=== PATIENT | female | born 1970 | race Caucasian/White ===

== ENCOUNTER 2019-10-26 15:12 | Outpatient (CLI) | payer BC, SELFPAY ==
--- NOTE | ~2019-10-26 | XR_ITS ---
XR lumbar spine 2-3V DATE: 10/26/2019 16:06 INDICATION: Spondylosis TECHNIQUE: AP and lateral and coned lateral lumbosacral views COMPARISON: 06/11/2017 MRI lumbar spine FINDINGS: There are 6 functional lumbar vertebrae. No fracture or bone destruction or spondylolisthesis. The lumbar pedicles are intact. There is moderate degenerative disease at L1-2 and mild degenerative disc disease of the remaining in terspaces. The sacroiliac joints are normal. IMPRESSION: Mild degenerative change Reviewed, dictated and finalized at location A. IMPRESSION: Mild degenerative change
--- NOTE | ~2019-10-26 | MR_ITS ---
EXAMINATION: MR lumbar spine wo con EXAM DATE: 10/26/2019 15:51 INDICATION: Low back pain, bilateral leg pain, fell off for 7 years ago. TECHNIQUE: Multi-sequential, multiplanar MR images of the lumbar spine were obtained without contrast . Sagittal T1, T2, T2 fat saturation images. Axial T2 weighted images. Comparison is made to prior examination from 06/11/2017. FINDINGS: There is mild disc disease L5-S1. Vertebral body and disc heights are well-maintained. The vertebral bodies are aligned in the AP dimension. The conus medullaris terminates at the L1/2 level a nd has normal signal intensity and morphology. There are no suspicious marrow signal abnormalities. Paraspinal soft tissue is unremarkable. Level by level evaluation: T12-L1: Disc does not extend beyond the endplate margin. Facet arthropathy: None. Neural foraminal stenosis: No stenosis. Central canal stenosis: No stenosis. L1-L2: Disc does not extend beyond the endplate margin. Facet arthropathy: Minimal. Neural foraminal stenosis: No stenosis. Central canal stenosis: No stenosis. L2-L3: Disc does not extend beyond the endplate margin. Facet arthropathy: Mild. Neural foraminal stenosis: No stenosis. Central canal stenosis: No stenosis. L3-L4: Disc does not extend beyond the endplate margin. Facet arthropathy: Mild. Neural foraminal stenosis: No stenosis. Central canal stenosis: No stenosis. L4-L5: Disc does not extend beyond the endplate margin. Facet arthropathy: Mild. Neural foraminal stenosis: No stenosis. Central canal stenosis: No stenosis. L5-S1: There is a mild diffuse disc bulge. Facet arthropathy: Mild. Neural foraminal stenosis: No stenosis. Central canal stenosis: No stenosis. IMPRESSION: 1. Mild lumbar spondylosis without stenosis. Reviewed, dictated and finalized at location A.
== END 2019-10-26 15:13 ==
PROVIDERS: Visit Provider Nurse Practitioner Adult Health
DX: M47.816 Spondylosis without myelopathy or radiculopathy, lumbar region (principal)
CPT/HCPCS: 72100; 72148

== ENCOUNTER 2020-01-11 10:23 | Emergency (ER) | payer BC, SELFPAY ==
--- NOTE | ~2020-01-11 | XR_ITS ---
EXAMINATION: XR chest 1V portable DATE: 01/11/2020 11:12 INDICATION: Shortness of breath and cough and fever. TECHNIQUE: A single frontal view of the chest was obtained. COMPARISON: Chest single view 06/25/2018, CT abdomen and pelvis 06/25/2018 FINDINGS: The chest demonstrates clear lungs without pneumonia, pleural effusion, or pneumothorax. Th e heart size is normal. IMPRESSION: 1. No acute cardiopulmonary disease. Reviewed, dictated and finalized at location A. 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
[2020-01-11 10:28] VITALS: BP 178/90; PULSE 87; RESP 19; TEMP 37.4; O2SAT 100
[2020-01-11 10:39] VITALS: PULSE 86
--- NOTE | 2020-01-11 10:40 | ECG_ITS ---
Measurements Intervals [place] Rate: 87 P: 30 OR: 147 QRS: 42 QRSD: 76 T: 50 QT: 379 QTc: 456 Interpretive Statements SINUS RHYTHM BASELINE ARTIFACT- I, II, III, AVR, AVL, AVF, V1-V4 BORDERLINE ECG Electronically Signed On 01-11-2020 11:23:21 TEAM SUPERVISOR by Moisés Mckeon D.O.
[2020-01-11 10:52] LABS: Basophils Absolute Auto 0.1 K/mm3 (0.0-0.1); Basophils Percent Auto 0.6 % (0.2-1.2); Eosinophils Absolute Auto 0.1 K/mm3 (0-0.3); Eosinophils Percent Auto 0.3 % (0-4.4); Hematocrit 31.5 % (37.0-47.0); Immature Granulocyte Absolute 0.06 K/mm3 (0.00-0.031); Immature Granulocyte Percent A 0.4 % (0-0.5); Lymphocytes Absolute Auto 1.75 K/mm3 (0.9-3.2); Lymphocytes Percent Auto 11.5 % (18.3-44.2); Mean Corpuscular HGB Conc 25.4 g/dl (32-36); Mean Corpuscular Hemoglobin 16.9 pg (26-34); Mean Corpuscular Volume 66.7 fl (80-100); Monocytes Absolute Auto 0.7 K/mm3 (0.1-0.6); Monocytes Percent Auto 4.5 % (2.6-8.5); Neutrophils Absolute Auto 12.6 K/mm3 (1.3-6.7); Neutrophils Percent Auto 82.7 % (45.5-73.1); Nucleated Red Blood Cells Absolute Auto 0.1 K/mm3 (0.0-0.012); Nucleated Red Blood Cells Perc 0.5 % (0.0-0.2); Platelet Count Result 572 k/mm3 (150-375); Red Blood Count 4.72 M/mm3 (4.2-5.4); Red Cell Distribution Width 24.7 % (11.5-14.5); White Blood Count 15.2 K/mm3 (4.5-10.0)
[2020-01-11 11:01] LABS: Anion Gap 10 mmol/L (8-16); Blood Urea Nitrogen 12 mg/dL (7-17); Calcium 8.9 mg/dL (8.4-10.2); Carbon Dioxide 29 mmol/L (22-30); Chloride 103 mmol/L (98-107); Estimated CRCL calculation 111 ml/min; Estimated Glomerular Filt Rate > 60; Glucose 86 mg/dL (65-105); Potassium 3.2 mmol/L (3.4-5.0); Sodium 142 mmol/L (137-145)
[2020-01-11 11:02] LABS: Anisocytosis 2+ (NORMAL); Hypochromasia 2+ (NORMAL); Platelet Estimate Increased (Adequate)
[2020-01-11 11:11] LABS: Glucose Point of Care 73 (65-105)
--- NOTE | 2020-01-11 11:52 | ED.SOB ---
HPI - SOB/Dyspnea General Chief Complaint: Shortness of Breath/Dyspnea Stated Complaint: fever, ST, lungs wheezing Time Seen by Provider: 01/11/20 10:36 History of Present Illness HPI Narrative: Patient is a 49-year-old female who presents ER with wheezing. Reports she began wheezing about 5 days ago. She has been taking steroids prescribed by her PCP. She has been using her inhaler with regularity. Reports its worse when she is exerting herself. She has been having fevers. She has had some sweating. No chest pain or chest pressure. She endorses sinus congestion. No known Covid contacts. No loss of taste or smell. Related Data Home Medications Medication Instructions Recorded Confirmed escitalopram oxalate 20 mg PO 01/11/20 lovastatin 20 mg PO 01/11/20 pregabalin 150 mg PO 01/11/20 trazodone 50 mg PO 01/11/20 Allergies Allergy/AdvReac Type Severity Reaction Status Date / Time atenolol Allergy Unknown Chest Pain Verified 12/23/18 20:18 Review of Systems Review of Systems: All systems reviewed & are unremarkable except as noted in HPI and below Constitutional: Constitutional: Denies chills, Reports fever(s) and Denies weakness ENT: Reports nasal congestion and Denies sore throat Cardiovascular: Cardiovascular: Denies chest pain and Denies radiating jaw, neck or arm pain Respiratory: Respiratory: Denies chest congestion, Reports cough, Reports dyspnea and Reports wheezing Gastrointestinal: Gastrointestinal: Denies abdominal pain, Denies nausea and Denies vomiting PMFSH Past Medical History Medical History (Updated 01/11/20 @ 11:56 by Ezio Chicas MD) Anxiety and depression Asthma Diabetes Elective Gallbladder attack GERD (gastroesophageal reflux disease) Heavy periods Has needed blood transfusions due to them in the past High triglycerides HLD (hyperlipidemia) HTN (hypertension) Iron deficiency anemia Obesity Family History Family History Mother Hypertension Asthma Family history of cataracts Grandparent Family history of Alzheimer's disease Family history of cardiovascular disease Family history of coronary artery disease Social History Social History Smoking packs per day: 1 Smoking cigarettes per day: 20.0 Years smoked: 20 Smoking pack-years: 20.00 Smoking status: Former smoker Alcohol intake: never Substance use: never Gender identity (if verbalized by the patient): Female Spiritual care concerns: No Agree to blood products: Yes Exam Narrative: Exam Narrative: GENERAL: Well-appearing, well-nourished, and in no acute distress. HEAD: Normocephalic, atraumatic. CHEST: Clear to auscultation. No respiratory distress. HEART: Regular rate and rhythm. Normal peripheral pulses. EXTREMITIES: Normal range of motion. No edema. NEURO: Alert and oriented x3. PSYCH: Normal mood and affect. Course Course Emergency Course: Informed of results. Will swab for Covid. Patient aware she should self isolate. Vital Signs Vital signs: Vital Signs Temperature 99.3 F 01/11/20 10:28 Pulse Rate 87 01/11/20 10:28 Respiratory Rate 19 01/11/20 10:28 Blood Pressure 178/90 H 01/11/20 10:28 Pulse Oximetry 100 01/11/20 10:28 Temperature 99.3 F 01/11/20 10:28 Pulse Rate 86 01/11/20 10:39 Respiratory Rate 19 01/11/20 10:28 Blood Pressure 178/90 H 01/11/20 10:28 Pulse Oximetry 100 01/11/20 10:28 MDM - SOB/Dyspnea Lab Data Result diagrams: 01/11/20 10:42 01/11/20 10:42 Labs: Lab Results 01/11/20 01/11/20 01/11/20 Range/Units 10:42 10:42 11:08 WBC 15.2 H (4.5-10.0) K/mm3 RBC 4.72 (4.2-5.4) M/mm3 Hgb 8.0 L (12.0-15.0) g/dL Hct 31.5 L (37.0-47.0) % MCV 66.7 L (80-100) fl MCH 16.9 L (26-34) pg MCHC 25.4 L (32-36) g/dl RDW 24.7 H (11.5-14.5)
[2020-01-11 12:11] VITALS: BP 148/75; PULSE 84; RESP 16; O2SAT 99
[2020-01-11 21:15] LABS: SARS-CoV-2 RNA PCR Negative
== END 2020-01-11 12:22 | disposition home or self-care (01) ==
PROVIDERS: Emergency Provider Emergency Medicine; PCP Nurse Practitioner Family
DX: B34.9 Viral infection, unspecified (principal); Z20.828 Contact with and (suspected) exposure to other viral communicable diseases; F41.9 Anxiety disorder, unspecified; F32.9 Major depressive disorder, single episode, unspecified; J45.909 Unspecified asthma, uncomplicated; E11.9 Type 2 diabetes mellitus without complications; K21.9 Gastro-esophageal reflux disease without esophagitis; E78.5 Hyperlipidemia, unspecified; I10 Essential (primary) hypertension; D50.9 Iron deficiency anemia, unspecified; E66.9 Obesity, unspecified; Z68.36 Body mass index [BMI] 36.0-36.9, adult; Z87.891 Personal history of nicotine dependence
CPT/HCPCS: 36415; 71045; 80048; 85025; 87635; 93005; 99284; C9803; U0003

== ENCOUNTER 2020-05-10 12:34 | Outpatient (CLI) | payer BC, SELFPAY ==
--- NOTE | ~2020-05-10 | XR_ITS ---
EXAMINATION: XR chest 2V 05/10/2020 13:09 INDICATION: Asthma. Shortness of breath. Recent Covid infection. PROCEDURE: 2 view chest COMPARISON: Comparison to multiple prior studies sequentially, with oldest reviewed study dated 08/05. FINDINGS: The lungs are clear. The cardiomediastinal silhouette is within normal limits. There are no pleural effusions. There is no pneumothorax suspected. IMPRESSION: 1: NO ACUTE CARDIOPULMONARY DISEASE. Reviewed, dictated and finalized at location A.
--- NOTE | 2020-05-13 09:40 | WPDPFTINT ---
PFT Interpretation This PFT met all criteria for ATS standards and reproducibility FEV/FVC post bronchodilator 77% FEV1 75% FVC 79% TLC 95% RV 97% RV/TLC 36% DLCO 70% when adjusted for alveolar volume but not adjusted for hemoglobin Flow volume loops were normal Impression: no significant obstruction or restriction is present. There is a mildly decreased diffusion capacity. In the absence of anemia or pulmonary hypertension intrinsic lung disease may still be present. Clinical correlation is advised.
--- NOTE | 2020-05-13 09:49 | WPDSIXMINUTE ---
Six Minute Walk Six Minute Walk: The patients O2 sats started at 98% on RA and dropped as low as 94% but later recovered to 95% at 6 minutes. Total walk distance 335.28 m Lila dyspnea score was not recorded conclusion: this patient does not qualify for home oxygen therapy
== END 2020-05-10 12:35 | disposition home or self-care (01) ==
LOC: ANHPFT 12:36
PROVIDERS: PCP Nurse Practitioner Family; Visit Provider Nurse Practitioner
DX: J45.909 Unspecified asthma, uncomplicated (principal)
CPT/HCPCS: 36415; 71046; 82785; 86003; 94060; 94618; 94726; 94729

== ENCOUNTER 2020-09-28 12:30 | Outpatient (CLI) | payer BC, SELFPAY ==
--- NOTE | ~2020-09-28 | US_ITS ---
EXAMINATION: US pelvic complete w TV DATE: 09/28/2020 14:10 INDICATION: Continuous spotting TECHNIQUE: Multiple transabdominal and endovaginal sonographic images of the pelvis were obtained. COMPARISON: 10/10/2017; CT on 06/25/2018 FINDINGS: The uterus measures 13 x 8.3 x 5.6 cm. There is a 5.3 x 3.9 x 4.6 calcified heterogeneous m ass of the uterus which likely reflects a degenerative fibroid given prior appearance on CT. The endo metrial complex appears to measure approximately 2.1 cm. The left ovary is not visualized however no left adnexal abnormality is seen. The right ovary measures 3.2 x 3.9 x 3.2 cm. There is normal vascul ar flow in the right ovary. There is no free fluid in the pelvis. IMPRESSION: 1. Degenerative fibroid of the uterus. 2. Possible endometrial thickening up to 2.1 cm although measurement is difficult due to the fibroid. Reviewed, dictated and finalized at location B. IMPRESSION: 1. Degenerative fibroid of the uterus. 2. Possible endometrial thickening up to 2.1 cm although measurement is difficu lt due to the fibroid.
--- NOTE | ~2020-09-28 | MM_ITS ---
EXAMINATION: MM screening terri BI w robson HISTORY: Screening TECHNIQUE: Craniocaudal and mediolateral oblique 3-D tomosynthesis images were obtained and synthetic 2-D images were generated. CAD analysis was submitted and interpreted. COMPARISON: 09/27/2018 BREAST PARENCHYMAL COMPOSITION: There are scattered areas of fibroglandular density. FINDINGS: There is no evidence of suspicious mass, calcification, or architectural distortion to sugg est malignancy in either breast. There has been no suspicious interval change. IMPRESSION: 1. No mammographic evidence of malignancy. 2. Recommend routine screening mammography in one year. BI-RADS Category 1: Negative Reviewed, dictated and finalized at location A.
== END 2020-09-28 12:31 ==
PROVIDERS: Visit Provider Obstetrics & Gynecology
DX: Z12.31 Encounter for screening mammogram for malignant neoplasm of breast (principal); N93.8 Other specified abnormal uterine and vaginal bleeding; D25.9 Leiomyoma of uterus, unspecified
CPT/HCPCS: 76830; 76856; 77063; 77067

== ENCOUNTER 2020-12-10 01:05 | Day surgery (SDC) | payer BC, SELFPAY ==
[2020-12-05 08:41] VITALS: BMI 34.9
[2020-12-10 06:30] VITALS: BP 146/85; PULSE 86; RESP 16; TEMP 36.8; O2SAT 100
[2020-12-10] MEDS: LACTATED RINGERS 1,000 ML 30 ML IV CONT (07:17)
[2020-12-10] MEDS: ACETAMINOPHEN 500 MG TABLET 1000 MG PO (07:19)
--- NOTE | 2020-12-10 07:24 | WPDHPUPDATE1 ---
History and Physical Update Update Date/Time: 12/10/20 07:24 History and Physical has been reviewed, including an updated exam of the patient. There are NO changes in the patient's condition. Risks, benefits, and alternatives have been discussed and questions answered. Patient agrees to proceed with procedure.
--- NOTE | 2020-12-10 07:24 | PM.HPGS ---
History of Present Illness History of Present Illness Consent: Risks, benefits, and alternatives have been discussed and questions answered. Patient agrees to proceed with procedure. Chief complaint: Post Menopausal Bleeding Narrative: Regina Howell is a 50 year old female with 3 months of daily spotting. Pelvic u/s showed thickened lining at 2.1 cm and a fibroid obscuring view. Recommend D&C hysteroscopy with possible myosure. Risks of infection, bleeding, and perforation. Also, reviewed possible difficulty entering cavity with prior ablation. Possible pathology reviewed. Agrees to proceed. Review of Systems Review of Systems: not repeated day of surgery; patient states no changes in status [facility] Past Medical History Medical History (Updated 12/10/20 @ 07:30 by Ana M Colbert MD) Anxiety and depression Asthma Diabetes Elective Gallbladder attack GERD (gastroesophageal reflux disease) Heavy periods Has needed blood transfusions due to them in the past High triglycerides HLD (hyperlipidemia) HTN (hypertension) Iron deficiency anemia Obesity Status post hysteroscopy Surgical History Surgical History (Updated 12/10/20 @ 07:29 by Ana M Colbert MD) S/P endometrial ablation Family History Family History Mother Hypertension Asthma Family history of cataracts Grandparent Family history of Alzheimer's disease Family history of cardiovascular disease Family history of coronary artery disease Social History Social History Smoking packs per day: 1 Smoking cigarettes per day: 20.0 Years smoked: 20 Smoking pack-years: 20.00 Smoking status: Former smoker Smoking end date: 02/16/03 Alcohol intake: never Substance use: never Substance use type: does not use Living arrangements: alone Gender identity (if verbalized by the patient): Female Spiritual care concerns: No Agree to blood products: Yes Meds Home Medications and Allergies Home Medications Medication Instructions Recorded Confirmed Type escitalopram oxalate 20 mg PO DAILY 01/11/20 12/10/20 History pregabalin 150 mg PO TID 01/11/20 12/10/20 History amlodipine 10 mg PO HS 12/05/20 12/10/20 History aspirin 81 mg PO HS 12/05/20 12/10/20 History carisoprodol 350 mg PO TID 12/05/20 12/10/20 History clonidine HCl 0.1 mg PO TID 12/05/20 12/10/20 History dapagliflozin [Farxiga] 10 mg PO DAILY 12/05/20 12/10/20 History fenofibrate 120 mg PO DAILY 12/05/20 12/10/20 History folic acid 1 mg PO DAILY 12/05/20 12/10/20 History furosemide 20 mg PO PRN PRN 12/05/20 12/05/20 History glimepiride 4 mg PO BID 12/05/20 12/10/20 History hydrocodone-acetaminophen [Malone] 1 tablet PO TID PRN 12/05/20 12/10/20 History icosapent ethyl [Vascepa] 2 g PO BID 12/05/20 12/10/20 History insulin aspart U-100 40 unit SUBCUT TID 12/05/20 12/10/20 History liraglutide [Victoza 2-Doroteo] 1.2 mg SUBCUT DAILY 12/05/20 12/10/20 History metformin 500 mg PO BID 12/05/20 12/10/20 History methotrexate sodium [Methotrexate 10 mg PO WEEKLY 12/05/20 12/10/20 History (Anti-Rheumatic)] nadolol 80 mg PO TID 12/05/20 12/10/20 History pantoprazole 40 mg PO HS 12/05/20 12/10/20 History rosuvastatin 40 mg PO 2XW 12/05/20 12/10/20 History tramadol 50 mg PO TID PRN 12/05/20 12/10/20 History Allergies Allergy/AdvReac Type Severity Reaction Status Date / Time atenolol Allergy Intermediate Chest Pain Verified 12/10/20 07:09 Vital Signs Vital Signs - 24 hr 12/10/20 06:30 Temperature 98.3 F Pulse Rate 86 Respiratory Rate 16 Blood Pressure 146/85 H Pulse Oximetry 100 Exam Const: General: healthy appearing and alert Orientation/consciousness: patient oriented x3 Resp: Effort & Inspection: normal respiratory effort Auscultation: clear to auscultation bilaterally Cardio: Rate: regular rate Rhythm: regular rhythm GI: GI Palp: Yes S
[2020-12-10 07:25] LABS: Anion Gap 13 mmol/L (8-16); Blood Urea Nitrogen 17 mg/dL (7-17); Calcium 9.7 mg/dL (8.4-10.2); Carbon Dioxide 26 mmol/L (22-30); Chloride 101 mmol/L (98-107); Estimated CRCL calculation 73 ml/min; Estimated Glomerular Filt Rate > 60; Glucose 127 mg/dL (65-110); Potassium 3.6 mmol/L (3.4-5.0); Sodium 140 mmol/L (137-145)
--- NOTE | 2020-12-10 07:37 | WPDANESEPPF ---
Anes - Initial Pre Proc Eval Procedure: Operation Date: 12/10/20 08:15 Proposed Procedures p Hysteroscopy with Dilation and Curettage, Myosure - Ana M Colbert MD Date/Time: 12/10/20 07:37 Surgeon: Ana M Colbert MD Pre Op Diagnosis: Post Menopausal Bleeding Patient Data Age: 50 Gender: F Height: 1.65 m Weight: 93.7 kg Last Vital Signs Temp 36.8 C 12/10/20 06:30 Pulse 86 12/10/20 06:30 Resp 16 12/10/20 06:30 BP 146/85 H 12/10/20 06:30 Pulse Ox 100 12/10/20 06:30 Allergies Allergy/AdvReac Type Severity Reaction Status Date / Time atenolol Allergy Intermediate Chest Pain Verified 12/10/20 07:09 Home Medications Medication Instructions Recorded Confirmed Type escitalopram oxalate 20 mg PO DAILY 01/11/20 12/10/20 History pregabalin 150 mg PO TID 01/11/20 12/10/20 History amlodipine 10 mg PO HS 12/05/20 12/10/20 History aspirin 81 mg PO HS 12/05/20 12/10/20 History carisoprodol 350 mg PO TID 12/05/20 12/10/20 History clonidine HCl 0.1 mg PO TID 12/05/20 12/10/20 History dapagliflozin [Farxiga] 10 mg PO DAILY 12/05/20 12/10/20 History fenofibrate 120 mg PO DAILY 12/05/20 12/10/20 History folic acid 1 mg PO DAILY 12/05/20 12/10/20 History glimepiride 4 mg PO BID 12/05/20 12/10/20 History hydrocodone-acetaminophen [[place]] 1 tablet PO TID PRN 12/05/20 12/10/20 History icosapent ethyl [Vascepa] 2 g PO BID 12/05/20 12/10/20 History insulin aspart U-100 40 unit SUBCUT TID 12/05/20 12/10/20 History liraglutide [Victoza 2-Doroteo] 1.2 mg SUBCUT DAILY 12/05/20 12/10/20 History metformin 500 mg PO BID 12/05/20 12/10/20 History methotrexate sodium [Methotrexate 10 mg PO WEEKLY 12/05/20 12/10/20 History (Anti-Rheumatic)] nadolol 80 mg PO TID 12/05/20 12/10/20 History pantoprazole 40 mg PO HS 12/05/20 12/10/20 History rosuvastatin 40 mg PO 2XW 12/05/20 12/10/20 History tramadol 50 mg PO TID PRN 12/05/20 12/10/20 History Laboratory Tests 12/10/20 07:01 Sodium 140 mmol/L mmol/L (137-145) Potassium 3.6 mmol/L mmol/L (3.4-5.0) Chloride 101 mmol/L mmol/L (98-107) Carbon Dioxide 26 mmol/L mmol/L (22-30) Anion Gap 13 mmol/L mmol/L (8-16) BUN 17 mg/dL mg/dL (7-17) Creatinine 0.90 mg/dL mg/dL (0.7-1.0) Estim Creat Clear Calc 73 ml/min ml/min Estimated GFR > 60 (59 - ) Glucose 127 mg/dL H mg/dL (65-110) Calcium 9.7 mg/dL mg/dL (8.4-10.2) Patient hx anesthesia problems: none Family hx anesthesia problems: none Results Review: All pre-operative results and documents have been reviewed as part of the pre-operative evaluation. [facility] Past Medical History Medical History Anxiety and depression Asthma Diabetes Elective Gallbladder attack GERD (gastroesophageal reflux disease) Heavy periods Has needed blood transfusions due to them in the past High triglycerides HLD (hyperlipidemia) HTN (hypertension) Iron deficiency anemia Obesity Status post hysteroscopy Surgical History Surgical History S/P endometrial ablation Family History Family History Mother Hypertension Asthma Family history of cataracts Grandparent Family history of Alzheimer's disease Family history of cardiovascular disease Family history of coronary artery disease Social History Social History Smoking packs per day: 1 Smoking cigarettes per day: 20.0 Years smoked: 20 Smoking pack-years: 20.00 Smoking status: Former smoker Smoking end date: 02/16/03 Alcohol intake: never Substance use: never Substance use type: does not use Living arrangements: alone Gender identity (if verbalized by the patient): Female Spiritual care concerns: No Agree to blood products: Yes [place] [facility] [place] Final PreProcedure
[2020-12-10] MEDS: LIDOCAINE HCL 1% PF 30 ML VIAL INFILTRATE (08:23)
--- NOTE | 2020-12-10 08:37 | P.OP_ITS ---
Procedure Note - Detailed Date of Procedure 12/10/20 Pre-op Diagnosis Abnormal uterine bleeding Post-op Diagnosis same Procedure Performed D&C hysteroscopy with MyoSure resection of posterior mass Surgeon Ana M Colbert MD Anesthesia MAC and local Findings The internal os is stenotic. The uterus sounds to 8cm. There is a mass filling the posterior 3rd of the endometrial cavity. Visually it appeared to be a fibroid that was sessile however upon resection it appeared to be more like a polyp. Description of Procedure The patient was taken to the operating room and placed under anesthesia in the dorsal lithotomy position. She was prepped and draped in the usual sterile fashion. [place] speculum was placed in the vagina, cervix was grasped on the anterior lip with a tenaculum, and cervix is injected with 1% lidocaine in each quadrant. The uterus is attempted to be sounded and internal cervical os stenosis is noted. The small dilator was attempted and unable to enter. The os Finders were opened in placed and the cervical os was able to be passed. The cervix was then serially dilated with [place]. The diagnostic hysteroscope was placed with the stated findings. The MyoSure device is opened and placed and under direct visualization the mass was removed in its entirety. The remainder of endometrium appeared grossly normal. The MyoSure device was removed and the medium sharp curette is used to curette the endometrium until a good uterine cry was noted in all areas. Minimal materials obtained. All instruments are removed. Patient is awakened from anesthesia and taken to recovery in stable condition. Sponge, needle, and instrument counts are correct per the OR staff. Fluid in 1500cc fluid out 1200cc plus what spilled on the floor. Estimated Blood Loss 5 Drains No Packing No Pathology yes (Endometrial shavings and curettings) Complications No immediate complications Condition stable Disposition PACU
[2020-12-10 08:44] VITALS: BP 113/63; PULSE 80; RESP 14; O2SAT 95
[2020-12-10 08:54] LABS: Glucose Point of Care 115 mg/dl (65-105)
[2020-12-10 09:10] VITALS: BP 127/77; PULSE 76; RESP 14
[2020-12-10] MEDS: oxyCODONE HCL (*CRX) 5 MG TAB IR PO (09:10)
[2020-12-10 09:35] VITALS: BP 127/78; PULSE 79; RESP 16
== END 2020-12-10 09:41 | disposition home or self-care (01) ==
PROVIDERS: Anesthesiology; PCP Nurse Practitioner Family; Visit Provider Obstetrics & Gynecology Gynecology
PROC: 0U5B8ZZ Destruction of Endometrium, Via Natural or Artificial Opening Endoscopic (ICD-10-PCS; CPT 58563; principal; 2020-12-10 08:15)
DX: N93.9 Abnormal uterine and vaginal bleeding, unspecified (principal); D25.0 Submucous leiomyoma of uterus; N85.8 Other specified noninflammatory disorders of uterus; Z79.82 Long term (current) use of aspirin; Z79.4 Long term (current) use of insulin; F41.8 Other specified anxiety disorders; J45.909 Unspecified asthma, uncomplicated; E11.9 Type 2 diabetes mellitus without complications; K21.9 Gastro-esophageal reflux disease without esophagitis; E78.1 Pure hyperglyceridemia; E72.3 Disorders of lysine and hydroxylysine metabolism; I10 Essential (primary) hypertension; D50.0 Iron deficiency anemia secondary to blood loss (chronic); Z87.891 Personal history of nicotine dependence; E66.9 Obesity, unspecified; Z68.34 Body mass index [BMI] 34.0-34.9, adult
CPT/HCPCS: 58561; 36415; 80048; 82948; 88305; A9270; J2704; J3010; J7030; J7120

== ENCOUNTER 2022-09-11 17:24 | Observation (INO) | payer OTHER, SELFPAY ==
[2022-09-11] VITALS (35 sets, daily range): BP systolic 129–151; BP diastolic 73–88; PULSE 71–84; RESP 12–19; TEMP 36.6–37.1; O2SAT 93–99; BMI 36.6
--- NOTE | ~2022-09-11 | XR_ITS ---
EXAMINATION: XR chest 2V 09/11/2022 18:13 INDICATION: Dizziness PROCEDURE: 2 view chest COMPARISON: Comparison to multiple prior studies sequentially, with oldest reviewed study dated 09/2014. FINDINGS: The lungs are clear. The cardiomediastinal silhouette is within normal limits. There are no pleural effusions. There is no pneumothorax suspected. IMPRESSION: 1: NO ACUTE CARDIOPULMONARY DISEASE. Reviewed, dictated and finalized at location A.
--- NOTE | 2022-09-11 17:28 | ECG_ITS ---
Measurements Intervals [place] Rate: 76 P: 14 ND: 182 QRS: 4 QRSD: 90 T: 59 QT: 417 QTc: 470 Interpretive Statements SINUS RHYTHM CONSIDER INFERIOR INFARCT, AGE INDETERMINATE BORDERLINE ST-T WAVE ABNORMALITY- HIGH LATERAL LEADS BASELINE ARTIFACT- I, III, AVR, AVL, AVF ABNORMAL ECG COMPARED TO ECG 01/11/2020 10:36:06 NO SIGNIFICANT CHANGES Electronically Signed On 09-11-2022 20:31:45 CDT by Moisés Mckeon D.O.
--- NOTE | 2022-09-11 19:13 | PC.NURSE ---
Patient report given to MARCEL Hutchins> All questions answered and care of patient transferred.
--- NOTE | 2022-09-11 19:30 | ED.DIZZY ---
HPI - Dizziness General Chief Complaint: Dizziness Stated Complaint: low BP Time Seen by Provider: 09/11/22 18:18 History of Present Illness HPI Narrative: Patient is a 52-year-old female with a history of asthma, diabetes, rheumatoid arthritis presenting with low blood pressure. Patient states that she has been feeling intermittently lightheaded with tingling in her face. States that she checked her blood pressure several times at home and was concerned that her systolics were in the 70s. She called her daughter who advised she come in for evaluation. Patient states that she randomly feels like she is wheezing but she otherwise denies current complaints. No chest pain or palpitations. No abdominal pain, vomiting, diarrhea. Reports mild swelling around both of her ankles. Also reports mild dysuria. Related Data Home Medications Medication Instructions Recorded Confirmed escitalopram oxalate 20 mg tablet 20 mg PO DAILY 01/11/20 09/16/22 pregabalin 150 mg capsule 150 mg PO TID 01/11/20 09/16/22 amlodipine 10 mg tablet 10 mg PO HS 12/05/20 09/16/22 aspirin 81 mg capsule 81 mg PO HS 12/05/20 09/16/22 carisoprodol 350 mg tablet 350 mg PO HS 12/05/20 09/16/22 clonidine HCl 0.1 mg tablet 0.1 mg PO TID 12/05/20 09/16/22 folic acid 1 mg tablet 1 mg PO DAILY 12/05/20 09/16/22 glimepiride 2 mg tablet 4 mg PO BID 12/05/20 09/16/22 hydrocodone 5 mg-acetaminophen 325 10 - 325 tablet PO TID PRN Pain 12/05/20 09/16/22 mg tablet insulin aspart U-100 100 unit/mL 50 unit subcut TID 12/05/20 09/16/22 (3 mL) subcutaneous pen liraglutide 0.6 mg/0.1 mL (18 mg/3 1.2 mg subcut DAILY 12/05/20 09/16/22 mL) subcutaneous pen injector (Victoza 2-Doroteo) metformin 500 mg tablet,extended 1,000 mg PO BID 12/05/20 09/16/22 release 24hr nadolol 80 mg tablet 80 mg PO TID 12/05/20 09/16/22 pantoprazole 40 mg tablet,delayed 40 mg PO HS 12/05/20 09/16/22 release rosuvastatin 40 mg tablet 40 mg PO 2XW 12/05/20 09/16/22 albuterol sulfate 2.5 mg/3 mL 2.5 mg inhalation Q6H PRN 03/28/21 09/16/22 (0.083 %) solution for nebulization Shortness Of Breath Or Wheezing ergocalciferol (vitamin D2) 1,250 1,250 mcg PO WEEKLY 03/28/21 09/16/22 mcg (50,000 unit) capsule ferrous sulfate 325 mg (65 mg 325 mg PO DAILY 03/28/21 09/16/22 iron) tablet (FeroSul) furosemide 20 mg tablet 10 mg PO QAM 03/28/21 09/16/22 mometasone-formoterol HFA 100 2 puff inhalation Q12H 03/28/21 09/16/22 mcg-5 mcg/actuation aerosol inhaler (Dulera) trazodone 50 mg tablet 50 mg PO QHS PRN Insomnia 03/28/21 09/16/22 hydroxychloroquine 200 mg tablet 200 mg PO DAILY 09/12/22 09/16/22 potassium chloride 10 mEq 10 meq PO DAILY 09/12/22 09/16/22 tablet,extended release melatonin 5 mg tablet 5 mg PO HS PRN Insomnia 09/16/22 09/16/22 Allergies Allergy/AdvReac Type Severity Reaction Status Date / Time atenolol Allergy Intermediate Chest Pain Verified 09/16/22 12:25 Review of Systems Review of Systems: All systems reviewed & are unremarkable except as noted in HPI and below PMFSH Past Medical History Medical History Anxiety and depression Asthma Diabetes Elective Gallbladder attack GERD (gastroesophageal reflux disease) Heavy periods Has needed blood transfusions due to them in the past High triglycerides HLD (hyperlipidemia) HTN (hypertension) Iron deficiency anemia Obesity Status post hysteroscopy Surgical History Surgical History S/P endometrial ablation Family History Family History Mother Hypertension Asthma Family history of cataracts Grandparent Family history of Alzheimer's disease Family history of cardiovascular disease Family history of coronary artery disease Social History Social History Smoking packs per day: 1
[2022-09-11] MEDS: LACTATED RINGERS 1,000 ML 999 ML IV CONT ×3 (20:17→22:53)
[2022-09-11 20:18] LABS: Basophils Percent Auto 0.4 % (0.2-1.2); Eosinophils Percent Auto 0.4 % (0-4.4); Hematocrit 38.6 % (37.0-47.0); Hemoglobin 12.8 g/dL (12.0-15.0); Immature Granulocyte Absolute 0.01 K/mm3 (0.00-0.031); Immature Granulocyte Percent A 0.1 % (0-0.5); Lymphocytes Absolute Auto 2.33 K/mm3 (0.9-3.2); Lymphocytes Percent Auto 25.9 % (18.3-44.2); Mean Corpuscular HGB Conc 33.2 g/dl (32-36); Mean Corpuscular Hemoglobin 28.3 pg (26-34); Mean Corpuscular Volume 85.4 fl (80-100); Mean Platelet Volume 11.6 fl (7.4-10.4); Monocytes Absolute Auto 0.8 K/mm3 (0.1-0.6); Monocytes Percent Auto 8.7 % (2.6-8.5); Neutrophils Absolute Auto 5.8 K/mm3 (1.3-6.7); Neutrophils Percent Auto 64.5 % (45.5-73.1); Platelet Count Result 148 k/mm3 (150-375); Red Blood Count 4.52 M/mm3 (4.2-5.4); Red Cell Distribution Width 12.8 % (11.5-14.5)
--- NOTE | 2022-09-11 20:20 | PC.NURSE ---
pt sts that she already has had orthostats
[2022-09-11 20:27] LABS: Magnesium 1.3 mg/dL (1.6-2.3)
[2022-09-11 20:29] LABS: Prothrombin Time 13.8 Seconds (11.1-14.7)
[2022-09-11 20:31] LABS: Partial Thromboplastin Time 35.2 SECONDS (22.3-36.8)
[2022-09-11 20:35] LABS: Appearance Urine Clear (Clear); Bacteria Urine None Seen /hpf; Bilirubin Urine Negative (Negative); Blood Urine 2+ (Negative); Color Urine Yellow (Yellow); Glucose Urine UA Negative (Negative); Ketones Urine Negative (Negative); Leukocyte Esterase Ur Trace LEU/UL (Negative); Need Manual Microscopic Reviewed; Nitrate Urine Negative (Negative); Non Pathogenic Casts >20; Protein Urine Negative (Negative); RBC Urine 51-100 /hpf (0-2); Specific Grav Ur 1.015 (1.001-1.035); Squamous Epithelial Cell Urine Moderate /hpf (Few); WBC Urine 0-5 /hpf; pH Urine 5.5 (5.0-9.0)
[2022-09-11 20:36] LABS: Add Urine Microscopic? YES
[2022-09-11 20:41] LABS: Troponin I < 0.012 ng/mL (0.000-0.034)
--- NOTE | 2022-09-11 21:10 | PC.NURSE ---
pharm called for medication. mom is at bedside.
[2022-09-11] MEDS: MAGNESIUM OXIDE 400 MG TABLET PO (21:39)
[2022-09-11 21:52] LABS: Glucose Point of Care 173 mg/dl (65-105)
--- NOTE | 2022-09-11 22:02 | PC.NURSE ---
K is 2.7 notified
[2022-09-11 22:04] LABS: Alanine Aminotransferase 21 U/L (6-35); Albumin Level 4.5 g/dL (3.5-5.1); Alkaline Phosphatase 90 U/L (38-126); Anion Gap 12 mmol/L (8-16); Aspartate Amino Transferase 26 U/L (14-36); Bilirubin,Total 0.5 mg/dL (0.2-1.3); Blood Urea Nitrogen 28 mg/dL (7-17); Calcium 9.1 mg/dL (8.4-10.2); Carbon Dioxide 38 mmol/L (22-30); Chloride 88 mmol/L (98-107); Estimated CRCL calculation 53 ml/min; Estimated Glomerular Filt Rate 43; Glucose 207 mg/dL (65-110); Potassium 2.7 mmol/L (3.4-5.0); Sodium 138 mmol/L (137-145)
[2022-09-11] MEDS: POTASSIUM CHLORIDE INJ 40 MEQ in SODIUM CHLORIDE 0.9% IV 500 ML 130 MEQ IVPB (22:22)
--- NOTE | 2022-09-11 22:22 | PM.IMHP ---
H&P: HPI History of Present Illness Date/Time: 09/11/22 22:22 Chief Complaint: SYNCOPE Narrative: This is a 52-year-old female with past medical history significant for obesity, hypertension, type diabetes mellitus, rheumatoid arthritis, GERD, iron deficiency anemia. Patient takes Lasix at home for bilateral ankle swelling she presents to the emergency room after having a syncopal episode and subsequent readings of her systolic blood pressure was in the 70s. Patient denies vision changes, no melena, no bright red blood per rectum, no hematemesis no coffee-ground emesis, no shortness of breath, no chest pain, no nausea, no vomiting, no diarrhea no abdominal pain. Preliminary workup was significant for potassium 2.7 chloride 88 bicarb 38 creatinine 1.6. EXAMINATION: XR chest 2V 09/11/2022 18:13 INDICATION: Dizziness PROCEDURE:? 2 view chest COMPARISON: Comparison to multiple prior studies sequentially, with oldest reviewed study dated? 04/23/2014. FINDINGS: The lungs are clear.? The cardiomediastinal silhouette is within normal limits.? There are no pleural effusions.? There is no pneumothorax suspected.? IMPRESSION: 1:? NO ACUTE CARDIOPULMONARY DISEASE. Review of Systems Review of Systems: Syncope, low blood pressure. Constitutional: Constitutional: Denies chills, Denies fatigue, Denies fever(s), Denies headache(s), Denies malaise and Denies night sweats Eyes: Eyes: Denies change in vision ENT: Denies dysphagia and Denies odynophagia Cardiovascular: Cardiovascular: Denies chest pain at rest, Reports syncope, Reports pedal edema, Reports lightheadedness, Denies radiating jaw, neck or arm pain, Denies palpitations and Denies dyspnea on exertion Respiratory: Respiratory: Denies chest congestion, Denies cough, Denies excessive phlegm production and Denies dyspnea on exertion Gastrointestinal: Gastrointestinal: Denies abdominal pain, Denies dyspepsia, Denies heartburn, Denies diarrhea and Denies nausea Genitourinary: Genitourinary: Denies dysuria Musculoskeletal: Musculoskeletal: Denies myalgias and Denies arthralgias Integumentary/Breasts: Skin/Breast: Denies rash Neurologic: Reports vertigo, Reports dizziness, Reports syncope, Denies focal weakness and Denies Sensory deficit (Neuro) Psychiatric: Psychiatric: Reports no additional psychiatric complaints and Reports as per HPI Endocrine: Endocrine: Denies cold intolerance, Denies excessive sweating, Denies heat intolerance, Denies polyphagia, Denies polyuria and Denies palpitations Hematologic/Lymphatic: Hematologic/Lymphatic: Reports no additional hematologic/lymphatic complaints and Reports as per HPI Allergic/Immunologic: Allergic/Immunologic: Reports no additional allergic/immunologic complaints and Reports as per HPI [facility] Past Medical History Medical History Anxiety and depression Asthma Diabetes Elective Gallbladder attack GERD (gastroesophageal reflux disease) Heavy periods Has needed blood transfusions due to them in the past High triglycerides HLD (hyperlipidemia) HTN (hypertension) Iron deficiency anemia Obesity Status post hysteroscopy Surgical History Surgical History S/P endometrial ablation Family History Family History Mother Hypertension Asthma Family history of cataracts Grandparent Family history of Alzheimer's disease Family history of cardiovascular disease Family history of coronary artery disease Social History Social History Smoking packs per day: 1 Smoking cigarettes per day: 20.0 Years smoked: 20 Smoking pack-years: 20.00 Smoking status: Former smoker Tobacco type: cigarettes Alcohol intake: never Substance use: never Substance use type: does not use Lack
[2022-09-11] MEDS: KETOROLAC 15 MG/ML VIAL (*BKC) IV PUSH (22:43)
[2022-09-11 22:53] LABS: Troponin I < 0.012 ng/mL (0.000-0.034)
--- NOTE | 2022-09-11 23:20 | PC.NURSE ---
pt report called to [facility]
--- NOTE | 2022-09-11 23:48 | ADMGEN ---
This patient, Regina Howell, was admitted to 3 [facility] Room 301-01. Patient/family oriented to hospital policies and general routines including ID bracelet, bed and alarms, visiting hours, pain management, procedures, bathroom and other care routines, personal items, smoking policy, room service/diet, and visiting hours. Information on how to activate the Rapid Response Team has been discussed. Patient/Family are encouraged to report perceived risks to care and to ask questions if they do not understand what they are told or what they should do.
[2022-09-11 23:53] LABS: Glucose Point of Care 231 mg/dl (65-105)
[2022-09-12] VITALS (16 sets, daily range): BP systolic 137–169; BP diastolic 67–86; PULSE 68–90; RESP 14–16; TEMP 35.9–36.7; O2SAT 96–98
[2022-09-12] MEDS: HYDROcodone/acetaminophen (*CRX) 10-325 MG TABLET 1 TAB PO ×2 (05:45→20:46)
[2022-09-12 07:33] LABS: Basophils Percent Auto 0.2 % (0.2-1.2); Eosinophils Percent Auto 0.5 % (0-4.4); Hematocrit 35.2 % (37.0-47.0); Hemoglobin 11.8 g/dL (12.0-15.0); Immature Granulocyte Absolute 0.02 K/mm3 (0.00-0.031); Immature Granulocyte Percent A 0.3 % (0-0.5); Lymphocytes Percent Auto 28.1 % (18.3-44.2); Mean Corpuscular HGB Conc 33.5 g/dl (32-36); Mean Corpuscular Hemoglobin 28.6 pg (26-34); Mean Corpuscular Volume 85.2 fl (80-100); Mean Platelet Volume 11.9 fl (7.4-10.4); Monocytes Absolute Auto 0.6 K/mm3 (0.1-0.6); Monocytes Percent Auto 9.9 % (2.6-8.5); Neutrophils Absolute Auto 3.7 K/mm3 (1.3-6.7); Platelet Count Result 135 k/mm3 (150-375); Red Blood Count 4.13 M/mm3 (4.2-5.4); Red Cell Distribution Width 12.7 % (11.5-14.5); White Blood Count 6.1 K/mm3 (4.5-10.0)
[2022-09-12 07:49] LABS: Blood Urea Nitrogen 20 mg/dL (7-17); Calcium 8.9 mg/dL (8.4-10.2); Carbon Dioxide > 40 mmol/L (22-30); Chloride 93 mmol/L (98-107); Estimated CRCL calculation 74 ml/min; Estimated Glomerular Filt Rate > 60; Glucose 292 mg/dL (65-110); Magnesium 1.3 mg/dL (1.6-2.3); Potassium 2.7 mmol/L (3.4-5.0); Sodium 140 mmol/L (137-145)
[2022-09-12] MEDS: FLUTICASONE/SALMETEROL 115-21 MCG INHALER 1 PUFF 2 PUFF INHALATION ×2 (08:36→19:56)
[2022-09-12 08:37] LABS: Glucose Point of Care 287 mg/dl (65-105)
[2022-09-12] MEDS: POTASSIUM CHLORIDE INJ 40 MEQ in SODIUM CHLORIDE 0.9% IV 500 ML 130 MEQ IVPB (09:22)
[2022-09-12] MEDS: MAGNESIUM SULFATE 3GM/D5W100ML 3 GM/100 ML BAG IVPB (09:22)
[2022-09-12] MEDS: nadoloL 20 MG TABLET 80 MG PO ×3 (09:23→17:03)
[2022-09-12] MEDS: FOLIC ACID 1 MG TABLET PO (09:24)
[2022-09-12] MEDS: FERROUS SULFATE 325 MG TABLET DR BY MOUTH (09:24)
[2022-09-12] MEDS: HYDROXYCHLOROQUINE SULFATE 200 MG TABLET PO (09:24)
[2022-09-12] MEDS: PREGABALIN (*CRX) 75 MG CAPSULE 150 MG PO ×3 (09:24→17:10)
[2022-09-12] MEDS: MAGNESIUM OXIDE 400 MG TABLET PO (09:24)
[2022-09-12] MEDS: POTASSIUM CHLORIDE 20 MEQ PACKET (FOR LIQUID) 40 MEQ PO ×2 (09:25→17:04)
[2022-09-12] MEDS: INSULIN ASPART (*BKC) 100 UNITS/ML SUB-Q ×4 (09:25→20:52)
[2022-09-12] MEDS: SODIUM CHLORIDE 0.9% IV 1,000 ML 100 ML IV CONT (09:37)
[2022-09-12 11:33] LABS: Glucose Point of Care 259 mg/dl (65-105)
[2022-09-12] MEDS: KETOROLAC 15 MG/ML VIAL (*BKC) IV PUSH (12:27)
[2022-09-12] MEDS: POTASSIUM CHLORIDE 20 MEQ ER TABLET 40 MEQ PO (12:28)
[2022-09-12] MEDS: LORATADINE 10 MG TABLET PO (12:28)
--- NOTE | 2022-09-12 13:08 | PCCCNOTE ---
On 09/12/22, the student, [Mami Huston ], provided care and completed [facility] documentation on this patient. I have reviewed the student's documentation and agree with the findings.
--- NOTE | 2022-09-12 14:31 | PM.IMPN ---
Progress Note: A&P Assessment and Plan (1) Postural dizziness with near syncope: Code(s): R42 - Dizziness and giddiness; R55 - Syncope and collapse Status: Acute Assessment and Plan: Place in observation Likely secondary to the use of Lasix Patient received 1 L of NS bolus in emergency room Continue to replace as needed Hold Lasix (2) GERD (gastroesophageal reflux disease): Code(s): K21.9 - Gastro-esophageal reflux disease without esophagitis Status: Acute Assessment and Plan: Continue Protonix 40 mg p.o. daily (3) Obesity: Code(s): E66.9 - Obesity, unspecified Status: Acute Assessment and Plan: Calorie restricted diet (4) Asthma: Code(s): J45.909 - Unspecified asthma, uncomplicated Status: Acute Assessment and Plan: Patient complains of wheezing with activity. No wheezing heard at rest. Encouraged use of p.r.n. albuterol inhaler as needed. Lungs are clear throughout bilateral lobes. (5) Electrolyte abnormality: Code(s): E87.8 - Other disorders of electrolyte and fluid balance, not elsewhere classified Status: Acute Assessment and Plan: Potassium 2.7 on admission, Mag 1.3. Replacing electrolytes. Recheck BMP this afternoon. Upon resolution right electrolytes patient can discharge home tomorrow. Subjective Date/time seen: 09/12/22 14:31 Interval history: HPI obtained from chart: This is a 52-year-old female with past medical history significant for obesity, hypertension, type diabetes mellitus, rheumatoid arthritis, GERD, iron deficiency anemia.? Patient takes Lasix at home for bilateral ankle swelling she presents to the emergency room after having a syncopal episode and subsequent readings of her systolic blood pressure was in the 70s.? Patient denies vision changes, no melena, no bright red blood per rectum, no hematemesis no coffee-ground emesis, no shortness of breath, no chest pain, no nausea, no vomiting, no diarrhea no abdominal pain.? Preliminary workup was significant for potassium 2.7 chloride 88 bicarb 38 creatinine 1.6. Interval history: 09/12-patient is seen resting in bed. She states that she has generalized cramping to her both lower legs. Her electrolytes continue to be low. Replacing her potassium and magnesium now with a repeat BMP this afternoon. Her creatinine has recovered and is now 0.9. She also says that she has asthma at baseline and has been having wheezes with activity. On assessment she has no wheeze but I encouraged her to use her p.r.n. albuterol inhalers as needed. Plan she also has a headache for which she is requesting Toradol. Since her creatinine has resolved will give 1 time dose. She denies dizziness. The reason she came to the hospital was because her blood pressure was low when she would stand. She says that her appetite has not been the best and she has not been taking a lot of fluid intake. Her PCP has told her to take her Lasix at home p.r.n. as needed for swelling and her potassium as needed. She feels frustrated with this because she does not know how often she needs to be taking it. Expected her GIORGI and hypotension is related to over diuresis and electrolyte depletion. Will observe overnight and once resolution of electrolytes patient can discharge home. Review of Systems Review of Systems: All systems reviewed & are unremarkable except as noted in HPI and below Exam Narrative: General: well-nourished, well-appearing 52-year-old female, sitting up in bed, comfortable, NARD Neuro: awake, alert and oriented x4, speech clear, no focal neuro deficits noted HEENMT: normocephalic, atraumatic, EOMI, sclerae anicteric, moist oral mucosa Respiratory: Clear to auscultation bilaterally without crackles, rhonchi or wheezes, nonlabored breathing Cardio: regular rate, regular rhythm with S1-S2 Abdomen: nondistended, normoactive bowel sounds, soft, nontender to palpation Extremities: no
[2022-09-12] MEDS: PROCHLORPERAZINE EDISYLATE 10 MG/2 ML VIAL IV PUSH (15:15)
[2022-09-12 15:33] LABS: Blood Urea Nitrogen 19 mg/dL (7-17); Carbon Dioxide > 40 mmol/L (22-30); Chloride 92 mmol/L (98-107); Estimated CRCL calculation 62 ml/min; Estimated Glomerular Filt Rate 52; Glucose 287 mg/dL (65-110); Potassium 3.3 mmol/L (3.4-5.0); Sodium 138 mmol/L (137-145)
[2022-09-12 16:59] LABS: Glucose Point of Care 250 mg/dl (65-105)
[2022-09-12] MEDS: PANTOPRAZOLE 40 MG TABLET PO (20:44)
[2022-09-12] MEDS: ASPIRIN 81 MG ENTERIC TABLET PO (20:45)
[2022-09-12] MEDS: traZODone HCL 50 MG TABLET PO (20:45)
[2022-09-12] MEDS: carisoprodoL (*CRX) 350 MG TABLET PO (20:45)
[2022-09-12 21:35] LABS: Glucose Point of Care 336 mg/dl (65-105)
[2022-09-13] VITALS: PULSE 66
[2022-09-13 01:48] LABS: Glucose Point of Care 225 mg/dl (65-105)
[2022-09-13 02:01] VITALS: BP 122/65; PULSE 68; RESP 16; TEMP 36.1; O2SAT 97
[2022-09-13 04:00] VITALS: PULSE 60
[2022-09-13 06:00] VITALS: BP 137/73; PULSE 66; RESP 16; TEMP 36; O2SAT 97
[2022-09-13 07:05] LABS: Anion Gap 7 mmol/L (8-16); Blood Urea Nitrogen 16 mg/dL (7-17); Calcium 9.7 mg/dL (8.4-10.2); Carbon Dioxide 35 mmol/L (22-30); Chloride 96 mmol/L (98-107); Estimated CRCL calculation 83 ml/min; Estimated Glomerular Filt Rate > 60; Glucose 256 mg/dL (65-110); Potassium 3.1 mmol/L (3.4-5.0); Sodium 138 mmol/L (137-145)
[2022-09-13] MEDS: HYDROcodone/acetaminophen (*CRX) 10-325 MG TABLET 1 TAB PO (07:45)
[2022-09-13] MEDS: FOLIC ACID 1 MG TABLET PO (07:47)
[2022-09-13] MEDS: nadoloL 20 MG TABLET 80 MG PO (07:47)
[2022-09-13] MEDS: HYDROXYCHLOROQUINE SULFATE 200 MG TABLET PO (07:48)
[2022-09-13] MEDS: FERROUS SULFATE 325 MG TABLET DR BY MOUTH (07:48)
[2022-09-13] MEDS: LORATADINE 10 MG TABLET PO (07:51)
[2022-09-13] MEDS: PREGABALIN (*CRX) 75 MG CAPSULE 150 MG PO (07:51)
[2022-09-13 08:00] VITALS: PULSE 69
--- NOTE | 2022-09-13 08:18 | PM.IMPN ---
Progress Note: A&P Assessment and Plan (1) Postural dizziness with near syncope: Code(s): R42 - Dizziness and giddiness; R55 - Syncope and collapse Status: Acute Assessment and Plan: Place in observation Likely secondary to the use of Lasix Patient received 1 L of NS bolus in emergency room Continue to replace as needed Hold Lasix (2) GERD (gastroesophageal reflux disease): Code(s): K21.9 - Gastro-esophageal reflux disease without esophagitis Status: Acute Assessment and Plan: Continue Protonix 40 mg p.o. daily (3) Obesity: Code(s): E66.9 - Obesity, unspecified Status: Acute Assessment and Plan: Calorie restricted diet (4) Asthma: Code(s): J45.909 - Unspecified asthma, uncomplicated Status: Acute Assessment and Plan: Patient complains of wheezing with activity. No wheezing heard at rest. Encouraged use of p.r.n. albuterol inhaler as needed. Lungs are clear throughout bilateral lobes. (5) Electrolyte abnormality: Code(s): E87.8 - Other disorders of electrolyte and fluid balance, not elsewhere classified Status: Acute Assessment and Plan: Potassium 2.7 on admission, Mag 1.3. Replacing electrolytes. Recheck BMP this afternoon. Upon resolution right electrolytes patient can discharge home tomorrow. Plan Creatinine normalized Potassium improved. 3.1 this morning. Will give another 80 meq of PO K. Can d/c home with instructions to hold lasix and continue Potassium 40 meq BID will appropriate follow up PCP. Subjective Date/time seen: 09/13/22 08:18 Interval history: HPI obtained from chart: This is a 52-year-old female with past medical history significant for obesity, hypertension, type diabetes mellitus, rheumatoid arthritis, GERD, iron deficiency anemia.? Patient takes Lasix at home for bilateral ankle swelling she presents to the emergency room after having a syncopal episode and subsequent readings of her systolic blood pressure was in the 70s.? Patient denies vision changes, no melena, no bright red blood per rectum, no hematemesis no coffee-ground emesis, no shortness of breath, no chest pain, no nausea, no vomiting, no diarrhea no abdominal pain.? Preliminary workup was significant for potassium 2.7 chloride 88 bicarb 38 creatinine 1.6. Interval history: 09/12-patient is seen resting in bed. She states that she has generalized cramping to her both lower legs. Her electrolytes continue to be low. Replacing her potassium and magnesium now with a repeat BMP this afternoon. Her creatinine has recovered and is now 0.9. She also says that she has asthma at baseline and has been having wheezes with activity. On assessment she has no wheeze but I encouraged her to use her p.r.n. albuterol inhalers as needed. Plan she also has a headache for which she is requesting Toradol. Since her creatinine has resolved will give 1 time dose. She denies dizziness. The reason she came to the hospital was because her blood pressure was low when she would stand. She says that her appetite has not been the best and she has not been taking a lot of fluid intake. Her PCP has told her to take her Lasix at home p.r.n. as needed for swelling and her potassium as needed. She feels frustrated with this because she does not know how often she needs to be taking it. Expected her GIORGI and hypotension is related to over diuresis and electrolyte depletion. Will observe overnight and once resolution of electrolytes patient can discharge home. 09/13: Patient seemed today this morning and is feeling great. She is ready to discharge. Potassium was 3.1 this morning and gave her an additional 80 mEq of potassium orally. We will discharge her and have her take another 40 tomorrow in the morning and in the evening. I asked that she follows up with her PCP this week and continue to hold her Lasix. Review of Systems Review of Systems: All systems reviewed & are unr
[2022-09-13] MEDS: FLUTICASONE/SALMETEROL 115-21 MCG INHALER 1 PUFF 2 PUFF INHALATION (08:29)
[2022-09-13] MEDS: INSULIN ASPART (*BKC) 100 UNITS/ML SUB-Q ×2 (09:16→12:05)
[2022-09-13] MEDS: POTASSIUM CHLORIDE 20 MEQ ER TABLET 80 MEQ PO (09:17)
--- NOTE | 2022-09-13 11:07 | PM.DS ---
DS: Admitting Diagnosis Discharge Date ThursdaySeptember 13 Admitting Diagnosis Hypokalemia, weakness, muscle cramps DS: Discharge Diagnosis Discharge Diagnosis (1) Postural dizziness with near syncope: Code(s): R42 - Dizziness and giddiness; R55 - Syncope and collapse Status: Acute Assessment and Plan: Place in observation Likely secondary to the use of Lasix Patient received 1 L of NS bolus in emergency room Continue to replace as needed Hold Lasix (2) GERD (gastroesophageal reflux disease): Code(s): K21.9 - Gastro-esophageal reflux disease without esophagitis Status: Acute Assessment and Plan: Continue Protonix 40 mg p.o. daily (3) Obesity: Code(s): E66.9 - Obesity, unspecified Status: Acute Assessment and Plan: Calorie restricted diet (4) Asthma: Code(s): J45.909 - Unspecified asthma, uncomplicated Status: Acute Assessment and Plan: Patient complains of wheezing with activity. No wheezing heard at rest. Encouraged use of p.r.n. albuterol inhaler as needed. Lungs are clear throughout bilateral lobes. (5) Electrolyte abnormality: Code(s): E87.8 - Other disorders of electrolyte and fluid balance, not elsewhere classified Status: Acute Assessment and Plan: Potassium 2.7 on admission, Mag 1.3. Replacing electrolytes. Recheck BMP this afternoon. Upon resolution right electrolytes patient can discharge home tomorrow. Plan Creatinine normalized Potassium improved. 3.1 this morning. Will give another 80 meq of PO K. Can d/c home with instructions to hold lasix and continue Potassium 40 meq BID will appropriate follow up PCP. DS: Summary Hospital Course Reason for hospitalization: Hypokalemia, muscle cramps, low blood pressure Hospital Course: This is a 52-year-old female with past medical history significant for obesity, hypertension, type diabetes mellitus, rheumatoid arthritis, GERD, iron deficiency anemia.? Patient takes Lasix at home for bilateral ankle swelling she presents to the emergency room after having a syncopal episode and subsequent readings of her systolic blood pressure was in the 70s.? Patient denies vision changes, no melena, no bright red blood per rectum, no hematemesis no coffee-ground emesis, no shortness of breath, no chest pain, no nausea, no vomiting, no diarrhea no abdominal pain.? Preliminary workup was significant for potassium 2.7 chloride 88 bicarb 38 creatinine 1.6. Interval history: 09/12-patient is seen resting in bed.? She states that she has generalized cramping to her both lower legs.? Her electrolytes continue to be low.? Replacing her potassium and magnesium now with a repeat BMP this afternoon.? Her creatinine has recovered and is now 0.9.? She also says that she has asthma at baseline and has been having wheezes with activity.? On assessment she has no wheeze but I encouraged her to use her p.r.n. albuterol inhalers as needed.? Plan she also has a headache for which she is requesting Toradol.? Since her creatinine has resolved will give 1 time dose.? She denies dizziness.? The reason she came to the hospital was because her blood pressure was low when she would stand.? She says that her appetite has not been the best and she has not been taking a lot of fluid intake.? Her PCP has told her to take her Lasix at home p.r.n. as needed for swelling and her potassium as needed.? She feels frustrated with this because she does not know how often she needs to be taking it. Expected her GIORGI and hypotension is related to over diuresis and electrolyte depletion.? Will observe overnight and once resolution of electrolytes patient can discharge home. 09/13:? Patient seemed today this morning and is feeling great.? She is ready to discharge.? Potassium was 3.1 this morning and gave her an additional 80 mEq of potassium orally.? We will discharge her and have her take another 40 tomorrow in the morning and in the evening.? I
[2022-09-13 11:30] LABS: Magnesium 1.8 mg/dL (1.6-2.3)
--- NOTE | 2022-09-13 11:52 | PC.NURSE ---
Home Medications returned to Patient.
[2022-09-13 11:57] LABS: Glucose Point of Care 373 mg/dl (65-105)
[2022-09-13 12:00] VITALS: PULSE 66
== END 2022-09-13 12:51 | disposition home or self-care (01) ==
LOC: ANHED 19:16 → ANH3MEDSUR 09-12 14:11
PROVIDERS: Nurse Practitioner Acute Care; Admitting Provider Internal Medicine; Emergency Provider Emergency Medicine; PCP Nurse Practitioner Family; Visit Provider Student in an Organized Health Care Education/Training Program
DX: R42 Dizziness and giddiness (principal); R55 Syncope and collapse; K21.9 Gastro-esophageal reflux disease without esophagitis; E66.9 Obesity, unspecified; Z68.36 Body mass index [BMI] 36.0-36.9, adult; J45.909 Unspecified asthma, uncomplicated; E87.8 Other disorders of electrolyte and fluid balance, not elsewhere classified; R20.2 Paresthesia of skin; R30.0 Dysuria; E11.9 Type 2 diabetes mellitus without complications; F41.9 Anxiety disorder, unspecified; I10 Essential (primary) hypertension; F32.A Depression, unspecified; E78.2 Mixed hyperlipidemia; D50.9 Iron deficiency anemia, unspecified; E87.6 Hypokalemia; R94.31 Abnormal electrocardiogram [ECG] [EKG]; M06.9 Rheumatoid arthritis, unspecified; M25.472 Effusion, left ankle; M25.471 Effusion, right ankle; Z87.891 Personal history of nicotine dependence; Z79.51 Long term (current) use of inhaled steroids; Z79.82 Long term (current) use of aspirin; Z79.84 Long term (current) use of oral hypoglycemic drugs; Z79.891 Long term (current) use of opiate analgesic; Z79.4 Long term (current) use of insulin; Z79.85 Long-term (current) use of injectable non-insulin antidiabetic drugs; Z79.899 Other long term (current) drug therapy; Z82.49 Family history of ischemic heart disease and other diseases of the circulatory system; Z82.5 Family history of asthma and other chronic lower respiratory diseases
CPT/HCPCS: 36415; 71046; 80048; 80053; 81001; 82948; 83735; 84484; 85025; 85610; 85730; 93005; 94640; 96361; 96374; 96375; 99285; A9270; G0378; G0379; J0780; J1815; J1885; J3475; J3480; J7030; J7040; J7120

== ENCOUNTER 2022-09-22 00:58 | Day surgery (SDC) | payer OTHER, SELFPAY ==
[2022-09-16 12:31] VITALS: BMI 38.2
--- NOTE | 2022-09-16 12:42 | PC.NURSE ---
Report to the Outpatient Waiting Room, entrance under the green pavilion located off [facility], at time 1045 on date 09/22/22. Planned Procedure Time: 1245. Time changes happen often and if your time is changed the preop area will call you the afternoon before. - You and your visitor will be asked to self-screen and do not enter if you have any COVID symptoms. - A mask is optional within the hospital at this time. Patients may have clear liquids (water, carbonated beverages, clear teas, apple juice) until 3 hours prior to surgery with a maximum of 20 ounces. - No food from midnight until time of surgery Take the following medications with a SIP of water the morning of surgery: INHALERS, CLONIDINE, ESCITALOPRAM, NADOLOL, PREGABALIN, 1/2 DOSE INSULIN DO NOT STOP ANY OF YOUR OTHER PRESCRIPTION MEDICATIONS PRIOR TO SURGERY ?EXCEPT THE FOLLOWING Medications to discontinue per physician: VITAMINS/SUPPLEMENTS Date to take last dose: 09/18/[address] CALVILLO REGARDING ASPIRIN Please no make-up, nail mongolian, hairspray, perfume, deodorant, or body powder the day of surgery. No jewelry (including any body piercings) or valuables the day of surgery, leave them at home. Please take a shower or bath the night before, or the morning of, surgery with an antibacterial soap. Wear comfortable, loose fitting clothing. - Jewelry must be removed prior to entering the operating room. Rings and piercings that are not removed may be cut off. - The hospital will not accept responsibility for valuables. - Please leave all valuables, including medications, at home the day of surgery. If you are going home after surgery, a licensed tank truck driver must drive you home. - NO public transportation without another adult if you receive anesthesia. - We recommend that an adult stay with you for 24 hours following discharge. - We also recommend that you do not drive, make important decision, drink alcoholic beverages, or take any drugs that were not prescribed by your health care provider for at least 24 hours after your discharge time. Follow any additional instructions given to you from your surgeon. If you or anyone in your household have experienced Covid symptoms in the past week, please notify your surgeon or the nurse liaison at the phone number below for possible testing. Telephone instructions given to PT - JOSE BULLOCK and asked if any additional questions and then verbalized understanding. Patient advised to call surgeon office or pre surgery nurse liaison [phone] if any additional questions.
--- NOTE | 2022-09-22 07:42 | WPDHPUPDATE1 ---
History and Physical Update Update Date/Time: 09/22/22 07:42 History and Physical has been reviewed, including an updated exam of the patient. There are NO changes in the patient's condition. Risks, benefits, and alternatives have been discussed and questions answered. Patient agrees to proceed with procedure.
--- NOTE | 2022-09-22 07:42 | PM.HPGS ---
History of Present Illness History of Present Illness Consent: Risks, benefits, and alternatives have been discussed and questions answered. Patient agrees to proceed with procedure. Chief complaint: post menopausal bleeding Narrative: Regina Howell is a 52 year old female who presented to the office December of 2021 reporting daily spotting for a year. Patient had undergone a D&C hysteroscopy in November of 2020 with benign findings. Phone call from June of 2021 the patient stated she had no bleeding for 6 months but then had heavy bleeding for her cycle in June of 2021. The patient was given Lysteda and instructed follow-up. Patient did not follow-up until December of 2021 where she then stated she had had no further heavy menses but had had daily spotting for approximately a year. It was recommended to proceed with ultrasound and repeat hysteroscopy. Patient did not go for her ultrasound. She did not return until August of 2022 where she was then scheduled for hysteroscopy for suspected postmenopausal bleeding. The risks of infection, bleeding, perforation, and possible pathology are reviewed. Patient voiced understanding and agreed to proceed. Review of Systems Review of Systems: not repeated day of surgery; patient states no changes in status [facility] Past Medical History Medical History (Updated 09/22/22 @ 07:51 by Ana M Colbert MD) Anxiety and depression Asthma Diabetes Elective GERD (gastroesophageal reflux disease) High triglycerides HLD (hyperlipidemia) HTN (hypertension) Iron deficiency anemia (normal spontaneous vaginal delivery) x2 Obesity Status post hysteroscopy 2015 and 2020 Surgical History Surgical History (Updated 09/22/22 @ 07:49 by Ana M Colbert MD) S/P endometrial ablation 2018 Family History Family History Mother Hypertension Asthma Family history of cataracts Grandparent Family history of Alzheimer's disease Family history of cardiovascular disease Family history of coronary artery disease Social History Social History Smoking packs per day: 1 Smoking cigarettes per day: 20.0 Years smoked: 15 Smoking pack-years: 15.00 Smoking status: Former smoker Tobacco type: cigarettes Smoking end date: 02/16/02 Alcohol intake: never Substance use: never Substance use type: does not use Lack of Transportation: YES Lack of Food: Never True Current Housing: I Have Housing Concerned About Future Housing: No Difficulty Paying Gas/Electric Bills: YES Difficulty Paying for Meds: YES Currently Unemployed: No Education: High School Diploma/GED Difficulty w/ Childcare or Family Care: No Living arrangements: alone Gender identity (if verbalized by the patient): Female Spiritual care concerns: No Agree to blood products: Yes Meds Home Medications and Allergies Home Medications Medication Instructions Recorded Confirmed Type escitalopram oxalate 20 mg tablet 20 mg PO DAILY 01/11/20 09/16/22 History pregabalin 150 mg capsule 150 mg PO TID 01/11/20 09/16/22 History amlodipine 10 mg tablet 10 mg PO HS 12/05/20 09/16/22 History aspirin 81 mg capsule 81 mg PO HS 12/05/20 09/16/22 History carisoprodol 350 mg tablet 350 mg PO HS 12/05/20 09/16/22 History clonidine HCl 0.1 mg tablet 0.1 mg PO TID 12/05/20 09/16/22 History folic acid 1 mg tablet 1 mg PO DAILY 12/05/20 09/16/22 History glimepiride 2 mg tablet 4 mg PO BID 12/05/20 09/16/22 History hydrocodone 5 mg-acetaminophen 325 10 - 325 tablet PO TID PRN Pain 12/05/20 09/16/22 History mg tablet insulin aspart U-100 100 unit/mL 50 unit subcut TID 12/05/20 09/16/22 History (3 mL) subcutaneous pen liraglutide 0.6 mg/0.1 mL (18 mg/3 1.2 mg subcut DAILY 12/05/20 09/16/22 History mL) subcutaneous pen injector (Victoza 2-Doroteo) metformin 500 mg
[2022-09-22 10:20] VITALS: BP 145/76; PULSE 92; RESP 16; TEMP 36.9; O2SAT 98
--- NOTE | 2022-09-22 10:41 | WPDANESEPPF ---
Anes - Initial Pre Proc Eval Procedure: Operation Date: 09/22/22 12:45 Proposed Procedures p Hysteroscopy Dilation and Curettage - Ana M Colbert MD Date/Time: 09/22/22 10:41 Surgeon: Ana M Colbert MD Pre Op Diagnosis: post menopausal bleeding Patient Data Age: 52 Gender: F Height: 1.65 m Weight: 107.4 kg Last Vital Signs Temp 36.9 C 09/22/22 10:20 Pulse 92 09/22/22 10:20 Resp 16 09/22/22 10:20 BP 145/76 H 09/22/22 10:20 Pulse Ox 98 09/22/22 10:20 O2 Del Method Room Air 09/22/22 10:20 Allergies Allergy/AdvReac Type Severity Reaction Status Date / Time atenolol Allergy Intermediate Chest Pain Verified 09/22/22 10:31 Home Medications Medication Instructions Recorded Confirmed Type escitalopram oxalate 20 mg tablet 20 mg PO DAILY 01/11/20 09/22/22 History pregabalin 150 mg capsule 150 mg PO TID 01/11/20 09/22/22 History amlodipine 10 mg tablet 10 mg PO HS 12/05/20 09/22/22 History aspirin 81 mg capsule 81 mg PO HS 12/05/20 09/22/22 History carisoprodol 350 mg tablet 350 mg PO HS 12/05/20 09/22/22 History clonidine HCl 0.1 mg tablet 0.1 mg PO TID 12/05/20 09/22/22 History folic acid 1 mg tablet 1 mg PO DAILY 12/05/20 09/22/22 History glimepiride 2 mg tablet 4 mg PO BID 12/05/20 09/22/22 History hydrocodone 5 mg-acetaminophen 325 10 - 325 tablet PO TID PRN Pain 12/05/20 09/22/22 History mg tablet insulin aspart U-100 100 unit/mL 50 unit subcut TID 12/05/20 09/22/22 History (3 mL) subcutaneous pen liraglutide 0.6 mg/0.1 mL (18 mg/3 1.2 mg subcut DAILY 12/05/20 09/16/22 History mL) subcutaneous pen injector (Victoza 2-Doroteo) metformin 500 mg tablet,extended 1,000 mg PO BID 12/05/20 09/22/22 History release 24hr nadolol 80 mg tablet 80 mg PO TID 12/05/20 09/22/22 History pantoprazole 40 mg tablet,delayed 40 mg PO HS 12/05/20 09/22/22 History release rosuvastatin 40 mg tablet 40 mg PO 2XW 12/05/20 09/22/22 History albuterol sulfate 2.5 mg/3 mL 2.5 mg inhalation Q6H PRN 03/28/21 09/22/22 History (0.083 %) solution for nebulization Shortness Of Breath Or Wheezing ergocalciferol (vitamin D2) 1,250 1,250 mcg PO WEEKLY 03/28/21 09/22/22 History mcg (50,000 unit) capsule ferrous sulfate 325 mg (65 mg 325 mg PO DAILY 03/28/21 09/22/22 History iron) tablet (FeroSul) furosemide 20 mg tablet 10 mg PO QAM 03/28/21 09/22/22 History mometasone-formoterol HFA 100 2 puff inhalation Q12H 03/28/21 09/22/22 History mcg-5 mcg/actuation aerosol inhaler (Dulera) trazodone 50 mg tablet 50 mg PO QHS PRN Insomnia 03/28/21 09/22/22 History hydroxychloroquine 200 mg tablet 200 mg PO DAILY 09/12/22 09/22/22 History potassium chloride 10 mEq 10 meq PO DAILY 09/12/22 09/22/22 History tablet,extended release melatonin 5 mg tablet 5 mg PO HS PRN Insomnia 09/16/22 09/22/22 History Patient hx anesthesia problems: none Family hx anesthesia problems: none Results Review: All pre-operative results and documents have been reviewed as part of the pre-operative evaluation. [facility] Past Medical History Medical History Anxiety and depression Asthma Diabetes Elective GERD (gastroesophageal reflux disease) High triglycerides HLD (hyperlipidemia) HTN (hypertension) Iron deficiency anemia (normal spontaneous vaginal delivery) x2 Obesity Status post hysteroscopy 2015 and 2020 Surgical History Surgical History S/P endometrial ablation 2017 Family History Family History Mother Hypertension Asthma Family history of cataracts Grandparent Family history of Alzheimer's disease Family history of cardiovascular disease Family history of coronary artery disease Social History Social History Smoking packs per day: 1 Smoking cigaret
[2022-09-22] MEDS: LACTATED RINGERS 1,000 ML 30 ML IV CONT (10:50)
[2022-09-22] MEDS: ACETAMINOPHEN 500 MG TABLET 1000 MG PO (10:51)
[2022-09-22 10:53] LABS: Glucose Point of Care 182 mg/dl (65-105)
--- NOTE | 2022-09-22 11:32 | P.OP_ITS ---
Procedure Note - Detailed Date of Procedure 09/22/22 Pre-op Diagnosis post menopausal bleeding Post-op Diagnosis Same Procedure Performed D&C hysteroscopy Surgeon Ana M Colbert MD Anesthesia MAC Findings uterus sounds to 10cm and anteverted; endometrial cavity is very narrow with ostia closely set together; endometrium appears grossly atrophic Description of Procedure The the patient is taken to the operating room and placed under anesthesia in the dorsal lithotomy position. She was prepped and draped in the usual sterile fashion. [place] speculum was placed in the vagina and the cervix grasped on the anterior lip with a tenaculum. The uterus is sounded to 10cm and the diagnostic hysteroscope placed. No abnormalities are noted however the cavity is very anteverted. The hysteroscope was removed and the sharp curette used to curette the endometrium until a good uterine cry was noted in all areas . All instruments are removed. Sponge, needle, and instrument counts are correct per the OR staff. Patient was awakened from anesthesia and taken to recovery in stable condition. Estimated Blood Loss 5 Drains No Packing No Pathology Yes ( Endometrial curettings) Complications No immediate complications Condition Stable Disposition PACU
[2022-09-22 11:34] VITALS: BP 126/63; PULSE 88; RESP 14; O2SAT 92
[2022-09-22 11:57] LABS: Glucose Point of Care 202 mg/dl (65-105)
[2022-09-22 12:00] VITALS: BP 139/68; PULSE 85; RESP 16; O2SAT 93
[2022-09-22] MEDS: oxyCODONE HCL (*CRX) 5 MG TAB IR PO (12:10)
[2022-09-22 12:30] VITALS: BP 147/71; PULSE 83; RESP 16
[2022-09-22 12:45] VITALS: BP 138/64; PULSE 86; RESP 16
== END 2022-09-22 12:50 | disposition home or self-care (01) ==
PROVIDERS: PCP Nurse Practitioner Family; Visit Provider Obstetrics & Gynecology Gynecology
PROC: 0U5B8ZZ Destruction of Endometrium, Via Natural or Artificial Opening Endoscopic (ICD-10-PCS; CPT 58563; principal; 2022-09-22 12:45)
DX: N95.0 Postmenopausal bleeding (principal); K21.9 Gastro-esophageal reflux disease without esophagitis; E11.9 Type 2 diabetes mellitus without complications; F41.8 Other specified anxiety disorders; J45.909 Unspecified asthma, uncomplicated; E78.1 Pure hyperglyceridemia; I10 Essential (primary) hypertension; E78.5 Hyperlipidemia, unspecified; D50.9 Iron deficiency anemia, unspecified; Z90.710 Acquired absence of both cervix and uterus; Z87.891 Personal history of nicotine dependence; Z79.82 Long term (current) use of aspirin; Z79.891 Long term (current) use of opiate analgesic; Z79.4 Long term (current) use of insulin; Z79.84 Long term (current) use of oral hypoglycemic drugs; Z79.51 Long term (current) use of inhaled steroids; E66.01 Morbid (severe) obesity due to excess calories; Z68.39 Body mass index [BMI] 39.0-39.9, adult
CPT/HCPCS: 58558; 82948; 88305; A9270; J2250; J2405; J2704; J3010; J7120

== ENCOUNTER 2023-03-15 10:20 | Outpatient (CLI) | payer OTHER, SELFPAY ==
--- NOTE | ~2023-03-15 | MR_ITS ---
MRI of the brain Clinical History: Headache Technique: Axial and sagittal T1-weighted images were acquired. These were followed by axial T2-weigh yann, diffusion weighted, gradient, and FLAIR images. Findings: There is no acute infarct, intracranial hemorrhage, or mass lesion. There are moderate to a dvanced chronic white matter changes in the periventricular matter bilaterally. Ventricles and subarachnoid spaces are unremarkable. Orbits are unremarkable. There is pansinusitis. Mastoid air cells are clear. Major intracranial flow voids appear to be intact. Sagittal midline structures are intact. IMPRESSION: No acute infarct, intracranial hemorrhage, or mass lesion. Moderate to advanced chronic microvascular ischemic changes. Pansinusitis. Reviewed, dictated and finalized at location . RTISING ASSISTANT
== END 2023-03-15 10:21 | disposition home or self-care (01) ==
PROVIDERS: PCP Family Medicine; Visit Provider Family Medicine
DX: R51.9 Headache, unspecified (principal)
CPT/HCPCS: 70551

== ENCOUNTER 2023-04-06 10:58 | Inpatient (IN) | payer OTHER, SELFPAY ==
[2023-04-06] VITALS (9 sets, daily range): BP systolic 117–145; BP diastolic 57–83; PULSE 94–101; RESP 14–20; TEMP 36.8–39.1; O2SAT 94–100; BMI 38.5; BMI 37.4
--- NOTE | ~2023-04-06 | XR_ITS ---
EXAM: XR foot RT min 3V DATE: 04/06/2023 17:56 HISTORY: foot wound on bottom lateral aspect . COMPARISON: None available. FINDINGS: Normal mineralization. No fracture or dislocation. No lytic or blastic lesion. Joint space s are maintained. Moderate Achilles and plantar enthesopathy. Focal erosion in the inferior aspect of the fifth metatarsal head, seen only in the lateral view. Forefoot soft tissue swelling. No radio op aque foreign body. IMPRESSION: Findings suspicious for osteomyelitis involving the fifth metatarsal head. Reviewed, dictated and finalized at location K. H BALER IMPRESSION: Findings suspicious for osteomyelitis involving the fifth metatarsa l head.
--- NOTE | ~2023-04-06 | US_ITS ---
EXAMINATION: US venous doppler LE RT DATE: 04/06/2023 13:19 INDICATION: Right lower limb warmth, pain and swelling TECHNIQUE: Grayscale ultrasound images without and with compression and Doppler ultrasound images of the right lower extremity veins were obtained. COMPARISON: None. FINDINGS: The visualized portions of right common femoral vein, profunda (deep) femoral vein, femoral vein, pop liteal vein, peroneal trunk, posterior tibial veins, peroneal veins, gastrocnemius vein and greater s aphenous vein outflow are patent. Subcutaneous edema in the region of erythema at the right lower leg . IMPRESSION: 1. No deep venous thrombosis in the right lower limb. Reviewed, dictated and finalized at location A. OVISUAL EQUIPMENT OPERATOR
--- NOTE | ~2023-04-06 | XR_ITS ---
XR chest 1V portable 04/12/2023 10:34 Indication: Pneumonia Procedure: AP portable chest Comparison: Comparison to multiple prior studies sequentially, with oldest reviewed study dated 12/18. Findings: There is bilateral perihilar interstitial infiltrates. Small left effusion. No pneumothorax . No acute osseous abnormality. Impression: 1: Bilateral perihilar interstitial infiltrates may represent edema or pneumonia. 2: Small left pleural effusion. Reviewed, dictated and finalized at location A. R BRANDER Impression: 1: Bilateral perihilar interstitial infiltrates may represent edema or pneumoni a. 2: Small left pleural effusion.
--- NOTE | ~2023-04-06 | MR_ITS ---
EXAMINATION: MR_LE2+RTWW_MR DATE: 04/08/2023 12:11 INDICATION: Diabetic with suspected osteomyelitis of the right lower leg with erythema, swelling and open wound at the right foot. TECHNIQUE: Magnetic resonance imaging (MRI) of the right lower leg, foot and ankle was performed with out and with 15 mL Multihance intravenous contrast. Sequences included axial, sagittal and coronal T 1-weighted FSE and fluid sensitive FSE STIR, axial T2-weighted FS FSE and postcontrast axial and brandon nal T2-weighted FS FSE of the right lower leg were obtained. The contralateral left lower leg was inc luded on the coronal images. Additional axial, sagittal and coronal T1-weighted FSE, axial and chase l T2-weighted FS FSE, axial T2-weighted FS FSE and postcontrast axial, sagittal and coronal T2-weight ed FS FSE of the foot and ankle were also obtained. COMPARISON: None. FINDINGS: There is diffuse soft tissue swelling with prominent reticulated pattern of edema and non masslike en hancement throughout the right lower leg and extending around the ankle and into the dorsum of the fo ot. Additional diffuse but significantly less severe subcutaneous edema without significant enhanceme nt seen in the subcutaneous fat at the contralateral left lower leg. No joint effusions or loculated fluid collections to suggest abscess. Mild hallux valgus. Bone alignment is otherwise normal. There i s normal marrow signal with no abnormal marrow enhancement throughout. No reactive edema, fracture, o steomyelitis or other pathologic marrow replacing process. There is mild osteoarthritis at the first metatarsophalangeal and a few of the tarsal metatarsal and interphalangeal joints. Moderate-sized Ach illes and plantar calcaneal spurs. There is mild thickening and mild increased signal of the proximal aspect of the medial compartment of the plantar aponeurosis consistent with chronic enthesopathy wit hout significant associated marrow or surrounding soft tissue edema to suggest acute plantar fasciiti s. There is relatively symmetric mild fatty atrophy of the musculature in the bilateral calves with n o abnormal muscular signal. The visualized tendons in the lower leg extending across the ankle into t he foot are normal and without evident tenosynovitis. The stabilizing ligaments at the medial and lat eral ankle as well as the Lisfranc ligament complex and the collateral ligament complex at the metata rsophalangeal and interphalangeal joints appear grossly normal although assessment is more limited th an on a standard smaller field of view imaging of the ankle or foot. IMPRESSION: 1. Asymmetric increased edema and non masslike enhancement in the subcutaneous tissues throughout the right lower leg extending across the ankle into the foot consistent with nonspecific cellulitis. No abscess or osteomyelitis. Reviewed, dictated and finalized at location A. ING ANALYST
--- NOTE | ~2023-04-06 | CT_ITS ---
EXAMINATION: CTA chest PE protocol DATE: 04/10/2023 12:07 INDICATION: Shortness of breath TECHNIQUE: Computed tomography angiography (CTA) of the chest was performed with 100 mL Omnipaque-350 intravenous contrast timed to evaluate the pulmonary arteries. Coronal maximum intensity projection 3D-reconstructions were created by the technologist. The dose-length product (DLP) was 909.26 mGy-cm. Automated exposure control and iterative reconstruction technique were employed. COMPARISON: None. FINDINGS: The pulmonary arteries are well-opacified. No pulmonary embolism is identified. There are small pleural effusions. The heart size is normal. There is mild bilateral hilar lymphadenopathy, lik [place] reactive. Calcified atherosclerosis is noted. There are patchy airspace opacities throughout the lungs, worst in the mid and upper lung zones. There is no pneumothorax. There is mild thoracic spondy losis. IMPRESSION: 1. No pulmonary embolus identified. 2. Multifocal pneumonia, worst in the mid and upper lung zones. 3. Small pleural effusions. Reviewed, dictated and finalized at location B. UTER TECH
--- NOTE | ~2023-04-06 | XR_ITS ---
Clinical Indication: Shortness of breath PA and lateral views of the chest: Comparison: 09/11/2022 Findings: The lungs are clear, without evidence of focal consolidation or pleural effusion. Cardiome diastinal silhouette is within normal limits. Bones and soft tissues are unremarkable. Impression: Normal chest. Reviewed, dictated and finalized at location . SE COLLECTOR SUPERVISOR Impression: Normal chest.
--- NOTE | 2023-04-06 12:15 | ECG_ITS ---
Measurements Intervals [place] Rate: 91 P: 7 NC: 180 QRS: 7 QRSD: 80 T: 55 QT: 363 QTc: 448 Interpretive Statements SINUS RHYTHM BASELINE ARTIFACT LOW-VOLTAGE QRS BORDERLINE ECG COMPARED TO ECG 09/11/2022 17:42:38 NO SIGNIFICANT CHANGES Electronically Signed On 04-06-2023 18:31:32 STEREOTYPER APPRENTICE by Franko Calderon M.D.
[2023-04-06 12:44] LABS: Basophils Absolute Auto 0.1 K/mm3 (0.0-0.1); Basophils Percent Auto 0.3 % (0.2-1.2); Eosinophils Percent Auto 0.1 % (0-4.4); Hematocrit 39.4 % (37.0-47.0); Hemoglobin 12.5 g/dL (12.0-15.0); Immature Granulocyte Absolute 0.04 K/mm3 (0.00-0.031); Immature Granulocyte Percent A 0.3 % (0-0.5); Lymphocytes Absolute Auto 1.11 K/mm3 (0.9-3.2); Lymphocytes Percent Auto 7.3 % (18.3-44.2); Mean Corpuscular HGB Conc 31.7 g/dl (32-36); Mean Corpuscular Hemoglobin 27.7 pg (26-34); Mean Corpuscular Volume 87.4 fl (80-100); Mean Platelet Volume 9.9 fl (7.4-10.4); Monocytes Percent Auto 6.9 % (2.6-8.5); Neutrophils Absolute Auto 12.9 K/mm3 (1.3-6.7); Neutrophils Percent Auto 85.1 % (45.5-73.1); Platelet Count Result 148 k/mm3 (150-375); Red Blood Count 4.51 M/mm3 (4.2-5.4); White Blood Count 15.1 K/mm3 (4.5-10.0)
[2023-04-06 12:55] LABS: Alanine Aminotransferase 17 U/L (6-35); Albumin Level 4.3 g/dL (3.5-5.1); Alkaline Phosphatase 64 U/L (38-126); Anion Gap 9 mmol/L (8-16); Aspartate Amino Transferase 21 U/L (14-36); Bilirubin,Total 0.5 mg/dL (0.2-1.3); Blood Urea Nitrogen 17 mg/dL (7-17); Calcium 9.4 mg/dL (8.4-10.2); Carbon Dioxide 26 mmol/L (22-30); Chloride 105 mmol/L (98-107); Estimated CRCL calculation 83 ml/min; Estimated Glomerular Filt Rate > 60; Glucose 147 mg/dL (65-110); Potassium 3.9 mmol/L (3.4-5.0); Sodium 140 mmol/L (137-145)
[2023-04-06 12:58] LABS: INR 1.1; Partial Thromboplastin Time 32.3 SECONDS (22.3-36.8); Prothrombin Time 14.5 Seconds (11.1-14.7)
--- NOTE | 2023-04-06 13:43 | ED.GENADULT ---
HPI - General Adult General Chief complaint: Extremity Problem,Nontraumatic <Rosemary Nelson June, ASSISTED LIVING DIRECTOR - Last Filed: 04/06/23 19:35> Stated complaint: redness, swelling right leg <Rosemary Nelson June, ASSISTED LIVING DIRECTOR - Last Filed: 04/06/23 19:35> Time Seen by Provider: 04/06/23 13:25 <Rosemary Nelson June, ASSISTED LIVING DIRECTOR - Last Filed: 04/06/23 19:35> Focused HPI: Regina Howell is a 52 y/o female who presents with reports of having swelling to her bilateral lower extremities for several months/ and is on furosemide/ denies hx of CHF. She does have hx of DM and has a wound to the bottom of her right foot that his healing. Today she noticed that she has some redness to her right lower calf area and maybe more swelling and wanted to get it checked. Denies any known fevers + feeling chills off and on - no cough/ SOB /chest pain GENERAL: Well-appearing, well-nourished, and in no acute distress. HEAD: Normocephalic, atraumatic. CHEST: Clear to auscultation. ?No respiratory distress. HEART: Regular rate and rhythm.? NEURO: ?Alert and oriented x3. Patient screened in triage and initial orders placed.? ?Additional care and disposition to be based upon?diagnostic testing and treatment. <Caroline Cancino MD - Last Filed: 04/06/23 18:56> History of Present Illness HPI narrative: Focused HPI: Regina Howell is a 52 y/o female who presents with reports of having swelling to her bilateral lower extremities for several months/ and is on furosemide/ denies hx of CHF. She does have hx of DM and has a wound to the bottom of her right foot that his healing. Today she noticed that she has some redness to her right lower calf area and maybe more swelling and wanted to get it checked. Denies any known fevers + feeling chills off and on - no cough/ SOB /chest pain GENERAL: Well-appearing, well-nourished, and in no acute distress. HEAD: Normocephalic, atraumatic. CHEST: Clear to auscultation. ?No respiratory distress. HEART: Regular rate and rhythm.? NEURO: ?Alert and oriented x3. Patient screened in triage and initial orders placed.? ?Additional care and disposition to be based upon?diagnostic testing and treatment. <Rosemary Faulkner APRN - Last Filed: 04/06/23 19:35> Patient is a 52-year-old female with history of diabetes, lower extremity edema here with fever and right leg swelling. She states that she has been struggling with some bilateral lower extremity edema over the last couple of months. She was started on Lasix, she has had some recurrent issues with low potassium since that time. She notes that this morning she woke up in her right leg seemed to be significantly more swollen and red and warm to touch. She also notes that she has been having a subjective fever throughout the day today. When her fever peaks it seems to be associated with some nausea, generalized fatigue and feeling unwell. She does note that over the last week she had a wound present to the base of her right foot. She denies any drainage from this foot. <Caroline Cancino MD - Last Filed: 04/06/23 18:56> Related Data Home medications: Home Medications Medication Instructions Recorded Confirmed escitalopram oxalate 20 mg tablet 20 mg PO DAILY 01/11/20 04/06/23 pregabalin 150 mg capsule 150 mg PO TID 01/11/20 04/06/23 amlodipine 10 mg tablet 10 mg PO HS 12/05/20 04/06/23 aspirin 81 mg capsule 81 mg PO HS 12/05/20 04/06/23 carisoprodol 350 mg tablet 350 mg PO HS 12/05/20 04/06/23 clonidine HCl 0.1 mg tablet 0.1 mg PO TID 12/05/20 04/06/23 glimepiride 2 mg tablet 4 mg PO BID 12/05/20 04/06/23 hydrocodone 5 mg-acetaminophen 325 10 - 325 tablet PO TID PRN Pain 12/05/20 04/06/23 mg tablet insulin aspart U-100 100 unit/mL 50 unit subcut TID 12/05/20 04/06/23 (3 mL) subcutaneous pen liraglutide 0.6 mg/0.1 mL (18 mg/3 1.2 mg subcut DAILY 12/05/20 04/06/23 mL) subcutaneous pen injector (Victoza 2-Doroteo) metformin 500 mg tablet,extended 1,000 mg PO BID 12/05/20 04/06/23 release 24hr (osmotic)
[2023-04-06 14:15] LABS: NT Pro B Type Natriuretic Pept 196 pg/mL (19.9-100); Troponin I < 0.012 ng/mL (0.000-0.034)
[2023-04-06 14:28] LABS: Appearance Urine Clear (Clear); Bacteria Urine None Seen /hpf; Bilirubin Urine Negative (Negative); Blood Urine Negative (Negative); Color Urine Yellow (Yellow); Glucose Urine UA Negative (Negative); Hyaline Casts Urine Present /lpf; Ketones Urine Negative (Negative); Leukocyte Esterase Ur Trace LEU/UL (Negative); Nitrate Urine Negative (Negative); Protein Urine Negative (Negative); RBC Urine 0-2 /hpf (0-2); Specific Grav Ur 1.011 (1.001-1.035); Squamous Epithelial Cell Urine None seen /hpf (Few); Urobilinogen Urine 0.2 mg/dL (<2.0); WBC Urine 0-5 /hpf
[2023-04-06 14:34] LABS: Add Urine Microscopic? YES
[2023-04-06 15:01] LABS: Influenza A QL RT-PCR Negative (Negative); Influenza B QL RT-PCR Negative (Negative); RSV RNA, RT-PCR Negative (Negative); SARS-CoV-2 RNA PCR Negative (Negative)
[2023-04-06 17:57] LABS: CRP 1.6 mg/dL (<1.0)
[2023-04-06] MEDS: ACETAMINOPHEN 500 MG TABLET 1000 MG PO (18:21)
[2023-04-06] MEDS: CEFEPIME 2 GM/NS 50 ML 2 GM/50 ML BAG IVPB (18:39)
[2023-04-06] MEDS: metroNIDAZOLE 500 MG/ISO 100ML 500 MG/100 ML BAG 100 MG IVPB (18:48)
[2023-04-06] MEDS: KETOROLAC 15 MG/ML VIAL (*BKC) IV PUSH (19:02)
[2023-04-06 19:21] LABS: Erythrocyte Sedimentation Rate 17 mm/hr (0-20)
--- NOTE | 2023-04-06 19:53 | PC.NURSE ---
Flagyl still infusing at this time. Vanc at bedside to infuse after flagyl is finished.
[2023-04-06] MEDS: VANCOMYCIN 1,500 MG/NS 500 ML 1,500 MG/500 ML BAG 250 MG IVPB (20:20)
--- NOTE | 2023-04-06 20:25 | PM.IMHP ---
H&P: HPI History of Present Illness Date/Time: 04/06/23 20:25 Chief Complaint: right lower extremity redness Narrative: This is a 52-year-old female with past medical history significant for type diabetes mellitus, hypertension, peripheral diabetic neuropathy, GERD, obesity. patient presents to the emergency room due to right lower extremity redness swelling plantar wound and heel wound that appeared 2 weeks ago patient has had fevers chills rigors generalized malaise body aches and pains. Preliminary workup was significant for CBC with a leukocyte count of 16,000 patient tested negative for COVID influenza type A influenza type B and RSV. patient is been admitted for further evaluation management and treatment. Clinical Indication: Shortness of breath ?PA and lateral views of the chest: Comparison: 09/11/2022 Findings: The lungs are clear, without evidence of focal consolidation or pleural effusion.? Cardiomediastinal silhouette is within normal limits. Bones and soft tissues are unremarkable. ? Impression: ? Normal chest EXAMINATION: US venous doppler LE RT DATE: 04/06/2023 13:19 INDICATION: Right lower limb warmth, pain and swelling TECHNIQUE: Grayscale ultrasound images without and with compression and Doppler ultrasound images of the right lower extremity veins were obtained. COMPARISON: None. FINDINGS: The visualized portions of right common femoral vein, profunda (deep) femoral vein, femoral vein, popliteal vein, peroneal trunk, posterior tibial veins, peroneal veins, gastrocnemius vein and greater saphenous vein outflow are patent. Subcutaneous edema in the region of erythema at the right lower leg. IMPRESSION: 1.? No deep venous thrombosis in the right lower limb. EXAMINATION: US venous doppler LE RT DATE: 04/06/2023 13:19 INDICATION: Right lower limb warmth, pain and swelling TECHNIQUE: Grayscale ultrasound images without and with compression and Doppler ultrasound images of the right lower extremity veins were obtained. COMPARISON: None. FINDINGS: The visualized portions of right common femoral vein, profunda (deep) femoral vein, femoral vein, popliteal vein, peroneal trunk, posterior tibial veins, peroneal veins, gastrocnemius vein and greater saphenous vein outflow are patent. Subcutaneous edema in the region of erythema at the right lower leg. IMPRESSION: 1.? No deep venous thrombosis in the right lower limb. Review of Systems Review of Systems: Right lower extremity swelling tenderness redness plantar wound and heel wound Constitutional: Constitutional: Reports chills, Reports fever(s) and Reports lethargy Eyes: Eyes: Denies change in vision ENT: Denies dysphagia and Denies odynophagia Cardiovascular: Cardiovascular: Denies chest pain, Denies radiating jaw, neck or arm pain and Denies palpitations Respiratory: Respiratory: Reports chest congestion Gastrointestinal: Gastrointestinal: Denies abdominal pain, Denies dyspepsia, Denies heartburn, Denies nausea and Denies vomiting Genitourinary: Genitourinary: Denies dysuria Musculoskeletal: Musculoskeletal: Reports myalgias Integumentary/Breasts: Skin/Breast: Reports erythema, Reports skin pain, Reports skin swelling and Reports skin ulcer Neurologic: Denies focal weakness and Denies Sensory deficit (Neuro) Psychiatric: Psychiatric: Reports no additional psychiatric complaints and Reports as per HPI Endocrine: Endocrine: Denies cold intolerance, Denies fatigue, Denies flushing, Denies heat intolerance, Denies polyphagia, Denies polydipsia and Denies palpitations Hematologic/Lymphatic: Hematologic/Lymphatic: Reports no additional hematologic/lymphatic complaints and Reports as per HPI Allergic/Immunologic: Allergic/Immunologic: Reports no additional allergic/immunologic complaints and Reports as per HPI PMFSH Past Medical History Medical History Anxiety and depre
[2023-04-06 21:12] LABS: Glucose Point of Care 245 mg/dl (65-105)
--- NOTE | 2023-04-06 21:29 | ADMGEN ---
This patient, Regina Howell, was admitted to 3 [facility] Surg Room 309-01. Patient/family oriented to hospital policies and general routines including ID bracelet, bed and alarms, visiting hours, pain management, procedures, bathroom and other care routines, personal items, smoking policy, room service/diet, and visiting hours. Information on how to activate the Rapid Response Team has been discussed. Patient/Family are encouraged to report perceived risks to care and to ask questions if they do not understand what they are told or what they should do.
[2023-04-06] MEDS: nadoloL 20 MG TABLET 80 MG PO (23:43)
[2023-04-06] MEDS: cloNIDine HCL 0.1 MG TABLET PO (23:44)
[2023-04-06] MEDS: ASPIRIN 81 MG ENTERIC TABLET PO (23:44)
[2023-04-06] MEDS: HYDROcodone/acetaminophen (*CRX) 10-325 MG TABLET 2 TAB PO (23:44)
[2023-04-06] MEDS: carisoprodoL (*CRX) 350 MG TABLET PO (23:44)
[2023-04-06] MEDS: PREGABALIN (*CRX) 75 MG CAPSULE 150 MG PO (23:44)
[2023-04-07] VITALS (14 sets, daily range): BP systolic 112–120; BP diastolic 59–79; PULSE 81–94; RESP 18; TEMP 35.9–39.4; O2SAT 95–99
[2023-04-07] MEDS: nadoloL 20 MG TABLET 80 MG PO ×3 (06:12→20:44)
[2023-04-07] MEDS: VANCOMYCIN 1,500 MG/NS 500 ML 1,500 MG/500 ML BAG 250 MG IVPB ×2 (06:13→21:05)
[2023-04-07 07:11] LABS: Estimated CRCL calculation 68 ml/min; Estimated Glomerular Filt Rate 58
[2023-04-07 07:40] LABS: Glucose Point of Care 167 mg/dl (65-105)
[2023-04-07] MEDS: FLUTICASONE/SALMETEROL 115-21 MCG INHALER 1 PUFF 2 PUFF INHALATION ×2 (08:39→20:35)
[2023-04-07] MEDS: PREGABALIN (*CRX) 75 MG CAPSULE 150 MG PO ×3 (09:33→16:38)
[2023-04-07] MEDS: cloNIDine HCL 0.1 MG TABLET PO ×3 (09:34→16:38)
[2023-04-07] MEDS: HYDROXYCHLOROQUINE SULFATE 200 MG TABLET PO (09:34)
[2023-04-07] MEDS: HYDROcodone/acetaminophen (*CRX) 5-325 MG TABLET 1 TAB PO ×2 (09:34→20:42)
[2023-04-07] MEDS: ESCITALOPRAM OXALATE 10 MG TABLET 20 MG PO (09:34)
[2023-04-07] MEDS: IBUPROFEN 400 MG TABLET 800 MG PO (10:12)
[2023-04-07] MEDS: SODIUM CHLORIDE 0.9% IV 500 ML IV CONT (10:13)
[2023-04-07 11:20] LABS: Glucose Point of Care 228 mg/dl (65-105)
--- NOTE | 2023-04-07 14:25 | PM.IMPN ---
Progress Note: A&P Assessment and Plan (1) Osteomyelitis of ankle or foot, right, acute: Code(s): M86.171 - Other acute osteomyelitis, right ankle and foot Status: Acute Assessment and Plan: As evidenced by x-ray, findings were suspicious for osteomyelitis involving the 5th metatarsal head -MRI pending -consult General surgery appreciate recommendation and plan (2) Cellulitis of leg, right: Code(s): L03.115 - Cellulitis of right lower limb Status: Acute Assessment and Plan: Unknown etiology -continue vancomycin IV PQ 20 4 hours -continue Flagyl p.o. q.8 hours -continue ceftriaxone 2 g Q 24 hours -blood cultures pending (3) Diabetic foot ulcer: Qualifiers: Diabetes mellitus type: type 2 Diabetic foot ulcer location: midfoot Laterality: right Non-pressure ulcer stage: unspecified non-pressure ulcer stage Qualified Code(s): E11.621 - Type 2 diabetes mellitus with foot ulcer; L97.419 - Non-pressure chronic ulcer of right heel and midfoot with unspecified severity Code(s): E11.621 - Type 2 diabetes mellitus with foot ulcer; L97.509 - Non-pressure chronic ulcer of other part of unspecified foot with unspecified severity Status: Acute Assessment and Plan: Patient reports non compliance with medication unsure last A1c -continue wound care -A1c pending -patient is unsure of home insulin regimen Use hyper/hypoglycemia protocol while inpatient (4) GERD (gastroesophageal reflux disease): Code(s): K21.9 - Gastro-esophageal reflux disease without esophagitis Status: Acute Assessment and Plan: -continue PPI, p.o. daily (5) Insulin dependent diabetes mellitus: Status: Acute Assessment and Plan: holding metformin holding glimepiride continue insulin (6) Diabetic neuropathy: Code(s): E11.40 - Type 2 diabetes mellitus with diabetic neuropathy, unspecified Status: Acute Assessment and Plan: continue pregabalin (7) HTN (hypertension): Code(s): I10 - Essential (primary) hypertension Status: Acute Assessment and Plan: continue home meds holding Lasix Plan Continue home medications: VTE Prophylaxis: Enoxaparin subQ DIET: Diabetic consistent carbohydrate diet Anticipated hospital stay: >2 Code Status: Full Subjective Date/time seen: 04/07/23 14:25 Interval history: HPI: 52-year-old female with past medical history significant for type diabetes mellitus, hypertension, peripheral diabetic neuropathy, GERD, obesity. patient presents to the emergency room due to right lower extremity redness swelling plantar wound and heel wound that appeared 2 weeks ago. ?patient has had fevers chills rigors generalized malaise body aches and pains.? ED workup was significant for CBC with a leukocyte count of 16,000 patient tested negative for COVID influenza type A influenza type B and RSV. patient is been admitted for further evaluation management and treatment. Interval Hx: 04/07/2023 Patient was seen this afternoon, she reports overnight events of ongoing chills rigors along with fever patient states she was able to get medication this morning, she endorses ongoing redness and swelling to her right lower leg. Patient reports observing redness to her right lower calf area she was very concerned that was a blood clot. She denies any recent long travel, denies any recent trauma. Review of Systems Review of Systems: Right lower extremity swelling tenderness redness plantar wound and heel wound All systems reviewed & are unremarkable except as noted in HPI and below Exam Narrative: patient is laying in bed Const: General: comfortable, no acute distress, well developed, alert, awake and obese Nutritional Appearance: obese Orientation/consciousness: patient oriented x3 HENMT: Head: normal to inspection, normocephalic and atraumatic Ears: hearing grossly normal bilaterally Face/Nose
--- NOTE | 2023-04-07 16:01 | PCCCNOTE ---
On 04/07/23, the student, Raisa Duran, provided care and completed [facility] documentation on this patient. I have reviewed the student's documentation and agree with the findings.
[2023-04-07 16:33] LABS: Glucose Point of Care 221 mg/dl (65-105)
[2023-04-07] MEDS: metroNIDAZOLE 500 MG TABLET PO ×2 (16:38→20:44)
[2023-04-07 18:17] LABS: Hemoglobin A1C 6.9 % (<5.7)
[2023-04-07 20:40] LABS: Glucose Point of Care 241 mg/dl (65-105)
[2023-04-07] MEDS: carisoprodoL (*CRX) 350 MG TABLET PO (20:42)
[2023-04-07] MEDS: traZODone HCL 50 MG TABLET PO (20:42)
[2023-04-07] MEDS: amLODIPine BESYLATE 5 MG TABLET 10 MG PO (20:42)
[2023-04-07] MEDS: ASPIRIN 81 MG ENTERIC TABLET PO (20:42)
[2023-04-08] VITALS (15 sets, daily range): BP systolic 127–138; BP diastolic 57–84; PULSE 76–90; RESP 16–20; TEMP 37.5–39.3; O2SAT 94–98
[2023-04-08] MEDS: cefTRIAXone 2 GM/NS 100 ML 2 GM/100 ML BAG IVPB ×2 (00:04→22:26)
[2023-04-08] MEDS: ACETAMINOPHEN 325 MG TABLET 650 MG PO ×3 (04:05→20:31)
[2023-04-08] MEDS: nadoloL 20 MG TABLET 80 MG PO ×3 (06:21→22:26)
[2023-04-08] MEDS: metroNIDAZOLE 500 MG TABLET PO ×3 (06:21→22:26)
[2023-04-08] MEDS: SALINE LOCK FLUSH 10 ML IV PUSH ×3 (06:21→22:46)
[2023-04-08] MEDS: FLUTICASONE/SALMETEROL 115-21 MCG INHALER 1 PUFF 2 PUFF INHALATION ×2 (07:17→21:22)
[2023-04-08 07:21] LABS: Glucose Point of Care 200 mg/dl (65-105)
[2023-04-08] MEDS: INSULIN ASPART (*BKC) 100 UNITS/ML 10 UNITS SUB-Q ×3 (08:30→17:23)
[2023-04-08] MEDS: cloNIDine HCL 0.1 MG TABLET PO ×3 (08:31→17:23)
[2023-04-08] MEDS: HYDROXYCHLOROQUINE SULFATE 200 MG TABLET PO (08:31)
[2023-04-08] MEDS: PREGABALIN (*CRX) 75 MG CAPSULE 150 MG PO ×3 (08:31→17:23)
[2023-04-08] MEDS: PANTOPRAZOLE 40 MG TABLET PO (08:31)
[2023-04-08] MEDS: ENOXAPARIN 40 MG/0.4 ML SYRINGE SUB-Q (08:31)
[2023-04-08] MEDS: ESCITALOPRAM OXALATE 10 MG TABLET 20 MG PO (08:31)
[2023-04-08 10:08] LABS: Hematocrit 34.3 % (37.0-47.0); Hemoglobin 10.9 g/dL (12.0-15.0); Mean Corpuscular HGB Conc 31.8 g/dl (32-36); Mean Corpuscular Hemoglobin 28.2 pg (26-34); Mean Corpuscular Volume 88.6 fl (80-100); Mean Platelet Volume 10.4 fl (7.4-10.4); Platelet Count Result 146 k/mm3 (150-375); Red Blood Count 3.87 M/mm3 (4.2-5.4); Red Cell Distribution Width 14.3 % (11.5-14.5)
[2023-04-08 10:20] LABS: Alanine Aminotransferase 21 U/L (6-35); Albumin Level 3.6 g/dL (3.5-5.1); Alkaline Phosphatase 72 U/L (38-126); Anion Gap 5 mmol/L (8-16); Aspartate Amino Transferase 25 U/L (14-36); Bilirubin,Total 0.5 mg/dL (0.2-1.3); Blood Urea Nitrogen 18 mg/dL (7-17); Calcium 8.9 mg/dL (8.4-10.2); Carbon Dioxide 27 mmol/L (22-30); Chloride 105 mmol/L (98-107); Estimated CRCL calculation 95 ml/min; Estimated Glomerular Filt Rate > 60; Glucose 197 mg/dL (65-110); Potassium 2.9 mmol/L (3.4-5.0); Sodium 137 mmol/L (137-145)
[2023-04-08 10:49] LABS: Vancomycin Trough 10.1 ug/mL (10.0-20.0)
--- NOTE | 2023-04-08 11:08 | PM.CNGS ---
Assessment and Plan Assessment and plan (1) Cellulitis of leg, right: Code(s): L03.115 - Cellulitis of right lower limb Status: Acute Assessment and Plan: Right lower leg cellulitis that appears to be improving with IV antibiotics. There is no right lower leg induration or fluctuance on exam that would suggest an abscess. She feels that the swelling and erythema has improved since admission. Her WBC count did go up and she is still febrile this morning. She is getting an MRI of her right lower leg and foot today that is pending. Will await these results, but nothing on exam appears to require any surgical intervention at this time. Continue IV antibiotics, elevate right lower extremity, and continue to monitor. (2) Diabetic foot ulcer: Qualifiers: Diabetes mellitus type: type 2 Diabetic foot ulcer location: midfoot Laterality: right Non-pressure ulcer stage: unspecified non-pressure ulcer stage Qualified Code(s): E11.621 - Type 2 diabetes mellitus with foot ulcer; L97.419 - Non-pressure chronic ulcer of right heel and midfoot with unspecified severity Code(s): E11.621 - Type 2 diabetes mellitus with foot ulcer; L97.509 - Non-pressure chronic ulcer of other part of unspecified foot with unspecified severity Status: Acute Assessment and Plan: There is a very superficial small wound on the arch of her plantar foot that does not have any purulent drainage or surrounding erythema. It appears stable without any necrotic tissue or fluctuant areas that would require surgical intervention. Continue with local wound care with silver gel dressing changes. (3) Abnormal x-ray of bone: Code(s): R93.7 - Abnormal findings on diagnostic imaging of other parts of musculoskeletal system Status: Acute Assessment and Plan: Right foot x-rays suggest possible findings of osteomyelitis involving the 5th metatarsal head. There is focal erosion in the inferior aspect of the 5th met head only seen on the lateral view. On exam, there is no open wound, erythema, or any tenderness at the location of the 5th metatarsal head that would correlated with the possible osteomyelitis. Most of her redness is in the lower leg and her pain is in her right calf. MRI was ordered today and report is pending. (4) Insulin dependent diabetes mellitus: Status: Acute Assessment and Plan: Patient states she is compliant with her medications and her hgb A1C was 6.9 on this admission. Discussed the importance of glycemic control with infections and healing. Management per Hospitalist. (5) Rheumatoid arthritis: Code(s): M06.9 - Rheumatoid arthritis, unspecified Status: Acute Assessment and Plan: She takes hydroxychloroquine for her RA Plan I have discussed the patient's case and plan of care with Dr. Briggs. History of Present Illness Consult details Consult date: 04/08/23 Reason for consult: other (Osteomyelitis right foot) Requesting physician: Chinyere Eid APRN Narrative: This is a 52-year-old woman with insulin-dependent type 2 diabetes mellitus, hypertension, who we have been asked to see in surgical consultation for osteomyelitis. She had dry feet and reports noticing cracks in her right heel about 1 week ago. She denies any trauma to this foot or any previous foot infections or foot surgeries. She has noticed that her foot is sore, but has been able to ambulate and work during the week. Then, about 3 days ago she noticed some swelling and redness to her right lower leg and calf, and decided to present to the ER for evaluation. Labs showed a WBC count 15,100, CRP 1.6, and glucose 147. She had a chest x-ray for shortness of breath that was negative. She has right lower extremity venous doppler that was negative for DVT. Right foot x-rays showed findings suspicious for osteomyelitis involving the 5th metatarsal head. She was febrile with temperature up to 102.3F. Blood cultures were drawn. She wa
[2023-04-08 12:21] LABS: Glucose Point of Care 176 mg/dl (65-105)
[2023-04-08] MEDS: VANCOMYCIN 1,500 MG/NS 500 ML 1,500 MG/500 ML BAG 250 MG IVPB ×2 (12:50→20:33)
--- NOTE | 2023-04-08 13:29 | P.CDI_ITS ---
CDI Query Clarification Request Please clarify if there is a cause and effect relationship between Cellulitis and Diabetes Mellitus. * There is a cause and effect relationship between cellulitis and diabetes mellitus. * There is not a cause and effect relationship between cellulitis and diabetes mellitus. * Unknown if there is a cause and effect relationship between cellulitis and diabetes mellitus. <Jacquie Turner RN - Last Filed: 04/08/23 13:35> Clarified Diagnosis Clarified Diagnosis: RLE cellulitis potentially due to diabetes as patient presents with RLE foot diabetic ulcer. <Catrachita Ware APRN - Last Filed: 04/08/23 18:41>
[2023-04-08] MEDS: POTASSIUM CHLORIDE 20 MEQ ER TABLET 40 MEQ PO (14:31)
[2023-04-08] MEDS: HYDROcodone/acetaminophen (*CRX) 5-325 MG TABLET 1 TAB PO ×2 (14:31→20:33)
[2023-04-08 16:06] LABS: Glucose Point of Care 239 mg/dl (65-105)
--- NOTE | 2023-04-08 18:12 | PM.IMPN ---
Progress Note: A&P Assessment and Plan (1) Osteomyelitis of ankle or foot, right, acute: Code(s): M86.171 - Other acute osteomyelitis, right ankle and foot Status: Acute Assessment and Plan: As evidenced by x-ray, findings were suspicious for osteomyelitis involving the 5th metatarsal head -MRI pending -consult General surgery appreciate recommendation and plan 04/08- RLE/ Foot presents with 2+ edema and erythema No DVT RLE MRI completed- Asymmetric increased edema and non masslike enhancement in the subcutaneous tissues throughout the right lower leg extending across the ankle into the foot consistent with nonspecific cellulitis. No abscess or osteomyelitis. General surgery assessed prior to MRI- discussed not likely osteomylitis due to RLE wounds at superfical areas (2) Cellulitis of leg, right: Code(s): L03.115 - Cellulitis of right lower limb Status: Acute Assessment and Plan: Unknown etiology -continue vancomycin IV PQ 20 4 hours -continue Flagyl p.o. q.8 hours -continue ceftriaxone 2 g Q 24 hours -blood cultures pending 04/08-RLE edema and 2+ edema MRI- consistent with non specific cellulitis potentially due to diabetes as patient as R foot diabetic foot ulcer. Blood cultures pending Continue IV abx General surgery to review MRI and appreciate further recommendations of care Continue to monitor and note increase- elevate extremity (3) Diabetic foot ulcer: Qualifiers: Diabetes mellitus type: type 2 Diabetic foot ulcer location: midfoot Laterality: right Non-pressure ulcer stage: unspecified non-pressure ulcer stage Qualified Code(s): E11.621 - Type 2 diabetes mellitus with foot ulcer; L97.419 - Non-pressure chronic ulcer of right heel and midfoot with unspecified severity Code(s): E11.621 - Type 2 diabetes mellitus with foot ulcer; L97.509 - Non-pressure chronic ulcer of other part of unspecified foot with unspecified severity Status: Acute Assessment and Plan: Patient reports non compliance with medication unsure last A1c -continue wound care -A1c pending -patient is unsure of home insulin regimen Use hyper/hypoglycemia protocol while inpatient 04/08 HgbA1C 6.9 Wound care consulted and addressed site Accu- Chek ACHS Continue insulin (4) GERD (gastroesophageal reflux disease): Code(s): K21.9 - Gastro-esophageal reflux disease without esophagitis Status: Acute Assessment and Plan: -continue PPI, p.o. daily (5) Insulin dependent diabetes mellitus: Status: Acute Assessment and Plan: holding metformin holding glimepiride continue insulin (6) Diabetic neuropathy: Code(s): E11.40 - Type 2 diabetes mellitus with diabetic neuropathy, unspecified Status: Acute Assessment and Plan: continue pregabalin 04/08- Patient denies pain to RLE wound area Continue to monitor sites (7) HTN (hypertension): Code(s): I10 - Essential (primary) hypertension Status: Acute Assessment and Plan: continue home meds holding Lasix Plan Continue home medications: VTE Prophylaxis: Enoxaparin subQ DIET: Diabetic consistent carbohydrate diet Anticipated hospital stay: >2 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 patient presents to the emergency room due to right lower extremity redness swelling plantar wound and heel wound that appeared 2 weeks ago. patient has had fevers chills rigors generalized malaise body aches and pains. ED workup was significant for CBC with a leukocyte count of 16,000 patient tested negative for COVID influenza type A influenza type B and RSV. patient is been admitted for further evaluati
[2023-04-08] MEDS: amLODIPine BESYLATE 5 MG TABLET 10 MG PO (20:33)
[2023-04-08] MEDS: ASPIRIN 81 MG ENTERIC TABLET PO (20:33)
[2023-04-08] MEDS: carisoprodoL (*CRX) 350 MG TABLET PO (20:42)
[2023-04-08 20:57] LABS: Glucose Point of Care 187 mg/dl (65-105)
[2023-04-09] VITALS (19 sets, daily range): BP systolic 146–164; BP diastolic 63–75; PULSE 74–84; RESP 18–20; TEMP 36.8–38.8; O2SAT 95–100
[2023-04-09] MEDS: VANCOMYCIN 1,500 MG/NS 500 ML 1,500 MG/500 ML BAG 250 MG IVPB ×3 (04:42→21:46)
[2023-04-09] MEDS: ALBUTEROL SULFATE NEB 2.5 MG/3 ML INH INHALATION ×3 (05:06→20:24)
[2023-04-09] MEDS: nadoloL 20 MG TABLET 80 MG PO ×3 (05:40→21:04)
[2023-04-09] MEDS: metroNIDAZOLE 500 MG TABLET PO ×3 (05:41→21:24)
[2023-04-09] MEDS: SALINE LOCK FLUSH 10 ML IV PUSH ×3 (05:41→21:04)
[2023-04-09] MEDS: ACETAMINOPHEN 325 MG TABLET 650 MG PO ×2 (05:41→13:29)
[2023-04-09 06:13] LABS: Hematocrit 30.4 % (37.0-47.0); Hemoglobin 9.9 g/dL (12.0-15.0); Mean Corpuscular HGB Conc 32.6 g/dl (32-36); Mean Corpuscular Hemoglobin 28.6 pg (26-34); Mean Corpuscular Volume 87.9 fl (80-100); Mean Platelet Volume 10.5 fl (7.4-10.4); Platelet Count Result 137 k/mm3 (150-375); Red Blood Count 3.46 M/mm3 (4.2-5.4); Red Cell Distribution Width 14.5 % (11.5-14.5); White Blood Count 15.4 K/mm3 (4.5-10.0)
[2023-04-09 06:25] LABS: Alanine Aminotransferase 19 U/L (6-35); Albumin Level 3.3 g/dL (3.5-5.1); Alkaline Phosphatase 80 U/L (38-126); Anion Gap 10 mmol/L (8-16); Aspartate Amino Transferase 21 U/L (14-36); Bilirubin,Total 0.5 mg/dL (0.2-1.3); Blood Urea Nitrogen 13 mg/dL (7-17); Calcium 8.3 mg/dL (8.4-10.2); Carbon Dioxide 20 mmol/L (22-30); Chloride 107 mmol/L (98-107); Estimated CRCL calculation 109 ml/min; Estimated Glomerular Filt Rate > 60; Glucose 196 mg/dL (65-110); Potassium 3.3 mmol/L (3.4-5.0); Sodium 137 mmol/L (137-145)
[2023-04-09 07:59] LABS: Glucose Point of Care 202 mg/dl (65-105)
[2023-04-09] MEDS: ESCITALOPRAM OXALATE 10 MG TABLET 20 MG PO (08:31)
[2023-04-09] MEDS: PREGABALIN (*CRX) 75 MG CAPSULE 150 MG PO ×3 (08:31→17:33)
[2023-04-09] MEDS: cloNIDine HCL 0.1 MG TABLET PO ×3 (08:31→17:33)
[2023-04-09] MEDS: ENOXAPARIN 40 MG/0.4 ML SYRINGE SUB-Q (08:31)
[2023-04-09] MEDS: HYDROXYCHLOROQUINE SULFATE 200 MG TABLET PO (08:31)
[2023-04-09] MEDS: PANTOPRAZOLE 40 MG TABLET PO (08:31)
[2023-04-09] MEDS: INSULIN ASPART (*BKC) 100 UNITS/ML 10 UNITS SUB-Q ×3 (08:35→17:34)
[2023-04-09] MEDS: FLUTICASONE/SALMETEROL 115-21 MCG INHALER 1 PUFF 2 PUFF INHALATION ×2 (08:43→20:24)
--- NOTE | 2023-04-09 10:18 | PM.PNGS ---
Progress Note: A&P Assessment and Plan (1) Cellulitis of leg, right: Code(s): L03.115 - Cellulitis of right lower limb Status: Acute Assessment and Plan: No MRI findings of osteomyelitis or abscess. Continue IV antibiotics per Hospitalist. No findings that would require debridement. Will follow as needed. (2) Insulin dependent diabetes mellitus: Status: Acute (3) Rheumatoid arthritis: Code(s): M06.9 - Rheumatoid arthritis, unspecified Status: Acute Subjective Subjective Date/Time Seen: 04/09/23 10:18 Interval history: Patient still feeling leg swelling. Not much pain. No open wounds or drainage. Exam Extrem: Other: RLQ cellulitis along calf region only. Edema unchanged. A couple small areas of cracked callus on plantar surface of foot, but no erythema around these areas. No drainages. Objective Data Vital Signs Vital Signs: Vital Signs - 24 hr 04/08/23 13:53 04/08/23 14:31 04/08/23 11:02 Temperature 37.7 C H 37.6 C Pulse Rate 83 80 Respiratory Rate 16 Blood Pressure 135/57 L Pulse Oximetry 98 Oxygen Delivery Fraction of Inspired Oxygen 04/08/23 20:31 04/08/23 21:52 04/08/23 21:31 Temperature 38.0 C H 37.8 C H 37.5 C Pulse Rate 88 Respiratory Rate 18 Blood Pressure 127/84 Pulse Oximetry 95 Oxygen Delivery Fraction of Inspired Oxygen 04/08/23 22:26 04/08/23 20:25 04/09/23 05:00 Temperature Pulse Rate 76 76 78 Respiratory Rate 18 18 Blood Pressure Pulse Oximetry 95 Oxygen Delivery Room Air Fraction of Inspired Oxygen 04/09/23 05:17 04/09/23 05:40 04/09/23 05:41 Temperature 37.9 C H Pulse Rate 80 74 Respiratory Rate 18 Blood Pressure Pulse Oximetry Oxygen Delivery Fraction of Inspired Oxygen 04/09/23 06:00 04/09/23 06:41 04/09/23 08:45 Temperature 37.9 C H 37.4 C Pulse Rate 84 Respiratory Rate 20 Blood Pressure 157/69 H Pulse Oximetry 100 95 Oxygen Delivery Room Air Fraction of Inspired Oxygen 21 04/09/23 08:45 04/09/23 08:00 Temperature Pulse Rate 83 Respiratory Rate 18 Blood Pressure Pulse Oximetry 95 Oxygen Delivery Room Air Fraction of Inspired Oxygen Intake/Output Intake/Output: Intake & Output 04/06/23 04/07/23 04/08/23 04/09/23 23:59 23:59 23:59 23:59 Intake Total 650 2080 2470 1237 Balance 650 2080 2470 1237 Meds/Results Medications: Active Medications Generic Name Dose Route Start Last Admin Trade Name Freq PRN Reason Stop Dose Admin Acetaminophen 650 mg 04/07/23 18:51 04/09/23 05:41 Acetaminophen 325 Mg Tablet PO 650 mg Q4H PRN Administration Headache Hydrocodone Bitart/Acetaminophen 1 tab 04/06/23 22:52 04/08/23 20:33 Hydrocodone/Acetaminophen (*Crx) 5-325 Mg Tablet PO 1 tab Q6H PRN Administration Pain Rated 4-6 Albuterol 2.5 mg 04/06/23 22:52 04/09/23 05:06 Albuterol Sulfate Neb 2.5 Mg/3 Ml Inh INHALATION 2.5 mg Q6HRT PRN Administration Shortness Of Breath Or Wheezing Amlodipine Besylate 10 mg 04/07/23 21:00 04/08/23 20:33 Amlodipine Besylate 5 Mg Tablet PO 10 mg HS JUDITH Administration Aspirin 81 mg 04/06/23 23:15 04/08/23 20:33 Aspirin 81 Mg Enteric Tablet PO 81 mg HS JUDITH Administration Carisoprodol 350 mg 04/06/23 23:17 04/08/23 20:42 Carisoprodol (*Crx) 350 Mg Tablet PO 350 mg HS JUDITH Administration Clonidine HCl 0.1 mg 04/06/23 23:05 04/09/23 08:31 Clonidine Hcl 0.1 Mg Tablet PO 0.1 mg TID JUDITH Administration Dextrose 12.5 gm 04/07/23 19:09 Dextrose 50% 25 Gm/50 Ml Syringe IV PUSH PRN PRN Hypoglycemia Protocol Enoxaparin Sodium 40 mg 04/08/23 09:00 04/09/23 08:31 Enoxaparin 40 Mg/0.4 Ml Syringe SUB-Q 40 mg DAILY JUDITH Administration Escitalopram Oxalate 20 mg 04/07/23 09:00 04/09/23 08:31 Escitalopram Oxalate 10 Mg Tablet PO 20 mg DAILY JUDITH Administration Glucag
[2023-04-09 11:20] LABS: Vancomycin Trough 17.7 ug/mL (10.0-20.0)
[2023-04-09 12:10] LABS: Glucose Point of Care 250 mg/dl (65-105)
[2023-04-09] MEDS: HYDROcodone/acetaminophen (*CRX) 5-325 MG TABLET 1 TAB PO (13:28)
[2023-04-09 16:20] LABS: Glucose Point of Care 202 mg/dl (65-105)
--- NOTE | 2023-04-09 17:31 | P.PNIM_ITS ---
Progress Note: A&P Assessment and Plan (1) Osteomyelitis of ankle or foot, right, acute: Code(s): M86.171 - Other acute osteomyelitis, right ankle and foot Status: Acute Assessment and Plan: As evidenced by x-ray, findings were suspicious for osteomyelitis involving the 5th metatarsal head -MRI pending -consult General surgery appreciate recommendation and plan * 04/08- RLE/ Foot presents with 2+ edema and erythema * No DVT RLE * MRI completed- Asymmetric increased edema and non masslike enhancement in the subcutaneous tissues throughout the right lower leg extending across the ankle into the foot consistent with nonspecific cellulitis. No abscess or osteomyelitis. * General surgery assessed prior to MRI- discussed not likely osteomylitis due to RLE wounds at superfical areas * 04/09- General surgery at bedside and note there is not need for surgical intervention as MRI notes there is no osteomyelitis. (2) Cellulitis of leg, right: Code(s): L03.115 - Cellulitis of right lower limb Status: Acute Assessment and Plan: Unknown etiology -continue vancomycin IV PQ 20 4 hours -continue Flagyl p.o. q.8 hours -continue ceftriaxone 2 g Q 24 hours -blood cultures pending * 04/08-RLE edema and 2+ edema * MRI- consistent with non specific cellulitis * potentially due to diabetes as patient as R foot diabetic foot ulcer. * Blood cultures pending * Continue IV abx * General surgery to review MRI and appreciate further recommendations of care * Continue to monitor and note increase- elevate extremity * 04/09: Continue IV abx * Blood culture pending * MRI consistent with cellulitis * General surgery agrees on cellulitis diagnosis- assessed superficial foot w ounds * Low grade temps. WBC 15.4 * No increase in edema or diffuse redness (3) Diabetic foot ulcer: Qualifiers: Diabetes mellitus type: type 2 Diabetic foot ulcer location: midfoot Laterality: right Non-pressure ulcer stage: unspecified non-pressure ulcer stage Qualified Code(s): E11.621 - Type 2 diabetes mellitus with foot ulcer; L97.419 - Non-pressure chronic ulcer of right heel and midfoot with unspecified severity Code(s): E11.621 - Type 2 diabetes mellitus with foot ulcer; L97.509 - Non-pressure chronic ulcer of other part of unspecified foot with unspecified severity Status: Acute Assessment and Plan: Patient reports non compliance with medication unsure last A1c -continue wound care -A1c pending -patient is unsure of home insulin regimen Use hyper/hypoglycemia protocol while inpatient * 04/08 HgbA1C 6.9 * Wound care consulted and addressed site * Accu- Chek ACHS * Continue insulin * 04/09- Wounds are superfical, without opening, and no drainage. Continue to monitor * Continue current management (4) GERD (gastroesophageal reflux disease): Code(s): K21.9 - Gastro-esophageal reflux disease without esophagitis Status: Acute Assessment and Plan: -continue PPI, p.o. daily (5) Insulin dependent diabetes mellitus: Status: Acute Assessment and Plan: holding metformin holding glimepiride continue insulin (6) Diabetic neuropathy: Code(s): E11.40 - Type 2 diabetes mellitus with diabetic neuropathy, unspecified Status: Acute Assessment and Plan: continue pregabalin * 04/08- Patient denies pain to RLE wound area * Continue to monitor sites (7) HTN (hypertension): Code(s): I10 - Essential (primary) hypertension Status: Acute Assessment and Plan:
--- NOTE | 2023-04-09 17:31 | PM.IMPN ---
Progress Note: A&P Assessment and Plan (1) Osteomyelitis of ankle or foot, right, acute: Code(s): M86.171 - Other acute osteomyelitis, right ankle and foot Status: Acute Assessment and Plan: As evidenced by x-ray, findings were suspicious for osteomyelitis involving the 5th metatarsal head -MRI pending -consult General surgery appreciate recommendation and plan 04/08- RLE/ Foot presents with 2+ edema and erythema No DVT RLE MRI completed- Asymmetric increased edema and non masslike enhancement in the subcutaneous tissues throughout the right lower leg extending across the ankle into the foot consistent with nonspecific cellulitis. No abscess or osteomyelitis. General surgery assessed prior to MRI- discussed not likely osteomylitis due to RLE wounds at [facility] areas 04/09- General surgery at bedside and note there is not need for surgical intervention as MRI notes there is no osteomyelitis. (2) Cellulitis of leg, right: Code(s): L03.115 - Cellulitis of right lower limb Status: Acute Assessment and Plan: Unknown etiology -continue vancomycin IV PQ 20 4 hours -continue Flagyl p.o. q.8 hours -continue ceftriaxone 2 g Q 24 hours -blood cultures pending 04/08-RLE edema and 2+ edema MRI- consistent with non specific cellulitis potentially due to diabetes as patient as R foot diabetic foot ulcer. Blood cultures pending Continue IV abx General surgery to review MRI and appreciate further recommendations of care Continue to monitor and note increase- elevate extremity 04/09: Continue IV abx Blood culture pending MRI consistent with cellulitis General surgery agrees on cellulitis diagnosis- assessed superficial foot wounds Low grade temps. WBC 15.4 No increase in edema or diffuse redness (3) Diabetic foot ulcer: Qualifiers: Diabetes mellitus type: type 2 Diabetic foot ulcer location: midfoot Laterality: right Non-pressure ulcer stage: unspecified non-pressure ulcer stage Qualified Code(s): E11.621 - Type 2 diabetes mellitus with foot ulcer; L97.419 - Non-pressure chronic ulcer of right heel and midfoot with unspecified severity Code(s): E11.621 - Type 2 diabetes mellitus with foot ulcer; L97.509 - Non-pressure chronic ulcer of other part of unspecified foot with unspecified severity Status: Acute Assessment and Plan: Patient reports non compliance with medication unsure last A1c -continue wound care -A1c pending -patient is unsure of home insulin regimen Use hyper/hypoglycemia protocol while inpatient 04/08 HgbA1C 6.9 Wound care consulted and addressed site Accu- Chek ACHS Continue insulin 04/09- Wounds are superfical, without opening, and no drainage. Continue to monitor Continue current management (4) GERD (gastroesophageal reflux disease): Code(s): K21.9 - Gastro-esophageal reflux disease without esophagitis Status: Acute Assessment and Plan: -continue PPI, p.o. daily (5) Insulin dependent diabetes mellitus: Status: Acute Assessment and Plan: holding metformin holding glimepiride continue insulin (6) Diabetic neuropathy: Code(s): E11.40 - Type 2 diabetes mellitus with diabetic neuropathy, unspecified Status: Acute Assessment and Plan: continue pregabalin 04/08- Patient denies pain to RLE wound area Continue to monitor sites (7) HTN (hypertension): Code(s): I10 - Essential (primary) hypertension Status: Acute Assessment and Plan: continue home meds holding Lasix Plan Continue home medications: VTE Prophylaxis: Enoxaparin subQ DIET: Diabetic consistent carbohydrate diet Anticipated hospital stay: >2 Code Status: Cloth Sponger Spent With Patient Time with patient: 15 - 25 minutes Subjective Date/time seen: 04/09/23 1010 Interval history: Interval history: HPI: 52-year-old female with past medical history significant for type diabet
[2023-04-09] MEDS: cefTRIAXone 2 GM/NS 100 ML 2 GM/100 ML BAG IVPB (20:57)
[2023-04-09] MEDS: carisoprodoL (*CRX) 350 MG TABLET PO (21:04)
[2023-04-09] MEDS: amLODIPine BESYLATE 5 MG TABLET 10 MG PO (21:04)
[2023-04-09] MEDS: ASPIRIN 81 MG ENTERIC TABLET PO (21:04)
[2023-04-09 21:54] LABS: Glucose Point of Care 214 mg/dl (65-105)
--- NOTE | 2023-04-09 22:43 | PC.NURSE ---
called MD Stanley tylenol given for fever recheck 100.1, inquiring about ibuprofen unable to reach, spoke with Bren CONN, ordered ibuprofen 600mg PO q6h prn for fever
[2023-04-09] MEDS: IBUPROFEN 600 MG TABLET PO (22:57)
[2023-04-10] VITALS (16 sets, daily range): BP systolic 108–147; BP diastolic 50–75; PULSE 72–86; RESP 18–20; TEMP 36.6–37.8; O2SAT 90–98
[2023-04-10] MEDS: VANCOMYCIN 1,500 MG/NS 500 ML 1,500 MG/500 ML BAG 250 MG IVPB (03:45)
[2023-04-10] MEDS: metroNIDAZOLE 500 MG TABLET PO (05:19)
[2023-04-10] MEDS: nadoloL 20 MG TABLET 80 MG PO ×3 (05:20→20:24)
[2023-04-10] MEDS: SALINE LOCK FLUSH 10 ML IV PUSH ×3 (05:20→20:29)
[2023-04-10] MEDS: ALBUTEROL SULFATE NEB 2.5 MG/3 ML INH INHALATION (05:29)
[2023-04-10 06:21] LABS: Hematocrit 30.6 % (37.0-47.0); Hemoglobin 9.6 g/dL (12.0-15.0); Mean Corpuscular HGB Conc 31.4 g/dl (32-36); Mean Corpuscular Hemoglobin 27.7 pg (26-34); Mean Corpuscular Volume 88.2 fl (80-100); Mean Platelet Volume 11.3 fl (7.4-10.4); Platelet Count Result 141 k/mm3 (150-375); Red Blood Count 3.47 M/mm3 (4.2-5.4); Red Cell Distribution Width 14.6 % (11.5-14.5)
[2023-04-10 06:38] LABS: Alanine Aminotransferase 19 U/L (6-35); Albumin Level 3.2 g/dL (3.5-5.1); Alkaline Phosphatase 80 U/L (38-126); Anion Gap 7 mmol/L (8-16); Aspartate Amino Transferase 20 U/L (14-36); Bilirubin,Total 0.5 mg/dL (0.2-1.3); Blood Urea Nitrogen 13 mg/dL (7-17); Calcium 8.3 mg/dL (8.4-10.2); Carbon Dioxide 23 mmol/L (22-30); Chloride 110 mmol/L (98-107); Estimated CRCL calculation 95 ml/min; Estimated Glomerular Filt Rate > 60; Glucose 192 mg/dL (65-110); Potassium 3.1 mmol/L (3.4-5.0); Sodium 140 mmol/L (137-145)
[2023-04-10 07:52] LABS: Glucose Point of Care 186 mg/dl (65-105)
[2023-04-10] MEDS: FLUTICASONE/SALMETEROL 115-21 MCG INHALER 1 PUFF 2 PUFF INHALATION ×2 (07:57→20:14)
[2023-04-10] MEDS: ENOXAPARIN 40 MG/0.4 ML SYRINGE SUB-Q (08:36)
[2023-04-10] MEDS: cloNIDine HCL 0.1 MG TABLET PO ×3 (08:36→17:14)
[2023-04-10] MEDS: ESCITALOPRAM OXALATE 10 MG TABLET 20 MG PO (08:37)
[2023-04-10] MEDS: PANTOPRAZOLE 40 MG TABLET PO (08:37)
[2023-04-10] MEDS: HYDROXYCHLOROQUINE SULFATE 200 MG TABLET PO (08:37)
[2023-04-10] MEDS: PREGABALIN (*CRX) 75 MG CAPSULE 150 MG PO ×3 (08:37→17:14)
[2023-04-10] MEDS: INSULIN ASPART (*BKC) 100 UNITS/ML 10 UNITS SUB-Q ×3 (08:37→17:56)
[2023-04-10 11:13] LABS: Glucose Point of Care 215 mg/dl (65-105)
--- NOTE | 2023-04-10 11:29 | PC.NURSE ---
While ambulating to the bathroom patient c/o incresed SOB, Ra sat 96% and after walking back from the bathroom sat was 90% on RA. Catrachita Ware NP notified
[2023-04-10] MEDS: OXYMETAZOLINE HCL 0.05% NAS 15 ML BTL (*BKC) 1 SPRAY NASAL ×2 (15:32→20:23)
[2023-04-10] MEDS: ACETAMINOPHEN 325 MG TABLET 650 MG PO (15:35)
--- NOTE | 2023-04-10 15:38 | PCCCNOTE ---
On 04/10/23, the student, [Raisa Duran], provided care and completed [facility] documentation on this patient. I have reviewed the student's documentation and agree with the findings.
[2023-04-10] MEDS: IPRATROPIUM 0.5 MG/ALBUTEROL SULFATE 2.5 MG AMPUL.NEB 3 ML INHALATION ×2 (15:43→20:13)
[2023-04-10 16:14] LABS: Glucose Point of Care 176 mg/dl (65-105)
--- NOTE | 2023-04-10 17:30 | P.PNIM_ITS ---
Progress Note: A&P Assessment and Plan (1) Cellulitis of leg, right: Code(s): L03.115 - Cellulitis of right lower limb Status: Acute Assessment and Plan: Unknown etiology -continue vancomycin IV PQ 20 4 hours -continue Flagyl p.o. q.8 hours -continue ceftriaxone 2 g Q 24 hours -blood cultures pending * 04/08-RLE edema and 2+ edema * MRI- consistent with non specific cellulitis * potentially due to diabetes as patient as R foot diabetic foot ulcer. * Blood cultures pending * Continue IV abx * General surgery to review MRI and appreciate further recommendations of care * Continue to monitor and note increase- elevate extremity * 04/09: Continue IV abx * Blood culture pending * MRI consistent with cellulitis * General surgery agrees on cellulitis diagnosis- assessed superficial foot wounds * Low grade temps. WBC 15.4 * No increase in edema or diffuse redness * 04/10/23: Cellulitis present to RLE. Less erythema today. Edema still present to foot and ankle area. 2+ pitting * IV abx de-escalated with decreased presentation and patient WBC 10.0. Afebrile this AM. * PO abx Augmentin and Doxycycline. (2) Pneumonia: Qualifiers: Pneumonia type: due to unspecified organism Code(s): J18.9 - Pneumonia, unspecified organism Status: Acute Assessment and Plan: * 04/10: Patient expressed episode of dyspnea on exertion when she ambulated to restroom. On assessment O2 saturation was 90%. * CTA Chest ordered to R/O PE. CTA chest noted No pulmonary embolus identified, Multifocal pneumonia, worst in the mid and upper lung zones, Small pleural effusions. * O2 PRN and wean. O2 Stat >92% * PO abx will cover- Augmentin and Doxycycline. * Incentive spirometer ordered and neb treatments available. (3) Dyspnea on exertion: Code(s): R06.09 - Other forms of dyspnea Status: Acute Assessment and Plan: * See #2 (4) Osteomyelitis of ankle or foot, right, acute: Code(s): M86.171 - Other acute osteomyelitis, right ankle and foot Status: Acute Assessment and Plan: As evidenced by x-ray, findings were suspicious for osteomyelitis involving the 5th metatarsal head -MRI pending -consult General surgery appreciate recommendation and plan * 04/08- RLE/ Foot presents with 2+ edema and erythema * No DVT RLE * MRI completed- Asymmetric increased edema and non masslike enhancement in the subcutaneous tissues throughout the right lower leg extending across the ankle into the foot consistent with nonspecific cellulitis. No abscess or osteomyelitis. * General surgery assessed prior to MRI- discussed not likely osteomylitis due to RLE wounds at superfical areas * 04/09- General surgery at bedside and note there is not need for surgical intervention as MRI notes there is no osteomyelitis. * 04/10- Osetomyelitis is R/O- infection presents as cellulitis and imaging confirms. (5) Diabetic foot ulcer: Qualifiers: Diabetes mellitus type: type 2 Diabetic foot ulcer location: midfoot Laterality: right Non-pressure ulcer stage: unspecified non-pressure ulcer stage Qualified Code(s): E11.621 - Type 2 diabetes mellitus with foot ulcer; L97.419 - Non-pressure chronic ulcer of right heel and midfoot with unspecified severity Code(s): E11.621 - Type 2 diabetes mellitus with foot ulcer; L97.509 - Non-pressure chronic ulcer of other part of unspecified foot with unspecified severity Status: Acute Assessment and Plan: Patient reports non compliance with medication unsure last A1c -continue wound car
--- NOTE | 2023-04-10 17:30 | PM.IMPN ---
Progress Note: A&P Assessment and Plan (1) Cellulitis of leg, right: Code(s): L03.115 - Cellulitis of right lower limb Status: Acute Assessment and Plan: Unknown etiology -continue vancomycin IV PQ 20 4 hours -continue Flagyl p.o. q.8 hours -continue ceftriaxone 2 g Q 24 hours -blood cultures pending 04/08-RLE edema and 2+ edema MRI- consistent with non specific cellulitis potentially due to diabetes as patient as R foot diabetic foot ulcer. Blood cultures pending Continue IV abx General surgery to review MRI and appreciate further recommendations of care Continue to monitor and note increase- elevate extremity 04/09: Continue IV abx Blood culture pending MRI consistent with cellulitis General surgery agrees on cellulitis diagnosis- assessed superficial foot wounds Low grade temps. WBC 15.4 No increase in edema or diffuse redness 04/10/23: Cellulitis present to RLE. Less erythema today. Edema still present to foot and ankle area. 2+ pitting IV abx de-escalated with decreased presentation and patient WBC 10.0. Afebrile this AM. PO abx Augmentin and Doxycycline. (2) Pneumonia: Qualifiers: Pneumonia type: due to unspecified organism Code(s): J18.9 - Pneumonia, unspecified organism Status: Acute Assessment and Plan: 04/10: Patient expressed episode of dyspnea on exertion when she ambulated to restroom. On assessment O2 saturation was 90%. CTA Chest ordered to R/O PE. CTA chest noted No pulmonary embolus identified, Multifocal pneumonia, worst in the mid and upper lung zones, Small pleural effusions. O2 PRN and wean. O2 Stat >92% PO abx will cover- Augmentin and Doxycycline. Incentive spirometer ordered and neb treatments available. (3) Dyspnea on exertion: Code(s): R06.09 - Other forms of dyspnea Status: Acute Assessment and Plan: See #2 (4) Osteomyelitis of ankle or foot, right, acute: Code(s): M86.171 - Other acute osteomyelitis, right ankle and foot Status: Acute Assessment and Plan: As evidenced by x-ray, findings were suspicious for osteomyelitis involving the 5th metatarsal head -MRI pending -consult General surgery appreciate recommendation and plan 04/08- RLE/ Foot presents with 2+ edema and erythema No DVT RLE MRI completed- Asymmetric increased edema and non masslike enhancement in the subcutaneous tissues throughout the right lower leg extending across the ankle into the foot consistent with nonspecific cellulitis. No abscess or osteomyelitis. General surgery assessed prior to MRI- discussed not likely osteomylitis due to RLE wounds at superfical areas 04/09- General surgery at bedside and note there is not need for surgical intervention as MRI notes there is no osteomyelitis. 04/10- Osetomyelitis is R/O- infection presents as cellulitis and imaging confirms. (5) Diabetic foot ulcer: Qualifiers: Diabetes mellitus type: type 2 Diabetic foot ulcer location: midfoot Laterality: right Non-pressure ulcer stage: unspecified non-pressure ulcer stage Qualified Code(s): E11.621 - Type 2 diabetes mellitus with foot ulcer; L97.419 - Non-pressure chronic ulcer of right heel and midfoot with unspecified severity Code(s): E11.621 - Type 2 diabetes mellitus with foot ulcer; L97.509 - Non-pressure chronic ulcer of other part of unspecified foot with unspecified severity Status: Acute Assessment and Plan: Patient reports non compliance with medication unsure last A1c -continue wound care -A1c pending -patient is unsure of home insulin regimen Use hyper/hypoglycemia protocol while inpatient 04/08 HgbA1C 6.9 Wound care consulted and addressed site Accu- Chek ACHS Continue insulin 04/09- Wounds are superfical, without opening, and no drainage. Continue to monitor Continue current management 04/10- Superficial wounds are covered. No drainage noted. Continue current managme
[2023-04-10] MEDS: DOXYCYCLINE HYCLATE 100 MG TABLET PO (20:25)
[2023-04-10] MEDS: AMOXICILLIN/CLAVULANATE K 875-125 MG TAB 1 TABLET PO (20:26)
[2023-04-10] MEDS: POTASSIUM CHLORIDE 20 MEQ ER TABLET PO (20:27)
[2023-04-10] MEDS: carisoprodoL (*CRX) 350 MG TABLET PO (20:27)
[2023-04-10] MEDS: HYDROcodone/acetaminophen (*CRX) 5-325 MG TABLET 1 TAB PO (20:27)
[2023-04-10] MEDS: ASPIRIN 81 MG ENTERIC TABLET PO (20:28)
[2023-04-10] MEDS: traZODone HCL 50 MG TABLET PO (20:28)
[2023-04-10] MEDS: amLODIPine BESYLATE 5 MG TABLET 10 MG PO (20:28)
[2023-04-10 21:05] LABS: Glucose Point of Care 168 mg/dl (65-105)
[2023-04-11] VITALS (17 sets, daily range): BP systolic 145–152; BP diastolic 63–69; PULSE 69–80; RESP 16–22; TEMP 36.8; O2SAT 94–99
[2023-04-11] MEDS: IPRATROPIUM 0.5 MG/ALBUTEROL SULFATE 2.5 MG AMPUL.NEB 3 ML INHALATION ×4 (02:23→20:11)
[2023-04-11] MEDS: ACETAMINOPHEN 325 MG TABLET 650 MG PO (03:02)
[2023-04-11] MEDS: nadoloL 20 MG TABLET 80 MG PO ×3 (05:14→20:48)
[2023-04-11] MEDS: SALINE LOCK FLUSH 10 ML IV PUSH ×2 (05:16→20:50)
[2023-04-11 06:14] LABS: Hemoglobin 10.1 g/dL (12.0-15.0); Mean Corpuscular HGB Conc 30.6 g/dl (32-36); Mean Corpuscular Hemoglobin 27.7 pg (26-34); Mean Corpuscular Volume 90.7 fl (80-100); Mean Platelet Volume 12.1 fl (7.4-10.4); Platelet Count Result 123 k/mm3 (150-375); Red Blood Count 3.64 M/mm3 (4.2-5.4); White Blood Count 8.2 K/mm3 (4.5-10.0)
[2023-04-11] MEDS: FLUTICASONE/SALMETEROL 115-21 MCG INHALER 1 PUFF 2 PUFF INHALATION ×2 (07:12→20:15)
[2023-04-11 07:16] LABS: Alanine Aminotransferase 16 U/L (6-35); Albumin Level 3.6 g/dL (3.5-5.1); Alkaline Phosphatase 90 U/L (38-126); Anion Gap 14 mmol/L (8-16); Aspartate Amino Transferase 33 U/L (14-36); Bilirubin,Total 0.9 mg/dL (0.2-1.3); Blood Urea Nitrogen 13 mg/dL (7-17); Calcium 9.1 mg/dL (8.4-10.2); Carbon Dioxide 14 mmol/L (22-30); Chloride 111 mmol/L (98-107); Estimated CRCL calculation 95 ml/min; Estimated Glomerular Filt Rate > 60; Glucose 161 mg/dL (65-110); Magnesium 1.8 mg/dL (1.6-2.3); Potassium 3.7 mmol/L (3.4-5.0); Sodium 139 mmol/L (137-145)
[2023-04-11 07:47] LABS: Glucose Point of Care 160 mg/dl (65-105)
--- NOTE | 2023-04-11 08:51 | P.PNIM_ITS ---
Progress Note: A&P Assessment and Plan (1) Cellulitis of leg, right: Code(s): L03.115 - Cellulitis of right lower limb Status: Acute Assessment and Plan: Unknown etiology -continue vancomycin IV PQ 20 4 hours -continue Flagyl p.o. q.8 hours -continue ceftriaxone 2 g Q 24 hours -blood cultures pending * 04/08-RLE edema and 2+ edema * MRI- consistent with non specific cellulitis * potentially due to diabetes as patient as R foot diabetic foot ulcer. * Blood cultures pending * Continue IV abx * General surgery to review MRI and appreciate further recommendations of care * Continue to monitor and note increase- elevate extremity * 04/09: Continue IV abx * Blood culture pending * MRI consistent with cellulitis * General surgery agrees on cellulitis diagnosis- assessed superficial foot wounds * Low grade temps. WBC 15.4 * No increase in edema or diffuse redness * 04/10/23: Cellulitis present to RLE. Less erythema today. Edema still present to foot and ankle area. 2+ pitting * IV abx de-escalated with decreased presentation and patient WBC 10.0. Afebrile this AM. * PO abx Augmentin and Doxycycline. * 04/11: Cellulitis site to RLE decreasing in erythema and edema. * Tolerating PO abx well. (2) Pneumonia: Qualifiers: Pneumonia type: due to unspecified organism Code(s): J18.9 - Pneumonia, unspecified organism Status: Acute Assessment and Plan: * 04/10: Patient expressed episode of dyspnea on exertion when she ambulated to restroom. On assessment O2 saturation was 90%. * CTA Chest ordered to R/O PE. CTA chest noted No pulmonary embolus identified, Multifocal pneumonia, worst in the mid and upper lung zones, Small pleural effusions. * O2 PRN and wean. O2 Stat >92% * PO abx will cover- Augmentin and Doxycycline. * Incentive spirometer ordered and neb treatments available. * 04/11: Patient on 2L O2 via NC at assessment. No respiratory distress noted. non labored respirations * Patient expressed concern for new dyspnea on exertion when she tries to ambulate. * Lungs clear at time of assessment. * Pulmonology consulted for new concerns (3) Dyspnea on exertion: Code(s): R06.09 - Other forms of dyspnea Status: Acute Assessment and Plan: * See #2 (4) Osteomyelitis of ankle or foot, right, acute: Code(s): M86.171 - Other acute osteomyelitis, right ankle and foot Status: Acute Assessment and Plan: As evidenced by x-ray, findings were suspicious for osteomyelitis involving the 5th metatarsal head -MRI pending -consult General surgery appreciate recommendation and plan * 04/08- RLE/ Foot presents with 2+ edema and erythema * No DVT RLE * MRI completed- Asymmetric increased edema and non masslike enhancement in the subcutaneous tissues throughout the right lower leg extending across the ankle into the foot consistent with nonspecific cellulitis. No abscess or osteomyelitis. * General surgery assessed prior to MRI- discussed not likely osteomylitis due to RLE wounds at superfical areas * 04/09- General surgery at bedside and note there is not need for surgical intervention as MRI notes there is no osteomyelitis. * 04/10- Osetomyelitis is R/O- infection presents as cellulitis and imaging confirms. (5) Diabetic foot ulcer: Qualifiers: Diabetes mellitus type: type 2 Diabetic foot ulcer location: midfoot Laterality: right Non-pressure ulcer stage: unspecified non-pressure ulcer stage Qualified Code(s): E11.621 - Type 2 diabetes mellitus with foot ulcer; L97.41
--- NOTE | 2023-04-11 08:51 | PM.IMPN ---
Progress Note: A&P Assessment and Plan (1) Cellulitis of leg, right: Code(s): L03.115 - Cellulitis of right lower limb Status: Acute Assessment and Plan: Unknown etiology -continue vancomycin IV PQ 20 4 hours -continue Flagyl p.o. q.8 hours -continue ceftriaxone 2 g Q 24 hours -blood cultures pending 04/08-RLE edema and 2+ edema MRI- consistent with non specific cellulitis potentially due to diabetes as patient as R foot diabetic foot ulcer. Blood cultures pending Continue IV abx General surgery to review MRI and appreciate further recommendations of care Continue to monitor and note increase- elevate extremity 04/09: Continue IV abx Blood culture pending MRI consistent with cellulitis General surgery agrees on cellulitis diagnosis- assessed superficial foot wounds Low grade temps. WBC 15.4 No increase in edema or diffuse redness 04/10/23: Cellulitis present to RLE. Less erythema today. Edema still present to foot and ankle area. 2+ pitting IV abx de-escalated with decreased presentation and patient WBC 10.0. Afebrile this AM. PO abx Augmentin and Doxycycline. 04/11: Cellulitis site to RLE decreasing in erythema and edema. Tolerating PO abx well. (2) Pneumonia: Qualifiers: Pneumonia type: due to unspecified organism Code(s): J18.9 - Pneumonia, unspecified organism Status: Acute Assessment and Plan: 04/10: Patient expressed episode of dyspnea on exertion when she ambulated to restroom. On assessment O2 saturation was 90%. CTA Chest ordered to R/O PE. CTA chest noted No pulmonary embolus identified, Multifocal pneumonia, worst in the mid and upper lung zones, Small pleural effusions. O2 PRN and wean. O2 Stat >92% PO abx will cover- Augmentin and Doxycycline. Incentive spirometer ordered and neb treatments available. 04/11: Patient on 2L O2 via NC at assessment. No respiratory distress noted. non labored respirations Patient expressed concern for new dyspnea on exertion when she tries to ambulate. Lungs clear at time of assessment. Pulmonology consulted for new concerns (3) Dyspnea on exertion: Code(s): R06.09 - Other forms of dyspnea Status: Acute Assessment and Plan: See #2 (4) Osteomyelitis of ankle or foot, right, acute: Code(s): M86.171 - Other acute osteomyelitis, right ankle and foot Status: Acute Assessment and Plan: As evidenced by x-ray, findings were suspicious for osteomyelitis involving the 5th metatarsal head -MRI pending -consult General surgery appreciate recommendation and plan 04/08- RLE/ Foot presents with 2+ edema and erythema No DVT RLE MRI completed- Asymmetric increased edema and non masslike enhancement in the subcutaneous tissues throughout the right lower leg extending across the ankle into the foot consistent with nonspecific cellulitis. No abscess or osteomyelitis. General surgery assessed prior to MRI- discussed not likely osteomylitis due to [facility] 04/09- General surgery at bedside and note there is not need for surgical intervention as MRI notes there is no osteomyelitis. 04/10- Osetomyelitis is R/O- infection presents as cellulitis and imaging confirms. (5) Diabetic foot ulcer: Qualifiers: Diabetes mellitus type: type 2 Diabetic foot ulcer location: midfoot Laterality: right Non-pressure ulcer stage: unspecified non-pressure ulcer stage Qualified Code(s): E11.621 - Type 2 diabetes mellitus with foot ulcer; L97.419 - Non-pressure chronic ulcer of right heel and midfoot with unspecified severity Code(s): E11.621 - Type 2 diabetes mellitus with foot ulcer; L97.509 - Non-pressure chronic ulcer of other part of unspecified foot with unspecified severity Status: Acute Assessment and Plan: Patient reports non compliance with medication unsure last A1c -continue wound care -A1c pending -patient is unsure of home in
[2023-04-11] MEDS: DOXYCYCLINE HYCLATE 100 MG TABLET PO ×2 (08:57→20:50)
[2023-04-11] MEDS: FUROSEMIDE 10 MG TABLET PO (08:57)
[2023-04-11] MEDS: AMOXICILLIN/CLAVULANATE K 875-125 MG TAB 1 TABLET PO ×2 (08:57→20:49)
[2023-04-11] MEDS: PREGABALIN (*CRX) 75 MG CAPSULE 150 MG PO ×3 (08:57→17:32)
[2023-04-11] MEDS: PANTOPRAZOLE 40 MG TABLET PO (08:57)
[2023-04-11] MEDS: ESCITALOPRAM OXALATE 10 MG TABLET 20 MG PO (08:57)
[2023-04-11] MEDS: cloNIDine HCL 0.1 MG TABLET PO ×3 (08:57→17:32)
[2023-04-11] MEDS: HYDROXYCHLOROQUINE SULFATE 200 MG TABLET PO (08:57)
[2023-04-11] MEDS: INSULIN ASPART (*BKC) 100 UNITS/ML 20 UNITS SUB-Q ×2 (08:58→17:32)
[2023-04-11] MEDS: ENOXAPARIN 40 MG/0.4 ML SYRINGE SUB-Q (08:58)
[2023-04-11 11:42] LABS: Glucose Point of Care 157 mg/dl (65-105)
[2023-04-11 16:40] LABS: Glucose Point of Care 148 mg/dl (65-105)
[2023-04-11] MEDS: amLODIPine BESYLATE 5 MG TABLET 10 MG PO (20:49)
[2023-04-11] MEDS: ASPIRIN 81 MG ENTERIC TABLET PO (20:49)
[2023-04-11] MEDS: carisoprodoL (*CRX) 350 MG TABLET PO (20:50)
[2023-04-11] MEDS: POTASSIUM CHLORIDE 20 MEQ ER TABLET PO (20:50)
[2023-04-11 21:21] LABS: Glucose Point of Care 157 mg/dl (65-105)
[2023-04-12] VITALS (20 sets, daily range): BP systolic 146–161; BP diastolic 67–77; PULSE 68–81; RESP 16–20; TEMP 36.5–36.9; O2SAT 91–100
[2023-04-12] MEDS: HYDROcodone/acetaminophen (*CRX) 5-325 MG TABLET 1 TAB PO ×2 (02:25→20:57)
[2023-04-12] MEDS: IPRATROPIUM 0.5 MG/ALBUTEROL SULFATE 2.5 MG AMPUL.NEB 3 ML INHALATION ×4 (02:55→19:59)
[2023-04-12] MEDS: nadoloL 20 MG TABLET 80 MG PO ×3 (05:55→20:56)
[2023-04-12] MEDS: SALINE LOCK FLUSH 10 ML IV PUSH ×3 (05:56→20:58)
[2023-04-12 06:37] LABS: Hematocrit 33.1 % (37.0-47.0); Hemoglobin 10.4 g/dL (12.0-15.0); Mean Corpuscular HGB Conc 31.4 g/dl (32-36); Mean Corpuscular Hemoglobin 27.5 pg (26-34); Mean Corpuscular Volume 87.6 fl (80-100); Platelet Count Result 215 k/mm3 (150-375); Red Blood Count 3.78 M/mm3 (4.2-5.4); Red Cell Distribution Width 14.7 % (11.5-14.5); White Blood Count 6.9 K/mm3 (4.5-10.0)
[2023-04-12 06:56] LABS: Alanine Aminotransferase 17 U/L (6-35); Albumin Level 3.6 g/dL (3.5-5.1); Alkaline Phosphatase 74 U/L (38-126); Anion Gap 7 mmol/L (8-16); Aspartate Amino Transferase 27 U/L (14-36); Bilirubin,Total 0.8 mg/dL (0.2-1.3); Blood Urea Nitrogen 12 mg/dL (7-17); Calcium 8.9 mg/dL (8.4-10.2); Carbon Dioxide 22 mmol/L (22-30); Chloride 110 mmol/L (98-107); Estimated CRCL calculation 109 ml/min; Estimated Glomerular Filt Rate > 60; Glucose 168 mg/dL (65-110); Potassium 3.6 mmol/L (3.4-5.0); Sodium 139 mmol/L (137-145)
[2023-04-12 08:08] LABS: Glucose Point of Care 169 mg/dl (65-105)
[2023-04-12] MEDS: FLUTICASONE/SALMETEROL 115-21 MCG INHALER 1 PUFF 2 PUFF INHALATION ×2 (08:35→19:59)
[2023-04-12] MEDS: INSULIN ASPART (*BKC) 100 UNITS/ML 20 UNITS SUB-Q ×2 (08:47→12:23)
[2023-04-12] MEDS: FUROSEMIDE 10 MG TABLET PO (08:51)
[2023-04-12] MEDS: ENOXAPARIN 40 MG/0.4 ML SYRINGE SUB-Q (08:51)
[2023-04-12] MEDS: AMOXICILLIN/CLAVULANATE K 875-125 MG TAB 1 TABLET PO ×2 (08:51→20:56)
[2023-04-12] MEDS: ESCITALOPRAM OXALATE 10 MG TABLET 20 MG PO (08:51)
[2023-04-12] MEDS: DOXYCYCLINE HYCLATE 100 MG TABLET PO ×2 (08:51→20:57)
[2023-04-12] MEDS: cloNIDine HCL 0.1 MG TABLET PO ×3 (08:52→17:36)
[2023-04-12] MEDS: PREGABALIN (*CRX) 75 MG CAPSULE 150 MG PO ×3 (09:00→17:36)
[2023-04-12] MEDS: HYDROXYCHLOROQUINE SULFATE 200 MG TABLET PO (09:00)
[2023-04-12] MEDS: PANTOPRAZOLE 40 MG TABLET PO (09:00)
[2023-04-12 10:45] LABS: NT Pro B Type Natriuretic Pept 1960 pg/mL (19.9-100)
[2023-04-12 11:24] LABS: Influenza A QL RT-PCR Negative (Negative); Influenza B QL RT-PCR Negative (Negative); RSV RNA, RT-PCR Negative (Negative); SARS-CoV-2 RNA PCR Negative (Negative)
--- NOTE | 2023-04-12 11:45 | PCRCNOTE ---
Home oxygen evaluation done , pt does not require home oxygen at this time.
--- NOTE | 2023-04-12 11:55 | PM.CNPUL ---
Assessment and Plan Assessment and plan (1) Asthma: Code(s): J45.909 - Unspecified asthma, uncomplicated Status: Acute Assessment and Plan: The patient carries a history of asthma with intermittent wheezing, triggers of hairspray, perfumes, chemicals, sinus congestion. a history of tobacco use with normal PFTs on 05/10/2020 with no bronchodilator response. currently on albuterol which she takes 2 times a month and had no respiratory limitations in her activities of daily living. Over the last 2 months she has had increasing wheezing episodes. I believe the patient does have asthma and recommend initiating step 3 therapy with Advair 230-21 at 1 puff b.i.d.. Continue rescue albuterol 2 puffs q.4 hours p.r.n. shortness of breath or wheezing. From a pulmonary perspective patient is ready to be discharged on these pulmonary medications: Advair 230-21 at 1 puff b.i.d. Rescue albuterol 2 puffs q.4 hours p.r.n. shortness of breath or wheezing No oxygen at rest, with ambulation or with sleep. Antibiotics per hospitalist for her osteomyelitis. Augmentin and doxycycline treatment are adequate for possible pneumonia. follow-up in the Pulmonary Clinic in 3-4 weeks. I gave her our business card and informed our supermarket manager. Discussed with Catrachita Ware, will sign off, call with questions (2) Rheumatoid arthritis: Code(s): M06.9 - Rheumatoid arthritis, unspecified Status: Acute Assessment and Plan: patient is being seen by Rheumatology in the past with a borderline positive rheumatoid factor with arthritis and was on methotrexate for 1 year and has been off methotrexate since approximately 09. She is currently on hydroxychloroquine for the last year. Her Ct scan has predominant upper lobe infiltrates and I will send serologies to exclude any autoimmune disease. Plan: I will order a JERRY screen that includes 11 different auto antibodies, an ANCA screen, a rheumatoid factor, anti CCP antibody, hypersensitivity pneumonitis panel, a CPK, an aldolase level, and myomarker 3 plus profile. (3) Dyspnea on exertion: Code(s): R06.09 - Other forms of dyspnea Status: Acute Assessment and Plan: Patient has worsening dyspnea on exertion since she came to the hospital. She states she has 10% better than she was a few days ago but not at her baseline. Her home O2 assessment shows rest room air saturation 94% and ambulatory room air saturation 92%. Her chest x-ray shows diffuse interstitial infiltrates and her BNP is increased to 1960. Her weight is up at least 3 kg. She is afebrile with no phlegm production and no leukocytosis. Plan: I suspect patient has worsening dyspnea on exertion and possibly her CT scan are related to fluid overload. Patient tells me she is on Lasix at home and was started on Lasix 10 mg p.o. q.a.m. yesterday. Would continue diuresis and follow-up with her PCP. (4) COBY (obstructive sleep apnea): Code(s): G47.33 - Obstructive sleep apnea (adult) (pediatric) Status: Acute Assessment and Plan: Regarding her obstructive sleep apnea, the patient tells me that in 2020 she had a sleep study in [facility] and was told she had sleep apnea and was prescribed a home mask and machine. She was prescribed a fullface mask and said that she could not tolerate this. She bought the machine and she has not used it since then. Plan: Patient will need an outpatient split night study. History of Present Illness History of Present Illness Consult date: 04/12/23 Chief complaint: Cellulitis, Diabetic Foot Wound Narrative: 06/2023: This is a new pulmonary consult for dyspnea. 52-year-old with a history of diabetes, hyperlipidemia, GERD, obstructive sleep apnea, asthma, joint pain. Patient presented on 04/06/2023 with a few months worth of lower leg swelling, fever, room air saturations 96%, erythematous right lower extremity with a white blood cell count of 15
[2023-04-12 12:23] LABS: Glucose Point of Care 162 mg/dl (65-105)
[2023-04-12] MEDS: FUROSEMIDE INJ 40 MG/4 ML VIAL IV PUSH (13:30)
[2023-04-12] MEDS: POTASSIUM CHLORIDE 20 MEQ ER TABLET 40 MEQ PO (13:30)
[2023-04-12 13:57] LABS: Creatine Kinase 36 U/L (30-135)
[2023-04-12 14:06] LABS: Rheumatoid Factor 15.6 IU/ML (<12)
[2023-04-12 14:15] LABS: Magnesium 1.4 mg/dL (1.6-2.3)
[2023-04-12 17:02] LABS: Glucose Point of Care 127 mg/dl (65-105)
--- NOTE | 2023-04-12 17:35 | P.PNIM_ITS ---
Progress Note: A&P Assessment and Plan (1) Cellulitis of leg, right: Code(s): L03.115 - Cellulitis of right lower limb Status: Acute Assessment and Plan: Unknown etiology -continue vancomycin IV PQ 20 4 hours -continue Flagyl p.o. q.8 hours -continue ceftriaxone 2 g Q 24 hours -blood cultures pending * 04/08-RLE edema and 2+ edema * MRI- consistent with non specific cellulitis * potentially due to diabetes as patient as R foot diabetic foot ulcer. * Blood cultures pending * Continue IV abx * General surgery to review MRI and appreciate further recommendations of care * Continue to monitor and note increase- elevate extremity * 04/09: Continue IV abx * Blood culture pending * MRI consistent with cellulitis * General surgery agrees on cellulitis diagnosis- assessed superficial foot wounds * Low grade temps. WBC 15.4 * No increase in edema or diffuse redness * 04/10/23: Cellulitis present to RLE. Less erythema today. Edema still present to foot and ankle area. 2+ pitting * IV abx de-escalated with decreased presentation and patient WBC 10.0. Afebrile this AM. * PO abx Augmentin and Doxycycline. * 04/11: Cellulitis site to RLE decreasing in erythema and edema. * Tolerating PO abx well. * 04/12: RLE with decreased redness and edema. * Tolerating PO abx * Patient expressed area look much better and feels less tight (2) Pneumonia: Qualifiers: Pneumonia type: due to unspecified organism Code(s): J18.9 - Pneumonia, unspecified organism Status: Acute Assessment and Plan: * 04/10: Patient expressed episode of dyspnea on exertion when she ambulated to restroom. On assessment O2 saturation was 90%. * CTA Chest ordered to R/O PE. CTA chest noted No pulmonary embolus identified, Multifocal pneumonia, worst in the mid and upper lung zones, Small pleural effusions. * O2 PRN and wean. O2 Stat >92% * PO abx will cover- Augmentin and Doxycycline. * Incentive spirometer ordered and neb treatments available. * 04/11: Patient on 2L O2 via NC at assessment. No respiratory distress noted. non labored respirations * Patient expressed concern for new dyspnea on exertion when she tries to ambulate. * Lungs clear at time of assessment. * Pulmonology consulted for new concerns * 04/12: Patient refused to wean O2, refused walking O2 study. Patient educated in importance and necessity of these measures. Argeed to trial. Preformed walking test with no oxygen * Pulmonology consulted and recommendations of care are appreciated as Dr Abdul notes patient carries a hx of asthma diagnoses with intermittent wheezing. For her asthma symptoms he recommend initiating step 3 therapy with Advair 230-21 at 1 puff b.i.d.. Continue rescue albuterol 2 puffs q.4 hours p.r.n. shortness of breath or wheezing. * He expressed that from a pulmonary standpoint patient patient oxygenation is appropriate and stable, she can follow up with pulmonology in 3-4 weeks. * suggested differential diagnosis related to fluid overload or Rheumatoid arthritis . Patient has been on Lasix at home and home dose was restarted. He recommended to diuresis with lasix and suggest patient follow-up with her PCP. Lasix IV order placed as appropriate. (3) Dyspnea on exertion: Code(s): R06.09 - Other forms of dyspnea Status: Acute Assessment and Plan: * See #2 * Fluid volume overload potentially do to IV abx use and immobility * she is concerned for heart failure and request a cardiac provider come explain this diagnosis to her immediately. This TORCH CUTTER educated patient on subj
--- NOTE | 2023-04-12 17:35 | PM.IMPN ---
Progress Note: A&P Assessment and Plan (1) Cellulitis of leg, right: Code(s): L03.115 - Cellulitis of right lower limb Status: Acute Assessment and Plan: Unknown etiology -continue vancomycin IV PQ 20 4 hours -continue Flagyl p.o. q.8 hours -continue ceftriaxone 2 g Q 24 hours -blood cultures pending 04/08-RLE edema and 2+ edema MRI- consistent with non specific cellulitis potentially due to diabetes as patient as R foot diabetic foot ulcer. Blood cultures pending Continue IV abx General surgery to review MRI and appreciate further recommendations of care Continue to monitor and note increase- elevate extremity 04/09: Continue IV abx Blood culture pending MRI consistent with cellulitis General surgery agrees on cellulitis diagnosis- assessed superficial foot wounds Low grade temps. WBC 15.4 No increase in edema or diffuse redness 04/10/23: Cellulitis present to RLE. Less erythema today. Edema still present to foot and ankle area. 2+ pitting IV abx de-escalated with decreased presentation and patient WBC 10.0. Afebrile this AM. PO abx Augmentin and Doxycycline. 04/11: Cellulitis site to RLE decreasing in erythema and edema. Tolerating PO abx well. 04/12: RLE with decreased redness and edema. Tolerating PO abx Patient expressed area look much better and feels less tight (2) Pneumonia: Qualifiers: Pneumonia type: due to unspecified organism Code(s): J18.9 - Pneumonia, unspecified organism Status: Acute Assessment and Plan: 04/10: Patient expressed episode of dyspnea on exertion when she ambulated to restroom. On assessment O2 saturation was 90%. CTA Chest ordered to R/O PE. CTA chest noted No pulmonary embolus identified, Multifocal pneumonia, worst in the mid and upper lung zones, Small pleural effusions. O2 PRN and wean. O2 Stat >92% PO abx will cover- Augmentin and Doxycycline. Incentive spirometer ordered and neb treatments available. 04/11: Patient on 2L O2 via NC at assessment. No respiratory distress noted. non labored respirations Patient expressed concern for new dyspnea on exertion when she tries to ambulate. Lungs clear at time of assessment. Pulmonology consulted for new concerns 04/12: Patient refused to wean O2, refused walking O2 study. Patient educated in importance and necessity of these measures. Argeed to trial. Preformed walking test with no oxygen Pulmonology consulted and recommendations of care are appreciated as Dr Abdul notes patient carries a hx of asthma diagnoses with intermittent wheezing. For her asthma symptoms he recommend initiating step 3 therapy with Advair 230-21 at 1 puff b.i.d.. Continue rescue albuterol 2 puffs q.4 hours p.r.n. shortness of breath or wheezing. He expressed that from a pulmonary standpoint patient patient oxygenation is appropriate and stable, she can follow up with pulmonology in 3-4 weeks. suggested differential diagnosis related to fluid overload or Rheumatoid arthritis . Patient has been on Lasix at home and home dose was restarted. He recommended to diuresis with lasix and suggest patient follow-up with her PCP. Lasix IV order placed as appropriate. (3) Dyspnea on exertion: Code(s): R06.09 - Other forms of dyspnea Status: Acute Assessment and Plan: See #2 Fluid volume overload potentially do to IV abx use and immobility she is concerned for heart failure and request a cardiac provider come explain this diagnosis to her immediately. This HEALTH INFORMATION CODER educated patient on subject of potential dx and educated that she could be followed by her PCP and outpatient cardiology as needed. She denied further options and continued to request cardiac providers. Cardiac consult placed and Hospitalist service appreciate recommendations of care. (4) Osteomyelitis of ankle or foot, right, acute: Code(s): M86.171 - Other acute osteomyelitis, right ankle and foot Status: Ac
[2023-04-12 20:41] LABS: Glucose Point of Care 144 mg/dl (65-105)
[2023-04-12] MEDS: ASPIRIN 81 MG ENTERIC TABLET PO (20:56)
[2023-04-12] MEDS: carisoprodoL (*CRX) 350 MG TABLET PO (20:57)
[2023-04-12] MEDS: POTASSIUM CHLORIDE 20 MEQ ER TABLET PO (20:57)
[2023-04-12] MEDS: amLODIPine BESYLATE 5 MG TABLET 10 MG PO (20:58)
[2023-04-13] VITALS (17 sets, daily range): BP systolic 121–178; BP diastolic 70–81; PULSE 64–79; RESP 16–22; TEMP 36.1–36.3; O2SAT 95–100
--- NOTE | 2023-04-13 | ECHO_ITS ---
Patient Info Name: Regina Howell Age: 52 years : 1970 Gender: Female Ht: 65 in Wt: 239 lbs BSA: 2.28 m2 HR: 76 bpm BP: 147 / 71 mmHg Heart Rhythm: Sinus Rhythm Exam Date: 04/13/2023 10:26 AM Exam Location: Echo Lab Patient Status: Inpatient Admit Date: 04/06/2023 Staff Ordering Physician: Catrachita Ware APRN Tieing Machine Operator: Ann-Marie Anderson RCS Attending Provider: Erica Holland MD Exam Type: CA echo doppler color flow Study Info Indications R06.09 - Other forms of dyspnea Complete two-dimensional, color flow and Doppler transthoracic echocardiogram is performed. Summary 1. Complete two-dimensional, color flow and Doppler transthoracic echocardiogram is performed. 2. Normal left ventricular size with borderline concentric hypertrophy. Hyperdynamic left ventricular systolic function, ejection fraction greater than 70%.No focal wall motion abnormalities. Grade 2 diastolic dysfunction is present. 3. Borderline pulmonary hypertension, estimated pulmonary arterial systolic pressure is 36 mmHg. 4. No significant valve disease. 5. Left atrial chamber dimension is moderately enlarged. 6. Normal sinus rhythm. Left Ventricle Left ventricular chamber dimension is normal. Left ventricular systolic function is hyperdynamic, estimated at >70%. There is mildly increased left ventricular wall thickness. Left ventricular septal wall motion is normal. The left ventricular diastolic function is grade II diastolic dysfunction. Right Ventricle Right ventricular chamber dimension is normal. Right ventricular systolic function is normal. Left Atria Left atrial chamber dimension is moderately enlarged. Right Atria Right atrial chamber dimension is normal. Aortic Valve The aortic valve is trileaflet. There is no aortic valve sclerosis. There is no aortic valve stenosis. There is no aortic valve regurgitation. Pulmonic Valve The pulmonic valve is normal. There is no pulmonic valve stenosis. There is no pulmonic regurgitation. Mitral Valve The mitral valve has thickened leaflets. There is no mitral valve stenosis. There is no mitral valve regurgitation. The mitral valve annulus is mildly calcified. Tricuspid Valve The tricuspid valve leaflets are normal. There is no significant tricuspid valve stenosis. There is trace tricuspid valve regurgitation. Borderline pulmonary hypertension, estimated pulmonary arterial systolic pressure is 36 mmHg. Pericardium/Pleural The pericardium appears normal. There is no pericardial effusion. Inferior Vena Cava Normal inferior vena cava with >50% collapse upon inspiration consistent with Empty right atrial pressure, 10 mmHg. Aorta The aortic root size at the sinus of Valsalva is normal. The prox ascending aorta size is normal. Left Ventricular Outflow Tract Name Value Normal LVOT 2D LVOT Diameter 2.0 cm LVOT Doppler LVOT Peak Gradient 8 mmHg LVOT Mean Gradient 4 mmHg LVOT VTI 34 cm LVOT VTI/AV VTI Ratio 1.0 LVOT Stroke Volume 106 ml LVOT CO 18.3 l/min LVOT
[2023-04-13] MEDS: IPRATROPIUM 0.5 MG/ALBUTEROL SULFATE 2.5 MG AMPUL.NEB 3 ML INHALATION ×4 (02:05→19:42)
[2023-04-13] MEDS: HYDROcodone/acetaminophen (*CRX) 10-325 MG TABLET 1 TAB PO ×3 (03:12→21:02)
[2023-04-13] MEDS: nadoloL 20 MG TABLET 80 MG PO ×3 (05:32→21:03)
[2023-04-13] MEDS: SALINE LOCK FLUSH 10 ML IV PUSH ×3 (05:33→21:03)
[2023-04-13 06:44] LABS: Hematocrit 34.4 % (37.0-47.0); Hemoglobin 10.8 g/dL (12.0-15.0); Mean Corpuscular HGB Conc 31.4 g/dl (32-36); Mean Corpuscular Hemoglobin 27.3 pg (26-34); Mean Corpuscular Volume 87.1 fl (80-100); Mean Platelet Volume 11.2 fl (7.4-10.4); Platelet Count Result 269 k/mm3 (150-375); Red Blood Count 3.95 M/mm3 (4.2-5.4); Red Cell Distribution Width 14.5 % (11.5-14.5); White Blood Count 6.9 K/mm3 (4.5-10.0)
[2023-04-13 06:57] LABS: Alanine Aminotransferase 18 U/L (6-35); Albumin Level 3.6 g/dL (3.5-5.1); Alkaline Phosphatase 84 U/L (38-126); Anion Gap 10 mmol/L (8-16); Aspartate Amino Transferase 22 U/L (14-36); Bilirubin,Total 0.6 mg/dL (0.2-1.3); Blood Urea Nitrogen 12 mg/dL (7-17); Carbon Dioxide 24 mmol/L (22-30); Chloride 106 mmol/L (98-107); Estimated CRCL calculation 113 ml/min; Estimated Glomerular Filt Rate > 60; Glucose 181 mg/dL (65-110); Sodium 140 mmol/L (137-145)
[2023-04-13 07:33] LABS: Glucose Point of Care 185 mg/dl (65-105)
[2023-04-13] MEDS: FLUTICASONE/SALMETEROL 115-21 MCG INHALER 1 PUFF 2 PUFF INHALATION ×2 (07:33→19:44)
--- NOTE | 2023-04-13 08:51 | PM.CNCAR ---
Assessment and Plan Assessment and plan (1) Fluid overload: Code(s): E87.70 - Fluid overload, unspecified Status: Acute Plan This is a 52-year-old woman who likely has significant lower limit he edema with untreated sleep apnea and my suspicion probably has a picture of cor pulmonale. She has no other symptoms of left-sided heart failure. She does have some aortic valve sclerosis on exam which is somewhat curious as she is a little bit young for this. By physical exam it does not sound like she has significant aortic stenosis. She describes being evaluated by another coordinator of evaluation in [place] 2-3 years ago and no concern was raised regarding significant valvular heart disease at that time. Another echocardiogram is going to happen today I will be happy to review that when the study is done. Cardiac-morris she could be discharged from the hospital in my opinion she indicates she is pending my approval for her discharge which seems curious since she has been in the hospital for about a week with this. I will try to get echocardiographic results on the chart as soon as possible to facilitate her discharge. Smooth Wang MD [facility] History of Present Illness History of Present Illness Consult date/time: 04/13/23 08:51 Reason For Visit: Cellulitis, Diabetic Foot Wound Narrative: This is a 52-year-old woman who I am seeing to the hospitalist because of for with which she was hospitalized a week ago and apparently there was concern at this juncture that congestive heart failure could issue. She is not known to have any cardiac problems in the past other than a cardiac murmur that she is aware of. She states that she came to the hospital last week because of symptoms of increasing lower extremity edema, fever and in the emergency room she was found to have cellulitis of her right lower extremity. She has been treated with antibiotics and some diuretics she is been improving enough where they believe she is a candidate for discharge at this time. Because of this edema she requested to see a coordinator of evaluation while she is here. She does not have any symptoms of orthopnea PND no chest pain or significant shortness of breath. She has been chronically overweight she or her BMI is close to morbid obesity at 39.She also carries the diagnosis of hypertension, dyslipidemia and obstructive sleep apnea for which is untreated as she had has never used her CPAP device. She reports to have seen a coordinator of evaluation in the [place] area about 2-3 years ago for evaluation of edema and was told that there was no significant cardiac problem at that time.She remembers having had an echocardiogram done at that time and she was told that there was no significant cardiac issue to about which she should be concern. Another echocardiogram was ordered by the hospitalist which is of going to occur later today. Review of Systems Constitutional: Constitutional: Reports lethargy Eyes: Eyes: Reports no additional eye complaints ENT: Reports system reviewed and no additional complaints, except as documented Cardiovascular: Cardiovascular: Reports no additional cardiovascular complaints Respiratory: Respiratory: Reports dyspnea on exertion Gastrointestinal: Gastrointestinal: Reports no additional gastrointestinal complaints Musculoskeletal: Musculoskeletal: Reports no additional musculoskeletal complaints Integumentary/Breasts: Skin/Breast: Reports system reviewed and no additional complaints, except as docu Neurologic: Reports system reviewed and no additional complaints, except as documented Endocrine: Endocrine: Reports no additional endocrine complaints Hematologic/Lymphatic: Hematologic/Lymphatic: Reports no additional hematologic/lymphatic complaints Allergic/Immunologic: Allergic/Immunologic: Reports no additional allergic/immunologic complaints [facility] Past Medical History Medical History (Updated 04/12/23 @ 18:25 by Catrachita Ware APRN)
[2023-04-13 09:34] LABS: Glucose Point of Care 219 mg/dl (65-105)
[2023-04-13] MEDS: ESCITALOPRAM OXALATE 10 MG TABLET 20 MG PO (09:36)
[2023-04-13] MEDS: PREGABALIN (*CRX) 75 MG CAPSULE 150 MG PO ×3 (09:36→17:54)
[2023-04-13] MEDS: POTASSIUM CHLORIDE 20 MEQ ER TABLET 40 MEQ PO (09:37)
[2023-04-13] MEDS: DOXYCYCLINE HYCLATE 100 MG TABLET PO ×2 (09:37→21:03)
[2023-04-13] MEDS: PANTOPRAZOLE 40 MG TABLET PO (09:38)
[2023-04-13] MEDS: cloNIDine HCL 0.1 MG TABLET PO ×3 (09:38→17:54)
[2023-04-13] MEDS: FUROSEMIDE 10 MG TABLET PO (09:38)
[2023-04-13] MEDS: AMOXICILLIN/CLAVULANATE K 875-125 MG TAB 1 TABLET PO ×2 (09:38→21:02)
[2023-04-13] MEDS: HYDROXYCHLOROQUINE SULFATE 200 MG TABLET PO (09:38)
[2023-04-13] MEDS: INSULIN ASPART (*BKC) 100 UNITS/ML 20 UNITS SUB-Q ×3 (09:39→17:54)
[2023-04-13] MEDS: ENOXAPARIN 40 MG/0.4 ML SYRINGE SUB-Q (09:39)
--- NOTE | 2023-04-13 10:25 | P.PNIM_ITS ---
Progress Note: A&P Assessment and Plan (1) Cellulitis of leg, right: Code(s): L03.115 - Cellulitis of right lower limb Status: Acute Assessment and Plan: Unknown etiology -continue vancomycin IV PQ 20 4 hours -continue Flagyl p.o. q.8 hours -continue ceftriaxone 2 g Q 24 hours -blood cultures pending * 04/08-RLE edema and 2+ edema * MRI- consistent with non specific cellulitis * potentially due to diabetes as patient as R foot diabetic foot ulcer. * Blood cultures pending * Continue IV abx * General surgery to review MRI and appreciate further recommendations of care * Continue to monitor and note increase- elevate extremity * 04/09: Continue IV abx * Blood culture pending * MRI consistent with cellulitis * General surgery agrees on cellulitis diagnosis- assessed superficial foot wounds * Low grade temps. WBC 15.4 * No increase in edema or diffuse redness * 04/10/23: Cellulitis present to RLE. Less erythema today. Edema still present to foot and ankle area. 2+ pitting * IV abx de-escalated with decreased presentation and patient WBC 10.0. Afebrile this AM. * PO abx Augmentin and Doxycycline. * 04/11: Cellulitis site to RLE decreasing in erythema and edema. * Tolerating PO abx well. * 04/12: RLE with decreased redness and edema. * Tolerating PO abx * Patient expressed area look much better and feels less tight * 04/13: RLE redness and edema nearly absent at time of assessment * Patient denies pain or further concern over this area * Patient has been stable for discharge since converting to PO abx on 04/10. (2) Pneumonia: Qualifiers: Pneumonia type: due to unspecified organism Code(s): J18.9 - Pneumonia, unspecified organism Status: Acute Assessment and Plan: * 04/10: Patient expressed episode of dyspnea on exertion when she ambulated to restroom. On assessment O2 saturation was 90%. * CTA Chest ordered to R/O PE. CTA chest noted No pulmonary embolus identified, Multifocal pneumonia, worst in the mid and upper lung zones, Small pleural effusions. * O2 PRN and wean. O2 Stat >92% * PO abx will cover- Augmentin and Doxycycline. * Incentive spirometer ordered and neb treatments available. * 04/11: Patient on 2L O2 via NC at assessment. No respiratory distress noted. non labored respirations * Patient expressed concern for new dyspnea on exertion when she tries to ambulate. * Lungs clear at time of assessment. * Pulmonology consulted for new concerns * 04/12: Patient refused to wean O2, refused walking O2 study. Patient educated in importance and necessity of these measures. Argeed to trial. Preformed walking test with no oxygen * Pulmonology consulted and recommendations of care are appreciated as Dr Abdul notes patient carries a hx of asthma diagnoses with intermittent wheezing. For her asthma symptoms he recommend initiating step 3 therapy with Advair 230-21 at 1 puff b.i.d.. Continue rescue albuterol 2 puffs q.4 hours p.r.n. shortness of breath or wheezing. * He expressed that from a pulmonary standpoint patient patient oxygenation is appropriate and stable, she can follow up with pulmonology in 3-4 weeks. * suggested differential diagnosis related to fluid overload or Rheumatoid arthritis . Patient has been on Lasix at home and home dose was restarted. He recommended to diuresis with lasix and suggest patient follow-up with her PCP. Lasix IV order placed as appropriate. * 04/13: Patient is on room air at time of assessment, no respiratory distress noted. * Patient speaks in full sentences without increased respiratory effor
--- NOTE | 2023-04-13 10:25 | PM.IMPN ---
Progress Note: A&P Assessment and Plan (1) Cellulitis of leg, right: Code(s): L03.115 - Cellulitis of right lower limb Status: Acute Assessment and Plan: Unknown etiology -continue vancomycin IV PQ 20 4 hours -continue Flagyl p.o. q.8 hours -continue ceftriaxone 2 g Q 24 hours -blood cultures pending 04/08-RLE edema and 2+ edema MRI- consistent with non specific cellulitis potentially due to diabetes as patient as R foot diabetic foot ulcer. Blood cultures pending Continue IV abx General surgery to review MRI and appreciate further recommendations of care Continue to monitor and note increase- elevate extremity 04/09: Continue IV abx Blood culture pending MRI consistent with cellulitis General surgery agrees on cellulitis diagnosis- assessed superficial foot wounds Low grade temps. WBC 15.4 No increase in edema or diffuse redness 04/10/23: Cellulitis present to RLE. Less erythema today. Edema still present to foot and ankle area. 2+ pitting IV abx de-escalated with decreased presentation and patient WBC 10.0. Afebrile this AM. PO abx Augmentin and Doxycycline. 04/11: Cellulitis site to RLE decreasing in erythema and edema. Tolerating PO abx well. 04/12: RLE with decreased redness and edema. Tolerating PO abx Patient expressed area look much better and feels less tight 04/13: RLE redness and edema nearly absent at time of assessment Patient denies pain or further concern over this area Patient has been stable for discharge since converting to PO abx on 04/10. (2) Pneumonia: Qualifiers: Pneumonia type: due to unspecified organism Code(s): J18.9 - Pneumonia, unspecified organism Status: Acute Assessment and Plan: 04/10: Patient expressed episode of dyspnea on exertion when she ambulated to restroom. On assessment O2 saturation was 90%. CTA Chest ordered to R/O PE. CTA chest noted No pulmonary embolus identified, Multifocal pneumonia, worst in the mid and upper lung zones, Small pleural effusions. O2 PRN and wean. O2 Stat >92% PO abx will cover- Augmentin and Doxycycline. Incentive spirometer ordered and neb treatments available. 04/11: Patient on 2L O2 via NC at assessment. No respiratory distress noted. non labored respirations Patient expressed concern for new dyspnea on exertion when she tries to ambulate. Lungs clear at time of assessment. Pulmonology consulted for new concerns 04/12: Patient refused to wean O2, refused walking O2 study. Patient educated in importance and necessity of these measures. Argeed to trial. Preformed walking test with no oxygen Pulmonology consulted and recommendations of care are appreciated as Dr Abdul notes patient carries a hx of asthma diagnoses with intermittent wheezing. For her asthma symptoms he recommend initiating step 3 therapy with Advair 230-21 at 1 puff b.i.d.. Continue rescue albuterol 2 puffs q.4 hours p.r.n. shortness of breath or wheezing. He expressed that from a pulmonary standpoint patient patient oxygenation is appropriate and stable, she can follow up with pulmonology in 3-4 weeks. suggested differential diagnosis related to fluid overload or Rheumatoid arthritis . Patient has been on Lasix at home and home dose was restarted. He recommended to diuresis with lasix and suggest patient follow-up with her PCP. Lasix IV order placed as appropriate. 04/13: Patient is on room air at time of assessment, no respiratory distress noted. Patient speaks in full sentences without increased respiratory effort. No couch noted upon assessment. Lungs sounds are diminished but clear Patient has personal pulse-ox to monitor oxygen saturations as desires. Blood cultures complete and show no growth for 5 days. Patient will be discharged with pulmonology recommendations and follow up information (3) Dyspnea on exertion: Code(s): R06.09 - Other forms of dyspnea Status: Acute As
[2023-04-13 11:23] LABS: Glucose Point of Care 192 mg/dl (65-105)
--- NOTE | 2023-04-13 11:23 | PCNWS ---
Weekly nutritional screen. Patient is tolerating current Diabetic diet with adequate intake 75-100%. No weight loss reported. No nutritional needs at this time.
[2023-04-13] MEDS: ACETAMINOPHEN 325 MG TABLET 650 MG PO (15:01)
[2023-04-13 16:21] LABS: Glucose Point of Care 117 mg/dl (65-105)
[2023-04-13 20:03] LABS: Glucose Point of Care 113 mg/dl (65-105)
[2023-04-13] MEDS: amLODIPine BESYLATE 5 MG TABLET 10 MG PO (21:02)
[2023-04-13] MEDS: ASPIRIN 81 MG ENTERIC TABLET PO (21:02)
[2023-04-13] MEDS: carisoprodoL (*CRX) 350 MG TABLET PO (21:02)
[2023-04-13] MEDS: POTASSIUM CHLORIDE 20 MEQ ER TABLET PO (21:03)
[2023-04-13] MEDS: traZODone HCL 50 MG TABLET PO (21:03)
[2023-04-14 05:28] VITALS: BP 144/74; PULSE 72; RESP 18; TEMP 36.4; O2SAT 96
[2023-04-14] MEDS: SALINE LOCK FLUSH 10 ML IV PUSH (06:18)
[2023-04-14] MEDS: nadoloL 20 MG TABLET 80 MG PO (06:18)
[2023-04-14] MEDS: ACETAMINOPHEN 325 MG TABLET 650 MG PO (06:18)
[2023-04-14 06:54] LABS: Hematocrit 32.5 % (37.0-47.0); Hemoglobin 10.2 g/dL (12.0-15.0); Mean Corpuscular HGB Conc 31.4 g/dl (32-36); Mean Corpuscular Hemoglobin 27.6 pg (26-34); Mean Corpuscular Volume 88.1 fl (80-100); Mean Platelet Volume 10.6 fl (7.4-10.4); Platelet Count Result 305 k/mm3 (150-375); Red Blood Count 3.69 M/mm3 (4.2-5.4); Red Cell Distribution Width 14.6 % (11.5-14.5); White Blood Count 6.7 K/mm3 (4.5-10.0)
[2023-04-14 07:00] LABS: Alanine Aminotransferase 19 U/L (6-35); Albumin Level 3.5 g/dL (3.5-5.1); Alkaline Phosphatase 78 U/L (38-126); Anion Gap 8 mmol/L (8-16); Aspartate Amino Transferase 30 U/L (14-36); Bilirubin,Total 0.6 mg/dL (0.2-1.3); Blood Urea Nitrogen 15 mg/dL (7-17); Calcium 8.9 mg/dL (8.4-10.2); Carbon Dioxide 24 mmol/L (22-30); Chloride 108 mmol/L (98-107); Estimated CRCL calculation 113 ml/min; Estimated Glomerular Filt Rate > 60; Glucose 154 mg/dL (65-110); Magnesium 1.4 mg/dL (1.6-2.3); Potassium 3.5 mmol/L (3.4-5.0); Sodium 140 mmol/L (137-145)
[2023-04-14 07:56] LABS: Glucose Point of Care 156 mg/dl (65-105)
--- NOTE | 2023-04-14 08:29 | P.DS_ITS ---
DS: Admitting Diagnosis Discharge Date 04/14/23 Admitting Diagnosis Cellulitis DS: Discharge Diagnosis Discharge Diagnosis (1) Cellulitis of leg, right: Code(s): L03.115 - Cellulitis of right lower limb Status: Acute Assessment and Plan: Unknown etiology -continue vancomycin IV PQ 20 4 hours -continue Flagyl p.o. q.8 hours -continue ceftriaxone 2 g Q 24 hours -blood cultures pending * 04/08-RLE edema and 2+ edema * MRI- consistent with non specific cellulitis * potentially due to diabetes as patient as R foot diabetic foot ulcer. * Blood cultures pending * Continue IV abx * General surgery to review MRI and appreciate further recommendations of care * Continue to monitor and note increase- elevate extremity * 04/09: Continue IV abx * Blood culture pending * MRI consistent with cellulitis * General surgery agrees on cellulitis diagnosis- assessed superficial foot wounds * Low grade temps. WBC 15.4 * No increase in edema or diffuse redness * 04/10/23: Cellulitis present to RLE. Less erythema today. Edema still present to foot and ankle area. 2+ pitting * IV abx de-escalated with decreased presentation and patient WBC 10.0. Afebrile this AM. * PO abx Augmentin and Doxycycline. * 04/11: Cellulitis site to RLE decreasing in erythema and edema. * Tolerating PO abx well. * 04/12: RLE with decreased redness and edema. * Tolerating PO abx * Patient expressed area look much better and feels less tight * 04/13: RLE redness and edema nearly absent at time of assessment * Patient denies pain or further concern over this area * Patient has been stable for discharge since converting to PO abx on 04/10. * 04/14: RLE without edema or redness. Patient denies pain to this evelyn. Patient will be discharged home today (2) Pneumonia: Qualifiers: Pneumonia type: due to unspecified organism Code(s): J18.9 - Pneumonia, unspecified organism Status: Acute Assessment and Plan: * 04/10: Patient expressed episode of dyspnea on exertion when she ambulated to restroom. On assessment O2 saturation was 90%. * CTA Chest ordered to R/O PE. CTA chest noted No pulmonary embolus identified, Multifocal pneumonia, worst in the mid and upper lung zones, Small pleural effusions. * O2 PRN and wean. O2 Stat >92% * PO abx will cover- Augmentin and Doxycycline. * Incentive spirometer ordered and neb treatments available. * 04/11: Patient on 2L O2 via NC at assessment. No respiratory distress noted. non labored respirations * Patient expressed concern for new dyspnea on exertion when she tries to ambulate. * Lungs clear at time of assessment. * Pulmonology consulted for new concerns * 04/12: Patient refused to wean O2, refused walking O2 study. Patient educated i n importance and necessity of these measures. Argeed to trial. Preformed walking test with no oxygen * Pulmonology consulted and recommendations of care are appreciated as Dr Abdul notes patient carries a hx of asthma diagnoses with intermittent wheezing. For her asthma symptoms he recommend initiating step 3 therapy with Advair 230-21 at 1 puff b.i.d.. Continue rescue albuterol 2 puffs q.4 hours p.r.n. shortness of breath or wheezing. * He expressed that from a pulmonary standpoint patient patient oxygenation is appropriate and stable, she can follow up with pulmonology in 3-4 weeks. * suggested differential diagnosis related to fluid overload or Rheumatoid arthritis . Patient has been on Lasix at home and home dose was restarted. He recommended to diuresis with lasix and suggest patient fol
--- NOTE | 2023-04-14 08:29 | PM.DS ---
DS: Admitting Diagnosis Discharge Date 04/14/23 Admitting Diagnosis Cellulitis DS: Discharge Diagnosis Discharge Diagnosis (1) Cellulitis of leg, right: Code(s): L03.115 - Cellulitis of right lower limb Status: Acute Assessment and Plan: Unknown etiology -continue vancomycin IV PQ 20 4 hours -continue Flagyl p.o. q.8 hours -continue ceftriaxone 2 g Q 24 hours -blood cultures pending 04/08-RLE edema and 2+ edema MRI- consistent with non specific cellulitis potentially due to diabetes as patient as R foot diabetic foot ulcer. Blood cultures pending Continue IV abx General surgery to review MRI and appreciate further recommendations of care Continue to monitor and note increase- elevate extremity 04/09: Continue IV abx Blood culture pending MRI consistent with cellulitis General surgery agrees on cellulitis diagnosis- assessed superficial foot wounds Low grade temps. WBC 15.4 No increase in edema or diffuse redness 04/10/23: Cellulitis present to RLE. Less erythema today. Edema still present to foot and ankle area. 2+ pitting IV abx de-escalated with decreased presentation and patient WBC 10.0. Afebrile this AM. PO abx Augmentin and Doxycycline. 04/11: Cellulitis site to RLE decreasing in erythema and edema. Tolerating PO abx well. 04/12: RLE with decreased redness and edema. Tolerating PO abx Patient expressed area look much better and feels less tight 04/13: RLE redness and edema nearly absent at time of assessment Patient denies pain or further concern over this area Patient has been stable for discharge since converting to PO abx on 04/10. 04/14: RLE without edema or redness. Patient denies pain to this evelyn. Patient will be discharged home today (2) Pneumonia: Qualifiers: Pneumonia type: due to unspecified organism Code(s): J18.9 - Pneumonia, unspecified organism Status: Acute Assessment and Plan: 04/10: Patient expressed episode of dyspnea on exertion when she ambulated to restroom. On assessment O2 saturation was 90%. CTA Chest ordered to R/O PE. CTA chest noted No pulmonary embolus identified, Multifocal pneumonia, worst in the mid and upper lung zones, Small pleural effusions. O2 PRN and wean. O2 Stat >92% PO abx will cover- Augmentin and Doxycycline. Incentive spirometer ordered and neb treatments available. 04/11: Patient on 2L O2 via NC at assessment. No respiratory distress noted. non labored respirations Patient expressed concern for new dyspnea on exertion when she tries to ambulate. Lungs clear at time of assessment. Pulmonology consulted for new concerns 04/12: Patient refused to wean O2, refused walking O2 study. Patient educated in importance and necessity of these measures. Argeed to trial. Preformed walking test with no oxygen Pulmonology consulted and recommendations of care are appreciated as Dr Abdul notes patient carries a hx of asthma diagnoses with intermittent wheezing. For her asthma symptoms he recommend initiating step 3 therapy with Advair 230-21 at 1 puff b.i.d.. Continue rescue albuterol 2 puffs q.4 hours p.r.n. shortness of breath or wheezing. He expressed that from a pulmonary standpoint patient patient oxygenation is appropriate and stable, she can follow up with pulmonology in 3-4 weeks. suggested differential diagnosis related to fluid overload or Rheumatoid arthritis . Patient has been on Lasix at home and home dose was restarted. He recommended to diuresis with lasix and suggest patient follow-up with her PCP. Lasix IV order placed as appropriate. 04/13: Patient is on room air at time of assessment, no respiratory distress noted. Patient speaks in full sentences without increased respiratory effort. No cough noted upon assessment. Lungs sounds are diminished but clear Patient has personal pulse-ox to monitor oxygen saturations as desires. Blood cultures complete and show no growth for 5
[2023-04-14] MEDS: PREGABALIN (*CRX) 75 MG CAPSULE 150 MG PO ×2 (08:40→12:35)
[2023-04-14] MEDS: PANTOPRAZOLE 40 MG TABLET PO (08:41)
[2023-04-14] MEDS: ESCITALOPRAM OXALATE 10 MG TABLET 20 MG PO (08:41)
[2023-04-14] MEDS: HYDROXYCHLOROQUINE SULFATE 200 MG TABLET PO (08:41)
[2023-04-14] MEDS: FUROSEMIDE 10 MG TABLET PO (08:41)
[2023-04-14] MEDS: INSULIN ASPART (*BKC) 100 UNITS/ML 20 UNITS SUB-Q ×2 (08:41→12:35)
[2023-04-14] MEDS: cloNIDine HCL 0.1 MG TABLET PO ×2 (08:41→12:35)
[2023-04-14] MEDS: AMOXICILLIN/CLAVULANATE K 875-125 MG TAB 1 TABLET PO (08:41)
[2023-04-14] MEDS: FLUTICASONE/SALMETEROL 115-21 MCG INHALER 1 PUFF 2 PUFF INHALATION (08:54)
[2023-04-14] MEDS: IPRATROPIUM 0.5 MG/ALBUTEROL SULFATE 2.5 MG AMPUL.NEB 3 ML INHALATION ×2 (08:54→13:20)
[2023-04-14 08:55] VITALS: PULSE 76; RESP 20; O2SAT 95
[2023-04-14] MEDS: DOXYCYCLINE HYCLATE 100 MG TABLET PO (09:01)
[2023-04-14] MEDS: ENOXAPARIN 40 MG/0.4 ML SYRINGE SUB-Q (09:01)
[2023-04-14 09:04] VITALS: PULSE 75; RESP 20
[2023-04-14 11:47] LABS: Glucose Point of Care 167 mg/dl (65-105)
[2023-04-14 13:23] VITALS: PULSE 71; RESP 15
[2023-04-14 13:33] VITALS: PULSE 69; RESP 16
[2023-04-14 14:00] VITALS: BP 145/70; PULSE 71; RESP 16; TEMP 36.5; O2SAT 97
--- NOTE | 2023-04-14 14:34 | PM.PNCARD ---
Progress Note: A&P Assessment and Plan (1) Fluid overload: Code(s): E87.70 - Fluid overload, unspecified Status: Acute (2) Diastolic dysfunction: Code(s): I51.89 - Other ill-defined heart diseases Status: Acute Assessment and Plan: This is a 52-year-old woman who likely has significant lower limit he edema with untreated sleep apnea and my suspicion probably has a picture of cor pulmonale. Her echocardiogram demonstrated normal LV systolic function with no wall motion abnormalities. She has grade II diastolic dysfunction. I discussed this finding with her and management of this problem including weight loss and blood pressure control. Her sleep apnea also needs to be addressed. I will arrange for her to follow up in our office to ensure blood pressure control. Subjective Date/time seen: 04/14/23 14:34 Interval history: Cardiology follow up for volume overload Feels okay today. Right leg edema and redness continues to improve. She does not have shortness of breath or chest pain. Review of Systems Constitutional: Constitutional: Reports lethargy Eyes: Eyes: Reports no additional eye complaints ENT: Reports system reviewed and no additional complaints, except as documented Cardiovascular: Cardiovascular: Reports no additional cardiovascular complaints and Reports dyspnea on exertion Respiratory: Respiratory: Reports dyspnea on exertion Gastrointestinal: Gastrointestinal: Reports no additional gastrointestinal complaints Musculoskeletal: Musculoskeletal: Reports no additional musculoskeletal complaints Integumentary/Breasts: Skin/Breast: Reports system reviewed and no additional complaints, except as docu Neurologic: Reports system reviewed and no additional complaints, except as documented Endocrine: Endocrine: Reports no additional endocrine complaints Hematologic/Lymphatic: Hematologic/Lymphatic: Reports no additional hematologic/lymphatic complaints Allergic/Immunologic: Allergic/Immunologic: Reports no additional allergic/immunologic complaints Exam HENMT: Mouth: Yes moist mucous membranes Eyes: Sclera: sclerae normal Neck: Neck: supple Other: Very difficult to comment upon jugular venous pressure given her body habitus Resp: Effort & Inspection: normal respiratory effort Auscultation: clear to auscultation bilaterally Other: Breath sounds are distant but otherwise clear Cardio: Rate: regular rate Rhythm: regular rhythm Heart sounds: Murmur heart sound present systolic GI: Auscultation: normal bowel sounds Skin: General skin exam: normal color Neuro: Other: Alert and oriented x3 Extrem: Other: Good perfusion, resolving cellulitis of the right calf, Objective Data Vital Signs Vital Signs: Vital Signs - 24 hr 04/13/23 15:07 04/13/23 17:51 04/13/23 19:44 Temperature Pulse Rate 70 70 69 Respiratory Rate 18 Blood Pressure 153/75 H Pulse Oximetry 97 Oxygen Delivery Fraction of Inspired Oxygen 04/13/23 19:45 04/13/23 19:51 04/13/23 20:12 Temperature 36.2 C L Pulse Rate 72 65 Respiratory Rate 18 18 Blood Pressure 142/70 H Pulse Oximetry 95 97 Oxygen Delivery Room Air Fraction of Inspired Oxygen 04/13/23 20:00 04/14/23 05:28 04/14/23 08:55 Temperature 36.4 C L Pulse Rate 68 72 Respiratory Rate 16 18 Blood Pressure 144/74 H Pulse Oximetry 96 96 95 Oxygen Delivery Room Air Room Air Fraction of Inspired Oxygen 04/14/23 08:55 04/14/23 09:04 04/14/23 13:23 Temperature Pulse Rate 76 75 71 Respiratory Rate 20 20 15 Blood Pressure Pulse Oximetry Oxygen Delivery Fraction of Inspired Oxygen 04/14/23 13:33 Temperature Pulse Rate 69 Respiratory Rate 16 Blood Pressure Pulse Oximetry Oxygen Delivery Fraction of Inspired Oxygen Intake/Output Intake/Output: Intake & Output 04/11/23 04/12/23 04/13/23 04/14/23 23:59 23:59 23:59 23:59
[2023-04-15 19:46] LABS: ANA Cascade Screen Negative (Negative)
[2023-04-16 03:19] LABS: Aldolase 8.1 U/L (<=8.1)
[2023-04-16 05:39] LABS: Anti Cyclic Citrullinated Pept <16 Units (<20)
[2023-04-16 16:30] LABS: ANCA Screen Negative (Negative)
[2023-04-21 23:27] LABS: JO-1 AB <11 SI (<11); MI-2 Alpha Ab <11 SI (<11); MI-2 Beta Ab <11 SI (<11); NXP-2 AB <11 SI (<11); TIF1 Gamma Ab <11 SI (<11)
== END 2023-04-14 15:45 | disposition home or self-care (01) | DRG 380 ==
LOC: ANHED 18:56 → ANH3MEDSUR 19:38
PROVIDERS: Emergency Medicine; Internal Medicine Pulmonary Disease; Nurse Practitioner; Nurse Practitioner Family; Admitting Provider Internal Medicine; Emergency Provider Student in an Organized Health Care Education/Training Program; PCP Family Medicine; Visit Provider Nurse Practitioner Family
DX: E11.628 Type 2 diabetes mellitus with other skin complications (principal); L97.419 Non-pressure chronic ulcer of right heel and midfoot with unspecified severity; E11.621 Type 2 diabetes mellitus with foot ulcer; L03.115 Cellulitis of right lower limb; J18.9 Pneumonia, unspecified organism; E11.42 Type 2 diabetes mellitus with diabetic polyneuropathy; E87.70 Fluid overload, unspecified; M06.9 Rheumatoid arthritis, unspecified; I10 Essential (primary) hypertension; J45.909 Unspecified asthma, uncomplicated; D50.9 Iron deficiency anemia, unspecified; E78.1 Pure hyperglyceridemia; E78.5 Hyperlipidemia, unspecified; K21.9 Gastro-esophageal reflux disease without esophagitis; F41.9 Anxiety disorder, unspecified; F32.A Depression, unspecified; Z79.82 Long term (current) use of aspirin; Z79.4 Long term (current) use of insulin; Z87.891 Personal history of nicotine dependence; Z20.822 Contact with and (suspected) exposure to COVID-19; Z91.148 Patient's other noncompliance with medication regimen for other reason; Z91.199 Patient's noncompliance with other medical treatment and regimen due to unspecified reason
CPT/HCPCS: 36415; 36569; 71045; 71046; 71275; 73630; 73720; 80053; 80202; 81001; 82085; 82550; 82565; 82948; 83036; 83605; 83735; 83880; 84182; 84484; 85025; 85027; 85610; 85652; 85730; 86036; 86038; 86140; 86200; 86225; 86235; 86364; 86430; 87040; 87637; 93005; 93306; 93971; 94618; 94640; 99285; A9270; A9577; C1751; J0692; J0696; J1650; J1815; J1836; J1885; J1940; J3370; J7040; Q9967

== ENCOUNTER 2023-06-17 12:42 | Outpatient (CLI) | payer OTHER, SELFPAY ==
--- NOTE | ~2023-06-17 | CT_ITS ---
CT Scan of the Chest without Contrast: Clinical Indication: Pneumonia Technique: Contiguous sections were acquired throughout the chest without intravenous contrast. Dose reduction technique was used on this scan by utilizing automated exposure control and iterative recon struction technique. The dose-length product (DLP) was 391.14 mGy-cm. COMPARISON: 04/10/2023 Findings: There is no evidence of any significant mediastinal, hilar or axillary lymphadenopathy. Coronary calc ifications are present. There is no evidence of pleural or pericardial effusion. The lungs are clear. No pulmonary nodules or infiltrates are noted. Images through the upper abdomen reveal no abnormalities. Impression: No significant abnormalities seen. Reviewed, dictated and finalized at location . Impression: No significant abnormalities seen.
== END 2023-06-17 12:43 | disposition home or self-care (01) ==
PROVIDERS: PCP Family Medicine; Visit Provider Internal Medicine Pulmonary Disease
DX: J18.9 Pneumonia, unspecified organism (principal)
CPT/HCPCS: 71250

== ENCOUNTER 2023-07-30 11:33 | Outpatient (CLI) | payer OTHER, SELFPAY ==
--- NOTE | ~2023-07-30 | DEXA_ITS ---
Bone Density Report Name: JOSE BULLOCK Age: 53 Sex: Female Ethnicity: White Date of : 1970 Indication: postmenopausal; screening for osteoporosis; height loss; prior fracture; asthma or emphysema; rheumatoid arthritis; Referring Provider: BENJAMIN CALVILLO Study: Bone densitometry was performed. Exam Date: July 30, 2023 Accession number: [id number] Bone Density: Region BMD T-score Z-score Classification AP Spine(L1-L4) 1.051 0.0 1.0 Normal Femoral Neck (Left) 0.785 -0.6 0.4 Normal Total Hip (Left) 1.003 0.5 1.1 Normal Femoral Neck (Right) 0.722 -1.1 -0.2 Osteopenia Total Hip (Right) 0.985 0.3 1.0 Normal Total Hip Mean 0.994 0.4 1.1 Normal World Health Organization criteria for BMD impression classify patients as: Normal (T-score at or above -1.0), Osteopenia (T-score between -1.0 and -2.5), or Osteoporosis (T-score at or below -2.5). 10-year Fracture Risk: FRAX not reported because: Prior hip or vertebral fracture Clinical Information Provided by Patient: Have had a previous hip or vertebral fracture Has had a low trauma fracture Has rheumatoid arthritis Has used the following medications: Vitamin D Has the following medical conditions: Asthma or Emphysema Patient maximum height was 65 Menopause Age: 51 No regular weight bearing exercise Drinks caffeinated beverages Onset of menses at age 12 Number of children 2 Impression: The patient has low bone mass, based on the Right Femoral Neck T-score. The patient has risk factors, including: previous fracture. Discussion: INCREASED RISK OF FRACTURE DUE TO HISTORY OF FRACTURE. The patient's previous fracture puts the patient at high risk of a future fracture. In untreated patients, the risk of osteoporotic fracture increases approximately two-fold for each 1.0 SD decrease in T-score. Low bone density is not the only risk factor for fracture; also consider factors such as patient's age, frailty or poor health, risk of falling, risk of injury, previous osteoporotic fracture, family history of osteoporosis, cigarette smoking, low body weight, etc. Not everyone with a low trauma fracture has osteoporosis; osteomalacia and other metabolic bone disorders should also be considered. Patients who have osteoporosis should be evaluated for specific diseases and conditions (secondary causes) that may cause or contribute to bone loss and fracture risk. National Osteoporosis Foundation (NOF) recommends pharmacologic intervention for patients with a prior hip or vertebral fracture regardless of BMD T-score. The patient should follow a healthful lifestyle (good nutrition with adequate calcium and vitamin D, and appropriate weight-bearing exercise). Follow-Up: Consider a repeat BMD and Vertebral Fracture Assessment (VFA) exam in 2 years or soone
== END 2023-07-30 11:34 | disposition home or self-care (01) ==
PROVIDERS: PCP Family Medicine; Visit Provider Obstetrics & Gynecology Gynecology
DX: Z78.0 Asymptomatic menopausal state (principal); M85.851 Other specified disorders of bone density and structure, right thigh
CPT/HCPCS: 77080

== ENCOUNTER 2023-08-06 09:12 | Outpatient (CLI) | payer OTHER, SELFPAY ==
--- NOTE | ~2023-08-06 | MM_ITS ---
EXAMINATION: MM screening terri BI w robson HISTORY: Screening TECHNIQUE: Craniocaudal and mediolateral oblique 3-D tomosynthesis images were obtained and synthetic 2-D images were generated. CAD analysis was submitted and interpreted. COMPARISON: Comparison to multiple prior studies sequentially, with oldest reviewed study dated 09/27. BREAST PARENCHYMAL COMPOSITION: Not dense: There are scattered areas of fibroglandular density. FINDINGS: There is no evidence of suspicious mass, calcification, or architectural distortion to sugg est malignancy in either breast. There has been no suspicious interval change. IMPRESSION: 1. No mammographic evidence of malignancy. 2. Recommend routine screening mammography in one year. BI-RADS Category 1: Negative Reviewed, dictated and finalized at location B.
== END 2023-08-06 09:13 | disposition home or self-care (01) ==
LOC: ANHIMG 09:13
PROVIDERS: PCP Family Medicine; Visit Provider Obstetrics & Gynecology Gynecology
DX: Z12.31 Encounter for screening mammogram for malignant neoplasm of breast (principal)
CPT/HCPCS: 77063; 77067

== ENCOUNTER 2024-05-26 11:31 | Outpatient (CLI) | payer OTHER, SELFPAY ==
--- NOTE | ~2024-05-26 | XR_ITS ---
EXAM/ PROCEDURE: XR knee RT min 4V - 05/26/2024 11:52 CDT HISTORY: 53 years old Female with PAIN IN RT LEG COMPARISON: None available TECHNIQUE: 5 view(s) FINDINGS/ IMPRESSION: There are no fractures or dislocations.Joint spaces are within normal limits Reviewed, dictated and finalized at location A.
--- NOTE | ~2024-05-26 | XR_ITS ---
AP and lateral views of the right tibia/fibula Clinical History: Pain Findings: No acute fracture or dislocation is seen. Osseous alignment is anatomic. Joint spaces are p reserved without significant erosive or degenerative change. There is diffuse subcutaneous soft tissu e edema. Impression: Diffuse subcutaneous soft tissue edema, nonspecific. No osseous or articular abnormality. Reviewed, dictated and finalized at location . Impression: Diffuse subcutaneous soft tissue edema, nonspecific. No osseous or articular abnormality.
--- OUTSIDE RECORDS SUMMARY | 2024-05-26 12:22 | XMS_ITS | Data Portability ---
Author Organization [place] [facility], Main Office Address [address] [place] [address] Assessment Encounter Date Assessment Date Assessment LastModified by Organization Details LastModified Time 04/24/2023 04/24/2023 I have reconciled the patient's medications post their discharge from inpatient facility. [email or web address] Not available 04/24/2023 08:55:09 Plan of Treatment Reminders Order Date Submit Date Provider Last Modified By Organization Details Last Modified Time Details Appointments New Patient 30 2024 01:30P Wendi Mckenna NP Not available Not available Not available Lab None recorded. Referral infectiou s disease specialis t referral - Please call patient to schedule an appointme nt. 2023 024 [email or web address] Jas Lal, [facility] , [address] [address], [place], [address], 06/01/2023 08:54:11 Procedures None recorded. Surgeries None recorded. Imaging None recorded. Medication Orders valacyclo vir 1 gram tablet 2023 024 [facility] #[id number], [address], [id number], 06/16/2023 11:38:31 rosuvasta tin 40 mg tablet 2023 024 [facility] #[id number], [address], [id number], 06/16/2023 11:38:33 ibuprofen 800 mg tablet 2023 024 [facility] #[id number], [address], [id number], 06/16/2023 11:38:24 trazodone 50 mg tablet 2023 024 [facility] #52029, [address], [place], [place], [id number], 06/16/2023 11:38:29 escitalop bakari 20 mg tablet 2023 024 [facility] #51453, [address] [facility] [address] [facility], [place], [place], [id number], 06/16/2023 11:38:31 furosemid e 40 mg tablet 2023 024 [facility] #86023, [address] [facility] [address] [place] [address], [id number], 06/16/2023 11:38:30 Vitamin D2 1,250 mcg (50,000 unit) capsule 2023 024 [facility] #60866, [address] [facility] [address] [place] [address], [id number], 06/16/2023 11:38:23 carisopro dol 350 mg tablet 2023 024 [facility] #08534, [address] [facility] [address] [place] [address], [id number], 06/16/2023 11:38:48 Trulicity 3 mg/0.5 mL subcutane ous pen injector 2023 024 [facility] #92890, [address] [facility] [address] [place] [address], [id number], 06/16/2023 11:38:29 metformin ER 500 mg tablet,ex tended release 24 hr 2023 024 [facility] #00503, [address] [facility] [address] [place] [address], [id number], 06/16/2023 11:38:32 famotidin e 20 mg tablet 2023 024 [facility] #53897, [address] [facility], [place], [place], [id number], 06/16/2023 11:38:22 clonidine HCl 0.1 mg tablet 2023 024 [facility] #28125, [address] [facility], [place], [place], [id number], 06/16/2023 11:38:23 amlodipin e 10 mg tablet 2023 024 [facility] #45558, [address] [facility], [place], [place], [id number], 06/16/2023 11:38:20 potassium chloride ER 10 mEq tablet,ex tended release 2023 024 [facility] #59804, [address] [place] [address], [id number], 06/16/2023 11:38:49 nadolol 80 mg tablet 2023 024 [facility] #10743, [address] [place] [address], [id number], 06/16/2023 11:38:32 fluticaso ne propionat e 50 mcg/actua tion nasal spray,[facility] 2023 024 [facility] #63962, [address] [facility], [place], [place], [id number], 06/16/2023 11:38:21 magnesium oxide 400 mg (241.3 mg magnesium ) tablet 2023 024 [facility] #04328, [address] [facility], [place], [place], [id number], 06/16/2023 11:38:22 pregabali n 200 mg capsule 2023 [facility] #64526, [address], [place], [place], [id number], 06/16/2023 11:38:45 hydrocodo ne 10 mg-acetam inophen 325 mg tablet 2023 024 [facility] #43578, [address], [place], [place], [id number], 06/16/2023 11:38:49 prednison e 20 mg tablet 2023 [facility] #52207, [address], [place], [place], [id number], 06/16/2023 11:38:22 sulfameth oxazole 800 mg-trimet hoprim 160 mg tablet [address] [facility] #66768, [address], [place], [place], [id number], 06/16/2023 11:27:10 cephalexi n 500 mg capsule [address] [facility] #40953, [address], [place], [place], [id number], 06/16/2023 11:27:15 sulfameth oxazole 800 mg-trimet hoprim 160 mg tablet [address] [facility] #85854, [address], [place], [place], [id number], 06/16/2023 11:27:10 cephalexi n 500 mg capsule [address] [facility] #29164, [address], [place], [place], [id number], 06/16/2023 11:27:15 fluconazo le 150 mg tablet 2023 024 [facility] #88447, [address] [place] [address], [id number], 05/25/2023 08:39:01 doxycycli ne hyclate 100 mg capsule 2023 024 [facility] #98624, [address] [facility], [place], [place], [id number], 04/30/2023 17:41:14 Patient TargetsNo targets recorded. Patient Instructions Encounter Date Encounter Id Patient Instructions Last Modified By Organization Details Last Modified Time 04/24/2023 [id number] Thank you for your visit to our office today. We would like to request that you reach out to your referring or previous provider and request that they send us a Summary of Care in electronic form, so that we may have it on file in your medical record. At your visit, we had the medical records we needed to provide you with the best possible care; however, for insurance purposes, an electronic Summary of Care is beneficial. Thank you for your assistance in obtaining this information and we look forward to providing continued care to you. Please review your medication list from the Summary of Care for this visit. If there are any differences from what you are currently taking at home, please call us to discuss. [email or web address] Not available 04/24/2023 08:55:09 Homebound Status : {{Patient has an inability to leave the home without a taxing effort and assistance from another person Does not meet homebound status}} Required Home Health Services: {{none senior living, physical therapy, occupational therapy senior living, physical therapy senior living}} Durable Medical Equipment needed: {{cane walker wal ker with seat manual wheelchair bedsid e commode oxygen}} Billing Guidelines CPT code 41171- Transitional Care Management services with moderate medical decision complexity (umrr-fa-tlga visit within 14 days of discharge). CPT code 97373- Transitional Care Management services with high medical decision complexity (svhr-vr-voll visit within 7 days of discharge). [email or web address] Not available 04/24/2023 08:55:09 Reason for Referral Infectious Disease Specialis t Referral for Cellulitis of lower limb Please call patient to schedule an appointment. Referring Physician: Jyoti Hahn, Family Medicine, Encounter Date: 04/30/2023 Results Created Date Observation Date Name Description Value Unit Range Abnormal Flag Note LastModifiedBy Organization Detail LastModifiedTime 04/06/19 24 04/06/2023 XR, chest , 2 view No observ ation record ed. [address], [place], [address], 04/16/2023 11:48:51 04/06/19 24 04/06/2023 US, doppl er, venou s No observ ation record ed. [address], [place], [address], 04/16/2023 11:55:54 04/06/19 24 04/06/2023 XR, foot No observ ation record ed. [address] [facility], [place], [address], 04/16/2023 11:57:17 04/08/19 24 04/08/2023 MRI, lower extre mity, w/ contr ast No observ ation record ed. [address] [facility], [place], [address], 06/28/2023 13:14:26 04/10/19 24 04/10/2023 CT, chest , w/ contr ast No observ ation record ed. [address] [facility], [place], [address], 04/16/2023 11:53:56 04/12/19 24 04/12/2023 XR, chest , 1 view No observ ation record ed. [address], [place], [address], 04/16/2023 11:49:54 04/14/19 24 04/13/2023 US, echoc ardio gram No observ ation record ed. [address], [place], [address], 04/16/2023 11:56:39 Result Notes None recorded. Problems Name Problem SNOMED Code Status Onset Date Resolution Date Notes Provider Name and Address Organization Details Recorded Time Metatarsal tara 54423667 Active 2020 Not Available [facility] 3 00:45:56 Otalgia 82197677 Active Not Available [facility] 3 00:45:56 Liver function tests outside reference range 403679669 Active Not Available [facility] 3 00:45:56 Asthma 578396606 Active Not Available [facility] 3 00:45:57 Sciatica 94844090 Active Not Available [facility] 3 00:45:57 Fluid level behind tympanic membrane Active Not Available [facility] 3 00:45:57 Gastroesop hageal reflux disease without esophagiti s 335625779 Active 2020 Not Available [facility] 3 00:45:57 Dysmenorrh ea 211203472 Active Not Available [facility] 3 00:45:57 Anemia 128089471 Active Not Available [facility] 3 00:45:57 Injury of coccyx 698016263 Active Not Available [facility] 3 00:45:57 Knee pain Active Not Available [facility] 3 00:45:57 Type 2 diabetes mellitus without complicati on 219699130 Active 2020 Not Available [facility] 3 00:45:57 Tachycardi a 9262850 Active Not Available [facility] 3 00:45:57 Vitamin D deficiency 26009626 Active Not Available [facility] 3 00:45:58 Sinusitis 88869007 Active Not Available [facility] 3 00:45:58 Menorrhagi a 138691468 Active Not Available [facility] 3 00:45:58 Uncontroll ed type 2 diabetes mellitus 131092375 Active Not Available [facility] 3 00:45:58 Well controlled type 2 diabetes mellitus 210375977 Active 2021 Not Available [facility] 3 00:45:58 Upper respirator y infection 94645723 Active Not Available [facility] 3 00:45:58 Hyperlipid emia 31047954 Active Not Available [facility] 3 00:45:59 Essential hypertensi on 99887703 Active Not Available [facility] 3 00:45:59 Dyspnea on exertion 25742779 Active 2020 Not Available [facility] 3 00:45:59 Muscle pain 13133265 Active 2020 Not Available [facility] 3 00:45:59 Rheumatoid arthritis 63405052 Active 2020 Not Available [facility] 3 00:45:59 Diabetes mellitus 74365288 Active Not Available [facility] 3 00:45:59 Sleep apnea 56812555 Active 2020 Not Available [facility] 3 00:46:00 Chronic pain 11160335 Active Not Available [facility] 3 00:46:00 Premenstru al tension syndrome 35544672 Active Not Available [facility] 3 00:46:00 Fatigue 85585185 Active 2020 Not Available [facility] 3 00:46:00 Iron deficiency anemia 54492788 Active Not Available [facility] 3 00:46:00 Deliveries by 859907561 Active 2022 Jyoti Hahn MD [address], [address], [place], [address] , [facility] [employer] [facility] 3 14:01:21 Gestationa l hypertensi on Active 2022 Jyoti Hahn MD [address], [place], [address] , [facility] 3 14:01:21 Type 2 diabetes mellitus 23718158 Active 2022 MD [address], [address], [place], [address] , [place] [facility] 3 14:01:21 Acute sinusitis 05994815 Active 2022 Jyoti Hahn MD [address], [address], [place], [address] , [place] [facility] 3 17:02:46 Chronic back pain 417859314 Active 2022 JESSICA Garcia [address], [address], [place], [address] , [place] [facility] 3 18:00:40 Acid reflux 776308473 Active 2022 JESSICA Garcia [address], [address], [place], [address] , [place] [facility] 3 10:13:35 Hyperglyce corky due to type 2 diabetes mellitus 0493367383749 09 Active 2022 JESSICA Garcia [address], [address], [place], [address] , [place] [facility] 3 12:09:33 Menopausal symptom 35041785 Active 2022 JESSICA Garcia [address], [address], [place], [address] , [place] [facility] 3 12:11:40 Obesity 388106631 Active 2022 JESSICA Garcia [address], [address], [place], [address] , [place] [facility] 3 12:22:47 Cobalamin deficiency 934039116 Active 2022 JESSICA Garcia [address], [address], [place], [address] , [place] [facility] 3 10:30:41 Postmenopa usal bleeding 96393736 Active 2022 JESSICA Garcia [address], [address], [place], [address] , [place] [facility] 3 10:42:36 Chronic hypokalemi a 74217798 Active 2022 JESSICA Garcia [address], [address], [place], [address] , [place] [facility] 3 13:58:39 Hypokalemi a 46996374 Active 2022 Jyoti Hahn MD [address], [address], [place], [address] , [place] [facility] 3 08:37:56 Pain of ear 842733205 Active 2022 Jyoti Hahn MD [address], [address], [place], [address] , [place] [facility] 3 14:23:43 Chronic obstructiv e pulmonary disease 69559768 Active 2022 JESSICA Garcia [address], [address], [place], [address] , [place] [facility] 3 13:56:38 Herpes labialis 7357926 Active 2022 JESSICA Garcia [address], [address], [place], [address] , [place] [facility] 3 17:23:57 Chronic sinusitis 39898657 Active 2022 JESSICA Garcia [address], [address], [place], [address] , [place] [facility] 3 10:10:11 Edema of lower extremity 000162072 Active 2022 JESSICA Garcia [address], [address], [place], [address] , [place] [facility] 3 10:12:44 Dry eyes 772157055 Active 2022 Jyoti Hahn MD [address], [address], [place], [address] , [place] [facility] 3 09:18:18 Dry eyes 226407636 Active 2022 Jyoti Hahn MD [address], [place], [address] , [place] [facility] 3 09:18:42 Headache 18281691 Active 2022 Jyoti Hahn MD [address], [place], [address] , [place] [facility] 3 10:10:10 Iron deficiency 07138056 Active 2022 Jyoti Hahn MD [address], [place], [address] , [place] [facility] 3 10:12:16 Multiple joint pain 36001907 Active 2023 Jyoti Hahn MD [address], [place], [address] , [facility] 4 12:21:26 Chronic pansinusit is 96689705 Active 2023 Jyoti Hahn MD [address], [place], [address] , [facility] 4 12:36:59 Magnetic resonance imaging of brain abnormal 676482109 Active 2023 Jyoti Hahn MD [address], [place], [address] , [facility] 4 12:42:51 Cellulitis 397964703 Active 2023 Jyoti Hahn MD [address], [place], [address] , [place] [facility] 4 09:01:09 Pneumonia 440637881 Active 2023 Jyoti Hahn MD [address], [place], [address] , [facility] 4 09:07:49 Cellulitis of lower limb 239947321 Active 2023 Jyoti Hahn MD [address], [address], [place], [address] , [employer] 17:41:49 Problem Notes None recorded. Procedures Surgical History Date Name Laterality Status Provider Name and Address Organization Details Recorded Time 4 Transitional_Ca re_Management completed Nita Mckinnon LPN [place] [facility] [employer] [facility] 04/24/2023 08:55:09 3 Transitional_Ca re_Management completed Nita Mckinnon LPN [facility] [facility] [employer] [facility] 09/19/2022 08:25:05 1 endometrial ablation completed JESSICA Garcia [address], [place], [address], [employer] [facility] 07/17/2022 10:50:11 Imaging Results Imaging Date Name Status LastModified by Organization Details LastModified Time 04/06/2023 XR, chest, 2 view completed [address] [place] [address], [address], 04/16/2023 11:48:51 04/06/2023 US, doppler, venous completed [address], [address], 04/16/2023 11:55:54 04/06/2023 XR, foot completed [address] [place] [address], [address], 04/16/2023 11:57:17 04/08/2023 MRI, lower extremity, w/ contrast completed [address] [place] [address], [address], 06/28/2023 13:14:26 04/10/2023 CT, chest, w/ contrast completed [address], [address], 04/16/2023 11:53:56 04/12/2023 XR, chest, 1 view [facility] [address] [place] [address] [address], [place], [address], 04/16/2023 11:49:54 04/13/2023 US, echocardiogram completed [facility] [address] [facility] [address], [place], [address], 04/16/2023 11:56:39 Procedure Notes None recorded. Medical Equipment None Reported. Allergies Allergen ID Allergen Name Allergen Category Reaction Reaction Severity Criticality Documentation Date Start Date Code Code System Note Provider Name and Address Organization Details Recorded Time 398 atenolol medicatio n other severe Not available 04/16/2022 1202 RxNorm twent y years ago Not Available [facility] 00:52:08 Medications Name Sig Start Date Stop Date Status Note LastModified by Organization Details LastModified Time carisopro dol 350 mg tablet active Not Available Not Available No t Available cyclobenz aprine 10 mg tablet TAKE ONE TABLET BY MOUTH THREE TIMES DAILY DIRECTED 04/18 completed Not Available Not Available Not Available amoxicill in 500 mg capsule Take 1 capsule every 12 hours by oral route for 7 days. 07/07 completed Not Available Not Available Not Available furosemid e 40 mg tablet TAKE 1 TABLET BY MOUTH ONCE DAILY active Not Available Not Available No t Available BD SafetyGli de Shielding Regular Bevel 1 mL 25 gauge x 5/8 syringe USE DIRECTED TO INJECT B-12 ONCE WEEKLY FOR 4 WEEKS, THEN MONTHLY THEREAFT ER active Not Available Not Available No t Available hydrocodo ne 7.5 mg-ibupro fen 200 mg tablet Take 1 tablet 4 times a day by oral route as needed. 12/08 completed Not Available Not Available Not Available neomycin- polymyxin -hydrocor t 3.5 mg/mL-10, 000 unit/mL-1 % ear solution INSTILL 4 DROPS TO AFFECTED EAR THREE TIMES DAILY FOR 7 DAYS 05/24 completed Not Available Not Available Not Available clonidine HCl 0.1 mg tablet TAKE 1 TABLET BY MOUTH 3 TIMES DAILY NEEDED active Not Available Not Available No t Available doxycycli ne hyclate 100 mg capsule Take 1 capsule twice a day by oral route for 14 days. 04/29 completed Not Available Not Available Not Available ipratropi um 0.5 mg-albute rol 3 mg (2.5 mg base)/3 mL nebulizat ion soln Inhale 3 mL 4 times a day by nebuliza tion route as needed. active Not Available Not Available No t Available nadolol 80 mg tablet TAKE 1 TABLET BY MOUTH THREE TIMES DAILY active Not Available Not Available No t Available clindamyc in HCl 300 mg capsule Take 1 capsule 3 times a day by oral route for 7 days. 07/03 completed Not Available Not Available Not Available albuterol sulfate 2.5 mg/3 mL (0.083 %) solution for nebulizat ion Inhale 3 mL 4 times a day by nebuliza tion route as needed. active Not Available Not Available No t Available trazodone 50 mg tablet 1 po qhs prn active Not Available Not Available No t Available lisinopri l 20 mg-hydroc hlorothia zide 12.5 mg tablet TAKE 1 TABLET BY MOUTH ONCE DAILY active Not Available Not Available No t Available azithromy nathalia 250 mg tablet TAKE 2 TABLETS (500 MG) BY ORAL ROUTE ONCE DAILY FOR 1 DAY THEN 1 TABLET (250 MG) BY ORAL ROUTE ONCE DAILY FOR 4 DAYS 07/03 completed Not Available Not Available Not Available glyburide 5 mg tablet TAKE ONE TABLET BY MOUTH TWICE DAILY 12/08 completed Not Available Not Available Not Available ibuprofen 800 mg tablet TAKE 1 TABLET BY MOUTH 3 TIMES DAILY NEEDED 2023 active Not Available Not Available Not Avai lable Novolin N NPH U-100 Insulin isophane 100 unit/mL subcutane ous susp 07/07 completed Not Available Not Available Not Available tizanidin e 4 mg tablet TAKE 1 TABLET BY MOUTH THREE TIMES DAILY NEEDED FOR 30 DAYS 07/07 completed Not Available Not Available Not Available fluconazo le 150 mg tablet active Not Available Not Available Not Available glyburide 2.5 mg tablet Take 1 tablet every day by oral route for 90 days. active Not Available Not Available No t Available valacyclo vir 1 gram tablet Take 2 tablets every 12 hours by oral route for 1 day. active Not Available Not Available No t Available hydrocodo ne 5 mg-acetam inophen 325 mg tablet TAKE 1 TABLET BY MOUTH TWICE DAILY NEEDED 11/22 /2022 completed Not Available Not Available Not Available ondansetr on HCl 8 mg tablet TAKE 1 TABLET BY MOUTH EVERY 8 HOURS NEEDED FOR 30 DAYS active Not Available Not Available No t Available meloxicam 15 mg tablet TAKE 1 TABLET BY MOUTH DAILY NEEDED FOR FOOT PAIN OR FLARE UP 12/30 completed Not Available Not Available Not Available ondansetr on HCl 4 mg tablet TAKE 1 TABLET BY MOUTH EVERY 6 HOURS NEEDED FOR NAUSEA AND VOMITING 07/07 completed Not Available Not Available Not Available prednison e 20 mg tablet TAKE 1 TABLET BY MOUTH EVERY DAY WITH FOOD active Not Available Not Available No t Available Tubersol 5 tub. unit/0.1 mL intraderm al injection solution Inject 0.1 mL every day by intrader mal route for 1 day. 09/10 completed Not Available Not Available Not Available BD Insulin Syringe 1 mL 25 gauge x 5/8 03/25 completed Not Available Not Available Not Available prednison e 5 mg tablet 07/07 completed Not Available Not Available Not Available Lantus U-100 Insulin 100 unit/mL subcutane ous solution INJECT 70-80 UNITS QPM active Not Available Not Available No t Available penicilli n V potassium 500 mg tablet TAKE 1 TABLET BY MOUTH EVERY 8 HOURS FOR 10 DAYS 05/24 completed Not Available Not Available Not Available potassium chloride ER 10 mEq tablet,ex tended release TAKE 1 TABLET BY MOUTH ONCE DAILY NEEDED active Not Available Not Available No t Available insulin syringe U-100 with needle 1 mL 29 gauge x 7/16 U UTD 12/30 completed Not Available Not Available Not Available sulfameth oxazole 800 mg-trimet hoprim 160 mg tablet TAKE 1 TABLET BY MOUTH EVERY 12 HOURS FOR 7 DAYS 06/15 completed Not Available Not Available Not Available hydrocodo ne 10 mg-acetam inophen 325 mg tablet TAKE 1 TABLET BY MOUTH EVERY 8 HOURS NEEDED. Must last 30 days active Not Available Not Available No t Available doxycycli ne monohydra te 100 mg tablet 07/03 completed Not Available Not Available Not Available tramadol 50 mg tablet TAKE 1 TABLET BY MOUTH EVERY 6 HOURS active Not Available Not Available No t Available triamcino lone acetonide 0.1 % topical cream APPLY A THIN LAYER TO THE AFFECTED AREA(S) BY TOPICAL ROUTE 2 TIMES PER DAY x 7 days active Not Available Not Available No t Available amoxicill in 500 mg tablet 05/24 completed Not Available Not Available Not Available glimepiri de 2 mg tablet TK 2 TS PO BID B MEALS active Not Available Not Available No t Available pantopraz ole 20 mg tablet,de layed release TAKE 1 TABLET BY MOUTH ONCE DAILY 09/10 completed Not Available Not Available Not Available meloxicam 7.5 mg tablet Take 1 tablet every day by oral route for 90 days. active Not Available Not Available No t Available oxycodone -acetamin ophen 5 mg-325 mg tablet TAKE 1 TABLET BY MOUTH EVERY 8 HOURS NEEDED 08/20 completed headache s Not Available Not Available Not Available alprazola m 0.5 mg tablet Take 1 tablet 3 times a day by oral route for 5 days. 07/17 completed Not Available Not Available Not Available amoxicill in 875 mg tablet TAKE 1 TABLET BY MOUTH EVERY 12 HOURS FOR 7 DAYS 04/29 completed Not Available Not Available Not Available potassium chloride ER 20 mEq tablet,ex tended release(p art/cryst ) TAKE 1 TABLET BY MOUTH AT BEDTIME 06/15 completed Not Available Not Available Not Available famotidin e 20 mg tablet TAKE 1 TABLET BY MOUTH TWICE DAILY NEEDED active Not Available Not Available No t Available prednisol one acetate 1 % eye drops,[employer] pension INSTILL 1 DROP IN LEFT EYE FOUR TIMES A DAY 09/10 completed Not Available Not Available Not Available magnesium oxide 400 mg (241.3 mg magnesium ) tablet TAKE 1 TABLET BY MOUTH EVERY DAY active Not Available Not Available No t Available methotrex ate sodium 2.5 mg tablet TAKE 6 TABLETS BY MOUTH EVERY WEEK 12/11 completed Not Available Not Available Not Available Humalog U-100 Insulin 100 unit/mL subcutane ous solution INJECT 35 UNITS UNDER THE SKIN TID WITH MEALS active Not Available Not Available No t Available OneTouch Ultra Test strips USE TO TEST BLOOD SUGAR LEVELS THREE TIMES DAILY active Not Available Not Available No t Available dexametha sone 1 mg tablet TK 1 T PO HS FOR 1 DAY PRN active Not Available Not Available No t Available amlodipin e 10 mg tablet TAKE 1 TABLET BY MOUTH ONCE DAILY active Not Available Not Available No t Available deslorata dine 5 mg tablet Take 1 tablet every day by oral route for 90 days. 01/30 completed Not Available Not Available Not Available doxycycli ne monohydra te 100 mg capsule TAKE ONE CAPSULE BY MOUTH TWICE DAILY FOR 10 DAYS 04/29 completed Not Available Not Available Not Available hydrocodo ne 7.5 mg-acetam inophen 325 mg tablet TAKE 1 TABLET BY MOUTH FOUR TIMES DAILY NEEDED 12/29 completed Not Available Not Available Not Available prednison e 2.5 mg tablet 07/03 completed Not Available Not Available Not Available cephalexi n 500 mg capsule TAKE 1 CAPSULE BY MOUTH TWICE DAILY FOR 7 DAYS 06/15 completed Not Available Not Available Not Available pantopraz ole 40 mg tablet,de layed release Take by oral route for 90 days. active Not Available Not Available No t Available cyanocoba gaurang (vit B-12) 1,000 mcg/mL injection solution INJECT 1 ML UNDER THE SKIN ONCE MONTHLY active Not Available Not Available No t Available metformin 1,000 mg tablet TAKE 1 TABLET BY MOUTH BID active Not Available Not Available No t Available triamcino lone acetonide 0.1 % topical ointment APPLY A THIN LAYER TO THE AFFECTED AREA(S) BY TOPICAL ROUTE 2 TIMES PER DAY active Not Available Not Available No t Available dexametha sone 4 mg tablet 07/07 completed Not Available Not Available Not Available clotrimaz ole-betam ethasone 1 %-0.05 % topical cream 01/30 completed Not Available Not Available Not Available halobetas ol propionat e 0.05 % topical ointment 04/18 completed Not Available Not Available Not Available Audra-D 12 Hour 60 mg-120 mg tablet,ex tended release Take 1 tablet twice a day by oral route. 07/07 completed Not Available Not Available Not Available fluoromet holone 0.1 % eye drops,[employer] pension INSTILL 1 DROP IN EACH EYE TWICE DAILY active Not Available Not Available No t Available ibuprofen 400 mg tablet TK 1 T PO Q 8 H PRN 07/07 completed Not Available Not Available Not Available gabapenti n 300 mg capsule Take 1 capsule 3 times a day by oral route for 90 days. 12/08 completed Not Available Not Available Not Available omeprazol e 20 mg capsule,d elayed release active Not Available Not Available Not Available cephalexi n 500 mg tablet Take 1 tablet twice a day by oral route for 7 days. 07/07 completed Not Available Not Available Not Available folic acid 1 mg tablet TAKE 1 TABLET BY MOUTH EVERY DAY 09/10 completed Not Available Not Available Not Available furosemid e 20 mg tablet TAKE 1 TABLET BY MOUTH EVERY DAY 12/30 completed Not Available Not Available Not Available alprazola m 2 mg tablet 04/18 completed Not Available Not Available Not Available gabapenti n 100 mg capsule TAKE 1 CAPSULE BY MOUTH THREE TIMES DAILY FOR 90 DAYS 03/03 completed Not Available Not Available Not Available Novolog U-100 Insulin aspart 100 unit/mL subcutane ous solution INJECT 40 UNITS SUBCUTAN EOUSLY THREE TIMES DAILY WITH MEALS. active Not Available Not Available No t Available hydroxych loroquine 200 mg tablet TAKE 1 TABLET BY MOUTH EVERY 12 HOURS active Not Available Not Available No t Available levofloxa nathalia 500 mg tablet Take 1 tablet every 24 hours by oral route for 7 days. active Not Available Not Available No t Available oxycodone -acetamin ophen 7.5 mg-325 mg tablet 12/08 completed Not Available Not Available Not Available lovastati n 20 mg tablet TAKE 1 TABLET BY MOUTH ONCE DAILY AT BEDTIME active Not Available Not Available No t Available methylpre dnisolone 4 mg tablets in a dose pack FOLLOW PACKAGE DIRECTIO NS 01/28 completed Not Available Not Available Not Available albuterol sulfate HFA 90 mcg/actua tion aerosol inhaler INHALE 2 PUFFS BY MOUTH EVERY 4 TO 6 HOURS NEEDED FOR SHORTNES S OF BREATH AND/OR WHEEZING active Not Available Not Available No t Available Vitamin D2 1,250 mcg (50,000 unit) capsule TAKE 1 CAPSULE A DAY EVERY THU {Q1W2} 2023 active Not Available Not Available Not Avai lable celecoxib 100 mg capsule active Not Available Not Available Not Available ondansetr on 4 mg disintegr ating tablet 07/07 completed Not Available Not Available Not Available fluticaso ne propionat e 50 mcg/actua tion nasal spray,[employer] pension SHAKE LIQUID AND ISE 1 SPRAY IN EACH NOSTRIL EVERY DAY active Not Available Not Available No t Available metformin ER 500 mg tablet,ex tended release 24 hr TAKE 2 TABLET BY MOUTH TWICE DAILY BEFORE MEALS active Not Available Not Available No t Available clotrimaz ole 1 % topical cream APPLY TO THE AFFECTED AND SURROUND ING AREAS OF SKIN BY TOPICAL ROUTE 2 TIMES PER DAY IN THE MORNING AND EVENING 12/05 completed Not Available Not Available Not Available sertralin e 50 mg tablet active Not Available Not Available Not Available medroxypr ogesteron e 150 mg/mL intramusc ular suspensio n ADM 1 ML IM Q 12 WKS active Not Available Not Available No t Available doxycycli ne hyclate 100 mg tablet TAKE 1 TABLET BY MOUTH EVERY 12 HOURS 05/24 completed Not Available Not Available Not Available metoclopr amide 10 mg tablet TAKE 1 TABLET BY MOUTH EVERY 6 HOURS NEEDED FOR NAUSEA AND VOMITING 07/07 completed Not Available Not Available Not Available progester one micronize d 100 mg capsule TAKE 1 CAPSULE BY MOUTH EVERY NIGHT AT BEDTIME active Not Available Not Available No t Available amoxicill in 875 mg-potass ium clavulana te 125 mg tablet TAKE 1 TABLET BY MOUTH TWICE DAILY FOR 7 DAYS 06/15 completed Not Available Not Available Not Available insulin lispro (U-100) 100 unit/mL subcutane ous pen INJECT 50 UNITS UNDER THE SKIN THREE TIMES DAILY BEFORE MEALS active Not Available Not Available No t Available insulin syringe U-100 with needle 1/2 mL 30 gauge USE WITH INSULIN TID 12/30 completed Not Available Not Available Not Available medroxypr ogesteron e 150 mg/mL intramusc ular syringe USE DIRECTED BY DOCTOR 01/30 completed Not Available Not Available Not Available escitalop bakari 10 mg tablet active Not Available Not Available Not Available escitalop bakari 20 mg tablet TAKE 1 TABLET BY MOUTH EVERY DAY active Not Available Not Available No t Available Novolog FlexPen U-100 Insulin aspart 100 unit/mL (3 mL) subcutane ous INJECT 30 UNITS SUBCUTAN EOUSLY THREE TIMES A DAY 2022 active Not Available Not Available Not Avai lable cyclospor ine 0.05 % eye drops in a dropperet te INSTILL 1 DROP INTO BOTH EYES TWICE DAILY active Not Available Not Available No t Available rosuvasta tin 40 mg tablet TAKE 1 TABLET BY MOUTH TWICE A WEEK AT BEDTIME 2023 active Not Available Not Available Not Avai lable hydrocodo ne 10 mg-acetam inophen 300 mg tablet Take 1 tablet every 8 hours by oral route as needed. 12/29 completed Not Available Not Available Not Available nitrofura ntoin monohydra te/macroc rystals 100 mg capsule Take 1 capsule every 12 hours by oral route for 10 days. 12/30 completed Not Available Not Available Not Available duloxetin e 20 mg capsule,d elayed release 07/07 completed Not Available Not Available Not Available tizanidin e 4 mg capsule 07/07 completed Not Available Not Available Not Available pregabali n 150 mg capsule TAKE 1 CAPSULE BY MOUTH 3 TIMES DAILY 08/05 completed Not Available Not Available Not Available pregabali n 200 mg capsule TAKE 1 CAPSULE BY MOUTH TWICE DAILY active Not Available Not Available No t Available Lyrica 100 mg capsule 04/24 completed Not Available Not Available Not Available chlorhexi dine gluconate 0.12 % mouthwash 07/07 completed Not Available Not Available Not Available nadolol 04/18 completed Not Available Not Available Not Available Levemir U-100 Insulin 100 unit/mL subcutane ous solution INJECT 20 UNITS SUBCUTAN EOUSLY ONCE DAILY 07/07 completed Not Available Not Available Not Available BD Ultra-Fin e Short Pen Needle 31 gauge x 5/16 USE EVERY DAY 12/30 completed Not Available Not Available Not Available Advair HFA 230 mcg-21 mcg/actua tion aerosol inhaler INHALE 1 PUFF BY MOUTH EVERY 12 HOURS active Not Available Not Available No t Available fenofibra te nanocryst allized 145 mg tablet Take 1 tablet every day by oral route in the morning for 90 days. 09/10 completed Not Available Not Available Not Available Januvia 50 mg tablet Take 1 tablet every day by oral route for 90 days. 03/31 completed Not Available Not Available Not Available Sure Comfort Pen Needle 31 gauge x 3/16 03/25 completed Not Available Not Available Not Available Symbicort 160 mcg-4.5 mcg/actua tion HFA aerosol inhaler Inhale 2 puffs twice a day by inhalati on route for 90 days. active Not Available Not Available No t Available FeroSul 325 mg (65 mg iron) tablet TAKE 1 TABLET BY MOUTH EVERY DAY active Not Available Not Available No t Available Mucinex D Maximum Strength 120 mg-1,200 mg tablet,ex tended release Take 1 tablet every 12 hours by oral route. 06/07 completed Not Available Not Available Not Available Lovaza 1 gram capsule TAKE TWO CAPSULES BY MOUTH TWICE DAILY 11/28 completed Not Available Not Available Not Available Lantus Solostar U-100 Insulin 100 unit/mL (3 mL) subcutane ous pen Inject 90 units every day by subcutan eous route at bedtime. 12/08 completed Not Available Not Available Not Available carisopro dol 250 mg tablet Please disregar d, this appears to be a duplicat e--DMB 08/22 completed Not Available Not Available Not Available fenofibra te 120 mg tablet TAKE 1 TABLET BY MOUTH EVERY DAY WITH MEALS 02/05 completed Not Available Not Available Not Available Novofine 32 32 gauge x 1/4 needle active Not Available Not Available Not Available Ferralet 90 Dual-Iron Delivery 90 mg-1 mg-12 mcg-50 mg tablet Take 1 tablet by mouth twice daily 04/18 completed Not Available Not Available Not Available tranexami c acid 650 mg tablet TAKE 2 TABLETS BY MOUTH THREE TIMES DAILY 09/10 completed Not Available Not Available Not Available Dulera 100 mcg-5 mcg/actua tion HFA aerosol inhaler Inhale 2 puffs twice a day by inhalati on route as directed for 30 days. 12/30 completed Not Available Not Available Not Available Audra Allergy 180 mg tablet Take 1 tablet every day by oral route for 30 days. 03/31 completed Not Available Not Available Not Available Accu-Chek FastClix Lancing Device 12/30 completed Not Available Not Available Not Available Vicodin 5 mg-300 mg tablet TK 1 TO 2 TS PO Q 6 H PRN P 07/26 completed Not Available Not Available Not Available icosapent ethyl 1 gram capsule TAKE 2 CAPSULES BY MOUTH TWICE DAILY BEFORE MEALS 09/10 completed Not Available Not Available Not Available Super Thin Lancets 28 gauge active Not Available Not Available Not Available Victoza 3-Doorteo 0.6 mg/0.1 mL (18 mg/3 mL) subcutane ous pen injector ADMINIST ER 1.8 MG UNDER THE SKIN DAILY WITH MEALS 09/10 completed Not Available Not Available Not Available Breo Ellipta 100 mcg-25 mcg/dose powder for inhalatio n Inhale 1 puff every day by inhalati on route as directed for 30 days. 05/23 completed Not Available Not Available Not Available Farxiga 10 mg tablet TAKE 1 TABLET BY MOUTH ONCE DAILY IN THE MORNING active Not Available Not Available No t Available potassium chloride ER 20 mEq tablet,ex tended release Take 1 tablet every day by oral route for 90 days. 2022 active Not Available Not Available Not Avai lable Levemir FlexTouch U-100 Insulin 100 unit/mL (3 mL) subcutane ous pen Inject 30 units every day by subcutan eous route at bedtime. 07/07 completed Not Available Not Available Not Available Trulicity 1.5 mg/0.5 mL subcutane ous pen injector 0.5 ml sc qweek 06/15 completed Not Available Not Available Not Available Trulicity 0.75 mg/0.5 mL subcutane ous pen injector INJECT 0.5 ML ONCE WEEKLY SUBCUTAN EOUSLY 06/15 completed Not Available Not Available Not Available Guaiasorb DM 10 mg-100 mg/5 mL oral liquid Take 10 mL every 4 hours by oral route as needed. 01/30 completed Not Available Not Available Not Available Tresiba FlexTouch U-200 insulin 200 unit/mL (3 mL) subcutane ous pen Inject 40 units every day by subcutan eous route at bedtime. 12/08 completed Not Available Not Available Not Available naloxone 4 mg/actuat ion nasal spray CALL 911. SPR CONTENTS OF ONE SPRAYER (0.1ML) INTO ONE NOSTRIL. REPEAT IN 2-3 MIN IF SYMPTOMS OF OPIOID EMERGENC Y PERSIST, ALTERNAT E NOSTRILS active Not Available Not Available No t Available Flucelvax Quad [id number] (PF) 60 mcg (15 mcg x 4)/0.5 mL IM syringe 11/07 completed Not Available Not Available Not Available Xiidra 5 % eye drops in a dropperet te INSTILL 1 DROP IN BOTH EYES TWICE DAILY active Not Available Not Available No t Available Fish Oil 1,000 mg (120 mg-180 mg) capsule Take 1 capsule every day by oral route. 09/10 completed Not Available Not Available Not Available TRUEplus Pen Needle 32 gauge x 5/32 USE THREE TIMES DAILY WITH INSULIN active Not Available Not Available No t Available Fluarix Quad (PF) 60 mcg (15 mcg x 4)/0.5 mL IM syringe 11/07 completed Not Available Not Available Not Available Ozempic 0.25 mg or 0.5 mg (2 mg/1.5 mL) subcutane ous pen injector INJECT 0.5MG SUBCUTAN EOUSLY ONCE WEEKLY IN THE MORNING 09/10 completed Not Available Not Available Not Available Fluzone Quad (P F) 60 mcg(15 mcgx4)/0. 5 mL intramusc ular syringe 11/07 completed Not Available Not Available Not Available Tresiba U-100 Insulin 100 unit/mL subcutane ous solution INJECT 40 UNITS ONCE DAILY AT BEDTIME active Not Available Not Available No t Available OneTouch Ultra2 Meter active Not Available Not Available Not Available OneTouch Delica Plus Lancet 30 gauge active Not Available Not Available Not Available Fluzone Quad (PF) 60 mcg (15 mcg x 4)/0.5 mL IM syringe active Not Available Not Available Not Available Phexxi 1.8 %-1 %-0.4 % vaginal gel INSERT 1 PRE FILLED APPLICAT OR VAGINALL Y IMMEDIAT KYLIE BEFORE EACH EPISODE OF INTERCOU RSE DIRECTED 09/10 completed Not Available Not Available Not Available Afluria Qd 2019- (36 mos up)(PF)60 mcg (15 mcg x4)/0.5 mL IM syringe ADM 0.5ML IM UTD 04/18 completed Not Available Not Available Not Available Trulicity 3 mg/0.5 mL subcutane ous pen injector ADMINIST ER 3 MG UNDER THE SKIN EVERY WEEK active Not Available Not Available No t Available [facility] COVID-19 Antigen Rapid Home Test kit USE NEEDED active Not Available Not Available No t Available Vitals Date Recorded Body height Body mass index (BMI) Body weight Body temperature Heart rate Oxygen saturation Oxygen saturation in Arterial blood by Pulse oximetry Systolic blood pressure Diastolic blood pressure Provider Name and Address Organization Details Last Updated DateTime 4 165.1 cm 37.9 kg/m2 144574. 06 g 98.1 [degF] 88 /min 96 % 96 % 148 mm[Hg] 84 mm[Hg] Nita Mckinnon LPN [email or web address] 4 08:56:11 Date Recorded Body height Body mass index (BMI) Body weight Body temperature Heart rate Oxygen saturation Oxygen saturation in Arterial blood by Pulse oximetry Systolic blood pressure Diastolic blood pressure Provider Name and Address Organization Details Last Updated DateTime 4 165.1 cm 37.1 kg/m2 097760. 1 g 97.9 [degF] 91 /min 96 % 96 % 148 mm[Hg] 86 mm[Hg] Dariana Luciano RN [facility] [employer] 4 17:15:29 Date Recorded Body height Body mass index (BMI) Body weight Body temperature Heart rate Oxygen saturation Oxygen saturation in Arterial blood by Pulse oximetry Systolic blood pressure Diastolic blood pressure Provider Name and Address Organization Details Last Updated DateTime 4 165.1 cm 36.8 kg/m2 631789. 91 g 97.3 [degF] 92 /min 96 % 96 % 120 mm[Hg] 76 mm[Hg] Dariana Luciano RN [facility] [employer] 4 17:18:18 Date Recorded Body height Body mass index (BMI) Body weight Body temperature Heart rate Oxygen saturation Oxygen saturation in Arterial blood by Pulse oximetry Systolic blood pressure Diastolic blood pressure Provider Name and Address Organization Details Last Updated DateTime 4 165.1 cm 36.9 kg/m2 509093. 51 g 98.2 [degF] 87 /min 97 % 97 % 140 mm[Hg] 80 mm[Hg] Dariana Luciano RN [facility] [employer] 4 11:17:04 Social History Question Answer Notes LastModified by Organizat ion Details LastModified Time Tobacco Smoking Status Former Smoker quit 2004 Tricia crowley [email or web address] 03/16/2023 12:13:15 What Is Your Level Of Alcohol Consumption? None [id number] Information not available 04/16/2022 What Is Your Level Of Caffeine Consumption? Moderate [id number] Information not available 04/16/2022 How Much Tobacco Do You Chew? None [id number] Information not available 04/16/2022 In The 14 Days Before Symptom Onset, Have You Had Close Contact With A Laboratory-confir med COVID-19 While That Case Was Ill? No [email or web address] Information not available 03/16/2023 In The 14 Days Before Symptom Onset, Have You Had Close Contact With A Person Who Is Under Investigation For COVID-19 While That Person Was Ill? No [email or web address] Information not available 03/16/2023 What Type Of Diet Are You Following? REGULAR [id number] Information not available 04/16/2022 Do You Or Have You Ever Used E-cigarettes Or Vape? Never Used Electronic Cigarettes [email or web address] Information not available 03/16/2023 Are You Following A Low Salt Diet? No Information not available 03/16/2023 What Was The Date Of Your Most Recent Tobacco Screening? 05/23/2020 [email or web address] Information not available 03/16/2023 Do You Or Have You Ever Used Smokeless Tobacco? Never Used Smokeless Tobacco [id number] Information not available 04/16/2022 How Much Tobacco Do You Smoke? 1 PPD [id number] Information not available 04/16/2022 Do You Use Any Illicit Or Recreational Drugs? No [email or web address] Information not available 03/16/2023 Has Tobacco Cessation Counseling Been Provided? No Information not available 03/16/2023 Do You Have Any Dietary Restrictions? Yes Diabetic [email or web address] Information not available 03/16/2023 Do You Or Have You Ever Used Any Other Forms Of Tobacco Or Nicotine? No [email or web address] Information not available 03/16/2023 Sex: Unknown Functional Status Question Answer Note LastModified by Organizat ion Details LastModified Time What is your exercise level? None [id number] Information not available 04/16/2022 Mental Status None recorded. Family History Relationship Description Onset Age of this Age Resolved Age Notes LastModified by Organization Details LastModified Time Mother Hypertriglyc eridemia [id number] Not available 04/16/2022 00:42:05 Mother Cardiac pacemaker procedure [id number] Not available 04/16/2022 00:42:05 Mother Atrial fibrillation [id number] Not available 04/16/2022 00:42:05 Brother Hypertriglyc eridemia [id number] Not available 04/16/2022 00:42:05 Medical History Condition Response ANEMIA/BLOOD DISORDER Y DIABETES, TYPE Y HYPERTENSION Y HIGH CHOLESTEROL / HYPERLIPIDEMIA Y Gynecological History Statement/Question Response If Post Menopausal, Age at Menopause 49 Sexually Active? N Menses Monthly N STIs/STDs N Current Control Method Menopause Breast Problems no Discharge no Obstetrics History GPAL:G 0 P 0 0 0 0 Immunizations Vaccine Type Date Status Note Provider Nam e and Address Organization Details Recorded Time SARS-COV-2 (COVID-19) vaccine, UNSPECIFIED 3 completed Nita Mckinnon LPN null, [email or web address] [facility] 08/06/2022 12:10:22 zoster, unspecified formulation 3 completed Nita Mckinnon LPN null, [employer] [facility] [employer] [facility] 08/06/2022 12:10:46 SARS-COV-2 (COVID-19) vaccine, UNSPECIFIED 2 completed Nita Mckinnon LPN null, [employer] [facility] 08/06/2022 14:22:44 zoster recombinant 3 completed Nita Mckinnon LPN null, [employer] [facility] [employer] [facility] 11/24/2022 16:18:21 influenza, unspecified formulation 3 completed Nita Mckinnon LPN null, [employer] [facility] [employer] [facility] 11/24/2022 16:18:36 Influenza, split virus, quadrivalent, preservative 1 completed Not Available [facility] 04/16/2022 00:51:57 Influenza, split virus, quadrivalent, preservative 7 completed Not Available [facility] 04/16/2022 00:51:57 Influenza, split virus, quadrivalent, PF 6 completed Not Available [facility] 04/16/2022 00:51:58 SARS-COV-2 (COVID-19) vaccine, UNSPECIFIED 1 completed Not Available [facility] 04/16/2022 00:51:58 COVID-19, mRNA, LNP-S, PF, 100 mcg/0.5mL dose or 50 mcg/0.25mL dose 1 completed Not Available [facility] 04/16/2022 00:51:58 Influenza, split virus, quadrivalent, preservative 0 completed Not Available [facility] 04/16/2022 00:51:58 Tdap 0 completed Not Available [facility] 04/16/2022 00:51:58 Influenza, split virus, trivalent, preservative 5 completed Not Available [facility] 04/16/2022 00:51:59 Past Encounters Encounter ID Performer Location Encounter Start Date Encounter Closed Date Diagnosis/Indication Diagnosis SNOMED-CT Code Diagnosis ICD10 Code Diagnosis Note [id number] [facility] [place] [address] [place] [address] 04/18/2020 00:00:00 04/18/2020 21:13:32 [id number] [facility] [place] [address] [place] [address] 04/20/2020 00:00:00 04/20/2020 17:51:54 [id number] [facility] [place] [address] [place] [address] 04/24/2020 00:00:00 04/24/2020 17:32:49 [id number] [facility] [place] [address] [place] [address] 05/23/2020 00:00:00 05/23/2020 19:18:42 [id number] [facility] [place] [address] [place] [address] 08/10/2020 00:00:00 08/10/2020 15:16:00 [id number] [facility] [place] [address] [place] [address] 10/12/2020 00:00:00 10/12/2020 18:39:46 [id number] [facility] [place] [address] [place] [address] 10/25/2020 00:00:00 10/26/2020 16:34:06 [id number] [facility] [place] [address] [place] [address] 11/22/2020 00:00:00 11/22/2020 20:22:18 [id number] [facility] [place] [address] [facility] [address] [place] [address] 12/13/2020 00:00:00 12/14/2020 10:19:13 [id number] [facility] [place] [address] [facility] [address] [place] [address] 03/29/2021 00:00:00 03/29/2021 14:04:58 [id number] [facility] [place] [address] [facility] [address] [place] [address] 09/04/2021 00:00:00 09/04/2021 10:45:48 [id number] [facility] [place] [address] [facility] [address] [place] [address] 10/10/2021 00:00:00 10/10/2021 17:53:04 [id number] [facility] [place] [address] [facility] [address] [place] [address] 12/11/2021 00:00:00 12/11/2021 17:57:34 [id number] [facility] [place] [address] [facility] [address] [place] [address] 03/19/2022 00:00:00 03/19/2022 10:41:24 [id number] JESSICA Garcia [facility] [place] [address] [place] [address] [address] [place] [address] 07/03/2022 11:43:21 07/03/2022 12:27:55 Hyperglycemia due to type 2 diabetes mellitus [id number] 79878 E11.65 Chronic, current status unknown.A1 C 8.3 (10/24/21)In sulin 50 units TID ACMetformi n ER 500mg dailyVicto za 1.8mg daily with mealsEncou raged pt to f/u with endocrinol ogy Menopausal symptom 46740 002 N95.1 Reviewed self-help strategies (dietary changes/ex ercise/acc upuncture/ etc.), herbal and other OTC therapies, hormonal options as well as other medication s used to treat common menopausal symptoms.W ill check hormone panel and plan to discuss treatment options in detail next visit. Rheumatoid arthritis 698 47114 M06.9 Chronic, not well controlled with current pain management regimen Pt not currently on any immunomodu lators. Failed methotrexa te. Will continue with pain meds pending pts next f/u with rheumatmagdaleno rascon, new referral generated. May need to consider tx with leflunomid e or hydroxychl orquine if pt unable to be seen by marilou rascon soon. Continue with hydrocodon e.Continue with pregabalin dosage.Serrato dicap placard form completed. Medication monitoring 39 6731558 Z51.81 Chronic/St ableContin ue to use hydrocodon e sparingly as directedPt denies any lending, selling, or borrowing of medication s. Reviewed controlled substance agreement requiremen ts. Refill given.[place] PDMP checked .Due for UDSRTO 3 months for routine med check and f/u appt. Hyperlipidemia 17031000 E78.5 Vitamin D deficiency 347 94411 E55.9 Obesity 967700711 E66.9 [id number] JESSICA Garcia [facility] Primary Care [facility] [address] [facility] [address] [place] [address] 07/17/2022 09:42:11 07/17/2022 10:39:27 Hyperglycemia due to type 2 diabetes mellitus [id number] 45001 E11.65 Chronic, not well controlled at this time, since pt not improving with Victoza, recommend change to Trulicity instead.A1 C 8.3 (10/24/21); 9.2 (07/03/22)I nsulin 50 units TID ACIncrease to Metformin ER 500mg-2 tabs BIDDiscont inue Victoza 1.8mg daily with meals; change to Trulicity 0.75mg weeklyEnco uraged pt to f/u with endocrinol ogy, has not been seen since 2020. Rheumatoid arthritis 698 85480 M06.9 Chronic, not well controlled with current pain management regimenUpd ated labs: Rheumatoid factor 39.7 (07/03/22)C RP 0.72 (07/03/22)E SR wnl (07/03/22)P t not currently on any immunomodu lators. Failed methotrexa te.Will continue with pain meds pending pts next f/u with marilou rascon, new referral generated. May need to consider tx with leflunomid e or hydroxychl oroquine if pt unable to be seen by marilou rascon soon, updated referral generated last visit.Pt encouraged to get updated eye exam.Will check PPD on Thursday.Con tinue with hydrocodon e as directed.I ncrease to pregabalin 200mg BIDHandica p placard form completed last visit. Menopausal symptom 09453 002 N95.1 Reviewed self-help strategies (dietary changes/ex ercise/acc upuncture/ etc.), herbal and other OTC therapies, hormonal options as well as other medication s used to treat common menopausal symptoms. Pt encouraged to f/u with treating plant pumper provider in the near future as well.Hormo ne panel results as follows:te stosterone -total 65.5 (wnl), free 1.19Estrog ens-91 (post-danita pausal)Pro lactin-5.5 (wnl)FSH-5 4.2 (post-danita pausal)SHB G-66.1 (wnl)LH-31 .9 (post-danita pausal) Medication monitoring 39 6109836 Z51.81 Chronic/St ableContin ue to use hydrocodon e sparingly as directedPt denies any lending, selling, or borrowing of medication s. Reviewed controlled substance agreement requiremen ts. Refill given.[place] checked 05/02/22UDS appropriat e (07/03/22)R TO 3 months for routine med check and f/u appt. Hyperlipidemia 52545491 E78.5 Chronic, stablehdl 39, trigs 328, non-hdl 132 (10/24/21)tr igs 329 (07/03/22)C ontinue Rosuvastat in 40mg twice weeklyNiac in 500mg daily (non-flush ing) Vitamin D deficiency 347 53909 E55.9 Chronic, stableVit D 32.0 (07/03/22)E ncouraged pt continue weekly D2 supplement and try to spend a few minutes outdoors daily (wearing sunscreen) . Tuberculos is screening 906008173 Z11.1 Needs updated TB screen prior to starting leflunomid e or hydroxychl oroquine. Body mass index 30+ - obesity 038672606 Z68.39 ChronicNot improved despite report of dieting/li festyle changes.Ad vised eat 3 meals daily with 1-2 healthy snacks, eliminate caloric drinks, no grazing btw meals, reduce packaged foods, portion control, modificati on of cooking style, low fat/low sugar items, 30 minutes of exercise at least 3x/week, reduce emotional/ stress eating, increase fruits/veg etables, take 15-20 minutes to eat.Encour aged pt to keep food diary for the next 2 weeks. Try to keep daily calorie count btw 1070-4908 calories. Gave meal planning handout. No improvemen t with Victoza, recommend change to Trulicity. Cobalamin deficiency 190 934288 E53.8 New finding on labsB12 357 (07/03/22)S tart weekly B12 injections x 4 weeks, then go to monthly injections thereafter . Pt indicates she is comfortabl e giving herself the injections at home. Postmenopa usal bleeding 38826312 N95.0 ChronicBle eding likely d/t known fibroidsPt encouraged to work on getting blood sugars under control to qualify for surgery. 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 Patient in formed - test result 759590210 Z71.2 Reviewed lab results with patient. Discussed abnormal levels and treatment recommenda tions as above. [id number] TRISTEN Smith [facility] Primary Care [facility] [address] [facility] [address] [place] [address] 07/21/2022 09:35:40 07/21/2022 10:14:08 Cobalamin deficiency 988034794 E53.8 Tuberculos is screening 134529709 Z11.1 [id number] Jyoti Hahn MD [facility] Primary Care [facility] [address] [facility] [address] [place] [address] 09/19/2022 08:19:03 09/19/2022 10:34:15 Transition of care 9604268439 105 Z75.8 Hypokalemia 35402871 E87 .6 improved since holding lasixconti nue potassium 10 meq and hold lasixcheck labscall with lab results on need to increase daily potassium and trial lower dose lasix 20 mg 2-3 times per week to find what dosage is effective without electrolyt e disturbanc e [id number] JESSICA Garcia [facility] Primary Care [address] [place] [address] 12/16/2022 09:54:06 12/16/2022 13:04:16 Chronic sinusitis 06548041 J32.9 Chronic, recurrentP t declines ENT referral, reports she has known sinus cyst. Has been advised that surgery is painful and cyst would likely recur.Enco uraged warm compresses to face/jawli ne to promote drainage. Ok to take otc pain relievers per package instructio ns to reduce discomfort . Continue/s tart nasal spray otc anti-hista mines per package instructio ns. Chronic hypokalemia 1046 9003 E87.6 Much improvedK wnl (12/10/22) Continue with daily supplement s as directed.K CL ER 20mg daily Edema of l ower extremity 518351616 R60.0 RecurrentD espite correction of potassium levels.Adv ised to elevate lower extremitie s, try not to keep legs dependent. Limit salt, pork, caffeine. Try otc compressio n socks. Work on appropriat e water intake. Take any diuretics as directed. [id number] Jyoti Hahn MD [facility] Primary Care [address] [place] [address] 01/06/2023 08:55:57 01/06/2023 09:48:27 Dry eyes 322832888 H04.123 Chronic hypokalemia 1046 9003 E87.6 Cobalamin deficiency 190 543682 E53.8 Vitamin D deficiency 347 77155 E55.9 Hyperlipidemia 56318036 E78.5 Iron defic iency anemia 95648372 D50.9 Well contr olled type 2 diabetes mellitus 938046713 E11.9 [id number] Jyoti Hahn MD [facility] Primary Care [address] [place] [address] 01/28/2023 09:53:17 01/28/2023 10:19:45 Headache 00866424 R51.9 R22.0 persistent headaches that are worseninga ssociated with visual disturbanc e and dizziness Iron deficiency 47926522 E61.1 restart pantoprazo letake iron dailyf/u in 6 weeks Acute sinusitis 51602384 J01.90 Acid reflux 069667014 K2 1.9 restart Rheumatoid arthritis 698 25305 M06.9 [id number] Jyoti Hahn MD [facility] Primary Care [address] [place] [address] 03/16/2023 12:12:31 03/16/2023 12:50:55 Chronic pansinusitis 86151918 J32.4 ENT referralno yann on MRIdoxycyc line 100 mg po bid x 14 days Rheumatoid arthritis 698 38549 M06.9 needs new referralre fill givenPt understand s this medication has risk for abuse/depe ndence and agrees to take it only as prescribed and to guard from loss/theft [place] prescript[place] monitoring website reviewed Type 2 tg betes mellitus without complication 092242799 E11.9 new referral given, previous endocrinol ogist has left area Asthma 935553221 J45.90 9 new referral given, previous pulmonolog ist has left the area Essential hypertension 27288684 I10 wants cardiology closer to home, new referral given Magnetic r esonance imaging of brain abnormal 347375141 R90.89 reviewed MRI and discussed having excellent control of htn, hyperlipid emia and diabetes for prevention neurology referral given Hypokalemia 82429470 E87 .6 repeat bmp monthly to monitor [id number] Joyti Hahn MD [facility] Primary Care [address] [place] [address] 04/24/2023 08:32:52 04/24/2023 09:08:12 Transition of care 6975193509 105 Z75.8 Cellulitis 734816906 L03 .90 out of work until releasedel evate as much as possibledo xycycline 100 mg po bid x 14 daysf/u on to reassess Pneumonia 948089004 J18. 9 noted on cta chest on 04/10has completed augmentinc ough improvedlu ng exam clear [id number] Jyoti Hahn MD [facility] Primary Care [address] [place] [address] 04/30/2023 17:10:43 04/30/2023 17:53:39 Cellulitis of lower limb 348867110 L03.119 out of work until released [id number] Jyoti Hahn MD [facility] Primary Care [address] [place] [address] 05/07/2023 17:11:46 05/07/2023 17:32:00 Cellulitis of lower limb 970861065 L03.119 improving but not yet resolvedou t of work until released [id number] JESSICA Pizano [address] [place] [address] 05/25/2023 08:21:56 05/25/2023 09:15:49 Cellulitis of lower limb 501743948 L03.119 Finish out course of antibiotic sReturn if new or worsening symptoms Cellulitis 125183838 L03 .90 [id number] Jyoti Hahn MD [facility] Primary Care [address] [place] [address] 06/16/2023 11:09:27 06/16/2023 12:57:23 Vitamin D deficiency 10643823 E55.9 Renewal of prescription 221618274 Z76.0 Chronic back pain 633209 002 M54.9 refill given Rheumatoid arthritis 698 56322 M06.9 needs new referralre fill givenPt understand s this medication has risk for abuse/depe ndence and agrees to take it only as prescribed and to guard from loss/theft [place] prescript[place] on monitoring website reviewed update 06/16/23:wi ll establish with new pcp, refills givenkeeps some prednisone on hand prn Essential hypertension 51301763 I10 stablerefi lls given Gastroesop hageal reflux disease without esophagitis 667073571 K21.9 Type 2 tg betes mellitus without complication 041101122 E11.9 a1c 7.1on trulicity 3 mg sc qweekmetfo rmin ER 500 mg 2 po bid Edema of l ower extremity 408922057 R60.0 stable Hyperlipidemia 74909207 E78.5 stable Hypokalemia 68701426 E87 .6 Chronic sinusitis 509273 00 J32.9 stable, refill given Herpes labialis 3385428 B00.1 keeps refills on hand, no current outbreak Health Concerns Section Related Observation LastModified by Organization Detai ls LastModified Time None Recorded Concern Status LastModified by Organization Details LastModified Time None Recorded Advance Directives Directive None Recorded Payers Encounter Date Sequence Insurance Name Policy Number Policy Langston Covered Member ID Langston Member ID Guarantor Name 04/24/2023 1 [facility] ON OR AFTER 08/16/20 (MEDICAID REPLACEMENT - HMO) Regina Howell [id number] Regina Howell 04/30/2023 1 [facility] ON OR AFTER 08/16/20 (MEDICAID REPLACEMENT - HMO) Regina Howell [id number] Regina Howell 05/07/2023 1 [facility] ON OR AFTER 08/16/20 (MEDICAID REPLACEMENT - HMO) Regina Howell [id number] Regina Howell 05/25/2023 1 [facility] ON OR AFTER 08/16/20 (MEDICAID REPLACEMENT - HMO) Regina Howell [id number] Regina Howell 06/16/2023 1 [facility] ON OR AFTER 08/16/20 (MEDICAID REPLACEMENT - HMO) Regina Howell [id number] Regina Howell Notes Date Note Type Note Provider Name and Address Organization Details Recorded Time 04/24/2023 text/html was inpatient 8 days, now out of hospital for 8 days, finished her abx 2 days after release. Redness in right lower leg is somewhat improved but not resolved. +pain and swelling. No fever. Jyoti Hahn MD [address] [place] [address], [facility] [address], [place], [address], [place] - [facility] [employer] 05/13/2023 07:44:34 04/30/2023 text/html was inpatient 8 days, now out of hospital for 8 days, finished her abx 2 days after release. Redness in right lower leg is somewhat improved but not resolved. +pain and swelling. No fever. cellulitis-some mild improvement in redness and swelling, has been keeping it elevated. has felt feverish. thinks she still has pneumonia-using her neb and has chest congestion. No cough Jyoti Hahn MD [address] [facility], [place], [address], [employer] [facility] [employer] [facility] 05/17/2023 08:30:53 05/07/2023 text/html was inpatient 8 days, now out of hospital for 8 days, finished her abx 2 days after release. Redness in right lower leg is somewhat improved but not resolved. +pain and swelling. No fever. cellulitis-some mild improvement in redness and swelling, has been keeping it elevated. has felt feverish. thinks she still has pneumonia-using her neb and has chest congestion. No cough 05/07/23: redness is improving, no fever. Jyoti Hahn MD [address], [address], [place], [address], [employer] [facility] [employer] 05/17/2023 10:02:23 05/25/2023 text/html She was admitted to the hospital on 04/06/23 for cellulitis to the RLE and was admitted for 9 days. She is currently on augmentin 875-125, finished today. She still has redness noted to her right bello, but its is much improved per patient. She has no other concerns today. JESSICA Pizano [address], [address], [place], [address], [employer] [facility] [employer] 05/25/2023 08:44:59 06/16/2023 text/html was inpatient 8 days, now out of hospital for 8 days, finished her abx 2 days after release. Redness in right lower leg is somewhat improved but not resolved. +pain and swelling. No fever. cellulitis-some mild improvement in redness and swelling, has been keeping it elevated. has felt feverish. thinks she still has pneumonia-using her neb and has chest congestion. No cough 05/07/23: redness is improving, no fever. 06/24/23: redness and swelling improved, no fever. Will establish care with new PCP next week, would like some refills and referrals. Jyoti Hahn MD [address] [place] [address], [place], [address], [place] - [facility] 06/24/2023 13:20:48 OBGyn Episode No OBEpisode recorded.
--- OUTSIDE RECORDS SUMMARY | 2024-05-26 12:22 | XMS_ITS | Data Portability ---
Author Organization [facility] [place] [facility] Address [address] [place] [address] Care Team Providers Care Edge Burnisher Uppers Name Role Phone CROW DIANE Primary Care Provider Assessment Encounter Date Assessment Date Assessment LastModified by Organization Details LastModified Time 06/25/2023 06/25/2023 Stop glimepiride. Stop the ibuprofen. Pt is to see an ENT specialist. [email or web address] Not available 06/25/2023 12:54:00 Plan of Treatment Reminders Order Date Submit Date Provider Last Modified By Organization Details Last Modified Time Details Appointments ACUTE 15 2024 11:30A M Crow Diane MD Not available Not available Not available Lab HbA1c (hemog lobin A1c), blood 2023 024 [place] [facility], [address], [place], [address], 08/02/2023 02:22:45 CMP, serum or plasma 2023 024 [place] [facility], [address], [place], [address], 08/02/2023 02:22:43 TSH, ultra- sensit edouard, serum 2023 024 [email or web address], [address], [place], [address], 09/03/2023 15:48:49 CBC w/ auto diff 2023 024 [place] [facility], [address], [place], [address], 08/02/2023 02:22:44 magnes ium, serum or plasma 2023 024 [facility], [address], [place], [address], 08/02/2023 02:22:43 lipid panel, serum 2023 024 [place] [facility], [address], [place], [address], 08/02/2023 02:22:42 vitami n D, 25-hyd howard, total, serum 2023 024 [place] [facility], [address], [place], [address], 08/02/2023 02:22:45 hepati tis panel (A+B+C ), acute, serum 2014 015 [facility] [address], [place], [address], 06/29/2023 12:22:15 ferrit in, serum or plasma 2014 015 sarah [facility]I, [address], [address], [place], [address], 06/29/2023 12:22:15 iron + total iron-b inding capaci ty (TIBC) , serum 2014 015 sarah [facility]I, [address], [address], [place], [address], 06/29/2023 12:22:15 vitami n B12 + folate , serum or blood 2014 015 sarah MAI, [address], [address], [place], [address], 06/29/2023 12:22:15 CMP, serum or plasma 2013 014 [facility], [facility] [address], [place], [address], 06/29/2023 12:22:15 microa lbumin /creat inine, mass ratio, urine 2013 014 [facility], [address] [place] [address], [address], [place], [address], 06/29/2023 12:22:15 lipid panel, serum 2013 014 [facility], [address] [place] [address], [address], [place], [address], 06/29/2023 12:22:15 CBC 2013 014 [facility], [address] [place] [address], [address], [place], [address], 06/29/2023 12:22:15 Referral None record ed. Procedures None record ed. Surgeries None record ed. Imaging None record ed. Medication Orders omepra zole 20 mg capsul e,fabby yed releas e 2023 024 [email or web address] [id number], [address] [facility] [address] [place] [address], [id number], 02/26/2024 17:12:26 escita lopram 10 mg tablet 2023 024 JU[facility], [address], [place], [id number], 06/25/2023 12:48:53 Celebr ex 100 mg capsul e 2023 024 [email or web address] [facility]040[facility], [address] [address], [place], [place], [id number], 07/17/2023 10:05:12 amoxic illin 500 mg tablet 2014 015 [facility] [place], [address], 06/29/2023 12:22:15 ferrou s sulfat e 325 mg (65 mg iron) tablet 2014 015 [facility] [place], [address], 06/29/2023 12:22:15 cyclob enzapr ine 10 mg tablet [address] [facility] [address] [place], [address], 06/30/2023 07:20:09 clonid ine HCl 0.1 mg tablet 2013 014 [facility], [address] [place], [address], 06/29/2023 12:22:15 amlodi pine 10 mg tablet 2013 014 [facility] [place], [address], 06/29/2023 12:22:15 sertra line 50 mg tablet [address] [facility] [address] [place], [address], 06/30/2023 07:19:42 Patient TargetsNo targets recorded. Patient Instructions Encounter Date Encounter Id Patient Instructions Last Modified By Organization Details Last Modified Time 01/23/2014 [id number] Take meds as prescribed Healthy ADA diet/ exercise f/u with endo nsuthan Not available 01/23/2014 15:02:38 04/24/2014 [id number] Take meds as prescribed Healthy ADA diet/ exercise f/u with endo f/u in 2 month with lab [email or web address] Not available 04/24/2014 15:10:19 06/25/2023 [id number] mammogram: about this test Not available 06/25/2023 13:02:18 insomnia: care instructions [email or web address] Not available 06/25/2023 12:55:57 learning about t ype 2 diabetes [email or web address] Not available 06/25/2023 12:37:16 type 2 diabetes: care instructions [email or web address] Not available 06/25/2023 12:37:16 gastroesophageal reflux disease (GERD): care instructions [email or web address] Not available 06/25/2023 12:34:56 controlling your asthma: care instructions [email or web address] Not available 06/25/2023 12:28:19 learning about asthma [email or web address] Not available 06/25/2023 12:28:19 high blood press ure: care instructions [email or web address] Not available 06/25/2023 12:31:27 learning about h igh blood pressure [email or web address] Not available 06/25/2023 12:31:27 Rheumatoid Arthr itis (RA): Care Instructions [email or web address] Not available 06/25/2023 12:43:32 Reason for Referral None Reported. Results Created Date Observation Date Name Description Value Unit Range Abnormal Flag Note LastModifiedBy Organization Detail LastModifiedTime 12/25/19 24 12/25/2023 COLOG UARD cologuard result Cancel led - Duplic ate Order not applic able Not Available [facility] (Cologuard Orders Only) [address], [place], [address], 12/25/2023 12:12:03 08/01/19 24 08/03/2023 LIPID PANEL , STAND MARTA cholesterol, total 132 mg/dL <200 normal Not Available [facility] [address] [place], [address], 08/03/2023 03:36:13 08/01/19 24 08/03/2023 LIPID PANEL , STAND MARTA HDL cholesterol 39 mg/dL > or = 50 low Not Available [facility] [address] [place], [address], 08/03/2023 03:36:13 08/01/19 24 08/03/2023 LIPID PANEL , STAND MARTA triglyceride s 212 mg/dL <150 high If a non-f astin g speci men was colle cted, consi maría repea t trigl yceri de testi ng on a fasti ng speci men if clini sreekanth indic ated. Geoffrey copeland et al. J. of Clin. Lipid ol. 2015; 9:129 -169. Not Available [facility] [address] [place] [address], [address], 08/03/2023 03:36:13 08/01/19 24 08/03/2023 LIPID PANEL , STAND MARTA LDL-choleste rol 65 mg/dL _(luna c) normal Refer ence range : <100 Mayelin able range <100 mg/dL for prima ry preve ntion ; <70 mg/dL for patie nts with CHD or diabe tic patie nts with > or = 2 CHD risk facto rs. LDL-C is now calcu lated using the Enedina n-Hop kins calcu latio n, which is a valid ated novel vik josé r accur acy than the Fried audra equat ion in the estim ation of LDL-C . Enedina alvarado SS et al. IRVING. 2013; 310(1 9): 2061- 2068 (http ://ed ucati on.Qu biaDi Flatter World. com/f aq/FA Q164) Not Available [facility] [address] [place], [address], 08/03/2023 03:36:13 08/01/19 24 08/03/2023 LIPID PANEL , STAND MARTA chol/HDLC ratio 3.4 (calc ) <5.0 normal Not Available [facility] [address] [place] [address], [address], 08/03/2023 03:36:13 08/01/19 24 08/03/2023 LIPID PANEL , STAND MARTA non HDL cholesterol 93 mg/dL _(luna c) <130 normal For patie nts with diabe nathalie plus 1 major ASCVD risk facto r, treat ing to a non-H DL-C goal of <100 mg/dL (LDL- C of <70 mg/dL ) is consi dered a thera peuti c optio n. Not Available [address] [address] [place], [address], 08/03/2023 03:36:13 08/01/19 24 08/03/2023 MAGNE [facility]UM magnesium 1.9 mg/dL 1.5-2. 5 normal Not Available [facility] [address] [address] [place], [address], 08/03/2023 03:36:14 08/01/19 24 08/03/2023 COMPR EHENS EDOUARD METAB OLIC PANEL glucose 111 mg/dL 65-99 high Fasti ng refer ence inter juan For someo ne witho ut known diabe nathalie, a gluco se value betwe en 100 and 125 mg/dL is consi stent with predi abete s and shoul d be confi rmed with a follo w-up test. Not Available [address] [address] [place], [address], 08/03/2023 03:36:15 08/01/19 24 08/03/2023 COMPR EHENS EDOUARD METAB OLIC PANEL urea nitrogen (BUN) 19 mg/dL 7-25 normal Not Available [address] [address] [place], [address], 08/03/2023 03:36:15 08/01/19 24 08/03/2023 COMPR EHENS EDOUARD METAB OLIC PANEL creatinine 0.71 mg/dL 0.50-1 .03 normal Not Available [facility] [address] [address] [place], [address], 08/03/2023 03:36:15 08/01/19 24 08/03/2023 COMPR EHENS EDOUARD METAB OLIC PANEL eGFR 101 mL/mi n/1.7 3m2 > or = 60 normal Not Available [address] [address] [place], [address], 08/03/2023 03:36:15 08/01/19 24 08/03/2023 COMPR EHENS EDOUARD METAB OLIC PANEL BUN/creatini ne ratio SEE NOTE: (calc ) 6-22 Not Repor yann: BUN and Creat inine are withi n refer ence range . Not Available [address], [address], 08/03/2023 03:36:15 08/01/19 24 08/03/2023 COMPR EHENS EDOUARD METAB OLIC PANEL sodium 144 mmol/ L 135-14 6 normal Not Available [address] [address] [place], [address], 08/03/2023 03:36:15 08/01/19 24 08/03/2023 COMPR EHENS EDOUARD METAB OLIC PANEL potassium 4.0 mmol/ L 3.5-5. 3 normal Not Available [address] [address] [place], [address], 08/03/2023 03:36:15 08/01/19 24 08/03/2023 COMPR EHENS EDOUARD METAB OLIC PANEL chloride 106 mmol/ L 98-110 normal Not Available [address], [address], 08/03/2023 03:36:15 08/01/19 24 08/03/2023 COMPR EHENS EDOUARD METAB OLIC PANEL carbon dioxide 28 mmol/ L 20-32 normal Not Available [address], [address], 08/03/2023 03:36:15 08/01/19 24 08/03/2023 COMPR EHENS EDOUARD METAB OLIC PANEL calcium 9.1 mg/dL 8.6-10 .4 normal Not Available [address] [address] [place], [address], 08/03/2023 03:36:15 08/01/19 24 08/03/2023 COMPR EHENS EDOUARD METAB OLIC PANEL protein, total 6.4 g/dL 6.1-8. 1 normal Not Available [address], [address], 08/03/2023 03:36:15 08/01/19 24 08/03/2023 COMPR EHENS EDOUARD METAB OLIC PANEL albumin 3.9 g/dL 3.6-5. 1 normal Not Available [address], [address], 08/03/2023 03:36:15 08/01/19 24 08/03/2023 COMPR EHENS EDOUARD METAB OLIC PANEL globulin 2.5 g/dL_ (calc ) 1.9-3. 7 normal Not Available [address], [address], 08/03/2023 03:36:15 08/01/19 24 08/03/2023 COMPR EHENS EDOUARD METAB OLIC PANEL albumin/glob ulin ratio 1.6 (calc ) 1.0-2. 5 normal Not Available [address], [address], 08/03/2023 03:36:15 08/01/19 24 08/03/2023 COMPR EHENS EDOUARD METAB OLIC PANEL bilirubin, total 0.2 mg/dL 0.2-1. 2 normal Not Available [address], [address], 08/03/2023 03:36:15 08/01/19 24 08/03/2023 COMPR EHENS EDOUARD METAB OLIC PANEL alkaline phosphatase 69 U/L 37-153 normal Not Available [address], [address], 08/03/2023 03:36:15 08/01/19 24 08/03/2023 COMPR EHENS EDOUARD METAB OLIC PANEL AST 10 U/L 10-35 normal Not Available [address], [address], 08/03/2023 03:36:15 08/01/19 24 08/03/2023 COMPR EHENS EDOUARD METAB OLIC PANEL ALT 9 U/L 6-29 normal Not Available [address], [address], 08/03/2023 03:36:15 08/01/19 24 08/02/2023 CBC (INCL UDES DIFF/ PLT) white blood cell count 8.3 thous and/u L 3.8-10 .8 normal Not Available [address], [address], 08/02/2023 11:08:40 08/01/19 24 08/02/2023 CBC (INCL UDES DIFF/ PLT) red blood cell count 3.97 ismael on/uL 3.80-5 .10 normal Not Available [address], [address], 08/02/2023 11:08:40 08/01/19 24 08/02/2023 CBC (INCL UDES DIFF/ PLT) hemoglobin 11.1 g/dL 11.7-1 5.5 low Not Available [address], [address], 08/02/2023 11:08:40 08/01/19 24 08/02/2023 CBC (INCL UDES DIFF/ PLT) hematocrit 35.2 % 35.0-4 5.0 normal Not Available [address], [address], 08/02/2023 11:08:40 08/01/19 24 08/02/2023 CBC (INCL UDES DIFF/ PLT) MCV 88.7 fL 80.0-1 00.0 normal Not Available [address], [address], 08/02/2023 11:08:40 08/01/19 24 08/02/2023 CBC (INCL UDES DIFF/ PLT) MCH 28.0 pg 27.0-3 3.0 normal Not Available [address], [address], 08/02/2023 11:08:40 08/01/19 24 08/02/2023 CBC (INCL UDES DIFF/ PLT) MCHC 31.5 g/dL 32.0-3 6.0 low Not Available [address], [address], 08/02/2023 11:08:40 08/01/19 24 08/02/2023 CBC (INCL UDES DIFF/ PLT) RDW 13.2 % 11.0-1 5.0 normal Not Available [address], [address], 08/02/2023 11:08:40 08/01/19 24 08/02/2023 CBC (INCL UDES DIFF/ PLT) platelet count 145 thous and/u L 140-40 0 normal Not Available [address], [address], 08/02/2023 11:08:40 08/01/19 24 08/02/2023 CBC (INCL UDES DIFF/ PLT) MPV 10.8 fL 7.5-12 .5 normal Not Available [address], [address], 08/02/2023 11:08:40 08/01/19 24 08/02/2023 CBC (INCL UDES DIFF/ PLT) absolute neutrophils 5403 cells /uL 1500-7 800 normal Not Available [address], [address], 08/02/2023 11:08:40 08/01/19 24 08/02/2023 CBC (INCL UDES DIFF/ PLT) absolute lymphocytes 2158 cells /uL 850-39 00 normal Not Available [address], [address], 08/02/2023 11:08:40 08/01/19 24 08/02/2023 CBC (INCL UDES DIFF/ PLT) absolute monocytes 581 cells /uL 200-95 0 normal Not Available [address], [address], 08/02/2023 11:08:40 08/01/19 24 08/02/2023 CBC (INCL UDES DIFF/ PLT) absolute eosinophils 108 cells /uL 15-500 normal Not Available [address], [address], 08/02/2023 11:08:40 08/01/19 24 08/02/2023 CBC (INCL UDES DIFF/ PLT) absolute basophils 50 cells /uL 0-200 normal Not Available [address], [address], 08/02/2023 11:08:40 08/01/19 24 08/02/2023 CBC (INCL UDES DIFF/ PLT) neutrophils 65.1 % normal Not Available [address], [address], 08/02/2023 11:08:40 08/01/19 24 08/02/2023 CBC (INCL UDES DIFF/ PLT) lymphocytes 26.0 % normal Not Available [facility] [address], [address], 08/02/2023 11:08:40 08/01/19 24 08/02/2023 CBC (INCL UDES DIFF/ PLT) monocytes 7.0 % normal Not Available [address], [address], 08/02/2023 11:08:40 08/01/19 24 08/02/2023 CBC (INCL UDES DIFF/ PLT) eosinophils 1.3 % normal Not Available [address], [address], 08/02/2023 11:08:40 08/01/19 24 08/02/2023 CBC (INCL UDES DIFF/ PLT) basophils 0.6 % normal Not Available [address], [address], 08/02/2023 11:08:40 08/01/19 24 08/02/2023 TSH TSH 0.70 mIU/L normal Refer ence Range > or = 20 Years 0.40- 4.50 Pregn jabari Range s First trime ster 0.26- 2.66 Secon d trime ster 0.55- 2.73 Third trime ster 0.43- 2.91 Not Available [address], [address], 08/02/2023 09:02:54 08/01/19 24 08/02/2023 VITAM IN D,25- OH,TO JUAN JOSE,I A vitamin D,25-oh,tota l,ia 82 NG/mL 30-100 normal Vitam in D Statu s 25-OH Vitam in D: Defic iency : <20 ng/mL Insuf ficie ncy: 20 - 29 ng/mL Optim al: > or = 30 ng/mL For 25-OH Vitam in D testi ng on patie nts on D2-reid pplem entat ion and patie nts for whom quant itati on of D2 and D3 fract ions is requi red, the [facility](TM ) 25-OH VIT D, (D2,D 3), LC/MS /MS is recom jana d: order code 59164 (saloni ents >2yrs ). See Note 1 Note 1 For addit ional infor jose fleming e refer to http: //ty Vang gnost ics.c om/fa q/FAQ 199 (This link is being provi ded for infor matshelley nal/ educa william l purpo ses only. ) Not Available [facility] [address], [place], [address], 08/02/2023 09:02:54 08/01/19 24 08/02/2023 HEMOG LOBIN A1C hemoglobin A1C 6.2 %_of_ total _HGB <5.7 high For someo ne witho ut known diabe nathalie, a hemog lobin A1c value betwe en 5.7% and 6.4% is consi stent with predi abete s and shoul d be confi rmed with a follo w-up test. For someo ne with known diabe nathalie, a value <7% indic ates that their diabe nathalie is well contr olled . A1c targe ts shoul d be indiv idual ized based on durat ion of diabe nathalie, age, comor bid condi tions , and other consi derat ions. This assay resul t is consi stent with an incre ased risk of diabe nathalie. Curre ntly, no conse nsus exist s regar ding use of hemog lobin A1c for diagn osis of diabe nathalie for child divya. This test was perfo rmed on the [facility]ilbert c503 platf orm. Effec tive , a aviles e in test platf orms from the [facility] t[facility] to the [place] gilbert c503 may have shift ed HbA1c resul ts sandy red to histo rical resul ts. Based on labor atory valid ation testi ng condu cted at [facility] , the [place] platf orm relat edouard to the [facility] platf orm had an avera ge incre ase in HbA1c value of < or = 0.3%. This diffe rence is withi n accep yann varia bilit y estab lishe d by the Natshelley nal [facility]co hemog lobin Stand ardiz ation Progr am. Note that not all indiv idual s will have had a shift in their resul ts and direc t sandy rison s betwe en histo rical and curre nt resul ts for testi ng condu cted on diffe rent platf orms is not recom jana d. Not Available [facility] [address] [address] [place], [address], 08/02/2023 02:22:45 10/27/19 24 10/28/2023 LIPID PANEL , STAND MARTA cholesterol, total 136 mg/dL <200 normal Not Available [facility] [address] [address] [place], [address], 10/28/2023 12:00:15 10/27/19 24 10/28/2023 LIPID PANEL , STAND MARTA HDL cholesterol 56 mg/dL > or = 50 normal Not Available [facility] [address] [address] [place], [address], 10/28/2023 12:00:15 10/27/19 24 10/28/2023 LIPID PANEL , STAND MARTA triglyceride s 143 mg/dL <150 normal Not Available [facility] [address] [address] [place], [address], 10/28/2023 12:00:15 10/27/1910/28/2023 LIPID PANEL , STAND MARTA LDL-choleste rol 57 mg/dL _(luna c) normal Refer ence range : <100 Mayelin able range <100 mg/dL for prima ry preve ntion ; <70 mg/dL for patie nts with CHD or diabe tic patie nts with > or = 2 CHD risk facto rs. LDL-C is now calcu lated using the Enedina n-Hop kins calcu anastacio n, which is a valid ated novel metho d provi ding arnav r accur acy than the Fried audra equat ion in the estim ation of LDL-C . Enedina alvarado SS et al. IRVING. 2013; 310(1 9): 2061- 2068 (http ://ed ucati on.Qu Rose Flatter World. com/f aq/FA Q164) Not Available [facility] [address] [address] [place], [address], 10/28/2023 12:00:15 10/27/19 24 10/28/2023 LIPID PANEL , STAND MARTA chol/HDLC ratio 2.4 (calc ) <5.0 normal Not Available [address], [address], 10/28/2023 12:00:15 10/27/19 24 10/28/2023 LIPID PANEL , STAND MARTA non HDL cholesterol 80 mg/dL _(luna c) <130 normal For patie nts with diabe nathalie plus 1 major ASCVD risk facto r, treat ing to a non-H DL-C goal of <100 mg/dL (LDL- C of <70 mg/dL ) is consi padmini robleso n. Not Available [address] [place], [address], 10/28/2023 12:00:15 10/27/1910/28/2023 MAGNE SIUM magnesium 1.3 mg/dL 1.5-2. 5 low Not Available [address] [address] [place], [address], 10/28/2023 12:00:16 10/27/1910/28/2023 COMPR EHENS EDOUARD METAB OLIC PANEL glucose 157 mg/dL 65-99 high Fasti ng refer ence inter juan For someo ne witho ut known diabe nathalie, a gluco se value >125 mg/dL indic ates that they may have diabe nathalie and this shoul d be confi rmed with a follo w-up test. Not Available [facility] [address] [address] [place], [address], 10/28/2023 12:00:17 10/27/1910/28/2023 COMPR EHENS EDOUARD METAB OLIC PANEL urea nitrogen (BUN) 17 mg/dL 7-25 normal Not Available [facility] [address] [address] [place], [address], 10/28/2023 12:00:17 10/27/1910/2710/28/2023 COMPR EHENS EDOUARD METAB OLIC PANEL creatinine 1.11 mg/dL 0.50-1 .03 high Not Available [address], [address], 10/28/2023 12:00:17 10/27/19 24 10/28/2023 COMPR EHENS EDOUARD METAB OLIC PANEL eGFR 59 mL/mi n/1.7 3m2 > or = 60 low Not Available [address], [address], 10/28/2023 12:00:10/27/1910/28/2023 COMPR EHENS EDOUARD METAB OLIC PANEL BUN/creatini ne ratio 15 (calc ) 6-22 normal Not Available [address], [address], 10/28/2023 12:00:17 10/27/19 24 10/28/2023 COMPR EHENS EDOUARD METAB OLIC PANEL sodium 143 mmol/ L 135-14 6 normal Not Available [address], [address], 10/28/2023 12:00:17 10/27/19 24 10/28/2023 COMPR EHENS EDOUARD METAB OLIC PANEL potassium 3.1 mmol/ L 3.5-5. 3 low Not Available [address], [address], 10/28/2023 12:00:17 10/27/19 24 10/28/2023 COMPR EHENS EDOUARD METAB OLIC PANEL chloride 101 mmol/ L 98-110 normal Not Available [address], [address], 10/28/2023 12:00:17 10/27/19 24 10/28/2023 COMPR EHENS EDOUARD METAB OLIC PANEL carbon dioxide 29 mmol/ L 20-32 normal Not Available [address], [address], 10/28/2023 12:00:10/27/19 24 10/28/2023 COMPR EHENS EDOUARD METAB OLIC PANEL calcium 9.3 mg/dL 8.6-10 .4 normal Not Available [address], [address], 10/28/2023 12:00:10/27/1910/28/2023 COMPR EHENS EDOUARD METAB OLIC PANEL protein, total 6.7 g/dL 6.1-8. 1 normal Not Available [address], [address], 10/28/2023 12:00:17 10/27/19 24 10/28/2023 COMPR EHENS EDOUARD METAB OLIC PANEL albumin 3.9 g/dL 3.6-5. 1 normal Not Available [address], [address], 10/28/2023 12:00:17 10/27/19 24 10/28/2023 COMPR EHENS EDOUARD METAB OLIC PANEL globulin 2.8 g/dL_ (calc ) 1.9-3. 7 normal Not Available [address], [address], 10/28/2023 12:00:10/27/19 24 10/28/2023 COMPR EHENS EDOUARD METAB OLIC PANEL albumin/glob ulin ratio 1.4 (calc ) 1.0-2. 5 normal Not Available [address], [address], 10/28/2023 12:00:10/27/19 24 10/28/2023 COMPR EHENS EDOUARD METAB OLIC PANEL bilirubin, total 0.3 mg/dL 0.2-1. 2 normal Not Available [address], [address], 10/28/2023 12:00:17 10/27/19 24 10/28/2023 COMPR EHENS EDOUARD METAB OLIC PANEL alkaline phosphatase 72 U/L 37-153 normal Not Available [facility] [address], [address], 10/28/2023 12:00:17 10/27/19 24 10/28/2023 COMPR EHENS EDOUARD METAB OLIC PANEL AST 12 U/L 10-35 normal Not Available [address], [address], 10/28/2023 12:00:17 10/27/19 24 10/28/2023 COMPR EHENS EDOUARD METAB OLIC PANEL ALT 10 U/L 6-29 normal Not Available [address], [address], 10/28/2023 12:00:17 10/27/19 24 10/28/2023 CBC (INCL UDES DIFF/ PLT) white blood cell count 6.0 thous and/u L 3.8-10 .8 normal Not Available [address], [address], 10/28/2023 07:02:40 10/27/19 24 10/28/2023 CBC (INCL UDES DIFF/ PLT) red blood cell count 4.10 ismael on/uL 3.80-5 .10 normal Not Available [address], [address], 10/28/2023 07:02:40 10/27/19 24 10/28/2023 CBC (INCL UDES DIFF/ PLT) hemoglobin 11.6 g/dL 11.7-1 5.5 low Not Available [address], [address], 10/28/2023 07:02:40 10/27/19 24 10/28/2023 CBC (INCL UDES DIFF/ PLT) hematocrit 36.0 % 35.0-4 5.0 normal Not Available [address], [address], 10/28/2023 07:02:40 10/27/19 24 10/28/2023 CBC (INCL UDES DIFF/ PLT) MCV 87.8 fL 80.0-1 00.0 normal Not Available [address], [address], 10/28/2023 07:02:40 10/27/19 24 10/28/2023 CBC (INCL UDES DIFF/ PLT) MCH 28.3 pg 27.0-3 3.0 normal Not Available [address], [address], 10/28/2023 07:02:40 10/27/19 24 10/28/2023 CBC (INCL UDES DIFF/ PLT) MCHC 32.2 g/dL 32.0-3 6.0 normal Not Available [address], [address], 10/28/2023 07:02:40 10/27/19 24 10/28/2023 CBC (INCL UDES DIFF/ PLT) RDW 13.8 % 11.0-1 5.0 normal Not Available [address], [address], 10/28/2023 07:02:40 10/27/19 24 10/28/2023 CBC (INCL UDES DIFF/ PLT) platelet count 166 thous and/u L 140-40 0 normal Not Available [address], [address], 10/28/2023 07:02:40 10/27/19 24 10/28/2023 CBC (INCL UDES DIFF/ PLT) MPV 11.7 fL 7.5-12 .5 normal Not Available [address], [address], 10/28/2023 07:02:40 10/27/19 24 10/28/2023 CBC (INCL UDES DIFF/ PLT) absolute neutrophils 3294 cells /uL 1500-7 800 normal Not Available [address], [address], 10/28/2023 07:02:40 10/27/19 24 10/28/2023 CBC (INCL UDES DIFF/ PLT) absolute lymphocytes 2118 cells /uL 850-39 00 normal Not Available [address], [address], 10/28/2023 07:02:40 10/27/19 24 10/28/2023 CBC (INCL UDES DIFF/ PLT) absolute monocytes 468 cells /uL 200-95 0 normal Not Available [address], [address], 10/28/2023 07:02:40 10/27/19 24 10/28/2023 CBC (INCL UDES DIFF/ PLT) absolute eosinophils 78 cells /uL 15-500 normal Not Available [address], [address], 10/28/2023 07:02:40 10/27/19 24 10/28/2023 CBC (INCL UDES DIFF/ PLT) absolute basophils 42 cells /uL 0-200 normal Not Available [address], [address], 10/28/2023 07:02:40 10/27/19 24 10/28/2023 CBC (INCL UDES DIFF/ PLT) neutrophils 54.9 % normal Not Available [address], [address], 10/28/2023 07:02:40 10/27/19 24 10/28/2023 CBC (INCL UDES DIFF/ PLT) lymphocytes 35.3 % normal Not Available [address], [address], 10/28/2023 07:02:40 10/27/19 24 10/28/2023 CBC (INCL UDES DIFF/ PLT) monocytes 7.8 % normal Not Available [address], [address], 10/28/2023 07:02:40 10/27/19 24 10/28/2023 CBC (INCL UDES DIFF/ PLT) eosinophils 1.3 % normal Not Available [address], [address], 10/28/2023 07:02:40 10/27/19 24 10/28/2023 CBC (INCL UDES DIFF/ PLT) basophils 0.7 % normal Not Available [address], [address], 10/28/2023 07:02:40 10/27/19 24 10/28/2023 TSH TSH 0.65 mIU/L normal Refer ence Range > or = 20 Years 0.40- 4.50 Pregn jabari Range s First trime ster 0.26- 2.66 Secon d trime ster 0.55- 2.73 Third trime ster 0.43- 2.91 Not Available [address], [address], 10/28/2023 08:33:35 10/27/1910/28/2023 VITAM IN D,25- OH,TO JUAN JOSE,I A vitamin D,25-oh,tota l,ia 65 NG/mL 30-100 normal Vitam in D Statu s 25-OH Vitam in D: Defic iency : <20 ng/mL Insuf ficie ncy: 20 - 29 ng/mL Optim al: > or = 30 ng/mL For 25-OH Vitam in D testi ng on patie nts on D2-reid pplem entat ion and patie nts for whom quant itati on of D2 and D3 fract ions is requi red, the [facility](TM ) 25-OH VIT D, (D2,D 3), LC/MS /MS is recom jana d: order code 07767 (saloni ents >2yrs ). See Note 1 Note 1 For addit ional infor jose fleming refer to http: //ty Delgado stDia gnost ics.c om/fa q/FAQ 199 (This link is being provi ded for infor sea rizvi/ educa william l purpo ses only. ) Not Available [facility] [address] [place], [address], 10/28/2023 08:33:36 10/27/19 24 10/28/2023 HEMOG LOBIN A1C hemoglobin A1C 6.4 %_of_ total _HGB <5.7 high For someo ne witho ut known diabe nathalie, a hemog lobin A1c value betwe en 5.7% and 6.4% is consi stent with predi abete s and shoul d be confi rmed with a follo w-up test. For someo ne with known diabe nathalie, a value <7% indic ates that their diabe nathalie is well contr olled . A1c targe ts shoul d be indiv idual ized based on durat ion of diabe nathalie, age, comor bid condi tions , and other consi derat ions. This assay resul t is consi stent with an incre ased risk of diabe nathalie. Curre ntly, no conse nsus exist s regar ding use of hemog lobin A1c for diagn osis of diabe nathalie for child divya. This test was perfo rmed on the [facility] c[facility] platf orm. Effec tive , a aviles e in test platf orms from the [facility] to the [facility] c503 may have shift ed HbA1c resul ts sandy red to histo rical resul ts. Based on labor atory valid ation testi ng condu cted at [facility] , the [facility] platf orm relat edouard to the [facility] platf orm had an avera ge incre ase in HbA1c value of < or = 0.3%. This diffe rence is withi n accep yann varia bilit y estab lishe d by the Natio nal Glyco hemog lobin Stand bony ahumada Progr am. Note that not all indiv idual s will have had a shift in their resul ts and direc t sandy rison s betwe en histo rical and curre nt resul ts for testi ng condu cted on diffe rent platf orms is not recom jana d. Not Available [address] [address] [place], [address], 10/28/2023 05:49:48 11/21/1911/22/2023 COMPR EHENS EDOUARD METAB OLIC PANEL glucose 199 mg/dL 65-99 high Fasti ng refer ence inter juan For someo ne witho ut known diabe nathalie, a gluco se value >125 mg/dL indic ates that they may have diabe nathalie and this shoul d be confi rmed with a follo w-up test. Not Available [address] [address] , [place], [address], 11/22/2023 06:40:41 11/21/1911/22/2023 COMPR EHENS EDOUARD METAB OLIC PANEL urea nitrogen (BUN) 18 mg/dL 7-25 normal Not Available [address] [address] [place], [address], 11/22/2023 06:40:41 11/21/1911/22/2023 COMPR EHENS EDOUARD METAB OLIC PANEL creatinine 0.88 mg/dL 0.50-1 .03 normal Not Available [facility] [address] [address] [place], [address], 11/22/2023 06:40:41 11/21/1911/22/2023 COMPR EHENS EDOUARD METAB OLIC PANEL eGFR 78 mL/mi n/1.7 3m2 > or = 60 normal Not Available [facility] [address] [address] [place], [address], 11/22/2023 06:40:41 11/21/1911/22/2023 COMPR EHENS EDOUARD METAB OLIC PANEL BUN/creatini ne ratio SEE NOTE: (calc ) 6-22 Not Repor yann: BUN and Creat inine are withi n refer ence range . Not Available [address], [address], 11/22/2023 06:40:41 11/21/19 24 11/22/2023 COMPR EHENS EDOUARD METAB OLIC PANEL sodium 137 mmol/ L 135-14 6 normal Not Available [address], [address], 11/22/2023 06:40:41 11/21/19 24 11/22/2023 COMPR EHENS EDOUARD METAB OLIC PANEL potassium 4.3 mmol/ L 3.5-5. 3 normal Not Available [address], [address], 11/22/2023 06:40:41 11/21/19 24 11/22/2023 COMPR EHENS EDOUARD METAB OLIC PANEL chloride 105 mmol/ L 98-110 normal Not Available [address], [address], 11/22/2023 06:40:41 11/21/19 24 11/22/2023 COMPR EHENS EDOUARD METAB OLIC PANEL carbon dioxide 27 mmol/ L 20-32 normal Not Available [address], [address], 11/22/2023 06:40:41 11/21/19 24 11/22/2023 COMPR EHENS EDOUARD METAB OLIC PANEL calcium 9.4 mg/dL 8.6-10 .4 normal Not Available [address], [address], 11/22/2023 06:40:41 11/21/19 24 11/22/2023 COMPR EHENS EDOUARD METAB OLIC PANEL protein, total 6.9 g/dL 6.1-8. 1 normal Not Available [address], [address], 11/22/2023 06:40:41 11/21/19 24 11/22/2023 COMPR EHENS EDOUARD METAB OLIC PANEL albumin 4.2 g/dL 3.6-5. 1 normal Not Available [address], [address], 11/22/2023 06:40:41 11/21/19 24 11/22/2023 COMPR EHENS EDOUARD METAB OLIC PANEL globulin 2.7 g/dL_ (calc ) 1.9-3. 7 normal Not Available [address], [address], 11/22/2023 06:40:41 11/21/19 24 11/22/2023 COMPR EHENS EDOUARD METAB OLIC PANEL albumin/glob ulin ratio 1.6 (calc ) 1.0-2. 5 normal Not Available [address], [address], 11/22/2023 06:40:41 11/21/19 24 11/22/2023 COMPR EHENS EDOUARD METAB OLIC PANEL bilirubin, total 0.3 mg/dL 0.2-1. 2 normal Not Available [address], [address], 11/22/2023 06:40:41 11/21/19 24 11/22/2023 COMPR EHENS EDOUARD METAB OLIC PANEL alkaline phosphatase 85 U/L 37-153 normal Not Available [facility] [employer] [address], [address], 11/22/2023 06:40:41 11/21/19 24 11/22/2023 COMPR EHENS EDOUARD METAB OLIC PANEL AST 22 U/L 10-35 normal Not Available [address], [address], 11/22/2023 06:40:41 11/21/19 24 11/22/2023 COMPR EHENS EDOUARD METAB OLIC PANEL ALT 21 U/L 6-29 normal Not Available [address], [address], 11/22/2023 06:40:41 11/21/19 24 11/22/2023 CBC (INCL UDES DIFF/ PLT) white blood cell count 6.7 thous and/u L 3.8-10 .8 normal Not Available [address], [address], 11/22/2023 11:03:53 11/21/1911/22/2023 CBC (INCL UDES DIFF/ PLT) red blood cell count 4.19 ismael on/uL 3.80-5 .10 normal Not Available [address], [address], 11/22/2023 11:03:53 11/21/19 24 11/22/2023 CBC (INCL UDES DIFF/ PLT) hemoglobin 11.9 g/dL 11.7-1 5.5 normal Not Available [address], [address], 11/22/2023 11:03:53 11/21/1911/22/2023 CBC (INCL UDES DIFF/ PLT) hematocrit 37.3 % 35.0-4 5.0 normal Not Available [address], [address], 11/22/2023 11:03:53 11/21/1911/22/2023 CBC (INCL UDES DIFF/ PLT) MCV 89.0 fL 80.0-1 00.0 normal Not Available [address], [address], 11/22/2023 11:03:53 11/21/1911/22/2023 CBC (INCL UDES DIFF/ PLT) MCH 28.4 pg 27.0-3 3.0 normal Not Available [address], [address], 11/22/2023 11:03:53 11/21/19 24 11/22/2023 CBC (INCL UDES DIFF/ PLT) MCHC 31.9 g/dL 32.0-3 6.0 low For adult s, a sligh t decre ase in the calcu lated MCHC value (in the range of 30 to 32 g/dL) is most likel y not clini sreekanth signi benson t; felecia er, it shoul d be inter prete d with cauti on in [facility] lat n with other red cell julianne eters and the patie nt's clini luna condi tion. Not Available [address], [address], 11/22/2023 11:03:53 11/21/19 24 11/22/2023 CBC (INCL UDES DIFF/ PLT) RDW 13.7 % 11.0-1 5.0 normal Not Available [address], [address], 11/22/2023 11:03:53 11/21/19 24 11/22/2023 CBC (INCL UDES DIFF/ PLT) platelet count 194 thous and/u L 140-40 0 normal Not Available [address], [address], 11/22/2023 11:03:53 11/21/19 24 11/22/2023 CBC (INCL UDES DIFF/ PLT) MPV 11.4 fL 7.5-12 .5 normal Not Available [address], [address], 11/22/2023 11:03:53 11/21/19 24 11/22/2023 CBC (INCL UDES DIFF/ PLT) absolute neutrophils 3363 cells /uL 1500-7 800 normal Not Available [address], [address], 11/22/2023 11:03:53 11/21/19 24 11/22/2023 CBC (INCL UDES DIFF/ PLT) absolute lymphocytes 2734 cells /uL 850-39 00 normal Not Available [address], [address], 11/22/2023 11:03:53 11/21/1911/22/2023 CBC (INCL UDES DIFF/ PLT) absolute monocytes 476 cells /uL 200-95 0 normal Not Available [address], [address], 11/22/2023 11:03:53 11/21/1911/22/2023 CBC (INCL UDES DIFF/ PLT) absolute eosinophils 80 cells /uL 15-500 normal Not Available [address], [address], 11/22/2023 11:03:53 11/21/19 24 11/22/2023 CBC (INCL UDES DIFF/ PLT) absolute basophils 47 cells /uL 0-200 normal Not Available [address], [address], 11/22/2023 11:03:53 11/21/19 24 11/22/2023 CBC (INCL UDES DIFF/ PLT) neutrophils 50.2 % normal Not Available [address], [address], 11/22/2023 11:03:53 11/21/19 24 11/22/2023 CBC (INCL UDES DIFF/ PLT) lymphocytes 40.8 % normal Not Available [address], [address], 11/22/2023 11:03:53 11/21/19 24 11/22/2023 CBC (INCL UDES DIFF/ PLT) monocytes 7.1 % normal Not Available [facility] [address] [address] [place], [address], 11/22/2023 11:03:53 11/21/19 24 11/22/2023 CBC (INCL UDES DIFF/ PLT) eosinophils 1.2 % normal Not Available [facility] [address] [address] [place], [address], 11/22/2023 11:03:53 11/21/19 24 11/22/2023 CBC (INCL UDES DIFF/ PLT) basophils 0.7 % normal Not Available [facility] [address] [address] [place], [address], 11/22/2023 11:03:53 11/21/19 24 11/22/2023 HEMOG LOBIN A1C hemoglobin A1C 6.5 %_of_ total _HGB <5.7 high For someo ne witho ut known diabe nathalie, a hemog lobin A1c value of 6.5% or great er indic ates that they may have diabe nathalie and this shoul d be confi rmed with a follo w-up test. For someo ne with known diabe nathalie, a value <7% indic ates that their diabe nathalie is well contr olled and a value great er than or equal to 7% indic ates subop timal contr ol. A1c targe ts shoul d be indiv idual ized based on durat ion of diabe nathalie, age, comor bid condi tions , and other consi derat ions. Curre ntly, no conse nsus exist s levy alcaraz use of hemog lobin A1c for diagn osis of diabe nathalie for child divya. Not Available [facility] [address] [address] [place], [address], 11/22/2023 02:10:04 12/19/19 24 12/20/2023 IRON, TOTAL iron, total 47 mcg/d L 45-160 normal Not Available [facility] [address] [address] [place], [address], 12/20/2023 08:43:29 12/19/19 24 12/20/2023 COMPR EHENS EDOUARD METAB OLIC PANEL glucose 147 mg/dL 65-99 high Fasti ng refer ence inter juan For someo ne witho ut known diabe nathalie, a gluco se value >125 mg/dL indic ates that they may have diabe nathalie and this shoul d be confi rmed with a follo w-up test. Not Available [address] [place], [address], 12/20/2023 08:43:30 12/19/19 24 12/20/2023 COMPR EHENS EDOUARD METAB OLIC PANEL urea nitrogen (BUN) 19 mg/dL 7-25 normal Not Available [address], [address], 12/20/2023 08:43:30 12/19/19 24 12/20/2023 COMPR EHENS EDOUARD METAB OLIC PANEL creatinine 0.77 mg/dL 0.50-1 .03 normal Not Available [address], [address], 12/20/2023 08:43:30 12/19/19 24 12/20/2023 COMPR EHENS EDOUARD METAB OLIC PANEL eGFR 92 mL/mi n/1.7 3m2 > or = 60 normal Not Available [address], [address], 12/20/2023 08:43:30 12/19/19 24 12/20/2023 COMPR EHENS EDOUARD METAB OLIC PANEL BUN/creatini ne ratio SEE NOTE: (calc ) 6-22 Not Repor yann: BUN and Creat inine are withi n refer ence range . Not Available [address], [address], 12/20/2023 08:43:30 12/19/19 24 12/20/2023 COMPR EHENS EDOUARD METAB OLIC PANEL sodium 141 mmol/ L 135-14 6 normal Not Available [address], [address], 12/20/2023 08:43:30 12/19/19 24 12/20/2023 COMPR EHENS EDOUARD METAB OLIC PANEL potassium 4.4 mmol/ L 3.5-5. 3 normal Not Available [address], [address], 12/20/2023 08:43:30 12/19/19 24 12/20/2023 COMPR EHENS EDOUARD METAB OLIC PANEL chloride 102 mmol/ L 98-110 normal Not Available [address], [address], 12/20/2023 08:43:30 12/19/19 24 12/20/2023 COMPR EHENS EDOUARD METAB OLIC PANEL carbon dioxide 31 mmol/ L 20-32 normal Not Available [address], [address], 12/20/2023 08:43:30 12/19/19 24 12/20/2023 COMPR EHENS EDOUARD METAB OLIC PANEL calcium 9.0 mg/dL 8.6-10 .4 normal Not Available [address], [address], 12/20/2023 08:43:30 12/19/19 24 12/20/2023 COMPR EHENS EDOUARD METAB OLIC PANEL protein, total 6.4 g/dL 6.1-8. 1 normal Not Available [address], [address], 12/20/2023 08:43:30 12/19/19 24 12/20/2023 COMPR EHENS EDOUARD METAB OLIC PANEL albumin 3.7 g/dL 3.6-5. 1 normal Not Available [address], [address], 12/20/2023 08:43:30 12/19/19 24 12/20/2023 COMPR EHENS EDOUARD METAB OLIC PANEL globulin 2.7 g/dL_ (calc ) 1.9-3. 7 normal Not Available [address], [address], 12/20/2023 08:43:30 12/19/19 24 12/20/2023 COMPR EHENS EDOUARD METAB OLIC PANEL albumin/glob ulin ratio 1.4 (calc ) 1.0-2. 5 normal Not Available [address], [address], 12/20/2023 08:43:30 12/19/19 24 12/20/2023 COMPR EHENS EDOUARD METAB OLIC PANEL bilirubin, total 0.4 mg/dL 0.2-1. 2 normal Not Available [address], [address], 12/20/2023 08:43:30 12/19/19 24 12/20/2023 COMPR EHENS EDOUARD METAB OLIC PANEL alkaline phosphatase 78 U/L 37-153 normal Not Available [address], [address], 12/20/2023 08:43:30 12/19/19 24 12/20/2023 COMPR EHENS EDOUARD METAB OLIC PANEL AST 15 U/L 10-35 normal Not Available [address], [address], 12/20/2023 08:43:30 12/19/19 24 12/20/2023 COMPR EHENS EDOUARD METAB OLIC PANEL ALT 12 U/L 6-29 normal Not Available [address], [address], 12/20/2023 08:43:30 12/19/19 24 12/20/2023 CBC (INCL UDES DIFF/ PLT) white blood cell count 6.5 thous and/u L 3.8-10 .8 normal Not Available [address], [address], 12/20/2023 08:43:31 12/19/19 24 12/20/2023 CBC (INCL UDES DIFF/ PLT) red blood cell count 4.25 ismael on/uL 3.80-5 .10 normal Not Available [address], [address], 12/20/2023 08:43:31 12/19/19 24 12/20/2023 CBC (INCL UDES DIFF/ PLT) hemoglobin 12.2 g/dL 11.7-1 5.5 normal Not Available [address], [address], 12/20/2023 08:43:31 12/19/19 24 12/20/2023 CBC (INCL UDES DIFF/ PLT) hematocrit 37.4 % 35.0-4 5.0 normal Not Available [address], [address], 12/20/2023 08:43:31 12/19/19 24 12/20/2023 CBC (INCL UDES DIFF/ PLT) MCV 88.0 fL 80.0-1 00.0 normal Not Available [address], [address], 12/20/2023 08:43:31 12/19/19 24 12/20/2023 CBC (INCL UDES DIFF/ PLT) MCH 28.7 pg 27.0-3 3.0 normal Not Available [address], [address], 12/20/2023 08:43:31 12/19/19 24 12/20/2023 CBC (INCL UDES DIFF/ PLT) MCHC 32.6 g/dL 32.0-3 6.0 normal For adult s, a sligh t decre ase in the calcu lated MCHC value (in the range of 30 to 32 g/dL) is most likel y not clini sreekanth signi benson t; felecia er, it shoul d be inter prete d with cauti on in corre lat n with other red cell julianne eters and the patie nt's clini luna condi tion. Not Available [address], [address], 12/20/2023 08:43:31 12/19/19 24 12/20/2023 CBC (INCL UDES DIFF/ PLT) RDW 12.7 % 11.0-1 5.0 normal Not Available [facility] [address], [address], 12/20/2023 08:43:31 12/19/19 24 12/20/2023 CBC (INCL UDES DIFF/ PLT) platelet count 171 thous and/u L 140-40 0 normal Not Available [address], [address], 12/20/2023 08:43:31 12/19/19 24 12/20/2023 CBC (INCL UDES DIFF/ PLT) MPV 11.0 fL 7.5-12 .5 normal Not Available [address], [address], 12/20/2023 08:43:31 12/19/19 24 12/20/2023 CBC (INCL UDES DIFF/ PLT) absolute neutrophils 3471 cells /uL 1500-7 800 normal Not Available [facility] [address], [address], 12/20/2023 08:43:31 12/19/19 24 12/20/2023 CBC (INCL UDES DIFF/ PLT) absolute lymphocytes 2275 cells /uL 850-39 00 normal Not Available [facility] [address], [address], 12/20/2023 08:43:31 12/19/19 24 12/20/2023 CBC (INCL UDES DIFF/ PLT) absolute monocytes 592 cells /uL 200-95 0 normal Not Available [address], [address], 12/20/2023 08:43:31 12/19/19 24 12/20/2023 CBC (INCL UDES DIFF/ PLT) absolute eosinophils 111 cells /uL 15-500 normal Not Available [address], [address], 12/20/2023 08:43:31 12/19/19 24 12/20/2023 CBC (INCL UDES DIFF/ PLT) absolute basophils 52 cells /uL 0-200 normal Not Available [address], [address], 12/20/2023 08:43:31 12/19/19 24 12/20/2023 CBC (INCL UDES DIFF/ PLT) neutrophils 53.4 % normal Not Available [address], [address], 12/20/2023 08:43:31 12/19/19 24 12/20/2023 CBC (INCL UDES DIFF/ PLT) lymphocytes 35.0 % normal Not Available [address], [address], 12/20/2023 08:43:31 12/19/19 24 12/20/2023 CBC (INCL UDES DIFF/ PLT) monocytes 9.1 % normal Not Available [address], [address], 12/20/2023 08:43:31 12/19/19 24 12/20/2023 CBC (INCL UDES DIFF/ PLT) eosinophils 1.7 % normal Not Available [address], [address], 12/20/2023 08:43:31 12/19/19 24 12/20/2023 CBC (INCL UDES DIFF/ PLT) basophils 0.8 % normal Not Available [facility] [address] [address] [facility], [place], [address], 12/20/2023 08:43:31 04/29/19 15 04/23/2014 imagi ng/di agnos tic resul t No observ ation record ed. [email or web address] Not Available 2023 12:22:15 05/27/19 25 05/26/2024 XR, knee No observ ation record ed. [facility] [address], [place], [address], 05/26/2024 13:20:51 Result Notes Documentation Provider Name and Address Organization Details Recorded Time Noninvasive Colorectal Cancer Dna + Occult Blood Screening, Ql, Stool : Negative Radha Robert [place] null, [place] - [facility] 02/11/2024 16:33:46 Problems Name Problem SNOMED Code Status Onset Date Resolution Date Notes Provider Name and Address Organization Details Recorded Time Anemia 723427707 Active Zahida Austill [place] [facility] 4 12:22:11 Liver function tests outside reference range 548417523 Active Zahida [place]ill [place] [facility] 4 12:22:11 Acute sinusitis 75345104 Active Zahida [place] [facility] 4 12:22:11 Rheumatism 897247981 Active 2023 Tri Gonzales RN [place] [facility] 4 17:01:20 Essential hypertension 08801753 Active Zahida Austill [place] [facility] 4 12:22:11 Mixed anxiety and depressive disorder 169959277 Active Zahida Austill [place] [facility] 4 12:22:11 Diabetes mellitus 11060906 Active endo-D r.Sand hu Zahida Austill [place] [facility] 4 12:22:11 Chronic back pain 836686495 Active Zahida Austill [place] [facility] 4 12:22:11 Problem Notes None recorded. Procedures Surgical History None recorded. Imaging Results Imaging Date Name Status LastModified by Organiz ation Details LastModified Time 04/23/2014 imaging/diag nostic result completed [email or web address] Information not available 06/29/2023 12:22:15 05/26/2024 XR, knee active JUAN [place] juan jose [address], [place], [address], 05/26/2024 13:20:51 Procedure Notes None recorded. Medical Equipment None Reported. Allergies Allergen ID Allergen Name Allergen Category Reaction Reaction Severity Criticality Documentation Date Start Date Code Code System Note Provider Name and Address Organization Details Recorded Time 617912 atenolol medicatio n Not available Not available Not available 06/25/2023 1202 RxNorm PVC's Not Available Not Available Not Available 709702 Celebrex medicatio n Not available Not available Not available 08/18/2023 19348 7 RxNorm GI upset Not Available Not Available Not Available 6522 atenolol medicatio n irregular heart rate Not available Not available 01/23/2014 1202 RxNorm Not Available Not Available Not Available Medications Name Sig Start Date Stop Date Status Note LastModified by Organization Details LastModified Time Prescript ion - Prior Authoriza tion Request active Not Available Not Available Not Available carisopro dol 350 mg tablet take 1 tablet by mouth three times daily as needed active Not Available Not Available No t Available cyclobenz aprine 10 mg tablet TAKE ONE TABLET BY MOUTH AT BEDTIME 06/29 completed Not Available Not Available Not Available amoxicill in 500 mg capsule 07/06 completed Not Available Not Available Not Available furosemid e 40 mg tablet TAKE 1 TABLET BY MOUTH DAILY 02/02 completed Not Available Not Available Not Available BD SafetyGli de Shielding Regular Bevel 1 mL 25 gauge x 5/8 syringe USE DIRECTED TO INJECT B-12 ONCE WEEKLY FOR 4 WEEKS, THEN MONTHLY THEREAFT ER active Not Available Not Available No t Available neomycin- polymyxin -hydrocor t 3.5 mg/mL-10, 000 unit/mL-1 % ear solution INSTILL 4 DROPS TO AFFECTED EAR THREE TIMES DAILY FOR 7 DAYS 06/24 completed Not Available Not Available Not Available clonidine HCl 0.1 mg tablet TAKE 1 TABLET BY MOUTH THREE TIMES DAILY NEEDED active Not Available Not Available No t Available doxycycli ne hyclate 100 mg capsule TAKE 1 CAPSULE BY MOUTH TWICE DAILY FOR 14 DAYS 06/24 completed Not Available Not Available Not Available nadolol 80 mg tablet TAKE 1 TABLET BY MOUTH THREE TIMES DAILY active Not Available Not Available No t Available clindamyc in HCl 300 mg capsule Take 1 capsule 4 times a day by oral route for 10 days. 06/29 completed Not Available Not Available Not Available albuterol sulfate 2.5 mg/3 mL (0.083 %) solution for nebulizat ion active Not Available Not Available Not Available trazodone 50 mg tablet TAKE 1 TABLET BY MOUTH EVERY NIGHT AT BEDTIME NEEDED active Not Available Not Available No t Available cetirizin e 10 mg tablet TAKE 1 TABLET BY MOUTH DAILY active Not Available Not Available No t Available lisinopri l 20 mg-hydroc hlorothia zide 12.5 mg tablet TAKE ONE TABLET BY MOUTH ONCE DAILY active Not Available Not Available No t Available azithromy nathalia 250 mg tablet TAKE 2 TABLETS (500 MG) BY ORAL ROUTE ONCE DAILY FOR 1 DAY THEN 1 TABLET (250 MG) BY ORAL ROUTE ONCE DAILY FOR 4 DAYS 02/02 completed Not Available Not Available Not Available ibuprofen 800 mg tablet TAKE 1 TABLET BY MOUTH THREE TIMES DAILY NEEDED active Not Available Not Available No t Available fluconazo le 150 mg tablet TAKE 1 TABLET BY MOUTH EVERY WEEK FOR 7 DAYS DIRECTED 11/22 completed Not Available Not Available Not Available valacyclo vir 1 gram tablet TAKE 2 TABLETS BY MOUTH EVERY 12 HOURS FOR 1 DAY 06/24 completed Not Available Not Available Not Available hydrocodo ne 5 mg-acetam inophen 325 mg tablet TAKE 1 TABLET BY MOUTH TWICE DAILY NEEDED 06/29 completed Not Available Not Available Not Available ondansetr on HCl 8 mg tablet TAKE 1 TABLET BY MOUTH EVERY 8 HOURS NEEDED active Not Available Not Available No t Available meloxicam 15 mg tablet TAKE 1 TABLET BY MOUTH DAILY NEEDED FOR FOOT PAIN OR FLARE UP 03/18 completed Not Available Not Available Not Available prednison e 20 mg tablet TAKE 1 TABLET BY MOUTH EVERY DAY WITH FOOD 11/25 completed Not Available Not Available Not Available Lantus U-100 Insulin 100 unit/mL subcutane ous solution Inject by subcutan eous route. active Not Available Not Available No t Available penicilli n V potassium 500 mg tablet TAKE 1 TABLET BY MOUTH THREE TIMES DAILY FOR 10 DAYS 11/25 completed Not Available Not Available Not Available potassium chloride ER 10 mEq tablet,ex tended release TAKE 1 TABLET BY MOUTH DAILY NEEDED active Not Available Not Available No t Available sulfameth oxazole 800 mg-trimet hoprim 160 mg tablet TAKE 1 TABLET BY MOUTH EVERY 12 HOURS FOR 7 DAYS 06/24 completed Not Available Not Available Not Available hydrocodo ne 10 mg-acetam inophen 325 mg tablet TAKE 1 TABLET BY MOUTH THREE TIMES DAILY NEEDED 05/09 completed Not Available Not Available Not Available aspirin 81 mg tablet,de layed release Take 1 tablet every day by oral route. 06/29 completed Not Available Not Available Not Available doxycycli ne monohydra te 100 mg tablet Take 1 tablet twice a day by oral route for 10 days. 02/25 completed Not Available Not Available Not Available tramadol 50 mg tablet TAKE 1 TABLET BY MOUTH EVERY 6 HOURS 06/29 completed Not Available Not Available Not Available amoxicill in 500 mg tablet TAKE 1 TABLET BY MOUTH THREE TIMES DAILY UNTIL ALL TAKEN 06/24 completed Not Available Not Available Not Available glimepiri de 2 mg tablet Take 1 tablet twice a day by oral route. 06/24 completed Not Available Not Available Not Available pantopraz ole 20 mg tablet,de layed release TAKE 1 TABLET BY MOUTH ONCE DAILY 06/24 completed Not Available Not Available Not Available Macrobid 100 mg capsule Take 1 capsule every 12 hours by oral route for 7 days. 06/24 completed Not Available Not Available Not Available oxycodone -acetamin ophen 5 mg-325 mg tablet TAKE 1 TABLET BY MOUTH EVERY 8 HOURS NEEDED 06/24 completed Not Available Not Available Not Available Tessalon Perles 100 mg capsule Take 1 capsule 3 times a day by oral route as needed. 06/29 completed Not Available Not Available Not Available alprazola m 0.5 mg tablet 06/29 completed Not Available Not Available Not Available amoxicill in 875 mg tablet TAKE 1 TABLET BY MOUTH EVERY 12 HOURS FOR 7 DAYS 06/24 completed Not Available Not Available Not Available potassium chloride ER 20 mEq tablet,ex tended release(p art/cryst ) TAKE 1 TABLET BY MOUTH AT BEDTIME 10/28 completed Not Available Not Available Not Available famotidin e 20 mg tablet TAKE 1 TABLET BY MOUTH TWICE DAILY NEEDED active Not Available Not Available No t Available prednisol one acetate 1 % eye drops,maico pension INSTILL 1 DROP IN LEFT EYE FOUR TIMES A DAY active Not Available Not Available No t Available magnesium oxide 400 mg (241.3 mg magnesium ) tablet TAKE 1 TABLET BY MOUTH EVERY DAY active Not Available Not Available No t Available methotrex ate sodium 2.5 mg tablet TAKE 6 TABLETS BY MOUTH EVERY WEEK 11/25 completed Not Available Not Available Not Available OneTouch Ultra Test strips USE TO TEST BLOOD SUGAR LEVELS THREE TIMES DAILY active Not Available Not Available No t Available amlodipin e 10 mg tablet TAKE 1 TABLET BY MOUTH DAILY active Not Available Not Available No t Available doxycycli ne monohydra te 100 mg capsule Take 1 capsule twice a day by oral route for 10 days. 2024 active Not Available Not Available Not Avai lable hydrocodo ne 7.5 mg-acetam inophen 325 mg tablet TAKE 1 TABLET BY MOUTH THREE TIMES DAILY NEEDED active Not Available Not Available No t Available prednison e 2.5 mg tablet 06/29 completed Not Available Not Available Not Available cephalexi n 500 mg capsule TAKE 1 CAPSULE BY MOUTH FOUR TIMES DAILY FOR 14 DAYS active Not Available Not Available No t Available pantopraz ole 40 mg tablet,de layed release TAKE 1 TABLET BY MOUTH EVERY DAY 06/24 completed Not Available Not Available Not Available cyanocoba gaurang (vit B-12) 1,000 mcg/mL injection solution ADMINIST ER 1 ML UNDER THE SKIN EVERY MONTH active Not Available Not Available No t Available metformin 1,000 mg tablet Take 1 tablet twice a day by oral route. 06/29 completed Not Available Not Available Not Available fluoromet holone 0.1 % eye drops,maico pension SHAKE LIQUID AND INSTILL 1 DROP IN BOTH EYES TWICE DAILY FOR 2 WEEKS active Not Available Not Available No t Available lansopraz ole 15 mg capsule,d elayed release active Not Available Not Available Not Available omeprazol e 20 mg capsule,d elayed release 2024 active Not Available Not Available Not Avai lable folic acid 1 mg tablet TAKE 1 TABLET BY MOUTH EVERY DAY active Not Available Not Available No t Available furosemid e 20 mg tablet TAKE 1 TABLET BY MOUTH EVERY DAY active Not Available Not Available No t Available ergocalci ferol (vitamin D2) 1,250 mcg (50,000 unit) capsule TAKE 1 CAPSULE BY MOUTH ONCE WEEKLY ON THURSDAY active Not Available Not Available No t Available Novolog U-100 Insulin aspart 100 unit/mL subcutane ous solution active Not Available Not Available Not Available hydroxych loroquine 200 mg tablet TAKE 1 TABLET BY MOUTH EVERY 12 HOURS active Not Available Not Available No t Available lovastati n 20 mg tablet TAKE ONE TABLET BY MOUTH ONCE DAILY WITH THE EVENING MEAL 12/16 completed Not Available Not Available Not Available methylpre dnisolone 4 mg tablets in a dose pack FOLLOW PACKAGE DIRECTIO NS 06/24 completed Not Available Not Available Not Available albuterol sulfate HFA 90 mcg/actua tion aerosol inhaler INHALE 2 PUFFS BY MOUTH EVERY 4 TO 6 HOURS NEEDED FOR SHORTNES S OF BREATH AND/OR WHEEZING active Not Available Not Available No t Available celecoxib 100 mg capsule TAKE 1 CAPSULE BY MOUTH TWICE DAILY 07/16 completed upset stomach Not Available Not Available Not Available fluticaso ne propionat e 50 mcg/actua tion nasal spray,maico pension SHAKE LIQUID WELL AND INSTILL 1 SPRAY INTRANAS ALLY TO EACH NOSTRIL DAILY active Not Available Not Available No t Available metformin ER 500 mg tablet,ex tended release 24 hr TAKE 2 TABLETS BY MOUTH TWICE DAILY BEFORE MEALS active Not Available Not Available No t Available sertralin e 50 mg tablet TAKE ONE TABLET BY MOUTH ONCE DAILY 06/29 completed Not Available Not Available Not Available doxycycli ne hyclate 100 mg tablet TAKE 1 TABLET BY MOUTH EVERY 12 HOURS 06/24 completed Not Available Not Available Not Available gentamici n 0.1 % topical ointment 02/25 completed Not Available Not Available Not Available progester one micronize d 100 mg capsule TAKE 1 CAPSULE BY MOUTH EVERY NIGHT active Not Available Not Available No t Available amoxicill in 875 mg-potass ium clavulana te 125 mg tablet TAKE 1 TABLET BY MOUTH TWICE DAILY FOR 7 DAYS 06/24 completed Not Available Not Available Not Available amoxicill in 500 mg-potass ium clavulana te 125 mg tablet TAKE 1 TABLET BY MOUTH THREE TIMES DAILY 11/17 completed Not Available Not Available Not Available esomepraz ole magnesium 20 mg capsule,d elayed release Take 1 capsule every day by oral route for 30 days. 02/25 completed Not Available Not Available Not Available insulin lispro (U-100) 100 unit/mL subcutane ous pen INJECT 50 UNITS UNDER THE SKIN THREE TIMES DAILY BEFORE MEALS active Not Available Not Available No t Available escitalop bakari 10 mg tablet TAKE 1 TABLET BY MOUTH EVERY DAY 2023 active Not Available Not Available Not Avai lable escitalop bakari 20 mg tablet TAKE 1 TABLET BY MOUTH EVERY DAY 06/24 completed Not Available Not Available Not Available Novolog FlexPen U-100 Insulin aspart 100 unit/mL (3 mL) subcutane ous INJECT 30 UNITS SUBCUTAN EOUSLY THREE TIMES A DAY active Not Available Not Available No t Available cyclobenz aprine 5 mg tablet TAKE 1 TABLET BY MOUTH THREE TIMES DAILY NEEDED active Not Available Not Available No t Available cyclospor ine 0.05 % eye drops in a dropperet te INSTILL 1 DROP INTO BOTH EYES TWICE DAILY active Not Available Not Available No t Available rosuvasta tin 40 mg tablet TAKE 1 TABLET BY MOUTH TWICE WEEKLY AT BEDTIME active Not Available Not Available No t Available pregabali n 150 mg capsule TAKE 1 CAPSULE BY MOUTH 3 TIMES DAILY 06/29 completed Not Available Not Available Not Available pregabali n 200 mg capsule TAKE 1 CAPSULE BY MOUTH TWICE DAILY active Not Available Not Available No t Available Afrin (oxymetaz oline) 1 puff intranas ally three times a day as needed for congesti on active Not Available Not Available No t Available OneTouch Ultra2 Meter kit use as directed to check blood glucose 2023 active Not Available Not Available Not Avai lable Advair HFA 230 mcg-21 mcg/actua tion aerosol inhaler INHALE 2 PUFFS BY MOUTH EVERY 12 HOURS active Not Available Not Available No t Available fenofibra te nanocryst allized 145 mg tablet TAKE 1 TABLET BY MOUTH EVERY DAY IN THE MORNING 11/25 completed Not Available Not Available Not Available FeroSul 325 mg (65 mg iron) tablet TAKE 1 TABLET BY MOUTH EVERY DAY active Not Available Not Available No t Available Lantus Solostar U-100 Insulin 100 unit/mL (3 mL) subcutane ous pen active Not Available Not Available Not Available tranexami c acid 650 mg tablet TAKE 2 TABLETS BY MOUTH THREE TIMES DAILY active Not Available Not Available No t Available Accu-Chek FastClix Lancing Device active Not Available Not Available Not Available icosapent ethyl 1 gram capsule TAKE 2 CAPSULES BY MOUTH TWICE DAILY BEFORE MEALS active Not Available Not Available No t Available Victoza 3-Doroteo 0.6 mg/0.1 mL (18 mg/3 mL) subcutane ous pen injector ADMINIST ER 1.8 MG UNDER THE SKIN DAILY WITH MEALS 06/29 completed Not Available Not Available Not Available Farxiga 10 mg tablet TAKE 1 TABLET BY MOUTH ONCE DAILY IN THE MORNING 06/29 completed Not Available Not Available Not Available Trulicity 0.75 mg/0.5 mL subcutane ous pen injector INJECT 0.5 ML ONCE WEEKLY SUBCUTAN EOUSLY 06/24 completed Not Available Not Available Not Available naloxone 4 mg/actuat ion nasal spray CALL 911. SPR CONTENTS OF ONE SPRAYER (0.1ML) INTO ONE NOSTRIL. REPEAT IN 2-3 MIN IF SYMPTOMS OF OPIOID EMERGENC Y PERSIST, ALTERNAT E NOSTRILS active Not Available Not Available No t Available Xiidra 5 % eye drops in a dropperet te INSTILL 1 DROP INTO BOTH EYES TWICE DAILY active Not Available Not Available No t Available TRUEplus Pen Needle 32 gauge x 5/32 USE THREE TIMES DAILY WITH INSULIN active Not Available Not Available No t Available OneTouch Ultra2 Meter USE DIRECTED FOR BLOOD GLUCOSE MONITORI NG active Not Available Not Available No t Available OneTouch Delica Plus Lancet 30 gauge USE TO TEST BLOOD SUGAR THREE TIMES DAILY active Not Available Not Available No t Available Phexxi 1.8 %-1 %-0.4 % vaginal gel INSERT 1 PRE FILLED APPLICAT OR VAGINALL Y IMMEDIAT KYLIE BEFORE EACH EPISODE OF INTERCOU RSE DIRECTED active Not Available Not Available No t Available Trulicity 3 mg/0.5 mL subcutane ous pen injector ADMINIST ER 3 MG UNDER THE SKIN EVERY WEEK active Not Available Not Available No t Available Wegovy 0.25 mg/0.5 mL subcutane ous pen injector Inject by subcutan eous route for 28 days. 08/09 completed Not covered for weight loss. PA was done. DR. Diane dx was for weight loss. Not Available Not Available Not Available aspirin 81 mg capsule Take 1 capsule every day by oral route at bedtime. active Not Available Not Available No t Available [facility] COVID-19 Antigen Rapid Home Test kit USE NEEDED active Not Available Not Available No t Available Vitals Date Recorded Body height Body mass index (BMI) Body weight Respiratory rate Body temperature Oxygen saturation Oxygen saturation in Arterial blood by Pulse oximetry Heart rate Systolic blood pressure Diastolic blood pressure Provider Name and Address Organization Details Last Updated DateTime 4 165.1 cm 37.6 kg/m2 950363. 58 g 16 /min 98.3 [degF] 99 % 99 % 84 /min 115 mm[Hg] 79 mm[Hg] Nina Servin MA [facility] 4 12:06:27 Date Recorded Respiratory rate Oxygen saturation Oxygen saturation in Arterial blood by Pulse oximetry Body weight Heart rate Body mass index (BMI) Body height Body temperature Systolic blood pressure Diastolic blood pressure Provider Name and Address Organization Details Last Updated DateTime 5 12 /min 100 % 100 % 24028.1 70948 g 88 /min 35.9 kg/m2 165.1 cm 98.3 [degF] 120 mm[Hg] 74 mm[Hg] [facility] 4 12:22:11 Date Recorded Respiratory rate Body weight Heart rate Body mass index (BMI) Body height Body temperature Systolic blood pressure Diastolic blood pressure Provider Name and Address Organization Details Last Updated DateTime 4 16 /min 26148.9 74666 g 86 /min 36.4 kg/m2 165.1 cm 98.4 [degF] 124 mm[Hg] 82 mm[Hg] [facility] 4 12:22:11 Social History Question Answer Notes LastModified by Organizat ion Details LastModified Time Tobacco Smoking Status Former Smoker quit in 1999 Nina Servin MA [facility] [place], [facility] 06/25/2023 12:00:23 Do You Have An Advance Directive? No Information not available 06/25/2023 What Is Your Level Of Alcohol Consumption? None Information not available 06/25/2023 Are You Blind Or Do You Have Difficulty Seeing? No Information not available 06/25/2023 What Is Your Level Of Caffeine Consumption? Moderate 1 Dt Soda/day Information not available 06/25/2023 In The 14 Days Before Symptom Onset, Have You Had Close Contact With A Laboratory-confir med COVID-19 While That Case Was Ill? No Information not available 06/25/2023 In The 14 Days Before Symptom Onset, Have You Had Close Contact With A Person Who Is Under Investigation For COVID-19 While That Person Was Ill? No Information not available 06/25/2023 Have You Been To An Area Known To Be High Risk For COVID-19? No Information not available 06/25/2023 Are You Currently Employed? Yes Information not available 06/25/2023 Are You Deaf Or Do You Have Serious Difficulty Hearing? No Information not available 06/25/2023 What Type Of Diet Are You Following? REGULAR Information not available 06/25/2023 What Is Your Occupation? [employer] Information not available 06/25/2023 Are There Any Guns Present In Your Home? Yes Information not available 06/25/2023 What Was The Date Of Your Most Recent Tobacco Screening? 06/25/2023 Information not available 06/25/2023 How Many Children Do You Have? 2 1 Living Information not available 06/25/2023 What Is Your Relationship Status? Information not available 06/25/2023 Do You Use Your Seat Belt Or Car Seat Routinely? Yes Information not available 06/25/2023 Are You Sexually Active? No Information not available 06/25/2023 Do You Have Smoke And Carbon Monoxide Detectors In Your Home? No Information not available 06/25/2023 At What Age Did You Start Smoking Tobacco? 15 Information not available 06/25/2023 Are You Passively Exposed To Smoke? No Information no t available 06/25/2023 Do You Feel Stressed (tense, Restless, Nervous, Or Anxious, Or Unable To Sleep At Night)? [id number] Information not available 06/25/2023 Do You Use Any Illicit Or Recreational Drugs? No Information not available 06/25/2023 Do You Use Sunscreen Routinely? No Information not available 06/25/2023 Has Tobacco Cessation Counseling Been Provided? No Information not available 06/25/2023 Do You Or Have You Ever Used Any Other Forms Of Tobacco Or Nicotine? No Information not available 06/25/2023 Sex: Female Functional Status Question Answer Note LastModified by Organization D etails LastModified Time Are you able to care for yourself? Yes Information n ot available 06/25/2023 What is your exercise level? None Information not available 06/25/2023 Mental Status None recorded. Family History Relationship Description Onset Age of this Age Resolved Age Notes LastModified by Organization Details LastModified Time Mother Asthma [email or web address] Not available 0 06/29/2023 12:22:11 Mother Hypertensive disorder [email or web address] Not available 2023 12:22:11 Mother Atrial fibrillation [email or web address] Not available 12:22:11 Mother Procedure on heart valve [email or web address] Not available 10/2023 11:58:52 Medical History Condition Response Coronary Artery Disease Y Other N High Blood Pressure Y Atrial Fibrillation N Thyroid Problems N Kidney or Bladder Problems N GI Problems N Depression N COPD N Blood Clots N Skin Problems N Eating Disorder N Anemia Y Heart Attack ([place]) N Anxiety Disorder N Diabetes Y Muscle, Joint, or Bone Problems Y Arthritis Y Seizures/Epilepsy N Acid Reflux (GERD) Y Cancer N Stroke N Asthma N Allergies N ADHD N Substance Abuse N High Cholesterol Y Hepatitis N Liver Disease N Schizophrenia N Headaches Y Heart Failure N Osteoporosis N Gynecological History Statement/Question Response Current Control Method Menopause LMP Approximate Obstetrics History GPAL:G 3 P 0 2 1 1 Type Value Induced 1 Premature 2 Living 1 Total 3 Immunizations Vaccine Type Date Status Note Provider Nam e and Address Organization Details Recorded Time Influenza, split virus, quadrivalent, preservative 7 completed Nina Servin [place] null, [place] - [facility] 06/25/2023 11:57:02 Influenza, MDCK, quadrivalent, PF 2 completed Nina Lorts, [place], [place] [facility] 06/25/2023 11:57:02 Influenza, recombinant, quadrivalent, PF 3 completed Nina Lorts, [place] [facility] 06/25/2023 11:57:02 zoster recombinant 3 completed Nina Lorts, [place] [facility] 06/25/2023 11:57:02 zoster recombinant 3 completed Nina Lorts, [place] [facility] 06/25/2023 11:57:02 COVID-19, mRNA, LNP-S, PF, 30 mcg/0.3 mL dose 1 completed Nian L[place], [place] [facility] 06/25/2023 11:57:02 COVID-19, mRNA, LNP-S, PF, 30 mcg/0.3 mL dose 1 completed Nina Hookts, [place] [facility] 06/25/2023 11:57:02 COVID-19, mRNA, LNP-S, PF, 30 mcg/0.3 mL dose, syed-sucrose 2 completed Nina Hookts, [place] [facility] 06/25/2023 11:57:02 COVID-19, mRNA, LNP-S, bivalent, PF, 50 mcg/0.5 mL or 25mcg/0.25 mL dose 3 completed Nina Hookts, [place] [facility] 06/25/2023 11:57:02 COVID-19, mRNA, LNP-S, PF, 50 mcg/0.5 mL 3 completed Nina Lorts, [place] [facility] 06/25/2023 11:57:02 pneumococcal polysaccharide PPV23 1 completed Nina Lorts, [place] [facility] 06/25/2023 11:57:02 Tdap 0 completed Nina Hookts, [place] [facility] 06/25/2023 11:57:02 Influenza, split virus, trivalent, preservative 3 completed Nina Hookts, [place] [facility] 06/25/2023 11:57:02 Influenza, split virus, trivalent, preservative 2 completed Nina Hookfariba [place] [facility] 06/25/2023 11:57:02 Influenza, split virus, trivalent, preservative 5 completed Nina Hookfariba [place] [facility] 06/25/2023 11:57:02 Influenza, split virus, trivalent, PF 7 completed Nina Hookfariba [place] [facility] 06/25/2023 11:57:02 Influenza, split virus, quadrivalent, PF 9 completed Nina Servin [place] [facility] 06/25/2023 11:57:02 Influenza, split virus, quadrivalent, PF 0 completed [place] Servin [place] [facility] 06/25/2023 11:57:02 Influenza, split virus, quadrivalent, PF 1 completed [place] Servin [place] [facility] 06/25/2023 11:57:02 Influenza, split virus, quadrivalent, PF 8 completed Nina Servin [place] [facility] 06/25/2023 11:57:02 Influenza, split virus, quadrivalent, PF 6 completed Nina Servin [place] [facility] 06/25/2023 11:57:02 Hep A-Hep B 2 completed Nina Servin [place] [facility] 06/25/2023 11:57:02 SARS-COV-2 (COVID-19) vaccine, UNSPECIFIED 4 completed Tri Gonzales [place] [facility] 11/04/2023 12:08:14 influenza, unspecified formulation 4 completed Tri Gonzales [place] [facility] 11/04/2023 12:10:02 Past Encounters Encounter ID Performer Location Encounter Start Date Encounter Closed Date Diagnosis/Indication Diagnosis SNOMED-CT Code Diagnosis ICD10 Code Diagnosis Note [id number] [facility] (Adult Med) [address] [place] [address] 01/23/2014 13:59:59 01/23/2014 15:00:09 Essential hypertension 03009698 continue same Mixed anxi ety and depressive disorder 090789705 Fair control due to noncomplia nt with med Restart Sertraline Diabetes mellitus 79156996 As per endo Will give Lantus and Novolog sample due to financial problem to buy meds Chronic [facility] [id number] [facility] [address] [place] [address] 04/24/2014 13:51:59 04/24/2014 15:34:43 Anemia 837903176 due to heavy bleeding-p t to see Bank Representative ER records showed Hb-8.6 check iron panel ok to take Ferrous sulfate daily Liver func tion tests outside reference range 150474713 ALT -53, AST-104--- possibly fatty liver( pt denied alcohol use ) consider us liver in future Acute sinusitis 96792615 [id number] Crow Diane MD [place] 14 IM [address] [facility] [address] [place] [id number] 06/25/2023 11:25:39 06/30/2023 15:15:30 Asthma 692634137 J45.[address] Abdul at [place] [facility] ential hypertension 5426166 I10 on amlodipine and clonidine and nadolol Gastroesop hageal reflux disease 594298163 K21.9 Type 2 tg betes mellitus 74873331 E11.9 pt will be followed by Dr. Narvaez on insulin, metformin, and trulicity Rheumatoid arthritis 698 98287 M06.9 on hydroxychl oroquine, ibuprofen, and norco and prednisone prn; pt hopes that norco rx can be assumed here Vitamin D deficiency 347 41550 E55.9 Mixed anxi ety and depressive disorder 041191726 F41.8 Dyslipidemia 018176662 E 78.5 Insomnia 740096122 G47.0 0 Under care of roll or tape edge machine operator 975376684 Z76.89 Muscle tension pain 2790 09508 M79.10 on soma Screening for malignant neoplasm of colon 097473353 Z12.11 pt had a recent cologuard done--it was negative Screening mammography 24 696080 Z12.31 [facility] Concerns Section Related Observation LastModified by Organization Detai ls LastModified Time None Recorded Concern Status LastModified by Organization Details LastModified Time None Recorded Advance Directives Directive N: Payers Encounter Date Sequence Insurance Name Policy Number Policy Langston Covered Member ID Langston Member ID Guarantor Name 01/23/2014 SLIDING FEE SCHEDULE - DISCOUNT Regina Howell 04/24/2014 1 [place] [id number] Regina Hodges [id number] Regina Howell 06/25/2023 1 [facility] - DOS ON OR AFTER 20 (MEDICAID REPLACEMENT - HMO) Regina Espinalgiorgio [id number] Regina Howell Notes Date Note Type Note Provider Name and Address Organization Details Recorded Time 06/25/2023 text/html Pt presents in order to become established. Previous PCP has moved out of the area. No acute issues today. Crow Diane MD Attn: [employer]ing,[address] [place], [address], [facility] 06/30/2023 07:23:11 OBGyn Episode Ob Episode Information Episode Created Date Number of Fetuses Patient Bloodtype Patient rh Status Prepregnancy Weight lbs Domestic Partner Domestic Partner Phone Father Name Automatic I Threading Machine Feeder Status 06/25/19 24 1 CLOSED Fetus Data First Name Last Name Admitted to NICU Weight (g) Sex Living Outcome Pediatric Complications Fetus ID Race Codes Race Delivery Type [id number] Benji Calculation Initial Benji Date Initial Exam Date Initial Exam Provider Initial Ultrasound Date Last Menstrual Period Date Ultra Sound Weeks Gestation 0 Eighteen To Twenty Week Benji Update Ultra Sound Date Fundal Height At Umbil Quickening Date Ultra Sound Latest Weeks Gestation Final Benji Confirmed By Final Benji Confirmed Date Final Benji Date Ultra Sound Latest Days Gestation 0 0 Menstrual History Last Menstrual Date Menses Monthly On Bcp Conception Prior Menses Frequency Hcg Plus Date Menarche Onset Age Delivery Information Delivery Date Delivery Type Labor Anesthesia Weeks Gestation Incision Type Labor Labor Length Hrs Delivered By Post Complications Tubal Sterilization Discharge Date Comments 8 Discharge Information Feeding Method Contraceptive Method Maternal HG B and HCT Levels Ob Episode Information Episode Created Date Number of Fetuses Patient Bloodtype Patient rh Status Prepregnancy Weight lbs Domestic Partner Domestic Partner Phone Father Name Automatic I Threading Machine Feeder Status 06/25/19 24 1 CLOSED Fetus Data First Name Last Name Admitted to NICU Weight (g) Sex Living Outcome Pediatric Complications Fetus ID Race Codes Race Delivery Type [id number] Benji Calculation Initial Benji Date Initial Exam Date Initial Exam Provider Initial Ultrasound Date Last Menstrual Period Date Ultra Sound Weeks Gestation 0 Eighteen To Twenty Week Benji Update Ultra Sound Date Fundal Height At Umbil Quickening Date Ultra Sound Latest Weeks Gestation Final Benji Confirmed By Final Benji Confirmed Date Final Benji Date Ultra Sound Latest Days Gestation 0 0 Menstrual History Last Menstrual Date Menses Monthly On Bcp Conception Prior Menses Frequency Hcg Plus Date Menarche Onset Age Delivery Information Delivery Date Delivery Type Labor Anesthesia Weeks Gestation Incision Type Labor Labor Length Hrs Delivered By Post Complications Tubal Sterilization Discharge Date Comments 199 0 Discharge Information Feeding Method Contraceptive Method Maternal HG B and HCT Levels
--- OUTSIDE RECORDS SUMMARY | 2024-05-26 12:22 | XMS_ITS | Clinical Summary ---
Author Organization [facility] Address [address] [place] [id number] Care Team Providers Care Installations Inspector Name Role Phone Carlos Wallace NP Primary Care Provider [phone] Allergies Active Allergy Reactions Criticality Noted Date Comments Atenolol Other (See comments) Reaction: PVC'S, Medications albuterol 2.5 mg /3 mL (0.083 %) nebulizer solution A ctive amLODIPine (NORVASC) 10 mg tablet amlodipine 10 mg tablet Active carisoprodoL (SOMA) 350 mg tablet carisoprodol 350 mg tablet TAKE 1 TABLET BY MOUTH THREE TIMES DAILY NEEDED Active cloNIDine (CATAPRES) 0.1 mg tablet clonidine HCl 0.1 mg tablet TAKE 1 TABLET BY MOUTH THREE TIMES DAILY NEEDED Active Farxiga 10 mg tablet 06/02/19 21 Active ergocalciferol (VITAMIN D) 50,000 unit capsule TAKE 1 CAPSULE BY MOUTH WEEKLY 03/30/19 21 Active escitalopram (LEXAPRO) 20 mg tablet escitalopram 20 mg tablet TAKE 1 TABLET BY MOUTH EVERY DAY Active fenofibrate nanocrystallized (TRICOR) 145 mg tablet Take 145 mg by mouth every morning 04/25/19 21 Active ferrous sulfate 325 mg (65 mg of elemental iron) tablet Active glimepiride (AMARYL) 2 mg tablet glimepiride 2 mg tablet TAKE 2 TABLETS BY MOUTH TWICE DAILY BEFORE MEAL(S) Active glyBURIDE (DIABETA) 2.5 mg tablet glyburide 2.5 mg tablet Active HYDROcodone-acetami nophen (NORCO) 5-325 mg per tablet hydrocodone 5 mg-acetaminophen 325 mg tablet TAKE 1 TABLET BY MOUTH THREE TIMES DAILY NEEDED Active HYDROcodone-acetami nophen (NORCO) 5-325 mg per tablet Take 1 tablet by mouth 3 (three) times a day as needed 04/21/19 21 Active ibuprofen (ADVIL,MOTRIN) 800 mg tablet Take 1 tablet (800 mg total) by mouth 3 (three) times a day 05/27/19 21 Active liraglutide (Victoza 2-Doroteo) 0.6 mg/0.1 mL (18 mg/3 mL) injection Victoza 3-Doroteo 0.6 mg/0.1 mL (18 mg/3 mL) subcutaneous pen injector Active lovastatin (MEVACOR) 20 mg tablet Take 1 tablet (20 mg total) by mouth nightly 02/25/19 21 Active lisinopril-hydroCHL OROthiazide (ZESTORETIC) 20-12.5 mg per tablet 03/16/19 21 Active metFORMIN XR (GLUCOPHAGE XR) 500 mg 24 hr tablet metformin ER 500 mg tablet,extended release 24 hr TAKE 1 TABLET BY MOUTH TWICE DAILY BEFORE MEALS Active Dulera 100-5 mcg/actuation inhaler INHALE 2 PUFFS BY MOUTH TWICE DAILY DIRECTED 05/25/19 21 Active nadoloL (CORGARD) 80 mg tablet nadolol 80 mg tablet TAKE 1 TABLET BY MOUTH THREE TIMES DAILY. INCREASE DOSE Active pantoprazole DR (PROTONIX) 40 mg EC tablet pantoprazole 40 mg tablet,delayed release TAKE 1 TABLET BY MOUTH EVERY DAY Active pregabalin (LYRICA) 150 mg capsule pregabalin 150 mg capsule Active rosuvastatin (CRESTOR) 40 mg tablet rosuvastatin 40 mg tablet TAKE 1 TABLET BY MOUTH 2 TIMES A WEEK AT BEDTIME Active semaglutide (Ozempic) 0.25 mg or 0.5 mg(2 mg/1.5 mL) pen injector Ozempic 0.25 mg or 0.5 mg (2 mg/1.5 mL) subcutaneous pen injector INJECT 0.5MG SUBCUTANEOUSLY ONCE WEEKLY IN THE MORNING Active sertraline (ZOLOFT) 50 mg tablet sertraline 50 mg tablet Active traMADoL (ULTRAM) 50 mg tablet every 6 hours Act basilio traZODone (DESYREL) 50 mg tablet trazodone 50 mg tablet Active insulin lispro (HumaLOG, ADMELOG) 100 unit/mL pen for injection 11/14/19 22 Active famotidine (PEPCID) 20 mg tablet Take 1 tablet (20 mg total) by mouth 2 (two) times a day as needed for heartburn Active fluconazole (DIFLUCAN) 150 mg tablet TAKE 1 TABLET BY MOUTH EVERY WEEK FOR 7 DAYS DIRECTED Active fluticasone propionate (FLONASE) 50 mcg/actuation nasal spray 05/15/19 24 Active Xiidra 5 % dropperette 0.1 each (1 drop total) 2 (two) times a day 05/15/19 24 Active magnesium oxide (MAG-OX) 400 mg (241.3 mg elemental magnesium) tablet 05/16/19 Active potassium chloride 10 mEq/100 mL Infuse 100 mL (10 mEq total) into a venous catheter Active Active Problems Problem Noted Date Diagnosed Date Abnormal liver function tests 05/18/2023 Dysmenorrhea 05/18/2023 Hyperlipidemia 05/18/2023 Injury of coccyx 05/18/2023 Iron deficiency anemia 05/18/2023 Menorrhagia 05/18/2023 Premenstrual tension syndrome 05/18/2023 Sciatica 05/18/2023 Tachycardia 05/18/2023 Upper respiratory infection 05/18/2023 Vitamin D deficiency 05/18/2023 Essential (primary) hypertension 05/13/2023 Sleep apnea 05/13/2023 Cellulitis of lower limb 04/30/2023 Pneumonia 04/23/2023 Magnetic resonance imaging of brain abnormal Multiple joint pain 02/24/2023 Iron deficiency 01/27/2023 Headache 01/27/2023 Dry eyes 01/05/2023 Edema of lower extremity 12/16/2022 Herpes labialis 12/09/2022 Chronic hypokalemia 09/09/2022 Cobalamin deficiency 07/17/2022 Postmenopausal bleeding 07/17/2022 Menopausal symptom 07/03/2022 Obesity 07/03/2022 Type 2 diabetes mellitus with hyperglycemia 06/16 Chronic back pain 06/03/2022 Acute sinusitis 05/19/2022 Metatarsalgia 12/13/2020 Rheumatoid arthritis 10/12/2020 Myalgia 06/05/2020 Bilateral leg pain 06/05/2020 Fatigue 05/23/2020 Gastroesophageal reflux disease without esophagi tis 05/23/2020 Dyspnea on exertion 04/17/2020 Anemia 12/12/2019 Chest pain 12/12/2019 Type 2 diabetes mellitus 07/02/2013 Overview (05/21/2016): DMII WO CMP UNCNTRLD Immunizations Immunization Administration Dates Next Due DTP 11/16/2006 Medical History Medical History Date Comments Hyperlipidemia Hyperlipidemia Type 2 diabetes mellitus (HCC) D iabetes type 2 Hypertension Hypertension Asthma Asthma Atrial arrhythmia Cardiac arryth corky Diabetes mellitus (HCC) Diabetes Anemia Anemia Family History Medical History Relation Name Comments Other Father 2 Alive and well; Other Mother 2 Alive and well; Other Sister 2 Alive and well; Relation Name Status Comments Father 1 Alive Father 2 Mother 1 Alive Mother 2 Sister 1 Alive Sister 2 Social History Tobacco Use Types Packs/Day Years Used Date Smoking Tobacco: Former Cigarettes Smokeless Tobacco: Never Tobacco Cessation:Counseling Given: Not Answered Alcohol Use Standard Drinks/Week Comments No 0 (1 standard drink = 0.6 oz pur e alcohol) Comments Unknown Sex and Gender Information Value Date Recorded Sex Assigned at Not on file Legal Sex Female 1:13 AM SURGICAL SERVICES DIRECTOR Gender Identity Not on file Sexual Orientation Not on file Obstetrics History Last Filed Vital Signs Vital Sign Reading Time Taken Comments Blood Pressure 122/70 05/18/2023 9:49 AM CDT Pulse 85 05/18/2023 9:49 AM CDT Temperature 36.4 C (97.5 F) 05/18/2023 9:49 AM CDT Respiratory Rate 18 05/18/2023 9:49 AM CDT Oxygen Saturation 99% 05/18/2023 9:49 AM CDT Inhaled Oxygen Concentration - - Weight 99.8 kg (220 lb) 05/18/2023 9:49 AM CDT Height 165.1 cm (5' 5 ) 05/18/2023 9:49 AM CDT Body Mass Index 36.61 05/18/2023 9:49 AM CDT Plan of Treatment Health Maintenance Due Date Last Done Comments Albumin Creatinine Ratio, Urine 1969 Breast Cancer Screening-Mammogram 1969 Cervical Cancer Screening 1969 Colon Cancer Screening-Colonoscopy 1969 Depression Screening 1969 Hemoglobin A1C 1969 Hepatitis C Screening 1969 eGFR 1969 Dilated Eye Exam 1969 Foot Exam 1969 Hepatitis B Screening 07/09/1987 Regular Well Visit/Exam 18-64 07/09/1987 Pneumococcal vaccine <65 (1 of 2 - PCV) 1988 Zoster Vaccine (2 of 2) 01/18/2023 11/23/2022, 08/03 Lipid Panel 01/13/2024 01/12/2023 Influenza Vaccine (Season Ended) 2024 11/23/2022, 10/19/2020, 10/18/2019, Additional history exists DTaP/Tdap/Td Vaccine (3 - Td or Tdap) 10/17/2029 10/18/2019, 11/16/2006 Procedures Procedure Name Priority Date/Time Associated Diagnosis Comments LIPID PANEL Routine 01/12/2023 7:51 AM SURGICAL SERVICES DIRECTOR from Last 3 Months or Most Recently Relevant to Health Maintenance Results * (ABNORMAL) Lipid panel (01/12/2023 7:51 AM SURGICAL SERVICES DIRECTOR) SCRIBED Cholesterol, Total 122 0 - 200 EXTERNAL LAB SCRIBED HDL 41 40 - 100 EXTERNAL LAB SCRIBED LDL 51 0 - 100 EXTERNAL LAB SCRIBED Triglycerides 253(A) 0 - 150 EXTERNAL LAB Blood 01/12/2023 7:51 AM SURGICAL SERVICES DIRECTOR us Historical Provider LAB BLOOD ORDERABLES Aubree l Result EXTERNAL LAB from Last 3 Months or Most Recently Relevant to Health Maintenance Insurance [place] [employer] [facility] Care Teams Installations Inspector Relationship Specialty Start Date End Date Carlos Wallace DOULA PCP - General 06/04/20
--- OUTSIDE RECORDS SUMMARY | 2024-05-26 12:23 | XMS_ITS | Referral Summary ---
Author Organization [facility] Address [address] [place] [id number] Care Team Providers Care Jewelry Drilling Machine Operator Name Role Phone Carlos Wallace NP Primary Care Provider [phone] Allergies Active Allergy Reactions Criticality Noted Date [...] Immunization Administration Dates Next Due DTP 11/16/2006 Social History Tobacco Use Types Packs/Day Years Used Date Smoking Tobacco: Former Cigarettes Smokeless Tobacco: Never Tobacco Cessation:Counseling Given: Not Answered Alcohol Use Standard Drinks/Week Comments No 0 (1 standard drink = 0.6 oz pur e alcohol) Comments Unknown Sex and Gender Information Value Date Recorded Sex Assigned at Not on file Legal Sex Female 1:13 AM DATABASE SOFTWARE TECHNICIAN Gender Identity Not on file Sexual Orientation Not on file Last Filed Vital Signs Vital Sign Reading [...] 05/18/2023 9:49 AM CDT Plan of Treatment Not on file Procedures Procedure Name Priority Date/Time Associated Diagnosis Comments LIPID PANEL Routine 01/12/2023 7:51 AM DATABASE SOFTWARE TECHNICIAN from Last 3 Months or Most Recently Relevant to Health Maintenance Results * (ABNORMAL) Lipid panel (01/12/2023 7:51 AM DATABASE SOFTWARE TECHNICIAN) SCRIBED Cholesterol, Total 122 0 - 200 EXTERNAL LAB SCRIBED HDL 41 40 - 100 EXTERNAL LAB SCRIBED LDL 51 0 - 100 EXTERNAL LAB SCRIBED Triglycerides 253(A) 0 - 150 EXTERNAL LAB Blood 01/12/2023 7:51 AM DATABASE SOFTWARE TECHNICIAN us Historical Provider LAB BLOOD ORDERABLES Aubree l Result EXTERNAL LAB from Last 3 Months or Most Recently Relevant to Health Maintenance Insurance CHOICE PRF PPO IN [facility] Care Teams Jewelry Drilling Machine Operator Relationship Specialty Start Date End Date Carlos Wallace NP PCP - General 06/04/20
--- OUTSIDE RECORDS SUMMARY | 2024-05-26 12:23 | XMS_ITS | CONTINUITY OF CARE DOCUMENT ---
Author Name lauren aguilar Address Unknown Organization [facility] Address [address] [place] [address] [address] [place] [address] Phone [phone] Care Team Providers Care Client Associate Name Role Phone Rizwan DAVIS, Cary Unavailable WEIR AXMINSTER WEAVER, DELORA Unavailable [phone] WEIR AXMINSTER WEAVER, DELORA Unavailable [phone] PROBLEMS Condition Status Date Provider Notes Chest pain active Saul Lambros Hypertriglyceridemia active Saul Lambro s HTN essential active Saul Lambros Obesity active Saul Lambros Diabetes mellitus active Saul Lambros Shortness of breath (SOB) active Saul L ambros Anemia active Saul Lambros Tachycardia active Saul Lambros ENCOUNTERS Date Type Provider Location Encounter Diag nosis - In-person encounter Office Visit Cary Astorga MD [facility] - In-person encounter Office Visit Cary Astorga MD [facility] Chest painTachycardiaAnemiaShortness of breath (SOB)Diabetes mellitusObesityHTN essentialHypertriglyceridemia VITAL SIGNS Date Observation Value Provider Body Mass Index (Ratio) 37.74 kg/m2 Trac y Lively blood pressure, cuff size large Ke rri Gruenenfelder blood pressure, diastolic 70 mm[Hg] Ke rri Jayyuenenfelder blood pressure, systolic 130 mm[Hg] Andrey Ivey oxygen saturation, oximetry 97 % Maryana Ivey respiratory rate E&M 16 /min Maryana guzmánderrick pulse rate 97 /min Maryana aSlgado lder weight E&M 241 [lb_av] Maryana Salgado lder height E&M 67 [in_i] Maryana Salgado lder ALLERGIES Allergy Name Onset Date Reaction Criticality Status ATENOLOL Low Criticality active HISTORY OF MEDICATION USE Medication Status Instructions Dates Provider Indications Com ments nadolol 80 mg tablet active TAKE 1 TABLET BY MOUTH THREE TIMES DAILY. INCREASE DOSE 03/26 Alysia Kurtz ergocalciferol (vitamin D2) 1,250 mcg (50,000 unit) capsule active Take 1 capsule by mouth once a week 03/03 Maryana Ivey #13, 90 days supply, Prescribed by NOEMI WEIR, Filled 10/08/2019 FERRALET 90 90-1 MG TABS active Take 1 tablet by mouth twice a day 10/10 Maryana Ivey #15, 8 days supply, Prescribed by NOEMI WEIR, Filled 11/04/2019 carisoprodol 350 mg tablet active Take 1 tablet by mouth three times a day as needed 10/25 Maryana Ivey #90, 30 days supply, Prescribed by NOEMI WEIR, Filled 11/04/2019 metformin 500 mg tablet extended release 24 hr active Take 1 tablet by mouth twice a day 11/07 Maryana Ivey #180, 90 days supply, Prescribed by HERNANDO MENDEZ, Filled 11/08/2019 lovastatin 20 mg tablet active Take 1 tablet by mouth every night 11/08 Maryana Ivey #90, 90 days supply, Prescribed by NOEMI WEIR, Filled 11/09/2019 Farxiga 10 mg tablet active Take 1 tablet by mouth every morning 08/22 Maryana Ivey #30, 30 days supply, Prescribed by HERNANDO MENDEZ, Filled 11/09/2019 Novolog Flexpen U-100 Insulin 100 unit/mL (3 mL) insulin pen active Inject 40 unit subcutaneously three times a day 08/21 Maryana Corbinelder #30, 25 days supply, Prescribed by REYMUNDO MENDOZA, Filled 11/14/2019 furosemide 20 mg tablet active Take 1 tablet by mouth once a day 10/17 Maryana Minorer #30, 30 days supply, Prescribed by NOEMI WEIR, Filled 11/16/2019 nadolol 80 mg tablet completed Take 1 tablet by mouth three times a day 04/18 - 03/26 Hadley Mendezzai #60, 30 days supply, Prescribed by NOEMI WEIR, Filled 11/18/2019 glimepiride 2 mg tablet active Take 2 tablet by mouth twice a day 11/07 Maryana Corbinelder #360, 90 days supply, Prescribed by HERNANDO MENDEZ, Filled 11/18/2019 escitalopram oxalate 20 mg tablet active Take 1 tablet by mouth once a day 05/23 Maryana Cosmonenfelder #90, 90 days supply, Prescribed by NOEMI WEIR, Filled 11/21/2019 TRAZODONE HCL 50 MG TABS active Take 1 tablet by mouth once a day 11/01 Maryana Corbinelder #30, 30 days supply, Prescribed by NOEMI WEIR, Filled 11/29/2019 pregabalin 150 mg capsule active Take 1 capsule by mouth three times a day Maryana Wilburnnenfelder #90, 30 days supply, Prescribed by NOEMI WEIR, Filled 11/29/2019 tranexamic acid 650 mg tablet active Take 2 tablet by mouth three times a day Maryana Wilburnnenfelder #30, 5 days supply, Prescribed by DAVIN ROMERO, Filled 12/01/2019 ibuprofen 800 mg tablet active Take 1 tablet by mouth three times a day 03/21 Maryana Vaughannfelder #90, 30 days supply, Prescribed by NOEMI WEIR, Filled 12/05/2019 FeroSul 325 mg (65 mg iron) tablet active Take 1 tablet by mouth once a day 10/10 Maryana Ivey #30, 30 days supply, Prescribed by NOEMI WEIR, Filled 12/06/2019 Victoza 2-Doroteo 0.6 mg/0.1 mL (18 mg/3 mL) pen injector active ADM 0.6 MG SC QD FOR 1 WEEK. INCREASE TO 1.2 MG SC QD WITH LARGEST MEAL 11/07 Maryana Ivey #6, 30 days supply, Prescribed by HERNANDO MENDEZ, Filled 12/09/2019 pantoprazole 20 mg tablet,delayed release (DR/EC) active Take 1 tablet by mouth once a day 03/03 Maryana Ivey #90, 90 days supply, Prescribed by NOEMI WEIR, Filled 12/09/2019 SOCIAL HISTORY Date Observation Value Provider cigarette use yes Saul moss smoking status Former smoker Saul dickerson social history E&M S moking History: Marisel osman is a former smoker. Saul Hernandez social history reviewed E&M revi ewed - no changes required Saul Hernandez number of grandchildren Cary Astorga MD N galdino Hernandez number of years as a smoker 20 a Maryana Loni smoking history, tot al pack/day 1 ppd Maryana Hopenarcisarobertoderrick smoking, year quit 2003 Maryana quinn INSURANCE PROVIDERS Payer name Policy type / Coverage type [place] red democrat ID [facility] [id number] ADVANCE DIRECTIVES Name Date DISCUSSED - NO DECISION MADE TREATMENT PLAN Date Name Performer [employer] [facility] at [place], F/up with me Dec 8 at 345p Cary Astorga MD [employer] [facility] [place], F/up with me Dec 8 at 345p Cary Astorga MD [employer] [facility] at [place], F/up with me Dec 8 at 345p Cary Astorga MD [employer] [facility] at [place], F/up with me Dec 8 at 345p Cary Astorag MD [employer] [facility] at [place], F/up with me Jan 8 at 345p Cary Astorga MD [employer] [facility] at [place], F/up with me Dec 8 at 345p Cary Astorga MD Cardiology New Patient Saul Lambros Cardiology New Patient Saul Lambros Cardiology New Patie nt : B P today: 130/70 Saul Lambros Cardiology New Patient Saul Lambros Cardiology New Patient Saul Lambros Cardiology New Patient Saul Lambros Cardiology New Patient Saul Rowellros Date Name Holter Monitor 48 hr Sleep Study Home Complete Echo HISTORY OF PROCEDURES Procedure Date Procedure Name Provider Procedure Notes S tatus EKG Cary Astorga MD completed
== END 2024-05-26 11:32 | disposition home or self-care (01) ==
PROVIDERS: PCP Family Medicine; Visit Provider Family Medicine
DX: R60.9 Edema, unspecified (principal); M79.604 Pain in right leg; M25.551 Pain in right hip
CPT/HCPCS: 73564; 73590

== ENCOUNTER 2024-06-12 18:36 | Inpatient (IN) | payer OTHER, SELFPAY ==
[2024-06-12] VITALS (8 sets, daily range): BP systolic 128–152; BP diastolic 68–86; PULSE 68–70; RESP 14–20; TEMP 36.4; O2SAT 98–99
--- NOTE | ~2024-06-12 | XR_ITS ---
XR chest 2V Ordering provider: Steffen Nichols MD History: 53 years Female with . cp . Comparison: None. FINDINGS: MEDIASTINUM: The cardiac silhouette is not enlarged. LUNGS: No infiltrates, effusions or pneumothorax. OTHER: No free air under the diaphragm. Mild dextroscoliosis. IMPRESSION: No acute cardiopulmonary pathology. Reviewed, dictated and finalized at location A.
--- OUTSIDE RECORDS SUMMARY | 2024-06-12 18:39 | XMS_ITS | Data Portability ---
Author Organization [place] [employer], Main Office Address [address] [place] [address] Assessment Encounter Date Assessment Date Assessment LastModified by Organization Details LastModified Time 04/24/2023 04/24/2023 I have reconciled the patient's medications post their discharge from inpatient facility. [email or web address] Not available 04/24/2023 08:55:09 Plan of Treatment Reminders Order Date Submit Date Provider Last Modified By Organization Details Last Modified Time Details Appointments New Patient 30 2024 01:30P Wendi Mckenna NP Not available Not available Not available Lab None recorded. Referral infectiou s disease specialis t referral - Please call patient to schedule an appointme nt. 2023 024 [email or web address] Jas Lal, [facility] , [address] [address], [place], [address], 06/01/2023 08:54:11 Procedures None recorded. Surgeries None recorded. Imaging None recorded. Medication Orders valacyclo vir 1 gram tablet 2023 024 [place] [employer] #[id number], [address], [id number], 06/16/2023 11:38:31 rosuvasta tin 40 mg tablet 2023 024 [place] [employer] #[id number], [address], [id number], 06/16/2023 11:38:33 ibuprofen 800 mg tablet 2023 024 [facility] #65838, [address], [id number], 06/16/2023 11:38:24 trazodone 50 mg tablet 2023 024 [facility] #20827, [address], [place], [place], [id number], 06/16/2023 11:38:29 escitalop bakari 20 mg tablet 2023 024 [facility] #33853, [address] [facility] [address] [facility], [place], [place], [id number], 06/16/2023 11:38:31 furosemid e 40 mg tablet 2023 024 [facility] #64549, [address] [facility] [address] [place] [address], [id number], 06/16/2023 11:38:30 Vitamin D2 1,250 mcg (50,000 unit) capsule 2023 024 [facility] #51047, [address] [facility] [address] [place] [address], [id number], 06/16/2023 11:38:23 carisopro dol 350 mg tablet 2023 024 [facility] #46691, [address] [facility] [address] [place] [address], [id number], 06/16/2023 11:38:48 Trulicity 3 mg/0.5 mL subcutane ous pen injector 2023 024 [facility] #63076, [address] [facility] [address] [place] [address], [id number], 06/16/2023 11:38:29 metformin ER 500 mg tablet,ex tended release 24 hr 2023 024 [facility] #26536, [address] [facility] [address] [place] [address], [id number], 06/16/2023 11:38:32 famotidin e 20 mg tablet 2023 024 [facility] #45562, [address] [facility], [place], [place], [id number], 06/16/2023 11:38:22 clonidine HCl 0.1 mg tablet 2023 024 [facility] #22629, [address] [facility], [place], [place], [id number], 06/16/2023 11:38:23 amlodipin e 10 mg tablet 2023 024 [facility] #97987, [address] [facility], [place], [place], [phone], 06/16/2023 11:38:20 potassium chloride ER 10 mEq tablet,ex tended release 2023 024 [facility] #97038, [address] [place] [address], [id number], 06/16/2023 11:38:49 nadolol 80 mg tablet 2023 024 [facility] #22418, [address] [place] [address], [id number], 06/16/2023 11:38:32 fluticaso ne propionat e 50 mcg/actua tion nasal spray,[facility] 2023 024 [facility] #22389, [address] [facility], [place], [place], [phone], 06/16/2023 11:38:21 magnesium oxide 400 mg (241.3 mg magnesium ) tablet 2023 024 [facility] #96727, [address] [facility], [place], [place], [id number], 06/16/2023 11:38:22 pregabali n 200 mg capsule 2023 [facility] #96858, [address], [place], [place], [id number], 06/16/2023 11:38:45 hydrocodo ne 10 mg-acetam inophen 325 mg tablet 2023 024 [facility] #24052, [address], [place], [place], [id number], 06/16/2023 11:38:49 prednison e 20 mg tablet 2023 [facility] #90857, [address], [place], [place], [id number], 06/16/2023 11:38:22 sulfameth oxazole 800 mg-trimet hoprim 160 mg tablet [address] [facility] #90424, [address], [place], [place], [id number], 06/16/2023 11:27:10 cephalexi n 500 mg capsule [address] [facility] #91057, [address], [place], [place], [id number], 06/16/2023 11:27:15 sulfameth oxazole 800 mg-trimet hoprim 160 mg tablet [address] [facility] #53385, [address], [place], [place], [id number], 06/16/2023 11:27:10 cephalexi n 500 mg capsule [address] [facility] #07152, [address], [place], [place], [id number], 06/16/2023 11:27:15 fluconazo le 150 mg tablet 2023 024 [facility] #53036, [address] [place] [address], [id number], 05/25/2023 08:39:01 doxycycli ne hyclate 100 mg capsule 2023 024 [facility] #94402, [address] [facility], [place], [place], [id number], 04/30/2023 17:41:14 Patient TargetsNo targets recorded. Patient Instructions Encounter Date Encounter Id Patient Instructions Last Modified By Organization Details Last Modified Time 04/24/2023 [id number] Thank you for your visit to our [...] at home, please call us to discuss. [email or web address] Not available 04/24/2023 08:55:09 Homebound Status : {{Patient has an inability to leave the home without a taxing effort and assistance from another person Does not meet homebound status}} Required Home Health Services: {{none fdc, physical therapy, occupational therapy fdc, physical therapy fdc}} Durable Medical Equipment needed: {{cane walker wal ker with seat manual wheelchair bedsid e commode oxygen}} Billing Guidelines CPT code 91136- Transitional Care Management services with moderate medical decision complexity (wqgn-jj-lauw visit within 14 days of discharge). CPT code 21027- Transitional Care Management services with high medical decision complexity (jwao-au-npuj visit within 7 days of discharge). [email or web address] Not available 04/24/2023 08:55:09 Reason for Referral [...] view No observ ation record ed. [address], [place], [address], 04/16/2023 11:48:51 04/06/19 24 04/06/2023 US, doppl er, venou s No observ ation record ed. [address], [place], [address], 04/16/2023 11:55:54 04/06/19 24 04/06/2023 XR, foot No observ ation record ed. [address] [facility], [place], [address], 04/16/2023 11:57:17 04/08/19 24 04/08/2023 MRI, lower extre mity, w/ contr ast No observ ation record ed. [address] [facility], [place], [address], 06/28/2023 13:14:26 04/10/19 24 04/10/2023 CT, chest , w/ contr ast No observ ation record ed. [address] [facility], [place], [address], 04/16/2023 11:53:56 04/12/19 24 04/12/2023 XR, chest , 1 view No observ ation record ed. [address], [place], [address], 04/16/2023 11:49:54 04/14/19 24 04/13/2023 US, echoc ardio gram No observ ation record ed. [id number], [place], [address], 04/16/2023 11:56:39 Result Notes None recorded. Problems Name Problem SNOMED Code Status Onset Date Resolution Date Notes Provider Name and Address Organization Details Recorded Time Metatarsal tara 68408659 Active 2020 Not Available [facility] 3 00:45:56 Otalgia 53843085 Active Not Available [facility] 3 00:45:56 Liver function tests outside reference range 656019028 Active Not Available [facility] 3 00:45:56 Asthma 156448825 Active Not Available [facility] 3 00:45:57 Sciatica 20587841 Active Not Available [facility] 3 00:45:57 Fluid level behind tympanic membrane Active Not Available [facility] 3 00:45:57 Gastroesop hageal reflux disease without esophagiti s 192917061 Active 2020 Not Available [facility] 3 00:45:57 Dysmenorrh ea 933819976 Active Not Available [facility] 3 00:45:57 Anemia 457231462 Active Not Available [facility] 3 00:45:57 Injury of coccyx 987011785 Active Not Available [facility] 3 00:45:57 Knee pain Active Not Available [facility] 3 00:45:57 Type 2 diabetes mellitus without complicati on 911705220 Active 2020 [facility] 3 00:45:57 Tachycardi a 7487998 Active Not Available [facility] 3 00:45:57 Vitamin D deficiency 67040371 Active Not Available [facility] 3 00:45:58 Sinusitis 98990823 Active Not Available [facility] 3 00:45:58 Menorrhagi a 748642931 Active Not Available [facility] 3 00:45:58 Uncontroll ed type 2 diabetes mellitus 184871515 Active Not Available [facility] 3 00:45:58 Well controlled type 2 diabetes mellitus 650988160 Active 2021 Not Available [facility] 3 00:45:58 Upper respirator y infection 67565838 Active Not Available [facility] 3 00:45:58 Hyperlipid emia 95661936 Active Not Available [facility] 3 00:45:59 Essential hypertensi on 11359643 Active Not Available [facility] 3 00:45:59 Dyspnea on exertion 89634452 Active 2020 Not Available [facility] 3 00:45:59 Muscle pain 36821979 Active 2020 Not Available [facility] 3 00:45:59 Rheumatoid arthritis 34143830 Active 2020 Not Available [facility] 3 00:45:59 Diabetes mellitus 56609130 Active Not Available [facility] 3 00:45:59 Sleep apnea 76136706 Active 2020 Not Available [facility] 3 00:46:00 Chronic pain 19039464 Active Not Available [facility] 3 00:46:00 Premenstru al tension syndrome 31428352 Active Not Available [facility] 3 00:46:00 Fatigue 18944799 Active 2020 Not Available [facility] 3 00:46:00 Iron deficiency anemia 32918905 Active Not Available [facility] 3 00:46:00 Deliveries by 310253431 Active 2022 Jyoti Hahn MD [address], [address], [place], [address] , [facility] 3 14:01:21 Gestationa l hypertensi on Active 2022 Jyoti Hahn MD [address], [place], [address] , [facility] 3 14:01:21 Type 2 diabetes mellitus 23313355 Active 2022 MD Nixon Powell, [address], [place], [address] , [place] [facility] 3 14:01:21 Acute sinusitis 89271005 Active 2022 Jyoti Hahn MD [address], [address], [place], [address] , [place] [facility] 3 17:02:46 Chronic back pain 865824530 Active 2022 JESSICA Garcia [address], [address], [place], [address] , [place] [facility] 3 18:00:40 Acid reflux 162979219 Active 2022 JESSICA Garcia [address], [address], [place], [address] , [place] [facility] 3 10:13:35 Hyperglyce corky due to type 2 diabetes mellitus 8289782972217 09 Active 2022 JESSICA Garcia [address], [address], [place], [address] , [place] [facility] 3 12:09:33 Menopausal symptom 88493070 Active 2022 JESSICA Garcia [address], [address], [place], [address] , [place] [facility] 3 12:11:40 Obesity 635956951 Active 2022 JESSICA Garcia [address], [address], [place], [address] , [place] [facility] 3 12:22:47 Cobalamin deficiency 565821930 Active 2022 JESSICA Garcia [address], [address], [place], [address] , [place] [facility] 3 10:30:41 Postmenopa usal bleeding 62609794 Active 2022 JESSICA Garcia [address], [address], [place], [address] , [place] [facility] 3 10:42:36 Chronic hypokalemi a 62235836 Active 2022 JESSICA Garcia [address], [address], [place], [address] , [place] [facility] 3 13:58:39 Hypokalemi a 10095342 Active 2022 Jyoti Hahn MD [address], [address], [place], [address] , [place] [facility] 3 08:37:56 Pain of ear 229257774 Active 2022 Jyoti Hahn MD [address], [address], [place], [address] , [place] [facility] 3 14:23:43 Chronic obstructiv e pulmonary disease 21442811 Active 2022 JESSICA Garcia [address], [address], [place], [address] , [place] [facility] 3 13:56:38 Herpes labialis 2012412 Active 2022 JESSICA Garcia [address], [address], [place], [address] , [place] [facility] 3 17:23:57 Chronic sinusitis 40642912 Active 2022 JESSICA Garcia [address], [address], [place], [address] , [place] [facility] 3 10:10:11 Edema of lower extremity 962197275 Active 2022 JESSICA Garcia [address], [address], [place], [address] , [place] [facility] 3 10:12:44 Dry eyes 745783776 Active 2022 Jyoti Hahn MD [address], [address], [place], [address] , [place] [facility] 3 09:18:18 Dry eyes 074924630 Active 2022 Jyoti Hahn MD [address], [place], [address] , [place] [facility] 3 09:18:42 Headache 06722831 Active 2022 Jyoti Hahn MD [address], [place], [address] , [place] [facility] 3 10:10:10 Iron deficiency 49943730 Active 2022 Jyoti Hahn MD [address], [place], [address] , [facility] 3 10:12:16 Pain of multiple joints 88821744 Active 2023 Jyoti Hahn MD [address], [place], [address] , [facility] 4 12:21:26 Chronic pansinusit is 40866072 Active 2023 Jyoti Hahn MD [address], [place], [address] , [facility] 4 12:36:59 Magnetic resonance imaging of brain abnormal 710570541 Active 2023 Jyoti Hahn MD [address], [place], [address] , [facility] 4 12:42:51 Cellulitis 125969364 Active 2023 Jyoti Hahn MD [address], [place], [address] , [facility] 4 09:01:09 Pneumonia 304941064 Active 2023 Jyoti Hahn MD [address], [place], [address] , [facility] 4 09:07:49 Cellulitis of lower limb 856908280 Active 2023 Jyoti Hahn MD [address], [place], [address] , [employer] 17:41:49 Problem Notes None recorded. Procedures Surgical History Date Name Laterality Status Provider Name and Address Organization Details Recorded Time 4 Transitional_Ca re_Management completed Nita Mckinnon LPN [place] [facility] [employer] 04/24/2023 08:55:09 3 Transitional_Ca re_Management completed Nita Mckinnon LPN [place] [facility] [employer] [facility] [employer] 09/19/2022 08:25:05 1 endometrial ablation completed JESSICA Garcia [address], [address], [place], [address], [employer] 07/17/2022 10:50:11 Imaging Results Imaging Date Name Status LastModified by Organization Details LastModified Time 04/06/2023 XR, chest, 2 view completed [address] [place] [address], [address], 04/16/2023 11:48:51 04/06/2023 US, doppler, venous completed [address], [address], 04/16/2023 11:55:54 04/06/2023 XR, foot completed [address], [address], 04/16/2023 11:57:17 04/08/2023 MRI, lower extremity, w/ contrast completed [address] [place] [address], [address], 06/28/2023 13:14:26 04/10/2023 CT, chest, w/ contrast completed [address], [address], 04/16/2023 11:53:56 04/12/2023 XR, chest, 1 view completed [facility] [address] [place] [address] [address], [place], [address], 04/16/2023 11:49:54 04/13/2023 US, echocardiogram completed [facility] [address] [facility] [address], [place], [address], 04/16/2023 11:56:39 Procedure Notes None recorded. Medical Equipment None Reported. Allergies Allergen ID Allergen Name Allergen Category Reaction Reaction Severity Criticality Documentation Date Start Date Code Code System Note Provider Name and Address Organization Details Recorded Time 398 atenolol medicatio n other severe Not available 04/16/2022 1202 RxNorm twent y years ago Not Available [facility] 00:52:08 Medications Name Sig Start Date [...] 1 TABLET BY MOUTH TWICE DAILY NEEDED 01/07 completed Not Available Not Available Not Available [...] Not Available Not Available Not Available Victoza 3-Doroteo 0.6 mg/0.1 mL (18 [...] Not Available No t Available Flucelvax Quad 3296-5535 (PF) 60 mcg (15 mcg x 4)/0.5 [...] Updated DateTime 4 165.1 cm 37.9 kg/m2 203452. 06 g 98.1 [degF] 88 /min 96 % 96 % 148 mm[Hg] 84 mm[Hg] Nita Mckinnon LPN [place] [employer] [facility] [employer] 4 08:56:11 Date Recorded Body height Body mass index (BMI) Body weight Body temperature Heart rate Oxygen saturation Oxygen saturation in Arterial blood by Pulse oximetry Systolic blood pressure Diastolic blood pressure Provider Name and Address Organization Details Last Updated DateTime 4 165.1 cm 37.1 kg/m2 823088. 1 g 97.9 [degF] 91 /min 96 % 96 % 148 mm[Hg] 86 mm[Hg] Dariana Luciano RN [facility] [employer] 4 17:15:29 Date Recorded Body height Body mass index (BMI) Body weight Body temperature Heart rate Oxygen saturation Oxygen saturation in Arterial blood by Pulse oximetry Systolic blood pressure Diastolic blood pressure Provider Name and Address Organization Details Last Updated DateTime 4 165.1 cm 36.8 kg/m2 603262. 91 g 97.3 [degF] 92 /min 96 % 96 % 120 mm[Hg] 76 mm[Hg] Dariana Luciano RN [facility] [employer] 4 17:18:18 Date Recorded Body height Body mass index (BMI) Body weight Body temperature Heart rate Oxygen saturation Oxygen saturation in Arterial blood by Pulse oximetry Systolic blood pressure Diastolic blood pressure Provider Name and Address Organization Details Last Updated DateTime 4 165.1 cm 36.9 kg/m2 029539. 51 g 98.2 [degF] 87 /min 97 % 97 % 140 mm[Hg] 80 mm[Hg] Dariana Luciano RN [facility] [employer] 4 11:17:04 Social History Question Answer Notes LastModified by Organizat ion Details LastModified Time Tobacco Smoking Status Former Smoker quit 2004 Tricia crowley [employer] [facility] [employer] 03/16/2023 12:13:15 What Is Your Level Of Alcohol Consumption? None [id number] Information not available 04/16/2022 What Is Your Level Of Caffeine Consumption? Moderate [id number] Information not available 04/16/2022 How Much Tobacco Do You Chew? None [id number] Information not available 04/16/2022 In The 14 Days Before Symptom Onset, Have You Had Close Contact With A Laboratory-confir med COVID-19 While That Case Was Ill? No [email or web address] Information not available 03/16/2023 In The 14 Days Before Symptom Onset, Have You Had Close Contact With A Person Who Is Under Investigation For COVID-19 While That Person Was Ill? No [email or web address] Information not available 03/16/2023 What Type Of Diet Are You Following? REGULAR [id number] Information not available 04/16/2022 Do You Or Have You Ever Used E-cigarettes Or Vape? Never Used Electronic Cigarettes [email or web address] Information not available 03/16/2023 Are You Following A Low Salt Diet? No [email or web address] Information not available 03/16/2023 What Was The Date Of Your Most Recent Tobacco Screening? 05/23/2020 [email or web address] Information not available 03/16/2023 Do You Or Have You Ever Used Smokeless Tobacco? Never Used Smokeless Tobacco [id number] Information not available 04/16/2022 How Much Tobacco Do You Smoke? 1 PPD [id number].[id number] Information not available 04/16/2022 Do You Use Any Illicit Or Recreational Drugs? No [email or web address] Information not available 03/16/2023 Has Tobacco Cessation Counseling Been Provided? No [email or web address] Information not available 03/16/2023 Do You Have Any Dietary Restrictions? Yes Diabetic [email or web address] Information not available 03/16/2023 Do You Or Have You Ever Used Any Other Forms Of Tobacco Or Nicotine? No [email or web address] Information not available 03/16/2023 Sex: Unknown Functional Status Question Answer Note LastModified by Organizat ion Details LastModified Time What is your exercise level? None [id number] Information not available 04/16/2022 Mental Status None recorded. Family History Relationship Description Onset Age of this Age Resolved Age Notes LastModified by Organization Details LastModified Time Mother Hypertriglyc eridemia [id number] Not available 04/16/2022 00:42:05 Mother Cardiac pacemaker procedure [id number] Not available 04/16/2022 00:42:05 Mother Atrial fibrillation [id number] Not available 04/16/2022 00:42:05 Brother Hypertriglyc eridemia [id number] Not available 04/16/2022 00:42:05 Medical History Condition Response HIGH CHOLESTEROL / HYPERLIPIDEMIA Y DIABETES, TYPE Y HYPERTENSION Y ANEMIA/BLOOD DISORDER Y Gynecological History Statement/Question Response If Post Menopausal, Age at Menopause 49 Sexually Active? N Menses Monthly N STIs/STDs N Current Control Method Menopause Breast Problems no Discharge no Obstetrics History GPAL:G 0 P 0 0 0 0 Immunizations Vaccine Type Date Status Note Provider Nam e and Address Organization Details Recorded Time SARS-COV-2 (COVID-19) vaccine, UNSPECIFIED 3 completed Nita Mckinnon LPN null, [place] [employer] [facility] 08/06/2022 12:10:22 zoster, unspecified formulation 3 completed Nita Mckinnon LPN null, [employer] [facility] [employer] [facility] 08/06/2022 12:10:46 SARS-COV-2 (COVID-19) vaccine, UNSPECIFIED 2 completed Nita Mckinnon LPN null, [employer] [facility] 08/06/2022 14:22:44 zoster recombinant 3 completed Nita Mckinnon LPN null, [employer] [facility] [employer] [facility] 11/24/2022 16:18:21 influenza, unspecified formulation 3 completed Nita Mckinnon LPN null, [employer] [facility] [employer] [facility] 11/24/2022 16:18:36 Influenza, split virus, quadrivalent, preservative 1 completed Not Available [facility] 04/16/2022 00:51:57 Influenza, split virus, quadrivalent, preservative 7 completed Not Available [facility] 04/16/2022 00:51:57 Influenza, split virus, quadrivalent, PF 6 completed Not Available [facility] 04/16/2022 00:51:58 SARS-COV-2 (COVID-19) vaccine, UNSPECIFIED 1 completed Not Available [facility] 04/16/2022 00:51:58 COVID-19, mRNA, LNP-S, PF, 100 mcg/0.5mL dose or 50 mcg/0.25mL dose 1 completed Not Available [facility] 04/16/2022 00:51:58 Influenza, split virus, quadrivalent, preservative 0 completed Not Available [facility] 04/16/2022 00:51:58 Tdap 0 completed Not Available [facility] 04/16/2022 00:51:58 Influenza, split virus, trivalent, preservative 5 completed Not Available [facility] 04/16/2022 00:51:59 Past Encounters Encounter ID Performer Location Encounter Start Date Encounter Closed Date Diagnosis/Indication Diagnosis SNOMED-CT Code Diagnosis ICD10 Code Diagnosis Note [id number] [facility] Pulmonolo [facility] [place] [address] [place] [address] 04/18/2020 00:00:00 04/18/2020 21:13:32 [id number] [facility] [place] [address] [place] [address] 04/20/2020 00:00:00 04/20/2020 17:51:54 [id number] [facility] [place] [address] [place] [address] 04/24/2020 00:00:00 04/24/2020 17:32:49 [id number] [facility] Pul[facility] [place] [address] [place] [address] 05/23/2020 00:00:00 05/23/2020 19:18:42 [id number] [facility] [place]o [place] [address] [place] [address] 08/10/2020 00:00:00 08/10/2020 15:16:00 [id number] [facility] [place] [address] [place] [address] 10/12/2020 00:00:00 10/12/2020 18:39:46 [id number] [facility] [place] [address] [place] [address] 10/25/2020 00:00:00 10/26/2020 16:34:06 [id number] [facility] [place] [address] [place] [address] 11/22/2020 00:00:00 11/22/2020 20:22:18 [id number] [facility] [place]iat[place] [address] [facility] [address] [place] [address] 12/13/2020 00:00:00 12/14/2020 10:19:13 [id number] [facility] [place] [address] [place] [address] 03/29/2021 00:00:00 03/29/2021 14:04:58 [id number] [facility] [place] [address] [facility] [address] [place] [address] 09/04/2021 00:00:00 09/04/2021 10:45:48 [id number] [facility] [place] [address] [facility] [address] [place] [address] 10/10/2021 00:00:00 10/10/2021 17:53:04 [id number] [facility] [place] [address] [place] [address] 12/11/2021 00:00:00 12/11/2021 17:57:34 [id number] [facility] [place] [address] [place] [address] 03/19/2022 00:00:00 03/19/2022 10:41:24 [id number] JESSICA Garcia [facility] [place] [address] [facility] [address] [place] [address] 07/03/2022 11:43:21 07/03/2022 12:27:55 Hyperglycemia due to type 2 diabetes mellitus [id number] 27577 E11.65 Chronic, current status unknown.A1 C 8.3 (10/24/21)In sulin 50 units TID ACMetformi n ER 500mg dailyVicto za 1.8mg daily with mealsEncou raged pt to f/u with endocrinol ogy Menopausal symptom 83878 002 N95.1 Reviewed self-help strategies (dietary changes/ex ercise/acc upuncture/ etc.), herbal and other OTC therapies, hormonal options as well as other medication s used to treat common menopausal symptoms.W ill check hormone panel and plan to discuss treatment options in detail next visit. Rheumatoid arthritis 698 28723 M06.9 Chronic, not well controlled with current pain management regimen Pt not currently on any immunomodu lators. Failed methotrexa te. Will continue with pain meds pending pts next f/u with rheumatmagdaleno rascon, new referral generated. May need to consider tx with leflunomid e or hydroxychl orquine if pt unable to be seen by marilou rascon soon.Santiago nue with hydrocodon e.Continue with pregabalin dosage.Serrato dicap placard form completed. Medication monitoring 39 5390794 Z51.81 Chronic/St ableContin ue to use hydrocodon e sparingly as directedPt denies any lending, selling, or borrowing of medication s. Reviewed controlled substance agreement requiremen ts. Refill [place] checked .Due for UDSRTO 3 months for routine med check and f/u appt. Hyperlipidemia 58781950 E78.5 Vitamin D deficiency 347 24370 E55.9 Obesity 664914474 E66.9 [id number] JESSICA Garcia [facility] Primary Care [facility] [address] [facility] [address] [place] [address] 07/17/2022 09:42:11 07/17/2022 10:39:27 Hyperglycemia due to type 2 diabetes mellitus [id number] 68224 E11.65 Chronic, not well controlled at this time, since pt not improving with Victoza, recommend change to Trulicity instead.A1 C 8.3 (10/24/21); 9.2 (07/03/22)I nsulin 50 units TID ACIncrease to Metformin ER 500mg-2 tabs BIDDiscont inue Victoza 1.8mg daily with meals; change to Trulicity 0.75mg weeklyEnco uraged pt to f/u with endocrinol ogy, has not been seen since 2020. Rheumatoid arthritis 698 30995 M06.9 Chronic, not well controlled with current [...] if pt unable to be seen by rheumatmagdaleno gy soon, updated referral generated last visit.Pt encouraged to get updated eye exam.Will check PPD on Thursday.Con tinue with hydrocodon e as directed.I ncrease to pregabalin 200mg BIDHandica p placard form completed last visit. Menopausal symptom 86164 002 N95.1 Reviewed self-help strategies (dietary changes/ex ercise/acc upuncture/ etc.), herbal and other OTC therapies, hormonal options as well as other medication s used to treat common menopausal symptoms. Pt encouraged to f/u with ob/gyn provider in the near future as well.Hormo ne panel results as follows:te stosterone -total 65.5 (wnl), free 1.19Estrog ens-91 (post-danita pausal)Pro lactin-5.5 (wnl)FSH-5 4.2 (post-danita pausal)SHB G-66.1 (wnl)LH-31 .9 (post-danita pausal) Medication monitoring 39 7596890 Z51.81 Chronic/St ableContin ue to use hydrocodon e sparingly as directedPt denies any lending, selling, or borrowing of medication s. Reviewed controlled substance agreement requiremen ts. Refill given.[place] checked 05/02/22UDS appropriat e (07/03/22)R TO 3 months for routine med check and f/u appt. Hyperlipidemia 19510590 E78.5 Chronic, stablehdl 39, trigs 328, non-hdl 132 (10/24/21)tr igs 329 (07/03/22)C ontinue Rosuvastat in 40mg twice weeklyNiac in 500mg daily (non-flush ing) Vitamin D deficiency 347 81373 E55.9 Chronic, stableVit D 32.0 (07/03/22)E ncouraged pt continue weekly D2 supplement and try to spend a few minutes outdoors daily (wearing sunscreen) . Tuberculos is screening 409775395 Z11.1 Needs updated TB screen prior to starting leflunomid e or hydroxychl oroquine. Body mass index 30+ - obesity 884906866 Z68.39 ChronicNot improved despite report of dieting/li [...] Try to keep daily calorie count btw 4380-3254 calories. Gave meal planning handout. No improvemen t with Victoza, recommend change to Trulicity. Cobalamin deficiency 190 583277 E53.8 New finding on labsB12 357 (07/03/22)S tart weekly B12 injections x 4 weeks, then go to monthly injections thereafter . Pt indicates she is comfortabl e giving herself the injections at home. Postmenopa usal bleeding 24042538 N95.0 ChronicBle eding likely d/t known fibroidsPt encouraged to work on getting blood sugars under control to qualify for surgery. 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 Patient in formed - test result 662088567 Z71.2 Reviewed lab results with patient. Discussed abnormal levels and treatment recommenda tions as above. [id number] TRISTEN Smith [facility] Primary Care [facility] [address] [facility] [address] [place] [address] 07/21/2022 09:35:40 07/21/2022 10:14:08 Cobalamin deficiency 239140612 E53.8 Tuberculos is screening 030952778 Z11.1 [id number] [facility] Primary Care [facility] [address] [facility] [address] [place] [address] 09/19/2022 08:19:03 09/19/2022 10:34:15 Transition of care 9697069838 105 Z75.8 Hypokalemia 88432674 E87 .6 improved since holding lasixconti nue potassium 10 meq and hold lasixcheck labscall with lab results on need to increase daily potassium and trial lower dose lasix 20 mg 2-3 times per week to find what dosage is effective without electrolyt e disturbanc e [id number] JESSICA Garcia [facility] Primary Care [facility] [address] [facility] [address] [place] [address] 12/16/2022 09:54:06 12/16/2022 13:04:16 Chronic sinusitis 65461260 J32.9 Chronic, recurrentP t declines ENT referral, [...] 20mg daily Edema of l ower extremity 647109982 R60.0 RecurrentD espite correction of potassium levels.Adv ised to elevate lower extremitie s, try not to keep legs dependent. Limit salt, pork, caffeine. Try otc compressio n socks. Work on appropriat e water intake. Take any diuretics as directed. [id number] Jyoti Hahn MD [facility] Primary Care [facility] [address] [facility] [address] [place] [address] 01/06/2023 08:55:57 01/06/2023 09:48:27 Dry eyes 290826344 H04.123 Chronic hypokalemia 1046 9003 E87.6 Cobalamin deficiency 190 370273 E53.8 Vitamin D deficiency 347 87212 E55.9 Hyperlipidemia 43273857 E78.5 Iron defic iency anemia 48876802 D50.9 Well contr olled type 2 diabetes mellitus 550940258 E11.9 [id number] [facility] Primary Care [facility] [address] [facility] [address] [place] [address] 01/28/2023 09:53:17 01/28/2023 10:19:45 Headache 61856250 R51.9 R22.0 persistent headaches that are worseninga ssociated with visual disturbanc e and dizziness Iron deficiency 74726473 E61.1 restart pantoprazo letake iron dailyf/u in 6 weeks Acute sinusitis 51688235 J01.90 Acid reflux 685655385 K2 1.9 restart Rheumatoid arthritis 698 14606 M06.9 [id number] [facility] Primary Care [facility] [address] [facility] [address] [place] [address] 03/16/2023 12:12:31 03/16/2023 12:50:55 Chronic pansinusitis 24330275 J32.4 ENT referralno yann on MRIdoxycyc line 100 mg po bid x 14 days Rheumatoid arthritis 698 92772 M06.9 needs new referralre fill givenPt understand s this medication has risk for abuse/depe ndence and agrees to take it only as prescribed and to guard from loss/theft [place]cript[place] on monitoring website reviewed Type 2 tg betes mellitus without complication 560576646 E11.9 new referral given, previous endocrinol ogist has left area Asthma 965943018 J45.90 9 new referral given, previous pulmonolog ist has left the area Essential hypertension 62831151 I10 wants cardiology closer to home, new referral given Magnetic r esonance imaging of brain abnormal 072876415 R90.89 reviewed MRI and discussed having excellent control of htn, hyperlipid emia and diabetes for prevention neurology referral given Hypokalemia 97574748 E87 .6 repeat bmp monthly to monitor [id number] Jyoti Hahn MD [facility] Primary Care [facility] [address] [facility] [address] [place] [address] 04/24/2023 08:32:52 04/24/2023 09:08:12 Transition of care 0081784647 105 Z75.8 Cellulitis 657629740 L03 .90 out of work until releasedel evate as much as possibledo xycycline 100 mg po bid x 14 daysf/u on to reassess Pneumonia 454915360 J18. 9 noted on cta chest on 04/10has completed augmentinc ough improvedlu ng exam clear [id number] Jyoti Hahn MD [facility] Primary Care [address] [place] [address] 04/30/2023 17:10:43 04/30/2023 17:53:39 Cellulitis of lower limb 693993346 L03.119 out of work until released [id number] Jyoti Hahn MD [facility] Primary Care [address] [place] [address] 05/07/2023 17:11:46 05/07/2023 17:32:00 Cellulitis of lower limb 359349068 L03.119 improving but not yet resolvedou t of work until released [id number] JESSICA Pizano [address] [address] 05/25/2023 08:21:56 05/25/2023 09:15:49 Cellulitis of lower limb 079239036 L03.119 Finish out course of antibiotic sReturn if new or worsening symptoms Cellulitis 871504926 L03 .[id number] [facility] Primary Care [address] [place] [address] 06/16/2023 11:09:27 06/16/2023 12:57:23 Vitamin D deficiency 34217618 E55.9 Renewal of prescription 568884345 Z76.0 Chronic back pain 179528 002 M54.9 refill given Rheumatoid arthritis 698 62738 M06.9 needs new referralre fill givenPt understand s this medication has risk for abuse/depe ndence and agrees to take it only as prescribed and to guard from loss/theft [place] prescripti [place] monitoring website reviewed update 06/16/23:wi ll establish with new pcp, refills givenkeeps some prednisone on hand prn Essential hypertension 43080900 I10 stablerefi lls given Gastroesop hageal reflux disease without esophagitis 186211538 K21.9 Type 2 tg betes mellitus without complication 685013877 E11.9 a1c 7.1on trulicity 3 mg sc qweekmetfo rmin ER 500 mg 2 po bid Edema of l ower extremity 248377346 R60.0 stable Hyperlipidemia 35519013 E78.5 stable Hypokalemia 19363857 E87 .6 Chronic sinusitis 749961 00 J32.9 stable, refill given Herpes labialis 5248910 B00.1 keeps refills on hand, no current outbreak Health Concerns Section Related Observation LastModified by Organization Detai ls LastModified Time None Recorded Concern Status LastModified by Organization Details LastModified Time None Recorded Advance Directives Directive None Recorded Payers Encounter Date Sequence Insurance Name Policy Number Policy Langston Covered Member ID Langston Member ID Guarantor Name 04/24/2023 1 [facility] ON OR AFTER 08/16/20 (MEDICAID REPLACEMENT - HMO) Regina Howell [id number] Regina Howell 04/30/2023 1 [facility] ON OR AFTER 08/16/20 (MEDICAID REPLACEMENT - HMO) Regina Howell [id number] Regina Howell 05/07/2023 1 [facility] ON OR AFTER 08/16/20 (MEDICAID REPLACEMENT - HMO) Regina Howell [id number] Regina Howell 05/25/2023 1 [facility] ON OR AFTER 08/16/20 (MEDICAID REPLACEMENT - HMO) Regina Howell [id number] Regina Howell 06/16/2023 1 [facility] ON OR AFTER 08/16/20 (MEDICAID REPLACEMENT - HMO) Regina Howell [id number] Regina Howell Notes Date Note Type Note Provider Name and Address Organization Details Recorded Time 04/24/2023 text/html was inpatient 8 days, now out of hospital for 8 days, finished her abx 2 days after release. Redness in right lower leg is somewhat improved but not resolved. +pain and swelling. No fever. Jyoti Hahn MD [address] [place] [address], [facility] [address], [place], [address], [place] [facility] [employer] [facility] 05/13/2023 07:44:34 04/30/2023 text/html was inpatient 8 [...] congestion. No cough Jyoti Hahn MD [address], [place], [address], [employer] [facility] [employer] [facility] 05/17/2023 08:30:53 05/07/2023 text/html was inpatient 8 [...] Hahn MD [address], [place], [address], [employer] 05/17/2023 10:02:23 05/25/2023 text/html She was admitted to the hospital on 04/06/23 for cellulitis to the RLE and was admitted for 9 days. She is currently on augmentin 875-125, finished today. She still has redness noted to her right bello, but its is much improved per patient. She has no other concerns today. JESSICA Pizano [address], [place], [address], [employer] [facility] [employer] 05/25/2023 08:44:59 06/16/2023 text/html was inpatient 8 [...] some refills and referrals. Jyoti Hahn MD [address] [place] [address], [place], [address], [place] [facility] [employer] [facility] 06/24/2023 13:20:48 OBGyn Episode No OBEpisode recorded.
--- OUTSIDE RECORDS SUMMARY | 2024-06-12 18:39 | XMS_ITS | Clinical Summary ---
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 Gender Identity Not on file Sexual Orientation [...] Comments LIPID PANEL Routine 01/12/2023 7:51 AM LINUX DEVELOPER from Last 3 Months or Most Recently Relevant to Health Maintenance Results * (ABNORMAL) Lipid panel (01/12/2023 7:51 AM LINUX DEVELOPER) SCRIBED Cholesterol, Total 122 0 - 200 EXTERNAL LAB SCRIBED HDL 41 40 - 100 EXTERNAL LAB SCRIBED LDL 51 0 - 100 EXTERNAL LAB SCRIBED Triglycerides 253(A) 0 - 150 EXTERNAL LAB Blood 01/12/2023 7:51 AM LINUX DEVELOPER us Historical Provider LAB BLOOD ORDERABLES Aubree l Result EXTERNAL LAB from Last 3 Months or Most Recently Relevant to Health Maintenance Insurance [place] [facility] Care Teams Hr Business Partner Consultant Relationship Specialty Start Date End Date Carlos Wallace RESIDENTIAL REAL ESTATE ASSISTANT PCP - General 06/04/20
--- OUTSIDE RECORDS SUMMARY | 2024-06-12 18:40 | XMS_ITS | Referral Summary ---
Author Organization 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 Gender Identity Not on file Sexual Orientation [...] Comments LIPID PANEL Routine 01/12/2023 7:51 AM TEACHER THEATER ARTS from Last 3 Months or Most Recently Relevant to Health Maintenance Results * (ABNORMAL) Lipid panel (01/12/2023 7:51 AM TEACHER THEATER ARTS) SCRIBED Cholesterol, Total 122 0 - 200 EXTERNAL LAB SCRIBED HDL 41 40 - 100 EXTERNAL LAB SCRIBED LDL 51 0 - 100 EXTERNAL LAB SCRIBED Triglycerides 253(A) 0 - 150 EXTERNAL LAB Blood 01/12/2023 7:51 AM TEACHER THEATER ARTS us Historical Provider LAB BLOOD ORDERABLES Aubree l Result EXTERNAL LAB from Last 3 Months or Most Recently Relevant to Health Maintenance Insurance CHOICE PRF PPO [place] [facility] Care Teams Licensing Director Relationship Specialty Start Date End Date Carlos Wallace NP PCP - General 06/04/20
--- OUTSIDE RECORDS SUMMARY | 2024-06-12 18:40 | XMS_ITS | Data Portability ---
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 Stop the ibuprofen. Pt is to see an ENT specialist. [email or web address] Not available 06/25/2023 12:54:00 Plan of Treatment Reminders Order Date Submit Date Provider Last Modified By Organization Details Last Modified Time Details Appointments None record ed. Lab HbA1c (hemog lobin A1c), blood 2023 024 [place] [facility], [address], [place], [address], 4 02:22:45 CMP, serum or plasma 2023 024 [place] [facility], [address], [place], [address], 4 02:22:43 TSH, ultra- sensit edouard, serum 2023 024 [facility], [address], [place], [address], 4 15:48:49 CBC w/ auto diff 2023 024 [place] [facility], [address], [place], [address], 4 02:22:44 magnes ium, serum or plasma 2023 024 [place] [facility], [address], [place], [address], 4 02:22:43 lipid panel, serum 2023 024 [place] [facility], [address], [place], [address], 4 02:22:42 vitami n D, 25-hyd howard, total, serum 2023 024 [facility], [address], [place], [address], 4 02:22:45 hepati tis panel (A+B+C ), acute, serum 2014 015 [facility], [address], [address], [place], [address], 4 12:22:15 ferrit in, serum or plasma 2014 015 [facility], [address], [address], [place], [address], 4 12:22:15 iron + total iron-b inding capaci ty (TIBC) , serum 2014 015 [facility], [address], [address], [place], [address], 4 12:22:15 vitami n B12 + folate , serum or blood 2014 015 [facility], [address], [address], [place], [address], 4 12:22:15 CMP, serum or plasma 2013 014 [facility], [address] [place] [address], [address], [place], [address], 4 12:22:15 microa lbumin /creat inine, mass ratio, urine 2013 014 [facility], [address] [place] [address], [facility] [address], [place], [address], 4 12:22:15 lipid panel, serum 2013 014 [facility], [address] [place] [address], [address], [place], [address], 4 12:22:15 CBC 2013 014 [facility], [address] [place] [address], [facility] [address], [place], [address], 4 12:22:15 Referral None record ed. Procedures None record ed. Surgeries None record ed. Imaging None record ed. Medication Orders omepra zole 20 mg capsul e,fabby yed releas e 2023 024 [email or web address], [address], [id number], 5 17:12:26 escita lopram 10 mg tablet 2023 024 [facility], [address], [id number], 4 12:48:53 Celebr ex 100 mg capsul e 2023 024 [facility], [address], [id number], 4 10:05:12 amoxic illin 500 mg tablet 2014 015 [facility], [address] [place] [address], [address], 4 12:22:15 ferrou s sulfat e 325 mg (65 mg iron) tablet 2014 015 [facility], [address] [place] [address], [address], 4 12:22:15 cyclob enzapr ine 10 mg tablet 2013 014 [place] [address], [address] [place] [address], [address], 4 07:20:09 clonid ine HCl 0.1 mg tablet 2013 014 [facility], [address] [place] [address], [address], 4 12:22:15 amlodi pine 10 mg tablet 2013 014 [place] [address], [address] [place] [address], [address], 4 12:22:15 sertra line 50 mg tablet [address] [facility], [address] [place] [address], [address], 4 07:19:42 Patient TargetsNo targets recorded. Patient Instructions Encounter Date Encounter Id Patient Instructions Last Modified By Organization Details Last Modified Time 01/23/2014 [id number] Take meds as prescribed Healthy ADA diet/ exercise f/u with endo nsuthan Not available 01/23/2014 15:02:38 04/24/2014 [id number] Take meds as prescribed Healthy ADA diet/ exercise f/u with endo f/u in 2 month with lab nsuthan Not available 04/24/2014 15:10:19 06/25/2023 [id number] mammogram: about this test [email or web address] Not available 06/25/2023 13:02:18 insomnia: care instructions [email or web address] Not available 06/25/2023 12:55:57 learning about t ype 2 diabetes [email or web address] Not available 06/25/2023 12:37:16 type 2 diabetes: care instructions [email or web address] Not available 06/25/2023 12:37:16 gastroesophageal reflux disease (GERD): care instructions [email or web address] Not available 06/25/2023 12:34:56 controlling your asthma: care instructions [email or web address] Not available 06/25/2023 12:28:19 learning about asthma [email or web address] Not available 06/25/2023 12:28:19 high blood press ure: care instructions [email or web address] Not available 06/25/2023 12:31:27 learning about h igh blood pressure [email or web address] Not available 06/25/2023 12:31:27 Rheumatoid Arthr itis (RA): Care Instructions Not available 06/25/2023 12:43:32 Reason for Referral None Reported. Results Created Date Observation Date Name Description Value Unit Range Abnormal Flag Note LastModifiedBy Organization Detail LastModifiedTime 12/25/1912/25/2023 COLOG UARD cologuard result Cancel led - Duplic ate Order not applic able Not Available [facility] (Cologuard Orders Only) [address], [place], [address], 12/25/2023 12:12:03 08/01/19 24 08/03/2023 LIPID PANEL , STAND MARTA cholesterol, total 132 mg/dL <200 normal Not Available [facility] [address] [place], [address], 08/03/2023 03:36:13 08/01/19 24 08/03/2023 LIPID PANEL , STAND MARTA HDL cholesterol 39 mg/dL > or = 50 low Not Available [facility] [address] [place], [address], 08/03/2023 03:36:13 08/01/19 24 08/03/2023 LIPID PANEL , STAND MARTA triglyceride s 212 mg/dL <150 high If a non-f astin g speci men was colle cted, consi maría repea t trigl yceri de testi ng on a fasti ng speci men if clini sreekanth indic ated. Geoffrey copeland et al. J. of Clin. Lipid ol. 2015; 9:129 -169. Not Available [facility] [address] [place] [address], [address], 08/03/2023 03:36:13 08/01/19 24 08/03/2023 LIPID PANEL [...] lated using the Enedina n-Hop kins calcu latshelley n, which is a valid ated novel metho d provi ding arnav r accur acy than the Fried audra equat ion in the estim ation of LDL-C . Enedina alvarado SS et al. IRVING. 2013; 310(1 9): 2061- 2068 (http ://ed ucati on.Qu biaMedbox. com/f aq/FA Q164) Not Available [facility] [address] [place], [address], 08/03/2023 03:36:13 08/01/19 24 08/03/2023 LIPID PANEL , STAND MARTA chol/HDLC ratio 3.4 (calc ) <5.0 normal Not Available [facility] [address] [place] [address], [address], 08/03/2023 03:36:13 08/01/19 24 08/03/2023 LIPID PANEL , STAND MARTA non HDL cholesterol 93 mg/dL _(luna c) <130 normal For patie nts with diabe nathalie plus 1 major ASCVD risk facto r, treat ing to a non-H DL-C goal of <100 mg/dL (LDL- C of <70 mg/dL ) is consi dered a thera peuti c optio n. Not Available [address], [address], 08/03/2023 03:36:13 08/01/19 24 08/03/2023 MAGNE SIUM magnesium 1.9 mg/dL 1.5-2. 5 normal Not Available [address], [address], 08/03/2023 03:36:14 08/01/19 24 08/03/2023 COMPR EHENS EDOUARD METAB OLIC PANEL glucose 111 mg/dL 65-99 high Fasti ng refer ence inter juan For someo ne witho ut known diabe nathalie, a gluco se value betwe en 100 and 125 mg/dL is consi stent with predi abete s and shoul d be confi rmed with a follo w-up test. Not Available [address], [address], 08/03/2023 03:36:15 08/01/19 24 08/03/2023 COMPR EHENS EDOUARD METAB OLIC PANEL urea nitrogen (BUN) 19 mg/dL 7-25 normal Not Available [address], [address], 08/03/2023 03:36:15 08/01/19 24 08/03/2023 COMPR EHENS EDOUARD METAB OLIC PANEL creatinine 0.71 mg/dL 0.50-1 .03 normal Not Available [address], [address], 08/03/2023 03:36:15 08/01/19 24 08/03/2023 COMPR EHENS EDOUARD METAB OLIC PANEL eGFR 101 mL/mi n/1.7 3m2 > or = 60 normal Not Available [address], [address], 08/03/2023 03:36:15 08/01/19 24 08/03/2023 COMPR EHENS EDOUARD METAB OLIC PANEL BUN/creatini ne ratio SEE NOTE: (calc ) 6-22 Not Repor yann: BUN and Creat inine are withi n refer ence range . Not Available [address], [address], 08/03/2023 03:36:15 08/01/19 24 08/03/2023 COMPR EHENS EDOUARD METAB OLIC PANEL sodium 144 mmol/ L 135-14 6 normal Not Available [address], [address], 08/03/2023 03:36:15 08/01/19 24 08/03/2023 COMPR EHENS EDOUARD METAB OLIC PANEL potassium 4.0 mmol/ L 3.5-5. 3 normal Not Available [address], [address], 08/03/2023 03:36:15 08/01/19 24 08/03/2023 COMPR EHENS EDOUARD METAB OLIC PANEL chloride 106 mmol/ L 98-110 normal Not Available [address], [address], 08/03/2023 03:36:15 08/01/19 24 08/03/2023 COMPR EHENS EDOUARD METAB OLIC PANEL carbon dioxide 28 mmol/ L 20-32 normal Not Available [address], [address], 08/03/2023 03:36:15 08/01/19 24 08/03/2023 COMPR EHENS EDOUARD METAB OLIC PANEL calcium 9.1 mg/dL 8.6-10 .4 normal Not Available [address], [address], 08/03/2023 03:36:15 08/01/19 24 08/03/2023 COMPR EHENS EDOUARD METAB OLIC PANEL protein, total 6.4 g/dL 6.1-8. 1 normal Not Available [address], [address], 08/03/2023 03:36:15 08/01/19 24 08/03/2023 COMPR EHENS EDOUARD METAB OLIC PANEL albumin 3.9 g/dL 3.6-5. 1 normal Not Available [address], [address], 08/03/2023 03:36:15 08/01/19 24 08/03/2023 COMPR EHENS EDOUARD METAB OLIC PANEL globulin 2.5 g/dL_ (calc ) 1.9-3. 7 normal Not Available [address], [address], 08/03/2023 03:36:15 08/01/19 24 08/03/2023 COMPR EHENS EDOUARD METAB OLIC PANEL albumin/glob ulin ratio 1.6 (calc ) 1.0-2. 5 normal Not Available [address], [address], 08/03/2023 03:36:15 08/01/19 24 08/03/2023 COMPR EHENS EDOUARD METAB OLIC PANEL bilirubin, total 0.2 mg/dL 0.2-1. 2 normal Not Available [address], [address], 08/03/2023 03:36:15 08/01/19 24 08/03/2023 COMPR EHENS EDOUARD METAB OLIC PANEL alkaline phosphatase 69 U/L 37-153 normal Not Available [address], [address], 08/03/2023 03:36:15 08/01/19 24 08/03/2023 COMPR EHENS EDOUARD METAB OLIC PANEL AST 10 U/L 10-35 normal Not Available [address], [address], 08/03/2023 03:36:15 08/01/19 24 08/03/2023 COMPR EHENS EDOUARD METAB OLIC PANEL ALT 9 U/L 6-29 normal Not Available [address], [address], 08/03/2023 03:36:15 08/01/19 24 08/02/2023 CBC (INCL UDES DIFF/ PLT) white blood cell count 8.3 thous and/u L 3.8-10 .8 normal Not Available [address], [address], 08/02/2023 11:08:40 08/01/19 24 08/02/2023 CBC (INCL UDES DIFF/ PLT) red blood cell count 3.97 ismael on/uL 3.80-5 .10 normal Not Available [address], [address], 08/02/2023 11:08:40 08/01/19 24 08/02/2023 CBC (INCL UDES DIFF/ PLT) hemoglobin 11.1 g/dL 11.7-1 5.5 low Not Available [address], [address], 08/02/2023 11:08:40 08/01/19 24 08/02/2023 CBC (INCL UDES DIFF/ PLT) hematocrit 35.2 % 35.0-4 5.0 normal Not Available [address], [address], 08/02/2023 11:08:40 08/01/19 24 08/02/2023 CBC (INCL UDES DIFF/ PLT) MCV 88.7 fL 80.0-1 00.0 normal Not Available [address], [address], 08/02/2023 11:08:40 08/01/19 24 08/02/2023 CBC (INCL UDES DIFF/ PLT) MCH 28.0 pg 27.0-3 3.0 normal Not Available [address], [address], 08/02/2023 11:08:40 08/01/19 24 08/02/2023 CBC (INCL UDES DIFF/ PLT) MCHC 31.5 g/dL 32.0-3 6.0 low Not Available [address], [address], 08/02/2023 11:08:40 08/01/19 24 08/02/2023 CBC (INCL UDES DIFF/ PLT) RDW 13.2 % 11.0-1 5.0 normal Not Available [address], [address], 08/02/2023 11:08:40 08/01/19 24 08/02/2023 CBC (INCL UDES DIFF/ PLT) platelet count 145 thous and/u L 140-40 0 normal Not Available [address], [address], 08/02/2023 11:08:40 08/01/19 24 08/02/2023 CBC (INCL UDES DIFF/ PLT) MPV 10.8 fL 7.5-12 .5 normal Not Available [address], [address], 08/02/2023 11:08:40 08/01/19 24 08/02/2023 CBC (INCL UDES DIFF/ PLT) absolute neutrophils 5403 cells /uL 1500-7 800 normal Not Available [address], [address], 08/02/2023 11:08:40 08/01/19 24 08/02/2023 CBC (INCL UDES DIFF/ PLT) absolute lymphocytes 2158 cells /uL 850-39 00 normal Not Available [address], [address], 08/02/2023 11:08:40 08/01/19 24 08/02/2023 CBC (INCL UDES DIFF/ PLT) absolute monocytes 581 cells /uL 200-95 0 normal Not Available [address], [address], 08/02/2023 11:08:40 08/01/19 24 08/02/2023 CBC (INCL UDES DIFF/ PLT) absolute eosinophils 108 cells /uL 15-500 normal Not Available [address], [address], 08/02/2023 11:08:40 08/01/19 24 08/02/2023 CBC (INCL UDES DIFF/ PLT) absolute basophils 50 cells /uL 0-200 normal Not Available [address], [address], 08/02/2023 11:08:40 08/01/19 24 08/02/2023 CBC (INCL UDES DIFF/ PLT) neutrophils 65.1 % normal Not Available [address], [address], 08/02/2023 11:08:40 08/01/19 24 08/02/2023 CBC (INCL UDES DIFF/ PLT) lymphocytes 26.0 % normal Not Available [address], [address], 08/02/2023 11:08:40 08/01/19 24 08/02/2023 CBC (INCL UDES DIFF/ PLT) monocytes 7.0 % normal Not Available [address], [address], 08/02/2023 11:08:40 08/01/19 24 08/02/2023 CBC (INCL UDES DIFF/ PLT) eosinophils 1.3 % normal Not Available [facility] [place] [place] [address] [place], [address], 08/02/2023 11:08:40 08/01/19 24 08/02/2023 CBC (INCL UDES DIFF/ PLT) basophils 0.6 % normal Not Available [facility] [address] [place], [address], 08/02/2023 11:08:40 08/01/19 24 08/02/2023 TSH TSH 0.70 mIU/L normal Refer ence Range > or = 20 Years 0.40- 4.50 Pregn jabari Range s First trime ster 0.26- 2.66 Secon d trime ster 0.55- 2.73 Third trime ster 0.43- 2.91 Not Available [place] [address] [place], [address], 08/02/2023 09:02:54 08/01/19 24 08/02/2023 VITAM IN D,25- OH,TO MINA,I A vitamin D,25-oh,tota l,ia 82 NG/mL 30-100 [...] /MS is recom jana d: order code 61278 (saloni ents >2yrs ). See Note 1 Note 1 For addit ional infor jose fleming e refer to http: //ty Delgado stDia gnost ics.c om/fa q/FAQ 199 (This link is being provi ded for infor sea rizvi/ educdulce thomas l purpo ses only. ) Not Available [facility] [address], [place], [address], 08/02/2023 09:02:54 08/01/19 24 08/02/2023 HEMOG LOBIN [...] c503 platf orm. Effec tive , a traci rodas in test platf orms from the [facility] t[facility] to the Lissette gilbert c503 may have shift ed HbA1c resul ts sandy red to histo rical resul ts. Based on labor atory valid ation testi ng condu cted at [employer] , the Lissette platf orm relat edouard to the Abbot t platf orm had an avera ge incre ase in HbA1c value of < or = 0.3%. This diffe rence is withi n accep yann varia bilit y estab lishe d by the Natio nal Glyco hemog lobin Stand ardiz ation Progr am. Note that not all indiv idual s will have had a shift in their resul ts and direc t sandy rison s betwe en histo rical and curre nt resul ts for testi ng condu cted on diffe rent platf orms is not recom jana d. Not Available [place] [address] [place], [address], 08/02/2023 02:22:45 10/27/1910/28/2023 LIPID PANEL , STAND MARTA cholesterol, total 136 mg/dL <200 normal Not Available [facility] [place] [place] [address] [place], [address], 10/28/2023 12:00:15 10/27/1910/28/2023 LIPID PANEL , STAND MARTA HDL cholesterol 56 mg/dL > or = 50 normal Not Available [facility] [place] [address] [place], [address], 10/28/2023 12:00:15 10/27/19 24 10/28/2023 LIPID PANEL , STAND MARTA triglyceride s 143 mg/dL <150 normal Not Available [place] [address] [place], [address], 10/28/2023 12:00:15 10/27/1910/28/2023 LIPID PANEL , STAND MARTA LDL-choleste rol 57 mg/dL _(luna c) normal Refer ence range : <100 Mayelin able range <100 mg/dL for prima ry preve ntion ; <70 mg/dL for patie nts with CHD or diabe tic patie nts with > or = 2 CHD risk facto rs. LDL-C is now calcu lated using the Enedina n-Hop kins jovi chaves n, which is a valid ated novel nataliao d zaina chin accur acy than the Fried audra equat ion in the estim ation of LDL-C . Enedina alvarado SS et al. IRVING. 2013; 310(1 9): 2061- 2068 (http ://ed ucati on.Qu Rose knight tics. com/f aq/FA Q164) Not Available [facility] [place] [address] [place], [address], 10/28/2023 12:00:15 10/27/19 24 10/28/2023 LIPID PANEL , STAND MARTA chol/HDLC ratio 2.4 (calc ) <5.0 normal Not Available [address], [address], 10/28/2023 12:00:15 10/27/19 24 10/28/2023 LIPID PANEL , STAND MARTA non HDL cholesterol 80 mg/dL _(luna c) <130 normal For patie nts with diabe nathalie plus 1 major ASCVD risk facto r, treat ing to a non-H DL-C goal of <100 mg/dL (LDL- C of <70 mg/dL ) is consi padmini a angélica beltran optio n. Not Available [address], [address], 10/28/2023 12:00:15 10/27/1910/28/2023 MAGNE SIUM magnesium 1.3 mg/dL 1.5-2. 5 low Not Available [employer] [address], [address], 10/28/2023 12:00:16 10/27/1910/28/2023 COMPR EHENS EDOUARD METAB OLIC PANEL glucose 157 mg/dL 65-99 high Fasti ng refer ence inter juan For someo ne witho ut known diabe nathalie, a gluco se value >125 mg/dL indic ates that they may have diabe nathalie and this shoul d be confi rmed with a follo w-up test. Not Available [facility] [address] [place], [address], 10/28/2023 12:00:17 10/27/1910/28/2023 COMPR EHENS EDOUARD METAB OLIC PANEL urea nitrogen (BUN) 17 mg/dL 7-25 normal Not Available [facility] [address], [address], 10/28/2023 12:00:17 10/27/19 24 10/28/2023 COMPR EHENS EDOUARD METAB OLIC PANEL creatinine 1.11 mg/dL 0.50-1 .03 high Not Available [address], [address], 10/28/2023 12:00:17 10/27/19 24 10/28/2023 COMPR EHENS EDOUARD METAB OLIC PANEL eGFR 59 mL/mi n/1.7 3m2 > or = 60 low Not Available [address], [address], 10/28/2023 12:00:17 10/27/19 24 10/28/2023 COMPR EHENS EDOUARD METAB OLIC PANEL BUN/creatini ne ratio 15 (calc ) 6-22 normal Not Available [address], [address], 10/28/2023 12:00:17 10/27/1910/28/2023 COMPR EHENS EDOUARD METAB OLIC PANEL sodium 143 mmol/ L 135-14 6 normal Not Available [address], [address], 10/28/2023 12:00:17 10/27/1910/28/2023 COMPR EHENS EDOUARD METAB OLIC PANEL potassium 3.1 mmol/ L 3.5-5. 3 low Not Available [address], [address], 10/28/2023 12:00:17 10/27/19 24 10/28/2023 COMPR EHENS EDOUARD METAB OLIC PANEL chloride 101 mmol/ L 98-110 normal Not Available [address], [address], 10/28/2023 12:00:17 10/27/19 24 10/28/2023 COMPR EHENS EDOUARD METAB OLIC PANEL carbon dioxide 29 mmol/ L 20-32 normal Not Available [address], [address], 10/28/2023 12:00:17 10/27/19 24 10/28/2023 COMPR EHENS EDOUARD METAB OLIC PANEL calcium 9.3 mg/dL 8.6-10 .4 normal Not Available [address], [address], 10/28/2023 12:00:10/27/19 24 10/28/2023 COMPR EHENS EDOUARD METAB OLIC PANEL protein, total 6.7 g/dL 6.1-8. 1 normal Not Available [address], [address], 10/28/2023 12:00:10/27/1910/28/2023 COMPR EHENS EDOUARD METAB OLIC PANEL albumin 3.9 g/dL 3.6-5. 1 normal Not Available [address], [address], 10/28/2023 12:00:17 10/27/1910/28/2023 COMPR EHENS EDOUARD METAB OLIC PANEL globulin 2.8 g/dL_ (calc ) 1.9-3. 7 normal Not Available [address], [address], 10/28/2023 12:00:17 10/27/19 24 10/28/2023 COMPR EHENS EDOUARD METAB OLIC PANEL albumin/glob ulin ratio 1.4 (calc ) 1.0-2. 5 normal Not Available [address], [address], 10/28/2023 12:00:10/27/1910/28/2023 COMPR EHENS EDOUARD METAB OLIC PANEL bilirubin, total 0.3 mg/dL 0.2-1. 2 normal Not Available [address], [address], 10/28/2023 12:00:10/27/1910/28/2023 COMPR EHENS EDOUARD METAB OLIC PANEL alkaline phosphatase 72 U/L 37-153 normal Not Available [address], [address], 10/28/2023 12:00:17 10/27/19 24 10/28/2023 COMPR EHENS EDOUARD METAB OLIC PANEL AST 12 U/L 10-35 normal Not Available [address], [address], 10/28/2023 12:00:17 10/27/19 24 10/28/2023 COMPR EHENS EDOUARD METAB OLIC PANEL ALT 10 U/L 6-29 normal Not Available [address], [address], 10/28/2023 12:00:17 10/27/19 24 10/28/2023 CBC (INCL UDES DIFF/ PLT) white blood cell count 6.0 thous and/u L 3.8-10 .8 normal Not Available [address], [address], 10/28/2023 07:02:40 10/27/19 24 10/28/2023 CBC (INCL UDES DIFF/ PLT) red blood cell count 4.10 ismael on/uL 3.80-5 .10 normal Not Available [address], [address], 10/28/2023 07:02:40 10/27/19 24 10/28/2023 CBC (INCL UDES DIFF/ PLT) hemoglobin 11.6 g/dL 11.7-1 5.5 low Not Available [address], [address], 10/28/2023 07:02:40 10/27/19 24 10/28/2023 CBC (INCL UDES DIFF/ PLT) hematocrit 36.0 % 35.0-4 5.0 normal Not Available [employer] [address], [address], 10/28/2023 07:02:40 10/27/19 24 10/28/2023 CBC (INCL UDES DIFF/ PLT) MCV 87.8 fL 80.0-1 00.0 normal Not Available [address], [address], 10/28/2023 07:02:40 10/27/19 24 10/28/2023 CBC (INCL UDES DIFF/ PLT) MCH 28.3 pg 27.0-3 3.0 normal Not Available [address], [address], 10/28/2023 07:02:40 10/27/19 24 10/28/2023 CBC (INCL UDES DIFF/ PLT) MCHC 32.2 g/dL 32.0-3 6.0 normal Not Available [address], [address], 10/28/2023 07:02:40 10/27/19 24 10/28/2023 CBC (INCL UDES DIFF/ PLT) RDW 13.8 % 11.0-1 5.0 normal Not Available [address], [address], 10/28/2023 07:02:40 10/27/19 24 10/28/2023 CBC (INCL UDES DIFF/ PLT) platelet count 166 thous and/u L 140-40 0 normal Not Available [address], [address], 10/28/2023 07:02:40 10/27/19 24 10/28/2023 CBC (INCL UDES DIFF/ PLT) MPV 11.7 fL 7.5-12 .5 normal Not Available [address], [address], 10/28/2023 07:02:40 10/27/19 24 10/28/2023 CBC (INCL UDES DIFF/ PLT) absolute neutrophils 3294 cells /uL 1500-7 800 normal Not Available [address], [address], 10/28/2023 07:02:40 10/27/19 24 10/28/2023 CBC (INCL UDES DIFF/ PLT) absolute lymphocytes 2118 cells /uL 850-39 00 normal Not Available [address], [address], 10/28/2023 07:02:40 10/27/19 24 10/28/2023 CBC (INCL UDES DIFF/ PLT) absolute monocytes 468 cells /uL 200-95 0 normal Not Available [address], [address], 10/28/2023 07:02:40 10/27/19 24 10/28/2023 CBC (INCL UDES DIFF/ PLT) absolute eosinophils 78 cells /uL 15-500 normal Not Available [address], [address], 10/28/2023 07:02:40 10/27/19 24 10/28/2023 CBC (INCL UDES DIFF/ PLT) absolute basophils 42 cells /uL 0-200 normal Not Available [address], [address], 10/28/2023 07:02:40 10/27/19 24 10/28/2023 CBC (INCL UDES DIFF/ PLT) neutrophils 54.9 % normal Not Available [address], [address], 10/28/2023 07:02:40 10/27/19 24 10/28/2023 CBC (INCL UDES DIFF/ PLT) lymphocytes 35.3 % normal Not Available [address], [address], 10/28/2023 07:02:40 10/27/19 24 10/28/2023 CBC (INCL UDES DIFF/ PLT) monocytes 7.8 % normal Not Available [address], [address], 10/28/2023 07:02:40 10/27/19 24 10/28/2023 CBC (INCL UDES DIFF/ PLT) eosinophils 1.3 % normal Not Available [address], [address], 10/28/2023 07:02:40 10/27/19 24 10/28/2023 CBC (INCL UDES DIFF/ PLT) basophils 0.7 % normal Not Available [address], [address], 10/28/2023 07:02:40 10/27/19 24 10/28/2023 TSH TSH 0.65 mIU/L normal Refer ence Range > or = 20 Years 0.40- 4.50 Pregn jabari Range s First trime ster 0.26- 2.66 Secon d trime ster 0.55- 2.73 Third trime ster 0.43- 2.91 Not Available [address], [address], 10/28/2023 08:33:35 10/27/19 24 10/28/2023 VITAM IN D,25- OH,TO MINA,I A vitamin D,25-oh,tota l,ia 65 NG/mL 30-100 [...] /MS is recom jana d: order code 71385 (saloni ents >2yrs ). See Note 1 Note 1 For addit ional infor jose fleming refer to http: //[facility] jeb Rossia ralf ics.c om/fa q/FAQ 199 (This link is being provi ded for infor sea rizvi/ educa william l purpo ses only. ) Not Available [facility] [address] , [place], [address], 10/28/2023 08:33:36 10/27/19 24 10/28/2023 HEMOG LOBIN [...] valid ation testi ng condu cted at [employer] , the [employer] [employer] or[facility] relat edouard to the [employer] t [employer] orm had an avera ge incre ase in HbA1c value of < or = 0.3%. This diffe rence is withi n accep yann varia bilit y estab lishe d by the Natio nal [employer] hemog lobin Stand pinaz ation Progr am. Note that not all indiv idual s will have had a shift in their resul ts and direc t sandy rison s betwe en histo rical and curre nt resul ts for testi ng condu cted on diffe rent platf orms is not recom jana d. Not Available [address], [address], 10/28/2023 05:49:48 11/21/1911/22/2023 COMPR EHENS EDOUARD METAB OLIC PANEL glucose 199 mg/dL 65-99 high Fasti ng refer ence inter juan For someo ne witho ut known diabe nathalie, a gluco se value >125 mg/dL indic ates that they may have diabe nathalie and this shoul d be confi rmed with a follo w-up test. Not Available [address], [address], 11/22/2023 06:40:41 11/21/19 24 11/22/2023 COMPR EHENS EDOUARD METAB OLIC PANEL urea nitrogen (BUN) 18 mg/dL 7-25 normal Not Available [address], [address], 11/22/2023 06:40:41 11/21/19 24 11/22/2023 COMPR EHENS EDOUARD METAB OLIC PANEL creatinine 0.88 mg/dL 0.50-1 .03 normal Not Available [address], [address], 11/22/2023 06:40:41 11/21/19 24 11/22/2023 COMPR EHENS EDOUARD METAB OLIC PANEL eGFR 78 mL/mi n/1.7 3m2 > or = 60 normal Not Available [address], [address], 11/22/2023 06:40:41 11/21/19 24 11/22/2023 COMPR EHENS EDOUARD METAB OLIC PANEL BUN/creatini ne ratio SEE NOTE: (calc ) 6-22 Not Repor yann: BUN and Creat inine are withi n refer ence range . Not Available [address], [address], 11/22/2023 06:40:41 11/21/19 24 11/22/2023 COMPR EHENS EDOUARD METAB OLIC PANEL sodium 137 mmol/ L 135-14 6 normal Not Available [address], [address], 11/22/2023 06:40:41 11/21/19 24 11/22/2023 COMPR EHENS EDOUARD METAB OLIC PANEL potassium 4.3 mmol/ L 3.5-5. 3 normal Not Available [address], [address], 11/22/2023 06:40:41 11/21/19 24 11/22/2023 COMPR EHENS EDOUARD METAB OLIC PANEL chloride 105 mmol/ L 98-110 normal Not Available [address], [address], 11/22/2023 06:40:41 11/21/19 24 11/22/2023 COMPR EHENS EDOUARD METAB OLIC PANEL carbon dioxide 27 mmol/ L 20-32 normal Not Available [address], [address], 11/22/2023 06:40:41 11/21/19 24 11/22/2023 COMPR EHENS EDOUARD METAB OLIC PANEL calcium 9.4 mg/dL 8.6-10 .4 normal Not Available [address], [address], 11/22/2023 06:40:41 11/21/19 24 11/22/2023 COMPR EHENS EDOUARD METAB OLIC PANEL protein, total 6.9 g/dL 6.1-8. 1 normal Not Available [address], [address], 11/22/2023 06:40:41 11/21/1911/22/2023 COMPR EHENS EDOUARD METAB OLIC PANEL albumin 4.2 g/dL 3.6-5. 1 normal Not Available [address], [address], 11/22/2023 06:40:41 11/21/1911/22/2023 COMPR EHENS EDOUARD METAB OLIC PANEL globulin 2.7 g/dL_ (calc ) 1.9-3. 7 normal Not Available [address], [address], 11/22/2023 06:40:41 11/21/1911/22/2023 COMPR EHENS EDOUARD METAB OLIC PANEL albumin/glob ulin ratio 1.6 (calc ) 1.0-2. 5 normal Not Available [address], [address], 11/22/2023 06:40:41 11/21/1911/22/2023 COMPR EHENS EDOUARD METAB OLIC PANEL bilirubin, total 0.3 mg/dL 0.2-1. 2 normal Not Available [address], [address], 11/22/2023 06:40:41 11/21/1911/22/2023 COMPR EHENS EDOUARD METAB OLIC PANEL alkaline phosphatase 85 U/L 37-153 normal Not Available [address], [address], 11/22/2023 06:40:41 11/21/19 24 11/22/2023 COMPR EHENS EDOUARD METAB OLIC PANEL AST 22 U/L 10-35 normal Not Available [address], [address], 11/22/2023 06:40:41 11/21/19 24 11/22/2023 COMPR EHENS EDOUARD METAB OLIC PANEL ALT 21 U/L 6-29 normal Not Available [address], [address], 11/22/2023 06:40:41 11/21/19 24 11/22/2023 CBC (INCL UDES DIFF/ PLT) white blood cell count 6.7 thous and/u L 3.8-10 .8 normal Not Available [address], [address], 11/22/2023 11:03:53 11/21/1911/22/2023 CBC (INCL UDES DIFF/ PLT) red blood cell count 4.19 ismael on/uL 3.80-5 .10 normal Not Available [address], [address], 11/22/2023 11:03:53 11/21/19 24 11/22/2023 CBC (INCL UDES DIFF/ PLT) hemoglobin 11.9 g/dL 11.7-1 5.5 normal Not Available [address], [address], 11/22/2023 11:03:53 11/21/19 24 11/22/2023 CBC (INCL UDES DIFF/ PLT) hematocrit 37.3 % 35.0-4 5.0 normal Not Available [address], [address], 11/22/2023 11:03:53 11/21/19 24 11/22/2023 CBC (INCL UDES DIFF/ PLT) MCV 89.0 fL 80.0-1 00.0 normal Not Available [address], [address], 11/22/2023 11:03:53 11/21/19 24 11/22/2023 CBC (INCL UDES DIFF/ PLT) MCH 28.4 pg 27.0-3 3.0 normal Not Available [address], [address], 11/22/2023 11:03:53 11/21/19 24 11/22/2023 CBC (INCL UDES DIFF/ PLT) MCHC 31.9 g/dL 32.0-3 6.0 low For adult s, a sligh t decre ase in the calcu lated MCHC value (in the range of 30 to 32 g/dL) is most likel y not clini sreekanth signi fican t; trenaev er, it shoul d be inter prete d with cauti on in corre latio n with other red cell julianne eters and the patie nt's clini luna condi tion. Not Available [address], [address], 11/22/2023 11:03:53 11/21/19 24 11/22/2023 CBC (INCL UDES DIFF/ PLT) RDW 13.7 % 11.0-1 5.0 normal Not Available [address], [address], 11/22/2023 11:03:53 11/21/19 24 11/22/2023 CBC (INCL UDES DIFF/ PLT) platelet count 194 thous and/u L 140-40 0 normal Not Available [employer] [address], [address], 11/22/2023 11:03:53 11/21/19 24 11/22/2023 CBC (INCL UDES DIFF/ PLT) MPV 11.4 fL 7.5-12 .5 normal Not Available [address], [address], 11/22/2023 11:03:53 11/21/19 24 11/22/2023 CBC (INCL UDES DIFF/ PLT) absolute neutrophils 3363 cells /uL 1500-7 800 normal Not Available [employer] [address] [place], [address], 11/22/2023 11:03:53 11/21/1911/22/2023 CBC (INCL UDES DIFF/ PLT) absolute lymphocytes 2734 cells /uL 850-39 00 normal Not Available [facility] [address], [address], 11/22/2023 11:03:53 11/21/1911/22/2023 CBC (INCL UDES DIFF/ PLT) absolute monocytes 476 cells /uL 200-95 0 normal Not Available [facility] [address], [address], 11/22/2023 11:03:53 11/21/1911/22/2023 CBC (INCL UDES DIFF/ PLT) absolute eosinophils 80 cells /uL 15-500 normal Not Available [facility] [address], [address], 11/22/2023 11:03:53 11/21/19 24 11/22/2023 CBC (INCL UDES DIFF/ PLT) absolute basophils 47 cells /uL 0-200 normal Not Available [facility] [address], [address], 11/22/2023 11:03:53 11/21/19 24 11/22/2023 CBC (INCL UDES DIFF/ PLT) neutrophils 50.2 % normal Not Available [facility] [address], [address], 11/22/2023 11:03:53 11/21/1911/22/2023 CBC (INCL UDES DIFF/ PLT) lymphocytes 40.8 % normal Not Available [facility] [address], [address], 11/22/2023 11:03:53 11/21/19 24 11/22/2023 CBC (INCL UDES DIFF/ PLT) monocytes 7.1 % normal Not Available [facility] [address] [place], [address], 11/22/2023 11:03:53 11/21/19 24 11/22/2023 CBC (INCL UDES DIFF/ PLT) eosinophils 1.2 % normal Not Available [facility] [address] [address] [place], [address], 11/22/2023 11:03:53 11/21/19 24 11/22/2023 CBC (INCL UDES DIFF/ PLT) basophils 0.7 % normal Not Available [facility] [address] [address] [place], [address], 11/22/2023 11:03:53 11/21/19 24 11/22/2023 HEMOG LOBIN [...] diabe nathalie for child divya. Not Available [facility] [address] [address] [place], [address], 11/22/2023 02:10:04 12/19/19 24 12/20/2023 IRON, TOTAL iron, total 47 mcg/d L 45-160 normal Not Available [facility] [address] [address] [place], [address], 12/20/2023 08:43:29 12/19/19 24 12/20/2023 COMPR EHENS EDOUARD METAB OLIC PANEL glucose 147 mg/dL 65-99 high Fasti ng refer ence inter juan For someo ne witho ut known diabe nathalie, a gluco se value >125 mg/dL indic ates that they may have diabe nathalie and this shoul d be confi rmed with a follo w-up test. Not Available [address], [address], 12/20/2023 08:43:30 12/19/19 24 12/20/2023 COMPR EHENS EDOUARD METAB OLIC PANEL urea nitrogen (BUN) 19 mg/dL 7-25 normal Not Available [address], [address], 12/20/2023 08:43:30 12/19/19 24 12/20/2023 COMPR EHENS EDOUARD METAB OLIC PANEL creatinine 0.77 mg/dL 0.50-1 .03 normal Not Available [address], [address], 12/20/2023 08:43:30 12/19/19 24 12/20/2023 COMPR EHENS EDOUARD METAB OLIC PANEL eGFR 92 mL/mi n/1.7 3m2 > or = 60 normal Not Available [address], [address], 12/20/2023 08:43:30 12/19/19 24 12/20/2023 COMPR EHENS EDOUARD METAB OLIC PANEL BUN/creatini ne ratio SEE NOTE: (calc ) 6-22 Not Repor yann: BUN and Creat inine are withi n refer ence range . Not Available [address], [address], 12/20/2023 08:43:30 12/19/19 24 12/20/2023 COMPR EHENS EDOUARD METAB OLIC PANEL sodium 141 mmol/ L 135-14 6 normal Not Available [address] [place], [address], 12/20/2023 08:43:30 12/19/19 24 12/20/2023 COMPR EHENS EDOUARD METAB OLIC PANEL potassium 4.4 mmol/ L 3.5-5. 3 normal Not Available [address], [address], 12/20/2023 08:43:30 12/19/19 24 12/20/2023 COMPR EHENS EDOUARD METAB OLIC PANEL chloride 102 mmol/ L 98-110 normal Not Available [address], [address], 12/20/2023 08:43:30 12/19/19 24 12/20/2023 COMPR EHENS EDOUARD METAB OLIC PANEL carbon dioxide 31 mmol/ L 20-32 normal Not Available [address], [address], 12/20/2023 08:43:30 12/19/19 24 12/20/2023 COMPR EHENS EDOUARD METAB OLIC PANEL calcium 9.0 mg/dL 8.6-10 .4 normal Not Available [address], [address], 12/20/2023 08:43:30 12/19/19 24 12/20/2023 COMPR EHENS EDOUARD METAB OLIC PANEL protein, total 6.4 g/dL 6.1-8. 1 normal Not Available [address], [address], 12/20/2023 08:43:30 12/19/19 24 12/20/2023 COMPR EHENS EDOUARD METAB OLIC PANEL albumin 3.7 g/dL 3.6-5. 1 normal Not Available [address], [address], 12/20/2023 08:43:30 12/19/19 24 12/20/2023 COMPR EHENS EDOUARD METAB OLIC PANEL globulin 2.7 g/dL_ (calc ) 1.9-3. 7 normal Not Available [address], [address], 12/20/2023 08:43:30 12/19/19 24 12/20/2023 COMPR EHENS EDOUARD METAB OLIC PANEL albumin/glob ulin ratio 1.4 (calc ) 1.0-2. 5 normal Not Available [address], [address], 12/20/2023 08:43:30 12/19/19 24 12/20/2023 COMPR EHENS EDOUARD METAB OLIC PANEL bilirubin, total 0.4 mg/dL 0.2-1. 2 normal Not Available [address], [address], 12/20/2023 08:43:30 12/19/19 24 12/20/2023 COMPR EHENS EDOUARD METAB OLIC PANEL alkaline phosphatase 78 U/L 37-153 normal Not Available [address], [address], 12/20/2023 08:43:30 12/19/19 24 12/20/2023 COMPR EHENS EDOUARD METAB OLIC PANEL AST 15 U/L 10-35 normal Not Available [address], [address], 12/20/2023 08:43:30 12/19/19 24 12/20/2023 COMPR EHENS EDOUARD METAB OLIC PANEL ALT 12 U/L 6-29 normal Not Available [address], [address], 12/20/2023 08:43:30 12/19/19 24 12/20/2023 CBC (INCL UDES DIFF/ PLT) white blood cell count 6.5 thous and/u L 3.8-10 .8 normal Not Available [address], [address], 12/20/2023 08:43:31 12/19/19 24 12/20/2023 CBC (INCL UDES DIFF/ PLT) red blood cell count 4.25 ismael on/uL 3.80-5 .10 normal Not Available [address], [address], 12/20/2023 08:43:31 12/19/19 24 12/20/2023 CBC (INCL UDES DIFF/ PLT) hemoglobin 12.2 g/dL 11.7-1 5.5 normal Not Available [address], [address], 12/20/2023 08:43:31 12/19/19 24 12/20/2023 CBC (INCL UDES DIFF/ PLT) hematocrit 37.4 % 35.0-4 5.0 normal Not Available [address], [address], 12/20/2023 08:43:31 12/19/19 24 12/20/2023 CBC (INCL UDES DIFF/ PLT) MCV 88.0 fL 80.0-1 00.0 normal Not Available [address], [address], 12/20/2023 08:43:31 12/19/19 24 12/20/2023 CBC (INCL UDES DIFF/ PLT) MCH 28.7 pg 27.0-3 3.0 normal Not Available [address], [address], 12/20/2023 08:43:31 12/19/19 24 12/20/2023 CBC (INCL UDES DIFF/ PLT) MCHC 32.6 g/dL 32.0-3 6.0 normal For adult s, a sligh t decre ase in the calcu lated MCHC value (in the range of 30 to 32 g/dL) is most likel y not clini sreekanth signi benson t; felecia er, it shoul d be inter prete d with cauti on in corre latio n with other red cell julianne eters and the patie nt's clini luna condi tion. Not Available [address], [address], 12/20/2023 08:43:31 12/19/19 24 12/20/2023 CBC (INCL UDES DIFF/ PLT) RDW 12.7 % 11.0-1 5.0 normal Not Available [facility] [address], [address], 12/20/2023 08:43:31 12/19/19 24 12/20/2023 CBC (INCL UDES DIFF/ PLT) platelet count 171 thous and/u L 140-40 0 normal Not Available [address], [address], 12/20/2023 08:43:31 12/19/19 24 12/20/2023 CBC (INCL UDES DIFF/ PLT) MPV 11.0 fL 7.5-12 .5 normal Not Available [address], [address], 12/20/2023 08:43:31 12/19/19 24 12/20/2023 CBC (INCL UDES DIFF/ PLT) absolute neutrophils 3471 cells /uL 1500-7 800 normal Not Available [facility] [address], [address], 12/20/2023 08:43:31 12/19/19 24 12/20/2023 CBC (INCL UDES DIFF/ PLT) absolute lymphocytes 2275 cells /uL 850-39 00 normal Not Available [address], [address], 12/20/2023 08:43:31 12/19/19 24 12/20/2023 CBC (INCL UDES DIFF/ PLT) absolute monocytes 592 cells /uL 200-95 0 normal Not Available [address], [address], 12/20/2023 08:43:31 12/19/19 24 12/20/2023 CBC (INCL UDES DIFF/ PLT) absolute eosinophils 111 cells /uL 15-500 normal Not Available [address], [address], 12/20/2023 08:43:31 12/19/19 24 12/20/2023 CBC (INCL UDES DIFF/ PLT) absolute basophils 52 cells /uL 0-200 normal Not Available [address], [address], 12/20/2023 08:43:31 12/19/19 24 12/20/2023 CBC (INCL UDES DIFF/ PLT) neutrophils 53.4 % normal Not Available [address], [address], 12/20/2023 08:43:31 12/19/19 24 12/20/2023 CBC (INCL UDES DIFF/ PLT) lymphocytes 35.0 % normal Not Available [address], [address], 12/20/2023 08:43:31 12/19/19 24 12/20/2023 CBC (INCL UDES DIFF/ PLT) monocytes 9.1 % normal Not Available [address], [address], 12/20/2023 08:43:31 12/19/19 24 12/20/2023 CBC (INCL UDES DIFF/ PLT) eosinophils 1.7 % normal Not Available [address], [address], 12/20/2023 08:43:31 12/19/19 24 12/20/2023 CBC (INCL UDES DIFF/ PLT) basophils 0.8 % normal Not Available [facility] [address] [address], [place], [address], 12/20/2023 08:43:31 04/29/19 15 04/23/2014 imagi ng/di agnos tic resul t No observ ation record ed. [email or web address] Not Available 2023 12:22:15 05/27/19 25 05/26/2024 XR, knee No observ ation record ed. [address], [place], [address], 05/26/2024 15:15:54 05/27/19 25 05/26/2024 XR, tibia + fibul a, 2 view No observ ation record ed. [address], [place], [address], 05/31/2024 12:53:25 Result Notes Documentation Provider Name and Address Organization Details Recorded Time Noninvasive Colorectal Cancer Dna + Occult Blood Screening, Ql, Stool : Negative Radha Robert [place] null, [place] - [facility] 02/11/2024 16:33:46 Problems Name Problem SNOMED Code Status Onset Date Resolution Date Notes Provider Name and Address Organization Details Recorded Time Anemia 377523447 Active Zahida Austill [place] [facility] 4 12:22:11 Liver function tests outside reference range 258002614 Active Zahida [place] [facility] 4 12:22:11 Acute sinusitis 25558274 Active Zahida [place] [facility] 4 12:22:11 Rheumatism 560813362 Active 2023 Tri Gonzales RN [place], [place] [facility] 4 17:01:20 Essential hypertension 64694183 Active Zahida [place] [facility] 4 12:22:11 Mixed anxiety and depressive disorder 095800090 Active Zahida [place] [facility] 4 12:22:11 Diabetes mellitus 53172089 Active endo-D r.Sand hu Zahida Austill [place], [place] [facility] 4 12:22:11 Chronic back pain 203784033 Active RUTH Moody - [facility] 4 12:22:11 Problem Notes None recorded. Procedures Surgical History None recorded. Imaging Results Imaging Date Name Status LastModified by Organiz ation Details LastModified Time 04/23/2014 imaging/diag nostic result completed [email or web address] Information not available 06/29/2023 12:22:15 05/26/2024 XR, knee completed [address], [address], 05/26/2024 15:15:54 05/26/2024 XR, tibia + fibula, [address], [place], [address], 05/31/2024 12:53:25 Procedure Notes None recorded. Medical Equipment None Reported. Allergies Allergen ID Allergen Name Allergen Category Reaction Reaction Severity Criticality Documentation Date Start Date Code Code System Note Provider Name and Address Organization Details Recorded Time 777461 atenolol medicatio n Not available Not available Not available 06/25/2023 1202 RxNorm PVC's Not Available Not Available Not Available 900998 Celebrex medicatio n Not available Not available Not available 08/18/2023 77254 7 RxNorm GI upset Not Available Not [...] completed Not Available Not Available Not Available [employer] XR Ultra Test strips USE TO TEST BLOOD SUGAR LEVELS THREE TIMES DAILY active Not Available Not Available No t Available amlodipin e 10 mg tablet TAKE 1 TABLET BY MOUTH DAILY active Not Available Not Available No t Available doxycycli ne monohydra te 100 mg capsule TAKE 1 CAPSULE BY MOUTH TWICE DAILY FOR 10 DAYS active Not Available Not Available No t Available hydrocodo ne 7.5 mg-acetam inophen 325 [...] HOURS NEEDED FOR SHORTNES S OF BREATH OR WHEEZING active Not Available Not Available No [...] lispro (U-100) 100 unit/mL subcutane ous pen ADMINIST ER 50 UNITS UNDER THE SKIN THREE TIMES DAILY BEFORE MEALS active Not Available Not Available No t Available escitalop bakari 10 mg tablet TAKE 1 TABLET BY MOUTH EVERY DAY active Not Available Not Available No t Available escitalop bakari 20 mg tablet TAKE [...] Not Available Not Available No t Available [employer] Ultra2 Meter kit use as directed to [...] iron) tablet TAKE 1 TABLET BY MOUTH TWICE [...] Available [employer] Pen Needle 32 gauge x USE THREE TIMES DAILY WITH INSULIN active [...] Not Available Not Available No t Available [facility] COVID-19 Antigen Rapid Home Test kit USE NEEDED active Not Available Not Available No t Available Vitals Date Recorded Body height Body mass index (BMI) Body weight Respiratory rate Body temperature Oxygen saturation Oxygen saturation in Arterial blood by Pulse oximetry Heart rate Systolic blood pressure Diastolic blood pressure Provider Name and Address Organization Details Last Updated DateTime 4 165.1 cm 37.6 kg/m2 846757. 58 g 16 /min 98.3 [degF] 99 % 99 % 84 /min 115 mm[Hg] 79 mm[Hg] Nina Servin MA [facility] 4 12:06:27 Date Recorded Respiratory rate Oxygen saturation Oxygen saturation in Arterial blood by Pulse oximetry Body weight Heart rate Body mass index (BMI) Body height Body temperature Systolic blood pressure Diastolic blood pressure Provider Name and Address Organization Details Last Updated DateTime 5 12 /min 100 % 100 % 51741.1 28246 g 88 /min 35.9 kg/m2 165.1 cm 98.3 [degF] 120 mm[Hg] 74 mm[Hg] Zahida Daley [facility] 4 12:22:11 Date Recorded Respiratory rate Body weight Heart rate Body mass index (BMI) Body height Body temperature Systolic blood pressure Diastolic blood pressure Provider Name and Address Organization Details Last Updated DateTime 4 16 /min 15642.9 96814 g 86 /min 36.4 kg/m2 165.1 cm 98.4 [degF] 124 mm[Hg] 82 mm[Hg] Zahida Daley [facility] 12:22:11 Social History Question Answer Notes LastModified by Organizat ion Details LastModified Time Tobacco Smoking Status Former Smoker quit in 1999 OCTAVIO Harmon, [facility] 06/25/2023 12:00:23 Do You Have An Advance [...] not available 06/25/2023 What Is Your Occupation? [employer] Information not available 06/25/2023 Are There Any [...] Anxious, Or Unable To Sleep At Night)? [id number] Information not available 06/25/2023 Do You Use [...] or Bladder Problems N GI Problems N Blood Clots N COPD N Depression N Skin Problems N Eating Disorder N Anemia Y Heart Attack (IA) N Anxiety Disorder N Diabetes Y Muscle, Joint, or Bone Problems Y Arthritis Y Seizures/Epilepsy N Acid Reflux (GERD) Y Cancer N Stroke N Asthma N Allergies N ADHD N Substance Abuse N High Cholesterol Y Hepatitis N Liver Disease N Headaches Y Schizophrenia N Osteoporosis N Heart Failure N Gynecological History Statement/Question Response Current Control Method Menopause LMP Approximate Obstetrics History GPAL:G 3 P 0 2 1 1 Type Value Induced 1 Premature 2 Living 1 Total 3 Immunizations Vaccine Type Date Status Note Provider Nam e and Address Organization Details Recorded Time Influenza, split virus, quadrivalent, preservative 7 completed Nina MiladysOCTAVIO link, [place] - [facility] 06/25/2023 11:57:02 Influenza, MDCK, quadrivalent, PF 2 completed Nina Servin [place] [facility] 06/25/2023 11:57:02 Influenza, recombinant, quadrivalent, PF 3 completed Nina Servin [place] [facility] 06/25/2023 11:57:02 zoster recombinant 3 completed Nina Servin [place] [facility] 06/25/2023 11:57:02 zoster recombinant 3 completed Nina Servin [place] [facility] 06/25/2023 11:57:02 COVID-19, mRNA, LNP-S, PF, 30 mcg/0.3 mL dose 1 completed Nina Servin [place] [facility] 06/25/2023 11:57:02 COVID-19, mRNA, LNP-S, PF, 30 mcg/0.3 mL dose 1 completed Nina Servin [place] [facility] 06/25/2023 11:57:02 COVID-19, mRNA, LNP-S, PF, 30 mcg/0.3 mL dose, syed-sucrose 2 completed Nina Servin [place] [facility] 06/25/2023 11:57:02 COVID-19, mRNA, LNP-S, bivalent, PF, 50 mcg/0.5 mL or 25mcg/0.25 mL dose 3 completed Nina Servin [place] [facility] 06/25/2023 11:57:02 COVID-19, mRNA, LNP-S, PF, 50 mcg/0.5 mL 3 completed Nina Servin [place] [facility] 06/25/2023 11:57:02 pneumococcal polysaccharide PPV23 1 completed Nina Servin [place] [facility] 06/25/2023 11:57:02 Tdap 0 completed Nina Servin [place] [facility] 06/25/2023 11:57:02 Influenza, split virus, trivalent, preservative 3 completed Nina Servin [place] [facility] 06/25/2023 11:57:02 Influenza, split virus, trivalent, preservative 2 completed Nina Servin [place] [facility] 06/25/2023 11:57:02 Influenza, split virus, trivalent, preservative 5 completed Nina Servin [place] [facility] 06/25/2023 11:57:02 Influenza, split virus, trivalent, PF 7 completed Nina Servin [place] [facility] 06/25/2023 11:57:02 Influenza, split virus, quadrivalent, PF 9 completed Nina Servin [place] [facility] 06/25/2023 11:57:02 Influenza, split virus, quadrivalent, PF 0 completed Nina Servin [place] [facility] 06/25/2023 11:57:02 Influenza, split virus, quadrivalent, PF 1 completed Nina Servin [place] [facility] 06/25/2023 11:57:02 Influenza, split virus, quadrivalent, PF 8 completed Nina Servin [place] [facility] 06/25/2023 11:57:02 Influenza, split virus, quadrivalent, PF 6 completed Nina Servin [place] [facility] 06/25/2023 11:57:02 Hep A-Hep B 2 completed Nina Servin [place] [facility] 06/25/2023 11:57:02 SARS-COV-2 (COVID-19) vaccine, UNSPECIFIED 4 completed Tri Gonzales RN [place], [place] [facility] 11/04/2023 12:08:14 influenza, unspecified formulation 4 completed Tri Gonzales RN [facility], [place] - [facility] 11/04/2023 12:10:02 Past Encounters Encounter ID Performer Location Encounter Start Date Encounter Closed Date Diagnosis/Indication Diagnosis SNOMED-CT Code Diagnosis ICD10 Code Diagnosis Note [id number] Zahida Hahugo [facility] (Adult Med) [address] [place] [id number] 01/23/2014 13:59:59 01/23/2014 15:00:09 Essential hypertension 81467038 continue same Mixed anxi ety and depressive disorder 872488410 Fair control due to noncomplia nt with med Restart Sertraline Diabetes mellitus 68349626 As per endo Will give Lantus and Novolog sample due to financial problem to buy meds Chronic back pain 328826834 [id number] Zahidakeith Daley [facility] (Adult Med) [address] [place] [id number] 04/24/2014 13:51:59 04/24/2014 15:34:43 Anemia 764355429 due to heavy bleeding-p t to see Manager Of Business ER records showed Hb-8.6 check iron panel ok to take Ferrous sulfate daily Liver func tion tests outside reference range 027405302 ALT -53, AST-104--- possibly fatty liver( pt denied alcohol use ) consider us liver in future Acute sinusitis [id number] MD Marc Kyle 14 IM 4 [facility] Dr Mims [address] [place] [phone] 06/25/2023 11:25:39 06/30/2023 15:15:30 Asthma [id number] J45.[address] Abdul at [place] Benign ess ential hypertension [id number] I10 on amlodipine and clonidine and nadolol Gastroesop hageal reflux disease [id number] K21.9 Type 2 tg betes mellitus [id number] E11.9 pt will be followed by Dr. Narvaez on insulin, metformin, and trulicity Rheumatoid arthritis 698 39277 M06.9 on hydroxychl oroquine, ibuprofen, and norco and prednisone prn; pt hopes that norco rx can be assumed here Vitamin D deficiency 347 57807 E55.9 Mixed anxi ety and depressive disorder [id number] F41.8 Dyslipidemia 068867616 E 78.5 Insomnia 504088410 G47.0 0 Under care of research leader [id number] Z76.89 Muscle tension pain 2790 44926 M79.10 on soma Screening for malignant neoplasm of colon [id number] Z12.11 pt had a recent cologuard done--it was negative Screening mammography 24 232585 Z12.31 UTD Health Concerns Section Related Observation LastModified by Organization Detai ls LastModified Time None Recorded Concern Status LastModified by Organization Details LastModified Time None Recorded Advance Directives Directive N: Payers Encounter Date Sequence Insurance Name Policy Number Policy Langston Covered Member ID Langston Member ID Guarantor Name 01/23/2014 SLIDING FEE SCHEDULE - DISCOUNT Regina Howell 04/24/2014 1 [place] [id number] Regina Hodges [id number] Regina Howell 06/25/2023 1 [facility] - DOS ON OR AFTER 20 (MEDICAID REPLACEMENT - HMO) Regina Howell [id number] Regina Howell Notes Date Note Type Note Provider Name and Address Organization Details Recorded Time 06/25/2023 text/html Pt presents in order to become established. Previous PCP has moved out of the area. No acute issues today. Crow Diane MD Attn: Accounting,[address] [place], [address], [facility] 06/30/2023 07:23:11 OBGyn Episode Ob Episode Information Episode Created Date Number of Fetuses Patient Bloodtype Patient rh Status Prepregnancy Weight lbs Domestic Partner Domestic Partner Phone Father Name Electric Motor Analyst Status 06/25/19 24 1 CLOSED Fetus Data First Name Last Name Admitted to NICU Weight (g) Sex Living Outcome Pediatric Complications Fetus ID Race Codes Race Delivery Type [id number] Benji Calculation Initial Benji Date Initial Exam [...] Domestic Partner Domestic Partner Phone Father Name Electric Motor Analyst Status 06/25/19 24 1 CLOSED Fetus Data First Name Last Name Admitted to NICU Weight (g) Sex Living Outcome Pediatric Complications Fetus ID Race Codes Race Delivery Type [id number] Benji Calculation Initial Benji Date Initial Exam [...] Post Complications Tubal Sterilization Discharge Date Comments 0 Discharge Information Feeding Method Contraceptive Method Maternal HG B and HCT Levels
--- OUTSIDE RECORDS SUMMARY | 2024-06-12 18:40 | XMS_ITS | CONTINUITY OF CARE DOCUMENT ---
Author Name lauren aguilar Address Unknown Organization [facility] Address [address] [place] [address] [address] [place] [address] Phone [phone] Care Team Providers Care Power Cutting Machine Operator Name Role Phone Rizwan DAVIS, Cary Unavailable [phone] [employer] MANAGER, DELORA Unavailable [phone] [employer] MANAGER, DELORA Unavailable PROBLEMS Condition Status Date Provider Notes Chest pain active Saul Lambros Tachycardia active Saul Lambros Anemia active Saul Lambros Shortness of breath (SOB) active Saul L ambros Diabetes mellitus active Saul Lambros Obesity active Saul Lambros HTN essential active Saul Lambros Hypertriglyceridemia active Saul Lambro s ENCOUNTERS Date Type Provider Location Encounter Diag nosis - In-person encounter Office Visit Cary Astorga MD [facility] - In-person encounter Office Visit Cary Astorga MD [facility] Chest painTachycardiaAnemiaShortness of breath (SOB)Diabetes mellitusObesityHTN [...] Maryana guzmánderrick pulse rate 97 /min Maryana Salgado lder weight E&M 241 [lb_av] Maryana Salgado [...] smoking history, tot al pack/day 1 ppd Marayna Hopenarcisarobertoderrick smoking, year quit 2003 Maryana quinn INSURANCE PROVIDERS Payer name Policy type / Coverage type Paramus red democrat ID [facility] [id number] ADVANCE DIRECTIVES Name Date DISCUSSED - NO DECISION MADE TREATMENT PLAN Date Name Performer [employer] infusio n at [place], F/up with me Dec 8 at 345p Cary Astorga MD [employer]eleschedule infusio n at [place], F/up with me Dec 8 at 345p Cary Astorga MD Teleschedule infusio n at [place], F/up with me Dec 8 at 345p Cary Astorga MD Teleschedule infusio n at [place], F/up with me Dec 8 at 345p Cary Astorga MD Teleschedule infusio n at [place], F/up with me Jan 8 at 345p Cary Astorga MD Teleschedule infusio n at [place], F/up with me Dec 8 at 345p [...]
--- NOTE | 2024-06-12 18:44 | ECG_ITS ---
Test Date: 2024-06-12 18:52:06 Measurements Intervals [place] Rate: 67 P: 3 [place]: 165 QRS: 38 QRSD: 96 T: 12 QT: 419 QTc: 445 Interpretive Statements SINUS RHYTHM LOW QRS VOLTAGE IN PRECORDIAL LEADS BORDERLINE T WAVE ABNORMALITY- INFERIOR LEADS BASELINE ARTIFACT- I, II, III, AVR, AVL, AVF, V1-V6 BORDERLINE ECG No previous ECG available for comparison Electronically Signed On 06-13-2024 06:12:47 CDT by Moisés Mckeon D.O.
[2024-06-12 19:31] LABS: Basophils Percent Auto 0.5 % (0.2-1.2); Eosinophils Absolute Auto 0.1 K/mm3 (0-0.3); Hematocrit 36.2 % (37.0-47.0); Hemoglobin 11.6 g/dL (12.0-15.0); Immature Granulocyte Absolute 0.02 K/mm3 (0.00-0.031); Immature Granulocyte Percent A 0.3 % (0-0.5); Lymphocytes Percent Auto 24.3 % (18.3-44.2); Mean Corpuscular Hemoglobin 28.2 pg (26-34); Mean Corpuscular Volume 88.1 fl (80-100); Mean Platelet Volume 10.9 fl (7.4-10.4); Monocytes Absolute Auto 0.6 K/mm3 (0.1-0.6); Monocytes Percent Auto 7.6 % (2.6-8.5); Neutrophils Absolute Auto 5.2 K/mm3 (1.3-6.7); Neutrophils Percent Auto 66.3 % (45.5-73.1); Platelet Count Result 158 k/mm3 (150-375); Red Blood Count 4.11 M/mm3 (4.2-5.4); Red Cell Distribution Width 13.6 % (11.5-14.5); White Blood Count 7.8 K/mm3 (4.5-10.0)
[2024-06-12 19:42] LABS: INR 1.1; Prothrombin Time 14.5 Seconds (11.1-14.7)
[2024-06-12 19:43] LABS: Partial Thromboplastin Time 32.9 Seconds (22.3-36.8)
[2024-06-12 19:48] LABS: Alanine Aminotransferase 23 U/L (6-35); Albumin Level 4.4 g/dL (3.5-5.1); Alkaline Phosphatase 69 U/L (38-126); Anion Gap 8 mmol/L (4-12); Aspartate Amino Transferase 25 U/L (14-36); Bilirubin,Total 0.6 mg/dL (0.2-1.3); Blood Urea Nitrogen 17 mg/dL (7-17); Calcium 9.2 mg/dL (8.4-10.2); Carbon Dioxide 31 mmol/L (22-30); Chloride 101 mmol/L (98-107); Estimated CRCL calculation 118 ml/min; Estimated Glomerular Filt Rate > 60; Glucose 252 mg/dL (65-110); Lipase 99 U/L (23-300); Potassium 3.3 mmol/L (3.4-5.0); Sodium 140 mmol/L (137-145)
[2024-06-12 20:00] LABS: Troponin I < 0.012 ng/mL (0.000-0.034)
--- OUTSIDE RECORDS SUMMARY | 2024-06-12 22:20 | XMS_ITS | Clinical Summary ---
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 HELPER Gender Identity Not on file Sexual Orientation [...] Comments LIPID PANEL Routine 01/12/2023 7:51 AM ADOBE LAYER HELPER from Last 3 Months or Most Recently Relevant to Health Maintenance Results * (ABNORMAL) Lipid panel (01/12/2023 7:51 AM ADOBE LAYER HELPER) SCRIBED Cholesterol, Total 122 0 - 200 EXTERNAL LAB SCRIBED HDL 41 40 - 100 EXTERNAL LAB SCRIBED LDL 51 0 - 100 EXTERNAL LAB SCRIBED Triglycerides 253(A) 0 - 150 EXTERNAL LAB Blood 01/12/2023 7:51 AM ADOBE LAYER HELPER us Historical Provider LAB BLOOD ORDERABLES Aubree l Result EXTERNAL LAB from Last 3 Months or Most Recently Relevant to Health Maintenance Insurance [place] [employer] [facility] Care Teams Patrol Man Relationship Specialty Start Date End Date Carlos Wallace OFFICE AUDITOR PCP - General 06/04/20
--- OUTSIDE RECORDS SUMMARY | 2024-06-12 22:20 | XMS_ITS | Referral Summary ---
Author Organization [facility] Address [address] [place] [phone] Care Team Providers Care Graining Operator Name Role Phone Carlos Wallace NP Primary Care Provider [phone] Allergies Active Allergy Reactions Criticality Noted Date [...] on file Legal Sex Female 1:13 AM INSTRUCTOR DANCING Gender Identity Not on file Sexual Orientation [...] Comments LIPID PANEL Routine 01/12/2023 7:51 AM INSTRUCTOR DANCING from Last 3 Months or Most Recently Relevant to Health Maintenance Results * (ABNORMAL) Lipid panel (01/12/2023 7:51 AM INSTRUCTOR DANCING) SCRIBED Cholesterol, Total 122 0 - 200 EXTERNAL LAB SCRIBED HDL 41 40 - 100 EXTERNAL LAB SCRIBED LDL 51 0 - 100 EXTERNAL LAB SCRIBED Triglycerides 253(A) 0 - 150 EXTERNAL LAB Blood 01/12/2023 7:51 AM INSTRUCTOR DANCING us Historical Provider LAB BLOOD ORDERABLES Aubree l Result EXTERNAL LAB from Last 3 Months or Most Recently Relevant to Health Maintenance Insurance CHOICE PRF [place] [facility] Care Teams Graining Operator Relationship Specialty Start Date End Date Carlos Wallace NP PCP - General 06/04/20
--- NOTE | 2024-06-12 22:26 | ED.CHESTPAIN ---
HPI - Chest Pain General Chief Complaint: Chest Pain Stated Complaint: cp Time Seen by Provider: 06/12/24 21:45 Source: patient Mode of arrival: EMS Limitations: no limitations History of Present Illness HPI narrative: This is a 53-year-old female, with history of hypertension, LVH and diabetes followed by Cardiology, who presents emergency department complaining of bilateral lower extremity edema, shortness of breath for the past days and chest pain beginning today. The patient states she has bilateral lower leg swelling intermittently improves with Lasix normal complicated by episodes of hypokalemia. She describes the pain as dull, left sided without any radiation, aggravated by exertion. She denies loss of consciousness, bleeding and has no other complaints at this time. Related Data Home Medications ?Medication ?Instructions ?Recorded ?Confirmed ?Last Taken ?Type escitalopram oxalate 20 mg tablet 20 mg PO DAILY 01/11/20 06/03/23 09/20/22 History pregabalin 150 mg capsule 150 mg PO TID 01/11/20 06/03/23 09/21/22 History amlodipine 10 mg tablet 10 mg PO HS 12/05/20 06/03/23 09/21/22 History aspirin 81 mg capsule 81 mg PO HS 12/05/20 06/03/23 09/17/22 History carisoprodol 350 mg tablet 350 mg PO HS 12/05/20 06/03/23 09/21/22 History clonidine HCl 0.1 mg tablet 0.1 mg PO TID 12/05/20 06/03/23 09/22/22 History glimepiride 2 mg tablet 4 mg PO BID 12/05/20 06/03/23 09/21/22 History metformin 500 mg tablet,extended 1,000 mg PO BID 12/05/20 06/03/23 09/21/22 History release 24hr (osmotic) nadolol 80 mg tablet 80 mg PO TID 12/05/20 06/03/23 09/21/22 History rosuvastatin 40 mg tablet 40 mg PO WEEKLY 12/05/20 06/03/23 09/21/22 History albuterol sulfate 2.5 mg/3 mL 2.5 mg inhalation Q6H PRN 03/28/21 06/03/23 09/21/22 History (0.083 %) solution for nebulization Shortness Of Breath Or Wheezing ergocalciferol (vitamin D2) 1,250 1,250 mcg PO WEEKLY 03/28/21 06/03/23 09/19/22 History mcg (50,000 unit) capsule furosemide 20 mg tablet 10 mg PO QAM 03/28/21 06/03/23 09/15/22 History trazodone 50 mg tablet 50 mg PO QHS PRN Insomnia 03/28/21 06/03/23 09/21/22 History hydroxychloroquine 200 mg tablet 200 mg PO DAILY 09/12/22 06/03/23 09/21/22 History Afrin (oxymetazoline) 1 puff intranasal TID PRN 04/06/23 06/03/23 04/06/23 History Congestion ibuprofen 1,600 mg PO BID PRN Headache 04/06/23 06/03/23 Unknown History magnesium oxide 400 mg (241.3 mg 400 mg PO HS 04/06/23 06/03/23 Unknown History magnesium) tablet hydrocodone 5 mg-acetaminophen 325 20 - 325 tablet PO DAILY PRN Pain 06/03/23 06/03/23 Unknown History mg tablet Allergies Allergy/AdvReac Type Severity Reaction Status Date / Time atenolol Allergy Intermediate Chest Pain Verified 06/03/23 13:44 Review of Systems Review of Systems: All systems reviewed & are unremarkable except as noted in HPI and below PMFSH Past Medical History Medical History Dyspnea on exertion Pneumonia Rheumatoid arthritis (normal spontaneous vaginal delivery) x2 Status post hysteroscopy 2015 and 2020 Asthma Obesity Iron deficiency anemia Elective Anxiety and depression GERD (gastroesophageal reflux disease) HTN (hypertension) High triglycerides HLD (hyperlipidemia) Diabetes Surgical History Surgical History S/P endometrial ablation 2017 Family History Family History Mother Atrial fibrillation History of open heart surgery Family history of cataracts Hypertension Asthma Grandparent Family history of cardiovascular disease Family history of Alzheimer's disease Family history of coronary artery disease Heart murmur Sibling Heart murmur Social History Social History Smoking packs per day: 1 Smoking cigarettes per day: 20.0 Years smoked: 20 Smoking pack-years: 20.00 Smoking status: Former smoker Tobacco type: cigarettes Smoking end date: 02/16/02 Alcohol intake: never Substance use: never Substance use type: does not use Do You Feel Safe in your Home?: Yes Lack of Transportation: No Lack of Food: Never True Current Housing: I Have Housing Concerned About Future Housing: YES Difficulty Paying Gas/Electric Bills: No Difficulty Paying for Meds: No Currently Unemployed: No Education: High School Diploma/GED Difficulty w/ Childcare or Family Care: No Living arrangements: alone Gender identity (if verbalized by the patient): Female Spiritual care concerns: No Agree to blood products: Yes Exam Narrative: GENERAL: Well-developed, well-nourished, and in no acute distress. HEAD: Normocephalic, atraumatic. EYES: PERRLA and EOMI. NECK: Supple. No JVD CHEST: Clear to auscultation. No respiratory distress. No wheezes rales or rhonchi HEART: Regular rate and rhythm. No murmur heard. Normal peripheral pulses. ABDOMEN: Soft, nontender, nondistended, normal active bowel sounds. EXTREMITIES: Normal range of motion. Bilateral lower extremity edema 2+ extending to the knees SKIN: Warm, dry, no rash. NEURO: Alert and oriented x3. No focal deficit. Moving all 4 limbs spontaneously PSYCH: Normal mood and affect. Course Course Emergency Course: 23:00 - CBC demonstrates mild anemia with hemoglobin 11.6 but is otherwise unremarkable. Chemistries demonstrate a mild hypokalemia with potassium of 3.3 and elevated glucose of 252 but is otherwise unremarkable. Initial troponin negative. Chest x-ray not concerning for acute cardiopulmonary process an EKG not concerning for ischemia. Heart score 4. Considering the patient's previous history of LVH, I have increased concern for new onset CHF. 23:50 - I discussed the patient with hospitalist, FABIEN Callahan who discussed the patient with hospitalist, Dr. Cruz who accepts admission. Vital Signs Vital signs: Vital Signs Temperature 97.5 F L 06/12/24 18:44 Pulse Rate 69 06/12/24 18:44 Respiratory Rate 20 06/12/24 18:44 Blood Pressure 148/70 H 06/12/24 18:44 Pulse Oximetry 98 06/12/24 18:44 Temperature 97.5 F L 06/12/24 18:44 Pulse Rate 69 06/12/24 18:44 Respiratory Rate 20 06/12/24 18:44 Blood Pressure 148/70 H 06/12/24 18:44 Pulse Oximetry 98 06/12/24 22:38 Oxygen Delivery Room Air 06/12/24 22:38 MDM - Chest Pain MDM Narrative Medical decision making narrative: Plan: EKG, imaging, labs, troponin, pain control, reassess Differential Diagnosis Differential diagnosis: Likely atypical chest pain and other (ACS, new onset CHF, renal failure, metabolic abnormality, other) Lab Data 06/12/24 19:23 06/12/24 19:23 Labs: Lab Results 06/12/24 06/12/24 Range/Units 19:23 23:29 WBC 7.8 (4.5-10.0) K/mm3 RBC 4.11 L (4.2-5.4) M/mm3 Hgb 11.6 L (12.0-15.0) g/dL Hct 36.2 L (37.0-47.0) % MCV 88.1 (80-100) fl MCH 28.2 (26-34) pg MCHC 32.0 (32-36) g/dl RDW 13.6 (11.5-14.5) % Plt Count 158 (150-375) k/mm3 MPV 10.9 H (7.4-10.4) fl Immature Gran % (Auto) 0.3 (0-0.5) % Neut % (Auto) 66.3 (45.5-73.1) % Lymph % (Auto) 24.3 (18.3-44.2) % [place] % (Auto) 7.6 (2.6-8.5) % Eos % (Auto) 1.0 (0-4.4) % Baso % (Auto) 0.5 (0.2-1.2) % Lymph # (Auto) 1.90 (0.9-3.2) K/mm3 [place] # (Auto) 0.6 (0.1-0.6) K/mm3 Eos # (Auto) 0.1 (0-0.3) K/mm3 Baso # (Auto) 0.0 (0.0-0.1) K/mm3 Abs Immat Gran (auto) 0.02 (0.00-0.031) K/mm3 Absolute Neuts (auto) 5.2 (1.3-6.7) K/mm3 Absolute Nucleated RBC 0.000 (0.0-0.012) K/mm3 Nucleated RBC % 0.0 (0.0-0.2) % PT 14.5 (11.1-14.7) Seconds INR 1.1 APTT 32.9 (22.3-36.8) Seconds Sodium 140 (137-145) mmol/L Potassium 3.3 L (3.4-5.0) mmol/L Chloride 101 (98-107) mmol/L Carbon Dioxide 31 H (22-30) mmol/L Anion Gap 8 (4-12) mmol/L BUN 17 (7-17) mg/dL Creatinine 0.58 L (0.7-1.0) mg/dL Estim Creat Clear Calc 118 ml/min Estimated GFR > 60 (59 - ) Glucose 252 H (65-110) mg/dL Calcium 9.2 (8.4-10.2) mg/dL Total Bilirubin 0.6 (0.2-1.3) mg/dL AST 25 (14-36) U/L ALT 23 (6-35) U/L Alkaline Phosphatase 69 (38-126) U/L Troponin I < 0.012 (0.000-0.034) ng/mL Total Protein 8.0 (6.3-8.2) g/dL Albumin 4.4 (3.5-5.1) g/dL Lipase 99 (23-300) U/L Influenza A (RT-PCR) Pending Influenza B (RT-PCR) Pending SARS-CoV-2 RNA (RT-PCR) Pending ECG Data EKG #1: Attestation: I personally reviewed and interpreted this ECG as follows: ECG completion date: 06/12/24 ECG completion time: 18:52 Interpretation: Sinus rhythm, rate 67, normal axis, no ST segment elevations or T-wave inversions concerning for ischemia, normal intervals with QTC of 445. Compared to a Cardiology interpretation of EKG done in March 2023, there are no significant changes. I am unable to view the EKG for direct comparison due to technical difficulties. Discharge Plan Discharge Clinical Impression: PINEDO (dyspnea on exertion) Chest pain Qualifiers: Chest pain type: unspecified Qualified Code(s): R07.9 - Chest pain, unspecified Patient Disposition: Still a Patient Condition: Serious Patient Language: Portuguese Prescriptions: No Action furosemide 20 mg tablet 10 mg PO QAM trazodone 50 mg tablet 50 mg PO QHS PRN (Reason: Insomnia) albuterol sulfate 2.5 mg /3 mL (0.083 %) solution for nebulization 2.5 mg inhalation Q6H PRN (Reason: Shortness Of Breath Or Wheezing) ergocalciferol (vitamin D2) 1,250 mcg (50,000 unit) capsule 1,250 mcg PO WEEKLY Rx Instructions: Thursday fluticasone propion-salmeterol [Advair HFA] 230-21 mcg/actuation HFA aerosol inhaler 2 puff inhalation Q12HRT 30 Days Qty: 60 6RF escitalopram oxalate 20 mg tablet 20 mg PO DAILY pregabalin 150 mg capsule 150 mg PO TID carisoprodol 350 mg Tablet 350 mg PO HS clonidine HCl 0.1 mg Tablet 0.1 mg PO TID nadolol 80 mg Tablet 80 mg PO TID glimepiride 2 mg Tablet 4 mg PO BID amlodipine 10 mg Tablet 10 mg PO HS rosuvastatin 40 mg Tablet 40 mg PO WEEKLY Rx Instructions: take on metformin 500 mg Tablet Extended Release 24hr 1,000 mg PO BID aspirin 81 mg Capsule 81 mg PO HS hydrocodone-acetaminophen 5-325 mg tablet 20 - 325 tablet PO DAILY PRN (Reason: Pain) hydroxychloroquine 200 mg tablet 200 mg PO DAILY Afrin (oxymetazoline) 1 puff intranasal TID PRN (Reason: Congestion) ibuprofen 800 mg tablet 1,600 mg PO BID PRN (Reason: Headache) magnesium oxide 400 mg (241.3 mg magnesium) tablet 400 mg PO HS potassium chloride [K-Tab] 20 mEq Tablet Extended Release 20 meq PO HS Qty: 30 0RF doxycycline hyclate 100 mg Tablet 100 mg PO Q12HR Qty: 5 0RF amoxicillin-pot clavulanate 875-125 mg tablet 1 tablet PO Q12H Qty: 5 0RF insulin aspart U-100 [Novolog U-100 Insulin aspart] 100 unit/mL Solution 20 unit subcut TIDWM Qty: 0 0RF Follow-up/Referrals: [place],Crow Tang MD [Primary Care Provider] - Time of Disposition: 23:50
--- NOTE | 2024-06-12 22:29 | ECG_ITS ---
Test Date: 2024-06-12 22:50:51 Measurements Intervals [place] Rate: 68 P: 49 NM: 175 QRS: 38 QRSD: 94 T: 20 QT: 421 QTc: 450 Interpretive Statements SINUS RHYTHM MINIMAL Q WAVES- INFERIOR LEADS CONSIDER ANTERIOR INFARCT, AGE INDETERMINATE BASELINE ARTIFACT- I, II, III, AVR, AVL, AVF, V1-V6 ABNORMAL ECG Compared to ECG 06/12/2024 18:52:06 No significant changes Electronically Signed On 06-13-2024 06:18:36 CDT by Moisés Mckeon D.O.
[2024-06-13] VITALS (27 sets, daily range): BP systolic 124–194; BP diastolic 57–74; PULSE 58–76; RESP 15–22; TEMP 36.6–37.2; O2SAT 94–100; BMI 38.9
--- NOTE | 2024-06-13 | ECHO_ITS ---
Patient Info Name: Regina Howell Age: 53 years : 1970 Gender: Female Ht: 65 in Wt: 233 lbs BSA: 2.25 m2 HR: 66 bpm BP: 194 / 73 mmHg Technical Quality: Good Exam Date: 06/13/2024 2:24 PM Exam Location: Echo Lab Patient Status: Outpatient Admit Date: 06/12/2024 Staff Ordering Physician: Kade Lindsay MD Insurance Administrator: Evita Turner RDCS Attending Provider: Yvette Cruz DO Exam Type: CA echo doppler color flow Study Info Indications - CHF, Edema Complete two-dimensional, color flow and Doppler transthoracic echocardiogram is performed. Summary 1. Complete two-dimensional, color flow and Doppler transthoracic echocardiogram is performed. 2. Left ventricular systolic function is normal, estimated at 55-60%. 3. There is mild tricuspid valve regurgitation. 4. No pulmonary hypertension, estimated pulmonary arterial systolic pressure is 27 mmHg. Left Ventricle Left ventricular systolic function is normal, estimated at 55-60%. Left ventricular chamber dimension is normal. There is no increased left ventricular wall thickness. Left ventricular septal wall motion is normal. The left ventricular diastolic function is normal. Right Ventricle Right ventricular chamber dimension is normal. Right ventricular systolic function is normal. Left Atria Left atrial chamber dimension is normal. Right Atria Right atrial chamber dimension is normal. Aortic Valve The aortic valve is trileaflet. There is no aortic valve sclerosis. There is no aortic valve stenosis. There is no aortic valve regurgitation. Pulmonic Valve The pulmonic valve is normal. There is no pulmonic valve stenosis. There is no pulmonic regurgitation. Mitral Valve The mitral valve has normal leaflets. There is no mitral valve stenosis. There is no mitral valve regurgitation. Tricuspid Valve The tricuspid valve leaflets are normal. There is no significant tricuspid valve stenosis. There is mild tricuspid valve regurgitation. No pulmonary hypertension, estimated pulmonary arterial systolic pressure is 27 mmHg. Pericardium/Pleural The pericardium appears normal. There is no pericardial effusion. Inferior Vena Cava Not well visualized inferior vena cava with >50% collapse upon inspiration consistent with Empty right atrial pressure, 5 mmHg. Aorta The aortic root size at the sinus of Valsalva is normal. The prox ascending aorta size is normal. Left Ventricular Outflow Tract Name Value Normal LVOT Doppler LVOT Peak Gradient 9 mmHg LVOT Mean Gradient 5 mmHg LVOT VTI 35 cm LVOT VTI/AV VTI Ratio 0.7 Pulmonic Valve Name Value Normal PV Doppler PV Peak Gradient 7 mmHg Mitral Valve Name Value Normal MV Doppler MV Peak Gradient 10 mmHg MV Mean Gradient 4 mmHg MV Decel [place] 498 cm/s2 MV PHT 73 ms MV Area (PHT) 3.0 cm2 4.0-5.0 MV Diastolic Function MV E Peak Velocity 126 cm/s MV A Peak Velocity 126 cm/s MV E/A 1.0 MV Decel Time 252 ms MV Annular TDI MV E/e' (Septal) 16.6 <=8.0 MV E/e' (Lateral) 12.8 <=8.0 MV E/e' (Average) 14.7 Tricuspid Valve Name Value Normal TV Regurgitation Doppler TR Peak Velocity 236 cm/s TR Peak Gradient 22 mmHg Estimated PAP/RSVP RA Pressure 5 mmHg <=5 PA Systolic Pressure 27 mmHg <36 RV Systolic Pressure 27 mmHg <36 Aorta Name Value Normal Ascending Aorta Ao Root Diameter (MM) 3.0 cm Ao Root Diam Index (MM) 1.3 cm/m2 Aortic Valve Name Value Normal AV Doppler AV Peak Velocity 182 cm/s AV Peak Gradient 13 mmHg AV Mean Gradient 7 mmHg AV VTI 46 cm Ventricles Name Value Normal LV Dimensions 2D/MM IVS Diastolic Thickness (2D) 1.0 cm 0.6-1.0 LVID Diastole (2D) 3.8 cm 3.8-5.2 LVIW Diastolic Thickness (2D) 1.0 cm 0.6-0.9 LVID Systole (2D) 2.6 cm 2.2-3.5 LV Mass (2D Cubed) 117.33 g 67.00-162.00 LV Mass Index (2D Cubed) 52 g/m2 43-95 Relative Wall Thickness (2D) 0.53 LV Fractional Shortening/Ejection Fraction 2D/MM LV Fractional Shortening (2D) 32 % 27-45 LV EF (2D Teicholz) 60 % 54-74 LV Diastolic Volume (4C MOD) 91 ml LV EF (4C MOD) 71 % LV Diastolic Volume (2C MOD) 104 ml LV EF (2C MOD) 63 % LV Diastolic Volume (BP MOD) 97 ml 46-106 LV Diastolic Volume Index (BP MOD) 43 ml/m2 29-61 LV Systolic Volume (BP MOD) 32 ml 14-42 LV Systolic Volume Index (BP MOD) 14 ml/m2 8-24 LV EF (BP MOD) 67 % 54-74 LV Diastolic Length (4C) 8.2 cm LV Systolic Length (4C) 6.0 cm LV Stroke Volume (4C MOD) 65 ml RV Dimensions 2D/MM RVID Diastole (2D) 4.2 cm 2.5-3.5 Atria Name Value Normal LA Dimensions LA Dimension (MM) 3.7 cm 2.7-3.8 LA Volume (4C A-L) 73 ml LA Volume (BP A-L) 70 ml RA Dimensions RA Area (4C) 14.4 cm2 <=18.0 Report Signatures
[2024-06-13 00:08] LABS: Influenza A QL RT-PCR Negative (Negative); Influenza B QL RT-PCR Negative (Negative); SARS-CoV-2 RNA PCR Negative (Negative)
[2024-06-13 00:27] LABS: NT Pro B Type Natriuretic Pept 672 pg/mL (19.9-100)
--- NOTE | 2024-06-13 00:58 | PC.NURSE ---
This patient, Regina Howell, was admitted to IMU Room 209-01. Patient/family oriented to hospital policies and general routines including ID bracelet, bed and alarms, visiting hours, pain management, procedures, bathroom and other care routines, personal items, smoking policy, room service/diet, and visiting hours. Information on how to activate the Rapid Response Team has been discussed. Patient/Family are encouraged to report perceived risks to care and to ask questions if they do not understand what they are told or what they should do.
[2024-06-13 01:23] LABS: Glucose Point of Care 202 mg/dl (65-105)
[2024-06-13 02:24] LABS: Basophils Percent Auto 0.6 % (0.2-1.2); Eosinophils Absolute Auto 0.1 K/mm3 (0-0.3); Eosinophils Percent Auto 0.9 % (0-4.4); Hematocrit 36.6 % (37.0-47.0); Hemoglobin 11.8 g/dL (12.0-15.0); Immature Granulocyte Absolute 0.02 K/mm3 (0.00-0.031); Immature Granulocyte Percent A 0.3 % (0-0.5); Lymphocytes Absolute Auto 1.79 K/mm3 (0.9-3.2); Lymphocytes Percent Auto 28.1 % (18.3-44.2); Mean Corpuscular HGB Conc 32.2 g/dl (32-36); Mean Corpuscular Hemoglobin 27.8 pg (26-34); Mean Corpuscular Volume 86.1 fl (80-100); Mean Platelet Volume 10.8 fl (7.4-10.4); Monocytes Absolute Auto 0.5 K/mm3 (0.1-0.6); Monocytes Percent Auto 8.2 % (2.6-8.5); Neutrophils Absolute Auto 3.9 K/mm3 (1.3-6.7); Neutrophils Percent Auto 61.9 % (45.5-73.1); Platelet Count Result 159 k/mm3 (150-375); Red Blood Count 4.25 M/mm3 (4.2-5.4); Red Cell Distribution Width 13.6 % (11.5-14.5); White Blood Count 6.4 K/mm3 (4.5-10.0)
[2024-06-13 02:36] LABS: Anion Gap 12 mmol/L (4-12); Blood Urea Nitrogen 12 mg/dL (7-17); Calcium 9.6 mg/dL (8.4-10.2); Carbon Dioxide 27 mmol/L (22-30); Chloride 103 mmol/L (98-107); Estimated CRCL calculation 125 ml/min; Estimated Glomerular Filt Rate > 60; Glucose 208 mg/dL (65-110); Potassium 3.2 mmol/L (3.4-5.0); Sodium 142 mmol/L (137-145)
[2024-06-13 02:47] LABS: Troponin I < 0.012 ng/mL (0.000-0.034)
[2024-06-13] MEDS: INSULIN GLARGINE (*BKC) 100 UNITS/ML 23 UNITS SUB-Q ×2 (03:44→20:05)
[2024-06-13 07:38] LABS: Glucose Point of Care 225 mg/dl (65-105)
--- NOTE | 2024-06-13 08:08 | P.HP_ITS ---
H&P: HPI History of Present Illness Date/Time: 06/13/24 08:08 Chief Complaint: Chest pain Narrative: This is a 53-year-old female with history of hypertension, uncontrolled type 2 diabetes, hyperlipidemia, asthma present ED with chief complaint of chest pain. Patient had intermittent chest pain yesterday associated with shortness breath, the pain is located in the left chest without radiation. Patient has been having progressive shortness breath in past 4 days. And patient also has wore swelling bilateral lower extremities in past few more days. Patient needs several pillows to sleep the night. Patient denies headache, focal weakness, abdomen pain, nausea vomiting diarrhea dysuria. Upon arrival to ED, patient was afebrile, blood pressure stable, pulse ox 98 on room air, Lab showed hemoglobin 11.6, potassium 3.3, glucose 252,, troponin negative, EKG shows sinus rhythm no specific ST or T-wave changes Chest x-ray shows no acute cardiopulmonary issues Review of Systems Review of Systems: ROS negative except above PMFSH Past Medical History Medical History Dyspnea on exertion Pneumonia Rheumatoid arthritis (normal spontaneous vaginal delivery) x2 Status post hysteroscopy 2015 and 2020 Asthma Obesity Iron deficiency anemia Elective Anxiety and depression GERD (gastroesophageal reflux disease) HTN (hypertension) High triglycerides HLD (hyperlipidemia) Diabetes Surgical History Surgical History S/P endometrial ablation 2017 Family History Family History Mother Atrial fibrillation History of open heart surgery Family history of cataracts Hypertension Asthma Grandparent Family history of cardiovascular disease Family history of Alzheimer's disease Family history of coronary artery disease Heart murmur Sibling Heart murmur Social History Social History Smoking packs per day: 1 Smoking cigarettes per day: 20.0 Years smoked: 20 Smoking pack-years: 20.00 Smoking status: Former smoker Tobacco type: cigarettes Smoking end date: 02/16/02 Alcohol intake: current Drinks per week: 2 Substance use: former Substance use type: marijuana Do You Feel Safe in your Home?: Yes Lack of Transportation: No Lack of Food: Never True Current Housing: I Have Housing Concerned About Future Housing: No Difficulty Paying Gas/Electric Bills: No Difficulty Paying for Meds: No Currently Unemployed: YES Education: Don't Know Difficulty w/ Childcare or Family Care: No Living arrangements: alone Gender identity (if verbalized by the patient): Female Spiritual care concerns: No Agree to blood products: Yes Meds Home Medications and Allergies Home Medications ?Medication ?Instructions ?Recorded ?Confirmed ?Type amlodipine 10 mg tablet 10 mg PO HS 12/05/20 06/13/24 History aspirin 81 mg capsule 81 mg PO DAILY 12/05/20 06/13/24 History clonidine HCl 0.1 mg tablet 0.1 mg PO TID 12/05/20 06/13/24 History nadolol 80 mg tablet 80 mg PO TID 12/05/20 06/13/24 History rosuvastatin 40 mg tablet 40 mg PO WEEKLY 12/05/20 06/13/24 History albuterol sulfate 2.5 mg/3 mL 2.5 mg inhalation Q6H PRN 03/28/21 06/13/24 History (0.083 %) solution for nebulization Shortness Of Breath Or Wheezing ergocalciferol (vitamin D2) 1,250 1,250 mcg PO WEEKLY 03/28/21 06/13/24 History mcg (50,000 unit) capsule furosemide 20 mg tablet 10 mg PO QAM 03/28/21 06/13/24 History trazodone 50 mg tablet 50 mg PO QHS PRN Insomnia 03/28/21 06/13/24 History hydroxychloroquine 200 mg tablet 200 mg PO .q12hr 09/12/22 06/13/24 History Afrin (oxymetazoline) 1 puff intranasal TID PRN 04/06/23 06/13/24 History Congestion ibuprofen 1,600 mg PO BID PRN Headache 04/06/23 06/13/24 History magnesium oxide 400 mg (241.3 mg 400 mg PO HS 04/06/23 06/13/24 History magnesium) tablet doxycycline hyclate 100 mg tablet 100 mg PO Q12HR #5 tabs 04/14/23 06/13/24 Rx fluticasone propionate 230 2 puff inhalation Q12HRT 30 days 06/03/23 06/13/24 Rx mcg-salmeterol 21 mcg/actuation #60 grams HFA inhaler (Advair HFA) cetirizine 10 mg tablet 10 mg PO DAILY 06/13/24 06/13/24 History cyclobenzaprine 5 mg tablet 5 mg PO TID PRN muscle pain 06/13/24 06/13/24 History dulaglutide 3 mg/0.5 mL 3 mg subcut WEEKLY 06/13/24 06/13/24 History subcutaneous pen injector (Trulicity) escitalopram oxalate 10 mg tablet 10 mg PO DAILY 06/13/24 06/13/24 History famotidine 20 mg tablet 20 mg PO BID PRN acid reflux 06/13/24 06/13/24 History ferrous sulfate 325 mg (65 mg 325 mg PO BID PRN menstrual 06/13/24 06/13/24 History iron) tablet (FeroSul) bleeding fluticasone propionate 50 1 spray intranasal DAILY PRN 06/13/24 06/13/24 History mcg/actuation nasal allergy symptoms spray,suspension hydrocodone 7.5 mg-acetaminophen 1 tablet PO TID PRN pain 06/13/24 06/13/24 History 325 mg tablet insulin lispro 100 unit/mL 50 unit subcut TIDWM 06/13/24 06/13/24 History subcutaneous pen metformin 500 mg tablet,extended 500 mg PO BID 06/13/24 06/13/24 History release 24 hr potassium chloride 10 mEq 10 meq PO DAILY 06/13/24 06/13/24 History tablet,extended release pregabalin 200 mg capsule 200 mg PO DAILY 06/13/24 06/13/24 History progesterone micronized 100 mg 100 mg PO QPM 06/13/24 06/13/24 History capsule Allergies Allergy/AdvReac Type Severity Reaction Status Date / Time atenolol Allergy Intermediate Chest Pain Verified 06/13/24 01:09 Vital Signs Vital Signs - 24 hr 06/12/24 18:44 06/12/24 22:01 06/12/24 22:16 Temperature 97.5 F L Pulse Rate 69 70 70 Respiratory Rate 20 14 15 Blood Pressure 148/70 H 152/80 H 139/76 Pulse Oximetry 98 99 98 Oxygen Delivery 06/12/24 22:31 06/12/24 22:38 06/12/24 22:46 Temperature Pulse Rate 70 70 Respiratory Rate 15 14 Blood Pressure 135/86 128/68 Pulse Oximetry 98 98 98 Oxygen Delivery Room Air 06/12/24 23:01 06/12/24 23:16 06/13/24 00:00 Temperature Pulse Rate 69 68 69 Respiratory Rate 16 14 17 Blood Pressure 138/71 136/75 Pulse Oximetry 98 98 99 Oxygen Delivery 06/13/24 00:11 06/13/24 00:11 06/13/24 00:58 Temperature Pulse Rate 67 Respiratory Rate Blood Pressure Pulse Oximetry 100 Oxygen Delivery Room Air Room Air 06/13/24 01:30 06/13/24 02:00 06/13/24 04:00 Temperature 97.9 F Pulse Rate 66 66 Respiratory Rate 15 Blood Pressure 147/67 H Pulse Oximetry 99 Oxygen Delivery Room Air 06/13/24 04:00 06/13/24 04:34 06/13/24 06:00 Temperature 98.1 F Pulse Rate 71 76 73 Respiratory Rate 15 Blood Pressure 124/57 L Pulse Oximetry 99 Oxygen Delivery 06/13/24 07:44 Temperature 98.7 F Pulse Rate 71 Respiratory Rate 22 H Blood Pressure 165/74 H Pulse Oximetry 100 Oxygen Delivery Exam Narrative: GENERAL: Pleasant, in no acute distress. Well-nourished. Obesity - EYES: EOMI. Anicteric. - HENT: Moist mucous membranes. - LUNGS: Coarse breath sound bilateral base - CARDIOVASCULAR: Regular rate and rhyth m. No murmur. JVD is not appreciated because of obesity. - ABDOMEN: Soft, non-tender and non-dist ended. No palpable masses. - EXTREMITIES: 2+ edema. Peripheral pul ses 2+. Non-tender. - NEUROLOGIC: No focal neurological defi cits. CN II-XII grossly intact. - PSYCHIATRIC: Awake, Alert and oriented x 3. Appropriate mood and affect. - SKIN: No rashes or lesions. Warm. - LYMPH: No cervical lymphadenopathy. H&P: Results Labs Labs: Short CBC 06/12/24 06/13/24 Range/Units 19:23 02:04 WBC 7.8 6.4 (4.5-10.0) K/mm3 Hgb 11.6 L 11.8 L (12.0-15.0) g/dL Hct 36.2 L 36.6 L (37.0-47.0) % Plt Count 158 159 (150-375) k/mm3 [facility] 06/12/24 06/13/24 19:23 02:04 Sodium 140 142 Potassium 3.3 L 3.2 L Chloride 101 103 Carbon Dioxide 31 H 27 BUN 17 12 D Creatinine 0.58 L 0.52 L Glucose 252 H 208 H Calcium 9.2 9.6 Cardiac Enzymes 06/12/24 06/13/24 Range/Units 19:23 02:04 Troponin I < 0.012 < 0.012 (0.000-0.034) ng/mL Liver Function 06/12/24 Range/Units 19:23 Total Bilirubin 0.6 (0.2-1.3) mg/dL AST 25 (14-36) U/L ALT 23 (6-35) U/L Alkaline Phosphatase 69 (38-126) U/L Albumin 4.4 (3.5-5.1) g/dL Assessment and Plan Assessment and plan (1) Anxiety and depression: Code(s): F41.9 - Anxiety disorder, unspecified; F32.9 - Major depressive disorder, single episode, unspecified Status: Acute (2) HTN (hypertension): Code(s): I10 - Essential (primary) hypertension Status: Acute (3) Chest pain: Qualifiers: Chest pain type: unspecified Qualified Code(s): R07.9 - Chest pain, unspecified Code(s): R07.9 - Chest pain, unspecified Status: Acute (4) Uncontrolled type 2 diabetes mellitus: Status: Acute (5) Asthma: Code(s): J45.909 - Unspecified asthma, uncomplicated Status: Acute (6) Iron deficiency anemia: Code(s): D50.9 - Iron deficiency anemia, unspecified Status: Acute (7) Diastolic heart failure: Code(s): I50.30 - Unspecified diastolic (congestive) heart failure Status: Acute (8) Hypokalemia: Code(s): E87.6 - Hypokalemia Status: Acute Plan Chest pain Patient has been having intermittent chest pain since yesterday, aggravated by exertion Troponin negative, EKG shows sinus rhythm no specific ST T-wave changes Need to rule out ACS Start aspirin 325 mg once 81 mg daily p.o. Nitroglycerin sublingual p.r.n. 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 changed to Lasix 40 mg b.i.d. IV push Follow-up of BMP and BNP Follow-up echocardiogram Essential hypertension Continue amlodipine 10 mg daily p.o., clot leading 0.1 mg t.i.d. p.o., Iron deficiency anemia Hemoglobin stable Continue ferrous sulfate 325 mg daily p.o. Uncontrolled type 2 diabetes Home metformin during p.o. Continue Lantus 23 units q.h.s., lispro 10 units q.h.s., and sliding scale a.c. q.h.s. Optimize medication to control glucose in the target range Hospitalist MIPS Advance Care Plan I have confirmed that the patient's Advanced Care Plan is present, code status is documented, or surrogate decision maker is listed in patient medical record.: Yes Medication Reconciliation I have utilized all available resources to obtain, update and review the patients current medications (includes all prescriptions, OTC, herbals, cannabis, and nutritional supplements).: Yes
[2024-06-13 08:40] LABS: Hemoglobin A1C 7.8 % (<5.7)
[2024-06-13] MEDS: PREGABALIN (*CRX) 50 MG CAPSULE 200 MG PO (10:08)
[2024-06-13] MEDS: ESCITALOPRAM OXALATE 10 MG TABLET PO (10:09)
[2024-06-13] MEDS: HYDROXYCHLOROQUINE SULFATE 200 MG TABLET PO ×2 (10:09→20:04)
[2024-06-13] MEDS: POTASSIUM CHLORIDE 20 MEQ ER TABLET 40 MEQ PO ×2 (10:09→17:36)
[2024-06-13] MEDS: LORATADINE 10 MG TABLET PO (10:10)
[2024-06-13] MEDS: FERROUS SULFATE 325 MG TABLET DR PO (10:10)
[2024-06-13] MEDS: cloNIDine HCL 0.1 MG TABLET PO ×3 (10:11→17:36)
[2024-06-13] MEDS: ASPIRIN 81 MG ENTERIC TABLET PO (10:11)
[2024-06-13] MEDS: nadoloL 20 MG TABLET 80 MG PO ×3 (10:12→20:04)
[2024-06-13] MEDS: FLUTICASONE PROPIONATE 0.05% NA SPR 16 GM BTL (*BKC) 1 SPRAY NASAL (10:14)
[2024-06-13] MEDS: ERGOCALCIFEROL 50,000 UNITS CAPSULE 50000 UNITS PO (10:22)
[2024-06-13] MEDS: FLUTICASONE/SALMETEROL 230-21 MCG INHALER 1 PUFF 2 PUFF INHALATION ×2 (11:00→20:02)
[2024-06-13] MEDS: FUROSEMIDE INJ 40 MG/4 ML VIAL IV PUSH ×2 (11:34→17:36)
[2024-06-13] MEDS: INSULIN ASPART (*BKC) 100 UNITS/ML SUB-Q (11:34)
[2024-06-13] MEDS: INSULIN ASPART (*BKC) 100 UNITS/ML 10 UNITS SUB-Q (11:35)
[2024-06-13 11:37] LABS: Glucose Point of Care 220 mg/dl (65-105)
[2024-06-13 12:08] LABS: NT Pro B Type Natriuretic Pept 635 pg/mL (19.9-100)
[2024-06-13] MEDS: ALBUTEROL SULFATE NEB 2.5 MG/3 ML INH INHALATION (15:18)
[2024-06-13 15:49] LABS: Glucose Point of Care 120 mg/dl (65-105)
--- NOTE | 2024-06-13 17:42 | PM.CNCAR ---
Assessment and Plan Assessment and plan (1) Lower extremity edema: Code(s): R60.0 - Localized edema Status: Acute Plan 1. Lower extremity edema 2. HTN 3. Non cardiac chest pain TTE (06/13/2024) EF 55-60%, normal diastolic function, no wall motion abnormality -it is my clinical impression that this patient has lower extremity swelling is most likely secondary to amlodipine. LV systolic function is normal and so is her diastolic function. -her pretest probability for CAD is low as per the Kelsey-Lilian model. No further noninvasive/invasive evaluation is required during this admission. She will need an ischemic evaluation if she continues to have symptoms. -will discontinue amlodipine -will discontinue clonidine. There may be some rebound hypertension, will continue to monitor. No breakthrough antihypertensive to be given on lisinopril the blood pressures is more than 170 systolic -discussed switching her nadolol to carvedilol, she was apprehensive will talk to her tomorrow -continue to monitor blood pressure and optimize History of Present Illness History of Present Illness Consult date/time: 06/13/24 17:42 Reason For Visit: Chest pain Narrative: This is a 52-year-old woman known to have HTN on amlodipine 10, clonidine 01. TID, Nadolol 80 TID; Hyperlipidemia, obesity, former smoker is admitted lower extremity edema. 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 Former smoker No prior history of CAD, RI EKG shows normal sinus rhythm, poor R-wave progression in precordial leads, no dynamic ST-T changes; no significant change compared to prior EKGs TTE (06/13/2024) EF 55-60%, normal diastolic function, no wall motion abnormality Review of Systems Review of Systems: ROS negative except above All systems reviewed & are unremarkable except as noted in HPI and below [facility] Past Medical History Medical History (Updated 06/14/24 @ 15:36 by Allison Wagner MD) Lower extremity edema Dyspnea on exertion Pneumonia Rheumatoid arthritis (normal spontaneous vaginal delivery) x2 Status post hysteroscopy 2015 and 2020 Asthma Obesity Iron deficiency anemia Elective Anxiety and depression GERD (gastroesophageal reflux disease) HTN (hypertension) High triglycerides HLD (hyperlipidemia) Diabetes Surgical History Surgical History S/P endometrial ablation 2018 Family History Family History Mother Atrial fibrillation History of open heart surgery Family history of cataracts Hypertension Asthma Grandparent Family history of cardiovascular disease Family history of Alzheimer's disease Family history of coronary artery disease Heart murmur Sibling Heart murmur Social History Social History Smoking packs per day: 1 Smoking cigarettes per day: 20.0 Years smoked: 20 Smoking pack-years: 20.00 Smoking status: Former smoker Tobacco type: cigarettes Smoking end date: 02/16/02 Alcohol intake: current Drinks per week: 2 Substance use: former Substance use type: marijuana Do You Feel Safe in your Home?: Yes Lack of Transportation: No Lack of Food: Never True Current Housing: I Have Housing Concerned About Future Housing: No Difficulty Paying Gas/Electric Bills: No Difficulty Paying for Meds: No Currently Unemployed: YES Education: Don't Know Difficulty w/ Childcare or Family Care: No Living arrangements: alone Gender identity (if verbalized by the patient): Female Spiritual care concerns: No Agree to blood products: Yes Meds Home Medications and Allergies Home Medications ?Medication ?Instructions ?Recorded ?Confirmed ?Type amlodipine 10 mg tablet 10 mg PO HS 12/05/20 06/13/24 History aspirin 81 mg capsule 81 mg PO DAILY 12/05/20 06/13/24 History clonidine HCl 0.1 mg tablet 0.1 mg PO TID 12/05/20 06/13/24 History nadolol 80 mg tablet 80 mg PO TID 12/05/20 06/13/24 History rosuvastatin 40 mg tablet 40 mg PO WEEKLY 12/05/20 06/13/24 History albuterol sulfate 2.5 mg/3 mL 2.5 mg inhalation Q6H PRN 03/28/21 06/13/24 History (0.083 %) solution for nebulization Shortness Of Breath Or Wheezing ergocalciferol (vitamin D2) 1,250 1,250 mcg PO WEEKLY 03/28/21 06/13/24 History mcg (50,000 unit) capsule furosemide 20 mg tablet 10 mg PO QAM 03/28/21 06/13/24 History trazodone 50 mg tablet 50 mg PO QHS PRN Insomnia 03/28/21 06/13/24 History hydroxychloroquine 200 mg tablet 200 mg PO .q12hr 09/12/22 06/13/24 History Afrin (oxymetazoline) 1 puff intranasal TID PRN 04/06/23 06/13/24 History Congestion ibuprofen 1,600 mg PO BID PRN Headache 04/06/23 06/13/24 History magnesium oxide 400 mg (241.3 mg 400 mg PO HS 04/06/23 06/13/24 History magnesium) tablet doxycycline hyclate 100 mg tablet 100 mg PO Q12HR #5 tabs 04/14/23 06/13/24 Rx fluticasone propionate 230 2 puff inhalation Q12HRT 30 days 06/03/23 06/13/24 Rx mcg-salmeterol 21 mcg/actuation #60 grams HFA inhaler (Advair HFA) cetirizine 10 mg tablet 10 mg PO DAILY 06/13/24 06/13/24 History cyclobenzaprine 5 mg tablet 5 mg PO TID PRN muscle pain 06/13/24 06/13/24 History dulaglutide 3 mg/0.5 mL 3 mg subcut WEEKLY 06/13/24 06/13/24 History subcutaneous pen injector (Trulicity) escitalopram oxalate 10 mg tablet 10 mg PO DAILY 06/13/24 06/13/24 History famotidine 20 mg tablet 20 mg PO BID PRN acid reflux 06/13/24 06/13/24 History ferrous sulfate 325 mg (65 mg 325 mg PO BID PRN menstrual 06/13/24 06/13/24 History iron) tablet (FeroSul) bleeding fluticasone propionate 50 1 spray intranasal DAILY PRN 06/13/24 06/13/24 History mcg/actuation nasal allergy symptoms spray,suspension hydrocodone 7.5 mg-acetaminophen 1 tablet PO TID PRN pain 06/13/24 06/13/24 History 325 mg tablet insulin lispro 100 unit/mL 50 unit subcut TIDWM 06/13/24 06/13/24 History subcutaneous pen metformin 500 mg tablet,extended 500 mg PO BID 06/13/24 06/13/24 History release 24 hr potassium chloride 10 mEq 10 meq PO DAILY 06/13/24 06/13/24 History tablet,extended release pregabalin 200 mg capsule 200 mg PO DAILY 06/13/24 06/13/24 History progesterone micronized 100 mg 100 mg PO QPM 06/13/24 06/13/24 History capsule Allergies Allergy/AdvReac Type Severity Reaction Status Date / Time atenolol Allergy Intermediate Chest Pain Verified 06/13/24 01:09 Vital Signs Vital Signs - 24 hr 06/12/24 18:44 06/12/24 22:01 06/12/24 22:16 Temperature 36.4 C L Pulse Rate 69 70 70 Respiratory Rate 20 14 15 Blood Pressure 148/70 H 152/80 H 139/76 Pulse Oximetry 98 99 98 Oxygen Delivery Fraction of Inspired Oxygen 06/12/24 22:31 06/12/24 22:38 06/12/24 22:46 Temperature Pulse Rate 70 70 Respiratory Rate 15 14 Blood Pressure 135/86 128/68 Pulse Oximetry 98 98 98 Oxygen Delivery Room Air Fraction of Inspired Oxygen 06/12/24 23:01 06/12/24 23:16 06/13/24 00:00 Temperature Pulse Rate 69 68 69 Respiratory Rate 16 14 17 Blood Pressure 138/71 136/75 Pulse Oximetry 98 98 99 Oxygen Delivery Fraction of Inspired Oxygen 06/13/24 00:11 06/13/24 00:11 06/13/24 00:58 Temperature Pulse Rate 67 Respiratory Rate Blood Pressure Pulse Oximetry 100 Oxygen Delivery Room Air Room Air Fraction of Inspired Oxygen 06/13/24 01:30 06/13/24 02:00 06/13/24 04:00 Temperature 36.6 C Pulse Rate 66 66 Respiratory Rate 15 Blood Pressure 147/67 H Pulse Oximetry 99 Oxygen Delivery Room Air Fraction of Inspired Oxygen 06/13/24 04:00 06/13/24 04:34 06/13/24 06:00 Temperature 36.7 C Pulse Rate 71 76 73 Respiratory Rate 15 Blood Pressure 124/57 L Pulse Oximetry 99 Oxygen Delivery Fraction of Inspired Oxygen 06/13/24 07:44 06/13/24 08:00 06/13/24 10:00 Temperature 37.1 C Pulse Rate 71 69 72 Respiratory Rate 22 H Blood Pressure 165/74 H Pulse Oximetry 100 Oxygen Delivery Fraction of Inspired Oxygen 06/13/24 10:12 06/13/24 11:00 06/13/24 11:00 Temperature Pulse Rate 63 70 Respiratory Rate 16 Blood Pressure Pulse Oximetry 98 Oxygen Delivery Room Air Fraction of Inspired Oxygen 06/13/24 11:36 06/13/24 12:00 06/13/24 13:22 Temperature 36.8 C Pulse Rate 74 69 66 Respiratory Rate 20 Blood Pressure 194/73 H Pulse Oximetry 98 Oxygen Delivery Fraction of Inspired Oxygen 06/13/24 13:23 06/13/24 14:00 06/13/24 15:18 Temperature Pulse Rate 66 Respiratory Rate Blood Pressure 150/60 H Pulse Oximetry 94 Oxygen Delivery Room Air Fraction of Inspired Oxygen 06/13/24 15:18 06/13/24 15:24 06/13/24 15:52 Temperature 36.7 C Pulse Rate 63 64 61 Respiratory Rate 16 16 20 Blood Pressure 151/69 H Pulse Oximetry 99 Oxygen Delivery Fraction of Inspired Oxygen Exam Narrative: GENERAL: Pleasant, in no acute distress. Well-nourished. Obesity - EYES: EOMI. Anicteric. - HENT: Moist mucous membranes. - LUNGS: Coarse breath sound bilateral base - CARDIOVASCULAR: Regular rate and rhythm. No murmur. JVD is not appreciated because of obesity. - ABDOMEN: Soft, non-tender and non-distended. No palpable masses. - EXTREMITIES: 2+ edema. Peripheral pulses 2+. Non-tender. - NEUROLOGIC: No focal neurological deficits. CN II-XII grossly intact. - PSYCHIATRIC: Awake, Alert and oriented x 3. Appropriate mood and affect. - SKIN: No rashes or lesions. Warm. - LYMPH: No cervical lymphadenopathy. Results Labs and Meds 06/14/24 11:31 06/14/24 11:31 Lab results: Cardiac Enzymes 06/12/24 06/13/24 Range/Units 19:23 02:04 AST 25 (14-36) U/L Troponin I < 0.012 < 0.012 (0.000-0.034) ng/mL Coagulation 06/12/24 Range/Units 19:23 PT 14.5 (11.1-14.7) Seconds APTT 32.9 (22.3-36.8) Seconds CBC 06/12/24 06/13/24 Range/Units 19:23 02:04 WBC 7.8 6.4 (4.5-10.0) K/mm3 RBC 4.11 L 4.25 (4.2-5.4) M/mm3 Hgb 11.6 L 11.8 L (12.0-15.0) g/dL Hct 36.2 L 36.6 L (37.0-47.0) % Plt Count 158 159 (150-375) k/mm3 Lymph # (Auto) 1.90 1.79 (0.9-3.2) K/mm3 [place] # (Auto) 0.6 0.5 (0.1-0.6) K/mm3 Eos # (Auto) 0.1 0.1 (0-0.3) K/mm3 Baso # (Auto) 0.0 0.0 (0.0-0.1) K/mm3 Comprehensive Metabolic Panel 06/12/24 06/13/24 Range/Units 19:23 02:04 Sodium 140 142 (137-145) mmol/L Potassium 3.3 L 3.2 L (3.4-5.0) mmol/L Chloride 101 103 (98-107) mmol/L Carbon Dioxide 31 H 27 (22-30) mmol/L BUN 17 12 D (7-17) mg/dL Creatinine 0.58 L 0.52 L (0.7-1.0) mg/dL Glucose 252 H 208 H (65-110) mg/dL Calcium 9.2 9.6 (8.4-10.2) mg/dL AST 25 (14-36) U/L ALT 23 (6-35) U/L Alkaline Phosphatase 69 (38-126) U/L Total Protein 8.0 (6.3-8.2) g/dL Albumin 4.4 (3.5-5.1) g/dL Intake and Output 06/13/24 06/13/24 06/13/24 07:59 15:59 23:59 Intake Total 550 240 Output Total 1600 1900 Balance -1050 -1660 Intake: Oral 550 240 Output: Urine 1600 1900 Patient Weight 06/13/24 23:59 Weight 106.1 kg
[2024-06-13 20:02] LABS: Glucose Point of Care 170 mg/dl (65-105)
[2024-06-13] MEDS: MAGNESIUM OXIDE 400 MG TABLET PO (20:04)
[2024-06-13] MEDS: ROSUVASTATIN 20 MG TABLET 40 MG PO (20:04)
[2024-06-13] MEDS: traZODone HCL 50 MG TABLET PO (20:06)
[2024-06-13] MEDS: HYDROcodone/acetaminophen (*CRX) 7.5-325 MG TABLET 1 TAB PO (20:06)
[2024-06-14] VITALS (22 sets, daily range): BP systolic 128–148; BP diastolic 51–72; PULSE 46–62; RESP 18–20; TEMP 36.7–37.1; O2SAT 93–100
[2024-06-14] MEDS: CYCLOBENZAPRINE HCL 5 MG TABLET PO ×2 (04:03→22:42)
[2024-06-14] MEDS: nadoloL 20 MG TABLET 80 MG PO (06:06)
[2024-06-14 07:55] LABS: Glucose Point of Care 177 mg/dl (65-105)
[2024-06-14] MEDS: FLUTICASONE/SALMETEROL 230-21 MCG INHALER 1 PUFF 2 PUFF INHALATION ×2 (08:10→21:28)
[2024-06-14] MEDS: POTASSIUM CHLORIDE 20 MEQ ER TABLET 40 MEQ PO ×2 (08:14→16:56)
[2024-06-14] MEDS: PREGABALIN (*CRX) 50 MG CAPSULE 200 MG PO (08:14)
[2024-06-14] MEDS: FERROUS SULFATE 325 MG TABLET DR PO (08:14)
[2024-06-14] MEDS: LORATADINE 10 MG TABLET PO (08:14)
[2024-06-14] MEDS: cloNIDine HCL 0.1 MG TABLET PO (08:14)
[2024-06-14] MEDS: ESCITALOPRAM OXALATE 10 MG TABLET PO (08:15)
[2024-06-14] MEDS: HYDROXYCHLOROQUINE SULFATE 200 MG TABLET PO ×2 (08:15→21:02)
[2024-06-14] MEDS: ASPIRIN 81 MG ENTERIC TABLET PO (08:15)
[2024-06-14] MEDS: INSULIN ASPART (*BKC) 100 UNITS/ML SUB-Q ×4 (08:15→16:48)
[2024-06-14] MEDS: lisinopriL 20 MG TABLET PO (08:15)
[2024-06-14] MEDS: FLUTICASONE PROPIONATE 0.05% NA SPR 16 GM BTL (*BKC) 1 SPRAY NASAL (08:17)
[2024-06-14] MEDS: FUROSEMIDE INJ 40 MG/4 ML VIAL IV PUSH ×2 (08:21→16:56)
[2024-06-14] MEDS: HYDROcodone/acetaminophen (*CRX) 7.5-325 MG TABLET 1 TAB PO ×2 (11:08→21:09)
--- NOTE | 2024-06-14 11:23 | PM.IMPN ---
Progress Note: A&P Assessment and Plan (1) Anxiety and depression: Code(s): F41.9 - Anxiety disorder, unspecified; F32.9 - Major depressive disorder, single episode, unspecified Status: Acute (2) HTN (hypertension): Code(s): I10 - Essential (primary) hypertension Status: Acute (3) Chest pain: Qualifiers: Chest pain type: unspecified Qualified Code(s): R07.9 - Chest pain, unspecified Code(s): R07.9 - Chest pain, unspecified Status: Acute (4) Uncontrolled type 2 diabetes mellitus: Status: Acute (5) Asthma: Code(s): J45.909 - Unspecified asthma, uncomplicated Status: Acute (6) Iron deficiency anemia: Code(s): D50.9 - Iron deficiency anemia, unspecified Status: Acute (7) Diastolic heart failure: Code(s): I50.30 - Unspecified diastolic (congestive) heart failure Status: Acute (8) Hypokalemia: Code(s): E87.6 - Hypokalemia Status: Acute Plan Chest pain Patient has been having intermittent chest pain since yesterday, aggravated by exertion Troponin negative, EKG shows sinus rhythm no specific ST T-wave changes Need to rule out ACS Start aspirin 325 mg once 81 mg daily p.o. Nitroglycerin sublingual p.r.n. Place patient on equipment monitor phototypesetting Echocardiogram April 13, 2023 showed normal EF, grade 2 diastolic dysfunction Repeat echocardiogram traffic monitor specialist Consult retail visual merchandiser for evaluation treatment Asthma Continue albuterol in nebulizer q.6 hours p.r.n., Advair 2 above q.12 hour Acute on chronic Diastolic heart failure Patient is on furosemide 10 mg daily p.o. changed to Lasix 40 mg b.i.d. IV push Follow-up of BMP BNP: 1960 on arrival Follow-up echocardiogram 1. Complete two-dimensional, color flow and Doppler transthoracic echocardiogram is performed. 2. Left ventricular systolic function is normal, estimated at 55-60%. 3. There is mild tricuspid valve regurgitation. 4. No pulmonary hypertension, estimated pulmonary arterial systolic pressure is 27 mmHg. Essential hypertension Continue amlodipine 10 mg daily p.o., clot leading 0.1 mg t.i.d. p.o., Iron deficiency anemia Hemoglobin stable Continue ferrous sulfate 325 mg daily p.o. Uncontrolled type 2 diabetes Home metformin during p.o. Continue Lantus 23 units q.h.s., lispro 10 units q.h.s., and sliding scale a.c. q.h.s. Optimize medication to control glucose in the target range Subjective Date/time seen: 06/14/24 11:23 Interval history: I saw exam patient today, patient feels shortness breath improved significantly, denies chest pain Patient afebrile blood pressure stable Lab I reviewed Exam Narrative: GENERAL: Pleasant, in no acute distress. Well-nourished. Obesity - EYES: EOMI. Anicteric. - HENT: Moist mucous membranes. - LUNGS: Coarse breath sound bilateral base - CARDIOVASCULAR: Regular rate and rhythm. No murmur. JVD is not appreciated because of obesity. - ABDOMEN: Soft, non-tender and non-distended. No palpable masses. - EXTREMITIES: 2+ edema. Peripheral pulses 2+. Non-tender. - NEUROLOGIC: No focal neurological deficits. CN II-XII grossly intact. - PSYCHIATRIC: Awake, Alert and oriented x 3. Appropriate mood and affect. - SKIN: No rashes or lesions. Warm. - LYMPH: No cervical lymphadenopathy. Objective Data Vital Signs Vital Signs: Vital Signs - 24 hr 06/13/24 11:36 06/13/24 12:00 06/13/24 13:22 Temperature 98.2 F Pulse Rate 74 69 66 Respiratory Rate 20 Blood Pressure 194/73 H Pulse Oximetry 98 Oxygen Delivery Fraction of Inspired Oxygen 06/13/24 13:23 06/13/24 14:00 06/13/24 15:18 Temperature Pulse Rate 66 Respiratory Rate Blood Pressure 150/60 H Pulse Oximetry 94 Oxygen Delivery Room Air Fraction of Inspired Oxygen 21 06/13/24 15:18 06/13/24 15:24 06/13/24 15:52 Temperature 98.1 F Pulse Rate 63 64 61 Respiratory Rate 16 16 20 Blood Pressure 151/69 H Pulse Oximetry 99 Oxygen Delivery Fraction of Inspired Oxygen 06/13/24 16:00 06/13/24 18:00 06/13/24 19:50 Temperature 99.0 F Pulse Rate 61 61 64 Respiratory Rate 16 Blood Pressure 143/67 H Pulse Oximetry 96 Oxygen Delivery Fraction of Inspired Oxygen 06/13/24 20:00 06/13/24 20:00 06/13/24 20:02 Temperature Pulse Rate 64 60 Respiratory Rate Blood Pressure Pulse Oximetry 98 Oxygen Delivery Room Air Room Air Fraction of Inspired Oxygen 21 06/13/24 20:04 06/13/24 23:51 06/13/24 23:57 Temperature 98.2 F Pulse Rate 65 58 L Respiratory Rate 18 Blood Pressure 157/74 H Pulse Oximetry 96 Oxygen Delivery Room Air Fraction of Inspired Oxygen 06/14/24 00:00 06/14/24 03:53 06/14/24 04:00 Temperature Pulse Rate 57 L 62 Respiratory Rate Blood Pressure Pulse Oximetry Oxygen Delivery Room Air Fraction of Inspired Oxygen 06/14/24 04:29 06/14/24 06:06 06/14/24 08:00 Temperature 98.0 F Pulse Rate 61 59 L 57 L Respiratory Rate 20 Blood Pressure 144/66 H Pulse Oximetry 98 Oxygen Delivery Fraction of Inspired Oxygen 06/14/24 08:09 06/14/24 08:10 06/14/24 10:00 Temperature 98.3 F Pulse Rate 58 L 58 L Respiratory Rate 20 Blood Pressure 133/59 L Pulse Oximetry 97 93 Oxygen Delivery Room Air Fraction of Inspired Oxygen Intake/Output Intake/Output: Intake & Output 06/11/24 06/12/24 06/13/24 06/14/24 23:59 23:59 23:59 23:59 Intake Total 1530 1240 Output Total 4500 500 Balance -2970 740 Meds/Results Medications: Active Medications Generic Name Dose Route Start Last Admin Trade Name Freq PRN Reason Stop Dose Admin Hydrocodone Bitart/Acetaminophen 1 tab 06/13/24 08:22 06/14/24 11:08 Hydrocodone/Acetaminophen (*Crx) 7.5-325 Mg Tablet PO 1 tab TID PRN Administration pain Albuterol 2.5 mg 06/13/24 08:22 06/13/24 15:18 Albuterol Sulfate Neb 2.5 Mg/3 Ml Inh INHALATION 2.5 mg Q6HRT PRN Administration Shortness Of Breath Or Wheezing Aspirin 81 mg 06/13/24 09:00 06/14/24 08:15 Aspirin 81 Mg Enteric Tablet PO 07/13/24 08:59 81 mg DAILY JUDITH Administration Clonidine HCl 0.1 mg 06/13/24 09:00 06/14/24 08:14 Clonidine Hcl 0.1 Mg Tablet PO 0.1 mg TID JUDITH Administration Cyclobenzaprine HCl 5 mg 06/13/24 08:22 06/14/24 04:03 Cyclobenzaprine Hcl 5 Mg Tablet PO 5 mg TID PRN Administration muscle pain Dextrose 12.5 gm 06/13/24 07:58 Dextrose 50% 25 Gm/50 Ml Syringe IV PUSH PRN PRN Hypoglycemia Protocol Ergocalciferol 50,000 units 06/13/24 09:00 06/13/24 10:22 Ergocalciferol 50,000 Units Capsule PO 50,000 units Mo@0900 JUDITH Administration Escitalopram Oxalate 10 mg 06/13/24 09:00 06/14/24 08:15 Escitalopram Oxalate 10 Mg Tablet PO 10 mg DAILY JUDITH Administration Famotidine 20 mg 06/13/24 08:22 Famotidine 20 Mg Tablet PO BID PRN acid reflux Ferrous Sulfate 325 mg 06/13/24 08:50 06/14/24 08:14 Ferrous Sulfate [address] PO 325 mg DAILY@0800 JUDITH Administration Fluticasone Propionate 1 spray 06/13/24 08:22 06/14/24 08:17 Fluticasone Propionate 0.05% Na Spr 16 Gm Btl (*Bkc) NASAL 1 spray DAILY PRN Administration allergy symptoms Furosemide 40 mg 06/13/24 10:45 06/14/24 08:21 Furosemide Inj 40 Mg/4 Ml Vial IV PUSH 40 mg BID JUDITH Administration Glucagon 1 mg 06/13/24 07:58 Glucagon For Inj 1 Mg Vial IM PRN PRN Hypoglycemia Protocol Glucose 15 gm 06/13/24 07:58 Glucose Oral Gel 15 Gm Of Glucse In 37.5 Gm Tube PO PRN PRN Hypoglycemia Protocol Hydroxychloroquine Sulfate 200 mg 06/13/24 09:00 06/14/24 08:15 Hydroxychloroquine Sulfate 200 Mg Tablet PO 200 mg Q12HR JUDITH Administration Dextrose 1,000 mls @ 100 mls/hr 06/13/24 07:58 Dextrose 5% 1,000 Ml IVPB PRN PRN Hypoglycemia Protocol Insulin Aspart 3 - 6 units 06/13/24 08:00 06/14/24 07:57 Insulin Aspart (*Bkc) 100 Units/Ml SUB-Q Not Given TIDWM JUDITH Protocol Insulin Aspart 1 - 3 units 06/13/24 21:00 06/13/24 20:01 Insulin Aspart (*Bkc) 100 Units/Ml SUB-Q Not Given HS [facility] Protocol Insulin Aspart 5 units 06/14/24 08:00 06/14/24 08:15 Insulin Aspart (*Bkc) 100 Units/Ml SUB-Q 07/13/24 08:49 5 units TIDWM JUDITH Administration Insulin Glargine 23 units 06/12/24 23:55 06/13/24 20:05 Insulin Glargine (*Bkc) 100 Units/Ml 0.2 units/kg (23 units) 23 units SUB-Q Administration HS [facility] Lisinopril 20 mg 06/14/24 09:00 06/14/24 08:15 Lisinopril 20 Mg Tablet PO 20 mg QAM JUDITH Administration Loratadine 10 mg 06/13/24 09:00 06/14/24 08:14 Loratadine 10 Mg Tablet PO 07/13/24 08:59 10 mg DAILY JUDITH Administration Magnesium Oxide 400 mg 06/13/24 21:00 06/13/24 20:04 Magnesium Oxide 400 Mg Tablet PO 400 mg HS JUDITH Administration Miscellaneous Information 0 each 06/13/24 00:01 Clarify Ibuprofen- Max Dose Is 800mg Per Single Dose. XX 07/13/24 00:00 CLARIFY JUDITH Miscellaneous Information 0 each 06/13/24 00:01 Progesterone Micronized= Non Formulary, Can Patient Use From Home? XX 07/13/24 00:00 CLARIFY [facility] Nadolol 80 mg 06/13/24 09:00 06/14/24 06:06 Nadolol 20 Mg Tablet PO 80 mg Q8HR JUDITH Administration Non-Formulary Medication 1,600 mg 06/13/24 08:22 Ibuprofen PO BID PRN Headache Non-Formulary Medication 100 mg 06/13/24 18:00 Progesterone Micronized PO 07/13/24 17:59 QPM JUDITH Perflutren Lipid Microsphere 0 ml 06/13/24 10:40 Perflutren Lipid Microspheres 1.5 Ml Vial Diluted To 10 Ml Total Volume IV PUSH 06/16/24 10:40 ONCE PRN adequate visualization Protocol Potassium Chloride 40 meq 06/13/24 09:25 06/14/24 08:14 Potassium Chloride 20 Meq Er Tablet PO 40 meq BIDWM JUDITH Administration Pregabalin 200 mg 06/13/24 09:00 06/14/24 08:14 Pregabalin (*Crx) 50 Mg Capsule PO 200 mg DAILY JUDITH Administration Rosuvastatin Calcium 40 mg 06/13/24 21:00 06/13/24 20:04 Rosuvastatin 20 Mg Tablet PO 40 mg MoWe@2100 JUDITH Administration Fluticasone/Salmeterol 2 puff 06/13/24 08:55 06/14/24 08:10 Fluticasone/Salmeterol 230-21 Mcg Inhaler 1 Puff INHALATION 2 puff Q12HRT JUDITH Administration Trazodone HCl 50 mg 06/13/24 08:22 06/13/24 20:06 Trazodone Hcl 50 Mg Tablet PO 50 mg QHS PRN Administration Insomnia Radiology Results: ITS Impressions Chest X-Ray 06/12/24 18:57 IMPRESSION: No acute cardiopulmonary pathology. Labs Labs: Laboratory Results - last 24 hr 06/13/24 06/13/24 06/13/24 02:04 11:17 15:44 POC Capillary Glucose 220 H 120 H NT-Pro-B Natriuret Pep 635 H 06/13/24 06/14/24 19:59 07:44 POC Capillary Glucose 170 H 177 H NT-Pro-B Natriuret Pep
[2024-06-14 11:41] LABS: Basophils Absolute Auto 0.1 K/mm3 (0.0-0.1); Basophils Percent Auto 0.7 % (0.2-1.2); Eosinophils Percent Auto 0.5 % (0-4.4); Hematocrit 40.1 % (37.0-47.0); Hemoglobin 12.6 g/dL (12.0-15.0); Immature Granulocyte Absolute 0.03 K/mm3 (0.00-0.031); Immature Granulocyte Percent A 0.3 % (0-0.5); Lymphocytes Percent Auto 26.2 % (18.3-44.2); Mean Corpuscular HGB Conc 31.4 g/dl (32-36); Mean Corpuscular Hemoglobin 28.2 pg (26-34); Mean Corpuscular Volume 89.7 fl (80-100); Mean Platelet Volume 10.7 fl (7.4-10.4); Monocytes Absolute Auto 0.8 K/mm3 (0.1-0.6); Monocytes Percent Auto 8.6 % (2.6-8.5); Neutrophils Absolute Auto 5.6 K/mm3 (1.3-6.7); Neutrophils Percent Auto 63.7 % (45.5-73.1); Platelet Count Result 168 k/mm3 (150-375); Red Blood Count 4.47 M/mm3 (4.2-5.4); Red Cell Distribution Width 13.8 % (11.5-14.5); White Blood Count 8.8 K/mm3 (4.5-10.0)
[2024-06-14 11:44] LABS: Glucose Point of Care 184 mg/dl (65-105)
[2024-06-14 11:56] LABS: Anion Gap 12 mmol/L (4-12); Blood Urea Nitrogen 11 mg/dL (7-17); Calcium 9.4 mg/dL (8.4-10.2); Carbon Dioxide 26 mmol/L (22-30); Chloride 106 mmol/L (98-107); Estimated CRCL calculation 117 ml/min; Estimated Glomerular Filt Rate > 60; Glucose 162 mg/dL (65-110); Magnesium 1.4 mg/dL (1.6-2.3); Potassium 3.7 mmol/L (3.4-5.0); Sodium 144 mmol/L (137-145)
--- NOTE | 2024-06-14 15:44 | P.PNCA_ITS ---
Progress Note: A&P Assessment and Plan (1) Lower extremity edema: Code(s): R60.0 - Localized edema Status: Acute Plan 1. Lower extremity edema 2. HTN 3. Non cardiac chest pain TTE (06/13/2024) EF 55-60%, normal diastolic function, no wall motion abnormality -it is my clinical impression that this patient has lower extremity swelling is most likely secondary to amlodipine. LV systolic function is normal and so is her diastolic function. There may be some underlying diastolic dysfunction which to be due to hypertension. However the echo showed normal diastolic function -her pretest probability for CAD is low as per the Kelsey-Lilian model. No further noninvasive/invasive evaluation is required during this admission. She will need an ischemic evaluation if she continues to have symptoms. - will discontinue clonidine. There may be some rebound hypertension, will continue to monitor. No breakthrough antihypertensive to be given on unless the blood pressures is more than 170 systolic - Increase Lisinopril to 40 mg PO OD from tomorrow -discussed switching her nadolol to carvedilol, she agreed to the plan -continue to monitor blood pressure and optimize - Switch to oral lasix from tomorrow - Restrict oral fluid to 2547-6300 ml Subjective Date/time seen: 06/14/24 15:44 Interval history: Good urine output She has no acute events overnight renal function stable Blood pressure is better but still elevated Review of Systems Review of Systems: ROS negative except above All systems reviewed & are unremarkable except as noted in HPI and below Exam Narrative: GENERAL: Pleasant, in no acute distress. Well-nourished. Obesity - EYES: EOMI. Anicteric. - HENT: Moist mucous membranes. - LUNGS: Coarse breath sound bilateral base - CARDIOVASCULAR: Regular rate and rhyth m. No murmur. JVD is not appreciated because of obesity. - ABDOMEN: Soft, non-tender and non-dist ended. No palpable masses. - EXTREMITIES: 2+ edema. Peripheral pul ses 2+. Non-tender. - NEUROLOGIC: No focal neurological defi cits. CN II-XII grossly intact. - PSYCHIATRIC: Awake, Alert and oriented x 3. Appropriate mood and affect. - SKIN: No rashes or lesions. Warm. - LYMPH: No cervical lymphadenopathy. Objective Data Vital Signs Vital Signs: Vital Signs - 24 hr 06/13/24 15:52 06/13/24 16:00 06/13/24 18:00 Temperature 36.7 C Pulse Rate 61 61 61 Respiratory Rate 20 Blood Pressure 151/69 H Pulse Oximetry 99 Oxygen Delivery Fraction of Inspired Oxygen 06/13/24 19:50 06/13/24 20:00 06/13/24 20:00 Temperature 37.2 C Pulse Rate 64 64 Respiratory Rate 16 Blood Pressure 143/67 H Pulse Oximetry 96 Oxygen Delivery Room Air Fraction of Inspired Oxygen 06/13/24 20:02 06/13/24 20:04 06/13/24 23:51 Temperature 36.8 C Pulse Rate 60 65 58 L Respiratory Rate 18 Blood Pressure 157/74 H Pulse Oximetry 98 96 Oxygen Delivery Room Air Fraction of Inspired Oxygen 21 06/13/24 23:57 06/14/24 00:00 06/14/24 03:53 Temperature Pulse Rate 57 L Respiratory Rate Blood Pressure Pulse Oximetry Oxygen Delivery Room Air Room Air Fraction of Inspired Oxygen 06/14/24 04:00 06/14/24 04:29 06/14/24 06:06 Temperature 36.7 C Pulse Rate 62 61 59 L Respiratory Rate 20 Blood Pressure 144/66 H Pulse Oximetry 98 Oxygen Delivery Fraction of Inspired Oxygen 06/14/24 08:00 06/14/24 08:09 06/14/24 08:10 Temperature 36.8 C Pulse Rate 57 L 58 L Respiratory Rate 20 Blood Pressure 133/59 L Pulse Oximetry 97 93 Oxygen Delivery Room Air Fraction of Inspired Oxygen 06/14/24 10:00 06/14/24 12:00 06/14/24 12:03 Temperature 36.8 C Pulse Rate 58 L 56 L 56 L Respiratory Rate 18 Blood Pressure 148/72 H Pulse Oximetry 100 Oxygen Delivery Fraction of Inspired Oxygen 06/14/24 14:00 06/14/24 14:34 Temperature Pulse Rate 56 L 46 L Respiratory Rate Blood Pressure Pulse Oximetry Oxygen Delivery Fraction of Inspired Oxygen Intake/Output Intake/Output: Intake & Output 06/11/24 06/12/24 06/13/24 06/14/24 23:59 23:59 23:59 23:59 Intake Total 1530 1480 Output Total 4500 500 Balance -2970 980 Meds/Results Medications: Active Medications Generic Name Dose Route Start Last Admin Trade Name Freq PRN Reason Stop Dose Admin Hydrocodone Bitart/Acetaminophen 1 tab 06/13/24 08:22 06/14/24 11:08 Hydrocodone/Acetaminophen (*Crx) 7.5-325 Mg Tablet PO 1 tab TID PRN Administration pain Albuterol 2.5 mg 06/13/24 08:22 06/13/24 15:18 Albuterol Sulfate Neb 2.5 Mg/3 Ml Inh INHALATION 2.5 mg Q6HRT PRN Administration Shortness Of Breath Or Wheezing Aspirin 81 mg 06/13/24 09:00 06/14/24 08:15 Aspirin 81 Mg Enteric Tablet PO 07/13/24 08:59 81 mg DAILY JUDITH Administration Carvedilol 12.5 mg 06/14/24 21:00 Carvedilol 12.5 Mg Tablet PO Q12HR [facility] Cyclobenzaprine HCl 5 mg 06/13/24 08:22 06/14/24 04:03 Cyclobenzaprine Hcl 5 Mg Tablet PO 5 mg TID PRN Administration muscle pain Dextrose 12.5 gm 06/13/24 07:58 Dextrose 50% 25 Gm/50 Ml Syringe IV PUSH PRN PRN Hypoglycemia Protocol Ergocalciferol 50,000 units 06/13/24 09:00 06/13/24 10:22 Ergocalciferol 50,000 Units Capsule PO 50,000 units Mo@0900 [facility] Administration Escitalopram Oxalate 10 mg 06/13/24 09:00 06/14/24 08:15 Escitalopram Oxalate 10 Mg Tablet PO 10 mg DAILY JUDITH Administration Famotidine 20 mg 06/13/24 08:22 Famotidine 20 Mg Tablet PO BID PRN acid reflux Ferrous Sulfate 325 mg 06/13/24 08:50 06/14/24 08:14 Ferrous Sulfate [address] PO 325 mg DAILY@0800 JUDITH Administration Fluticasone Propionate 1 spray 06/13/24 08:22 06/14/24 08:17 Fluticasone Propionate 0.05% Na Spr 16 Gm Btl (*Bkc) NASAL 1 spray DAILY PRN Administration allergy symptoms Furosemide 40 mg 06/13/24 10:45 06/14/24 08:21 Furosemide Inj 40 Mg/4 Ml Vial IV PUSH 40 mg BID JUDITH Administration Glucagon 1 mg 06/13/24 07:58 Glucagon For Inj 1 Mg Vial IM PRN PRN Hypoglycemia Protocol Glucose 15 gm 06/13/24 07:58 Glucose Oral Gel 15 Gm Of Glucse In 37.5 Gm Tube PO PRN PRN Hypoglycemia Protocol Hydroxychloroquine Sulfate 200 mg 06/13/24 09:00 06/14/24 08:15 Hydroxychloroquine Sulfate 200 Mg Tablet PO 200 mg Q12HR JUDITH Administration Dextrose 1,000 mls @ 100 mls/hr 06/13/24 07:58 Dextrose 5% 1,000 Ml IVPB PRN PRN Hypoglycemia Protocol Insulin Aspart 3 - 6 units 06/13/24 08:00 06/14/24 11:45 Insulin Aspart (*Bkc) 100 Units/Ml SUB-Q Not Given TIDWM JUDITH Protocol Insulin Aspart 1 - 3 units 06/13/24 21:00 06/13/24 20:01 Insulin Aspart (*Bkc) 100 Units/Ml SUB-Q Not Given HS JUDITH Protocol Insulin Aspart 5 units 06/14/24 08:00 06/14/24 11:46 Insulin Aspart (*Bkc) 100 Units/Ml SUB-Q 07/13/24 08:49 5 units TIDWM JUDITH Administration Insulin Glargine 23 units 06/12/24 23:55 06/13/24 20:05 Insulin Glargine (*Bkc) 100 Units/Ml 0.2 units/kg (23 units) 23 units SUB-Q Administration HS [facility] Lisinopril 40 mg 06/15/24 09:00 Lisinopril 20 Mg Tablet PO QAM JUDITH Loratadine 10 mg 06/13/24 09:00 06/14/24 08:14 Loratadine 10 Mg Tablet PO 07/13/24 08:59 10 mg DAILY JUDITH Administration Magnesium Oxide 400 mg 06/13/24 21:00 06/13/24 20:04 Magnesium Oxide 400 Mg Tablet PO 400 mg HS JUDITH Administration Miscellaneous Information 0 each 06/13/24 00:01 Clarify Ibuprofen- Max Dose Is 800mg Per Single Dose. XX 07/13/24 00:00 CLARIFY JUDITH Miscellaneous Information 0 each 06/13/24 00:01 Progesterone Micronized= Non Formulary, Can Patient Use From Home? XX 07/13/24 00:00 CLARIFY JUDITH Non-Formulary Medication 1,600 mg 06/13/24 08:22 Ibuprofen PO BID PRN Headache Non-Formulary Medication 100 mg 06/13/24 18:00 Progesterone Micronized PO 07/13/24 17:59 QPM JUDITH Perflutren Lipid Microsphere 0 ml 06/13/24 10:40 Perflutren Lipid Microspheres 1.5 Ml Vial Diluted To 10 Ml Total Volume IV PUSH 06/16/24 10:40 ONCE PRN adequate visualization Protocol Potassium Chloride 40 meq 06/13/24 09:25 06/14/24 08:14 Potassium Chloride 20 Meq Er Tablet PO 40 meq BIDWM JUDITH Administration Pregabalin 200 mg 06/13/24 09:00 06/14/24 08:14 Pregabalin (*Crx) 50 Mg Capsule PO 200 mg DAILY JUDITH Administration Rosuvastatin Calcium 40 mg 06/13/24 21:00 06/13/24 20:04 Rosuvastatin 20 Mg Tablet PO 40 mg MoWe@2100 JUDITH Administration Fluticasone/Salmeterol 2 puff 06/13/24 08:55 06/14/24 08:10 Fluticasone/Salmeterol 230-21 Mcg Inhaler 1 Puff INHALATION 2 puff Q12HRT JUDITH Administration Trazodone HCl 50 mg 06/13/24 08:22 06/13/24 20:06 Trazodone Hcl 50 Mg Tablet PO 50 mg QHS PRN Administration Insomnia Radiology Results: ITS Impressions Chest X-Ray 06/12/24 18:57 IMPRESSION: No acute cardiopulmonary pathology. Labs Labs: Laboratory Results - last 24 hr 06/13/24 06/13/24 06/14/24 15:44 19:59 07:44 WBC RBC Hgb Hct MCV MCH MCHC RDW Plt Count MPV Immature Gran % (Auto) Neut % (Auto) Lymph % (Auto) [place] % (Auto) Eos % (Auto) Baso % (Auto) Lymph # (Auto) [place] # (Auto) Eos # (Auto) Baso # (Auto) Abs Immat Gran (auto) Absolute Neuts (auto) Absolute Nucleated RBC Nucleated RBC % Sodium Potassium Chloride Carbon Dioxide Anion Gap BUN Creatinine Estim Creat Clear Calc Estimated GFR Glucose POC Capillary Glucose 120 H 170 H 177 H Calcium Magnesium 06/14/24 06/14/24 11:19 11:31 WBC 8.8 RBC 4.47 Hgb 12.6 Hct 40.1 MCV 89.7 MCH 28.2 MCHC 31.4 L RDW 13.8 Plt Count 168 MPV 10.7 H Immature Gran % (Auto) 0.3 Neut % (Auto) 63.7 Lymph % (Auto) 26.2 [place] % (Auto) 8.6 H Eos % (Auto) 0.5 Baso % (Auto) 0.7 Lymph # (Auto) 2.30 [place] # (Auto) 0.8 H Eos # (Auto) 0.0 Baso # (Auto) 0.1 Abs Immat Gran (auto) 0.03 Absolute Neuts (auto) 5.6 Absolute Nucleated RBC 0.000 Nucleated RBC % 0.0 Sodium 144 Potassium 3.7 Chloride 106 Carbon Dioxide 26 Anion Gap 12 BUN 11 Creatinine 0.56 L Estim Creat Clear Calc 117 Estimated GFR > 60 Glucose 162 H POC Capillary Glucose 184 H Calcium 9.4 Magnesium 1.4 L
[2024-06-14 15:59] LABS: Glucose Point of Care 221 mg/dl (65-105)
[2024-06-14 20:40] LABS: Glucose Point of Care 136 mg/dl (65-105)
[2024-06-14] MEDS: carvediloL 12.5 MG TABLET PO (21:01)
[2024-06-14] MEDS: MAGNESIUM OXIDE 400 MG TABLET PO (21:01)
[2024-06-14] MEDS: INSULIN GLARGINE (*BKC) 100 UNITS/ML 23 UNITS SUB-Q (21:03)
[2024-06-14] MEDS: traZODone HCL 50 MG TABLET PO (21:08)
[2024-06-15] VITALS (15 sets, daily range): BP systolic 120–143; BP diastolic 56–81; PULSE 55–63; RESP 18–20; TEMP 36.2–36.8; O2SAT 97–100
[2024-06-15 04:35] LABS: Basophils Percent Auto 0.6 % (0.2-1.2); Eosinophils Absolute Auto 0.1 K/mm3 (0-0.3); Eosinophils Percent Auto 1.3 % (0-4.4); Hematocrit 36.9 % (37.0-47.0); Hemoglobin 11.6 g/dL (12.0-15.0); Immature Granulocyte Absolute 0.01 K/mm3 (0.00-0.031); Immature Granulocyte Percent A 0.1 % (0-0.5); Lymphocytes Absolute Auto 2.35 K/mm3 (0.9-3.2); Lymphocytes Percent Auto 34.7 % (18.3-44.2); Mean Corpuscular HGB Conc 31.4 g/dl (32-36); Mean Corpuscular Volume 88.9 fl (80-100); Mean Platelet Volume 10.9 fl (7.4-10.4); Monocytes Absolute Auto 0.6 K/mm3 (0.1-0.6); Monocytes Percent Auto 9.1 % (2.6-8.5); Neutrophils Absolute Auto 3.7 K/mm3 (1.3-6.7); Neutrophils Percent Auto 54.2 % (45.5-73.1); Platelet Count Result 160 k/mm3 (150-375); Red Blood Count 4.15 M/mm3 (4.2-5.4); Red Cell Distribution Width 13.7 % (11.5-14.5); White Blood Count 6.8 K/mm3 (4.5-10.0)
[2024-06-15 04:55] LABS: Anion Gap 12 mmol/L (4-12); Blood Urea Nitrogen 16 mg/dL (7-17); Calcium 8.8 mg/dL (8.4-10.2); Carbon Dioxide 23 mmol/L (22-30); Chloride 108 mmol/L (98-107); Estimated CRCL calculation 122 ml/min; Estimated Glomerular Filt Rate > 60; Glucose 154 mg/dL (65-110); Magnesium 1.6 mg/dL (1.6-2.3); Potassium 3.3 mmol/L (3.4-5.0); Sodium 143 mmol/L (137-145)
[2024-06-15] MEDS: FLUTICASONE/SALMETEROL 230-21 MCG INHALER 1 PUFF 2 PUFF INHALATION ×2 (07:23→20:42)
[2024-06-15 07:40] LABS: Glucose Point of Care 149 mg/dl (65-105)
[2024-06-15] MEDS: INSULIN ASPART (*BKC) 100 UNITS/ML SUB-Q ×3 (08:54→16:44)
[2024-06-15] MEDS: PREGABALIN (*CRX) 50 MG CAPSULE 200 MG PO (08:59)
[2024-06-15] MEDS: HYDROcodone/acetaminophen (*CRX) 7.5-325 MG TABLET 1 TAB PO ×2 (09:00→20:58)
[2024-06-15] MEDS: POTASSIUM CHLORIDE 20 MEQ ER TABLET 40 MEQ PO ×2 (09:00→16:45)
[2024-06-15] MEDS: FERROUS SULFATE 325 MG TABLET DR PO (09:00)
[2024-06-15] MEDS: LORATADINE 10 MG TABLET PO (09:00)
[2024-06-15] MEDS: HYDROXYCHLOROQUINE SULFATE 200 MG TABLET PO ×2 (09:00→20:37)
[2024-06-15] MEDS: lisinopriL 20 MG TABLET 40 MG PO (09:00)
[2024-06-15] MEDS: CYCLOBENZAPRINE HCL 5 MG TABLET PO ×2 (09:01→20:59)
[2024-06-15] MEDS: ASPIRIN 81 MG ENTERIC TABLET PO (09:01)
[2024-06-15] MEDS: ESCITALOPRAM OXALATE 10 MG TABLET PO (09:01)
[2024-06-15] MEDS: carvediloL 12.5 MG TABLET PO ×2 (09:01→20:37)
--- NOTE | 2024-06-15 09:20 | PM.PNCARD ---
Progress Note: A&P Assessment and Plan (1) Lower extremity edema: Code(s): R60.0 - Localized edema Status: Acute Plan 1. Lower extremity edema 2. HTN 3. Non cardiac chest pain TTE (06/13/2024) EF 55-60%, normal diastolic function, no wall motion abnormality -it is my clinical impression that this patient has lower extremity swelling is most likely secondary to amlodipine. LV systolic function is normal and so is her diastolic function. There may be some underlying diastolic dysfunction which to be due to hypertension. However the echo showed normal diastolic function -her pretest probability for CAD is low as per the Kelsey-Lilian model. No further noninvasive/invasive evaluation is required during this admission. She will need an ischemic evaluation if she continues to have symptoms. -continue carvedilol and lisinopril at current doses -continue to monitor blood pressure and optimize -continue oral Lasix - Restrict oral fluid to 8910-3754 ml Subjective Date/time seen: 06/15/24 09:20 Interval history: No acute events overnight Heart rate and blood pressure better controlled Review of Systems Review of Systems: ROS negative except above All systems reviewed & are unremarkable except as noted in HPI and below Exam Narrative: GENERAL: Pleasant, in no acute distress. Well-nourished. Obesity - EYES: EOMI. Anicteric. - HENT: Moist mucous membranes. - LUNGS: Coarse breath sound bilateral base - CARDIOVASCULAR: Regular rate and rhythm. No murmur. JVD is not appreciated because of obesity. - ABDOMEN: Soft, non-tender and non-distended. No palpable masses. - EXTREMITIES: 2+ edema. Peripheral pulses 2+. Non-tender. - NEUROLOGIC: No focal neurological deficits. CN II-XII grossly intact. - PSYCHIATRIC: Awake, Alert and oriented x 3. Appropriate mood and affect. - SKIN: No rashes or lesions. Warm. - LYMPH: No cervical lymphadenopathy. Objective Data Vital Signs Vital Signs: Vital Signs - 24 hr 06/14/24 10:00 06/14/24 12:00 06/14/24 12:03 Temperature 36.8 C Pulse Rate 58 L 56 L 56 L Respiratory Rate 18 Blood Pressure 148/72 H Pulse Oximetry 100 Oxygen Delivery 06/14/24 14:00 06/14/24 14:34 06/14/24 16:00 Temperature Pulse Rate 56 L 46 L 57 L Respiratory Rate Blood Pressure Pulse Oximetry Oxygen Delivery 06/14/24 16:17 06/14/24 18:00 06/14/24 20:00 Temperature 36.8 C Pulse Rate 57 L 55 L 57 L Respiratory Rate 20 Blood Pressure 137/65 Pulse Oximetry 98 Oxygen Delivery 06/14/24 20:01 06/14/24 21:01 06/14/24 21:29 Temperature 36.8 C Pulse Rate 62 59 L 54 L Respiratory Rate 20 20 Blood Pressure 135/51 L Pulse Oximetry 95 Oxygen Delivery 06/14/24 21:32 06/14/24 22:00 06/14/24 23:42 Temperature 37.1 C Pulse Rate 54 L 53 L 52 L Respiratory Rate 20 Blood Pressure 128/60 Pulse Oximetry 95 98 Oxygen Delivery Room Air 06/15/24 00:00 06/15/24 02:00 06/15/24 04:00 Temperature Pulse Rate 62 57 L 60 Respiratory Rate Blood Pressure Pulse Oximetry Oxygen Delivery 06/15/24 04:28 06/15/24 06:33 06/15/24 07:25 Temperature 36.7 C Pulse Rate 55 L 62 Respiratory Rate 20 Blood Pressure 120/56 L Pulse Oximetry 100 97 Oxygen Delivery Room Air 06/15/24 07:54 06/15/24 09:01 Temperature 36.7 C Pulse Rate 56 L 63 Respiratory Rate 20 Blood Pressure 130/60 Pulse Oximetry 100 Oxygen Delivery Intake/Output Intake/Output: Intake & Output 06/12/24 06/13/24 06/14/24 06/15/24 23:59 23:59 23:59 23:59 Intake Total 1530 2180 520 Output Total 4500 900 900 Balance -2970 1280 -380 Meds/Results Medications: Active Medications Generic Name Dose Route Start Last Admin Trade Name Freq PRN Reason Stop Dose Admin Hydrocodone Bitart/Acetaminophen 1 tab 06/13/24 08:22 06/15/24 09:00 Hydrocodone/Acetaminophen (*Crx) 7.5-325 Mg Tablet PO 1 tab TID PRN Administration pain Albuterol 2.5 mg 06/13/24 08:22 06/13/24 15:18 Albuterol Sulfate Neb 2.5 Mg/3 Ml Inh INHALATION 2.5 mg Q6HRT PRN Administration Shortness Of Breath Or Wheezing Aspirin 81 mg 06/13/24 09:00 06/15/24 09:01 Aspirin 81 Mg Enteric Tablet PO 07/13/24 08:59 81 mg DAILY JUDITH Administration Carvedilol 12.5 mg 06/14/24 21:00 06/15/24 09:01 Carvedilol 12.5 Mg Tablet PO 12.5 mg Q12HR JUIDTH Administration Cyclobenzaprine HCl 5 mg 06/13/24 08:22 06/15/24 09:01 Cyclobenzaprine Hcl 5 Mg Tablet PO 5 mg TID PRN Administration muscle pain Dextrose 12.5 gm 06/13/24 07:58 Dextrose 50% 25 Gm/50 Ml Syringe IV PUSH PRN PRN Hypoglycemia Protocol Ergocalciferol 50,000 units 06/13/24 09:00 06/13/24 10:22 Ergocalciferol 50,000 Units Capsule PO 50,000 units Mo@0900 JUDITH Administration Escitalopram Oxalate 10 mg 06/13/24 09:00 06/15/24 09:01 Escitalopram Oxalate 10 Mg Tablet PO 10 mg DAILY JUDITH Administration Famotidine 20 mg 06/13/24 08:22 Famotidine 20 Mg Tablet PO BID PRN acid reflux Ferrous Sulfate 325 mg 06/13/24 08:50 06/15/24 09:00 Ferrous Sulfate [address] PO 325 mg DAILY@0800 JUDITH Administration Fluticasone Propionate 1 spray 06/13/24 08:22 06/14/24 08:17 Fluticasone Propionate 0.05% Na Spr 16 Gm Btl (*Bkc) NASAL 1 spray DAILY PRN Administration allergy symptoms Furosemide 40 mg 06/13/24 10:45 06/14/24 16:56 Furosemide Inj 40 Mg/4 Ml Vial IV PUSH 40 mg BID JUDITH Administration Furosemide 40 mg 06/16/24 09:00 Furosemide 40 Mg Tablet PO DAILY JUDITH Glucagon 1 mg 06/13/24 07:58 Glucagon For Inj 1 Mg Vial IM PRN PRN Hypoglycemia Protocol Glucose 15 gm 06/13/24 07:58 Glucose Oral Gel 15 Gm Of Glucse In 37.5 Gm Tube PO PRN PRN Hypoglycemia Protocol Hydroxychloroquine Sulfate 200 mg 06/13/24 09:00 06/15/24 09:00 Hydroxychloroquine Sulfate 200 Mg Tablet PO 200 mg Q12HR JUDITH Administration Dextrose 1,000 mls @ 100 mls/hr 06/13/24 07:58 Dextrose 5% 1,000 Ml IVPB PRN PRN Hypoglycemia Protocol Insulin Aspart 3 - 6 units 06/13/24 08:00 06/15/24 08:14 Insulin Aspart (*Bkc) 100 Units/Ml SUB-Q Not Given TIDWM JUDITH Protocol Insulin Aspart 1 - 3 units 06/13/24 21:00 06/14/24 20:44 Insulin Aspart (*Bkc) 100 Units/Ml SUB-Q Not Given HS JUDITH Protocol Insulin Aspart 5 units 06/14/24 08:00 06/15/24 08:54 Insulin Aspart (*Bkc) 100 Units/Ml SUB-Q 07/13/24 08:49 5 units TIDWM JUDITH Administration Insulin Glargine 23 units 06/12/24 23:55 06/14/24 21:03 Insulin Glargine (*Bkc) 100 Units/Ml 0.2 units/kg (23 units) 23 units SUB-Q Administration HS JUDITH Lisinopril 40 mg 06/15/24 09:00 06/15/24 09:00 Lisinopril 20 Mg Tablet PO 40 mg QAM JUDITH Administration Loratadine 10 mg 06/13/24 09:00 06/15/24 09:00 Loratadine 10 Mg Tablet PO 07/13/24 08:59 10 mg DAILY JUDITH Administration Magnesium Oxide 400 mg 06/13/24 21:00 06/14/24 21:01 Magnesium Oxide 400 Mg Tablet PO 400 mg HS JUDITH Administration Miscellaneous Information 0 each 06/13/24 00:01 06/15/24 08:13 Clarify Ibuprofen- Max Dose Is 800mg Per Single Dose. XX 07/13/24 00:00 Not Given CLARIFY JUDITH Miscellaneous Information 0 each 06/13/24 00:01 06/15/24 08:13 Progesterone Micronized= Non Formulary, Can Patient Use From Home? XX 07/13/24 00:00 Not Given CLARIFY JUDITH Non-Formulary Medication 1,600 mg 06/13/24 08:22 Ibuprofen PO BID PRN Headache Non-Formulary Medication 100 mg 06/13/24 18:00 Progesterone Micronized PO 07/13/24 17:59 QPM JUDITH Perflutren Lipid Microsphere 0 ml 06/13/24 10:40 Perflutren Lipid Microspheres 1.5 Ml Vial Diluted To 10 Ml Total Volume IV PUSH 06/16/24 10:40 ONCE PRN adequate visualization Protocol Potassium Chloride 40 meq 06/13/24 09:25 06/15/24 09:00 Potassium Chloride 20 Meq Er Tablet PO 40 meq BIDWM JUDITH Administration Pregabalin 200 mg 06/13/24 09:00 06/15/24 08:59 Pregabalin (*Crx) 50 Mg Capsule PO 200 mg DAILY JUDITH Administration Rosuvastatin Calcium 40 mg 06/13/24 21:00 06/13/24 20:04 Rosuvastatin 20 Mg Tablet PO 40 mg MoWe@2100 JUDITH Administration Fluticasone/Salmeterol 2 puff 06/13/24 08:55 06/15/24 07:23 Fluticasone/Salmeterol 230-21 Mcg Inhaler 1 Puff INHALATION 2 puff Q12HRT JUDITH Administration Trazodone HCl 50 mg 06/13/24 08:22 06/14/24 21:08 Trazodone Hcl 50 Mg Tablet PO 50 mg QHS PRN Administration Insomnia Radiology Results: ITS Impressions Chest X-Ray 06/12/24 18:57 IMPRESSION: No acute cardiopulmonary pathology. Labs Labs: Laboratory Results - last 24 hr 06/14/24 06/14/24 06/14/24 11:19 11:31 15:26 WBC 8.8 RBC 4.47 Hgb 12.6 Hct 40.1 MCV 89.7 MCH 28.2 MCHC 31.4 L RDW 13.8 Plt Count 168 MPV 10.7 H Immature Gran % (Auto) 0.3 Neut % (Auto) 63.7 Lymph % (Auto) 26.2 [place] % (Auto) 8.6 H Eos % (Auto) 0.5 Baso % (Auto) 0.7 Lymph # (Auto) 2.30 [place] # (Auto) 0.8 H Eos # (Auto) 0.0 Baso # (Auto) 0.1 Abs Immat Gran (auto) 0.03 Absolute Neuts (auto) 5.6 Absolute Nucleated RBC 0.000 Nucleated RBC % 0.0 Sodium 144 Potassium 3.7 Chloride 106 Carbon Dioxide 26 Anion Gap 12 BUN 11 Creatinine 0.56 L Estim Creat Clear Calc 117 Estimated GFR > 60 Glucose 162 H POC Capillary Glucose 184 H 221 H Calcium 9.4 Magnesium 1.4 L 06/14/24 06/15/24 06/15/24 20:37 04:16 07:30 WBC 6.8 RBC 4.15 L Hgb 11.6 L Hct 36.9 L MCV 88.9 MCH 28.0 MCHC 31.4 L RDW 13.7 Plt Count 160 MPV 10.9 H Immature Gran % (Auto) 0.1 Neut % (Auto) 54.2 Lymph % (Auto) 34.7 [place] % (Auto) 9.1 H Eos % (Auto) 1.3 Baso % (Auto) 0.6 Lymph # (Auto) 2.35 [place] # (Auto) 0.6 Eos # (Auto) 0.1 Baso # (Auto) 0.0 Abs Immat Gran (auto) 0.01 Absolute Neuts (auto) 3.7 Absolute Nucleated RBC 0.000 Nucleated RBC % 0.0 Sodium 143 Potassium 3.3 L Chloride 108 H Carbon Dioxide 23 Anion Gap 12 BUN 16 Creatinine 0.56 L Estim Creat Clear Calc 122 Estimated GFR > 60 Glucose 154 H POC Capillary Glucose 136 H 149 H Calcium 8.8 Magnesium 1.6
--- NOTE | 2024-06-15 09:48 | PM.IMPN ---
Progress Note: A&P Assessment and Plan (1) Anxiety and depression: Code(s): F41.9 - Anxiety disorder, unspecified; F32.9 - Major depressive disorder, single episode, unspecified Status: Acute (2) HTN (hypertension): Code(s): I10 - Essential (primary) hypertension Status: Acute (3) Chest pain: Qualifiers: Chest pain type: unspecified Qualified Code(s): R07.9 - Chest pain, unspecified Code(s): R07.9 - Chest pain, unspecified Status: Acute (4) Uncontrolled type 2 diabetes mellitus: Status: Acute (5) Asthma: Code(s): J45.909 - Unspecified asthma, uncomplicated Status: Acute (6) Iron deficiency anemia: Code(s): D50.9 - Iron deficiency anemia, unspecified Status: Acute (7) Diastolic heart failure: Code(s): I50.30 - Unspecified diastolic (congestive) heart failure Status: Acute (8) Hypokalemia: Code(s): E87.6 - Hypokalemia Status: Acute Plan Chest pain Patient has been having intermittent chest pain since yesterday, aggravated by exertion Troponin negative, EKG shows sinus rhythm no specific ST T-wave changes Need to rule out ACS Start aspirin 325 mg once 81 mg daily p.o. Nitroglycerin sublingual p.r.n. 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 changed to Lasix 40 mg b.i.d. IV push Follow-up of BMP BNP: 1961 on arrival Follow-up echocardiogram 1. Complete two-dimensional, color flow and Doppler transthoracic echocardiogram is performed. 2. Left ventricular systolic function is normal, estimated at 55-60%. 3. There is mild tricuspid valve regurgitation. 4. No pulmonary hypertension, estimated pulmonary arterial systolic pressure is 27 mmHg. Continue IV Lasix 40 mg b.i.d. IV push till tomorrow Essential hypertension Continue amlodipine 10 mg daily p.o., clot leading 0.1 mg t.i.d. p.o., Iron deficiency anemia Hemoglobin stable Continue ferrous sulfate 325 mg daily p.o. Uncontrolled type 2 diabetes Home metformin during p.o. Continue Lantus 23 units q.h.s., lispro 10 units q.h.s., and sliding scale a.c. q.h.s. Optimize medication to control glucose in the target range Subjective Date/time seen: 06/15/24 09:48 Interval history: I saw exam patient today, patient feels shortness breath improved significantly, denies chest pain Patient afebrile blood pressure stable Lab I reviewed Exam Narrative: GENERAL: Pleasant, in no acute distress. Well-nourished. Obesity - EYES: EOMI. Anicteric. - HENT: Moist mucous membranes. - LUNGS: Coarse breath sound bilateral base - CARDIOVASCULAR: Regular rate and rhythm. No murmur. JVD is not appreciated because of obesity. - ABDOMEN: Soft, non-tender and non-distended. No palpable masses. - EXTREMITIES: 2+ edema. Peripheral pulses 2+. Non-tender. - NEUROLOGIC: No focal neurological deficits. CN II-XII grossly intact. - PSYCHIATRIC: Awake, Alert and oriented x 3. Appropriate mood and affect. - SKIN: No rashes or lesions. Warm. - LYMPH: No cervical lymphadenopathy. Objective Data Vital Signs Vital Signs: Vital Signs - 24 hr 06/14/24 10:00 06/14/24 12:00 06/14/24 12:03 Temperature 98.2 F Pulse Rate 58 L 56 L 56 L Respiratory Rate 18 Blood Pressure 148/72 H Pulse Oximetry 100 Oxygen Delivery 06/14/24 14:00 06/14/24 14:34 06/14/24 16:00 Temperature Pulse Rate 56 L 46 L 57 L Respiratory Rate Blood Pressure Pulse Oximetry Oxygen Delivery 06/14/24 16:17 06/14/24 18:00 06/14/24 20:00 Temperature 98.2 F Pulse Rate 57 L 55 L 57 L Respiratory Rate 20 Blood Pressure 137/65 Pulse Oximetry 98 Oxygen Delivery 06/14/24 20:01 06/14/24 21:01 06/14/24 21:29 Temperature 98.2 F Pulse Rate 62 59 L 54 L Respiratory Rate 20 20 Blood Pressure 135/51 L Pulse Oximetry 95 Oxygen Delivery 06/14/24 21:32 06/14/24 22:00 06/14/24 23:42 Temperature 98.7 F Pulse Rate 54 L 53 L 52 L Respiratory Rate 20 Blood Pressure 128/60 Pulse Oximetry 95 98 Oxygen Delivery Room Air 06/15/24 00:00 06/15/24 02:00 06/15/24 04:00 Temperature Pulse Rate 62 57 L 60 Respiratory Rate Blood Pressure Pulse Oximetry Oxygen Delivery 06/15/24 04:28 06/15/24 06:33 06/15/24 07:25 Temperature 98.0 F Pulse Rate 55 L 62 Respiratory Rate 20 Blood Pressure 120/56 L Pulse Oximetry 100 97 Oxygen Delivery Room Air 06/15/24 07:54 06/15/24 09:01 Temperature 98.1 F Pulse Rate 56 L 63 Respiratory Rate 20 Blood Pressure 130/60 Pulse Oximetry 100 Oxygen Delivery Intake/Output Intake/Output: Intake & Output 06/12/24 06/13/24 06/14/24 06/15/24 23:59 23:59 23:59 23:59 Intake Total 1530 2180 520 Output Total 4500 900 900 Balance -2970 1280 -380 Meds/Results Medications: Active Medications Generic Name Dose Route Start Last Admin Trade Name Freq PRN Reason Stop Dose Admin Hydrocodone Bitart/Acetaminophen 1 tab 06/13/24 08:22 06/15/24 09:00 Hydrocodone/Acetaminophen (*Crx) 7.5-325 Mg Tablet PO 1 tab TID PRN Administration pain Albuterol 2.5 mg 06/13/24 08:22 06/13/24 15:18 Albuterol Sulfate Neb 2.5 Mg/3 Ml Inh INHALATION 2.5 mg Q6HRT PRN Administration Shortness Of Breath Or Wheezing Aspirin 81 mg 06/13/24 09:00 06/15/24 09:01 Aspirin 81 Mg Enteric Tablet PO 07/13/24 08:59 81 mg DAILY JUDITH Administration Carvedilol 12.5 mg 06/14/24 21:00 06/15/24 09:01 Carvedilol 12.5 Mg Tablet PO 12.5 mg Q12HR JUDITH Administration Cyclobenzaprine HCl 5 mg 06/13/24 08:22 06/15/24 09:01 Cyclobenzaprine Hcl 5 Mg Tablet PO 5 mg TID PRN Administration muscle pain Dextrose 12.5 gm 06/13/24 07:58 Dextrose 50% 25 Gm/50 Ml Syringe IV PUSH PRN PRN Hypoglycemia Protocol Ergocalciferol 50,000 units 06/13/24 09:00 06/13/24 10:22 Ergocalciferol 50,000 Units Capsule PO 50,000 units Mo@0900 JUDITH Administration Escitalopram Oxalate 10 mg 06/13/24 09:00 06/15/24 09:01 Escitalopram Oxalate 10 Mg Tablet PO 10 mg DAILY JUDITH Administration Famotidine 20 mg 06/13/24 08:22 Famotidine 20 Mg Tablet PO BID PRN acid reflux Ferrous Sulfate 325 mg 06/13/24 08:50 06/15/24 09:00 Ferrous Sulfate [address] PO 325 mg DAILY@0800 JUDITH Administration Fluticasone Propionate 1 spray 06/13/24 08:22 06/14/24 08:17 Fluticasone Propionate 0.05% Na Spr 16 Gm Btl (*Bkc) NASAL 1 spray DAILY PRN Administration allergy symptoms Furosemide 40 mg 06/15/24 09:30 Furosemide 40 Mg Tablet PO DAILY JUDITH Glucagon 1 mg 06/13/24 07:58 Glucagon For Inj 1 Mg Vial IM PRN PRN Hypoglycemia Protocol Glucose 15 gm 06/13/24 07:58 Glucose Oral Gel 15 Gm Of Glucse In 37.5 Gm Tube PO PRN PRN Hypoglycemia Protocol Hydroxychloroquine Sulfate 200 mg 06/13/24 09:00 06/15/24 09:00 Hydroxychloroquine Sulfate 200 Mg Tablet PO 200 mg Q12HR JUDITH Administration Dextrose 1,000 mls @ 100 mls/hr 06/13/24 07:58 Dextrose 5% 1,000 Ml IVPB PRN PRN Hypoglycemia Protocol Insulin Aspart 3 - 6 units 06/13/24 08:00 06/15/24 08:14 Insulin Aspart (*Bkc) 100 Units/Ml SUB-Q Not Given TIDWM [facility] Protocol Insulin Aspart 1 - 3 units 06/13/24 21:00 06/14/24 20:44 Insulin Aspart (*Bkc) 100 Units/Ml SUB-Q Not Given HS [facility] Protocol Insulin Aspart 5 units 06/14/24 08:00 06/15/24 08:54 Insulin Aspart (*Bkc) 100 Units/Ml SUB-Q 07/13/24 08:49 5 units TIDWM JUDITH Administration Insulin Glargine 23 units 06/12/24 23:55 06/14/24 21:03 Insulin Glargine (*Bkc) 100 Units/Ml 0.2 units/kg (23 units) 23 units SUB-Q Administration HS JUDITH Lisinopril 40 mg 06/15/24 09:00 06/15/24 09:00 Lisinopril 20 Mg Tablet PO 40 mg QAM JUDITH Administration Loratadine 10 mg 06/13/24 09:00 06/15/24 09:00 Loratadine 10 Mg Tablet PO 07/13/24 08:59 10 mg DAILY JUDITH Administration Magnesium Oxide 400 mg 06/13/24 21:00 06/14/24 21:01 Magnesium Oxide 400 Mg Tablet PO 400 mg HS JUDITH Administration Miscellaneous Information 0 each 06/13/24 00:01 06/15/24 08:13 Clarify Ibuprofen- Max Dose Is 800mg Per Single Dose. XX 07/13/24 00:00 Not Given CLARIFY JUDITH Miscellaneous Information 0 each 06/13/24 00:01 06/15/24 08:13 Progesterone Micronized= Non Formulary, Can Patient Use From Home? XX 07/13/24 00:00 Not Given CLARIFY JUDITH Non-Formulary Medication 1,600 mg 06/13/24 08:22 Ibuprofen PO BID PRN Headache Non-Formulary Medication 100 mg 06/13/24 18:00 Progesterone Micronized PO 07/13/24 17:59 QPM JUDITH Perflutren Lipid Microsphere 0 ml 06/13/24 10:40 Perflutren Lipid Microspheres 1.5 Ml Vial Diluted To 10 Ml Total Volume IV PUSH 06/16/24 10:40 ONCE PRN adequate visualization Protocol Potassium Chloride 40 meq 06/13/24 09:25 06/15/24 09:00 Potassium Chloride 20 Meq Er Tablet PO 40 meq BIDWM JUDITH Administration Pregabalin 200 mg 06/13/24 09:00 06/15/24 08:59 Pregabalin (*Crx) 50 Mg Capsule PO 200 mg DAILY JUDITH Administration Rosuvastatin Calcium 40 mg 06/13/24 21:00 06/13/24 20:04 Rosuvastatin 20 Mg Tablet PO 40 mg MoWe@2100 JUDITH Administration Fluticasone/Salmeterol 2 puff 06/13/24 08:55 06/15/24 07:23 Fluticasone/Salmeterol 230-21 Mcg Inhaler 1 Puff INHALATION 2 puff Q12HRT JUDITH Administration Trazodone HCl 50 mg 06/13/24 08:22 06/14/24 21:08 Trazodone Hcl 50 Mg Tablet PO 50 mg QHS PRN Administration Insomnia Radiology Results: ITS Impressions Chest X-Ray 06/12/24 18:57 IMPRESSION: No acute cardiopulmonary pathology. Labs Labs: Laboratory Results - last 24 hr 06/14/24 06/14/24 06/14/24 11:19 11:31 15:26 WBC 8.8 RBC 4.47 Hgb 12.6 Hct 40.1 MCV 89.7 MCH 28.2 MCHC 31.4 L RDW 13.8 Plt Count 168 MPV 10.7 H Immature Gran % (Auto) 0.3 Neut % (Auto) 63.7 Lymph % (Auto) 26.2 [place] % (Auto) 8.6 H Eos % (Auto) 0.5 Baso % (Auto) 0.7 Lymph # (Auto) 2.30 [place] # (Auto) 0.8 H Eos # (Auto) 0.0 Baso # (Auto) 0.1 Abs Immat Gran (auto) 0.03 Absolute Neuts (auto) 5.6 Absolute Nucleated RBC 0.000 Nucleated RBC % 0.0 Sodium 144 Potassium 3.7 Chloride 106 Carbon Dioxide 26 Anion Gap 12 BUN 11 Creatinine 0.56 L Estim Creat Clear Calc 117 Estimated GFR > 60 Glucose 162 H POC Capillary Glucose 184 H 221 H Calcium 9.4 Magnesium 1.4 L 06/14/24 06/15/24 06/15/24 20:37 04:16 07:30 WBC 6.8 RBC 4.15 L Hgb 11.6 L Hct 36.9 L MCV 88.9 MCH 28.0 MCHC 31.4 L RDW 13.7 Plt Count 160 MPV 10.9 H Immature Gran % (Auto) 0.1 Neut % (Auto) 54.2 Lymph % (Auto) 34.7 [place] % (Auto) 9.1 H Eos % (Auto) 1.3 Baso % (Auto) 0.6 Lymph # (Auto) 2.35 [place] # (Auto) 0.6 Eos # (Auto) 0.1 Baso # (Auto) 0.0 Abs Immat Gran (auto) 0.01 Absolute Neuts (auto) 3.7 Absolute Nucleated RBC 0.000 Nucleated RBC % 0.0 Sodium 143 Potassium 3.3 L Chloride 108 H Carbon Dioxide 23 Anion Gap 12 BUN 16 Creatinine 0.56 L Estim Creat Clear Calc 122 Estimated GFR > 60 Glucose 154 H POC Capillary Glucose 136 H 149 H Calcium 8.8 Magnesium 1.6
[2024-06-15] MEDS: FUROSEMIDE 40 MG TABLET PO (10:14)
[2024-06-15] MEDS: FLUTICASONE PROPIONATE 0.05% NA SPR 16 GM BTL (*BKC) 1 SPRAY NASAL (10:14)
[2024-06-15 11:21] LABS: Glucose Point of Care 193 mg/dl (65-105)
--- NOTE | 2024-06-15 12:43 | WPDCDIQUERY2 ---
CDI Query Clarification Request Please clarify if CHF has been ruled in or ruled out Cardiology documented: -it is my clinical impression that this patient has lower extremity swelling is most likely secondary to amlodipine. LV systolic function is normal and so is her diastolic function. There may be some underlying diastolic dysfunction which to be due to hypertension. However the echo showed normal diastolic function Hospitalist documented: Acute on chronic Diastolic heart failure Patient is on furosemide 10 mg daily p.o. changed to Lasix 40 mg b.i.d. IV push Follow-up of BMP BNP: 1961 on arrival Follow-up echocardiogram 1. Complete two-dimensional, color flow and Doppler transthoracic echocardiogram is performed. 2. Left ventricular systolic function is normal, estimated at 55-60%. 3. There is mild tricuspid valve regurgitation. 4. No pulmonary hypertension, estimated pulmonary arterial systolic pressure is 27 mmHg. <Kaley Younger RN - Last Filed: 06/15/24 12:44> Clarified Diagnosis Clarified Diagnosis: Acute on chronic Diastolic heart failure <Kade Lindsay MD - Last Filed: 06/15/24 14:48>
[2024-06-15 15:24] LABS: Glucose Point of Care 127 mg/dl (65-105)
[2024-06-15] MEDS: MAGNESIUM OXIDE 400 MG TABLET PO (20:37)
[2024-06-15 20:38] LABS: Glucose Point of Care 174 mg/dl (65-105)
[2024-06-15] MEDS: INSULIN GLARGINE (*BKC) 100 UNITS/ML 23 UNITS SUB-Q (20:39)
[2024-06-15] MEDS: traZODone HCL 50 MG TABLET PO (20:58)
[2024-06-15] MEDS: ROSUVASTATIN 20 MG TABLET 40 MG PO (21:03)
--- NOTE | 2024-06-15 22:26 | PC.NURSE ---
tubed SBAR to 3 med/surg, Verbal report given. Patient and all belongings transferred to room 326 including home medications. No change from previous assessment.
[2024-06-16] MEDS: CYCLOBENZAPRINE HCL 5 MG TABLET PO ×2 (04:50→20:42)
[2024-06-16 06:13] VITALS: BP 146/66; PULSE 61; RESP 16; TEMP 36.6; O2SAT 98
[2024-06-16] MEDS: HYDROcodone/acetaminophen (*CRX) 7.5-325 MG TABLET 1 TAB PO ×3 (06:16→23:02)
[2024-06-16 07:15] LABS: Basophils Percent Auto 0.5 % (0.2-1.2); Eosinophils Absolute Auto 0.1 K/mm3 (0-0.3); Eosinophils Percent Auto 1.2 % (0-4.4); Hematocrit 39.1 % (37.0-47.0); Hemoglobin 12.1 g/dL (12.0-15.0); Immature Granulocyte Absolute 0.02 K/mm3 (0.00-0.031); Immature Granulocyte Percent A 0.3 % (0-0.5); Lymphocytes Percent Auto 25.6 % (18.3-44.2); Mean Corpuscular HGB Conc 30.9 g/dl (32-36); Mean Corpuscular Hemoglobin 27.8 pg (26-34); Mean Corpuscular Volume 89.9 fl (80-100); Mean Platelet Volume 10.7 fl (7.4-10.4); Monocytes Absolute Auto 0.7 K/mm3 (0.1-0.6); Monocytes Percent Auto 9.2 % (2.6-8.5); Neutrophils Absolute Auto 4.7 K/mm3 (1.3-6.7); Neutrophils Percent Auto 63.2 % (45.5-73.1); Platelet Count Result 165 k/mm3 (150-375); Red Blood Count 4.35 M/mm3 (4.2-5.4); White Blood Count 7.4 K/mm3 (4.5-10.0)
--- NOTE | 2024-06-16 07:17 | P.PNCA_ITS ---
Progress Note: A&P Assessment and Plan (1) Lower extremity edema: Code(s): R60.0 - Localized edema Status: Acute Plan 1. Lower extremity edema 2. HTN 3. Non cardiac chest pain TTE (06/13/2024) EF 55-60%, normal diastolic function, no wall motion abnormality -it is my clinical impression that this patient has lower extremity swelling is most likely secondary to amlodipine. LV systolic function is normal and so is her diastolic function. There may be some underlying diastolic dysfunction which to be due to hypertension. However the echo showed normal diastolic function -her pretest probability for CAD is low as per the Kelsey-Lilian model. No further noninvasive/invasive evaluation is required during this admission. She will need an ischemic evaluation if she continues to have symptoms. -continue carvedilol and lisinopril at current doses -continue to monitor blood pressure and optimize -start 25 mg HCTZ once daily -can be discharged home on carvedilol, lisinopril and hydrochlorothiazide -compression stockings Subjective Date/time seen: 06/16/24 07:17 Interval history: No acute events overnight Heart rate and blood pressure better controlled Review of Systems Review of Systems: ROS negative except above All systems reviewed & are unremarkable except as noted in HPI and below Exam Narrative: GENERAL: Pleasant, in no acute distress. Well-nourished. Obesity - EYES: EOMI. Anicteric. - HENT: Moist mucous membranes. - LUNGS: Coarse breath sound bilateral base - CARDIOVASCULAR: Regular rate and rhyth m. No murmur. JVD is not appreciated because of obesity. - ABDOMEN: Soft, non-tender and non-dist ended. No palpable masses. - EXTREMITIES: 2+ edema. Peripheral pul ses 2+. Non-tender. - NEUROLOGIC: No focal neurological defi cits. CN II-XII grossly intact. - PSYCHIATRIC: Awake, Alert and oriented x 3. Appropriate mood and affect. - SKIN: No rashes or lesions. Warm. - LYMPH: No cervical lymphadenopathy. Objective Data Vital Signs Vital Signs: Vital Signs - 24 hr 06/15/24 07:25 06/15/24 07:54 06/15/24 09:01 Temperature 36.7 C Pulse Rate 56 L 63 Respiratory Rate 20 Blood Pressure 130/60 Pulse Oximetry 97 100 Oxygen Delivery Room Air 06/15/24 15:41 06/15/24 19:36 06/15/24 20:23 Temperature 36.8 C 36.6 C Pulse Rate 61 61 Respiratory Rate 20 20 20 Blood Pressure 139/81 143/68 H Pulse Oximetry 98 99 Oxygen Delivery Room Air 06/15/24 20:37 06/15/24 20:44 06/15/24 20:45 Temperature Pulse Rate 58 L 62 Respiratory Rate 20 Blood Pressure Pulse Oximetry 97 Oxygen Delivery Room Air 06/15/24 22:38 06/16/24 06:13 Temperature 36.2 C L 36.6 C Pulse Rate 60 61 Respiratory Rate 18 16 Blood Pressure 122/57 L 146/66 H Pulse Oximetry 97 98 Oxygen Delivery Intake/Output Intake/Output: Intake & Output 06/13/24 06/14/24 06/15/24 06/16/24 23:59 23:59 23:59 23:59 Intake Total 1530 2180 1090 Output Total 4500 900 1250 Balance -2970 1280 -160 Meds/Results Medications: Active Medications Generic Name Dose Route Start Last Admin Trade Name Freq PRN Reason Stop Dose Admin Hydrocodone Bitart/Acetaminophen 1 tab 06/13/24 08:22 06/16/24 06:16 Hydrocodone/Acetaminophen (*Crx) 7.5-325 Mg Tablet PO 1 tab TID PRN Administration pain Albuterol 2.5 mg 06/13/24 08:22 06/13/24 15:18 Albuterol Sulfate Neb 2.5 Mg/3 Ml Inh INHALATION 2.5 mg Q6HRT PRN Administration Shortness Of Breath Or Wheezing Aspirin 81 mg 06/13/24 09:00 06/15/24 09:01 Aspirin 81 Mg Enteric Tablet PO 07/13/24 08:59 81 mg DAILY JUDITH Administration Carvedilol 12.5 mg 06/14/24 21:00 06/15/24 20:37 Carvedilol 12.5 Mg Tablet PO 12.5 mg Q12HR JUDITH Administration Cyclobenzaprine HCl 5 mg 06/13/24 08:22 06/16/24 04:50 Cyclobenzaprine Hcl 5 Mg Tablet PO 5 mg TID PRN Administration muscle pain Dextrose 12.5 gm 06/13/24 07:58 Dextrose 50% 25 Gm/50 Ml Syringe IV PUSH PRN PRN Hypoglycemia Protocol Ergocalciferol 50,000 units 06/13/24 09:00 06/13/24 10:22 Ergocalciferol 50,000 Units Capsule PO 50,000 units Mo@0900 JUDITH Administration Escitalopram Oxalate 10 mg 06/13/24 09:00 06/15/24 09:01 Escitalopram Oxalate 10 Mg Tablet PO 10 mg DAILY JUDITH Administration Famotidine 20 mg 06/13/24 08:22 Famotidine 20 Mg Tablet PO BID PRN acid reflux Ferrous Sulfate 325 mg 06/13/24 08:50 06/15/24 09:00 Ferrous Sulfate [address] PO 325 mg DAILY@0800 JUDITH Administration Fluticasone Propionate 1 spray 06/13/24 08:22 06/15/24 10:14 Fluticasone Propionate 0.05% Na Spr 16 Gm Btl (*Bkc) NASAL 1 spray DAILY PRN Administration allergy symptoms Glucagon 1 mg 06/13/24 07:58 Glucagon For Inj 1 Mg Vial IM PRN PRN Hypoglycemia Protocol Glucose 15 gm 06/13/24 07:58 Glucose Oral Gel 15 Gm Of Glucse In 37.5 Gm Tube PO PRN PRN Hypoglycemia Protocol Hydrochlorothiazide 25 mg 06/16/24 09:00 Hydrochlorothiazide 25 Mg Tablet PO QAM [facility] Hydroxychloroquine Sulfate 200 mg 06/13/24 09:00 06/15/24 20:37 Hydroxychloroquine Sulfate 200 Mg Tablet PO 200 mg Q12HR JUDITH Administration Dextrose 1,000 mls @ 100 mls/hr 06/13/24 07:58 Dextrose 5% 1,000 Ml IVPB PRN PRN Hypoglycemia Protocol Insulin Aspart 3 - 6 units 06/13/24 08:00 06/15/24 16:44 Insulin Aspart (*Bkc) 100 Units/Ml SUB-Q Not Given TIDWM [facility] Protocol Insulin Aspart 1 - 3 units 06/13/24 21:00 06/15/24 20:39 Insulin Aspart (*Bkc) 100 Units/Ml SUB-Q Not Given HS [facility] Protocol Insulin Aspart 5 units 06/14/24 08:00 06/15/24 16:44 Insulin Aspart (*Bkc) 100 Units/Ml SUB-Q 07/13/24 08:49 5 units TIDWM [facility] Administration Insulin Glargine 23 units 06/12/24 23:55 06/15/24 20:39 Insulin Glargine (*Bkc) 100 Units/Ml 0.2 units/kg (23 units) 23 units SUB-Q Administration HS JUDITH Lisinopril 40 mg 06/15/24 09:00 06/15/24 09:00 Lisinopril 20 Mg Tablet PO 40 mg QAM JUDITH Administration Loratadine 10 mg 06/13/24 09:00 06/15/24 09:00 Loratadine 10 Mg Tablet PO 07/13/24 08:59 10 mg DAILY JUDITH Administration Magnesium Oxide 400 mg 06/13/24 21:00 06/15/24 20:37 Magnesium Oxide 400 Mg Tablet PO 400 mg HS JUDITH Administration Miscellaneous Information 0 each 06/13/24 00:01 06/15/24 08:13 Clarify Ibuprofen- Max Dose Is 800mg Per Single Dose. XX 07/13/24 00:00 Not Given CLARIFY JUDITH Miscellaneous Information 0 each 06/13/24 00:01 06/15/24 08:13 Progesterone Micronized= Non Formulary, Can Patient Use From Home? XX 07/13/24 00:00 Not Given CLARIFY JUDITH Non-Formulary Medication 1,600 mg 06/13/24 08:22 Ibuprofen PO BID PRN Headache Non-Formulary Medication 100 mg 06/13/24 18:00 Progesterone Micronized PO 07/13/24 17:59 QPM JUDITH Perflutren Lipid Microsphere 0 ml 06/13/24 10:40 Perflutren Lipid Microspheres 1.5 Ml Vial Diluted To 10 Ml Total Volume IV PUSH 06/16/24 10:40 ONCE PRN adequate visualization Protocol Potassium Chloride 40 meq 06/13/24 09:25 06/15/24 16:45 Potassium Chloride 20 Meq Er Tablet PO 40 meq BIDWM JUDITH Administration Pregabalin 200 mg 06/13/24 09:00 06/15/24 08:59 Pregabalin (*Crx) 50 Mg Capsule PO 200 mg DAILY JUDITH Administration Rosuvastatin Calcium 40 mg 06/13/24 21:00 06/15/24 21:03 Rosuvastatin 20 Mg Tablet PO 40 mg MoWe@2100 JUDITH Administration Fluticasone/Salmeterol 2 puff 06/13/24 08:55 06/15/24 20:42 Fluticasone/Salmeterol 230-21 Mcg Inhaler 1 Puff INHALATION 2 puff Q12HRT JUDITH Administration Trazodone HCl 50 mg 06/13/24 08:22 06/15/24 20:58 Trazodone Hcl 50 Mg Tablet PO 50 mg QHS PRN Administration Insomnia Radiology Results: ITS Impressions Chest X-Ray 06/12/24 18:57 IMPRESSION: No acute cardiopulmonary pathology. Labs Labs: Laboratory Results - last 24 hr 06/15/24 06/15/24 06/15/24 07:30 11:06 15:20 POC Capillary Glucose 149 H 193 H 127 H 06/15/24 20:35 POC Capillary Glucose 174 H
[2024-06-16 07:36] LABS: Anion Gap 8 mmol/L (4-12); Blood Urea Nitrogen 15 mg/dL (7-17); Calcium 9.1 mg/dL (8.4-10.2); Carbon Dioxide 25 mmol/L (22-30); Chloride 109 mmol/L (98-107); Estimated CRCL calculation 122 ml/min; Estimated Glomerular Filt Rate > 60; Glucose 187 mg/dL (65-110); Magnesium 1.9 mg/dL (1.6-2.3); Potassium 4.2 mmol/L (3.4-5.0); Sodium 142 mmol/L (137-145)
[2024-06-16] MEDS: FLUTICASONE/SALMETEROL 230-21 MCG INHALER 1 PUFF 2 PUFF INHALATION ×2 (07:46→20:20)
--- NOTE | 2024-06-16 07:49 | P.PNIM_ITS ---
Progress Note: A&P Assessment and Plan (1) Anxiety and depression: Code(s): F41.9 - Anxiety disorder, unspecified; F32.9 - Major depressive disorder, single episode, unspecified Status: Acute (2) HTN (hypertension): Code(s): I10 - Essential (primary) hypertension Status: Acute (3) Chest pain: Qualifiers: Chest pain type: unspecified Qualified Code(s): R07.9 - Chest pain, unspecified Code(s): R07.9 - Chest pain, unspecified Status: Acute (4) Uncontrolled type 2 diabetes mellitus: Status: Acute (5) Asthma: Code(s): J45.909 - Unspecified asthma, uncomplicated Status: Acute (6) Iron deficiency anemia: Code(s): D50.9 - Iron deficiency anemia, unspecified Status: Acute (7) Diastolic heart failure: Code(s): I50.30 - Unspecified diastolic (congestive) heart failure Status: Acute (8) Hypokalemia: Code(s): E87.6 - Hypokalemia Status: Acute Plan Chest pain Patient has been having intermittent chest pain since yesterday, aggravated by exertion Troponin negative, EKG shows sinus rhythm no specific ST T-wave changes Need to rule out ACS Start aspirin 325 mg once 81 mg daily p.o. Nitroglycerin sublingual p.r.n. Place patient on laboratory monitor Echocardiogram April 13, 2023 showed normal EF, grade 2 diastolic dysfunction Repeat echocardiogram laboratory monitor Consult derrick helper for evaluation treatment, cardiology considers nonspecific chest pain Asthma Continue albuterol in nebulizer q.6 hours p.r.n., Advair 2 above q.12 hour Acute on chronic Diastolic heart failure Patient is on furosemide 10 mg daily p.o. changed to Lasix 40 mg b.i.d. IV push Follow-up of BMP BNP: 1960 on arrival Follow-up echocardiogram:Left ventricular systolic function is normal, estimated at 55-60%. Continue IV Lasix 40 mg b.i.d. IV push till tomorrow Essential hypertension Continue amlodipine 10 mg daily p.o., clot leading 0.1 mg t.i.d. p.o., Iron deficiency anemia Hemoglobin stable Continue ferrous sulfate 325 mg daily p.o. Uncontrolled type 2 diabetes Home metformin during p.o. Continue Lantus 23 units q.h.s., lispro 10 units q.h.s., and sliding scale a.c. q.h.s. Optimize medication to control glucose in the target range Subjective Date/time seen: 06/16/24 07:49 Interval history: Interval history:53-year-old female with history of hypertension, uncontrolled type 2 diabetes, hyperlipidemia, asthma present ED with chief complaint of chest pain. HB A1c 7.8 06/16: As per cardiology the lower extremity swelling most likely due to amlodipine.Patient complains of lower extremities swelling. Reviewed echocardiogram. Possible discharge tomorrow if no further chest pain Review of Systems Review of Systems: ROS negative except above Exam Narrative: GENERAL: Pleasant, in no acute distress. Well-nourished. Obesity - EYES: EOMI. Anicteric. - HENT: Moist mucous membranes. - LUNGS: Coarse breath sound bilateral base - CARDIOVASCULAR: Regular rate and rhyth m. No murmur. JVD is not appreciated because of obesity. - ABDOMEN: Soft, non-tender and non-dist ended. No palpable masses. - EXTREMITIES: 2+ edema. Peripheral pul ses 2+. Non-tender. - NEUROLOGIC: No focal neurological defi cits. CN II-XII grossly intact. - PSYCHIATRIC: Awake, Alert and oriented x 3. Appropriate mood and affect. - SKIN: No rashes or lesions. Warm. - LYMPH: No cervical lymphadenopathy. Objective Data Vital Signs Vital Signs: Vital Signs - 24 hr 06/15/24 07:54 06/15/24 09:01 06/15/24 15:41 Temperature 98.1 F 98.3 F Pulse Rate 56 L 63 61 Respiratory Rate 20 20 Blood Pressure 130/60 139/81 Pulse Oximetry 100 98 Oxygen Delivery 06/15/24 19:36 06/15/24 20:23 06/15/24 20:37 Temperature 97.9 F Pulse Rate 61 58 L Respiratory Rate 20 20 Blood Pressure 143/68 H Pulse Oximetry 99 Oxygen Delivery Room Air 06/15/24 20:44 06/15/24 20:45 06/15/24 22:38 Temperature 97.1 F L Pulse Rate 62 60 Respiratory Rate 20 18 Blood Pressure 122/57 L Pulse Oximetry 97 97 Oxygen Delivery Room Air 06/16/24 06:13 Temperature 97.9 F Pulse Rate 61 Respiratory Rate 16 Blood Pressure 146/66 H Pulse Oximetry 98 Oxygen Delivery Intake/Output Intake/Output: Intake & Output 06/13/24 06/14/24 06/15/24 06/16/24 23:59 23:59 23:59 23:59 Intake Total 1530 2180 1090 Output Total 4500 900 1250 Balance -2970 1280 -160 Meds/Results Medications: Active Medications Generic Name Dose Route Start Last Admin Trade Name Freq PRN Reason Stop Dose Admin Hydrocodone Bitart/Acetaminophen 1 tab 06/13/24 08:22 06/16/24 06:16 Hydrocodone/Acetaminophen (*Crx) 7.5-325 Mg Tablet PO 1 tab TID PRN Administration pain Albuterol 2.5 mg 06/13/24 08:22 06/13/24 15:18 Albuterol Sulfate Neb 2.5 Mg/3 Ml Inh INHALATION 2.5 mg Q6HRT PRN Administration Shortness Of Breath Or Wheezing Aspirin 81 mg 06/13/24 09:00 06/15/24 09:01 Aspirin 81 Mg Enteric Tablet PO 07/13/24 08:59 81 mg DAILY JUDITH Administration Carvedilol 12.5 mg 06/14/24 21:00 06/15/24 20:37 Carvedilol 12.5 Mg Tablet PO 12.5 mg Q12HR JUDITH Administration Cyclobenzaprine HCl 5 mg 06/13/24 08:22 06/16/24 04:50 Cyclobenzaprine Hcl 5 Mg Tablet PO 5 mg TID PRN Administration muscle pain Dextrose 12.5 gm 06/13/24 07:58 Dextrose 50% 25 Gm/50 Ml Syringe IV PUSH PRN PRN Hypoglycemia Protocol Ergocalciferol 50,000 units 06/13/24 09:00 06/13/24 10:22 Ergocalciferol 50,000 Units Capsule PO 50,000 units Mo@0900 [facility] Administration Escitalopram Oxalate 10 mg 06/13/24 09:00 06/15/24 09:01 Escitalopram Oxalate 10 Mg Tablet PO 10 mg DAILY JUDITH Administration Famotidine 20 mg 06/13/24 08:22 Famotidine 20 Mg Tablet PO BID PRN acid reflux Ferrous Sulfate 325 mg 06/13/24 08:50 06/15/24 09:00 Ferrous Sulfate [address] PO 325 mg DAILY@0800 [facility] Administration Fluticasone Propionate 1 spray 06/13/24 08:22 06/15/24 10:14 Fluticasone Propionate 0.05% Na Spr 16 Gm Btl (*Bkc) NASAL 1 spray DAILY PRN Administration allergy symptoms Glucagon 1 mg 06/13/24 07:58 Glucagon For Inj 1 Mg Vial IM PRN PRN Hypoglycemia Protocol Glucose 15 gm 06/13/24 07:58 Glucose Oral Gel 15 Gm Of Glucse In 37.5 Gm Tube PO PRN PRN Hypoglycemia Protocol Hydrochlorothiazide 25 mg 06/16/24 09:00 Hydrochlorothiazide 25 Mg Tablet PO QAM JUDITH Hydroxychloroquine Sulfate 200 mg 06/13/24 09:00 06/15/24 20:37 Hydroxychloroquine Sulfate 200 Mg Tablet PO 200 mg Q12HR JUDITH Administration Dextrose 1,000 mls @ 100 mls/hr 06/13/24 07:58 Dextrose 5% 1,000 Ml IVPB PRN PRN Hypoglycemia Protocol Insulin Aspart 3 - 6 units 06/13/24 08:00 06/15/24 16:44 Insulin Aspart (*Bkc) 100 Units/Ml SUB-Q Not Given TIDWM [facility] Protocol Insulin Aspart 1 - 3 units 06/13/24 21:00 06/15/24 20:39 Insulin Aspart (*Bkc) 100 Units/Ml SUB-Q Not Given HS [facility] Protocol Insulin Aspart 5 units 06/14/24 08:00 06/15/24 16:44 Insulin Aspart (*Bkc) 100 Units/Ml SUB-Q 07/13/24 08:49 5 units TIDWM JUDITH Administration Insulin Glargine 23 units 06/12/24 23:55 06/15/24 20:39 Insulin Glargine (*Bkc) 100 Units/Ml 0.2 units/kg (23 units) 23 units SUB-Q Administration HS JUDITH Lisinopril 40 mg 06/15/24 09:00 06/15/24 09:00 Lisinopril 20 Mg Tablet PO 40 mg QAM JUDITH Administration Loratadine 10 mg 06/13/24 09:00 06/15/24 09:00 Loratadine 10 Mg Tablet PO 07/13/24 08:59 10 mg DAILY JUDITH Administration Magnesium Oxide 400 mg 06/13/24 21:00 06/15/24 20:37 Magnesium Oxide 400 Mg Tablet PO 400 mg HS JUDITH Administration Miscellaneous Information 0 each 06/13/24 00:01 06/15/24 08:13 Clarify Ibuprofen- Max Dose Is 800mg Per Single Dose. XX 07/13/24 00:00 Not Given CLARIFY [facility] Miscellaneous Information 0 each 06/13/24 00:01 06/15/24 08:13 Progesterone Micronized= Non Formulary, Can Patient Use From Home? XX 07/13/24 00:00 Not Given CLARIFY JUDITH Non-Formulary Medication 1,600 mg 06/13/24 08:22 Ibuprofen PO BID PRN Headache Non-Formulary Medication 100 mg 06/13/24 18:00 Progesterone Micronized PO 07/13/24 17:59 QPM JUDITH Perflutren Lipid Microsphere 0 ml 06/13/24 10:40 Perflutren Lipid Microspheres 1.5 Ml Vial Diluted To 10 Ml Total Volume IV PUSH 06/16/24 10:40 ONCE PRN adequate visualization Protocol Potassium Chloride 40 meq 06/13/24 09:25 06/15/24 16:45 Potassium Chloride 20 Meq Er Tablet PO 40 meq BIDWM JUDITH Administration Pregabalin 200 mg 06/13/24 09:00 06/15/24 08:59 Pregabalin (*Crx) 50 Mg Capsule PO 200 mg DAILY JUDITH Administration Rosuvastatin Calcium 40 mg 06/13/24 21:00 06/15/24 21:03 Rosuvastatin 20 Mg Tablet PO 40 mg MoWe@2100 JUDITH Administration Fluticasone/Salmeterol 2 puff 06/13/24 08:55 06/16/24 07:46 Fluticasone/Salmeterol 230-21 Mcg Inhaler 1 Puff INHALATION 2 puff Q12HRT JUDITH Administration Trazodone HCl 50 mg 06/13/24 08:22 06/15/24 20:58 Trazodone Hcl 50 Mg Tablet PO 50 mg QHS PRN Administration Insomnia Radiology Results: ITS Impressions Chest X-Ray 06/12/24 18:57 IMPRESSION: No acute cardiopulmonary pathology. Labs Labs: Laboratory Results - last 24 hr 06/15/24 06/15/24 06/15/24 11:06 15:20 20:35 WBC RBC Hgb Hct MCV MCH MCHC RDW Plt Count MPV Immature Gran % (Auto) Neut % (Auto) Lymph % (Auto) [place] % (Auto) Eos % (Auto) Baso % (Auto) Lymph # (Auto) [place] # (Auto) Eos # (Auto) Baso # (Auto) Abs Immat Gran (auto) Absolute Neuts (auto) Absolute Nucleated RBC Nucleated RBC % Sodium Potassium Chloride Carbon Dioxide Anion Gap BUN Creatinine Estim Creat Clear Calc Estimated GFR Glucose POC Capillary Glucose 193 H 127 H 174 H Calcium Magnesium 06/16/24 07:08 WBC 7.4 RBC 4.35 Hgb 12.1 Hct 39.1 MCV 89.9 MCH 27.8 MCHC 30.9 L RDW 14.0 Plt Count 165 MPV 10.7 H Immature Gran % (Auto) 0.3 Neut % (Auto) 63.2 Lymph % (Auto) 25.6 [place] % (Auto) 9.2 H Eos % (Auto) 1.2 Baso % (Auto) 0.5 Lymph # (Auto) 1.90 [place] # (Auto) 0.7 H Eos # (Auto) 0.1 Baso # (Auto) 0.0 Abs Immat Gran (auto) 0.02 Absolute Neuts (auto) 4.7 Absolute Nucleated RBC 0.000 Nucleated RBC % 0.0 Sodium 142 Potassium 4.2 Chloride 109 H Carbon Dioxide 25 Anion Gap 8 BUN 15 Creatinine 0.56 L Estim Creat Clear Calc 122 Estimated GFR > 60 Glucose 187 H POC Capillary Glucose Calcium 9.1 Magnesium 1.9 Hospitalist MIPS Advance Care Plan I have confirmed that the patient's Advanced Care Plan is present, code status is documented, or surrogate decision maker is listed in patient medical record.: Yes Medication Reconciliation I have utilized all available resources to obtain, update and review the patients current medications (includes all prescriptions, OTC, herbals, cannabis, and nutritional supplements).: Yes
[2024-06-16 08:00] LABS: Glucose Point of Care 178 mg/dl (65-105)
[2024-06-16] MEDS: INSULIN ASPART (*BKC) 100 UNITS/ML SUB-Q ×3 (08:00→17:04)
[2024-06-16] MEDS: FERROUS SULFATE 325 MG TABLET DR PO (08:19)
[2024-06-16] MEDS: lisinopriL 20 MG TABLET 40 MG PO (08:19)
[2024-06-16] MEDS: PREGABALIN (*CRX) 50 MG CAPSULE 200 MG PO (08:19)
[2024-06-16] MEDS: hydroCHLOROthiazide 25 MG TABLET PO (08:19)
[2024-06-16] MEDS: ASPIRIN 81 MG ENTERIC TABLET PO (08:19)
[2024-06-16 08:20] VITALS: PULSE 60; RESP 16; O2SAT 98
[2024-06-16] MEDS: carvediloL 12.5 MG TABLET PO ×2 (08:20→20:38)
[2024-06-16] MEDS: HYDROXYCHLOROQUINE SULFATE 200 MG TABLET PO ×2 (08:20→20:38)
[2024-06-16] MEDS: POTASSIUM CHLORIDE 20 MEQ ER TABLET 40 MEQ PO ×2 (08:20→17:03)
[2024-06-16] MEDS: ESCITALOPRAM OXALATE 10 MG TABLET PO (08:20)
[2024-06-16] MEDS: LORATADINE 10 MG TABLET PO (08:20)
[2024-06-16] MEDS: FLUTICASONE PROPIONATE 0.05% NA SPR 16 GM BTL (*BKC) 1 SPRAY NASAL (08:33)
[2024-06-16 11:22] LABS: Glucose Point of Care 178 mg/dl (65-105)
[2024-06-16 14:00] VITALS: BP 142/71; PULSE 65; RESP 18; TEMP 36.1; O2SAT 98
[2024-06-16 16:48] LABS: Glucose Point of Care 169 mg/dl (65-105)
[2024-06-16 19:30] VITALS: BP 144/70; PULSE 60; RESP 16; TEMP 36.9; O2SAT 98
[2024-06-16 20:25] VITALS: PULSE 62; O2SAT 96
[2024-06-16 20:36] LABS: Glucose Point of Care 199 mg/dl (65-105)
[2024-06-16 20:38] VITALS: PULSE 60
[2024-06-16] MEDS: INSULIN GLARGINE (*BKC) 100 UNITS/ML 23 UNITS SUB-Q (20:38)
[2024-06-16] MEDS: MAGNESIUM OXIDE 400 MG TABLET PO (20:38)
[2024-06-16] MEDS: traZODone HCL 50 MG TABLET PO (20:42)
[2024-06-17 06:00] VITALS: BP 142/76; PULSE 60; RESP 16; TEMP 37.1; O2SAT 99
[2024-06-17 06:46] LABS: Hematocrit 40.6 % (37.0-47.0); Hemoglobin 12.6 g/dL (12.0-15.0); Mean Corpuscular Hemoglobin 27.8 pg (26-34); Mean Corpuscular Volume 89.6 fl (80-100); Mean Platelet Volume 11.2 fl (7.4-10.4); Platelet Count Result 176 k/mm3 (150-375); Red Blood Count 4.53 M/mm3 (4.2-5.4); Red Cell Distribution Width 13.9 % (11.5-14.5); White Blood Count 7.9 K/mm3 (4.5-10.0)
[2024-06-17 06:55] LABS: Alanine Aminotransferase 31 U/L (6-35); Albumin Level 4.4 g/dL (3.5-5.1); Alkaline Phosphatase 80 U/L (38-126); Anion Gap 10 mmol/L (4-12); Aspartate Amino Transferase 28 U/L (14-36); Bilirubin,Total 0.6 mg/dL (0.2-1.3); Blood Urea Nitrogen 14 mg/dL (7-17); Calcium 9.4 mg/dL (8.4-10.2); Carbon Dioxide 24 mmol/L (22-30); Chloride 107 mmol/L (98-107); Estimated CRCL calculation 139 ml/min; Estimated Glomerular Filt Rate > 60; Glucose 171 mg/dL (65-110); Potassium 3.9 mmol/L (3.4-5.0); Sodium 141 mmol/L (137-145)
[2024-06-17 07:02] LABS: NT Pro B Type Natriuretic Pept 243 pg/mL (19.9-100)
[2024-06-17 08:02] LABS: Glucose Point of Care 167 mg/dl (65-105)
[2024-06-17 08:12] VITALS: PULSE 64
[2024-06-17] MEDS: ASPIRIN 81 MG ENTERIC TABLET PO (08:12)
[2024-06-17] MEDS: carvediloL 12.5 MG TABLET PO (08:12)
[2024-06-17] MEDS: POTASSIUM CHLORIDE 20 MEQ ER TABLET 40 MEQ PO (08:12)
[2024-06-17] MEDS: LORATADINE 10 MG TABLET PO (08:13)
[2024-06-17] MEDS: HYDROXYCHLOROQUINE SULFATE 200 MG TABLET PO (08:13)
[2024-06-17] MEDS: FERROUS SULFATE 325 MG TABLET DR PO (08:13)
[2024-06-17] MEDS: ESCITALOPRAM OXALATE 10 MG TABLET PO (08:13)
[2024-06-17] MEDS: PREGABALIN (*CRX) 50 MG CAPSULE 200 MG PO (08:13)
[2024-06-17] MEDS: lisinopriL 20 MG TABLET 40 MG PO (08:13)
[2024-06-17] MEDS: hydroCHLOROthiazide 25 MG TABLET PO (08:13)
[2024-06-17] MEDS: INSULIN ASPART (*BKC) 100 UNITS/ML SUB-Q ×2 (08:15→11:29)
[2024-06-17] MEDS: FLUTICASONE/SALMETEROL 230-21 MCG INHALER 1 PUFF 2 PUFF INHALATION (09:10)
[2024-06-17 11:28] LABS: Glucose Point of Care 175 mg/dl (65-105)
[2024-06-17] MEDS: HYDROcodone/acetaminophen (*CRX) 7.5-325 MG TABLET 1 TAB PO (11:29)
--- NOTE | 2024-06-17 12:18 | PM.DS ---
DS: Admitting Diagnosis Discharge Date 06/17/2024 Admitting Diagnosis Chest pain DS: Discharge Diagnosis Discharge Diagnosis (1) Anxiety and depression: Code(s): F41.9 - Anxiety disorder, unspecified; F32.9 - Major depressive disorder, single episode, unspecified Status: Acute (2) HTN (hypertension): Code(s): I10 - Essential (primary) hypertension Status: Acute (3) Chest pain: Qualifiers: Chest pain type: unspecified Qualified Code(s): R07.9 - Chest pain, unspecified Code(s): R07.9 - Chest pain, unspecified Status: Acute (4) Uncontrolled type 2 diabetes mellitus: Status: Acute (5) Asthma: Code(s): J45.909 - Unspecified asthma, uncomplicated Status: Acute (6) Iron deficiency anemia: Code(s): D50.9 - Iron deficiency anemia, unspecified Status: Acute (7) Diastolic heart failure: Code(s): I50.30 - Unspecified diastolic (congestive) heart failure Status: Acute (8) Hypokalemia: Code(s): E87.6 - Hypokalemia Status: Acute DS: Summary Hospital Course Hospital Course: Chest pain Patient has been having intermittent chest pain aggravated by exertion Serial Troponin negative, EKG shows sinus rhythm no specific ST T-wave changes Start aspirin 325 mg once 81 mg daily p.o. Nitroglycerin sublingual p.r.n. 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 changed to Lasix 40 mg b.i.d. IV push Follow-up of BMP BNP: 1960 on arrival down to 243 on 06/17/2024 Follow-up echocardiogram:Left ventricular systolic function is normal, estimated at 55-60%. Continue IV Lasix Switched to oral hydrochlorothiazide. Amlodipine has been stopped due to lower extremity edema to lisinopril and carvedilol Essential hypertension Continue amlodipine 10 mg daily p.o., clot leading 0.1 mg t.i.d. p.o., Iron deficiency anemia Hemoglobin stable Continue ferrous sulfate 325 mg daily p.o. Uncontrolled type 2 diabetes Home metformin during p.o. Continue Lantus 23 units q.h.s., lispro 10 units q.h.s., and sliding scale a.c. q.h.s. Optimize medication to control glucose in the target range A1c 7.8 Add Lantus at discharge humalog already at discharge Time Spent with Patient Time attestation: Total time spent providing and/or coordinating discharge services: 45 minutes Exam Narrative: GENERAL: Pleasant, in no acute distress. Well-nourished. Obesity - EYES: EOMI. Anicteric. - HENT: Moist mucous membranes. - LUNGS: Coarse breath sound bilateral base - CARDIOVASCULAR: Regular rate and rhythm. No murmur. JVD is not appreciated because of obesity. - ABDOMEN: Soft, non-tender and non-distended. No palpable masses. - EXTREMITIES: 2+ edema. Peripheral pulses 2+. Non-tender. - NEUROLOGIC: No focal neurological deficits. CN II-XII grossly intact. - PSYCHIATRIC: Awake, Alert and oriented x 3. Appropriate mood and affect. - SKIN: No rashes or lesions. Warm. - LYMPH: No cervical lymphadenopathy. DS: Data Data Completed and Pending Completed studies during hospitalization: Exam Type: CA echo doppler color flow Study Info Indications - CHF, Edema Complete two-dimensional, color flow and Doppler transthoracic echocardiogram is performed. Summary 1. Complete two-dimensional, color flow and Doppler transthoracic echocardiogram is performed. 2. Left ventricular systolic function is normal, estimated at 55-60%. 3. There is mild tricuspid valve regurgitation. 4. No pulmonary hypertension, estimated pulmonary arterial systolic pressure is 27 mmHg. Left Ventricle Left ventricular systolic function is normal, estimated at 55-60%. Left ventricular chamber dimension is normal. There is no increased left ventricular wall thickness. Left ventricular septal wall motion is normal. The left ventricular diastolic function is normal. Right Ventricle Right ventricular chamber dimension is normal. Right ventricular systolic function is normal. Left Atria Left atrial chamber dimension is normal. Right Atria Right atrial chamber dimension is normal. Aortic Valve The aortic valve is trileaflet. There is no aortic valve sclerosis. There is no aortic valve stenosis. There is no aortic valve regurgitation. Pulmonic Valve The pulmonic valve is normal. There is no pulmonic valve stenosis. There is no pulmonic regurgitation. Mitral Valve The mitral valve has normal leaflets. There is no mitral valve stenosis. There is no mitral valve regurgitation. Tricuspid Valve The tricuspid valve leaflets are normal. There is no significant tricuspid valve stenosis. There is mild tricuspid valve regurgitation. No pulmonary hypertension, estimated pulmonary arterial systolic pressure is 27 mmHg. Pericardium/Pleural The pericardium appears normal. There is no pericardial effusion. Inferior Vena Cava Not well visualized inferior vena cava with >50% collapse upon inspiration consistent with Empty right atrial pressure, 5 mmHg. Aorta The aortic root size at the sinus of Valsalva is normal. The prox ascending aorta size is normal. Labs on day of discharge: Labs from last 24 hours 06/17/24 06/17/24 06/17/24 11:26 07:47 06:07 WBC 7.9 RBC 4.53 Hgb 12.6 Hct 40.6 MCV 89.6 MCH 27.8 MCHC 31.0 L RDW 13.9 Plt Count 176 MPV 11.2 H Sodium 141 Potassium 3.9 Chloride 107 Carbon Dioxide 24 Anion Gap 10 BUN 14 Creatinine 0.48 L Estim Creat Clear Calc 139 Estimated GFR > 60 Glucose 171 H POC Capillary Glucose 175 H 167 H Calcium 9.4 Total Bilirubin 0.6 AST 28 ALT 31 Alkaline Phosphatase 80 NT-Pro-B Natriuret Pep 243 H Total Protein 8.0 Albumin 4.4 06/16/24 06/16/24 19:35 16:46 WBC RBC Hgb Hct MCV MCH MCHC RDW Plt Count MPV Sodium Potassium Chloride Carbon Dioxide Anion Gap BUN Creatinine Estim Creat Clear Calc Estimated GFR Glucose POC Capillary Glucose 199 H 169 H Calcium Total Bilirubin AST ALT Alkaline Phosphatase NT-Pro-B Natriuret Pep Total Protein Albumin Imaging Radiologist's impression: ITS Impressions Chest X-Ray 06/12/24 18:57 IMPRESSION: No acute cardiopulmonary pathology. Discharge Plan Discharge Attending physician on discharge: López Leos Consulting providers: Nica Jaffe Discharging Clinician: López Leos Anticipated Discharge Date/Time: 06/17/24 12:22 Patient Disposition: Home Activity: as tolerated Diet: heart healthy and diabetic Patient Instructions: Antibiotic Form, Chest Pain (GEN) Patient Language: Pashto Stand Alone Forms: General Discharge Information Follow-up/Referrals: Orlando,Crow Tang MD [Primary Care Provider] - 1 Week Discharge Medications: New lisinopril 20 mg Tablet 40 mg PO QAM Qty: 60 0RF hydrochlorothiazide 25 mg Tablet 25 mg PO QAM Qty: 30 0RF carvedilol [Coreg] 12.5 mg Tablet 12.5 mg PO Q12HR Qty: 60 0RF insulin glargine [Lantus Solostar U-100 Insulin] 100 unit/mL (3 mL) insulin pen 24 unit subcut QPM Qty: 15 0RF (DME) blood-glucose meter [OneTouch Verio Flex meter] Misc Qty: 1 0RF Rx Instructions: May substitute to in-stock meter and/or covered by insurance. Use As Directed (DME) OneTouch Verio test strips Strip Qty: 1 0RF Rx Instructions: May substitute to in-stock and/or covered by insurance strips. Use As Directed (DME) pen needle, diabetic 32 gauge x 1/4 Needle Qty: 1 0RF Rx Instructions: As Directed (DME) pen needle, diabetic 32 gauge x 5/32 Needle Qty: 1 0RF Rx Instructions: As Directed (DME) lancets [OneTouch Delica Plus Lancet] 30 gauge misc Qty: 1 0RF Rx Instructions: May substitute to in-stock and/or covered by insurance lancets. Use As Directed (DME) insulin syringe,safety needle 0.5 mL 31 gauge x 5/16 Syringe Qty: 1 0RF Rx Instructions: As Directed (DME) insulin syringe,safety needle 1 mL 32 gauge x 5/16 Syringe Qty: 1 0RF Rx Instructions: As Directed Continued trazodone 50 mg tablet 50 mg PO QHS PRN (Reason: Insomnia) albuterol sulfate 2.5 mg /3 mL (0.083 %) solution for nebulization 2.5 mg inhalation Q6H PRN (Reason: Shortness Of Breath Or Wheezing) ergocalciferol (vitamin D2) 1,250 mcg (50,000 unit) capsule 1,250 mcg PO WEEKLY Rx Instructions: Weekly on Mondays fluticasone propion-salmeterol [Advair HFA] 230-21 mcg/actuation HFA aerosol inhaler 2 puff inhalation Q12HRT 30 Days Qty: 60 6RF rosuvastatin 40 mg Tablet 40 mg PO WEEKLY Rx Instructions: Thursday and Thursday aspirin 81 mg Capsule 81 mg PO DAILY hydroxychloroquine 200 mg tablet 200 mg PO .q12hr Afrin (oxymetazoline) 1 puff intranasal TID PRN (Reason: Congestion) ibuprofen 800 mg tablet 1,600 mg PO BID PRN (Reason: Headache) magnesium oxide 400 mg (241.3 mg magnesium) tablet 400 mg PO HS doxycycline hyclate 100 mg Tablet 100 mg PO Q12HR Qty: 5 0RF cetirizine 10 mg tablet 10 mg PO DAILY famotidine 20 mg tablet 20 mg PO BID PRN (Reason: acid reflux) hydrocodone-acetaminophen 7.5-325 mg tablet 1 tablet PO TID PRN (Reason: pain) ferrous sulfate [FeroSul] 325 mg (65 mg iron) tablet 325 mg PO BID PRN (Reason: menstrual bleeding ) fluticasone propionate 50 mcg/actuation spray,suspension 1 spray INTRANASAL DAILY PRN (Reason: allergy symptoms) metformin 500 mg tablet extended release 24 hr 500 mg PO BID progesterone micronized 100 mg capsule 100 mg PO QPM insulin lispro 100 unit/mL insulin pen 50 unit SUBCUT TIDWM escitalopram oxalate 10 mg tablet 10 mg PO DAILY cyclobenzaprine 5 mg tablet 5 mg PO TID PRN (Reason: muscle pain) pregabalin 200 mg capsule 200 mg PO DAILY Trulicity 3 mg/0.5 mL pen injector 3 mg SUBCUT WEEKLY Rx Instructions: Weekly on Mondays Changed potassium chloride 10 mEq tablet extended release 10 meq PO BIDWM Qty: 60 0RF Discontinued furosemide 20 mg tablet 10 mg PO QAM clonidine HCl 0.1 mg Tablet 0.1 mg PO TID nadolol 80 mg Tablet 80 mg PO TID amlodipine 10 mg Tablet 10 mg PO HS Date of admission: 06/14/24 13:55 Primary Care Provider: Orlando,Crow Tang Admitting Provider: Yvette Cruz Attending physician on admission: Yvette Cruz Condition: Improved Hospitalist MIPS Heart Failure (Exclusion) Patient has history of Heart Transplant or Left Ventricular Assistive Device?: No IF YES, STOP HERE Heart Failure (Qualifier) Patient has current or prior documentation of LVEF less than or equal to 40%, or mod/servere depressed LVSF?: No IF NO, STOP HERE
== END 2024-06-17 14:20 | disposition home or self-care (01) | DRG 194 ==
LOC: ANHED 23:57 → ANHIMU 06-13 00:15 → ANH3MEDSUR 06-15 22:31
PROVIDERS: General Practice; Hospitalist; Student in an Organized Health Care Education/Training Program; Admitting Provider Internal Medicine; Emergency Provider Preventive Medicine Aerospace Medicine; PCP Family Medicine; Visit Provider Internal Medicine
DX: I11.0 Hypertensive heart disease with heart failure (principal); I50.33 Acute on chronic diastolic (congestive) heart failure; J45.909 Unspecified asthma, uncomplicated; E87.6 Hypokalemia; E11.9 Type 2 diabetes mellitus without complications; E78.5 Hyperlipidemia, unspecified; E78.1 Pure hyperglyceridemia; D50.9 Iron deficiency anemia, unspecified; K21.9 Gastro-esophageal reflux disease without esophagitis; M06.9 Rheumatoid arthritis, unspecified; F41.9 Anxiety disorder, unspecified; F32.A Depression, unspecified; Z20.822 Contact with and (suspected) exposure to COVID-19; Z79.82 Long term (current) use of aspirin; Z87.891 Personal history of nicotine dependence
CPT/HCPCS: 36415; 71046; 80048; 80053; 82948; 83036; 83690; 83735; 83880; 84443; 84484; 85025; 85027; 85610; 85730; 87636; 93005; 93306; 94640; 99285; A9270; G0378; G0379; J1815; J1938

== ENCOUNTER 2024-06-20 16:19 | Inpatient (IN) | payer MEDICAID, SELFPAY ==
--- NOTE | ~2024-06-20 | XR_ITS ---
EXAMINATION: XR chest 1V portable DATE: 06/23/2024 09:30 INDICATION: Heart failure TECHNIQUE: frontal view of the chest was obtained. COMPARISON: Chest radiograph dated 06/12/2024 FINDINGS: The lungs remain clear with no focal airspace opacities, pulmonary edema, pleural effusion or pneumot horax. The cardiomediastinal silhouette is normal. Visualized bones and soft tissues are unremarkable . IMPRESSION: 1. No acute cardiopulmonary disease. Reviewed, dictated and finalized at location A.
--- NOTE | ~2024-06-20 | CT_ITS ---
CLINICAL INDICATION: Abdominal pain and intractable vomiting COMPARISON: None. TECHNIQUE: Multiple contiguous axial images of the abdomen and pelvis were performed following the ad ministration of with 100 mL Omnipaque-350 intravenous contrast The dose-length product (DLP) was 1410.35 mGy-cm. Automated exposure control and iterative reconstruction technique were employed. FINDINGS/OBSERVATIONS: Visualized lower thorax: The bilateral lung bases are clear. The heart is of normal size, without pericardial effusion. Small hiatal hernia is present. Liver: The liver demonstrates homogeneous enhancement and is enlarged measuring 20 cm in longitudinal dimens ion. Gallbladder and biliary system: The gallbladder is only minimally distended, and otherwise unremarkable. Pancreas: The pancreas enhances homogeneously without ductal dilatation. Spleen: Multiple rounded foci of decreased attenuation within the spleen, too small to characterize o n the current examination. The remainder of the spleen otherwise enhances homogeneously and is borderline enlarged measuring 12 cm in longitudinal dimension. Kidneys: The bilateral kidneys enhance symmetrically without hydronephrosis or renal calculi. Adrenal glands: Unremarkable. Gastrointestinal tract: Fecal stasis within the colon. Appendix: The appendix is not definitively visualized. However, no pericecal inflammatory change is identified suggest the presence of acute appendicitis. Vasculature: Unremarkable. Lymph nodes: No pathologically enlarged or morphologically suspicious lymph nodes within the retroperitoneum or at the root of the mesentery. Pelvic structures: The bladder is only minimally distended, and otherwise unremarkable. Redemonstration of a heterogeneously necrotic mass within the body of the uterus distorting in anteri or displacing the endometrial canal. This focus is unchanged dating back to 06/20/2015, consistent with a submucosal fibroid. Body wall and musculoskeletal: Small fat-containing umbilical hernia. No significant degenerative disease within the lower thoracic or lumbosacral spine. IMPRESSION: Redemonstration of a chronic mass within the body of the uterus distorting the endometrial canal, unc hanged dating back to 2015. Hepatomegaly with borderline splenomegaly. Reviewed, dictated and finalized at location A. IMPRESSION: Redemonstration of a chronic mass within the body of the uterus distorting the endometrial canal, unchanged dating back to 2016. Hepatomegaly with borderline splenomegaly.
--- NOTE | ~2024-06-20 | US_ITS ---
EXAMINATION: US carotid duplex BI DATE: 06/27/2024 17:24 INDICATION: Syncope and collapse. Cerebral infarction. Cerebral atherosclerosis. TECHNIQUE: Grayscale, color Doppler, and pulsed Doppler images of the cervical carotid arteries were obtained. The degree of vessel stenosis is placed in one of the following categories: normal, <50%, 5 0-69%, >=70% but less than near-occlusion, near-occlusion, or total occlusion. Note that percent sten osis relative to normal distal artery lumen diameter is indirectly measured from velocity measurement s as described by Surendra, et al. Radiology 2003; [id number]. COMPARISON: None. FINDINGS: RIGHT: The right common carotid artery (CCA) peak systolic velocity (PSV) is 46 cm/s. The right internal car otid artery (ICA) PSV is 72 cm/s. The right ICA end-diastolic velocity (EDV) is 21 cm/s. The right IC A/CCA PSV ratio is 1.6. Grayscale and color Doppler images yield an estimate of <50% diameter reducti on from plaque in the ICA. The external carotid artery (ECA) PSV is 64 cm/s. There is antegrade flow in the right vertebral artery. LEFT: The left CCA PSV is 60 cm/s. The left ICA PSV is 186 cm/s. The left ICA EDV is 43 cm/s. The left ICA/ CCA PSV ratio is 3.1. Grayscale and color Doppler images yield an estimate of 50-69% diameter reducti on from plaque in the ICA. The ECA PSV is 92 cm/s. There is antegrade flow in the left vertebral erickson ry. IMPRESSION: 1. <50% stenosis in the right internal carotid artery. 2. 50-69% stenosis in the left internal carotid artery. Reviewed, dictated and finalized at location A.
--- NOTE | ~2024-06-20 | XR_ITS ---
XR chest 1V portable Ordering provider: Pearl Lemus APRN History: 53 years Female with . sepsis . Comparison: June 23, 2024 FINDINGS: MEDIASTINUM: The cardiac silhouette is not enlarged. LUNGS: No infiltrates, effusions or pneumothorax. OTHER: No free air under the diaphragm. Degenerative the spine. IMPRESSION: No acute cardiopulmonary pathology Reviewed, dictated and finalized at location A.
--- NOTE | ~2024-06-20 | MR_ITS ---
EXAMINATION: MR brain/brain stem wo con DATE: 06/28/2024 13:24 INDICATION: Unresponsiveness and ataxia. TECHNIQUE: Magnetic resonance imaging (MRI) of the brain and brainstem was performed without intraven ous contrast. Sequences included sagittal and axial T1-weighted SE, axial diffusion-weighted FS SE, a xial T2*-weighted GRE and axial T2-weighted FLAIR. Apparent diffusion coefficient (ADC) maps were cre ated. COMPARISON: Head CT dated 06/26/2024 and brain MR dated 03/15/2023 FINDINGS: There are no areas of restricted diffusion to suggest acute infarction. No intracranial hemorrhage or abnormal intracranial mass lesion. There are scattered areas of nonspecific increased T2-weighted si gnal intensity in the cerebral white matter, predominantly involving the deep and periventricular whi te matter. There are no intraparenchymal signal abnormalities seen on the other pulse sequences. The ventricles are symmetric and normal in size. There are no abnormal extra-axial fluid collections. Wyatt w voids are seen in the cerebral arteries on the T2-weighted sequences consistent with their expected patency. There is filling of the majority of the bilateral maxillary, ethmoid and frontal sinuses co nsistent with combination of prominent mucosal thickening and central mucous. Additional less severe mucosal thickening in the bilateral sphenoid sinuses. Visualized orbits and soft tissues are unremark able. IMPRESSION: 1. Moderate scattered white matter T2 hyperintensity consistent with chronic small vessel ischemic di sease. No other acute intracranial process. 2. Pansinusitis. Reviewed, dictated and finalized at location A. IMPRESSION: 1. Moderate scattered white matter T2 hyperintensity consistent with chronic sm all vessel ischemic disease. No other acute intracranial process. 2. Pansinusitis.
--- NOTE | ~2024-06-20 | CT_ITS ---
CT brain wo con Ordering provider: Geetha Valenzuela MD History: 53 years Female with . fall at 1830 . Comparison: October 28, 2011 Technique: CT of the head without contrast. Radiation reduction technique utilized. The dose-length product was 681 mGy-cm FINDINGS: BRAIN PARENCHYMA AND CSF SPACES: No midline shift, mass effect or hemorrhage. The brain parenchyma a nd CSF spaces are otherwise normal. VISUALIZED PARANASAL SINUSES: Bilateral frontal, ethmoid, maxillary and sphenoidal sinusitis. MASTOIDS: Well aerated. BONES: The bones appear intact. SOFT TISSUES: Visualized nasopharynx is normal. Superficial soft tissues are normal. IMPRESSION: No acute intracranial findings. Pansinusitis. Reviewed, dictated and finalized at location A.
[2024-06-20 16:24] VITALS: BP 184/104; PULSE 86; RESP 20; TEMP 36.4; O2SAT 100
--- OUTSIDE RECORDS SUMMARY | 2024-06-20 16:44 | XMS_ITS | Clinical Summary ---
Author Organization [facility] Address [address] [place] [id number] Care Team Providers Care Senior Environmental Practice Leader Name Role Phone Carlos Wallace NP Primary Care Provider [phone] Allergies Active Allergy Reactions Criticality Noted Date [...] on file Legal Sex Female 1:13 AM MAINSPRING REVERSE WINDER Gender Identity Not on file Sexual Orientation [...] Comments LIPID PANEL Routine 01/12/2023 7:51 AM MAINSPRING REVERSE WINDER from Last 3 Months or Most Recently Relevant to Health Maintenance Results * (ABNORMAL) Lipid panel (01/12/2023 7:51 AM [employer]INSPR[employer] REVERSE WINDER) SCRIBED Cholesterol, Total 122 0 - 200 EXTERNAL LAB SCRIBED HDL 41 40 - 100 EXTERNAL LAB SCRIBED LDL 51 0 - 100 EXTERNAL LAB SCRIBED Triglycerides 253(A) 0 - 150 EXTERNAL LAB Blood 01/12/2023 7:51 AM MAINSPRING REVERSE WINDER us Historical Provider LAB BLOOD ORDERABLES Aubree l Result EXTERNAL LAB from Last 3 Months or Most Recently Relevant to Health Maintenance Insurance [place] [employer] [facility] Care Teams Senior Environmental Practice Leader Relationship Specialty Start Date End Date Carlos Wallace WASTEWATER TREATMENT PLANT INSTRUCTOR PCP - General 06/04/20
--- OUTSIDE RECORDS SUMMARY | 2024-06-20 16:44 | XMS_ITS | Referral Summary ---
Author Organization [facility] Address [address] [place] [id number] Care Team Providers Care Phosphatic Fertilizer Supervisor Name Role Phone Carlos Wallace NP Primary Care Provider [phone] Allergies Active Allergy Reactions Criticality Noted Date [...] on file Legal Sex Female 1:13 AM YARD LABOR SUPERVISOR Gender Identity Not on file Sexual Orientation [...] Comments LIPID PANEL Routine 01/12/2023 7:51 AM YARD LABOR SUPERVISOR from Last 3 Months or Most Recently Relevant to Health Maintenance Results * (ABNORMAL) Lipid panel (01/12/2023 7:51 AM YARD LABOR SUPERVISOR) SCRIBED Cholesterol, Total 122 0 - 200 EXTERNAL LAB SCRIBED HDL 41 40 - 100 EXTERNAL LAB SCRIBED LDL 51 0 - 100 EXTERNAL LAB SCRIBED Triglycerides 253(A) 0 - 150 EXTERNAL LAB Blood 01/12/2023 7:51 AM YARD LABOR SUPERVISOR us Historical Provider LAB BLOOD ORDERABLES Aubree l Result EXTERNAL LAB from Last 3 Months or Most Recently Relevant to Health Maintenance Insurance CHOICE PRF PPO [place] [facility] Care Teams Phosphatic Fertilizer Supervisor Relationship Specialty Start Date End Date Carlos Wallace NP PCP - General 06/04/20
--- OUTSIDE RECORDS SUMMARY | 2024-06-20 16:44 | XMS_ITS | CONTINUITY OF CARE DOCUMENT ---
Author Name lauren aguilar Address Unknown Organization [facility] Address [address] [place] [address] [address] [place] [address] Phone [phone] Care Team Providers Care Ceramic Painter Name Role Phone Rizwan DAVIS, Cary Unavailable WEIR ELECTRONICS INSTALLER, DELORA Unavailable WEIR ELECTRONICS INSTALLER, DELORA Unavailable [phone] PROBLEMS Condition Status Date Provider Notes Chest pain active Saul Lambros Tachycardia active Saul Lambros Anemia active Saul Lambros Shortness of breath (SOB) active Saul L ambros Diabetes mellitus active Saul Lambros Obesity active Saul Lambros HTN essential active Saul Lambros Hypertriglyceridemia active Saul Lambro s ENCOUNTERS Date Type Provider Location Encounter Diag nosis - In-person encounter Office Visit Cary Astorga MD [facility] - In-person encounter Office Visit Cary Astorga MD [facility] Chest painTachycardiaAnemiaShortness of breath (SOB)Diabetes mellitusObesityHTN [...] tablet by mouth once a day 05/23 Marayna Cosmonenfelder #90, 90 days supply, Prescribed by [...] Payer name Policy type / Coverage type [place] red [employer] party ID [facility] [id number] ADVANCE DIRECTIVES Name Date DISCUSSED - NO DECISION MADE TREATMENT PLAN Date Name Performer [employer] [facility] [place], F/up with me Dec 8 at 345p Cary Astorga MD [employer] [facility] [place], F/up with me Dec 8 at 345p Cary Astorga MD [employer] [facility] [place], F/up with me Dec 8 at 345p Cary Astorga MD [employer] [facility] at [place], F/up with me Dec 8 at 345p Cary Astorga MD [employer] [facility] at [place], F/up with me Jan 8 at 345p Cary Astorga MD [employer] [facility] at [place], F/up with me Dec 8 at 345p [...]
--- OUTSIDE RECORDS SUMMARY | 2024-06-20 16:44 | XMS_ITS | Data Portability ---
Author Organization [facility] Address [address] [place] [address] Care Team Providers Care Apns Name Role Phone BEVERLYE DIANE Primary Care Provider [phone] Assessment Encounter Date Assessment Date Assessment LastModified by Organization Details LastModified Time 06/25/2023 06/25/2023 Stop glimepiride. Stop the ibuprofen. Pt is to see an ENT specialist. [email or web address] Not available 06/25/2023 12:54:00 Plan of Treatment Reminders Order Date Submit Date Provider Last Modified By Organization Details Last Modified Time Details Appointments None record ed. Lab HbA1c (hemog lobin A1c), blood 2023 024 NASHUA [facility], [address], [place], [address], 4 02:22:45 CMP, serum or plasma 2023 024 NASHUA [facility], [address], [place], [address], 4 02:22:43 TSH, ultra- sensit edouard, serum 2023 024 [facility], [address], [place], [address], 4 15:48:49 CBC w/ auto diff 2023 024 JUAN [facility], [address], [place], [address], 4 02:22:44 magnes ium, serum or plasma 2023 024 [facility], [address], [place], [address], 4 02:22:43 lipid panel, serum 2023 024 [facility], [address], [place], [address], 4 02:22:42 vitami n D, 25-hyd howard, total, serum 2023 024 [facility], [address], [place], [address], 4 02:22:45 hepati tis panel (A+B+C ), acute, serum 2014 015 [facility], [address], [address], [place], [address], 4 12:22:15 ferrit in, serum or plasma 2014 015 [facility], [address], [address], [place], [address], 4 12:22:15 iron + total iron-b inding capaci ty (TIBC) , serum 2014 015 [facility], [address], [address], [place], [address], 4 12:22:15 vitami n B12 + folate , serum or blood 2014 015 [facility], [address], [address], [place], [address], 4 12:22:15 CMP, serum or plasma 2013 014 [facility], [address] [place], [place] [address]kel[address], [address], [place], [address], 4 12:22:15 microa lbumin /creat inine, mass ratio, urine 2013 014 [facility], [address] [place] [address], [address], [place], [address], 4 12:22:15 lipid panel, serum 2013 014 [facility], [address] [place] [address], [address], [place], [address], 4 12:22:15 CBC 2013 014 [facility], [address] [place] [address], [facility] [address], [place], [address], 4 12:22:15 Referral None record ed. Procedures None record ed. Surgeries None record ed. Imaging None record ed. Medication Orders omepra zole 20 mg capsul e,fabby yed releas e 2023 024 [email or web address] [email or web address], [id number], 5 17:12:26 escita lopram 10 mg tablet 2023 024 JUAN [email or web address]16558, [address], [id number], 4 12:48:53 Celebr ex 100 mg capsul e 2023 024 [email or web address], [address], [id number], 4 10:05:12 amoxic illin 500 mg tablet 2014 015 [facility], [address] [place] [address], [address], 4 12:22:15 ferrou s sulfat e 325 mg (65 mg iron) tablet 2014 015 [facility], [address] [place] [address], [address], 4 12:22:15 cyclob enzapr ine 10 mg tablet [address] [facility], [address] [place] [address], [address], 4 07:20:09 clonid ine HCl 0.1 mg tablet 2013 014 [facility], [address] [place] [address], [address], 4 12:22:15 amlodi pine 10 mg tablet 2013 014 [facility], [address] [place] [address], [address], 4 12:22:15 sertra line 50 mg tablet [address] [facility], [address] [place] [address], [address], 4 07:19:42 Patient TargetsNo targets recorded. Patient Instructions Encounter Date Encounter Id Patient Instructions Last Modified By Organization Details Last Modified Time 01/23/2014 [id number] Take meds as prescribed Healthy ADA diet/ exercise f/u with endo nsuthan Not available 01/23/2014 15:02:38 04/24/2014 [id number] Take meds as prescribed Healthy ADA diet/ exercise f/u with endo f/u in 2 month with lab nsuthan Not available 04/24/2014 15:10:19 06/25/2023 [id number] mammogram: about this test [email or web address] Not available 06/25/2023 13:02:18 insomnia: care instructions [email or web address] Not available 06/25/2023 12:55:57 learning about t ype 2 diabetes [email or web address] Not available 06/25/2023 12:37:16 type 2 diabetes: care instructions [email or web address] Not available 06/25/2023 12:37:16 gastroesophageal reflux disease (GERD): care instructions [email or web address] Not available 06/25/2023 12:34:56 controlling your asthma: care instructions [email or web address] Not available 06/25/2023 12:28:19 learning about asthma [email or web address] Not available 06/25/2023 12:28:19 high blood press ure: care instructions [email or web address] Not available 06/25/2023 12:31:27 learning about h igh blood pressure Not available 06/25/2023 12:31:27 Rheumatoid Arthr itis (RA): Care Instructions [email or web address] Not available 06/25/2023 12:43:32 Reason for Referral None Reported. Results Created Date Observation Date Name Description Value Unit Range Abnormal Flag Note LastModifiedBy Organization Detail LastModifiedTime 12/25/1912/25/2023 COLOG UARD cologuard result Cancel led - Duplic ate Order not applic able Not Available [facility] (Cologuard Orders Only) [address], [place], [address], 12/25/2023 12:12:03 08/01/1908/03/2023 LIPID PANEL , STAND MARTA cholesterol, total 132 mg/dL <200 normal Not Available [facility] [address] [place], [address], 08/03/2023 03:36:13 08/01/19 24 08/03/2023 LIPID PANEL , STAND MARTA HDL cholesterol 39 mg/dL > or = 50 low Not Available [facility] [address] [place], [address], 08/03/2023 03:36:13 08/01/19 24 08/03/2023 LIPID PANEL , STAND MARTA triglyceride s 212 mg/dL <150 high If a non-f astin g speci men was colle cted, consi maría repea t trigl yceri de testi ng on a fasti ng speci men if clini sreekanth indic ated. Geoffrey copeland et al. J. of Clin. Lipid ol. 2015; 9:129 -169. Not Available [facility] [address] [place] [address], [address], 08/03/2023 03:36:13 08/01/19 24 08/03/2023 LIPID PANEL [...] 9): 2061- 2068 (http ://ed ucati on.Qu biaWesabe. KIXEYE/f aq/FA Q164) Not Available [facility] [address] [place], [address], 08/03/2023 03:36:13 08/01/19 24 08/03/2023 LIPID PANEL , STAND MARTA chol/HDLC ratio 3.4 (calc ) <5.0 normal Not Available [facility] [address] [place], [address], 08/03/2023 03:36:13 08/01/19 24 08/03/2023 LIPID PANEL , STAND MARTA non HDL cholesterol 93 mg/dL _(luna c) <130 normal For patie nts with diabe nathalie plus 1 major ASCVD risk facto r, treat ing to a non-H DL-C goal of <100 mg/dL (LDL- C of <70 mg/dL ) is consi dered a thera peuti c optio n. Not Available [address], [address], 08/03/2023 03:36:13 08/01/19 24 08/03/2023 MAGNE SIUM magnesium 1.9 mg/dL 1.5-2. 5 normal Not Available [address], [address], 08/03/2023 03:36:14 08/01/19 24 08/03/2023 COMPR EHENS EDOUARD METAB OLIC PANEL glucose 111 mg/dL 65-99 high Fasti ng refer ence inter juan For someo ne witho ut known diabe nathalie, a gluco se value betwe en 100 and 125 mg/dL is consi stent with predi abete s and shoul d be confi rmed with a follo w-up test. Not Available [address], [address], 08/03/2023 03:36:15 08/01/19 24 08/03/2023 COMPR EHENS EDOUARD METAB OLIC PANEL urea nitrogen (BUN) 19 mg/dL 7-25 normal Not Available [address], [address], 08/03/2023 03:36:15 08/01/19 24 08/03/2023 COMPR EHENS EDOUARD METAB OLIC PANEL creatinine 0.71 mg/dL 0.50-1 .03 normal Not Available [address], [address], 08/03/2023 03:36:15 08/01/19 24 08/03/2023 COMPR EHENS EDOUARD METAB OLIC PANEL eGFR 101 mL/mi n/1.7 3m2 > or = 60 normal Not Available [address], [address], 08/03/2023 03:36:15 08/01/19 24 08/03/2023 COMPR EHENS EDOUARD METAB OLIC PANEL BUN/creatini ne ratio SEE NOTE: (calc ) 6-22 Not Repor yann: BUN and Creat inine are withi n refer ence range . Not Available [address], [address], 08/03/2023 03:36:15 08/01/19 24 08/03/2023 COMPR EHENS EDOUARD METAB OLIC PANEL sodium 144 mmol/ L 135-14 6 normal Not Available [address], [address], 08/03/2023 03:36:15 08/01/19 24 08/03/2023 COMPR EHENS EDOUARD METAB OLIC PANEL potassium 4.0 mmol/ L 3.5-5. 3 normal Not Available [address], [address], 08/03/2023 03:36:15 08/01/19 24 08/03/2023 COMPR EHENS EDOUARD METAB OLIC PANEL chloride 106 mmol/ L 98-110 normal Not Available [address], [address], 08/03/2023 03:36:15 08/01/19 24 08/03/2023 COMPR EHENS EDOUARD METAB OLIC PANEL carbon dioxide 28 mmol/ L 20-32 normal Not Available [address], [address], 08/03/2023 03:36:15 08/01/19 24 08/03/2023 COMPR EHENS EDOUARD METAB OLIC PANEL calcium 9.1 mg/dL 8.6-10 .4 normal Not Available [address], [address], 08/03/2023 03:36:15 08/01/19 24 08/03/2023 COMPR EHENS EDOUARD METAB OLIC PANEL protein, total 6.4 g/dL 6.1-8. 1 normal Not Available [address], [address], 08/03/2023 03:36:15 08/01/19 24 08/03/2023 COMPR EHENS EDOUARD METAB OLIC PANEL albumin 3.9 g/dL 3.6-5. 1 normal Not Available [address], [address], 08/03/2023 03:36:15 08/01/19 24 08/03/2023 COMPR EHENS EDOUARD METAB OLIC PANEL globulin 2.5 g/dL_ (calc ) 1.9-3. 7 normal Not Available [address], [address], 08/03/2023 03:36:15 08/01/19 24 08/03/2023 COMPR EHENS EDOUARD METAB OLIC PANEL albumin/glob ulin ratio 1.6 (calc ) 1.0-2. 5 normal Not Available [address], [address], 08/03/2023 03:36:15 08/01/19 24 08/03/2023 COMPR EHENS EDOUARD METAB OLIC PANEL bilirubin, total 0.2 mg/dL 0.2-1. 2 normal Not Available [address], [address], 08/03/2023 03:36:15 08/01/19 24 08/03/2023 COMPR EHENS EDOUARD METAB OLIC PANEL alkaline phosphatase 69 U/L 37-153 normal Not Available [address], [address], 08/03/2023 03:36:15 08/01/19 24 08/03/2023 COMPR EHENS EDOUARD METAB OLIC PANEL AST 10 U/L 10-35 normal Not Available [address], [address], 08/03/2023 03:36:15 08/01/19 24 08/03/2023 COMPR EHENS EDOUARD METAB OLIC PANEL ALT 9 U/L 6-29 normal Not Available [address], [address], 08/03/2023 03:36:15 08/01/19 24 08/02/2023 CBC (INCL UDES DIFF/ PLT) white blood cell count 8.3 thous and/u L 3.8-10 .8 normal Not Available [address], [address], 08/02/2023 11:08:40 08/01/19 24 08/02/2023 CBC (INCL UDES DIFF/ PLT) red blood cell count 3.97 ismael on/uL 3.80-5 .10 normal Not Available [address], [address], 08/02/2023 11:08:40 08/01/19 24 08/02/2023 CBC (INCL UDES DIFF/ PLT) hemoglobin 11.1 g/dL 11.7-1 5.5 low Not Available [address], [address], 08/02/2023 11:08:40 08/01/19 24 08/02/2023 CBC (INCL UDES DIFF/ PLT) hematocrit 35.2 % 35.0-4 5.0 normal Not Available [address], [address], 08/02/2023 11:08:40 08/01/19 24 08/02/2023 CBC (INCL UDES DIFF/ PLT) MCV 88.7 fL 80.0-1 00.0 normal Not Available [address], [address], 08/02/2023 11:08:40 08/01/19 24 08/02/2023 CBC (INCL UDES DIFF/ PLT) MCH 28.0 pg 27.0-3 3.0 normal Not Available [address], [address], 08/02/2023 11:08:40 08/01/19 24 08/02/2023 CBC (INCL UDES DIFF/ PLT) MCHC 31.5 g/dL 32.0-3 6.0 low Not Available [address], [address], 08/02/2023 11:08:40 08/01/19 24 08/02/2023 CBC (INCL UDES DIFF/ PLT) RDW 13.2 % 11.0-1 5.0 normal Not Available [address], [address], 08/02/2023 11:08:40 08/01/19 24 08/02/2023 CBC (INCL UDES DIFF/ PLT) platelet count 145 thous and/u L 140-40 0 normal Not Available [address], [address], 08/02/2023 11:08:40 08/01/19 24 08/02/2023 CBC (INCL UDES DIFF/ PLT) MPV 10.8 fL 7.5-12 .5 normal Not Available [address], [address], 08/02/2023 11:08:40 08/01/19 24 08/02/2023 CBC (INCL UDES DIFF/ PLT) absolute neutrophils 5403 cells /uL 1500-7 800 normal Not Available [address], [address], 08/02/2023 11:08:40 08/01/19 24 08/02/2023 CBC (INCL UDES DIFF/ PLT) absolute lymphocytes 2158 cells /uL 850-39 00 normal Not Available [address], [address], 08/02/2023 11:08:40 08/01/19 24 08/02/2023 CBC (INCL UDES DIFF/ PLT) absolute monocytes 581 cells /uL 200-95 0 normal Not Available [address], [address], 08/02/2023 11:08:40 08/01/19 24 08/02/2023 CBC (INCL UDES DIFF/ PLT) absolute eosinophils 108 cells /uL 15-500 normal Not Available [address], [address], 08/02/2023 11:08:40 08/01/19 24 08/02/2023 CBC (INCL UDES DIFF/ PLT) absolute basophils 50 cells /uL 0-200 normal Not Available [address], [address], 08/02/2023 11:08:40 08/01/19 24 08/02/2023 CBC (INCL UDES DIFF/ PLT) neutrophils 65.1 % normal Not Available [address], [address], 08/02/2023 11:08:40 08/01/19 24 08/02/2023 CBC (INCL UDES DIFF/ PLT) lymphocytes 26.0 % normal Not Available [address], [address], 08/02/2023 11:08:40 08/01/19 24 08/02/2023 CBC (INCL UDES DIFF/ PLT) monocytes 7.0 % normal Not Available [address], [address], 08/02/2023 11:08:40 08/01/19 24 08/02/2023 CBC (INCL UDES DIFF/ PLT) eosinophils 1.3 % normal Not Available [facility] [address] [place], [address], 08/02/2023 11:08:40 08/01/19 24 08/02/2023 CBC (INCL UDES DIFF/ PLT) basophils 0.6 % normal Not Available [facility] [address] [place], [address], 08/02/2023 11:08:40 08/01/19 24 08/02/2023 TSH TSH 0.70 mIU/L normal Refer ence Range > or = 20 Years 0.40- 4.50 Pregn jabari Range s First trime ster 0.26- 2.66 Secon d trime ster 0.55- 2.73 Third trime ster 0.43- 2.91 Not Available [address] [address] [place], [address], 08/02/2023 09:02:54 08/01/19 24 08/02/2023 VITAM IN [...] /MS is recom jana d: order code 12992 (saloni ents >2yrs ). See Note 1 Note 1 For addit ional infor jose fleming e refer to http: //ty Delgado stDia gnost ics.c om/fa q/FAQ 199 (This link is being provi ded for infor sea rizvi/ educa william l purpo ses only. ) Not Available [facility] [address], [place], [address], 08/02/2023 09:02:54 08/01/19 24 08/02/2023 HEMOG LOBIN [...] valid ation testi ng condu cted at [employer] , the [facility] or[facility] relat edouard [...] is not recom jana d. Not Available [facility] [address] [address] [place], [address], 08/02/2023 02:22:45 10/27/1910/28/2023 LIPID PANEL , STAND MARTA cholesterol, total 136 mg/dL <200 normal Not Available [facility] [address] [address] [place], [address], 10/28/2023 12:00:15 10/27/1910/28/2023 LIPID PANEL , STAND MARTA HDL cholesterol 56 mg/dL > or = 50 normal Not Available [facility] [address] [address] [place], [address], 10/28/2023 12:00:15 10/27/1910/28/2023 LIPID PANEL , STAND MARTA triglyceride s 143 mg/dL <150 normal Not Available [address] [address] [place], [address], 10/28/2023 12:00:15 10/27/1910/28/2023 LIPID PANEL , STAND [...] which is a valid ated novel nataliao monalisa chin accur acy than the Fried audra equat ion in the estim ation of LDL-C . Enedina alvarado SS et al. IRVING. 2013; 310(1 9): 2061- 2068 (http ://ed ucati on.Qu Rose knight tics. com/f aq/FA Q164) Not Available [facility] [address], [place], [address], 10/28/2023 12:00:15 10/27/1910/28/2023 LIPID PANEL , STAND MARTA chol/HDLC ratio 2.4 (calc ) <5.0 normal Not Available [address], [address], 10/28/2023 12:00:15 10/27/19 24 10/28/2023 LIPID PANEL , STAND MARTA non HDL cholesterol 80 mg/dL _(luna c) <130 normal For patie nts with diabe nathalie plus 1 major ASCVD risk facto r, treat ing to a non-H DL-C goal of <100 mg/dL (LDL- C of <70 mg/dL ) is consi padmini a angélica beltran optio n. Not Available [address], [address], 10/28/2023 12:00:15 10/27/1910/28/2023 MAGNE SIUM magnesium 1.3 mg/dL 1.5-2. 5 low Not Available [employer] [address], [address], 10/28/2023 12:00:16 10/27/1910/28/2023 COMPR EHENS EDOUARD METAB OLIC PANEL glucose 157 mg/dL 65-99 high Fasti ng refer ence inter juan For someo ne witho ut known diabe nathalie, a gluco se value >125 mg/dL indic ates that they may have diabe nathalie and this shoul d be confi rmed with a follo w-up test. Not Available [employer] [address], [address], 10/28/2023 12:00:17 10/27/1910/28/2023 COMPR EHENS EDOUARD METAB OLIC PANEL urea nitrogen (BUN) 17 mg/dL 7-25 normal Not Available [facility] [address], [address], 10/28/2023 12:00:17 10/27/19 24 10/28/2023 COMPR EHENS EDOUARD METAB OLIC PANEL creatinine 1.11 mg/dL 0.50-1 .03 high Not Available [address], [address], 10/28/2023 12:00:17 10/27/19 24 10/28/2023 COMPR EHENS EDOUARD METAB OLIC PANEL eGFR 59 mL/mi n/1.7 3m2 > or = 60 low Not Available [address], [address], 10/28/2023 12:00:17 10/27/19 24 10/28/2023 COMPR EHENS EDOUARD METAB OLIC PANEL BUN/creatini ne ratio 15 (calc ) 6-22 normal Not Available [address], [address], 10/28/2023 12:00:10/27/1910/28/2023 COMPR EHENS EDOUARD METAB OLIC PANEL sodium 143 mmol/ L 135-14 6 normal Not Available [address], [address], 10/28/2023 12:00:17 10/27/1910/28/2023 COMPR EHENS EDOUARD METAB OLIC PANEL potassium 3.1 mmol/ L 3.5-5. 3 low Not Available [address], [address], 10/28/2023 12:00:17 10/27/19 24 10/28/2023 COMPR EHENS EDOUARD METAB OLIC PANEL chloride 101 mmol/ L 98-110 normal Not Available [address], [address], 10/28/2023 12:00:17 10/27/19 24 10/28/2023 COMPR EHENS EDOUARD METAB OLIC PANEL carbon dioxide 29 mmol/ L 20-32 normal Not Available [address], [address], 10/28/2023 12:00:10/27/19 24 10/28/2023 COMPR EHENS EDOUARD METAB OLIC PANEL calcium 9.3 mg/dL 8.6-10 .4 normal Not Available [address], [address], 10/28/2023 12:00:10/27/19 24 10/28/2023 COMPR EHENS EDOUARD METAB OLIC PANEL protein, total 6.7 g/dL 6.1-8. 1 normal Not Available [address], [address], 10/28/2023 12:00:10/27/1910/28/2023 COMPR EHENS EDOUARD METAB OLIC PANEL albumin 3.9 g/dL 3.6-5. 1 normal Not Available [address], [address], 10/28/2023 12:00:10/27/1910/28/2023 COMPR EHENS EDOUARD METAB OLIC PANEL globulin 2.8 g/dL_ (calc ) 1.9-3. 7 normal Not Available [address], [address], 10/28/2023 12:00:17 10/27/19 24 10/28/2023 COMPR EHENS EDOUARD METAB OLIC PANEL albumin/glob ulin ratio 1.4 (calc ) 1.0-2. 5 normal Not Available [address], [address], 10/28/2023 12:00:10/27/1910/28/2023 COMPR EHENS EDOUARD METAB OLIC PANEL bilirubin, total 0.3 mg/dL 0.2-1. 2 normal Not Available [address], [address], 10/28/2023 12:00:10/27/19 24 10/28/2023 COMPR EHENS EDOUARD METAB OLIC PANEL alkaline phosphatase 72 U/L 37-153 normal Not Available [address], [address], 10/28/2023 12:00:17 10/27/19 24 10/28/2023 COMPR EHENS EDOUARD METAB OLIC PANEL AST 12 U/L 10-35 normal Not Available [address], [address], 10/28/2023 12:00:17 10/27/19 24 10/28/2023 COMPR EHENS EDOUARD METAB OLIC PANEL ALT 10 U/L 6-29 normal Not Available [address], [address], 10/28/2023 12:00:17 10/27/19 24 10/28/2023 CBC (INCL UDES DIFF/ PLT) white blood cell count 6.0 thous and/u L 3.8-10 .8 normal Not Available [address], [address], 10/28/2023 07:02:40 10/27/19 24 10/28/2023 CBC (INCL UDES DIFF/ PLT) red blood cell count 4.10 ismael on/uL 3.80-5 .10 normal Not Available [address], [address], 10/28/2023 07:02:40 10/27/19 24 10/28/2023 CBC (INCL UDES DIFF/ PLT) hemoglobin 11.6 g/dL 11.7-1 5.5 low Not Available [employer] [facility] [address], [address], 10/28/2023 07:02:40 10/27/19 24 10/28/2023 CBC (INCL UDES DIFF/ PLT) hematocrit 36.0 % 35.0-4 5.0 normal Not Available [employer] [address], [address], 10/28/2023 07:02:40 10/27/19 24 10/28/2023 CBC (INCL UDES DIFF/ PLT) MCV 87.8 fL 80.0-1 00.0 normal Not Available [address], [address], 10/28/2023 07:02:40 10/27/19 24 10/28/2023 CBC (INCL UDES DIFF/ PLT) MCH 28.3 pg 27.0-3 3.0 normal Not Available [address], [address], 10/28/2023 07:02:40 10/27/19 24 10/28/2023 CBC (INCL UDES DIFF/ PLT) MCHC 32.2 g/dL 32.0-3 6.0 normal Not Available [address] [id number]|2024-06-24 10:45:15|2024-06-24 10:45:15|[email or web address]||||"Patient hypertensive in recovery, 186/104. PRN order for Hydralazine ordered for patient. Tato spoke with Dr. Kahn who verified to give patient prn hydralazine 10mg."
--- OUTSIDE RECORDS SUMMARY | 2024-06-20 16:44 | XMS_ITS | Data Portability ---
Author Organization [place] [facility], Main Office Address [address] [place] [address] Assessment Encounter Date Assessment Date Assessment LastModified by Organization Details LastModified Time 04/24/2023 04/24/2023 I have reconciled the patient's medications post their discharge from inpatient facility. [email or web address] Not available 04/24/2023 08:55:09 Plan of Treatment Reminders Order Date Submit Date Provider Last Modified By Organization Details Last Modified Time Details Appointments New Patient 30 2024 01:30P Wendi Mckenna NP Not available Not available Not available Lab None recorded. Referral infectiou s disease specialis t referral - Please call patient to schedule an appointme nt. 2023 [email or web address] Jas Lal, [facility] , [address] [address], [place], [address], 06/01/2023 08:54:11 Procedures None recorded. Surgeries None recorded. Imaging None recorded. Medication Orders valacyclo vir 1 gram tablet 2023 024 [facility] #[id number], [address], [id number], 06/16/2023 11:38:31 rosuvasta tin 40 mg tablet 2023 024 [facility] #[id number], [address], [id number], 06/16/2023 11:38:33 ibuprofen 800 mg tablet 2023 024 [facility] #40723, [address], [id number], 06/16/2023 11:38:24 trazodone 50 mg tablet 2023 024 [facility] #01265, [address], [place], [place], [id number], 06/16/2023 11:38:29 escitalop bakari 20 mg tablet 2023 024 [facility] #18444, [address] [facility], [place], [place], [id number], 06/16/2023 11:38:31 furosemid e 40 mg tablet 2023 024 [facility] #04154, [address] [place] [address], [id number], 06/16/2023 11:38:30 Vitamin D2 1,250 mcg (50,000 unit) capsule 2023 024 [facility] #55392, [address] [place] [address], [id number], 06/16/2023 11:38:23 carisopro dol 350 mg tablet 2023 024 [facility] #55236, [address] [place] [address], [id number], 06/16/2023 11:38:48 Trulicity 3 mg/0.5 mL subcutane ous pen injector 2023 024 [facility] #63242, [address] [place] [address], [id number], 06/16/2023 11:38:29 metformin ER 500 mg tablet,ex tended release 24 hr 2023 024 [facility] #56686, [address] [place] [address], [id number], 06/16/2023 11:38:32 famotidin e 20 mg tablet 2023 024 [facility] #14753, [address] [facility], [place], [place], [id number], 06/16/2023 11:38:22 clonidine HCl 0.1 mg tablet 2023 024 [facility] #97100, [address] [facility], [place], [place], [id number], 06/16/2023 11:38:23 amlodipin e 10 mg tablet 2023 024 [facility] #41314, [address] [facility], [place], [place], [id number], 06/16/2023 11:38:20 potassium chloride ER 10 mEq tablet,ex tended release 2023 024 [facility] #01314, [address] [place] [address], [id number], 06/16/2023 11:38:49 nadolol 80 mg tablet 2023 024 [facility] #84454, [address] [place] [address], [id number], 06/16/2023 11:38:32 fluticaso ne propionat e 50 mcg/actua tion nasal spray,[facility] 2023 024 [facility] #97035, [address] [place] [address], [id number], 06/16/2023 11:38:21 magnesium oxide 400 mg (241.3 mg magnesium ) tablet 2023 024 [facility] #61670, [address] [facility], [place], [place], [id number], 06/16/2023 11:38:22 pregabali n 200 mg capsule 2023 [facility] #31465, [address], [place], [place], [id number], 06/16/2023 11:38:45 hydrocodo ne 10 mg-acetam inophen 325 mg tablet 2023 024 [facility] #76655, [address], [place], [place], [id number], 06/16/2023 11:38:49 prednison e 20 mg tablet 2023 [facility] #97419, [address] [facility], [place], [place], [id number], 06/16/2023 11:38:22 sulfameth oxazole 800 mg-trimet hoprim 160 mg tablet [address] [facility] #63270, [address], [place], [place], [id number], 06/16/2023 11:27:10 cephalexi n 500 mg capsule [address] [facility] #61730, [address] [facility], [place], [place], [id number], 06/16/2023 11:27:15 sulfameth oxazole 800 mg-trimet hoprim 160 mg tablet [address] [facility] #84758, [address], [place], [place], [id number], 06/16/2023 11:27:10 cephalexi n 500 mg capsule [address] [facility] #06953, [address], [place], [place], [id number], 06/16/2023 11:27:15 fluconazo le 150 mg tablet 2023 024 [facility] #51017, [address] [place] [address], [id number], 05/25/2023 08:39:01 doxycycli ne hyclate 100 mg capsule 2023 024 [facility] #60952, [address] [facility], [place], [place], [id number], 04/30/2023 17:41:14 Patient TargetsNo targets recorded. Patient Instructions Encounter Date Encounter Id Patient Instructions Last Modified By Organization Details Last Modified Time 04/24/2023 [id number] Thank you for your visit to our [...] at home, please call us to discuss. [email or web address] Not available 04/24/2023 08:55:09 Homebound Status : {{Patient has an inability to leave the home without a taxing effort and assistance from another person Does not meet homebound status}} Required Home Health Services: {{none group home, physical therapy, occupational therapy group home, physical therapy group home}} Durable Medical Equipment needed: {{cane walker wal ker with seat manual wheelchair bedsid e commode oxygen}} Billing Guidelines CPT code 62725- Transitional Care Management services with moderate medical decision complexity (tmgx-uv-gpzk visit within 14 days of discharge). CPT code 37212- Transitional Care Management services with high medical decision complexity (zexl-ce-apye visit within 7 days of discharge). [email or web address] Not available 04/24/2023 08:55:09 Reason for Referral Infectious Disease Specialis t Referral for Cellulitis of lower limb Please call patient to schedule an appointment. Referring Physician: Jyoti Hahn, Family Medicine, Encounter Date: 04/30/2023 Results Created Date Observation Date Name Description Value Unit Range Abnormal Flag Note LastModifiedBy Organization Detail LastModifiedTime 04/06/19 24 04/06/2023 XR, chest , 2 view No observ ation record ed. [address], [place], [address], 04/16/2023 11:48:51 04/06/19 24 04/06/2023 US, doppl er, venou s No observ ation record ed. [address], [place], [address], 04/16/2023 11:55:54 04/06/19 24 04/06/2023 XR, foot No observ ation record ed. [address] [facility], [place], [address], 04/16/2023 11:57:17 04/08/19 24 04/08/2023 MRI, lower extre mity, w/ contr ast No observ ation record ed. [address], [place], [address], 06/28/2023 13:14:26 04/10/19 24 04/10/2023 CT, chest , w/ contr ast No observ ation record ed. [address], [place], [address], 04/16/2023 11:53:56 04/12/19 24 04/12/2023 XR, chest , 1 view No observ ation record ed. [address], [place], [address], 04/16/2023 11:49:54 04/14/19 24 04/13/2023 US, echoc ardio gram No observ ation record ed. [facility] [address], [place], [address], 04/16/2023 11:56:39 Result Notes None recorded. Problems Name Problem SNOMED Code Status Onset Date Resolution Date Notes Provider Name and Address Organization Details Recorded Time Metatarsal tara 90355755 Active 2020 Not Available [facility] 3 00:45:56 Otalgia 71220582 Active Not Available [facility] 3 00:45:56 Liver function tests outside reference range 853104232 Active Not Available [facility] 3 00:45:56 Asthma 054303451 Active Not Available [facility] 3 00:45:57 Sciatica 62431582 Active Not Available [facility] 3 00:45:57 Fluid level behind tympanic membrane Active Not Available [facility] 3 00:45:57 Gastroesop hageal reflux disease without esophagiti s 079545061 Active 2020 Not Available [facility] 3 00:45:57 Dysmenorrh ea 602829596 Active Not Available [facility] 3 00:45:57 Anemia 960836420 Active Not Available [facility] 3 00:45:57 Injury of coccyx 362289685 Active Not Available [facility] 3 00:45:57 Knee pain Active Not Available [facility] 3 00:45:57 Type 2 diabetes mellitus without complicati on 569421752 Active 2020 Not Available [facility] 3 00:45:57 Tachycardi a 9159822 Active Not Available [facility] 3 00:45:57 Vitamin D deficiency 17477300 Active Not Available [facility] 3 00:45:58 Sinusitis 43857728 Active Not Available [facility] 3 00:45:58 Menorrhagi a 845418940 Active Not Available [facility] 3 00:45:58 Uncontroll ed type 2 diabetes mellitus 946769563 Active Not Available [facility] 3 00:45:58 Well controlled type 2 diabetes mellitus 928779501 Active 2021 Not Available [facility] 3 00:45:58 Upper respirator y infection 73054975 Active Not Available [facility] 3 00:45:58 Hyperlipid emia 05870105 Active Not Available [facility] 3 00:45:59 Essential hypertensi on 83587606 Active Not Available [facility] 3 00:45:59 Dyspnea on exertion 44543668 Active 2020 Not Available [facility] 3 00:45:59 Muscle pain 54921553 Active 2020 Not Available [facility] 3 00:45:59 Rheumatoid arthritis 28115721 Active 2020 Not Available [facility] 3 00:45:59 Diabetes mellitus 82530327 Active Not Available [facility] 3 00:45:59 Sleep apnea 29340394 Active 2020 Not Available [facility] 3 00:46:00 Chronic pain 51693915 Active Not Available [facility] 3 00:46:00 Premenstru al tension syndrome 02459523 Active Not Available [facility] 3 00:46:00 Fatigue 23059511 Active 2020 Not Available [facility] 3 00:46:00 Iron deficiency anemia 73188337 Active Not Available [facility] 3 00:46:00 Deliveries by 460951954 Active 2022 Jyoti Hahn MD [address], [place] [address], [place], [address] , [facility] 3 14:01:21 Gestationa l hypertensi on Active 2022 Jyoti Hahn MD [address], [address], [place], [address] , [facility], [facility] 3 14:01:21 Type 2 diabetes mellitus 12915207 Active 2022 MD [address], [address], [place], [address] , [place] [facility] 3 14:01:21 Acute sinusitis 40673749 Active 2022 Jyoti Hahn MD [address], [address], [place], [address] , [place] [facility] 3 17:02:46 Chronic back pain 440257780 Active 2022 JESSICA Garcia [address], [address], [place], [address] , [place] [facility] 3 18:00:40 Acid reflux 854679839 Active 2022 JESSICA Garcia [address], [address], [place], [address] , [place] [facility] 3 10:13:35 Hyperglyce corky due to type 2 diabetes mellitus 6125062363002 09 Active 2022 JESSICA Garcia [address], [address], [place], [address] , [place] [facility] 3 12:09:33 Menopausal symptom 95316948 Active 2022 JESSICA Garcia [address], [address], [place], [address] , [place] [facility] 3 12:11:40 Obesity 081466150 Active 2022 JESSICA Garcia [address], [address], [place], [address] , [place] [facility] 3 12:22:47 Cobalamin deficiency 946190917 Active 2022 JESSICA Garcia [address], [address], [place], [address] , [place] [facility] 3 10:30:41 Postmenopa usal bleeding 71016968 Active 2022 JESSICA Garcia [address], [address], [place], [address] , [place] [facility] 3 10:42:36 Chronic hypokalemi a 55731770 Active 2022 JESSICA Garcia [address], [address], [place], [address] , [place] [facility] 3 13:58:39 Hypokalemi a 41970739 Active 2022 Jyoti Hahn MD [address], [address], [place], [address] , [place] [facility] 3 08:37:56 Pain of ear 652289135 Active 2022 Jyoti Hahn MD [address], [address], [place], [address] , [place] [facility] 3 14:23:43 Chronic obstructiv e pulmonary disease 89906408 Active 2022 JESSICA Garcia [address], [address], [place], [address] , [place] [facility] 3 13:56:38 Herpes labialis 4307367 Active 2022 JESSICA Garcia [address], [address], [place], [address] , [place] [facility] 3 17:23:57 Chronic sinusitis 12590092 Active 2022 JESSICA Garcia [address], [address], [place], [address] , [place] [facility] 3 10:10:11 Edema of lower extremity 314216418 Active 2022 JESSICA Garcia [address], [address], [place], [address] , [place] [facility] 3 10:12:44 Dry eyes 965485467 Active 2022 Jyoti Hahn MD [address], [address], [place], [address] , [place] [facility] 3 09:18:18 Dry eyes 204906311 Active 2022 Jyoti Hahn MD [address], [place], [address] , [place] [facility] 3 09:18:42 Headache 09570273 Active 2022 Jyoti Hahn MD [address], [place], [address] , [place] [facility] 3 10:10:10 Iron deficiency 06174768 Active 2022 Jyoti Hahn MD [address], [place], [address] , [facility] 3 10:12:16 Pain of multiple joints 54166552 Active 2023 Jyoti Hahn MD [address], [place], [address] , [facility] 4 12:21:26 Chronic pansinusit is 29651917 Active 2023 Jyoti Hahn MD [address], [place], [address] , [facility] 4 12:36:59 Magnetic resonance imaging of brain abnormal 199924234 Active 2023 Jyoti Hahn MD [address], [place], [address] , [facility] 4 12:42:51 Cellulitis 782363974 Active 2023 Jyoti Hahn MD [address], [place], [address] , [facility] 4 09:01:09 Pneumonia 060332122 Active 2023 Jyoti Hahn MD [address], [place], [address] , [facility] 4 09:07:49 Cellulitis of lower limb 447263829 Active 2023 Jyoti Hahn MD [address], [address], [place], [address] , [employer] 17:41:49 Problem Notes None recorded. Procedures Surgical History Date Name Laterality Status Provider Name and Address Organization Details Recorded Time 4 Transitional_Ca re_Management completed Nita Mckinnon LPN [place] [facility] 04/24/2023 08:55:09 3 Transitional_Ca re_Management completed Nita Mckinnon LPN [facility] 09/19/2022 08:25:05 1 endometrial ablation completed JESSICA Garcia [address], [address], [place], [address], [employer] [facility] [employer] 07/17/2022 10:50:11 Imaging Results Imaging Date Name Status LastModified by Organization Details LastModified Time 04/06/2023 XR, chest, 2 view completed [address] [place] [address], [address], 04/16/2023 11:48:51 04/06/2023 US, doppler, venous completed [address], [address], 04/16/2023 11:55:54 04/06/2023 XR, foot completed [address] [place] [address], [address], 04/16/2023 11:57:17 04/08/2023 MRI, lower extremity, w/ contrast completed [address] [place] [address], [address], 06/28/2023 13:14:26 04/10/2023 CT, chest, w/ contrast completed [address], [address], 04/16/2023 11:53:56 04/12/2023 XR, chest, 1 view completed [facility] [address] [place] [address] [address], [place], [address], 04/16/2023 11:49:54 04/13/2023 US, echocardiogram completed [facility] [address] [facility] [address], [place], [address], 04/16/2023 11:56:39 Procedure Notes None recorded. Medical Equipment None Reported. Allergies Allergen ID Allergen Name Allergen Category Reaction Reaction Severity Criticality Documentation Date Start Date Code Code System Note Provider Name and Address Organization Details Recorded Time 398 atenolol medicatio n other severe Not available 04/16/2022 1202 RxNorm twent y years ago Not Available [facility] 00:52:08 Medications Name Sig Start Date [...] sodium 2.5 mg tablet TAKE 6 TABLETS [id number]|[id number]|2024-06-21 01:58:07|2024-06-21 01:58:07|PM.IM||||"H&P: HPI History of Present Illness Date/Time: 06/21/24 01:58 Chief Complaint: Nausea/vomiting Narrative: This 63-year-old female patient with history of heart failure, rheumatoid arthritis, asthma, BC, anxiety, depression, GERD, hypertension, hyperlipidemia and type 2 diabetes mellitus comes to the emergency room today with acute onset of nausea and vomiting at 5:30 a.m. this morning. Patient was recently discharged from this hospital on June 17 after being admitted and treated for heart failure exacerbation. She stated at that time no recent medication changes made, (review of EMR shows that medications were changed to hydrochlorothiazide from other blood pressure medications), and she does not know if that had anything to do with her symptoms today states she woke up acutely with nausea vomiting. She denies any fevers. She denies any diarrhea. She denies any known ill contacts but notes she was just recently hospitalized may have gotten something there. She denies any chest pain, dyspnea. Patient is a nonsmoker and denies any use drugs including marijuana. She has an occasional social drink. Workup was initiated in the emergency room with labs, imaging and EKG. Patient's labs with an marginally elevated WBC count of 13.2. Metabolic panel is unremarkable, the patient has a noted anion gap of 23 and BUN of 24, urinalysis representing dehydration with ketones present. EKG showed normal sinus rhythm 88 beats per minute without any ischemic changes. CT abdomen pelvis was performed that showed a redemonstration of a chronic mass within the body of the uterus distorting the endometrial canal unchanged dating back to 2015. There is hepatomegaly with borderline splenomegaly however there are no acute findings to explain patient's nausea and vomiting. In the emergency room patient was given multiple medications for her nausea including Pepcid, Zofran, Reglan, Benadryl, Protonix, Bentyl, Mylanta, droperidol, Haldol and patient still continued to complain of dry heaving. Unbeknownst to me the ER provider then had discussion with escrow representative about placing patient possibly in ICU for potential DKA, however no VBG had been performed and no lactic acid or beta hydroxybutyrate. More information was requested from ER provider, however she had already discussed with escrow representative without informing me. The VG was performed that shows pH is 7.434. Her beta hydroxybutyrate is 3.49. Patient does appear to be dehydrated, but does not appear to be in DKA. Patient admitted for IV hydration and further monitoring that does not require ICU at this time. Upon my entry into the room patient was having dry heaves and chewing on ice chips. I advised patient that she would not be able to have any more ice chips at this time. Review of Systems Review of Systems: All systems reviewed & are unremarkable except as noted in HPI and below PMFSH Past Medical History Medical History Lower extremity edema Dyspnea on exertion Pneumonia Rheumatoid arthritis (normal spontaneous vaginal delivery) x2 Status post hysteroscopy 2015 and 2020 Asthma Obesity Iron deficiency anemia Elective Anxiety and depression GERD (gastroesophageal reflux disease) HTN (hypertension) High triglycerides HLD (hyperlipidemia) Diabetes Surgical History Surgical History S/P endometrial ablation 2017 Family History Family History Mother Atrial fibrillation History of open heart surgery Family history of cataracts Hypertension Asthma Grandparent Family history of cardiovascular disease Family history of Alzheimer's disease Family history of coronary artery disease Heart murmur Sibling Heart murmur Social History Social History Smoking packs per day: 1 Smoking cigarettes per day: 20.0 Years smoked: 20 Smoking pack-years: 20.00 Smoking status: Former smoker Tobacco type: cigarettes Smoking end date: 02/16/02 Alcohol intake: current Drinks per week: 2 Substance use: former Substance use type: marijuana Do You Feel Safe in your Home?: Yes Lack of Transportation: No Lack of Food: Never True Current Housing: I Have Housing Concerned About Future Housing: No Difficulty Paying Gas/Electric Bills: No Difficulty Paying for Meds: No Currently Unemployed: YES Education: Don't Know Difficulty w/ Childcare or Family Care: No Living arrangements: alone Gender identity (if verbalized by the patient): Female Spiritual care concerns: No Agree to blood products: Yes Meds Home Medications and Allergies Home Medications Medication Instructions Recorded Confirmed Type aspirin 81 mg capsule 81 mg PO DAILY 12/05/20 06/13/24 History rosuvastatin 40 mg tablet 40 mg PO WEEKLY 12/05/20 06/13/24 History albuterol sulfate 2.5 mg/3 mL 2.5 mg inhalation Q6H PRN 03/28/21 06/13/24 History (0.083 %) solution for nebulization Shortness Of Breath Or Wheezing ergocalciferol (vitamin D2) 1,250 1,250 mcg PO WEEKLY 03/28/21 06/13/24 History mcg (50,000 unit) capsule trazodone 50 mg tablet 50 mg PO QHS PRN Insomnia 03/28/21 06/13/24 History hydroxychloroquine 200 mg tablet 200 mg PO .q12hr 09/12/22 06/13/24 History Afrin (oxymetazoline) 1 puff intranasal TID PRN 04/06/23 06/13/24 History Congestion ibuprofen 1,600 mg PO BID PRN Headache 04/06/23 06/13/24 History magnesium oxide 400 mg (241.3 mg 400 mg PO HS 04/06/23 06/13/24 History magnesium) tablet doxycycline hyclate 100 mg tablet 100 mg PO Q12HR #5 tabs 04/14/23 06/13/24 Rx fluticasone propionate 230 2 puff inhalation Q12HRT 30 days 06/03/23 06/13/24 Rx mcg-salmeterol 21 mcg/actuation #60 grams HFA inhaler (Advair HFA) cetirizine 10 mg tablet 10 mg PO DAILY 06/13/24 06/13/24 History cyclobenzaprine 5 mg tablet 5 mg PO TID PRN muscle pain 06/13/24 06/13/24 History dulaglutide 3 mg/0.5 mL 3 mg subcut WEEKLY 06/13/24 06/13/24 History subcutaneous pen injector (Trulicity) escitalopram oxalate 10 mg tablet 10 mg PO DAILY 06/13/24 06/13/24 History famotidine 20 mg tablet 20 mg PO BID PRN acid reflux 06/13/24 06/13/24 History ferrous sulfate 325 mg (65 mg 325 mg PO BID PRN menstrual 06/13/24 06/13/24 History iron) tablet (FeroSul) bleeding fluticasone propionate 50 1 spray intranasal DAILY PRN 06/13/24 06/13/24 History mcg/actuation nasal allergy symptoms spray,suspension hydrocodone 7.5 mg-acetaminophen 1 tablet PO TID PRN pain 06/13/24 06/13/24 History 325 mg tablet insulin lispro 100 unit/mL 50 unit subcut TIDWM 06/13/24 06/13/24 History subcutaneous pen metformin 500 mg tablet,extended 500 mg PO BID 06/13/24 06/13/24 History release 24 hr pregabalin 200 mg capsule 200 mg PO DAILY 06/13/24 06/13/24 History progesterone micronized 100 mg 100 mg PO QPM 06/13/24 06/13/24 History capsule [facility] Verio test strips) blood[facility] Rx Verio Flex Meter) carvedilol 12.5 mg tablet (Coreg) 12.5 mg PO Q12HR #60 tabs 06/17/24 Rx hydrochlorothiazide 25 mg tablet 25 mg PO QAM #30 tabs 06/17/24 Rx insulin glargine 100 unit/mL (3 24 unit (0.24 mL) subcut QPM #15 mL 06/17/24 Rx mL) subcutaneous pen (Lantus Solostar U-100 Insulin) insulin syringe,safety needle 0.5 #1 pkg 06/17/24 Rx mL 31 gauge x 5/16 insulin syringe,safety needle 1 mL #1 pkg 06/17/24 Rx 32 gauge x 5/16 lancets 30 gauge (Oneuch Delica #1 pkg 06/17/24 Rx Plus Lancet) lisinopril 20 mg tablet 40 mg (2 x 20 mg) PO QAM #60 tabs 06/17/24 Rx pen needle, diabetic 32 gauge x #1 pkg 06/17/24 Rx 1/4 pen needle, diabetic 32 gauge x #1 pkg 06/17/24 Rx 5/32 potassium chloride 10 mEq 10 meq PO BIDWM #60 tabs 06/17/24 06/13/24 Rx tablet,extended release Allergies Allergy/AdvReac Type Severity Reaction Status Date / Time atenolol Allergy Intermediate Chest Pain Verified 06/13/24 01:09 Vital Signs Vital Signs - 24 hr 06/20/24 16:24 06/20/24 21:14 06/21/24 01:05 Temperature 97.6 F Pulse Rate 86 99 99 Respiratory Rate 20 14 15 Blood Pressure 184/104 H 190/87 H 205/87 H Pulse Oximetry 100 99 100 Oxygen Delivery Room Air Exam Const: General: no acute distress Other: Obese female patient sitting up in stretcher at this time leaning forward sitting [place] style in no acute distress. She is chewing on ice chips with a cup in 1 hand and having dry heaves with a cup in the other hand and K she actually vomits. HENMT: Mouth: Yes dry mucous membranes Eyes: General: appearance normal, both eyes and all related structures Neck: Neck: supple and no JVD Chest: Other: Nontender Resp: Effort & Inspection: normal respiratory effort Auscultation: clear to auscultation bilaterally Cardio: Rate: regular rate Rhythm: regular rhythm Heart sounds: no gallops, Murmur heart sound present (Grade 2 systolic) and no rubs GI: Inspection: non-distended GI Palp: Yes Soft to palpation and No Tenderness to palpation present (GI) Auscultation: normal bowel sounds Skin: General skin exam: normal color and no rashes or lesions noted Lesions: no lesions noted Rashes: no rashes noted Wounds: no wounds Neuro: General: gait normal Speech: normal speech Motor exam (neuro): 5/5 motor strength present throughout and Normal motor muscle tone present throughout Sensory Exam: normal sensation Extrem: General: normal to inspection, no edema and no pedal edema Psych: Mental Status: mental status grossly normal Affect: Hostile affect present Other: Patient obviously upset that I will not allow her to have ice chips as she rolls her eyes at me H&P: Results Labs Labs: Short CBC 06/20/24 Range/Units 19:13 WBC 13.2 H (4.5-10.0) K/mm3 Hgb 15.4 H (12.0-15.0) g/dL Hct 46.3 (37.0-47.0) % Plt Count 290 D (150-375) k/mm3 BMP 06/20/24 19:13 Sodium 142 Potassium 3.6 Chloride 101 Carbon Dioxide 18 L BUN 24 H D Creatinine 0.70 Glucose 233 H Calcium 10.6 H Cardiac Enzymes 06/21/24 Range/Units 01:03 Troponin I 0.013 (0.000-0.034) ng/mL Liver Function 06/20/24 Range/Units 19:13 Total Bilirubin 0.9 (0.2-1.3) mg/dL AST 29 (14-36) U/L ALT 37 H (6-35) U/L Alkaline Phosphatase 95 (38-126) U/L Albumin 5.5 H (3.5-5.1) g/dL Urine 06/20/24 Range/Units 21:16 Urine Color Yellow (Yellow) Urine Appearance Clear (Clear) Urine pH 6.0 (5.0-9.0) Ur Specific [place] 1.016 (1.001-1.035) Urine Protein 3+ H (Negative) mg/dL Urine Glucose (UA) 1+ H (Negative) mg/dL Assessment and Plan Assessment and plan (1) Intractable nausea and vomiting: Code(s): R11.2 - Nausea with vomiting, unspecified Status: Acute Assessment and Plan: Antiemetics as ordered NPO Continue Protonix 40 mg daily Consider GI consult if unable to nausea and vomiting number control. CT without any acute findings to explain patient's symptoms. IV fluids for hydration Elevated gap and beta hydroxybutyrate however pH is 7.434. She is not acidotic. (2) Dehydration: Code(s): E86.0 - Dehydration Status: Acute Assessment and Plan: See 1. (3) Insulin dependent diabetes mellitus: Status: Chronic Assessment and Plan: Hold any oral hypoglycemic Sliding scale insulin Hypoglycemic protocol Accu-Cheks a.c. and HS Check A1c Not currently in DKA (4) HLD (hyperlipidemia): Code(s): E78.5 - Hyperlipidemia, unspecified Status: Chronic Assessment and Plan: Continue medications once confirmed Currently NPO, admits to heart healthy diet when able to tolerate p.o. intake (5) Diastolic dysfunction: Code(s): I51.89 - Other ill-defined heart diseases Status: Chronic Assessment and Plan: Daily weight Accurate intake and output Patient currently appears euvolemic (6) HTN (hypertension): Code(s): I10 - Essential (primary) hypertension Status: Chronic Assessment and Plan: Currently NPO Holding oral meds IV hydralazine ordered with parameters. Telemetry (7) Anxiety and depression: Code(s): F41.9 - Anxiety disorder, unspecified; F32.9 - Major depressive disorder, single episode, unspecified Status: Chronic Assessment and Plan: Continue home medications when confirmed Quality VTE Prophylaxis VTE prophylaxis: mechanical ordered Hospitalist MIPS Advance Care Plan I have confirmed that the patient's Advanced Care Plan is present, code status is documented, or surrogate decision maker is listed in patient medical record.: Yes Medication Reconciliation I have utilized all available resources to obtain, update and review the patients current medications (includes all prescriptions, OTC, herbals, cannabis, and nutritional supplements).: Yes"
--- NOTE | 2024-06-20 16:55 | ED_ITS ---
HPI - Nausea/Vomiting/Diarrhea General Chief complaint: Nausea/Vomiting/Diarrhea <Hailee Coy PA-C - Last Filed: 06/22/24 09:39> Stated complaint: n/v <Hailee Coy PA-C - Last Filed: 06/22/24 09:39> Time Seen by Provider: 06/20/24 16:56 <Hailee Coy PA-C - Last Filed: 06/22/24 09:39> Focused HPI: This is a 53 year old female that presents to the ER for abdominal pain, nausea and vomiting. Started today. Reports recent admission for heart failure. She was started on new medications. Is unsure if this is maybe contributing. Denies fever, chest pain, shortness of breath. GENERAL: Uncomfortable, well-nourished, and in no acute distress. HEAD: Normocephalic, atraumatic. CHEST: Clear to auscultation. No respiratory distress. HEART: Regular rate and rhythm. NEURO: Alert and oriented x3. Patient screened in triage and initial orders placed. Additional care and disposition to be based upon diagnostic testing and treatment. <Hailee Coy PA-C - Last Filed: 06/22/24 09:39> History of Present Illness HPI Narrative: agree with MSE <Addis Sher MD - Last Filed: 06/21/24 03:41> Related Data Home medications: Home Medications Medication Instructions Recorded Confirmed Last Taken Type aspirin 81 mg capsule 81 mg PO DAILY 12/05/20 06/21/24 06/12/24 History rosuvastatin 40 mg tablet 40 mg PO WEEKLY 12/05/20 06/21/24 06/08/24 History albuterol sulfate 2.5 mg/3 mL 2.5 mg inhalation Q6H PRN 03/28/21 06/21/24 09/21/22 History (0.083 %) solution for nebulization Shortness Of Breath Or Wheezing ergocalciferol (vitamin D2) 1,250 1,250 mcg PO WEEKLY 03/28/21 06/21/24 06/06/24 History mcg (50,000 unit) capsule trazodone 50 mg tablet 50 mg PO QHS PRN Insomnia 03/28/21 06/21/24 06/11/24 History hydroxychloroquine 200 mg tablet 200 mg PO .q12hr 09/12/22 06/21/24 06/12/24 History Afrin (oxymetazoline) 1 puff intranasal TID PRN 04/06/23 06/21/24 06/12/24 History Congestion ibuprofen 1,600 mg PO BID PRN Headache 04/06/23 06/21/24 06/11/24 History magnesium oxide 400 mg (241.3 mg 400 mg PO HS 04/06/23 06/21/24 06/11/24 History magnesium) tablet cetirizine 10 mg tablet 10 mg PO DAILY 06/13/24 06/21/24 06/12/24 History cyclobenzaprine 5 mg tablet 5 mg PO TID PRN muscle pain 06/13/24 06/21/24 06/11/24 History dulaglutide 3 mg/0.5 mL 3 mg subcut WEEKLY 06/13/24 06/21/24 06/06/24 History subcutaneous pen injector (Trulicity) escitalopram oxalate 10 mg tablet 10 mg PO DAILY 06/13/24 06/21/24 06/11/24 History famotidine 20 mg tablet 20 mg PO BID PRN acid reflux 06/13/24 06/21/24 06/11/24 History ferrous sulfate 325 mg (65 mg 325 mg PO BID PRN menstrual 06/13/24 06/21/24 06/10/24 History iron) tablet (FeroSul) bleeding fluticasone propionate 50 1 spray intranasal DAILY PRN 06/13/24 06/21/24 Unknown History mcg/actuation nasal allergy symptoms spray,suspension hydrocodone 7.5 mg-acetaminophen 1 tablet PO TID PRN pain 06/13/24 06/21/24 06/11/24 History 325 mg tablet insulin lispro 100 unit/mL 50 unit subcut TIDWM 06/13/24 06/21/24 06/11/24 History subcutaneous pen metformin 500 mg tablet,extended 500 mg PO BID 06/13/24 06/21/24 06/11/24 History release 24 hr pregabalin 200 mg capsule 200 mg PO DAILY 06/13/24 06/21/24 06/12/24 History progesterone micronized 100 mg 100 mg PO QPM 06/13/24 06/21/24 06/11/24 History capsule <Hailee Coy PA-C - Last Filed: 06/22/24 09:39> Allergies/Adverse reactions: Allergies Allergy/AdvReac Type Severity Reaction Status Date / Time atenolol Allergy Intermediate Chest Pain Verified 06/13/24 01:09 <Hailee Coy PA-C - Last Filed: 06/22/24 09:39> Review of Systems 2 Review of Systems: All systems reviewed & are unremarkable except as noted in HPI and below <Addis Sher MD - Last Filed: 06/21/24 03:41> [facility] Past Medical History Medical History: Medical History Lower extremity edema Dyspnea on exertion Pneumonia Rheumatoid arthritis (normal spontaneous vaginal delivery) x2 Status post hysteroscopy 2015 and 2020 Asthma Obesity Iron deficiency anemia Elective Anxiety and depression GERD (gastroesophageal reflux disease) HTN (hypertension) High triglycerides HLD (hyperlipidemia) Diabetes <Hailee Cyo PA-C - Last Filed: 06/22/24 09:39> Surgical History Surgical History: Surgical History S/P endometrial ablation 2017 <Hailee Coy PA-C - Last Filed: 06/22/24 09:39> Family History Family History: Family History Mother Atrial fibrillation History of open heart surgery Family history of cataracts Hypertension Asthma Grandparent Family history of cardiovascular disease Family history of Alzheimer's disease Family history of coronary artery disease Heart murmur Sibling Heart murmur <Hailee Coy PA-C - Last Filed: 06/22/24 09:39> Social History Social History: Social History Smoking packs per day: 1 Smoking cigarettes per day: 20.0 Years smoked: 20 Smoking pack-years: 20.00 Smoking status: Former smoker Tobacco type: cigarettes Smoking end date: 02/16/02 Alcohol intake: never Drinks per week: 2 Substance use: never Substance use type: marijuana Do You Feel Safe in your Home?: Yes Lack of Transportation: No Lack of Food: Never True Current Housing: I Have Housing Concerned About Future Housing: No Difficulty Paying Gas/Electric Bills: No Difficulty Paying for Meds: No Currently Unemployed: No Education: High School Diploma/GED Difficulty w/ Childcare or Family Care: No Living arrangements: alone Gender identity (if verbalized by the patient): Female Spiritual care concerns: No Agree to blood products: Yes <Hailee Coy PA-C - Last Filed: 06/22/24 09:39> Exam 2 Narrative: EXAMINATION OF ORGAN SYSTEMS/BODY AREAS: Constitutional: Vital signs per nursing GENERAL: Appears uncomfortable, retching HEAD: Normal with no signs of head trauma. EYES: EOMI, conjunctiva normal ENT: Hearing grossly intact LUNGS: Nonlabored breathing. HEART: [Regular rate and rhythm] ABD: [Soft], [nontender to palpation] EXT: Normal range of motion SKIN: [No rashes or lesions.] NEURO: [Alert and oriented x 3. No gross focal sensory or strength deficits.] PSYCH: Normal affect <Addis Sher MD - Last Filed: 06/21/24 03:41> Course Vital Signs Vital signs: Vital Signs Temperature 97.6 F 06/20/24 16:24 Pulse Rate 86 06/20/24 16:24 Respiratory Rate 20 06/20/24 16:24 Blood Pressure 184/104 H 06/20/24 16:24 Pulse Oximetry 100 06/20/24 16:24 Oxygen Delivery Room Air 06/20/24 16:24 Temperature 98.0 F 06/22/24 05:55 Pulse Rate 110 H 06/22/24 05:55 Respiratory Rate 16 06/22/24 05:55 Blood Pressure 168/88 H 06/22/24 05:55 Pulse Oximetry 100 06/22/24 05:55 Oxygen Delivery Room Air 06/21/24 20:00 <Hailee Coy PA-C - Last Filed: 06/22/24 09:39> Vital Signs Temperature 97.6 F 06/20/24 16:24 Pulse Rate 86 06/20/24 16:24 Respiratory Rate 20 06/20/24 16:24 Blood Pressure 184/104 H 06/20/24 16:24 Pulse Oximetry 100 06/20/24 16:24 Oxygen Delivery Room Air 06/20/24 16:24 Temperature 98.0 F 06/22/24 05:55 Pulse Rate 110 H 06/22/24 05:55 Respiratory Rate 16 06/22/24 05:55 Blood Pressure 168/88 H 06/22/24 05:55 Pulse Oximetry 100 06/22/24 05:55 Oxygen Delivery Room Air 06/21/24 20:00 <Addis Sher MD - Last Filed: 06/21/24 03:41> MDM - Nausea/Vomiting/Diarrhea MDM Narrative Medical decision making narrative: Electronic medical record was reviewed. Patient presented to the ED with complaint of [abdominal pain and vomiting]. Vitals [were within acceptable limits]. Physical exam revealed that abdomen is no significant tenderness, the patient actively retching Based on the patient's history and physical exam, my differential includes but is not limited to [gastritis, gastroenteritis, SBO, ACS]. She denies any headache or recent head injury or other cause for nausea. [IV access was established by nursing staff. Patient was given Reglan, Benadryl]. CBC, BMP, lipase, LFTs, bilirubin and alk phos were obtained. Labs were pertinent for slightly elevated white count and anion gap. Patient still persistently nauseous so additional medications given including droperidol on Haldol but still no improvement [Decision was made to obtain a CT-abdomen to evaluate for acute abdominal process. CT-abdomen per radiology interpretation is unremarkable for acute intra-abdominal process, no signs of hydronephrosis, cholecystitis, appendicitis.] On reevaluation, the patient states that they are still nauseous. I did offer admission at this time and she would like to be admitted since she cannot stop throwing up. Nursing staff did bring up possibility of DKA, she does have ketones however VBG without acidosis and I suspect she may be the ketones are from starvation ketosis Discussed with hospitalist for admission <Hailee Coy PA-C - Last Filed: 06/22/24 09:39> Electronic medical record was reviewed. Patient presented to the ED with complaint of [abdominal pain and vomiting]. Vitals [were within acceptable limits]. Physical exam revealed that abdomen is no significant tenderness, the patient actively retching Based on the patient's history and physical exam, my differential includes but is not limited to [gastritis, gastroenteritis, SBO, ACS]. She denies any headache or recent head injury or other cause for nausea. [IV access was established by nursing staff. Patient was given Reglan, Benadryl]. CBC, BMP, lipase, LFTs, bilirubin and alk phos were obtained. Labs were pertinent for slightly elevated white count and anion gap. Patient still persistently nauseous so additional medications given including droperidol on Haldol but still no improvement [Decision was made to obtain a CT-abdomen to evaluate for acute abdominal process. CT-abdomen per radiology interpretation is unremarkable for acute intra-abdominal process, no signs of hydronephrosis, cholecystitis, appendicitis.] On reevaluation, the patient states that they are still nauseous. I did offer admission at this time and she would like to be admitted since she cannot stop throwing up. Nursing staff did bring up possibility of DKA, she does have ketones however CBG without acidosis and I suspect she may be the ketones are from starvation ketosis Discussed with hospitalist for admission <Addis Sher MD - Last Filed: 06/21/24 03:41> Lab Data Result diagrams: 06/21/24 05:35 06/21/24 05:35 <Hailee Coy PA-C - Last Filed: 06/22/24 09:39> Labs: Lab Results 06/20/24 06/20/24 06/20/24 Range/Units 19:13 21:14 21:16 WBC 13.2 H (4.5-10.0) K/mm3 RBC 5.50 H (4.2-5.4) M/mm3 Hgb 15.4 H (12.0-15.0) g/dL Hct 46.3 (37.0-47.0) % MCV 84.2 D (80-100) fl MCH 28.0 (26-34) pg MCHC 33.3 (32-36) g/dl RDW 13.5 (11.5-14.5) % Plt Count 290 D (150-375) k/mm3 MPV 11.0 H (7.4-10.4) fl Immature Gran % (Auto) 0.3 (0-0.5) % Neut % (Auto) 78.7 H (45.5-73.1) % Lymph % (Auto) 14.8 L (18.3-44.2) % [place] % (Auto) 5.9 (2.6-8.5) % Eos % (Auto) 0.0 (0-4.4) % Baso % (Auto) 0.3 (0.2-1.2) % Lymph # (Auto) 1.95 (0.9-3.2) K/mm3 [place] # (Auto) 0.8 H (0.1-0.6) K/mm3 Eos # (Auto) 0.0 (0-0.3) K/mm3 Baso # (Auto) 0.0 (0.0-0.1) K/mm3 Abs Immat Gran (auto) 0.04 H (0.00-0.031) K/mm3 Absolute Neuts (auto) 10.4 H (1.3-6.7) K/mm3 Absolute Nucleated RBC 0.000 (0.0-0.012) K/mm3 Nucleated RBC % 0.0 (0.0-0.2) % Sodium 142 (137-145) mmol/L Potassium 3.6 (3.4-5.0) mmol/L Chloride 101 (98-107) mmol/L Carbon Dioxide 18 L (22-30) mmol/L Anion Gap 23 H (4-12) mmol/L BUN 24 H D (7-17) mg/dL Creatinine 0.70 (0.7-1.0) mg/dL Estim Creat Clear Calc 95 ml/min Estimated GFR > 60 (59 - ) Glucose 233 H (65-110) mg/dL Calcium 10.6 H (8.4-10.2) mg/dL Total Bilirubin 0.9 (0.2-1.3) mg/dL AST 29 (14-36) U/L ALT 37 H (6-35) U/L Alkaline Phosphatase 95 (38-126) U/L Total Protein 10.0 H (6.3-8.2) g/dL Albumin 5.5 H (3.5-5.1) g/dL Lipase 74 (23-300) U/L Urine Color Yellow (Yellow) Urine Appearance Clear (Clear) Urine pH 6.0 (5.0-9.0) Ur Specific [place] 1.016 (1.001-1.035) Urine Protein 3+ H (Negative) mg/dL Urine Glucose (UA) 1+ H (Negative) mg/dL Urine Ketones 2+ H (Negative) mg/dL Ur Blood (Man) 1+ H (Negative) Urine Nitrate Negative (Negative) Urine Bilirubin Negative (Negative) Urine Urobilinogen 0.2 (<2.0) mg/dL Leukocyte Esterase Rfl Negative (Negative) ROLDAN/UL Urine RBC 0-2 (0-2) /hpf Urine WBC 0-5 (0-3) /hpf Ur Squamous Epith Cells None seen (Few) /hpf Urine Bacteria None seen /hpf Urine Casts 0-2 POC Urine HCG, Qual Negative (Negative) <Hailee Coy PA-C - Last Filed: 06/22/24 09:39> Lab Results 06/20/24 06/20/24 06/20/24 Range/Units 19:13 21:14 21:16 WBC 13.2 H (4.5-10.0) K/mm3 RBC 5.50 H (4.2-5.4) M/mm3 Hgb 15.4 H (12.0-15.0) g/dL Hct 46.3 (37.0-47.0) % MCV 84.2 D (80-100) fl MCH 28.0 (26-34) pg MCHC 33.3 (32-36) g/dl RDW 13.5 (11.5-14.5) % Plt Count 290 D (150-375) k/mm3 MPV 11.0 H (7.4-10.4) fl Immature Gran % (Auto) 0.3 (0-0.5) % Neut % (Auto) 78.7 H (45.5-73.1) % Lymph % (Auto) 14.8 L (18.3-44.2) % [place] % (Auto) 5.9 (2.6-8.5) % Eos % (Auto) 0.0 (0-4.4) % Baso % (Auto) 0.3 (0.2-1.2) % Lymph # (Auto) 1.95 (0.9-3.2) K/mm3 [place] # (Auto) 0.8 H (0.1-0.6) K/mm3 Eos # (Auto) 0.0 (0-0.3) K/mm3 Baso # (Auto) 0.0 (0.0-0.1) K/mm3 Abs Immat Gran (auto) 0.04 H (0.00-0.031) K/mm3 Absolute Neuts (auto) 10.4 H (1.3-6.7) K/mm3 Absolute Nucleated RBC 0.000 (0.0-0.012) K/mm3 Nucleated RBC % 0.0 (0.0-0.2) % Sodium 142 (137-145) mmol/L Potassium 3.6 (3.4-5.0) mmol/L Chloride 101 (98-107) mmol/L Carbon Dioxide 18 L (22-30) mmol/L Anion Gap 23 H (4-12) mmol/L BUN 24 H D (7-17) mg/dL Creatinine 0.70 (0.7-1.0) mg/dL Estim Creat Clear Calc 95 ml/min Estimated GFR > 60 (59 - ) Glucose 233 H (65-110) mg/dL Calcium 10.6 H (8.4-10.2) mg/dL Total Bilirubin 0.9 (0.2-1.3) mg/dL AST 29 (14-36) U/L ALT 37 H (6-35) U/L Alkaline Phosphatase 95 (38-126) U/L Total Protein 10.0 H (6.3-8.2) g/dL Albumin 5.5 H (3.5-5.1) g/dL Lipase 74 (23-300) U/L Urine Color Yellow (Yellow) Urine Appearance Clear (Clear) Urine pH 6.0 (5.0-9.0) Ur Specific [place] 1.016 (1.001-1.035) Urine Protein 3+ H (Negative) mg/dL Urine Glucose (UA) 1+ H (Negative) mg/dL Urine Ketones 2+ H (Negative) mg/dL Ur Blood (Man) 1+ H (Negative) Urine Nitrate Negative (Negative) Urine Bilirubin Negative (Negative) Urine Urobilinogen 0.2 (<2.0) mg/dL Leukocyte Esterase Rfl Negative (Negative) ROLDAN/UL Urine RBC 0-2 (0-2) /hpf Urine WBC 0-5 (0-3) /hpf Ur Squamous Epith Cells None seen (Few) /hpf Urine Bacteria None seen /hpf Urine Casts 0-2 POC Urine HCG, Qual Negative (Negative) <Addis Sher MD - Last Filed: 06/21/24 03:41> Imaging Data Radiologist's impression: ITS Impressions Abdomen/Pelvis CT 06/20/24 23:57 IMPRESSION: Redemonstration of a chronic mass within the body of the uterus distorting the endometrial canal, unchanged dating back to 2016. Hepatomegaly with borderline splenomegaly. <Hailee Coy PA-C - Last Filed: 06/22/24 09:39> Critical Care Time Critical Care Time Critical Care Time: Yes <Addis Sher MD - Last Filed: 06/21/24 03:41> Total Critical Care Time: 35 <Hailee Coy PA-C - Last Filed: 06/22/24 09:39> 31 <Addis Sher MD - Last Filed: 06/21/24 03:41> Discharge Plan Discharge Clinical Impression: Nausea and vomiting Qualifiers: Vomiting type: bilious vomiting Qualified Code(s): R11.14 - Bilious vomiting <Hailee Coy PA-C - Last Filed: 06/22/24 09:39> Patient Disposition: Still a Patient <Hailee Coy PA-C - Last Filed: 06/22/24 09:39> Condition: Stable <Hailee Coy PA-C - Last Filed: 06/22/24 09:39>
[2024-06-20] MEDS: ONDANSETRON INJ 4 MG/2 ML VIAL IV PUSH (19:06)
[2024-06-20] MEDS: FAMOTIDINE 20 MG/2 ML VIAL IV PUSH (19:07)
[2024-06-20] MEDS: METOCLOPRAMIDE HCL INJ 10 MG/2 ML VIAL IV PUSH (19:22)
--- OUTSIDE RECORDS SUMMARY | 2024-06-20 19:22 | XMS_ITS | CONTINUITY OF CARE DOCUMENT ---
Author Name lauren aguilar Address Unknown Organization [facility] Address [address] [place] [address] [address] [place] [address] Phone [phone] Care Team Providers Care Fabrication Lead Name Role Phone Rizwan DAVIS, Cary Unavailable [phone] WEIR MARBLE CUTTER OPERATOR, DELORA Unavailable [phone] WEIR MARBLE CUTTER OPERATOR, DELORA Unavailable PROBLEMS Condition Status Date Provider [...] In-person encounter Office Visit Cary Astorga MD [facility] - In-person encounter Office Visit Cary Astorga MD [facility] Chest painTachycardiaAnemiaShortness of breath (SOB)Diabetes mellitusObesityHTN [...] Payer name Policy type / Coverage type [place] red libertarian ID [facility] [id number] ADVANCE DIRECTIVES Name Date DISCUSSED - NO DECISION MADE TREATMENT PLAN Date Name Performer [facility] at [facility] [place], F/up with me Dec 8 at 345p Cary Astorga MD [facility] [place], F/up with me Dec 8 at 345p Cary Astorga MD [facility] [place], F/up with me Dec 8 at 345p Cary Astorga MD [facility] at [facility] [place], F/up with me Dec 8 at 345p Cary Astorga MD [facility] at [facility] [place], F/up with me Jan 8 at 345p Cary Astorga MD [facility] at [facility] [place], F/up with me Dec 8 at 345p [...]
[2024-06-20] MEDS: PANTOPRAZOLE SODIUM IV 40 MG VIAL IV PUSH (19:23)
[2024-06-20] MEDS: diphenhydrAMINE HCl INJ 50 MG/ML VIAL 25 MG IV PUSH (19:23)
[2024-06-20 19:35] LABS: Basophils Percent Auto 0.3 % (0.2-1.2); Hematocrit 46.3 % (37.0-47.0); Hemoglobin 15.4 g/dL (12.0-15.0); Immature Granulocyte Absolute 0.04 K/mm3 (0.00-0.031); Immature Granulocyte Percent A 0.3 % (0-0.5); Lymphocytes Absolute Auto 1.95 K/mm3 (0.9-3.2); Lymphocytes Percent Auto 14.8 % (18.3-44.2); Mean Corpuscular HGB Conc 33.3 g/dl (32-36); Mean Corpuscular Volume 84.2 fl (80-100); Monocytes Absolute Auto 0.8 K/mm3 (0.1-0.6); Monocytes Percent Auto 5.9 % (2.6-8.5); Neutrophils Absolute Auto 10.4 K/mm3 (1.3-6.7); Neutrophils Percent Auto 78.7 % (45.5-73.1); Platelet Count Result 290 k/mm3 (150-375); Red Cell Distribution Width 13.5 % (11.5-14.5); White Blood Count 13.2 K/mm3 (4.5-10.0)
[2024-06-20 19:46] LABS: Alanine Aminotransferase 37 U/L (6-35); Albumin Level 5.5 g/dL (3.5-5.1); Alkaline Phosphatase 95 U/L (38-126); Anion Gap 23 mmol/L (4-12); Aspartate Amino Transferase 29 U/L (14-36); Bilirubin,Total 0.9 mg/dL (0.2-1.3); Blood Urea Nitrogen 24 mg/dL (7-17); Calcium 10.6 mg/dL (8.4-10.2); Carbon Dioxide 18 mmol/L (22-30); Chloride 101 mmol/L (98-107); Estimated CRCL calculation 95 ml/min; Estimated Glomerular Filt Rate > 60; Glucose 233 mg/dL (65-110); Lipase 74 U/L (23-300); Potassium 3.6 mmol/L (3.4-5.0); Sodium 142 mmol/L (137-145)
--- NOTE | 2024-06-20 20:07 | ECG_ITS ---
Test Date: 2024-06-20 20:29:25 Measurements Intervals [place] Rate: 88 P: 51 WI: 174 QRS: 37 QRSD: 88 T: 59 QT: 296 QTc: 359 Interpretive Statements SINUS RHYTHM POSSIBLE LEFT ATRIAL ENLARGEMENT [-0.1mV P WAVE IN V1/V2] NONSPECIFIC T-WAVE ABNORMALITY Compared to ECG 06/12/2024 22:50:51 NO SIGNIFICANT CHANGES Electronically Signed On 06-21-2024 14:19:05 CDT by Marquis Oakley M.D.
[2024-06-20] MEDS: droPERidol 5 MG/2 ML VIAL 2.5 MG IV PUSH (20:29)
[2024-06-20] MEDS: SODIUM CHLORIDE 0.9% IV 100 ML (20:33)
[2024-06-20] MEDS: LACTATED RINGERS 1,000 ML 999 ML IV CONT (21:08)
[2024-06-20 21:14] VITALS: BP 190/87; PULSE 99; RESP 14; O2SAT 99
[2024-06-20 21:15] LABS: BEDSIDEPREGUCG Negative (Negative)
[2024-06-20 21:29] LABS: Add Urine Microscopic? YES; Appearance Urine Clear (Clear); Bacteria Urine None Seen /hpf; Bilirubin Urine Negative (Negative); Blood Urine 1+ (Negative); Color Urine Yellow (Yellow); Glucose Urine UA 1+ mg/dL (Negative); Ketones Urine 2+ mg/dL (Negative); Leukocyte Esterase Ur Negative LEU/UL (Negative); Nitrate Urine Negative (Negative); Non Pathogenic Casts 0-2; Protein Urine 3+ mg/dL (Negative); RBC Urine 0-2 /hpf (0-2); Specific Grav Ur 1.016 (1.001-1.035); Squamous Epithelial Cell Urine None Seen /hpf (Few); Urobilinogen Urine 0.2 mg/dL (<2.0); WBC Urine 0-5 /hpf (0-3)
[2024-06-20] MEDS: HALOPERIDOL LACTATE 5 MG/ML VIAL IV PUSH (22:06)
[2024-06-20] MEDS: DICYCLOMINE HCL INJ 20 MG/2 ML VIAL IM (22:36)
[2024-06-20] MEDS: MAG HYDROX/AL HYDROX/SIMETH 30 ML UDC PO (22:44)
[2024-06-21] VITALS (9 sets, daily range): BP systolic 152–205; BP diastolic 71–89; PULSE 94–108; RESP 14–20; TEMP 36.8–37.1; O2SAT 97–100; BMI 35.9
[2024-06-21] MEDS: BELLADONNA ALK/PHENOB ELIX 10 ML, MAG HYDROX/ALUMINUM HYD/SIMETH 30 ML, LIDOCAINE 2% VI... PO (00:36)
[2024-06-21 01:11] LABS: Glucose Point of Care 231 mg/dl (65-105)
[2024-06-21] MEDS: hydrALAZINE HCL 20 MG/ML VIAL IV PUSH (01:23)
[2024-06-21 01:45] LABS: Troponin I 0.013 ng/mL (0.000-0.034)
--- NOTE | 2024-06-21 01:58 | P.HP_ITS ---
H&P: HPI History of Present Illness Date/Time: 06/21/24 01:58 Chief Complaint: Nausea/vomiting Narrative: This 63-year-old female patient with history of heart failure, rheumatoid arthritis, asthma, BC, anxiety, depression, GERD, hypertension, hyperlipidemia and type 2 diabetes mellitus comes to the emergency room today with acute onset of nausea and vomiting at 5:30 a.m. this morning. Patient was recently di scharged from this hospital on June 17 after being admitted and treated for heart failure exacerbation. She stated at that time no recent medication changes made, (review of EMR shows that medications were changed to hydrochlorothiazide from other blood pressure medications), and she does not know if that had anything to do with her symptoms today states she woke up acutely with nausea vomiting. She denies any fevers. She denies any diarrhea. She denies any known ill contacts but notes she was just recently hospitalized may have gotten something there. She denies any chest pain, dyspnea. Patient is a nonsmoker and denies any use drugs including marijuana. She has an occasional social drink. Workup was initiated in the emergency room with labs, imaging and EKG. Patient's labs with an marginally elevated WBC count of 13.2. Metabolic panel is unremarkable, the patient has a noted anion gap of 23 and BUN of 24, urinalysis representing dehydration with ketones present. EKG showed normal sinus rhythm 88 beats per minute without any ischemic changes. CT abdomen pelvis was performed that showed a redemonstration of a chronic mass within the body of the uterus distorting the endometrial canal unchanged dating back to 2015. There is hepatomegaly with borderline splenomegaly however there are no acute findings to explain patient's nausea and vomiting. In the emergency room patient was given multiple medications for her nausea including Pepcid, Zofran, Reglan, Benadryl, Protonix, Bentyl, Mylanta, droperidol, Haldol and patient still continued to complain of dry heaving. Unbeknownst to me the ER provider then had discussion with template cutter about placing patient possibly in ICU for potential DKA, however no VBG had been performed and no lactic acid or beta hydroxybutyrate. More information was requested from ER provider, however she had already discussed with template cutter without informing me. The VG was performed that shows pH is 7.434. Her beta hydroxybutyrate is 3.49. Patient does appear to be dehydrated, but does not appear to be in DKA. Patient admitted for IV hydration and further monitoring that does not require ICU at this time. Upon my entry into the room patient was having dry heaves and chewing on ice chips. I advised patient that she would not be able to have any more ice chips at this time. Review of Systems Review of Systems: All systems reviewed & are unremarkable except as noted in HPI and below PMFSH Past Medical History Medical History Lower extremity edema Dyspnea on exertion Pneumonia Rheumatoid arthritis (normal spontaneous vaginal delivery) x2 Status post hysteroscopy 2015 and 2020 Asthma Obesity Iron deficiency anemia Elective Anxiety and depression GERD (gastroesophageal reflux disease) HTN (hypertension) High triglycerides HLD (hyperlipidemia) Diabetes Surgical History Surgical History S/P endometrial ablation 2017 Family History Family History Mother Atrial fibrillation History of open heart surgery Family history of cataracts Hypertension Asthma Grandparent Family history of cardiovascular disease Family history of Alzheimer's disease Family history of coronary artery disease Heart murmur Sibling Heart murmur Social History Social History Smoking packs per day: 1 Smoking cigarettes per day: 20.0 Years smoked: 20 Smoking pack-years: 20.00 Smoking status: Former smoker Tobacco type: cigarettes Smoking end date: 02/16/02 Alcohol intake: current Drinks per week: 2 Substance use: former Substance use type: marijuana Do You Feel Safe in your Home?: Yes Lack of Transportation: No Lack of Food: Never True Current Housing: I Have Housing Concerned About Future Housing: No Difficulty Paying Gas/Electric Bills: No Difficulty Paying for Meds: No Currently Unemployed: YES Education: Don't Know Difficulty w/ Childcare or Family Care: No Living arrangements: alone Gender identity (if verbalized by the patient): Female Spiritual care concerns: No Agree to blood products: Yes Meds Home Medications and Allergies Home Medications Medication Instructions Recorded Confirmed Type aspirin 81 mg capsule 81 mg PO DAILY 12/05/20 06/13/24 History rosuvastatin 40 mg tablet 40 mg PO WEEKLY 12/05/20 06/13/24 History albuterol sulfate 2.5 mg/3 mL 2.5 mg inhalation Q6H PRN 03/28/21 06/13/24 History (0.083 %) solution for nebulization Shortness Of Breath Or Wheezing ergocalciferol (vitamin D2) 1,250 1,250 mcg PO WEEKLY 03/28/21 06/13/24 History mcg (50,000 unit) capsule trazodone 50 mg tablet 50 mg PO QHS PRN Insomnia 03/28/21 06/13/24 History hydroxychloroquine 200 mg tablet 200 mg PO .q12hr 09/12/22 06/13/24 History Afrin (oxymetazoline) 1 puff intranasal TID PRN 04/06/23 06/13/24 History Congestion ibuprofen 1,600 mg PO BID PRN Headache 04/06/23 06/13/24 History magnesium oxide 400 mg (241.3 mg 400 mg PO HS 04/06/23 06/13/24 History magnesium) tablet doxycycline hyclate 100 mg tablet 100 mg PO Q12HR #5 tabs 04/14/23 06/13/24 Rx fluticasone propionate 230 2 puff inhalation Q12HRT 30 days 06/03/23 06/13/24 Rx mcg-salmeterol 21 mcg/actuation #60 grams HFA inhaler (Advair HFA) cetirizine 10 mg tablet 10 mg PO DAILY 06/13/24 06/13/24 History cyclobenzaprine 5 mg tablet 5 mg PO TID PRN muscle pain 06/13/24 06/13/24 History dulaglutide 3 mg/0.5 mL 3 mg subcut WEEKLY 06/13/24 06/13/24 History subcutaneous pen injector (Trulicity) escitalopram oxalate 10 mg tablet 10 mg PO DAILY 06/13/24 06/13/24 History famotidine 20 mg tablet 20 mg PO BID PRN acid reflux 06/13/24 06/13/24 History ferrous sulfate 325 mg (65 mg 325 mg PO BID PRN menstrual 06/13/24 06/13/24 History iron) tablet (FeroSul) bleeding fluticasone propionate 50 1 spray intranasal DAILY PRN 06/13/24 06/13/24 History mcg/actuation nasal allergy symptoms spray,suspension hydrocodone 7.5 mg-acetaminophen 1 tablet PO TID PRN pain 06/13/24 06/13/24 History 325 mg tablet insulin lispro 100 unit/mL 50 unit subcut TIDWM 06/13/24 06/13/24 History subcutaneous pen metformin 500 mg tablet,extended 500 mg PO BID 06/13/24 06/13/24 History release 24 hr pregabalin 200 mg capsule 200 mg PO DAILY 06/13/24 06/13/24 History progesterone micronized 100 mg 100 mg PO QPM 06/13/24 06/13/24 History capsule blood sugar diagnostic (Topspin Mediauch #1 pkg 06/17/24 Rx Verio test strips) blood-glucose meter (Topspin MediaTouch #1 pkg 06/17/24 Rx Verio Flex Meter) carvedilol 12.5 mg tablet (Coreg) 12.5 mg PO Q12HR #60 tabs 06/17/24 Rx hydrochlorothiazide 25 mg tablet 25 mg PO QAM #30 tabs 06/17/24 Rx insulin glargine 100 unit/mL (3 24 unit (0.24 mL) subcut QPM #15 mL 06/17/24 Rx mL) subcutaneous pen (Lantus Solostar U-100 Insulin) insulin syringe,safety needle 0.5 #1 pkg 06/17/24 Rx mL 31 gauge x 5/16 insulin syringe,safety needle 1 mL #1 pkg 06/17/24 Rx 32 gauge x 5/16 lancets 30 gauge (OneTouch Delica #1 pkg 06/17/24 Rx Plus Lancet) lisinopril 20 mg tablet 40 mg (2 x 20 mg) PO QAM #60 tabs 06/17/24 Rx pen needle, diabetic 32 gauge x #1 pkg 06/17/24 Rx 1/4 pen needle, diabetic 32 gauge x #1 pkg 06/17/24 Rx /32 potassium chloride 10 mEq 10 meq PO BIDWM #60 tabs 06/17/24 06/13/24 Rx tablet,extended release Allergies Allergy/AdvReac Type Severity Reaction Status Date / Time atenolol Allergy Intermediate Chest Pain Verified 06/13/24 01:09 Vital Signs Vital Signs - 24 hr 06/20/24 16:24 06/20/24 21:14 06/21/24 01:05 Temperature 97.6 F Pulse Rate 86 99 99 Respiratory Rate 20 14 15 Blood Pressure 184/104 H 190/87 H 205/87 H Pulse Oximetry 100 99 100 Oxygen Delivery Room Air Exam Const: General: no acute distress Other: Obese female patient sitting up in stretcher at this time leaning forward sitting style in no acute distress. She is chewing on ice chips with a cup in 1 hand and having dry heaves with a cup in the other hand and K she actually vomits. HENMT: Mouth: Yes dry mucous membranes Eyes: General: appearance normal, both eyes and all related structures Neck: Neck: supple and no JVD Chest: Other: Nontender Resp: Effort & Inspection: normal respiratory effort Auscultation: clear to auscultation bilaterally Cardio: Rate: regular rate Rhythm: regular rhythm Heart sounds: no gallops, Murmur heart sound present (Grade 2 systolic) and no rubs GI: Inspection: non-distended GI Palp: Yes Soft to palpation and No Tenderness to palpation present (GI) Auscultation: normal bowel sounds Skin: General skin exam: normal color and no rashes or lesions noted Lesions: no lesions noted Rashes: no rashes noted Wounds: no wounds Neuro: General: gait normal Speech: normal speech Motor exam (neuro): 5/5 motor strength present throughout and Normal motor muscle tone present throughout Sensory Exam: normal sensation Extrem: General: normal to inspection, no edema and no pedal edema Psych: Mental Status: mental status grossly normal Affect: Hostile affect present Other: Patient obviously upset that I will not allow her to have ice chips as she rolls her eyes at me H&P: Results Labs Labs: Short CBC 06/20/24 Range/Units 19:13 WBC 13.2 H (4.5-10.0) K/mm3 Hgb 15.4 H (12.0-15.0) g/dL Hct 46.3 (37.0-47.0) % Plt Count 290 D (150-375) k/mm3 BMP 06/20/24 19:13 Sodium 142 Potassium 3.6 Chloride 101 Carbon Dioxide 18 L BUN 24 H D Creatinine 0.70 Glucose 233 H Calcium 10.6 H Cardiac Enzymes 06/21/24 Range/Units 01:03 Troponin I 0.013 (0.000-0.034) ng/mL Liver Function 06/20/24 Range/Units 19:13 Total Bilirubin 0.9 (0.2-1.3) mg/dL AST 29 (14-36) U/L ALT 37 H (6-35) U/L Alkaline Phosphatase 95 (38-126) U/L Albumin 5.5 H (3.5-5.1) g/dL Urine 06/20/24 Range/Units 21:16 Urine Color Yellow (Yellow) Urine Appearance Clear (Clear) Urine pH 6.0 (5.0-9.0) Ur Specific Morrow 1.016 (1.001-1.035) Urine Protein 3+ H (Negative) mg/dL Urine Glucose (UA) 1+ H (Negative) mg/dL Assessment and Plan Assessment and plan (1) Intractable nausea and vomiting: Code(s): R11.2 - Nausea with vomiting, unspecified Status: Acute Assessment and Plan: * Antiemetics as ordered * NPO * Continue Protonix 40 mg daily * Consider GI consult if unable to nausea and vomiting number control. * CT without any acute findings to explain patient's symptoms. * IV fluids for hydration * Elevated gap and beta hydroxybutyrate however pH is 7.434. She is not acidotic. (2) Dehydration: Code(s): E86.0 - Dehydration Status: Acute Assessment and Plan: * See 1. (3) Insulin dependent diabetes mellitus: Status: Chronic Assessment and Plan: * Hold any oral hypoglycemic * Sliding scale insulin * Hypoglycemic protocol * Accu-Cheks a.c. and HS * Check A1c * Not currently in DKA (4) HLD (hyperlipidemia): Code(s): E78.5 - Hyperlipidemia, unspecified Status: Chronic Assessment and Plan: * Continue medications once confirmed * Currently NPO, admits to heart healthy diet when able to tolerate p.o. intake (5) Diastolic dysfunction: Code(s): I51.89 - Other ill-defined heart diseases Status: Chronic Assessment and Plan: * Daily weight * Accurate intake and output * Patient currently appears euvolemic (6) HTN (hypertension): Code(s): I10 - Essential (primary) hypertension Status: Chronic Assessment and Plan: * Currently NPO Holding oral meds * IV hydralazine ordered with parameters. * Telemetry (7) Anxiety and depression: Code(s): F41.9 - Anxiety disorder, unspecified; F32.9 - Major depressive disorder, single episode, unspecified Status: Chronic Assessment and Plan: * Continue home medications when confirmed Quality VTE Prophylaxis VTE prophylaxis: mechanical ordered Hospitalist MIPS Advance Care Plan I have confirmed that the patient's Advanced Care Plan is present, code status is documented, or surrogate decision maker is listed in patient medical record.: Yes Medication Reconciliation I have utilized all available resources to obtain, update and review the patients current medications (includes all prescriptions, OTC, herbals, cannabis, and nutritional supplements).: Yes
[2024-06-21 02:43] LABS: Fractional Inspired Oxygen 21 %; HCO3 VBG 17.4 mEq/l (24.0-30.0); PO2 VBG 60.8 mmHg (35.0-45.0)
[2024-06-21 03:09] LABS: Beta-Hydroxybutyrate/Acetoacetate 3.49 mmol/L (0.02-0.27)
[2024-06-21 03:10] LABS: pH VBG 7.434 (7.300-7.400)
[2024-06-21 03:11] LABS: Device ROOM AIR; PCO2 VBG 26.6 mmHg (42.0-48.0)
[2024-06-21 03:28] LABS: Hemoglobin A1C 7.2 % (<5.7)
--- NOTE | 2024-06-21 04:17 | ADMGEN ---
This patient, Regina Howell, was admitted to Medical Room 341-01. Patient/family oriented to hospital policies and general routines including ID bracelet, bed and alarms, visiting hours, pain management, procedures, bathroom and other care routines, personal items, smoking policy, room service/diet, and visiting hours. Information on how to activate the Rapid Response Team has been discussed. Patient/Family are encouraged to report perceived risks to care and to ask questions if they do not understand what they are told or what they should do.
[2024-06-21] MEDS: SODIUM CHLORIDE 0.9% IV 1,000 ML 100 ML IV CONT ×2 (04:28→17:19)
[2024-06-21] MEDS: METOCLOPRAMIDE HCL INJ 10 MG/2 ML VIAL IV PUSH ×3 (04:51→17:20)
[2024-06-21 05:56] LABS: Basophils Percent Auto 0.3 % (0.2-1.2); Hematocrit 45.5 % (37.0-47.0); Immature Granulocyte Absolute 0.09 K/mm3 (0.00-0.031); Immature Granulocyte Percent A 0.6 % (0-0.5); Lymphocytes Absolute Auto 1.86 K/mm3 (0.9-3.2); Lymphocytes Percent Auto 12.1 % (18.3-44.2); Mean Corpuscular Hemoglobin 27.9 pg (26-34); Mean Corpuscular Volume 84.7 fl (80-100); Mean Platelet Volume 10.5 fl (7.4-10.4); Monocytes Absolute Auto 1.2 K/mm3 (0.1-0.6); Monocytes Percent Auto 7.5 % (2.6-8.5); Neutrophils Absolute Auto 12.2 K/mm3 (1.3-6.7); Neutrophils Percent Auto 79.5 % (45.5-73.1); Platelet Count Result 297 k/mm3 (150-375); Red Blood Count 5.37 M/mm3 (4.2-5.4); Red Cell Distribution Width 13.9 % (11.5-14.5); White Blood Count 15.3 K/mm3 (4.5-10.0)
[2024-06-21 06:07] LABS: Alanine Aminotransferase 35 U/L (6-35); Albumin Level 5.3 g/dL (3.5-5.1); Alkaline Phosphatase 105 U/L (38-126); Anion Gap 22 mmol/L (4-12); Aspartate Amino Transferase 25 U/L (14-36); Blood Urea Nitrogen 21 mg/dL (7-17); Calcium 10.5 mg/dL (8.4-10.2); Carbon Dioxide 18 mmol/L (22-30); Chloride 102 mmol/L (98-107); Estimated CRCL calculation 85 ml/min; Estimated Glomerular Filt Rate > 60; Glucose 264 mg/dL (65-110); Lactic Acid Reflex 1.5 mmol/L (0.7-2.0); Magnesium 1.8 mg/dL (1.6-2.3); Sodium 142 mmol/L (137-145)
[2024-06-21] MEDS: ONDANSETRON INJ 4 MG/2 ML VIAL IV PUSH ×3 (06:35→21:17)
--- NOTE | 2024-06-21 07:40 | P.PNIM_ITS ---
Progress Note: A&P Assessment and Plan (1) Intractable nausea and vomiting: Code(s): R11.2 - Nausea with vomiting, unspecified Status: Acute Assessment and Plan: * Antiemetics as ordered * NPO * Continue Protonix 40 mg daily * CT without any acute findings to explain patient's symptoms. * IV fluids for hydration * Elevated gap and beta hydroxybutyrate however pH is 7.434. She is not acidotic. * GI consult entered today (06/21) due to intractable N/V (2) Dehydration: Code(s): E86.0 - Dehydration Status: Acute Assessment and Plan: * K on 06/21 AM 3.0, down from 3.6 in the ED. Repleted with K IV. * Continue to trend AM labs (3) Insulin dependent diabetes mellitus: Status: Chronic Assessment and Plan: * Continue to hold oral hypoglycemic meds * Sliding scale insulin * Hypoglycemic protocol * Accu-Cheks a.c. and HS * Check A1c * Not currently in DKA (4) HLD (hyperlipidemia): Code(s): E78.5 - Hyperlipidemia, unspecified Status: Chronic Assessment and Plan: * Continue medications once confirmed and can tolerate * Currently NPO, admits to heart healthy diet when able to tolerate p.o. intake (5) Diastolic dysfunction: Code(s): I51.89 - Other ill-defined heart diseases Status: Chronic Assessment and Plan: * Daily weight * Accurate intake and output * Patient currently appears euvolemic * Pt denies CP/SOB/cough (6) HTN (hypertension): Code(s): I10 - Essential (primary) hypertension Status: Chronic Assessment and Plan: * Currently NPO, Holding oral meds * IV hydralazine ordered with parameters. * Telemetry - 103bpm (7) Anxiety and depression: Code(s): F41.9 - Anxiety disorder, unspecified; F32.9 - Major depressive disorder, single episode, unspecified Status: Chronic Assessment and Plan: * Continue home medications when confirmed and can tolerate Plan -Continue with IVF and antiemetics -Pending GI consult for intractable N/V Time Spent With Patient Time with patient: less than 15 minutes Subjective Date/time seen: 06/21/24 0850 Interval history: Pt admitted for N/V that started yesterday (06/20) at 0530. Pt reports being admitted recently for several days for CHF. She was switched to HCTZ and stated that the pharmacist told her to not take it on an empty stomach, which she did at 0400 yesterday. Pt still experiencing N/V today, but no emesis d/t no PO intake. Pt c/o of mild RLQ pain today in which she thinks is from retching. Pt denies diarrhea and any other sx. VSS other than slightly tachycardic at 103bpm probably due to dehydration. AM labs today 06/21 yielded a decrease in her K from 3.6 to 3.0, repleted today via IV K. Also bump in her WBC from the ED to this AM 13.2 to 15.3. Pt also has been HTNive d/t not being able to tolerate PO (she is on coreg, hctz, and lisinopril at home), continue with hyral IV. Plan to continue IVF, antiemetics, and place GI consult today for intractable N/V. Review of Systems Review of Systems: All systems reviewed & are unremarkable except as noted in HPI and below Gastrointestinal: Gastrointestinal: Reports abdominal pain (mild RLQ), Denies diarrhea, Reports nausea and Reports vomiting Exam Const: Other: Ill appearing, obese. HENMT: Face/Nose/Sinus: Normal nares present Mouth: Yes dry mucous membranes Eyes: General: appearance normal, both eyes and all related structures Sclera: sclerae normal Neck: Neck: supple and no JVD Resp: Effort & Inspection: normal respiratory effort Auscultation: clear to auscultation bilaterally Cardio: Rate: regular rate Rhythm: regular rhythm GI: Inspection: non-distended Auscultation: normal bowel sounds Other: Mild TTP to RLQ, no guarding Skin: General skin exam: normal color and no rashes or lesions noted Wounds: no wounds Neuro: Speech: normal speech Motor exam (neuro): Normal motor muscle tone present throughout Extrem: General: normal to inspection Psych: Mental Status: mental status grossly normal Affect: normal affect Objective Data Vital Signs Vital Signs: Vital Signs - 24 hr 06/20/24 16:24 06/20/24 21:14 06/21/24 01:05 Temperature 97.6 F Pulse Rate 86 99 99 Respiratory Rate 20 14 15 Blood Pressure 184/104 H 190/87 H 205/87 H Pulse Oximetry 100 99 100 Oxygen Delivery Room Air 06/21/24 02:29 06/21/24 04:03 Temperature Pulse Rate 101 H 98 Respiratory Rate 14 14 Blood Pressure 189/71 H 185/79 H Pulse Oximetry 100 99 Oxygen Delivery Intake/Output Intake/Output: Intake & Output 06/18/24 06/19/24 06/20/24 06/21/24 23:59 23:59 23:59 23:59 Intake Total 1100 Balance 1100 Meds/Results Medications: Active Medications Generic Name Dose Route Start Last Admin Trade Name Freq PRN Reason Stop Dose Admin Dextrose 12.5 gm 06/21/24 02:12 Dextrose 50% 25 Gm/50 Ml Syringe IV PUSH PRN PRN Hypoglycemia Protocol Glucagon 1 mg 06/21/24 02:12 Glucagon For Inj 1 Mg Vial IM PRN PRN Hypoglycemia Protocol Glucose 15 gm 06/21/24 02:12 Glucose Oral Gel 15 Gm Of Glucse In 37.5 Gm Tube PO PRN PRN Hypoglycemia Protocol Hydralazine HCl 10 mg 06/21/24 02:12 Hydralazine Hcl 20 Mg/Ml Vial IV PUSH Q8H PRN Blood Pressure - High Sodium Chloride 1,000 mls @ 100 mls/hr 06/21/24 02:10 06/21/24 04:28 Normal Saline Iv IV CONT 100 mls/hr .Q10H JUDITH Administration Dextrose 1,000 mls @ 100 mls/hr 06/21/24 02:12 Dextrose 5% 1,000 Ml IVPB PRN PRN Hypoglycemia Protocol Insulin Aspart 2 - 5 units 06/21/24 08:00 Insulin Aspart (*Bkc) 100 Units/Ml SUB-Q TIDWM JUDITH Protocol Insulin Aspart 1 - 2 units 06/21/24 21:00 Insulin Aspart (*Bkc) 100 Units/Ml SUB-Q HS JUDITH Protocol Metoclopramide HCl 10 mg 06/21/24 06:00 06/21/24 04:51 Metoclopramide Hcl Inj 10 Mg/2 Ml Vial IV PUSH 10 mg Q6HR JUDITH Administration Ondansetron HCl 4 mg 06/21/24 02:08 06/21/24 06:35 Ondansetron Inj 4 Mg/2 Ml Vial IV PUSH 4 mg Q6HR PRN Administration Nausea And Vomiting Pantoprazole Sodium 40 mg 06/21/24 09:00 Pantoprazole Sodium Iv 40 Mg Vial IV PUSH DAILY JUDITH Radiology Results: ITS Impressions Abdomen/Pelvis CT 06/20/24 23:57 IMPRESSION: Redemonstration of a chronic mass within the body of the uterus distorting the endometrial canal, unchanged dating back to 2015. Hepatomegaly with borderline splenomegaly. Labs Labs: Laboratory Results - last 24 hr 06/20/24 06/20/24 06/20/24 19:13 21:14 21:16 WBC 13.2 H RBC 5.50 H Hgb 15.4 H Hct 46.3 MCV 84.2 D MCH 28.0 MCHC 33.3 RDW 13.5 Plt Count 290 D MPV 11.0 H Immature Gran % (Auto) 0.3 Neut % (Auto) 78.7 H Lymph % (Auto) 14.8 L [place] % (Auto) 5.9 Eos % (Auto) 0.0 Baso % (Auto) 0.3 Lymph # (Auto) 1.95 [place] # (Auto) 0.8 H Eos # (Auto) 0.0 Baso # (Auto) 0.0 Abs Immat Gran (auto) 0.04 H Absolute Neuts (auto) 10.4 H Absolute Nucleated RBC 0.000 Nucleated RBC % 0.0 VBG pH VBG pCO2 VBG pO2 VBG HCO3 O2 Delivery Device O2 Liters/Min FiO2 Sodium 142 Potassium 3.6 Chloride 101 Carbon Dioxide 18 L Anion Gap 23 H BUN 24 H D Creatinine 0.70 Estim Creat Clear Calc 95 Estimated GFR > 60 Glucose 233 H POC Capillary Glucose Hemoglobin A1c Lactic Acid Calcium 10.6 H Magnesium Total Bilirubin 0.9 AST 29 ALT 37 H Alkaline Phosphatase 95 Troponin I Total Protein 10.0 H Albumin 5.5 H Lipase 74 Beta-Hydroxybutyrate/Acetoacetate Urine Color Yellow Urine Appearance Clear Urine pH 6.0 Ur Specific [place] 1.016 Urine Protein 3+ H Urine Glucose (UA) 1+ H Urine Ketones 2+ H Ur Blood (Man) 1+ H Urine Nitrate Negative Urine Bilirubin Negative Urine Urobilinogen 0.2 Leukocyte Esterase Rfl Negative Urine RBC 0-2 Urine WBC 0-5 Ur Squamous Epith Cells None seen Urine Bacteria None seen Urine Casts 0-2 POC Urine HCG, Qual Negative 06/21/24 06/21/24 06/21/24 01:03 01:08 02:41 WBC RBC Hgb Hct MCV MCH MCHC RDW Plt Count MPV Immature Gran % (Auto) Neut % (Auto) Lymph % (Auto) [place] % (Auto) Eos % (Auto) Baso % (Auto) Lymph # (Auto) [place] # (Auto) Eos # (Auto) Baso # (Auto) Abs Immat Gran (auto) Absolute Neuts (auto) Absolute Nucleated RBC Nucleated RBC % VBG pH VBG pCO2 VBG pO2 VBG HCO3 O2 Delivery Device O2 Liters/Min FiO2 Sodium Potassium Chloride Carbon Dioxide Anion Gap BUN Creatinine Estim Creat Clear Calc Estimated GFR Glucose POC Capillary Glucose 231 H Hemoglobin A1c 7.2 H Lactic Acid Calcium Magnesium Total Bilirubin AST ALT Alkaline Phosphatase Troponin I 0.013 Total Protein Albumin Lipase Beta-Hydroxybutyrate/Acetoacetate 3.49 H Urine Color Urine Appearance Urine pH Ur Specific [place] Urine Protein Urine Glucose (UA) Urine Ketones Ur Blood (Man) Urine Nitrate Urine Bilirubin Urine Urobilinogen Leukocyte Esterase Rfl Urine RBC Urine WBC Ur Squamous Epith Cells Urine Bacteria Urine Casts POC Urine HCG, Qual 06/21/24 06/21/24 02:43 05:35 WBC 15.3 H RBC 5.37 Hgb 15.0 Hct 45.5 MCV 84.7 MCH 27.9 MCHC 33.0 RDW 13.9 Plt Count 297 MPV 10.5 H Immature Gran % (Auto) 0.6 H Neut % (Auto) 79.5 H Lymph % (Auto) 12.1 L [place] % (Auto) 7.5 Eos % (Auto) 0.0 Baso % (Auto) 0.3 Lymph # (Auto) 1.86 [place] # (Auto) 1.2 H Eos # (Auto) 0.0 Baso # (Auto) 0.0 Abs Immat Gran (auto) 0.09 H Absolute Neuts (auto) 12.2 H Absolute Nucleated RBC 0.000 Nucleated RBC % 0.0 VBG pH 7.434 H* VBG pCO2 26.6 L* VBG pO2 60.8 H VBG HCO3 17.4 L O2 Delivery Device Room air O2 Liters/Min Not Reportable FiO2 21 Sodium 142 Potassium 3.0 L Chloride 102 Carbon Dioxide 18 L Anion Gap 22 H BUN 21 H Creatinine 0.76 Estim Creat Clear Calc 85 Estimated GFR > 60 Glucose 264 H POC Capillary Glucose Hemoglobin A1c Lactic Acid 1.5 Calcium 10.5 H Magnesium 1.8 Total Bilirubin 1.0 AST 25 ALT 35 Alkaline Phosphatase 105 Troponin I Total Protein 10.0 H Albumin 5.3 H Lipase Beta-Hydroxybutyrate/Acetoacetate Urine Color Urine Appearance Urine pH Ur Specific [place] Urine Protein Urine Glucose (UA) Urine Ketones Ur Blood (Man) Urine Nitrate Urine Bilirubin Urine Urobilinogen Leukocyte Esterase Rfl Urine RBC Urine WBC Ur Squamous Epith Cells Urine Bacteria Urine Casts POC Urine HCG, Qual Quality VTE Prophylaxis VTE prophylaxis: mechanical ordered
[2024-06-21] MEDS: PANTOPRAZOLE SODIUM IV 40 MG VIAL IV PUSH (07:52)
[2024-06-21] MEDS: hydrALAZINE HCL 20 MG/ML VIAL 10 MG IV PUSH (07:52)
[2024-06-21 08:20] LABS: Glucose Point of Care 267 mg/dl (65-105)
[2024-06-21] MEDS: POTASSIUM CHLORIDE INJ 40 MEQ in SODIUM CHLORIDE 0.9% IV 500 ML 130 MEQ IVPB (09:00)
[2024-06-21] MEDS: INSULIN ASPART (*BKC) 100 UNITS/ML SUB-Q ×4 (09:34→21:19)
[2024-06-21 11:55] LABS: Glucose Point of Care 233 mg/dl (65-105)
--- NOTE | 2024-06-21 12:19 | P.CONGI_ITS ---
Assessment and Plan Assessment and plan (1) Nausea and vomiting: Qualifiers: Vomiting type: bilious vomiting Qualified Code(s): R11.14 - Bilious vomiting Code(s): R11.2 - Nausea with vomiting, unspecified Status: Acute (2) GERD (gastroesophageal reflux disease): Qualifiers: Esophagitis presence: esophagitis presence not specified Qualified Code(s): K21.9 - Gastro-esophageal reflux disease without esophagitis Code(s): K21.9 - Gastro-esophageal reflux disease without esophagitis Status: Acute (3) Diabetes: Qualifiers: Diabetes mellitus type: type 1 Diabetes mellitus complication status: w [facility] complication Qualified Code(s): E10.9 - Type 1 diabetes mellitus without complications Code(s): E11.9 - Type 2 diabetes mellitus without complications Status: Acute (4) Epigastric pain: Code(s): R10.13 - Epigastric pain Status: Acute Plan 1. Nausea and vomiting/GERD/epigastric pain/diabetes: Last EGD 12/25/2018 was normal. At time of last EGD the patient was also complaining of nausea and vomiting. Gastric emptying study in 2019 was normal. Patient was recently admitted at [facility] and discharged on June 17 and was started on lisinopril, hydrochlorothiazide and Coreg. She had been on lisinopril and hydrochlorothiazide in the past but this was her 1st time taking Coreg. She states that she did well with the medication over the weekend but then when she took her medications early Thursday morning her round 3:30 a.m. she started having nausea and vomiting around 5:00 a.m. which has persisted. During today's visit the patient complained of a dull epigastric pain that she describes as an ache or nauseated feeling. Last time she vomited was in the emergency room but she is still having nausea and dry heaves with only slight improvement on antiemetics and Reglan. Spot glucose > 260 and A1C 7.2. Troponin normal. ABG showed pH 7.434, pCO2 26.6, PO2 60. DDX: Motility disorder versus elevated blood sugar versus medication induced versus inadequate acid suppression versus peptic ulcer disease. * primary care team to continue addressing elevated blood sugars * Continue Reglan 10 mg q.6 hours * Continue pantoprazole 40 mg daily and p.r.n. Zofran * symptom etiology may be multifactorial including recently started Coreg, may consider starting Coreg at a lower dose and titrating up as tolerated if cleared by cardiology * care with NSAIDs or aspirin containing products * if symptoms persist may consider repeat EGD Thank you very much for allowing me to share in the care of this very nice patient. This report may have been done utilizing a voice recognition system. Attempts have been made to correct errors. However, there may be uncorrected grammatical, spelling, and recognition errors present. GI Consult Note Consult date/time: 06/21/24 12:19 Reason for consult: nausea and vomiting HPI: Regina Howell is a 53 year old female with past medical surgical history RA, asthma, ID 8, anxiety, depression, GERD, HTN, HLD, diabetes, and newly diagnosis CHF. She presented to the emergency room today with complaints of abdominal pain, nausea and vomiting. GI has been consulted for nausea and vomiting. Patient was discharged from [place] on June 17 after being admitted for heart failure. Upon discharge the patient was started Coreg, hydrochlorothiazide and lisinopril. Patient states that she took her new medications throughout the weekend without any problems but on Thursday at 3:30 a.m. she took her medications with a banana and then around 5:00 a.m. she started having acute onset of nausea and vomiting. Patient has been having nausea and vomiting since that time. She complains of epigastric pain that she describes is an aching/nauseated feeling. Last episode of vomiting occurred in the emergency room and her nausea has improved slightly but not resolved since her admission. She is still having dry heaves. She denies bloating, odynophagia, dysphagia, reflux, regurgitation, early satiety, weight loss, appetite loss. She is having daily bowel movements are formed and non Urgent. Denies diarrhea, constipation, hematochezia, or melena. She is on aspirin 81 mg daily but denies any other NSAID or anticoagulant use. She is a nonsmoker nondrinker denies marijuana use. Family history negative for CRC or IBD. ENDOSCOPY HISTORY: EGD: 12/25/[address] Yarbrough for nausea and vomiting Findings: The esophagus was examined no abnormalities were seen The GE junction was located 40 cm from the incisors The stomach was examined and no abnormalities were seen The duodenum was examined and no abnormalities were seen COLONOSCOPY: per patient she had a negative Cologuard last year but has never had a colonoscopy LABS AND STOOL STUDIES: Labs 06/21/2024: WBCs 15, HGB 15, HCT 46, MCV 85, platelets 297 Sodium 142, potassium 3.0, BUN 21, creatinine 0.76, GFR > 60 Hemoglobin A1c 7.2 and spot glucose 264. Calcium 10.5, total bilirubin 1.0, AST 25, ALT 35, alkaline phosphatase 105, albumin 5.3 IMAGING: CT abd/pelvis w/contrast 06/20/2024: IMPRESSION: Redemonstration of a chronic mass within the body of the uterus distorting the endometrial canal, unchanged dating back to 2015. Hepatomegaly with borderline splenomegaly Gastric emptying study 12/27/2018: normal gastric emptying study Abdominal ultrasound 12/24/2018: IMPRESSION: 1. Diffuse hepatic steatosis. Review of Systems 2 Constitutional: Constitutional: Reports as per HPI ENT: Reports as per HPI Cardiovascular: Cardiovascular: Reports as per HPI, Denies chest pain and Denies dyspnea Respiratory: Respiratory: Denies cough and Denies dyspnea Gastrointestinal: Gastrointestinal: Reports as per HPI Musculoskeletal: Musculoskeletal: Reports as per HPI Integumentary/Breasts: Skin/Breast: Reports as per HPI Psychiatric: Psychiatric: Reports as per HPI Endocrine: Endocrine: Reports no additional endocrine complaints Hematologic/Lymphatic: Hematologic/Lymphatic: Reports no additional hematologic/lymphatic complaints [facility] Past Medical History Medical History Lower extremity edema Dyspnea on exertion Pneumonia Rheumatoid arthritis (normal spontaneous vaginal delivery) x2 Status post hysteroscopy 2015 and 2020 Asthma Obesity Iron deficiency anemia Elective Anxiety and depression GERD (gastroesophageal reflux disease) HTN (hypertension) High triglycerides HLD (hyperlipidemia) Diabetes Surgical History Surgical History S/P endometrial ablation 2017 Family History Family History Mother Atrial fibrillation History of open heart surgery Family history of cataracts Hypertension Asthma Grandparent Family history of cardiovascular disease Family history of Alzheimer's disease Family history of coronary artery disease Heart murmur Sibling Heart murmur Social History Social History Smoking packs per day: 1 Smoking cigarettes per day: 20.0 Years smoked: 20 Smoking pack-years: 20.00 Smoking status: Former smoker Tobacco type: cigarettes Smoking end date: 02/16/02 Alcohol intake: never Drinks per week: 2 Substance use: never Substance use type: marijuana Do You Feel Safe in your Home?: Yes Lack of Transportation: No Lack of Food: Never True Current Housing: I Have Housing Concerned About Future Housing: No Difficulty Paying Gas/Electric Bills: No Difficulty Paying for Meds: No Currently Unemployed: No Education: High School Diploma/GED Difficulty w/ Childcare or Family Care: No Living arrangements: alone Gender identity (if verbalized by the patient): Female Spiritual care concerns: No Agree to blood products: Yes Meds Home Medications and Allergies Home Medications Medication Instructions Recorded Confirmed Type aspirin 81 mg capsule 81 mg PO DAILY 12/05/20 06/21/24 History rosuvastatin 40 mg tablet 40 mg PO WEEKLY 12/05/20 06/21/24 History albuterol sulfate 2.5 mg/3 mL 2.5 mg inhalation Q6H PRN 03/28/21 06/21/24 History (0.083 %) solution for nebulization Shortness Of Breath Or Wheezing ergocalciferol (vitamin D2) 1,250 1,250 mcg PO WEEKLY 03/28/21 06/21/24 History mcg (50,000 unit) capsule trazodone 50 mg tablet 50 mg PO QHS PRN Insomnia 03/28/21 06/21/24 History hydroxychloroquine 200 mg tablet 200 mg PO .q12hr 09/12/22 06/21/24 History Afrin (oxymetazoline) 1 puff intranasal TID PRN 04/06/23 06/21/24 History Congestion ibuprofen 1,600 mg PO BID PRN Headache 04/06/23 06/21/24 History magnesium oxide 400 mg (241.3 mg 400 mg PO HS 04/06/23 06/21/24 History magnesium) tablet doxycycline hyclate 100 mg tablet 100 mg PO Q12HR #5 tabs 04/14/23 06/21/24 Rx fluticasone propionate 230 2 puff inhalation Q12HRT 30 days 06/03/23 06/21/24 Rx mcg-salmeterol 21 mcg/actuation #60 grams HFA inhaler (Advair HFA) cetirizine 10 mg tablet 10 mg PO DAILY 06/13/24 06/21/24 History cyclobenzaprine 5 mg tablet 5 mg PO TID PRN muscle pain 06/13/24 06/21/24 History dulaglutide 3 mg/0.5 mL 3 mg subcut WEEKLY 06/13/24 06/21/24 History subcutaneous pen injector (Trulicity) escitalopram oxalate 10 mg tablet 10 mg PO DAILY 06/13/24 06/21/24 History famotidine 20 mg tablet 20 mg PO BID PRN acid reflux 06/13/24 06/21/24 History ferrous sulfate 325 mg (65 mg 325 mg PO BID PRN menstrual 06/13/24 06/21/24 History iron) tablet (FeroSul) bleeding fluticasone propionate 50 1 spray intranasal DAILY PRN 06/13/24 06/21/24 History mcg/actuation nasal allergy symptoms spray,suspension hydrocodone 7.5 mg-acetaminophen 1 tablet PO TID PRN pain 06/13/24 06/21/24 History 325 mg tablet insulin lispro 100 unit/mL 50 unit subcut TIDWM 06/13/24 06/21/24 History subcutaneous pen metformin 500 mg tablet,extended 500 mg PO BID 06/13/24 06/21/24 History release 24 hr pregabalin 200 mg capsule 200 mg PO DAILY 06/13/24 06/21/24 History progesterone micronized 100 mg 100 mg PO QPM 06/13/24 06/21/24 History capsule blood sugar diagnostic (OneTouch #1 pkg 06/17/24 06/21/24 Rx Verio test strips) blood-glucose meter (OneTouch #1 pkg 06/17/24 06/21/24 Rx Verio Flex Meter) carvedilol 12.5 mg tablet (Coreg) 12.5 mg PO Q12HR #60 tabs 06/17/24 06/21/24 Rx hydrochlorothiazide 25 mg tablet 25 mg PO QAM #30 tabs 06/17/24 06/21/24 Rx insulin glargine 100 unit/mL (3 24 unit (0.24 mL) subcut QPM #15 mL 06/17/24 06/21/24 Rx mL) subcutaneous pen (Lantus Solostar U-100 Insulin) insulin syringe,safety needle 0.5 #1 pkg 06/17/24 06/21/24 Rx mL 31 gauge x 5/16 insulin syringe,safety needle 1 mL #1 pkg 06/17/24 06/21/24 Rx 32 gauge x 5/16 lancets 30 gauge (OneTouch Delica #1 pkg 06/17/24 06/21/24 Rx Plus Lancet) lisinopril 20 mg tablet 40 mg (2 x 20 mg) PO QAM #60 tabs 06/17/24 06/21/24 Rx pen needle, diabetic 32 gauge x #1 pkg 06/17/24 06/21/24 Rx 1/4 pen needle, diabetic 32 gauge x #1 pkg 06/17/24 06/21/24 Rx /32 potassium chloride 10 mEq 10 meq PO BIDWM #60 tabs 06/17/24 06/21/24 Rx tablet,extended release Allergies Allergy/AdvReac Type Severity Reaction Status Date / Time atenolol Allergy Intermediate Chest Pain Verified 06/13/24 01:09 Vital Signs Vital Signs - 24 hr 06/20/24 16:24 06/20/24 21:14 06/21/24 01:05 Temperature 97.6 F Pulse Rate 86 99 99 Respiratory Rate 20 14 15 Blood Pressure 184/104 H 190/87 H 205/87 H Pulse Oximetry 100 99 100 Oxygen Delivery Room Air 06/21/24 02:29 06/21/24 04:03 06/21/24 06:55 Temperature 98.4 F Pulse Rate 101 H 98 94 Respiratory Rate 14 14 20 Blood Pressure 189/71 H 185/79 H 177/89 H Pulse Oximetry 100 99 98 Oxygen Delivery Exam 2 Const: General: cooperative, healthy appearing, comfortable, no acute distress, well developed and obese Orientation/consciousness: oriented to person, oriented to place, oriented to time and patient oriented x3 HENMT: Head: normal to inspection, normocephalic and atraumatic Mouth: Yes Normal oral and palatal mucosa present and Yes moist mucous membranes Eyes: General: appearance normal, both eyes and all related structures C onjunctivae: conjunctivae normal Sclera: sclerae normal Pupils: Equal, round and reactive pupils present Neck: Neck: normal visual inspection Chest: Chest palpation & inspection: normal inspection of the chest Resp: Effort & Inspection: normal respiratory effort and able to speak in complete sentences Auscultation: clear to auscultation bilaterally Cardio: Jugular venous distension: no JVD Rate: regular rate Rhythm: r egular rhythm Heart sounds: S1 normal heart sound present and S2 normal heart sound present GI: Inspection: normal to inspection GI Palp: Yes Soft to palpation and Yes No hepatosplenomegaly present Auscultation: normal bowel sounds Rectal Exam: deferred Skin: General skin exam: normal color and no rashes or lesions noted Neuro: General: oriented to person, oriented to place, oriented to time and patient oriented x3 Cranial nerves: Yes Equal, round and reactive pupils present Speech: normal speech Extrem: General: normal to inspection and no clubbing, cyanosis or edema Psych: Appearance: grossly normal and well kempt Affect: normal affect Results Labs 06/21/24 05:35 06/21/24 05:35 Labs: Short CBC 06/20/24 06/21/24 Range/Units 19:13 05:35 WBC 13.2 H 15.3 H (4.5-10.0) K/mm3 Hgb 15.4 H 15.0 (12.0-15.0) g/dL Hct 46.3 45.5 (37.0-47.0) % Plt Count 290 D 297 (150-375) k/mm3 BMP 06/20/24 06/21/24 19:13 05:35 Sodium 142 142 Potassium 3.6 3.0 L Chloride 101 102 Carbon Dioxide 18 L 18 L BUN 24 H D 21 H Creatinine 0.70 0.76 Glucose 233 H 264 H Calcium 10.6 H 10.5 H Cardiac Enzymes 06/21/24 Range/Units 01:03 Troponin I 0.013 (0.000-0.034) ng/mL Liver Function 06/20/24 06/21/24 Range/Units 19:13 05:35 Total Bilirubin 0.9 1.0 (0.2-1.3) mg/dL AST 29 25 (14-36) U/L ALT 37 H 35 (6-35) U/L Alkaline Phosphatase 95 105 (38-126) U/L Albumin 5.5 H 5.3 H (3.5-5.1) g/dL Urine 06/20/24 Range/Units 21:16 Urine Color Yellow (Yellow) Urine Appearance Clear (Clear) Urine pH 6.0 (5.0-9.0) Ur Specific [facility] 1.016 (1.001-1.035) Urine Protein 3+ H (Negative) mg/dL Urine Glucose (UA) 1+ H (Negative) mg/dL
[2024-06-21] MEDS: KCL 20 MEQ/SW 100 ML 100 ML 50 MEQ IVPB (13:32)
[2024-06-21 17:18] LABS: Glucose Point of Care 213 mg/dl (65-105)
[2024-06-21 20:11] LABS: Glucose Point of Care 359 mg/dl (65-105)
[2024-06-22] VITALS (10 sets, daily range): BP systolic 141–168; BP diastolic 71–88; PULSE 98–118; RESP 16–18; TEMP 36.6–36.8; O2SAT 98–100
[2024-06-22] MEDS: METOCLOPRAMIDE HCL INJ 10 MG/2 ML VIAL IV PUSH ×2 (00:01→06:27)
[2024-06-22] MEDS: SODIUM CHLORIDE 0.9% IV 1,000 ML 100 ML IV CONT ×3 (03:18→20:34)
[2024-06-22] MEDS: ONDANSETRON INJ 4 MG/2 ML VIAL IV PUSH ×2 (03:18→17:43)
--- NOTE | 2024-06-22 08:12 | P.PNIM_ITS ---
Progress Note: A&P Assessment and Plan (1) Intractable nausea and vomiting: Code(s): R11.2 - Nausea with vomiting, unspecified Status: Acute Assessment and Plan: * CT Abd/pelvis without acute findings * Antiemetics, IVFs * NPO * Continue Protonix 40 mg daily * Elevated gap and beta hydroxybutyrate however pH is 7.434. She is not acidotic. * GI consult pending d/t intractable N/V (2) Dehydration: Code(s): E86.0 - Dehydration Status: Acute Assessment and Plan: * In ED: K=3.0, likely secondary to vomiting. Will supp as needed * Continue to trend AM labs (3) Hypokalemia: Code(s): E87.6 - Hypokalemia Status: Acute Assessment and Plan: * In ED: 3.6 * On 06/22, K 2.7 * Likely secondary to continuous Vomiting and associated nausea. * IV K ordered on 06/21 * Will supplement with additional 40meq on 06/22 * Continue to monitor and supplement as needed (4) Insulin dependent diabetes mellitus: Status: Chronic Assessment and Plan: * Continue to hold oral hypoglycemic meds * Sliding scale insulin * Hypoglycemic protocol * Accu-Cheks a.c. and HS * A1c 7.2% (5) HLD (hyperlipidemia): Code(s): E78.5 - Hyperlipidemia, unspecified Status: Chronic Assessment and Plan: * Continue medications once confirmed and can tolerate * Currently NPO, admits to heart healthy diet when able to tolerate p.o. intake (6) Diastolic dysfunction: Code(s): I51.89 - Other ill-defined heart diseases Status: Chronic Assessment and Plan: * Daily weight * Accurate intake and output * Patient currently appears euvolemic * Pt denies CP/SOB/cough (7) HTN (hypertension): Code(s): I10 - Essential (primary) hypertension Status: Chronic Assessment and Plan: * Currently NPO, Holding oral meds * IV hydralazine ordered with parameters. * Telemetry - 110bpm (8) Anxiety and depression: Code(s): F41.9 - Anxiety disorder, unspecified; F32.9 - Major depressive disorder, single episode, unspecified Status: Chronic Assessment and Plan: * Continue home medications when confirmed and can tolerate Plan -Continue with IVF and antiemetics -Pending GI consult for intractable N/V Subjective Date/time seen: 06/22/24 08:12 Interval history: 63-year-old female patient with history of heart failure, rheumatoid arthritis, asthma, BC, anxiety, depression, GERD, hypertension, hyperlipidemia and type 2 diabetes mellitus comes to the emergency room today with acute onset of nausea and vomiting. 06/22/2024 Pt sitting comfortably in bed at time of exam. Denies any CP, SOB, abdominal pain, vomiting or diarrhea. Still endorses some nausea despite metoclopramide, will switch to Compazine. Still awaiting GI consult. Vitals and physical exam benign. Potassium low at 2.7, down from 3.0. Will continue daily IV K replacement and will add one time dose of 40meq oral K. Otherwise patient is stable. Review of Systems Review of Systems: All systems reviewed & are unremarkable except as noted in HPI and below Gastrointestinal: Gastrointestinal: Reports abdominal pain (mild RLQ), Denies diarrhea, Reports nausea and Reports vomiting Exam Const: General: no acute distress Other: Ill appearing, obese. HENMT: Face/Nose/Sinus: Normal nares present Mouth: Yes dry mucous membranes Eyes: General: appearance normal, both eyes and all related structures Sclera: sclerae normal Neck: Neck: supple and no JVD Chest: Other: Nontender Resp: Effort & Inspection: normal respiratory effort Auscultation: clear to auscultation bilaterally Cardio: Rate: regular rate Rhythm: regular rhythm Heart sounds: no gallops, Murmur heart sound present (Grade 2 systolic) and no rubs GI: Inspection: non-distended Auscultation: normal bowel sounds Other: Mild TTP to RLQ, no guarding Skin: General skin exam: normal color, no rashes or lesions noted, No lesion and No rashes Lesions: no lesions noted Rashes: no rashes noted Wounds: no wounds Neuro: General: gait normal Speech: normal speech Motor exam (neuro): 5/5 motor strength present throughout and Normal motor muscle tone present throughout Sensory Exam: normal sensation Extrem: General: normal to inspection, no edema and no pedal edema Psych: Mental Status: mental status grossly normal Affect: normal affect and Hostile affect present Other: Patient obviously upset that I will not allow her to have ice chips as she rolls her eyes at me Objective Data Vital Signs Vital Signs: Vital Signs - 24 hr 06/21/24 12:00 06/21/24 14:02 06/21/24 16:00 Temperature 98.8 F Pulse Rate 103 H 108 H 107 H Respiratory Rate 19 Blood Pressure 152/82 H Pulse Oximetry 97 Oxygen Delivery 06/21/24 20:00 06/21/24 20:11 06/22/24 00:00 Temperature 98.2 F Pulse Rate 107 H 103 H Respiratory Rate 19 Blood Pressure 156/89 H Pulse Oximetry 100 Oxygen Delivery Room Air 06/22/24 04:00 06/22/24 05:55 Temperature 98.0 F Pulse Rate 110 H 110 H Respiratory Rate 16 Blood Pressure 168/88 H Pulse Oximetry 100 Oxygen Delivery Intake/Output Intake/Output: Intake & Output 06/19/24 06/20/24 06/21/24 06/22/24 23:59 23:59 23:59 23:59 Intake Total 1100 1145 998.3 Output Total 2 Balance 1100 1143 998.3 Meds/Results Medications: Active Medications Generic Name Dose Route Start Last Admin Trade Name Freq PRN Reason Stop Dose Admin Dextrose 12.5 gm 06/21/24 02:12 Dextrose 50% 25 Gm/50 Ml Syringe IV PUSH PRN PRN Hypoglycemia Protocol Glucagon 1 mg 06/21/24 02:12 Glucagon For Inj 1 Mg Vial IM PRN PRN Hypoglycemia Protocol Glucose 15 gm 06/21/24 02:12 Glucose Oral Gel 15 Gm Of Glucse In 37.5 Gm Tube PO PRN PRN Hypoglycemia Protocol Hydralazine HCl 10 mg 06/21/24 02:12 06/21/24 07:52 Hydralazine Hcl 20 Mg/Ml Vial IV PUSH 10 mg Q8H PRN Administration Blood Pressure - High Sodium Chloride 1,000 mls @ 100 mls/hr 06/21/24 02:10 06/22/24 03:18 Normal Saline Iv IV CONT 100 mls/hr .Q10H JUDITH Administration Dextrose 1,000 mls @ 100 mls/hr 06/21/24 02:12 Dextrose 5% 1,000 Ml IVPB PRN PRN Hypoglycemia Protocol Insulin Aspart 2 - 5 units 06/21/24 08:00 06/21/24 17:20 Insulin Aspart (*Bkc) 100 Units/Ml SUB-Q 2 units TIDWM JUDITH Administration Protocol Insulin Aspart 1 - 2 units 06/21/24 21:00 06/21/24 21:19 Insulin Aspart (*Bkc) 100 Units/Ml SUB-Q 2 units HS JUDITH Administration Protocol Metoclopramide HCl 10 mg 06/21/24 06:00 06/22/24 06:27 Metoclopramide Hcl Inj 10 Mg/2 Ml Vial IV PUSH 10 mg Q6HR JUDITH Administration Ondansetron HCl 4 mg 06/21/24 02:08 06/22/24 03:18 Ondansetron Inj 4 Mg/2 Ml Vial IV PUSH 4 mg Q6HR PRN Administration Nausea And Vomiting Pantoprazole Sodium 40 mg 06/21/24 09:00 06/21/24 07:52 Pantoprazole Sodium Iv 40 Mg Vial IV PUSH 40 mg DAILY JUDITH Administration Radiology Results: ITS Impressions Abdomen/Pelvis CT 06/20/24 23:57 IMPRESSION: Redemonstration of a chronic mass within the body of the uterus distorting the endometrial canal, unchanged dating back to 2015. Hepatomegaly with borderline splenomegaly. Labs Labs: Laboratory Results - last 24 hr 06/21/24 06/21/24 06/21/24 08:16 11:47 17:12 POC Capillary Glucose 267 H 233 H 213 H 06/21/24 20:05 POC Capillary Glucose 359 H Quality VTE Prophylaxis VTE prophylaxis: mechanical ordered
[2024-06-22 08:48] LABS: Glucose Point of Care 297 mg/dl (65-105)
[2024-06-22] MEDS: PANTOPRAZOLE SODIUM IV 40 MG VIAL IV PUSH (09:44)
[2024-06-22] MEDS: INSULIN ASPART (*BKC) 100 UNITS/ML SUB-Q ×4 (09:45→20:37)
[2024-06-22 10:06] LABS: Basophils Percent Auto 0.3 % (0.2-1.2); Hematocrit 45.1 % (37.0-47.0); Hemoglobin 15.1 g/dL (12.0-15.0); Immature Granulocyte Absolute 0.06 K/mm3 (0.00-0.031); Immature Granulocyte Percent A 0.4 % (0-0.5); Lymphocytes Absolute Auto 2.73 K/mm3 (0.9-3.2); Lymphocytes Percent Auto 18.3 % (18.3-44.2); Mean Corpuscular HGB Conc 33.5 g/dl (32-36); Mean Corpuscular Hemoglobin 28.1 pg (26-34); Mean Platelet Volume 10.8 fl (7.4-10.4); Monocytes Absolute Auto 1.2 K/mm3 (0.1-0.6); Monocytes Percent Auto 8.2 % (2.6-8.5); Neutrophils Absolute Auto 10.9 K/mm3 (1.3-6.7); Neutrophils Percent Auto 72.8 % (45.5-73.1); Platelet Count Result 330 k/mm3 (150-375); Red Blood Count 5.37 M/mm3 (4.2-5.4); Red Cell Distribution Width 13.8 % (11.5-14.5); White Blood Count 14.9 K/mm3 (4.5-10.0)
[2024-06-22 10:26] LABS: Alanine Aminotransferase 32 U/L (6-35); Albumin Level 4.8 g/dL (3.5-5.1); Alkaline Phosphatase 100 U/L (38-126); Anion Gap 15 mmol/L (4-12); Aspartate Amino Transferase 29 U/L (14-36); Blood Urea Nitrogen 11 mg/dL (7-17); Carbon Dioxide 21 mmol/L (22-30); Chloride 101 mmol/L (98-107); Estimated CRCL calculation 119 ml/min; Estimated Glomerular Filt Rate > 60; Glucose 340 mg/dL (65-110); Potassium 2.7 mmol/L (3.4-5.0); Sodium 137 mmol/L (137-145)
[2024-06-22 12:19] LABS: Glucose Point of Care 256 mg/dl (65-105)
[2024-06-22] MEDS: POTASSIUM CHLORIDE 20 MEQ ER TABLET 40 MEQ PO (13:32)
[2024-06-22] MEDS: PROCHLORPERAZINE MALEATE 5 MG TABLET PO (13:33)
[2024-06-22 17:13] LABS: Glucose Point of Care 248 mg/dl (65-105)
--- NOTE | 2024-06-22 17:42 | P.PNGI_ITS ---
Progress Note: A&P Assessment and Plan (1) Intractable nausea and vomiting: Code(s): R11.2 - Nausea with vomiting, unspecified Status: Acute Assessment and Plan: will do egd tomorrow to assess if esophagitis, pud, etc still nauseous another possibility is dysmotility (h/o DM) (2) Epigastric pain: Code(s): R10.13 - Epigastric pain Status: Acute Assessment and Plan: medical treatment (3) GERD (gastroesophageal reflux disease): Qualifiers: Esophagitis presence: esophagitis presence not specified Qualified Code(s): K21.9 - Gastro-esophageal reflux disease without esophagitis Code(s): K21.9 - Gastro-esophageal reflux disease without esophagitis Status: Acute (4) Anxiety and depression: Code(s): F41.9 - Anxiety disorder, unspecified; F32.9 - Major depressive disorder, single episode, unspecified Status: Chronic (5) Diabetes: Qualifiers: Diabetes mellitus type: type 1 Diabetes mellitus complication status: without complication Qualified Code(s): E10.9 - Type 1 diabetes mellitus without complications Code(s): E11.9 - Type 2 diabetes mellitus without complications Status: Acute Subjective Date/time seen: 06/22/24 17:42 Interval history: still with nausea and poor oral intake, not significantly improved Review of Systems Review of Systems: All systems reviewed & are unremarkable except as noted in HPI and below Exam Const: General: no acute distress HENMT: Face/Nose/Sinus: Normal nares present Mouth: Yes dry mucous membranes Eyes: General: appearance normal, both eyes and all related structures Sclera: sclerae normal Neck: Neck: supple Chest: Other: Nontender Resp: Effort & Inspection: normal respiratory effort Auscultation: clear to auscultation bilaterally Cardio: Rate: regular rate Rhythm: regular rhythm GI: Inspection: non-distended Auscultation: normal bowel sounds Skin: General skin exam: normal color and no rashes or lesions noted Neuro: General: gait normal Speech: normal speech Motor exam (neuro): 5/5 motor strength present throughout and Normal motor muscle tone present throughout Sensory Exam: normal sensation Extrem: General: normal to inspection and no pedal edema Psych: Mental Status: mental status grossly normal Affect: normal affect Objective Data Vital Signs Vital Signs: Vital Signs - 24 hr 06/21/24 20:00 06/21/24 20:11 06/22/24 00:00 Temperature 98.2 F Pulse Rate 107 H 103 H Respiratory Rate 19 Blood Pressure 156/89 H Pulse Oximetry 100 Oxygen Delivery Room Air 06/22/24 04:00 06/22/24 05:55 06/22/24 09:45 Temperature 98.0 F Pulse Rate 110 H 110 H Respiratory Rate 16 Blood Pressure 168/88 H Pulse Oximetry 100 100 Oxygen Delivery Room Air 06/22/24 14:00 Temperature 97.8 F Pulse Rate 108 H Respiratory Rate 18 Blood Pressure 155/88 H Pulse Oximetry 98 Oxygen Delivery Intake/Output Intake/Output: Intake & Output 06/19/24 06/20/24 06/21/24 06/22/24 23:59 23:59 23:59 23:59 Intake Total 1100 1145 2118.3 Output Total 2 Balance 1100 1143 2118.3 Meds/Results Medications: Active Medications Generic Name Dose Route Start Last Admin Trade Name Freq PRN Reason Stop Dose Admin Dextrose 12.5 gm 06/21/24 02:12 Dextrose 50% 25 Gm/50 Ml Syringe IV PUSH PRN PRN Hypoglycemia Protocol Glucagon 1 mg 06/21/24 02:12 Glucagon For Inj 1 Mg Vial IM PRN PRN Hypoglycemia Protocol Glucose 15 gm 06/21/24 02:12 Glucose Oral Gel 15 Gm Of Glucse In 37.5 Gm Tube PO PRN PRN Hypoglycemia Protocol Hydralazine HCl 10 mg 06/21/24 02:12 06/21/24 07:52 Hydralazine Hcl 20 Mg/Ml Vial IV PUSH 10 mg Q8H PRN Administration Blood Pressure - High Sodium Chloride 1,000 mls @ 100 mls/hr 06/21/24 02:10 06/22/24 13:57 Normal Saline Iv IV CONT 100 mls/hr .Q10H JUDITH Administration Dextrose 1,000 mls @ 100 mls/hr 06/21/24 02:12 Dextrose 5% 1,000 Ml IVPB PRN PRN Hypoglycemia Protocol Insulin Aspart 2 - 5 units 06/21/24 08:00 06/22/24 17:40 Insulin Aspart (*Bkc) 100 Units/Ml SUB-Q 2 units TIDWM JUDITH Administration Protocol Insulin Aspart 1 - 2 units 06/21/24 21:00 06/21/24 21:19 Insulin Aspart (*Bkc) 100 Units/Ml SUB-Q 2 units HS JUDITH Administration Protocol Ondansetron HCl 4 mg 06/21/24 02:08 06/22/24 03:18 Ondansetron Inj 4 Mg/2 Ml Vial IV PUSH 4 mg Q6HR PRN Administration Nausea And Vomiting Pantoprazole Sodium 40 mg 06/21/24 09:00 06/22/24 09:44 Pantoprazole Sodium Iv 40 Mg Vial IV PUSH 40 mg DAILY JUDITH Administration Prochlorperazine Maleate 5 mg 06/22/24 13:00 06/22/24 13:33 Prochlorperazine Maleate 5 Mg Tablet PO 5 mg Q6H PRN Administration Nausea And Vomiting Radiology Results: ITS Impressions Abdomen/Pelvis CT 06/20/24 23:57 IMPRESSION: Redemonstration of a chronic mass within the body of the uterus distorting the endometrial canal, unchanged dating back to 2015. Hepatomegaly with borderline splenomegaly. Labs Labs: Laboratory Results - last 24 hr 06/21/24 06/22/24 06/22/24 20:05 08:42 09:35 WBC 14.9 H RBC 5.37 Hgb 15.1 H Hct 45.1 MCV 84.0 MCH 28.1 MCHC 33.5 RDW 13.8 Plt Count 330 MPV 10.8 H Immature Gran % (Auto) 0.4 Neut % (Auto) 72.8 Lymph % (Auto) 18.3 [place] % (Auto) 8.2 Eos % (Auto) 0.0 Baso % (Auto) 0.3 Lymph # (Auto) 2.73 [place] # (Auto) 1.2 H Eos # (Auto) 0.0 Baso # (Auto) 0.0 Abs Immat Gran (auto) 0.06 H Absolute Neuts (auto) 10.9 H Absolute Nucleated RBC 0.000 Nucleated RBC % 0.0 Sodium 137 Potassium 2.7 L* Chloride 101 Carbon Dioxide 21 L Anion Gap 15 H BUN 11 D Creatinine 0.54 L Estim Creat Clear Calc 119 Estimated GFR > 60 Glucose 340 H POC Capillary Glucose 359 H 297 H Calcium 10.0 Total Bilirubin 1.0 AST 29 ALT 32 Alkaline Phosphatase 100 Total Protein 8.0 Albumin 4.8 06/22/24 06/22/24 06/22/24 12:07 15:55 17:09 WBC RBC Hgb Hct MCV MCH MCHC RDW Plt Count MPV Immature Gran % (Auto) Neut % (Auto) Lymph % (Auto) [place] % (Auto) Eos % (Auto) Baso % (Auto) Lymph # (Auto) [place] # (Auto) Eos # (Auto) Baso # (Auto) Abs Immat Gran (auto) Absolute Neuts (auto) Absolute Nucleated RBC Nucleated RBC % Sodium Potassium 3.0 L Chloride Carbon Dioxide Anion Gap BUN Creatinine Estim Creat Clear Calc Estimated GFR Glucose POC Capillary Glucose 256 H 248 H Calcium Total Bilirubin AST ALT Alkaline Phosphatase Total Protein Albumin
[2024-06-22 19:53] LABS: Glucose Point of Care 222 mg/dl (65-105)
[2024-06-23] VITALS (15 sets, daily range): BP systolic 148–161; BP diastolic 91–100; PULSE 94–125; RESP 18–20; TEMP 36.2–36.6; O2SAT 95–99
[2024-06-23] MEDS: ONDANSETRON INJ 4 MG/2 ML VIAL IV PUSH ×4 (00:17→22:40)
[2024-06-23] MEDS: METOPROLOL TARTRATE INJ 5 MG/5 ML VIAL IV PUSH ×3 (00:17→21:09)
[2024-06-23] MEDS: SODIUM CHLORIDE 0.9% IV 1,000 ML 100 ML IV CONT (06:10)
[2024-06-23 06:25] LABS: Basophils Percent Auto 0.2 % (0.2-1.2); Hematocrit 47.7 % (37.0-47.0); Hemoglobin 16.1 g/dL (12.0-15.0); Immature Granulocyte Absolute 0.08 K/mm3 (0.00-0.031); Immature Granulocyte Percent A 0.5 % (0-0.5); Lymphocytes Percent Auto 19.7 % (18.3-44.2); Mean Corpuscular HGB Conc 33.8 g/dl (32-36); Mean Corpuscular Hemoglobin 28.1 pg (26-34); Mean Corpuscular Volume 83.2 fl (80-100); Monocytes Absolute Auto 1.5 K/mm3 (0.1-0.6); Monocytes Percent Auto 9.4 % (2.6-8.5); Neutrophils Absolute Auto 11.4 K/mm3 (1.3-6.7); Neutrophils Percent Auto 70.2 % (45.5-73.1); Platelet Count Result 336 k/mm3 (150-375); Red Blood Count 5.73 M/mm3 (4.2-5.4); Red Cell Distribution Width 13.5 % (11.5-14.5); White Blood Count 16.2 K/mm3 (4.5-10.0)
[2024-06-23 06:36] LABS: Alanine Aminotransferase 35 U/L (6-35); Albumin Level 4.7 g/dL (3.5-5.1); Alkaline Phosphatase 93 U/L (38-126); Anion Gap 14 mmol/L (4-12); Aspartate Amino Transferase 29 U/L (14-36); Blood Urea Nitrogen 12 mg/dL (7-17); Calcium 9.8 mg/dL (8.4-10.2); Carbon Dioxide 22 mmol/L (22-30); Chloride 104 mmol/L (98-107); Estimated CRCL calculation 118 ml/min; Estimated Glomerular Filt Rate > 60; Glucose 299 mg/dL (65-110); Potassium 2.6 mmol/L (3.4-5.0); Sodium 140 mmol/L (137-145)
--- NOTE | 2024-06-23 07:27 | P.PNIM_ITS ---
Progress Note: A&P Assessment and Plan (1) Sepsis: Code(s): A41.9 - Sepsis, unspecified organism Status: Acute Assessment and Plan: Meets SIRS criteria: Tachycardia, Leukocytosis - lactic acid: pending - suspected source: unknown - blood cultures drawn on 06/23 - UA: 3+ protein, 1+ glucose, 2+ ketones, 1+ blood - CXR: No acute cardiopulmonary disease. (2) Intractable nausea and vomiting: Code(s): R11.2 - Nausea with vomiting, unspecified Status: Acute Assessment and Plan: * CT Abd/pelvis without acute findings * Antiemetics, IVFs * NPO, continue holding medications * Continue Protonix 40 mg daily * Elevated gap and beta hydroxybutyrate however pH is 7.434. She is not acidotic. * IV Compazine q.6 p.r.n. * Nausea slightly improved today * GI following, likely EGD tomorrow (3) Dehydration: Code(s): E86.0 - Dehydration Status: Acute Assessment and Plan: * In ED: K=3.0, likely secondary to vomiting. Will supp as needed * Continue to trend AM labs (4) Hypokalemia: Code(s): E87.6 - Hypokalemia Status: Acute Assessment and Plan: * In ED: 3.6 * Likely secondary to continuous Vomiting and associated nausea. * Continue to monitor and supplement as needed * 06/23: K 2.6 * IV potassium/sodium chloride ordered 06/23 (5) Insulin dependent diabetes mellitus: Status: Chronic Assessment and Plan: * Continue to hold oral hypoglycemic meds * Sliding scale insulin * Hypoglycemic protocol * Accu-Cheks a.c. and HS * A1c 7.2% (6) HLD (hyperlipidemia): Code(s): E78.5 - Hyperlipidemia, unspecified Status: Chronic Assessment and Plan: * Continue medications once confirmed and can tolerate * Currently NPO, admits to heart healthy diet when able to tolerate p.o. intake (7) Diastolic dysfunction: Code(s): I51.89 - Other ill-defined heart diseases Status: Chronic Assessment and Plan: * Daily weight * Accurate intake and output * Patient currently appears euvolemic * Pt denies CP/SOB/cough (8) HTN (hypertension): Code(s): I10 - Essential (primary) hypertension Status: Chronic Assessment and Plan: * Currently NPO, Holding oral meds * IV hydralazine ordered with parameters. Telemetry -91 bpm (9) Anxiety and depression: Code(s): F41.9 - Anxiety disorder, unspecified; F32.9 - Major depressive disorder, single episode, unspecified Status: Chronic Assessment and Plan: * Continue home medications when confirmed and can tolerate Plan -Continue with IVF and antiemetics Time Spent With Patient Time: - Subjective Date/time seen: 06/23/24 07:27 Interval history: 63-year-old female patient with history of heart failure, rheumatoid arthritis, asthma, BC, anxiety, depression, GERD, hypertension, hyperlipidemia and type 2 diabetes mellitus comes to the emergency room today with acute onset of nausea and vomiting. 06/23/2024 Patient sitting comfortably in bed at time of examination. Patient denies any chest pain, shortness of breath, vomiting, abdominal pain at this time. Still endorses some nausea, but patient was started on IV Compazine after several episodes of emesis yesterday. Potassium was 2.6 today, she states that she probably threw up her potassium chloride tablet yesterday. She will be started on further IV potassium supplementation to correct this. Likely to be taken for an EGD scope tomorrow. Patient is otherwise stable and has no complaints. Review of Systems Review of Systems: All systems reviewed & are unremarkable except as noted in HPI and below Gastrointestinal: Gastrointestinal: Reports abdominal pain (mild RLQ), Denies diarrhea, Reports nausea and Reports vomiting Exam Const: General: no acute distress Other: Ill appearing, obese. HENMT: Face/Nose/Sinus: Normal nares present Mouth: Yes dry mucous membranes Eyes: General: appearance normal, both eyes and all related structures Sclera: sclerae normal Neck: Neck: supple and no JVD Chest: Other: Nontender Resp: Effort & Inspection: normal respiratory effort Auscultation: clear to auscultation bilaterally Cardio: Rate: regular rate Rhythm: regular rhythm Heart sounds: no gallops, Murmur heart sound present (Grade 2 systolic) and no rubs GI: Inspection: non-distended Auscultation: normal bowel sounds Other: Mild TTP to RLQ, no guarding Skin: General skin exam: normal color, no rashes or lesions noted, No lesion and No rashes Lesions: no lesions noted Rashes: no rashes noted Wounds: no wounds Neuro: General: gait normal Speech: normal speech Motor exam (neuro): 5/5 motor strength present throughout and Normal motor muscle tone present throughout Sensory Exam: normal sensation Extrem: General: normal to inspection, no edema and no pedal edema Psych: Mental Status: mental status grossly normal Affect: normal affect and Hostile affect present Other: Patient obviously upset that I will not allow her to have ice chips as she rolls her eyes at me Objective Data Vital Signs Vital Signs: Vital Signs - 24 hr 06/22/24 08:00 06/22/24 09:45 06/22/24 12:00 Temperature Pulse Rate 106 H 98 Respiratory Rate Blood Pressure Pulse Oximetry 100 Oxygen Delivery Room Air 06/22/24 14:00 06/22/24 16:00 06/22/24 20:00 Temperature 97.8 F Pulse Rate 108 H 111 H Respiratory Rate 18 Blood Pressure 155/88 H Pulse Oximetry 98 Oxygen Delivery Room Air 06/22/24 20:00 06/22/24 21:14 06/23/24 00:00 Temperature 98.2 F Pulse Rate 118 H 115 H 121 H Respiratory Rate 18 Blood Pressure 141/71 H Pulse Oximetry 98 Oxygen Delivery 06/23/24 00:17 06/23/24 04:00 06/23/24 05:26 Temperature 97.6 F Pulse Rate 125 H 111 H 110 H Respiratory Rate 18 Blood Pressure 157/97 H Pulse Oximetry 98 Oxygen Delivery Intake/Output Intake/Output: Intake & Output 06/20/24 06/21/24 06/22/24 06/23/24 23:59 23:59 23:59 23:59 Intake Total 1100 1145 3020.0 960 Output Total 2 2 Balance 1100 1143 3020.0 958 Meds/Results Medications: Active Medications Generic Name Dose Route Start Last Admin Trade Name Freq PRN Reason Stop Dose Admin Dextrose 12.5 gm 06/21/24 02:12 Dextrose 50% 25 Gm/50 Ml Syringe IV PUSH PRN PRN Hypoglycemia Protocol Glucagon 1 mg 06/21/24 02:12 Glucagon For Inj 1 Mg Vial IM PRN PRN Hypoglycemia Protocol Glucose 15 gm 06/21/24 02:12 Glucose Oral Gel 15 Gm Of Glucse In 37.5 Gm Tube PO PRN PRN Hypoglycemia Protocol Hydralazine HCl 10 mg 06/21/24 02:12 06/21/24 07:52 Hydralazine Hcl 20 Mg/Ml Vial IV PUSH 10 mg Q8H PRN Administration Blood Pressure - High Sodium Chloride 1,000 mls @ 100 mls/hr 06/21/24 02:10 06/23/24 06:10 Normal Saline Iv IV CONT 100 mls/hr .Q10H JUDITH Administration Dextrose 1,000 mls @ 100 mls/hr 06/21/24 02:12 Dextrose 5% 1,000 Ml IVPB PRN PRN Hypoglycemia Protocol Insulin Aspart 2 - 5 units 06/21/24 08:00 06/22/24 17:40 Insulin Aspart (*Bkc) 100 Units/Ml SUB-Q 2 units TIDWM JUDITH Administration Protocol Insulin Aspart 1 - 2 units 06/21/24 21:00 06/22/24 20:37 Insulin Aspart (*Bkc) 100 Units/Ml SUB-Q 1 units HS JUDITH Administration Protocol Metoprolol Tartrate 5 mg 06/22/24 23:32 06/23/24 00:17 Metoprolol Tartrate Inj 5 Mg/5 Ml Vial IV PUSH 5 mg Q8HR PRN Administration Heart Rate- High Ondansetron HCl 4 mg 06/21/24 02:08 06/23/24 06:10 Ondansetron Inj 4 Mg/2 Ml Vial IV PUSH 4 mg Q6HR PRN Administration Nausea And Vomiting Pantoprazole Sodium 40 mg 06/21/24 09:00 06/22/24 09:44 Pantoprazole Sodium Iv 40 Mg Vial IV PUSH 40 mg DAILY JUDITH Administration Prochlorperazine Maleate 5 mg 06/22/24 13:00 06/22/24 13:33 Prochlorperazine Maleate 5 Mg Tablet PO 5 mg Q6H PRN Administration Nausea And Vomiting Sucralfate 1,000 mg 06/23/24 06:30 06/23/24 06:11 Sucralfate Susp 100 Mg/Ml 10 Ml Udc PO Not Given [facility] Radiology Results: ITS Impressions Abdomen/Pelvis CT 06/20/24 23:57 IMPRESSION: Redemonstration of a chronic mass within the body of the uterus distorting the endometrial canal, unchanged dating back to 2015. Hepatomegaly with borderline splenomegaly. Labs Labs: Laboratory Results - last 24 hr 06/22/24 06/22/24 06/22/24 08:42 09:35 12:07 WBC 14.9 H RBC 5.37 Hgb 15.1 H Hct 45.1 MCV 84.0 MCH 28.1 MCHC 33.5 RDW 13.8 Plt Count 330 MPV 10.8 H Immature Gran % (Auto) 0.4 Neut % (Auto) 72.8 Lymph % (Auto) 18.3 [place] % (Auto) 8.2 Eos % (Auto) 0.0 Baso % (Auto) 0.3 Lymph # (Auto) 2.73 [place] # (Auto) 1.2 H Eos # (Auto) 0.0 Baso # (Auto) 0.0 Abs Immat Gran (auto) 0.06 H Absolute Neuts (auto) 10.9 H Absolute Nucleated RBC 0.000 Nucleated RBC % 0.0 Sodium 137 Potassium 2.7 L* Chloride 101 Carbon Dioxide 21 L Anion Gap 15 H BUN 11 D Creatinine 0.54 L Estim Creat Clear Calc 119 Estimated GFR > 60 Glucose 340 H POC Capillary Glucose 297 H 256 H Calcium 10.0 Total Bilirubin 1.0 AST 29 ALT 32 Alkaline Phosphatase 100 Total Protein 8.0 Albumin 4.8 06/22/24 06/22/24 06/22/24 15:55 17:09 19:48 WBC RBC Hgb Hct MCV MCH MCHC RDW Plt Count MPV Immature Gran % (Auto) Neut % (Auto) Lymph % (Auto) [place] % (Auto) Eos % (Auto) Baso % (Auto) Lymph # (Auto) [place] # (Auto) Eos # (Auto) Baso # (Auto) Abs Immat Gran (auto) Absolute Neuts (auto) Absolute Nucleated RBC Nucleated RBC % Sodium Potassium 3.0 L Chloride Carbon Dioxide Anion Gap BUN Creatinine Estim Creat Clear Calc Estimated GFR Glucose POC Capillary Glucose 248 H 222 H Calcium Total Bilirubin AST ALT Alkaline Phosphatase Total Protein Albumin 06/23/24 06:16 WBC 16.2 H RBC 5.73 H Hgb 16.1 H Hct 47.7 H MCV 83.2 MCH 28.1 MCHC 33.8 RDW 13.5 Plt Count 336 MPV 10.0 Immature Gran % (Auto) 0.5 Neut % (Auto) 70.2 Lymph % (Auto) 19.7 [place] % (Auto) 9.4 H Eos % (Auto) 0.0 Baso % (Auto) 0.2 Lymph # (Auto) 3.20 [place] # (Auto) 1.5 H Eos # (Auto) 0.0 Baso # (Auto) 0.0 Abs Immat Gran (auto) 0.08 H Absolute Neuts (auto) 11.4 H Absolute Nucleated RBC 0.000 Nucleated RBC % 0.0 Sodium 140 Potassium 2.6 L* Chloride 104 Carbon Dioxide 22 Anion Gap 14 H BUN 12 Creatinine 0.55 L Estim Creat Clear Calc 118 Estimated GFR > 60 Glucose 299 H POC Capillary Glucose Calcium 9.8 Total Bilirubin 1.0 AST 29 ALT 35 Alkaline Phosphatase 93 Total Protein 9.0 H Albumin 4.7 Quality VTE Prophylaxis VTE prophylaxis: mechanical ordered
[2024-06-23 08:26] LABS: Glucose Point of Care 277 mg/dl (65-105)
[2024-06-23 08:45] LABS: Lactic Acid Reflex 1.2 mmol/L (0.7-2.0)
[2024-06-23] MEDS: PANTOPRAZOLE SODIUM IV 40 MG VIAL IV PUSH (09:12)
[2024-06-23] MEDS: POTASSIUM CHLORIDE INJ 40 MEQ in SODIUM CHLORIDE 0.9% IV 500 ML 130 MEQ IVPB ×2 (09:15→16:14)
[2024-06-23] MEDS: INSULIN ASPART (*BKC) 100 UNITS/ML SUB-Q ×4 (09:21→21:11)
[2024-06-23] MEDS: PROCHLORPERAZINE EDISYLATE 10 MG/2 ML VIAL IV PUSH ×2 (11:37→18:11)
[2024-06-23 11:51] LABS: Glucose Point of Care 268 mg/dl (65-105)
[2024-06-23] MEDS: KCL 20MEQ/0.9% SOD CHL 1,000 ML 100 ML IV CONT ×2 (12:43→23:09)
[2024-06-23 15:46] LABS: Potassium 2.9 mmol/L (3.4-5.0)
[2024-06-23 17:05] LABS: Glucose Point of Care 239 mg/dl (65-105)
--- NOTE | 2024-06-23 17:28 | P.PNGI_ITS ---
Progress Note: A&P Assessment and Plan (1) Intractable nausea and vomiting: Code(s): R11.2 - Nausea with vomiting, unspecified Status: Acute Assessment and Plan: still nauseous liver enzymes, amylase and lactic normal ct scan only fatty liver and small size hiatal hernia today we did not do egd because hypokalemia, will attempt tomorrow (2) Epigastric pain: Code(s): R10.13 - Epigastric pain Status: Acute Assessment and Plan: medical treatment ct scan reviewed liver enzymes normal (3) GERD (gastroesophageal reflux disease): Qualifiers: Esophagitis presence: esophagitis presence not specified Qualified Code(s): K21.9 - Gastro-esophageal reflux disease without esophagitis Code(s): K21.9 - Gastro-esophageal reflux disease without esophagitis Status: Acute (4) Anxiety and depression: Code(s): F41.9 - Anxiety disorder, unspecified; F32.9 - Major depressive disorder, single episode, unspecified Status: Chronic (5) Diabetes: Qualifiers: Diabetes mellitus type: type 1 Diabetes mellitus complication status: without complication Qualified Code(s): E10.9 - Type 1 diabetes mellitus without complications Code(s): E11.9 - Type 2 diabetes mellitus without complications Status: Acute Subjective Date/time seen: 06/23/24 17:28 Interval history: still with nausea egd postponed today because hypokalemia Review of Systems Review of Systems: All systems reviewed & are unremarkable except as noted in HPI and below Exam Const: General: no acute distress HENMT: Face/Nose/Sinus: Normal nares present Mouth: Yes dry mucous membranes Eyes: General: appearance normal, both eyes and all related structures Sclera: sclerae normal Neck: Neck: supple Chest: Other: Nontender Resp: Effort & Inspection: normal respiratory effort Auscultation: clear to auscultation bilaterally Cardio: Rate: regular rate Rhythm: regular rhythm GI: Inspection: non-distended Auscultation: normal bowel sounds Skin: General skin exam: normal color and no rashes or lesions noted Neuro: Speech: normal speech Motor exam (neuro): 5/5 motor strength present throughout and Normal motor muscle tone present throughout Extrem: General: normal to inspection and no pedal edema Psych: Mental Status: mental status grossly normal Objective Data Vital Signs Vital Signs: Vital Signs - 24 hr 06/22/24 20:00 06/22/24 20:00 06/22/24 21:14 Temperature 98.2 F Pulse Rate 118 H 115 H Respiratory Rate 18 Blood Pressure 141/71 H Pulse Oximetry 98 Oxygen Delivery Room Air 06/23/24 00:00 06/23/24 00:17 06/23/24 04:00 Temperature Pulse Rate 121 H 125 H 111 H Respiratory Rate Blood Pressure Pulse Oximetry Oxygen Delivery 06/23/24 05:26 06/23/24 08:00 06/23/24 08:01 Temperature 97.6 F Pulse Rate 110 H 94 Respiratory Rate 18 Blood Pressure 157/97 H Pulse Oximetry 98 95 Oxygen Delivery Room Air 06/23/24 09:06 06/23/24 09:06 06/23/24 09:12 Temperature Pulse Rate 109 H Respiratory Rate Blood Pressure 161/100 H Pulse Oximetry Oxygen Delivery Room Air 06/23/24 10:48 06/23/24 12:00 06/23/24 14:00 Temperature 98 F 97.5 F L Pulse Rate 102 H 116 H Respiratory Rate 20 Blood Pressure 148/91 H Pulse Oximetry 99 Oxygen Delivery 06/23/24 16:00 Temperature Pulse Rate 124 H Respiratory Rate Blood Pressure Pulse Oximetry Oxygen Delivery Intake/Output Intake/Output: Intake & Output 06/20/24 06/21/24 06/22/24 06/23/24 23:59 23:59 23:59 23:59 Intake Total 1100 1145 3020.0 1535 Output Total 2 2 Balance 1100 1143 3020.0 1533 Meds/Results Medications: Active Medications Generic Name Dose Route Start Last Admin Trade Name Freq PRN Reason Stop Dose Admin Dextrose 12.5 gm 06/21/24 02:12 Dextrose 50% 25 Gm/50 Ml Syringe IV PUSH PRN PRN Hypoglycemia Protocol Glucagon 1 mg 06/21/24 02:12 Glucagon For Inj 1 Mg Vial IM PRN PRN Hypoglycemia Protocol Glucose 15 gm 06/21/24 02:12 Glucose Oral Gel 15 Gm Of Glucse In 37.5 Gm Tube PO PRN PRN Hypoglycemia Protocol Hydralazine HCl 10 mg 06/21/24 02:12 06/21/24 07:52 Hydralazine Hcl 20 Mg/Ml Vial IV PUSH 10 mg Q8H PRN Administration Blood Pressure - High Dextrose 1,000 mls @ 100 mls/hr 06/21/24 02:12 Dextrose 5% 1,000 Ml IVPB PRN PRN Hypoglycemia Protocol Potassium Chloride/Sodium Chloride 1,000 mls @ 100 mls/hr 06/23/24 11:45 06/23/24 12:43 Kcl 20 Meq/Ns IV CONT 100 mls/hr .Q10H JUDITH Administration Potassium Chloride 40 meq/ 520 mls @ 130 mls/hr 06/23/24 15:57 06/23/24 16:14 Sodium Chloride IVPB 06/23/24 19:56 130 mls/hr ONCE ONE Administration Insulin Aspart 2 - 5 units 06/21/24 08:00 06/23/24 12:39 Insulin Aspart (*Bkc) 100 Units/Ml SUB-Q 3 units TIDWM JUDITH Administration Protocol Insulin Aspart 1 - 2 units 06/21/24 21:00 06/22/24 20:37 Insulin Aspart (*Bkc) 100 Units/Ml SUB-Q 1 units HS JUDITH Administration Protocol Metoprolol Tartrate 5 mg 06/22/24 23:32 06/23/24 09:06 Metoprolol Tartrate Inj 5 Mg/5 Ml Vial IV PUSH 5 mg Q8HR PRN Administration Heart Rate- High Ondansetron HCl 4 mg 06/21/24 02:08 06/23/24 16:13 Ondansetron Inj 4 Mg/2 Ml Vial IV PUSH 4 mg Q6HR PRN Administration Nausea And Vomiting Pantoprazole Sodium 40 mg 06/21/24 09:00 06/23/24 09:12 Pantoprazole Sodium Iv 40 Mg Vial IV PUSH 40 mg DAILY JUDITH Administration Prochlorperazine Edisylate 10 mg 06/23/24 11:14 06/23/24 11:37 Prochlorperazine Edisylate 10 Mg/2 Ml Vial IV PUSH 10 mg Q6H PRN Administration Nausea And Vomiting Sucralfate 1,000 mg 06/23/24 06:30 06/23/24 17:05 Sucralfate Susp 100 Mg/Ml 10 Ml Udc PO Not Given ACHS [facility] Radiology Results: ITS Impressions Abdomen/Pelvis CT 06/20/24 23:57 IMPRESSION: Redemonstration of a chronic mass within the body of the uterus distorting the endometrial canal, unchanged dating back to 2015. Hepatomegaly with borderline splenomegaly. Chest X-Ray 06/23/24 09:37 IMPRESSION: 1. No acute cardiopulmonary disease. Labs Labs: Laboratory Results - last 24 hr 06/22/24 06/23/24 06/23/24 19:48 06:16 08:09 WBC 16.2 H RBC 5.73 H Hgb 16.1 H Hct 47.7 H MCV 83.2 MCH 28.1 MCHC 33.8 RDW 13.5 Plt Count 336 MPV 10.0 Immature Gran % (Auto) 0.5 Neut % (Auto) 70.2 Lymph % (Auto) 19.7 [place] % (Auto) 9.4 H Eos % (Auto) 0.0 Baso % (Auto) 0.2 Lymph # (Auto) 3.20 [place] # (Auto) 1.5 H Eos # (Auto) 0.0 Baso # (Auto) 0.0 Abs Immat Gran (auto) 0.08 H Absolute Neuts (auto) 11.4 H Absolute Nucleated RBC 0.000 Nucleated RBC % 0.0 Sodium 140 Potassium 2.6 L* Chloride 104 Carbon Dioxide 22 Anion Gap 14 H BUN 12 Creatinine 0.55 L Estim Creat Clear Calc 118 Estimated GFR > 60 Glucose 299 H POC Capillary Glucose 222 H 277 H Lactic Acid Calcium 9.8 Total Bilirubin 1.0 AST 29 ALT 35 Alkaline Phosphatase 93 Total Protein 9.0 H Albumin 4.7 06/23/24 06/23/24 06/23/24 08:31 11:42 15:32 WBC RBC Hgb Hct MCV MCH MCHC RDW Plt Count MPV Immature Gran % (Auto) Neut % (Auto) Lymph % (Auto) [place] % (Auto) Eos % (Auto) Baso % (Auto) Lymph # (Auto) [place] # (Auto) Eos # (Auto) Baso # (Auto) Abs Immat Gran (auto) Absolute Neuts (auto) Absolute Nucleated RBC Nucleated RBC % Sodium Potassium 2.9 L Chloride Carbon Dioxide Anion Gap BUN Creatinine Estim Creat Clear Calc Estimated GFR Glucose POC Capillary Glucose 268 H Lactic Acid 1.2 Calcium Total Bilirubin AST ALT Alkaline Phosphatase Total Protein Albumin 06/23/24 16:59 WBC RBC Hgb Hct MCV MCH MCHC RDW Plt Count MPV Immature Gran % (Auto) Neut % (Auto) Lymph % (Auto) [place] % (Auto) Eos % (Auto) Baso % (Auto) Lymph # (Auto) [place] # (Auto) Eos # (Auto) Baso # (Auto) Abs Immat Gran (auto) Absolute Neuts (auto) Absolute Nucleated RBC Nucleated RBC % Sodium Potassium Chloride Carbon Dioxide Anion Gap BUN Creatinine Estim Creat Clear Calc Estimated GFR Glucose POC Capillary Glucose 239 H Lactic Acid Calcium Total Bilirubin AST ALT Alkaline Phosphatase Total Protein Albumin
[2024-06-24] VITALS (16 sets, daily range): BP systolic 103–186; BP diastolic 68–104; PULSE 92–120; RESP 18–24; TEMP 36.2–36.4; O2SAT 95–100
[2024-06-24 00:23] LABS: Glucose Point of Care 258 mg/dl (65-105)
[2024-06-24] MEDS: METOPROLOL TARTRATE INJ 5 MG/5 ML VIAL IV PUSH ×2 (06:19→17:25)
[2024-06-24 06:21] LABS: Basophils Absolute Auto 0.1 K/mm3 (0.0-0.1); Basophils Percent Auto 0.4 % (0.2-1.2); Eosinophils Percent Auto 0.1 % (0-4.4); Hematocrit 48.9 % (37.0-47.0); Immature Granulocyte Absolute 0.04 K/mm3 (0.00-0.031); Immature Granulocyte Percent A 0.3 % (0-0.5); Lymphocytes Absolute Auto 3.35 K/mm3 (0.9-3.2); Lymphocytes Percent Auto 23.2 % (18.3-44.2); Mean Corpuscular HGB Conc 32.7 g/dl (32-36); Mean Corpuscular Hemoglobin 27.6 pg (26-34); Mean Corpuscular Volume 84.5 fl (80-100); Mean Platelet Volume 10.2 fl (7.4-10.4); Monocytes Absolute Auto 1.4 K/mm3 (0.1-0.6); Monocytes Percent Auto 9.7 % (2.6-8.5); Neutrophils Absolute Auto 9.6 K/mm3 (1.3-6.7); Neutrophils Percent Auto 66.3 % (45.5-73.1); Platelet Count Result 329 k/mm3 (150-375); Red Blood Count 5.79 M/mm3 (4.2-5.4); Red Cell Distribution Width 13.6 % (11.5-14.5); White Blood Count 14.4 K/mm3 (4.5-10.0)
[2024-06-24] MEDS: ONDANSETRON INJ 4 MG/2 ML VIAL IV PUSH ×2 (06:26→20:38)
[2024-06-24 06:27] LABS: Alanine Aminotransferase 35 U/L (6-35); Albumin Level 4.6 g/dL (3.5-5.1); Alkaline Phosphatase 97 U/L (38-126); Anion Gap 13 mmol/L (4-12); Aspartate Amino Transferase 32 U/L (14-36); Bilirubin,Total 1.1 mg/dL (0.2-1.3); Blood Urea Nitrogen 13 mg/dL (7-17); Calcium 9.3 mg/dL (8.4-10.2); Carbon Dioxide 21 mmol/L (22-30); Chloride 106 mmol/L (98-107); Estimated CRCL calculation 100 ml/min; Estimated Glomerular Filt Rate > 60; Glucose 291 mg/dL (65-110); Potassium 3.1 mmol/L (3.4-5.0); Sodium 140 mmol/L (137-145)
--- NOTE | 2024-06-24 07:56 | P.CDI_ITS ---
CDI Query Clarification Request The medical record reflects the diagnosis of: sepsis *Yes- condition was present at the time of inpatient admission *No- condition was not present at the time of inpatient admission and it developed during the inpatient stay *W- provider is unable to clinically determine whether condition is present on admission The medical record reflects the following: This is a 53 year old female that presents to the ER for abdominal pain, nausea and vomiting. Started today. Reports recent admission for heart failure. She was started on new medications. Is unsure if this is maybe contributing. Denies fever, chest pain, shortness of breath. Workup was initiated in the emergency room with labs, imaging and EKG. Patient's labs with an marginally elevated WBC count of 13.2. Metabolic panel is unremarkable, the patient has a noted anion gap of 23 and BUN of 24, urinalysis representing dehydration with ketones present. EKG showed normal sinus rhythm 88 beats per minute without any ischemic changes. CT abdomen pelvis was performed that showed a redemonstration of a chronic mass within the body of the uterus distorting the endometrial canal unchanged dating back to 2015. There is hepatomegaly with borderline splenomegaly however there are no acute findings to explain patient's nausea and vomiting. In the emergency room patient was given multiple medications for her nausea including Pepcid, Zofran, Reglan, Benadryl, Protonix, Bentyl, Mylanta, droperidol, Haldol and patient still continued to complain of dry heaving. Unbeknownst to me the ER provider then had discussion with selling underwriter about placing patient possibly in ICU for potential DKA, however no VBG had been performed and no lactic acid or beta hydroxybutyrate. More information was requested from ER provider, however she had already discussed with selling underwriter without informing me. The VG was performed that shows pH is 7.434. Her beta hydroxybutyrate is 3.49. Patient does appear to be dehydrated, but does not appear to be in DKA. Patient admitted for IV hydration and further monitoring that does not require ICU at this time. Sepsis added to problem list on 06/23 (1) Sepsis: Code(s): A41.9 - Sepsis, unspecified organism Status: Acute Assessment and Plan: Meets SIRS criteria: Tachycardia, Leukocytosis - lactic acid: pending - suspected source: unknown - blood cultures drawn on 06/23 - UA: 3+ protein, 1+ glucose, 2+ ketones, 1+ blood - CXR: No acute cardiopulmonary disease. WBC: 06/20: 13.2, 06/21: 15.3, 06/22: 14.9, 06/23: 16.2 Lactic acid: 06/21: 1.5, 06/23: 1.2 <Kaley Younger RN - Last Filed: 06/24/24 08:03> Clarified Diagnosis Clarified Diagnosis: W- provider is unable to clinically determine whether condition is present on admission <Jean Ellison PA-C - Last Filed: 06/24/24 08:21>
[2024-06-24 08:14] LABS: Glucose Point of Care 285 mg/dl (65-105)
--- NOTE | 2024-06-24 08:19 | P.PNIM_ITS ---
Progress Note: A&P Assessment and Plan (1) Sepsis: Code(s): A41.9 - Sepsis, unspecified organism Status: Acute Assessment and Plan: Meets SIRS criteria: Tachycardia, Leukocytosis - lactic acid: pending - suspected source: unknown - blood cultures drawn on 06/23 - UA: 3+ protein, 1+ glucose, 2+ ketones, 1+ blood - CXR: No acute cardiopulmonary disease. - Preliminary blood cultures negative - Tachycardia and tachypnea likely some component of anxiety - Sepsis unlikely (2) Intractable nausea and vomiting: Code(s): R11.2 - Nausea with vomiting, unspecified Status: Acute Assessment and Plan: * CT Abd/pelvis without acute findings * Antiemetics, IVFs * NPO, continue holding medications * Continue Protonix 40 mg daily * Elevated gap and beta hydroxybutyrate however pH is 7.434. She is not acidotic. * IV Compazine q.6 p.r.n. * Nausea slightly improved today * EGD report: Reflux esophagitis, grade 1. Mild gastritis in antrum. Multiple biopsies taken (3) Dehydration: Code(s): E86.0 - Dehydration Status: Acute Assessment and Plan: * In ED: K=3.0, likely secondary to vomiting. Will supp as needed * Continue to trend AM labs (4) Hypokalemia: Code(s): E87.6 - Hypokalemia Status: Acute Assessment and Plan: * In ED: 3.6 * Likely secondary to continuous Vomiting and associated nausea. * Continue to monitor and supplement as needed * 06/24: K 3.1 * IV Continuous potassium/sodium chloride ordered 06/23 (5) Insulin dependent diabetes mellitus: Status: Chronic Assessment and Plan: * Continue to hold oral hypoglycemic meds * Sliding scale insulin * Hypoglycemic protocol * Accu-Cheks a.c. and HS * A1c 7.2% (6) HLD (hyperlipidemia): Code(s): E78.5 - Hyperlipidemia, unspecified Status: Chronic Assessment and Plan: * Continue medications once confirmed and can tolerate * Currently NPO, admits to heart healthy diet when able to tolerate p.o. intake (7) Diastolic dysfunction: Code(s): I51.89 - Other ill-defined heart diseases Status: Chronic Assessment and Plan: * Daily weight * Accurate intake and output * Patient currently appears euvolemic * Pt denies CP/SOB/cough (8) HTN (hypertension): Code(s): I10 - Essential (primary) hypertension Status: Chronic Assessment and Plan: * Currently NPO, Holding oral meds * IV hydralazine ordered with parameters. Telemetry -94 bpm (9) Anxiety and depression: Code(s): F41.9 - Anxiety disorder, unspecified; F32.9 - Major depressive disorder, single episode, unspecified Status: Chronic Assessment and Plan: * Continue home medications when confirmed and can tolerate Plan -Continue with IVF and antiemetics Time Spent With Patient Time: Subjective Date/time seen: 06/24/24 08:19 Interval history: 63-year-old female patient with history of heart failure, rheumatoid arthritis, asthma, BC, anxiety, depression, GERD, hypertension, hyperlipidemia and type 2 diabetes mellitus comes to the emergency room today with acute onset of nausea and vomiting. 06/24/2024 Patient sitting comfortably in bed at time of exam. Denies any episodes of vomiting, chest pain, SOB, or abdominal pain. Still endorsing some nausea. Scheduled for EGD today, GI still following. Will follow up on EGD. Review of Systems Review of Systems: All systems reviewed & are unremarkable except as noted in HPI and below Gastrointestinal: Gastrointestinal: Reports abdominal pain (mild RLQ), Denies diarrhea, Reports nausea and Reports vomiting Exam Const: General: no acute distress Other: Ill appearing, obese. HENMT: Face/Nose/Sinus: Normal nares present Mouth: Yes dry mucous membranes Eyes: General: appearance normal, both eyes and all related structures Sclera: sclerae normal Neck: Neck: supple and no JVD Chest: Other: Nontender Resp: Effort & Inspection: normal respiratory effort Auscultation: clear to auscultation bilaterally Cardio: Rate: regular rate Rhythm: regular rhythm Heart sounds: no gallops, Murmur heart sound present (Grade 2 systolic) and no rubs GI: Inspection: non-distended Auscultation: normal bowel sounds Other: No tenderness to palpation, no guarding Skin: General skin exam: normal color, no rashes or lesions noted, No lesion and No rashes Lesions: no lesions noted Rashes: no rashes noted Wounds: no wounds Neuro: General: gait normal Speech: normal speech Motor exam (neuro): 5/5 motor strength present throughout and Normal motor muscle tone present throughout Sensory Exam: normal sensation Extrem: General: normal to inspection, no edema and no pedal edema Psych: Mental Status: mental status grossly normal Affect: normal affect and Hostile affect present Objective Data Vital Signs Vital Signs: Vital Signs - 24 hr 06/23/24 09:06 06/23/24 09:06 06/23/24 09:12 Temperature Pulse Rate 109 H Respiratory Rate Blood Pressure 161/100 H Pulse Oximetry Oxygen Delivery Room Air 06/23/24 10:48 06/23/24 12:00 06/23/24 14:00 Temperature 98 F 97.5 F L Pulse Rate 102 H 116 H Respiratory Rate 20 Blood Pressure 148/91 H Pulse Oximetry 99 Oxygen Delivery 06/23/24 16:00 06/23/24 20:00 06/23/24 20:00 Temperature Pulse Rate 124 H 114 H 113 H Respiratory Rate 20 Blood Pressure Pulse Oximetry 99 Oxygen Delivery Room Air 06/23/24 20:57 06/23/24 20:59 06/23/24 21:09 Temperature 97.1 F L Pulse Rate 118 H 114 H Respiratory Rate 20 Blood Pressure 158/99 H Pulse Oximetry 99 Oxygen Delivery 06/24/24 00:00 06/24/24 04:00 06/24/24 04:26 Temperature 97.6 F Pulse Rate 94 111 H 118 H Respiratory Rate 18 Blood Pressure 150/86 H Pulse Oximetry 98 Oxygen Delivery 06/24/24 06:19 Temperature Pulse Rate 120 H Respiratory Rate Blood Pressure Pulse Oximetry Oxygen Delivery Intake/Output Intake/Output: Intake & Output 06/21/24 06/22/24 06/23/24 06/24/24 23:59 23:59 23:59 23:59 Intake Total 1145 3020.0 2535 1100 Output Total 2 2 Balance 1143 3020.0 2533 1100 Meds/Results Medications: Active Medications Generic Name Dose Route Start Last Admin Trade Name Freq PRN Reason Stop Dose Admin Dextrose 12.5 gm 06/21/24 02:12 Dextrose 50% 25 Gm/50 Ml Syringe IV PUSH PRN PRN Hypoglycemia Protocol Glucagon 1 mg 06/21/24 02:12 Glucagon For Inj 1 Mg Vial IM PRN PRN Hypoglycemia Protocol Glucose 15 gm 06/21/24 02:12 Glucose Oral Gel 15 Gm Of Glucse In 37.5 Gm Tube PO PRN PRN Hypoglycemia Protocol Hydralazine HCl 10 mg 06/21/24 02:12 06/21/24 07:52 Hydralazine Hcl 20 Mg/Ml Vial IV PUSH 10 mg Q8H PRN Administration Blood Pressure - High Dextrose 1,000 mls @ 100 mls/hr 06/21/24 02:12 Dextrose 5% 1,000 Ml IVPB PRN PRN Hypoglycemia Protocol Potassium Chloride/Sodium Chloride 1,000 mls @ 100 mls/hr 06/23/24 11:45 06/23/24 23:09 Kcl 20 Meq/Ns IV CONT 100 mls/hr .Q10H JUDITH Administration Insulin Aspart 2 - 5 units 06/21/24 08:00 06/23/24 18:09 Insulin Aspart (*Bkc) 100 Units/Ml SUB-Q 2 units TIDWM JUDITH Administration Protocol Insulin Aspart 1 - 2 units 06/21/24 21:00 06/23/24 21:11 Insulin Aspart (*Bkc) 100 Units/Ml SUB-Q 1 units HS JUDITH Administration Protocol Metoprolol Tartrate 5 mg 06/22/24 23:32 06/24/24 06:19 Metoprolol Tartrate Inj 5 Mg/5 Ml Vial IV PUSH 5 mg Q8HR PRN Administration Heart Rate- High Ondansetron HCl 4 mg 06/21/24 02:08 06/24/24 06:26 Ondansetron Inj 4 Mg/2 Ml Vial IV PUSH 4 mg Q6HR PRN Administration Nausea And Vomiting Pantoprazole Sodium 40 mg 06/21/24 09:00 06/23/24 09:12 Pantoprazole Sodium Iv 40 Mg Vial IV PUSH 40 mg DAILY JUDITH Administration Prochlorperazine Edisylate 10 mg 06/23/24 11:14 06/23/24 18:11 Prochlorperazine Edisylate 10 Mg/2 Ml Vial IV PUSH 10 mg Q6H PRN Administration Nausea And Vomiting Sucralfate 1,000 mg 06/23/24 06:30 06/24/24 06:19 Sucralfate Susp 100 Mg/Ml 10 Ml Udc PO Not Given ACHS [facility] Radiology Results: ITS Impressions Abdomen/Pelvis CT 06/20/24 23:57 IMPRESSION: Redemonstration of a chronic mass within the body of the uterus distorting the endometrial canal, unchanged dating back to 2015. Hepatomegaly with borderline splenomegaly. Chest X-Ray 06/23/24 09:37 IMPRESSION: 1. No acute cardiopulmonary disease. Labs Labs: Laboratory Results - last 24 hr 06/23/24 06/23/24 06/23/24 08:09 08:31 11:42 WBC RBC Hgb Hct MCV MCH MCHC RDW Plt Count MPV Immature Gran % (Auto) Neut % (Auto) Lymph % (Auto) [place] % (Auto) Eos % (Auto) Baso % (Auto) Lymph # (Auto) [place] # (Auto) Eos # (Auto) Baso # (Auto) Abs Immat Gran (auto) Absolute Neuts (auto) Absolute Nucleated RBC Nucleated RBC % Sodium Potassium Chloride Carbon Dioxide Anion Gap BUN Creatinine Estim Creat Clear Calc Estimated GFR Glucose POC Capillary Glucose 277 H 268 H Lactic Acid 1.2 Calcium Total Bilirubin AST ALT Alkaline Phosphatase Total Protein Albumin 06/23/24 06/23/24 06/23/24 15:32 16:59 21:00 WBC RBC Hgb Hct MCV MCH MCHC RDW Plt Count MPV Immature Gran % (Auto) Neut % (Auto) Lymph % (Auto) [place] % (Auto) Eos % (Auto) Baso % (Auto) Lymph # (Auto) [place] # (Auto) Eos # (Auto) Baso # (Auto) Abs Immat Gran (auto) Absolute Neuts (auto) Absolute Nucleated RBC Nucleated RBC % Sodium Potassium 2.9 L Chloride Carbon Dioxide Anion Gap BUN Creatinine Estim Creat Clear Calc Estimated GFR Glucose POC Capillary Glucose 239 H 258 H Lactic Acid Calcium Total Bilirubin AST ALT Alkaline Phosphatase Total Protein Albumin 06/24/24 06/24/24 06:06 08:09 WBC 14.4 H RBC 5.79 H Hgb 16.0 H Hct 48.9 H MCV 84.5 MCH 27.6 MCHC 32.7 RDW 13.6 Plt Count 329 MPV 10.2 Immature Gran % (Auto) 0.3 Neut % (Auto) 66.3 Lymph % (Auto) 23.2 [place] % (Auto) 9.7 H Eos % (Auto) 0.1 Baso % (Auto) 0.4 Lymph # (Auto) 3.35 H [place] # (Auto) 1.4 H Eos # (Auto) 0.0 Baso # (Auto) 0.1 Abs Immat Gran (auto) 0.04 H Absolute Neuts (auto) 9.6 H Absolute Nucleated RBC 0.000 Nucleated RBC % 0.0 Sodium 140 Potassium 3.1 L Chloride 106 Carbon Dioxide 21 L Anion Gap 13 H BUN 13 Creatinine 0.66 L Estim Creat Clear Calc 100 Estimated GFR > 60 Glucose 291 H POC Capillary Glucose 285 H Lactic Acid Calcium 9.3 Total Bilirubin 1.1 AST 32 ALT 35 Alkaline Phosphatase 97 Total Protein 8.0 Albumin 4.6 Quality VTE Prophylaxis VTE prophylaxis: mechanical ordered
[2024-06-24] MEDS: PANTOPRAZOLE SODIUM IV 40 MG VIAL IV PUSH (09:04)
[2024-06-24] MEDS: POTASSIUM CHLORIDE INJ 40 MEQ in SODIUM CHLORIDE 0.9% IV 500 ML 130 MEQ IVPB (09:04)
[2024-06-24] MEDS: INSULIN ASPART (*BKC) 100 UNITS/ML SUB-Q ×4 (09:06→22:36)
[2024-06-24] MEDS: KCL 20MEQ/0.9% SOD CHL 1,000 ML 100 ML IV CONT (09:10)
[2024-06-24 09:53] LABS: Glucose Point of Care 257 mg/dl (65-105)
[2024-06-24] MEDS: LACTATED RINGERS 1,000 ML 150 ML IV CONT (09:57)
[2024-06-24] MEDS: BENZOCAINE (*SP) 60 ML SPRAY CAN (HURRICAINE) 1 SPRAY MUCOUS MEM (10:15)
--- NOTE | 2024-06-24 10:18 | WPDANESEPPF ---
Anes - Initial Pre Proc Eval Procedure: Operation Date: 06/24/24 15:30 Proposed Procedures p Esophagogastroduodenoscopy - Jonathan Sumner MD Date/Time: 06/24/24 10:18 Surgeon: Jean Ellison PA-C Pre Op Diagnosis: Intractable n/v Patient Data Age: 53 Gender: F Height: 1.65 m Weight: 103.4 kg Last Vital Signs Temp 97.3 F L 06/24/24 09:55 Pulse 107 H 06/24/24 09:55 Resp 20 06/24/24 09:55 BP 180/102 H 06/24/24 09:55 Pulse Ox 99 06/24/24 09:55 O2 Del Method Room Air 06/24/24 09:55 Allergies Allergy/AdvReac Type Severity Reaction Status Date / Time atenolol Allergy Intermediate Chest Pain Verified 06/24/24 09:52 Home Medications Medication Instructions Recorded Confirmed Type aspirin 81 mg capsule 81 mg PO DAILY 12/05/20 06/21/24 History rosuvastatin 40 mg tablet 40 mg PO WEEKLY 12/05/20 06/21/24 History albuterol sulfate 2.5 mg/3 mL 2.5 mg inhalation Q6H PRN 03/28/21 06/21/24 History (0.083 %) solution for nebulization Shortness Of Breath Or Wheezing ergocalciferol (vitamin D2) 1,250 1,250 mcg PO WEEKLY 03/28/21 06/21/24 History mcg (50,000 unit) capsule trazodone 50 mg tablet 50 mg PO QHS PRN Insomnia 03/28/21 06/21/24 History hydroxychloroquine 200 mg tablet 200 mg PO .q12hr 09/12/22 06/21/24 History Afrin (oxymetazoline) 1 puff intranasal TID PRN 04/06/23 06/21/24 History Congestion ibuprofen 1,600 mg PO BID PRN Headache 04/06/23 06/21/24 History magnesium oxide 400 mg (241.3 mg 400 mg PO HS 04/06/23 06/21/24 History magnesium) tablet doxycycline hyclate 100 mg tablet 100 mg PO Q12HR #5 tabs 04/14/23 06/21/24 Rx fluticasone propionate 230 2 puff inhalation Q12HRT 30 days 06/03/23 06/21/24 Rx mcg-salmeterol 21 mcg/actuation #60 grams HFA inhaler (Advair HFA) cetirizine 10 mg tablet 10 mg PO DAILY 06/13/24 06/21/24 History cyclobenzaprine 5 mg tablet 5 mg PO TID PRN muscle pain 06/13/24 06/21/24 History dulaglutide 3 mg/0.5 mL 3 mg subcut WEEKLY 06/13/24 06/21/24 History subcutaneous pen injector (Trulicity) escitalopram oxalate 10 mg tablet 10 mg PO DAILY 06/13/24 06/21/24 History famotidine 20 mg tablet 20 mg PO BID PRN acid reflux 06/13/24 06/21/24 History ferrous sulfate 325 mg (65 mg 325 mg PO BID PRN menstrual 06/13/24 06/21/24 History iron) tablet (FeroSul) bleeding fluticasone propionate 50 1 spray intranasal DAILY PRN 06/13/24 06/21/24 History mcg/actuation nasal allergy symptoms spray,suspension hydrocodone 7.5 mg-acetaminophen 1 tablet PO TID PRN pain 06/13/24 06/21/24 History 325 mg tablet insulin lispro 100 unit/mL 50 unit subcut TIDWM 06/13/24 06/21/24 History subcutaneous pen metformin 500 mg tablet,extended 500 mg PO BID 06/13/24 06/21/24 History release 24 hr pregabalin 200 mg capsule 200 mg PO DAILY 06/13/24 06/21/24 History progesterone micronized 100 mg 100 mg PO QPM 06/13/24 06/21/24 History capsule blood sugar diagnostic (OneTouch #1 pkg 06/17/24 06/21/24 Rx Verio test strips) blood-glucose meter (OneTouch #1 pkg 06/17/24 06/21/24 Rx Verio Flex Meter) carvedilol 12.5 mg tablet (Coreg) 12.5 mg PO Q12HR #60 tabs 06/17/24 06/21/24 Rx hydrochlorothiazide 25 mg tablet 25 mg PO QAM #30 tabs 06/17/24 06/21/24 Rx insulin glargine 100 unit/mL (3 24 unit (0.24 mL) subcut QPM #15 mL 06/17/24 06/21/24 Rx mL) subcutaneous pen (Lantus Solostar U-100 Insulin) insulin syringe,safety needle 0.5 #1 pkg 06/17/24 06/21/24 Rx mL 31 gauge x 5/16 insulin syringe,safety needle 1 mL #1 pkg 06/17/24 06/21/24 Rx 32 gauge x 5/16 lancets 30 gauge (OneTouch Delica #1 pkg 06/17/24 06/21/24 Rx Plus Lancet) lisinopril 20 mg tablet 40 mg (2 x 20 mg) PO QAM #60 tabs 06/17/24 06/21/24 Rx pen needle, diabetic 32 gauge x #1 pkg 06/17/24 06/21/24 Rx 1/4 pen needle, diabetic 32 gauge x #1 pkg 06/17/24 06/21/24 Rx potassium chloride 10 mEq 10 meq PO BIDWM #60 tabs 06/17/24 06/21/24 Rx tablet,extended release Laboratory Tests 06/23/24 06/23/24 06/23/24 11:42 15:32 16:59 WBC RBC Hgb Hct MCV MCH MCHC RDW Plt Count MPV Immature Gran % (Auto) Neut % (Auto) Lymph % (Auto) [place] % (Auto) Eos % (Auto) Baso % (Auto) Lymph # (Auto) [place] # (Auto) Eos # (Auto) Baso # (Auto) Abs Immat Gran (auto) Absolute Neuts (auto) Absolute Nucleated RBC Nucleated RBC % Sodium Potassium 2.9 L mmol/L (3.4-5.0) Chloride Carbon Dioxide Anion Gap BUN Creatinine Estim Creat Clear Calc Estimated GFR Glucose POC Capillary Glucose 268 H mg/dl 239 H mg/dl (65-105) (65-105) Calcium Total Bilirubin AST ALT Alkaline Phosphatase Total Protein Albumin 06/23/24 06/24/24 06/24/24 21:00 06:06 08:09 WBC 14.4 H K/mm3 (4.5-10.0) RBC 5.79 H M/mm3 (4.2-5.4) Hgb 16.0 H g/dL (12.0-15.0) Hct 48.9 H % (37.0-47.0) MCV 84.5 fl (80-100) MCH 27.6 pg (26-34) MCHC 32.7 g/dl (32-36) RDW 13.6 % (11.5-14.5) Plt Count 329 k/mm3 (150-375) MPV 10.2 fl (7.4-10.4) Immature Gran % (Auto) 0.3 % (0-0.5) Neut % (Auto) 66.3 % (45.5-73.1) Lymph % (Auto) 23.2 % (18.3-44.2) [place] % (Auto) 9.7 H % (2.6-8.5) Eos % (Auto) 0.1 % (0-4.4) Baso % (Auto) 0.4 % (0.2-1.2) Lymph # (Auto) 3.35 H K/mm3 (0.9-3.2) [place] # (Auto) 1.4 H K/mm3 (0.1-0.6) Eos # (Auto) 0.0 K/mm3 (0-0.3) Baso # (Auto) 0.1 K/mm3 (0.0-0.1) Abs Immat Gran (auto) 0.04 H K/mm3 (0.00-0.031) Absolute Neuts (auto) 9.6 H K/mm3 (1.3-6.7) Absolute Nucleated RBC 0.000 K/mm3 (0.0-0.012) Nucleated RBC % 0.0 % (0.0-0.2) Sodium 140 mmol/L (137-145) Potassium 3.1 L mmol/L (3.4-5.0) Chloride 106 mmol/L (98-107) Carbon Dioxide 21 L mmol/L (22-30) Anion Gap 13 H mmol/L (4-12) BUN 13 mg/dL (7-17) Creatinine 0.66 L mg/dL (0.7-1.0) Estim Creat Clear Calc 100 ml/min Estimated GFR > 60 (59 - ) Glucose 291 H mg/dL (65-110) POC Capillary Glucose 258 H mg/dl 285 H mg/dl (65-105) (65-105) Calcium 9.3 mg/dL (8.4-10.2) Total Bilirubin 1.1 mg/dL (0.2-1.3) AST 32 U/L (14-36) ALT 35 U/L (6-35) Alkaline Phosphatase 97 U/L (38-126) Total Protein 8.0 g/dL (6.3-8.2) Albumin 4.6 g/dL (3.5-5.1) 06/24/24 09:48 WBC RBC Hgb Hct MCV MCH MCHC RDW Plt Count MPV Immature Gran % (Auto) Neut % (Auto) Lymph % (Auto) [place] % (Auto) Eos % (Auto) Baso % (Auto) Lymph # (Auto) [place] # (Auto) Eos # (Auto) Baso # (Auto) Abs Immat Gran (auto) Absolute Neuts (auto) Absolute Nucleated RBC Nucleated RBC % Sodium Potassium Chloride Carbon Dioxide Anion Gap BUN Creatinine Estim Creat Clear Calc Estimated GFR Glucose POC Capillary Glucose 257 H mg/dl (65-105) Calcium Total Bilirubin AST ALT Alkaline Phosphatase Total Protein Albumin Patient hx anesthesia problems: none Family hx anesthesia problems: none Results Review: All pre-operative results and documents have been reviewed as part of the pre-operative evaluation. [facility] Past Medical History Medical History (Updated 06/23/24 @ 07:37 by Jean Ellison PA-C) Lower extremity edema Dyspnea on exertion Pneumonia Rheumatoid arthritis (normal spontaneous vaginal delivery) x2 Status post hysteroscopy 2015 and 2020 Asthma Obesity Iron deficiency anemia Elective Anxiety and depression GERD (gastroesophageal reflux disease) HTN (hypertension) High triglycerides HLD (hyperlipidemia) Diabetes Surgical History Surgical History S/P endometrial ablation 2017 Family History Family History Mother Atrial fibrillation History of open heart surgery Family history of cataracts Hypertension Asthma Grandparent Family history of cardiovascular disease Family history of Alzheimer's disease Family history of coronary artery disease Heart murmur Sibling Heart murmur Social History Social History Smoking packs per day: 1 Smoking cigarettes per day: 20.0 Years smoked: 20 Smoking pack-years: 20.00 Smoking status: Former smoker Tobacco type: cigarettes Smoking end date: 02/16/02 Alcohol intake: never Drinks per week: 2 Substance use: never Substance use type: marijuana Do You Feel Safe in your Home?: Yes Lack of Transportation: No Lack of Food: Never True Current Housing: I Have Housing Concerned About Future Housing: No Difficulty Paying Gas/Electric Bills: No Difficulty Paying for Meds: No Currently Unemployed: No Education: High School Diploma/GED Difficulty w/ Childcare or Family Care: No Living arrangements: alone Gender identity (if verbalized by the patient): Female Spiritual care concerns: No Agree to blood products: Yes Anes - Eval Final PreProcedure Day of Procedure 06/24/24 10:18 Patient weight: obese Heart: regular rate and rhythm Lungs: clear to auscultation Airway: Mallampati scale class III Neurological: alert and oriented Last oral intake: >/= 8 hours ASA classification: III Emergent: no Anesthetic plan: proceed Anesthesia type and monitoring: general GIVS and standard monitoring Results Review: All pre-operative results and documents have been reviewed as part of the pre-operative evaluation. Informed Consent: The patient's anesthetic plan and its attendant risks and benefits were discussed with the patient/family/POA. Questions were solicited and answers provided to the satisfaction of the patient/family/POA.
[2024-06-24 10:34] LABS: Glucose Point of Care 258 mg/dl (65-105)
[2024-06-24] MEDS: hydrALAZINE HCL 20 MG/ML VIAL 10 MG IV PUSH (10:46)
[2024-06-24 11:41] LABS: Glucose Point of Care 267 mg/dl (65-105)
[2024-06-24] MEDS: SUCRALFATE SUSP 100 MG/ML 10 ML UDC 1000 MG PO ×3 (13:17→20:38)
[2024-06-24 16:46] LABS: Glucose Point of Care 217 mg/dl (65-105)
[2024-06-24] MEDS: PROCHLORPERAZINE EDISYLATE 10 MG/2 ML VIAL IV PUSH (17:26)
[2024-06-24 23:36] LABS: Glucose Point of Care 216 mg/dl (65-105)
[2024-06-25] VITALS (11 sets, daily range): BP systolic 123–153; BP diastolic 75–87; PULSE 101–165; RESP 16–20; TEMP 36.3–36.6; O2SAT 97–100
[2024-06-25] MEDS: PROCHLORPERAZINE EDISYLATE 10 MG/2 ML VIAL IV PUSH ×3 (00:25→18:10)
[2024-06-25] MEDS: ONDANSETRON INJ 4 MG/2 ML VIAL IV PUSH ×2 (03:58→12:20)
[2024-06-25] MEDS: METOPROLOL TARTRATE INJ 5 MG/5 ML VIAL IV PUSH ×2 (05:41→20:55)
[2024-06-25] MEDS: SUCRALFATE SUSP 100 MG/ML 10 ML UDC 1000 MG PO ×4 (05:41→21:04)
[2024-06-25 05:49] LABS: Basophils Absolute Auto 0.1 K/mm3 (0.0-0.1); Basophils Percent Auto 0.4 % (0.2-1.2); Eosinophils Absolute Auto 0.1 K/mm3 (0-0.3); Eosinophils Percent Auto 0.6 % (0-4.4); Hematocrit 47.8 % (37.0-47.0); Hemoglobin 16.4 g/dL (12.0-15.0); Immature Granulocyte Absolute 0.06 K/mm3 (0.00-0.031); Immature Granulocyte Percent A 0.4 % (0-0.5); Lymphocytes Absolute Auto 3.54 K/mm3 (0.9-3.2); Lymphocytes Percent Auto 25.4 % (18.3-44.2); Mean Corpuscular HGB Conc 34.3 g/dl (32-36); Mean Corpuscular Hemoglobin 28.3 pg (26-34); Mean Corpuscular Volume 82.6 fl (80-100); Mean Platelet Volume 10.5 fl (7.4-10.4); Monocytes Absolute Auto 1.3 K/mm3 (0.1-0.6); Monocytes Percent Auto 9.4 % (2.6-8.5); Neutrophils Absolute Auto 8.9 K/mm3 (1.3-6.7); Neutrophils Percent Auto 63.8 % (45.5-73.1); Platelet Count Result 301 k/mm3 (150-375); Red Blood Count 5.79 M/mm3 (4.2-5.4); Red Cell Distribution Width 13.5 % (11.5-14.5)
[2024-06-25 06:13] LABS: Alanine Aminotransferase 33 U/L (6-35); Albumin Level 4.4 g/dL (3.5-5.1); Alkaline Phosphatase 87 U/L (38-126); Anion Gap 14 mmol/L (4-12); Aspartate Amino Transferase 32 U/L (14-36); Blood Urea Nitrogen 15 mg/dL (7-17); Calcium 9.3 mg/dL (8.4-10.2); Carbon Dioxide 19 mmol/L (22-30); Chloride 104 mmol/L (98-107); Estimated CRCL calculation 104 ml/min; Estimated Glomerular Filt Rate > 60; Glucose 251 mg/dL (65-110); Potassium 2.6 mmol/L (3.4-5.0); Sodium 137 mmol/L (137-145)
--- NOTE | 2024-06-25 06:18 | PC.NURSE ---
Spoke with Kaley in lab; request magnesium to be added to morning labs.
[2024-06-25 06:50] LABS: Magnesium 1.3 mg/dL (1.6-2.3)
--- NOTE | 2024-06-25 07:37 | P.PNIM_ITS ---
Progress Note: A&P Assessment and Plan (1) Sepsis: Code(s): A41.9 - Sepsis, unspecified organism Status: Acute Assessment and Plan: Meets SIRS criteria: Tachycardia, Leukocytosis - lactic acid: pending - suspected source: unknown - blood cultures drawn on 06/23 - UA: 3+ protein, 1+ glucose, 2+ ketones, 1+ blood - CXR: No acute cardiopulmonary disease. - Preliminary blood cultures negative - Tachycardia and tachypnea likely some component of anxiety - Sepsis unlikely (2) Intractable nausea and vomiting: Code(s): R11.2 - Nausea with vomiting, unspecified Status: Acute Assessment and Plan: * CT Abd/pelvis without acute findings * Antiemetics, IVFs * NPO, continue holding medications * Continue Protonix 40 mg daily * Elevated gap and beta hydroxybutyrate however pH is 7.434. She is not acidotic. * IV Compazine q.6 p.r.n. * EGD report: Reflux esophagitis, grade 1. Mild gastritis in antrum. Multiple biopsies taken * Nausea continues to improve today, no dry heaving today (3) Dehydration: Code(s): E86.0 - Dehydration Status: Acute Assessment and Plan: * In ED: K=3.0, likely secondary to vomiting. Will supp as needed * Continue to trend AM labs (4) Hypokalemia: Code(s): E87.6 - Hypokalemia Status: Acute Assessment and Plan: * In ED: 3.6 * Likely secondary to continuous Vomiting and associated nausea. * Continue to monitor and supplement as needed * 06/25: K 2.6 * IV Continuous potassium/sodium chloride ordered 06/23 * Will give additional PO K as well as K rider (5) Insulin dependent diabetes mellitus: Status: Chronic Assessment and Plan: * Continue to hold oral hypoglycemic meds * Sliding scale insulin * Hypoglycemic protocol * Accu-Cheks a.c. and HS * A1c 7.2% (6) HLD (hyperlipidemia): Code(s): E78.5 - Hyperlipidemia, unspecified Status: Chronic Assessment and Plan: * Continue medications once confirmed and can tolerate * Currently NPO, admits to heart healthy diet when able to tolerate p.o. intake (7) Diastolic dysfunction: Code(s): I51.89 - Other ill-defined heart diseases Status: Chronic Assessment and Plan: * Daily weight * Accurate intake and output * Patient currently appears euvolemic * Pt denies CP/SOB/cough (8) HTN (hypertension): Code(s): I10 - Essential (primary) hypertension Status: Chronic Assessment and Plan: * Currently NPO, Holding oral meds * IV hydralazine ordered with parameters. Telemetry -94 bpm (9) Anxiety and depression: Code(s): F41.9 - Anxiety disorder, unspecified; F32.9 - Major depressive disorder, single episode, unspecified Status: Chronic Assessment and Plan: * Continue home medications when confirmed and can tolerate Plan -Continue with IVF and antiemetics Subjective Date/time seen: 06/25/24 07:37 Interval history: 63-year-old female patient with history of heart failure, rheumatoid arthritis, asthma, BC, anxiety, depression, GERD, hypertension, hyperlipidemia and type 2 diabetes mellitus comes to the emergency room today with acute onset of nausea and vomiting. 06/25/2024 Patient sitting comfortably in bed at time of exam. Denies some nausea but no episodes of vomiting or dry heaving today. Potassium low again today at 2.6, will add another K rider plus 40 meq PO K. Otherwise physical exam is benign and pt has no complaints. Review of Systems Review of Systems: All systems reviewed & are unremarkable except as noted in HPI and below Gastrointestinal: Gastrointestinal: Reports abdominal pain (mild RLQ), Denies diarrhea, Reports nausea and Reports vomiting Exam Const: General: no acute distress Other: Ill appearing, obese. HENMT: Face/Nose/Sinus: Normal nares present Mouth: Yes dry mucous membranes Eyes: General: appearance normal, both eyes and all related structures Sclera: sclerae normal Neck: Neck: supple and no JVD Chest: Other: Nontender Resp: Effort & Inspection: normal respiratory effort Auscultation: clear to auscultation bilaterally Cardio: Rate: regular rate Rhythm: regular rhythm Heart sounds: no gallops, Murmur heart sound present (Grade 2 systolic) and no rubs GI: Inspection: non-distended Auscultation: normal bowel sounds Other: No tenderness to palpation, no guarding Skin: General skin exam: normal color, no rashes or lesions noted, No lesion and No rashes Lesions: no lesions noted Rashes: no rashes noted Wounds: no wounds Neuro: General: gait normal Speech: normal speech Motor exam (neuro): 5/5 motor strength present throughout and Normal motor muscle tone present throughout Sensory Exam: normal sensation Extrem: General: normal to inspection, no edema and no pedal edema Psych: Mental Status: mental status grossly normal Affect: normal affect and Hostile affect present Other: Patient obviously upset that I will not allow her to have ice chips as she rolls her eyes at me Objective Data Vital Signs Vital Signs: Vital Signs - 24 hr 06/24/24 09:10 06/24/24 09:10 06/24/24 09:55 Temperature 97.3 F L Pulse Rate 112 H 107 H Respiratory Rate 20 Blood Pressure 180/102 H Pulse Oximetry 100 99 Oxygen Delivery Room Air Room Air 06/24/24 10:22 06/24/24 10:32 06/24/24 10:42 Temperature Pulse Rate 96 92 94 Respiratory Rate 23 H 22 H 24 H Blood Pressure 103/68 128/87 186/104 H Pulse Oximetry 95 97 97 Oxygen Delivery Room Air Room Air Room Air 06/24/24 10:54 06/24/24 12:00 06/24/24 14:00 Temperature 97.1 F L Pulse Rate 107 H 108 H 110 H Respiratory Rate 23 H 18 Blood Pressure 164/94 H 179/84 H Pulse Oximetry 100 Oxygen Delivery Room Air 06/24/24 16:00 06/24/24 17:25 06/24/24 20:00 Temperature Pulse Rate 104 H 112 H 112 H Respiratory Rate 18 Blood Pressure Pulse Oximetry 96 Oxygen Delivery Room Air 06/24/24 20:00 06/24/24 22:00 06/25/24 00:00 Temperature 97.6 F Pulse Rate 103 H 112 H 104 H Respiratory Rate 18 Blood Pressure 156/87 H Pulse Oximetry 96 Oxygen Delivery 06/25/24 04:00 06/25/24 04:10 06/25/24 05:41 Temperature 97.3 F L Pulse Rate 101 H 112 H 120 H Respiratory Rate 16 Blood Pressure 146/81 H Pulse Oximetry 100 Oxygen Delivery Intake/Output Intake/Output: Intake & Output 06/22/24 06/23/24 06/24/24 06/25/24 23:59 23:59 23:59 23:59 Intake Total 3020.0 2535 2680 750 Output Total 2 Balance 3020.0 2533 2680 750 Meds/Results Medications: Active Medications Generic Name Dose Route Start Last Admin Trade Name Freq PRN Reason Stop Dose Admin Dextrose 12.5 gm 06/21/24 02:12 Dextrose 50% 25 Gm/50 Ml Syringe IV PUSH PRN PRN Hypoglycemia Protocol Glucagon 1 mg 06/21/24 02:12 Glucagon For Inj 1 Mg Vial IM PRN PRN Hypoglycemia Protocol Glucose 15 gm 06/21/24 02:12 Glucose Oral Gel 15 Gm Of Glucse In 37.5 Gm Tube PO PRN PRN Hypoglycemia Protocol Hydralazine HCl 10 mg 06/21/24 02:12 06/24/24 10:46 Hydralazine Hcl 20 Mg/Ml Vial IV PUSH 10 mg Q8H PRN Administration Blood Pressure - High Dextrose 1,000 mls @ 100 mls/hr 06/21/24 02:12 Dextrose 5% 1,000 Ml IVPB PRN PRN Hypoglycemia Protocol Potassium Chloride/Sodium Chloride 1,000 mls @ 100 mls/hr 06/23/24 11:45 06/25/24 04:02 Kcl 20 Meq/Ns IV CONT Not Given .Q10H [facility] Potassium Chloride 40 meq/ 520 mls @ 130 mls/hr 06/25/24 06:45 Sodium Chloride IVPB 06/25/24 10:44 ONCE ONE Insulin Aspart 2 - 5 units 06/21/24 08:00 06/24/24 17:29 Insulin Aspart (*Bkc) 100 Units/Ml SUB-Q 2 units TIDWM [facility] Administration Protocol Insulin Aspart 1 - 2 units 06/21/24 21:00 06/24/24 22:36 Insulin Aspart (*Bkc) 100 Units/Ml SUB-Q 1 units HS [facility] Administration Protocol Magnesium Chloride 64 mg 06/25/24 09:00 Magnesium Chloride 64 [facility] [place] 5 mg 06/22/24 23:32 06/25/24 05:41 Metoprolol Tartrate Inj 5 Mg/5 Ml Vial IV PUSH 5 mg Q8HR PRN Administration Heart Rate- High Ondansetron HCl 4 mg 06/21/24 02:08 06/25/24 03:58 Ondansetron Inj 4 Mg/2 Ml Vial IV PUSH 4 mg Q6HR PRN Administration Nausea And Vomiting Pantoprazole Sodium 40 mg 06/25/24 09:00 Pantoprazole 40 Mg Tablet PO QAM JUDITH Prochlorperazine Edisylate 10 mg 06/23/24 11:14 06/25/24 00:25 Prochlorperazine Edisylate 10 Mg/2 Ml Vial IV PUSH 10 mg Q6H PRN Administration Nausea And Vomiting Sucralfate 1,000 mg 06/23/24 06:30 06/25/24 05:41 Sucralfate Susp 100 Mg/Ml 10 Ml Udc PO 1,000 mg ACHS JUDITH Administration Radiology Results: ITS Impressions Abdomen/Pelvis CT 06/20/24 23:57 IMPRESSION: Redemonstration of a chronic mass within the body of the uterus distorting the endometrial canal, unchanged dating back to 2015. Hepatomegaly with borderline splenomegaly. Chest X-Ray 06/23/24 09:37 IMPRESSION: 1. No acute cardiopulmonary disease. Labs Labs: Laboratory Results - last 24 hr 06/24/24 06/24/24 06/24/24 08:09 09:48 10:32 WBC RBC Hgb Hct MCV MCH MCHC RDW Plt Count MPV Immature Gran % (Auto) Neut % (Auto) Lymph % (Auto) [place] % (Auto) Eos % (Auto) Baso % (Auto) Lymph # (Auto) [place] # (Auto) Eos # (Auto) Baso # (Auto) Abs Immat Gran (auto) Absolute Neuts (auto) Absolute Nucleated RBC Nucleated RBC % Sodium Potassium Chloride Carbon Dioxide Anion Gap BUN Creatinine Estim Creat Clear Calc Estimated GFR Glucose POC Capillary Glucose 285 H 257 H 258 H Calcium Magnesium Total Bilirubin AST ALT Alkaline Phosphatase Total Protein Albumin 06/24/24 06/24/24 06/24/24 11:31 16:40 22:06 WBC RBC Hgb Hct MCV MCH MCHC RDW Plt Count MPV Immature Gran % (Auto) Neut % (Auto) Lymph % (Auto) [place] % (Auto) Eos % (Auto) Baso % (Auto) Lymph # (Auto) [place] # (Auto) Eos # (Auto) Baso # (Auto) Abs Immat Gran (auto) Absolute Neuts (auto) Absolute Nucleated RBC Nucleated RBC % Sodium Potassium Chloride Carbon Dioxide Anion Gap BUN Creatinine Estim Creat Clear Calc Estimated GFR Glucose POC Capillary Glucose 267 H 217 H 216 H Calcium Magnesium Total Bilirubin AST ALT Alkaline Phosphatase Total Protein Albumin 06/25/24 06/25/24 05:23 05:24 WBC 14.0 H RBC 5.79 H Hgb 16.4 H Hct 47.8 H MCV 82.6 MCH 28.3 MCHC 34.3 RDW 13.5 Plt Count 301 MPV 10.5 H Immature Gran % (Auto) 0.4 Neut % (Auto) 63.8 Lymph % (Auto) 25.4 [place] % (Auto) 9.4 H Eos % (Auto) 0.6 Baso % (Auto) 0.4 Lymph # (Auto) 3.54 H [place] # (Auto) 1.3 H Eos # (Auto) 0.1 Baso # (Auto) 0.1 Abs Immat Gran (auto) 0.06 H Absolute Neuts (auto) 8.9 H Absolute Nucleated RBC 0.000 Nucleated RBC % 0.0 Sodium 137 Potassium 2.6 L* Chloride 104 Carbon Dioxide 19 L Anion Gap 14 H BUN 15 Creatinine 0.63 L Estim Creat Clear Calc 104 Estimated GFR > 60 Glucose 251 H POC Capillary Glucose Calcium 9.3 Magnesium 1.3 L Total Bilirubin 1.0 AST 32 ALT 33 Alkaline Phosphatase 87 Total Protein 8.0 Albumin 4.4 Quality VTE Prophylaxis VTE prophylaxis: mechanical ordered
[2024-06-25 07:54] LABS: Glucose Point of Care 258 mg/dl (65-105)
[2024-06-25] MEDS: POTASSIUM CHLORIDE INJ 40 MEQ in SODIUM CHLORIDE 0.9% IV 500 ML 130 MEQ IVPB (08:20)
[2024-06-25] MEDS: INSULIN ASPART (*BKC) 100 UNITS/ML SUB-Q ×3 (08:21→21:04)
[2024-06-25] MEDS: MAGNESIUM CHLORIDE 64 MG TABLET PO (08:46)
[2024-06-25] MEDS: PANTOPRAZOLE 40 MG TABLET PO (08:46)
[2024-06-25 11:56] LABS: Glucose Point of Care 235 mg/dl (65-105)
--- NOTE | 2024-06-25 11:57 | P.PNGI_ITS ---
Progress Note: A&P Assessment and Plan (1) Intractable nausea and vomiting: Code(s): R11.2 - Nausea with vomiting, unspecified Status: Acute Assessment and Plan: still nauseous but this has improved egd with only mild gastritis and mild esophagitis ct scan only fatty liver and small size hiatal hernia correcting hypokalemia on ppi daily (2) Epigastric pain: Code(s): R10.13 - Epigastric pain Status: Acute Assessment and Plan: medical treatment ct scan reviewed liver enzymes normal mild gastritis (3) GERD (gastroesophageal reflux disease): Qualifiers: Esophagitis presence: esophagitis presence not specified Qualified Code(s): K21.9 - Gastro-esophageal reflux disease without esophagitis Code(s): K21.9 - Gastro-esophageal reflux disease without esophagitis Status: Acute (4) Anxiety and depression: Code(s): F41.9 - Anxiety disorder, unspecified; F32.9 - Major depressive disorder, single episode, unspecified Status: Chronic (5) Diabetes: Qualifiers: Diabetes mellitus type: type 1 Diabetes mellitus complication status: without complication Qualified Code(s): E10.9 - Type 1 diabetes mellitus without complications Code(s): E11.9 - Type 2 diabetes mellitus without complications Status: Acute Subjective Date/time seen: 06/25/24 11:57 Interval history: egd with only mild gastritis and esophagitis still with poor appetite and nausea low K again Review of Systems Review of Systems: All systems reviewed & are unremarkable except as noted in HPI and below Exam Const: General: no acute distress HENMT: Face/Nose/Sinus: Normal nares present Mouth: Yes dry mucous membranes Eyes: General: appearance normal, both eyes and all related structures Sclera: sclerae normal Neck: Neck: supple Chest: Other: Nontender Resp: Effort & Inspection: normal respiratory effort Auscultation: clear to auscultation bilaterally Cardio: Rate: regular rate Rhythm: regular rhythm GI: Inspection: non-distended GI Palp: No Guarding due to palpation present (GI) Auscultation: normal bowel sounds Skin: General skin exam: normal color and no rashes or lesions noted Neuro: Speech: normal speech Motor exam (neuro): 5/5 motor strength present throughout Extrem: General: normal to inspection Psych: Affect: Anxious affect present Objective Data Vital Signs Vital Signs: Vital Signs - 24 hr 06/24/24 12:00 06/24/24 14:00 06/24/24 16:00 Temperature 97.1 F L Pulse Rate 108 H 110 H 104 H Respiratory Rate 18 Blood Pressure 179/84 H Pulse Oximetry Oxygen Delivery 06/24/24 17:25 06/24/24 20:00 06/24/24 20:00 Temperature Pulse Rate 112 H 112 H 103 H Respiratory Rate 18 Blood Pressure Pulse Oximetry 96 Oxygen Delivery Room Air 06/24/24 22:00 06/25/24 00:00 06/25/24 04:00 Temperature 97.6 F Pulse Rate 112 H 104 H 101 H Respiratory Rate 18 Blood Pressure 156/87 H Pulse Oximetry 96 Oxygen Delivery 06/25/24 04:10 06/25/24 05:41 Temperature 97.3 F L Pulse Rate 112 H 120 H Respiratory Rate 16 Blood Pressure 146/81 H Pulse Oximetry 100 Oxygen Delivery Intake/Output Intake/Output: Intake & Output 06/22/24 06/23/24 06/24/24 06/25/24 23:59 23:59 23:59 23:59 Intake Total 3020.0 2535 2680 1130 Output Total 2 Balance 3020.0 2533 2680 1130 Meds/Results Medications: Active Medications Generic Name Dose Route Start Last Admin Trade Name Freq PRN Reason Stop Dose Admin Dextrose 12.5 gm 06/21/24 02:12 Dextrose 50% 25 Gm/50 Ml Syringe IV PUSH PRN PRN Hypoglycemia Protocol Glucagon 1 mg 06/21/24 02:12 Glucagon For Inj 1 Mg Vial IM PRN PRN Hypoglycemia Protocol Glucose 15 gm 06/21/24 02:12 Glucose Oral Gel 15 Gm Of Glucse In 37.5 Gm Tube PO PRN PRN Hypoglycemia Protocol Hydralazine HCl 10 mg 06/21/24 02:12 06/24/24 10:46 Hydralazine Hcl 20 Mg/Ml Vial IV PUSH 10 mg Q8H PRN Administration Blood Pressure - High Dextrose 1,000 mls @ 100 mls/hr 06/21/24 02:12 Dextrose 5% 1,000 Ml IVPB PRN PRN Hypoglycemia Protocol Potassium Chloride/Sodium Chloride 1,000 mls @ 100 mls/hr 06/23/24 11:45 06/25/24 04:02 Kcl 20 Meq/Ns IV CONT Not Given .Q10H JUDITH Insulin Aspart 2 - 5 units 06/21/24 08:00 06/25/24 08:21 Insulin Aspart (*Bkc) 100 Units/Ml SUB-Q 3 units TIDWM [facility] Administration Protocol Insulin Aspart 1 - 2 units 06/21/24 21:00 06/24/24 22:36 Insulin Aspart (*Bkc) 100 Units/Ml SUB-Q 1 units HS [facility] Administration Protocol Magnesium Chloride 64 mg 06/25/24 09:00 06/25/24 08:46 Magnesium Chloride 64 Mg Tablet PO 64 mg QAM [facility] Administration Metoprolol Tartrate 5 mg 06/22/24 23:32 06/25/24 05:41 Metoprolol Tartrate Inj 5 Mg/5 Ml Vial IV PUSH 5 mg Q8HR PRN Administration Heart Rate- High Ondansetron HCl 4 mg 06/21/24 02:08 06/25/24 03:58 Ondansetron Inj 4 Mg/2 Ml Vial IV PUSH 4 mg Q6HR PRN Administration Nausea And Vomiting Pantoprazole Sodium 40 mg 06/25/24 09:00 06/25/24 08:46 Pantoprazole 40 Mg Tablet PO 40 mg QAM [facility] Administration Prochlorperazine Edisylate 10 mg 06/23/24 11:14 06/25/24 08:47 Prochlorperazine Edisylate 10 Mg/2 Ml Vial IV PUSH 10 mg Q6H PRN Administration Nausea And Vomiting Sucralfate 1,000 mg 06/23/24 06:30 06/25/24 05:41 Sucralfate Susp 100 Mg/Ml 10 Ml Udc PO 1,000 mg ACHS [facility] Administration Radiology Results: ITS Impressions Abdomen/Pelvis CT 06/20/24 23:57 IMPRESSION: Redemonstration of a chronic mass within the body of the uterus distorting the endometrial canal, unchanged dating back to 2016. Hepatomegaly with borderline splenomegaly. Chest X-Ray 06/23/24 09:37 IMPRESSION: 1. No acute cardiopulmonary disease. Labs Labs: Laboratory Results - last 24 hr 06/24/24 06/24/24 06/25/24 16:40 22:06 05:23 WBC RBC Hgb Hct MCV MCH MCHC RDW Plt Count MPV Immature Gran % (Auto) Neut % (Auto) Lymph % (Auto) Stanley % (Auto) Eos % (Auto) Baso % (Auto) Lymph # (Auto) Stanley # (Auto) Eos # (Auto) Baso # (Auto) Abs Immat Gran (auto) Absolute Neuts (auto) Absolute Nucleated RBC Nucleated RBC % Sodium Potassium Chloride Carbon Dioxide Anion Gap BUN Creatinine Estim Creat Clear Calc Estimated GFR Glucose POC Capillary Glucose 217 H 216 H Calcium Magnesium 1.3 L Total Bilirubin AST ALT Alkaline Phosphatase Total Protein Albumin 06/25/24 06/25/24 06/25/24 05:24 07:49 11:53 WBC 14.0 H RBC 5.79 H Hgb 16.4 H Hct 47.8 H MCV 82.6 MCH 28.3 MCHC 34.3 RDW 13.5 Plt Count 301 MPV 10.5 H Immature Gran % (Auto) 0.4 Neut % (Auto) 63.8 Lymph % (Auto) 25.4 Stanley % (Auto) 9.4 H Eos % (Auto) 0.6 Baso % (Auto) 0.4 Lymph # (Auto) 3.54 H Stanley # (Auto) 1.3 H Eos # (Auto) 0.1 Baso # (Auto) 0.1 Abs Immat Gran (auto) 0.06 H Absolute Neuts (auto) 8.9 H Absolute Nucleated RBC 0.000 Nucleated RBC % 0.0 Sodium 137 Potassium 2.6 L* Chloride 104 Carbon Dioxide 19 L Anion Gap 14 H BUN 15 Creatinine 0.63 L Estim Creat Clear Calc 104 Estimated GFR > 60 Glucose 251 H POC Capillary Glucose 258 H 235 H Calcium 9.3 Magnesium Total Bilirubin 1.0 AST 32 ALT 33 Alkaline Phosphatase 87 Total Protein 8.0 Albumin 4.4
[2024-06-25] MEDS: POTASSIUM CHLORIDE 20 MEQ ER TABLET 40 MEQ PO (14:19)
[2024-06-25 16:44] LABS: Glucose Point of Care 200 mg/dl (65-105)
[2024-06-25 17:07] LABS: Potassium 3.2 mmol/L (3.4-5.0)
[2024-06-25] MEDS: metFORMIN HCL XR 500 MG TAB.SR.24H PO (18:10)
[2024-06-25] MEDS: INSULIN GLARGINE (*BKC) 100 UNITS/ML 24 UNITS SUB-Q ×2 (18:19→21:05)
[2024-06-25] MEDS: MAGNESIUM SULFATE 3GM/D5W100ML 3 GM/100 ML BAG IVPB (20:59)
[2024-06-25] MEDS: traZODone HCL 50 MG TABLET PO (21:08)
[2024-06-25] MEDS: FLUTICASONE/SALMETEROL 230-21 MCG INHALER 1 PUFF 2 PUFF INHALATION (22:39)
--- NOTE | 2024-06-25 22:39 | PCRCNOTE ---
1999 tx triaged due to OB intubation
[2024-06-26] VITALS (12 sets, daily range): BP systolic 95–148; BP diastolic 58–71; PULSE 90–127; RESP 16–18; TEMP 36.6–36.8; O2SAT 97–99
[2024-06-26] MEDS: CYCLOBENZAPRINE HCL 5 MG TABLET PO (00:17)
[2024-06-26] MEDS: ONDANSETRON INJ 4 MG/2 ML VIAL IV PUSH ×2 (02:39→17:21)
[2024-06-26] MEDS: SUCRALFATE SUSP 100 MG/ML 10 ML UDC 1000 MG PO ×4 (05:32→21:47)
[2024-06-26] MEDS: PROCHLORPERAZINE EDISYLATE 10 MG/2 ML VIAL IV PUSH (05:34)
[2024-06-26 06:19] LABS: Glucose Point of Care 276 mg/dl (65-105)
[2024-06-26 07:57] LABS: Anion Gap 15 mmol/L (4-12); Blood Urea Nitrogen 15 mg/dL (7-17); Calcium 9.1 mg/dL (8.4-10.2); Carbon Dioxide 17 mmol/L (22-30); Chloride 106 mmol/L (98-107); Estimated CRCL calculation 103 ml/min; Estimated Glomerular Filt Rate > 60; Glucose 214 mg/dL (65-110); Potassium 3.2 mmol/L (3.4-5.0); Sodium 138 mmol/L (137-145)
--- NOTE | 2024-06-26 08:06 | P.PNIM_ITS ---
Progress Note: A&P Assessment and Plan (1) Sepsis: Code(s): A41.9 - Sepsis, unspecified organism Status: Acute Assessment and Plan: Meets SIRS criteria: Tachycardia, Leukocytosis - lactic acid: pending - suspected source: unknown - blood cultures drawn on 06/23 - UA: 3+ protein, 1+ glucose, 2+ ketones, 1+ blood - CXR: No acute cardiopulmonary disease. - Preliminary blood cultures negative - Tachycardia and tachypnea likely some component of anxiety - Sepsis unlikely (2) Intractable nausea and vomiting: Code(s): R11.2 - Nausea with vomiting, unspecified Status: Acute Assessment and Plan: * CT Abd/pelvis without acute findings * Antiemetics, IVFs * NPO, continue holding medications * Continue Protonix 40 mg daily * Elevated gap and beta hydroxybutyrate however pH is 7.434. She is not acidotic. * IV Compazine q.6 p.r.n. * EGD report: Reflux esophagitis, grade 1. Mild gastritis in antrum. Multiple biopsies taken * Nausea continues to improve today, states today has been best day since arrival (3) Dehydration: Code(s): E86.0 - Dehydration Status: Acute Assessment and Plan: * In ED: K=3.0, likely secondary to vomiting. Will supp as needed * Continue to trend AM labs * Monitor kidney function * IVF for rehydration (4) Hypokalemia: Code(s): E87.6 - Hypokalemia Status: Acute Assessment and Plan: * In ED: 3.6 * Likely secondary to continuous Vomiting and associated nausea. * Continue to monitor and supplement as needed * 06/26: K 3.2 * IV Continuous potassium/sodium chloride ordered 06/23 * Will give additional PO K (5) Insulin dependent diabetes mellitus: Status: Chronic Assessment and Plan: * Continue to hold oral hypoglycemic meds * Sliding scale insulin * Hypoglycemic protocol * Accu-Cheks a.c. and HS * A1c 7.2% (6) HLD (hyperlipidemia): Code(s): E78.5 - Hyperlipidemia, unspecified Status: Chronic Assessment and Plan: * Continue medications once confirmed and can tolerate * Diabetic Consistent Carb diet (7) Diastolic dysfunction: Code(s): I51.89 - Other ill-defined heart diseases Status: Chronic Assessment and Plan: * Daily weight * Accurate intake and output * Patient currently appears euvolemic * Pt denies CP/SOB/cough (8) HTN (hypertension): Code(s): I10 - Essential (primary) hypertension Status: Chronic Assessment and Plan: * Restarting at home medications * IV hydralazine ordered with parameters. Telemetry -118 bpm Restarting Carvedilol, holding metoprolol (9) Anxiety and depression: Code(s): F41.9 - Anxiety disorder, unspecified; F32.9 - Major depressive disorder, single episode, unspecified Status: Chronic Assessment and Plan: * Continue home medications when confirmed and can tolerate Plan -Continue with IVF and antiemetics Subjective Date/time seen: 06/26/24 08:06 Interval history: 63-year-old female patient with history of heart failure, rheumatoid arthritis, asthma, BC, anxiety, depression, GERD, hypertension, hyperlipidemia and type 2 diabetes mellitus comes to the emergency room today with acute onset of nausea and vomiting. 06/26/2024 Patient sitting comfortably in bed at time of exam. Denies some nausea but states it has greatly improved. Potassium low again today at 3.2 but improved from 2.6 yesterday. Will continue with IV fluids to replace K as well as PO K for further supplementation. Otherwise physical exam is benign and pt has no complaints. Switching metoprolol to Carvedilol. Review of Systems Review of Systems: All systems reviewed & are unremarkable except as noted in HPI and below Gastrointestinal: Gastrointestinal: Reports abdominal pain (mild RLQ), Denies diarrhea, Reports nausea and Reports vomiting Exam Const: General: no acute distress Other: Ill appearing, obese. HENMT: Face/Nose/Sinus: Normal nares present Mouth: Yes dry mucous membranes Eyes: General: appearance normal, both eyes and all related structures Sclera: sclerae normal Neck: Neck: supple and no JVD Chest: Other: Nontender Resp: Effort & Inspection: normal respiratory effort Auscultation: clear to auscultation bilaterally Cardio: Rate: regular rate Rhythm: regular rhythm Heart sounds: no gallops, Murmur heart sound present (Grade 2 systolic) and no rubs GI: Inspection: non-distended Auscultation: normal bowel sounds Other: No tenderness to palpation, no guarding Skin: General skin exam: normal color, no rashes or lesions noted, No lesion and No rashes Lesions: no lesions noted Rashes: no rashes noted Wounds: no wounds Neuro: General: gait normal Speech: normal speech Motor exam (neuro): 5/5 motor strength present throughout and Normal motor muscle tone present throughout Sensory Exam: normal sensation Extrem: General: normal to inspection, no edema and no pedal edema Psych: Mental Status: mental status grossly normal Affect: normal affect and Hostile affect present Objective Data Vital Signs Vital Signs: Vital Signs - 24 hr 06/25/24 09:10 06/25/24 14:00 06/25/24 16:00 Temperature 97.8 F Pulse Rate 103 H 120 H Respiratory Rate 18 Blood Pressure 153/87 H Pulse Oximetry 100 97 Oxygen Delivery Room Air 06/25/24 20:00 06/25/24 20:00 06/25/24 20:28 Temperature 97.6 F Pulse Rate 125 H 116 H Respiratory Rate 20 Blood Pressure 123/75 Pulse Oximetry 99 Oxygen Delivery Room Air 06/25/24 20:55 06/26/24 00:00 06/26/24 04:00 Temperature Pulse Rate 165 H 118 H 104 H Respiratory Rate Blood Pressure Pulse Oximetry Oxygen Delivery 06/26/24 04:35 Temperature 97.9 F Pulse Rate 118 H Respiratory Rate 18 Blood Pressure 148/71 H Pulse Oximetry 97 Oxygen Delivery Intake/Output Intake/Output: Intake & Output 06/23/24 06/24/24 06/25/24 06/26/24 23:59 23:59 23:59 23:59 Intake Total 2535 2680 1130 550 Output Total 2 Balance 2533 2680 1130 550 Meds/Results Medications: Active Medications Generic Name Dose Route Start Last Admin Trade Name Freq PRN Reason Stop Dose Admin Albuterol 2.5 mg 06/25/24 14:25 Albuterol Sulfate Neb 2.5 Mg/3 Ml Inh INHALATION Q6H PRN Shortness Of Breath Or Wheezing Aspirin 81 mg 06/26/24 09:00 Aspirin 81 Mg Enteric Tablet PO [facility] Cyclobenzaprine HCl 5 mg 06/25/24 14:25 06/26/24 00:17 Cyclobenzaprine Hcl 5 Mg Tablet PO 5 mg TID PRN Administration muscle pain Dextrose 12.5 gm 06/21/24 02:12 Dextrose 50% 25 Gm/50 Ml Syringe IV PUSH PRN PRN Hypoglycemia Protocol Ergocalciferol 50,000 units 06/27/24 09:00 Ergocalciferol 50,000 Units Capsule PO Mo@0900 JUDITH Famotidine 20 mg 06/25/24 14:25 Famotidine 20 Mg Tablet PO Q12HR PRN acid reflux Ferrous Sulfate 325 mg 06/25/24 14:50 Ferrous Sulfate [address] BY MOUTH BID PRN menstrual bleeding Fluticasone Propionate 1 spray 06/25/24 14:25 Fluticasone Propionate 0.05% Na Spr 16 Gm Btl (*Bkc) NASAL DAILY PRN allergy symptoms Glucagon 1 mg 06/21/24 02:12 Glucagon For Inj 1 Mg Vial IM PRN PRN Hypoglycemia Protocol Glucose 15 gm 06/21/24 02:12 Glucose Oral Gel 15 Gm Of Glucse In 37.5 Gm Tube PO PRN PRN Hypoglycemia Protocol Hydralazine HCl 10 mg 06/21/24 02:12 06/24/24 10:46 Hydralazine Hcl 20 Mg/Ml Vial IV PUSH 10 mg Q8H PRN Administration Blood Pressure - High Dextrose 1,000 mls @ 100 mls/hr 06/21/24 02:12 Dextrose 5% 1,000 Ml IVPB PRN PRN Hypoglycemia Protocol Potassium Chloride/Sodium Chloride 1,000 mls @ 100 mls/hr 06/23/24 11:45 06/26/24 00:07 Kcl 20 Meq/Ns IV CONT Not Given .Q10H [facility] Insulin Aspart 2 - 5 units 06/21/24 08:00 06/25/24 18:13 Insulin Aspart (*Bkc) 100 Units/Ml SUB-Q Not Given TIDWM [facility] Protocol Insulin Aspart 1 - 2 units 06/21/24 21:00 06/25/24 21:04 Insulin Aspart (*Bkc) 100 Units/Ml SUB-Q 1 units HS [facility] Administration Protocol Insulin Glargine 24 units 06/25/24 18:00 06/25/24 21:05 Insulin Glargine (*Bkc) 100 Units/Ml SUB-Q 24 units QPM JUDITH Administration Lisinopril 40 mg 06/26/24 09:00 Lisinopril 20 Mg Tablet PO QAM [facility] Loratadine 10 mg 06/26/24 09:00 Loratadine 10 Mg Tablet PO QAM [facility] Magnesium Chloride 64 mg 06/25/24 09:00 06/25/24 08:46 Magnesium Chloride 64 Mg Tablet PO 64 mg QAM JUDITH Administration Metformin HCl 500 mg 06/25/24 17:00 06/25/24 18:10 Metformin Hcl Xr 500 Mg Tab.Sr.24h PO 500 mg BID JUDITH Administration Metoprolol Tartrate 5 mg 06/22/24 23:32 06/25/24 20:55 Metoprolol Tartrate Inj 5 Mg/5 Ml Vial IV PUSH 5 mg Q8HR PRN Administration Heart Rate- High Miscellaneous Information 1 each 06/25/24 00:01 Rosuvastatin 40 Mg Tablet Weekly Is Unusual Order. Please Clarify Frequency XX 07/25/24 00:00 CLARIFY JUDITH Miscellaneous Information 1 each 06/25/24 00:01 (Insulin Lispro 100 Unit/Ml Insulin Pen) Plase Clarify 50 Units Tid Dose XX 07/25/24 00:00 CLARIFY JUDITH Miscellaneous Information 1 each 06/26/24 00:01 (Insulin Lispro 100 Unit/Ml Insulin Pen) Plase Clarify 50 Units Tid Dose XX 07/26/24 00:00 CLARIFY JUDITH Miscellaneous Information 1 each 06/25/24 00:01 Nonformulary Drug (Progesterone Micronized 100 Mg Capsule) Can Patient Use From Home? XX 07/25/24 00:00 CLARIFY JUDITH Non-Formulary Medication 50 unit 06/25/24 17:00 Insulin Lispro SUB-Q 07/25/24 16:59 TIDWM JUDITH Non-Formulary Medication 100 mg 06/25/24 18:00 Progesterone Micronized PO 07/25/24 17:59 QPM JUDITH Ondansetron HCl 4 mg 06/21/24 02:08 06/26/24 02:39 Ondansetron Inj 4 Mg/2 Ml Vial IV PUSH 4 mg Q6HR PRN Administration Nausea And Vomiting Pantoprazole Sodium 40 mg 06/25/24 09:00 06/25/24 08:46 Pantoprazole 40 Mg Tablet PO 40 mg QAM JUDITH Administration Potassium Chloride 40 meq 06/26/24 08:04 Potassium Chloride 20 Meq Er Tablet PO 06/26/24 08:05 ONCE ONE Pregabalin 200 mg 06/26/24 09:00 Pregabalin (*Crx) 50 Mg Capsule PO DAILY [facility] Prochlorperazine Edisylate 10 mg 06/23/24 11:14 06/26/24 05:34 Prochlorperazine Edisylate 10 Mg/2 Ml Vial IV PUSH 10 mg Q6H PRN Administration Nausea And Vomiting Rosuvastatin Calcium 40 mg 07/02/24 09:00 Rosuvastatin 20 Mg Tablet PO WEEKLY JUDITH Fluticasone/Salmeterol 2 puff 06/25/24 20:00 06/25/24 22:39 Fluticasone/Salmeterol 230-21 Mcg Inhaler 1 Puff INHALATION 2 puff Q12HRT JUDITH Administration Sucralfate 1,000 mg 06/23/24 06:30 06/26/24 05:32 Sucralfate Susp 100 Mg/Ml 10 Ml Udc PO 1,000 mg ACHS JUDITH Administration Trazodone HCl 50 mg 06/25/24 14:30 06/25/24 21:08 Trazodone Hcl 50 Mg Tablet PO 50 mg QHS PRN Administration Insomnia Radiology Results: ITS Impressions Abdomen/Pelvis CT 06/20/24 23:57 IMPRESSION: Redemonstration of a chronic mass within the body of the uterus distorting the endometrial canal, unchanged dating back to 2015. Hepatomegaly with borderline splenomegaly. Chest X-Ray 06/23/24 09:37 IMPRESSION: 1. No acute cardiopulmonary disease. Labs Labs: Laboratory Results - last 24 hr 06/25/24 06/25/24 06/25/24 11:53 16:41 16:52 Sodium Potassium 3.2 L Chloride Carbon Dioxide Anion Gap BUN Creatinine Estim Creat Clear Calc Estimated GFR Glucose POC Capillary Glucose 235 H 200 H Calcium Magnesium 06/25/24 06/26/24 20:32 07:27 Sodium 138 Potassium 3.2 L Chloride 106 Carbon Dioxide 17 L Anion Gap 15 H BUN 15 Creatinine 0.64 L Estim Creat Clear Calc 103 Estimated GFR > 60 Glucose 214 H POC Capillary Glucose 276 H Calcium 9.1 Magnesium 2.0 Quality VTE Prophylaxis VTE prophylaxis: mechanical ordered
[2024-06-26 08:35] LABS: Glucose Point of Care 239 mg/dl (65-105)
[2024-06-26] MEDS: POTASSIUM CHLORIDE 20 MEQ ER TABLET 40 MEQ PO (08:43)
[2024-06-26] MEDS: lisinopriL 20 MG TABLET 40 MG PO (08:44)
[2024-06-26] MEDS: metFORMIN HCL XR 500 MG TAB.SR.24H PO ×2 (08:44→17:20)
[2024-06-26] MEDS: PREGABALIN (*CRX) 50 MG CAPSULE 200 MG PO (08:44)
[2024-06-26] MEDS: ASPIRIN 81 MG ENTERIC TABLET PO (08:45)
[2024-06-26] MEDS: PANTOPRAZOLE 40 MG TABLET PO (08:45)
[2024-06-26] MEDS: LORATADINE 10 MG TABLET PO (08:45)
[2024-06-26] MEDS: INSULIN ASPART (*BKC) 100 UNITS/ML SUB-Q ×2 (08:53→17:49)
[2024-06-26] MEDS: FLUTICASONE/SALMETEROL 230-21 MCG INHALER 1 PUFF 2 PUFF INHALATION ×2 (09:02→20:14)
[2024-06-26 12:28] LABS: Glucose Point of Care 200 mg/dl (65-105)
[2024-06-26] MEDS: carvediloL 12.5 MG TABLET PO (12:40)
[2024-06-26 14:52] LABS: Potassium 3.3 mmol/L (3.4-5.0)
--- NOTE | 2024-06-26 14:56 | WPDGIPROGNO ---
Progress Note: A&P Assessment and Plan (1) Intractable nausea and vomiting: Code(s): R11.2 - Nausea with vomiting, unspecified Status: Acute Assessment and Plan: nausea is improving egd with only mild gastritis and mild esophagitis ct scan only fatty liver and small size hiatal hernia correcting hypokalemia on ppi daily hopefully home soon when eating more and K better will follow as needed (2) Epigastric pain: Code(s): R10.13 - Epigastric pain Status: Acute Assessment and Plan: medical treatment ct scan reviewed liver enzymes normal mild gastritis (3) GERD (gastroesophageal reflux disease): Qualifiers: Esophagitis presence: esophagitis presence not specified Qualified Code(s): K21.9 - Gastro-esophageal reflux disease without esophagitis Code(s): K21.9 - Gastro-esophageal reflux disease without esophagitis Status: Acute (4) Anxiety and depression: Code(s): F41.9 - Anxiety disorder, unspecified; F32.9 - Major depressive disorder, single episode, unspecified Status: Chronic (5) Diabetes: Qualifiers: Diabetes mellitus type: type 1 Diabetes mellitus complication status: without complication Qualified Code(s): E10.9 - Type 1 diabetes mellitus without complications Code(s): E11.9 - Type 2 diabetes mellitus without complications Status: Acute Subjective Date/time seen: 06/26/24 14:56 Interval history: slowly doing better and trying to eat more still low K Review of Systems Review of Systems: All systems reviewed & are unremarkable except as noted in HPI and below Exam Const: General: no acute distress HENMT: Face/Nose/Sinus: Normal nares present Mouth: Yes dry mucous membranes Eyes: General: appearance normal, both eyes and all related structures Sclera: sclerae normal Neck: Neck: supple Chest: Other: Nontender Resp: Effort & Inspection: normal respiratory effort Auscultation: clear to auscultation bilaterally Cardio: Rate: regular rate Rhythm: regular rhythm GI: Inspection: non-distended GI Palp: No Guarding due to palpation present (GI) Auscultation: normal bowel sounds Skin: General skin exam: normal color and no rashes or lesions noted Neuro: Speech: normal speech Motor exam (neuro): 5/5 motor strength present throughout Extrem: General: normal to inspection Psych: Affect: Anxious affect present Objective Data Vital Signs Vital Signs: Vital Signs - 24 hr 06/25/24 16:00 06/25/24 20:00 06/25/24 20:00 Temperature Pulse Rate 120 H 125 H Respiratory Rate Blood Pressure Pulse Oximetry Oxygen Delivery Room Air 06/25/24 20:28 06/25/24 20:55 06/26/24 00:00 Temperature 97.6 F Pulse Rate 116 H 165 H 118 H Respiratory Rate 20 Blood Pressure 123/75 Pulse Oximetry 99 Oxygen Delivery 06/26/24 04:00 06/26/24 04:35 06/26/24 08:50 Temperature 97.9 F Pulse Rate 104 H 118 H Respiratory Rate 18 Blood Pressure 148/71 H Pulse Oximetry 97 Oxygen Delivery Room Air 06/26/24 08:50 06/26/24 12:40 Temperature Pulse Rate 116 H 116 H Respiratory Rate Blood Pressure Pulse Oximetry Oxygen Delivery Intake/Output Intake/Output: Intake & Output 06/23/24 06/24/24 06/25/24 06/26/24 23:59 23:59 23:59 23:59 Intake Total 2535 2680 1130 550 Output Total 2 Balance 2533 2680 1130 550 Meds/Results Medications: Active Medications Generic Name Dose Route Start Last Admin Trade Name Freq PRN Reason Stop Dose Admin Albuterol 2.5 mg 06/25/24 14:25 Albuterol Sulfate Neb 2.5 Mg/3 Ml Inh INHALATION Q6H PRN Shortness Of Breath Or Wheezing Aspirin 81 mg 06/26/24 09:00 06/26/24 08:45 Aspirin 81 Mg Enteric Tablet PO 81 mg QAM JUDITH Administration Carvedilol 12.5 mg 06/26/24 21:00 Carvedilol 12.5 Mg Tablet PO Q12HR [facility] Cyclobenzaprine HCl 5 mg 06/25/24 14:25 06/26/24 00:17 Cyclobenzaprine Hcl 5 Mg Tablet PO 5 mg TID PRN Administration muscle pain Dextrose 12.5 gm 06/21/24 02:12 Dextrose 50% 25 Gm/50 Ml Syringe IV PUSH PRN PRN Hypoglycemia Protocol Ergocalciferol 50,000 units 06/27/24 09:00 Ergocalciferol 50,000 Units Capsule PO Mo@0900 [facility] Escitalopram Oxalate 10 mg 06/26/24 14:45 Escitalopram Oxalate 10 Mg Tablet PO DAILY [facility] Famotidine 20 mg 06/25/24 14:25 Famotidine 20 Mg Tablet PO Q12HR PRN acid reflux Ferrous Sulfate 325 mg 06/25/24 14:50 Ferrous Sulfate [address] BY MOUTH BID PRN menstrual bleeding Fluticasone Propionate 1 spray 06/25/24 14:25 Fluticasone Propionate 0.05% Na Spr 16 Gm Btl (*Bkc) NASAL DAILY PRN allergy symptoms Glucagon 1 mg 06/21/24 02:12 Glucagon For Inj 1 Mg Vial IM PRN PRN Hypoglycemia Protocol Glucose 15 gm 06/21/24 02:12 Glucose Oral Gel 15 Gm Of Glucse In 37.5 Gm Tube PO PRN PRN Hypoglycemia Protocol Hydralazine HCl 10 mg 06/21/24 02:12 06/24/24 10:46 Hydralazine Hcl 20 Mg/Ml Vial IV PUSH 10 mg Q8H PRN Administration Blood Pressure - High Dextrose 1,000 mls @ 100 mls/hr 06/21/24 02:12 Dextrose 5% 1,000 Ml IVPB PRN PRN Hypoglycemia Protocol Potassium Chloride/Sodium Chloride 1,000 mls @ 100 mls/hr 06/23/24 11:45 06/26/24 09:08 Kcl 20 Meq/Ns IV CONT Not Given .Q10H JUDITH Insulin Aspart 2 - 5 units 06/21/24 08:00 06/26/24 12:45 Insulin Aspart (*Bkc) 100 Units/Ml SUB-Q Not Given TIDWM [facility] Protocol Insulin Aspart 1 - 2 units 06/21/24 21:00 06/25/24 21:04 Insulin Aspart (*Bkc) 100 Units/Ml SUB-Q 1 units HS JUDITH Administration Protocol Insulin Glargine 50 units 06/26/24 21:00 Insulin Glargine (*Bkc) 100 Units/Ml SUB-Q HS JUDITH Lisinopril 40 mg 06/26/24 09:00 06/26/24 08:44 Lisinopril 20 Mg Tablet PO 40 mg QAM JUDITH Administration Loratadine 10 mg 06/26/24 09:00 06/26/24 08:45 Loratadine 10 Mg Tablet PO 10 mg QAM JUDITH Administration Magnesium Chloride 64 mg 06/25/24 09:00 06/25/24 08:46 Magnesium Chloride 64 Mg Tablet PO 64 mg QAM JUDITH Administration Metformin HCl 500 mg 06/25/24 17:00 06/26/24 08:44 Metformin Hcl Xr 500 Mg Tab.Sr.24h PO 500 mg BID JUDITH Administration Ondansetron HCl 4 mg 06/21/24 02:08 06/26/24 02:39 Ondansetron Inj 4 Mg/2 Ml Vial IV PUSH 4 mg Q6HR PRN Administration Nausea And Vomiting Pantoprazole Sodium 40 mg 06/25/24 09:00 06/26/24 08:45 Pantoprazole 40 Mg Tablet PO 40 mg QAM JUDITH Administration Pregabalin 200 mg 06/26/24 09:00 06/26/24 08:44 Pregabalin (*Crx) 50 Mg Capsule PO 200 mg DAILY JUDITH Administration Prochlorperazine Edisylate 10 mg 06/23/24 11:14 06/26/24 05:34 Prochlorperazine Edisylate 10 Mg/2 Ml Vial IV PUSH 10 mg Q6H PRN Administration Nausea And Vomiting Rosuvastatin Calcium 40 mg 07/02/24 09:00 Rosuvastatin 20 Mg Tablet PO WeFr@0900 JUDITH Fluticasone/Salmeterol 2 puff 06/25/24 20:00 06/26/24 09:02 Fluticasone/Salmeterol 230-21 Mcg Inhaler 1 Puff INHALATION 2 puff Q12HRT JUDITH Administration Sucralfate 1,000 mg 06/23/24 06:30 06/26/24 12:43 Sucralfate Susp 100 Mg/Ml 10 Ml Udc PO 1,000 mg ACHS JUDITH Administration Trazodone HCl 50 mg 06/25/24 14:30 06/25/24 21:08 Trazodone Hcl 50 Mg Tablet PO 50 mg QHS PRN Administration Insomnia Radiology Results: ITS Impressions Abdomen/Pelvis CT 06/20/24 23:57 IMPRESSION: Redemonstration of a chronic mass within the body of the uterus distorting the endometrial canal, unchanged dating back to 2015. Hepatomegaly with borderline splenomegaly. Chest X-Ray 06/23/24 09:37 IMPRESSION: 1. No acute cardiopulmonary disease. Labs Labs: Laboratory Results - last 24 hr 06/25/24 06/25/24 06/25/24 16:41 16:52 20:32 Sodium Potassium 3.2 L Chloride Carbon Dioxide Anion Gap BUN Creatinine Estim Creat Clear Calc Estimated GFR Glucose POC Capillary Glucose 200 H 276 H Calcium Magnesium 06/26/24 06/26/24 06/26/24 07:27 08:30 12:25 Sodium 138 Potassium 3.2 L Chloride 106 Carbon Dioxide 17 L Anion Gap 15 H BUN 15 Creatinine 0.64 L Estim Creat Clear Calc 103 Estimated GFR > 60 Glucose 214 H POC Capillary Glucose 239 H 200 H Calcium 9.1 Magnesium 2.0 06/26/24 14:41 Sodium Potassium 3.3 L Chloride Carbon Dioxide Anion Gap BUN Creatinine Estim Creat Clear Calc Estimated GFR Glucose POC Capillary Glucose Calcium Magnesium
[2024-06-26 15:03] LABS: Basophils Absolute Auto 0.1 K/mm3 (0.0-0.1); Basophils Percent Auto 0.4 % (0.2-1.2); Eosinophils Absolute Auto 0.2 K/mm3 (0-0.3); Eosinophils Percent Auto 1.1 % (0-4.4); Hemoglobin 16.5 g/dL (12.0-15.0); Immature Granulocyte Absolute 0.06 K/mm3 (0.00-0.031); Immature Granulocyte Percent A 0.4 % (0-0.5); Lymphocytes Absolute Auto 4.66 K/mm3 (0.9-3.2); Lymphocytes Percent Auto 29.4 % (18.3-44.2); Mean Corpuscular HGB Conc 32.4 g/dl (32-36); Mean Corpuscular Hemoglobin 27.9 pg (26-34); Mean Corpuscular Volume 86.3 fl (80-100); Mean Platelet Volume 11.4 fl (7.4-10.4); Monocytes Absolute Auto 1.4 K/mm3 (0.1-0.6); Monocytes Percent Auto 8.9 % (2.6-8.5); Neutrophils Absolute Auto 9.5 K/mm3 (1.3-6.7); Neutrophils Percent Auto 59.8 % (45.5-73.1); Platelet Count Result 298 k/mm3 (150-375); Red Blood Count 5.91 M/mm3 (4.2-5.4); Red Cell Distribution Width 14.1 % (11.5-14.5); White Blood Count 15.8 K/mm3 (4.5-10.0)
[2024-06-26] MEDS: ESCITALOPRAM OXALATE 10 MG TABLET PO (17:20)
[2024-06-26 17:32] LABS: Glucose Point of Care 232 mg/dl (65-105)
[2024-06-26 21:26] LABS: Lactic Acid Reflex 2.5 mmol/L (0.7-2.0)
[2024-06-26 21:28] LABS: Alanine Aminotransferase 38 U/L (6-35); Albumin Level 3.6 g/dL (3.5-5.1); Alkaline Phosphatase 76 U/L (38-126); Anion Gap 11 mmol/L (4-12); Aspartate Amino Transferase 39 U/L (14-36); Bilirubin,Total 0.7 mg/dL (0.2-1.3); Blood Urea Nitrogen 19 mg/dL (7-17); CRP 0.5 mg/dL (<1.0); Calcium 8.9 mg/dL (8.4-10.2); Carbon Dioxide 17 mmol/L (22-30); Chloride 109 mmol/L (98-107); Estimated CRCL calculation 44 ml/min; Estimated Glomerular Filt Rate 34; Glucose 191 mg/dL (65-110); Magnesium 1.8 mg/dL (1.6-2.3); Phosphorus 2.6 mg/dL (2.5-4.5); Potassium 2.9 mmol/L (3.4-5.0); Sodium 137 mmol/L (137-145)
[2024-06-26] MEDS: traZODone HCL 50 MG TABLET PO (21:47)
[2024-06-26] MEDS: METOPROLOL TARTRATE 25 MG TABLET PO (21:47)
[2024-06-26] MEDS: INSULIN GLARGINE (*BKC) 100 UNITS/ML 50 UNITS SUB-Q (21:48)
--- NOTE | 2024-06-26 22:31 | PM.CCN ---
Critical Care Event Note Summary Code activated: No Narrative: Called to bedside for nursing for patient being unresponsive Per nursing patient is having episodes of blank stares, not responding to commands with eyes open CT head shows no acute findings When getting up to bedside commode patient had another episode of unresponsiveness with hypotension On bedside exam patient A&O x4, she states that she remembers nurse talking to her however she states that she could not understand what she was saying stating it was like she was speaking in a foreign language. Altered mental status Eeg in the morning Orthostatic hypotension Fluid bolus in IVF Orthostatics in a.m. Sepsis unknown source Lactic acid 2.5 UA pending Chest x-ray with no acute findings Blood cultures pending 2 L normal saline bolus followed by IVF Protonix Vancomycin and cefepime Repeat lactic pending Hypokalemia 40 mEq IV GIORGI Repeat BMP in morning IV fluids for hydration Critical Care Time Critical Care Time: Yes Total Critical Care Time: Over 65 minutes Due to a high probability of clinically significant, life threatening deterioration, the patient required my highest level of preparedness to intervene emergently and I personally spent this critical care time directly and personally managing the patient. This critical care time included obtaining a history; examining the patient; pulse oximetry; ordering and review of studies; arranging urgent treatment with development of a management plan; evaluation of patient's response to treatment; frequent reassessment; and discussions with other providers. It was exclusive of separately billable procedures and treating other patients and teaching time. Please see Assessment and Plan section and the rest of the note for further information on patient assessment and treatment. This case had a high probability of a clinically significant, sudden, or life threatening deterioration of this patient's condition which required my full and direct attention, intervention and personal management. Critical care time: 30 - 74 mins
[2024-06-26] MEDS: SODIUM CHLORIDE 0.9% IV 1,000 ML 999 ML IV CONT (23:05)
[2024-06-26] MEDS: POTASSIUM CHLORIDE INJ 40 MEQ in SODIUM CHLORIDE 0.9% IV 500 ML 130 MEQ IVPB (23:06)
[2024-06-26 23:13] LABS: Reflex Lactic Acid Yes or No Add Lactic
[2024-06-26 23:18] LABS: Hematocrit 41.9 % (37.0-47.0); Mean Corpuscular HGB Conc 33.4 g/dl (32-36); Mean Corpuscular Hemoglobin 28.3 pg (26-34); Mean Corpuscular Volume 84.8 fl (80-100); Mean Platelet Volume 10.7 fl (7.4-10.4); Platelet Count Result 301 k/mm3 (150-375); Red Blood Count 4.94 M/mm3 (4.2-5.4); Red Cell Distribution Width 14.3 % (11.5-14.5); White Blood Count 16.4 K/mm3 (4.5-10.0)
[2024-06-27] VITALS (12 sets, daily range): BP systolic 142–176; BP diastolic 65–89; PULSE 91–117; RESP 18–20; TEMP 36.2–37.1; O2SAT 96–98
[2024-06-27 01:26] LABS: Lactic Acid 1.4 mmol/L (0.7-2.0)
[2024-06-27] MEDS: CEFEPIME 2 GM/NS 50 ML 2 GM/50 ML BAG IVPB (02:15)
[2024-06-27] MEDS: VANCOMYCIN 1,500 MG/NS 500 ML 1,500 MG/500 ML BAG 250 MG IVPB (02:15)
[2024-06-27] MEDS: POTASSIUM CHLORIDE 20 MEQ ER TABLET 40 MEQ PO (02:20)
[2024-06-27 03:49] LABS: MRSA (PCR) NOT DETECTED (NOT DETECTE)
--- NOTE | 2024-06-27 04:06 | PC.NURSE ---
Pt had a fall shortly before my shift started at 1900. A CT scan was ordered of pts head. Approximately 1929ish transport arrived to take her down then came out and got me cause something was wrong. When I got to bedside Pt had a fixed stare, was very pale and unable to follow directions. When I tried to see if she could squeeze my hands they were flaccid. I checked her pupils that they were responsive. The pt didn't respond to my touching her eyelids or the bright light. Before I could call for help she just came out of it. She was back to speaking normal, A&O, and could squeeze my hands but said her legs were too weak to moved. Pt has been Independent her whole admission to this point. She said knew I was talking to her but that she couldn't respond or understand what I was saying. I spoke with Pearl Lemus approximately 1999. She reviewed her chart, came to see her, and gave orders. Around 2199 pt asked to use the commode. I was at bedside with Khushbu Galaviz. Once pt sat on the commode she repeated the same episode as before and was slumped over on the commode. This time I was immediately able to get vitals which showed BP 83/59 heartrate 113. She then came back to her normal as we got her back in bed. Labs were back showing a Lactic 2.5, K+2.9, Creatinine 1.57. Blood cultures couldn't be obtained at this time nor could the UA. We did a bladder scan that showed she only had 29mls. I spoke with Dr. Cruz to update her on Pt status and lack of urine. She has since recieved PO K+, bolus, Cefepime, and Vanc. Trying to get another access to start the mag rider.
[2024-06-27] MEDS: SODIUM CHLORIDE 0.9% IV 1,000 ML 999 ML IV CONT (04:42)
[2024-06-27] MEDS: PROCHLORPERAZINE EDISYLATE 10 MG/2 ML VIAL IV PUSH ×2 (04:42→20:29)
[2024-06-27] MEDS: MAGNESIUM SULF 2 GM/WATER 50ML 2 GM/50 ML BAG IVPB (05:51)
[2024-06-27] MEDS: SODIUM CHLORIDE 0.9% IV 1,000 ML 100 ML IV CONT ×2 (05:53→20:32)
[2024-06-27 07:15] LABS: Basophils Absolute Auto 0.1 K/mm3 (0.0-0.1); Basophils Percent Auto 0.4 % (0.2-1.2); Eosinophils Absolute Auto 0.2 K/mm3 (0-0.3); Eosinophils Percent Auto 1.5 % (0-4.4); Hematocrit 41.6 % (37.0-47.0); Hemoglobin 13.5 g/dL (12.0-15.0); Immature Granulocyte Absolute 0.07 K/mm3 (0.00-0.031); Immature Granulocyte Percent A 0.5 % (0-0.5); Lymphocytes Absolute Auto 3.03 K/mm3 (0.9-3.2); Lymphocytes Percent Auto 21.9 % (18.3-44.2); Mean Corpuscular HGB Conc 32.5 g/dl (32-36); Mean Corpuscular Hemoglobin 27.6 pg (26-34); Mean Corpuscular Volume 85.1 fl (80-100); Mean Platelet Volume 10.7 fl (7.4-10.4); Monocytes Absolute Auto 1.2 K/mm3 (0.1-0.6); Monocytes Percent Auto 8.8 % (2.6-8.5); Neutrophils Absolute Auto 9.2 K/mm3 (1.3-6.7); Neutrophils Percent Auto 66.9 % (45.5-73.1); Platelet Count Result 258 k/mm3 (150-375); Red Blood Count 4.89 M/mm3 (4.2-5.4); Red Cell Distribution Width 14.3 % (11.5-14.5); White Blood Count 13.8 K/mm3 (4.5-10.0)
[2024-06-27 07:26] LABS: Glucose Point of Care 234 mg/dl (65-105)
[2024-06-27 07:26] LABS: Glucose Point of Care 192 mg/dl (65-105)
[2024-06-27 07:45] LABS: Alanine Aminotransferase 32 U/L (6-35); Albumin Level 3.5 g/dL (3.5-5.1); Alkaline Phosphatase 83 U/L (38-126); Anion Gap 11 mmol/L (4-12); Aspartate Amino Transferase 32 U/L (14-36); Bilirubin,Total 0.8 mg/dL (0.2-1.3); Blood Urea Nitrogen 17 mg/dL (7-17); Calcium 8.2 mg/dL (8.4-10.2); Carbon Dioxide 16 mmol/L (22-30); Chloride 111 mmol/L (98-107); Estimated CRCL calculation 64 ml/min; Estimated Glomerular Filt Rate 53; Glucose 213 mg/dL (65-110); Potassium 2.8 mmol/L (3.4-5.0); Sodium 138 mmol/L (137-145)
--- NOTE | 2024-06-27 08:19 | P.PNIM_ITS ---
Progress Note: A&P Assessment and Plan (1) Sepsis: Code(s): A41.9 - Sepsis, unspecified organism Status: Acute Assessment and Plan: Meets SIRS criteria: Tachycardia, Leukocytosis - lactic acid: pending - suspected source: unknown - blood cultures drawn on 06/23 - UA: 3+ protein, 1+ glucose, 2+ ketones, 1+ blood - CXR: No acute cardiopulmonary disease. - Preliminary blood cultures negative - Tachycardia and tachypnea likely some component of anxiety 06/27 - Repeat sepsis workup was initiated on 06/26 due to AMS - Blood cultures drawn on 06/27 pending - Repeat UA: 2+ leukocyte esterase, 11-20 WBC, culture pending - Head CT and EEG normal - Pending MR Brain and US Carotid duplex at this time (2) Intractable nausea and vomiting: Code(s): R11.2 - Nausea with vomiting, unspecified Status: Acute Assessment and Plan: * CT Abd/pelvis without acute findings * Antiemetics, IVFs * NPO, continue holding medications * Continue Protonix 40 mg daily * Elevated gap and beta hydroxybutyrate however pH is 7.434. She is not acidotic. * IV Compazine q.6 p.r.n. * EGD report: Reflux esophagitis, grade 1. Mild gastritis in antrum. Multiple biopsies taken 06/27 * N/v worsening today/last night, vomiting again * No episodes of emesis throughout afternoon today (3) Hypokalemia: Code(s): E87.6 - Hypokalemia Status: Acute Assessment and Plan: * In ED: 3.6 * Likely secondary to continuous Vomiting and associated nausea. * Continue to monitor and supplement as needed * 06/27: K 2.8 * 40 meq IV Krider * Nephrology consult, pending recommendations (4) Syncope and collapse: Code(s): R55 - Syncope and collapse Status: Acute Assessment and Plan: * Rapid response team called on 06/26 for possible syncope, patient does not think that she had complete LOC * Patient appeared to be staring blankly and responding to nursing staff, had 2 additional episodes in the bathroom * Patient states she believes it is exertional or when she stands * EEG and head CT unremarkable * Brain MRI and carotid Doppler ultrasound ordered, pending at this time * Orthostatic vital signs (5) Urinary tract infection: Code(s): N39.0 - Urinary tract infection, site not specified Status: Acute Assessment and Plan: - UA on 06/27: Cloudy, 1+ protein, 2+ leukocyte esterase, 11-20 urine WBC - UC obtained on 06/27 - started on Rocephin (6) Dehydration: Code(s): E86.0 - Dehydration Status: Acute Assessment and Plan: * In ED: K=3.0, likely secondary to vomiting. Will supp as needed * Continue to trend AM labs * Monitor kidney function * IVF for rehydration * Encourage PO intake (7) Insulin dependent diabetes mellitus: Status: Chronic Assessment and Plan: * Continue to hold oral hypoglycemic meds * Sliding scale insulin * Hypoglycemic protocol * Accu-Cheks a.c. and HS * A1c 7.2% (8) HLD (hyperlipidemia): Code(s): E78.5 - Hyperlipidemia, unspecified Status: Chronic Assessment and Plan: * Continue medications once confirmed and can tolerate * Diabetic Consistent Carb diet (9) Diastolic dysfunction: Code(s): I51.89 - Other ill-defined heart diseases Status: Chronic Assessment and Plan: * Daily weight * Accurate intake and output * Patient currently appears euvolemic * Pt denies CP/SOB/cough (10) HTN (hypertension): Code(s): I10 - Essential (primary) hypertension Status: Chronic Assessment and Plan: * Restarting at home medications * IV hydralazine ordered with parameters. Telemetry -90 bpm Metoprolol 25mg BID (11) Anxiety and depression: Code(s): F41.9 - Anxiety disorder, unspecified; F32.9 - Major depressive disorder, single episode, unspecified Status: Chronic Assessment and Plan: * Continue home medications when confirmed and can tolerate Plan -Continue with IVF and antiemetics Subjective Date/time seen: 06/27/24 08:19 Interval history: Interval history: 63-year-old female patient with history of heart failure, rheumatoid arthritis, asthma, BC, anxiety, depression, GERD, hypertension, hyperlipidemia and type 2 diabetes mellitus comes to the emergency room today with acute onset of nausea and vomiting. 06/27/2024 Patient sitting comfortably in bed. Rapid called last night due to AMS/unresponsive. When the overnight provider interviewed the pt, she was A&Ox4 but was having trouble understanding what the nursing staff was saying and was having episodes of blank stares. Neurology has been consulted, and Head CT + EEG were ordered but were normal. Pt also vomiting again this morning and found to have a K of 2.8. Will need to replace K w/ IV K again and will need to further assess worsening n/v, as well as rule out sepsis with blood cultures, CXR, and repeat blood work. Upon exam, pt does not have any complaints at this time, states that overnight she felt nauseous and vomiting again but has not vomiting throughout the day today. Pending Carotid duplex BI and MR brain at this time. Review of Systems Review of Systems: All systems reviewed & are unremarkable except as noted in HPI and below Gastrointestinal: Gastrointestinal: Reports abdominal pain (mild RLQ), Denies diarrhea, Reports nausea and Reports vomiting Exam Const: General: no acute distress Other: Ill appearing, obese. HENMT: Face/Nose/Sinus: Normal nares present Mouth: Yes dry mucous membranes Eyes: General: appearance normal, both eyes and all related structures Sclera: sclerae normal Neck: Neck: supple and no JVD Chest: Other: Nontender Resp: Effort & Inspection: normal respiratory effort Auscultation: clear to auscultation bilaterally Cardio: Rate: regular rate Rhythm: regular rhythm Heart sounds: no gallops, Murmur heart sound present (Grade 2 systolic) and no rubs GI: Inspection: non-distended Auscultation: normal bowel sounds Other: No tenderness to palpation, no guarding Skin: General skin exam: normal color, no rashes or lesions noted, No lesion and No rashes Lesions: no lesions noted Rashes: no rashes noted Wounds: no wounds Neuro: General: gait normal Speech: normal speech Motor exam (neuro): 5/5 motor strength present throughout and Normal motor muscle tone present throughout Sensory Exam: normal sensation Extrem: General: normal to inspection, no edema and no pedal edema Psych: Mental Status: mental status grossly normal Affect: normal affect and Hostile affect present Other: Patient obviously upset that I will not allow her to have ice chips as she rolls her eyes at me Objective Data Vital Signs Vital Signs: Vital Signs - 24 hr 06/26/24 08:50 06/26/24 08:50 06/26/24 12:00 Temperature Pulse Rate 116 H 127 H Respiratory Rate Blood Pressure Pulse Oximetry Oxygen Delivery Room Air 06/26/24 12:40 06/26/24 14:57 06/26/24 16:00 Temperature 98.1 F Pulse Rate 116 H 121 H 102 H Respiratory Rate 18 Blood Pressure 115/71 Pulse Oximetry 99 Oxygen Delivery 06/26/24 19:03 06/26/24 20:00 06/26/24 20:00 Temperature 98 F Pulse Rate 105 H 90 Respiratory Rate 18 Blood Pressure 95/66 L Pulse Oximetry 99 Oxygen Delivery Room Air 06/26/24 20:20 06/26/24 22:18 06/27/24 00:00 Temperature 98.3 F Pulse Rate 91 91 Respiratory Rate 16 Blood Pressure 100/58 L Pulse Oximetry 97 97 Oxygen Delivery Room Air 06/27/24 04:00 06/27/24 06:00 Temperature 97.2 F L Pulse Rate 111 H 117 H Respiratory Rate 18 Blood Pressure 142/65 H Pulse Oximetry 97 Oxygen Delivery Intake/Output Intake/Output: Intake & Output 06/24/24 06/25/24 06/26/24 06/27/24 23:59 23:59 23:59 23:59 Intake Total 2680 1130 970 Output Total 0 Balance 2680 1130 970 0 Meds/Results Medications: Active Medications Generic Name Dose Route Start Last Admin Trade Name Freq PRN Reason Stop Dose Admin Albuterol 2.5 mg 06/25/24 14:25 Albuterol Sulfate Neb 2.5 Mg/3 Ml Inh INHALATION Q6H PRN Shortness Of Breath Or Wheezing Aspirin 81 mg 06/26/24 09:00 06/26/24 08:45 Aspirin 81 Mg Enteric Tablet PO 81 mg QAM JUDITH Administration Cyclobenzaprine HCl 5 mg 06/25/24 14:25 06/26/24 00:17 Cyclobenzaprine Hcl 5 Mg Tablet PO 5 mg TID PRN Administration muscle pain Dextrose 12.5 gm 06/21/24 02:12 Dextrose 50% 25 Gm/50 Ml Syringe IV PUSH PRN PRN Hypoglycemia Protocol Ergocalciferol 50,000 units 06/27/24 09:00 Ergocalciferol 50,000 Units Capsule PO Mo@0900 JUDITH Escitalopram Oxalate 10 mg 06/26/24 14:45 06/26/24 17:20 Escitalopram Oxalate 10 Mg Tablet PO 10 mg DAILY JUDITH Administration Famotidine 20 mg 06/25/24 14:25 Famotidine 20 Mg Tablet PO Q12HR PRN acid reflux Ferrous Sulfate 325 mg 06/25/24 14:50 Ferrous Sulfate [address] BY MOUTH BID PRN menstrual bleeding Fluticasone Propionate 1 spray 06/25/24 14:25 Fluticasone Propionate 0.05% Na Spr 16 Gm Btl (*Bkc) NASAL DAILY PRN allergy symptoms Glucagon 1 mg 06/21/24 02:12 Glucagon For Inj 1 Mg Vial IM PRN PRN Hypoglycemia Protocol Glucose 15 gm 06/21/24 02:12 Glucose Oral Gel 15 Gm Of Glucse In 37.5 Gm Tube PO PRN PRN Hypoglycemia Protocol Hydralazine HCl 10 mg 06/21/24 02:12 06/24/24 10:46 Hydralazine Hcl 20 Mg/Ml Vial IV PUSH 10 mg Q8H PRN Administration Blood Pressure - High Dextrose 1,000 mls @ 100 mls/hr 06/21/24 02:12 Dextrose 5% 1,000 Ml IVPB PRN PRN Hypoglycemia Protocol Cefepime HCl 2 gm in 50 mls @ 100 mls/hr 06/27/24 12:00 Maxipime 2 Gm/Ns 50 Ml IVPB Q12HR JUDITH Sodium Chloride 1,000 mls @ 100 mls/hr 06/27/24 04:05 06/27/24 05:53 Normal Saline Iv IV CONT 100 mls/hr .Q10H JUDITH Administration Vancomycin HCl 1,500 mg in 500 mls @ 250 mls/hr 06/27/24 20:00 Vancomycin 1,500 Mg/Ns 500 Ml IVPB Q18H JUDITH Potassium Chloride 40 meq/ 520 mls @ 130 mls/hr 06/27/24 08:09 Sodium Chloride IVPB 06/27/24 12:08 ONCE ONE Insulin Aspart 2 - 5 units 06/21/24 08:00 06/26/24 17:49 Insulin Aspart (*Bkc) 100 Units/Ml SUB-Q 2 units TIDWM JUDITH Administration Protocol Insulin Aspart 1 - 2 units 06/21/24 21:00 06/26/24 21:49 Insulin Aspart (*Bkc) 100 Units/Ml SUB-Q Not Given HS JUDITH Protocol Insulin Glargine 50 units 06/26/24 21:00 06/26/24 21:48 Insulin Glargine (*Bkc) 100 Units/Ml SUB-Q 50 units HS JUDITH Administration Lisinopril 40 mg 06/26/24 09:00 06/26/24 08:44 Lisinopril 20 Mg Tablet PO 40 mg QAM JUDITH Administration Loratadine 10 mg 06/26/24 09:00 06/26/24 08:45 Loratadine 10 Mg Tablet PO 10 mg QAM JUDITH Administration Magnesium Chloride 64 mg 06/25/24 09:00 06/25/24 08:46 Magnesium Chloride 64 Mg Tablet PO 64 mg QAM JUDITH Administration Metformin HCl 500 mg 06/25/24 17:00 06/26/24 17:20 Metformin Hcl Xr 500 Mg Tab.Sr.24h PO 500 mg BID JUDITH Administration Metoprolol Tartrate 25 mg 06/26/24 21:00 06/26/24 21:47 Metoprolol Tartrate 25 Mg Tablet PO 25 mg Q12HR JUDITH Administration Ondansetron HCl 4 mg 06/21/24 02:08 06/26/24 17:21 Ondansetron Inj 4 Mg/2 Ml Vial IV PUSH 4 mg Q6HR PRN Administration Nausea And Vomiting Pantoprazole Sodium 40 mg 06/25/24 09:00 06/26/24 08:45 Pantoprazole 40 Mg Tablet PO 40 mg QAM JUDITH Administration Pantoprazole Sodium 40 mg 06/27/24 09:00 Pantoprazole Sodium Iv 40 Mg Vial IV PUSH DAILY [facility] Pregabalin 200 mg 06/26/24 09:00 06/26/24 08:44 Pregabalin (*Crx) 50 Mg Capsule PO 200 mg DAILY JUDITH Administration Prochlorperazine Edisylate 10 mg 06/23/24 11:14 06/27/24 04:42 Prochlorperazine Edisylate 10 Mg/2 Ml Vial IV PUSH 10 mg Q6H PRN Administration Nausea And Vomiting Rosuvastatin Calcium 40 mg 07/02/24 09:00 Rosuvastatin 20 Mg Tablet PO WeFr@0900 JUDITH Fluticasone/Salmeterol 2 puff 06/25/24 20:00 06/26/24 20:14 Fluticasone/Salmeterol 230-21 Mcg Inhaler 1 Puff INHALATION 2 puff Q12HRT JUDITH Administration Sucralfate 1,000 mg 06/23/24 06:30 06/27/24 06:49 Sucralfate Susp 100 Mg/Ml 10 Ml Udc PO Not Given ACHS JUDITH Trazodone HCl 50 mg 06/25/24 14:30 06/26/24 21:47 Trazodone Hcl 50 Mg Tablet PO 50 mg QHS PRN Administration Insomnia Radiology Results: ITS Impressions Abdomen/Pelvis CT 06/20/24 23:57 IMPRESSION: Redemonstration of a chronic mass within the body of the uterus distorting the endometrial canal, unchanged dating back to 2015. Hepatomegaly with borderline splenomegaly. Head CT 06/26/24 20:15 IMPRESSION: No acute intracranial findings. Pansinusitis. Chest X-Ray 06/26/24 21:03 IMPRESSION: No acute cardiopulmonary pathology Labs Labs: Laboratory Results - last 24 hr 06/26/24 06/26/24 06/26/24 07:27 08:30 12:25 WBC 15.8 H RBC 5.91 H Hgb 16.5 H Hct 51.0 H MCV 86.3 MCH 27.9 MCHC 32.4 RDW 14.1 Plt Count 298 MPV 11.4 H Immature Gran % (Auto) 0.4 Neut % (Auto) 59.8 Lymph % (Auto) 29.4 Tift % (Auto) 8.9 H Eos % (Auto) 1.1 Baso % (Auto) 0.4 Lymph # (Auto) 4.66 H Tift # (Auto) 1.4 H Eos # (Auto) 0.2 Baso # (Auto) 0.1 Abs Immat Gran (auto) 0.06 H Absolute Neuts (auto) 9.5 H Absolute Nucleated RBC 0.000 Nucleated RBC % 0.0 Sodium Potassium Chloride Carbon Dioxide Anion Gap BUN Creatinine Estim Creat Clear Calc Estimated GFR Glucose POC Capillary Glucose 239 H 200 H Lactic Acid Calcium Phosphorus Magnesium Total Bilirubin AST ALT Alkaline Phosphatase C-Reactive Protein Total Protein Albumin Nasal MRSA (PCR) 06/26/24 06/26/24 06/26/24 14:41 17:26 21:08 WBC RBC Hgb Hct MCV MCH MCHC RDW Plt Count MPV Immature Gran % (Auto) Neut % (Auto) Lymph % (Auto) Tift % (Auto) Eos % (Auto) Baso % (Auto) Lymph # (Auto) Tift # (Auto) Eos # (Auto) Baso # (Auto) Abs Immat Gran (auto) Absolute Neuts (auto) Absolute Nucleated RBC Nucleated RBC % Sodium 137 Potassium 3.3 L 2.9 L Chloride 109 H Carbon Dioxide 17 L Anion Gap 11 BUN 19 H Creatinine 1.57 H Estim Creat Clear Calc 44 Estimated GFR 34 L Glucose 191 H POC Capillary Glucose 232 H Lactic Acid 2.5 H Calcium 8.9 Phosphorus 2.6 Magnesium 1.8 Total Bilirubin 0.7 AST 39 H ALT 38 H Alkaline Phosphatase 76 C-Reactive Protein 0.5 Total Protein 7.0 Albumin 3.6 Nasal MRSA (PCR) 06/26/24 06/26/24 06/27/24 21:40 23:06 01:11 WBC 16.4 H RBC 4.94 Hgb 14.0 Hct 41.9 MCV 84.8 MCH 28.3 MCHC 33.4 RDW 14.3 Plt Count 301 MPV 10.7 H Immature Gran % (Auto) Neut % (Auto) Lymph % (Auto) Tift % (Auto) Eos % (Auto) Baso % (Auto) Lymph # (Auto) Tift # (Auto) Eos # (Auto) Baso # (Auto) Abs Immat Gran (auto) Absolute Neuts (auto) Absolute Nucleated RBC Nucleated RBC % Sodium Potassium Chloride Carbon Dioxide Anion Gap BUN Creatinine Estim Creat Clear Calc Estimated GFR Glucose POC Capillary Glucose 192 H Lactic Acid 1.4 Calcium Phosphorus Magnesium Total Bilirubin AST ALT Alkaline Phosphatase C-Reactive Protein Total Protein Albumin Nasal MRSA (PCR) 06/27/24 06/27/24 06/27/24 02:32 06:22 06:58 WBC 13.8 H RBC 4.89 Hgb 13.5 Hct 41.6 MCV 85.1 MCH 27.6 MCHC 32.5 RDW 14.3 Plt Count 258 MPV 10.7 H Immature Gran % (Auto) 0.5 Neut % (Auto) 66.9 Lymph % (Auto) 21.9 Tift % (Auto) 8.8 H Eos % (Auto) 1.5 Baso % (Auto) 0.4 Lymph # (Auto) 3.03 Tift # (Auto) 1.2 H Eos # (Auto) 0.2 Baso # (Auto) 0.1 Abs Immat Gran (auto) 0.07 H Absolute Neuts (auto) 9.2 H Absolute Nucleated RBC 0.000 Nucleated RBC % 0.0 Sodium 138 Potassium 2.8 L* Chloride 111 H Carbon Dioxide 16 L Anion Gap 11 BUN 17 Creatinine 1.07 H Estim Creat Clear Calc 64 Estimated GFR 53 L Glucose 213 H POC Capillary Glucose 234 H Lactic Acid Calcium 8.2 L Phosphorus Magnesium Total Bilirubin 0.8 AST 32 ALT 32 Alkaline Phosphatase 83 C-Reactive Protein Total Protein 6.0 L Albumin 3.5 Nasal MRSA (PCR) Not detected Quality VTE Prophylaxis VTE prophylaxis: mechanical ordered
[2024-06-27 08:21] LABS: Magnesium 1.9 mg/dL (1.6-2.3)
[2024-06-27 08:25] LABS: Add Urine Microscopic? YES; Appearance Urine Cloudy (Clear); Bacteria Urine None Seen /hpf; Bilirubin Urine Negative (Negative); Blood Urine Negative (Negative); Color Urine Yellow (Yellow); Glucose Urine UA Trace mg/dL (Negative); Hyaline Casts Urine Present /lpf; Ketones Urine Negative (Negative); Leukocyte Esterase Ur 2+ LEU/UL (Negative); Need Manual Microscopic Reviewed; Nitrate Urine Negative (Negative); Protein Urine 1+ mg/dL (Negative); RBC Urine 0-2 /hpf (0-2); Specific Grav Ur 1.009 (1.001-1.035); Squamous Epithelial Cell Urine None Seen /hpf (Few); Urobilinogen Urine 0.2 mg/dL (<2.0); pH Urine 6.5 (5.0-9.0)
[2024-06-27 08:56] LABS: Creatine Kinase 42 U/L (30-135)
[2024-06-27 09:14] LABS: Glucose Point of Care 218 mg/dl (65-105)
[2024-06-27] MEDS: POTASSIUM CHLORIDE INJ 40 MEQ in SODIUM CHLORIDE 0.9% IV 500 ML 130 MEQ IVPB ×2 (09:50→19:19)
[2024-06-27] MEDS: METOPROLOL TARTRATE 25 MG TABLET PO ×2 (10:02→20:31)
[2024-06-27] MEDS: lisinopriL 20 MG TABLET 40 MG PO (10:09)
--- NOTE | 2024-06-27 10:19 | WPDNEUROLOGY ---
Neurology EEG Report General Information Date of Study: 06/27/24 TEST Electroencephalogram DIAGNOSIS single spell of unresponsiveness CONDITION OF RECORDING bedside recording EEG NUMBER [id number] CLINICAL HISTORY History of diabetes mellitus and cardiac disease EEG DESCRIPTION During wakefulness the background activity consists of posterior dominant alpha rhythm at a 8-9 hertz with an amplitude of 20-40 microvolts. Which is appears moderately formed. Anteriorly low amplitude mixed frequency activity was seen. There is a mild anteroposterior gradient. Hyperventilation or photic stimulation were not performed. Patient did not progress to stage 2 sleep. IMPRESSION This is a normal EEG obtained during awake state.
--- NOTE | 2024-06-27 11:02 | P.CONNP_ITS ---
Assessment and Plan Assessment and plan (1) Hypokalemia: Code(s): E87.6 - Hypokalemia Status: Chronic Assessment and Plan: * chronic issue for the last few years * however, tends to be exacerbated with acute hospitalization from review of records * usually stable/controlled with outpatient medication regimen * noted persistence during this hospitalization * however, complicated by GI issues/symptoms (nausea/vomiting/dimished oral intake) * consider possible Gitelman syndrome: * low K+ with low magnesium noted * however, usually associated with low blood pressure * possible distal type IV RTA(?) -- common in diabetic patients... * check TSH, cortisol, calculate TTKG, urine electrolytes, renin, and aldosterone * continue supplementation as tolerated - oral replacement is favorable to IV if possible * continue to ensure magnesium is stable * follow trend of repeat K+ levels (2) Intractable nausea and vomiting: Code(s): R11.2 - Nausea with vomiting, unspecified Status: Acute Assessment and Plan: * fluctuating issue since admission * on IVFs and antiemetics * GI following: * s/p EGD on 06/24: reflux esophagitis and mild gastritis in antrum * on PPI * likely a contributing component to #1 (3) Syncope and collapse: Code(s): R55 - Syncope and collapse Status: Acute Assessment and Plan: * as noted by rapid response on 06/26 * no completed loss of consciousness per patient * described as blank stare per nursing * testing to date noted: * EEG unremarkable * CT of head without any acute findings * carotid dopplers noted * MRI of brain pending * continue supportive therapy (4) Urinary tract infection: Code(s): N39.0 - Urinary tract infection, site not specified Status: Acute Assessment and Plan: * UA suggestive: * cloudy, 1+ protein, 2+ leukocyte esterase, 11-20 urine WBC * follow-up on urine culture results * on antibiotics (5) HTN (hypertension): Code(s): I10 - Essential (primary) hypertension Status: Chronic Assessment and Plan: * reasonable control * on lisinopril and metoprolol * given her issues with LE edema in the past and #1, consider adding K+ sparing diuretic on discharge (i.e. spironolactone, triameterene or amiloride) * follow trend of hemodynamics (6) Insulin dependent diabetes mellitus: Status: Chronic Assessment and Plan: * follow accu-cheks * glycemic control per hospitalist I will continue to follow the patient with you while she remains hospitalized and make further recommendations as deemed necessary. Thank you for allowing me to participate in the care of this patient. L History of Present Illness Reason for Consult Consult date: 06/27/24 Reason for consult: hypokalemia Chief Complaint Chief complaint: Intractable n/v History of Present Illness Narrative: The patient is a seat 53-year-old female with a past medical history as outlined below who presented to [facility] Emergency Room with nausea and vomiting. Apparently, the nausea and vomiting started acutely earlier on the morning of admission. It should be noted the patient was just recently discharged from [facility] after being treated with reported CHF exacerbation although testing during that hospital stay demonstrated normal systolic and diastolic heart function by echo and Cardiology felt that her lower extremity edema was more related to her use of amlodipine than cardiac disease. Her medications were adjusted so that amlodipine was discontinued in favor of lisinopril and beta-kailash therapy. Since discharge, she reports doing reasonably well with no complaints of fevers, chills, diarrhea, chest pain, shortness of breath, or abdominal pain. In any case, with the abrupt onset of nausea and vomiting on the morning of admission, it seemed that the symptoms continued to worsen over the course of the day and this subsequently led to her presentation to the emergency room for further assessment. Workup and evaluation emergency room demonstrated mildly elevated white blood cell count of 13.2 with an essential normal chemistry panel without any evidence of renal dysfunction or critical electrolyte abnormalities. EKG showed normal sinus rhythm without any acute ischemic changes. Given her persistent nausea and vomiting, CT scan of the abdomen pelvis was done which demonstrated a chronic mass within the body of the uterus distorting the endometrial canal but this has been present as far back as 2016 with hepatomegaly, borderline splenomegaly and no other acute intra-abdominal findings. While in the emergency room she received several medications for her symptoms including Pepcid, Zofran, Reglan, Benadryl, Protonix, Bentyl, Mylanta, and Haldol but the patient continued to have issues with nausea, vomiting as well as dry heaves. She was subsequently initiated on IV fluids with continued IV antiemetics and subsequently admitted to the hospital for further evaluation therapy. Since her admission, her nausea and vomiting has fluctuated with some improvement but then with some worsening in the last 24 hours. This was further complicated by a rapid response yesterday evening due to what appeared to be a possible near-syncope episode although it does not appear that she actually lost consciousness and her vital signs were otherwise stable. Subsequent testing with regard to EGD and CT scan of the head were unremarkable. Renal consultation was requested due to her persistent/chronic hypokalemia. From review her records and discussion with the patient's, she has had issues and problems with hyperkalemia for several years now although usually it is kept stable with her regimen of potassium and magnesium supplements. However, whenever she appears to be admitted to the hospital for any acute issue or problem, it would seem that her hypokalemia manifests itself again. On this hospitalization, her hyperkalemia was noted although this is in the context of poor oral intake, inability take her potassium supplements, and persistent nausea and vomiting as already mentioned. It has been difficult to give the patient oral supplementation in the context of her nausea and vomiting and so IV supplementation has been utilized with suboptimal improvement. This is further complicated by her were hypo magnesemia which also requires IV supplementation as well. Currently, at the time my visit, she does not appear to be in any acute distress. Review of Systems 2 Review of Systems: As per HPI. [facility] Past Medical History Medical History Lower extremity edema Dyspnea on exertion Pneumonia Rheumatoid arthritis (normal spontaneous vaginal delivery) x2 Status post hysteroscopy 2015 and 2020 Asthma Obesity Iron deficiency anemia Elective Anxiety and depression GERD (gastroesophageal reflux disease) HTN (hypertension) High triglycerides HLD (hyperlipidemia) Diabetes Surgical History Surgical History S/P endometrial ablation 2017 Family History Family History Mother Atrial fibrillation History of open heart surgery Family history of cataracts Hypertension Asthma Grandparent Family history of cardiovascular disease Family history of Alzheimer's disease Family history of coronary artery disease Heart murmur Sibling Heart murmur Social History Social History Smoking packs per day: 1 Smoking cigarettes per day: 20.0 Years smoked: 20 Smoking pack-years: 20.00 Smoking status: Former smoker Tobacco type: cigarettes Smoking end date: 02/16/02 Alcohol intake: never Drinks per week: 2 Substance use: never Substance use type: marijuana Do You Feel Safe in your Home?: Yes Lack of Transportation: No Lack of Food: Never True Current Housing: I Have Housing Concerned About Future Housing: No Difficulty Paying Gas/Electric Bills: No Difficulty Paying for Meds: No Currently Unemployed: No Education: High School Diploma/GED Difficulty w/ Childcare or Family Care: No Living arrangements: alone Gender identity (if verbalized by the patient): Female Spiritual care concerns: No Agree to blood products: Yes Meds Home Medications and Allergies Home Medications Medication Instructions Recorded Confirmed Type aspirin 81 mg capsule 81 mg PO DAILY 12/05/20 06/21/24 History rosuvastatin 40 mg tablet 40 mg PO WEEKLY 12/05/20 06/21/24 History albuterol sulfate 2.5 mg/3 mL 2.5 mg inhalation Q6H PRN 03/28/21 06/21/24 History (0.083 %) solution for nebulization Shortness Of Breath Or Wheezing ergocalciferol (vitamin D2) 1,250 1,250 mcg PO WEEKLY 03/28/21 06/21/24 History mcg (50,000 unit) capsule trazodone 50 mg tablet 50 mg PO QHS PRN Insomnia 03/28/21 06/21/24 History hydroxychloroquine 200 mg tablet 200 mg PO .q12hr 09/12/22 06/21/24 History Afrin (oxymetazoline) 1 puff intranasal TID PRN 04/06/23 06/21/24 History Congestion ibuprofen 1,600 mg PO BID PRN Headache 04/06/23 06/21/24 History magnesium oxide 400 mg (241.3 mg 400 mg PO HS 04/06/23 06/21/24 History magnesium) tablet doxycycline hyclate 100 mg tablet 100 mg PO Q12HR #5 tabs 04/14/23 06/21/24 Rx fluticasone propionate 230 2 puff inhalation Q12HRT 30 days 06/03/23 06/21/24 Rx mcg-salmeterol 21 mcg/actuation #60 grams HFA inhaler (Advair HFA) cetirizine 10 mg tablet 10 mg PO DAILY 06/13/24 06/21/24 History cyclobenzaprine 5 mg tablet 5 mg PO TID PRN muscle pain 06/13/24 06/21/24 History dulaglutide 3 mg/0.5 mL 3 mg subcut WEEKLY 06/13/24 06/21/24 History subcutaneous pen injector (Trulicity) escitalopram oxalate 10 mg tablet 10 mg PO DAILY 06/13/24 06/21/24 History famotidine 20 mg tablet 20 mg PO BID PRN acid reflux 06/13/24 06/21/24 History ferrous sulfate 325 mg (65 mg 325 mg PO BID PRN menstrual 06/13/24 06/21/24 History iron) tablet (FeroSul) bleeding fluticasone propionate 50 1 spray intranasal DAILY PRN 06/13/24 06/21/24 History mcg/actuation nasal allergy symptoms spray,suspension hydrocodone 7.5 mg-acetaminophen 1 tablet PO TID PRN pain 06/13/24 06/21/24 History 325 mg tablet insulin lispro 100 unit/mL 50 unit subcut TIDWM 06/13/24 06/21/24 History subcutaneous pen metformin 500 mg tablet,extended 500 mg PO BID 06/13/24 06/21/24 History release 24 hr pregabalin 200 mg capsule 200 mg PO DAILY 06/13/24 06/21/24 History progesterone micronized 100 mg 100 mg PO QPM 06/13/24 06/21/24 History capsule blood sugar diagnostic (OneTouch #1 pkg 06/17/24 06/21/24 Rx Verio test strips) blood-glucose meter (OneTouch #1 pkg 06/17/24 06/21/24 Rx Verio Flex Meter) carvedilol 12.5 mg tablet (Coreg) 12.5 mg PO Q12HR #60 tabs 06/17/24 06/21/24 Rx hydrochlorothiazide 25 mg tablet 25 mg PO QAM #30 tabs 06/17/24 06/21/24 Rx insulin glargine 100 unit/mL (3 24 unit (0.24 mL) subcut QPM #15 mL 06/17/24 06/21/24 Rx mL) subcutaneous pen (Lantus Solostar U-100 Insulin) insulin syringe,safety needle 0.5 #1 pkg 06/17/24 06/21/24 Rx mL 31 gauge x 5/16 insulin syringe,safety needle 1 mL #1 pkg 06/17/24 06/21/24 Rx 32 gauge x 5/16 lancets 30 gauge (OneTouch Delica #1 pkg 06/17/24 06/21/24 Rx Plus Lancet) lisinopril 20 mg tablet 40 mg (2 x 20 mg) PO QAM #60 tabs 06/17/24 06/21/24 Rx pen needle, diabetic 32 gauge x #1 pkg 06/17/24 06/21/24 Rx 1/4 pen needle, diabetic 32 gauge x #1 pkg 06/17/24 06/21/24 Rx 5/32 potassium chloride 10 mEq 10 meq PO BIDWM #60 tabs 06/17/24 06/21/24 Rx tablet,extended release Allergies Allergy/AdvReac Type Severity Reaction Status Date / Time atenolol Allergy Intermediate Chest Pain Verified 06/24/24 09:52 Vital Signs Vital Signs Temp Pulse Resp BP Pulse Ox O2 Del Method 06/27/24 11:00 93 98 Room Air 06/27/24 10:02 108 H 06/27/24 08:00 115 H 06/27/24 06:00 97.2 F L 117 H 18 142/65 H 97 06/27/24 04:00 111 H 06/27/24 00:00 91 06/26/24 22:18 98.3 F 91 16 100/58 L 97 06/26/24 20:20 97 Room Air 06/26/24 20:00 90 06/26/24 20:00 Room Air Exam 2 Narrative: GENERAL APPEARANCE: well developed well nourished female in no acute distress HEENT: normocephalic, atraumatic, normal conjunctiva and sclera, nares patient NECK: no lymphadenopathy, thyromegaly, or JVD MOUTH: normal lips, teeth, and gums CARDIOVASCULAR: RRR, normal S1 and S2, no rub RESPIRATORY: clear to auscultation bilaterally ABDOMEN: soft, nontender, nondistended, positive bowel sounds present EXTREMITIES: no evidence of cyanosis, clubbing, or edema NEUROLOGICAL: alert and oriented x 3; CN II - XII intact bilaterally; no focal deficits noted Results Lab Results 06/28/24 05:59 06/28/24 05:59 Lab results: Most recent lab results Calcium 8.2 mg/dL (8.4-10.2) L 06/27/24 06:58 Phosphorus 2.6 mg/dL (2.5-4.5) 06/26/24 21:08 Magnesium 1.9 mg/dL (1.6-2.3) 06/27/24 06:58 Urine Creatinine 44.8 mg/dL 06/27/24 15:31 Urine Creatinine Cancelled 06/27/24 15:31
[2024-06-27] MEDS: LIDOCAINE 1% PF INJ 5 ML VIAL INFILTRATE (11:15)
--- NOTE | 2024-06-27 12:02 | WPDNEURCNPN ---
Assessment and Plan Assessment and plan (1) Syncope and collapse: Code(s): R55 - Syncope and collapse Status: Acute Assessment and Plan: the patient think that she did not have complete loss of consciousness however according to the notes the rapid response team was called. Patient appeared to be staring blankly and she apparently has had 2 spells once in the bathroom when she has fallen out of commode and the other 1 in when she was in bed. EEG was performed did not show any significant abnormalities. CT scan of brain done on yesterday also was within normal range. Previous MRI in March 16, 2023 had shown moderate degree of white matter changes. Would suggest repeat MRI and carotid Doppler study in view of above spell. (2) Insulin dependent diabetes mellitus: Status: Chronic (3) Obesity: Code(s): E66.9 - Obesity, unspecified Status: Acute (4) Intractable nausea and vomiting: Code(s): R11.2 - Nausea with vomiting, unspecified Status: Acute (5) Rheumatoid arthritis: Code(s): M06.9 - Rheumatoid arthritis, unspecified Status: Acute (6) COBY (obstructive sleep apnea): Code(s): G47.33 - Obstructive sleep apnea (adult) (pediatric) Status: Acute Assessment and Plan: She is not on CPAP at this time Plan we should continue to observe and if she has any further spells I would like to be notified. In the meanwhile an MRI of the brain and carotid Doppler study are recommended. EEG did not show any significant abnormalities. 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 In recent past she was admitted with congestive cardiac failure. the patient states that she went to restroom and she slipped out of the commode and could not help herself to get back to the commode and call for help. During the time the purse came there was a brief period in which she was staring blankly and appear to be not responsive. They put her in the bed and she thinks that she had another spell where she was staring blankly. Patient herself thinks that she never lost full consciousness but is possible that she may have flaps. No history of prior stroke or transient ischemic attack or passing-out spells or syncopal episodes reported by the patient. She had an MRI of the brain done on March 16, 2023 which has shown some white matter changes. Echocardiogram done on June 13, 2024 shows ejection fraction 55-60%. CT scan of brain was performed after the above spell on 06/26/2024 which did not show any abnormalities. No acute changes were seen. Review of Systems Review of Systems: Patient continues to have nausea vomiting. She feels generally weak but overall no neurologic symptoms. Specifically she has has not been confused and she denies any headache or weakness in the upper lower limbs. [facility] Past Medical History Medical History (Updated 06/23/24 @ 07:37 by Jean Ellison PA-C) Lower extremity edema Dyspnea on exertion Pneumonia Rheumatoid arthritis (normal spontaneous vaginal delivery) x2 Status post hysteroscopy 2015 and 2020 Asthma Obesity Iron deficiency anemia Elective Anxiety and depression GERD (gastroesophageal reflux disease) HTN (hypertension) High triglycerides HLD (hyperlipidemia) Diabetes Surgical History Surgical History S/P endometrial ablation 2017 Family History Family History Mother Atrial fibrillation History of open heart surgery Family history of cataracts Hypertension Asthma Grandparent Family history of cardiovascular disease Family history of Alzheimer's disease Family history of coronary artery disease Heart murmur Sibling Heart murmur Social History Social History Smoking packs per day: 1 Smoking cigarettes per day: 20.0 Years smoked: 20 Smoking pack-years: 20.00 Smoking status: Former smoker Tobacco type: cigarettes Smoking end date: 02/16/02 Alcohol intake: never Drinks per week: 2 Substance use: never Substance use type: marijuana Do You Feel Safe in your Home?: Yes Lack of Transportation: No Lack of Food: Never True Current Housing: I Have Housing Concerned About Future Housing: No Difficulty Paying Gas/Electric Bills: No Difficulty Paying for Meds: No Currently Unemployed: No Education: High School Diploma/GED Difficulty w/ Childcare or Family Care: No Living arrangements: alone Gender identity (if verbalized by the patient): Female Spiritual care concerns: No Agree to blood products: Yes Meds Home Medications and Allergies Home Medications Medication Instructions Recorded Confirmed Type aspirin 81 mg capsule 81 mg PO DAILY 12/05/20 06/21/24 History rosuvastatin 40 mg tablet 40 mg PO WEEKLY 12/05/20 06/21/24 History albuterol sulfate 2.5 mg/3 mL 2.5 mg inhalation Q6H PRN 03/28/21 06/21/24 History (0.083 %) solution for nebulization Shortness Of Breath Or Wheezing ergocalciferol (vitamin D2) 1,250 1,250 mcg PO WEEKLY 03/28/21 06/21/24 History mcg (50,000 unit) capsule trazodone 50 mg tablet 50 mg PO QHS PRN Insomnia 03/28/21 06/21/24 History hydroxychloroquine 200 mg tablet 200 mg PO .q12hr 09/12/22 06/21/24 History Afrin (oxymetazoline) 1 puff intranasal TID PRN 04/06/23 06/21/24 History Congestion ibuprofen 1,600 mg PO BID PRN Headache 04/06/23 06/21/24 History magnesium oxide 400 mg (241.3 mg 400 mg PO HS 04/06/23 06/21/24 History magnesium) tablet doxycycline hyclate 100 mg tablet 100 mg PO Q12HR #5 tabs 04/14/23 06/21/24 Rx fluticasone propionate 230 2 puff inhalation Q12HRT 30 days 06/03/23 06/21/24 Rx mcg-salmeterol 21 mcg/actuation #60 grams HFA inhaler (Advair HFA) cetirizine 10 mg tablet 10 mg PO DAILY 06/13/24 06/21/24 History cyclobenzaprine 5 mg tablet 5 mg PO TID PRN muscle pain 06/13/24 06/21/24 History dulaglutide 3 mg/0.5 mL 3 mg subcut WEEKLY 06/13/24 06/21/24 History subcutaneous pen injector (Trulicity) escitalopram oxalate 10 mg tablet 10 mg PO DAILY 06/13/24 06/21/24 History famotidine 20 mg tablet 20 mg PO BID PRN acid reflux 06/13/24 06/21/24 History ferrous sulfate 325 mg (65 mg 325 mg PO BID PRN menstrual 06/13/24 06/21/24 History iron) tablet (FeroSul) bleeding fluticasone propionate 50 1 spray intranasal DAILY PRN 06/13/24 06/21/24 History mcg/actuation nasal allergy symptoms spray,suspension hydrocodone 7.5 mg-acetaminophen 1 tablet PO TID PRN pain 06/13/24 06/21/24 History 325 mg tablet insulin lispro 100 unit/mL 50 unit subcut TIDWM 06/13/24 06/21/24 History subcutaneous pen metformin 500 mg tablet,extended 500 mg PO BID 06/13/24 06/21/24 History release 24 hr pregabalin 200 mg capsule 200 mg PO DAILY 06/13/24 06/21/24 History progesterone micronized 100 mg 100 mg PO QPM 06/13/24 06/21/24 History capsule [facility] ([facility] 06/17/24 06/21/24 Rx Verio test strips) blood-glucose meter ([facility] #1 [facility] 06/17/24 06/21/24 Rx Verio Flex Meter) carvedilol 12.5 mg tablet (Coreg) 12.5 mg PO Q12HR #60 tabs 06/17/24 06/21/24 Rx hydrochlorothiazide 25 mg tablet 25 mg PO QAM #30 tabs 06/17/24 06/21/24 Rx insulin glargine 100 unit/mL (3 24 unit (0.24 mL) subcut QPM #15 mL 06/17/24 06/21/24 Rx mL) subcutaneous pen (Lantus Solostar U-100 Insulin) insulin syringe,safety needle 0.5 #1 pkg 06/17/24 06/21/24 Rx mL 31 gauge x 5/16 insulin syringe,safety needle 1 mL #1 pkg 06/17/24 06/21/24 Rx 32 gauge x 5/16 lancets 30 gauge (OneTouch Delica #1 pkg 06/17/24 06/21/24 Rx Plus Lancet) lisinopril 20 mg tablet 40 mg (2 x 20 mg) PO QAM #60 tabs 06/17/24 06/21/24 Rx pen needle, diabetic 32 gauge x #1 pkg 06/17/24 06/21/24 Rx 1/4 pen needle, diabetic 32 gauge x #1 pkg 06/17/24 06/21/24 Rx potassium chloride 10 mEq 10 meq PO BIDWM #60 tabs 06/17/24 06/21/24 Rx tablet,extended release Allergies Allergy/AdvReac Type Severity Reaction Status Date / Time atenolol Allergy Intermediate Chest Pain Verified 06/24/24 09:52 Vital Signs Vital Signs - 24 hr 06/26/24 12:40 06/26/24 14:57 06/26/24 16:00 Temperature 98.1 F Pulse Rate 116 H 121 H 102 H Respiratory Rate 18 Blood Pressure 115/71 Pulse Oximetry 99 Oxygen Delivery 06/26/24 19:03 06/26/24 20:00 06/26/24 20:00 Temperature 98 F Pulse Rate 105 H 90 Respiratory Rate 18 Blood Pressure 95/66 L Pulse Oximetry 99 Oxygen Delivery Room Air 06/26/24 20:20 06/26/24 22:18 06/27/24 00:00 Temperature 98.3 F Pulse Rate 91 91 Respiratory Rate 16 Blood Pressure 100/58 L Pulse Oximetry 97 97 Oxygen Delivery Room Air 06/27/24 04:00 06/27/24 06:00 06/27/24 10:02 Temperature 97.2 F L Pulse Rate 111 H 117 H 108 H Respiratory Rate 18 Blood Pressure 142/65 H Pulse Oximetry 97 Oxygen Delivery Exam Const: General: cooperative, well developed and alert Orientation/consciousness: patient oriented x3 HENMT: Head: atraumatic Mouth: Yes oropharynx normal Eyes: Alignment and Position: position normal Pupils: Equal, round and reactive pupils present EOM: EOMs intact bilaterally Neck: Neck: supple Resp: Effort & Inspection: normal respiratory effort Neuro: General: patient oriented x3 Cranial nerves: Yes CN's II-XII intact bilaterally, Yes facial sensation intact/muscles of mastication intact, Yes Equal, round and reactive pupils present, Yes facial symmetry and Yes Midline tongue present Cognition (Neuro): normal cognition Speech: normal speech Motor exam (neuro): 5/5 motor strength present throughout and Normal motor muscle tone present throughout Sensory Exam: normal sensation Coordination: [id number] test normal and Normal rapid alternating movements of the distal upper extremity present (Neuro) Extrem: General: normal to inspection Psych: Mental Status: mental status grossly normal Affect: normal affect Results Labs 06/27/24 06:58 06/27/24 06:58 Labs: Short CBC 06/26/24 06/26/24 06/27/24 Range/Units 07:27 23:06 06:58 WBC 15.8 H 16.4 H 13.8 H (4.5-10.0) K/mm3 Hgb 16.5 H 14.0 13.5 (12.0-15.0) g/dL Hct 51.0 H 41.9 41.6 (37.0-47.0) % Plt Count 298 301 258 (150-375) k/mm3 BMP 06/26/24 06/26/24 06/27/24 14:41 21:08 06:58 Sodium 137 138 Potassium 3.3 L 2.9 L 2.8 L* Chloride 109 H 111 H Carbon Dioxide 17 L 16 L BUN 19 H 17 Creatinine 1.57 H 1.07 H Glucose 191 H 213 H Calcium 8.9 8.2 L Cardiac Enzymes 06/27/24 Range/Units 06:58 Total Creatine Kinase 42 (30-135) U/L Liver Function 06/26/24 06/27/24 Range/Units 21:08 06:58 Total Bilirubin 0.7 0.8 (0.2-1.3) mg/dL AST 39 H 32 (14-36) U/L ALT 38 H 32 (6-35) U/L Alkaline Phosphatase 76 83 (38-126) U/L Albumin 3.6 3.5 (3.5-5.1) g/dL Urine 06/27/24 Range/Units 07:59 Urine Color Yellow (Yellow) Urine Appearance Cloudy H (Clear) Urine pH 6.5 (5.0-9.0) Ur Specific [place] 1.009 (1.001-1.035) Urine Protein 1+ H (Negative) mg/dL Urine Glucose (UA) Trace H (Negative) mg/dL
[2024-06-27 12:35] LABS: Glucose Point of Care 203 mg/dl (65-105)
[2024-06-27] MEDS: cefTRIAXone 2 GM/NS 100 ML 2 GM/100 ML BAG IVPB (13:04)
--- NOTE | 2024-06-27 13:13 | P.CONCA_ITS ---
Assessment and Plan Assessment and plan (1) Tachycardia: Code(s): R00.0 - Tachycardia, unspecified Status: Acute Assessment and Plan: She has sinus tachycardia which according to her report she has had for 30 years. Previously on nadolol which was shifted to carvedilol during her last hospital admission. She has now been placed on metoprolol. She feels palpitations with rapid heart rate but it appears that her hemodynamics are stable. Telemetry demonstrates sinus rhythm with rate generaly in the 90's - low 100's. * Sinus tachycardia generally does not require treatment beyond treating underlying physiologic causes (she is hypokalemic with K+2.8 this a.m. which is being repleted, presumably from upper GI losses). * She does feel palpitations when her heart rate is elevated, therefore, beta kailash has been prescribed for many years * While I don't feel strongly about her need for medical treatment for sinus tachycardia, I don't see any contraindication to shifting her back to nadolol (she reports previous dose was 80mg twice daily, but 80mg daily is more likely). * Cardiology will sign off please call with questions. History of Present Illness History of Present Illness Consult date/time: 06/27/24 13:13 Requesting physician: Jean Ellison PA-C Consult reason: Other (tachycardia) Reason For Visit: Intractable n/v Narrative: Regina Howell is a 53 year old female with diastolic dysfunction, COBY, and hypertension. Patient came to the hospital because of nausea and vomiting. Cardiology is consulted because of tachycardia. Patient has a 30 year history of sinus tachycardia and had previously taken nadolol for this. During a recent hospitalization she was switched from nadolol to carvedilol for reasons that are unclear. Patient states that when her heart rate is rapid she feels palpitations. She also reports being able to feel PVC's. She denies any chest pain, shortness of breath, edema. She remains nauseous. Review of Systems 2 Review of Systems: All systems reviewed & are unremarkable except as noted in HPI and below PMFSH Past Medical History Medical History Lower extremity edema Dyspnea on exertion Pneumonia Rheumatoid arthritis (normal spontaneous vaginal delivery) x2 Status post hysteroscopy 2015 and 2020 Asthma Obesity Iron deficiency anemia Elective Anxiety and depression GERD (gastroesophageal reflux disease) HTN (hypertension) High triglycerides HLD (hyperlipidemia) Diabetes Surgical History Surgical History S/P endometrial ablation 2017 Family History Family History Mother Atrial fibrillation History of open heart surgery Family history of cataracts Hypertension Asthma Grandparent Family history of cardiovascular disease Family history of Alzheimer's disease Family history of coronary artery disease Heart murmur Sibling Heart murmur Social History Social History Smoking packs per day: 1 Smoking cigarettes per day: 20.0 Years smoked: 20 Smoking pack-years: 20.00 Smoking status: Former smoker Tobacco type: cigarettes Smoking end date: 02/16/02 Alcohol intake: never Drinks per week: 2 Substance use: never Substance use type: marijuana Do You Feel Safe in your Home?: Yes Lack of Transportation: No Lack of Food: Never True Current Housing: I Have Housing Concerned About Future Housing: No Difficulty Paying Gas/Electric Bills: No Difficulty Paying for Meds: No Currently Unemployed: No Education: High School Diploma/GED Difficulty w/ Childcare or Family Care: No Living arrangements: alone Gender identity (if verbalized by the patient): Female Spiritual care concerns: No Agree to blood products: Yes Meds Home Medications and Allergies Home Medications Medication Instructions Recorded Confirmed Type aspirin 81 mg capsule 81 mg PO DAILY 12/05/20 06/21/24 History rosuvastatin 40 mg tablet 40 mg PO WEEKLY 12/05/20 06/21/24 History albuterol sulfate 2.5 mg/3 mL 2.5 mg inhalation Q6H PRN 03/28/21 06/21/24 History (0.083 %) solution for nebulization Shortness Of Breath Or Wheezing ergocalciferol (vitamin D2) 1,250 1,250 mcg PO WEEKLY 03/28/21 06/21/24 History mcg (50,000 unit) capsule trazodone 50 mg tablet 50 mg PO QHS PRN Insomnia 03/28/21 06/21/24 History hydroxychloroquine 200 mg tablet 200 mg PO .q12hr 09/12/22 06/21/24 History Afrin (oxymetazoline) 1 puff intranasal TID PRN 04/06/23 06/21/24 History Congestion ibuprofen 1,600 mg PO BID PRN Headache 04/06/23 06/21/24 History magnesium oxide 400 mg (241.3 mg 400 mg PO HS 04/06/23 06/21/24 History magnesium) tablet doxycycline hyclate 100 mg tablet 100 mg PO Q12HR #5 tabs 04/14/23 06/21/24 Rx fluticasone propionate 230 2 puff inhalation Q12HRT 30 days 06/03/23 06/21/24 Rx mcg-salmeterol 21 mcg/actuation #60 grams HFA inhaler (Advair HFA) cetirizine 10 mg tablet 10 mg PO DAILY 06/13/24 06/21/24 History cyclobenzaprine 5 mg tablet 5 mg PO TID PRN muscle pain 06/13/24 06/21/24 History dulaglutide 3 mg/0.5 mL 3 mg subcut WEEKLY 06/13/24 06/21/24 History subcutaneous pen injector (Trulicity) escitalopram oxalate 10 mg tablet 10 mg PO DAILY 06/13/24 06/21/24 History famotidine 20 mg tablet 20 mg PO BID PRN acid reflux 06/13/24 06/21/24 History ferrous sulfate 325 mg (65 mg 325 mg PO BID PRN menstrual 06/13/24 06/21/24 History iron) tablet (FeroSul) bleeding fluticasone propionate 50 1 spray intranasal DAILY PRN 06/13/24 06/21/24 History mcg/actuation nasal allergy symptoms spray,suspension hydrocodone 7.5 mg-acetaminophen 1 tablet PO TID PRN pain 06/13/24 06/21/24 History 325 mg tablet insulin lispro 100 unit/mL 50 unit subcut TIDWM 06/13/24 06/21/24 History subcutaneous pen metformin 500 mg tablet,extended 500 mg PO BID 06/13/24 06/21/24 History release 24 hr pregabalin 200 mg capsule 200 mg PO DAILY 06/13/24 06/21/24 History progesterone micronized 100 mg 100 mg PO QPM 06/13/24 06/21/24 History capsule blood sugar diagnostic (OneTouch #1 pkg 06/17/24 06/21/24 Rx Verio test strips) blood-glucose meter (OneTouch #1 pkg 06/17/24 06/21/24 Rx Verio Flex Meter) carvedilol 12.5 mg tablet (Coreg) 12.5 mg PO Q12HR #60 tabs 06/17/24 06/21/24 Rx hydrochlorothiazide 25 mg tablet 25 mg PO QAM #30 tabs 06/17/24 06/21/24 Rx insulin glargine 100 unit/mL (3 24 unit (0.24 mL) subcut QPM #15 mL 06/17/24 06/21/24 Rx mL) subcutaneous pen (Lantus Solostar U-100 Insulin) insulin syringe,safety needle 0.5 #1 pkg 06/17/24 06/21/24 Rx mL 31 gauge x 5/16 insulin syringe,safety needle 1 mL #1 pkg 06/17/24 06/21/24 Rx 32 gauge x 5/16 lancets 30 gauge (OneTouch Delica #1 pkg 06/17/24 06/21/24 Rx Plus Lancet) lisinopril 20 mg tablet 40 mg (2 x 20 mg) PO QAM #60 tabs 06/17/24 06/21/24 Rx pen needle, diabetic 32 gauge x #1 pkg 06/17/24 06/21/24 Rx 1/4 pen needle, diabetic 32 gauge x #1 pkg 06/17/24 06/21/24 Rx 5/32 potassium chloride 10 mEq 10 meq PO BIDWM #60 tabs 06/17/24 06/21/24 Rx tablet,extended release Allergies Allergy/AdvReac Type Severity Reaction Status Date / Time atenolol Allergy Intermediate Chest Pain Verified 06/24/24 09:52 Vital Signs Vital Signs - 24 hr 06/26/24 14:57 06/26/24 16:00 06/26/24 19:03 Temperature 36.7 C 36.6 C Pulse Rate 121 H 102 H 105 H Respiratory Rate 18 18 Blood Pressure 115/71 95/66 L Pulse Oximetry 99 99 Oxygen Delivery 06/26/24 20:00 06/26/24 20:00 06/26/24 20:20 Temperature Pulse Rate 90 Respiratory Rate Blood Pressure Pulse Oximetry 97 Oxygen Delivery Room Air Room Air 06/26/24 22:18 06/27/24 00:00 06/27/24 04:00 Temperature 36.8 C Pulse Rate 91 91 111 H Respiratory Rate 16 Blood Pressure 100/58 L Pulse Oximetry 97 Oxygen Delivery 06/27/24 06:00 06/27/24 10:02 Temperature 36.2 C L Pulse Rate 117 H 108 H Respiratory Rate 18 Blood Pressure 142/65 H Pulse Oximetry 97 Oxygen Delivery Exam 2 Const: General: comfortable, no acute distress, alert and awake O rientation/consciousness: patient oriented x3 HENMT: Head: normal to inspection Eyes: General: appearance normal, both eyes and all related structures P upils: Equal, round and reactive pupils present Neck: Neck: normal visual inspection, supple and no JVD Carotids: normal carotid upstroke Resp: Effort & Inspection: normal respiratory effort Auscultation: clear to auscultation bilaterally Cardio: Rate: regular rate Rhythm: regular rhythm Heart sounds: S2 normal heart sound present and Murmur heart sound present systolic II/ and at the left sternal border GI: Auscultation: normal bowel sounds Skin: General skin exam: normal color Neuro: General: patient oriented x3 Cranial nerves: Yes Equal, round and reactive pupils present Extrem: General: normal to inspection Other: no edema Psych: Appearance: grossly normal Mental Status: mental status grossly normal Results Labs and Meds 06/27/24 06:58 06/27/24 06:58 Lab results: Cardiac Enzymes 06/26/24 06/27/24 Range/Units 21:08 06:58 AST 39 H 32 (14-36) U/L CBC 06/26/24 06/26/24 06/27/24 Range/Units 07:27 23:06 06:58 WBC 15.8 H 16.4 H 13.8 H (4.5-10.0) K/mm3 RBC 5.91 H 4.94 4.89 (4.2-5.4) M/mm3 Hgb 16.5 H 14.0 13.5 (12.0-15.0) g/dL Hct 51.0 H 41.9 41.6 (37.0-47.0) % Plt Count 298 301 258 (150-375) k/mm3 Lymph # (Auto) 4.66 H 3.03 (0.9-3.2) K/mm3 [place] # (Auto) 1.4 H 1.2 H (0.1-0.6) K/mm3 Eos # (Auto) 0.2 0.2 (0-0.3) K/mm3 Baso # (Auto) 0.1 0.1 (0.0-0.1) K/mm3 Comprehensive Metabolic Panel 06/26/24 06/26/24 06/27/24 Range/Units 14:41 21:08 06:58 Sodium 137 138 (137-145) mmol/L Potassium 3.3 L 2.9 L 2.8 L* (3.4-5.0) mmol/L Chloride 109 H 111 H (98-107) mmol/L Carbon Dioxide 17 L 16 L (22-30) mmol/L BUN 19 H 17 (7-17) mg/dL Creatinine 1.57 H 1.07 H (0.7-1.0) mg/dL Glucose 191 H 213 H (65-110) mg/dL Calcium 8.9 8.2 L (8.4-10.2) mg/dL AST 39 H 32 (14-36) U/L ALT 38 H 32 (6-35) U/L Alkaline Phosphatase 76 83 (38-126) U/L Total Protein 7.0 6.0 L (6.3-8.2) g/dL Albumin 3.6 3.5 (3.5-5.1) g/dL Intake and Output 06/26/24 06/27/24 06/27/24 23:59 07:59 15:59 Intake Total 120 Output Total 0 Balance 120 0 Intake: Oral 120 Output: Urine 0 Stool 0 Other: Number of Bowel Movements Today 1 Patient Weight 06/27/24 23:59 Weight 105.1 kg
[2024-06-27 13:31] LABS: Cholesterol 107 mg/dL (0-200); HDL Direct 40 mg/dL; Triglycerides 141 mg/dL (<150)
[2024-06-27 13:41] LABS: LDL Cholesterol Direct 39 mg/dL
[2024-06-27 14:04] LABS: Vitamin D 25 Hydroxy 36.6 ng/mL
[2024-06-27 14:37] LABS: Folic Acid 13.1 ng/mL (2.76->20)
[2024-06-27 16:08] LABS: Urea Random Urine 297 MG/DL
[2024-06-27 16:11] LABS: Creatinine Urine 44.8 mg/dL; Total Protein Urine Random 65 mg/dL; Ur Ttl Prot Creatinine Ratio 1.45 mg/mg (0-0.20)
[2024-06-27 17:31] LABS: Glucose Point of Care 183 mg/dl (65-105)
[2024-06-27 17:34] LABS: Potassium Urine Random 22.4 meq/L; Sodium Urine Random 132 meq/L
[2024-06-27 18:15] LABS: Potassium 2.5 mmol/L (3.4-5.0)
[2024-06-27] MEDS: traZODone HCL 50 MG TABLET PO (20:31)
[2024-06-27] MEDS: INSULIN GLARGINE (*BKC) 100 UNITS/ML 50 UNITS SUB-Q (20:40)
[2024-06-28] VITALS (13 sets, daily range): BP systolic 148–173; BP diastolic 72–93; PULSE 91–116; RESP 18–20; TEMP 36.2–36.7; O2SAT 97–98
[2024-06-28] MEDS: ONDANSETRON INJ 4 MG/2 ML VIAL IV PUSH (00:47)
[2024-06-28] MEDS: SODIUM CHLORIDE 0.9% IV 1,000 ML 100 ML IV CONT ×3 (00:49→20:46)
[2024-06-28] MEDS: PROCHLORPERAZINE EDISYLATE 10 MG/2 ML VIAL IV PUSH (02:02)
[2024-06-28] MEDS: SUCRALFATE SUSP 100 MG/ML 10 ML UDC 1000 MG PO ×4 (06:04→20:48)
[2024-06-28] MEDS: CYCLOBENZAPRINE HCL 5 MG TABLET PO ×2 (06:09→20:47)
[2024-06-28] MEDS: CENTRAL LINE FLUSH 10 ML IV PUSH ×3 (06:09→20:54)
[2024-06-28 06:29] LABS: Hematocrit 40.4 % (37.0-47.0); Hemoglobin 13.1 g/dL (12.0-15.0); Mean Corpuscular HGB Conc 32.4 g/dl (32-36); Mean Corpuscular Hemoglobin 27.6 pg (26-34); Mean Corpuscular Volume 85.2 fl (80-100); Mean Platelet Volume 10.9 fl (7.4-10.4); Platelet Count Result 311 k/mm3 (150-375); Red Blood Count 4.74 M/mm3 (4.2-5.4); Red Cell Distribution Width 14.3 % (11.5-14.5); White Blood Count 12.5 K/mm3 (4.5-10.0)
[2024-06-28 06:50] LABS: Alanine Aminotransferase 31 U/L (6-35); Albumin Level 3.5 g/dL (3.5-5.1); Alkaline Phosphatase 75 U/L (38-126); Anion Gap 11 mmol/L (4-12); Aspartate Amino Transferase 34 U/L (14-36); Bilirubin,Total 0.5 mg/dL (0.2-1.3); Blood Urea Nitrogen 9 mg/dL (7-17); Calcium 8.5 mg/dL (8.4-10.2); Carbon Dioxide 22 mmol/L (22-30); Chloride 105 mmol/L (98-107); Estimated CRCL calculation 109 ml/min; Estimated Glomerular Filt Rate > 60; Glucose 169 mg/dL (65-110); Magnesium 1.4 mg/dL (1.6-2.3); Phosphorus 3.1 mg/dL (2.5-4.5); Potassium 2.5 mmol/L (3.4-5.0); Sodium 138 mmol/L (137-145)
[2024-06-28 07:21] LABS: Thyroid Stimulating Hormone Reflex 0.703 uIU/mL (0.465-4.68)
--- NOTE | 2024-06-28 07:22 | P.PNIM_ITS ---
Progress Note: A&P Assessment and Plan (1) Sepsis: Code(s): A41.9 - Sepsis, unspecified organism Status: Acute Assessment and Plan: Meets SIRS criteria: Tachycardia, Leukocytosis - lactic acid: pending - suspected source: unknown - blood cultures drawn on 06/23 - UA: 3+ protein, 1+ glucose, 2+ ketones, 1+ blood - CXR: No acute cardiopulmonary disease. - Preliminary blood cultures negative - Tachycardia and tachypnea likely some component of anxiety 06/27 - Repeat sepsis workup was initiated on 06/26 due to AMS - Blood cultures drawn on 06/27 pending - Repeat UA: 2+ leukocyte esterase, 11-20 WBC, culture pending - Head CT and EEG normal - Pending MR Brain and US Carotid duplex at this time 06/28 - and UC pending - US Carotid Duplex: <50% stenosis in the right internal carotid artery, 50-69% stenosis in the left internal carotid artery - Brain MRI pending (2) Intractable nausea and vomiting: Code(s): R11.2 - Nausea with vomiting, unspecified Status: Acute Assessment and Plan: * CT Abd/pelvis without acute findings * Antiemetics, IVFs * NPO, continue holding medications * Continue Protonix 40 mg daily * Elevated gap and beta hydroxybutyrate however pH is 7.434. She is not acidotic. * IV Compazine q.6 p.r.n. * EGD report: Reflux esophagitis, grade 1. Mild gastritis in antrum. Multiple biopsies taken 06/27 * N/v worsening today/last night, vomiting again * No episodes of emesis throughout afternoon today (3) Hypokalemia: Code(s): E87.6 - Hypokalemia Status: Chronic Assessment and Plan: * In ED: 3.6 * Likely secondary to continuous Vomiting and associated nausea. * Continue to monitor and supplement as needed * 06/28: K 2.5 * 40 meq IV Krider, 40meq BID PO as tolerated * Nephrology consult, pending recommendations (4) Syncope and collapse: Code(s): R55 - Syncope and collapse Status: Acute Assessment and Plan: * Rapid response team called on 06/26 for possible syncope, patient does not think that she had complete LOC * Patient appeared to be staring blankly and responding to nursing staff, had 2 additional episodes in the bathroom * Patient states she believes it is exertional or when she stands * EEG and head CT unremarkable 06/28 * Brain MRI * Orthostatic vital signs * Carotid Doppler:<50% stenosis in the right internal carotid artery, 50-69% stenosis in the left internal carotid artery (5) Urinary tract infection: Code(s): N39.0 - Urinary tract infection, site not specified Status: Acute Assessment and Plan: - UA on 06/27: Cloudy, 1+ protein, 2+ leukocyte esterase, 11-20 urine WBC - UC obtained on 06/27, still pending - started on Rocephin (6) Dehydration: Code(s): E86.0 - Dehydration Status: Acute Assessment and Plan: * In ED: K=3.0, likely secondary to vomiting. Will supp as needed * Continue to trend AM labs * Monitor kidney function * IVF for rehydration * Encourage PO intake (7) Insulin dependent diabetes mellitus: Status: Chronic Assessment and Plan: * Continue to hold oral hypoglycemic meds * Sliding scale insulin * Hypoglycemic protocol * Accu-Cheks a.c. and HS * A1c 7.2% (8) HLD (hyperlipidemia): Code(s): E78.5 - Hyperlipidemia, unspecified Status: Chronic Assessment and Plan: * Continue medications once confirmed and can tolerate * Diabetic Consistent Carb diet (9) Diastolic dysfunction: Code(s): I51.89 - Other ill-defined heart diseases Status: Chronic Assessment and Plan: * Daily weight * Accurate intake and output * Patient currently appears euvolemic * Pt denies CP/SOB/cough (10) HTN (hypertension): Code(s): I10 - Essential (primary) hypertension Status: Chronic Assessment and Plan: * Restarting at home medications * IV hydralazine ordered with parameters. Telemetry -91 bpm Metoprolol 25mg BID (11) Anxiety and depression: Code(s): F41.9 - Anxiety disorder, unspecified; F32.9 - Major depressive disorder, single episode, unspecified Status: Chronic Assessment and Plan: * Continue home medications when confirmed and can tolerate Plan -Continue with IVF and antiemetics Time Spent With Patient Time: 15-25 Subjective Date/time seen: 06/28/24 07:22 Interval history: Interval history: 63-year-old female patient with history of heart failure, rheumatoid arthritis, asthma, BC, anxiety, depression, GERD, hypertension, hyperlipidemia and type 2 diabetes mellitus comes to the emergency room today with acute onset of nausea and vomiting. 06/28/2024 Patient sitting comfortably in bed. 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 No episodes of emesis today. Potassium low at 2.5 despite IV replacement. Added on 40meq BID K replacement given no emesis today. Also replacing Mg. Plan for Brain MRI today. Review of Systems Review of Systems: All systems reviewed & are unremarkable except as noted in HPI and below Gastrointestinal: Gastrointestinal: Reports abdominal pain (mild RLQ), Denies diarrhea, Reports nausea and Reports vomiting Exam Const: General: no acute distress Other: Ill appearing, obese. HENMT: Face/Nose/Sinus: Normal nares present Mouth: Yes dry mucous membranes Eyes: General: appearance normal, both eyes and all related structures Sclera: sclerae normal Neck: Neck: supple and no JVD Chest: Other: Nontender Resp: Effort & Inspection: normal respiratory effort Auscultation: clear to auscultation bilaterally Cardio: Rate: regular rate Rhythm: regular rhythm Heart sounds: no gallops, Murmur heart sound present (Grade 2 systolic) and no rubs GI: Inspection: non-distended Auscultation: normal bowel sounds Other: No tenderness to palpation, no guarding Skin: General skin exam: normal color, no rashes or lesions noted, No lesion and No rashes Lesions: no lesions noted Rashes: no rashes noted Wounds: no wounds Neuro: General: gait normal Speech: normal speech Motor exam (neuro): 5/5 motor strength present throughout and Normal motor muscle tone present throughout Sensory Exam: normal sensation Extrem: General: normal to inspection, no edema and no pedal edema Psych: Mental Status: mental status grossly normal Affect: normal affect and Hostile affect present Other: Patient obviously upset that I will not allow her to have ice chips as she rolls her eyes at me Objective Data Vital Signs Vital Signs: Vital Signs - 24 hr 06/27/24 08:00 06/27/24 10:02 06/27/24 12:00 Temperature Pulse Rate 115 H 108 H Respiratory Rate Blood Pressure Pulse Oximetry 98 Oxygen Delivery Room Air Fraction of Inspired Oxygen 06/27/24 12:00 06/27/24 14:00 06/27/24 16:00 Temperature 98.7 F Pulse Rate 93 95 99 Respiratory Rate 20 Blood Pressure 176/89 H Pulse Oximetry 98 Oxygen Delivery Fraction of Inspired Oxygen 06/27/24 19:46 06/27/24 19:48 06/27/24 20:00 Temperature Pulse Rate 106 H 106 H Respiratory Rate 20 20 Blood Pressure Pulse Oximetry 96 Oxygen Delivery Room Air Room Air Fraction of Inspired Oxygen 21 06/27/24 20:00 06/27/24 22:00 06/28/24 00:00 Temperature 97.1 F L Pulse Rate 110 H 108 H 98 Respiratory Rate 18 Blood Pressure 150/82 H Pulse Oximetry 98 Oxygen Delivery Fraction of Inspired Oxygen 06/28/24 04:00 Temperature Pulse Rate 116 H Respiratory Rate Blood Pressure Pulse Oximetry Oxygen Delivery Fraction of Inspired Oxygen Intake/Output Intake/Output: Intake & Output 06/25/24 06/26/24 06/27/24 06/28/24 23:59 23:59 23:59 23:59 Intake Total 0582 655 5219 428.3 Output Total 1600 200 Balance 1130 970 -480 228.3 Meds/Results Medications: Active Medications Generic Name Dose Route Start Last Admin Trade Name Freq PRN Reason Stop Dose Admin Albuterol 2.5 mg 06/25/24 14:25 Albuterol Sulfate Neb 2.5 Mg/3 Ml Inh INHALATION Q6H PRN Shortness Of Breath Or Wheezing Aspirin 81 mg 06/26/24 09:00 06/27/24 11:13 Aspirin 81 Mg Enteric Tablet PO Not Given QAM JUDITH Cyclobenzaprine HCl 5 mg 06/25/24 14:25 06/28/24 06:09 Cyclobenzaprine Hcl 5 Mg Tablet PO 5 mg TID PRN Administration muscle pain Dextrose 12.5 gm 06/21/24 02:12 Dextrose 50% 25 Gm/50 Ml Syringe IV PUSH PRN PRN Hypoglycemia Protocol Ergocalciferol 50,000 units 06/27/24 09:00 06/27/24 11:13 Ergocalciferol 50,000 Units Capsule PO Not Given Mo@0900 JUDITH Escitalopram Oxalate 10 mg 06/26/24 14:45 06/27/24 11:14 Escitalopram Oxalate 10 Mg Tablet PO Not Given DAILY JUDITH Famotidine 20 mg 06/25/24 14:25 Famotidine 20 Mg Tablet PO Q12HR PRN acid reflux Ferrous Sulfate 325 mg 06/25/24 14:50 Ferrous Sulfate [address] BY MOUTH BID PRN menstrual bleeding Fluticasone Propionate 1 spray 06/25/24 14:25 Fluticasone Propionate 0.05% Na Spr 16 Gm Btl (*Bkc) NASAL DAILY PRN allergy symptoms Glucagon 1 mg 06/21/24 02:12 Glucagon For Inj 1 Mg Vial IM PRN PRN Hypoglycemia Protocol Glucose 15 gm 06/21/24 02:12 Glucose Oral Gel 15 Gm Of Glucse In 37.5 Gm Tube PO PRN PRN Hypoglycemia Protocol Hydralazine HCl 10 mg 06/21/24 02:12 06/24/24 10:46 Hydralazine Hcl 20 Mg/Ml Vial IV PUSH 10 mg Q8H PRN Administration Blood Pressure - High Dextrose 1,000 mls @ 100 mls/hr 06/21/24 02:12 Dextrose 5% 1,000 Ml IVPB PRN PRN Hypoglycemia Protocol Sodium Chloride 1,000 mls @ 100 mls/hr 06/27/24 04:05 06/28/24 00:49 Normal Saline Iv IV CONT 100 mls/hr .Q10H JUDITH Administration Ceftriaxone Sodium 2 gm in 100 mls @ 200 mls/hr 06/27/24 13:00 06/27/24 13:04 Rocephin 2 Gm/Ns 100 Ml IVPB 200 mls/hr DAILY JUDITH Administration Potassium Chloride 40 meq/ 520 mls @ 130 mls/hr 06/28/24 07:00 Sodium Chloride IVPB 06/28/24 10:59 ONCE ONE Magnesium Sulfate/Dextrose 1 gm in 100 mls @ 100 mls/hr 06/28/24 07:00 Magnesium Sulf 1 Gm/D5w 100 Ml IVPB 06/28/24 07:59 ONCE ONE Insulin Aspart 2 - 5 units 06/21/24 08:00 06/27/24 17:00 Insulin Aspart (*Bkc) 100 Units/Ml SUB-Q Not Given TIDWM JUDITH Protocol Insulin Aspart 1 - 2 units 06/21/24 21:00 06/27/24 20:40 Insulin Aspart (*Bkc) 100 Units/Ml SUB-Q Not Given HS JUDITH Protocol Insulin Glargine 50 units 06/26/24 21:00 06/27/24 20:40 Insulin Glargine (*Bkc) 100 Units/Ml SUB-Q 50 units HS JUDITH Administration Lisinopril 40 mg 06/26/24 09:00 06/27/24 10:09 Lisinopril 20 Mg Tablet PO 40 mg QAM JUDITH Administration Loratadine 10 mg 06/26/24 09:00 06/27/24 11:14 Loratadine 10 Mg Tablet PO Not Given QAM JUDITH Magnesium Chloride 64 mg 06/25/24 09:00 06/25/24 08:46 Magnesium Chloride 64 Mg Tablet PO 64 mg QAM JUDITH Administration Metformin HCl 500 mg 06/25/24 17:00 06/27/24 11:14 Metformin Hcl Xr 500 Mg Tab.Sr.24h PO Not Given BID JUDITH Metoprolol Tartrate 25 mg 06/26/24 21:00 06/27/24 20:31 Metoprolol Tartrate 25 Mg Tablet PO 25 mg Q12HR JUDITH Administration Ondansetron HCl 4 mg 06/21/24 02:08 06/28/24 00:47 Ondansetron Inj 4 Mg/2 Ml Vial IV PUSH 4 mg Q6HR PRN Administration Nausea And Vomiting Pantoprazole Sodium 40 mg 06/25/24 09:00 06/26/24 08:45 Pantoprazole 40 Mg Tablet PO 40 mg QAM JUDITH Administration Pantoprazole Sodium 40 mg 06/27/24 09:00 06/27/24 11:15 Pantoprazole Sodium Iv 40 Mg Vial IV PUSH Not Given DAILY [facility] Potassium Chloride 40 meq 06/28/24 08:00 Potassium Chloride 20 Meq Er Tablet PO BIDWM [facility] Pregabalin 200 mg 06/26/24 09:00 06/27/24 11:14 Pregabalin (*Crx) 50 Mg Capsule PO Not Given DAILY [facility] Prochlorperazine Edisylate 10 mg 06/23/24 11:14 06/28/24 02:02 Prochlorperazine Edisylate 10 Mg/2 Ml Vial IV PUSH 10 mg Q6H PRN Administration Nausea And Vomiting Rosuvastatin Calcium 40 mg 07/02/24 09:00 Rosuvastatin 20 Mg Tablet PO WeFr@0900 JUDITH Fluticasone/Salmeterol 2 puff 06/25/24 20:00 06/27/24 19:46 Fluticasone/Salmeterol 230-21 Mcg Inhaler 1 Puff INHALATION Not Given Q12HRT [facility] Sodium Chloride 10 ml 06/27/24 14:00 06/28/24 06:09 Central Line Flush IV PUSH 10 ml Q8HR JUDITH Administration Sodium Chloride 10 ml 06/27/24 12:16 Central Line Flush IV PUSH PRN PRN with TPN bag changes Sodium Chloride 20 ml 06/27/24 12:16 Central Line Flush IV PUSH PRN PRN after blood draws Sucralfate 1,000 mg 06/23/24 06:30 06/28/24 06:04 Sucralfate Susp 100 Mg/Ml 10 Ml Udc PO 1,000 mg ACHS JUDITH Administration Trazodone HCl 50 mg 06/25/24 14:30 06/27/24 20:31 Trazodone Hcl 50 Mg Tablet PO 50 mg QHS PRN Administration Insomnia Radiology Results: ITS Impressions Abdomen/Pelvis CT 06/20/24 23:57 IMPRESSION: Redemonstration of a chronic mass within the body of the uterus distorting the endometrial canal, unchanged dating back to 2015. Hepatomegaly with borderline splenomegaly. Head CT 06/26/24 20:15 IMPRESSION: No acute intracranial findings. Pansinusitis. Chest X-Ray 06/26/24 21:03 IMPRESSION: No acute cardiopulmonary pathology Carotid Doppler Study 06/27/24 17:30 IMPRESSION: 1. <50% stenosis in the right internal carotid artery. 2. 50-69% stenosis in the left internal carotid artery. Labs Labs: Laboratory Results - last 24 hr 06/26/24 06/27/24 06/27/24 21:40 06:22 06:58 WBC RBC Hgb Hct MCV MCH MCHC RDW Plt Count MPV Sodium 138 Potassium 2.8 L* Chloride 111 H Carbon Dioxide 16 L Anion Gap 11 BUN 17 Creatinine 1.07 H Estim Creat Clear Calc 64 Estimated GFR 53 L Glucose 213 H POC Capillary Glucose 192 H 234 H Calcium 8.2 L Phosphorus Magnesium 1.9 Total Bilirubin 0.8 AST 32 ALT 32 Alkaline Phosphatase 83 Total Creatine Kinase 42 Total Protein 6.0 L Albumin 3.5 Triglycerides Cholesterol LDL Cholesterol Direct HDL Direct Vitamin B12 Vitamin D 25-Hydroxy Folate TSH (Reflex) Urine Color Urine Appearance Urine pH Ur Specific [place] Urine Protein Urine Glucose (UA) Urine Ketones Ur Blood (Man) Urine Nitrate Urine Bilirubin Urine Urobilinogen Add Ur Microanalysis Leukocyte Esterase Rfl Urine RBC Urine WBC Ur Squamous Epith Cells Urine Bacteria Urine Casts Hyaline Casts U Random Total Protein Ur Random Sodium Ur Random Potassium Ur Random Urea Urine Total Volume Urine Creatinine Protein/Creat Ratio 2 06/27/24 06/27/24 06/27/24 07:59 09:11 12:29 WBC RBC Hgb Hct MCV MCH MCHC RDW Plt Count MPV Sodium Potassium Chloride Carbon Dioxide Anion Gap BUN Creatinine Estim Creat Clear Calc Estimated GFR Glucose POC Capillary Glucose 218 H 203 H Calcium Phosphorus Magnesium Total Bilirubin AST ALT Alkaline Phosphatase Total Creatine Kinase Total Protein Albumin Triglycerides Cholesterol LDL Cholesterol Direct HDL Direct Vitamin B12 Vitamin D 25-Hydroxy Folate TSH (Reflex) Urine Color Yellow Urine Appearance Cloudy H Urine pH 6.5 Ur Specific [place] 1.009 Urine Protein 1+ H Urine Glucose (UA) Trace H Urine Ketones Negative Ur Blood (Man) Negative Urine Nitrate Negative Urine Bilirubin Negative Urine Urobilinogen 0.2 Add Ur Microanalysis Reviewed Leukocyte Esterase Rfl 2+ H Urine RBC 0-2 Urine WBC 11-20 H Ur Squamous Epith Cells None seen Urine Bacteria None seen Urine Casts 6-10 Hyaline Casts Present U Random Total Protein Ur Random Sodium Ur Random Potassium Ur Random Urea Urine Total Volume Urine Creatinine Protein/Creat Ratio 2 06/27/24 06/27/24 06/27/24 13:06 15:31 15:31 WBC RBC Hgb Hct MCV MCH MCHC RDW Plt Count MPV Sodium Potassium Chloride Carbon Dioxide Anion Gap BUN Creatinine Estim Creat Clear Calc Estimated GFR Glucose POC Capillary Glucose Calcium Phosphorus Magnesium Total Bilirubin AST ALT Alkaline Phosphatase Total Creatine Kinase Total Protein Albumin Triglycerides 141 Cholesterol 107 LDL Cholesterol Direct 39 HDL Direct 40 Vitamin B12 935.0 H Vitamin D 25-Hydroxy 36.6 Folate 13.1 TSH (Reflex) Urine Color Urine Appearance Urine pH Ur Specific [place] Urine Protein Urine Glucose (UA) Urine Ketones Ur Blood (Man) Urine Nitrate Urine Bilirubin Urine Urobilinogen Add Ur Microanalysis Leukocyte Esterase Rfl Urine RBC Urine WBC Ur Squamous Epith Cells Urine Bacteria Urine Casts Hyaline Casts U Random Total Protein 65 Cancelled Ur Random Sodium 132 Ur Random Potassium 22.4 Ur Random Urea 297 Urine Total Volume Cancelled Urine Creatinine 44.8 Protein/Creat Ratio 2 06/27/24 06/27/24 06/27/24 15:31 16:58 17:26 WBC RBC Hgb Hct MCV MCH MCHC RDW Plt Count MPV Sodium Potassium 2.5 L* Chloride Carbon Dioxide Anion Gap BUN Creatinine Estim Creat Clear Calc Estimated GFR Glucose POC Capillary Glucose 183 H Calcium Phosphorus Magnesium Total Bilirubin AST ALT Alkaline Phosphatase Total Creatine Kinase Total Protein Albumin Triglycerides Cholesterol LDL Cholesterol Direct HDL Direct Vitamin B12 Vitamin D 25-Hydroxy Folate TSH (Reflex) Urine Color Urine Appearance Urine pH Ur Specific [place] Urine Protein Urine Glucose (UA) Urine Ketones Ur Blood (Man) Urine Nitrate Urine Bilirubin Urine Urobilinogen Add Ur Microanalysis Leukocyte Esterase Rfl Urine RBC Urine WBC Ur Squamous Epith Cells Urine Bacteria Urine Casts Hyaline Casts U Random Total Protein Ur Random Sodium Ur Random Potassium Ur Random Urea Urine Total Volume Urine Creatinine Cancelled Protein/Creat Ratio 2 1.45 H 06/28/24 05:59 WBC 12.5 H RBC 4.74 Hgb 13.1 Hct 40.4 MCV 85.2 MCH 27.6 MCHC 32.4 RDW 14.3 Plt Count 311 MPV 10.9 H Sodium 138 Potassium 2.5 L* Chloride 105 Carbon Dioxide 22 Anion Gap 11 BUN 9 D Creatinine 0.61 L Estim Creat Clear Calc 109 Estimated GFR > 60 Glucose 169 H POC Capillary Glucose Calcium 8.5 Phosphorus 3.1 Magnesium 1.4 L Total Bilirubin 0.5 AST 34 ALT 31 Alkaline Phosphatase 75 Total Creatine Kinase Total Protein 6.0 L Albumin 3.5 Triglycerides Cholesterol LDL Cholesterol Direct HDL Direct Vitamin B12 Vitamin D 25-Hydroxy Folate TSH (Reflex) 0.703 Urine Color Urine Appearance Urine pH Ur Specific [place] Urine Protein Urine Glucose (UA) Urine Ketones Ur Blood (Man) Urine Nitrate Urine Bilirubin Urine Urobilinogen Add Ur Microanalysis Leukocyte Esterase Rfl Urine RBC Urine WBC Ur Squamous Epith Cells Urine Bacteria Urine Casts Hyaline Casts U Random Total Protein Ur Random Sodium Ur Random Potassium Ur Random Urea Urine Total Volume Urine Creatinine Protein/Creat Ratio 2 Quality VTE Prophylaxis VTE prophylaxis: mechanical ordered
[2024-06-28] MEDS: MAGNESIUM SULF 1 GM/D5W 100 ML 1 GM/100 ML BAG IVPB (08:26)
[2024-06-28 08:34] LABS: Glucose Point of Care 165 mg/dl (65-105)
[2024-06-28 08:34] LABS: Glucose Point of Care 180 mg/dl (65-105)
[2024-06-28 08:37] LABS: Glucose Point of Care 195 mg/dl (65-105)
[2024-06-28] MEDS: lisinopriL 20 MG TABLET 40 MG PO (09:18)
[2024-06-28] MEDS: METOPROLOL TARTRATE 25 MG TABLET PO ×2 (09:18→20:48)
[2024-06-28] MEDS: POTASSIUM CHLORIDE 20 MEQ ER TABLET 40 MEQ PO ×2 (09:21→17:35)
[2024-06-28] MEDS: PANTOPRAZOLE SODIUM IV 40 MG VIAL IV PUSH (09:22)
[2024-06-28] MEDS: POTASSIUM CHLORIDE INJ 40 MEQ in SODIUM CHLORIDE 0.9% IV 500 ML 130 MEQ IVPB ×2 (09:26→17:34)
--- NOTE | 2024-06-28 10:40 | P.PNNP_ITS ---
Progress Note: A&P Assessment and Plan (1) Hypokalemia: Code(s): E87.6 - Hypokalemia Status: Chronic Assessment and Plan: * chronic issue for the last few years * however, tends to be exacerbated with acute hospitalization from review of records * usually stable/controlled with outpatient medication regimen * noted persistence during this hospitalization * however, complicated by GI issues/symptoms (nausea/vomiting/dimished oral intake) * some other disease process responsible for this condition: * possible Gitelman syndrome -- low K+ with low magnesium noted but usually associated with low blood pressure * possible distal type IV RTA(?) -- common in diabetic patients * evaluation to date noted: * TSH okay * cortisol normal * urine electrolytes non-prerenal * urine potassium in normal range * other testing pending * perhaps this is just a situation where she is total potassium store depleted worsened by GI symptoms and low magnesium.... * continue supplementation as tolerated - oral replacement is favorable to IV if possible * continue to ensure magnesium is stable * will start schedule magnesium oxide * continue PRN IV supplementation * follow trend of repeat K+ levels (2) Intractable nausea and vomiting: Code(s): R11.2 - Nausea with vomiting, unspecified Status: Acute Assessment and Plan: * fluctuating issue since admission * on IVFs and antiemetics * GI following: * s/p EGD on 06/24: reflux esophagitis and mild gastritis in antrum * on PPI * likely a contributing component to #1 (3) Syncope and collapse: Code(s): R55 - Syncope and collapse Status: Acute Assessment and Plan: * as noted by rapid response on 06/26 * no completed loss of consciousness per patient * described as blank stare per nursing * testing to date noted: * EEG unremarkable * CT of head without any acute findings * carotid dopplers noted * MRI of brain pending * continue supportive therapy (4) Urinary tract infection: Code(s): N39.0 - Urinary tract infection, site not specified Status: Acute Assessment and Plan: * UA suggestive: * cloudy, 1+ protein, 2+ leukocyte esterase, 11-20 urine WBC * follow-up on urine culture results * on antibiotics (5) HTN (hypertension): Code(s): I10 - Essential (primary) hypertension Status: Chronic Assessment and Plan: * reasonable control * on lisinopril and metoprolol * given her issues with LE edema in the past and #1, consider adding K+ sparing diuretic on discharge (i.e. spironolactone, triameterene or amiloride) * follow trend of hemodynamics (6) Insulin dependent diabetes mellitus: Status: Chronic Assessment and Plan: * follow accu-cheks * glycemic control per hospitalist Will continue to follow. L Subjective Date/time seen: 06/28/24 10:40 Interval history: Follow-up for acute hypokalemia. K+ still running low despite IV replacement in the last 24 hours; scheduled oral replacement started today as well getting IV magnesium as well; no further vomiting since yesterday morning and seems to be tolerating oral intake/medications at this time; no acute distress voiced at the time of my visit. Exam 2 Narrative: General: WD/WN female in NAD Heart: normal S1 and S2; no rub Lungs: clear to auscultation Abdomen: soft, nontender, nondistended, positive bowel sounds Extremities: no cyanosis or clubbing; no edema Skin: warm and dry Objective Data Vital Signs Vital Signs: Vital Signs Temp Pulse Resp BP Pulse Ox O2 Del Method FiO2 06/28/24 09:18 104 H 06/28/24 06:00 97.3 F L 103 H 18 148/72 H 97 06/28/24 04:00 116 H 06/28/24 00:00 98 06/27/24 22:00 97.1 F L 108 H 18 150/82 H 98 06/27/24 20:00 110 H 06/27/24 20:00 Room Air 06/27/24 19:48 106 H 20 96 Room Air 21 06/27/24 19:46 106 H 20 06/27/24 16:00 99 06/27/24 14:00 98.7 F 95 20 176/89 H 98 06/27/24 12:00 93 06/27/24 12:00 98 Room Air Intake/Output Intake/Output: Intake & Output 06/25/24 06/26/24 06/27/24 06/28/24 23:59 23:59 23:59 23:59 Intake Total 2003 556 4474 1028.3 Output Total 1600 2100 Balance 1130 970 -480 -1071.7 Meds/Results Medications: Active Medications Generic Name Dose Route Start Last Admin Trade Name Freq PRN Reason Stop Dose Admin Albuterol 2.5 mg 06/25/24 14:25 Albuterol Sulfate Neb 2.5 Mg/3 Ml Inh INHALATION Q6H PRN Shortness Of Breath Or Wheezing Aspirin 81 mg 06/26/24 09:00 06/27/24 11:13 Aspirin 81 Mg Enteric Tablet PO Not Given QAM JUDITH Cyclobenzaprine HCl 5 mg 06/25/24 14:25 06/28/24 06:09 Cyclobenzaprine Hcl 5 Mg Tablet PO 5 mg TID PRN Administration muscle pain Dextrose 12.5 gm 06/21/24 02:12 Dextrose 50% 25 Gm/50 Ml Syringe IV PUSH PRN PRN Hypoglycemia Protocol Ergocalciferol 50,000 units 06/27/24 09:00 06/27/24 11:13 Ergocalciferol 50,000 Units Capsule PO Not Given Mo@0900 JUDITH Escitalopram Oxalate 10 mg 06/26/24 14:45 06/27/24 11:14 Escitalopram Oxalate 10 Mg Tablet PO Not Given DAILY JUDITH Famotidine 20 mg 06/25/24 14:25 Famotidine 20 Mg Tablet PO Q12HR PRN acid reflux Ferrous Sulfate 325 mg 06/25/24 14:50 Ferrous Sulfate [address] BY MOUTH BID PRN menstrual bleeding Fluticasone Propionate 1 spray 06/25/24 14:25 Fluticasone Propionate 0.05% Na Spr 16 Gm Btl (*Bkc) NASAL DAILY PRN allergy symptoms Glucagon 1 mg 06/21/24 02:12 Glucagon For Inj 1 Mg Vial IM PRN PRN Hypoglycemia Protocol Glucose 15 gm 06/21/24 02:12 Glucose Oral Gel 15 Gm Of Glucse In 37.5 Gm Tube PO PRN PRN Hypoglycemia Protocol Hydralazine HCl 10 mg 06/21/24 02:12 06/24/24 10:46 Hydralazine Hcl 20 Mg/Ml Vial IV PUSH 10 mg Q8H PRN Administration Blood Pressure - High Dextrose 1,000 mls @ 100 mls/hr 06/21/24 02:12 Dextrose 5% 1,000 Ml IVPB PRN PRN Hypoglycemia Protocol Sodium Chloride 1,000 mls @ 100 mls/hr 06/27/24 04:05 06/28/24 00:49 Normal Saline Iv IV CONT 100 mls/hr .Q10H JUDITH Administration Ceftriaxone Sodium 2 gm in 100 mls @ 200 mls/hr 06/27/24 13:00 06/27/24 13:04 Rocephin 2 Gm/Ns 100 Ml IVPB 200 mls/hr DAILY JUDITH Administration Insulin Aspart 2 - 5 units 06/21/24 08:00 06/28/24 09:12 Insulin Aspart (*Bkc) 100 Units/Ml SUB-Q Not Given TIDWM [facility] Protocol Insulin Aspart 1 - 2 units 06/21/24 21:00 06/27/24 20:40 Insulin Aspart (*Bkc) 100 Units/Ml SUB-Q Not Given HS [facility] Protocol Insulin Glargine 50 units 06/26/24 21:00 06/27/24 20:40 Insulin Glargine (*Bkc) 100 Units/Ml SUB-Q 50 units HS JUDITH Administration Lisinopril 40 mg 06/26/24 09:00 06/28/24 09:18 Lisinopril 20 Mg Tablet PO 40 mg QAM JUDITH Administration Loratadine 10 mg 06/26/24 09:00 06/27/24 11:14 Loratadine 10 Mg Tablet PO Not Given QAM JUDITH Magnesium Chloride 64 mg 06/25/24 09:00 06/25/24 08:46 Magnesium Chloride 64 Mg Tablet PO 64 mg QAM JUDITH Administration Metformin HCl 500 mg 06/25/24 17:00 06/27/24 11:14 Metformin Hcl Xr 500 Mg Tab.Sr.24h PO Not Given BID JUDITH Metoprolol Tartrate 25 mg 06/26/24 21:00 06/28/24 09:18 Metoprolol Tartrate 25 Mg Tablet PO 25 mg Q12HR JUDITH Administration Ondansetron HCl 4 mg 06/21/24 02:08 06/28/24 00:47 Ondansetron Inj 4 Mg/2 Ml Vial IV PUSH 4 mg Q6HR PRN Administration Nausea And Vomiting Pantoprazole Sodium 40 mg 06/25/24 09:00 06/26/24 08:45 Pantoprazole 40 Mg Tablet PO 40 mg QAM JUDITH Administration Pantoprazole Sodium 40 mg 06/27/24 09:00 06/28/24 09:22 Pantoprazole Sodium Iv 40 Mg Vial IV PUSH 40 mg DAILY JUDITH Administration Potassium Chloride 40 meq 06/28/24 08:00 06/28/24 09:21 Potassium Chloride 20 Meq Er Tablet PO 40 meq BIDWM JUDITH Administration Pregabalin 200 mg 06/26/24 09:00 06/27/24 11:14 Pregabalin (*Crx) 50 Mg Capsule PO Not Given DAILY JUDITH Prochlorperazine Edisylate 10 mg 06/23/24 11:14 06/28/24 02:02 Prochlorperazine Edisylate 10 Mg/2 Ml Vial IV PUSH 10 mg Q6H PRN Administration Nausea And Vomiting Rosuvastatin Calcium 40 mg 07/02/24 09:00 Rosuvastatin 20 Mg Tablet PO WeFr@0900 JUDITH Fluticasone/Salmeterol 2 puff 06/25/24 20:00 06/28/24 10:02 Fluticasone/Salmeterol 230-21 Mcg Inhaler 1 Puff INHALATION Not Given Q12HRT JUDITH Sodium Chloride 10 ml 06/27/24 14:00 06/28/24 06:09 Central Line Flush IV PUSH 10 ml Q8HR JUDITH Administration Sodium Chloride 10 ml 06/27/24 12:16 Central Line Flush IV PUSH PRN PRN with TPN bag changes Sodium Chloride 20 ml 06/27/24 12:16 Central Line Flush IV PUSH PRN PRN after blood draws Sucralfate 1,000 mg 06/23/24 06:30 06/28/24 06:04 Sucralfate Susp 100 Mg/Ml 10 Ml Udc PO 1,000 mg ACHS JUDITH Administration Trazodone HCl 50 mg 06/25/24 14:30 06/27/24 20:31 Trazodone Hcl 50 Mg Tablet PO 50 mg QHS PRN Administration Insomnia Radiology Results: ITS Impressions Abdomen/Pelvis CT 06/20/24 23:57 IMPRESSION: Redemonstration of a chronic mass within the body of the uterus distorting the endometrial canal, unchanged dating back to 2015. Hepatomegaly with borderline splenomegaly. Head CT 06/26/24 20:15 IMPRESSION: No acute intracranial findings. Pansinusitis. Chest X-Ray 06/26/24 21:03 IMPRESSION: No acute cardiopulmonary pathology Carotid Doppler Study 06/27/24 17:30 IMPRESSION: 1. <50% stenosis in the right internal carotid artery. 2. 50-69% stenosis in the left internal carotid artery. Labs Labs: Laboratory Tests 06/28/24 05:59 06/28/24 05:59 Calcium 8.5 Phosphorus 3.1 Magnesium 1.4 L Total Bilirubin 0.5 AST 34 ALT 31 Alkaline Phosphatase 75 Total Protein 6.0 L Albumin 3.5 Renin Pending Renin Activity Pending Aldosterone Pending Aldosterone/Renin Dir Pending TSH (Reflex) 0.703 Random Cortisol 17.20 Microbiology 06/27/24 06:58 Blood Blood Culture - Preliminary 06/27/24 07:06 Blood Blood Culture - Preliminary
[2024-06-28 12:15] LABS: Glucose Point of Care 238 mg/dl (65-105)
[2024-06-28] MEDS: INSULIN ASPART (*BKC) 100 UNITS/ML SUB-Q ×2 (12:38→17:55)
[2024-06-28] MEDS: HYDROcodone/acetaminophen (*CRX) 5-325 MG TABLET 1 TAB PO ×2 (15:44→20:47)
[2024-06-28 16:42] LABS: Potassium 2.6 mmol/L (3.4-5.0)
[2024-06-28 17:19] LABS: Glucose Point of Care 218 mg/dl (65-105)
[2024-06-28 18:22] LABS: Magnesium 1.1 mg/dL (1.6-2.3)
[2024-06-28] MEDS: MAGNESIUM SULF 4 GM/WATER100ML 4 GM/100 ML BAG IVPB (20:46)
[2024-06-28] MEDS: KCL 40 MEQ/WATER 100 ML 100 ML 25 ML IVPB (20:47)
[2024-06-28] MEDS: traZODone HCL 50 MG TABLET PO (20:48)
[2024-06-28] MEDS: INSULIN GLARGINE (*BKC) 100 UNITS/ML 50 UNITS SUB-Q (20:51)
[2024-06-29] VITALS (12 sets, daily range): BP systolic 112–160; BP diastolic 60–90; PULSE 88–117; RESP 16–18; TEMP 36.1–36.6; O2SAT 95–98
[2024-06-29] MEDS: ONDANSETRON INJ 4 MG/2 ML VIAL IV PUSH ×2 (00:30→08:58)
[2024-06-29] MEDS: SUCRALFATE SUSP 100 MG/ML 10 ML UDC 1000 MG PO ×4 (05:33→21:38)
[2024-06-29 05:50] LABS: Basophils Absolute Auto 0.1 K/mm3 (0.0-0.1); Basophils Percent Auto 0.4 % (0.2-1.2); Eosinophils Absolute Auto 0.2 K/mm3 (0-0.3); Eosinophils Percent Auto 1.6 % (0-4.4); Hemoglobin 13.1 g/dL (12.0-15.0); Immature Granulocyte Absolute 0.04 K/mm3 (0.00-0.031); Immature Granulocyte Percent A 0.3 % (0-0.5); Lymphocytes Absolute Auto 3.78 K/mm3 (0.9-3.2); Lymphocytes Percent Auto 32.5 % (18.3-44.2); Mean Corpuscular HGB Conc 32.8 g/dl (32-36); Mean Corpuscular Volume 85.5 fl (80-100); Mean Platelet Volume 10.1 fl (7.4-10.4); Monocytes Absolute Auto 1.2 K/mm3 (0.1-0.6); Monocytes Percent Auto 10.2 % (2.6-8.5); Neutrophils Absolute Auto 6.4 K/mm3 (1.3-6.7); Platelet Count Result 306 k/mm3 (150-375); Red Blood Count 4.68 M/mm3 (4.2-5.4); Red Cell Distribution Width 14.2 % (11.5-14.5); White Blood Count 11.6 K/mm3 (4.5-10.0)
[2024-06-29 06:03] LABS: Potassium 3.5 mmol/L (3.4-5.0)
[2024-06-29 06:06] LABS: Albumin Level 3.5 g/dL (3.5-5.1); Anion Gap 6 mmol/L (4-12); Blood Urea Nitrogen 4 mg/dL (7-17); Carbon Dioxide 24 mmol/L (22-30); Chloride 107 mmol/L (98-107); Estimated CRCL calculation 135 ml/min; Estimated Glomerular Filt Rate > 60; Glucose 196 mg/dL (65-110); Magnesium 1.6 mg/dL (1.6-2.3); Phosphorus 1.8 mg/dL (2.5-4.5); Potassium 3.5 mmol/L (3.4-5.0); Sodium 137 mmol/L (137-145)
[2024-06-29 07:01] LABS: Glucose Point of Care 194 mg/dl (65-105)
[2024-06-29 08:45] LABS: Glucose Point of Care 182 mg/dl (65-105)
[2024-06-29] MEDS: PANTOPRAZOLE SODIUM IV 40 MG VIAL IV PUSH (08:51)
[2024-06-29] MEDS: lisinopriL 20 MG TABLET 40 MG PO (08:52)
[2024-06-29] MEDS: ESCITALOPRAM OXALATE 10 MG TABLET PO (08:52)
[2024-06-29] MEDS: PREGABALIN (*CRX) 50 MG CAPSULE 200 MG PO (08:52)
[2024-06-29] MEDS: cefTRIAXone 2 GM/NS 100 ML 2 GM/100 ML BAG IVPB (08:52)
[2024-06-29] MEDS: ASPIRIN 81 MG ENTERIC TABLET PO (08:52)
[2024-06-29] MEDS: LORATADINE 10 MG TABLET PO (08:52)
[2024-06-29] MEDS: POTASSIUM CHLORIDE 20 MEQ ER TABLET 40 MEQ PO ×2 (08:52→16:57)
[2024-06-29] MEDS: CENTRAL LINE FLUSH 10 ML IV PUSH ×2 (08:53→16:54)
[2024-06-29] MEDS: MAGNESIUM OXIDE 400 MG TABLET PO (08:54)
[2024-06-29] MEDS: METOPROLOL TARTRATE 25 MG TABLET PO ×2 (08:54→21:39)
--- NOTE | 2024-06-29 09:15 | P.PNIM_ITS ---
Progress Note: A&P Assessment and Plan (1) Sepsis: Code(s): A41.9 - Sepsis, unspecified organism Status: Acute Assessment and Plan: Meets SIRS criteria: Tachycardia, Leukocytosis - lactic acid: 1.4 as of 06/27 - suspected source: unknown - blood cultures drawn on 06/23 - UA: 3+ protein, 1+ glucose, 2+ ketones, 1+ blood - CXR: No acute cardiopulmonary disease. - Preliminary blood cultures negative - Tachycardia and tachypnea likely some component of anxiety 06/27 - Repeat sepsis workup was initiated on 06/26 due to AMS - Blood cultures drawn on 06/27 pending - Repeat UA: 2+ leukocyte esterase, 11-20 WBC, culture pending - Head CT and EEG normal - Pending MR Brain and US Carotid duplex at this time 06/28 - BC and UC pending - US Carotid Duplex: <50% stenosis in the right internal carotid artery, 50-69% stenosis in the left internal carotid artery - Brain MRI pending 06/29 - BC and UC = no growth - Brain MRI = IMPRESSION: 1. Moderate scattered white matter T2 hyperintensity consistent with chronic small vessel ischemic disease. No other acute intracranial process. 2. Pansinusitis. (2) Intractable nausea and vomiting: Code(s): R11.2 - Nausea with vomiting, unspecified Status: Acute Assessment and Plan: * CT Abd/pelvis without acute findings * Antiemetics, IVFs * NPO, continue holding medications * Continue Protonix 40 mg daily * Elevated gap and beta hydroxybutyrate however pH is 7.434. She is not acidotic. * IV Compazine q.6 p.r.n. * EGD report: Reflux esophagitis, grade 1. Mild gastritis in antrum. Multiple biopsies taken 06/27 * N/v moderate today per pt * No episodes of emesis throughout afternoon today * Continue with tele (3) Hypokalemia: Code(s): E87.6 - Hypokalemia Status: Chronic Assessment and Plan: * In ED: 3.6 * Likely secondary to continuous Vomiting and associated nausea. * Continue to monitor and supplement as needed * 06/29: K 3.5, Mag 1.6 - continue to trend * 40 meq IV Krider on 06/28, 40meq BID PO as tolerated * Nephrology consult, recs: * perhaps this is just a situation where she is total potassium store depleted worsened by GI symptoms and low magnesium.... * continue supplementation as tolerated - oral replacement is favorable to IV if possible * continue to ensure magnesium is stable * will start schedule magnesium oxide * continue PRN IV supplementation * follow trend of repeat K+ levels (4) Syncope and collapse: Code(s): R55 - Syncope and collapse Status: Acute Assessment and Plan: * Rapid response team called on 06/26 for possible syncope, patient does not think that she had complete LOC * Patient appeared to be staring blankly and responding to nursing staff, had 2 additional episodes in the bathroom * Patient states she believes it is exertional or when she stands * EEG and head CT unremarkable 06/28 * Brain MRI * Orthostatic vital signs * Carotid Doppler:<50% stenosis in the right internal carotid artery, 50-69% stenosis in the left internal carotid artery * 06/29: * Brain MRI : IMPRESSION: 1. Moderate scattered white matter T2 hyperintensity consistent with chronic small vessel ischemic disease. No other acute intracranial process. 2. Pansinusitis. * Orthostatics: WDL (5) Urinary tract infection: Code(s): N39.0 - Urinary tract infection, site not specified Status: Acute Assessment and Plan: - UA on 06/27: Cloudy, 1+ protein, 2+ leukocyte esterase, 11-20 urine WBC - UC obtained on 06/27, no growth - started on Rocephin (6) Dehydration: Code(s): E86.0 - Dehydration Status: Acute Assessment and Plan: * In ED: K=3.0, likely secondary to vomiting. Will supp as needed * Continue to trend AM labs * Monitor kidney function * IVF for rehydration * Encourage PO intake (7) Insulin dependent diabetes mellitus: Status: Chronic Assessment and Plan: * Continue to hold oral hypoglycemic meds * Sliding scale insulin * Hypoglycemic protocol * Accu-Cheks a.c. and HS * A1c 7.2% (8) HLD (hyperlipidemia): Code(s): E78.5 - Hyperlipidemia, unspecified Status: Chronic Assessment and Plan: * Continue medications once confirmed and can tolerate * Diabetic Consistent Carb diet (9) Diastolic dysfunction: Code(s): I51.89 - Other ill-defined heart diseases Status: Chronic Assessment and Plan: * Daily weight, has been stable * Accurate intake and output * Patient currently appears euvolemic * Pt denies CP/SOB/cough (10) HTN (hypertension): Code(s): I10 - Essential (primary) hypertension Status: Chronic Assessment and Plan: * Restarting at home medications * IV hydralazine ordered with parameters. Telemetry 88bpm Metoprolol 25mg BID (11) Anxiety and depression: Code(s): F41.9 - Anxiety disorder, unspecified; F32.9 - Major depressive disorder, single episode, unspecified Status: Chronic Assessment and Plan: * Continue home medications when confirmed and can tolerate Plan -Continue with IVF and antiemetics -Pt refusing Advair inhalers, D/C today 06/29 Subjective Date/time seen: 06/29/24 1110 Interval history: Patient is a 63-year-old female history of heart failure, rheumatoid arthritis, asthma, BC, anxiety, depression, GERD, hypertension, hyperlipidemia, type 2 diabetes that continues to be admitted for nausea vomiting and electrolyte imbalance. On exam today she was comfortably in bed but endorses nausea and vomiting ongoing today. Patient made aware that her potassium is now stable at 3.5 after aggressive replacement. Will continue to trend. Brain MRI is normal has well as Dopplers. Awaiting recommendations from Nephrology. Per nursing, pt pretty dependent on their care. Need to reiterate that she needs to be independently performing ADLs, continue OT and PT. Review of Systems Review of Systems: All systems reviewed & are unremarkable except as noted in HPI and below Gastrointestinal: Gastrointestinal: Reports diarrhea, Reports nausea and Reports vomiting Exam Const: General: no acute distress and uncomfortable Other: Obese. HENMT: Face/Nose/Sinus: Normal nares present Mouth: Yes moist mucous membranes Eyes: General: appearance normal, both eyes and all related structures Sclera: sclerae normal Neck: Neck: supple Carotids: no bruits Resp: Effort & Inspection: normal respiratory effort Auscultation: clear to auscultation bilaterally Cardio: Rate: regular rate Rhythm: regular rhythm GI: Inspection: non-distended Auscultation: abnormal bowel sounds Other: hypo Skin: General skin exam: normal color and no rashes or lesions noted Wounds: no wounds Neuro: Speech: normal speech Motor exam (neuro): Normal motor muscle tone present throughout Sensory Exam: normal sensation Extrem: General: normal to inspection Psych: Mental Status: mental status grossly normal Affect: normal affect Objective Data Vital Signs Vital Signs: Vital Signs - 24 hr 06/28/24 09:18 06/28/24 09:20 06/28/24 12:00 Temperature Pulse Rate 104 H 91 Respiratory Rate Blood Pressure Pulse Oximetry 97 Oxygen Delivery Room Air 06/28/24 12:27 06/28/24 12:28 06/28/24 14:00 Temperature Pulse Rate 97 106 H Respiratory Rate Blood Pressure 156/93 H 149/78 H Pulse Oximetry Oxygen Delivery Room Air 06/28/24 14:00 06/28/24 16:00 06/28/24 20:00 Temperature 98.1 F Pulse Rate 92 95 Respiratory Rate 18 Blood Pressure 173/83 H Pulse Oximetry 98 Oxygen Delivery Room Air 06/28/24 20:00 06/28/24 22:00 06/29/24 00:00 Temperature 97.2 F L Pulse Rate 111 H 102 H 96 Respiratory Rate 20 Blood Pressure 159/84 H Pulse Oximetry 98 Oxygen Delivery 06/29/24 04:00 06/29/24 06:00 06/29/24 06:00 Temperature 97.2 F L 97.2 F L Pulse Rate 97 105 H 105 H Respiratory Rate 16 16 Blood Pressure 147/79 H 147/79 H Pulse Oximetry 95 95 Oxygen Delivery 06/29/24 06:00 06/29/24 06:05 06/29/24 08:54 Temperature 97.2 F L 97.0 F L Pulse Rate 105 H 91 91 Respiratory Rate 16 18 Blood Pressure 147/79 H 160/80 H Pulse Oximetry 95 96 Oxygen Delivery Intake/Output Intake/Output: Intake & Output 06/26/24 06/27/24 06/28/24 06/29/24 23:59 23:59 23:59 23:59 Intake Total 970 1220 2886.6 700 Output Total 1600 3100 2100 Balance 970 -380 -213.4 -1400 Meds/Results Medications: Active Medications Generic Name Dose Route Start Last Admin Trade Name Freq PRN Reason Stop Dose Admin Hydrocodone Bitart/Acetaminophen 1 tab 06/28/24 15:20 06/28/24 20:47 Hydrocodone/Acetaminophen (*Crx) 5-325 Mg Tablet PO 1 tab Q6H PRN Administration Pain Rated 4-6 Albuterol 2.5 mg 06/25/24 14:25 Albuterol Sulfate Neb 2.5 Mg/3 Ml Inh INHALATION Q6H PRN Shortness Of Breath Or Wheezing Aspirin 81 mg 06/26/24 09:00 06/29/24 08:52 Aspirin 81 Mg Enteric Tablet PO 81 mg QAM JUDITH Administration Cyclobenzaprine HCl 5 mg 06/25/24 14:25 06/28/24 20:47 Cyclobenzaprine Hcl 5 Mg Tablet PO 5 mg TID PRN Administration muscle pain Dextrose 12.5 gm 06/21/24 02:12 Dextrose 50% 25 Gm/50 Ml Syringe IV PUSH PRN PRN Hypoglycemia Protocol Ergocalciferol 50,000 units 06/27/24 09:00 06/27/24 11:13 Ergocalciferol 50,000 Units Capsule PO Not Given Mo@0900 JUDITH Escitalopram Oxalate 10 mg 06/26/24 14:45 06/29/24 08:52 Escitalopram Oxalate 10 Mg Tablet PO 10 mg DAILY JUDITH Administration Famotidine 20 mg 06/25/24 14:25 Famotidine 20 Mg Tablet PO Q12HR PRN acid reflux Ferrous Sulfate 325 mg 06/25/24 14:50 Ferrous Sulfate [address] BY MOUTH BID PRN menstrual bleeding Fluticasone Propionate 1 spray 06/25/24 14:25 Fluticasone Propionate 0.05% Na Spr 16 Gm Btl (*Bkc) NASAL DAILY PRN allergy symptoms Glucagon 1 mg 06/21/24 02:12 Glucagon For Inj 1 Mg Vial IM PRN PRN Hypoglycemia Protocol Glucose 15 gm 06/21/24 02:12 Glucose Oral Gel 15 Gm Of Glucse In 37.5 Gm Tube PO PRN PRN Hypoglycemia Protocol Hydralazine HCl 10 mg 06/21/24 02:12 06/24/24 10:46 Hydralazine Hcl 20 Mg/Ml Vial IV PUSH 10 mg Q8H PRN Administration Blood Pressure - High Dextrose 1,000 mls @ 100 mls/hr 06/21/24 02:12 Dextrose 5% 1,000 Ml IVPB PRN PRN Hypoglycemia Protocol Sodium Chloride 1,000 mls @ 100 mls/hr 06/27/24 04:05 06/28/24 20:46 Normal Saline Iv IV CONT 100 mls/hr .Q10H JUDITH Administration Ceftriaxone Sodium 2 gm in 100 mls @ 200 mls/hr 06/27/24 13:00 06/29/24 08:52 Rocephin 2 Gm/Ns 100 Ml IVPB 200 mls/hr DAILY JUDITH Administration Insulin Aspart 2 - 5 units 06/21/24 08:00 06/29/24 08:53 Insulin Aspart (*Bkc) 100 Units/Ml SUB-Q Not Given TIDWM [facility] Protocol Insulin Aspart 1 - 2 units 06/21/24 21:00 06/28/24 20:53 Insulin Aspart (*Bkc) 100 Units/Ml SUB-Q Not Given HS [facility] Protocol Insulin Glargine 50 units 06/26/24 21:00 06/28/24 20:51 Insulin Glargine (*Bkc) 100 Units/Ml SUB-Q 50 units HS JUDITH Administration Lisinopril 40 mg 06/26/24 09:00 06/29/24 08:52 Lisinopril 20 Mg Tablet PO 40 mg QAM JUDITH Administration Loratadine 10 mg 06/26/24 09:00 06/29/24 08:52 Loratadine 10 Mg Tablet PO 10 mg QAM JUDITH Administration Magnesium Chloride 64 mg 06/25/24 09:00 06/25/24 08:46 Magnesium Chloride 64 Mg Tablet PO 64 mg QAM JUDITH Administration Magnesium Oxide 400 mg 06/29/24 09:00 06/29/24 08:54 Magnesium Oxide 400 Mg Tablet PO 400 mg DAILY JUDITH Administration Metformin HCl 500 mg 06/25/24 17:00 06/27/24 11:14 Metformin Hcl Xr 500 Mg Tab.Sr.24h PO Not Given BID JUDITH Metoprolol Tartrate 25 mg 06/26/24 21:00 06/29/24 08:54 Metoprolol Tartrate 25 Mg Tablet PO 25 mg Q12HR JUDITH Administration Ondansetron HCl 4 mg 06/21/24 02:08 06/29/24 08:58 Ondansetron Inj 4 Mg/2 Ml Vial IV PUSH 4 mg Q6HR PRN Administration Nausea And Vomiting Pantoprazole Sodium 40 mg 06/25/24 09:00 06/26/24 08:45 Pantoprazole 40 Mg Tablet PO 40 mg QAM JUDITH Administration Pantoprazole Sodium 40 mg 06/27/24 09:00 06/29/24 08:51 Pantoprazole Sodium Iv 40 Mg Vial IV PUSH 40 mg DAILY JUDITH Administration Potassium Chloride 40 meq 06/28/24 08:00 06/29/24 08:52 Potassium Chloride 20 Meq Er Tablet PO 40 meq BIDWM JUDITH Administration Pregabalin 200 mg 06/26/24 09:00 06/29/24 08:52 Pregabalin (*Crx) 50 Mg Capsule PO 200 mg DAILY JUDITH Administration Prochlorperazine Edisylate 10 mg 06/23/24 11:14 06/28/24 02:02 Prochlorperazine Edisylate 10 Mg/2 Ml Vial IV PUSH 10 mg Q6H PRN Administration Nausea And Vomiting Rosuvastatin Calcium 40 mg 07/02/24 09:00 Rosuvastatin 20 Mg Tablet PO WeFr@0900 JUDITH Fluticasone/Salmeterol 2 puff 06/25/24 20:00 06/28/24 21:15 Fluticasone/Salmeterol 230-21 Mcg Inhaler 1 Puff INHALATION Not Given Q12HRT JUDITH Sodium Chloride 10 ml 06/27/24 14:00 06/29/24 08:53 Central Line Flush IV PUSH 10 ml Q8HR JUDITH Administration Sodium Chloride 10 ml 06/27/24 12:16 Central Line Flush IV PUSH PRN PRN with TPN bag changes Sodium Chloride 20 ml 06/27/24 12:16 Central Line Flush IV PUSH PRN PRN after blood draws Sucralfate 1,000 mg 06/23/24 06:30 06/29/24 05:33 Sucralfate Susp 100 Mg/Ml 10 Ml Udc PO 1,000 mg ACHS JUDITH Administration Trazodone HCl 50 mg 06/25/24 14:30 06/28/24 20:48 Trazodone Hcl 50 Mg Tablet PO 50 mg QHS PRN Administration Insomnia Radiology Results: ITS Impressions Abdomen/Pelvis CT 06/20/24 23:57 IMPRESSION: Redemonstration of a chronic mass within the body of the uterus distorting the endometrial canal, unchanged dating back to 2015. Hepatomegaly with borderline splenomegaly. Head CT 06/26/24 20:15 IMPRESSION: No acute intracranial findings. Pansinusitis. Chest X-Ray 06/26/24 21:03 IMPRESSION: No acute cardiopulmonary pathology Carotid Doppler Study 06/27/24 17:30 IMPRESSION: 1. <50% stenosis in the right internal carotid artery. 2. 50-69% stenosis in the left internal carotid artery. Brain MRI 06/28/24 13:56 IMPRESSION: 1. Moderate scattered white matter T2 hyperintensity consistent with chronic small vessel ischemic disease. No other acute intracranial process. 2. Pansinusitis. Labs Labs: Laboratory Results - last 24 hr 06/28/24 06/28/24 06/28/24 11:51 16:11 17:12 WBC RBC Hgb Hct MCV MCH MCHC RDW Plt Count MPV Immature Gran % (Auto) Neut % (Auto) Lymph % (Auto) [place] % (Auto) Eos % (Auto) Baso % (Auto) Lymph # (Auto) [place] # (Auto) Eos # (Auto) Baso # (Auto) Abs Immat Gran (auto) Absolute Neuts (auto) Absolute Nucleated RBC Nucleated RBC % Sodium Potassium 2.6 L* Chloride Carbon Dioxide Anion Gap BUN Creatinine Estim Creat Clear Calc Estimated GFR Glucose POC Capillary Glucose 238 H 218 H Calcium Phosphorus Magnesium Albumin 06/28/24 06/28/24 06/29/24 17:53 20:49 05:45 WBC 11.6 H RBC 4.68 Hgb 13.1 Hct 40.0 MCV 85.5 MCH 28.0 MCHC 32.8 RDW 14.2 Plt Count 306 MPV 10.1 Immature Gran % (Auto) 0.3 Neut % (Auto) 55.0 Lymph % (Auto) 32.5 [place] % (Auto) 10.2 H Eos % (Auto) 1.6 Baso % (Auto) 0.4 Lymph # (Auto) 3.78 H [place] # (Auto) 1.2 H Eos # (Auto) 0.2 Baso # (Auto) 0.1 Abs Immat Gran (auto) 0.04 H Absolute Neuts (auto) 6.4 Absolute Nucleated RBC 0.000 Nucleated RBC % 0.0 Sodium 137 Potassium 3.5 Chloride Carbon Dioxide Anion Gap BUN Creatinine Estim Creat Clear Calc Estimated GFR Glucose POC Capillary Glucose 194 H Calcium Phosphorus Magnesium 1.1 L Albumin 06/29/24 06/29/24 05:45 08:38 WBC RBC Hgb Hct MCV MCH MCHC RDW Plt Count MPV Immature Gran % (Auto) Neut % (Auto) Lymph % (Auto) [place] % (Auto) Eos % (Auto) Baso % (Auto) Lymph # (Auto) [place] # (Auto) Eos # (Auto) Baso # (Auto) Abs Immat Gran (auto) Absolute Neuts (auto) Absolute Nucleated RBC Nucleated RBC % Sodium Potassium 3.5 Chloride 107 Carbon Dioxide 24 Anion Gap 6 BUN 4 L D Creatinine 0.48 L Estim Creat Clear Calc 135 Estimated GFR > 60 Glucose 196 H POC Capillary Glucose 182 H Calcium 8.0 L Phosphorus 1.8 L Magnesium 1.6 Albumin 3.5 Quality VTE Prophylaxis VTE prophylaxis: mechanical ordered
[2024-06-29 10:13] LABS: Chloride Rand Ur 160 mmol/L (32-290); Chloride/Creatinine Rand Ur 340 (38-318); Creatinine Random Urine 47 mg/dL (20-275)
[2024-06-29 10:13] LABS: Homocysteine 9.9 umol/L (<10.4)
[2024-06-29] MEDS: PROCHLORPERAZINE EDISYLATE 10 MG/2 ML VIAL IV PUSH ×2 (11:11→21:38)
[2024-06-29 12:29] LABS: Glucose Point of Care 208 mg/dl (65-105)
[2024-06-29] MEDS: INSULIN ASPART (*BKC) 100 UNITS/ML SUB-Q ×3 (12:31→21:44)
--- NOTE | 2024-06-29 13:00 | P.PNNP_ITS ---
Progress Note: A&P Assessment and Plan (1) Hypokalemia: Code(s): E87.6 - Hypokalemia Status: Chronic Assessment and Plan: * improvement noted * chronic issue for the last few years * however, tends to be exacerbated with acute hospitalization from review of records * usually stable/controlled with outpatient medication regimen * noted persistence during this hospitalization * however, complicated by GI issues/symptoms (nausea/vomiting/dimished oral intake) * some other disease process responsible for this condition(?): * possible Gitelman syndrome -- low K+ with low magnesium noted but usually associated with low blood pressure * possible distal type IV RTA(?) -- common in diabetic patients * evaluation to date noted: * TSH okay * cortisol normal * urine electrolytes non-prerenal * urine potassium in normal range * other testing pending * perhaps this is just a situation where she is total potassium store depleted worsened by GI symptoms and low magnesium.... * continue supplementation as tolerated - oral replacement is favorable to IV if possible * continue to ensure magnesium is stable * will start schedule magnesium oxide * continue PRN IV supplementation * follow trend of repeat K+ levels (2) Intractable nausea and vomiting: Code(s): R11.2 - Nausea with vomiting, unspecified Status: Acute Assessment and Plan: * fluctuating issue since admission * on IVFs and antiemetics * GI following: * s/p EGD on 06/24: reflux esophagitis and mild gastritis in antrum * on PPI * likely a contributing component to #1 (3) Syncope and collapse: Code(s): R55 - Syncope and collapse Status: Acute Assessment and Plan: * as noted by rapid response on 06/26 * no completed loss of consciousness per patient * described as blank stare per nursing * testing to date noted: * EEG unremarkable * CT of head without any acute findings * carotid dopplers noted * MRI of brain pending * continue supportive therapy (4) Urinary tract infection: Code(s): N39.0 - Urinary tract infection, site not specified Status: Acute Assessment and Plan: * UA suggestive: * cloudy, 1+ protein, 2+ leukocyte esterase, 11-20 urine WBC * urine culture negative * on antibiotics (5) HTN (hypertension): Code(s): I10 - Essential (primary) hypertension Status: Chronic Assessment and Plan: * reasonable control * on lisinopril and metoprolol * given her issues with LE edema in the past and #1, consider adding K+ sparing diuretic on discharge (i.e. spironolactone, triameterene or amiloride) if oral supplementation alone unable to maintain potassium level * follow trend of hemodynamics (6) Insulin dependent diabetes mellitus: Status: Chronic Assessment and Plan: * follow accu-cheks * glycemic control per hospitalist Will continue to follow. L Subjective Date/time seen: 06/29/24 13:00 Interval history: Follow-up for acute hypokalemia. Potassium and magnesium have normalized with aggressive IV and oral supplementation in the last 24 hours; better oral intake in general over the last 24 hours; no apparent distress at this time; nursing reports limited motivation to assist herself at times; PT/OT to evaluate patient today. Exam 2 Narrative: General: WD/WN female in NAD Heart: normal S1 and S2; no rub Lungs: clear to auscultation Abdomen: soft, nontender, nondistended, positive bowel sounds Extremities: no cyanosis or clubbing; no edema Skin: warm and intact Objective Data Vital Signs Vital Signs: Vital Signs Temp Pulse Resp BP Pulse Ox O2 Del Method 06/29/24 12:05 94 06/29/24 11:07 Room Air 06/29/24 09:09 Room Air 06/29/24 08:54 91 06/29/24 08:00 117 H 06/29/24 06:05 97.0 F L 91 18 160/80 H 96 06/29/24 06:00 97.2 F L 105 H 16 147/79 H 95 06/29/24 06:00 97.2 F L 105 H 16 147/79 H 95 06/29/24 06:00 97.2 F L 105 H 16 147/79 H 95 06/29/24 04:00 97 06/29/24 00:00 96 06/28/24 22:00 97.2 F L 102 H 20 159/84 H 98 06/28/24 20:00 111 H 06/28/24 20:00 Room Air 06/28/24 16:00 95 Intake/Output Intake/Output: Intake & Output 06/26/24 06/27/24 06/28/24 06/29/24 23:59 23:59 23:59 23:59 Intake Total 970 1220 2886.6 1180 Output Total 1600 3100 2100 Balance 970 -380 -213.4 -920 Meds/Results Medications: Active Medications Generic Name Dose Route Start Last Admin Trade Name Freq PRN Reason Stop Dose Admin Hydrocodone Bitart/Acetaminophen 1 tab 06/28/24 15:20 06/28/24 20:47 Hydrocodone/Acetaminophen (*Crx) 5-325 Mg Tablet PO 1 tab Q6H PRN Administration Pain Rated 4-6 Albuterol 2.5 mg 06/25/24 14:25 Albuterol Sulfate Neb 2.5 Mg/3 Ml Inh INHALATION Q6H PRN Shortness Of Breath Or Wheezing Aspirin 81 mg 06/26/24 09:00 06/29/24 08:52 Aspirin 81 Mg Enteric Tablet PO 81 mg QAM JUDITH Administration Cyclobenzaprine HCl 5 mg 06/25/24 14:25 06/28/24 20:47 Cyclobenzaprine Hcl 5 Mg Tablet PO 5 mg TID PRN Administration muscle pain Dextrose 12.5 gm 06/21/24 02:12 Dextrose 50% 25 Gm/50 Ml Syringe IV PUSH PRN PRN Hypoglycemia Protocol Ergocalciferol 50,000 units 06/27/24 09:00 06/27/24 11:13 Ergocalciferol 50,000 Units Capsule PO Not Given Mo@0900 JUDITH Escitalopram Oxalate 10 mg 06/26/24 14:45 06/29/24 08:52 Escitalopram Oxalate 10 Mg Tablet PO 10 mg DAILY JUDITH Administration Famotidine 20 mg 06/25/24 14:25 Famotidine 20 Mg Tablet PO Q12HR PRN acid reflux Ferrous Sulfate 325 mg 06/25/24 14:50 Ferrous Sulfate [address] BY MOUTH BID PRN menstrual bleeding Fluticasone Propionate 1 spray 06/25/24 14:25 Fluticasone Propionate 0.05% Na Spr 16 Gm Btl (*Bkc) NASAL DAILY PRN allergy symptoms Glucagon 1 mg 06/21/24 02:12 Glucagon For Inj 1 Mg Vial IM PRN PRN Hypoglycemia Protocol Glucose 15 gm 06/21/24 02:12 Glucose Oral Gel 15 Gm Of Glucse In 37.5 Gm Tube PO PRN PRN Hypoglycemia Protocol Hydralazine HCl 10 mg 06/21/24 02:12 06/24/24 10:46 Hydralazine Hcl 20 Mg/Ml Vial IV PUSH 10 mg Q8H PRN Administration Blood Pressure - High Dextrose 1,000 mls @ 100 mls/hr 06/21/24 02:12 Dextrose 5% 1,000 Ml IVPB PRN PRN Hypoglycemia Protocol Sodium Chloride 1,000 mls @ 100 mls/hr 06/27/24 04:05 06/28/24 20:46 Normal Saline Iv IV CONT 100 mls/hr .Q10H JUDITH Administration Ceftriaxone Sodium 2 gm in 100 mls @ 200 mls/hr 06/27/24 13:00 06/29/24 08:52 Rocephin 2 Gm/Ns 100 Ml IVPB 200 mls/hr DAILY JUDITH Administration Insulin Aspart 2 - 5 units 06/21/24 08:00 06/29/24 12:31 Insulin Aspart (*Bkc) 100 Units/Ml SUB-Q 2 units TIDWM JUDITH Administration Protocol Insulin Aspart 1 - 2 units 06/21/24 21:00 06/28/24 20:53 Insulin Aspart (*Bkc) 100 Units/Ml SUB-Q Not Given HS JUDITH Protocol Insulin Glargine 50 units 06/26/24 21:00 06/28/24 20:51 Insulin Glargine (*Bkc) 100 Units/Ml SUB-Q 50 units HS JUDITH Administration Lisinopril 40 mg 06/26/24 09:00 06/29/24 08:52 Lisinopril 20 Mg Tablet PO 40 mg QAM JUDITH Administration Loratadine 10 mg 06/26/24 09:00 06/29/24 08:52 Loratadine 10 Mg Tablet PO 10 mg QAM JUDITH Administration Magnesium Chloride 64 mg 06/25/24 09:00 06/25/24 08:46 Magnesium Chloride 64 Mg Tablet PO 64 mg QAM JUDITH Administration Magnesium Oxide 400 mg 06/29/24 09:00 06/29/24 08:54 Magnesium Oxide 400 Mg Tablet PO 400 mg DAILY JUDITH Administration Metformin HCl 500 mg 06/25/24 17:00 06/27/24 11:14 Metformin Hcl Xr 500 Mg Tab.Sr.24h PO Not Given BID JUDITH Metoprolol Tartrate 25 mg 06/26/24 21:00 06/29/24 08:54 Metoprolol Tartrate 25 Mg Tablet PO 25 mg Q12HR JUDITH Administration Ondansetron HCl 4 mg 06/21/24 02:08 06/29/24 08:58 Ondansetron Inj 4 Mg/2 Ml Vial IV PUSH 4 mg Q6HR PRN Administration Nausea And Vomiting Pantoprazole Sodium 40 mg 06/25/24 09:00 06/26/24 08:45 Pantoprazole 40 Mg Tablet PO 40 mg QAM JUDITH Administration Pantoprazole Sodium 40 mg 06/27/24 09:00 06/29/24 08:51 Pantoprazole Sodium Iv 40 Mg Vial IV PUSH 40 mg DAILY JUDITH Administration Potassium Chloride 40 meq 06/28/24 08:00 06/29/24 08:52 Potassium Chloride 20 Meq Er Tablet PO 40 meq BIDWM JUDITH Administration Pregabalin 200 mg 06/26/24 09:00 06/29/24 08:52 Pregabalin (*Crx) 50 Mg Capsule PO 200 mg DAILY JUDITH Administration Prochlorperazine Edisylate 10 mg 06/23/24 11:14 06/29/24 11:11 Prochlorperazine Edisylate 10 Mg/2 Ml Vial IV PUSH 10 mg Q6H PRN Administration Nausea And Vomiting Rosuvastatin Calcium 40 mg 07/02/24 09:00 Rosuvastatin 20 Mg Tablet PO WeFr@0900 JUDITH Sodium Chloride 10 ml 06/27/24 14:00 06/29/24 08:53 Central Line Flush IV PUSH 10 ml Q8HR JUDITH Administration Sodium Chloride 10 ml 06/27/24 12:16 Central Line Flush IV PUSH PRN PRN with TPN bag changes Sodium Chloride 20 ml 06/27/24 12:16 Central Line Flush IV PUSH PRN PRN after blood draws Sucralfate 1,000 mg 06/23/24 06:30 06/29/24 11:11 Sucralfate Susp 100 Mg/Ml 10 Ml Udc PO 1,000 mg ACHS JUDITH Administration Trazodone HCl 50 mg 06/25/24 14:30 06/28/24 20:48 Trazodone Hcl 50 Mg Tablet PO 50 mg QHS PRN Administration Insomnia Radiology Results: ITS Impressions Abdomen/Pelvis CT 06/20/24 23:57 IMPRESSION: Redemonstration of a chronic mass within the body of the uterus distorting the endometrial canal, unchanged dating back to 2015. Hepatomegaly with borderline splenomegaly. Head CT 06/26/24 20:15 IMPRESSION: No acute intracranial findings. Pansinusitis. Chest X-Ray 06/26/24 21:03 IMPRESSION: No acute cardiopulmonary pathology Carotid Doppler Study 06/27/24 17:30 IMPRESSION: 1. <50% stenosis in the right internal carotid artery. 2. 50-69% stenosis in the left internal carotid artery. Brain MRI 06/28/24 13:56 IMPRESSION: 1. Moderate scattered white matter T2 hyperintensity consistent with chronic small vessel ischemic disease. No other acute intracranial process. 2. Pansinusitis. Labs Labs: Laboratory Tests 06/29/24 05:45 06/29/24 05:45 Calcium 8.0 L Phosphorus 1.8 L Magnesium 1.6 Albumin 3.5 Microbiology 06/23/24 08:46 Blood Blood Culture - Final 06/23/24 08:31 Blood Blood Culture - Final 06/27/24 07:59 Urine Clean Catch Urine Culture - Final
[2024-06-29 13:54] LABS: Osmolality, Urine 438 mOsm/kg (50-1200)
[2024-06-29] MEDS: SODIUM CHLORIDE 0.9% IV 1,000 ML 100 ML IV CONT ×2 (16:54→21:42)
[2024-06-29 17:14] LABS: Glucose Point of Care 201 mg/dl (65-105)
[2024-06-29] MEDS: FAMOTIDINE 20 MG TABLET PO (17:30)
[2024-06-29] MEDS: CYCLOBENZAPRINE HCL 5 MG TABLET PO (21:39)
[2024-06-29] MEDS: HYDROcodone/acetaminophen (*CRX) 5-325 MG TABLET 1 TAB PO (21:39)
[2024-06-29] MEDS: traZODone HCL 50 MG TABLET PO (21:39)
[2024-06-29] MEDS: INSULIN GLARGINE (*BKC) 100 UNITS/ML 50 UNITS SUB-Q (21:43)
[2024-06-29 21:50] LABS: Glucose Point of Care 242 mg/dl (65-105)
[2024-06-30] VITALS (10 sets, daily range): BP systolic 147–171; BP diastolic 83–98; PULSE 83–112; RESP 18–19; TEMP 36.3–36.9; O2SAT 97–99
[2024-06-30] MEDS: ONDANSETRON INJ 4 MG/2 ML VIAL IV PUSH ×2 (02:50→11:35)
[2024-06-30] MEDS: SUCRALFATE SUSP 100 MG/ML 10 ML UDC 1000 MG PO ×2 (05:18→11:32)
[2024-06-30] MEDS: CENTRAL LINE FLUSH 10 ML IV PUSH ×2 (05:18→14:10)
[2024-06-30] MEDS: FAMOTIDINE 20 MG TABLET PO (05:22)
[2024-06-30 05:42] LABS: Albumin Level 3.5 g/dL (3.5-5.1); Anion Gap 5 mmol/L (4-12); Blood Urea Nitrogen 8 mg/dL (7-17); Calcium 8.4 mg/dL (8.4-10.2); Carbon Dioxide 24 mmol/L (22-30); Chloride 108 mmol/L (98-107); Estimated CRCL calculation 118 ml/min; Estimated Glomerular Filt Rate > 60; Glucose 202 mg/dL (65-110); Magnesium 1.4 mg/dL (1.6-2.3); Phosphorus 1.9 mg/dL (2.5-4.5); Potassium 3.7 mmol/L (3.4-5.0); Sodium 137 mmol/L (137-145)
[2024-06-30 07:51] LABS: Glucose Point of Care 220 mg/dl (65-105)
[2024-06-30] MEDS: MAGNESIUM SULF 2 GM/WATER 50ML 2 GM/50 ML BAG IVPB (08:12)
[2024-06-30] MEDS: PROCHLORPERAZINE EDISYLATE 10 MG/2 ML VIAL IV PUSH ×2 (08:12→14:09)
[2024-06-30] MEDS: lisinopriL 20 MG TABLET 40 MG PO (08:19)
[2024-06-30] MEDS: POTASSIUM CHLORIDE 20 MEQ ER TABLET 40 MEQ PO (08:19)
[2024-06-30] MEDS: PREGABALIN (*CRX) 50 MG CAPSULE 200 MG PO (08:19)
[2024-06-30] MEDS: METOPROLOL TARTRATE 25 MG TABLET PO (08:20)
[2024-06-30] MEDS: ASPIRIN 81 MG ENTERIC TABLET PO (08:20)
[2024-06-30] MEDS: ESCITALOPRAM OXALATE 10 MG TABLET PO (08:20)
[2024-06-30] MEDS: LORATADINE 10 MG TABLET PO (08:20)
[2024-06-30] MEDS: cefTRIAXone 2 GM/NS 100 ML 2 GM/100 ML BAG IVPB (08:20)
[2024-06-30] MEDS: MAGNESIUM OXIDE 400 MG TABLET PO (08:20)
[2024-06-30] MEDS: PANTOPRAZOLE SODIUM IV 40 MG VIAL IV PUSH (08:21)
[2024-06-30] MEDS: POTASSIUM/PHOSPHORUS/SODIUM 1.5 GM PACKET 1 PACKET PO (08:35)
[2024-06-30] MEDS: INSULIN ASPART (*BKC) 100 UNITS/ML SUB-Q ×2 (08:39→12:39)
--- NOTE | 2024-06-30 08:41 | PCOTNOTE ---
Patient declined at this time. Patient states she is very nauseated and can not participate now, Will try back at a later time.
[2024-06-30 10:08] LABS: Calcium/Creatinine Ratio, Ur 179 mg/g creat (10-320); Urine Calcium, Random 9.3 mg/dL; Urine Creatinine, Random 52 mg/dL (20-275)
[2024-06-30] MEDS: POTASSIUM/PHOSPHORUS/SODIUM 1.5 GM PACKET 2 PACKET PO (11:32)
[2024-06-30 11:36] LABS: Glucose Point of Care 239 mg/dl (65-105)
--- NOTE | 2024-06-30 12:17 | P.PNNP_ITS ---
Progress Note: A&P Assessment and Plan (1) Hypokalemia: Code(s): E87.6 - Hypokalemia Status: Chronic Assessment and Plan: * improvement noted * chronic issue for the last few years * however, tends to be exacerbated with acute hospitalization from review of records * usually stable/controlled with outpatient medication regimen * noted persistence during this hospitalization * however, complicated by GI issues/symptoms (nausea/vomiting/dimished oral intake) * some other disease process responsible for this condition(?): * possible Gitelman syndrome -- low K+ with low magnesium noted but usually associated with low blood pressure * possible distal type IV RTA(?) -- common in diabetic patients * evaluation to date noted: * TSH okay * cortisol normal * urine electrolytes non-prerenal * urine potassium in normal range * other testing pending * perhaps this is just a situation where she is total potassium store depleted worsened by GI symptoms and low magnesium.... * continue supplementation as tolerated - oral replacement is favorable to IV if possible * continue to ensure magnesium is stable * on schedule magnesium oxide * continue PRN IV supplementation * follow trend of repeat K+ levels (2) Intractable nausea and vomiting: Code(s): R11.2 - Nausea with vomiting, unspecified Status: Acute Assessment and Plan: * fluctuating issue since admission * on IVFs and antiemetics * GI following: * s/p EGD on 06/24: reflux esophagitis and mild gastritis in antrum * on PPI * likely a contributing component to #1 (3) Syncope and collapse: Code(s): R55 - Syncope and collapse Status: Acute Assessment and Plan: * as noted by rapid response on 06/26 * no completed loss of consciousness per patient * described as blank stare per nursing * testing to date noted: * EEG unremarkable * CT of head without any acute findings * carotid dopplers noted * MRI of brain results reviewed * continue supportive therapy (4) Urinary tract infection: Code(s): N39.0 - Urinary tract infection, site not specified Status: Acute Assessment and Plan: * UA suggestive: * cloudy, 1+ protein, 2+ leukocyte esterase, 11-20 urine WBC * urine culture negative * on antibiotics (5) HTN (hypertension): Code(s): I10 - Essential (primary) hypertension Status: Chronic Assessment and Plan: * reasonable control * on lisinopril and metoprolol * given her issues with LE edema in the past and #1, consider adding K+ sparing diuretic on discharge (i.e. spironolactone, triameterene or amiloride) if oral supplementation alone unable to maintain potassium level * follow trend of hemodynamics (6) Insulin dependent diabetes mellitus: Status: Chronic Assessment and Plan: * follow accu-cheks * glycemic control per hospitalist Not opposed to discharge from renal perspective if otherwise medically stable - recommend repeat labs next week per PCP to ensure potassium and magnesium are stable on current supplementation. Will continue to follow. L Subjective Date/time seen: 06/30/24 12:17 Interval history: Follow-up for acute hypokalemia. Potassium remains stable for the last 24 - 48 hours with current interventions/therapy to date; no further nausea/vomiting at this time and appears to be tolerating oral intake (eating lunch at the time of my visit without any acute issues or problems); no apparent distress noted. Exam 2 Narrative: General: WD/WN female in NAD Heart: normal S1 and S2; no rub Lungs: clear to auscultation Abdomen: soft, nontender, nondistended, positive bowel sounds Extremities: no cyanosis or clubbing; no edema Skin: no nodules Objective Data Vital Signs Vital Signs: Vital Signs Temp Pulse Resp BP Pulse Ox O2 Del Method 06/30/24 12:05 88 06/30/24 08:20 100 06/30/24 08:15 Room Air 06/30/24 08:06 110 H 18 147/89 H 99 06/30/24 08:05 108 H 18 168/96 H 98 06/30/24 08:04 112 H 06/30/24 08:04 110 H 18 147/89 H 99 06/30/24 08:04 108 H 18 168/96 H 98 06/30/24 08:00 98.4 F 109 H 18 171/98 H 97 06/30/24 08:00 98.4 F 103 H 19 171/98 H 97 06/30/24 06:00 97.3 F L 94 18 153/89 H 99 06/30/24 04:00 83 06/30/24 00:00 98 06/29/24 22:00 97.3 F L 113 H 18 148/90 H 98 06/29/24 20:00 104 H 06/29/24 20:00 Room Air 06/29/24 17:45 122/73 06/29/24 17:45 146/76 H 06/29/24 17:45 112/60 06/29/24 16:04 88 06/29/24 14:00 97.8 F 95 16 112/60 97 Intake/Output Intake/Output: Intake & Output 06/27/24 06/28/24 06/29/24 06/30/24 23:59 23:59 23:59 23:59 Intake Total 1220 2886.6 3060 1312 Output Total 1600 3100 2650 1100 Balance -380 -213.4 410 212 Meds/Results Medications: Active Medications Generic Name Dose Route Start Last Admin Trade Name Freq PRN Reason Stop Dose Admin Hydrocodone Bitart/Acetaminophen 1 tab 06/28/24 15:20 06/29/24 21:39 Hydrocodone/Acetaminophen (*Crx) 5-325 Mg Tablet PO 1 tab Q6H PRN Administration Pain Rated 4-6 Albuterol 2.5 mg 06/25/24 14:25 Albuterol Sulfate Neb 2.5 Mg/3 Ml Inh INHALATION Q6H PRN Shortness Of Breath Or Wheezing Amoxicillin/Clavulanate Potassium 1 tablet 07/01/24 09:00 Amoxicillin/Clavulanate K 875-125 Mg Tab PO 07/03/24 21:01 Q12HR JUDITH Aspirin 81 mg 06/26/24 09:00 06/30/24 08:20 Aspirin 81 Mg Enteric Tablet PO 81 mg QAM JUDITH Administration Cyclobenzaprine HCl 5 mg 06/25/24 14:25 06/29/24 21:39 Cyclobenzaprine Hcl 5 Mg Tablet PO 5 mg TID PRN Administration muscle pain Dextrose 12.5 gm 06/21/24 02:12 Dextrose 50% 25 Gm/50 Ml Syringe IV PUSH PRN PRN Hypoglycemia Protocol Ergocalciferol 50,000 units 06/27/24 09:00 06/27/24 11:13 Ergocalciferol 50,000 Units Capsule PO Not Given Mo@0900 JUDITH Escitalopram Oxalate 10 mg 06/26/24 14:45 06/30/24 08:20 Escitalopram Oxalate 10 Mg Tablet PO 10 mg DAILY JUDITH Administration Famotidine 20 mg 06/25/24 14:25 06/30/24 05:22 Famotidine 20 Mg Tablet PO 20 mg Q12HR PRN Administration acid reflux Ferrous Sulfate 325 mg 06/25/24 14:50 Ferrous Sulfate [address] BY MOUTH BID PRN menstrual bleeding Fluticasone Propionate 1 spray 06/25/24 14:25 Fluticasone Propionate 0.05% Na Spr 16 Gm Btl (*Bkc) NASAL DAILY PRN allergy symptoms Glucagon 1 mg 06/21/24 02:12 Glucagon For Inj 1 Mg Vial IM PRN PRN Hypoglycemia Protocol Glucose 15 gm 06/21/24 02:12 Glucose Oral Gel 15 Gm Of Glucse In 37.5 Gm Tube PO PRN PRN Hypoglycemia Protocol Hydralazine HCl 10 mg 06/21/24 02:12 06/24/24 10:46 Hydralazine Hcl 20 Mg/Ml Vial IV PUSH 10 mg Q8H PRN Administration Blood Pressure - High Dextrose 1,000 mls @ 100 mls/hr 06/21/24 02:12 Dextrose 5% 1,000 Ml IVPB PRN PRN Hypoglycemia Protocol Sodium Chloride 1,000 mls @ 30 mls/hr 06/27/24 04:05 06/29/24 21:42 Normal Saline Iv IV CONT 100 mls/hr .Q24H JUDITH Administration Insulin Aspart 2 - 5 units 06/21/24 08:00 06/30/24 12:39 Insulin Aspart (*Bkc) 100 Units/Ml SUB-Q 2 units TIDWM JUDITH Administration Protocol Insulin Aspart 1 - 2 units 06/21/24 21:00 06/29/24 21:44 Insulin Aspart (*Bkc) 100 Units/Ml SUB-Q 1 units HS JUDITH Administration Protocol Insulin Glargine 50 units 06/26/24 21:00 06/29/24 21:43 Insulin Glargine (*Bkc) 100 Units/Ml SUB-Q 50 units HS JUDITH Administration Lisinopril 40 mg 06/26/24 09:00 06/30/24 08:19 Lisinopril 20 Mg Tablet PO 40 mg QAM JUDITH Administration Loratadine 10 mg 06/26/24 09:00 06/30/24 08:20 Loratadine 10 Mg Tablet PO 10 mg QAM JUDITH Administration Magnesium Chloride 64 mg 06/25/24 09:00 06/25/24 08:46 Magnesium Chloride 64 Mg Tablet PO 64 mg QAM JUDITH Administration Magnesium Oxide 400 mg 06/29/24 09:00 06/30/24 08:20 Magnesium Oxide 400 Mg Tablet PO 400 mg DAILY JUDITH Administration Metformin HCl 500 mg 06/25/24 17:00 06/27/24 11:14 Metformin Hcl Xr 500 Mg Tab.Sr.24h PO Not Given BID JUDITH Metoprolol Tartrate 25 mg 06/26/24 21:00 06/30/24 08:20 Metoprolol Tartrate 25 Mg Tablet PO 25 mg Q12HR JUDITH Administration Ondansetron HCl 4 mg 06/30/24 13:16 Ondansetron Hcl Odt 4 Mg Tablet PO Q4HR PRN Nausea And Vomiting Pantoprazole Sodium 40 mg 06/25/24 09:00 06/26/24 08:45 Pantoprazole 40 Mg Tablet PO 40 mg QAM JUDITH Administration Pantoprazole Sodium 40 mg 07/01/24 09:00 Pantoprazole 40 Mg Tablet PO QAM JUDITH Potassium Chloride 40 meq 06/28/24 08:00 06/30/24 08:19 Potassium Chloride 20 Meq Er Tablet PO 40 meq BIDWM JUDITH Administration Pregabalin 200 mg 06/26/24 09:00 06/30/24 08:19 Pregabalin (*Crx) 50 Mg Capsule PO 200 mg DAILY JUDITH Administration Prochlorperazine Edisylate 10 mg 06/23/24 11:14 06/30/24 08:12 Prochlorperazine Edisylate 10 Mg/2 Ml Vial IV PUSH 10 mg Q6H PRN Administration Nausea And Vomiting Rosuvastatin Calcium 40 mg 07/02/24 09:00 Rosuvastatin 20 Mg Tablet PO WeFr@0900 JUDITH Sodium Chloride 10 ml 06/27/24 14:00 06/30/24 05:18 Central Line Flush IV PUSH 10 ml Q8HR JUDITH Administration Sodium Chloride 10 ml 06/27/24 12:16 Central Line Flush IV PUSH PRN PRN with TPN bag changes Sodium Chloride 20 ml 06/27/24 12:16 Central Line Flush IV PUSH PRN PRN after blood draws Sucralfate 1,000 mg 06/23/24 06:30 06/30/24 11:32 Sucralfate Susp 100 Mg/Ml 10 Ml Udc PO 1,000 mg ACHS JUDITH Administration Trazodone HCl 50 mg 06/25/24 14:30 06/29/24 21:39 Trazodone Hcl 50 Mg Tablet PO 50 mg QHS PRN Administration Insomnia Radiology Results: ITS Impressions Abdomen/Pelvis CT 06/20/24 23:57 IMPRESSION: Redemonstration of a chronic mass within the body of the uterus distorting the endometrial canal, unchanged dating back to 2015. Hepatomegaly with borderline splenomegaly. Head CT 06/26/24 20:15 IMPRESSION: No acute intracranial findings. Pansinusitis. Chest X-Ray 06/26/24 21:03 IMPRESSION: No acute cardiopulmonary pathology Carotid Doppler Study 06/27/24 17:30 IMPRESSION: 1. <50% stenosis in the right internal carotid artery. 2. 50-69% stenosis in the left internal carotid artery. Brain MRI 06/28/24 13:56 IMPRESSION: 1. Moderate scattered white matter T2 hyperintensity consistent with chronic small vessel ischemic disease. No other acute intracranial process. 2. Pansinusitis. Labs Labs: Laboratory Tests 06/29/24 05:45 06/30/24 05:27 Calcium 8.4 Phosphorus 1.9 L Magnesium 1.4 L Albumin 3.5
--- NOTE | 2024-06-30 13:13 | P.DS_ITS ---
DS: Admitting Diagnosis Discharge Date 06/30/2024 Admitting Diagnosis UTI, N/V DS: Discharge Diagnosis Discharge Diagnosis (1) Sepsis: Code(s): A41.9 - Sepsis, unspecified organism Status: Acute Assessment and Plan: Meets SIRS criteria: Tachycardia, Leukocytosis - lactic acid: 1.4 as of 06/27 - suspected source: unknown - blood cultures drawn on 06/23 - UA: 3+ protein, 1+ glucose, 2+ ketones, 1+ blood - CXR: No acute cardiopulmonary disease. - Preliminary blood cultures negative - Tachycardia and tachypnea likely some component of anxiety 06/27 - Repeat sepsis workup was initiated on 06/26 due to AMS - Blood cultures drawn on 06/27 pending - Repeat UA: 2+ leukocyte esterase, 11-20 WBC, culture pending - Head CT and EEG normal - Pending MR Brain and US Carotid duplex at this time 06/28 - BC and UC pending - US Carotid Duplex: <50% stenosis in the right internal carotid artery, 50-69% stenosis in the left internal carotid artery - Brain MRI pending 06/29 - BC and UC = no growth - Brain MRI = IMPRESSION: 1. Moderate scattered white matter T2 hyperintensity consistent with chronic small vessel ischemic disease. No other acute intracranial process. 2. Pansinusitis. 06/30 Pt hemodynamically stable, including labs, VS, etc. Denies UTI sx, sending home with oral abx to finish regimen. (2) Intractable nausea and vomiting: Code(s): R11.2 - Nausea with vomiting, unspecified Status: Acute Assessment and Plan: * CT Abd/pelvis without acute findings * Antiemetics, IVFs * Tolerating PO medication and food * Continue Protonix 40 mg daily * Elevated gap and beta hydroxybutyrate however pH is 7.434. She is not acidotic. * EGD report: Reflux esophagitis, grade 1. Mild gastritis in antrum. Multiple biopsies taken 06/27 * Only mild nausea today, will send home with PO zofran * No episodes of emesis throughout afternoon today (3) Hypokalemia: Code(s): E87.6 - Hypokalemia Status: Chronic Assessment and Plan: * In ED: 3.6 * Likely secondary to continuous Vomiting and associated nausea. * Continue to monitor and supplement as needed * 06/29: K 3.5, Mag 1.6 - continue to trend * 40 meq IV Krider on 06/28, 40meq BID PO as tolerated * Nephrology consult, recs: * perhaps this is just a situation where she is total potassium store depleted worsened by GI symptoms and low magnesium.... * continue supplementation as tolerated - oral replacement is favorable to IV if possible * continue to ensure magnesium is stable * will start schedule magnesium oxide * continue PRN IV supplementation * follow trend of repeat K+ levels Pt has been stable the last several days, per neph recs, will be d/c with potassium 40meq BID as well as mag 400mg daily with plans to repeat labs in x1-2 weeks. Discussed this with pt, she is agreeable. Has a PCP, Dr. Perry. (4) Syncope and collapse: Code(s): R55 - Syncope and collapse Status: Acute Assessment and Plan: * Rapid response team called on 06/26 for possible syncope, patient does not think that she had complete LOC * Patient appeared to be staring blankly and responding to nursing staff, had 2 additional episodes in the bathroom * Patient states she believes it is exertional or when she stands * EEG and head CT unremarkable 06/28 * Brain MRI * Orthostatic vital signs * Carotid Doppler:<50% stenosis in the right internal carotid artery, 50-69% stenosis in the left internal carotid artery * 06/29: * Brain MRI : IMPRESSION: 1. Moderate scattered white matter T2 hyperintensity consistent with chronic small vessel ischemic disease. No other acute intracranial process. 2. Pansinusitis. * Orthostatics: WDL (5) Urinary tract infection: Code(s): N39.0 - Urinary tract infection, site not specified Status: Acute Assessment and Plan: - UA on 06/27: Cloudy, 1+ protein, 2+ leukocyte esterase, 11-20 urine WBC - UC obtained on 06/27, no growth - started on Rocephin. Will continue Augmentin upon D/C. (6) Dehydration: Code(s): E86.0 - Dehydration Status: Acute Assessment and Plan: * In ED: K=3.0, likely secondary to vomiting. Will supp as needed * Continue to trend AM labs * Monitor kidney function * IVF for rehydration, D/C at discharge * Encourage PO intake, has been tolerating PO meds and food today. (7) Insulin dependent diabetes mellitus: Status: Chronic Assessment and Plan: * Continue to hold oral hypoglycemic meds, resume at D/C * Sliding scale insulin * Hypoglycemic protocol * Accu-Cheks a.c. and HS * A1c 7.2% (8) HLD (hyperlipidemia): Code(s): E78.5 - Hyperlipidemia, unspecified Status: Chronic Assessment and Plan: * Continue medications upon D/C * Diabetic Consistent Carb diet (9) Diastolic dysfunction: Code(s): I51.89 - Other ill-defined heart diseases Status: Chronic Assessment and Plan: * Daily weight, has been stable * Accurate intake and output * Patient currently appears euvolemic * Pt continues to deny CP/SOB/cough * Continue all medications at D/C (10) HTN (hypertension): Code(s): I10 - Essential (primary) hypertension Status: Chronic Assessment and Plan: * Restarting at home medications, continue upon D/C * To f/u with PCP (11) Anxiety and depression: Code(s): F41.9 - Anxiety disorder, unspecified; F32.9 - Major depressive disorder, single episode, unspecified Status: Chronic Assessment and Plan: * Continue home medications when confirmed and can tolerate * To f/u with PCP DS: Summary Hospital Course Reason for hospitalization: N/V, UTI Hospital Course: Patient is a 63-year-old female history of heart failure, rheumatoid arthritis, asthma, BC, anxiety, depression, GERD, hypertension, hyperlipidemia, type 2 diabetes that continues to be admitted for nausea vomiting and electrolyte imbalance. Pt has been here for a total of 10 days inpatient. During her stay, she has had a GI workup performed and they have since signed off. She has also been repleted with electrolytes aggressively and will be d/c on potassium and magnesium per nephrology recs. Cardiology also consulted. Pt also had a syncope and collapse episode while inpatient and was worked up for this. Brain MRI is normal has well as Dopplers. Per PT/OT, independent, stable to D/C home. Spoke to pt daughter on the phone extensively about her mother returning home, as did care coordination, everyone is on board. Status at Discharge Cognitive/behavioral status at discharge: Stable Time Spent with Patient Time attestation: Total time spent providing and/or coordinating discharge services: Exam Const: General: no acute distress and uncomfortable Other: Obese. HENMT: Face/Nose/Sinus: Normal nares present Mouth: Yes moist mucous membranes and Yes dry mucous membranes Eyes: General: appearance normal, both eyes and all related structures S clera: sclerae normal Neck: Neck: supple and no JVD Carotids: no bruits Chest: Other: Nontender Resp: Effort & Inspection: normal respiratory effort Auscultation: clear to auscultation bilaterally Cardio: Rate: regular rate Rhythm: regular rhythm Heart sounds: no gallops, Murmur heart sound present (Grade 2 systolic) and no rubs GI: Inspection: non-distended Auscultation: normal bowel sounds and abnormal bowel sounds Skin: General skin exam: normal color, no rashes or lesions noted, No lesion and No rashes Lesions: no lesions noted Rashes: no rashes noted Wounds: no wounds Neuro: General: gait normal Speech: normal speech Motor exam (neuro): 5/5 motor strength present throughout and Normal motor muscle tone present throughout Sensory Exam: normal sensation Extrem: General: normal to inspection, no edema and no pedal edema Psych: Mental Status: mental status grossly normal Affect: normal affect and Hostile affect present Other: Patient obviously upset that I will not allow her to have ice chips as she rolls her eyes at me DS: Data Data Completed and Pending Completed studies during hospitalization: Pending at discharge 06/24/24 10:18 Surgical [PTH] Routine Labs on day of discharge: Labs from last 24 hours 06/30/24 06/30/24 06/30/24 11:33 07:31 05:27 Sodium 137 Potassium 3.7 Chloride 108 H Carbon Dioxide 24 Anion Gap 5 BUN 8 Creatinine 0.56 L Estim Creat Clear Calc 118 Estimated GFR > 60 Glucose 202 H POC Capillary Glucose 239 H 220 H Serum Osmolality Calcium 8.4 Phosphorus 1.9 L Magnesium 1.4 L Albumin 3.5 Urine Osmolality Ur Random Creatinine Ur Random Calcium Calcium/Creat Ratio 06/29/24 06/29/24 06/28/24 21:37 17:10 15:07 Sodium Potassium Chloride Carbon Dioxide Anion Gap BUN Creatinine Estim Creat Clear Calc Estimated GFR Glucose POC Capillary Glucose 242 H 201 H Serum Osmolality Calcium Phosphorus Magnesium Albumin Urine Osmolality Ur Random Creatinine 52 Ur Random Calcium 9.3 Calcium/Creat Ratio 179 06/28/24 06/27/24 05:59 15:31 Sodium Potassium Chloride Carbon Dioxide Anion Gap BUN Creatinine Estim Creat Clear Calc Estimated GFR Glucose POC Capillary Glucose Serum Osmolality 290 Calcium Phosphorus Magnesium Albumin Urine Osmolality 438 Ur Random Creatinine Ur Random Calcium Calcium/Creat Ratio Preliminary micro results at discharge 06/27/24 06:58 Blood Culture - Preliminary Blood 06/27/24 07:06 Blood Culture - Preliminary Blood Discharge Plan Discharge Attending physician on discharge: Lakshmi Glaser Consulting providers: Stas Marino; Paola Soto; Emilee Gipson; Virgie Johnson Discharging Clinician: Lakshmi Glaser Anticipated Discharge Date/Time: 06/30/24 13:53 Patient Disposition: Home Activity: may shower Diet: heart healthy Discharge Instructions: 1. Continue to take the antibiotics (Augmentin) for your UTI for x3 more days. Start tomorrow AM (06/30) and take 2 times daily until finished. 2. Continue to take the Potassium 40meq dose twice daily as well Magnesium 400mg daily, these are recommended by the nephrology (kidney) team. It is also important since you are taking these supplemental electrolytes, to follow up with your primary care provider in one week to obtain repeat lab work so they can continue to manage these supplements. 3. I am also giving you a rx of zofran for nausea when needed. Follow-up with your primary care provider for this as well. 4. Continue to keep working on your independent mobility! I am sure you will start to feel better once you are home in your own space. 5. Trend your Blood pressure readings at home 1-2 hours after taking your daily BP medications in the AM, your primary care provider will appreciate seeing these values. Remember to restart all of your BP medications. Be careful with the Coreg as you think this may have contributed to your nausea, ask your primary care about this as well. Patient Instructions: Antibiotic Form, Amoxicillin/Clavulanate Potassium (By mouth), Acute Nausea and Vomiting (GEN), Near Syncope (GEN) Patient Language: Slovenian Stand Alone Forms: General Discharge Information Follow-up/Referrals: [place],Crow Tang MD [Primary Care Provider] - 1 Week Discharge Medications: New magnesium oxide 400 mg magnesium capsule 400 mg PO DAILY Qty: 60 0RF ondansetron 4 mg tablet,disintegrating 4 mg PO Q8H PRN (Reason: nausea and vomiting) Qty: 60 1RF potassium chloride [K-Tab] 20 mEq tablet extended release 40 meq PO BID Qty: 60 0RF amoxicillin-pot clavulanate 875-125 mg tablet 1 tablet PO Q12H MDD 2 Qty: 6 0RF Rx Instructions: Start the morning of 07/01 and takes twice daily until gone Continued trazodone 50 mg tablet 50 mg PO QHS PRN (Reason: Insomnia) albuterol sulfate 2.5 mg /3 mL (0.083 %) solution for nebulization 2.5 mg inhalation Q6H PRN (Reason: Shortness Of Breath Or Wheezing) ergocalciferol (vitamin D2) 1,250 mcg (50,000 unit) capsule 1,250 mcg PO WEEKLY Rx Instructions: Weekly on Mondays fluticasone propion-salmeterol [Advair HFA] 230-21 mcg/actuation HFA aerosol inhaler 2 puff inhalation Q12HRT 30 Days Qty: 60 6RF rosuvastatin 40 mg Tablet 40 mg PO WEEKLY Rx Instructions: Thursday and Thursday aspirin 81 mg Capsule 81 mg PO DAILY hydroxychloroquine 200 mg tablet 200 mg PO .q12hr Afrin (oxymetazoline) 1 puff intranasal TID PRN (Reason: Congestion) ibuprofen 800 mg tablet 1,600 mg PO BID PRN (Reason: Headache) doxycycline hyclate 100 mg Tablet 100 mg PO Q12HR Qty: 5 0RF cetirizine 10 mg tablet 10 mg PO DAILY famotidine 20 mg tablet 20 mg PO BID PRN (Reason: acid reflux) hydrocodone-acetaminophen 7.5-325 mg tablet 1 tablet PO TID PRN (Reason: pain) ferrous sulfate [FeroSul] 325 mg (65 mg iron) tablet 325 mg PO BID PRN (Reason: menstrual bleeding ) fluticasone propionate 50 mcg/actuation spray,suspension 1 spray INTRANASAL DAILY PRN (Reason: allergy symptoms) metformin 500 mg tablet extended release 24 hr 500 mg PO BID progesterone micronized 100 mg capsule 100 mg PO QPM insulin lispro 100 unit/mL insulin pen 50 unit SUBCUT TIDWM escitalopram oxalate 10 mg tablet 10 mg PO DAILY cyclobenzaprine 5 mg tablet 5 mg PO TID PRN (Reason: muscle pain) pregabalin 200 mg capsule 200 mg PO DAILY Araceliity 3 mg/0.5 mL pen injector 3 mg SUBCUT WEEKLY Rx Instructions: Weekly on Mondays lisinopril 20 mg Tablet 40 mg PO QAM Qty: 60 0RF hydrochlorothiazide 25 mg Tablet 25 mg PO QAM Qty: 30 0RF carvedilol [Coreg] 12.5 mg Tablet 12.5 mg PO Q12HR Qty: 60 0RF Patient Comments: PATIENT FEELS THIS IS THE MED THAT MADE HER HAVE N/V insulin glargine [Lantus Solostar U-100 Insulin] 100 unit/mL (3 mL) insulin pen 24 unit subcut QPM Qty: 15 0RF (DME) blood-glucose meter [OneTouch Verio Flex meter] Misc Qty: 1 0RF Rx Instructions: May substitute to in-stock meter and/or covered by insurance. Use As Directed (DME) OneTouch Verio test strips Strip Qty: 1 0RF Rx Instructions: May substitute to in-stock and/or covered by insurance strips. Use As Directed (DME) pen needle, diabetic 32 gauge x 1/4 Needle Qty: 1 0RF Rx Instructions: As Directed (DME) pen needle, diabetic 32 gauge x 5/32 Needle Qty: 1 0RF Rx Instructions: As Directed (DME) lancets [OneTouch Delica Plus Lancet] 30 gauge misc Qty: 1 0RF Rx Instructions: May substitute to in-stock and/or covered by insurance lancets. Use As Directed (DME) insulin syringe,safety needle 0.5 mL 31 gauge x 5/16 Syringe Qty: 1 0RF Rx Instructions: As Directed (DME) insulin syringe,safety needle 1 mL 32 gauge x 5/16 Syringe Qty: 1 0RF Rx Instructions: As Directed magnesium oxide 400 mg (241.3 mg magnesium) tablet 400 mg PO HS Qty: 60 0RF Discontinued potassium chloride 10 mEq tablet extended release 10 meq PO BIDWM Qty: 60 0RF Date of admission: 06/23/24 10:34 Primary Care Provider: [place],Crow Tang Admitting Provider: Erica Holland Attending physician on admission: Jean Ellison Condition: Stable Quality VTE Prophylaxis VTE prophylaxis: mechanical ordered Hospitalist MIPS Heart Failure (Exclusion) Patient has history of Heart Transplant or Left Ventricular Assistive Device?: No IF YES, STOP HERE Heart Failure (Qualifier) Patient has current or prior documentation of LVEF less than or equal to 40%, or mod/servere depressed LVSF?: No IF NO, STOP HERE
[2024-06-30] MEDS: NEOMYCIN/POLYMYXIN/BACITRACIN OINTMENT PACKET 1 PACKET TOPICAL (14:09)
[2024-07-01 12:58] LABS: Renin 0.46 ng/mL/h (0.25-5.82)
== END 2024-06-30 16:00 | disposition home or self-care (01) | DRG 720 ==
LOC: ANHED 19:20 → ANHICU 06-21 02:27 → ANH3MED 06-21 03:51
PROVIDERS: Family Medicine; Internal Medicine; Internal Medicine Gastroenterology; Internal Medicine Nephrology; Nurse Practitioner Adult Health; Nurse Practitioner Gerontology; Physician Assistant; Psychiatry & Neurology Neurology; Admitting Provider Internal Medicine; Emergency Provider Emergency Medicine; PCP Family Medicine
PROC: 0DJ08ZZ Inspection of Upper Intestinal Tract, Via Natural or Artificial Opening Endoscopic (ICD-10-PCS; principal; 2024-06-24 15:30)
DX: A41.9 Sepsis, unspecified organism (principal); K21.00 Gastro-esophageal reflux disease with esophagitis, without bleeding; N17.9 Acute kidney failure, unspecified; D50.9 Iron deficiency anemia, unspecified; E78.5 Hyperlipidemia, unspecified; E11.9 Type 2 diabetes mellitus without complications; E66.9 Obesity, unspecified; E86.0 Dehydration; E87.6 Hypokalemia; G47.33 Obstructive sleep apnea (adult) (pediatric); F32.A Depression, unspecified; I11.0 Hypertensive heart disease with heart failure; I50.32 Chronic diastolic (congestive) heart failure; F41.9 Anxiety disorder, unspecified; I95.1 Orthostatic hypotension; J32.4 Chronic pansinusitis; M06.9 Rheumatoid arthritis, unspecified; N39.0 Urinary tract infection, site not specified; R11.2 Nausea with vomiting, unspecified; R00.0 Tachycardia, unspecified; Z79.82 Long term (current) use of aspirin; Z79.85 Long-term (current) use of injectable non-insulin antidiabetic drugs; Z79.4 Long term (current) use of insulin; Z79.84 Long term (current) use of oral hypoglycemic drugs; Z87.891 Personal history of nicotine dependence
CPT/HCPCS: 36415; 36569; 70450; 70551; 71045; 74177; 80048; 80053; 80061; 80069; 81001; 81025; 82010; 82088; 82306; 82310; 82436; 82533; 82550; 82570; 82607; 82746; 82803; 82948; 83036; 83090; 83605; 83690; 83735; 83930; 83935; 84100; 84132; 84133; 84156; 84244; 84300; 84443; 84484; 84540; 85025; 85027; 86140; 87040; 87086; 87641; 88305; 93005; 93880; 94640; 95816; 96361; 96365; 96366; 96372; 96374; 96375; 97116; 97161; 97165; 97530; 97535; 99285; A9270; C1751; G0378; G0379; J0360; J0500; J0692; J0696; J0780; J1200; J1630; J1790; J1815; J2003; J2405; J2470; J2704; J2765; J3370; J3475; J3480; J7030; J7040; J7120; Q9967

== ENCOUNTER 2024-08-29 14:04 | Inpatient (IN) | payer OTHER, SELFPAY ==
--- NOTE | ~2024-08-29 | MR_ITS ---
Procedure: MR lumbar spine wo/w con Ordering provider: Laureen Jang MD History:54 years Female with . b/l LE proximal muscle weakness . Comparison: October 26, 2019 Technique: MRI lumbar spine with and without contrast. 20 mL MultiHance was given IV. FINDINGS: CONUS MEDULLARIS: Normal in position and appearance with no abnormal enhancement. The conus ends at t he level of L1-L2. LUMBAR VERTEBRAL BODIES: Normal height and alignment. no compression fracture. Normal marrow signal. No abnormal marrow enhancement. DISK SPACES: Disc desiccation seen at the level of L5-S1. T12-L1: No stenosis. L1-L2: No stenosis. Bilateral facet joint disease. L2-L3: No stenosis. L3-L4: No stenosis. Bilateral facet joint disease. L4-L5: No stenosis. Bilateral facet joint disease. L5-S1: No stenosis. Mild diffuse disc bulge. No significant narrowing of the foramina is seen. PARASPINOUS SOFT TISSUES: Normal. No abnormal paraspinous enhancement. Small left renal cyst. Edema in the subcutaneous tissues. IMPRESSION: 1. Multilevel facet joint disease. 2. No acute osseous abnormality. 3. Nonenhancing lesion. 4. Degenerative disc disease with mild diffuse disc bulge at the level of L5-S1. Reviewed, dictated and finalized at location A. IMPRESSION: 1. Multilevel facet joint disease. 2. No acute osseous abnormality. 3. Nonenhancing lesion. 4. Degenerative disc disease with mild diffuse disc bulge at the level of L5-S 1.
--- NOTE | ~2024-08-29 | MR_ITS ---
EXAMINATION: MR thoracic spine wo/w con DATE: 08/30/2024 14:28 INDICATION: Bilateral lower limb proximal muscle weakness TECHNIQUE: Magnetic resonance imaging (MRI) of the thoracic spine was performed without and with 20 m L Multihance intravenous contrast. Sagittal localizer T1-weighted FSE of the cervicothoracic spine wa s obtained. Sequences included sagittal T2-weighted FSE, sagittal T2-weighted FS FSE, sagittal T1-more ghted FSE and axial T1-weighted SE. Postcontrast sequences included axial T2-weighted FSE, sagittal T 1-weighted FS FSE, and axial T1-weighted FS SE. COMPARISON: thoracic spine CT dated 08/29/[address] dated 06/17/2023 FINDINGS: Alignment is normal.Chronic minimal anterior wedging at T7 and T8 and at T11. Normal marrow signal.Th is desiccation and mild disc height loss at T6-T7 and T9-T10. The remaining thoracic discs are normal . The discs do not extend beyond the endplate margins with no central canal stenosis. There is normal spinal cord signal no abnormally enhancing cord lesions. The conus terminates at L1-L2. Minimal to m ild multilevel thoracic facet osteoarthritis. No neural foraminal stenosis. Nonenhancing T2 hyperinte nse bilateral renal cysts measuring up to 1 cm on the right. There is also and 8 mm T2 hyperintense l ikely splenic cyst. IMPRESSION: 1. Minimal thoracic spondylosis with no central canal or neural foraminal stenosis and with normal co rd signal with no abnormally enhancing lesions. Reviewed, dictated and finalized at location A. IMPRESSION: 1. Minimal thoracic spondylosis with no central canal or neural foraminal steno sis and with normal cord signal with no abnormally enhancing lesions.
--- NOTE | ~2024-08-29 | CT_ITS ---
EXAMINATION: CT thoracic spine wo con DATE: 08/29/2024 20:03 INDICATION: weakness . TECHNIQUE: Computed tomography (CT) of the thoracic spine was performed without intravenous contrast. Automated exposure control and iterative reconstruction technique were employed. The dose-length pro duct was 1223.71 mGy-cm. COMPARISON: None FINDINGS: Vertebral body alignment intact. Vertebral body heights preserved. Mild multilevel degenera tive disc disease. No traumatic malalignment or fracture. Visualized lung parenchyma is clear. IMPRESSION: No acute fracture or traumatic malalignment detected in the thoracic spine. Reviewed, dictated and finalized at location K.
--- NOTE | ~2024-08-29 | CT_ITS ---
EXAMINATION: CT abd pelvis lumbar wo con DATE: 08/29/2024 18:32 INDICATION: ulcer tailbone; weakness prox BLE. GIORGI, +LFTs TECHNIQUE: Computed tomography (CT) of the abdomen and pelvis and lumbar spine was performed without intravenous contrast. Automated exposure control and iterative reconstruction technique were employed . The dose-length product was 1180.69 mGy-cm. COMPARISON: CT abdomen pelvis 06/20/2024. FINDINGS: Lower thorax: Coronary artery and mitral calcification. Liver: Enlarged. Biliary/Gallbladder: Gallbladder is normal. No bile duct dilation. Pancreas: Mild atrophy. Spleen: Scattered hypodensities, likely representing cysts or hemangiomas. Adrenals:No mass. Kidneys: No suspicious mass, obstructing stone, or hydronephrosis. GI tract: No small or large bowel dilation. Normal appendix. Mesentery/Peritoneum: No ascites, mass, or free air. Retroperitoneum: No mass. Atherosclerotic calcifications of intra-abdominal arterial vessels. Pelvis: Nearly empty urinary bladder. Enlarged uterus with amorphous calcifications within the uterin e body, likely fibroid. Normal left ovary. Right ovary not confidently identified.. Soft Tissues: Mild body wall edema. Small uncomplicated fat-containing umbilical hernia. Dermal thick ening and subcutaneous stranding over the midline lower anterior abdomen. Bones: No acute osseous finding. LUMBAR SPINE: 6 nonrib-bearing lumbar-type vertebral bodies. Pedicles intact. Normal vertebral body alignment. Vert ebral body heights preserved. Multilevel mild degenerative disc disease. Mild multilevel facet arthro florentin. No severe central canal or neural foraminal narrowing. IMPRESSION: Hepatomegaly. Mild body wall edema. Dermal thickening and subcutaneous inflammatory change/edema over the midline lower anterior abdomen, correlate for clinical findings of cellulitis/panniculitis. No CT evidence of sacral ulcer or sacral osteomyelitis. Reviewed, dictated and finalized at location K. IMPRESSION: Hepatomegaly. Mild body wall edema. Dermal thickening and subcutaneous inflammatory change/edema over the midline l ower anterior abdomen, correlate for clinical findings of cellulitis/panniculit is. No CT evidence of sacral ulcer or sacral osteomyelitis.
--- NOTE | ~2024-08-29 | XR_ITS ---
XR chest 2V Ordering provider: Addis Sher MD History: 54 years Female with . weakness . Comparison: June 26, 2024 FINDINGS: MEDIASTINUM: The cardiac silhouette is not enlarged. LUNGS: No infiltrates, effusions or pneumothorax. OTHER: No free air under the diaphragm. IMPRESSION: No acute cardiopulmonary pathology Reviewed, dictated and finalized at location A.
--- NOTE | ~2024-08-29 | MR_ITS ---
MRI of the cervical spine Clinical History: Weakness Technique: Axial T2-weighted and gradient images, and sagittal T1-weighted, T2-weighted, and STIR grey ges were acquired. Findings: There is no fracture or subluxation of the cervical spine. Vertebral bodies maintain normal height and line. No bone marrow signal reality seen. At C2-C3, there is no disc bulge or herniation. No spinal canal stenosis, cord compression, or neural foraminal narrowing. At C3-C4, there is mild disc osteophyte complex. Possible minimal left neural foraminal narrowing. Ri ght neural foramen preserved. No spinal canal stenosis or cord compression. At C4-C5, there is minimal disc osteophyte complex. No definite canal stenosis, cord compression, or neural foraminal narrowing. At C5 and C6 and C6-C7, there is no definite disc bulge or herniation. No spinal canal stenosis, cord compression, or neural foraminal narrowing at these levels. No abnormal signal seen in the spinal cord. Paravertebral soft tissues are unremarkable. Impression: Minimal degenerative spondylosis, as above. Reviewed, dictated and finalized at location M. Impression: Minimal degenerative spondylosis, as above.
[2024-08-29 14:14] VITALS: BP 153/81; PULSE 86; RESP 18; TEMP 36.8; O2SAT 99
--- OUTSIDE RECORDS SUMMARY | 2024-08-29 14:15 | XMS_ITS | Clinical Summary ---
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 Name Role Phone Crow Perry MD Primary Care Provider [phone] Allergies Active Allergy Reactions Criticality Noted Date Comments Atenolol Other (See comments) Reaction: PVC'S, Medications albuterol 2.5 mg /3 mL (0.083 %) nebulizer solution A ctive cloNIDine (CATAPRES) 0.1 mg tablet clonidine HCl 0.1 mg tablet TAKE 1 TABLET BY MOUTH THREE TIMES DAILY NEEDED Active ergocalciferol (VITAMIN D) 50,000 unit capsule TAKE 1 CAPSULE BY MOUTH WEEKLY 021 Active escitalopram (LEXAPRO) 20 mg tablet escitalopram 20 mg tablet TAKE 1 TABLET BY MOUTH EVERY DAY Active ferrous sulfate 325 mg (65 mg of elemental iron) tablet Active HYDROcodone-acetam inophen (NORCO) 5-325 mg per tablet hydrocodone 5 mg-acetaminoph en 325 mg tablet TAKE 1 TABLET BY MOUTH THREE TIMES DAILY NEEDED Active HYDROcodone-acetam inophen (NORCO) 5-325 mg per tablet Take 1 tablet by mouth 3 (three) times a day as needed Active ibuprofen (ADVIL,MOTRIN) 800 mg tablet Take 1 tablet (800 mg total) by mouth 3 (three) times a day Active metFORMIN XR (GLUCOPHAGE XR) 500 mg 24 hr tablet metformin ER 500 mg tablet,extende d release 24 hr TAKE 1 TABLET BY MOUTH TWICE DAILY BEFORE MEALS Active Dulera 100-5 mcg/actuation inhaler INHALE 2 PUFFS BY MOUTH TWICE DAILY DIRECTED 04/08/2 021 Active pregabalin (LYRICA) 150 mg capsule pregabalin 150 mg capsule Active traMADoL (ULTRAM) 50 mg tablet every 6 hours Act basilio traZODone (DESYREL) 50 mg tablet trazodone 50 mg tablet Active insulin lispro (HumaLOG, ADMELOG) 100 unit/mL pen for injection 022 Active famotidine (PEPCID) 20 mg tablet Take 1 tablet (20 mg total) by mouth 2 (two) times a day as needed for heartburn Active fluticasone propionate (FLONASE) 50 mcg/actuation nasal spray Active Xiidra 5 % dropperette 0.1 each (1 drop total) 2 (two) times a day Active magnesium oxide (MAG-OX) 400 mg (241.3 mg elemental magnesium) tablet Active aspirin 81 mg enteric coated tablet Take 1 tablet every day by oral route. Active carvediloL (COREG) 12.5 mg tablet Take 0.5 tablets (6.25 mg total) by mouth every 12 (twelve) hours 025 Active cetirizine (ZyrTEC) 10 mg tablet Take 1 tablet (10 mg total) by mouth daily 025 Active cyclobenzaprine (FLEXERIL) 5 mg tablet Take 1 tablet (5 mg total) by mouth 3 (three) times a day as needed 025 Active Trulicity 3 mg/0.5 mL pen injector ADMINISTER 3 MG UNDER THE SKIN EVERY WEEK 025 Active hydroxychloroquine (PLAQUENIL) 200 mg tablet Take 1 tablet (200 mg total) by mouth 2 (two) times a day 025 Active hydroCHLOROthiazid e (HYDRODIURIL) 25 mg tablet Take 1 tablet (25 mg total) by mouth every morning 025 Active LANTUS 100 unit/mL (3 mL) pen for injection ADMINISTER 24 UNITS UNDER THE SKIN EVERY DAY 025 Active lisinopriL (PRINIVIL,ZESTRIL) 20 mg tablet Take 1 tablet (20 mg total) by mouth every morning 025 Active ondansetron ODT (ZOFRAN-ODT) 4 mg disintegrating tablet DISSOLVE 1 TABLET ON THE TONGUE EVERY 8 HOURS NEEDED FOR NAUSEA OR VOMITING Active potassium chloride ER 20 mEq CR tablet Take 2 tablets (40 mEq total) by mouth 2 (two) times a day Active progesterone (PROMETRIUM) 100 mg capsule Take 1 capsule (100 mg total) by mouth Active rosuvastatin (CRESTOR) 40 mg tabletIndications: Carotid atherosclerosis, left Take 1 tablet (40 mg total) by mouth daily 90 tablet 3 025 2025 Active Contour Plus Test Strip strip USE DIRECTED THREE TIMES DAILY Active Contour Plus Blue Meter misc USE DIRECTED TO CHECK BLOOD SUGAR Active carisoprodoL (SOMA) 350 mg tablet Active celecoxib (CeleBREX) 100 mg capsule Active cephalexin (KEFLEX) 500 mg capsule TAKE 1 CAPSULE BY MOUTH FOUR TIMES DAILY FOR 14 DAYS 024 Active cyanocobalamin (Vitamin B-12) 1,000 mcg/mL injection ADMINISTER 1 ML UNDER THE SKIN EVERY MONTH Active Advair HFA 230-21 mcg/actuation inhaler INHALE 2 PUFFS BY MOUTH EVERY 12 HOURS Active Microlet Lancet misc USE DIRECTED THREE TIMES DAILY Active nystatin cream APPLY TOPICALLY TO THE AFFECTED AREA TWICE DAILY FOR 2 TO 4 WEEKS Active TRUEplus Pen Needle 32 gauge x 5/32 needle USE TO INJECT WITH INSULIN DIRECTED 3 WITH SHORT ACTING INSULIN AND 1 WITH BASAL INSULIN Active HYDROcodone-acetam inophen (NORCO) 7.5-325 mg per tablet TAKE ONE TABLET BY MOUTH EVERY DAY OR TWICE DAILY NEEDED Active mupirocin (BACTROBAN) 2 % ointmentIndication s:Sacral wound, initial encounter Apply topically 2 (two) times a day 22 g 025 Active amLODIPine (NORVASC) 10 mg tablet amlodipine 10 mg tablet 2024 Discontinued(N o longer taking - Do not display on AVS) Farxiga 10 mg tablet 021 2024 Discontinued(N o longer taking - Do not display on AVS) fenofibrate nanocrystallized (TRICOR) 145 mg tablet Take 145 mg by mouth every morning 021 2024 Discontinued(N o longer taking - Do not display on AVS) glimepiride (AMARYL) 2 mg tablet glimepiride 2 mg tablet TAKE 2 TABLETS BY MOUTH TWICE DAILY BEFORE MEAL(S) 2024 Discontinued(N o longer taking - Do not display on AVS) glyBURIDE (DIABETA) 2.5 mg tablet glyburide 2.5 mg tablet 2024 Discontinued(N o longer taking - Do not display on AVS) lovastatin (MEVACOR) 20 mg tablet Take 1 tablet (20 mg total) by mouth nightly 021 2024 Discontinued(N o longer taking - Do not display on AVS) pantoprazole DR (PROTONIX) 40 mg EC tablet pantoprazole 40 mg tablet,delayed release TAKE 1 TABLET BY MOUTH EVERY DAY 2024 Discontinued(N o longer taking - Do not display on AVS) rosuvastatin (CRESTOR) 40 mg tablet rosuvastatin 40 mg tablet TAKE 1 TABLET BY MOUTH 2 TIMES A WEEK AT BEDTIME 2024 Discontinued sertraline (ZOLOFT) 50 mg tablet sertraline 50 mg tablet 2024 Discontinued(N o longer taking - Do not display on AVS) fluconazole (DIFLUCAN) 150 mg tablet TAKE 1 TABLET BY MOUTH EVERY WEEK FOR 7 DAYS DIRECTED 2024 Discontinued(N o longer taking - Do not display on AVS) Active Problems Problem Noted Date Diagnosed Date [...] 07/02/2013 Overview (05/21/2016): DMII WO CMP UNCNTRLD Encounters Date Type Department Care Team Description 08/29/2024 12:30 PM CDT Office Visit [facility] at [address] [phone] Kimberlee Preciado NP Bilateral leg weakness (Primary Dx); Sacral wound, initial encounter 08/11/2024 1:30 PM CDT Office Visit [facility] Cardiology [address] [place] [address] Debbie Gaitan NP Carotid atherosclerosis, left (Primary Dx); Hypotension due to drugs; Sinus tachycardia; Hospital discharge follow-up; Dietary counseling 07/12/2024 12:55 PM CDT Ancillary Procedure [facility] Imaging at [address] [phone] Acute pain of left shoulder 07/12/2024 12:50 PM CDT Ancillary Procedure [facility] Imaging at [address] [phone] Acute pain of left shoulder 07/12/2024 12:15 PM CDT Office Visit [facility] at [address] [phone] Peggy Allen PA Acute pain of left shoulder (Primary Dx); Acute pain of right knee; Fall, initial encounter; 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 Orders Only [facility] Cardiology [address] [place] [address] Nica Jaffe NP from Last 3 Months Immunizations Immunization Administration Dates Next Due DTP [...] on file 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 Gender Identity Not on file Sexual Orientation Not on file Obstetrics History Last Filed Vital Signs Vital Sign Reading Time Taken Comments Blood Pressure 124/64 08/29/2024 12:29 PM CDT Pulse 88 08/29/2024 12:29 PM CDT Temperature 36.1 C (97 F) 08/29/2024 12:29 PM CDT Respiratory Rate 16 08/29/2024 12:29 PM CDT Oxygen Saturation 98% 08/29/2024 12:29 PM CDT Inhaled Oxygen Concentration - - Weight 99.8 kg (220 lb) 08/29/2024 12:29 PM CDT Height 165.1 cm (5' 5) 08/29/2024 12:29 PM CDT Body Mass Index 36.61 08/29/2024 12:29 PM CDT Plan of Treatment Health Maintenance Due [...] 08/03 Lipid Panel 01/13/2024 01/12/2023 Influenza Vaccine (#1) 2024 3, 10/19/2020, 10/18/2019, Additional history exists DTaP/Tdap/Td Vaccine (3 - Td or Tdap) 10/17/2029 10/18/2019, 11/16/2006 Procedures Procedure Name Priority Date/Time Associated Diagnosis Comments XR KNEE RIGHT 3 VIEWS Schedule MADISYN, Read MADISYN (Appt Today, Awaiting Results) 07/12/2024 1:04 PM CDT Acute pain of left shoulder XR SHOULDER LEFT 2 OR MORE VIEWS Schedule MADISYN, Read MADISYN (Appt Today, Awaiting Results) 07/12/2024 1:03 PM CDT Acute pain of left shoulder CARDIOLOGY DOCUMENT SCAN Routine 06/27/2024 4:01 PM CDT LIPID PANEL Routine 01/12/2023 7:51 AM STEEL SPAR OPERATOR from Last 3 Months or Most Recently Relevant to Health Maintenance Results * XR Knee Right 3 Vw (07/12/2024 1:04 PM CDT) Anatomical Region Laterality Modality Lower Extremities, Knee Right Digital Radiography 07/12/2024 2:04 PM CDT Narrative 07/12/2024 2:05 PM CDT EXAM DESCRIPTION: XR SHOULDER LEFT 2 OR MORE VIEWS; XR KNEE RIGHT 3 VIEWS REASON FOR STUDY: fall Pt complains of shoulder and knee pain after a fall today. Medial knee pain and lateral shoulder pain. No prior fx or surgery FINDINGS: Three views left shoulder and three views right knee submitted without comparison. Left shoulder: No acute fracture. Alignment is normal. Infraspinatus calcific tendinitis is present. The glenohumeral and acromioclavicular joints are normal. Right knee: No acute fracture. Alignment is normal. Mild tricompartmental right knee osteoarthritis. IMPRESSION: No acute fracture. Left infraspinatus calcific tendinitis. Mild tricompartmental right knee osteoarthritis. THIS IS AN ELECTRONICALLY VERIFIED FINAL REPORT 07/12/2024 2:05 PM - Electronically signed by Smooth Fernandez M.D. T: Report ID: [id number] Reading Location: [id number] Procedure Note Smooth Fernandez MD - 07/12/2024 EXAM DESCRIPTION: XR SHOULDER LEFT 2 OR MORE VIEWS; XR KNEE RIGHT 3 VIEWS REASON FOR STUDY: fall Pt complains of shoulder and knee pain after a fall today. Medial kneepain and lateral shoulder pain. No prior fx or surgery FINDINGS: Three views left shoulder and three views right knee submitted without comparison. Left shoulder: No acute fracture. Alignment is normal. Infraspinatus calcifictendinitis is present. The glenohumeral and acromioclavicular joints are normal. Right knee: No acute fracture. Alignment is normal. Mild tricompartmental right knee osteoarthritis. IMPRESSION: No acute fracture. Left infraspinatus calcific tendinitis. Mild tricompartmental right knee osteoarthritis. THIS IS AN ELECTRONICALLY VERIFIED FINAL REPORT 07/12/2024 2:05 PM - Electronically signed by Smooth Fernandez M.D. T: Report ID: [id number] Reading Location: [id number] Peggy [facility]ON IM XR PROCEDURES Final Result * XR Shoulder Left 2+ Vw (07/12/2024 1:03 PM CDT) Anatomical Region Laterality Modality Upper Extremities, Shoulder Left Digi juan jose Radiography 07/12/2024 2:04 PM CDT Narrative 07/12/2024 2:05 PM CDT EXAM DESCRIPTION: XR SHOULDER LEFT 2 OR MORE VIEWS; XR KNEE RIGHT 3 VIEWS REASON FOR STUDY: fall Pt complains of shoulder and knee pain after a fall today. Medial knee pain and lateral shoulder pain. No prior fx or surgery FINDINGS: Three views left shoulder and three views right knee submitted without comparison. Left shoulder: No acute fracture. Alignment is normal. Infraspinatus calcific tendinitis is present. The glenohumeral and acromioclavicular joints are normal. Right knee: No acute fracture. Alignment is normal. Mild tricompartmental right knee osteoarthritis. IMPRESSION: No acute fracture. Left infraspinatus calcific tendinitis. Mild tricompartmental right knee osteoarthritis. THIS IS AN ELECTRONICALLY VERIFIED FINAL REPORT 07/12/2024 2:05 PM - Electronically signed by Smooth Fernandez M.D. T: Report ID: [id number] Reading Location: [id number] Procedure Note Smooth Fernandez MD - 07/12/2024 EXAM DESCRIPTION: XR SHOULDER LEFT 2 OR MORE VIEWS; XR KNEE RIGHT 3 VIEWS REASON FOR STUDY: fall Pt complains of shoulder and knee pain after a fall today. Medial kneepain and lateral shoulder pain. No prior fx or surgery FINDINGS: Three views left shoulder and three views right knee submitted without comparison. Left shoulder: No acute fracture. Alignment is normal. Infraspinatus calcifictendinitis is present. The glenohumeral and acromioclavicular joints are normal. Right knee: No acute fracture. Alignment is normal. Mild tricompartmental right knee osteoarthritis. IMPRESSION: No acute fracture. Left infraspinatus calcific tendinitis. Mild tricompartmental right knee osteoarthritis. THIS IS AN ELECTRONICALLY VERIFIED FINAL REPORT 07/12/2024 2:05 PM - Electronically signed by Smooth Fernandez M.D. T: Report ID: [id number] Reading Location: [id number] Peggy [facility]ON IMG XR PROCEDURES Final Result * Cardiology Document Scan (06/27/2024 4:01 PM CDT) Anatomical Region Laterality Modality Other Nica Jaffe NP CV CARDIAC SERVICES PROCEDUR ES Final Result * (ABNORMAL) Lipid panel (01/12/2023 7:51 AM STEEL SPAR OPERATOR) SCRIBED Cholesterol, Total 122 0 - 200 EXTERNAL LAB SCRIBED HDL 41 40 - 100 EXTERNAL LAB SCRIBED LDL 51 0 - 100 EXTERNAL LAB SCRIBED Triglycerides 253(A) 0 - 150 EXTERNAL LAB Blood 01/12/2023 7:51 AM STEEL SPAR OPERATOR Historical Provider LAB BLOOD ORDERABLES Aubree fagan Result EXTERNAL LAB from Last 3 Months or Most Recently Relevant to Health Maintenance Insurance [facility] Care Teams Parquetry Floor Layer Relationship Specialty Start Date End Date Crow Perry MD [address] [place] [address] PCP - General Family Medicine 08/11/24
--- OUTSIDE RECORDS SUMMARY | 2024-08-29 14:16 | XMS_ITS | Data Portability ---
Author Organization [place] [facility] [employer], Main Office Address [address] [place] [address] Assessment Encounter Date Assessment Date Assessment LastModified by Organization Details LastModified Time 04/24/2023 04/24/2023 I have reconciled the patient's medications post their discharge from inpatient facility. Not available 04/24/2023 08:55:09 Plan of Treatment Reminders Order Date Submit Date Provider Last Modified By Organization Details Last Modified Time Details Appointments None recorded. Lab None recorded. Referral infectious disease specialist referral - Please call patient to schedule an appointment . 2023 024 [email or web address] Jas Lal, [facility] , [address], [place], [address], 4 08:54:11 Procedures None recorded. Surgeries None recorded. Imaging None recorded. Medication Orders valacyclovi r 1 gram tablet 2023 024 [facility] #60274, [address] [place] [address], [id number], 4 11:38:31 rosuvastati n 40 mg tablet 2023 024 [facility] #98064, [address] [place] [address], [id number], 4 11:38:33 ibuprofen 800 mg tablet 2023 024 [facility]59782, [address] [place] [address], [id number], 4 11:38:24 trazodone 50 mg tablet 2023 024 [facility] #72434, [address] [facility], [place], [place], [id number], 4 11:38:29 escitalopra m 20 mg tablet 2023 024 [facility] #52200, [address], [place], [place], [id number], 4 11:38:31 furosemide 40 mg tablet 2023 024 [facility] #79813, [address] [place] [address], [id number], 4 11:38:30 Vitamin D2 1,250 mcg (50,000 unit) capsule 2023 024 [facility] #52264, [address] [place] [address], [id number], 4 11:38:23 carisoprodo l 350 mg tablet 2023 024 [facility] #47346, [address] [facility], [place], [place], [id number], 4 11:38:48 Trulicity 3 mg/0.5 mL subcutaneou s pen injector 2023 024 [facility] #41498, [address], [place], [id number], 4 11:38:29 metformin ER 500 mg tablet,exte nded release 24 hr 2023 024 [facility] #37560, [address] [facility], [place], [place], [id number], 4 11:38:32 famotidine 20 mg tablet 2023 024 [facility], [address], [place], [place], [id number], 4 11:38:22 clonidine HCl 0.1 mg tablet 2023 024 [facility]00017, [address], [place], [place], [id number], 4 11:38:23 amlodipine 10 mg tablet 2023 024 [facility]75243, [address], [place], [place], [id number], 4 11:38:20 potassium chloride ER 10 mEq tablet,exte nded release 2023 024 [facility]29950, [address] [facility], [place], [place], [id number], 4 11:38:49 nadolol 80 mg tablet 2023 024 [facility] #34837, [address] [facility], [place], [place], [id number], 4 11:38:32 fluticasone propionate 50 mcg/actuati on nasal spray,suspe nsion 2023 024 [facility]71313, [address] [facility], [place], [place], [id number], 4 11:38:21 magnesium oxide 400 mg (241.3 mg magnesium) tablet 2023 024 [facility] #99258, [address], [place], [place], [id number], 4 11:38:22 pregabalin 200 mg capsule 2023 024 [facility] #58913, [address], [place], [place], [id number], 4 11:38:45 hydrocodone 10 mg-acetamin ophen 325 mg tablet 2023 024 [facility] #85138, [address], [place], [place], [id number], 4 11:38:49 prednisone 20 mg tablet 2023 024 [facility] #45645, [address], [place], [place], [id number], 4 11:38:22 sulfamethox azole 800 mg-trimetho prim 160 mg tablet [address] [facility] #49468, [address] [facility], [place], [place], [id number], 4 11:27:10 cephalexin 500 mg capsule [address] [facility] #36041, [address] [place] [address], [id number], 4 11:27:15 sulfamethox azole 800 mg-trimetho prim 160 mg tablet [address] [facility] #25896, [address], [place], [place], [id number], 4 11:27:10 cephalexin 500 mg capsule [address] [facility] #99449, [address] [place] [address], [id number], 4 11:27:15 fluconazole 150 mg tablet 2023 024 [facility] #66370 [address], [place], [place], [id number], 08:39:01 doxycycline hyclate 100 mg capsule 2023 024 [email or web address] #26942, [address], [place], [place], [id number], 17:41:14 Patient TargetsNo targets recorded. Patient Instructions Encounter Date Encounter Id Patient Instructions Last Modified By Organization Details Last Modified Time 04/24/2023 [id number] Thank you for your visit to our [...] at home, please call us to discuss. [email or web address] Not available 04/24/2023 08:55:09 Homebound Status : Required Home Health Services: Durable Medical Equipment needed: Billing Guidelines CPT code 56564- Transitional Care Management services with moderate medical decision complexity (bxso-oe-rcel visit within 14 days of discharge). CPT code 66786- Transitional Care Management services with high medical decision complexity (isuj-iy-pdds visit within 7 days of discharge). [email or web address] Not available 04/24/2023 08:55:09 Reason for Referral Infectious Disease Specialis t Referral for Cellulitis of lower limb Please call patient to schedule an appointment. Referring Physician: Jyoti Hahn, Family Medicine, Encounter Date: 04/30/2023 Results Created Date Observation Date Name Description Value Unit Range Abnormal Flag Note LastModifiedBy Organization Detail LastModifiedTime 04/06/19 24 04/06/2023 XR, chest , 2 view No observ ation record ed. [facility] [address], [place], [address], 04/16/2023 11:48:51 04/06/19 24 04/06/2023 US, doppl er, venou s No observ ation record ed. [address], [place], [address], 04/16/2023 11:55:54 04/06/19 24 04/06/2023 XR, foot No observ ation record ed. [address], [place], [address], 04/16/2023 11:57:17 04/08/19 24 04/08/2023 MRI, lower extre mity, w/ contr ast No observ ation record ed. [address], [place], [address], 06/28/2023 13:14:26 04/10/19 24 04/10/2023 CT, chest , w/ contr ast No observ ation record ed. [address], [place], [address], 04/16/2023 11:53:56 04/12/19 24 04/12/2023 XR, chest , 1 view No observ ation record ed. [address], [place], [address], 04/16/2023 11:49:54 04/14/19 24 04/13/2023 US, echoc ardio gram No observ ation record ed. [address], [place], [address], 04/16/2023 11:56:39 Result Notes None recorded. Problems Name Problem SNOMED Code Status Onset Date Resolution Date Notes Provider Name and Address Organization Details Recorded Time Metatarsal tara 14276779 Active 2020 Not Available [facility] 3 00:45:56 Otalgia 36552490 Active Not Available [facility] 3 00:45:56 Liver function tests outside reference range 071003378 Active Not Available [facility] 3 00:45:56 Asthma 631708308 Active Not Available [facility] 3 00:45:57 Sciatica 89092519 Active Not Available [facility] 3 00:45:57 Fluid level behind tympanic membrane Active Not Available [facility] 3 00:45:57 Gastroesop hageal reflux disease without esophagiti s 770621845 Active 2020 Not Available [facility] 3 00:45:57 Dysmenorrh ea 004749261 Active Not Available [facility] 3 00:45:57 Anemia 881590463 Active Not Available [facility] 3 00:45:57 Injury of coccyx 072458995 Active Not Available [facility] 3 00:45:57 Knee pain Active Not Available [facility] 3 00:45:57 Type 2 diabetes mellitus without complicati on 172795517 Active 2020 Not Available [facility] 3 00:45:57 Tachycardi a 7001072 Active Not Available [facility] 3 00:45:57 Vitamin D deficiency 13867336 Active Not Available [facility] 3 00:45:58 Sinusitis 26696948 Active Not Available [facility] 3 00:45:58 Menorrhagi a 004669174 Active Not Available [facility] 3 00:45:58 Uncontroll ed type 2 diabetes mellitus 804578542 Active Not Available [facility] 3 00:45:58 Well controlled type 2 diabetes mellitus 473885776 Active 2021 Not Available [facility] 3 00:45:58 Upper respirator y infection 10713808 Active Not Available [facility] 3 00:45:58 Hyperlipid emia 93926219 Active Not Available [facility] 3 00:45:59 Essential hypertensi on 05047564 Active Not Available [facility] 3 00:45:59 Dyspnea on exertion 04732184 Active 2020 Not Available [facility] 3 00:45:59 Muscle pain 55633172 Active 2020 Not Available [facility] 3 00:45:59 Rheumatoid arthritis 54946805 Active 2020 Not Available [facility] 3 00:45:59 Diabetes mellitus 34547392 Active Not Available [facility] 3 00:45:59 Sleep apnea 44554155 Active 2020 Not Available [facility] 3 00:46:00 Chronic pain 57237564 Active Not Available [facility] 3 00:46:00 Premenstru al tension syndrome 09896687 Active Not Available [facility] 3 00:46:00 Fatigue 67774150 Active 2020 Not Available [facility] 3 00:46:00 Iron deficiency anemia 65370517 Active Not Available [facility] 3 00:46:00 Deliveries by 992008287 Active 2022 Jyoti Hahn MD [address], [address], [place], [address] , [place] [facility] 3 14:01:21 Gestationa l hypertensi on Active 2022 Jyoti Hahn MD [address], [address], [place], [address] , [place] [facility] 3 14:01:21 Type 2 diabetes mellitus 72568394 Active 2022 Jyoti Hahn MD [address], [address], [place], [address] , [place] [facility] 3 14:01:21 Acute sinusitis 94410552 Active 2022 Jyoti Hahn MD [address], [address], [place], [address] , [place] [facility] 3 17:02:46 Chronic back pain 282444934 Active 2022 JESSICA Garcia [address], [address], [place], [address] , [employer] [facility] 3 18:00:40 Acid reflux 598905737 Active 2022 JESSICA Garcia [address], [address], [place], [address] , [place] [facility] [employer] [facility] 3 10:13:35 Hyperglyce corky due to type 2 diabetes mellitus 0438336640203 09 Active 2022 JESSICA Garcia [address], [address], [place], [address] , [employer] 3 12:09:33 Menopausal symptom 68086873 Active 2022 JESSICA Garcia [address], [address], [place], [address] , [employer] [facility] 3 12:11:40 Obesity 728721650 Active 2022 JESSICA Garcia [address], [address], [place], [address] , [employer] [facility] 3 12:22:47 Cobalamin deficiency 281729801 Active 2022 JESSICA Garcia [address], [address], [place], [address] , [employer] [facility] 3 10:30:41 Postmenopa usal bleeding 95967304 Active 2022 JESSICA Garcia [address], [address], [place], [address] , [employer] [facility] 3 10:42:36 Chronic hypokalemi a 77848737 Active 2022 JESSICA Garcia [address], [address], [place], [address] , [employer] [facility] 3 13:58:39 Hypokalemi a 15214497 Active 2022 Jyoti Hahn MD [address], [address], [place], [address] , [place] [facility] 3 08:37:56 Pain of ear 165612501 Active 2022 Jyoti Hahn MD [address], [address], [place], [address] , [place] [facility] 3 14:23:43 Chronic obstructiv e pulmonary disease 11572602 Active 2022 JESSICA Garcia [address], [address], [place], [address] , [place] [facility] 3 13:56:38 Herpes labialis 6148946 Active 2022 JESSICA Garcia [address], [address], [place], [address] , [place] [facility] 3 17:23:57 Chronic sinusitis 25266902 Active 2022 JESSICA Garcia [address], [address], [place], [address] , [place] [facility] 3 10:10:11 Edema of lower extremity 419974974 Active 2022 JESSICA Garcia [address], [address], [place], [address] , [place] [facility] 3 10:12:44 Dry eyes 157335264 Active 2022 Jyoti Hahn MD [address], [address], [place], [address] , [place] [facility] 3 09:18:18 Dry eyes 068235842 Active 2022 Jyoti Hahn MD [address], [address], [place], [address] , [place] [facility] 3 09:18:42 Headache 90037677 Active 2022 Jyoti Hahn MD [address], [address], [place], [address] , [place] [facility] 3 10:10:10 Iron deficiency 82818075 Active 2022 Jyoti Hahn MD [address] [address], [place], [address] , [facility] [employer] [facility] [employer] [facility] 3 10:12:16 Pain of multiple joints 16385495 Active 2023 Jyoti Hahn MD [address] [address], [place], [address] , [facility] [employer] [facility] [employer] [facility] 4 12:21:26 Chronic pansinusit is 25983328 Active 2023 Jyoti Hahn MD [address] [address], [place], [address] , [facility] [employer] [facility] [employer] [facility] 4 12:36:59 Magnetic resonance imaging of brain abnormal 295147337 Active 2023 Jyoti Hahn MD [address] [address], [place], [address] , [facility] [employer] [facility] [employer] 4 12:42:51 Cellulitis 124624247 Active 2023 Jyoti Hahn MD [address] [address], [place], [address] , [facility] [employer] [facility] [employer] 4 09:01:09 Pneumonia 173218646 Active 2023 MD [address] [address], [place], [address] , [facility] [employer] [facility] [employer] [facility] 4 09:07:49 Cellulitis of lower limb 681983071 Active 2023 MD [address] [address], [place], [address] , [facility] [employer] [facility] [employer] [facility] 4 17:41:49 Problem Notes None recorded. Procedures Surgical History Date Name Laterality Status Provider Name and Address Organization Details Recorded Time 4 Transitional_Ca re_Management completed Nita Mckinnon LPN [place] [employer] [facility] [employer] [facility] 04/24/2023 08:55:09 3 Transitional_Ca re_Management completed Nita Mckinnon LPN [facility] 09/19/2022 08:25:05 1 endometrial ablation completed JESSICA Garcia [address], [place], [address], [employer] 07/17/2022 10:50:11 Imaging Results None recorded. Procedure Notes None recorded. Medical Equipment None Reported. Allergies Allergen ID Allergen Name Allergen Category Reaction Reaction Severity Criticality Documentation Date Start Date Code Code System Note Provider Name and Address Organization Details Recorded Time 398 atenolol medicatio n other severe Not available 04/16/2022 1202 RxNorm twent y years ago Not Available [facility] 3 00:52:08 Medications Name Sig Start Date Stop [...] day by oral route for 14 days. 03/14 /2024 completed Not Available Not Available Not Available carvedilo l 12.5 mg tablet TAKE 1 TABLET BY MOUTH EVERY 12 HOURS active Not Available Not Available No t Available ipratropi um 0.5 mg-albute rol 3 [...] No t Available trazodone 50 mg tablet TAKE 1 TABLET BY MOUTH AT BEDTIME NEEDED active Not Available Not [...] ORAL ROUTE ONCE DAILY FOR 4 DAYS active Not Available Not Available No t Available glyburide 5 mg tablet TAKE ONE TABLET BY MOUTH TWICE DAILY 12/08 completed Not Available Not Available Not Available ibuprofen 800 mg tablet TAKE 1 TABLET BY MOUTH THREE TIMES DAILY NEEDED active Not Available Not Available No t Available Novolin N NPH U-100 Insulin isophane 100 [...] completed Not Available Not Available Not Available lisinopri l 20 mg tablet TAKE 2 TABLETS BY MOUTH EVERY MORNING active Not Available Not Available No t Available ondansetr on HCl 4 mg tablet [...] MOUTH THREE TIMES DAILY FOR 10 DAYS active Not Available Not Available No t Available potassium chloride ER 10 mEq tablet,ex tended release TAKE 1 TABLET BY MOUTH DAILY NEEDED active Not Available Not Available No t Available insulin syringe U-100 with needle 1 mL 29 gauge x 7/16 U UTD 12/30 completed Not Available Not Available Not Available sulfameth oxazole 800 mg-trimet hoprim 160 mg tablet TAKE 1 TABLET BY MOUTH EVERY 12 HOURS FOR 5 DAYS active Not Available Not Available No t Available hydrocodo ne 10 mg-acetam inophen 325 mg tablet TAKE 1 TABLET BY MOUTH THREE TIMES DAILY NEEDED active Not Available Not Available No t Available doxycycli ne monohydra te 100 mg tablet TAKE 1 TABLET BY MOUTH TWICE DAILY FOR 10 DAYS active Not Available Not Available No t Available tramadol 50 mg tablet TAKE 1 [...] ) tablet TAKE 1 TABLET BY MOUTH AT BEDTIME active Not Available Not Available [...] t Available prednison e 2.5 mg tablet 07/03 [...] Not Available Not Available No t Available nystatin 100,000 unit/gram topical cream APPLY TOPICALL Y TO THE AFFECTED AREA TWICE DAILY FOR 2 TO 4 WEEKS active Not Available Not Available No [...] omeprazol e 20 mg capsule,d elayed release TAKE 1 CAPSULE BY MOUTH EVERY DAY active Not Available Not Available No t Available cephalexi n 500 mg tablet Take 1 tablet twice a day by oral route for 7 days. 07/07 completed Not Available Not Available Not Available folic acid 1 mg tablet TAKE 1 TABLET BY MOUTH EVERY DAY 09/10 completed Not Available Not Available Not Available hydrochlo rothiazid e 25 mg tablet TAKE 1 TABLET BY MOUTH EVERY MORNING active Not Available Not Available No t Available furosemid e 20 mg tablet TAKE 1 TABLET BY MOUTH EVERY DAY active Not Available Not Available No t Available alprazola m 2 mg tablet 04/18 completed Not Available Not Available Not Available gabapenti n 100 mg capsule TAKE 1 CAPSULE BY MOUTH THREE TIMES DAILY FOR 90 DAYS 03/03 completed Not Available Not Available Not Available ergocalci ferol (vitamin D2) 1,250 mcg [...] TAKE 1 TABLET BY MOUTH TWICE DAILY active Not Available [...] No t Available celecoxib 100 mg capsule active Not Available Not Available Not Available ondansetr on 4 mg disintegr ating tablet DISSOLVE 1 TABLET ON THE TONGUE EVERY 8 HOURS NEEDED FOR NAUSEA OR VOMITING active Not Available Not Available No t Available fluticaso ne propionat e 50 mcg/actua tion nasal spray,[employer] pension SHAKE LIQUID WELL AND INSTILL 1 SPRAY INTRANAS ALLY TO EACH NOSTRIL DAILY active Not Available Not Available No t Available metformin ER 500 mg tablet,ex tended release 24 hr TAKE 2 TABLETS BY MOUTH TWICE DAILY active Not Available [...] completed Not Available Not Available Not Available Microlet Lancet USE DIRECTED THREE TIMES DAILY active Not Available Not Available No t Available metoclopr amide 10 mg tablet TAKE [...] TABLET BY MOUTH EVERY 12 HOURS FOR 3 DAYS FOR UTI. START THE MORNING OF 07/01 active Not Available Not Available No t Available amoxicill in 500 mg-potass ium clavulana te 125 mg tablet TAKE 1 TABLET BY MOUTH THREE TIMES DAILY active Not Available Not Available No t Available insulin lispro (U-100) 100 unit/mL subcutane [...] Not Available escitalop bakari 10 mg tablet TAKE [...] Not Available Not Available Not Avai lable cyclobenz aprine 5 mg tablet TAKE 1 [...] MOUTH 2 TIMES A WEEK AT BEDTIME active Not Available Not Available No t Available hydrocodo ne 10 mg-acetam inophen 300 mg [...] 100 unit/mL (3 mL) subcutane ous pen ADMINIST ER 24 UNITS UNDER THE SKIN EVERY DAY active Not Available Not Available No t Available carisopro dol 250 mg tablet Please [...] chloride ER 20 mEq tablet,ex tended release TAKE 2 TABLETS BY MOUTH TWICE DAILY active Not Available Not Available No t Available Levemir FlexTouch U-100 Insulin 100 unit/mL (3 [...] Not Available No t Available Flucelvax Quad (PF) 60 mcg (15 mcg x [...] TRUEplus Pen Needle 32 gauge x USE TO INJECT WITH INSULIN DIRECTED 3 WITH SHORT ACTING INSULIN AND 1 WITH BASAL INSULIN active Not Available Not Available No [...] Available Not Available Not Available Afluria Qd (36 mos up)(PF)60 mcg (15 mcg x4)/0.5 [...] Not Available Not Available No t Available Contour Plus Test Strip USE DIRECTED THREE TIMES DAILY active Not Available Not Available No t Available Contour Plus Blue Meter USE DIRECTED TO CHECK BLOOD SUGAR active Not Available Not Available No t Available Vitals Date Recorded Body height Body mass index (BMI) Body weight Body temperature Heart rate Oxygen saturation Oxygen saturation in Arterial blood by Pulse oximetry Systolic And Diastolic Provider Name and Address Organization Details Last Updated DateTime 4 165.1 cm 37.9 kg/m2 877220. 06 g 98.1 [degF] 88 /min 96 % 96 % 148/84 mm[Hg] Nita Mckinnon LPN [facility] [employer] 4 08:56:11 Date Recorded Body height Body mass index (BMI) Body weight Body temperature Heart rate Oxygen saturation Oxygen saturation in Arterial blood by Pulse oximetry Systolic And Diastolic Provider Name and Address Organization Details Last Updated DateTime 4 165.1 cm 37.1 kg/m2 448516. 1 g 97.9 [degF] 91 /min 96 % 96 % 148/86 mm[Hg] Dariana Luciano RN [facility] [employer] 4 17:15:29 Date Recorded Body height Body mass index (BMI) Body weight Body temperature Heart rate Oxygen saturation Oxygen saturation in Arterial blood by Pulse oximetry Systolic And Diastolic Provider Name and Address Organization Details Last Updated DateTime 4 165.1 cm 36.8 kg/m2 636393. 91 g 97.3 [degF] 92 /min 96 % 96 % 120/76 mm[Hg] Dariana Luciano RN [facility] [employer] [facility] 4 17:18:18 Date Recorded Body height Body mass index (BMI) Body weight Body temperature Heart rate Oxygen saturation Oxygen saturation in Arterial blood by Pulse oximetry Systolic And Diastolic Provider Name and Address Organization Details Last Updated DateTime 4 165.1 cm 36.9 kg/m2 980055. 51 g 98.2 [degF] 87 /min 97 % 97 % 140/80 mm[Hg] Dariana Luciano RN [facility] 11:17:04 Social History Question Answer Notes LastModified by [employer] Details LastModified Time Tobacco Smoking Status Former Smoker quit 2004 Tricia Dick crowley [place] 03/16/2023 12:13:15 What Is Your Level Of Caffeine Consumption? Moderate [id number] Information not available 04/16/2022 How Much Tobacco Do You Chew? None [id number] Information not available 04/16/2022 In The 14 Days Before Symptom Onset, Have You Had Close Contact With A Laboratory-confir med COVID-19 While That Case Was Ill? No [email or web address] Information not available 03/16/2023 In The 14 Days Before Symptom Onset, Have You Had Close Contact With A Person Who Is Under Investigation For COVID-19 While That Person Was Ill? No [email or web address] Information not available 03/16/2023 What Type Of Diet Are You Following? REGULAR [id number] Information not available 04/16/2022 Are You Following A Low Salt Diet? No [email or web address] Information not available 03/16/2023 What Was The Date Of Your Most Recent Tobacco Screening? 05/23/2020 Information not available 03/16/2023 How Much Tobacco Do You Smoke? 1 PPD [id number] Information not available 04/16/2022 Has Tobacco Cessation Counseling Been Provided? No [email or web address] Information not available 03/16/2023 Do You Have Any Dietary Restrictions? Yes Diabetic [email or web address] Information not available 03/16/2023 Sex: Unknown Functional Status Question Answer Note LastModified by [employer] Details LastModified Time Do you use any illicit or recreational drugs? No [email or web address] Information not available 03/16/2023 Do you or have you ever used any other forms of tobacco or nicotine? No Information not available 03/16/2023 What is your level of alcohol consumption? None [id number] Information not available 04/16/2022 Do you or have you ever used smokeless tobacco? Never used smokeless tobacco [id number] Information not available 04/16/2022 Do you or have you ever used e-cigarettes or vape? Never used electronic cigarettes [email or web address] Information not available 03/16/2023 What is your exercise level? None [id number] Information not available 04/16/2022 Mental Status None recorded. Family History Relationship Description Onset Age of this Age Resolved Age Notes LastModified by Organization Details LastModified Time Mother Hypertriglyc eridemia [id number] Not available 04/16/2022 00:42:05 Mother Cardiac pacemaker procedure [id number].700 [id number] Not available 04/16/2022 00:42:05 Mother Atrial fibrillation [id number].126 [id number] Not available 04/16/2022 00:42:05 Brother Hypertriglyc eridemia [id number].920 [id number] Not available 04/16/2022 00:42:05 Medical History Condition Response DIABETES, TYPE Y ANEMIA/BLOOD DISORDER Y HYPERTENSION Y HIGH CHOLESTEROL / HYPERLIPIDEMIA [...] Time SARS-COV-2 (COVID-19) vaccine, UNSPECIFIED 3 completed JAVIER Cheng, [facility] [employer] [facility] 08/06/2022 12:10:22 zoster, unspecified formulation 3 completed Nita Mckinnon LPN null, [employer] [facility] [employer] [facility] 08/06/2022 12:10:46 SARS-COV-2 (COVID-19) vaccine, UNSPECIFIED 2 completed Nita Mckinnon LPN null, [employer] [facility] [employer] [facility] 08/06/2022 14:22:44 zoster recombinant 3 completed JAVIER Cheng, [facility] [employer] [facility] 11/24/2022 16:18:21 influenza, unspecified formulation 3 completed JAVIER Cheng, [facility] [employer] [facility] 11/24/2022 16:18:36 Influenza, split virus, quadrivalent, preservative 1 completed Not Available [employer] 04/16/2022 00:51:57 Influenza, split virus, quadrivalent, preservative 7 completed Not Available [facility] 04/16/2022 00:51:57 Influenza, split virus, quadrivalent, PF 6 completed Not Available [facility] 04/16/2022 00:51:58 SARS-COV-2 (COVID-19) vaccine, UNSPECIFIED 1 completed Not Available [facility] 04/16/2022 00:51:58 COVID-19, mRNA, LNP-S, PF, 100 mcg/0.5mL dose or 50 mcg/0.25mL dose 1 completed Not Available [facility] 04/16/2022 00:51:58 Influenza, split virus, quadrivalent, preservative 0 completed Not Available [facility] 04/16/2022 00:51:58 Tdap 0 completed Not Available [facility] 04/16/2022 00:51:58 Influenza, split virus, trivalent, preservative 5 completed Not Available [facility] 04/16/2022 00:51:59 Past Encounters Encounter ID Performer Location Encounter Start Date Encounter Closed Date Diagnosis/Indication Diagnosis SNOMED-CT Code Diagnosis ICD10 Code Diagnosis Note [id number] JESSICA [facility] [facility] [place] [address] [place] [address] 04/18/2020 00:00:00 04/18/2020 21:13:32 [id number] JESSICA Garcia [facility] Primary Care [address] [place] [address] 04/20/2020 00:00:00 04/20/2020 17:51:54 [id number] Lakshmi Denton MD [facility] [place] [address] [place] [address] 04/24/2020 00:00:00 04/24/2020 17:32:49 [id number] S_[facility] ic[facility] Pulmonolo gy [place] [address] [place] [address] 05/23/2020 00:00:00 05/23/2020 19:18:42 [id number] Lakshmi Denton MD [facility] [place] [address] [place] [address] 08/10/2020 00:00:00 08/10/2020 15:16:00 [id number] Jyoti Hahn MD [facility] Primary [facility] [place] [address] [place] [address] 10/12/2020 00:00:00 10/12/2020 18:39:46 [id number] Jyoti Hahn MD [facility] [place] [address] [place] [address] 10/25/2020 00:00:00 10/26/2020 16:34:06 [id number] Jyoti Hahn MD [facility] [place] [address] [place] [address] 11/22/2020 00:00:00 11/22/2020 20:22:18 [id number] [facility] [place] [address] [place] [address] 12/13/2020 00:00:00 12/14/2020 10:19:13 [id number] Jyoti Hahn MD [facility] [place] [address] [place] [address] 03/29/2021 00:00:00 03/29/2021 14:04:58 [id number] JESSICA Garcia [facility] [place] [address] [place] [address] 09/04/2021 00:00:00 09/04/2021 10:45:48 [id number] JESSICA Garcia [facility] Primary [facility] [place] [address] [place] [address] 10/10/2021 00:00:00 10/10/2021 17:53:04 [id number] Jyoti Hahn MD [facility] Primary [facility] [place] [address] [place] [address] 12/11/2021 00:00:00 12/11/2021 17:57:34 [id number] Jyoti Hahn MD [facility] Care [facility] [address] [facility] [address] [place] [address] 03/19/2022 00:00:00 03/19/2022 10:41:24 [id number] JESSICA Garcia [facility] Care [address] [place] [address] 07/03/2022 11:43:21 07/03/2022 12:27:55 Hyperglycemia due to type 2 diabetes mellitus [id number] 37195 E11.65 Chronic, current status unknown.A1 C 8.3 (10/24/21)In sulin 50 units TID ACMetformi n ER 500mg dailyVicto za 1.8mg daily with mealsEncou raged pt to f/u with endocrinol ogy Menopausal symptom 08194 002 N95.1 Reviewed self-help strategies (dietary changes/ex ercise/acc upuncture/ etc.), herbal and other OTC therapies, hormonal options as well as other medication s used to treat common menopausal symptoms.W ill check hormone panel and plan to discuss treatment options in detail next visit. Rheumatoid arthritis 698 18587 M06.9 Chronic, not well controlled with current pain management regimen Pt not currently on any immunomodu lators. Failed methotrexa te. Will continue with pain meds pending pts next f/u with rheumatmagdaleno rascon, new referral generated. May need to consider tx with leflunomid e or hydroxychl orquine if pt unable to be seen by rheumatmagdaleno rascon soon.Santiago nue with hydrocodon e.Continue with pregabalin dosage.Serrato dicap placard form completed. Medication monitoring 39 5370578 Z51.81 Chronic/St ableContin ue to use hydrocodon e sparingly as directedPt denies any lending, selling, or borrowing of medication s. Reviewed controlled substance agreement requiremen ts. Refill given.[place] PDMP checked 317/23.Due for UDSRTO 3 months for routine med check and f/u appt. Hyperlipidemia 64677462 E78.5 Vitamin D deficiency 347 06308 E55.9 Obesity 173159835 E66.9 [id number] JESSICA Garcia [facility] Primary [facility] [place] [address] [facility] [address] [place] [address] 07/17/2022 09:42:11 07/17/2022 10:39:27 Hyperglycemia due to type 2 diabetes mellitus 2400319387 00515 E11.65 Chronic, not well controlled at this time, since pt not improving with Victoza, recommend change to Trulicity instead.A1 C 8.3 (10/24/21); 9.2 (07/03/22)I nsulin 50 units TID ACIncrease to Metformin ER 500mg-2 tabs BIDDiscont inue Victoza 1.8mg daily with meals; change to Trulicity 0.75mg weeklyEnco uraged pt to f/u with endocrinol ogy, has not been seen since 2020. Rheumatoid arthritis 698 48009 M06.9 Chronic, not well controlled with current [...] placard form completed last visit. Menopausal symptom 39289 002 N95.1 Reviewed self-help strategies (dietary changes/ex ercise/acc upuncture/ etc.), herbal and other OTC therapies, hormonal options as well as other medication s used to treat common menopausal symptoms. Pt encouraged to f/u with boat officer provider in the near future as well.Hormo ne panel results as follows:te stosterone -total 65.5 (wnl), free 1.19Estrog ens-91 (post-danita pausal)Pro lactin-5.5 (wnl)FSH-5 4.2 (post-danita pausal)SHB G-66.1 (wnl)LH-31 .9 (post-danita pausal) Medication monitoring 39 4094935 Z51.81 Chronic/St ableContin ue to use hydrocodon e sparingly as directedPt denies any lending, selling, or borrowing of medication s. Reviewed controlled substance agreement requiremen ts. Refill given.[place] PDMP checked 05/02/22UDS appropriat e (07/03/22)R TO 3 months for routine med check and f/u appt. Hyperlipidemia 07643295 E78.5 Chronic, stablehdl 39, trigs 328, non-hdl 132 (10/24/21)tr igs 329 (07/03/22)C ontinue Rosuvastat in 40mg twice weeklyNiac in 500mg daily (non-flush ing) Vitamin D deficiency 347 44241 E55.9 Chronic, stableVit D 32.0 (07/03/22)E ncouraged pt continue weekly D2 supplement and try to spend a few minutes outdoors daily (wearing sunscreen) . Tuberculos is screening 153957184 Z11.1 Needs updated TB screen prior to starting leflunomid e or hydroxychl oroquine. Body mass index 30+ - obesity 914084870 Z68.39 ChronicNot improved despite report of dieting/li [...] Try to keep daily calorie count btw 0432-2379 calories. Gave meal planning handout. No improvemen t with Victoza, recommend change to Trulicity. Cobalamin deficiency 190 642599 E53.8 New finding on labsB12 357 (07/03/22)S tart weekly B12 injections x 4 weeks, then go to monthly injections thereafter . Pt indicates she is comfortabl e giving herself the injections at home. Postmenopa usal bleeding 85215738 N95.0 ChronicBle eding likely d/t known fibroidsPt encouraged to work on getting blood sugars under control to qualify for surgery. Pts OB-Library Services Coordinator provider requires pts A1C to be less than 6.0 before pt can be considered for hyst. Patient in formed - test result 993906794 Z71.2 Reviewed lab results with patient. Discussed abnormal levels and treatment recommenda tions as above. [id number] Jyoti Hahn MD [facility] Primary Care [address] [place] [address] 07/21/2022 09:35:40 07/21/2022 10:14:08 Cobalamin deficiency 280063150 E53.8 Tuberculos is screening 721863138 Z11.1 [id number] Jyoti Hahn MD [facility] Primary Care [address] [place] [address] 09/19/2022 08:19:03 09/19/2022 10:34:15 Transition of care 4901811643 105 Z75.8 Hypokalemia 81277167 E87 .6 improved since holding lasixconti nue potassium 10 meq and hold lasixcheck labscall with lab results on need to increase daily potassium and trial lower dose lasix 20 mg 2-3 times per week to find what dosage is effective without electrolyt e disturbanc e [id number] Jyoti Hahn MD [facility] Primary Care [address] [place] [address] 12/16/2022 09:54:06 12/16/2022 13:04:16 Chronic sinusitis 46720467 J32.9 Chronic, recurrentP t declines ENT referral, [...] 20mg daily Edema of l ower extremity 046932123 R60.0 RecurrentD espite correction of potassium levels.Adv ised to elevate lower extremitie s, try not to keep legs dependent. Limit salt, pork, caffeine. Try otc compressio n socks. Work on appropriat e water intake. Take any diuretics as directed. [id number] Jyoti Hahn MD [facility] Primary Care [facility] [address] [facility] [address] [place] [address] 01/06/2023 08:55:57 01/06/2023 09:48:27 Dry eyes 866183628 H04.123 Chronic hypokalemia 1046 9003 E87.6 Cobalamin deficiency 190 477321 E53.8 Vitamin D deficiency 347 25047 E55.9 Hyperlipidemia 96051916 E78.5 Iron defic iency anemia 95380067 D50.9 Well contr olled type 2 diabetes mellitus 666433923 E11.9 [id number] Jyoti Hahn MD [facility] Primary Care [facility] [address] [facility] [address] [place] [address] 01/28/2023 09:53:17 01/28/2023 10:19:45 Headache 68033438 R51.9 R22.0 persistent headaches that are worseninga ssociated with visual disturbanc e and dizziness Iron deficiency 42168433 E61.1 restart pantoprazo letake iron dailyf/u in 6 weeks Acute sinusitis 16757729 J01.90 Acid reflux 124578476 K2 1.9 restart Rheumatoid arthritis 698 25623 M06.9 [id number] Jyoti Hahn MD [facility] Primary Care [facility] [address] [facility] [address] [place] [address] 03/16/2023 12:12:31 03/16/2023 12:50:55 Chronic pansinusitis 53952432 J32.4 ENT referralno yann on MRIdoxycyc line 100 mg po bid x 14 days Rheumatoid arthritis 698 18715 M06.9 needs new referralre fill givenPt understand s this medication has risk for abuse/depe ndence and agrees to take it only as prescribed and to guard from loss/theft [place] prescript[place] on monitoring website reviewed Type 2 tg betes mellitus without complication 507028039 E11.9 new referral given, previous endocrinol ogist has left area Asthma 448840262 J45.90 9 new referral given, previous pulmonolog ist has left the area Essential hypertension 32357578 I10 wants cardiology closer to home, new referral given Magnetic r esonance imaging of brain abnormal 853555080 R90.89 reviewed MRI and discussed having excellent control of htn, hyperlipid emia and diabetes for prevention neurology referral given Hypokalemia 40960601 E87 .6 repeat bmp monthly to monitor [id number] Jyoti Hahn MD [facility] Primary Care [address] [place] [address] 04/24/2023 08:32:52 04/24/2023 09:08:12 Transition of care 7447089600 105 Z75.8 Cellulitis 770806771 L03 .90 out of work until releasedel evate as much as possibledo xycycline 100 mg po bid x 14 daysf/u on to reassess Pneumonia 533967714 J18. 9 noted on cta chest on 04/10ha completed augmentinc ough improvedlu ng exam clear [id number] Jyoti Hahn MD [facility] Primary Care [address] [place] [address] 04/30/2023 17:10:43 04/30/2023 17:53:39 Cellulitis of lower limb 728508102 L03.119 out of work until released [id number] Jyoti Hahn MD [facility] Primary Care [address] [place] [address] 05/07/2023 17:11:46 05/07/2023 17:32:00 Cellulitis of lower limb 773207261 L03.119 improving but not yet resolvedou t of work until released [id number] Morgan Oakley MD [facility]_[address] [address] 05/25/2023 08:21:56 05/25/2023 09:15:49 Cellulitis of lower limb 873128294 L03.119 Finish out course of antibiotic sReturn if new or worsening symptoms Cellulitis 643339963 L03 .90 [id number] Jyoti Hahn MD [facility] Primary [facility] [place] [address] [facility] [address] [place] [address] 06/16/2023 11:09:27 06/16/2023 12:57:23 Vitamin D deficiency 05582247 E55.9 Renewal of prescription 905442858 Z76.0 Chronic back pain 616446 002 M54.9 refill given Rheumatoid arthritis 698 62949 M06.9 needs new referralre fill givenPt understand s this medication has risk for abuse/depe ndence and agrees to take it only as prescribed and to guard from loss/theft [place] prescripti on monitoring website reviewed update 06/16/23:wi ll establish with new pcp, refills givenkeeps some prednisone on hand prn Essential hypertension 97584582 I10 stablerefi lls given Gastroesop hageal reflux disease without esophagitis 615165791 K21.9 Type 2 tg betes mellitus without complication 554581618 E11.9 a1c 7.1on trulicity 3 mg sc qweekmetfo rmin ER 500 mg 2 po bid Edema of l ower extremity 946081330 R60.0 stable Hyperlipidemia 01215584 E78.5 stable Hypokalemia 79785139 E87 .6 Chronic sinusitis 250049 00 J32.9 stable, refill given Herpes labialis 4681677 B00.1 keeps refills on hand, no current outbreak Health Concerns Section Related Observation LastModified by Organization Detai ls LastModified Time None Recorded Concern Status LastModified by Organization Details LastModified Time None Recorded Advance Directives Directive None Recorded Payers Insurance Date Sequence Insurance Name Policy Number Policy Langston Covered Member ID Langston Member ID Guarantor Name 07/17/2024 1 [facility] - DOS ON OR AFTER 20 (MEDICAID REPLACEMENT - HMO) Regina Howell [id number] Regina Howell 05/20/2023 2 [place] [employer] [employer] Regina Howell [id number] Regina Howell Notes Date Note Type Note Provider Name and Address Organization Details Recorded Time 04/24/2023 text/html was inpatient 8 days, now out of hospital for 8 days, finished her abx 2 days after release. Redness in right lower leg is somewhat improved but not resolved. +pain and swelling. No fever. Jyoti Hahn MD [address], [place], [address], [employer] 05/13/2023 07:44:34 04/30/2023 text/html was inpatient 8 [...] chest congestion. No cough Jyoti Hahn MD [address], [place], [address], [employer] 05/17/2023 08:30:53 05/07/2023 text/html was inpatient 8 [...] is improving, no fever. Jyoti Hahn MD [address], [place], [address], [employer] 05/17/2023 10:02:23 05/25/2023 text/html She was admitted to the hospital on 04/06/23 for cellulitis to the RLE and was admitted for 9 days. She is currently on augmentin 875-125, finished today. She still has redness noted to her right bello, but its is much improved per patient. She has no other concerns today. JESSICA Pizano [address], [place], [address], [facility] [employer] [facility] 05/25/2023 08:44:59 06/16/2023 text/html was inpatient 8 [...] some refills and referrals. Jyoti Hahn MD [address] [place] [address], [place], [address], [facility] [employer] [facility] 06/24/2023 13:20:48 OBGyn Episode No OBEpisode recorded.
--- OUTSIDE RECORDS SUMMARY | 2024-08-29 14:16 | XMS_ITS | Data Portability ---
Author Organization [facility] Address [address] [place] [address] Care Team Providers Care Traveling Passenger Agent Name Role Phone CROW DIANE Primary Care Provider [phone] Assessment Encounter Date Assessment Date Assessment LastModified by Organization Details LastModified Time 06/25/2023 06/25/2023 Stop glimepiride. Stop the ibuprofen. Pt is to see an ENT specialist. [email or web address] Not available 06/25/2023 12:54:00 07/07/2024 07/07/2024 Treatment will proceed as below. [email or web address] Not available 07/11/2024 08:14:55 Plan of Treatment Reminders Order Date Submit Date Provider Last Modified By Organization Details Last Modified Time Details Appointments ANY 15 2024 01:30P M Crow Diane MD Not available Not available Not available Lab CMP, serum or plasma 2024 025 JUAN [facility], [address], [place], [address], 2024 08:25:39 magnes ium, serum or plasma 2024 025 JUAN [facility], [address], [place], [address], 2024 08:25:40 HbA1c (hemog lobin A1c), blood 2023 024 JUAN [facility], [address], [place], [address], 08/02/2023 02:22:45 CMP, serum or plasma 2023 024 JUAN [facility], [address], [place], [address], 08/02/2023 02:22:43 TSH, ultra- sensit edouard, serum 2023 024 [email or web address], [address], [place], [address], 09/03/2023 15:48:49 CBC w/ auto diff 2023 024 JUAN [facility], [address], [place], [address], 08/02/2023 02:22:44 magnes ium, serum or plasma 2023 024 [facility]AN[facility], [address], [place], [address], 08/02/2023 02:22:43 lipid panel, serum 2023 024 JUAN [facility], [address], [place], [address], 08/02/2023 02:22:42 vitami n D, 25-hyd howard, total, serum 2023 024 JUAN [facility], [address], [place], [address], 08/02/2023 02:22:45 hepati tis panel (A+B+C ), acute, serum 2014 015 sarah [facility], [address] [facility] [address], [address], [place], [address], 06/29/2023 12:22:15 ferrit in, serum or plasma 2014 015 aausttory [facility], [address], [address], [place], [address], 06/29/2023 12:22:15 iron + total iron-b inding capaci ty (TIBC) , serum 2014 015 aacohco [facility], [address], [address], [place], [address], 06/29/2023 12:22:15 vitami n B12 + folate , serum or blood 2014 015 sarah [facility], [address], [address], [place], [address], 06/29/2023 12:22:15 CMP, serum or plasma 2013 014 sarah [facility], [facility], [place], [address], 06/29/2023 12:22:15 microa lbumin /creat inine, mass ratio, urine 2013 014 sarah [facility], [address], [place], [address], 06/29/2023 12:22:15 lipid panel, serum 2013 014 sarah [facility], [address], [place], [address], 06/29/2023 12:22:15 CBC 2013 014 sarah [facility], [address], [place], [address], 06/29/2023 12:22:15 Referral orthop anoop cruzo n referr al 2024 025 delio Cramer MD, [address] [facility] , [address], [place], [address], 08/11/2024 09:27:17 Procedures None record ed. Surgeries None record ed. Imaging None record ed. Medication Orders trazod one 50 mg tablet 2024 025 [facility] #77932, [address] [place] [address], [id number], 07/07/2024 14:17:45 metfor min ER 500 mg tablet ,exten ded releas e 24 hr 2024 025 [facility] #53966, [address] [place] [address], [id number], 07/07/2024 14:18:13 Lantus Solost ar U-100 Insuli n 100 unit/m L (3 mL) subcut aneous pen 2024 025 [facility] #42641, [address] [place] [address], [id number], 07/07/2024 14:18:41 Trulic ity 3 mg/0.5 mL subcut aneous pen inject or 2024 025 [facility] #54497, [address] [place] [address], [id number], 07/07/2024 14:19:14 nystat in 100,00 0 unit/g bakari topica l cream 2024 025 [facility] #99158, [address] [place] [address], [id number], 07/12/2024 13:37:06 rosuva statin 40 mg tablet 2024 025 [facility] #50093, [address] [place] [address], [id number], 07/07/2024 14:17:06 Bactri m DS 800 mg-160 mg tablet 2024 025 [facility] #99562, [address] [place] [address], [id number], 07/19/2024 05:01:41 carved ilol 12.5 mg tablet 2024 025 [facility] #22870, [address] [place] [address], [id number], 07/07/2024 14:15:36 hydrox ychlor oquine 200 mg tablet 2024 025 [facility] #12225, [address] [place] [address], [id number], 07/07/2024 14:19:30 hydroc odone 7.5 mg-naga tamino phen 325 mg tablet 2024 025 [facility] #87257, [address] [place] [address], [id number], 07/15/2024 15:27:45 cetiri zine 10 mg tablet 2024 025 [facility] #48515, [address] [place] [address], [id number], 07/07/2024 14:16:34 cyanoc obalam in (vit B-12) 1,000 mcg/mL inject ion soluti on 2024 025 [facility] #74157, [address] [place] [address], [id number], 07/07/2024 14:21:01 omepra zole 20 mg capsul efabby yed releas e [email or web address] [place] [address] [facility], [address], [id number], 02/26/2024 17:12:26 escita lopram 10 mg tablet 2023 024 JUAN [facility] #29664, [address] [facility] [address] [place] [address], [id number], 06/25/2023 12:48:53 Celebr ex 100 mg capsul e 2023 024 [email or web address] [facility] #20829, [address] [facility] [address] [facility], [place], [place], [id number], 07/17/2023 10:05:12 amoxic illin 500 mg tablet 2014 015 [facility] [place], [address], 06/29/2023 12:22:15 ferrou s sulfat e 325 mg (65 mg iron) tablet 2014 015 [facility] [address], [address] [place], [address], 06/29/2023 12:22:15 cyclob enzapr ine 10 mg tablet [address] [facility] [address] [facility] [address] [place], [address], 06/30/2023 07:20:09 clonid ine HCl 0.1 mg tablet 2013 014 [facility] [address], [address] [place], [address], 07/07/2024 12:28:25 amlodi pine 10 mg tablet 2013 014 [facility] [address], [address] [place], [address], 07/07/2024 12:26:17 sertra line 50 mg tablet [address] [facility] [address] [facility] [address], [address] [place], [address], 06/30/2023 07:19:42 Patient TargetsNo targets recorded. Patient Instructions Encounter Date Encounter Id Patient Instructions Last Modified By Organization Details Last Modified Time 01/23/2014 [id number] Take meds as prescribed Healthy ADA diet/ exercise f/u with endo nsuthan Not available 01/23/2014 15:02:38 04/24/2014 [id number] Take meds as prescribed Healthy ADA diet/ exercise f/u with endo f/u in 2 month with lab nsuthan Not available 04/24/2014 15:10:19 06/25/2023 [id number] mammogram: about this test [email or web address] Not available 06/25/2023 13:02:18 insomnia: care instructions [email or web address] Not available 06/25/2023 12:55:57 learning about t ype 2 diabetes [email or web address] Not available 06/25/2023 12:37:16 type 2 diabetes: care instructions [email or web address] Not available 06/25/2023 12:37:16 gastroesophageal reflux disease (GERD): care instructions [email or web address] Not available 06/25/2023 12:34:56 controlling your asthma: care instructions [email or web address] Not available 06/25/2023 12:28:19 learning about asthma [email or web address] Not available 06/25/2023 12:28:19 high blood press ure: care instructions [email or web address] Not available 06/25/2023 12:31:27 learning about h igh blood pressure [email or web address] Not available 06/25/2023 12:31:27 Rheumatoid Arthr itis (RA): Care Instructions [email or web address] Not available 06/25/2023 12:43:32 07/07/2024 [id number] heart failure: c are instructions [email or web address] Not available 07/07/2024 13:18:13 learning about h eart failure [email or web address] Not available 07/07/2024 13:18:13 seasonal allergi es: care instructions [email or web address] Not available 07/07/2024 14:16:26 hypokalemia: car e instructions [email or web address] Not available 07/07/2024 13:31:05 Reason for Referral Orthopedic Surgeon Referral for Pain of left shoulder joint Referring Physician: Crow Dinae, Family Medicine, Encounter Date: 07/07/2024 Results Created Date Observation Date Name Description Value Unit Range Abnormal Flag Note LastModifiedBy Organization Detail LastModifiedTime 12/25/19 24 12/25/2023 COLOG UARD cologuard result Cancel led - Duplic ate Order not applic able Not Available [facility] (Cologuard Orders Only) [address], [place], [address], 12/25/2023 12:12:03 08/01/19 24 08/03/2023 LIPID PANEL , STAND MARTA cholesterol, total 132 mg/dL <200 normal Not Available [facility] [address] [address] [place], [address], 08/03/2023 03:36:13 08/01/19 24 08/03/2023 LIPID PANEL , STAND MARTA HDL cholesterol 39 mg/dL > or = 50 low Not Available [facility] [address] [address] [place], [address], 08/03/2023 03:36:13 08/01/19 24 08/03/2023 LIPID PANEL , STAND MARTA triglyceride s 212 mg/dL <150 high If a non-f astin g speci men was colle cted, consi maría repea t trigl yceri de testi ng on a fasti ng speci men if clini sreekanth indic ated. Geoffrey copeland et al. J. of Clin. Lipid ol. 2015; 9:129 -169. Not Available [facility] [address] [address] [place], [address], 08/03/2023 03:36:13 08/01/19 24 08/03/2023 LIPID PANEL [...] lated using the Enedina n-Hop kins calcu davidshelley n, which is a valid ated novel vik singh than the Fried audra equat ion in the estim ation of LDL-C . Enedina alvarado SS et al. IRVING. 2013; 310(1 9): 2061- 2068 (http ://ed ucati on.Qu estDi Traka. com/f aq/FA Q164) Not Available [facility] [address] [address] [place], [address], 08/03/2023 03:36:13 08/01/1908/03/2023 LIPID PANEL , STAND MARTA chol/HDLC ratio 3.4 (calc ) <5.0 normal Not Available [facility] [address] [address] [place], [address], 08/03/2023 03:36:13 08/01/19 24 08/03/2023 LIPID PANEL , STAND MARTA non HDL cholesterol 93 mg/dL _(luna c) <130 normal For patie nts with diabe nathalie plus 1 major ASCVD risk facto r, treat ing to a non-H DL-C goal of <100 mg/dL (LDL- C of <70 mg/dL ) is consi dered a thera peuti c optio n. Not Available [facility] [address] [address] [address], [place], [address], 08/03/2023 03:36:13 08/01/19 24 08/03/2023 MAGNE SIUM magnesium 1.9 mg/dL 1.5-2. 5 normal Not Available [facility] [address] [address] [place], [address], 08/03/2023 03:36:14 08/01/19 24 08/03/2023 COMPR EHENS EDOUARD METAB OLIC PANEL glucose 111 mg/dL 65-99 high Fasti ng refer ence inter juan For someo ne witho ut known diabe nathalie, a gluco se value betwe en 100 and 125 mg/dL is consi stent with predi abete s and shoul d be confi rmed with a follo w-up test. Not Available [address], [address], 08/03/2023 03:36:15 08/01/19 24 08/03/2023 COMPR EHENS EDOUARD METAB OLIC PANEL urea nitrogen (BUN) 19 mg/dL 7-25 normal Not Available [facility] [address], [address], 08/03/2023 03:36:15 08/01/19 24 08/03/2023 COMPR EHENS EDOUARD METAB OLIC PANEL creatinine 0.71 mg/dL 0.50-1 .03 normal Not Available [address], [address], 08/03/2023 03:36:15 08/01/19 24 08/03/2023 COMPR EHENS EDOUARD METAB OLIC PANEL eGFR 101 mL/mi n/1.7 3m2 > or = 60 normal Not Available [address], [address], 08/03/2023 03:36:15 08/01/19 24 08/03/2023 COMPR EHENS EDOUARD METAB OLIC PANEL BUN/creatini ne ratio SEE NOTE: (calc ) 6-22 Not Repor yann: BUN and Creat inine are withi n refer ence range . Not Available [address], [address], 08/03/2023 03:36:15 08/01/19 24 08/03/2023 COMPR EHENS EDOUARD METAB OLIC PANEL sodium 144 mmol/ L 135-14 6 normal Not Available [address], [address], 08/03/2023 03:36:15 08/01/19 24 08/03/2023 COMPR EHENS EDOUARD METAB OLIC PANEL potassium 4.0 mmol/ L 3.5-5. 3 normal Not Available [address], [address], 08/03/2023 03:36:15 08/01/19 24 08/03/2023 COMPR EHENS EDOUARD METAB OLIC PANEL chloride 106 mmol/ L 98-110 normal Not Available [address], [address], 08/03/2023 03:36:15 08/01/19 24 08/03/2023 COMPR EHENS EDOUARD METAB OLIC PANEL carbon dioxide 28 mmol/ L 20-32 normal Not Available [address], [address], 08/03/2023 03:36:15 08/01/19 24 08/03/2023 COMPR EHENS EDOUARD METAB OLIC PANEL calcium 9.1 mg/dL 8.6-10 .4 normal Not Available [address], [address], 08/03/2023 03:36:15 08/01/19 24 08/03/2023 COMPR EHENS EDOUARD METAB OLIC PANEL protein, total 6.4 g/dL 6.1-8. 1 normal Not Available [address], [address], 08/03/2023 03:36:15 08/01/19 24 08/03/2023 COMPR EHENS EDOUARD METAB OLIC PANEL albumin 3.9 g/dL 3.6-5. 1 normal Not Available [address], [address], 08/03/2023 03:36:15 08/01/19 24 08/03/2023 COMPR EHENS EDOUARD METAB OLIC PANEL globulin 2.5 g/dL_ (calc ) 1.9-3. 7 normal Not Available [address], [address], 08/03/2023 03:36:15 08/01/19 24 08/03/2023 COMPR EHENS EDOUARD METAB OLIC PANEL albumin/glob ulin ratio 1.6 (calc ) 1.0-2. 5 normal Not Available [address], [address], 08/03/2023 03:36:15 08/01/19 24 08/03/2023 COMPR EHENS EDOUARD METAB OLIC PANEL bilirubin, total 0.2 mg/dL 0.2-1. 2 normal Not Available [address], [address], 08/03/2023 03:36:15 08/01/19 24 08/03/2023 COMPR EHENS EDOUARD METAB OLIC PANEL alkaline phosphatase 69 U/L 37-153 normal Not Available [address], [address], 08/03/2023 03:36:15 08/01/19 24 08/03/2023 COMPR EHENS EDOUARD METAB OLIC PANEL AST 10 U/L 10-35 normal Not Available [address], [address], 08/03/2023 03:36:15 08/01/19 24 08/03/2023 COMPR EHENS EDOUARD METAB OLIC PANEL ALT 9 U/L 6-29 normal Not Available [address], [address], 08/03/2023 03:36:15 08/01/19 24 08/02/2023 CBC (INCL UDES DIFF/ PLT) white blood cell count 8.3 thous and/u L 3.8-10 .8 normal Not Available [address], [address], 08/02/2023 11:08:40 08/01/19 24 08/02/2023 CBC (INCL UDES DIFF/ PLT) red blood cell count 3.97 ismael on/uL 3.80-5 .10 normal Not Available [address], [address], 08/02/2023 11:08:40 08/01/19 24 08/02/2023 CBC (INCL UDES DIFF/ PLT) hemoglobin 11.1 g/dL 11.7-1 5.5 low Not Available [address], [address], 08/02/2023 11:08:40 08/01/19 24 08/02/2023 CBC (INCL UDES DIFF/ PLT) hematocrit 35.2 % 35.0-4 5.0 normal Not Available [address], [address], 08/02/2023 11:08:40 08/01/19 24 08/02/2023 CBC (INCL UDES DIFF/ PLT) MCV 88.7 fL 80.0-1 00.0 normal Not Available [address], [address], 08/02/2023 11:08:40 08/01/19 24 08/02/2023 CBC (INCL UDES DIFF/ PLT) MCH 28.0 pg 27.0-3 3.0 normal Not Available [facility] [address], [address], 08/02/2023 11:08:40 08/01/19 24 08/02/2023 CBC (INCL UDES DIFF/ PLT) MCHC 31.5 g/dL 32.0-3 6.0 low Not Available [address], [address], 08/02/2023 11:08:40 08/01/19 24 08/02/2023 CBC (INCL UDES DIFF/ PLT) RDW 13.2 % 11.0-1 5.0 normal Not Available [facility] [address], [address], 08/02/2023 11:08:40 08/01/19 24 08/02/2023 CBC (INCL UDES DIFF/ PLT) platelet count 145 thous and/u L 140-40 0 normal Not Available [address], [address], 08/02/2023 11:08:40 08/01/19 24 08/02/2023 CBC (INCL UDES DIFF/ PLT) MPV 10.8 fL 7.5-12 .5 normal Not Available [address], [address], 08/02/2023 11:08:40 08/01/19 24 08/02/2023 CBC (INCL UDES DIFF/ PLT) absolute neutrophils 5403 cells /uL 1500-7 800 normal Not Available [address], [address], 08/02/2023 11:08:40 08/01/19 24 08/02/2023 CBC (INCL UDES DIFF/ PLT) absolute lymphocytes 2158 cells /uL 850-39 00 normal Not Available [address], [address], 08/02/2023 11:08:40 08/01/19 24 08/02/2023 CBC (INCL UDES DIFF/ PLT) absolute monocytes 581 cells /uL 200-95 0 normal Not Available [address], [address], 08/02/2023 11:08:40 08/01/19 24 08/02/2023 CBC (INCL UDES DIFF/ PLT) absolute eosinophils 108 cells /uL 15-500 normal Not Available [address], [address], 08/02/2023 11:08:40 08/01/19 24 08/02/2023 CBC (INCL UDES DIFF/ PLT) absolute basophils 50 cells /uL 0-200 normal Not Available [address], [address], 08/02/2023 11:08:40 08/01/19 24 08/02/2023 CBC (INCL UDES DIFF/ PLT) neutrophils 65.1 % normal Not Available [address], [address], 08/02/2023 11:08:40 08/01/19 24 08/02/2023 CBC (INCL UDES DIFF/ PLT) lymphocytes 26.0 % normal Not Available [address], [address], 08/02/2023 11:08:40 08/01/19 24 08/02/2023 CBC (INCL UDES DIFF/ PLT) monocytes 7.0 % normal Not Available [address], [address], 08/02/2023 11:08:40 08/01/19 24 08/02/2023 CBC (INCL UDES DIFF/ PLT) eosinophils 1.3 % normal Not Available [address], [address], 08/02/2023 11:08:40 08/01/19 24 08/02/2023 CBC (INCL UDES DIFF/ PLT) basophils 0.6 % normal Not Available [address], [address], 08/02/2023 11:08:40 08/01/19 24 08/02/2023 TSH TSH 0.70 mIU/L normal Refer ence Range > or = 20 Years 0.40- 4.50 Pregn jabari Range s First trime ster 0.26- 2.66 Secon d trime ster 0.55- 2.73 Third trime ster 0.43- 2.91 Not Available [address], [address], 08/02/2023 09:02:54 08/01/19 24 08/02/2023 VITAM IN D,25- OH,TO MINA,I A vitamin D,25-oh,tota gracia,ia 82 NG/mL 30-100 normal Vitam in D [...] /MS is recom jana d: order code 10872 (saloni ents >2yrs ). See Note 1 Note 1 For addit ional infor jose fleming refer to http: //[facility] jeb Delgado stDia gnost ics.c om/fa q/FAQ 199 (This link is being provi ded for infor sea rizvi/ educdulce fagan purpo ses only. ) Not Available [facility] [address] [place], [address], 08/02/2023 09:02:54 08/01/19 24 08/02/2023 HEMOG LOBIN [...] valid ation testi ng condu cted at [facility] , the [facility] platf orm relat edouard to the [facility]bot t platf orm had an avera ge incre ase in HbA1c value of < or = 0.3%. This diffe rence is withi n accep yann varia bilit y estab lishe d by the [employer] hemog lobin Stand ardiz ation Progr am. Note that not all indiv idual s will have had a shift in their resul ts and direc t sandy rison s betwe en histo rical and curre nt resul ts for testi ng condu cted on diffe rent platf orms is not recom jana d. Not Available [facility] [address] [address] [place], [address], 08/02/2023 02:22:45 10/27/19 24 10/28/2023 LIPID PANEL , STAND MARTA cholesterol, total 136 mg/dL <200 normal Not Available [facility] [address] [address] [place], [address], 10/28/2023 12:00:15 10/27/19 24 10/28/2023 LIPID PANEL , STAND MARTA HDL cholesterol 56 mg/dL > or = 50 normal Not Available [facility] [address] [place], [address], 10/28/2023 12:00:15 10/27/19 24 10/28/2023 LIPID PANEL , STAND MARTA triglyceride s 143 mg/dL <150 normal Not Available [facility] [address] [address] [place], [address], 10/28/2023 12:00:15 10/27/19 24 10/28/2023 LIPID PANEL , STAND MARTA LDL-choleste rol [...] 310(1 9): 2061- 2068 (http ://ed ucati on.[employer]. [employer]/f aq/FA Q164) Not Available [facility] [address] [address] [place], [address], 10/28/2023 12:00:15 10/27/19 24 10/28/2023 LIPID PANEL , STAND MARTA chol/HDLC ratio 2.4 (calc ) <5.0 normal Not Available [facility] [address] [place], [address], 10/28/2023 12:00:15 10/27/1910/28/2023 LIPID PANEL , STAND MARTA non HDL cholesterol 80 mg/dL _(luna c) <130 normal For patie nts with diabe nathalie plus 1 major ASCVD risk facto r, treat ing to a non-H DL-C goal of <100 mg/dL (LDL- C of <70 mg/dL ) is darren beltran optio n. Not Available [facility] [address] [place], [address], 10/28/2023 12:00:15 10/27/19 24 10/28/2023 MAGNE SIUM magnesium 1.3 mg/dL 1.5-2. 5 low Not Available [facility] [address], [address], 10/28/2023 12:00:16 10/27/19 24 10/28/2023 COMPR EHENS EDOUARD METAB OLIC PANEL glucose 157 mg/dL 65-99 high Fasti ng refer ence inter juan For someo ne witho ut known diabe nathalie, a gluco se value >125 mg/dL indic ates that they may have diabe nathalie and this shoul d be confi rmed with a follo w-up test. Not Available [address], [address], 10/28/2023 12:00:17 10/27/1910/28/2023 COMPR EHENS EDOUARD METAB OLIC PANEL urea nitrogen (BUN) 17 mg/dL 7-25 normal Not Available [address], [address], 10/28/2023 12:00:17 10/27/19 24 10/28/2023 COMPR EHENS EDOUARD METAB OLIC PANEL creatinine 1.11 mg/dL 0.50-1 .03 high Not Available [address], [address], 10/28/2023 12:00:17 10/27/19 24 10/28/2023 COMPR EHENS EDOUARD METAB OLIC PANEL eGFR 59 mL/mi n/1.7 3m2 > or = 60 low Not Available [address], [address], 10/28/2023 12:00:17 10/27/1910/28/2023 COMPR EHENS EDOUARD METAB OLIC PANEL BUN/creatini ne ratio 15 (calc ) 6-22 normal Not Available [address], [address], 10/28/2023 12:00:17 09/10/10/28/2023 COMPR EHENS EDOUARD METAB OLIC PANEL sodium 143 mmol/ L 135-14 6 normal Not Available [address], [address], 10/28/2023 12:00:17 10/27/1910/28/2023 COMPR EHENS EDOUARD METAB OLIC PANEL potassium 3.1 mmol/ L 3.5-5. 3 low Not Available [address], [address], 10/28/2023 12:00:10/27/1910/28/2023 COMPR EHENS EDOUARD METAB OLIC PANEL chloride 101 mmol/ L 98-110 normal Not Available [address], [address], 10/28/2023 12:00:10/27/1910/28/2023 COMPR EHENS EDOUARD METAB OLIC PANEL carbon dioxide 29 mmol/ L 20-32 normal Not Available [address], [address], 10/28/2023 12:00:10/27/1910/28/2023 COMPR EHENS EDOUARD METAB OLIC PANEL calcium 9.3 mg/dL 8.6-10 .4 normal Not Available [address], [address], 10/28/2023 12:00:17 10/27/1910/28/2023 COMPR EHENS EDOUARD METAB OLIC PANEL protein, total 6.7 g/dL 6.1-8. 1 normal Not Available [address], [address], 10/28/2023 12:00:17 10/27/1910/28/2023 COMPR EHENS EDOUARD METAB OLIC PANEL albumin 3.9 g/dL 3.6-5. 1 normal Not Available [address], [address], 10/28/2023 12:00:17 10/27/19 24 10/28/2023 COMPR EHENS EDOUARD METAB OLIC PANEL globulin 2.8 g/dL_ (calc ) 1.9-3. 7 normal Not Available [address], [address], 10/28/2023 12:00:17 10/27/19 24 10/28/2023 COMPR EHENS EDOUARD METAB OLIC PANEL albumin/glob ulin ratio 1.4 (calc ) 1.0-2. 5 normal Not Available [address], [address], 10/28/2023 12:00:17 10/27/19 24 10/28/2023 COMPR EHENS EDOUARD METAB OLIC PANEL bilirubin, total 0.3 mg/dL 0.2-1. 2 normal Not Available [address], [address], 10/28/2023 12:00:17 10/27/19 24 10/28/2023 COMPR EHENS EDOUARD METAB OLIC PANEL alkaline phosphatase 72 U/L 37-153 normal Not Available [address], [address], 10/28/2023 12:00:17 10/27/19 24 10/28/2023 COMPR EHENS EDOUARD METAB OLIC PANEL AST 12 U/L 10-35 normal Not Available [address], [address], 10/28/2023 12:00:17 10/27/19 24 10/28/2023 COMPR EHENS EDOUARD METAB OLIC PANEL ALT 10 U/L 6-29 normal Not Available [address], [address], 10/28/2023 12:00:17 10/27/19 24 10/28/2023 CBC (INCL UDES DIFF/ PLT) white blood cell count 6.0 thous and/u L 3.8-10 .8 normal Not Available [address], [address], 10/28/2023 07:02:40 10/27/19 24 10/28/2023 CBC (INCL UDES DIFF/ PLT) red blood cell count 4.10 ismael on/uL 3.80-5 .10 normal Not Available [address], [address], 10/28/2023 07:02:40 10/27/19 24 10/28/2023 CBC (INCL UDES DIFF/ PLT) hemoglobin 11.6 g/dL 11.7-1 5.5 low Not Available [address], [address], 10/28/2023 07:02:40 10/27/19 24 10/28/2023 CBC (INCL UDES DIFF/ PLT) hematocrit 36.0 % 35.0-4 5.0 normal Not Available [address], [address], 10/28/2023 07:02:40 10/27/19 24 10/28/2023 CBC (INCL UDES DIFF/ PLT) MCV 87.8 fL 80.0-1 00.0 normal Not Available [address], [address], 10/28/2023 07:02:40 10/27/19 24 10/28/2023 CBC (INCL UDES DIFF/ PLT) MCH 28.3 pg 27.0-3 3.0 normal Not Available [address], [address], 10/28/2023 07:02:40 10/27/19 24 10/28/2023 CBC (INCL UDES DIFF/ PLT) MCHC 32.2 g/dL 32.0-3 6.0 normal Not Available [address], [address], 10/28/2023 07:02:40 10/27/19 24 10/28/2023 CBC (INCL UDES DIFF/ PLT) RDW 13.8 % 11.0-1 5.0 normal Not Available [address], [address], 10/28/2023 07:02:40 10/27/19 24 10/28/2023 CBC (INCL UDES DIFF/ PLT) platelet count 166 thous and/u L 140-40 0 normal Not Available [address], [address], 10/28/2023 07:02:40 10/27/19 24 10/28/2023 CBC (INCL UDES DIFF/ PLT) MPV 11.7 fL 7.5-12 .5 normal Not Available [address], [address], 10/28/2023 07:02:40 10/27/19 24 10/28/2023 CBC (INCL UDES DIFF/ PLT) absolute neutrophils 3294 cells /uL 1500-7 800 normal Not Available [address], [address], 10/28/2023 07:02:40 10/27/19 24 10/28/2023 CBC (INCL UDES DIFF/ PLT) absolute lymphocytes 2118 cells /uL 850-39 00 normal Not Available [address], [address], 10/28/2023 07:02:40 10/27/19 24 10/28/2023 CBC (INCL UDES DIFF/ PLT) absolute monocytes 468 cells /uL 200-95 0 normal Not Available [address], [address], 10/28/2023 07:02:40 10/27/19 24 10/28/2023 CBC (INCL UDES DIFF/ PLT) absolute eosinophils 78 cells /uL 15-500 normal Not Available [address], [address], 10/28/2023 07:02:40 10/27/19 24 10/28/2023 CBC (INCL UDES DIFF/ PLT) absolute basophils 42 cells /uL 0-200 normal Not Available [address], [address], 10/28/2023 07:02:40 10/27/19 24 10/28/2023 CBC (INCL UDES DIFF/ PLT) neutrophils 54.9 % normal Not Available [address], [address], 10/28/2023 07:02:40 10/27/19 24 10/28/2023 CBC (INCL UDES DIFF/ PLT) lymphocytes 35.3 % normal Not Available [address], [address], 10/28/2023 07:02:40 10/27/19 24 10/28/2023 CBC (INCL UDES DIFF/ PLT) monocytes 7.8 % normal Not Available [address], [address], 10/28/2023 07:02:40 10/27/19 24 10/28/2023 CBC (INCL UDES DIFF/ PLT) eosinophils 1.3 % normal Not Available [facility] [address], [address], 10/28/2023 07:02:40 10/27/19 24 10/28/2023 CBC (INCL UDES DIFF/ PLT) basophils 0.7 % normal Not Available [facility] [address], [address], 10/28/2023 07:02:40 10/27/19 24 10/28/2023 TSH TSH 0.65 mIU/L normal Refer ence Range > or = 20 Years 0.40- 4.50 Pregn jabari Range s First trime ster 0.26- 2.66 Secon d trime ster 0.55- 2.73 Third trime ster 0.43- 2.91 Not Available [facility] [address] [place], [address], 10/28/2023 08:33:35 10/27/1910/28/2023 VITAM IN D,25- OH,TO MINA,I A vitamin [...] /MS is recom jana d: order code 87952 (saloni ents >2yrs ). See Note 1 Note 1 For addit ional infor jose fleming refer to http: //ty Delgado stDia gnost ics.c om/fa q/FAQ 199 (This link is being provi ded for infor sea rizvi/ jennifer fagan purpo ses only. ) Not Available [facility] [address], [place], [address], 10/28/2023 08:33:36 10/27/1910/28/2023 HEMOG LOBIN A1C hemoglobin A1C 6.4 %_of_ [...] valid ation testi ng condu cted at [facility] , the [facility] or[facility] relat edouard to the [employer] plat[facility] orm had an avera ge incre ase in HbA1c value of < or = 0.3%. This diffe rence is withi n accep yann varia bilit y estab lishe d by the Natio nal Glyco hemog lobin Stand bony ation Progr am. Note that not all indiv idual s will have had a shift in their resul ts and direc t sandy rison s betwe en histo rical and curre nt resul ts for testi ng condu cted on diffe rent platf orms is not recom jana d. Not Available [facility] [address], [place], [address], 10/28/2023 05:49:48 11/21/19 24 11/22/2023 COMPR EHENS EDOUARD METAB OLIC PANEL glucose 199 mg/dL 65-99 high Fasti ng refer ence inter juan For someo ne witho ut known diabe nathalie, a gluco se value >125 mg/dL indic ates that they may have diabe nathalie and this shoul d be confi rmed with a follo w-up test. Not Available [facility] [place] [address] [place], [address], 11/22/2023 06:40:41 11/21/1911/22/2023 COMPR EHENS EDOUARD METAB OLIC PANEL urea nitrogen (BUN) 18 mg/dL 7-25 normal Not Available [place] [address] [place], [address], 11/22/2023 06:40:41 11/21/1911/22/2023 COMPR EHENS EDOUARD METAB OLIC PANEL creatinine 0.88 mg/dL 0.50-1 .03 normal Not Available [facility] [place] [address] [place], [address], 11/22/2023 06:40:41 11/21/1911/22/2023 COMPR EHENS EDOUARD METAB OLIC PANEL eGFR 78 mL/mi n/1.7 3m2 > or = 60 normal Not Available [facility] [facility] [place] [address] [place], [address], 11/22/2023 06:40:41 11/21/1911/22/2023 COMPR EHENS EDOUARD METAB OLIC PANEL BUN/creatini ne ratio SEE NOTE: (calc ) 6-22 Not Repor yann: BUN and Creat inine are withi n refer ence range . Not Available [employer] [facility] [place] [address] [place], [address], 11/22/2023 06:40:41 11/21/19 24 11/22/2023 COMPR EHENS EDOUARD METAB OLIC PANEL sodium 137 mmol/ L 135-14 6 normal Not Available [facility] [facility] [place] [address] [place], [address], 11/22/2023 06:40:41 11/21/1911/22/2023 COMPR EHENS EDOUARD METAB OLIC PANEL potassium 4.3 mmol/ L 3.5-5. 3 normal Not Available [facility] [facility] [place] [address] [place], [address], 11/22/2023 06:40:41 11/21/19 24 11/22/2023 COMPR EHENS EDOUARD METAB OLIC PANEL chloride 105 mmol/ L 98-110 normal Not Available [address], [address], 11/22/2023 06:40:41 11/21/19 24 11/22/2023 COMPR EHENS EDOUARD METAB OLIC PANEL carbon dioxide 27 mmol/ L 20-32 normal Not Available [address], [address], 11/22/2023 06:40:41 11/21/19 24 11/22/2023 COMPR EHENS EDOUARD METAB OLIC PANEL calcium 9.4 mg/dL 8.6-10 .4 normal Not Available [address], [address], 11/22/2023 06:40:41 11/21/19 24 11/22/2023 COMPR EHENS EDOUARD METAB OLIC PANEL protein, total 6.9 g/dL 6.1-8. 1 normal Not Available [address], [address], 11/22/2023 06:40:41 11/21/19 24 11/22/2023 COMPR EHENS EDOUARD METAB OLIC PANEL albumin 4.2 g/dL 3.6-5. 1 normal Not Available [address], [address], 11/22/2023 06:40:41 11/21/19 24 11/22/2023 COMPR EHENS EDOUARD METAB OLIC PANEL globulin 2.7 g/dL_ (calc ) 1.9-3. 7 normal Not Available [address], [address], 11/22/2023 06:40:41 11/21/19 24 11/22/2023 COMPR EHENS EDOUARD METAB OLIC PANEL albumin/glob ulin ratio 1.6 (calc ) 1.0-2. 5 normal Not Available [address], [address], 11/22/2023 06:40:41 11/21/19 24 11/22/2023 COMPR EHENS EDOUARD METAB OLIC PANEL bilirubin, total 0.3 mg/dL 0.2-1. 2 normal Not Available [address], [address], 11/22/2023 06:40:41 11/21/19 24 11/22/2023 COMPR EHENS EDOUARD METAB OLIC PANEL alkaline phosphatase 85 U/L 37-153 normal Not Available [facility] [place] [facility] [address], [address], 11/22/2023 06:40:41 11/21/19 24 11/22/2023 COMPR EHENS EDOUARD METAB OLIC PANEL AST 22 U/L 10-35 normal Not Available [address], [address], 11/22/2023 06:40:41 11/21/19 24 11/22/2023 COMPR EHENS EDOUARD METAB OLIC PANEL ALT 21 U/L 6-29 normal Not Available [address], [address], 11/22/2023 06:40:41 11/21/19 24 11/22/2023 CBC (INCL UDES DIFF/ PLT) white blood cell count 6.7 thous and/u L 3.8-10 .8 normal Not Available [address], [address], 11/22/2023 11:03:53 11/21/1911/22/2023 CBC (INCL UDES DIFF/ PLT) red blood cell count 4.19 ismael on/uL 3.80-5 .10 normal Not Available [address], [address], 11/22/2023 11:03:53 11/21/19 24 11/22/2023 CBC (INCL UDES DIFF/ PLT) hemoglobin 11.9 g/dL 11.7-1 5.5 normal Not Available [address], [address], 11/22/2023 11:03:53 11/21/1911/22/2023 CBC (INCL UDES DIFF/ PLT) hematocrit 37.3 % 35.0-4 5.0 normal Not Available [facility] [address], [address], 11/22/2023 11:03:53 11/21/19 24 11/22/2023 CBC (INCL UDES DIFF/ PLT) MCV 89.0 fL 80.0-1 00.0 normal Not Available [address], [address], 11/22/2023 11:03:53 11/21/19 24 11/22/2023 CBC (INCL UDES DIFF/ PLT) MCH 28.4 pg 27.0-3 3.0 normal Not Available [address], [address], 11/22/2023 11:03:53 11/21/19 24 11/22/2023 CBC (INCL UDES DIFF/ PLT) MCHC 31.9 g/dL 32.0-3 6.0 low For adult s, a sligh t decre ase in the calcu lated MCHC value (in the range of 30 to 32 g/dL) is most likel y not clini sreekanth taylori benson t; felecia er, it shoul d be inter prete d with cauti on in [facility] n with other red cell julianne eters and the patie nt's clini luna condi tion. Not Available [address], [address], 11/22/2023 11:03:53 10/05/20 24 11/22/2023 CBC (INCL UDES DIFF/ PLT) RDW 13.7 % 11.0-1 5.0 normal Not Available [address], [address], 11/22/2023 11:03:53 11/21/19 24 11/22/2023 CBC (INCL UDES DIFF/ PLT) platelet count 194 thous and/u L 140-40 0 normal Not Available [address], [address], 11/22/2023 11:03:53 11/21/1911/22/2023 CBC (INCL UDES DIFF/ PLT) MPV 11.4 fL 7.5-12 .5 normal Not Available [address], [address], 11/22/2023 11:03:53 11/21/1911/22/2023 CBC (INCL UDES DIFF/ PLT) absolute neutrophils 3363 cells /uL 1500-7 800 normal Not Available [address], [address], 11/22/2023 11:03:53 11/21/19 24 11/22/2023 CBC (INCL UDES DIFF/ PLT) absolute lymphocytes 2734 cells /uL 850-39 00 normal Not Available [address], [address], 11/22/2023 11:03:53 11/21/1911/22/2023 CBC (INCL UDES DIFF/ PLT) absolute monocytes 476 cells /uL 200-95 0 normal Not Available [address], [address], 11/22/2023 11:03:53 11/21/19 24 11/22/2023 CBC (INCL UDES DIFF/ PLT) absolute eosinophils 80 cells /uL 15-500 normal Not Available [address], [place], [address], 11/22/2023 11:03:53 11/21/1911/22/2023 CBC (INCL UDES DIFF/ PLT) absolute basophils 47 cells /uL 0-200 normal Not Available [facility] - [address], [address], 11/22/2023 11:03:53 11/21/1911/22/2023 CBC (INCL UDES DIFF/ PLT) neutrophils 50.2 % normal Not Available [facility] - [address], [address], 11/22/2023 11:03:53 11/21/1911/22/2023 CBC (INCL UDES DIFF/ PLT) lymphocytes 40.8 % normal Not Available [facility] [address], [address], 11/22/2023 11:03:53 11/21/1911/22/2023 CBC (INCL UDES DIFF/ PLT) monocytes 7.1 % normal Not Available [facility] - [address], [address], 11/22/2023 11:03:53 11/21/19 24 11/22/2023 CBC (INCL UDES DIFF/ PLT) eosinophils 1.2 % normal Not Available [facility] [address], [address], 11/22/2023 11:03:53 11/21/1911/22/2023 CBC (INCL UDES DIFF/ PLT) basophils 0.7 % normal Not Available [facility] [address], [address], 11/22/2023 11:03:53 11/21/19 24 11/22/2023 HEMOG LOBIN [...] diabe nathalie for child divya. Not Available [facility] [address] [place], [address], 11/22/2023 02:10:04 12/19/19 24 12/20/2023 IRON, TOTAL iron, total 47 mcg/d L 45-160 normal Not Available [employer] [address] [place], [address], 12/20/2023 08:43:29 12/19/19 24 12/20/2023 COMPR EHENS EDOUARD METAB OLIC PANEL glucose 147 mg/dL 65-99 high Fasti ng refer ence inter juan For someo ne witho ut known diabe nathalie, a gluco se value >125 mg/dL indic ates that they may have diabe nathalie and this shoul d be confi rmed with a follo w-up test. Not Available [facility] [place] [address] [place], [address], 12/20/2023 08:43:30 12/19/19 24 12/20/2023 COMPR EHENS EDOUARD METAB OLIC PANEL urea nitrogen (BUN) 19 mg/dL 7-25 normal Not Available [facility] [place] [address] [place], [address], 12/20/2023 08:43:30 12/19/19 24 12/20/2023 COMPR EHENS EDOUARD METAB OLIC PANEL creatinine 0.77 mg/dL 0.50-1 .03 normal Not Available [address], [address], 12/20/2023 08:43:30 12/19/19 24 12/20/2023 COMPR EHENS EDOUARD METAB OLIC PANEL eGFR 92 mL/mi n/1.7 3m2 > or = 60 normal Not Available [address], [address], 12/20/2023 08:43:30 12/19/19 24 12/20/2023 COMPR EHENS EDOUARD METAB OLIC PANEL BUN/creatini ne ratio SEE NOTE: (calc ) 6-22 Not Repor yann: BUN and Creat inine are withi n refer ence range . Not Available [address], [address], 12/20/2023 08:43:30 12/19/19 24 12/20/2023 COMPR EHENS EDOUARD METAB OLIC PANEL sodium 141 mmol/ L 135-14 6 normal Not Available [address], [address], 12/20/2023 08:43:30 12/19/19 24 12/20/2023 COMPR EHENS EDOUARD METAB OLIC PANEL potassium 4.4 mmol/ L 3.5-5. 3 normal Not Available [address], [address], 12/20/2023 08:43:30 12/19/19 24 12/20/2023 COMPR EHENS EDOUARD METAB OLIC PANEL chloride 102 mmol/ L 98-110 normal Not Available [address], [address], 12/20/2023 08:43:30 12/19/19 24 12/20/2023 COMPR EHENS EDOUARD METAB OLIC PANEL carbon dioxide 31 mmol/ L 20-32 normal Not Available [address], [address], 12/20/2023 08:43:30 12/19/19 24 12/20/2023 COMPR EHENS EDOUARD METAB OLIC PANEL calcium 9.0 mg/dL 8.6-10 .4 normal Not Available [address], [address], 12/20/2023 08:43:30 12/19/19 24 12/20/2023 COMPR EHENS EDOUARD METAB OLIC PANEL protein, total 6.4 g/dL 6.1-8. 1 normal Not Available [address], [address], 12/20/2023 08:43:30 12/19/19 24 12/20/2023 COMPR EHENS EDOUARD METAB OLIC PANEL albumin 3.7 g/dL 3.6-5. 1 normal Not Available [address], [address], 12/20/2023 08:43:30 12/19/19 24 12/20/2023 COMPR EHENS EDOUARD METAB OLIC PANEL globulin 2.7 g/dL_ (calc ) 1.9-3. 7 normal Not Available [address], [address], 12/20/2023 08:43:30 12/19/19 24 12/20/2023 COMPR EHENS EDOUARD METAB OLIC PANEL albumin/glob ulin ratio 1.4 (calc ) 1.0-2. 5 normal Not Available [address], [address], 12/20/2023 08:43:30 12/19/19 24 12/20/2023 COMPR EHENS EDOUARD METAB OLIC PANEL bilirubin, total 0.4 mg/dL 0.2-1. 2 normal Not Available [address], [address], 12/20/2023 08:43:30 12/19/19 24 12/20/2023 COMPR EHENS EDOUARD METAB OLIC PANEL alkaline phosphatase 78 U/L 37-153 normal Not Available [facility] [place] [employer] [address], [address], 12/20/2023 08:43:30 12/19/19 24 12/20/2023 COMPR EHENS EDOUARD METAB OLIC PANEL AST 15 U/L 10-35 normal Not Available [address], [address], 12/20/2023 08:43:30 12/19/19 24 12/20/2023 COMPR EHENS EDOUARD METAB OLIC PANEL ALT 12 U/L 6-29 normal Not Available [address], [address], 12/20/2023 08:43:30 12/19/19 24 12/20/2023 CBC (INCL UDES DIFF/ PLT) white blood cell count 6.5 thous and/u L 3.8-10 .8 normal Not Available [address], [address], 12/20/2023 08:43:31 12/19/19 24 12/20/2023 CBC (INCL UDES DIFF/ PLT) red blood cell count 4.25 ismael on/uL 3.80-5 .10 normal Not Available [address], [address], 12/20/2023 08:43:31 12/19/19 24 12/20/2023 CBC (INCL UDES DIFF/ PLT) hemoglobin 12.2 g/dL 11.7-1 5.5 normal Not Available [address], [address], 12/20/2023 08:43:31 12/19/19 24 12/20/2023 CBC (INCL UDES DIFF/ PLT) hematocrit 37.4 % 35.0-4 5.0 normal Not Available [address], [address], 12/20/2023 08:43:31 12/19/19 24 12/20/2023 CBC (INCL UDES DIFF/ PLT) MCV 88.0 fL 80.0-1 00.0 normal Not Available [address], [address], 12/20/2023 08:43:31 12/19/19 24 12/20/2023 CBC (INCL UDES DIFF/ PLT) MCH 28.7 pg 27.0-3 3.0 normal Not Available [address], [address], 12/20/2023 08:43:31 12/19/19 24 12/20/2023 CBC (INCL UDES DIFF/ PLT) MCHC 32.6 g/dL 32.0-3 6.0 normal For adult s, a sligh t decre ase in the calcu lated MCHC value (in the range of 30 to 32 g/dL) is most likel y not clini sreekanth taylori benson t; felecia er, it shoul d be inter prete d with cauti on in [facility] n with other red cell julianne eters and the patie nt's clini luna condi tion. Not Available [address], [address], 12/20/2023 08:43:31 12/19/19 24 12/20/2023 CBC (INCL UDES DIFF/ PLT) RDW 12.7 % 11.0-1 5.0 normal Not Available [address], [address], 12/20/2023 08:43:31 12/19/19 24 12/20/2023 CBC (INCL UDES DIFF/ PLT) platelet count 171 thous and/u L 140-40 0 normal Not Available [facility] [address], [address], 12/20/2023 08:43:31 12/19/19 24 12/20/2023 CBC (INCL UDES DIFF/ PLT) MPV 11.0 fL 7.5-12 .5 normal Not Available [address], [address], 12/20/2023 08:43:31 12/19/19 24 12/20/2023 CBC (INCL UDES DIFF/ PLT) absolute neutrophils 3471 cells /uL 1500-7 800 normal Not Available [address], [address], 12/20/2023 08:43:31 12/19/19 24 12/20/2023 CBC (INCL UDES DIFF/ PLT) absolute lymphocytes 2275 cells /uL 850-39 00 normal Not Available [address], [address], 12/20/2023 08:43:31 12/19/19 24 12/20/2023 CBC (INCL UDES DIFF/ PLT) absolute monocytes 592 cells /uL 200-95 0 normal Not Available [address], [address], 12/20/2023 08:43:31 12/19/19 24 12/20/2023 CBC (INCL UDES DIFF/ PLT) absolute eosinophils 111 cells /uL 15-500 normal Not Available [address], [address], 12/20/2023 08:43:31 12/19/19 24 12/20/2023 CBC (INCL UDES DIFF/ PLT) absolute basophils 52 cells /uL 0-200 normal Not Available [address], [address], 12/20/2023 08:43:31 12/19/19 24 12/20/2023 CBC (INCL UDES DIFF/ PLT) neutrophils 53.4 % normal Not Available [address], [address], 12/20/2023 08:43:31 12/19/19 24 12/20/2023 CBC (INCL UDES DIFF/ PLT) lymphocytes 35.0 % normal Not Available [address], [address], 12/20/2023 08:43:31 12/19/19 24 12/20/2023 CBC (INCL UDES DIFF/ PLT) monocytes 9.1 % normal Not Available [facility] [address], [address], 12/20/2023 08:43:31 12/19/19 24 12/20/2023 CBC (INCL UDES DIFF/ PLT) eosinophils 1.7 % normal Not Available [address], [address], 12/20/2023 08:43:31 12/19/19 24 12/20/2023 CBC (INCL UDES DIFF/ PLT) basophils 0.8 % normal Not Available [address], [address], 12/20/2023 08:43:31 07/08/19 25 2024 COMP. METAB OLIC PANEL (14) glucose 95 mg/dL 70-99 Not Available [facility] ([facility]) [address] [place], [address], 2024 08:25:39 07/08/19 25 2024 COMP. METAB OLIC PANEL (14) BUN 17 mg/dL 6-24 Not Available [facility] ([facility]) [address] [place], [address], 2024 08:25:39 07/08/19 25 2024 COMP. METAB OLIC PANEL (14) creatinine 0.97 mg/dL 0.57-1 .00 Not Available [facility] ([facility]) [address] [facility] [place], [address], 2024 08:25:39 07/08/19 25 2024 COMP. METAB OLIC PANEL (14) eGFR 69 mL/mi n/1.7 3 >59 Not Available [facility] ([facility]) [address] [facility] [place], [address], 2024 08:25:39 07/08/19 25 2024 COMP. METAB OLIC PANEL (14) BUN/creatini ne ratio 18 9-23 Not Available [facility] ([facility]) [address] [facility] [place], [address], 2024 08:25:39 07/08/19 25 2024 COMP. METAB OLIC PANEL (14) sodium 142 mmol/ L 134-14 4 Not Available [facility] ([facility]) [address] [facility] [place], [address], 2024 08:25:39 07/08/19 25 2024 COMP. METAB OLIC PANEL (14) potassium 4.5 mmol/ L 3.5-5. 2 Not Available [facility] ([facility]) [address] [facility] [place], [address], 2024 08:25:39 07/08/19 25 2024 COMP. METAB OLIC PANEL (14) chloride 106 mmol/ L 96-106 Not Available [facility] ([facility]) [address] [facility] [place], [address], 2024 08:25:39 07/08/19 25 2024 COMP. METAB OLIC PANEL (14) carbon dioxide, total 20 mmol/ L 20-29 Not Available [facility] ([facility]) [address] [place], [address], 2024 08:25:39 07/08/19 25 2024 COMP. METAB OLIC PANEL (14) calcium 9.8 mg/dL 8.7-10 .2 Not Available [facility] ([facility]) [address] [place], [address], 2024 08:25:39 07/08/19 25 2024 COMP. METAB OLIC PANEL (14) protein, total 6.1 g/dL 6.0-8. 5 Not Available [facility] ([facility]) [address] [facility] [place], [address], 2024 08:25:39 07/08/19 25 2024 COMP. METAB OLIC PANEL (14) albumin 3.9 g/dL 3.8-4. 9 Not Available [facility] ([facility]) [address] [facility] [place], [address], 2024 08:25:39 07/08/19 25 2024 COMP. METAB OLIC PANEL (14) globulin, total 2.2 g/dL 1.5-4. 5 Not Available [facility] ([facility]) [address] [facility] [place], [address], 2024 08:25:39 07/08/19 25 2024 COMP. METAB OLIC PANEL (14) bilirubin, total <0.2 mg/dL 0.0-1. 2 Not Available [facility] ([facility]) [address] [facility] [place], [address], 2024 08:25:39 07/08/19 25 2024 COMP. METAB OLIC PANEL (14) alkaline phosphatase 69 IU/L 44-121 Not Available [facility] ([facility]) [address] [facility] [place], [address], 2024 08:25:39 07/08/19 25 2024 COMP. METAB OLIC PANEL (14) AST (SGOT) 26 IU/L 0-40 Not Available [facility] ([facility]) [address] [place], [address], 2024 08:25:39 07/08/19 25 2024 COMP. METAB OLIC PANEL (14) ALT (SGPT) 26 IU/L 0-32 Not Available [facility] ([facility]) [address] [facility] [place], [address], 2024 08:25:39 07/08/19 25 2024 MAGNE SIUM magnesium 1.5 mg/dL 1.6-2. 3 below low normal Not Available [facility] ([facility]) [address] [place], [address], 2024 08:25:40 07/24/19 25 07/24/2024 MAGNE SIUM magnesium 1.5 mg/dL 1.5-2. 5 normal Not Available [facility] [facility] [address] [place], [address], 07/24/2024 06:53:32 07/24/19 25 07/24/2024 COMPR EHENS EDOUARD METAB OLIC PANEL glucose 147 mg/dL 65-99 high Fasti ng refer ence inter juan For someo ne witho ut known diabe nathalie, a gluco se value >125 mg/dL indic ates that they may have diabe nathalie and this shoul d be confi rmed with a follo w-up test. Not Available [facility] [address] [place] [address], [address], 07/24/2024 06:53:33 07/24/19 25 07/24/2024 COMPR EHENS EDOUARD METAB OLIC PANEL urea nitrogen (BUN) 16 mg/dL 7-25 normal Not Available [facility] - [address], [address], 07/24/2024 06:53:33 07/24/19 25 07/24/2024 COMPR EHENS EDOUARD METAB OLIC PANEL creatinine 0.97 mg/dL 0.50-1 .03 normal Not Available [address], [address], 07/24/2024 06:53:33 07/24/19 25 07/24/2024 COMPR EHENS EDOUARD METAB OLIC PANEL eGFR 69 mL/mi n/1.7 3m2 > or = 60 normal Not Available [facility] [address], [address], 07/24/2024 06:53:33 07/24/19 25 07/24/2024 COMPR EHENS EDOUARD METAB OLIC PANEL BUN/creatini ne ratio SEE NOTE: (calc ) 6-22 Not Repor yann: BUN and Creat inine are withi n refer ence range . Not Available [address], [address], 07/24/2024 06:53:33 07/24/19 25 07/24/2024 COMPR EHENS EDOUARD METAB OLIC PANEL sodium 142 mmol/ L 135-14 6 normal Not Available [facility] [address], [address], 07/24/2024 06:53:33 07/24/19 25 07/24/2024 COMPR EHENS EDOUARD METAB OLIC PANEL potassium 4.1 mmol/ L 3.5-5. 3 normal Not Available [facility] [address], [address], 07/24/2024 06:53:33 07/24/19 25 07/24/2024 COMPR EHENS EDOUARD METAB OLIC PANEL chloride 104 mmol/ L 98-110 normal Not Available [facility] [address], [address], 07/24/2024 06:53:33 07/24/19 25 07/24/2024 COMPR EHENS EDOUARD METAB OLIC PANEL carbon dioxide 28 mmol/ L 20-32 normal Not Available [address], [address], 07/24/2024 06:53:33 07/24/19 25 07/24/2024 COMPR EHENS EDOUARD METAB OLIC PANEL calcium 9.3 mg/dL 8.6-10 .4 normal Not Available [address], [address], 07/24/2024 06:53:33 07/24/19 25 07/24/2024 COMPR EHENS EDOUARD METAB OLIC PANEL protein, total 6.2 g/dL 6.1-8. 1 normal Not Available [address], [address], 07/24/2024 06:53:33 07/24/19 25 07/24/2024 COMPR EHENS EDOUARD METAB OLIC PANEL albumin 3.7 g/dL 3.6-5. 1 normal Not Available [address], [address], 07/24/2024 06:53:33 07/24/19 25 07/24/2024 COMPR EHENS EDOUARD METAB OLIC PANEL globulin 2.5 g/dL_ (calc ) 1.9-3. 7 normal Not Available [address], [address], 07/24/2024 06:53:33 07/24/19 25 07/24/2024 COMPR EHENS EDOUARD METAB OLIC PANEL albumin/glob ulin ratio 1.5 (calc ) 1.0-2. 5 normal Not Available [address], [address], 07/24/2024 06:53:33 07/24/19 25 07/24/2024 COMPR EHENS EDOUARD METAB OLIC PANEL bilirubin, total 0.3 mg/dL 0.2-1. 2 normal Not Available [address] [address] [place], [address], 07/24/2024 06:53:33 07/24/19 25 07/24/2024 COMPR EHENS EDOUARD METAB OLIC PANEL alkaline phosphatase 48 U/L 37-153 normal Not Available [address] [address] [place], [address], 07/24/2024 06:53:33 07/24/19 25 07/24/2024 COMPR EHENS EDOUARD METAB OLIC PANEL AST 14 U/L 10-35 normal Not Available [address] [place] [address] [place], [address], 07/24/2024 06:53:33 07/24/19 25 07/24/2024 COMPR EHENS EDOUARD METAB OLIC PANEL ALT 12 U/L 6-29 normal Not Available [address], [address], 07/24/2024 06:53:33 04/29/19 15 04/23/2014 imagi ng/di eulaliaos tic resul t No observ ation record ed. [email or web address] Not Available 2023 12:22:15 05/27/19 25 05/26/2024 XR, knee No observ ation record ed. [address] [facility], [place], [address], 05/26/2024 15:15:54 05/27/19 25 05/26/2024 XR, tibia + fibul a, 2 view No observ ation record ed. [address], [place], [address], 05/31/2024 12:53:25 06/14/19 25 06/12/2024 XR, chest , 2 view No observ ation record ed. [address], [address], 06/14/2024 14:59:29 06/22/19 25 06/20/2024 CT, abdom en + pelvi s, w/ contr ast No observ ation record ed. [address], [place], [address], 06/21/2024 13:41:26 06/24/19 25 06/23/2024 XR, chest No observ ation record ed. [address], [place], [address], 06/23/2024 13:48:31 06/28/1906/26/2024 CT, brain , w/o contr ast No observ ation record ed. [address], [place], [address], 06/28/2024 09:49:59 06/28/1906/27/2024 US, duple x, carot id arter y No observ ation record ed. [address], [place], [address], 06/28/2024 10:00:55 06/29/1906/28/2024 MRI, brain + brain stem, w/o contr ast No observ ation record ed. [address], [place], [address], 06/29/2024 11:26:58 Result Notes Documentation Provider Name and Address Organization Details Recorded Time Noninvasive Colorectal Cancer Dna + Occult Blood Screening, Ql, Stool : Negative OCTAVIO [place], [place] - [facility] 02/11/2024 16:33:46 Problems Name Problem SNOMED Code Status Onset Date Resolution Date Notes Provider Name and Address Organization Details Recorded Time Anemia 456074313 Active Zahida Hat[place] [facility] 4 12:22:11 Liver function tests outside reference range 543559069 Active Zahida [place]ill [place] [facility] 4 12:22:11 Acute sinusitis 30770465 Active Zahida [place] [facility] 4 12:22:11 Rheumatism 221103476 Active 2023 Tri Gonzales RN [place] [facility] 4 17:01:20 Rheumatoid arthritis 67488546 Active 2024 Tri Gonzales [place] [facility] 5 12:36:54 Essential hypertension 53895213 Active Zahida [place] [facility] 4 12:22:11 Mixed anxiety and depressive disorder 659868255 Active Zahida [place] [facility] 4 12:22:11 Diabetes mellitus 77140853 Active endo-D r.Sand hu Zahida [place] [facility] 4 12:22:11 Chronic back pain 809148832 Active Zahida Austill [facility], [place] - [facility] 4 12:22:11 Problem Notes None recorded. Medical Equipment None Reported. Allergies Allergen ID Allergen Name Allergen Category Reaction Reaction Severity Criticality Documentation Date Start Date Code Code System Note Provider Name and Address Organization Details Recorded Time 020719 atenolol medicatio n Not available Not available Not available 06/25/2023 1202 RxNorm PVC's Nina Servin [place], [place] [facility] 4 11:55:18 446285 Celebrex medicatio n Not available Not available Not available 08/18/2023 93665 7 RxNorm GI upset Tri Gonzales RN [place] [facility] 4 10:05:55 6522 atenolol medicatio n irregular heart rate Not available Not available 01/23/2014 1202 RxNorm Zahida Austill [place] [facility] 4 12:22:13 Medications Name Sig Start Date Stop Date [...] TABLET BY MOUTH THREE TIMES DAILY NEEDED 07/07 completed Hospital [facility] medicati on Not Available Not Available Not Available doxycycli ne hyclate 100 mg capsule TAKE 1 CAPSULE BY MOUTH TWICE DAILY FOR 14 DAYS 06/24 completed Not Available Not Available Not Available carvedilo l 12.5 mg tablet TAKE 1 TABLET BY MOUTH TWICE DAILY active Not Available Not Available No t Available nadolol 80 mg tablet TAKE 1 TABLET BY MOUTH THREE TIMES DAILY 07/07 completed Hospital took pt. off of it. Not Available Not Available Not Available clindamyc in HCl 300 mg capsule [...] TAKE ONE TABLET BY MOUTH ONCE DAILY 07/07 completed Not Available Not Available Not Available azithromy nathalia 250 mg tablet TAKE [...] TABLET BY MOUTH EVERY 8 HOURS NEEDED 07/07 completed Not Available Not Available Not Available meloxicam 15 mg tablet TAKE 1 TABLET BY MOUTH DAILY NEEDED FOR FOOT PAIN OR FLARE UP 03/18 completed Not Available Not Available Not Available lisinopri l 20 mg tablet TAKE 2 TABLETS BY MOUTH EVERY MORNING 07/25 completed Not Available Not Available Not Available prednison e 20 mg tablet TAKE 1 TABLET BY MOUTH EVERY DAY WITH FOOD 11/25 completed Not Available Not Available Not Available Lantus U-100 Insulin 100 unit/mL subcutane ous solution Inject 24 units every day by subcutan eous route at bedtime. 07/07 completed Not Available Not Available Not Available penicilli n V potassium 500 mg tablet TAKE 1 TABLET BY MOUTH THREE TIMES DAILY FOR 10 DAYS 11/25 completed Not Available Not Available Not Available potassium chloride ER 10 mEq tablet,ex tended release TAKE 1 TABLET BY MOUTH TWICE DAILY WITH MEALS 08/08 completed Not Available Not Available Not Available [...] completed Not Available Not Available Not Available lancets use to check blood glucose 3 times a day 2024 active Not Available Not Available Not Avai lable amoxicill in 875 mg tablet TAKE 1 TABLET BY MOUTH EVERY 12 HOURS FOR 7 DAYS 06/24 completed Not Available Not Available Not Available potassium chloride ER 20 mEq tablet,ex tended release(p art/cryst ) TAKE 2 TABLETS BY MOUTH TWICE DAILY active Not Available Not Available No t Available famotidin e 20 mg tablet TAKE 1 TABLET BY MOUTH TWICE DAILY NEEDED active Not Available Not Available No t Available prednisol one acetate 1 % eye drops,maico pension INSTILL 1 DROP IN LEFT EYE FOUR TIMES A DAY 07/07 completed Not Available Not Available Not Available magnesium oxide 400 mg (241.3 mg magnesium ) tablet TAKE 1 TABLET BY MOUTH EVERY DAY active Not Available Not Available No t Available methotrex ate sodium 2.5 mg tablet TAKE 6 TABLETS BY MOUTH EVERY WEEK 11/25 completed Not Available Not Available Not Available amlodipin e 10 mg tablet disconti nue 07/07 completed Not Available Not Available Not Available doxycycli ne monohydra te 100 mg capsule TAKE 1 CAPSULE BY MOUTH TWICE DAILY FOR 10 DAYS 07/07 completed Not Available Not Available Not Available hydrocodo ne 7.5 mg-acetam inophen 325 mg tablet TAKE ONE TABLET BY MOUTH EVERY DAY OR TWICE DAILY NEEDED active Not Available Not Available No t Available prednison e 2.5 mg tablet 06/29 completed Not Available Not Available Not Available cephalexi n 500 mg capsule Take 1 capsule 4 times a day by oral route for 14 days. 08/29 completed Not Available Not Available Not Available [...] completed Not Available Not Available Not Available nystatin 100,000 unit/gram topical cream APPLY TOPICALL Y TO THE AFFECTED AREA TWICE DAILY FOR 2 TO 4 WEEKS active Not Available Not Available No t Available fluoromet holone 0.1 % eye drops,maico pension SHAKE LIQUID AND INSTILL 1 DROP IN BOTH EYES TWICE DAILY FOR 2 WEEKS 07/07 completed Not Available Not Available Not Available omeprazol e 20 mg capsule,d elayed release 2024 active Not Available Not Available Not Avai lable folic acid 1 mg tablet TAKE 1 TABLET BY MOUTH EVERY DAY 07/07 completed Not Available Not Available Not Available hydrochlo rothiazid e 25 mg tablet TAKE 1 TABLET BY MOUTH EVERY MORNING active Not Available Not Available No t Available furosemid e 20 mg tablet TAKE 1 TABLET BY MOUTH EVERY DAY 07/07 completed Not Available Not Available Not Available ergocalci ferol (vitamin D2) 1,250 mcg (50,000 unit) capsule TAKE 1 CAPSULE BY MOUTH ONCE WEEKLY ON THURSDAY active Not Available Not Available No t Available Novolog U-100 Insulin aspart 100 unit/mL subcutane ous solution 07/07 completed Not Available Not Available Not Available hydroxych loroquine 200 mg tablet Take 1 tablet twice a day by oral route for 30 days. 2024 active Not Available Not Available Not Avai lable lovastati n 20 mg tablet TAKE ONE [...] stomach Not Available Not Available Not Available lisinopri l 40 mg tablet TAKE 1 TABLET BY MOUTH EVERY DAY active Not Available Not Available No t Available ondansetr on 4 mg disintegr ating [...] TAKE 2 TABLETS BY MOUTH TWICE DAILY 2024 active Not Available Not Available Not Avai lable sertralin e 50 mg tablet TAKE ONE [...] FOR UTI. START THE MORNING OF 07/01 completed Not Available Not Available Not Available amoxicill in 500 mg-potass ium clavulana te 125 mg tablet TAKE 1 TABLET BY MOUTH THREE TIMES DAILY 11/17 completed Not Available Not Available Not Available esomepraz ole magnesium 20 mg capsule,d elayed release Take 1 capsule every day by oral route for 30 days. 02/25 completed Not Available Not Available Not Available Bactrim DS 800 mg-160 mg tablet Take 1 tablet every 12 hours by oral route for 5 days. 07/19 completed Not Available Not Available Not Available [...] UNITS SUBCUTAN EOUSLY THREE TIMES A DAY 07/07 completed Not Available Not Available Not Available cyclobenz aprine 5 mg tablet TAKE 1 TABLET BY MOUTH THREE TIMES DAILY NEEDED active Not Available Not Available No t Available cyclospor ine 0.05 % eye drops in a dropperet te INSTILL 1 DROP INTO BOTH EYES TWICE DAILY 07/07 completed Not Available Not Available Not Available rosuvasta tin 40 mg tablet TAKE [...] a day as needed for congesti on 07/07 completed Not Available Not Available Not Available Prima SolutionsTouch Ultra2 Meter kit use as directed to check blood glucose 2023 active Not Available Not Available Not Avai lable metformin ER 500 mg 24 hr tablet,ex tended release (gastric retention ) TAKE 2 TABLETS BY MOUTH TWICE DAILY BEFORE MEALS active Not Available Not Available No t Available Advair HFA 230 mcg-21 mcg/actua tion [...] Not Available Not Available No t Available tranexami c acid 650 mg tablet TAKE 2 TABLETS BY MOUTH THREE TIMES DAILY 07/07 completed Not Available Not Available Not Available Accu-Chek FastClix Lancing Device active Not Available Not Available Not Available icosapent ethyl 1 gram capsule TAKE 2 CAPSULES BY MOUTH TWICE DAILY BEFORE MEALS 07/07 completed Not Available Not Available Not Available Victoza [...] ER 20 mEq tablet,ex tended release Take 2 tablets twice a day by oral route for 90 days. 2024 active Not Available Not Available Not Avai lable Trulicity 0.75 mg/0.5 mL subcutane ous pen [...] Not Available Not Available No t Available Pradeep Mejía U-100 Insulin 100 unit/mL (3 mL) subcutane ous ADMINIST ER 24 UNITS UNDER THE SKIN EVERY EVENING active Not Available Not Available No t [...] BEFORE EACH EPISODE OF INTERCOU RSE DIRECTED 05/22 /2025 completed Not Available Not Available Not Available [...] Not Available Not Available No t Available [facility] COVID-19 Antigen Rapid Home Test kit USE NEEDED 07/07 completed Not Available Not Available Not Available Acid Continuity Reader (lansopra zole) 15 mg capsule,d elayed release Take 1 capsule every day by oral route for 30 days. 07/07 completed Not Available Not Available Not Available Contour Plus Test Strip USE DIRECTED THREE TIMES DAILY active Not Available Not Available No t Available Contour Plus Blue Meter USE DIRECTED TO CHECK BLOOD SUGAR 07/07 completed Not Available Not Available Not Available Vitals Date Recorded Respiratory rate Oxygen saturation Oxygen saturation in Arterial blood by Pulse oximetry Body weight Heart rate Body mass index (BMI) Body height Body temperature Systolic And Diastolic Provider Name and Address Organization Details Last Updated DateTime 5 12 /min 100 % 100 % 57362.1 99324 g 88 /min 35.9 kg/m2 165.1 cm 98.3 [degF] 120/74 mm[Hg] Zahida Daley [facility] 4 12:22:11 Date Recorded Body height Body mass index (BMI) Body weight Respiratory rate Body temperature Oxygen saturation Oxygen saturation in Arterial blood by Pulse oximetry Heart rate Systolic And Diastolic Provider Name and Address Organization Details Last Updated DateTime 4 165.1 cm 37.6 kg/m2 456496. 58 g 16 /min 98.3 [degF] 99 % 99 % 84 /min 115/79 mm[Hg] Nina Servin MA [facility] 4 12:06:27 Date Recorded Body height Oxygen saturation Oxygen saturation in Arterial blood by Pulse oximetry Heart rate Respiratory rate Body temperature Systolic And Diastolic Provider Name and Address Organization Details Last Updated DateTime 5 165.1 cm 97 % 97 % 83 /min 16 /min 97.1 [degF] 121/77 mm[Hg] Radha Robert MA [facility] 5 12:20:43 Date Recorded Respiratory rate Body weight Heart rate Body mass index (BMI) Body height Body temperature Systolic And Diastolic Provider Name and Address Organization Details Last Updated DateTime 4 16 /min 22394.9 66789 g 86 /min 36.4 kg/m2 165.1 cm 98.4 [degF] 124/82 mm[Hg] Zahida Daley [facility] 4 12:22:11 Social History Question Answer Notes LastModified by Organizat ion Details LastModified Time Tobacco Smoking Status Former Smoker quit in 1999 Nina Servin MA [facility] 06/25/2023 12:00:23 Do You Have An Advance Directive? No Information not available 06/25/2023 Are You Blind [...] No Information not available 06/25/2023 Are You Deaf Or Do You Have Serious Difficulty Hearing? No Information not available 06/25/2023 What Type Of Diet Are You Following? REGULAR Information not available 06/25/2023 Are There Any Guns Present In Your Home? Yes Information not available 06/25/2023 What Was The Date Of Your Most Recent Tobacco Screening? 07/07/2024 Information not available 07/07/2024 How Many Children Do You Have? 2 [...] Information no t available 06/25/2023 Do You Use Sunscreen Routinely? No Information not available 06/25/2023 Has Tobacco Cessation Counseling Been Provided? No Information not available 06/25/2023 On What Date Was Tobacco Cessation Counseling Provided? 07/07/2024 Information not available 07/07/2024 Sex: Female Functional Status Question Answer Note LastModified by Organizat ion Details LastModified Time Do you use any illicit or recreational drugs? No Information not available 06/25/2023 Do you or have you ever used any other forms of tobacco or nicotine? No Information not available 06/25/2023 What is your level of alcohol consumption? None Information not available 06/25/2023 Are you currently employed? Yes Information not available 06/25/2023 Are you able to care for yourself? Yes Information n ot available 06/25/2023 What is your occupation? jadyn [employer] Information not available 06/25/2023 What is your exercise level? None Information not available 06/25/2023 Mental Status Question Answer Note LastModified by Organization D etails LastModified Time Do you feel stressed (tense, restless, nervous, or anxious, or unable to sleep at night)? [id number] Information not available 06/25/2023 Family History Relationship Description Onset Age of this Age Resolved Age Notes LastModified by Organization Details LastModified Time Mother Asthma [email or web address] Not available 0 06/29/2023 12:22:11 Mother Hypertensive disorder [email or web address] Not available 2023 12:22:11 Mother Atrial fibrillation [email or web address] Not available 12:22:11 Mother Procedure on heart valve [email or web address] Not available 10/2023 11:58:52 Notes:Pt. took in office on 07/07/24 Medical History Condition Response Coronary Artery Disease Y Other N Atrial Fibrillation N High Blood Pressure Y Thyroid Problems N Kidney or Bladder Problems N GI Problems N Depression N COPD N Blood Clots N Eating Disorder N Skin Problems N Anemia Y Heart Attack ([place]) N Diabetes Y Anxiety Disorder N Muscle, Joint, or Bone Problems Y Seizures/Epilepsy N Arthritis Y Acid Reflux (GERD) Y Cancer N Stroke N Asthma N Allergies N ADHD N Substance Abuse N High Cholesterol Y Hepatitis N Liver Disease N Schizophrenia N Headaches Y Osteoporosis N Heart Failure N Gynecological History Statement/Question Response Current Control Method Menopause LMP Approximate Obstetrics History GPAL:G 3 P 0 2 1 1 Type Value Induced 1 Premature 2 Living 1 Total 3 Immunizations Vaccine Type Date Status Note Provider Nam e and Address Organization Details Recorded Time Influenza, split virus, quadrivalent, preservative 7 completed OCTAVIO [place], [place] [facility] 06/25/2023 11:57:02 Influenza, MDCK, quadrivalent, PF 2 completed [place]AV[place] [facility] 06/25/2023 11:57:02 Influenza, recombinant, quadrivalent, PF 3 completed [place]AV[place] [facility] 06/25/2023 11:57:02 zoster recombinant 3 completed [place]AV[place] [facility] 06/25/2023 11:57:02 zoster recombinant 3 completed [place] [facility] 06/25/2023 11:57:02 COVID-19, mRNA, LNP-S, PF, 30 mcg/0.3 mL dose 1 completed [place]AV[place] [facility] 06/25/2023 11:57:02 COVID-19, mRNA, LNP-S, PF, 30 mcg/0.3 mL dose 1 completed [place]AV[place] [facility] 06/25/2023 11:57:02 COVID-19, mRNA, LNP-S, PF, 30 mcg/0.3 mL dose, syed-sucrose 2 completed Nina Servin, [facility] [facility] 06/25/2023 11:57:02 COVID-19, mRNA, LNP-S, bivalent, PF, 50 mcg/0.5 mL or 25mcg/0.25 mL dose 3 completed Nina Servin, [place], [place] [facility] 06/25/2023 11:57:02 [...] SNOMED-CT Code Diagnosis ICD10 Code Diagnosis Note [id number] MD Arsenio Kamara (Adult Med) [address] [place] [address] 01/23/2014 13:59:59 01/23/2014 15:00:09 Essential hypertension 87775488 continue same Mixed anxi ety and depressive disorder 153475607 Fair control due to noncomplia nt with med Restart Sertraline Diabetes mellitus 18559549 As per endo Will give Lantus and Novolog sample due to financial problem to buy meds Chronic back pain 496894737 [id number] MD Arsenio Kamara (Adult Med) [address] [place] [address] 04/24/2014 13:51:59 04/24/2014 15:34:43 Anemia 366830206 due to heavy bleeding-p t to see [facility] records showed Hb-8.6 check iron panel ok to take Ferrous sulfate daily Liver func tion tests outside reference range 643161667 ALT -53, AST-104--- possibly fatty liver( pt denied alcohol use ) consider us liver in future Acute sinusitis 28684826 [id number] MD Jf Kyle [address] [place] [address] 06/25/2023 11:25:39 06/30/2023 15:15:30 Asthma 293352154 J45.[address] Abdul at [facility] ess ential hypertension 0832863 I10 on amlodipine and clonidine and nadolol Gastroesop hageal reflux disease 865371777 K21.9 Type 2 tg betes mellitus 38031820 E11.9 pt will be followed by Dr. 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 Z76.89 Muscle tension pain 2790 14416 M79.10 on soma Screening for malignant neoplasm of colon 053081026 Z12.11 pt had a recent cologuard done--it was negative Screening mammography 24 923272 Z12.31 UTD [id number] MD Jf Kyle [address] [place] [address] 07/07/2024 12:02:50 07/12/2024 10:17:10 Mycosis 0142866 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 499450067 Z99.89 Congestive heart failure 96145710 I50.9 pt will be seeing a cardiologi st associated with [facility] Pain of le ft shoulder joint 3973200658 4028069 M25.512 Site-speci fic infective disorders of skin 820366235 L08.9 Hypokalemia 61510030 E87 .6 Seasonal allergy 3367358 04 J30.2 Dyslipidemia 856323376 E 78.5 Primary insomnia 4972438 F51.01 Type 2 tg betes mellitus 81705433 E11.9 Z79.4 Rheumatoid arthritis 698 62523 M06.9 Cobalamin deficiency 190 558921 E53.8 Health Concerns Section Related Observation LastModified by Organization Detai ls LastModified Time None Recorded Concern Status LastModified by Organization Details LastModified Time None Recorded Advance Directives Directive N: Payers Insurance Date Sequence Insurance Name Policy Number Policy Langston Covered Member ID Langston Member ID Guarantor Name 07/05/2024 1 [facility] - DOS ON OR AFTER 20 (MEDICAID REPLACEMENT - HMO) Regina Howell [id number] Regina Howell 06/29/2023 SLIDING FEE SCHEDULE - DISCOUNT Regina Howell 07/04/2024 1 [id number] Regina Hodges [id number] Regina Howell 08/05/2024 1 [facility] - DOS ON OR AFTER 20 (MEDICAID REPLACEMENT - HMO) Regina Howell [id number] Regina Howell 08/05/2024 1 [place] [facility] OF PUBLIC AID Regina Howell [id number] Regina Howell Notes Date Note Type Note Provider Name and Address Organization Details Recorded Time 06/25/2023 text/html Pt presents in o rder to become established. Previous PCP has moved out of the area. No acute issues today. Crow Diane MD Attn: [address] [place], [address], [place] 06/30/2023 07:23:11 07/07/2024 text/html Pt presents afte r a recent hospitalization at [facility], now with new dx of CHF. She is presently staying with her mother in [place]. She is requesting a decreased in her hydrocodone, now down to 30 pills/month! Crow Diane MD Attn: [address] [place], [address], [place] 07/11/2024 08:16:03 OBGyn Episode Ob Episode Information Episode Created Date Number of Fetuses Patient Bloodtype Patient rh Status Prepregnancy Weight lbs Domestic Partner Domestic Partner Phone Father Name Senior It Business Analyst Status 06/25/19 24 1 CLOSED Fetus Data First Name Last Name Admitted to NICU Weight (g) Sex Living Outcome Pediatric Complications Fetus ID Race Codes Race Delivery Type [id number] Benji Calculation Initial Benji Date Initial Exam [...] Domestic Partner Domestic Partner Phone Father Name Senior It Business Analyst Status 06/25/19 24 1 CLOSED Fetus Data First Name Last Name Admitted to NICU Weight (g) Sex Living Outcome Pediatric Complications Fetus ID Race Codes Race Delivery Type [id number] Benji Calculation Initial Benji Date Initial Exam [...]
--- OUTSIDE RECORDS SUMMARY | 2024-08-29 14:16 | XMS_ITS | Encounter Summary ---
Author Organization [facility] Healthcare Address [facility] [place] [address] Care Team Providers Care Conveyor Console Operator Name Role Phone Crow Perry MD Primary Care Provider [phone] Reason for Visit * Reason Comments Abscess Pt c/o abscess on bu ttocks, leg weakness and burning that started 4 days ago, back pain Encounter Details Date Type Department Care Team (Late st Contact Info) Description 08/29/2024 12:30 PM CDT Office Visit [facility] Medical Group Convenient Care at [address] [address] Kimberlee Preciado NP [address] [place] [address] Bilateral leg weakness (Primary Dx); Sacral wound, initial encounter Social History Tobacco Use Types Packs/Day Years Used Date Smoking Tobacco: Former Cigarettes Smokeless Tobacco: Never Alcohol Use Standard Drinks/Week Comments No 0 (1 standard drink = 0.6 oz pur e alcohol) Comments Unknown Sex and Gender Information Value Date Recorded Sex Assigned at Not on file 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 Patient reports difficulty rising from sitting position. No falls or trauma. Patient is now having difficulty ambulating. Concern for tunneling of wound versus other causes for sudden onset bilateral leg weakness. documented in this encounter Ordered Prescriptions Prescription Sig Dispense Quantity Refills Last Filled Start Date End Date mupirocin (BACTROBAN) 2 % ointmentIndication s:Sacral wound, initial encounter Apply topically 2 (two) times a day 22 g 08/29/2024 documented in this encounter Plan of Treatment Not on file documented as of this encounter Visit Diagnoses Diagnosis Bilateral leg weakness- Primary Muscle weakness (generalized) Sacral wound, initial encounter documented in this encounter Historical Medications * This list may reflect changes made after this encounter. HYDROcodone-acet aminophen (NORCO) 7.5-325 mg per tablet TAKE ONE TABLET BY MOUTH EVERY DAY OR TWICE DAILY NEEDED 08/18/2024 TRUEplus Pen Needle 32 gauge x 5/32 needle USE TO INJECT WITH INSULIN DIRECTED 3 WITH SHORT ACTING INSULIN AND 1 WITH BASAL INSULIN 07/04/2024 nystatin cream APPLY TOPICALLY TO THE AFFECTED AREA TWICE DAILY FOR 2 TO 4 WEEKS Microlet Lancet misc USE DIRECTED THREE TIMES DAILY 07/01/2024 Advair HFA 230-21 mcg/actuation inhaler INHALE 2 PUFFS BY MOUTH EVERY 12 HOURS 08/10/2024 cyanocobalamin (Vitamin B-12) 1,000 mcg/mL injection ADMINISTER 1 ML UNDER THE SKIN EVERY MONTH 07/07/2024 cephalexin (KEFLEX) 500 mg capsule TAKE 1 CAPSULE BY MOUTH FOUR TIMES DAILY FOR 14 DAYS 05/07/2023 celecoxib (CeleBREX) 100 mg capsule carisoprodoL (SOMA) 350 mg tablet Contour Plus Blue Meter misc USE DIRECTED TO CHECK BLOOD SUGAR 07/05/2024 Contour Plus Test Strip strip USE DIRECTED THREE TIMES DAILY 07/17/2024 added in this encounter Care Teams Conveyor Console Operator Relationship Specialty Start Date End Date Crow Perry MD [address] [place] [address] PCP - General Family Medicine 08/11/24 documented as of this encounter
--- OUTSIDE RECORDS SUMMARY | 2024-08-29 14:16 | XMS_ITS | Referral Summary ---
Author Organization [facility] Address [address] [place] [address] Care Team Providers Care It Operations Analyst Name Role Phone Crow Perry MD Primary Care Provider [phone] Encounters Date Type Department Care Team Description 08/29/2024 12:30 PM CDT Office Visit [facility] Medical [facility] Convenient Care at [address] [address] Kimberlee Preciado NP Bilateral leg weakness (Primary Dx); Sacral wound, initial encounter 08/11/2024 1:30 PM CDT Office Visit [facility] Cardiology [address] [facility] [address] [place] [address] Debbie Gaitan NP Carotid atherosclerosis, left (Primary Dx); Hypotension due to drugs; Sinus tachycardia; Hospital discharge follow-up; Dietary counseling 07/12/2024 12:55 PM CDT Ancillary Procedure [facility] Medical Group Imaging at [address] [address] Acute pain of left shoulder 07/12/2024 12:50 PM CDT Ancillary Procedure [facility] Medical Group Imaging at [address] [address] Acute pain of left shoulder 07/12/2024 12:15 PM CDT Office Visit [facility] Convenient Care at [address] [address] Peggy Allen PA Acute pain of left shoulder (Primary Dx); Acute pain of right knee; Fall, initial encounter; 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 Orders Only [facility] Medical Group Cardiology [address] [place] [address] Nica Jaffe NP from Last 3 Months Allergies Active Allergy Reactions Criticality Noted Date Comments Atenolol Other (See comments) Reaction: PVC'S, Medications albuterol 2.5 mg /3 mL (0.083 %) nebulizer solution A ctive cloNIDine (CATAPRES) 0.1 mg tablet clonidine HCl 0.1 mg tablet TAKE 1 TABLET BY MOUTH THREE TIMES DAILY NEEDED Active ergocalciferol (VITAMIN D) 50,000 unit capsule TAKE 1 CAPSULE BY MOUTH WEEKLY Active escitalopram (LEXAPRO) 20 mg tablet escitalopram [...] 2 PUFFS BY MOUTH TWICE DAILY DIRECTED Active pregabalin (LYRICA) 150 mg capsule pregabalin 150 mg capsule Active traMADoL (ULTRAM) 50 mg tablet every 6 hours Act basilio traZODone (DESYREL) 50 mg tablet trazodone 50 mg tablet Active insulin lispro (HumaLOG, ADMELOG) 100 unit/mL pen for injection Active famotidine (PEPCID) 20 mg tablet Take [...] total) by mouth every 12 (twelve) hours Active cetirizine (ZyrTEC) 10 mg tablet Take 1 tablet (10 mg total) by mouth daily Active cyclobenzaprine (FLEXERIL) 5 mg tablet Take 1 tablet (5 mg total) by mouth 3 (three) times a day as needed Active Trulicity 3 mg/0.5 mL pen injector ADMINISTER 3 MG UNDER THE SKIN EVERY WEEK Active hydroxychloroquine (PLAQUENIL) 200 mg tablet Take 1 tablet (200 mg total) by mouth 2 (two) times a day Active hydroCHLOROthiazid e (HYDRODIURIL) 25 mg tablet Take 1 tablet (25 mg total) by mouth every morning Active LANTUS 100 unit/mL (3 mL) pen for injection ADMINISTER 24 UNITS UNDER THE SKIN EVERY DAY Active lisinopriL (PRINIVIL,ZESTRIL) 20 mg tablet Take 1 tablet (20 mg total) by mouth every morning Active ondansetron ODT (ZOFRAN-ODT) 4 mg disintegrating [...] Strip strip USE DIRECTED THREE TIMES DAILY 025 Active Contour Plus Blue Meter misc USE DIRECTED TO CHECK BLOOD SUGAR 025 Active carisoprodoL (SOMA) 350 mg tablet Active celecoxib (CeleBREX) 100 mg capsule Active cephalexin (KEFLEX) 500 mg capsule TAKE 1 CAPSULE BY MOUTH FOUR TIMES DAILY FOR 14 DAYS 024 Active cyanocobalamin (Vitamin B-12) 1,000 mcg/mL injection ADMINISTER 1 ML UNDER THE SKIN EVERY MONTH 025 Active Advair HFA 230-21 mcg/actuation inhaler INHALE 2 PUFFS BY MOUTH EVERY 12 HOURS 025 Active Microlet Lancet misc USE DIRECTED THREE TIMES DAILY 025 Active nystatin cream APPLY TOPICALLY TO THE AFFECTED AREA TWICE DAILY FOR 2 TO 4 WEEKS Active TRUEplus Pen Needle 32 gauge x 5/32 needle USE TO INJECT WITH INSULIN DIRECTED 3 WITH SHORT ACTING INSULIN AND 1 WITH BASAL INSULIN 025 Active HYDROcodone-acetam inophen (NORCO) 7.5-325 mg per tablet TAKE ONE TABLET BY MOUTH EVERY DAY OR TWICE DAILY NEEDED 025 Active mupirocin (BACTROBAN) 2 % ointmentIndication s:Sacral [...] on file Legal Sex Female 1:13 AM TRIAGE CLINICIAN Gender Identity Not on file Sexual Orientation [...] 08/29/2024 12:29 PM CDT Plan of Treatment Not on file [...] CDT LIPID PANEL Routine 01/12/2023 7:51 AM TRIAGE CLINICIAN from Last 3 Months or Most Recently [...] by Smooth Fernandez M.D. T: Report ID: [id number] Reading Location: [id number] Procedure Note Smooth Fernandez MD - 07/12/2024 [...] by Smooth Fernandez M.D. T: Report ID: [id number] Reading Location: [id number] Peggy RMAON IMG XR PROCEDURES Final Result * XR Shoulder [...] by Smooth Fernandez M.D. T: Report ID: [id number] Reading Location: [id number] Procedure Note Smooth Fernandez MD - 07/12/2024 [...] by Smooth Fernandez M.D. T: Report ID: [id number] Reading Location: [id number] Peggy Allen PA IMG XR PROCEDURES Final Result * Cardiology Document Scan (06/27/2024 4:01 PM CDT) Anatomical Region Laterality Modality Other Nica Jaffe NP CV CARDIAC SERVICES PROCEDUR ES Final Result * (ABNORMAL) Lipid panel (01/12/2023 7:51 AM TRIAGE CLINICIAN) SCRIBED Cholesterol, Total 122 0 - 200 EXTERNAL LAB SCRIBED HDL 41 40 - 100 EXTERNAL LAB SCRIBED LDL 51 0 - 100 EXTERNAL LAB SCRIBED Triglycerides 253(A) 0 - 150 EXTERNAL LAB Blood 01/12/2023 7:51 AM TRIAGE CLINICIAN Historical Provider LAB BLOOD ORDERABLES Aubree l Result EXTERNAL LAB from Last 3 Months or Most Recently Relevant to Health Maintenance Insurance [facility] [place]PO [place] [facility] Care Teams It Operations Analyst Relationship Specialty Start Date End Date Crow Perry MD [address] [address] PCP - General Family Medicine 08/11/24
--- NOTE | 2024-08-29 16:27 | ECG_ITS ---
Test Date: 2024-08-29 16:38:08 Measurements Intervals [place] Rate: 80 P: 47 MI: 182 QRS: 37 QRSD: 81 T: 52 QT: 375 QTc: 434 Interpretive Statements SINUS RHYTHM LOW QRS VOLTAGE IN PRECORDIAL LEADS [QRS DEFLECTION < 1.0 mV IN CHEST LEADS] POOR R-WAVE PROGRESSION ABNORMAL ECG Compared to ECG 06/20/2024 20:29:25 NO SIGNIFICANT DIFFERENCE Electronically Signed On 08-30-2024 10:04:08 CDT by Smooth Wang M.D.
[2024-08-29 16:56] LABS: Add Urine Microscopic? YES; Appearance Urine Cloudy (Clear); Glucose Urine UA Negative (Negative); Leukocyte Esterase Ur 1+ LEU/UL (Negative); Nitrate Urine Negative (Negative); Specific Grav Ur 1.018 (1.001-1.035)
[2024-08-29 17:02] VITALS: BP 155/76; PULSE 75; RESP 16; O2SAT 100
[2024-08-29 17:24] LABS: Hematocrit 37.3 % (37.0-47.0); Hemoglobin 12.0 g/dL (12.0-15.0); Immature Granulocyte Percent A 0.3 % (0-0.5); Lymphocytes Absolute Auto 2.82 K/mm3 (0.9-3.2); Mean Corpuscular HGB Conc 32.2 g/dl (32-36); Mean Corpuscular Hemoglobin 27.7 pg (26-34); Mean Corpuscular Volume 86.1 fl (80-100); Nucleated Red Blood Cells Absolute Auto 0.000 K/mm3 (0.0-0.012); Nucleated Red Blood Cells Perc 0.0 % (0.0-0.2); Platelet Count Result 168 k/mm3 (150-375); Red Blood Count 4.33 M/mm3 (4.2-5.4); White Blood Count 9.7 K/mm3 (4.5-10.0)
--- OUTSIDE RECORDS SUMMARY | 2024-08-29 17:43 | XMS_ITS ---
Author Organization Unknown Plan of Treatment Description Planned Activity Planned Timing [facility] is a provider organization who partners directly with Health Plans and provides integrated primary care, behavioral health, and social sciences research scientist for an attributed population Letter encounter to patientTelephone encounter Aug 11, 2024Jul 2024 Patient Care team information Name Category Status Period Participants - - Proposed period not known -
--- OUTSIDE RECORDS SUMMARY | 2024-08-29 17:43 | XMS_ITS | Clinical Summary ---
Author Organization [facility] Address [address] [place] [address] Care Team Providers Care Butcher Supervisor Name Role Phone Crow Perry MD Primary Care Provider [phone] Allergies Active Allergy Reactions Criticality Noted Date [...] Description 08/29/2024 12:30 PM CDT Office Visit [facility] Medical Group Convenient Care at [address] [address] Kimberlee Preciado NP Bilateral leg weakness (Primary Dx); Sacral wound, initial encounter 08/11/2024 1:30 PM CDT Office Visit [facility] Medical Group Cardiology [address] [facility] [address] [place] [address] Debbie Gaitan NP Carotid atherosclerosis, left (Primary Dx); Hypotension due to drugs; Sinus tachycardia; Hospital discharge follow-up; Dietary counseling 07/12/2024 12:55 PM CDT Ancillary Procedure [facility] Medical Group Imaging at [address] [address] Acute pain of left shoulder 07/12/2024 12:50 PM CDT Ancillary Procedure [facility] Medical Group Imaging at [address] [address] Acute pain of left shoulder 07/12/2024 12:15 PM CDT Office Visit [facility] Medical Group Convenient Care at [address] [phone] Peggy Allen PA Acute pain of left shoulder (Primary Dx); Acute pain of right knee; Fall, initial encounter; 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 T: Report ID: [id number] Reading Location: [id number] Procedure Note Smooth Fernandez MD - 07/12/2024 [...] by Smooth Fernandez M.D. T: Report ID: [id number] Reading Location: [id number] Peggy RAMON IM XR PROCEDURES Final Result [...] by Smooth Fernandez M.D. T: Report ID: [id number] Reading Location: [id number] Procedure Note Smooth Fernandez MD - 07/12/2024 [...] by Smooth Fernandez M.D. T: Report ID: [id number] Reading Location: [id number] Peggy RAMON IMG XR PROCEDURES Final Result * Cardiology Document Scan (06/27/2024 4:01 PM CDT) Anatomical Region Laterality Modality Other Nica Jaffe NP CV CARDIAC SERVICES PROCEDUR ES Final Result * (ABNORMAL) Lipid panel (01/12/2023 7:51 AM BARREL PLANER) SCRIBED Cholesterol, Total 122 0 - 200 EXTERNAL LAB SCRIBED HDL 41 40 - 100 EXTERNAL LAB SCRIBED LDL 51 0 - 100 EXTERNAL LAB SCRIBED Triglycerides 253(A) 0 - 150 EXTERNAL LAB Blood 01/12/2023 7:51 AM BARREL PLANER Historical Provider LAB BLOOD ORDERABLES Aubree fagan Result EXTERNAL LAB from Last 3 Months or Most Recently Relevant to Health Maintenance Insurance [facility] Care Teams Butcher Supervisor Relationship Specialty Start Date End Date Crow Perry MD [address] [place] [address] PCP - General Family Medicine 08/11/24
--- OUTSIDE RECORDS SUMMARY | 2024-08-29 17:43 | XMS_ITS | Encounter Summary ---
Author Organization [facility] Healthcare Address [facility] [place] [address] Care Team Providers Care Die Cut Operator Name Role Phone Crow Perry MD Primary Care Provider [phone] Reason for Visit * Reason Comments Abscess Pt c/o abscess on bu ttocks, leg weakness and burning that started 4 days ago, back pain Encounter Details Date Type Department Care Team (Late st Contact Info) Description 08/29/2024 12:30 PM CDT Office Visit [facility] Medical Group Convenient Care at [address] [address] Kimberlee Preciado NP [address] [place] [address] Bilateral leg weakness (Primary Dx); Sacral wound, initial encounter Social History Tobacco Use Types Packs/Day Years Used Date Smoking Tobacco: Former Cigarettes Smokeless Tobacco: Never Alcohol Use Standard Drinks/Week Comments No 0 (1 standard drink = 0.6 oz pur e alcohol) Comments Unknown Sex and Gender Information Value Date Recorded Sex Assigned at Not on file Legal Sex Female 1:13 AM JACK TAMP OPERATOR Gender Identity Not on file Sexual [...] 07/17/2024 added in this encounter Care Teams Die Cut Operator Relationship Specialty Start Date End Date Crow Perry MD [address] [place] [address] [place] [address] PCP - General Family Medicine 08/11/24 documented as of this encounter
--- OUTSIDE RECORDS SUMMARY | 2024-08-29 17:44 | XMS_ITS | Referral Summary ---
Author Organization [facility] Address [address] [place] [address] Care Team Providers Care Dock Guard Name Role Phone Crow Perry MD Primary Care Provider [phone] Encounters Date Type Department Care Team Description 08/29/2024 12:30 PM CDT Office Visit [facility] Medical [facility] Convenient Care at [address] [address] Kimberlee Preciado NP Bilateral leg weakness (Primary Dx); Sacral wound, initial encounter 08/11/2024 1:30 PM CDT Office Visit [facility] Cardiology [address] [facility] [address] [place] [address] Debbie Gaitan NP Carotid atherosclerosis, left (Primary Dx); Hypotension due to drugs; Sinus tachycardia; Hospital discharge follow-up; Dietary counseling 07/12/2024 12:55 PM CDT Ancillary Procedure [facility] Medical Group Imaging at [address] [address] Acute pain of left shoulder 07/12/2024 12:50 PM CDT Ancillary Procedure [facility] Medical Group Imaging at [address] [address] Acute pain of left shoulder 07/12/2024 12:15 PM CDT Office Visit 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 T: Report ID: [id number] Reading Location: [id number] Procedure Note Smooth Fernandez MD - 07/12/2024 [...] by Smooth Fernandez M.D. T: Report ID: [id number] Reading Location: [id number] Peggy RAMON IMG XR PROCEDURES Final Result * XR [...] by Smooth Fernandez M.D. T: Report ID: [id number] Reading Location: [id number] Procedure Note Smooth Fernandez MD - 07/12/2024 [...] by Smooth Fernandez M.D. T: Report ID: [id number] Reading Location: [id number] Peggy Allen PA IMG XR PROCEDURES Final Result * Cardiology Document Scan (06/27/2024 4:01 PM CDT) Anatomical Region Laterality Modality Other Nica Jaffe NP CV CARDIAC SERVICES PROCEDUR ES Final Result * (ABNORMAL) Lipid panel (01/12/2023 7:51 AM QUALITY CONTROL MANAGER) SCRIBED Cholesterol, Total 122 0 - 200 EXTERNAL LAB SCRIBED HDL 41 40 - 100 EXTERNAL LAB SCRIBED LDL 51 0 - 100 EXTERNAL LAB SCRIBED Triglycerides 253(A) 0 - 150 EXTERNAL LAB Blood 01/12/2023 7:51 AM QUALITY CONTROL MANAGER Historical Provider LAB BLOOD ORDERABLES Aubree l Result EXTERNAL LAB from Last 3 Months or Most Recently Relevant to Health Maintenance Insurance CHOICE [facility] [place] [facility] Care Teams Dock Guard Relationship Specialty Start Date End Date Crow Perry MD [address] [address] [address] PCP - General Family Medicine 08/11/24
--- NOTE | 2024-08-29 17:53 | ED_ITS ---
HPI - Weakness General Chief complaint: Weakness Stated complaint: weakness Time Seen by Provider: 08/29/24 16:32 History of Present Illness HPI Narrative: Patient states that over last 4 days, she has been having weakness to her bilateral upper legs, to the point were she cannot stand back up if she leans over, cannot get up from the couch if she sits down, cannot lift her legs high enough to get into her own car. No fevers or chills, she does have a history of rheumatoid arthritis, has never had symptoms like this before. Incidentally she has also noticed a small ulcer to her lower back that hurts. Sent here from urgent care. Related Data Home Medications ?Medication ?Instructions ?Recorded ?Confirmed ?Last Taken ?Type aspirin 81 mg capsule 81 mg PO DAILY 12/05/20 06/21/24 06/12/24 History rosuvastatin 40 mg tablet 40 mg PO WEEKLY 12/05/20 06/21/24 06/08/24 History albuterol sulfate 2.5 mg/3 mL 2.5 mg inhalation Q6H PRN 03/28/21 06/21/24 09/21/22 History (0.083 %) solution for nebulization Shortness Of Breath Or Wheezing ergocalciferol (vitamin D2) 1,250 1,250 mcg PO WEEKLY 03/28/21 06/21/24 06/06/24 History mcg (50,000 unit) capsule trazodone 50 mg tablet 50 mg PO QHS PRN Insomnia 03/28/21 06/21/24 06/11/24 History hydroxychloroquine 200 mg tablet 200 mg PO .q12hr 09/12/22 06/21/24 06/12/24 History Afrin (oxymetazoline) 1 puff intranasal TID PRN 04/06/23 06/21/24 06/12/24 History Congestion ibuprofen 1,600 mg PO BID PRN Headache 04/06/23 06/21/24 06/11/24 History cetirizine 10 mg tablet 10 mg PO DAILY 06/13/24 06/21/24 06/12/24 History cyclobenzaprine 5 mg tablet 5 mg PO TID PRN muscle pain 06/13/24 06/21/24 06/11/24 History dulaglutide 3 mg/0.5 mL 3 mg subcut WEEKLY 06/13/24 06/21/2425 History subcutaneous pen injector (Trulicity) escitalopram oxalate 10 mg tablet 10 mg PO DAILY 06/13/24 06/21/24 06/11/24 History famotidine 20 mg tablet 20 mg PO BID PRN acid reflux 06/13/24 06/21/24 06/11/24 History ferrous sulfate 325 mg (65 mg 325 mg PO BID PRN menstrual 06/13/24 06/21/24 06/10/24 History iron) tablet (FeroSul) bleeding fluticasone propionate 50 1 spray intranasal DAILY PRN 06/13/24 06/21/24 Unknown History mcg/actuation nasal allergy symptoms spray,suspension hydrocodone 7.5 mg-acetaminophen 1 tablet PO TID PRN pain 06/13/24 06/21/24 06/11/24 History 325 mg tablet insulin lispro 100 unit/mL 50 unit subcut TIDWM 06/13/24 06/21/24 06/11/24 History subcutaneous pen metformin 500 mg tablet,extended 500 mg PO BID 06/13/24 06/21/24 06/11/24 History release 24 hr pregabalin 200 mg capsule 200 mg PO DAILY 06/13/24 06/21/24 06/12/24 History progesterone micronized 100 mg 100 mg PO QPM 06/13/24 06/21/24 06/11/24 History capsule Allergies Allergy/AdvReac Type Severity Reaction Status Date / Time atenolol Allergy Intermediate Chest Pain Verified 06/24/24 09:52 Review of Systems 2 Review of Systems: All systems reviewed & are unremarkable except as noted in HPI and below PMFSH Past Medical History Medical History Lower extremity edema Dyspnea on exertion Pneumonia Rheumatoid arthritis (normal spontaneous vaginal delivery) x2 Status post hysteroscopy 2015 and 2020 Asthma Obesity Iron deficiency anemia Elective Anxiety and depression GERD (gastroesophageal reflux disease) HTN (hypertension) High triglycerides HLD (hyperlipidemia) Diabetes Surgical History Surgical History S/P endometrial ablation 2017 Family History Family History Mother Atrial fibrillation History of open heart surgery Family history of cataracts Hypertension Asthma Grandparent Family history of cardiovascular disease Family history of Alzheimer's disease Family history of coronary artery disease Heart murmur Sibling Heart murmur Social History Social History Smoking packs per day: 1 Smoking cigarettes per day: 20.0 Years smoked: 20 Smoking pack-years: 20.00 Smoking status: Former smoker Tobacco type: cigarettes Smoking end date: 02/16/02 Alcohol intake: never Drinks per week: 2 Substance use: never Substance use type: marijuana Do You Feel Safe in your Home?: Yes Lack of Transportation: No Lack of Food: Never True Current Housing: I Have Housing Concerned About Future Housing: No Difficulty Paying Gas/Electric Bills: No Difficulty Paying for Meds: No Currently Unemployed: No Education: High School Diploma/GED Difficulty w/ Childcare or Family Care: No Living arrangements: alone Gender identity (if verbalized by the patient): Female Spiritual care concerns: No Agree to blood products: Yes Exam 2 Narrative: EXAMINATION OF ORGAN SYSTEMS/BODY AREAS: Constitutional: Vital signs per nursing GENERAL:[No acute distress, non-toxic appearing.] HEAD: Normal with no signs of head trauma. EYES: EOMI, conjunctiva normal ENT: Hearing grossly intact LUNGS: Nonlabored breathing. HEART: [Regular rate and rhythm] ABD: [Soft], [nontender to palpation] EXT: No deformity SKIN: Small superficial ulcer tailbone; no fluctuance or drainage NEURO: [Alert and oriented x 3. Normal strength/no drift to arms, able to lift above head. Normal strength with knee/ankle flexion/extension but weakness to hip flexors] PSYCH: Normal affect Course Vital Signs Vital signs: Vital Signs Temperature 98.3 F 08/29/24 14:14 Pulse Rate 86 08/29/24 14:14 Respiratory Rate 18 08/29/24 14:14 Blood Pressure 153/81 H 08/29/24 14:14 Pulse Oximetry 99 08/29/24 14:14 Temperature 98.3 F 08/29/24 14:14 Pulse Rate 75 08/29/24 17:02 Respiratory Rate 16 08/29/24 17:02 Blood Pressure 155/76 H 08/29/24 17:02 Pulse Oximetry 100 08/29/24 17:02 Procedures EJ/Peripheral Line Arm R: EJ/Peripheral Line Date: 08/29/24 EJ/Peripheral Line Time: 19:01 Skin Cleansed in Sterile Fashion: Yes Ultrasound Guided: Yes Size (gauge): 18 IV Secured and Dressing Applied: Yes Patient Tolerated Procedure: well and no complications MDM - Weakness MDM Narrative Medical decision making narrative: 54-year-old female presenting 4-5 days of new weakness to bilateral proximal legs, also noticed a small ulcer to her tailbone. Due to the weakness she is having trouble actually getting up or standing up or getting into her car. She has no chest pain, shortness of breath, fevers or chills, or significant low back pain. No numbness or tingling or paresthesias. Does have rheumatoid arthritis. On exam she does have weakness to the hip flexors but otherwise normal strength to knee and ankles. Normal upper extremity strength. Given her exam, with proximal weakness, I did consider possible polymyalgia or polymyositis, did obtain CK, CRP, ESR, labs. Potassium 5.7, creatinine 2.96, ALT and AST also quite elevated. Urine with blood, I did obtain CT abdomen/pelvis which was unremarkable other than possible cellulitis. Hyperkalemia treatment initiated, EKG on my independent interpretation shows sinus rhythm rate 80, UT 0 and 82, QRS 81, QTC 434, some possible peaked T-waves versus possible very subtle ST elevation in lead 3 but not in contiguous leads, no corresponding ST depression or chest pain. CK return of over 16,000. Additional fluids ordered, discussed with product support specialist, discussed with hospitalist, discussed with patient. Lab Data 08/29/24 17:17 08/29/24 17:17 Labs: Lab Results 08/29/24 08/29/24 Range/Units 16:43 17:17 WBC 9.7 (4.5-10.0) K/mm3 RBC 4.33 (4.2-5.4) M/mm3 Hgb 12.0 (12.0-15.0) g/dL Hct 37.3 (37.0-47.0) % MCV 86.1 (80-100) fl MCH 27.7 (26-34) pg MCHC 32.2 (32-36) g/dl RDW 14.0 (11.5-14.5) % Plt Count 168 (150-375) k/mm3 MPV 10.3 (7.4-10.4) fl Immature Gran % (Auto) 0.3 (0-0.5) % Neut % (Auto) 59.3 (45.5-73.1) % Lymph % (Auto) 29.0 (18.3-44.2) % Bland % (Auto) 9.9 H (2.6-8.5) % Eos % (Auto) 1.1 (0-4.4) % Baso % (Auto) 0.4 (0.2-1.2) % Lymph # (Auto) 2.82 (0.9-3.2) K/mm3 Bland # (Auto) 1.0 H (0.1-0.6) K/mm3 Eos # (Auto) 0.1 (0-0.3) K/mm3 Baso # (Auto) 0.0 (0.0-0.1) K/mm3 Abs Immat Gran (auto) 0.03 (0.00-0.031) K/mm3 Absolute Neuts (auto) 5.8 (1.3-6.7) K/mm3 Absolute Nucleated RBC 0.000 (0.0-0.012) K/mm3 Nucleated RBC % 0.0 (0.0-0.2) % Sodium 138 (137-145) mmol/L Potassium 5.7 H (3.4-5.0) mmol/L Chloride 111 H (98-107) mmol/L Carbon Dioxide 17 L (22-30) mmol/L Anion Gap 10 (4-12) mmol/L BUN 45 H D (7-17) mg/dL Creatinine 2.96 H (0.7-1.0) mg/dL Estim Creat Clear Calc Not Reportable Estimated GFR 16 L (59 - ) Glucose 83 (65-110) mg/dL Calcium 9.5 (8.4-10.2) mg/dL Total Bilirubin 0.3 (0.2-1.3) mg/dL AST 500 H (14-36) U/L ALT 223 H (6-35) U/L Alkaline Phosphatase 48 (38-126) U/L Total Creatine Kinase > 04011 H (30-135) U/L C-Reactive Protein < 0.5 (<1.0) mg/dL Total Protein 6.5 (6.3-8.2) g/dL Albumin 3.7 (3.5-5.1) g/dL Urine Color Yellow (Yellow) Urine Appearance Cloudy H (Clear) Urine pH 5.5 (5.0-9.0) Ur Specific [place] 1.018 (1.001-1.035) Urine Protein 3+ H (Negative) mg/dL Urine Glucose (UA) Negative (Negative) mg/dL Urine Ketones Trace H (Negative) mg/dL Ur Blood (Man) 3+ H (Negative) Urine Nitrate Negative (Negative) Urine Bilirubin Negative (Negative) Urine Urobilinogen 1.0 (<2.0) mg/dL Leukocyte Esterase Rfl 1+ H (Negative) ROLDAN/UL Urine RBC 21-50 H (0-2) /hpf Urine WBC 0-5 (0-3) /hpf Ur Squamous Epith Cells Few (Few) /hpf Urine Bacteria None seen /hpf Urine Casts 6-10 Hyaline Casts Present (None) /lpf Critical Care Time Critical Care Time Critical Care Time: Yes Total Critical Care Time: 74 Discharge Plan Discharge Clinical Impression: GIORGI (acute kidney injury), Rhabdomyolysis, Hyperkalemia, Abnormal LFTs Patient Disposition: Still a Patient Condition: Serious Patient Language: Portuguese Prescriptions: No Action trazodone 50 mg tablet 50 mg PO QHS PRN (Reason: Insomnia) albuterol sulfate 2.5 mg /3 mL (0.083 %) solution for nebulization 2.5 mg inhalation Q6H PRN (Reason: Shortness Of Breath Or Wheezing) ergocalciferol (vitamin D2) 1,250 mcg (50,000 unit) capsule 1,250 mcg PO WEEKLY Rx Instructions: Weekly on Mondays fluticasone propion-salmeterol [Advair HFA] 230-21 mcg/actuation HFA aerosol inhaler 2 puff inhalation Q12HRT 30 Days Qty: 60 6RF rosuvastatin 40 mg Tablet 40 mg PO WEEKLY Rx Instructions: Thursday and Thursday aspirin 81 mg Capsule 81 mg PO DAILY hydroxychloroquine 200 mg tablet 200 mg PO .q12hr Afrin (oxymetazoline) 1 puff intranasal TID PRN (Reason: Congestion) ibuprofen 800 mg tablet 1,600 mg PO BID PRN (Reason: Headache) doxycycline hyclate 100 mg Tablet 100 mg PO Q12HR Qty: 5 0RF cetirizine 10 mg tablet 10 mg PO DAILY famotidine 20 mg tablet 20 mg PO BID PRN (Reason: acid reflux) hydrocodone-acetaminophen 7.5-325 mg tablet 1 tablet PO TID PRN (Reason: pain) ferrous sulfate [FeroSul] 325 mg (65 mg iron) tablet 325 mg PO BID PRN (Reason: menstrual bleeding ) fluticasone propionate 50 mcg/actuation spray,suspension 1 spray INTRANASAL DAILY PRN (Reason: allergy symptoms) metformin 500 mg tablet extended release 24 hr 500 mg PO BID progesterone micronized 100 mg capsule 100 mg PO QPM insulin lispro 100 unit/mL insulin pen 50 unit SUBCUT TIDWM escitalopram oxalate 10 mg tablet 10 mg PO DAILY cyclobenzaprine 5 mg tablet 5 mg PO TID PRN (Reason: muscle pain) pregabalin 200 mg capsule 200 mg PO DAILY Trulicity 3 mg/0.5 mL pen injector 3 mg SUBCUT WEEKLY Rx Instructions: Weekly on Mondays lisinopril 20 mg Tablet 40 mg PO QAM Qty: 60 0RF hydrochlorothiazide 25 mg Tablet 25 mg PO QAM Qty: 30 0RF carvedilol [Coreg] 12.5 mg Tablet 12.5 mg PO Q12HR Qty: 60 0RF Patient Comments: PATIENT FEELS THIS IS THE MED THAT MADE HER HAVE N/V insulin glargine [Lantus Solostar U-100 Insulin] 100 unit/mL (3 mL) insulin pen 24 unit subcut QPM Qty: 15 0RF (DME) blood-glucose meter [OneTouch Verio Flex meter] [facility] [place] Qty: 1 0RF Rx Instructions: May substitute to in-stock meter and/or covered by insurance. Use As Directed (DME) OneTouch Verio test strips Strip Qty: 1 0RF Rx Instructions: May substitute to in-stock and/or covered by insurance strips. Use As Directed (DME) pen needle, diabetic 32 gauge x 1/4 Needle Qty: 1 0RF Rx Instructions: As Directed (DME) pen needle, diabetic 32 gauge x 5/32 Needle Qty: 1 0RF Rx Instructions: As Directed (DME) lancets [OneTouch Delica Plus Lancet] [facility] Qty: 1 0RF Rx Instructions: May substitute to in-stock and/or covered by insurance lancets. Use As Directed (DME) insulin syringe,safety needle 0.5 mL 31 gauge x 5/16 Syringe Qty: 1 0RF Rx Instructions: As Directed (DME) insulin syringe,safety needle 1 mL 32 gauge x 5/16 Syringe Qty: 1 0RF Rx Instructions: As Directed ondansetron 4 mg tablet,disintegrating 4 mg PO Q8H PRN (Reason: nausea and vomiting) Qty: 60 1RF potassium chloride [K-Tab] 20 mEq tablet extended release 40 meq PO BID Qty: 60 0RF magnesium oxide 400 mg magnesium capsule 400 mg PO DAILY Qty: 60 0RF magnesium oxide 400 mg (241.3 mg magnesium) tablet 400 mg PO HS Qty: 60 0RF Follow-up/Referrals: [place],Crow Tang MD [Primary Care Provider] -
[2024-08-29 18:01] LABS: Alanine Aminotransferase 223 U/L (6-35); Albumin Level 3.7 g/dL (3.5-5.1); Alkaline Phosphatase 48 U/L (38-126); Anion Gap 10 mmol/L (4-12); Aspartate Amino Transferase 500 U/L (14-36); Bilirubin,Total 0.3 mg/dL (0.2-1.3); Blood Urea Nitrogen 45 mg/dL (7-17); CRP < 0.5 mg/dL (<1.0); Calcium 9.5 mg/dL (8.4-10.2); Carbon Dioxide 17 mmol/L (22-30); Chloride 111 mmol/L (98-107); Estimated Glomerular Filt Rate 16; Glucose 83 mg/dL (65-110); Potassium 5.7 mmol/L (3.4-5.0); Sodium 138 mmol/L (137-145); Total Protein 6.5 g/dL (6.3-8.2)
[2024-08-29] MEDS: LACTATED RINGERS 1,000 ML 999 ML IV CONT ×2 (18:41→20:14)
[2024-08-29] MEDS: CALCIUM GLUCONATE 1,000 MG/10 ML VIAL 2000 MG IV PUSH (18:42)
[2024-08-29] MEDS: DEXTROSE 50% 25 GM/50 ML SYRINGE IV PUSH (18:42)
[2024-08-29] MEDS: INSULIN HUMAN REGULAR (*BKC) 100 UNITS/ML 10 UNITS IV PUSH (18:42)
[2024-08-29] MEDS: SODIUM ZIRCONIUM CYCLOSILICATE 10 GM POWD.PACK PO (18:43)
[2024-08-29 18:55] LABS: Creatine Kinase > 16000 U/L (30-135)
[2024-08-29 19:20] VITALS: BP 149/71; PULSE 83; RESP 16; O2SAT 99
[2024-08-29] MEDS: LACTATED RINGERS 1,000 ML 150 ML IV CONT (20:14)
[2024-08-29] MEDS: ceFAZolin 2 GM in SODIUM CHLORIDE 0.9% IV 50 ML 100 ML IVPB (20:14)
[2024-08-29 21:44] LABS: MRSA (PCR) NOT DETECTED (NOT DETECTE)
[2024-08-29 22:40] VITALS: BP 168/97; PULSE 86; RESP 18; TEMP 36.9; O2SAT 98
[2024-08-29 22:44] VITALS: BMI 38.3
--- NOTE | 2024-08-29 23:19 | ADMGEN ---
This patient, Regina Howell, was admitted to Intensive Care Unit-6 at 2230. Patient/family oriented to hospital policies and general routines including ID bracelet, bed and alarms, visiting hours, pain management, procedures, bathroom and other care routines, personal items, smoking policy, room service/diet, and visiting hours. Information on how to activate the Rapid Response Team has been discussed. Patient/Family are encouraged to report perceived risks to care and to ask questions if they do not understand what they are told or what they should do.
[2024-08-30] VITALS (12 sets, daily range): BP systolic 117–190; BP diastolic 65–106; PULSE 77–87; RESP 12–20; TEMP 36.6–37.1; O2SAT 95–100
--- NOTE | 2024-08-30 00:56 | P.HP_ITS ---
H&P: HPI History of Present Illness Date/Time: 08/30/24 00:56 Chief Complaint: Weakness Narrative: This is a pleasant 54-year-old female with a past medical history lower extremity edema, history of pneumonia, rheumatoid arthritis on hydroxychloroquine, asthma, obesity, iron deficiency anemia, anxiety and depression, GERD, hypertension, hyperlipidemia, insulin-dependent diabetes mellitus. She presents to [facility] ER on 08/29/2024 with the complaint of bilateral upper leg weakness for 4 days. She reports this happened suddenly 1 day after work. She cannot lift her legs at the hips but has good strength at the knees and ankles and feet and as such she cannot lift herself from a laying position, she can also not stand up from bending down. She has to use something to brace and push herself up. She has not had any sensory changes. No changes in bowel or bladder habits. Above the way she has full strength as well. Denies nausea vomiting diarrhea, abdominal pain, fever, change in vision, headache. She has not been ill recently. She reports her thighs are also stiff and very sore and they feel very tight and bulging. Also 4 days ago she developed a sore lower back by the tailbone and has been told there is an ulcer there. No discharge. He is adamant she has not been in mobile for long periods of time in the past 4 days, she is still able to walk and get around with the above-mentioned limitations. In the ER she was persistently hypertensive with systolic blood pressure in the 150s. Otherwise her vitals were within normal limits. WBC 9.7, hemoglobin 12, ESR 20, potassium 5.7, chloride 111, bicarb 17, BUN 45, serum creatinine 2.96. AST 500, ALT 2-3, creatinine kinase 16,000. Urinalysis demonstrating 1+ leukocyte esterase, no bacteria. Cloudy appearance. Chest x-ray without acute findings. CT abdomen pelvis lumbar without contrast demonstrating a paddle megaly, mild body wall edema, dermal thickening and edema/subcutaneous inflammatory changes over the midline lower anterior abdomen. CT thoracic spine without any acute fracture or malalignment. Review of Systems Review of Systems: All systems reviewed & are unremarkable except as noted in HPI and below (HPI) [facility] Past Medical History Medical History Lower extremity edema Dyspnea on exertion Pneumonia Rheumatoid arthritis (normal spontaneous vaginal delivery) x2 Status post hysteroscopy 2015 and 2020 Asthma Obesity Iron deficiency anemia Elective Anxiety and depression GERD (gastroesophageal reflux disease) HTN (hypertension) High triglycerides HLD (hyperlipidemia) Diabetes Surgical History Surgical History S/P endometrial ablation 2018 Family History Family History Mother Atrial fibrillation History of open heart surgery Family history of cataracts Hypertension Asthma Grandparent Family history of cardiovascular disease Family history of Alzheimer's disease Family history of coronary artery disease Heart murmur Sibling Heart murmur Social History Social History Smoking packs per day: 1 Smoking cigarettes per day: 20.0 Years smoked: 20 Smoking pack-years: 20.00 Smoking status: Former smoker Tobacco type: cigarettes Smoking end date: 02/16/02 Alcohol intake: never Drinks per week: 2 Substance use: never Do You Feel Safe in your Home?: Yes Lack of Transportation: No Lack of Food: Never True Current Housing: I Have Housing Concerned About Future Housing: No Difficulty Paying Gas/Electric Bills: No Difficulty Paying for Meds: No Currently Unemployed: No Education: High School Diploma/GED Difficulty w/ Childcare or Family Care: No Living arrangements: alone Gender identity (if verbalized by the patient): Female Spiritual care concerns: No Agree to blood products: Yes Meds Home Medications and Allergies Home Medications ?Medication ?Instructions ?Recorded ?Confirmed ?Type aspirin 81 mg capsule 81 mg PO DAILY 12/05/20 08/29/24 History rosuvastatin 40 mg tablet 40 mg PO DAILY 12/05/20 08/29/24 History albuterol sulfate 2.5 mg/3 mL 2.5 mg inhalation Q6H PRN 03/28/21 08/29/24 History (0.083 %) solution for nebulization Shortness Of Breath Or Wheezing ergocalciferol (vitamin D2) 1,250 1,250 mcg PO WEEKLY 03/28/21 08/29/24 History mcg (50,000 unit) capsule trazodone 50 mg tablet 50 mg PO QHS PRN Insomnia 03/28/21 08/29/24 History hydroxychloroquine 200 mg tablet 200 mg PO .q12hr 09/12/22 08/29/24 History Afrin (oxymetazoline) 1 puff intranasal TID PRN 04/06/23 08/29/24 History Congestion ibuprofen 1,600 mg PO BID PRN Headache 04/06/23 08/29/24 History fluticasone propionate 230 2 puff inhalation Q12HRT 30 days 06/03/23 08/29/24 Rx mcg-salmeterol 21 mcg/actuation #60 grams HFA inhaler (Advair HFA) cetirizine 10 mg tablet 10 mg PO DAILY 06/13/24 08/29/24 History cyclobenzaprine 5 mg tablet 5 mg PO TID PRN muscle pain 06/13/24 08/29/24 History dulaglutide 3 mg/0.5 mL 3 mg subcut WEEKLY 06/13/24 08/29/24 History subcutaneous pen injector (Trulicity) escitalopram oxalate 10 mg tablet 10 mg PO DAILY 06/13/24 08/29/24 History famotidine 20 mg tablet 20 mg PO BID PRN acid reflux 06/13/24 08/29/24 History ferrous sulfate 325 mg (65 mg 325 mg PO BID PRN menstrual 06/13/24 08/29/24 History iron) tablet (FeroSul) bleeding fluticasone propionate 50 1 spray intranasal DAILY PRN 06/13/24 08/29/24 History mcg/actuation nasal allergy symptoms spray,suspension hydrocodone 7.5 mg-acetaminophen 1 tablet PO TID PRN pain 06/13/24 08/29/24 History 325 mg tablet insulin lispro 100 unit/mL 50 unit subcut TIDWM 06/13/24 08/29/24 History subcutaneous pen metformin 500 mg tablet,extended 500 mg PO BID 06/13/24 08/29/24 History release 24 hr pregabalin 200 mg capsule 200 mg PO DAILY 06/13/24 08/29/24 History progesterone micronized 100 mg 100 mg PO QPM 06/13/24 08/29/24 History capsule blood sugar diagnostic (OneTouch #1 pkg 06/17/24 08/29/24 Rx Verio test strips) blood-glucose meter (OneTouch #1 pkg 06/17/24 08/29/24 Rx Verio Flex Meter) carvedilol 12.5 mg tablet (Coreg) 12.5 mg PO Q12HR #60 tabs 06/17/24 08/29/24 Rx hydrochlorothiazide 25 mg tablet 25 mg PO QAM #30 tabs 06/17/24 08/29/24 Rx insulin glargine 100 unit/mL (3 24 unit (0.24 mL) subcut QPM #15 mL 06/17/24 08/29/24 Rx mL) subcutaneous pen (Lantus Solostar U-100 Insulin) insulin syringe,safety needle 0.5 #1 pkg 06/17/24 08/29/24 Rx mL 31 gauge x 5/16 insulin syringe,safety needle 1 mL #1 [facility] 06/17/24 08/29/24 Rx 32 gauge x 5/16 lancets 30 gauge (OneTouch Delica #1 pkg 06/17/24 08/29/24 Rx Plus Lancet) pen needle, diabetic 32 gauge x #1 [facility] 06/17/24 08/29/24 Rx 1/4 pen needle, diabetic 32 gauge x #1 pkg 06/17/24 08/29/24 Rx 5/32 magnesium oxide 400 mg (241.3 mg 400 mg PO HS #60 tabs 06/30/24 08/29/24 Rx magnesium) tablet ondansetron 4 mg disintegrating 4 mg PO Q8H PRN nausea and 06/30/24 08/29/24 Rx tablet vomiting #60 tabs lisinopril 40 mg tablet 40 mg PO DAILY 08/29/24 08/29/24 History Allergies Allergy/AdvReac Type Severity Reaction Status Date / Time atenolol Allergy Intermediate Chest Pain Verified 06/24/24 09:52 Vital Signs Vital Signs - 24 hr 08/29/24 14:14 08/29/24 17:02 08/29/24 19:20 Temperature 98.3 F Pulse Rate 86 75 83 Respiratory Rate 18 16 16 Blood Pressure 153/81 H 155/76 H 149/71 H Pulse Oximetry 99 100 99 Oxygen Delivery 08/29/24 22:40 08/30/24 00:00 08/30/24 00:00 Temperature 98.4 F Pulse Rate 86 87 Respiratory Rate 18 Blood Pressure 168/97 H Pulse Oximetry 98 Oxygen Delivery Room Air 08/30/24 00:00 Temperature 98.4 F Pulse Rate 87 Respiratory Rate 14 Blood Pressure 157/80 H Pulse Oximetry 97 Oxygen Delivery Exam Const: General: comfortable and no acute distress Other: A&O x3, obese. No facial rash Eyes: Pupils: Equal, round and reactive pupils present Neck: Neck: supple Lymphatic: lymphadenopathy not noted Resp: Effort & Inspection: normal respiratory effort Auscultation: clear to auscultation bilaterally Cardio: Rate: regular rate Rhythm: regular rhythm GI: Inspection: non-distended GI Palp: Yes Soft to palpation and No Tenderness to palpation present (GI) Auscultation: normal bowel sounds : General: Yes bladder normal to palpation Skin: Other: At the area of the lumbar spine between the gluteal clefts, 1 cm in diameter superficial ulcer, mild surrounding erythema without pain to palpation or warmth to touch. No drainage. Neuro: General: deep tendon reflexes 2+ bilaterally Sensory Exam: normal sensation Other: No ataxia. 0/5 strength bilateral lower extremities at the hip on abduction. Extrem: Other: Trace pitting edema bilateral lower extremities below the knees. H&P: Results Labs Labs: Short CBC 08/29/24 Range/Units 17:17 WBC 9.7 (4.5-10.0) K/mm3 Hgb 12.0 (12.0-15.0) g/dL Hct 37.3 (37.0-47.0) % Plt Count 168 (150-375) k/mm3 BMP 08/29/24 17:17 Sodium 138 Potassium 5.7 H Chloride 111 H Carbon Dioxide 17 L BUN 45 H D Creatinine 2.96 H Glucose 83 Calcium 9.5 Cardiac Enzymes 08/29/24 Range/Units 17:17 Total Creatine Kinase > 72516 H (30-135) U/L Liver Function 08/29/24 Range/Units 17:17 Total Bilirubin 0.3 (0.2-1.3) mg/dL AST 500 H (14-36) U/L ALT 223 H (6-35) U/L Alkaline Phosphatase 48 (38-126) U/L Albumin 3.7 (3.5-5.1) g/dL Urine 08/29/24 Range/Units 16:43 Urine Color Yellow (Yellow) Urine Appearance Cloudy H (Clear) Urine pH 5.5 (5.0-9.0) Ur Specific [place] 1.018 (1.001-1.035) Urine Protein 3+ H (Negative) mg/dL Urine Glucose (UA) Negative (Negative) mg/dL Assessment and Plan Assessment and plan (1) HTN (hypertension): Code(s): I10 - Essential (primary) hypertension Status: Chronic (2) Insulin dependent diabetes mellitus: Status: Chronic (3) Obesity: Code(s): E66.9 - Obesity, unspecified Status: Acute (4) GERD (gastroesophageal reflux disease): Qualifiers: Esophagitis presence: esophagitis presence not specified Qualified Code(s): K21.9 - Gastro-esophageal reflux disease without esophagitis Code(s): K21.9 - Gastro-esophageal reflux disease without esophagitis Status: Acute (5) GIORGI (acute kidney injury): Code(s): N17.9 - Acute kidney failure, unspecified Status: Acute (6) Hyperkalemia: Code(s): E87.5 - Hyperkalemia Status: Acute (7) Rheumatoid arthritis: Code(s): M06.9 - Rheumatoid arthritis, unspecified Status: Acute (8) Rhabdomyolysis: Code(s): M62.82 - Rhabdomyolysis Status: Acute (9) Muscle weakness of lower extremity: Code(s): M62.81 - Muscle weakness (generalized) Status: Acute Plan This is a pleasant 54-year-old female with a past medical history lower extremity edema, history of pneumonia, rheumatoid arthritis on hydroxychloroquine, asthma, obesity, iron deficiency anemia, anxiety and depression, GERD, hypertension, hyperlipidemia, insulin-dependent diabetes mellitus. She presents to [facility] ER on 08/29/2024 with the complaint of bilateral upper leg weakness for 4 days. She reports this happened suddenly 1 day after work. She cannot lift her legs at the hips but has good strength at the knees and ankles and feet and as such she cannot lift herself from a laying position, she can also not stand up from bending down. She has to use something to brace and push herself up. She has not had any sensory changes. No changes in bowel or bladder habits. Above the way she has full strength as well. Denies nausea vomiting diarrhea, abdominal pain, fever, change in vision, headache. She has not been ill recently. She reports her thighs are also stiff and very sore and they feel very tight and bulging. Also 4 days ago she developed a sore lower back by the tailbone and has been told there is an ulcer there. No discharge. He is adamant she has not been in mobile for long periods of time in the past 4 days, she is still able to walk and get around with the above-mentioned limitations. In the ER she was persistently hypertensive with systolic blood pressure in the 150s. Otherwise her vitals were within normal limits. WBC 9.7, hemoglobin 12, ESR 20, potassium 5.7, chloride 111, bicarb 17, BUN 45, serum creatinine 2.96. AST 500, ALT 2-3, creatinine kinase 16,000. Urinalysis demonstrating 1+ leukocyte esterase, no bacteria. Cloudy appearance. Chest x-ray without acute findings. CT abdomen pelvis lumbar without contrast demonstrating a paddle megaly, mild body wall edema, dermal thickening and edema/subcutaneous inflammatory changes over the midline lower anterior abdomen. CT thoracic spine without any acute fracture or malalignment. ----- Differential include polymyalgia rheumatica, myelopathy/myelitis, myositis, rhabdomyolysis secondary to statin. Unclear the association of her concomitant tailbone ulcer. MRI T and L-spine with and without contrast ordered. Neurology consult. PTOT evaluation. Ambulate with assistance. Hold [employer] statin. Monitor for improvement. Hyperkalemia, rhabdomyolysis, GIORGI: Received Lokelma, dextrose, insulin, sodium polystyrene. Repeat BMP now. Continue lactated Ringer's at 150 cc/hour. Continue to trend renal function. Trend CK. Hypo magnesemia, replaced. Transaminitis likely related to rhabdomyolysis. Continue to trend. Full code. Accu-Cheks a.c. HS with medium dose insulin sliding scale. SCDs. Hospitalist MIPS Advance Care Plan I have confirmed that the patient's Advanced Care Plan is present, code status is documented, or surrogate decision maker is listed in patient medical record.: Yes Medication Reconciliation I have utilized all available resources to obtain, update and review the patients current medications (includes all prescriptions, OTC, herbals, cannabis, and nutritional supplements).: Yes
[2024-08-30 01:10] LABS: Anion Gap 10 mmol/L (4-12); Blood Urea Nitrogen 42 mg/dL (7-17); Calcium 9.6 mg/dL (8.4-10.2); Carbon Dioxide 14 mmol/L (22-30); Chloride 112 mmol/L (98-107); Estimated CRCL calculation 29 ml/min; Estimated Glomerular Filt Rate 21; Glucose 97 mg/dL (65-110); Magnesium 1.5 mg/dL (1.6-2.3); Potassium 4.7 mmol/L (3.4-5.0); Sodium 136 mmol/L (137-145)
[2024-08-30] MEDS: HYDROcodone/acetaminophen (*CRX) 7.5-325 MG TABLET 1 TAB PO ×3 (01:33→20:32)
[2024-08-30] MEDS: MAGNESIUM SULF 2 GM/WATER 50ML 2 GM/50 ML BAG IVPB (01:34)
[2024-08-30 04:52] LABS: Hematocrit 32.0 % (37.0-47.0); Hemoglobin 10.4 g/dL (12.0-15.0); Immature Granulocyte Percent A 0.3 % (0-0.5); Lymphocytes Absolute Auto 2.10 K/mm3 (0.9-3.2); Mean Corpuscular HGB Conc 32.5 g/dl (32-36); Mean Corpuscular Hemoglobin 28.1 pg (26-34); Mean Corpuscular Volume 86.5 fl (80-100); Nucleated Red Blood Cells Absolute Auto 0.000 K/mm3 (0.0-0.012); Nucleated Red Blood Cells Perc 0.0 % (0.0-0.2); Platelet Count Result 135 k/mm3 (150-375); Red Blood Count 3.70 M/mm3 (4.2-5.4); White Blood Count 6.4 K/mm3 (4.5-10.0)
[2024-08-30 05:04] LABS: Alanine Aminotransferase 170 U/L (6-35); Albumin Level 2.9 g/dL (3.5-5.1); Alkaline Phosphatase 41 U/L (38-126); Anion Gap 9 mmol/L (4-12); Aspartate Amino Transferase 314 U/L (14-36); Bilirubin,Total 0.2 mg/dL (0.2-1.3); Blood Urea Nitrogen 38 mg/dL (7-17); Calcium 9.4 mg/dL (8.4-10.2); Carbon Dioxide 16 mmol/L (22-30); Chloride 113 mmol/L (98-107); Estimated CRCL calculation 31 ml/min; Estimated Glomerular Filt Rate 22; Glucose 102 mg/dL (65-110); Magnesium 2.0 mg/dL (1.6-2.3); Potassium 4.4 mmol/L (3.4-5.0); Sodium 138 mmol/L (137-145); Total Protein 5.4 g/dL (6.3-8.2)
[2024-08-30 06:18] LABS: Creatine Kinase > 8000 U/L (30-135)
[2024-08-30] MEDS: FLUTICASONE/SALMETEROL 230-21 MCG INHALER 1 PUFF 2 PUFF INHALATION ×2 (08:26→19:52)
--- NOTE | 2024-08-30 09:25 | P.CONNP_ITS ---
Assessment and Plan Assessment and plan (1) Acute kidney injury: Code(s): N17.9 - Acute kidney failure, unspecified Status: Acute Assessment and Plan: * as noted on admission * slow improvement noted * suspect secondary to #2 * if fails to improve, then will check renal u/s, urine electrolytes...etc * hold MARGARITA-I * follow trend of renal function and UOP (2) Rhabdomyolysis: Code(s): M62.82 - Rhabdomyolysis Status: Acute Assessment and Plan: * as noted by elevated CPK on admission * however, trending down * presumed etiology of #1 * etiology not clear: * no history of trauma * no history of mmobilization * no crush injuries * no history of seizures * continue IVFs * follow trend of CPK (3) Muscle weakness of lower extremity: Code(s): M62.81 - Muscle weakness (generalized) Status: Acute Assessment and Plan: * presumably related to #2 * presented weakness in the pelvic girdle muscles, mostly in the upper thigh muscles bilaterally * imaging to date noted: * CT of the thoracic spine did not show any H fracture or traumatic malalignment detected in the thoracic spine * CT of the lumbar spine with no evidence of sacral ulcer or 2nd osteomyelitis, Hepatomegaly. Mild body wall edema. Dermal thickening and subcutaneous inflammatory change/edema over the midline lower anterior abdomen, correlate for clinical findings of cellulitis/panniculitis * MRI lumbar and thoracic spine is pending * however, give her history rheumatoid arthritis, cannot discount another autoimmune progress * aldolase, CRP, JERRY, anti Ely, antiRNP, anti SSA and anti SSB and Duran antibody ordered for further assessment * holding statin * started on trial of steroids (4) Abnormal LFTs: Code(s): R79.89 - Other specified abnormal findings of blood chemistry Status: Acute Assessment and Plan: * possibly related to rhabdomyolysis * slow improvement noted * follow trend of LFTs (5) HTN (hypertension): Code(s): I10 - Essential (primary) hypertension Status: Chronic Assessment and Plan: * reasonable control * follow trend of hemodynamics (6) Insulin dependent diabetes mellitus: Status: Chronic Assessment and Plan: * follow accu-cheks * glycemic control per hospitalist I will continue to follow the patient with you while she remains hospitalized and make further recommendations as deemed necessary. Thank you for allowing me to participate in the care of this patient. L History of Present Illness Reason for Consult Consult date: 08/30/24 Reason for consult: acute renal failure Chief Complaint Chief complaint: Rhabdo, GIORGI History of Present Illness Narrative: The patient is a 54 year old female with a past medical history as outlined below who presented to [facility] ER with complaints of bilateral lower extremity weakness. The patient reports having trouble getting up and standing up from a chair, a getting out of a car and even standing up from her bed. The symptoms have been going on for the last 4-5 days. She cannot lift her legs at the hips but has good strength at the knees and ankles and feet and as such she cannot lift herself from a laying position; she also cannot stand up from a bending position. She has to use something to brace and push herself up. She denies any sensory losses or changes in bowel or bladder habits. She reports no issues in the upper extremity either. She denies any fevers, chills, vomiting, diarrhea. She was complaining of generalized weakness. 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 Evaluation in the ER noted stable vital signs without evidence of fever. Routine blood work demonstrated a WBC 9.7, hemoglobin 12, ESR 20, potassium 5.7, chloride 111, bicarb 17, BUN 45, serum creatinine 2.96, AST 500, ALT 233, and a creatinine kinase 16,000. Her urinalysis demonstrated 1+ leukocyte esterase, but no bacteria. She was given 2 L IV fluids along with calcium gluconate, Lokelma, insulin and D50 for treatmetn of her hyperkalemia. She subsequently transferred to the ICU for evaluation and therapy. Since her admission to the ICU, she continued to have weakness in her lower extremities, more so in the proximal muscles and pelvic girdle area. She has no other acute complaints at this time and repeat labs showed improvement in her kidney function, CPK levels, and liver function tests. Renal consultation was requested due to her acute kidney injury/acute renal failure. The patient is somewhat familiar to me as I saw her approximately 2 months ago when she was admitted here to [facility]. At that time, I was consulted because of recurrent hypokalemia. Her hypokalemia at that time was likely do a manifestation of total body store depletion complicated by hypomagnesemia and her admission symptoms of nausea and vomiting. Her potassium level stabilized with oral supplementation with potassium and magnesium. During that hospital stay, her renal function was well within normal limits. As mentioned above, her creatinine on admission was 2.96 mg/dL but has come down to 2 0.26 mg/dL by a.m. labs. Furthermore, her potassium has normalized and her CPK as well as her liver function tests have improved as well. She continues to make fairly good urine output at this time as well. Currently, at the time my evaluation, she appears to be in no acute distress. Review of Systems 2 Review of Systems: As per HPI. REPLACED BY [facility] Past Medical History Medical History (Updated 09/03/24 @ 19:06 by Virgie Johnson MD) Proximal myopathy Lower extremity edema Dyspnea on exertion Pneumonia Rheumatoid arthritis (normal spontaneous vaginal delivery) x2 Status post hysteroscopy 2015 and 2020 Asthma Obesity Iron deficiency anemia Elective Anxiety and depression GERD (gastroesophageal reflux disease) HTN (hypertension) High triglycerides HLD (hyperlipidemia) Diabetes Surgical History Surgical History S/P endometrial ablation 2017 Family History Family History Mother Atrial fibrillation History of open heart surgery Family history of cataracts Hypertension Asthma Grandparent Family history of cardiovascular disease Family history of Alzheimer's disease Family history of coronary artery disease Heart murmur Sibling Heart murmur Social History Social History Smoking packs per day: 1 Smoking cigarettes per day: 20.0 Years smoked: 20 Smoking pack-years: 20.00 Smoking status: Former smoker Tobacco type: cigarettes Smoking end date: 02/16/02 Alcohol intake: never Drinks per week: 2 Substance use: never Do You Feel Safe in your Home?: Yes Lack of Transportation: No Lack of Food: Never True Current Housing: I Have Housing Concerned About Future Housing: No Difficulty Paying Gas/Electric Bills: No Difficulty Paying for Meds: No Currently Unemployed: No Education: High School Diploma/GED Difficulty w/ Childcare or Family Care: No Living arrangements: alone Gender identity (if verbalized by the patient): Female Spiritual care concerns: No Agree to blood products: Yes Meds Home Medications and Allergies Home Medications ?Medication ?Instructions ?Recorded ?Confirmed ?Type aspirin 81 mg capsule 81 mg PO DAILY 12/05/20 08/29/24 History rosuvastatin 40 mg tablet 40 mg PO DAILY 12/05/20 08/29/24 History albuterol sulfate 2.5 mg/3 mL 2.5 mg inhalation Q6H PRN 03/28/21 08/29/24 History (0.083 %) solution for nebulization Shortness Of Breath Or Wheezing ergocalciferol (vitamin D2) 1,250 1,250 mcg PO WEEKLY 03/28/21 08/29/24 History mcg (50,000 unit) capsule trazodone 50 mg tablet 50 mg PO QHS PRN Insomnia 03/28/21 08/29/24 History hydroxychloroquine 200 mg tablet 200 mg PO .q12hr 09/12/22 08/29/24 History Afrin (oxymetazoline) 1 puff intranasal TID PRN 04/06/23 08/29/24 History Congestion ibuprofen 1,600 mg PO BID PRN Headache 04/06/23 08/29/24 History fluticasone propionate 230 2 puff inhalation Q12HRT 30 days 06/03/23 08/29/24 Rx mcg-salmeterol 21 mcg/actuation #60 grams HFA inhaler (Advair HFA) cetirizine 10 mg tablet 10 mg PO DAILY 06/13/24 08/29/24 History cyclobenzaprine 5 mg tablet 5 mg PO TID PRN muscle pain 06/13/24 08/29/24 History dulaglutide 3 mg/0.5 mL 3 mg subcut WEEKLY 06/13/24 08/29/24 History subcutaneous pen injector (Trulicity) escitalopram oxalate 10 mg tablet 10 mg PO DAILY 06/13/24 08/29/24 History famotidine 20 mg tablet 20 mg PO BID PRN acid reflux 06/13/24 08/29/24 History ferrous sulfate 325 mg (65 mg 325 mg PO BID PRN menstrual 06/13/24 08/29/24 History iron) tablet (FeroSul) bleeding fluticasone propionate 50 1 spray intranasal DAILY PRN 06/13/24 08/29/24 History mcg/actuation nasal allergy symptoms spray,suspension hydrocodone 7.5 mg-acetaminophen 1 tablet PO TID PRN pain 06/13/24 08/29/24 History 325 mg tablet insulin lispro 100 unit/mL 50 unit subcut TIDWM 06/13/24 08/29/24 History subcutaneous pen metformin 500 mg tablet,extended 500 mg PO BID 06/13/24 08/29/24 History release 24 hr pregabalin 200 mg capsule 200 mg PO DAILY 06/13/24 08/29/24 History progesterone micronized 100 mg 100 mg PO QPM 06/13/24 08/29/24 History capsule [facility] 06/17/24 08/29/24 Rx Verio test strips) blood-[facility] ([facility] 06/17/24 08/29/24 Rx Verio Flex Meter) carvedilol 12.5 mg tablet (Coreg) 12.5 mg PO Q12HR #60 tabs 06/17/24 08/29/24 Rx hydrochlorothiazide 25 mg tablet 25 mg PO QAM #30 tabs 06/17/24 08/29/24 Rx insulin glargine 100 unit/mL (3 24 unit (0.24 mL) subcut QPM #15 mL 06/17/24 08/29/24 Rx mL) subcutaneous pen (Lantus Solostar U-100 Insulin) insulin syringe,safety needle 0.5 #1 pkg 06/17/24 08/29/24 Rx mL 31 gauge x 5/16 insulin syringe,safety needle 1 mL #1 [facility] 06/17/24 08/29/24 Rx 32 gauge x 5/16 lancets 30 gauge ([facility] pkg 06/17/24 08/29/24 Rx Plus Lancet) pen needle, diabetic 32 gauge x #1 pkg 06/17/24 08/29/24 Rx 1/4 pen needle, diabetic 32 gauge x #1 pkg 06/17/24 08/29/24 Rx 5/32 magnesium oxide 400 mg (241.3 mg 400 mg PO HS #60 tabs 06/30/24 08/29/24 Rx magnesium) tablet ondansetron 4 mg disintegrating 4 mg PO Q8H PRN nausea and 06/30/24 08/29/24 Rx tablet vomiting #60 tabs lisinopril 40 mg tablet 40 mg PO DAILY 08/29/24 08/29/24 History Allergies Allergy/AdvReac Type Severity Reaction Status Date / Time atenolol Allergy Intermediate Chest Pain Verified 06/24/24 09:52 Vital Signs Vital Signs Temp Pulse Resp BP Pulse Ox O2 Del Method 08/30/24 09:20 84 08/30/24 08:31 100 Room Air 08/30/24 08:00 98.3 F 80 13 132/72 100 08/30/24 08:00 80 08/30/24 08:00 77 12 100 Room Air 08/30/24 06:00 98.7 F 77 12 117/77 99 08/30/24 04:00 98.7 F 78 12 123/65 97 08/30/24 04:00 78 08/30/24 04:00 Room Air 08/30/24 02:00 87 13 142/106 H 95 08/30/24 00:00 98.4 F 87 14 157/80 H 97 08/30/24 00:00 87 08/30/24 00:00 Room Air 08/29/24 22:40 98.4 F 86 18 168/97 H 98 Exam 2 Narrative: GENERAL APPEARANCE: well developed well nourished female in no acute distress HEENT: normocephalic, atraumatic, normal conjunctiva and sclera, nares patient NECK: no lymphadenopathy, thyromegaly, or JVD MOUTH: normal lips, teeth, and gums CARDIOVASCULAR: RRR, normal S1 and S2, no rub RESPIRATORY: clear to auscultation bilaterally ABDOMEN: soft, nontender, nondistended, positive bowel sounds present EXTREMITIES: no evidence of cyanosis, clubbing, or edema NEUROLOGICAL: alert and oriented x 3; CN II - XII intact bilaterally; decreased strenght in LEs Results Lab Results 09/03/24 05:47 09/03/24 13:39 Lab results: Calcium 9.4 Magnesium 2.0 Total Bilirubin 0.2 AST 314 H ALT 170 H Alkaline Phosphatase 41 Total Creatine Kinase > 8000 H Total Protein 5.4 L Albumin 2.9 L
[2024-08-30] MEDS: PREGABALIN (*CRX) 50 MG CAPSULE 200 MG PO (09:27)
[2024-08-30] MEDS: INSULIN ASPART (*BKC) 100 UNITS/ML SUB-Q ×3 (09:27→20:21)
--- NOTE | 2024-08-30 09:27 | WPDCNINT ---
Assessment and Plan Assessment and plan (1) Muscle weakness of lower extremity: Code(s): M62.81 - Muscle weakness (generalized) Status: Acute Assessment and Plan: Patient presented with weakness in the pelvic girdle muscles, mostly in the upper thigh muscles bilaterally flexion of the knee joints, ankle joints or muscle strength head and lower extremities below the knee. -patient has a history of rheumatoid arthritis, could have anemia altered remained disease such as polymyositis. - T of the thoracic spine did not show any H fracture or traumatic malalignment detected in the thoracic spine -CT of the lumbar spine with no evidence of sacral ulcer or 2nd osteomyelitis, Hepatomegaly. Mild body wall edema. Dermal thickening and subcutaneous inflammatory change/edema over the midline lower anterior abdomen, correlate for clinical findings of cellulitis/panniculitis. -MRI lumbar and thoracic spine is pending -I have ordered aldolase, CRP, JERRY, anti Ely, anti for BOX TENDER, anti SSA and anti SSB and Duran antibody (2) Rhabdomyolysis: Code(s): M62.82 - Rhabdomyolysis Status: Acute Assessment and Plan: Patient with rhabdomyolysis likely related to above -no history of trauma, immobilization, crush injuries, seizures -CK levels trending down, continue to hydrate with IV fluids -monitor CK level (3) GIORGI (acute kidney injury): Code(s): N17.9 - Acute kidney failure, unspecified Status: Acute Assessment and Plan: Acute kidney injury likely related to rhabdomyolysis -creatinine on admission was 2.96 (baseline creatinine give 0.5-0.7) -continue maintenance IV fluids -continue to monitor urine output, renal function electrolytes -nephrology following -will start of nephrotoxic medications (4) Abnormal LFTs: Code(s): R79.89 - Other specified abnormal findings of blood chemistry Status: Acute Assessment and Plan: Could be related to rhabdomyolysis -LFTs trending down, continue to my (5) HTN (hypertension): Code(s): I10 - Essential (primary) hypertension Status: Chronic Assessment and Plan: Blood pressures are stable at this time (6) HLD (hyperlipidemia): Code(s): E78.5 - Hyperlipidemia, unspecified Status: Chronic Assessment and Plan: Will hold statins due to proximal muscle weakness of the thighs (7) Insulin dependent diabetes mellitus: Status: Chronic Assessment and Plan: Continue sliding scale insulin Accu-Cheks - continue Lantus Plan DVT prophylaxis: Heparin subQ Stress ulcer prophylaxis: Not indicated Nutrition: Diabetic diet Code Status: Full code Critical Care Time Spent: 48 minutes Due to a high probability of clinically significant, life threatening deterioration, the patient required my highest level of preparedness to intervene emergently and I personally spent this critical care time directly and personally managing the patient. This critical care time included obtaining a history; examining the patient; pulse oximetry; ordering and review of studies; arranging urgent treatment with development of a management plan; evaluation of patient's response to treatment; frequent reassessment; and discussions with other providers. It was exclusive of separately billable procedures and treating other patients and teaching time. Please see Assessment and Plan section and the rest of the note for further information on patient assessment and treatment This dictation may have been done utilizing a voice recognition system. Attempts have been made to correct errors. However, there may be uncorrected grammatical, spelling, and recognitions errors present. Director Call Center Sales Consult Note Consult date: 08/30/24 Reason for consult: Weakness, Rhabdomyolysis, proximal pelvic girdle muscle weakness/? Polymyositis, elevated LFTs, acute kidney injury HPI: Regina Howell is a 54 year old female with significant past medical history of pneumonia, rheumatoid arthritis, iron deficiency anemia, asthma, obesity, anxiety and depression, GERD, essential hypertension, diabetes, hyperlipidemia presented the ED on 08/29/2024 with complaints of bilateral proximal lower extremity weakness, patient is having trouble getting up and standing up from a chair, a getting out of a car and even standing up from her bed. 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 The symptoms have been going on for the last 4-5 days. She cannot lift her legs at the hips but has good strength at the knees and ankles and feet and as such she cannot lift herself from a laying position also cannot stand up from a bending position. She has to use something to brace and push herself up. No sensory losses, no changes in bowel or bladder habits. No issues in the upper extremity denies any fevers, chills, vomiting, diarrhea. She was complaining of generalized weakness. In the ED labs were: WBC 9.7, hemoglobin 12, ESR 20, potassium 5.7, chloride 111, bicarb 17, BUN 45, serum creatinine 2.96. AST 500, ALT 233, creatinine kinase 16,000. Urinalysis demonstrating 1+ leukocyte esterase, no bacteria. Patient was given 2 L IV fluids along with calcium gluconate, Lokelma, insulin and D50 for hyperkalemia was also given in the ED. Started on ceftriaxone and transferred the ICU for further management. Patient seen and examined the ICU this morning, above history was obtained from the patient. She continues to have weakness in her pelvic girdle. She denies any alcohol, tobacco or illicit drug use at this time. She quit smoking 20 years back. 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 States she feels fine at this time. Afebrile, hemodynamically stable, adequate urine output, renal function improving, CK levels trending down. Remains on IV fluids. Denies any chest pain, shortness a breath, abdominal pain, nausea, vomiting Review of Systems Review of Systems: All systems reviewed & are unremarkable except as noted in HPI and below PMFSH Past Medical History Medical History Lower extremity edema Dyspnea on exertion Pneumonia Rheumatoid arthritis (normal spontaneous vaginal delivery) x2 Status post hysteroscopy 2015 and 2020 Asthma Obesity Iron deficiency anemia Elective Anxiety and depression GERD (gastroesophageal reflux disease) HTN (hypertension) High triglycerides HLD (hyperlipidemia) Diabetes Surgical History Surgical History S/P endometrial ablation 2017 Family History Family History Mother Atrial fibrillation History of open heart surgery Family history of cataracts Hypertension Asthma Grandparent Family history of cardiovascular disease Family history of Alzheimer's disease Family history of coronary artery disease Heart murmur Sibling Heart murmur Social History Social History Smoking packs per day: 1 Smoking cigarettes per day: 20.0 Years smoked: 20 Smoking pack-years: 20.00 Smoking status: Former smoker Tobacco type: cigarettes Smoking end date: 02/16/02 Alcohol intake: never Drinks per week: 2 Substance use: never Do You Feel Safe in your Home?: Yes Lack of Transportation: No Lack of Food: Never True Current Housing: I Have Housing Concerned About Future Housing: No Difficulty Paying Gas/Electric Bills: No Difficulty Paying for Meds: No Currently Unemployed: No Education: High School Diploma/GED Difficulty w/ Childcare or Family Care: No Living arrangements: alone Gender identity (if verbalized by the patient): Female Spiritual care concerns: No Agree to blood products: Yes Meds Home Medications and Allergies Home Medications ?Medication ?Instructions ?Recorded ?Confirmed ?Type aspirin 81 mg capsule 81 mg PO DAILY 12/05/20 08/29/24 History rosuvastatin 40 mg tablet 40 mg PO DAILY 12/05/20 08/29/24 History albuterol sulfate 2.5 mg/3 mL 2.5 mg inhalation Q6H PRN 03/28/21 08/29/24 History (0.083 %) solution for nebulization Shortness Of Breath Or Wheezing ergocalciferol (vitamin D2) 1,250 1,250 mcg PO WEEKLY 03/28/21 08/29/24 History mcg (50,000 unit) capsule trazodone 50 mg tablet 50 mg PO QHS PRN Insomnia 03/28/21 08/29/24 History hydroxychloroquine 200 mg tablet 200 mg PO .q12hr 09/12/22 08/29/24 History Afrin (oxymetazoline) 1 puff intranasal TID PRN 04/06/23 08/29/24 History Congestion ibuprofen 1,600 mg PO BID PRN Headache 04/06/23 08/29/24 History fluticasone propionate 230 2 puff inhalation Q12HRT 30 days 06/03/23 08/29/24 Rx mcg-salmeterol 21 mcg/actuation #60 grams HFA inhaler (Advair HFA) cetirizine 10 mg tablet 10 mg PO DAILY 06/13/24 08/29/24 History cyclobenzaprine 5 mg tablet 5 mg PO TID PRN muscle pain 06/13/24 08/29/24 History dulaglutide 3 mg/0.5 mL 3 mg subcut WEEKLY 06/13/24 08/29/24 History subcutaneous pen injector (Trulicity) escitalopram oxalate 10 mg tablet 10 mg PO DAILY 06/13/24 08/29/24 History famotidine 20 mg tablet 20 mg PO BID PRN acid reflux 06/13/24 08/29/24 History ferrous sulfate 325 mg (65 mg 325 mg PO BID PRN menstrual 06/13/24 08/29/24 History iron) tablet (FeroSul) bleeding fluticasone propionate 50 1 spray intranasal DAILY PRN 06/13/24 08/29/24 History mcg/actuation nasal allergy symptoms spray,suspension hydrocodone 7.5 mg-acetaminophen 1 tablet PO TID PRN pain 06/13/24 08/29/24 History 325 mg tablet insulin lispro 100 unit/mL 50 unit subcut TIDWM 06/13/24 08/29/24 History subcutaneous pen metformin 500 mg tablet,extended 500 mg PO BID 06/13/24 08/29/24 History release 24 hr pregabalin 200 mg capsule 200 mg PO DAILY 06/13/24 08/29/24 History progesterone micronized 100 mg 100 mg PO QPM 06/13/24 08/29/24 History capsule blood sugar diagnostic (Orbit Mediauch #1 [facility] 06/17/24 08/29/24 Rx Verio test strips) blood-glucose meter (Orbit [employer]uch #1 [facility] 06/17/24 08/29/24 Rx Verio Flex Meter) carvedilol 12.5 mg tablet (Coreg) 12.5 mg PO Q12HR #60 tabs 06/17/24 08/29/24 Rx hydrochlorothiazide 25 mg tablet 25 mg PO QAM #30 tabs 06/17/24 08/29/24 Rx insulin glargine 100 unit/mL (3 24 unit (0.24 mL) subcut QPM #15 mL 06/17/24 08/29/24 Rx mL) subcutaneous pen (Lantus Solostar U-100 Insulin) insulin syringe,safety needle 0.5 #1 pkg 06/17/24 08/29/24 Rx mL 31 gauge x 5/16 insulin syringe,safety needle 1 mL #1 [facility] 06/17/24 08/29/24 Rx 32 gauge x 5/16 lancets 30 gauge (Orbit MediaTouch Delica #1 pkg 06/17/24 08/29/24 Rx Plus Lancet) pen needle, diabetic 32 gauge x #1 pkg 06/17/24 08/29/24 Rx 1/4 pen needle, diabetic 32 gauge x #1 pkg 06/17/24 08/29/24 Rx 5/32 magnesium oxide 400 mg (241.3 mg 400 mg PO HS #60 tabs 06/30/24 08/29/24 Rx magnesium) tablet ondansetron 4 mg disintegrating 4 mg PO Q8H PRN nausea and 06/30/24 08/29/24 Rx tablet vomiting #60 tabs lisinopril 40 mg tablet 40 mg PO DAILY 08/29/24 08/29/24 History Allergies Allergy/AdvReac Type Severity Reaction Status Date / Time atenolol Allergy Intermediate Chest Pain Verified 06/24/24 09:52 Vital Signs Vital Signs - 24 hr 08/29/24 14:14 08/29/24 17:02 08/29/24 19:20 Temperature 98.3 F Pulse Rate 86 75 83 Respiratory Rate 18 16 16 Blood Pressure 153/81 H 155/76 H 149/71 H Pulse Oximetry 99 100 99 Oxygen Delivery 08/29/24 22:40 08/30/24 00:00 08/30/24 00:00 Temperature 98.4 F Pulse Rate 86 87 Respiratory Rate 18 Blood Pressure 168/97 H Pulse Oximetry 98 Oxygen Delivery Room Air 08/30/24 00:00 08/30/24 02:00 08/30/24 04:00 Temperature 98.4 F Pulse Rate 87 87 Respiratory Rate 14 13 Blood Pressure 157/80 H 142/106 H Pulse Oximetry 97 95 Oxygen Delivery Room Air 08/30/24 04:00 08/30/24 04:00 08/30/24 06:00 Temperature 98.7 F 98.7 F Pulse Rate 78 78 77 Respiratory Rate 12 12 Blood Pressure 123/65 117/77 Pulse Oximetry 97 99 Oxygen Delivery 08/30/24 08:00 08/30/24 08:00 08/30/24 08:00 Temperature 98.3 F Pulse Rate 77 80 80 Respiratory Rate 12 13 Blood Pressure 132/72 Pulse Oximetry 100 100 Oxygen Delivery Room Air 08/30/24 08:31 Temperature Pulse Rate Respiratory Rate Blood Pressure Pulse Oximetry 100 Oxygen Delivery Room Air Exam Narrative: General: Pleasant female in no acute distress HEENT:? Pupils equal and reactive, sclerae is clear Neck:? Supple Respiratory:? Clear to auscultation bilaterally, no wheezing, adequate air entry Cardiac:? S1-S2 is normal, regular rate and rhythm Abdomen:? Soft, nontender, nondistended, obese, normoactive bowel sounds Extremities:? Strength at shoulder, elbow and wrist on are normal. Strength at ankle and knee joint is normal, strength at hip joint is 2/5, sensations are intact Neuro:? Patient is awake, alert, oriented x3, Skin:? No lesions noted Psych:? Normal mentation and affect Results Labs 08/30/24 04:35 08/30/24 04:35 Labs: Short CBC 08/29/24 08/30/24 Range/Units 17:17 04:35 WBC 9.7 6.4 (4.5-10.0) K/mm3 Hgb 12.0 10.4 L (12.0-15.0) g/dL Hct 37.3 32.0 L (37.0-47.0) % Plt Count 168 135 L (150-375) k/mm3 BMP 08/29/24 08/30/24 08/30/24 17:17 00:41 04:35 Sodium 138 136 L 138 Potassium 5.7 H 4.7 4.4 Chloride 111 H 112 H 113 H Carbon Dioxide 17 L 14 L 16 L BUN 45 H D 42 H 38 H Creatinine 2.96 H 2.43 H 2.26 H Glucose 83 97 102 Calcium 9.5 9.6 9.4 Cardiac Enzymes 08/29/24 08/30/24 Range/Units 17:17 04:35 Total Creatine Kinase > 46253 H > 8000 H (30-135) U/L Liver Function 08/29/24 08/30/24 Range/Units 17:17 04:35 Total Bilirubin 0.3 0.2 (0.2-1.3) mg/dL AST 500 H 314 H (14-36) U/L ALT 223 H 170 H (6-35) U/L Alkaline Phosphatase 48 41 (38-126) U/L Albumin 3.7 2.9 L (3.5-5.1) g/dL Urine 08/29/24 Range/Units 16:43 Urine Color Yellow (Yellow) Urine Appearance Cloudy H (Clear) Urine pH 5.5 (5.0-9.0) Ur Specific Donnelly 1.018 (1.001-1.035) Urine Protein 3+ H (Negative) mg/dL Urine Glucose (UA) Negative (Negative) mg/dL Quality VTE Prophylaxis VTE prophylaxis: pharmacologic ordered Hospitalist MIPS Advance Care Plan I have confirmed that the patient's Advanced Care Plan is present, code status is documented, or surrogate decision maker is listed in patient medical record.: Yes Medication Reconciliation I have utilized all available resources to obtain, update and review the patients current medications (includes all prescriptions, OTC, herbals, cannabis, and nutritional supplements).: Yes
[2024-08-30] MEDS: HYDROXYCHLOROQUINE SULFATE 200 MG TABLET PO ×2 (09:28→20:21)
[2024-08-30] MEDS: LORATADINE 10 MG TABLET PO (09:28)
[2024-08-30] MEDS: ACETAMINOPHEN 325 MG TABLET 650 MG PO (09:28)
[2024-08-30] MEDS: ASPIRIN 81 MG ENTERIC TABLET PO (09:29)
[2024-08-30] MEDS: ESCITALOPRAM OXALATE 10 MG TABLET PO (09:29)
--- NOTE | 2024-08-30 09:31 | CONS_ITS ---
Document was cancelled by mistake by Dr. Marino on 08/30/24.. Report was transcribed as a new report. Assessment and Plan Assessment and plan (1) Muscle weakness of lower extremity: Code(s): M62.81 - Muscle weakness (generalized) Status: Acute Assessment and Plan: Patient presented with weakness in the pelvic girdle muscles, mostly in the upper thigh muscles bilaterally. - flexion of the knee joints, ankle joints and muscle strength is normal in extremities below the knees. -patient has a history of rheumatoid arthritis, patient could have an autoimmune disease such as polymyositis. - CT of the thoracic spine did not show any H fracture or traumatic malalignment detected in the thoracic spine -CT of the lumbar spine with no evidence of sacral ulcer or 2nd osteomyelitis, Hepatomegaly. Mild body wall edema. Dermal thickening and subcutaneous inflammatory change/edema over the midline lower anterior abdomen, correlate for clinical findings of cellulitis/panniculitis. -MRI lumbar and thoracic spine is pending -I have ordered aldolase, CRP, JERRY, anti Ely, anti for MERCHANDISE APPRAISER, anti SSA and anti SSB and Duran antibody (2) Rhabdomyolysis: Code(s): M62.82 - Rhabdomyolysis Status: Acute Assessment and Plan: Patient with rhabdomyolysis likely related to above -no history of trauma, immobilization, crush injuries, seizures -CK levels trending down, continue to hydrate with IV fluids -monitor CK level (3) GIORGI (acute kidney injury): Code(s): N17.9 - Acute kidney failure, unspecified Status: Acute Assessment and Plan: Acute kidney injury likely related to rhabdomyolysis -creatinine on admission was 2.96 (baseline creatinine give 0.5-0.7) -continue maintenance IV fluids -continue to monitor urine output, renal function electrolytes -discussed with Nephrology -avoid all nephrotoxic medications (4) Abnormal LFTs: Code(s): R79.89 - Other specified abnormal findings of blood chemistry Status: Acute Assessment and Plan: Could be related to rhabdomyolysis -LFTs trending down, continue to my (5) HTN (hypertension): Code(s): I10 - Essential (primary) hypertension Status: Chronic Assessment and Plan: Blood pressures are stable at this time (6) HLD (hyperlipidemia): Code(s): E78.5 - Hyperlipidemia, unspecified Status: Chronic Assessment and Plan: Will hold statins due to proximal muscle weakness of the thighs (7) Insulin dependent diabetes mellitus: Status: Chronic Assessment and Plan: Continue sliding scale insulin Accu-Cheks - continue Lantus Plan DVT prophylaxis: Heparin subQ Stress ulcer prophylaxis: Not indicated Nutrition: Diabetic diet Code Status: Full code Critical Care Time Spent: 48 minutes Due to a high probability of clinically significant, life threatening deterioration, the patient required my highest level of preparedness to intervene emergently and I personally spent this critical care time directly and personally managing the patient. This critical care time included obtaining a history; examining the patient; pulse oximetry; ordering and review of studies; arranging urgent treatment with development of a management plan; evaluation of patient's response to treatment; frequent reassessment; and discussions with other providers. It was exclusive of separately billable procedures and treating other patients and teaching time. Please see Assessment and Plan section and the rest of the note for further information on patient assessment and treatment This dictation may have been done utilizing a voice recognition system. Attempts have been made to correct errors. However, there may be uncorrected grammatical, spelling, and recognitions errors present. 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 Polymyositis, elevated LFTs, acute kidney injury HPI: Regina Howell is a 54 year old female with significant past medical history of pneumonia, rheumatoid arthritis, iron deficiency anemia, asthma, obesity, anxiety and depression, GERD, essential hypertension, diabetes, hyperlipidemia presented the ED on 08/29/2024 with complaints of bilateral proximal lower extremity weakness, patient is having trouble getting up and standing up from a chair, a getting out of a car and even standing up from her bed. 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 The symptoms have been going on for the last 4-5 days. She cannot lift her legs at the hips but has good strength at the knees and ankles and feet and as such she cannot lift herself from a laying position also cannot stand up from a bending position. She has to use something to brace and push herself up. No sensory losses, no changes in bowel or bladder habits. No issues in the upper extremity denies any fevers, chills, vomiting, diarrhea. She was complaining of generalized weakness. In the ED labs were: WBC 9.7, hemoglobin 12, ESR 20, potassium 5.7, chloride 111, bicarb 17, BUN 45, serum creatinine 2.96. AST 500, ALT 233, creatinine kinase 16,000. Urinalysis demonstrating 1+ leukocyte esterase, no bacteria. Patient was given 2 L IV fluids along with calcium gluconate, Lokelma, insulin and D50 for hyperkalemia was also given in the ED. Started on ceftriaxone and transferred the ICU for further management. Patient seen and examined the ICU this morning, above history was obtained from the patient. She continues to have weakness in her pelvic girdle. She denies any alcohol, tobacco or illicit drug use at this time. She quit smoking 20 years back. She does have a activity specialist that she used to follow, now her primary care doctor manages her rheumatoid arthritis. States she feels fine at this time. Afebrile, hemodynamically stable, adequate urine output, renal function improving, CK levels trending down. Remains on IV fluids. Denies any chest pain, shortness a breath, abdominal pain, nausea, vomiting Review of Systems 2 Review of Systems: All systems reviewed & are unremarkable except as noted in HPI and below PMFSH Past Medical History Medical History Lower extremity edema Dyspnea on exertion Pneumonia Rheumatoid arthritis (normal spontaneous vaginal delivery) x2 Status post hysteroscopy 2015 and 2020 Asthma Obesity Iron deficiency anemia Elective Anxiety and depression GERD (gastroesophageal reflux disease) HTN (hypertension) High triglycerides HLD (hyperlipidemia) Diabetes Surgical History Surgical History S/P endometrial ablation 2017 Family History Family History Mother Atrial fibrillation History of open heart surgery Family history of cataracts Hypertension Asthma Grandparent Family history of cardiovascular disease Family history of Alzheimer's disease Family history of coronary artery disease Heart murmur Sibling Heart murmur Social History Social History Smoking packs per day: 1 Smoking cigarettes per day: 20.0 Years smoked: 20 Smoking pack-years: 20.00 Smoking status: Former smoker Tobacco type: cigarettes Smoking end date: 02/16/02 Alcohol intake: never Drinks per week: 2 Substance use: never Do You Feel Safe in your Home?: Yes Lack of Transportation: No Lack of Food: Never True Current Housing: I Have Housing Concerned About Future Housing: No Difficulty Paying Gas/Electric Bills: No Difficulty Paying for Meds: No Currently Unemployed: No Education: High School Diploma/GED Difficulty w/ Childcare or Family Care: No Living arrangements: alone Gender identity (if verbalized by the patient): Female Spiritual care concerns: No Agree to blood products: Yes Meds Home Medications and Allergies Home Medications ?Medication ?Instructions ?Recorded ?Confirmed ?Type aspirin 81 mg capsule 81 mg PO DAILY 12/05/20 08/29/24 History rosuvastatin 40 mg tablet 40 mg PO DAILY 12/05/20 08/29/24 History albuterol sulfate 2.5 mg/3 mL 2.5 mg inhalation Q6H PRN 03/28/21 08/29/24 History (0.083 %) solution for nebulization Shortness Of Breath Or Wheezing ergocalciferol (vitamin D2) 1,250 1,250 mcg PO WEEKLY 03/28/21 08/29/24 History mcg (50,000 unit) capsule trazodone 50 mg tablet 50 mg PO QHS PRN Insomnia 03/28/21 08/29/24 History hydroxychloroquine 200 mg tablet 200 mg PO .q12hr 09/12/22 08/29/24 History Afrin (oxymetazoline) 1 puff intranasal TID PRN 04/06/23 08/29/24 History Congestion ibuprofen 1,600 mg PO BID PRN Headache 04/06/23 08/29/24 History fluticasone propionate 230 2 puff inhalation Q12HRT 30 days 06/03/23 08/29/24 Rx mcg-salmeterol 21 mcg/actuation #60 grams HFA inhaler (Advair HFA) cetirizine 10 mg tablet 10 mg PO DAILY 06/13/24 08/29/24 History cyclobenzaprine 5 mg tablet 5 mg PO TID PRN muscle pain 06/13/24 08/29/24 History dulaglutide 3 mg/0.5 mL 3 mg subcut WEEKLY 06/13/24 08/29/24 History subcutaneous pen injector (Trulicity) escitalopram oxalate 10 mg tablet 10 mg PO DAILY 06/13/24 08/29/24 History famotidine 20 mg tablet 20 mg PO BID PRN acid reflux 06/13/24 08/29/24 History ferrous sulfate 325 mg (65 mg 325 mg PO BID PRN menstrual 06/13/24 08/29/24 History iron) tablet (FeroSul) bleeding fluticasone propionate 50 1 spray intranasal DAILY PRN 06/13/24 08/29/24 History mcg/actuation nasal allergy symptoms spray,suspension hydrocodone 7.5 mg-acetaminophen 1 tablet PO TID PRN pain 06/13/24 08/29/24 History 325 mg tablet insulin lispro 100 unit/mL 50 unit subcut TIDWM 06/13/24 08/29/24 History subcutaneous pen metformin 500 mg tablet,extended 500 mg PO BID 06/13/24 08/29/24 History release 24 hr pregabalin 200 mg capsule 200 mg PO DAILY 06/13/24 08/29/24 History progesterone micronized 100 mg 100 mg PO QPM 06/13/24 08/29/24 History capsule blood sugar diagnostic (Colizeruch #1 pkg 06/17/24 08/29/24 Rx Verio test strips) blood-glucose meter (ColizerTouch #1 pkg 06/17/24 08/29/24 Rx Verio Flex Meter) carvedilol 12.5 mg tablet (Coreg) 12.5 mg PO Q12HR #60 tabs 06/17/24 08/29/24 Rx hydrochlorothiazide 25 mg tablet 25 mg PO QAM #30 tabs 06/17/24 08/29/24 Rx insulin glargine 100 unit/mL (3 24 unit (0.24 mL) subcut QPM #15 mL 06/17/24 08/29/24 Rx mL) subcutaneous pen (Lantus Solostar U-100 Insulin) insulin syringe,safety needle 0.5 #1 pkg 06/17/24 08/29/24 Rx mL 31 gauge x 5/16 insulin syringe,safety needle 1 mL #1 pkg 06/17/24 08/29/24 Rx 32 gauge x 5/16 lancets 30 gauge (ColizerTouch Delica #1 pkg 06/17/24 08/29/24 Rx Plus Lancet) pen needle, diabetic 32 gauge x #1 pkg 06/17/24 08/29/24 Rx 1/4 pen needle, diabetic 32 gauge x #1 pkg 06/17/24 08/29/24 Rx /32 magnesium oxide 400 mg (241.3 mg 400 mg PO HS #60 tabs 06/30/24 08/29/24 Rx magnesium) tablet ondansetron 4 mg disintegrating 4 mg PO Q8H PRN nausea and 06/30/24 08/29/24 Rx tablet vomiting #60 tabs lisinopril 40 mg tablet 40 mg PO DAILY 08/29/24 08/29/24 History Allergies Allergy/AdvReac Type Severity Reaction Status Date / Time atenolol Allergy Intermediate Chest Pain Verified 06/24/24 09:52 Vital Signs Vital Signs - 24 hr 08/29/24 14:14 08/29/24 17:02 08/29/24 19:20 Temperature 98.3 F Pulse Rate 86 75 83 Respiratory Rate 18 16 16 Blood Pressure 153/81 H 155/76 H 149/71 H Pulse Oximetry 99 100 99 Oxygen Delivery 08/29/24 22:40 08/30/24 00:00 08/30/24 00:00 Temperature 98.4 F Pulse Rate 86 87 Respiratory Rate 18 Blood Pressure 168/97 H Pulse Oximetry 98 Oxygen Delivery Room Air 08/30/24 00:00 08/30/24 02:00 08/30/24 04:00 Temperature 98.4 F Pulse Rate 87 87 Respiratory Rate 14 13 Blood Pressure 157/80 H 142/106 H Pulse Oximetry 97 95 Oxygen Delivery Room Air 08/30/24 04:00 08/30/24 04:00 08/30/24 06:00 Temperature 98.7 F 98.7 F Pulse Rate 78 78 77 Respiratory Rate 12 12 Blood Pressure 123/65 117/77 Pulse Oximetry 97 99 Oxygen Delivery 08/30/24 08:00 08/30/24 08:00 08/30/24 08:00 Temperature 98.3 F Pulse Rate 77 80 80 Respiratory Rate 12 13 Blood Pressure 132/72 Pulse Oximetry 100 100 Oxygen Delivery Room Air 08/30/24 08:31 Temperature Pulse Rate Respiratory Rate Blood Pressure Pulse Oximetry 100 Oxygen Delivery Room Air Exam 2 Narrative: General: Pleasant female in no acute distress HEENT:? Pupils equal and reactive, sclerae is clear Neck:? Supple Respiratory:? Clear to auscultation bilaterally, no wheezing, adequate air entry Cardiac:? S1-S2 is normal, regular rate and rhythm Abdomen:? Soft, nontender, nondistended, obese, normoactive bowel sounds Extremities:? Strength at shoulder, elbow and wrist on are normal. Strength at ankle and knee joint is normal, strength at hip joint is 2/5, sensations are intact Neuro:? Patient is awake, alert, oriented x3, Skin:? No lesions noted Psych:? Normal mentation and affect Results Labs 08/30/24 04:35 08/30/24 04:35 Labs: Short CBC 08/29/24 08/30/24 Range/Units 17:17 04:35 WBC 9.7 6.4 (4.5-10.0) K/mm3 Hgb 12.0 10.4 L (12.0-15.0) g/dL Hct 37.3 32.0 L (37.0-47.0) % Plt Count 168 135 L (150-375) k/mm3 BMP 08/29/24 08/30/24 08/30/24 17:17 00:41 04:35 Sodium 138 136 L 138 Potassium 5.7 H 4.7 4.4 Chloride 111 H 112 H 113 H Carbon Dioxide 17 L 14 L 16 L BUN 45 H D 42 H 38 H Creatinine 2.96 H 2.43 H 2.26 H Glucose 83 97 102 Calcium 9.5 9.6 9.4 Cardiac Enzymes 08/29/24 08/30/24 Range/Units 17:17 04:35 Total Creatine Kinase > 05569 H > 8000 H (30-135) U/L Liver Function 08/29/24 08/30/24 Range/Units 17:17 04:35 Total Bilirubin 0.3 0.2 (0.2-1.3) mg/dL AST 500 H 314 H (14-36) U/L ALT 223 H 170 H (6-35) U/L Alkaline Phosphatase 48 41 (38-126) U/L Albumin 3.7 2.9 L (3.5-5.1) g/dL Urine 08/29/24 Range/Units 16:43 Urine Color Yellow (Yellow) Urine Appearance Cloudy H (Clear) Urine pH 5.5 (5.0-9.0) Ur Specific [place] 1.018 (1.001-1.035) Urine Protein 3+ H (Negative) mg/dL Urine Glucose (UA) Negative (Negative) mg/dL Quality VTE Prophylaxis VTE prophylaxis: pharmacologic ordered Hospitalist MIPS Advance Care Plan I have confirmed that the patient's Advanced Care Plan is present, code status is documented, or surrogate decision maker is listed in patient medical record.: Yes Medication Reconciliation I have utilized all available resources to obtain, update and review the patients current medications (includes all prescriptions, OTC, herbals, cannabis, and nutritional supplements).: Yes Please be advised this is a medical document. It is intended for [id number] communication. It is written in medical language and may contain unfamiliar abbreviations or verbiage. Medical documents are intended to carry relevant information, facts as evident, and the clinical opinion of the practitioner at the time of the encounter. This report may have been done utilizing a voice recognition system. Attempts have been made to correct errors. However, there may be uncorrected grammatical, spelling, and recognition errors present. The file time of this note does not necessarily represent the time the patient was seen. Report Initialized date/time: Stas Marino MD 08/30/24930 Electronically signed by:
[2024-08-30 09:53] LABS: CRP < 0.5 mg/dL (<1.0)
--- NOTE | 2024-08-30 11:36 | WPDNEURCNPN ---
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 Myopathy more proximal than distal 2. Insulin-dependent diabetes mellitus 3. Rheumatoid arthritis 4 history of treatment with the anticholesterol medication with the possibility of side effect related to the anticholesterol medication. 5. Considering the remote possibility of the spinal axis involvement MRI of the cervical thoracic and lumbar spine also done . Consult date: 09/05/24 HPI: Regina Howell is a 54 year old female admitted to the hospital through the emergency room for the complaints of weakness of both lower extremities of 4 days duration with inability to stand from the sitting position or lifting the lower extremities high and to get into her car. She gave no history of fever or chills, though she does have ongoing history of rheumatoid arthritis but she has never had any symptoms like this but. She did notice small ulcer to her lower back which hurts. Her medications include aspirin 81mg daily, rosuvastatin 40mg weekly trazodone 50mg HS p.r.n., hydroxychloroquine 200mg q.12 hours, cyclobenzaprine 5mg 3 times a day p.r.n. along with the ibuprofen p.r.n., Trulicity 3mg subQ weekly, E citalopram 10mg daily, insulin 50units subQ 3 times a day with meals, metformin 500mg b.i.d., Lyrica 200mg daily, she is allergic to atenolol, has ongoing history of 1. Hypertension 2. Hyper triglyceridemia 3. GERD and 4. Diabetes mellitus 5. History of years smoked 20, his smoking pack years 20, former smoker, alcohol 2 drinks per week, on initial exam in the ER she was able to lift above head but noted to have weakness of the hip flexors. Routine lab studies included normal WBC count with hemoglobin only 10.4, sed rate only 21 and has the same sed rate in August of 2024 as well in the range of 20, her BUN 38 with creatinine of 2.26 and GFR only 22, thoracic spine CT scan negative, chest x-ray negative, MRI of the brain in June of this year compatible with chronic small vessel ischemic disease but no major stroke. Review of Systems Review of Systems: All systems reviewed & are unremarkable except as noted in HPI and below [facility] Past Medical History Medical History Proximal myopathy Lower extremity edema Dyspnea on exertion Pneumonia Rheumatoid arthritis (normal spontaneous vaginal delivery) x2 Status post hysteroscopy 2015 and 2020 Asthma Obesity Iron deficiency anemia Elective Anxiety and depression GERD (gastroesophageal reflux disease) HTN (hypertension) High triglycerides HLD (hyperlipidemia) Diabetes Surgical History Surgical History S/P endometrial ablation 2017 Family History Family History Mother Atrial fibrillation History of open heart surgery Family history of cataracts Hypertension Asthma Grandparent Family history of cardiovascular disease Family history of Alzheimer's disease Family history of coronary artery disease Heart murmur Sibling Heart murmur Social History Social History Smoking packs per day: 1 Smoking cigarettes per day: 20.0 Years smoked: 20 Smoking pack-years: 20.00 Smoking status: Former smoker Tobacco type: cigarettes Smoking end date: 02/16/02 Alcohol intake: never Drinks per week: 2 Substance use: never Do You Feel Safe in your Home?: Yes Lack of Transportation: No Lack of Food: Never True Current Housing: I Have Housing Concerned About Future Housing: No Difficulty Paying Gas/Electric Bills: No Difficulty Paying for Meds: No Currently Unemployed: No Education: High School Diploma/GED Difficulty w/ Childcare or Family Care: No Living arrangements: alone Gender identity (if verbalized by the patient): Female Spiritual care concerns: No Agree to blood products: Yes Meds Home Medications and Allergies Home Medications ?Medication ?Instructions ?Recorded ?Confirmed ?Type aspirin 81 mg capsule 81 mg PO DAILY 12/05/20 08/29/24 History rosuvastatin 40 mg tablet 40 mg PO DAILY 12/05/20 08/29/24 History albuterol sulfate 2.5 mg/3 mL 2.5 mg inhalation Q6H PRN 03/28/21 08/29/24 History (0.083 %) solution for nebulization Shortness Of Breath Or Wheezing ergocalciferol (vitamin D2) 1,250 1,250 mcg PO WEEKLY 03/28/21 08/29/24 History mcg (50,000 unit) capsule trazodone 50 mg tablet 50 mg PO QHS PRN Insomnia 03/28/21 08/29/24 History hydroxychloroquine 200 mg tablet 200 mg PO .q12hr 09/12/22 08/29/24 History Afrin (oxymetazoline) 1 puff intranasal TID PRN 04/06/23 08/29/24 History Congestion ibuprofen 1,600 mg PO BID PRN Headache 04/06/23 08/29/24 History fluticasone propionate 230 2 puff inhalation Q12HRT 30 days 06/03/23 08/29/24 Rx mcg-salmeterol 21 mcg/actuation #60 grams HFA inhaler (Advair HFA) cetirizine 10 mg tablet 10 mg PO DAILY 06/13/24 08/29/24 History cyclobenzaprine 5 mg tablet 5 mg PO TID PRN muscle pain 06/13/24 08/29/24 History dulaglutide 3 mg/0.5 mL 3 mg subcut WEEKLY 06/13/24 08/29/24 History subcutaneous pen injector (Trulicity) escitalopram oxalate 10 mg tablet 10 mg PO DAILY 06/13/24 08/29/24 History famotidine 20 mg tablet 20 mg PO BID PRN acid reflux 06/13/24 08/29/24 History ferrous sulfate 325 mg (65 mg 325 mg PO BID PRN menstrual 06/13/24 08/29/24 History iron) tablet (FeroSul) bleeding fluticasone propionate 50 1 spray intranasal DAILY PRN 06/13/24 08/29/24 History mcg/actuation nasal allergy symptoms spray,suspension hydrocodone 7.5 mg-acetaminophen 1 tablet PO TID PRN pain 06/13/24 08/29/24 History 325 mg tablet insulin lispro 100 unit/mL 50 unit subcut TIDWM 06/13/24 08/29/24 History subcutaneous pen metformin 500 mg tablet,extended 500 mg PO BID 06/13/24 08/29/24 History release 24 hr pregabalin 200 mg capsule 200 mg PO DAILY 06/13/24 08/29/24 History progesterone micronized 100 mg 100 mg PO QPM 06/13/24 08/29/24 History capsule [facility] 06/17/24 08/29/24 Rx Verio test strips) [facility] 08/29/24 Rx Verio Flex Meter) carvedilol 12.5 mg tablet (Coreg) 12.5 mg PO Q12HR #60 tabs 06/17/24 08/29/24 Rx hydrochlorothiazide 25 mg tablet 25 mg PO QAM #30 tabs 06/17/24 08/29/24 Rx insulin glargine 100 unit/mL (3 24 unit (0.24 mL) subcut QPM #15 mL 06/17/24 08/29/24 Rx mL) subcutaneous pen (Lantus Solostar U-100 Insulin) insulin syringe,safety needle 0.5 #1 [facility] 06/17/24 08/29/24 Rx mL 31 gauge x 5/16 insulin syringe,safety needle 1 mL #1 [facility] 06/17/24 08/29/24 Rx 32 gauge x 5/16 lancets 30 gauge (OneTouch Delica #1 g 06/17/24 08/29/24 Rx Plus Lancet) pen needle, diabetic 32 gauge x #1 [facility] 06/17/24 08/29/24 Rx 1/4 pen needle, diabetic 32 gauge x #1 [facility] 06/17/24 08/29/24 Rx 5/32 magnesium oxide 400 mg (241.3 mg 400 mg PO HS #60 tabs 06/30/24 08/29/24 Rx magnesium) tablet ondansetron 4 mg disintegrating 4 mg PO Q8H PRN nausea and 06/30/24 08/29/24 Rx tablet vomiting #60 tabs lisinopril 40 mg tablet 40 mg PO DAILY 08/29/24 08/29/24 History Allergies Allergy/AdvReac Type Severity Reaction Status Date / Time atenolol Allergy Intermediate Chest Pain Verified 06/24/24 09:52 Vital Signs Vital Signs - 24 hr 08/29/24 14:14 08/29/24 17:02 08/29/24 19:20 Temperature 36.8 C Pulse Rate 86 75 83 Respiratory Rate 18 16 16 Blood Pressure 153/81 H 155/76 H 149/71 H Pulse Oximetry 99 100 99 Oxygen Delivery 08/29/24 22:40 08/30/24 00:00 08/30/24 00:00 Temperature 36.9 C Pulse Rate 86 87 Respiratory Rate 18 Blood Pressure 168/97 H Pulse Oximetry 98 Oxygen Delivery Room Air 08/30/24 00:00 08/30/24 02:00 08/30/24 04:00 Temperature 36.9 C Pulse Rate 87 87 Respiratory Rate 14 13 Blood Pressure 157/80 H 142/106 H Pulse Oximetry 97 95 Oxygen Delivery Room Air 08/30/24 04:00 08/30/24 04:00 08/30/24 06:00 Temperature 37.1 C 37.1 C Pulse Rate 78 78 77 Respiratory Rate 12 12 Blood Pressure 123/65 117/77 Pulse Oximetry 97 99 Oxygen Delivery 08/30/24 08:00 08/30/24 08:00 08/30/24 08:00 Temperature 36.8 C Pulse Rate 77 80 80 Respiratory Rate 12 13 Blood Pressure 132/72 Pulse Oximetry 100 100 Oxygen Delivery Room Air 08/30/24 08:31 08/30/24 09:28 Temperature Pulse Rate 84 Respiratory Rate Blood Pressure Pulse Oximetry 100 Oxygen Delivery Room Air Exam Narrative: revealed her to be awake alert cooperative in no obvious acute distress, head normocephalic with no bruit, ear nose throat examination normal, neck supple with no meningeal signs, heart regular with no murmur, lungs clear to auscultation with no rhonchi or crepitations, abdomen is soft nontender normal bowel sounds, neurologically she is awake alert oriented x3, speech not dysphasic not dysarthric not dysphonic, pupils round regular [place] of vision full extraocular movements full face symmetrical tongue midline motor examination revealed her to be with no focal motor deficit in the upper extremities with no drift against gravity motor examination lower extremities revealed her to 3 to4+ out of 5 with strength proximally and distally with very sluggish reflexes and downgoing plantar responses. Results Labs 09/05/24 06:15 09/05/24 06:15 Labs: Short CBC 08/29/24 08/30/24 Range/Units 17:17 04:35 WBC 9.7 6.4 (4.5-10.0) K/mm3 Hgb 12.0 10.4 L (12.0-15.0) g/dL Hct 37.3 32.0 L (37.0-47.0) % Plt Count 168 135 L (150-375) k/mm3 BMP 08/29/24 08/30/24 08/30/24 17:17 00:41 04:35 Sodium 138 136 L 138 Potassium 5.7 H 4.7 4.4 Chloride 111 H 112 H 113 H Carbon Dioxide 17 L 14 L 16 L BUN 45 H D 42 H 38 H Creatinine 2.96 H 2.43 H 2.26 H Glucose 83 97 102 Calcium 9.5 9.6 9.4 Cardiac Enzymes 08/29/24 08/30/24 Range/Units 17:17 04:35 Total Creatine Kinase > 47772 H > 8000 H (30-135) U/L Liver Function 08/29/24 08/30/24 Range/Units 17:17 04:35 Total Bilirubin 0.3 0.2 (0.2-1.3) mg/dL AST 500 H 314 H (14-36) U/L ALT 223 H 170 H (6-35) U/L Alkaline Phosphatase 48 41 (38-126) U/L Albumin 3.7 2.9 L (3.5-5.1) g/dL Urine 08/29/24 Range/Units 16:43 Urine Color Yellow (Yellow) Urine Appearance Cloudy H (Clear) Urine pH 5.5 (5.0-9.0) Ur Specific [place] 1.018 (1.001-1.035) Urine Protein 3+ H (Negative) mg/dL Urine Glucose (UA) Negative (Negative) mg/dL
[2024-08-30] MEDS: LACTATED RINGERS 1,000 ML 100 ML IV CONT ×2 (11:54→22:26)
[2024-08-30] MEDS: INSULIN GLARGINE (*BKC) 100 UNITS/ML 24 UNITS SUB-Q (16:56)
[2024-08-30] MEDS: MAGNESIUM OXIDE 400 MG TABLET PO (20:21)
[2024-08-31] VITALS (9 sets, daily range): BP systolic 145–184; BP diastolic 79–87; PULSE 84–87; RESP 16–20; TEMP 36.5–36.9; O2SAT 96–98; BMI 39.4
[2024-08-31] MEDS: OXYMETAZOLINE HCL 0.05% NAS 15 ML BTL (*BKC) 1 SPRAY NASAL (05:43)
[2024-08-31] MEDS: CYCLOBENZAPRINE HCL 5 MG TABLET PO ×3 (05:45→21:42)
[2024-08-31] MEDS: HYDROcodone/acetaminophen (*CRX) 7.5-325 MG TABLET 1 TAB PO ×2 (05:45→21:42)
[2024-08-31 07:16] LABS: Hematocrit 32.8 % (37.0-47.0); Hemoglobin 11.1 g/dL (12.0-15.0); Immature Granulocyte Percent A 0.3 % (0-0.5); Lymphocytes Absolute Auto 1.02 K/mm3 (0.9-3.2); Mean Corpuscular HGB Conc 33.8 g/dl (32-36); Mean Corpuscular Hemoglobin 27.8 pg (26-34); Mean Corpuscular Volume 82.2 fl (80-100); Nucleated Red Blood Cells Absolute Auto 0.000 K/mm3 (0.0-0.012); Nucleated Red Blood Cells Perc 0.0 % (0.0-0.2); Platelet Count Result 173 k/mm3 (150-375); Red Blood Count 3.99 M/mm3 (4.2-5.4); White Blood Count 9.8 K/mm3 (4.5-10.0)
[2024-08-31] MEDS: FLUTICASONE/SALMETEROL 230-21 MCG INHALER 1 PUFF 2 PUFF INHALATION ×2 (08:08→20:24)
[2024-08-31 08:11] LABS: Albumin Level 3.3 g/dL (3.5-5.1); Anion Gap 7 mmol/L (4-12); Blood Urea Nitrogen 30 mg/dL (7-17); Calcium 9.1 mg/dL (8.4-10.2); Carbon Dioxide 22 mmol/L (22-30); Chloride 108 mmol/L (98-107); Creatine Kinase 6632 U/L (30-135); Estimated CRCL calculation 46 ml/min; Estimated Glomerular Filt Rate 36; Glucose 183 mg/dL (65-110); Potassium 3.5 mmol/L (3.4-5.0); Sodium 137 mmol/L (137-145)
[2024-08-31] MEDS: PREGABALIN (*CRX) 50 MG CAPSULE 200 MG PO (09:02)
[2024-08-31] MEDS: HYDROXYCHLOROQUINE SULFATE 200 MG TABLET PO ×2 (09:02→20:22)
[2024-08-31] MEDS: ASPIRIN 81 MG ENTERIC TABLET PO (09:03)
[2024-08-31] MEDS: ESCITALOPRAM OXALATE 10 MG TABLET PO (09:03)
[2024-08-31] MEDS: LORATADINE 10 MG TABLET PO (09:03)
[2024-08-31] MEDS: LACTATED RINGERS 1,000 ML 100 ML IV CONT ×2 (09:06→21:42)
[2024-08-31] MEDS: INSULIN ASPART (*BKC) 100 UNITS/ML SUB-Q ×3 (11:54→20:22)
--- NOTE | 2024-08-31 12:41 | P.PNIM_ITS ---
Progress Note: A&P Assessment and Plan (1) Muscle weakness of lower extremity: Code(s): M62.81 - Muscle weakness (generalized) Status: Acute Assessment and Plan: Patient presented with weakness in the pelvic girdle muscles, mostly in the upper thigh muscles bilaterally flexion of the knee joints, ankle joints or muscle strength head and lower extremities below the knee. -patient has a history of rheumatoid arthritis, could have anemia altered remained disease such as polymyositis. -CT of the thoracic spine did not show any fracture or traumatic malalignment detected in the thoracic spine -CT of the lumbar spine with no evidence of sacral ulcer or sacral osteomyelitis, Hepatomegaly. Mild body wall edema. Dermal thickening and subcutaneous inflammatory change/edema over the midline lower anterior abdomen, correlate for clinical findings of cellulitis/panniculitis. -I have ordered aldolase, CRP, JERRY, anti Ely, anti for PI[employer]O [employer], anti SSA and anti SSB and Duran antibody which is pending 08/30: MRI thoracic spine: Minimal thoracic spondylosis with no central canal or neural foraminal stenosis and with normal cord signal with no abnormally enhancing lesions. 08/30: MRI Lumbar spine: 1. Multilevel facet joint disease. 2. No acute osseous abnormality. 3. Nonenhancing lesion. 4. Degenerative disc disease with mild diffuse disc bulge at the level of L5-S1 (2) Rhabdomyolysis: Code(s): M62.82 - Rhabdomyolysis Status: Acute Assessment and Plan: Patient with rhabdomyolysis likely related to above -no history of trauma, immobilization, crush injuries, seizures -CK levels trending down, continue to hydrate with IV fluids -monitor CK level (3) GIORGI (acute kidney injury): Code(s): N17.9 - Acute kidney failure, unspecified Status: Acute Assessment and Plan: Acute kidney injury likely related to rhabdomyolysis -creatinine on admission was 2.96 (baseline creatinine give 0.5-0.7) -continue maintenance IV fluids -continue to monitor urine output, renal function electrolytes -nephrology following - creatinine improving -avoid nephrotoxic medications (4) Abnormal LFTs: Code(s): R79.89 - Other specified abnormal findings of blood chemistry Status: Acute Assessment and Plan: Could be related to rhabdomyolysis -LFTs trending down, continue to my (5) HTN (hypertension): Code(s): I10 - Essential (primary) hypertension Status: Chronic Assessment and Plan: increased Coreg Will add amlodipine continue to monitor (6) HLD (hyperlipidemia): Code(s): E78.5 - Hyperlipidemia, unspecified Status: Chronic Assessment and Plan: Will hold statins due to proximal muscle weakness of the thighs (7) Insulin dependent diabetes mellitus: Status: Chronic Assessment and Plan: Continue sliding scale insulin Accu-Cheks - continue Lantus Plan DVT prophylaxis: Heparin subQ Stress ulcer prophylaxis: Not indicated Nutrition: Diabetic diet Code Status: Full code Due to a high probability of clinically significant, life threatening deterioration, the patient required my highest level of preparedness to intervene emergently and I personally spent this critical care time directly and personally managing the patient. This critical care time included obtaining a history; examining the patient; pulse oximetry; ordering and review of studies; arranging urgent treatment with development of a management plan; evaluation of patient's response to treatment; frequent reassessment; and discussions with other providers. It was exclusive of separately billable procedures and treating other patients and teaching time. Please see Assessment and Plan section and the rest of the note for further information on patient assessment and treatment This dictation may have been done utilizing a voice recognition system. Attempts have been made to correct errors. However, there may be uncorrected grammatical, spelling, and recognitions errors present. Subjective Date/time seen: 08/31/24 12:41 Interval history: Reason for consult: Weakness, Rhabdomyolysis, proximal pelvic girdle muscle weakness/? Polymyositis, elevated LFTs, acute kidney injury Regina Howell is a 54 year old female with significant past medical history of pneumonia, rheumatoid arthritis, iron deficiency anemia, asthma, obesity, anxiety and depression, GERD, essential hypertension, diabetes, hyperlipidemia presented the ED on 08/29/2024 with complaints of bilateral proximal lower extremity weakness, patient is having trouble getting up and standing up from a chair, a getting out of a car and even standing up from her bed. 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 The symptoms have been going on for the last 4-5 days. She cannot lift her legs at the hips but has good strength at the knees and ankles and feet and as such she cannot lift herself from a laying position also cannot stand up from a bending position. She has to use something to brace and push herself up. No sensory losses, no changes in bowel or bladder habits. No issues in the upper extremity denies any fevers, chills, vomiting, diarrhea. She was complaining of generalized weakness. Patient being seen for the hospitalist group: Patient seen and examined the ICU this morning, she is still having b/l thigh weakness. Hypertensive and hyperglycemic. good UO, Afebrile. Creatinine and CK levels trending down Review of Systems Review of Systems: All systems reviewed & are unremarkable except as noted in HPI and below Exam Narrative: General: Pleasant female in no acute distress HEENT:? Pupils equal and reactive, sclerae is clear Neck:? Supple Respiratory:? Clear to auscultation bilaterally, no wheezing, adequate air entry Cardiac:? S1-S2 is normal, regular rate and rhythm Abdomen:? Soft, nontender, nondistended, obese, normoactive bowel sounds Extremities:? Strength at shoulder, elbow and wrist on are normal. Strength at ankle and knee joint is normal, strength at hip joint is 2/5, sensations are intact Neuro:? Patient is awake, alert, oriented x3, Skin:? No lesions noted Psych:? Normal mentation and affect Objective Data Vital Signs Vital Signs: Vital Signs - 24 hr 08/30/24 16:00 08/30/24 19:54 08/30/24 19:54 Temperature 97.8 F Pulse Rate 86 86 86 Respiratory Rate 20 16 16 Blood Pressure 143/85 H Pulse Oximetry 96 96 Oxygen Delivery Room Air 08/30/24 20:00 08/30/24 20:00 08/30/24 20:21 Temperature 98 F Pulse Rate 86 86 Respiratory Rate 16 Blood Pressure 179/89 H Pulse Oximetry 96 Oxygen Delivery Room Air 08/30/24 21:58 08/31/24 00:00 08/31/24 04:00 Temperature 97.7 F Pulse Rate 86 Respiratory Rate 16 Blood Pressure 190/95 H 158/80 H 184/87 H Pulse Oximetry 96 Oxygen Delivery 08/31/24 06:02 08/31/24 07:35 08/31/24 08:09 Temperature 98.2 F Pulse Rate 87 86 Respiratory Rate 18 20 Blood Pressure 173/80 H 170/79 H Pulse Oximetry 96 97 Oxygen Delivery Room Air 08/31/24 08:09 08/31/24 10:14 08/31/24 11:10 Temperature Pulse Rate 86 Respiratory Rate 20 Blood Pressure 145/80 H Pulse Oximetry Oxygen Delivery Room Air Intake/Output Intake/Output: Intake & Output 08/28/24 08/29/24 08/30/24 08/31/24 23:59 23:59 23:59 23:59 Intake Total 2014.7 1890 1980 Output Total 940 650 Balance 950 1330 Meds/Results Medications: Active Medications Generic Name Dose Route Start Last Admin Trade Name Freq PRN Reason Stop Dose Admin Acetaminophen 650 mg 08/30/24 09:01 08/30/24 09:28 Acetaminophen 325 Mg Tablet PO 650 mg Q6H PRN Administration Mild Pain (1-3) or Fever Hydrocodone Bitart/Acetaminophen 1 tab 08/30/24 00:52 08/31/24 05:45 Hydrocodone/Acetaminophen (*Crx) 7.5-325 Mg Tablet PO 1 tab Q8H PRN Administration pain Albuterol 2.5 mg 08/30/24 00:52 Albuterol Sulfate Neb 2.5 Mg/3 Ml Inh INHALATION Q6HRT PRN Shortness Of Breath Or Wheezing Amlodipine Besylate 10 mg 08/31/24 09:30 08/31/24 10:04 Amlodipine Besylate 10 Mg Tablet PO 10 mg DAILY JUDITH Administration Aspirin 81 mg 08/30/24 09:00 08/31/24 09:03 Aspirin 81 Mg Enteric Tablet PO 81 mg QAM JUDITH Administration Carvedilol 25 mg 08/31/24 21:00 Carvedilol 12.5 Mg Tablet PO Q12HR JUDITH Cyclobenzaprine HCl 5 mg 08/30/24 00:52 08/31/24 05:45 Cyclobenzaprine Hcl 5 Mg Tablet PO 5 mg TID PRN Administration muscle pain Dextrose 12.5 gm 08/30/24 00:55 Dextrose 50% 25 Gm/50 Ml Syringe IV PUSH PRN PRN Hypoglycemia Protocol Escitalopram Oxalate 10 mg 08/30/24 09:00 08/31/24 09:03 Escitalopram Oxalate 10 Mg Tablet PO 10 mg DAILY JUDITH Administration Famotidine 20 mg 08/30/24 00:52 Famotidine 20 Mg Tablet PO BID PRN acid reflux Fluticasone Propionate 1 spray 08/30/24 00:52 Fluticasone Propionate 0.05% Na Spr 16 Gm Btl (*Bkc) NASAL DAILY PRN allergy symptoms Glucose 15 gm 08/30/24 00:55 Glucose Oral Gel 15 Gm Of Glucse In 37.5 Gm Tube PO PRN PRN Hypoglycemia Protocol Heparin Sodium (Porcine) 5,000 units 08/30/24 14:00 08/31/24 05:38 Heparin Sodium 5,000 Units/Ml Vial SUB-Q 5,000 units Q8HR JUDITH Administration Hydralazine HCl 10 mg 08/31/24 09:30 Hydralazine Hcl 20 Mg/Ml Vial IV PUSH Q4H PRN Blood Pressure - High Hydroxychloroquine Sulfate 200 mg 08/30/24 09:00 08/31/24 09:02 Hydroxychloroquine Sulfate 200 Mg Tablet PO 200 mg Q12HR JUDITH Administration Dextrose 1,000 mls @ 100 mls/hr 08/30/24 00:55 Dextrose 5% 1,000 Ml IVPB PRN PRN Hypoglycemia Protocol Lactated Ringer's 1,000 mls @ 100 mls/hr 08/30/24 10:35 08/31/24 10:00 Lr - Lactated Ringers Iv IV CONT 100 mls/hr .Q10H JUDITH Infusion Insulin Aspart 50 units 08/30/24 08:00 08/31/24 08:51 Insulin Aspart (*Bkc) 100 Units/Ml SUB-Q Not Given TIDWM JUDITH Insulin Aspart 1 - 3 units 08/30/24 21:00 08/30/24 20:21 Insulin Aspart (*Bkc) 100 Units/Ml SUB-Q 2 units HS JUDITH Administration Protocol Insulin Aspart 4 - 8 units 08/30/24 12:00 08/31/24 11:54 Insulin Aspart (*Bkc) 100 Units/Ml SUB-Q 6 units TIDWM [facility] Administration Protocol Insulin Glargine 24 units 08/30/24 18:00 08/30/24 16:56 Insulin Glargine (*Bkc) 100 Units/Ml SUB-Q 24 units QPM JUDITH Administration Loratadine 10 mg 08/30/24 09:00 08/31/24 09:03 Loratadine 10 Mg Tablet PO 10 mg QAM JUDITH Administration Magnesium Oxide 400 mg 08/30/24 21:00 08/30/24 20:21 Magnesium Oxide 400 Mg Tablet PO 400 mg HS JUDITH Administration Oxymetazoline HCl 1 spray 08/30/24 01:03 08/31/24 05:43 Oxymetazoline Hcl 0.05% Jaime 15 Ml Btl (*Bkc) NASAL 1 spray Q8H PRN Administration Congestion Prednisone 40 mg 08/30/24 08:10 08/31/24 09:02 Prednisone 20 Mg Tablet PO 40 mg DAILY@0800 JUDITH Administration Pregabalin 200 mg 08/30/24 09:00 08/31/24 09:02 Pregabalin (*Crx) 50 Mg Capsule PO 200 mg DAILY JUDITH Administration Fluticasone/Salmeterol 2 puff 08/30/24 08:00 08/31/24 08:08 Fluticasone/Salmeterol 230-21 Mcg Inhaler 1 Puff INHALATION 2 puff Q12HRT JUDITH Administration Trazodone HCl 50 mg 08/30/24 00:52 08/30/24 20:32 Trazodone Hcl 50 Mg Tablet PO 50 mg QHS PRN Administration Insomnia Radiology Results: ITS Impressions Chest X-Ray 08/29/24 16:59 IMPRESSION: No acute cardiopulmonary pathology Miscellaneous CT Procedure 08/29/24 18:35 IMPRESSION: Hepatomegaly. Mild body wall edema. Dermal thickening and subcutaneous inflammatory change/edema over the midline lower anterior abdomen, correlate for clinical findings of cellulitis/panniculitis. No CT evidence of sacral ulcer or sacral osteomyelitis. Thoracic Spine CT 08/29/24 20:06 IMPRESSION: No acute fracture or traumatic malalignment detected in the thoracic spine. Lumbar Spine MRI 08/30/24 16:24 IMPRESSION: 1. Multilevel facet joint disease. 2. No acute osseous abnormality. 3. Nonenhancing lesion. 4. Degenerative disc disease with mild diffuse disc bulge at the level of L5- S1. Thoracic Spine MRI 08/30/24 19:00 IMPRESSION: 1. Minimal thoracic spondylosis with no central canal or neural foraminal stenosis and with normal cord signal with no abnormally enhancing lesions. Labs Labs: Laboratory Results - last 24 hr 08/30/24 08/30/24 08/30/24 16:51 20:18 21:48 WBC RBC Hgb Hct MCV MCH MCHC RDW Plt Count MPV Immature Gran % (Auto) Neut % (Auto) Lymph % (Auto) [place] % (Auto) Eos % (Auto) Baso % (Auto) Lymph # (Auto) [place] # (Auto) Eos # (Auto) Baso # (Auto) Abs Immat Gran (auto) Absolute Neuts (auto) Absolute Nucleated RBC Nucleated RBC % Sodium Potassium Chloride Carbon Dioxide Anion Gap BUN Creatinine Estim Creat Clear Calc Estimated GFR Glucose POC Capillary Glucose 257 H 323 H 286 H Calcium Phosphorus Total Creatine Kinase Albumin 08/31/24 08/31/24 08/31/24 07:00 07:04 11:12 WBC 9.8 RBC 3.99 L Hgb 11.1 L Hct 32.8 L MCV 82.2 MCH 27.8 MCHC 33.8 RDW 13.3 Plt Count 173 MPV 10.3 Immature Gran % (Auto) 0.3 Neut % (Auto) 82.1 H Lymph % (Auto) 10.4 L [place] % (Auto) 7.1 Eos % (Auto) 0.0 Baso % (Auto) 0.1 L Lymph # (Auto) 1.02 [place] # (Auto) 0.7 H Eos # (Auto) 0.0 Baso # (Auto) 0.0 Abs Immat Gran (auto) 0.03 Absolute Neuts (auto) 8.0 H Absolute Nucleated RBC 0.000 Nucleated RBC % 0.0 Sodium 137 Potassium 3.5 Chloride 108 H Carbon Dioxide 22 Anion Gap 7 BUN 30 H Creatinine 1.51 H Estim Creat Clear Calc 46 Estimated GFR 36 L Glucose 183 H POC Capillary Glucose 183 H 325 H Calcium 9.1 Phosphorus 3.7 Total Creatine Kinase 6632 H Albumin 3.3 L
--- NOTE | 2024-08-31 14:06 | P.PNNP_ITS ---
Progress Note: A&P Assessment and Plan (1) Acute kidney injury: Code(s): N17.9 - Acute kidney failure, unspecified Status: Acute Assessment and Plan: * as noted on admission * ongoing improvement noted * suspect secondary to #2 * if fails to improve, then will check renal u/s, urine electrolytes...etc * hold MARGARITA-I * follow trend of renal function and UOP (2) Rhabdomyolysis: Code(s): M62.82 - Rhabdomyolysis Status: Acute Assessment and Plan: * as noted by elevated CPK on admission * however, trending down * presumed etiology of #1 * etiology not clear: * no history of trauma * no history of mmobilization * no crush injuries * no history of seizures * continue IVFs * follow trend of CPK (3) Muscle weakness of lower extremity: Code(s): M62.81 - Muscle weakness (generalized) Status: Acute Assessment and Plan: * presumably related to #2 * presented weakness in the pelvic girdle muscles, mostly in the upper thigh muscles bilaterally * imaging to date noted: * CT of the thoracic spine did not show any H fracture or traumatic malalignment detected in the thoracic spine * CT of the lumbar spine with no evidence of sacral ulcer or 2nd osteomyelitis, Hepatomegaly. Mild body wall edema. Dermal thickening and subcutaneous inflammatory change/edema over the midline lower anterior abdomen, correlate for clinical findings of cellulitis/panniculitis * MRI lumbar and thoracic spine is pending * however, give her history rheumatoid arthritis, cannot discount another autoimmune progress * aldolase, CRP, JERRY, anti Ely, antiRNP, anti SSA and anti SSB and Duran antibody ordered/pending for further assessment * holding statin * started on trial of steroids (4) Abnormal LFTs: Code(s): R79.89 - Other specified abnormal findings of blood chemistry Status: Acute Assessment and Plan: * possibly related to rhabdomyolysis * slow improvement noted * follow trend of LFTs (5) HTN (hypertension): Code(s): I10 - Essential (primary) hypertension Status: Chronic Assessment and Plan: * reasonable control * follow trend of hemodynamics (6) Insulin dependent diabetes mellitus: Status: Chronic Assessment and Plan: * follow accu-cheks * glycemic control per hospitalist Will continue to follow. L Subjective Date/time seen: 08/31/24 14:06 Interval history: Follow-up for acute kidney injury/acute renal failure. Renal function/creatinine continues to improve with ongoing therapy/interventions in association with good urine output; CPK level trending down as well; major complaint is that of bilateral thigh/leg weakness; hemodynamically stable (if not hypertensive) with no other issues/events overnight or earlier this morning. Exam 2 Narrative: General: WD/WN female in NAD Heart: normal S1 and S2; no rub Lungs: clear to auscultation Abdomen: soft, nontender, nondistended, positive bowel sounds Extremities: no cyanosis or clubbing; no edema Skin: warm and dry Objective Data Vital Signs Vital Signs: Vital Signs Temp Pulse Resp BP Pulse Ox O2 Del Method 08/31/24 13:25 98.4 F 87 18 156/82 H 98 08/31/24 11:10 145/80 H 08/31/24 10:14 Room Air 08/31/24 08:09 86 20 08/31/24 08:09 86 20 97 Room Air 08/31/24 07:35 98.2 F 87 18 170/79 H 96 08/31/24 06:02 173/80 H 08/31/24 04:00 97.7 F 86 16 184/87 H 96 08/31/24 00:00 158/80 H 08/30/24 21:58 190/95 H 08/30/24 20:21 86 08/30/24 20:00 Room Air 08/30/24 20:00 98 F 86 16 179/89 H 96 08/30/24 19:54 86 16 96 Room Air 08/30/24 19:54 86 16 Intake/Output Intake/Output: Intake & Output 08/28/24 08/29/24 08/30/24 08/31/24 23:59 23:59 23:59 23:59 Intake Total 2014.7 1890 2230 Output Total 940 650 Balance 7 950 1580 Meds/Results Medications: Active Medications Generic Name Dose Route Start Last Admin Trade Name Freq PRN Reason Stop Dose Admin Acetaminophen 650 mg 08/30/24 09:01 08/31/24 15:33 Acetaminophen 325 Mg Tablet PO 650 mg Q6H PRN Administration Mild Pain (1-3) or Fever Hydrocodone Bitart/Acetaminophen 1 tab 08/30/24 00:52 08/31/24 05:45 Hydrocodone/Acetaminophen (*Crx) 7.5-325 Mg Tablet PO 1 tab Q8H PRN Administration pain Albuterol 2.5 mg 08/30/24 00:52 Albuterol Sulfate Neb 2.5 Mg/3 Ml Inh INHALATION Q6HRT PRN Shortness Of Breath Or Wheezing Amlodipine Besylate 10 mg 08/31/24 09:30 08/31/24 10:04 Amlodipine Besylate 10 Mg Tablet PO 10 mg DAILY JUDITH Administration Aspirin 81 mg 08/30/24 09:00 08/31/24 09:03 Aspirin 81 Mg Enteric Tablet PO 81 mg QAM JUDITH Administration Carvedilol 25 mg 08/31/24 21:00 Carvedilol 12.5 Mg Tablet PO Q12HR JUDITH Cyclobenzaprine HCl 5 mg 08/30/24 00:52 08/31/24 15:33 Cyclobenzaprine Hcl 5 Mg Tablet PO 5 mg TID PRN Administration muscle pain Dextrose 12.5 gm 08/30/24 00:55 Dextrose 50% 25 Gm/50 Ml Syringe IV PUSH PRN PRN Hypoglycemia Protocol Escitalopram Oxalate 10 mg 08/30/24 09:00 08/31/24 09:03 Escitalopram Oxalate 10 Mg Tablet PO 10 mg DAILY JUDITH Administration Famotidine 20 mg 08/30/24 00:52 Famotidine 20 Mg Tablet PO BID PRN acid reflux Fluticasone Propionate 1 spray 08/30/24 00:52 Fluticasone Propionate 0.05% Na Spr 16 Gm Btl (*Bkc) NASAL DAILY PRN allergy symptoms Glucose 15 gm 08/30/24 00:55 Glucose Oral Gel 15 Gm Of Glucse In 37.5 Gm Tube PO PRN PRN Hypoglycemia Protocol Heparin Sodium (Porcine) 5,000 units 08/30/24 14:00 08/31/24 13:54 Heparin Sodium 5,000 Units/Ml Vial SUB-Q 5,000 units Q8HR JUDITH Administration Hydralazine HCl 10 mg 08/31/24 09:30 Hydralazine Hcl 20 Mg/Ml Vial IV PUSH Q4H PRN Blood Pressure - High Hydroxychloroquine Sulfate 200 mg 08/30/24 09:00 08/31/24 09:02 Hydroxychloroquine Sulfate 200 Mg Tablet PO 200 mg Q12HR JUDITH Administration Dextrose 1,000 mls @ 100 mls/hr 08/30/24 00:55 Dextrose 5% 1,000 Ml IVPB PRN PRN Hypoglycemia Protocol Lactated Ringer's 1,000 mls @ 100 mls/hr 08/30/24 10:35 08/31/24 10:00 Lr - Lactated Ringers Iv IV CONT 100 mls/hr .Q10H JUDITH Infusion Insulin Aspart 50 units 08/30/24 08:00 08/31/24 08:51 Insulin Aspart (*Bkc) 100 Units/Ml SUB-Q Not Given TIDWM JUDITH Insulin Aspart 1 - 3 units 08/30/24 21:00 08/30/24 20:21 Insulin Aspart (*Bkc) 100 Units/Ml SUB-Q 2 units HS JUDITH Administration Protocol Insulin Aspart 4 - 8 units 08/30/24 12:00 08/31/24 17:06 Insulin Aspart (*Bkc) 100 Units/Ml SUB-Q 5 units TIDWM JUDITH Administration Protocol Insulin Glargine 24 units 08/30/24 18:00 08/31/24 17:07 Insulin Glargine (*Bkc) 100 Units/Ml SUB-Q 24 units QPM JUDITH Administration Loratadine 10 mg 08/30/24 09:00 08/31/24 09:03 Loratadine 10 Mg Tablet PO 10 mg QAM JUDITH Administration Magnesium Oxide 400 mg 08/30/24 21:00 08/30/24 20:21 Magnesium Oxide 400 Mg Tablet PO 400 mg HS JUDITH Administration Oxymetazoline HCl 1 spray 08/30/24 01:03 08/31/24 05:43 Oxymetazoline Hcl 0.05% Jaime 15 Ml Btl (*Bkc) NASAL 1 spray Q8H PRN Administration Congestion Prednisone 40 mg 08/30/24 08:10 08/31/24 09:02 Prednisone 20 Mg Tablet PO 40 mg DAILY@0800 JUDITH Administration Pregabalin 200 mg 08/30/24 09:00 08/31/24 09:02 Pregabalin (*Crx) 50 Mg Capsule PO 200 mg DAILY JUDITH Administration Fluticasone/Salmeterol 2 puff 08/30/24 08:00 08/31/24 08:08 Fluticasone/Salmeterol 230-21 Mcg Inhaler 1 Puff INHALATION 2 puff Q12HRT JUDITH Administration Trazodone HCl 50 mg 08/30/24 00:52 08/30/24 20:32 Trazodone Hcl 50 Mg Tablet PO 50 mg QHS PRN Administration Insomnia Radiology Results: ITS Impressions Chest X-Ray 08/29/24 16:59 IMPRESSION: No acute cardiopulmonary pathology Miscellaneous CT Procedure 08/29/24 18:35 IMPRESSION: Hepatomegaly. Mild body wall edema. Dermal thickening and subcutaneous inflammatory change/edema over the midline lower anterior abdomen, correlate for clinical findings of cellulitis/panniculitis. No CT evidence of sacral ulcer or sacral osteomyelitis. Thoracic Spine CT 08/29/24 20:06 IMPRESSION: No acute fracture or traumatic malalignment detected in the thoracic spine. Lumbar Spine MRI 08/30/24 16:24 IMPRESSION: 1. Multilevel facet joint disease. 2. No acute osseous abnormality. 3. Nonenhancing lesion. 4. Degenerative disc disease with mild diffuse disc bulge at the level of L5- S1. Thoracic Spine MRI 08/30/24 19:00 IMPRESSION: 1. Minimal thoracic spondylosis with no central canal or neural foraminal stenosis and with normal cord signal with no abnormally enhancing lesions. Labs Labs: Laboratory Tests 08/31/24 07:00 08/31/24 07:00 Calcium 9.1 Phosphorus 3.7 Total Creatine Kinase 6632 H Albumin 3.3 L Microbiology 08/29/24 16:43 Urine Clean Catch - Final
[2024-08-31] MEDS: ACETAMINOPHEN 325 MG TABLET 650 MG PO (15:33)
[2024-08-31] MEDS: INSULIN GLARGINE (*BKC) 100 UNITS/ML 24 UNITS SUB-Q (17:07)
[2024-08-31] MEDS: MAGNESIUM OXIDE 400 MG TABLET PO (20:22)
[2024-09-01] VITALS (7 sets, daily range): BP systolic 138–153; BP diastolic 71–77; PULSE 73–83; RESP 14–18; TEMP 36.5–36.6; O2SAT 96–98
[2024-09-01 03:54] LABS: Hematocrit 32.2 % (37.0-47.0); Hemoglobin 10.9 g/dL (12.0-15.0); Immature Granulocyte Percent A 0.5 % (0-0.5); Lymphocytes Absolute Auto 1.43 K/mm3 (0.9-3.2); Mean Corpuscular HGB Conc 33.9 g/dl (32-36); Mean Corpuscular Hemoglobin 27.9 pg (26-34); Mean Corpuscular Volume 82.6 fl (80-100); Nucleated Red Blood Cells Absolute Auto 0.000 K/mm3 (0.0-0.012); Nucleated Red Blood Cells Perc 0.0 % (0.0-0.2); Platelet Count Result 182 k/mm3 (150-375); Red Blood Count 3.90 M/mm3 (4.2-5.4); White Blood Count 10.8 K/mm3 (4.5-10.0)
[2024-09-01 05:32] LABS: Alanine Aminotransferase 142 U/L (6-35); Albumin Level 3.5 g/dL (3.5-5.1); Alkaline Phosphatase 44 U/L (38-126); Anion Gap 7 mmol/L (4-12); Aspartate Amino Transferase 181 U/L (14-36); Bilirubin,Total 0.4 mg/dL (0.2-1.3); Blood Urea Nitrogen 23 mg/dL (7-17); Calcium 8.9 mg/dL (8.4-10.2); Carbon Dioxide 25 mmol/L (22-30); Chloride 105 mmol/L (98-107); Estimated CRCL calculation 66 ml/min; Estimated Glomerular Filt Rate 56; Glucose 209 mg/dL (65-110); Magnesium 1.3 mg/dL (1.6-2.3); Potassium 3.0 mmol/L (3.4-5.0); Sodium 137 mmol/L (137-145); Total Protein 6.3 g/dL (6.3-8.2)
[2024-09-01 05:40] LABS: Creatine Kinase 6183 U/L (30-135)
[2024-09-01] MEDS: POTASSIUM CHLORIDE 20 MEQ ER TABLET 40 MEQ PO ×2 (06:36→17:42)
[2024-09-01] MEDS: MAGNESIUM SULF 1 GM/D5W 100 ML 1 GM/100 ML BAG IVPB (06:37)
[2024-09-01] MEDS: FLUTICASONE/SALMETEROL 230-21 MCG INHALER 1 PUFF 2 PUFF INHALATION ×2 (07:50→20:02)
[2024-09-01] MEDS: LACTATED RINGERS 1,000 ML 100 ML IV CONT (08:35)
[2024-09-01] MEDS: LORATADINE 10 MG TABLET PO (08:40)
[2024-09-01] MEDS: ASPIRIN 81 MG ENTERIC TABLET PO (08:40)
[2024-09-01] MEDS: HYDROXYCHLOROQUINE SULFATE 200 MG TABLET PO ×2 (08:40→20:24)
[2024-09-01] MEDS: ESCITALOPRAM OXALATE 10 MG TABLET PO (08:40)
[2024-09-01] MEDS: PREGABALIN (*CRX) 50 MG CAPSULE 200 MG PO (08:40)
[2024-09-01] MEDS: CYCLOBENZAPRINE HCL 5 MG TABLET PO ×2 (08:42→20:24)
--- NOTE | 2024-09-01 10:55 | PM.IMPN ---
Progress Note: A&P Assessment and Plan (1) Muscle weakness of lower extremity: Code(s): M62.81 - Muscle weakness (generalized) Status: Acute Assessment and Plan: Patient presented with weakness in the pelvic girdle muscles, mostly in the upper thigh muscles bilaterally flexion of the knee joints, ankle joints or muscle strength head and lower extremities below the knee. -patient has a history of rheumatoid arthritis, could have anemia altered remained disease such as polymyositis. -CT of the thoracic spine did not show any fracture or traumatic malalignment detected in the thoracic spine -CT of the lumbar spine with no evidence of sacral ulcer or sacral osteomyelitis, Hepatomegaly. Mild body wall edema. Dermal thickening and subcutaneous inflammatory change/edema over the midline lower anterior abdomen, correlate for clinical findings of cellulitis/panniculitis. -continue prednisone - aldolase is elevated, -CRP is normal - JERRY -pending - anti Daly, anti for PSYCHOLOGIST RESEARCH ASSISTANT, anti SSA and anti SSB and Duran antibody are all negative -await Neurology recommendations 08/30: MRI thoracic spine: Minimal thoracic spondylosis with no central canal or neural foraminal stenosis and with normal cord signal with no abnormally enhancing lesions. 08/30: MRI Lumbar spine: 1. Multilevel facet joint disease. 2. No acute osseous abnormality. 3. Nonenhancing lesion. 4. Degenerative disc disease with mild diffuse disc bulge at the level of L5-S1 (2) Rhabdomyolysis: Code(s): M62.82 - Rhabdomyolysis Status: Acute Assessment and Plan: Patient with rhabdomyolysis likely related to above -no history of trauma, immobilization, crush injuries, seizures -CK levels trending down, continue to hydrate with IV fluids -monitor CK level (3) GIORGI (acute kidney injury): Code(s): N17.9 - Acute kidney failure, unspecified Status: Acute Assessment and Plan: Acute kidney injury likely related to rhabdomyolysis -creatinine on admission was 2.96 (baseline creatinine give 0.5-0.7) -continue maintenance IV fluids -continue to monitor urine output, renal function electrolytes -nephrology following - creatinine improving -avoid nephrotoxic medications (4) Abnormal LFTs: Code(s): R79.89 - Other specified abnormal findings of blood chemistry Status: Acute Assessment and Plan: Could be related to rhabdomyolysis -LFTs trending down, continue to my (5) HTN (hypertension): Code(s): I10 - Essential (primary) hypertension Status: Chronic Assessment and Plan: Continue Coreg and added lisinopril which are home medications, that her kidney functions have improved -will DC amlodipine (6) HLD (hyperlipidemia): Code(s): E78.5 - Hyperlipidemia, unspecified Status: Chronic Assessment and Plan: Will hold statins due to proximal muscle weakness of the thighs (7) Insulin dependent diabetes mellitus: Status: Chronic Assessment and Plan: Continue sliding scale insulin Accu-Cheks -increase Lantus -appreciate asthma educator evaluation, will add NovoLog 5 units TIDWM, per their recommendation Plan DVT prophylaxis: Heparin subQ Stress ulcer prophylaxis: Not indicated Nutrition: Diabetic diet Code Status: Full code Due to a high probability of clinically significant, life threatening deterioration, the patient required my highest level of preparedness to intervene emergently and I personally spent this critical care time directly and personally managing the patient. This critical care time included obtaining a history; examining the patient; pulse oximetry; ordering and review of studies; arranging urgent treatment with development of a management plan; evaluation of patient's response to treatment; frequent reassessment; and discussions with other providers. It was exclusive of separately billable procedures and treating other patients and teaching time. Please see Assessment and Plan section and the rest of the note for further information on patient assessment and treatment This dictation may have been done utilizing a voice recognition system. Attempts have been made to correct errors. However, there may be uncorrected grammatical, spelling, and recognitions errors present. Subjective Date/time seen: 09/01/24 10:55 Interval history: Reason for consult: Weakness, Rhabdomyolysis, proximal pelvic girdle muscle weakness/? Polymyositis, elevated LFTs, acute kidney injury Regina Howell is a 54 year old female with significant past medical history of pneumonia, rheumatoid arthritis, iron deficiency anemia, asthma, obesity, anxiety and depression, GERD, essential hypertension, diabetes, hyperlipidemia presented the ED on 08/29/2024 with complaints of bilateral proximal lower extremity weakness, patient is having trouble getting up and standing up from a chair, a getting out of a car and even standing up from her bed. 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 The symptoms have been going on for the last 4-5 days. She cannot lift her legs at the hips but has good strength at the knees and ankles and feet and as such she cannot lift herself from a laying position also cannot stand up from a bending position. She has to use something to brace and push herself up. No sensory losses, no changes in bowel or bladder habits. No issues in the upper extremity denies any fevers, chills, vomiting, diarrhea. She was complaining of generalized weakness. Patient being seen for the hospitalist group: 09/01/2024 Patient seen and examined the ICU this morning, she is still having b/l thigh weakness but feels it is slightly better. Red blood pressures remain elevated, blood sugars also elevated during evening hours. Good UO, Afebrile. Creatinine and CK levels trending down Review of Systems Review of Systems: All systems reviewed & are unremarkable except as noted in HPI and below Exam Narrative: General: Pleasant female in no acute distress HEENT:? Pupils equal and reactive, sclerae is clear Neck:? Supple Respiratory:? Clear to auscultation bilaterally, no wheezing, adequate air entry Cardiac:? S1-S2 is normal, regular rate and rhythm Abdomen:? Soft, nontender, nondistended, obese, normoactive bowel sounds Extremities:? Strength at shoulder, elbow and wrist on are normal. Strength at ankle and knee joint is normal, strength at hip joint is 2/5, sensations are intact Neuro:? Patient is awake, alert, oriented x3, Skin:? No lesions noted Psych:? Normal mentation and affect Objective Data Vital Signs Vital Signs: Vital Signs - 24 hr 08/31/24 11:10 08/31/24 13:25 08/31/24 16:00 Temperature 98.4 F Pulse Rate 87 Respiratory Rate 18 Blood Pressure 145/80 H 156/82 H Pulse Oximetry 98 Oxygen Delivery Room Air 08/31/24 20:00 08/31/24 20:21 08/31/24 20:23 Temperature Pulse Rate 84 Respiratory Rate Blood Pressure Pulse Oximetry 96 Oxygen Delivery Room Air Room Air 09/01/24 00:00 09/01/24 07:51 09/01/24 08:00 Temperature 97.7 F 97.8 F Pulse Rate 77 74 Respiratory Rate 16 Blood Pressure 153/77 H 138/73 Pulse Oximetry 96 96 97 Oxygen Delivery Room Air Intake/Output Intake/Output: Intake & Output 07/14/08/30/24 08/31/24 09/01/24 23:59 23:59 23:59 23:59 Intake Total 2014.7 1890 3140 1600 Output Total 940 1850 Balance 7 950 1290 1600 Meds/Results Medications: Active Medications Generic Name Dose Route Start Last Admin Trade Name Freq PRN Reason Stop Dose Admin Acetaminophen 650 mg 08/30/24 09:01 08/31/24 15:33 Acetaminophen 325 Mg Tablet PO 650 mg Q6H PRN Administration Mild Pain (1-3) or Fever Hydrocodone Bitart/Acetaminophen 1 tab 08/30/24 00:52 08/31/24 21:42 Hydrocodone/Acetaminophen (*Crx) 7.5-325 Mg Tablet PO 1 tab Q8H PRN Administration pain Albuterol 2.5 mg 08/30/24 00:52 Albuterol Sulfate Neb 2.5 Mg/3 Ml Inh INHALATION Q6HRT PRN Shortness Of Breath Or Wheezing Aspirin 81 mg 08/30/24 09:00 09/01/24 08:40 Aspirin 81 Mg Enteric Tablet PO 81 mg QAM JUDITH Administration Carvedilol 25 mg 09/01/24 09:00 09/01/24 09:04 Carvedilol 25 Mg Tablet PO 25 mg Q12HR JUDITH Administration Cyclobenzaprine HCl 5 mg 08/30/24 00:52 09/01/24 08:42 Cyclobenzaprine Hcl 5 Mg Tablet PO 5 mg TID PRN Administration muscle pain Dextrose 12.5 gm 08/30/24 00:55 Dextrose 50% 25 Gm/50 Ml Syringe IV PUSH PRN PRN Hypoglycemia Protocol Escitalopram Oxalate 10 mg 08/30/24 09:00 09/01/24 08:40 Escitalopram Oxalate 10 Mg Tablet PO 10 mg DAILY JUDITH Administration Famotidine 20 mg 08/30/24 00:52 Famotidine 20 Mg Tablet PO BID PRN acid reflux Fluticasone Propionate 1 spray 08/30/24 00:52 Fluticasone Propionate 0.05% Na Spr 16 Gm Btl (*Bkc) NASAL DAILY PRN allergy symptoms Glucose 15 gm 08/30/24 00:55 Glucose Oral Gel 15 Gm Of Glucse In 37.5 Gm Tube PO PRN PRN Hypoglycemia Protocol Heparin Sodium (Porcine) 5,000 units 08/30/24 14:00 09/01/24 05:29 Heparin Sodium 5,000 Units/Ml Vial SUB-Q 5,000 units Q8HR JUDITH Administration Hydralazine HCl 10 mg 08/31/24 09:30 08/31/24 21:45 Hydralazine Hcl 20 Mg/Ml Vial IV PUSH 10 mg Q4H PRN Administration Blood Pressure - High Hydroxychloroquine Sulfate 200 mg 08/30/24 09:00 09/01/24 08:40 Hydroxychloroquine Sulfate 200 Mg Tablet PO 200 mg Q12HR JUDITH Administration Dextrose 1,000 mls @ 100 mls/hr 08/30/24 00:55 Dextrose 5% 1,000 Ml IVPB PRN PRN Hypoglycemia Protocol Lactated Ringer's 1,000 mls @ 100 mls/hr 08/30/24 10:35 09/01/24 08:35 Lr - Lactated Ringers Iv IV CONT 100 mls/hr .Q10H JUDITH Administration Insulin Aspart 50 units 08/30/24 08:00 08/31/24 08:51 Insulin Aspart (*Bkc) 100 Units/Ml SUB-Q Not Given TIDWM JUDITH Insulin Aspart 1 - 3 units 08/30/24 21:00 08/31/24 20:22 Insulin Aspart (*Bkc) 100 Units/Ml SUB-Q 1 units HS JUDITH Administration Protocol Insulin Aspart 4 - 8 units 08/30/24 12:00 09/01/24 08:33 Insulin Aspart (*Bkc) 100 Units/Ml SUB-Q Not Given TIDWM [facility] Protocol Insulin Glargine 24 units 08/30/24 18:00 08/31/24 17:07 Insulin Glargine (*Bkc) 100 Units/Ml SUB-Q 24 units QPM JUDITH Administration Lisinopril 40 mg 09/01/24 09:00 09/01/24 08:44 Lisinopril 20 Mg Tablet PO 40 mg DAILY JUDITH Administration Loratadine 10 mg 08/30/24 09:00 09/01/24 08:40 Loratadine 10 Mg Tablet PO 10 mg QAM JUDITH Administration Magnesium Oxide 400 mg 08/30/24 21:00 08/31/24 20:22 Magnesium Oxide 400 Mg Tablet PO 400 mg HS JUDITH Administration Oxymetazoline HCl 1 spray 08/30/24 01:03 08/31/24 05:43 Oxymetazoline Hcl 0.05% Jaime 15 Ml Btl (*Bkc) NASAL 1 spray Q8H PRN Administration Congestion Prednisone 40 mg 08/30/24 08:10 09/01/24 08:40 Prednisone 20 Mg Tablet PO 40 mg DAILY@0800 JUDITH Administration Pregabalin 200 mg 08/30/24 09:00 09/01/24 08:40 Pregabalin (*Crx) 50 Mg Capsule PO 200 mg DAILY JUDITH Administration Fluticasone/Salmeterol 2 puff 08/30/24 08:00 09/01/24 07:50 Fluticasone/Salmeterol 230-21 Mcg Inhaler 1 Puff INHALATION 2 puff Q12HRT JUDITH Administration Trazodone HCl 50 mg 08/30/24 00:52 08/31/24 20:31 Trazodone Hcl 50 Mg Tablet PO 50 mg QHS PRN Administration Insomnia Radiology Results: ITS Impressions Chest X-Ray 08/29/24 16:59 IMPRESSION: No acute cardiopulmonary pathology Miscellaneous CT Procedure 08/29/24 18:35 IMPRESSION: Hepatomegaly. Mild body wall edema. Dermal thickening and subcutaneous inflammatory change/edema over the midline lower anterior abdomen, correlate for clinical findings of cellulitis/panniculitis. No CT evidence of sacral ulcer or sacral osteomyelitis. Thoracic Spine CT 08/29/24 20:06 IMPRESSION: No acute fracture or traumatic malalignment detected in the thoracic spine. Lumbar Spine MRI 08/30/24 16:24 IMPRESSION: 1. Multilevel facet joint disease. 2. No acute osseous abnormality. 3. Nonenhancing lesion. 4. Degenerative disc disease with mild diffuse disc bulge at the level of L5-S1. Thoracic Spine MRI 08/30/24 19:00 IMPRESSION: 1. Minimal thoracic spondylosis with no central canal or neural foraminal stenosis and with normal cord signal with no abnormally enhancing lesions. Labs Labs: Laboratory Results - last 24 hr 08/30/24 08/30/24 08/31/24 09:15 09:16 11:12 WBC RBC Hgb Hct MCV MCH MCHC RDW Plt Count MPV Immature Gran % (Auto) Neut % (Auto) Lymph % (Auto) Tate % (Auto) Eos % (Auto) Baso % (Auto) Lymph # (Auto) Tate # (Auto) Eos # (Auto) Baso # (Auto) Abs Immat Gran (auto) Absolute Neuts (auto) Absolute Nucleated RBC Nucleated RBC % Sodium Potassium Chloride Carbon Dioxide Anion Gap BUN Creatinine Estim Creat Clear Calc Estimated GFR Glucose POC Capillary Glucose 325 H Calcium Phosphorus Magnesium Total Bilirubin AST ALT Alkaline Phosphatase Total Creatine Kinase Total Protein Albumin Aldolase 33.8 H DALY-1 Antibody <0.2 Sjogren's Anti-SS-A <0.2 Sjogren's Anti-SS-B <0.2 Duran Antibodies <0.2 PSYCHOLOGIST RESEARCH ASSISTANT Antibodies <0.2 08/31/24 08/31/24 09/01/24 16:36 20:15 03:36 WBC 10.8 H RBC 3.90 L Hgb 10.9 L Hct 32.2 L MCV 82.6 MCH 27.9 MCHC 33.9 RDW 13.6 Plt Count 182 MPV 10.3 Immature Gran % (Auto) 0.5 Neut % (Auto) 79.2 H Lymph % (Auto) 13.3 L Tate % (Auto) 6.9 Eos % (Auto) 0.0 Baso % (Auto) 0.1 L Lymph # (Auto) 1.43 Tate # (Auto) 0.7 H Eos # (Auto) 0.0 Baso # (Auto) 0.0 Abs Immat Gran (auto) 0.05 H Absolute Neuts (auto) 8.6 H Absolute Nucleated RBC 0.000 Nucleated RBC % 0.0 Sodium Potassium Chloride Carbon Dioxide Anion Gap BUN Creatinine Estim Creat Clear Calc Estimated GFR Glucose POC Capillary Glucose 284 H 339 H Calcium Phosphorus Magnesium Total Bilirubin AST ALT Alkaline Phosphatase Total Creatine Kinase Total Protein Albumin Aldolase DALY-1 Antibody Sjogren's Anti-SS-A Sjogren's Anti-SS-B Duran Antibodies PSYCHOLOGIST RESEARCH ASSISTANT Antibodies 09/01/24 09/01/24 04:26 07:36 WBC RBC Hgb Hct MCV MCH MCHC RDW Plt Count MPV Immature Gran % (Auto) Neut % (Auto) Lymph % (Auto) Tate % (Auto) Eos % (Auto) Baso % (Auto) Lymph # (Auto) Tate # (Auto) Eos # (Auto) Baso # (Auto) Abs Immat Gran (auto) Absolute Neuts (auto) Absolute Nucleated RBC Nucleated RBC % Sodium 137 Potassium 3.0 L Chloride 105 Carbon Dioxide 25 Anion Gap 7 BUN 23 H Creatinine 1.03 H Estim Creat Clear Calc 66 Estimated GFR 56 L Glucose 209 H POC Capillary Glucose 187 H Calcium 8.9 Phosphorus 3.3 Magnesium 1.3 L Total Bilirubin 0.4 AST 181 H ALT 142 H Alkaline Phosphatase 44 Total Creatine Kinase 6183 H Total Protein 6.3 Albumin 3.5 Aldolase DALY-1 Antibody Sjogren's Anti-SS-A Sjogren's Anti-SS-B Duran Antibodies PSYCHOLOGIST RESEARCH ASSISTANT Antibodies
[2024-09-01 11:08] LABS: ANA by IFA Rfx Titer/Pattern Negative (.)
[2024-09-01] MEDS: INSULIN ASPART (*BKC) 100 UNITS/ML SUB-Q ×5 (11:47→20:26)
--- NOTE | 2024-09-01 14:37 | P.PNNP_ITS ---
Progress Note: A&P Assessment and Plan (1) Acute kidney injury: Code(s): N17.9 - Acute kidney failure, unspecified Status: Acute Assessment and Plan: * as noted on admission * ongoing improvement noted if not close to baseline * suspect secondary to #2 * if fails to improve, then will check renal u/s, urine electrolytes...etc * hold MARGARITA-I * follow trend of renal function and UOP (2) Rhabdomyolysis: Code(s): M62.82 - Rhabdomyolysis Status: Acute Assessment and Plan: * as noted by elevated CPK on admission * however, trending down * presumed etiology of #1 * etiology not clear: * no history of trauma * no history of mmobilization * no crush injuries * no history of seizures * continue IVFs * follow trend of CPK (3) Muscle weakness of lower extremity: Code(s): M62.81 - Muscle weakness (generalized) Status: Acute Assessment and Plan: * presumably related to #2 * presented weakness in the pelvic girdle muscles, mostly in the upper thigh muscles bilaterally * imaging to date noted: * CT of the thoracic spine did not show any H fracture or traumatic malalignment detected in the thoracic spine * CT of the lumbar spine with no evidence of sacral ulcer or 2nd osteomyelitis, Hepatomegaly. Mild body wall edema. Dermal thickening and subcutaneous inflammatory change/edema over the midline lower anterior abdomen, correlate for clinical findings of cellulitis/panniculitis * MRI lumbar and thoracic spine is pending * however, give her history rheumatoid arthritis, cannot discount another autoimmune progress * aldolase, CRP, JERRY, anti Ely, antiRNP, anti SSA and anti SSB and Duran antibody ordered/pending for further assessment * holding statin * started on trial of steroids (4) Abnormal LFTs: Code(s): R79.89 - Other specified abnormal findings of blood chemistry Status: Acute Assessment and Plan: * possibly related to rhabdomyolysis * slow improvement noted * follow trend of LFTs (5) HTN (hypertension): Code(s): I10 - Essential (primary) hypertension Status: Chronic Assessment and Plan: * reasonable control * would be opposed to restart of lisinopril if needed for BP control * follow trend of hemodynamics (6) Insulin dependent diabetes mellitus: Status: Chronic Assessment and Plan: * follow accu-cheks * glycemic control per hospitalist Not much else to add from renal perspective -- will continue to follow from a distance. L Subjective Date/time seen: 09/01/24 14:37 Interval history: Follow-up for acute kidney injury/acute renal failure. Appears to be doing reasonably well at the time of my visit; no apparent distress noted; renal function/creatinine has almost normalized and CPK trending downward albeit extremely slowly; no other issues/events overnight or earlier this morning. Exam 2 Narrative: General: WD/WN female in NAD Heart: normal S1 and S2; no rub Lungs: clear to auscultation Abdomen: soft, nontender, nondistended, positive bowel sounds Extremities: no cyanosis or clubbing; no edema Skin: warm and intact Objective Data Vital Signs Vital Signs: Vital Signs Temp Pulse Resp BP Pulse Ox O2 Del Method 09/01/24 14:00 97.7 F 73 14 141/71 H 98 09/01/24 08:00 97.8 F 74 138/73 97 09/01/24 07:51 96 Room Air 09/01/24 00:00 97.7 F 77 16 153/77 H 96 08/31/24 20:23 96 Room Air 08/31/24 20:21 84 08/31/24 20:00 Room Air Intake/Output Intake/Output: Intake & Output 08/29/24 08/30/24 08/31/24 09/01/24 23:59 23:59 23:59 23:59 Intake Total 2014.7 1890 3140 2490 Output Total 940 1850 Balance 7 950 1290 2490 Meds/Results Medications: Active Medications Generic Name Dose Route Start Last Admin Trade Name Freq PRN Reason Stop Dose Admin Acetaminophen 650 mg 08/30/24 09:01 08/31/24 15:33 Acetaminophen 325 Mg Tablet PO 650 mg Q6H PRN Administration Mild Pain (1-3) or Fever Hydrocodone Bitart/Acetaminophen 1 tab 08/30/24 00:52 08/31/24 21:42 Hydrocodone/Acetaminophen (*Crx) 7.5-325 Mg Tablet PO 1 tab Q8H PRN Administration pain Albuterol 2.5 mg 08/30/24 00:52 Albuterol Sulfate Neb 2.5 Mg/3 Ml Inh INHALATION Q6HRT PRN Shortness Of Breath Or Wheezing Aspirin 81 mg 08/30/24 09:00 09/01/24 08:40 Aspirin 81 Mg Enteric Tablet PO 81 mg QAM JUDITH Administration Carvedilol 25 mg 09/01/24 09:00 09/01/24 09:04 Carvedilol 25 Mg Tablet PO 25 mg Q12HR JUDITH Administration Cyclobenzaprine HCl 5 mg 08/30/24 00:52 09/01/24 08:42 Cyclobenzaprine Hcl 5 Mg Tablet PO 5 mg TID PRN Administration muscle pain Dextrose 12.5 gm 08/30/24 00:55 Dextrose 50% 25 Gm/50 Ml Syringe IV PUSH PRN PRN Hypoglycemia Protocol Escitalopram Oxalate 10 mg 08/30/24 09:00 09/01/24 08:40 Escitalopram Oxalate 10 Mg Tablet PO 10 mg DAILY JUDITH Administration Famotidine 20 mg 08/30/24 00:52 Famotidine 20 Mg Tablet PO BID PRN acid reflux Fluticasone Propionate 1 spray 08/30/24 00:52 Fluticasone Propionate 0.05% Na Spr 16 Gm Btl (*Bkc) NASAL DAILY PRN allergy symptoms Glucose 15 gm 08/30/24 00:55 Glucose Oral Gel 15 Gm Of Glucse In 37.5 Gm Tube PO PRN PRN Hypoglycemia Protocol Heparin Sodium (Porcine) 5,000 units 08/30/24 14:00 09/01/24 14:00 Heparin Sodium 5,000 Units/Ml Vial SUB-Q 5,000 units Q8HR JUDITH Administration Hydralazine HCl 10 mg 08/31/24 09:30 08/31/24 21:45 Hydralazine Hcl 20 Mg/Ml Vial IV PUSH 10 mg Q4H PRN Administration Blood Pressure - High Hydroxychloroquine Sulfate 200 mg 08/30/24 09:00 09/01/24 08:40 Hydroxychloroquine Sulfate 200 Mg Tablet PO 200 mg Q12HR JUDITH Administration Dextrose 1,000 mls @ 100 mls/hr 08/30/24 00:55 Dextrose 5% 1,000 Ml IVPB PRN PRN Hypoglycemia Protocol Lactated Ringer's 1,000 mls @ 100 mls/hr 08/30/24 10:35 09/01/24 08:35 Lr - Lactated Ringers Iv IV CONT 100 mls/hr .Q10H JUDITH Administration Insulin Aspart 1 - 3 units 08/30/24 21:00 08/31/24 20:22 Insulin Aspart (*Bkc) 100 Units/Ml SUB-Q 1 units HS JUDITH Administration Protocol Insulin Aspart 4 - 8 units 08/30/24 12:00 09/01/24 11:47 Insulin Aspart (*Bkc) 100 Units/Ml SUB-Q 4 units TIDWM JUDITH Administration Protocol Insulin Aspart 5 units 09/01/24 12:00 09/01/24 11:48 Insulin Aspart (*Bkc) 100 Units/Ml SUB-Q 5 units TIDWM JUDITH Administration Insulin Glargine 30 units 09/01/24 18:00 Insulin Glargine (*Bkc) 100 Units/Ml SUB-Q QPM JUDITH Lisinopril 40 mg 09/01/24 09:00 09/01/24 08:44 Lisinopril 20 Mg Tablet PO 40 mg DAILY JUDITH Administration Loratadine 10 mg 08/30/24 09:00 09/01/24 08:40 Loratadine 10 Mg Tablet PO 10 mg QAM JUDITH Administration Magnesium Oxide 400 mg 08/30/24 21:00 08/31/24 20:22 Magnesium Oxide 400 Mg Tablet PO 400 mg HS JUDITH Administration Oxymetazoline HCl 1 spray 08/30/24 01:03 08/31/24 05:43 Oxymetazoline Hcl 0.05% Jaime 15 Ml Btl (*Bkc) NASAL 1 spray Q8H PRN Administration Congestion Prednisone 40 mg 08/30/24 08:10 09/01/24 08:40 Prednisone 20 Mg Tablet PO 40 mg DAILY@0800 JUDITH Administration Pregabalin 200 mg 08/30/24 09:00 09/01/24 08:40 Pregabalin (*Crx) 50 Mg Capsule PO 200 mg DAILY JUDITH Administration Fluticasone/Salmeterol 2 puff 08/30/24 08:00 09/01/24 07:50 Fluticasone/Salmeterol 230-21 Mcg Inhaler 1 Puff INHALATION 2 puff Q12HRT JUDITH Administration Trazodone HCl 50 mg 08/30/24 00:52 08/31/24 20:31 Trazodone Hcl 50 Mg Tablet PO 50 mg QHS PRN Administration Insomnia Radiology Results: ITS Impressions Chest X-Ray 08/29/24 16:59 IMPRESSION: No acute cardiopulmonary pathology Miscellaneous CT Procedure 08/29/24 18:35 IMPRESSION: Hepatomegaly. Mild body wall edema. Dermal thickening and subcutaneous inflammatory change/edema over the midline lower anterior abdomen, correlate for clinical findings of cellulitis/panniculitis. No CT evidence of sacral ulcer or sacral osteomyelitis. Thoracic Spine CT 08/29/24 20:06 IMPRESSION: No acute fracture or traumatic malalignment detected in the thoracic spine. Lumbar Spine MRI 08/30/24 16:24 IMPRESSION: 1. Multilevel facet joint disease. 2. No acute osseous abnormality. 3. Nonenhancing lesion. 4. Degenerative disc disease with mild diffuse disc bulge at the level of L5- S1. Thoracic Spine MRI 08/30/24 19:00 IMPRESSION: 1. Minimal thoracic spondylosis with no central canal or neural foraminal stenosis and with normal cord signal with no abnormally enhancing lesions. Labs Labs: Laboratory Tests 09/01/24 03:36 09/01/24 04:26 Calcium 8.9 Phosphorus 3.3 Magnesium 1.3 L Total Bilirubin 0.4 AST 181 H ALT 142 H Alkaline Phosphatase 44 Total Creatine Kinase 6183 H Total Protein 6.3 Albumin 3.5
[2024-09-01] MEDS: INSULIN GLARGINE (*BKC) 100 UNITS/ML 30 UNITS SUB-Q (17:25)
--- NOTE | 2024-09-01 17:42 | P.PNNEUR_ITS ---
Progress Note: A&P Assessment and Plan (1) Proximal myopathy: Code(s): G72.89 - Other specified myopathies Status: Acute (2) Insulin dependent diabetes mellitus: Status: Chronic (3) Rheumatoid arthritis: Code(s): M06.9 - Rheumatoid arthritis, unspecified Status: Acute Plan Possibly be statin induced myopathy due to rosuvastatin could be a consideration. Patient states that she was on this medication once a week and now recently it has been changed to daily. Her CPK was very high but is now co elisa down from over 16,000 down to 6183. The liver enzymes will go parallel with increase in CPK and also coming down. I would go ahead and order for HMGCR. From the point of investigations and noted that a MRI of the thoracic and lumbar spine was done. Clinically I do not find much to suggest cervical myelopathy however weakness in the leg should include an MRI of the cervical spine also and the possibility. neurology will follow. Subjective Date/time seen: 09/01/24 17:42 Interval history: The patient is 54-year-old with complaints of weakness in both lower limbs. She was in ICU and now been transferred to the floor. Her CPK was very high and creatinine was also high. She denied having any fall or injuries. She has history of insulin-dependent diabetes mellitus. She states that she was on another statin once a week which was changed over to a daily reaching recently. It appears that she was on rosuvastatin 40 mg a day which has now been stopped. Patient denies any other new symptoms. No weakness in upper limbs. No difficulty speech or swallowing. Review of Systems Review of Systems: All systems reviewed & are unremarkable except as noted in HPI and below Exam Narrative: Fully conscious alert, oriented to self time place and person. Speech is fluent and articulate. No aphasia or dysarthria. Examination head and neck was unremarkable. Cranial nerves on your testing intact. No facial asymmetry. Tongue was midline. Motor system normal power in both upper limbs however she has moderate weakness of the bilateral hip flexion or proximal muscle weakness sensory examination reveals some decreased sensation to vibration in the lower limbs. Deep tendon reflexes are decreased at knees and ankles. Objective Data Vital Signs Vital Signs: Vital Signs - 24 hr 08/31/24 20:00 08/31/24 20:21 08/31/24 20:23 Temperature Pulse Rate 84 Respiratory Rate Blood Pressure Pulse Oximetry 96 Oxygen Delivery Room Air Room Air 09/01/24 00:00 09/01/24 07:51 09/01/24 08:00 Temperature 97.7 F 97.8 F Pulse Rate 77 74 Respiratory Rate 16 Blood Pressure 153/77 H 138/73 Pulse Oximetry 96 96 97 Oxygen Delivery Room Air 09/01/24 14:00 Temperature 97.7 F Pulse Rate 73 Respiratory Rate 14 Blood Pressure 141/71 H Pulse Oximetry 98 Oxygen Delivery Intake/Output Intake/Output: Intake & Output 08/29/24 08/30/24 08/31/24 09/01/24 23:59 23:59 23:59 23:59 Intake Total 2014.7 1890 3140 2730 Output Total 940 1850 Balance 7 950 1290 2730 Meds/Results Medications: Active Medications Generic Name Dose Route Start Last Admin Trade Name Freq PRN Reason Stop Dose Admin Acetaminophen 650 mg 08/30/24 09:01 08/31/24 15:33 Acetaminophen 325 Mg Tablet PO 650 mg Q6H PRN Administration Mild Pain (1-3) or Fever Hydrocodone Bitart/Acetaminophen 1 tab 08/30/24 00:52 08/31/24 21:42 Hydrocodone/Acetaminophen (*Crx) 7.5-325 Mg Tablet PO 1 tab Q8H PRN Administration pain Albuterol 2.5 mg 08/30/24 00:52 Albuterol Sulfate Neb 2.5 Mg/3 Ml Inh INHALATION Q6HRT PRN Shortness Of Breath Or Wheezing Aspirin 81 mg 08/30/24 09:00 09/01/24 08:40 Aspirin 81 Mg Enteric Tablet PO 81 mg QAM JUDITH Administration Carvedilol 25 mg 09/01/24 09:00 09/01/24 09:04 Carvedilol 25 Mg Tablet PO 25 mg Q12HR JUDITH Administration Cyclobenzaprine HCl 5 mg 08/30/24 00:52 09/01/24 08:42 Cyclobenzaprine Hcl 5 Mg Tablet PO 5 mg TID PRN Administration muscle pain Dextrose 12.5 gm 08/30/24 00:55 Dextrose 50% 25 Gm/50 Ml Syringe IV PUSH PRN PRN Hypoglycemia Protocol Escitalopram Oxalate 10 mg 08/30/24 09:00 09/01/24 08:40 Escitalopram Oxalate 10 Mg Tablet PO 10 mg DAILY JUDITH Administration Famotidine 20 mg 08/30/24 00:52 Famotidine 20 Mg Tablet PO BID PRN acid reflux Fluticasone Propionate 1 spray 08/30/24 00:52 Fluticasone Propionate 0.05% Na Spr 16 Gm Btl (*Bkc) NASAL DAILY PRN allergy symptoms Glucose 15 gm 08/30/24 00:55 Glucose Oral Gel 15 Gm Of Glucse In 37.5 Gm Tube PO PRN PRN Hypoglycemia Protocol Heparin Sodium (Porcine) 5,000 units 08/30/24 14:00 09/01/24 14:00 Heparin Sodium 5,000 Units/Ml Vial SUB-Q 5,000 units Q8HR JUDITH Administration Hydralazine HCl 10 mg 08/31/24 09:30 08/31/24 21:45 Hydralazine Hcl 20 Mg/Ml Vial IV PUSH 10 mg Q4H PRN Administration Blood Pressure - High Hydroxychloroquine Sulfate 200 mg 08/30/24 09:00 09/01/24 08:40 Hydroxychloroquine Sulfate 200 Mg Tablet PO 200 mg Q12HR JUDITH Administration Dextrose 1,000 mls @ 100 mls/hr 08/30/24 00:55 Dextrose 5% 1,000 Ml IVPB PRN PRN Hypoglycemia Protocol Lactated Ringer's 1,000 mls @ 100 mls/hr 08/30/24 10:35 09/01/24 08:35 Lr - Lactated Ringers Iv IV CONT 100 mls/hr .Q10H JUDITH Administration Insulin Aspart 1 - 3 units 08/30/24 21:00 08/31/24 20:22 Insulin Aspart (*Bkc) 100 Units/Ml SUB-Q 1 units HS JUDITH Administration Protocol Insulin Aspart 4 - 8 units 08/30/24 12:00 09/01/24 17:24 Insulin Aspart (*Bkc) 100 Units/Ml SUB-Q 5 units TIDWM JUDITH Administration Protocol Insulin Aspart 5 units 09/01/24 12:00 09/01/24 17:24 Insulin Aspart (*Bkc) 100 Units/Ml SUB-Q 5 units TIDWM JUDITH Administration Insulin Glargine 30 units 09/01/24 18:00 09/01/24 17:25 Insulin Glargine (*Bkc) 100 Units/Ml SUB-Q 30 units QPM JUDITH Administration Lisinopril 40 mg 09/01/24 09:00 09/01/24 08:44 Lisinopril 20 Mg Tablet PO 40 mg DAILY JUDITH Administration Loratadine 10 mg 08/30/24 09:00 09/01/24 08:40 Loratadine 10 Mg Tablet PO 10 mg QAM JUDITH Administration Magnesium Oxide 400 mg 08/30/24 21:00 08/31/24 20:22 Magnesium Oxide 400 Mg Tablet PO 400 mg HS JUDITH Administration Oxymetazoline HCl 1 spray 08/30/24 01:03 08/31/24 05:43 Oxymetazoline Hcl 0.05% Jaime 15 Ml Btl (*Bkc) NASAL 1 spray Q8H PRN Administration Congestion Prednisone 40 mg 08/30/24 08:10 09/01/24 08:40 Prednisone 20 Mg Tablet PO 40 mg DAILY@0800 JUDITH Administration Pregabalin 200 mg 08/30/24 09:00 09/01/24 08:40 Pregabalin (*Crx) 50 Mg Capsule PO 200 mg DAILY JUDITH Administration Fluticasone/Salmeterol 2 puff 08/30/24 08:00 09/01/24 07:50 Fluticasone/Salmeterol 230-21 Mcg Inhaler 1 Puff INHALATION 2 puff Q12HRT JUDITH Administration Trazodone HCl 50 mg 08/30/24 00:52 08/31/24 20:31 Trazodone Hcl 50 Mg Tablet PO 50 mg QHS PRN Administration Insomnia Radiology Results: ITS Impressions Chest X-Ray 08/29/24 16:59 IMPRESSION: No acute cardiopulmonary pathology Miscellaneous CT Procedure 08/29/24 18:35 IMPRESSION: Hepatomegaly. Mild body wall edema. Dermal thickening and subcutaneous inflammatory change/edema over the midline lower anterior abdomen, correlate for clinical findings of cellulitis/panniculitis. No CT evidence of sacral ulcer or sacral osteomyelitis. Thoracic Spine CT 08/29/24 20:06 IMPRESSION: No acute fracture or traumatic malalignment detected in the thoracic spine. Lumbar Spine MRI 08/30/24 16:24 IMPRESSION: 1. Multilevel facet joint disease. 2. No acute osseous abnormality. 3. Nonenhancing lesion. 4. Degenerative disc disease with mild diffuse disc bulge at the level of L5- S1. Thoracic Spine MRI 08/30/24 19:00 IMPRESSION: 1. Minimal thoracic spondylosis with no central canal or neural foraminal stenosis and with normal cord signal with no abnormally enhancing lesions. Labs Labs: Laboratory Results - last 24 hr 08/30/24 08/31/24 09/01/24 09:16 20:15 03:36 WBC 10.8 H RBC 3.90 L Hgb 10.9 L Hct 32.2 L MCV 82.6 MCH 27.9 MCHC 33.9 RDW 13.6 Plt Count 182 MPV 10.3 Immature Gran % (Auto) 0.5 Neut % (Auto) 79.2 H Lymph % (Auto) 13.3 L [place] % (Auto) 6.9 Eos % (Auto) 0.0 Baso % (Auto) 0.1 L Lymph # (Auto) 1.43 [place] # (Auto) 0.7 H Eos # (Auto) 0.0 Baso # (Auto) 0.0 Abs Immat Gran (auto) 0.05 H Absolute Neuts (auto) 8.6 H Absolute Nucleated RBC 0.000 Nucleated RBC % 0.0 Sodium Potassium Chloride Carbon Dioxide Anion Gap BUN Creatinine Estim Creat Clear Calc Estimated GFR Glucose POC Capillary Glucose 339 H Calcium Phosphorus Magnesium Total Bilirubin AST ALT Alkaline Phosphatase Total Creatine Kinase Total Protein Albumin JERRY Screen Negative 09/01/24 09/01/24 09/01/24 04:26 07:36 11:31 WBC RBC Hgb Hct MCV MCH MCHC RDW Plt Count MPV Immature Gran % (Auto) Neut % (Auto) Lymph % (Auto) [place] % (Auto) Eos % (Auto) Baso % (Auto) Lymph # (Auto) [place] # (Auto) Eos # (Auto) Baso # (Auto) Abs Immat Gran (auto) Absolute Neuts (auto) Absolute Nucleated RBC Nucleated RBC % Sodium 137 Potassium 3.0 L Chloride 105 Carbon Dioxide 25 Anion Gap 7 BUN 23 H Creatinine 1.03 H Estim Creat Clear Calc 66 Estimated GFR 56 L Glucose 209 H POC Capillary Glucose 187 H 244 H Calcium 8.9 Phosphorus 3.3 Magnesium 1.3 L Total Bilirubin 0.4 AST 181 H ALT 142 H Alkaline Phosphatase 44 Total Creatine Kinase 6183 H Total Protein 6.3 Albumin 3.5 JERRY Screen 09/01/24 16:33 WBC RBC Hgb Hct MCV MCH MCHC RDW Plt Count MPV Immature Gran % (Auto) Neut % (Auto) Lymph % (Auto) [place] % (Auto) Eos % (Auto) Baso % (Auto) Lymph # (Auto) [place] # (Auto) Eos # (Auto) Baso # (Auto) Abs Immat Gran (auto) Absolute Neuts (auto) Absolute Nucleated RBC Nucleated RBC % Sodium Potassium Chloride Carbon Dioxide Anion Gap BUN Creatinine Estim Creat Clear Calc Estimated GFR Glucose POC Capillary Glucose 284 H Calcium Phosphorus Magnesium Total Bilirubin AST ALT Alkaline Phosphatase Total Creatine Kinase Total Protein Albumin JERRY Screen
[2024-09-01] MEDS: HYDROcodone/acetaminophen (*CRX) 7.5-325 MG TABLET 1 TAB PO (20:24)
[2024-09-01] MEDS: MAGNESIUM OXIDE 400 MG TABLET PO (20:24)
[2024-09-02] MEDS: LACTATED RINGERS 1,000 ML 100 ML IV CONT ×3 (00:45→21:48)
[2024-09-02 06:00] VITALS: BP 147/71; PULSE 78; RESP 18; TEMP 36.7; O2SAT 98
[2024-09-02 06:18] LABS: Hematocrit 31.1 % (37.0-47.0); Hemoglobin 10.5 g/dL (12.0-15.0); Immature Granulocyte Percent A 0.5 % (0-0.5); Lymphocytes Absolute Auto 2.25 K/mm3 (0.9-3.2); Mean Corpuscular HGB Conc 33.8 g/dl (32-36); Mean Corpuscular Hemoglobin 28.2 pg (26-34); Mean Corpuscular Volume 83.6 fl (80-100); Nucleated Red Blood Cells Absolute Auto 0.000 K/mm3 (0.0-0.012); Nucleated Red Blood Cells Perc 0.0 % (0.0-0.2); Platelet Count Result 194 k/mm3 (150-375); Red Blood Count 3.72 M/mm3 (4.2-5.4); White Blood Count 12.5 K/mm3 (4.5-10.0)
[2024-09-02 06:41] LABS: Alanine Aminotransferase 133 U/L (6-35); Albumin Level 3.1 g/dL (3.5-5.1); Alkaline Phosphatase 48 U/L (38-126); Anion Gap 7 mmol/L (4-12); Aspartate Amino Transferase 143 U/L (14-36); Bilirubin,Total 0.2 mg/dL (0.2-1.3); Blood Urea Nitrogen 20 mg/dL (7-17); Calcium 8.0 mg/dL (8.4-10.2); Carbon Dioxide 26 mmol/L (22-30); Chloride 107 mmol/L (98-107); Estimated CRCL calculation 73 ml/min; Estimated Glomerular Filt Rate > 60; Glucose 170 mg/dL (65-110); Magnesium 1.2 mg/dL (1.6-2.3); Potassium 3.0 mmol/L (3.4-5.0); Sodium 140 mmol/L (137-145); Total Protein 5.5 g/dL (6.3-8.2)
[2024-09-02 07:19] LABS: Creatine Kinase 4571 U/L (30-135)
[2024-09-02] MEDS: PREGABALIN (*CRX) 50 MG CAPSULE 200 MG PO (08:36)
[2024-09-02] MEDS: ASPIRIN 81 MG ENTERIC TABLET PO (08:36)
[2024-09-02 08:37] VITALS: PULSE 82
[2024-09-02] MEDS: HYDROXYCHLOROQUINE SULFATE 200 MG TABLET PO ×2 (08:37→21:46)
[2024-09-02] MEDS: LORATADINE 10 MG TABLET PO (08:37)
[2024-09-02] MEDS: ESCITALOPRAM OXALATE 10 MG TABLET PO (08:37)
[2024-09-02] MEDS: OXYMETAZOLINE HCL 0.05% NAS 15 ML BTL (*BKC) 1 SPRAY NASAL (08:38)
[2024-09-02] MEDS: INSULIN ASPART (*BKC) 100 UNITS/ML SUB-Q ×5 (08:42→21:56)
[2024-09-02 08:52] VITALS: O2SAT 97
[2024-09-02] MEDS: FLUTICASONE/SALMETEROL 230-21 MCG INHALER 1 PUFF 2 PUFF INHALATION ×2 (08:52→19:50)
--- NOTE | 2024-09-02 09:09 | PM.EVENT ---
Event Note Event Note Event Note: Renal function back to normal. renal will sign off
[2024-09-02] MEDS: HYDROcodone/acetaminophen (*CRX) 7.5-325 MG TABLET 1 TAB PO (10:51)
[2024-09-02] MEDS: MAGNESIUM SULF 2 GM/WATER 50ML 2 GM/50 ML BAG IVPB (12:47)
[2024-09-02] MEDS: POTASSIUM CHLORIDE 20 MEQ PACKET (FOR LIQUID) 40 MEQ PO (13:45)
[2024-09-02 14:00] VITALS: BP 107/52; PULSE 67; RESP 16; TEMP 36.3; O2SAT 97
--- NOTE | 2024-09-02 15:52 | PM.IMPN ---
Progress Note: A&P Assessment and Plan (1) Muscle weakness of lower extremity: Code(s): M62.81 - Muscle weakness (generalized) Status: Acute (2) Rhabdomyolysis: Code(s): M62.82 - Rhabdomyolysis Status: Acute (3) GIORGI (acute kidney injury): Code(s): N17.9 - Acute kidney failure, unspecified Status: Acute (4) Abnormal LFTs: Code(s): R79.89 - Other specified abnormal findings of blood chemistry Status: Acute (5) HTN (hypertension): Code(s): I10 - Essential (primary) hypertension Status: Chronic (6) HLD (hyperlipidemia): Code(s): E78.5 - Hyperlipidemia, unspecified Status: Chronic (7) Insulin dependent diabetes mellitus: Status: Chronic Plan 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, patient had been taking the statin once week and last week patient was seen by her centrifugal spinner and up the dose to daily, soon after patient developed the myopathy, upon arrival to the hospital patient CK levels were >16,000 today its has trended down to 4571, her BUN and Scr were 45/2.88, her AST and ALT were 500 and 223 respectively, patient was initially was admitted into ICU, the statin was stopped, patient is being hydrated, was seen by associate media director, practice professional and neurologist, patient BUN and Scr today are 20/.94 and similarly her liver enzymes have improved to 143 and 133, patient was transferred out of ICU and medsurge floor, patient clinical symptoms have improved too, will continue to monitor, will have PT/OT evaluate and patient will benefit going to acute rehab. will monitor. Subjective Date/time seen: 09/02/24 15:52 Interval history: Weakness H&P-Narrative: This is a pleasant 54-year-old female with a past medical history lower extremity edema, history of pneumonia, rheumatoid arthritis on hydroxychloroquine, asthma, obesity, iron deficiency anemia, anxiety and depression, GERD, hypertension, hyperlipidemia, insulin-dependent diabetes mellitus. She presents to [facility] ER on 08/29/2024 with the complaint of bilateral upper leg weakness for 4 days. She reports this happened suddenly 1 day after work. She cannot lift her legs at the hips but has good strength at the knees and ankles and feet and as such she cannot lift herself from a laying position, she can also not stand up from bending down. She has to use something to brace and push herself up. She has not had any sensory changes. No changes in bowel or bladder habits. Above the way she has full strength as well. Denies nausea vomiting diarrhea, abdominal pain, fever, change in vision, headache. She has not been ill recently. She reports her thighs are also stiff and very sore and they feel very tight and bulging. Also 4 days ago she developed a sore lower back by the tailbone and has been told there is an ulcer there. No discharge. He is adamant she has not been in mobile for long periods of time in the past 4 days, she is still able to walk and get around with the above-mentioned limitations. In the ER she was persistently hypertensive with systolic blood pressure in the 150s. Otherwise her vitals were within normal limits. WBC 9.7, hemoglobin 12, ESR 20, potassium 5.7, chloride 111, bicarb 17, BUN 45, serum creatinine 2.96. AST 500, ALT 2-3, creatinine kinase 16,000. Urinalysis demonstrating 1+ leukocyte esterase, no bacteria. Cloudy appearance. Chest x-ray without acute findings. CT abdomen pelvis lumbar without contrast demonstrating a paddle megaly, mild body wall edema, dermal thickening and edema/subcutaneous inflammatory changes over the midline lower anterior abdomen. CT thoracic spine without any acute fracture or malalignment. 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, patient had been taking the statin once week and last week patient was seen by her centrifugal spinner and up the dose to daily, soon after patient developed the myopathy, upon arrival to the hospital patient CK levels were >16,000 today its has trended down to 4571, her BUN and Scr were 45/2.88, her AST and ALT were 500 and 223 respectively, patient was initially was admitted into ICU, the statin was stopped, patient is being hydrated, was seen by associate media director, practice professional and neurologist, patient BUN and Scr today are 20/.94 and similarly her liver enzymes have improved to 143 and 133, patient was transferred out of ICU and medsurge floor, patient clinical symptoms have improved too, will continue to monitor, will have PT/OT evaluate and patient will benefit going to acute rehab. will monitor. Review of Systems Review of Systems: All systems reviewed & are unremarkable except as noted in HPI and below Exam Narrative: Morbidly obese Patient is comfortable, NAD HEENT: eyes are clear and none icteric LUNGS:CTA HEART: RR S1S2 ABD: BS+, Soft and nontender Lower extremities: no edema SKIN: nonjaundiced Neuro: grossly intact. Objective Data Vital Signs Vital Signs: Vital Signs - 24 hr 09/01/24 20:00 09/01/24 20:05 09/01/24 22:00 Temperature 36.6 C Pulse Rate 83 83 Respiratory Rate 18 18 Blood Pressure 150/74 H Pulse Oximetry 97 98 97 Oxygen Delivery Room Air Room Air 09/02/24 06:00 09/02/24 08:00 09/02/24 08:37 Temperature 36.7 C Pulse Rate 78 82 Respiratory Rate 18 Blood Pressure 147/71 H Pulse Oximetry 98 Oxygen Delivery Room Air 09/02/24 08:52 09/02/24 14:00 Temperature 36.3 C L Pulse Rate 67 Respiratory Rate 16 Blood Pressure 107/52 L Pulse Oximetry 97 97 Oxygen Delivery Room Air Intake/Output Intake/Output: Intake & Output 08/30/24 08/31/24 09/01/24 09/02/24 23:59 23:59 23:59 23:59 Intake Total 1890 3140 3730 1508.3 Output Total 940 1850 Balance 950 1290 3730 1508.3 Meds/Results Medications: Active Medications Generic Name Dose Route Start Last Admin Trade Name Freq PRN Reason Stop Dose Admin Acetaminophen 650 mg 08/30/24 09:01 08/31/24 15:33 Acetaminophen 325 Mg Tablet PO 650 mg Q6H PRN Administration Mild Pain (1-3) or Fever Hydrocodone Bitart/Acetaminophen 1 tab 08/30/24 00:52 09/02/24 10:51 Hydrocodone/Acetaminophen (*Crx) 7.5-325 Mg Tablet PO 1 tab Q8H PRN Administration pain Albuterol 2.5 mg 08/30/24 00:52 Albuterol Sulfate Neb 2.5 Mg/3 Ml Inh INHALATION Q6HRT PRN Shortness Of Breath Or Wheezing Aspirin 81 mg 08/30/24 09:00 09/02/24 08:36 Aspirin 81 Mg Enteric Tablet PO 81 mg QAM JUDITH Administration Carvedilol 25 mg 09/01/24 09:00 09/02/24 08:37 Carvedilol 25 Mg Tablet PO 25 mg Q12HR JUDITH Administration Cyclobenzaprine HCl 5 mg 08/30/24 00:52 09/01/24 20:24 Cyclobenzaprine Hcl 5 Mg Tablet PO 5 mg TID PRN Administration muscle pain Dextrose 12.5 gm 08/30/24 00:55 Dextrose 50% 25 Gm/50 Ml Syringe IV PUSH PRN PRN Hypoglycemia Protocol Escitalopram Oxalate 10 mg 08/30/24 09:00 09/02/24 08:37 Escitalopram Oxalate 10 Mg Tablet PO 10 mg DAILY JUDITH Administration Famotidine 20 mg 08/30/24 00:52 Famotidine 20 Mg Tablet PO BID PRN acid reflux Fluticasone Propionate 1 spray 08/30/24 00:52 Fluticasone Propionate 0.05% Na Spr 16 Gm Btl (*Bkc) NASAL DAILY PRN allergy symptoms Glucose 15 gm 08/30/24 00:55 Glucose Oral Gel 15 Gm Of Glucse In 37.5 Gm Tube PO PRN PRN Hypoglycemia Protocol Heparin Sodium (Porcine) 5,000 units 08/30/24 14:00 09/02/24 14:12 Heparin Sodium 5,000 Units/Ml Vial SUB-Q 5,000 units Q8HR JUDITH Administration Hydralazine HCl 10 mg 08/31/24 09:30 08/31/24 21:45 Hydralazine Hcl 20 Mg/Ml Vial IV PUSH 10 mg Q4H PRN Administration Blood Pressure - High Hydroxychloroquine Sulfate 200 mg 08/30/24 09:00 09/02/24 08:37 Hydroxychloroquine Sulfate 200 Mg Tablet PO 200 mg Q12HR JUDITH Administration Dextrose 1,000 mls @ 100 mls/hr 08/30/24 00:55 Dextrose 5% 1,000 Ml IVPB PRN PRN Hypoglycemia Protocol Lactated Ringer's 1,000 mls @ 100 mls/hr 08/30/24 10:35 09/02/24 07:02 Lr - Lactated Ringers Iv IV CONT 100 mls/hr .Q10H JUDITH Administration Insulin Aspart 1 - 3 units 08/30/24 21:00 09/01/24 20:26 Insulin Aspart (*Bkc) 100 Units/Ml SUB-Q 2 units HS JUDITH Administration Protocol Insulin Aspart 4 - 8 units 08/30/24 12:00 09/02/24 12:47 Insulin Aspart (*Bkc) 100 Units/Ml SUB-Q Not Given TIDWM [facility] Protocol Insulin Aspart 5 units 09/01/24 12:00 09/02/24 12:46 Insulin Aspart (*Bkc) 100 Units/Ml SUB-Q 5 units TIDWM JUDITH Administration Insulin Glargine 30 units 09/01/24 18:00 09/01/24 17:25 Insulin Glargine (*Bkc) 100 Units/Ml SUB-Q 30 units QPM JUDITH Administration Lisinopril 40 mg 09/01/24 09:00 09/02/24 08:37 Lisinopril 20 Mg Tablet PO 40 mg DAILY JUDITH Administration Loratadine 10 mg 08/30/24 09:00 09/02/24 08:37 Loratadine 10 Mg Tablet PO 10 mg QAM JUDITH Administration Magnesium Oxide 400 mg 08/30/24 21:00 09/01/24 20:24 Magnesium Oxide 400 Mg Tablet PO 400 mg HS JUDITH Administration Oxymetazoline HCl 1 spray 08/30/24 01:03 09/02/24 08:38 Oxymetazoline Hcl 0.05% Jaime 15 Ml Btl (*Bkc) NASAL 1 spray Q8H PRN Administration Congestion Prednisone 40 mg 08/30/24 08:10 09/02/24 08:36 Prednisone 20 Mg Tablet PO 40 mg DAILY@0800 JUDITH Administration Pregabalin 200 mg 08/30/24 09:00 09/02/24 08:36 Pregabalin (*Crx) 50 Mg Capsule PO 200 mg DAILY JUDITH Administration Fluticasone/Salmeterol 2 puff 08/30/24 08:00 09/02/24 08:52 Fluticasone/Salmeterol 230-21 Mcg Inhaler 1 Puff INHALATION 2 puff Q12HRT JUDITH Administration Trazodone HCl 50 mg 08/30/24 00:52 09/01/24 20:24 Trazodone Hcl 50 Mg Tablet PO 50 mg QHS PRN Administration Insomnia Radiology Results: ITS Impressions Chest X-Ray 08/29/24 16:59 IMPRESSION: No acute cardiopulmonary pathology Miscellaneous CT Procedure 08/29/24 18:35 IMPRESSION: Hepatomegaly. Mild body wall edema. Dermal thickening and subcutaneous inflammatory change/edema over the midline lower anterior abdomen, correlate for clinical findings of cellulitis/panniculitis. No CT evidence of sacral ulcer or sacral osteomyelitis. Thoracic Spine CT 08/29/24 20:06 IMPRESSION: No acute fracture or traumatic malalignment detected in the thoracic spine. Lumbar Spine MRI 08/30/24 16:24 IMPRESSION: 1. Multilevel facet joint disease. 2. No acute osseous abnormality. 3. Nonenhancing lesion. 4. Degenerative disc disease with mild diffuse disc bulge at the level of L5-S1. Thoracic Spine MRI 08/30/24 19:00 IMPRESSION: 1. Minimal thoracic spondylosis with no central canal or neural foraminal stenosis and with normal cord signal with no abnormally enhancing lesions. Labs Labs: Laboratory Results - last 24 hr 09/01/24 09/01/24 09/02/24 16:33 20:24 06:08 WBC 12.5 H RBC 3.72 L Hgb 10.5 L Hct 31.1 L MCV 83.6 MCH 28.2 MCHC 33.8 RDW 13.9 Plt Count 194 MPV 10.3 Immature Gran % (Auto) 0.5 Neut % (Auto) 73.3 H Lymph % (Auto) 18.0 L Bowman % (Auto) 8.0 Eos % (Auto) 0.0 Baso % (Auto) 0.2 Lymph # (Auto) 2.25 Bowman # (Auto) 1.0 H Eos # (Auto) 0.0 Baso # (Auto) 0.0 Abs Immat Gran (auto) 0.06 H Absolute Neuts (auto) 9.2 H Absolute Nucleated RBC 0.000 Nucleated RBC % 0.0 Sodium 140 Potassium 3.0 L Chloride 107 Carbon Dioxide 26 Anion Gap 7 BUN 20 H Creatinine 0.94 Estim Creat Clear Calc 73 Estimated GFR > 60 Glucose 170 H POC Capillary Glucose 284 H 258 H Calcium 8.0 L Phosphorus 2.8 Magnesium 1.2 L Total Bilirubin 0.2 AST 143 H ALT 133 H Alkaline Phosphatase 48 Total Creatine Kinase 4571 H Total Protein 5.5 L Albumin 3.1 L 09/02/24 09/02/24 08:18 11:29 WBC RBC Hgb Hct MCV MCH MCHC RDW Plt Count MPV Immature Gran % (Auto) Neut % (Auto) Lymph % (Auto) Bowman % (Auto) Eos % (Auto) Baso % (Auto) Lymph # (Auto) Bowman # (Auto) Eos # (Auto) Baso # (Auto) Abs Immat Gran (auto) Absolute Neuts (auto) Absolute Nucleated RBC Nucleated RBC % Sodium Potassium Chloride Carbon Dioxide Anion Gap BUN Creatinine Estim Creat Clear Calc Estimated GFR Glucose POC Capillary Glucose 129 H 150 H Calcium Phosphorus Magnesium Total Bilirubin AST ALT Alkaline Phosphatase Total Creatine Kinase Total Protein Albumin
[2024-09-02] MEDS: INSULIN GLARGINE (*BKC) 100 UNITS/ML 30 UNITS SUB-Q (17:32)
[2024-09-02] MEDS: CYCLOBENZAPRINE HCL 5 MG TABLET PO (21:46)
[2024-09-02] MEDS: MAGNESIUM OXIDE 400 MG TABLET PO (21:46)
[2024-09-02 22:00] VITALS: BP 152/67; PULSE 68; RESP 18; TEMP 36.6; O2SAT 98
[2024-09-03] VITALS (9 sets, daily range): BP systolic 118–148; BP diastolic 68–71; PULSE 59–79; RESP 18; TEMP 36.2–36.8; O2SAT 95–99
[2024-09-03] MEDS: HYDROcodone/acetaminophen (*CRX) 7.5-325 MG TABLET 1 TAB PO ×2 (04:44→21:02)
[2024-09-03 06:06] LABS: Hematocrit 33.2 % (37.0-47.0); Hemoglobin 10.8 g/dL (12.0-15.0); Immature Granulocyte Percent A 0.8 % (0-0.5); Lymphocytes Absolute Auto 2.64 K/mm3 (0.9-3.2); Mean Corpuscular HGB Conc 32.5 g/dl (32-36); Mean Corpuscular Hemoglobin 27.9 pg (26-34); Mean Corpuscular Volume 85.8 fl (80-100); Nucleated Red Blood Cells Absolute Auto 0.000 K/mm3 (0.0-0.012); Nucleated Red Blood Cells Perc 0.0 % (0.0-0.2); Platelet Count Result 202 k/mm3 (150-375); Red Blood Count 3.87 M/mm3 (4.2-5.4); White Blood Count 11.8 K/mm3 (4.5-10.0)
[2024-09-03 06:41] LABS: Alanine Aminotransferase 140 U/L (6-35); Albumin Level 3.2 g/dL (3.5-5.1); Alkaline Phosphatase 55 U/L (38-126); Anion Gap 8 mmol/L (4-12); Aspartate Amino Transferase 116 U/L (14-36); Bilirubin,Total 0.3 mg/dL (0.2-1.3); Blood Urea Nitrogen 18 mg/dL (7-17); Calcium 7.6 mg/dL (8.4-10.2); Carbon Dioxide 26 mmol/L (22-30); Chloride 106 mmol/L (98-107); Creatine Kinase 2099 U/L (30-135); Estimated CRCL calculation 97 ml/min; Estimated Glomerular Filt Rate > 60; Glucose 136 mg/dL (65-110); Magnesium 1.4 mg/dL (1.6-2.3); Sodium 140 mmol/L (137-145); Total Protein 5.8 g/dL (6.3-8.2)
[2024-09-03 06:42] LABS: Potassium 2.6 mmol/L (3.4-5.0)
[2024-09-03] MEDS: POTASSIUM CHLORIDE INJ 40 MEQ in SODIUM CHLORIDE 0.9% IV 500 ML 130 MEQ IVPB (07:30)
[2024-09-03] MEDS: POTASSIUM CHLORIDE 20 MEQ ER TABLET 40 MEQ PO ×3 (07:44→21:02)
[2024-09-03] MEDS: INSULIN ASPART (*BKC) 100 UNITS/ML SUB-Q ×6 (08:12→21:01)
[2024-09-03] MEDS: ASPIRIN 81 MG ENTERIC TABLET PO (08:12)
[2024-09-03] MEDS: LORATADINE 10 MG TABLET PO (08:12)
[2024-09-03] MEDS: ESCITALOPRAM OXALATE 10 MG TABLET PO (08:12)
[2024-09-03] MEDS: HYDROXYCHLOROQUINE SULFATE 200 MG TABLET PO ×2 (08:12→21:02)
[2024-09-03] MEDS: PREGABALIN (*CRX) 50 MG CAPSULE 200 MG PO (08:13)
[2024-09-03] MEDS: FLUTICASONE/SALMETEROL 230-21 MCG INHALER 1 PUFF 2 PUFF INHALATION ×2 (09:00→20:00)
[2024-09-03] MEDS: MAGNESIUM SULF 2 GM/WATER 50ML 2 GM/50 ML BAG IVPB (09:30)
--- NOTE | 2024-09-03 12:41 | PM.IMPN ---
Progress Note: A&P Assessment and Plan (1) Muscle weakness of lower extremity: Code(s): M62.81 - Muscle weakness (generalized) Status: Acute (2) Rhabdomyolysis: Code(s): M62.82 - Rhabdomyolysis Status: Acute (3) GIORGI (acute kidney injury): Code(s): N17.9 - Acute kidney failure, unspecified Status: Acute (4) Abnormal LFTs: Code(s): R79.89 - Other specified abnormal findings of blood chemistry Status: Acute (5) HTN (hypertension): Code(s): I10 - Essential (primary) hypertension Status: Chronic (6) HLD (hyperlipidemia): Code(s): E78.5 - Hyperlipidemia, unspecified Status: Chronic (7) Insulin dependent diabetes mellitus: Status: Chronic Plan 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, patient had been taking the statin once week and last week patient was seen by her non morse intercept technician and up the dose to daily, soon after patient developed the myopathy, upon arrival to the hospital patient CK levels were >16,000 today its has trended down to 2098, her BUN and Scr were 45/2.88, her AST and ALT were 500 and 223 respectively, patient was initially was admitted into ICU, the statin was stopped, patient is being hydrated, was seen by automobile body repairer, laundry machine operator and neurologist, patient BUN and Scr today are 18/0.7 and similarly her liver enzymes have improved to 116/140, patient was transferred out of ICU and medsurge floor, patient clinical symptoms have improved too, still has some muscular pain, will continue to monitor, will have PT/OT evaluate and patient will benefit going to acute rehab. will monitor. Subjective Date/time seen: 09/03/24 12:41 Interval history: Weakness H&P-Narrative: This is a pleasant 54-year-old female with a past medical history lower extremity edema, history of pneumonia, rheumatoid arthritis on hydroxychloroquine, asthma, obesity, iron deficiency anemia, anxiety and depression, GERD, hypertension, hyperlipidemia, insulin-dependent diabetes mellitus. She presents to [facility] ER on 08/29/2024 with the complaint of bilateral upper leg weakness for 4 days. She reports this happened suddenly 1 day after work. She cannot lift her legs at the hips but has good strength at the knees and ankles and feet and as such she cannot lift herself from a laying position, she can also not stand up from bending down. She has to use something to brace and push herself up. She has not had any sensory changes. No changes in bowel or bladder habits. Above the way she has full strength as well. Denies nausea vomiting diarrhea, abdominal pain, fever, change in vision, headache. She has not been ill recently. She reports her thighs are also stiff and very sore and they feel very tight and bulging. Also 4 days ago she developed a sore lower back by the tailbone and has been told there is an ulcer there. No discharge. He is adamant she has not been in mobile for long periods of time in the past 4 days, she is still able to walk and get around with the above-mentioned limitations. In the ER she was persistently hypertensive with systolic blood pressure in the 150s. Otherwise her vitals were within normal limits. WBC 9.7, hemoglobin 12, ESR 20, potassium 5.7, chloride 111, bicarb 17, BUN 45, serum creatinine 2.96. AST 500, ALT 2-3, creatinine kinase 16,000. Urinalysis demonstrating 1+ leukocyte esterase, no bacteria. Cloudy appearance. Chest x-ray without acute findings. CT abdomen pelvis lumbar without contrast demonstrating a paddle megaly, mild body wall edema, dermal thickening and edema/subcutaneous inflammatory changes over the midline lower anterior abdomen. CT thoracic spine without any acute fracture or malalignment. 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, patient had been taking the statin once week and last week patient was seen by her non morse intercept technician and up the dose to daily, soon after patient developed the myopathy, upon arrival to the hospital patient CK levels were >16,000 today its has trended down to 2098, her BUN and Scr were 45/2.88, her AST and ALT were 500 and 223 respectively, patient was initially was admitted into ICU, the statin was stopped, patient is being hydrated, was seen by automobile body repairer, laundry machine operator and neurologist, patient BUN and Scr today are 18/0.7 and similarly her liver enzymes have improved to 116/140, patient was transferred out of ICU and medsurge floor, patient clinical symptoms have improved too, still has some muscular pain, will continue to monitor, will have PT/OT evaluate and patient will benefit going to acute rehab. will monitor. Review of Systems Review of Systems: All systems reviewed & are unremarkable except as noted in HPI and below Exam Narrative: Morbidly obese Patient is comfortable, NAD HEENT: eyes are clear and none icteric LUNGS:CTA HEART: RR S1S2 ABD: BS+, Soft and nontender Lower extremities: no edema SKIN: nonjaundiced Neuro: grossly intact. Objective Data Vital Signs Vital Signs: Vital Signs - 24 hr 09/02/24 14:00 09/02/24 20:00 09/02/24 22:00 Temperature 36.3 C L 36.6 C Pulse Rate 67 68 Respiratory Rate 16 18 Blood Pressure 107/52 L 152/67 H Pulse Oximetry 97 98 Oxygen Delivery Room Air 09/03/24 06:00 09/03/24 08:00 09/03/24 08:13 Temperature 36.8 C Pulse Rate 66 59 L Respiratory Rate 18 Blood Pressure 148/69 H Pulse Oximetry 99 Oxygen Delivery Room Air 09/03/24 09:01 Temperature Pulse Rate Respiratory Rate Blood Pressure Pulse Oximetry 96 Oxygen Delivery Room Air Intake/Output Intake/Output: Intake & Output 08/31/24 09/01/24 09/02/24 09/03/24 23:59 23:59 23:59 23:59 Intake Total 3140 3730 2748.3 420 Output Total 1850 Balance 1290 3730 2748.3 420 Meds/Results Medications: Active Medications Generic Name Dose Route Start Last Admin Trade Name Freq PRN Reason Stop Dose Admin Acetaminophen 650 mg 08/30/24 09:01 08/31/24 15:33 Acetaminophen 325 Mg Tablet PO 650 mg Q6H PRN Administration Mild Pain (1-3) or Fever Hydrocodone Bitart/Acetaminophen 1 tab 08/30/24 00:52 09/03/24 04:44 Hydrocodone/Acetaminophen (*Crx) 7.5-325 Mg Tablet PO 1 tab Q8H PRN Administration pain Albuterol 2.5 mg 08/30/24 00:52 Albuterol Sulfate Neb 2.5 Mg/3 Ml Inh INHALATION Q6HRT PRN Shortness Of Breath Or Wheezing Aspirin 81 mg 08/30/24 09:00 09/03/24 08:12 Aspirin 81 Mg Enteric Tablet PO 81 mg QAM JUDITH Administration Carvedilol 25 mg 09/01/24 09:00 09/03/24 08:13 Carvedilol 25 Mg Tablet PO 25 mg Q12HR JUDITH Administration Cyclobenzaprine HCl 5 mg 08/30/24 00:52 09/02/24 21:46 Cyclobenzaprine Hcl 5 Mg Tablet PO 5 mg TID PRN Administration muscle pain Dextrose 12.5 gm 08/30/24 00:55 Dextrose 50% 25 Gm/50 Ml Syringe IV PUSH PRN PRN Hypoglycemia Protocol Escitalopram Oxalate 10 mg 08/30/24 09:00 09/03/24 08:12 Escitalopram Oxalate 10 Mg Tablet PO 10 mg DAILY JUDITH Administration Famotidine 20 mg 08/30/24 00:52 Famotidine 20 Mg Tablet PO BID PRN acid reflux Fluticasone Propionate 1 spray 08/30/24 00:52 Fluticasone Propionate 0.05% Na Spr 16 Gm Btl (*Bkc) NASAL DAILY PRN allergy symptoms Glucose 15 gm 08/30/24 00:55 Glucose Oral Gel 15 Gm Of Glucse In 37.5 Gm Tube PO PRN PRN Hypoglycemia Protocol Heparin Sodium (Porcine) 5,000 units 08/30/24 14:00 09/03/24 04:44 Heparin Sodium 5,000 Units/Ml Vial SUB-Q 5,000 units Q8HR JUDITH Administration Hydralazine HCl 10 mg 08/31/24 09:30 08/31/24 21:45 Hydralazine Hcl 20 Mg/Ml Vial IV PUSH 10 mg Q4H PRN Administration Blood Pressure - High Hydroxychloroquine Sulfate 200 mg 08/30/24 09:00 09/03/24 08:12 Hydroxychloroquine Sulfate 200 Mg Tablet PO 200 mg Q12HR JUDITH Administration Dextrose 1,000 mls @ 100 mls/hr 08/30/24 00:55 Dextrose 5% 1,000 Ml IVPB PRN PRN Hypoglycemia Protocol Lactated Ringer's 1,000 mls @ 100 mls/hr 08/30/24 10:35 09/02/24 21:48 Lr - Lactated Ringers Iv IV CONT 100 mls/hr .Q10H JUDITH Administration Insulin Aspart 1 - 3 units 08/30/24 21:00 09/02/24 21:56 Insulin Aspart (*Bkc) 100 Units/Ml SUB-Q 2 units HS JUDITH Administration Protocol Insulin Aspart 4 - 8 units 08/30/24 12:00 09/03/24 12:18 Insulin Aspart (*Bkc) 100 Units/Ml SUB-Q 4 units TIDWM JUDITH Administration Protocol Insulin Aspart 5 units 09/01/24 12:00 09/03/24 12:18 Insulin Aspart (*Bkc) 100 Units/Ml SUB-Q 5 units TIDWM JUDITH Administration Insulin Glargine 30 units 09/01/24 18:00 09/02/24 17:32 Insulin Glargine (*Bkc) 100 Units/Ml SUB-Q 30 units QPM JUDITH Administration Lisinopril 40 mg 09/01/24 09:00 09/03/24 08:12 Lisinopril 20 Mg Tablet PO 40 mg DAILY JUDITH Administration Loratadine 10 mg 08/30/24 09:00 09/03/24 08:12 Loratadine 10 Mg Tablet PO 10 mg QAM JUDITH Administration Magnesium Oxide 400 mg 08/30/24 21:00 09/02/24 21:46 Magnesium Oxide 400 Mg Tablet PO 400 mg HS JUDITH Administration Oxymetazoline HCl 1 spray 08/30/24 01:03 09/02/24 08:38 Oxymetazoline Hcl 0.05% Jaime 15 Ml Btl (*Bkc) NASAL 1 spray Q8H PRN Administration Congestion Potassium Chloride 40 meq 09/03/24 09:00 09/03/24 09:31 Potassium Chloride 20 Meq Er Tablet PO 40 meq DAILY JUIDTH Administration Prednisone 40 mg 08/30/24 08:10 09/03/24 07:44 Prednisone 20 Mg Tablet PO 40 mg DAILY@0800 JUDITH Administration Pregabalin 200 mg 08/30/24 09:00 09/03/24 08:13 Pregabalin (*Crx) 50 Mg Capsule PO 200 mg DAILY JUDITH Administration Fluticasone/Salmeterol 2 puff 08/30/24 08:00 09/03/24 09:00 Fluticasone/Salmeterol 230-21 Mcg Inhaler 1 Puff INHALATION 2 puff Q12HRT JUDITH Administration Trazodone HCl 50 mg 08/30/24 00:52 09/02/24 21:46 Trazodone Hcl 50 Mg Tablet PO 50 mg QHS PRN Administration Insomnia Radiology Results: ITS Impressions Chest X-Ray 08/29/24 16:59 IMPRESSION: No acute cardiopulmonary pathology Miscellaneous CT Procedure 08/29/24 18:35 IMPRESSION: Hepatomegaly. Mild body wall edema. Dermal thickening and subcutaneous inflammatory change/edema over the midline lower anterior abdomen, correlate for clinical findings of cellulitis/panniculitis. No CT evidence of sacral ulcer or sacral osteomyelitis. Thoracic Spine CT 08/29/24 20:06 IMPRESSION: No acute fracture or traumatic malalignment detected in the thoracic spine. Lumbar Spine MRI 08/30/24 16:24 IMPRESSION: 1. Multilevel facet joint disease. 2. No acute osseous abnormality. 3. Nonenhancing lesion. 4. Degenerative disc disease with mild diffuse disc bulge at the level of L5-S1. Thoracic Spine MRI 08/30/24 19:00 IMPRESSION: 1. Minimal thoracic spondylosis with no central canal or neural foraminal stenosis and with normal cord signal with no abnormally enhancing lesions. Labs Labs: Laboratory Results - last 24 hr 09/02/24 09/02/24 09/03/24 16:40 21:20 05:47 WBC 11.8 H RBC 3.87 L Hgb 10.8 L Hct 33.2 L MCV 85.8 MCH 27.9 MCHC 32.5 RDW 14.2 Plt Count 202 MPV 10.4 Immature Gran % (Auto) 0.8 H Neut % (Auto) 68.8 Lymph % (Auto) 22.5 Giles % (Auto) 7.7 Eos % (Auto) 0.0 Baso % (Auto) 0.2 Lymph # (Auto) 2.64 Giles # (Auto) 0.9 H Eos # (Auto) 0.0 Baso # (Auto) 0.0 Abs Immat Gran (auto) 0.09 H Absolute Neuts (auto) 8.1 H Absolute Nucleated RBC 0.000 Nucleated RBC % 0.0 Sodium 140 Potassium 2.6 L* Chloride 106 Carbon Dioxide 26 Anion Gap 8 BUN 18 H Creatinine 0.70 Estim Creat Clear Calc 97 Estimated GFR > 60 Glucose 136 H POC Capillary Glucose 296 H 328 H Calcium 7.6 L Phosphorus 2.6 Magnesium 1.4 L Total Bilirubin 0.3 AST 116 H ALT 140 H Alkaline Phosphatase 55 Total Creatine Kinase 2099 H Total Protein 5.8 L Albumin 3.2 L 07/19/25 07/19/25 07:48 11:34 WBC RBC Hgb Hct MCV MCH MCHC RDW Plt Count MPV Immature Gran % (Auto) Neut % (Auto) Lymph % (Auto) Giles % (Auto) Eos % (Auto) Baso % (Auto) Lymph # (Auto) Giles # (Auto) Eos # (Auto) Baso # (Auto) Abs Immat Gran (auto) Absolute Neuts (auto) Absolute Nucleated RBC Nucleated RBC % Sodium Potassium Chloride Carbon Dioxide Anion Gap BUN Creatinine Estim Creat Clear Calc Estimated GFR Glucose POC Capillary Glucose 111 H 221 H Calcium Phosphorus Magnesium Total Bilirubin AST ALT Alkaline Phosphatase Total Creatine Kinase Total Protein Albumin
[2024-09-03 14:21] LABS: Albumin Level 3.1 g/dL (3.5-5.1); Anion Gap 6 mmol/L (4-12); Blood Urea Nitrogen 17 mg/dL (7-17); Calcium 7.7 mg/dL (8.4-10.2); Carbon Dioxide 25 mmol/L (22-30); Chloride 107 mmol/L (98-107); Estimated CRCL calculation 94 ml/min; Estimated Glomerular Filt Rate > 60; Glucose 267 mg/dL (65-110); Magnesium 1.8 mg/dL (1.6-2.3); Potassium 3.7 mmol/L (3.4-5.0); Sodium 138 mmol/L (137-145)
[2024-09-03] MEDS: INSULIN GLARGINE (*BKC) 100 UNITS/ML 30 UNITS SUB-Q (17:14)
[2024-09-03] MEDS: LACTATED RINGERS 1,000 ML 100 ML IV CONT (18:32)
[2024-09-03] MEDS: CYCLOBENZAPRINE HCL 5 MG TABLET PO (21:02)
[2024-09-03] MEDS: MAGNESIUM OXIDE 400 MG TABLET PO (21:03)
[2024-09-04] VITALS (12 sets, daily range): BP systolic 122–176; BP diastolic 60–77; PULSE 63–88; RESP 17–18; TEMP 36.3–36.8; O2SAT 96–98
[2024-09-04] MEDS: LACTATED RINGERS 1,000 ML 100 ML IV CONT ×2 (05:02→15:59)
[2024-09-04 06:18] LABS: Hematocrit 32.9 % (37.0-47.0); Hemoglobin 10.4 g/dL (12.0-15.0); Immature Granulocyte Percent A 0.9 % (0-0.5); Lymphocytes Absolute Auto 2.99 K/mm3 (0.9-3.2); Mean Corpuscular HGB Conc 31.6 g/dl (32-36); Mean Corpuscular Hemoglobin 27.8 pg (26-34); Mean Corpuscular Volume 88.0 fl (80-100); Nucleated Red Blood Cells Absolute Auto 0.020 K/mm3 (0.0-0.012); Nucleated Red Blood Cells Perc 0.2 % (0.0-0.2); Platelet Count Result 211 k/mm3 (150-375); Red Blood Count 3.74 M/mm3 (4.2-5.4); White Blood Count 10.5 K/mm3 (4.5-10.0)
[2024-09-04 06:41] LABS: Alanine Aminotransferase 122 U/L (6-35); Albumin Level 3.1 g/dL (3.5-5.1); Alkaline Phosphatase 44 U/L (38-126); Anion Gap 6 mmol/L (4-12); Aspartate Amino Transferase 75 U/L (14-36); Bilirubin,Total 0.3 mg/dL (0.2-1.3); Blood Urea Nitrogen 19 mg/dL (7-17); Calcium 8.2 mg/dL (8.4-10.2); Carbon Dioxide 22 mmol/L (22-30); Chloride 112 mmol/L (98-107); Creatine Kinase 692 U/L (30-135); Estimated CRCL calculation 97 ml/min; Estimated Glomerular Filt Rate > 60; Glucose 114 mg/dL (65-110); Magnesium 1.7 mg/dL (1.6-2.3); Potassium 3.6 mmol/L (3.4-5.0); Sodium 140 mmol/L (137-145); Total Protein 5.7 g/dL (6.3-8.2)
[2024-09-04] MEDS: FLUTICASONE/SALMETEROL 230-21 MCG INHALER 1 PUFF 2 PUFF INHALATION ×2 (07:11→19:47)
[2024-09-04] MEDS: HYDROcodone/acetaminophen (*CRX) 7.5-325 MG TABLET 1 TAB PO ×2 (08:39→20:27)
[2024-09-04] MEDS: HYDROXYCHLOROQUINE SULFATE 200 MG TABLET PO ×2 (08:39→21:37)
[2024-09-04] MEDS: ASPIRIN 81 MG ENTERIC TABLET PO (08:39)
[2024-09-04] MEDS: PREGABALIN (*CRX) 50 MG CAPSULE 200 MG PO (08:39)
[2024-09-04] MEDS: ESCITALOPRAM OXALATE 10 MG TABLET PO (08:39)
[2024-09-04] MEDS: LORATADINE 10 MG TABLET PO (08:39)
[2024-09-04] MEDS: POTASSIUM CHLORIDE 20 MEQ ER TABLET 40 MEQ PO (08:39)
[2024-09-04] MEDS: POTASSIUM CHLORIDE 20 MEQ PACKET (FOR LIQUID) 40 MEQ PO (08:40)
--- NOTE | 2024-09-04 09:46 | WPDNEUROPN ---
Subjective Date/time seen: 09/04/24 09:46 Interval history: 54 years old lady admitted to the hospital through the emergency room for the complains of weakness of the upper lower extremities a full day's duration resulting in inability to stand or get up from the couch or lift her lower extremities to get into the car in addition to the ongoing history of rheumatoid arthritis. Medications include aspirin 81mg daily, rosuvastatin 40mg weekly, trazodone 50mg at night p.r.n., hydroxychloroquine 200 q.12 hours, ibuprofen p.r.n., cyclobenzaprine 5mg 3 times a day p.r.n., E Site a low pram 10mg daily, hydrocodone p.r.n., insulin 50units subQ 3 times a day pregabalin 200mg daily, and she has notedly allergic to atenolol, as mentioned before ongoing history of rheumatoid arthritis in addition to hypertension and hyperlipidemia and diabetes mellitus, history of smoking ears smoked 20, but former smoker, and 2 drinks per week, initial exam in the emergency room mentally nonfocal but inability to flex the hips. Vital signs normal, CBC normal, BMP with BUN 45 and creatinine 2.96 in by the driver's license reviewing officer for the acute renal injury attributed to rhabdomyolysis, on initial telephone neuro consult was advised to rule out the possibility of the spinal cord involvement in addition to the rheumatological problem, MRI of the lumbar spine consistent with multilevel facet joint disease, MRI of thoracic spine again with minimal an MRI of cervical spine with minimal Degenerative disease, hematologically AST 75, ALT 122, CK 692 total protein 5.7, and albumin 3.1, initially hospitalized in the intensive care where other studies were ordered, seen by a neurologist with consideration of myopathy due to rosuvastatin, CPK was trending downward order to have HMGCR by Dr. Benitez, seen by driver's license reviewing officer renal function back to normal. At present being considered to have the statin do some myopathy CK level has come down to 2098 statin was discontinued hepatic enzymes are improving continue to have some muscle pain but lab studies are improving. Objective Data Vital Signs Vital Signs: Vital Signs - 24 hr 09/03/24 12:00 09/03/24 15:04 09/03/24 16:00 Temperature 36.4 C L Pulse Rate 66 65 70 Respiratory Rate 18 Blood Pressure 137/68 Pulse Oximetry 95 Oxygen Delivery 09/03/24 20:00 09/03/24 20:00 09/03/24 20:02 Temperature Pulse Rate 79 Respiratory Rate Blood Pressure Pulse Oximetry 97 Oxygen Delivery Room Air Room Air 09/03/24 22:00 09/04/24 00:00 09/04/24 04:00 Temperature 36.2 C L Pulse Rate 68 78 66 Respiratory Rate 18 Blood Pressure 118/71 Pulse Oximetry 97 Oxygen Delivery 09/04/24 06:00 09/04/24 08:38 Temperature 36.3 C L Pulse Rate 66 88 Respiratory Rate 18 Blood Pressure 122/77 Pulse Oximetry 96 Oxygen Delivery Intake/Output Intake/Output: Intake & Output 09/01/24 09/02/24 09/03/24 09/04/24 23:59 23:59 23:59 23:59 Intake Total 3730 2748.3 2450 1300 Balance 3730 2748.3 2450 1300 Meds/Results Medications: Active Medications Generic Name Dose Route Start Last Admin Trade Name Freq PRN Reason Stop Dose Admin Acetaminophen 650 mg 08/30/24 09:01 08/31/24 15:33 Acetaminophen 325 Mg Tablet PO 650 mg Q6H PRN Administration Mild Pain (1-3) or Fever Hydrocodone Bitart/Acetaminophen 1 tab 08/30/24 00:52 09/04/24 08:39 Hydrocodone/Acetaminophen (*Crx) 7.5-325 Mg Tablet PO 1 tab Q8H PRN Administration pain Albuterol 2.5 mg 08/30/24 00:52 Albuterol Sulfate Neb 2.5 Mg/3 Ml Inh INHALATION Q6HRT PRN Shortness Of Breath Or Wheezing Aspirin 81 mg 08/30/24 09:00 09/04/24 08:39 Aspirin 81 Mg Enteric Tablet PO 81 mg QAM JUDITH Administration Carvedilol 25 mg 09/01/24 09:00 09/04/24 08:38 Carvedilol 25 Mg Tablet PO 25 mg Q12HR JUDITH Administration Cyclobenzaprine HCl 5 mg 08/30/24 00:52 09/03/24 21:02 Cyclobenzaprine Hcl 5 Mg Tablet PO 5 mg TID PRN Administration muscle pain Dextrose 12.5 gm 08/30/24 00:55 Dextrose 50% 25 Gm/50 Ml Syringe IV PUSH PRN PRN Hypoglycemia Protocol Escitalopram Oxalate 10 mg 08/30/24 09:00 09/04/24 08:39 Escitalopram Oxalate 10 Mg Tablet PO 10 mg DAILY JUDITH Administration Famotidine 20 mg 08/30/24 00:52 Famotidine 20 Mg Tablet PO BID PRN acid reflux Fluticasone Propionate 1 spray 08/30/24 00:52 Fluticasone Propionate 0.05% Na Spr 16 Gm Btl (*Bkc) NASAL DAILY PRN allergy symptoms Glucose 15 gm 08/30/24 00:55 Glucose Oral Gel 15 Gm Of Glucse In 37.5 Gm Tube PO PRN PRN Hypoglycemia Protocol Heparin Sodium (Porcine) 5,000 units 08/30/24 14:00 09/04/24 05:02 Heparin Sodium 5,000 Units/Ml Vial SUB-Q 5,000 units Q8HR JUDITH Administration Hydralazine HCl 10 mg 08/31/24 09:30 08/31/24 21:45 Hydralazine Hcl 20 Mg/Ml Vial IV PUSH 10 mg Q4H PRN Administration Blood Pressure - High Hydroxychloroquine Sulfate 200 mg 08/30/24 09:00 09/04/24 08:39 Hydroxychloroquine Sulfate 200 Mg Tablet PO 200 mg Q12HR JUDITH Administration Dextrose 1,000 mls @ 100 mls/hr 08/30/24 00:55 Dextrose 5% 1,000 Ml IVPB PRN PRN Hypoglycemia Protocol Lactated Ringer's 1,000 mls @ 100 mls/hr 08/30/24 10:35 09/04/24 05:02 Lr - Lactated Ringers Iv IV CONT 100 mls/hr .Q10H JUDITH Administration Insulin Aspart 1 - 3 units 08/30/24 21:00 09/03/24 21:01 Insulin Aspart (*Bkc) 100 Units/Ml SUB-Q 1 units HS JUDITH Administration Protocol Insulin Aspart 4 - 8 units 08/30/24 12:00 09/04/24 08:04 Insulin Aspart (*Bkc) 100 Units/Ml SUB-Q Not Given TIDWM [facility] Protocol Insulin Aspart 5 units 09/01/24 12:00 09/04/24 08:24 Insulin Aspart (*Bkc) 100 Units/Ml SUB-Q Not Given TIDWM JUDITH Insulin Glargine 30 units 09/01/24 18:00 09/03/24 17:14 Insulin Glargine (*Bkc) 100 Units/Ml SUB-Q 30 units QPM JUDITH Administration Lisinopril 40 mg 09/01/24 09:00 09/04/24 08:39 Lisinopril 20 Mg Tablet PO 40 mg DAILY JUDITH Administration Loratadine 10 mg 08/30/24 09:00 09/04/24 08:39 Loratadine 10 Mg Tablet PO 10 mg QAM JUDITH Administration Magnesium Oxide 400 mg 08/30/24 21:00 09/03/24 21:03 Magnesium Oxide 400 Mg Tablet PO 400 mg HS JUDITH Administration Oxymetazoline HCl 1 spray 08/30/24 01:03 09/02/24 08:38 Oxymetazoline Hcl 0.05% Jaime 15 Ml Btl (*Bkc) NASAL 1 spray Q8H PRN Administration Congestion Potassium Chloride 40 meq 09/04/24 09:00 09/04/24 08:39 Potassium Chloride 20 Meq Er Tablet PO 40 meq DAILY JUDITH Administration Prednisone 40 mg 08/30/24 08:10 09/04/24 08:39 Prednisone 20 Mg Tablet PO 40 mg DAILY@0800 JUDITH Administration Pregabalin 200 mg 08/30/24 09:00 09/04/24 08:39 Pregabalin (*Crx) 50 Mg Capsule PO 200 mg DAILY JUDITH Administration Fluticasone/Salmeterol 2 puff 08/30/24 08:00 09/04/24 07:11 Fluticasone/Salmeterol 230-21 Mcg Inhaler 1 Puff INHALATION 2 puff Q12HRT JUDITH Administration Trazodone HCl 50 mg 08/30/24 00:52 09/03/24 21:02 Trazodone Hcl 50 Mg Tablet PO 50 mg QHS PRN Administration Insomnia Radiology Results: ITS Impressions Chest X-Ray 08/29/24 16:59 IMPRESSION: No acute cardiopulmonary pathology Miscellaneous CT Procedure 08/29/24 18:35 IMPRESSION: Hepatomegaly. Mild body wall edema. Dermal thickening and subcutaneous inflammatory change/edema over the midline lower anterior abdomen, correlate for clinical findings of cellulitis/panniculitis. No CT evidence of sacral ulcer or sacral osteomyelitis. Thoracic Spine CT 08/29/24 20:06 IMPRESSION: No acute fracture or traumatic malalignment detected in the thoracic spine. Lumbar Spine MRI 08/30/24 16:24 IMPRESSION: 1. Multilevel facet joint disease. 2. No acute osseous abnormality. 3. Nonenhancing lesion. 4. Degenerative disc disease with mild diffuse disc bulge at the level of L5-S1. Thoracic Spine MRI 08/30/24 19:00 IMPRESSION: 1. Minimal thoracic spondylosis with no central canal or neural foraminal stenosis and with normal cord signal with no abnormally enhancing lesions. Cervical Spine MRI 09/03/24 14:10 Impression: Minimal degenerative spondylosis, as above. Labs Labs: Laboratory Results - last 24 hr 09/03/24 09/03/24 09/03/24 11:34 13:39 16:42 WBC RBC Hgb Hct MCV MCH MCHC RDW Plt Count MPV Immature Gran % (Auto) Neut % (Auto) Lymph % (Auto) [place] % (Auto) Eos % (Auto) Baso % (Auto) Lymph # (Auto) [place] # (Auto) Eos # (Auto) Baso # (Auto) Abs Immat Gran (auto) Absolute Neuts (auto) Absolute Nucleated RBC Nucleated RBC % Sodium 138 Potassium 3.7 Chloride 107 Carbon Dioxide 25 Anion Gap 6 BUN 17 Creatinine 0.73 Estim Creat Clear Calc 94 Estimated GFR > 60 Glucose 267 H POC Capillary Glucose 221 H 237 H Calcium 7.7 L Phosphorus 2.7 Magnesium 1.8 Total Bilirubin AST ALT Alkaline Phosphatase Total Creatine Kinase Total Protein Albumin 3.1 L 09/03/24 09/04/24 09/04/24 20:39 05:52 08:00 WBC 10.5 H RBC 3.74 L Hgb 10.4 L Hct 32.9 L MCV 88.0 MCH 27.8 MCHC 31.6 L RDW 14.6 H Plt Count 211 MPV 10.3 Immature Gran % (Auto) 0.9 H Neut % (Auto) 62.8 Lymph % (Auto) 28.5 [place] % (Auto) 7.4 Eos % (Auto) 0.1 Baso % (Auto) 0.3 Lymph # (Auto) 2.99 [place] # (Auto) 0.8 H Eos # (Auto) 0.0 Baso # (Auto) 0.0 Abs Immat Gran (auto) 0.09 H Absolute Neuts (auto) 6.6 Absolute Nucleated RBC 0.020 H Nucleated RBC % 0.2 Sodium 140 Potassium 3.6 Chloride 112 H Carbon Dioxide 22 Anion Gap 6 BUN 19 H Creatinine 0.70 Estim Creat Clear Calc 97 Estimated GFR > 60 Glucose 114 H POC Capillary Glucose 231 H 98 Calcium 8.2 L Phosphorus 3.3 Magnesium 1.7 Total Bilirubin 0.3 AST 75 H ALT 122 H Alkaline Phosphatase 44 Total Creatine Kinase 692 H Total Protein 5.7 L Albumin 3.1 L
[2024-09-04] MEDS: INSULIN ASPART (*BKC) 100 UNITS/ML SUB-Q ×5 (12:05→21:37)
[2024-09-04] MEDS: CYCLOBENZAPRINE HCL 5 MG TABLET PO ×2 (12:09→20:27)
--- NOTE | 2024-09-04 16:59 | P.PNIM_ITS ---
Progress Note: A&P Assessment and Plan (1) Muscle weakness of lower extremity: Code(s): M62.81 - Muscle weakness (generalized) Status: Acute (2) Rhabdomyolysis: Code(s): M62.82 - Rhabdomyolysis Status: Acute (3) GIORGI (acute kidney injury): Code(s): N17.9 - Acute kidney failure, unspecified Status: Acute (4) Abnormal LFTs: Code(s): R79.89 - Other specified abnormal findings of blood chemistry Status: Acute (5) HTN (hypertension): Code(s): I10 - Essential (primary) hypertension Status: Chronic (6) HLD (hyperlipidemia): Code(s): E78.5 - Hyperlipidemia, unspecified Status: Chronic (7) Insulin dependent diabetes mellitus: Status: Chronic Plan 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, patient had been taking the statin once week and last week patient was seen by her drawer in and up the dose to daily, soon after patient developed the myopathy, upon arrival to the hospital patient CK levels were >16,000 today its has trended down to 692, her BUN and Scr were 45/2.88, her AST and ALT were 500 and 223 respectively, patient was initially was admitted into ICU, the statin was stopped, patient is being hydrated, was seen by therapy site coordinator, managed care liaison and neurologist, patient BUN and Scr today are 19/.7 and similarly her liver enzymes have improved to 75/122 , patient was transferred out of ICU and [facility] floor, patient clinical symptoms have improved too, still has some muscular pain, will continue to monitor, will have PT/OT evaluate and patient will benefit going to acute rehab. will monitor. possibly discharge patient tomorrow. Subjective Date/time seen: 09/04/24 16:59 Interval history: Weakness H&P-Narrative: This is a pleasant 54-year-old female with a past medical history lower extremity edema, history of pneumonia, rheumatoid arthritis on hydroxychloroquine, asthma, obesity, iron deficiency anemia, anxiety and depression, GERD, hypertension, hyperlipidemia, insulin-dependent diabetes mellitus. She presents to [facility] ER on 08/29/2024 with the complaint of bilateral upper leg weakness for 4 days. She reports this happened suddenly 1 day after work. She cannot lift her legs at the hips but has good strength at the knees and ankles and feet and as such she cannot lift herself from a laying position, she can also not stand up from bending down. She has to use something to brace and push herself up. She has not had any sensory changes. No changes in bowel or bladder habits. Above the way she has full strength as well. Denies nausea vomiting diarrhea, abdominal pain, fever, change in vision, headache. She has not been ill recently. She reports her thighs are also stiff and very sore and they feel very tight and bulging. Also 4 days ago she developed a sore lower back by the tailbone and has been told there is an ulcer there. No discharge. He is adamant she has not been in mobile for long periods of time in the past 4 days, she is still able to walk and get around with the above-mentioned limitations. In the ER she was persistently hypertensive with systolic blood pressure in the 150s. Otherwise her vitals were within normal limits. WBC 9.7, hemoglobin 12, ESR 20, potassium 5.7, chloride 111, bicarb 17, BUN 45, serum creatinine 2.96. AST 500, ALT 2-3, creatinine kinase 16,000. Urinalysis demonstrating 1+ leukoc yte esterase, no bacteria. Cloudy appearance. Chest x-ray without acute findings. CT abdomen pelvis lumbar without contrast demonstrating a paddle megaly, mild body wall edema, dermal thickening and edema/subcutaneous inflammatory changes over the midline lower anterior abdomen. CT thoracic spine without any acute fracture or malalignment. 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, patient had been taking the statin once week and last week patient was seen by her drawer in and up the dose to daily, soon after patient developed the myopathy, upon arrival to the hospital patient CK levels were >16,000 today its has trended down to 692, her BUN and Scr were 45/2.88, her AST and ALT were 500 and 223 respectively, patient was initially was admitted into ICU, the statin was stopped, patient is being hydrated, was seen by therapy site coordinator, managed care liaison and neurologist, patient BUN and Scr today are 19/.7 and similarly her liver enzymes have improved to 75/122 , patient was transferred out of ICU and [facility] floor, patient clinical symptoms have improved too, still has some muscular pain, will continue to monitor, will have PT/OT evaluate and patient will benefit going to acute rehab. will monitor. possibly discharge patient tomorrow. Review of Systems Review of Systems: All systems reviewed & are unremarkable except as noted in HPI and below Exam Narrative: Morbidly obese Patient is comfortable, NAD HEENT: eyes are clear and none icteric LUNGS:CTA HEART: RR S1S2 ABD: BS+, Soft and nontender Lower extremities: no edema SKIN: nonjaundiced Neuro: grossly intact. Objective Data Vital Signs Vital Signs: Vital Signs - 24 hr 09/03/24 20:00 09/03/24 20:00 09/03/24 20:02 Temperature Pulse Rate 79 Respiratory Rate Blood Pressure Pulse Oximetry 97 Oxygen Delivery Room Air Room Air 09/03/24 22:00 09/04/24 00:00 09/04/24 04:00 Temperature 36.2 C L Pulse Rate 68 78 66 Respiratory Rate 18 Blood Pressure 118/71 Pulse Oximetry 97 Oxygen Delivery 09/04/24 06:00 09/04/24 08:04 09/04/24 08:38 Temperature 36.3 C L Pulse Rate 66 63 88 Respiratory Rate 18 Blood Pressure 122/77 Pulse Oximetry 96 Oxygen Delivery 09/04/24 12:01 09/04/24 14:00 Temperature 36.4 C Pulse Rate 64 68 Respiratory Rate 17 Blood Pressure 124/68 Pulse Oximetry 97 Oxygen Delivery Intake/Output Intake/Output: Intake & Output 09/01/24 09/02/24 09/03/24 09/04/24 23:59 23:59 23:59 23:59 Intake Total 3730 2748.3 2450 2960 Balance 3730 2748.3 2450 2960 Meds/Results Medications: Active Medications Generic Name Dose Route Start Last Admin Trade Name Freq PRN Reason Stop Dose Admin Acetaminophen 650 mg 08/30/24 09:01 08/31/24 15:33 Acetaminophen 325 Mg Tablet PO 650 mg Q6H PRN Administration Mild Pain (1-3) or Fever Hydrocodone Bitart/Acetaminophen 1 tab 08/30/24 00:52 09/04/24 08:39 Hydrocodone/Acetaminophen (*Crx) 7.5-325 Mg Tablet PO 1 tab Q8H PRN Administration pain Albuterol 2.5 mg 08/30/24 00:52 Albuterol Sulfate Neb 2.5 Mg/3 Ml Inh INHALATION Q6HRT PRN Shortness Of Breath Or Wheezing Aspirin 81 mg 08/30/24 09:00 09/04/24 08:39 Aspirin 81 Mg Enteric Tablet PO 81 mg QAM JUDITH Administration Carvedilol 25 mg 09/01/24 09:00 09/04/24 08:38 Carvedilol 25 Mg Tablet PO 25 mg Q12HR JUDITH Administration Cyclobenzaprine HCl 5 mg 08/30/24 00:52 09/04/24 12:09 Cyclobenzaprine Hcl 5 Mg Tablet PO 5 mg TID PRN Administration muscle pain Dextrose 12.5 gm 08/30/24 00:55 Dextrose 50% 25 Gm/50 Ml Syringe IV PUSH PRN PRN Hypoglycemia Protocol Escitalopram Oxalate 10 mg 08/30/24 09:00 09/04/24 08:39 Escitalopram Oxalate 10 Mg Tablet PO 10 mg DAILY JUDITH Administration Famotidine 20 mg 08/30/24 00:52 Famotidine 20 Mg Tablet PO BID PRN acid reflux Fluticasone Propionate 1 spray 08/30/24 00:52 Fluticasone Propionate 0.05% Na Spr 16 Gm Btl (*Bkc) NASAL DAILY PRN allergy symptoms Glucose 15 gm 08/30/24 00:55 Glucose Oral Gel 15 Gm Of Glucse In 37.5 Gm Tube PO PRN PRN Hypoglycemia Protocol Heparin Sodium (Porcine) 5,000 units 08/30/24 14:00 09/04/24 16:03 Heparin Sodium 5,000 Units/Ml Vial SUB-Q 5,000 units Q8HR JUDITH Administration Hydralazine HCl 10 mg 08/31/24 09:30 08/31/24 21:45 Hydralazine Hcl 20 Mg/Ml Vial IV PUSH 10 mg Q4H PRN Administration Blood Pressure - High Hydroxychloroquine Sulfate 200 mg 08/30/24 09:00 09/04/24 08:39 Hydroxychloroquine Sulfate 200 Mg Tablet PO 200 mg Q12HR JUDITH Administration Dextrose 1,000 mls @ 100 mls/hr 08/30/24 00:55 Dextrose 5% 1,000 Ml IVPB PRN PRN Hypoglycemia Protocol Lactated Ringer's 1,000 mls @ 100 mls/hr 08/30/24 10:35 09/04/24 15:59 Lr - Lactated Ringers Iv IV CONT 100 mls/hr .Q10H JUDITH Administration Insulin Aspart 1 - 3 units 08/30/24 21:00 09/03/24 21:01 Insulin Aspart (*Bkc) 100 Units/Ml SUB-Q 1 units HS JUDITH Administration Protocol Insulin Aspart 4 - 8 units 08/30/24 12:00 09/04/24 12:05 Insulin Aspart (*Bkc) 100 Units/Ml SUB-Q 4 units TIDWM JUDITH Administration Protocol Insulin Aspart 5 units 09/01/24 12:00 09/04/24 12:05 Insulin Aspart (*Bkc) 100 Units/Ml SUB-Q 5 units TIDWM JUDITH Administration Insulin Glargine 30 units 09/01/24 18:00 09/03/24 17:14 Insulin Glargine (*Bkc) 100 Units/Ml SUB-Q 30 units QPM JUDITH Administration Lisinopril 40 mg 09/01/24 09:00 09/04/24 08:39 Lisinopril 20 Mg Tablet PO 40 mg DAILY JUDITH Administration Loratadine 10 mg 08/30/24 09:00 09/04/24 08:39 Loratadine 10 Mg Tablet PO 10 mg QAM JUDITH Administration Magnesium Oxide 400 mg 08/30/24 21:00 09/03/24 21:03 Magnesium Oxide 400 Mg Tablet PO 400 mg HS JUDITH Administration Oxymetazoline HCl 1 spray 08/30/24 01:03 09/02/24 08:38 Oxymetazoline Hcl 0.05% Jaime 15 Ml Btl (*Bkc) NASAL 1 spray Q8H PRN Administration Congestion Potassium Chloride 40 meq 09/04/24 09:00 09/04/24 08:39 Potassium Chloride 20 Meq Er Tablet PO 40 meq DAILY JUDITH Administration Prednisone 40 mg 08/30/24 08:10 09/04/24 08:39 Prednisone 20 Mg Tablet PO 40 mg DAILY@0800 JUDITH Administration Pregabalin 200 mg 08/30/24 09:00 09/04/24 08:39 Pregabalin (*Crx) 50 Mg Capsule PO 200 mg DAILY JUDITH Administration Fluticasone/Salmeterol 2 puff 08/30/24 08:00 09/04/24 07:11 Fluticasone/Salmeterol 230-21 Mcg Inhaler 1 Puff INHALATION 2 puff Q12HRT JUDITH Administration Trazodone HCl 50 mg 08/30/24 00:52 09/03/24 21:02 Trazodone Hcl 50 Mg Tablet PO 50 mg QHS PRN Administration Insomnia Radiology Results: ITS Impressions Chest X-Ray 08/29/24 16:59 IMPRESSION: No acute cardiopulmonary pathology Miscellaneous CT Procedure 08/29/24 18:35 IMPRESSION: Hepatomegaly. Mild body wall edema. Dermal thickening and subcutaneous inflammatory change/edema over the midline lower anterior abdomen, correlate for clinical findings of cellulitis/panniculitis. No CT evidence of sacral ulcer or sacral osteomyelitis. Thoracic Spine CT 08/29/24 20:06 IMPRESSION: No acute fracture or traumatic malalignment detected in the thoracic spine. Lumbar Spine MRI 08/30/24 16:24 IMPRESSION: 1. Multilevel facet joint disease. 2. No acute osseous abnormality. 3. Nonenhancing lesion. 4. Degenerative disc disease with mild diffuse disc bulge at the level of L5- S1. Thoracic Spine MRI 08/30/24 19:00 IMPRESSION: 1. Minimal thoracic spondylosis with no central canal or neural foraminal stenosis and with normal cord signal with no abnormally enhancing lesions. Cervical Spine MRI 09/03/24 14:10 Impression: Minimal degenerative spondylosis, as above. Labs Labs: Laboratory Results - last 24 hr 09/03/24 09/04/24 09/04/24 20:39 05:52 08:00 WBC 10.5 H RBC 3.74 L Hgb 10.4 L Hct 32.9 L MCV 88.0 MCH 27.8 MCHC 31.6 L RDW 14.6 H Plt Count 211 MPV 10.3 Immature Gran % (Auto) 0.9 H Neut % (Auto) 62.8 Lymph % (Auto) 28.5 [place] % (Auto) 7.4 Eos % (Auto) 0.1 Baso % (Auto) 0.3 Lymph # (Auto) 2.99 [place] # (Auto) 0.8 H Eos # (Auto) 0.0 Baso # (Auto) 0.0 Abs Immat Gran (auto) 0.09 H Absolute Neuts (auto) 6.6 Absolute Nucleated RBC 0.020 H Nucleated RBC % 0.2 Sodium 140 Potassium 3.6 Chloride 112 H Carbon Dioxide 22 Anion Gap 6 BUN 19 H Creatinine 0.70 Estim Creat Clear Calc 97 Estimated GFR > 60 Glucose 114 H POC Capillary Glucose 231 H 98 Calcium 8.2 L Phosphorus 3.3 Magnesium 1.7 Total Bilirubin 0.3 AST 75 H ALT 122 H Alkaline Phosphatase 44 Total Creatine Kinase 692 H Total Protein 5.7 L Albumin 3.1 L 09/04/24 11:31 WBC RBC Hgb Hct MCV MCH MCHC RDW Plt Count MPV Immature Gran % (Auto) Neut % (Auto) Lymph % (Auto) [place] % (Auto) Eos % (Auto) Baso % (Auto) Lymph # (Auto) [place] # (Auto) Eos # (Auto) Baso # (Auto) Abs Immat Gran (auto) Absolute Neuts (auto) Absolute Nucleated RBC Nucleated RBC % Sodium Potassium Chloride Carbon Dioxide Anion Gap BUN Creatinine Estim Creat Clear Calc Estimated GFR Glucose POC Capillary Glucose 205 H Calcium Phosphorus Magnesium Total Bilirubin AST ALT Alkaline Phosphatase Total Creatine Kinase Total Protein Albumin
[2024-09-04] MEDS: INSULIN GLARGINE (*BKC) 100 UNITS/ML 30 UNITS SUB-Q (17:22)
[2024-09-04] MEDS: MAGNESIUM OXIDE 400 MG TABLET PO (21:37)
[2024-09-05] VITALS: PULSE 58
[2024-09-05 04:00] VITALS: PULSE 57
[2024-09-05] MEDS: LACTATED RINGERS 1,000 ML 100 ML IV CONT (05:11)
[2024-09-05] MEDS: FLUTICASONE/SALMETEROL 230-21 MCG INHALER 1 PUFF 2 PUFF INHALATION (05:12)
[2024-09-05 06:00] VITALS: BP 155/71; PULSE 66; RESP 17; TEMP 36.3; O2SAT 100
[2024-09-05 06:29] LABS: Hematocrit 36.2 % (37.0-47.0); Hemoglobin 10.8 g/dL (12.0-15.0); Mean Corpuscular HGB Conc 29.8 g/dl (32-36); Mean Corpuscular Hemoglobin 28.3 pg (26-34); Mean Corpuscular Volume 95.0 fl (80-100); Platelet Count Result 140 k/mm3 (150-375); Red Blood Count 3.81 M/mm3 (4.2-5.4); White Blood Count 11.0 K/mm3 (4.5-10.0)
[2024-09-05 07:10] LABS: Alanine Aminotransferase 118 U/L (6-35); Albumin Level 3.1 g/dL (3.5-5.1); Alkaline Phosphatase 46 U/L (38-126); Anion Gap 7 mmol/L (4-12); Aspartate Amino Transferase 60 U/L (14-36); Bilirubin,Total 0.4 mg/dL (0.2-1.3); Blood Urea Nitrogen 17 mg/dL (7-17); Calcium 8.2 mg/dL (8.4-10.2); Carbon Dioxide 21 mmol/L (22-30); Chloride 110 mmol/L (98-107); Creatine Kinase 287 U/L (30-135); Estimated CRCL calculation 109 ml/min; Estimated Glomerular Filt Rate > 60; Glucose 99 mg/dL (65-110); Magnesium 1.5 mg/dL (1.6-2.3); Potassium 3.4 mmol/L (3.4-5.0); Sodium 138 mmol/L (137-145); Total Protein 5.7 g/dL (6.3-8.2)
[2024-09-05 08:00] VITALS: PULSE 63
[2024-09-05] MEDS: PREGABALIN (*CRX) 50 MG CAPSULE 200 MG PO (08:34)
[2024-09-05] MEDS: ESCITALOPRAM OXALATE 10 MG TABLET PO (08:34)
[2024-09-05 08:35] VITALS: PULSE 63
[2024-09-05] MEDS: HYDROXYCHLOROQUINE SULFATE 200 MG TABLET PO (08:35)
[2024-09-05] MEDS: ASPIRIN 81 MG ENTERIC TABLET PO (08:35)
[2024-09-05] MEDS: LORATADINE 10 MG TABLET PO (08:35)
[2024-09-05] MEDS: POTASSIUM CHLORIDE 20 MEQ ER TABLET 40 MEQ PO (08:35)
[2024-09-05] MEDS: INSULIN ASPART (*BKC) 100 UNITS/ML SUB-Q ×2 (08:36→12:24)
[2024-09-05] MEDS: POTASSIUM CHLORIDE 20 MEQ PACKET (FOR LIQUID) 40 MEQ PO (09:56)
[2024-09-05] MEDS: MAGNESIUM SULF 2 GM/WATER 50ML 2 GM/50 ML BAG IVPB (09:56)
--- NOTE | 2024-09-05 10:32 | PCNWS ---
Weekly nutritional screen. Patient is tolerating current diabetic diet with adequate intake 100% of meals. Pt has been educated. No weight loss reported. No nutritional recommendations at this time.
--- NOTE | 2024-09-05 11:59 | PM.DS ---
DS: Admitting Diagnosis Discharge Date 09/05/24 Admitting Diagnosis Weakness DS: Discharge Diagnosis Discharge Diagnosis (1) Muscle weakness of lower extremity: Code(s): M62.81 - Muscle weakness (generalized) Status: Acute (2) Rhabdomyolysis: Code(s): M62.82 - Rhabdomyolysis Status: Acute (3) GIORGI (acute kidney injury): Code(s): N17.9 - Acute kidney failure, unspecified Status: Acute (4) Abnormal LFTs: Code(s): R79.89 - Other specified abnormal findings of blood chemistry Status: Acute (5) HTN (hypertension): Code(s): I10 - Essential (primary) hypertension Status: Chronic (6) HLD (hyperlipidemia): Code(s): E78.5 - Hyperlipidemia, unspecified Status: Chronic (7) Insulin dependent diabetes mellitus: Status: Chronic Plan 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, patient had been taking the statin once week and last week patient was seen by her profile shaper operator and up the dose to daily, soon after patient developed the myopathy, upon arrival to the hospital patient CK levels were >16,000 today its has trended down to 692, her BUN and Scr were 45/2.88, her AST and ALT were 500 and 223 respectively, patient was initially was admitted into ICU, the statin was stopped, patient is being hydrated, was seen by civil engineering manager, thermoforming operator and neurologist, patient BUN and Scr today are 19/.7 and similarly her liver enzymes have improved to 75/122 , patient was transferred out of ICU and medsurge floor, patient clinical symptoms have improved too, still has some muscular pain, will continue to monitor, will have PT/OT evaluate and patient will benefit going to acute rehab. will monitor. possibly discharge patient tomorrow. 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, patient had been taking the statin once week and last week patient was seen by her profile shaper operator and up the dose to daily, soon after patient developed the myopathy, upon arrival to the hospital patient CK levels were >16,000 today its has trended down to 692, her BUN and Scr were 45/2.88, her AST and ALT were 500 and 223 respectively, patient was initially was admitted into ICU, the statin was stopped, patient is being hydrated, was seen by civil engineering manager, thermoforming operator and neurologist, patient BUN and Scr today are 19/.7 and similarly her liver enzymes have improved to 75/122 , patient was transferred out of ICU and medsurge floor, patient clinical symptoms have improved too, still has some muscular pain, will continue to monitor, will have PT/OT evaluate and patient will benefit going to acute rehab. will monitor. possibly discharge patient tomorrow. today patient CK levels, her kidney functiona have normalized, and liver enzymes have improved, patient is clinically stable, will discharge today. Time Spent with Patient Time attestation: Total time spent providing and/or coordinating discharge services: Exam Narrative: Morbidly obese Patient is comfortable, NAD HEENT: eyes are clear and none icteric LUNGS:CTA HEART: RR S1S2 ABD: BS+, Soft and nontender Lower extremities: no edema SKIN: nonjaundiced Neuro: grossly intact. DS: Data Data Completed and Pending Labs on day of discharge: Labs from last 24 hours 09/05/24 09/05/24 09/05/24 11:29 07:38 06:15 WBC 11.0 H RBC 3.81 L Hgb 10.8 L Hct 36.2 L MCV 95.0 D MCH 28.3 MCHC 29.8 L RDW 14.7 H Plt Count 140 L MPV 11.0 H Sodium 138 Potassium 3.4 Chloride 110 H Carbon Dioxide 21 L Anion Gap 7 BUN 17 Creatinine 0.61 L Estim Creat Clear Calc 109 Estimated GFR > 60 Glucose 99 POC Capillary Glucose 139 H 92 Calcium 8.2 L Phosphorus 3.6 Magnesium 1.5 L Total Bilirubin 0.4 AST 60 H ALT 118 H Alkaline Phosphatase 46 Total Creatine Kinase 287 H Total Protein 5.7 L Albumin 3.1 L 09/04/24 09/04/24 20:50 16:40 WBC RBC Hgb Hct MCV MCH MCHC RDW Plt Count MPV Sodium Potassium Chloride Carbon Dioxide Anion Gap BUN Creatinine Estim Creat Clear Calc Estimated GFR Glucose POC Capillary Glucose 278 H 298 H Calcium Phosphorus Magnesium Total Bilirubin AST ALT Alkaline Phosphatase Total Creatine Kinase Total Protein Albumin Discharge Plan Discharge Attending physician on discharge: Laureen Jang Consulting providers: Virgie Johnson; Stas Marino; Hadley Das; Smooth Wang; Emilee Gipson; Ramiro Montalvo; Gorge,Rj Lester; Dejuan Bucio; Tim Watters; Timmy Jaffe Discharging Clinician: Geetha Valenzuela Patient Disposition: Home Activity: as tolerated Diet: heart healthy Discharge Instructions: patient to follow up her neurologist in 2 weeks, patient is instructed if she develops any muscular weakness and getting worse to go to nearest ER, patient to follow up with her primary care provider in 2 days to check her kidney function. Patient is instructed if any symptoms worsen to go to nearest ER. Patient Language: Citizen Of [place] Stand Alone Forms: General Discharge Information Follow-up/Referrals: Hadley Das MD [Physician] - Slemp,Crow Tang MD [Primary Care Provider] - Discharge Medications: New carvedilol [Coreg] 25 mg Tablet 25 mg PO Q12HR Qty: 60 0RF prednisone 10 mg tablet 10 mg PO DAILY Qty: 30 0RF Rx Instructions: 4Tx3d, 3Yx3d, 2Tx3d, 1Tx3d Continued trazodone 50 mg tablet 50 mg PO QHS PRN (Reason: Insomnia) albuterol sulfate 2.5 mg /3 mL (0.083 %) solution for nebulization 2.5 mg inhalation Q6H PRN (Reason: Shortness Of Breath Or Wheezing) ergocalciferol (vitamin D2) 1,250 mcg (50,000 unit) capsule 1,250 mcg PO WEEKLY Rx Instructions: Weekly on Mondays fluticasone propion-salmeterol [Advair HFA] 230-21 mcg/actuation HFA aerosol inhaler 2 puff inhalation Q12HRT 30 Days Qty: 60 6RF aspirin 81 mg Capsule 81 mg PO DAILY hydroxychloroquine 200 mg tablet 200 mg PO .q12hr Afrin (oxymetazoline) 1 puff intranasal TID PRN (Reason: Congestion) ibuprofen 800 mg tablet 1,600 mg PO BID PRN (Reason: Headache) cetirizine 10 mg tablet 10 mg PO DAILY famotidine 20 mg tablet 20 mg PO BID PRN (Reason: acid reflux) hydrocodone-acetaminophen 7.5-325 mg tablet 1 tablet PO TID PRN (Reason: pain) ferrous sulfate [FeroSul] 325 mg (65 mg iron) tablet 325 mg PO BID PRN (Reason: menstrual bleeding ) fluticasone propionate 50 mcg/actuation spray,suspension 1 spray INTRANASAL DAILY PRN (Reason: allergy symptoms) metformin 500 mg tablet extended release 24 hr 500 mg PO BID progesterone micronized 100 mg capsule 100 mg PO QPM insulin lispro 100 unit/mL insulin pen 50 unit SUBCUT TIDWM escitalopram oxalate 10 mg tablet 10 mg PO DAILY cyclobenzaprine 5 mg tablet 5 mg PO TID PRN (Reason: muscle pain) pregabalin 200 mg capsule 200 mg PO DAILY Trulicity 3 mg/0.5 mL pen injector 3 mg SUBCUT WEEKLY Rx Instructions: Weekly on Mondays hydrochlorothiazide 25 mg Tablet 25 mg PO QAM Qty: 30 0RF insulin glargine [Lantus Solostar U-100 Insulin] 100 unit/mL (3 mL) insulin pen 24 unit subcut QPM Qty: 15 0RF (DME) blood-glucose meter [OneTouch Verio Flex meter] [facility] Qty: 1 0RF Rx Instructions: May substitute to in-stock meter and/or covered by insurance. Use As Directed (DME) OneTouch Verio test strips Strip Qty: 1 0RF Rx Instructions: May substitute to in-stock and/or covered by insurance strips. Use As Directed (DME) pen needle, diabetic 32 gauge x 1/4 Needle Qty: 1 0RF Rx Instructions: As Directed (DME) pen needle, diabetic 32 gauge x 5/32 Needle Qty: 1 0RF Rx Instructions: As Directed (DME) lancets [OneTouch Delica Plus Lancet] 30 gauge [facility] Qty: 1 0RF Rx Instructions: May substitute to in-stock and/or covered by insurance lancets. Use As Directed (DME) insulin syringe,safety needle 0.5 mL 31 gauge x 5/16 Syringe Qty: 1 0RF Rx Instructions: As Directed (DME) insulin syringe,safety needle 1 mL 32 gauge x 5/16 Syringe Qty: 1 0RF Rx Instructions: As Directed ondansetron 4 mg tablet,disintegrating 4 mg PO Q8H PRN (Reason: nausea and vomiting) Qty: 60 1RF magnesium oxide 400 mg (241.3 mg magnesium) tablet 400 mg PO HS Qty: 60 0RF lisinopril 40 mg tablet 40 mg PO DAILY Held rosuvastatin 40 mg Tablet 40 mg PO DAILY Hold Instructions: until seen by her primary care provider Discontinued carvedilol [Coreg] 12.5 mg Tablet 12.5 mg PO Q12HR Qty: 60 0RF Patient Comments: PATIENT FEELS THIS IS THE MED THAT MADE HER HAVE N/V Other Ambulatory Orders: OT Outpatient Eval and Treat (ONCE) Timeframe: 20240919 Location: Determined by Patient Ordered By: Geetha Valenzuela PT Outpatient Eval and Treat (ONCE) Timeframe: 20240919 Location: Determined by Patient Ordered By: Geetha Valenzuela Date of admission: 08/29/24 20:21 Primary Care Provider: [place],Crow Tang Admitting Provider: Laureen Jang Attending physician on admission: Geetha Valenzuela Condition: Stable
--- NOTE | 2024-09-07 14:42 | PCCDE ---
09/07/24: DM educator abdirizak follow up call completed. Reports home fasting glucose as low as 90 and daytime <200. She states she doing Very good. - To call PCP for follow up appt post hospitalization (DC'd 09/05) - Still has OP DSMT flyer to discuss for referral if decides to move forward.
--- NOTE | 2024-09-08 12:43 | PCCDE ---
Pt called asking about mail order meal plans for DM. - Reviewed plate method and advised re: her portioning of food choices.
== END 2024-09-05 13:05 | disposition home or self-care (01) | DRG 58 ==
LOC: ANHED 19:31 → ANHIMU 21:12 → ANHICU 21:34 → ANH3MEDSUR 09-01 11:05
PROVIDERS: Emergency Medicine; Internal Medicine; Internal Medicine Nephrology; Admitting Provider General Practice; Emergency Provider Emergency Medicine; PCP Family Medicine; Visit Provider Family Medicine
DX: G72.0 Drug-induced myopathy (principal); N17.9 Acute kidney failure, unspecified; E11.9 Type 2 diabetes mellitus without complications; K21.9 Gastro-esophageal reflux disease without esophagitis; I10 Essential (primary) hypertension; E78.5 Hyperlipidemia, unspecified; T46.6X5A Adverse effect of antihyperlipidemic and antiarteriosclerotic drugs, initial encounter; M06.9 Rheumatoid arthritis, unspecified; F41.9 Anxiety disorder, unspecified; F32.A Depression, unspecified; J45.909 Unspecified asthma, uncomplicated; D50.9 Iron deficiency anemia, unspecified; M51.369 Other intervertebral disc degeneration, lumbar region without mention of lumbar back pain or lower extremity pain; E66.01 Morbid (severe) obesity due to excess calories; Z79.51 Long term (current) use of inhaled steroids; Z79.899 Other long term (current) drug therapy; Z87.891 Personal history of nicotine dependence; Z68.41 Body mass index [BMI] 40.0-44.9, adult; Z79.82 Long term (current) use of aspirin; Z79.84 Long term (current) use of oral hypoglycemic drugs; Z79.4 Long term (current) use of insulin; Z79.85 Long-term (current) use of injectable non-insulin antidiabetic drugs
CPT/HCPCS: 36415; 71046; 72128; 72131; 72141; 72157; 72158; 74176; 80048; 80053; 80069; 81001; 82085; 82550; 82948; 83735; 84100; 85025; 85027; 85652; 86038; 86140; 86235; 87086; 87641; 93005; 94640; 96361; 96365; 96375; 97110; 97161; 97165; 97530; 97535; 99285; J0690; A9270; A9577; J0360; J0612; J1644; J1815; J3475; J3480; J7040; J7120; J7512

== ENCOUNTER 2024-09-08 17:16 | Emergency (ER) | payer OTHER, SELFPAY ==
--- OUTSIDE RECORDS SUMMARY | 2024-09-08 17:19 | XMS_ITS | Clinical Summary ---
Author Organization [facility] Address [address] [place] [phone] Care Team Providers Care Multiple Drum Sander Name Role Phone Crow Perry MD Primary Care Provider [phone] Allergies Active Allergy Reactions Criticality Noted Date [...] Encounters Date Type Department Care Team Description 09/08/2024 Telephone [facility] Cardiology [address] [facility] [address] [place] [phone] Debbie Gaitan NP 08/29/2024 12:30 PM CDT Office Visit [facility] Care at [address] [phone] Kimberlee Preciado NP Bilateral leg weakness (Primary Dx); Sacral wound, initial encounter 08/11/2024 1:30 PM CDT Office Visit [facility] Cardiology [facility] [address] [place] [phone] Debbie Gaitan NP Carotid atherosclerosis, left (Primary Dx); Hypotension due to drugs; Sinus tachycardia; Hospital discharge follow-up; Dietary counseling 07/12/2024 12:55 PM CDT Ancillary Procedure [facility] Imaging at [address] [phone] Acute pain of left shoulder 07/12/2024 12:50 PM CDT Ancillary Procedure [facility] Imaging at [address] [phone] Acute pain of left shoulder 07/12/2024 12:15 PM CDT Office Visit [facility] Care at [address] [phone] Peggy Allen PA Acute pain of left shoulder (Primary Dx); Acute pain of right knee; Fall, initial encounter; 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 Orders Only [facility] Cardiology [address] [place] [address] Nica Jaffe NP 06/23/2024 Orders Only [facility] Health Information Management [address] [place] [id number] Scanning, Provider from Last 3 Months Immunizations Immunization Administration [...] on file Legal Sex Female 1:13 AM RES COUNSELOR Gender Identity Not on file Sexual Orientation [...] Panel 01/13/2024 01/12/2023 Influenza Vaccine (#1) 2024 , 10/19/2020, 10/18/2019, Additional history exists DTaP/Tdap/Td Vaccine [...] PM CDT Acute pain of left shoulder SCAN - LABS 06/29/2024 CARDIOLOGY DOCUMENT SCAN Routine 06/27/2024 4:01 PM CDT SCAN - RADIOLOGY/IMAGING 06/23/2024 LIPID PANEL Routine 01/12/2023 7:51 AM RES COUNSELOR from Last 3 Months or Most Recently [...] by Smooth Fernandez M.D. T: Report ID: [id number] Reading Location: [id number] Procedure Note Smooth Fernandez MD - 07/12/2024 [...] by Smooth Fernandez M.D. T: Report ID: [id number] Reading Location: [id number] Peggy RAMON IMG XR PROCEDURES Final Result [...] by Smooth Fernandez M.D. T: Report ID: [id number] Reading Location: [id number] Procedure Note Smooth Fernandez MD - 07/12/2024 [...] by Smooth Fernandez M.D. T: Report ID: [id number] Reading Location: [id number] Peggy RAMON IMG XR PROCEDURES Final Result * SCAN - LABS (06/29/2024) Provider Scanning Final Result * Cardiology Document Scan (06/27/2024 4:01 PM CDT) Anatomical Region Laterality Modality Other us Nica Jaffe NP CV CARDIAC SERVICES PROCEDUR ES Final Result * SCAN - RADIOLOGY/IMAGING (06/23/2024) Anatomical Region Laterality Modality Other Provider Scanning Edited Result - Final * (ABNORMAL) Lipid panel (01/12/2023 7:51 AM RES COUNSELOR) SCRIBED Cholesterol, Total 122 0 - 200 EXTERNAL LAB SCRIBED HDL 41 40 - 100 EXTERNAL LAB SCRIBED LDL 51 0 - 100 EXTERNAL LAB SCRIBED Triglycerides 253(A) 0 - 150 EXTERNAL LAB Blood 01/12/2023 7:51 AM RES COUNSELOR Historical Provider MD LAB BLOOD ORDERABLES Aubree l Result EXTERNAL LAB from Last 3 Months or Most Recently Relevant to Health Maintenance [place] [facility] Care Teams Multiple Drum Sander Relationship Specialty Start Date End Date Crow Perry MD [address] [facility] [address] [place] [address] PCP - General Family Medicine 08/11/24
--- OUTSIDE RECORDS SUMMARY | 2024-09-08 17:20 | XMS_ITS | Encounter Summary ---
Author Organization [facility] Address [address] [place] [address] Care Team Providers Care Black Leather Buffer Name Role Phone Crow Perry MD Primary Care Provider [phone] Encounter Details Date Type Department Care Team (Late st Contact Info) Description 09/08/2024 Telephone [facility] Cardiology [address] [facility] [address] [place] [address] Debbie Gaitan NP [address] [facility] [address] [place] [address] Social History Tobacco Use Types Packs/Day Years Used Date Smoking Tobacco: Former Cigarettes Smokeless Tobacco: Never Alcohol Use Standard Drinks/Week Comments No 0 (1 standard drink = 0.6 oz pur e alcohol) Comments Unknown Sex and Gender Information Value Date Recorded Sex Assigned at Not on file Legal Sex Female 1:13 AM BEEKEEPER Gender Identity Not on file Sexual Orientation Not on file documented as of this encounter Miscellaneous Notes * Telephone Encounter - Jacquie Segura RN - 09/08/2024 1:59 PM CDT Spoke with pt, pt states she was seen in the ED recently and was diagnosed with Rhabdo that they believe is caused from her increased dose of rosuvastatin and would like to discuss other options at her upcoming appt with CT. Pt will stay off of rosuvastatin and will discuss alternatives at upcomingappt. * Telephone Encounter - Tangela Gill - 09/08/2024 12:13 PM CDT Pt states she had an appt with CT on 08/11 and was prescribed Rosuvastatin 40 mg daily. She took it daily as instructed and then ended up at ED with organ failure. States the hospitalist told her they think she went into organ failure from taking Rosuvastatin. Pt was discharged from on 09/05 and was instructed to f/u with CT as soon as possible. Scheduled appt with CT at first available slot on 09/13. Also requesting call back to discuss. Contact: documented in this encounter Plan of Treatment Not on file documented as of this encounter Visit Diagnoses Not on filedocumented in this encounter Care Teams Black Leather Buffer Relationship Specialty Start Date End Date Crow Perry MD [address] [facility] [address] [address] PCP - General Family Medicine 08/11/24 documented as of this encounter
--- OUTSIDE RECORDS SUMMARY | 2024-09-08 17:20 | XMS_ITS | Referral Summary ---
Author Organization [facility] Address [address] [place] [address] Care Team Providers Care Corn Grower Name Role Phone Crow Perry MD Primary Care Provider [phone] Encounters Date Type Department Care Team Description 09/08/2024 Telephone [facility] Medical [facility] Cardiology [address] [place] [address] [address] [place] [phone] Debbie Gaitan NP 08/29/2024 12:30 PM CDT Office Visit [facility] at [address] [phone] Kimberlee Preciado NP Bilateral leg weakness (Primary Dx); Sacral wound, initial encounter 08/11/2024 1:30 PM CDT Office Visit [facility] Cardiology [address] [place] [phone] Debbie Gaitan NP Carotid atherosclerosis, left (Primary Dx); Hypotension due to drugs; Sinus tachycardia; Hospital discharge follow-up; Dietary counseling 07/12/2024 12:55 PM CDT Ancillary Procedure [facility] Imaging at [address] [phone] Acute pain of left shoulder 07/12/2024 12:50 PM CDT Ancillary Procedure [facility] Imaging at [address] [phone] Acute pain of left shoulder 07/12/2024 12:15 PM CDT Office Visit [facility] Care at [address] [phone] Peggy Allen PA Acute pain of left shoulder (Primary Dx); Acute pain of right knee; Fall, initial encounter; 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 Orders Only [facility] Cardiology [address] [place] [address] Nica Jaffe NP 06/23/2024 Orders Only [facility] Health Information Management [address] [place], [place] [id number] Scanning, Provider from Last 3 Months Allergies Active Allergy [...] by mouth 2 (two) times a day 05/15/2 025 Active progesterone (PROMETRIUM) 100 mg capsule Take [...] Take 145 mg by mouth every morning 2024 Discontinued(N o longer taking - Do [...] on file Legal Sex Female 1:13 AM LINING MACHINE TENDER Gender Identity Not on file Sexual Orientation [...] 06/23/2024 LIPID PANEL Routine 01/12/2023 7:51 AM LINING MACHINE TENDER from Last 3 Months or Most Recently [...] by Smooth Fernandez M.D. T: Report ID: [id number] Reading Location: [id number] Procedure Note Smooth Fernandez MD - 07/12/2024 [...] by Smooth Fernandez M.D. T: Report ID: [id number] Reading Location: [place] [address] Peggy RAMON IMG XR PROCEDURES Final Result [...] by Smooth Fernandez M.D. T: Report ID: [id number] Reading Location: [id number] Procedure Note Smooth Fernandez MD - 07/12/2024 [...] by Smooth Fernandez M.D. T: Report ID: [id number] Reading Location: [id number] Peggy RAMON IMG XR PROCEDURES Final Result * SCAN - LABS (06/29/2024) Provider Scanning Final Result * Cardiology Document Scan (06/27/2024 4:01 PM CDT) Anatomical Region Laterality Modality Other Nica Jaffe NP CV CARDIAC SERVICES PROCEDUR ES Final Result * SCAN - RADIOLOGY/IMAGING (06/23/2024) Anatomical Region Laterality Modality Other us Provider Scanning Edited Result - Final * (ABNORMAL) Lipid panel (01/12/2023 7:51 AM LINING MACHINE TENDER) SCRIBED Cholesterol, Total 122 0 - 200 EXTERNAL LAB SCRIBED HDL 41 40 - 100 EXTERNAL LAB SCRIBED LDL 51 0 - 100 EXTERNAL LAB SCRIBED Triglycerides 253(A) 0 - 150 EXTERNAL LAB Blood 01/12/2023 7:51 AM LINING MACHINE TENDER us Historical Provider LAB BLOOD ORDERABLES Aubree fagan Result EXTERNAL LAB from Last 3 Months or Most Recently Relevant to Health Maintenance Insurance CHOICE PRF PPO [facility] Care Teams Corn Grower Relationship Specialty Start Date End Date Crow Perry MD [address] [facility] [facility] [address] [place] [address] PCP - General Family Medicine 08/11/24
--- OUTSIDE RECORDS SUMMARY | 2024-09-08 17:20 | XMS_ITS | Data Portability ---
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 Stop the ibuprofen. Pt is to see an ENT specialist. Not available 06/25/2023 12:54:00 07/07/2024 07/07/2024 Treatment will proceed as below. [email or web address] Not available 07/11/2024 08:14:55 Plan of Treatment Reminders Order Date Submit Date Provider Last Modified By Organization Details Last Modified Time Details Appointments ANY 15 2024 01:30P M Crow Diane MD Not available Not available Not available Lab CMP, serum or plasma 2024 025 JUAN [facility], [address], [place], [address], 2024 08:25:39 magnes ium, serum or plasma 2024 025 JUAN [facility], [address], [place], [address], 2024 08:25:40 HbA1c (hemog lobin A1c), blood 2023 024 JUAN [facility], [address], [place], [address], 08/02/2023 02:22:45 CMP, serum or plasma 2023 024 JUAN [facility], [address], [place], [address], 08/02/2023 02:22:43 TSH, ultra- sensit edouard, serum 2023 024 [email or web address], [address], [place], [address], 09/03/2023 15:48:49 CBC w/ auto diff 2023 024 [facility], [address], [place], [address], 08/02/2023 02:22:44 magnes ium, serum or plasma 2023 024 [facility], [address], [place], [address], 08/02/2023 02:22:43 lipid panel, serum 2023 024 [facility], [address], [place], [address], 08/02/2023 02:22:42 vitami n D, 25-hyd howard, total, serum 2023 024 JUAN [facility], [address], [place], [address], 08/02/2023 02:22:45 hepati tis panel (A+B+C ), acute, serum 2014 015 sarah [facility], [address], [address], [place], [address], 06/29/2023 12:22:15 ferrit in, serum or plasma 2014 015 aausttory [facility], [address], [address], [place], [address], 06/29/2023 12:22:15 iron + total iron-b inding capaci ty (TIBC) , serum 2014 015 aachoco [facility], [address], [address], [place], [address], 06/29/2023 12:22:15 vitami n B12 + folate , serum or blood 2014 015 sarah [facility], [address], [address], [place], [address], 06/29/2023 12:22:15 CMP, serum or plasma 2013 014 sarah [facility], [address], [place], [address], 06/29/2023 12:22:15 microa lbumin /creat inine, mass ratio, urine 2013 014 sarah [facility], [address], [address], [place], [address], 06/29/2023 12:22:15 lipid panel, serum 2013 014 sarah [facility], [address], [place], [address], 06/29/2023 12:22:15 CBC 2013 014 sarah [facility], [address], [address], [place], [address], 06/29/2023 12:22:15 Referral orthop anoop amador n referr al 2024 025 Opal Cramer MD, [address] [facility] , [address], [place], [address], 08/30/2024 17:24:46 Procedures None record ed. Surgeries None record ed. Imaging None record ed. Medication Orders trazod one 50 mg tablet 2024 025 [facility]24264, [address] [place] [address], [id number], 07/07/2024 14:17:45 metfor min ER 500 mg tablet ,exten ded releas e 24 hr 2024 025 [facility] #29480, [address] [place] [address], [id number], 07/07/2024 14:18:13 Lantus Solost ar U-100 Insuli n 100 unit/m L (3 mL) subcut aneous pen 2024 025 [facility] #10551, [address] [place] [address], [id number], 07/07/2024 14:18:41 Trulic ity 3 mg/0.5 mL subcut aneous pen inject or 2024 025 [facility] #92156, [address] [place] [address], [id number], 07/07/2024 14:19:14 nystat in 100,00 0 unit/g bakari topica l cream [address] [facility] #53249, [address] [place] [address], [id number], 07/12/2024 13:37:06 rosuva statin 40 mg tablet 2024 025 [facility] #38689, [address] [place] [address], [id number], 07/07/2024 14:17:06 Bactri m DS 800 mg-160 mg tablet 2024 025 [facility] #69576, [address] [place] [address], [id number], 07/19/2024 05:01:41 carved ilol 12.5 mg tablet 2024 025 [facility] #54894, [address] [place] [address], [id number], 07/07/2024 14:15:36 hydrox ychlor oquine 200 mg tablet 2024 025 [facility] #24327, [address] [place] [address], [id number], 07/07/2024 14:19:30 hydroc odone 7.5 mg-naga tamino phen 325 mg tablet 2024 025 [facility] #80311, [address] [place] [address], [id number], 07/15/2024 15:27:45 cetiri zine 10 mg tablet 2024 025 [facility] #16895, [address] [place] [address], [id number], 07/07/2024 14:16:34 cyanoc obalam in (vit B-12) 1,000 mcg/mL inject ion soluti on 2024 025 [facility] #51830, [address] [place] [address], [id number], 07/07/2024 14:21:01 omepra zole 20 mg capsul efabby yed releas e [email or web address] [facility]53523, [address], [id number], 02/26/2024 17:12:26 escita lopram 10 mg tablet 2023 024 JUAN [facility] #71329, [address], [id number], 06/25/2023 12:48:53 Celebr ex 100 mg capsul e 2023 024 [email or web address] [facility] #80291, [address] [facility] [address] [facility], [place], [place], [id number], 07/17/2023 10:05:12 amoxic illin 500 mg tablet 2014 015 [facility] [address] [place], [address], 06/29/2023 12:22:15 ferrou s sulfat e 325 mg (65 mg iron) tablet 2014 015 [facility] [address] [place], [address], 06/29/2023 12:22:15 cyclob enzapr ine 10 mg tablet [address] [facility] [address] [place], [address], 06/30/2023 07:20:09 clonid ine HCl 0.1 mg tablet 2013 014 [facility] [address] [place], [address], 07/07/2024 12:28:25 amlodi pine 10 mg tablet 2013 014 [facility] [address] [place], [address], 07/07/2024 12:26:17 sertra line 50 mg tablet 2013 014 [email or web address] [facility] [address] [place], [address], 06/30/2023 07:19:42 Patient TargetsNo targets recorded. Patient Instructions Encounter Date Encounter Id Patient Instructions Last Modified By Organization Details Last Modified Time 01/23/2014 [id number] Take meds as prescribed Healthy ADA diet/ exercise f/u with endo nsuthan Not available 01/23/2014 15:02:38 04/24/2014 [id number] Take meds as prescribed Healthy ADA diet/ exercise f/u with endo f/u in 2 month with lab nsuthan Not available 04/24/2014 15:10:19 06/25/2023 [id number] mammogram: about this test [email or web address] Not available 06/25/2023 13:02:18 insomnia: care instructions [email or web address] Not available 06/25/2023 12:55:57 learning about t ype 2 diabetes [email or web address] Not available 06/25/2023 12:37:16 type 2 diabetes: care instructions [email or web address] Not available 06/25/2023 12:37:16 gastroesophageal reflux disease (GERD): care instructions [email or web address] Not available 06/25/2023 12:34:56 controlling your asthma: care instructions [email or web address] Not available 06/25/2023 12:28:19 learning about asthma [email or web address] Not available 06/25/2023 12:28:19 high blood press ure: care instructions [email or web address] Not available 06/25/2023 12:31:27 learning about h igh blood pressure [email or web address] Not available 06/25/2023 12:31:27 Rheumatoid Arthr itis (RA): Care Instructions Not available 06/25/2023 12:43:32 07/07/2024 [id number] heart failure: c are instructions [email or web address] Not available 07/07/2024 13:18:13 learning about h eart failure [email or web address] Not available 07/07/2024 13:18:13 seasonal allergi es: care instructions [email or web address] Not available 07/07/2024 14:16:26 hypokalemia: car e instructions Not available 07/07/2024 13:31:05 Reason for Referral Orthopedic Surgeon Referral for Pain of left shoulder joint Referring Physician: Crow Diane, Family Medicine, Encounter Date: 07/07/2024 Results Created Date Observation Date Name Description Value Unit Range Abnormal Flag Note LastModifiedBy Organization Detail LastModifiedTime 12/25/19 24 12/25/2023 COLOG UARD cologuard result Cancel led - Duplic ate Order not applic able Not Available [facility] (Cologuard Orders Only) [address], [place], [address], 12/25/2023 12:12:03 08/01/19 24 08/03/2023 LIPID PANEL , STAND MARTA cholesterol, total 132 mg/dL <200 normal Not Available [facility] [address] [address] [place], [address], 08/03/2023 03:36:13 08/01/19 24 08/03/2023 LIPID PANEL , STAND MARTA HDL cholesterol 39 mg/dL > or = 50 low Not Available [facility] [address] [address] [place], [address], 08/03/2023 03:36:13 08/01/19 24 08/03/2023 LIPID PANEL , STAND MARTA triglyceride s 212 mg/dL <150 high If a non-f astin g speci men was colle cted, consi maría repea t trigl yceri de testi ng on a fasti ng speci men if clini sreekanth indic ated. Geoffrey copeland et al. J. of Clin. Lipid ol. 2015; 9:129 -169. Not Available [facility] [address] [address] [place], [address], 08/03/2023 03:36:13 08/01/1908/03/2023 LIPID PANEL , STAND MARTA LDL-choleste rol 65 mg/dL _(luan c) normal Refer ence range : <100 Mayelin able range <100 mg/dL for prima ry preve ntion ; <70 mg/dL for patie nts with CHD or diabe tic patie nts with > or = 2 CHD risk facto rs. LDL-C is now calcu lated using the [facility] kins jovi chaves n, which is a valid ated novel vik singh than the Fried audra valdez ion in the estim ation of LDL-C . Enedina alvarado SS et al. IRVING. 2013; 310(1 9): 2061- 2068 (http ://ed ucati on.Qu estDi Azul Systems. com/f aq/FA Q164) Not Available [facility] [address] [address] [place], [address], 08/03/2023 03:36:13 08/01/19 24 08/03/2023 LIPID PANEL , STAND MARTA chol/HDLC ratio 3.4 (calc ) <5.0 normal Not Available [facility] [address] [address] [place], [address], 08/03/2023 03:36:13 08/01/19 24 08/03/2023 LIPID PANEL , STAND MARTA non HDL cholesterol 93 mg/dL _(luna c) <130 normal For patie nts with diabe nathalie plus 1 major ASCVD risk facto r, treat ing to a non-H DL-C goal of <100 mg/dL (LDL- C of <70 mg/dL ) is consi dered a thera peuti c optio n. Not Available [facility] [address] [address] [place], [address], 08/03/2023 03:36:13 08/01/1908/03/2023 MAGNE SIUM magnesium 1.9 mg/dL 1.5-2. 5 normal Not Available [facility] [address] [address] [place], [address], 08/03/2023 03:36:14 08/01/19 24 08/03/2023 COMPR EHENS EDOUARD METAB OLIC PANEL glucose 111 mg/dL 65-99 high Fasti ng refer ence inter juan For someo ne witho ut known diabe nathalie, a gluco se value betwe en 100 and 125 mg/dL is consi stent with predi abete s and shoul d be confi rmed with a follo w-up test. Not Available [address], [address], 08/03/2023 03:36:15 08/01/19 24 08/03/2023 COMPR EHENS EDOUARD METAB OLIC PANEL urea nitrogen (BUN) 19 mg/dL 7-25 normal Not Available [address] [address] [place], [address], 08/03/2023 03:36:15 08/01/19 24 08/03/2023 COMPR EHENS EDOUARD METAB OLIC PANEL creatinine 0.71 mg/dL 0.50-1 .03 normal Not Available [address] [address] [place], [address], 08/03/2023 03:36:15 08/01/19 24 08/03/2023 COMPR EHENS EDOUARD METAB OLIC PANEL eGFR 101 mL/mi n/1.7 3m2 > or = 60 normal Not Available [address], [address], 08/03/2023 03:36:15 08/01/19 24 08/03/2023 COMPR EHENS EDOUARD METAB OLIC PANEL BUN/creatini ne ratio SEE NOTE: (calc ) 6-22 Not Repor yann: BUN and Creat inine are withi n refer ence range . Not Available [address] [address] [place], [address], 08/03/2023 03:36:15 08/01/19 24 08/03/2023 COMPR EHENS EDOUARD METAB OLIC PANEL sodium 144 mmol/ L 135-14 6 normal Not Available [address], [address], 08/03/2023 03:36:15 08/01/19 24 08/03/2023 COMPR EHENS EDOUARD METAB OLIC PANEL potassium 4.0 mmol/ L 3.5-5. 3 normal Not Available [address], [address], 08/03/2023 03:36:15 08/01/19 24 08/03/2023 COMPR EHENS EDOUARD METAB OLIC PANEL chloride 106 mmol/ L 98-110 normal Not Available [address], [address], 08/03/2023 03:36:15 08/01/19 24 08/03/2023 COMPR EHENS EDOUARD METAB OLIC PANEL carbon dioxide 28 mmol/ L 20-32 normal Not Available [address], [address], 08/03/2023 03:36:15 08/01/19 24 08/03/2023 COMPR EHENS EDOUARD METAB OLIC PANEL calcium 9.1 mg/dL 8.6-10 .4 normal Not Available [address], [address], 08/03/2023 03:36:15 08/01/19 24 08/03/2023 COMPR EHENS EDOUARD METAB OLIC PANEL protein, total 6.4 g/dL 6.1-8. 1 normal Not Available [address], [address], 08/03/2023 03:36:15 08/01/19 24 08/03/2023 COMPR EHENS EDOUARD METAB OLIC PANEL albumin 3.9 g/dL 3.6-5. 1 normal Not Available [address], [address], 08/03/2023 03:36:15 08/01/19 24 08/03/2023 COMPR EHENS EDOUARD METAB OLIC PANEL globulin 2.5 g/dL_ (calc ) 1.9-3. 7 normal Not Available [address], [address], 08/03/2023 03:36:15 08/01/19 24 08/03/2023 COMPR EHENS EDOUARD METAB OLIC PANEL albumin/glob ulin ratio 1.6 (calc ) 1.0-2. 5 normal Not Available [address], [address], 08/03/2023 03:36:15 08/01/19 24 08/03/2023 COMPR EHENS EDOUARD METAB OLIC PANEL bilirubin, total 0.2 mg/dL 0.2-1. 2 normal Not Available [address], [address], 08/03/2023 03:36:15 08/01/19 24 08/03/2023 COMPR EHENS EDOUARD METAB OLIC PANEL alkaline phosphatase 69 U/L 37-153 normal Not Available [address], [address], 08/03/2023 03:36:15 08/01/19 24 08/03/2023 COMPR EHENS EDOUARD METAB OLIC PANEL AST 10 U/L 10-35 normal Not Available [address], [address], 08/03/2023 03:36:15 08/01/19 24 08/03/2023 COMPR EHENS EDOUARD METAB OLIC PANEL ALT 9 U/L 6-29 normal Not Available [address], [address], 08/03/2023 03:36:15 08/01/19 24 08/02/2023 CBC (INCL UDES DIFF/ PLT) white blood cell count 8.3 thous and/u L 3.8-10 .8 normal Not Available [address], [address], 08/02/2023 11:08:40 08/01/19 24 08/02/2023 CBC (INCL UDES DIFF/ PLT) red blood cell count 3.97 ismael on/uL 3.80-5 .10 normal Not Available [address], [address], 08/02/2023 11:08:40 08/01/19 24 08/02/2023 CBC (INCL UDES DIFF/ PLT) hemoglobin 11.1 g/dL 11.7-1 5.5 low Not Available [address], [address], 08/02/2023 11:08:40 08/01/19 24 08/02/2023 CBC (INCL UDES DIFF/ PLT) hematocrit 35.2 % 35.0-4 5.0 normal Not Available [address], [address], 08/02/2023 11:08:40 08/01/19 24 08/02/2023 CBC (INCL UDES DIFF/ PLT) MCV 88.7 fL 80.0-1 00.0 normal Not Available [address], [address], 08/02/2023 11:08:40 08/01/19 24 08/02/2023 CBC (INCL UDES DIFF/ PLT) MCH 28.0 pg 27.0-3 3.0 normal Not Available [address], [address], 08/02/2023 11:08:40 08/01/19 24 08/02/2023 CBC (INCL UDES DIFF/ PLT) MCHC 31.5 g/dL 32.0-3 6.0 low Not Available [address], [address], 08/02/2023 11:08:40 08/01/19 24 08/02/2023 CBC (INCL UDES DIFF/ PLT) RDW 13.2 % 11.0-1 5.0 normal Not Available [address], [address], 08/02/2023 11:08:40 08/01/19 24 08/02/2023 CBC (INCL UDES DIFF/ PLT) platelet count 145 thous and/u L 140-40 0 normal Not Available [address], [address], 08/02/2023 11:08:40 08/01/19 24 08/02/2023 CBC (INCL UDES DIFF/ PLT) MPV 10.8 fL 7.5-12 .5 normal Not Available [address], [address], 08/02/2023 11:08:40 08/01/19 24 08/02/2023 CBC (INCL UDES DIFF/ PLT) absolute neutrophils 5403 cells /uL 1500-7 800 normal Not Available [address], [address], 08/02/2023 11:08:40 08/01/19 24 08/02/2023 CBC (INCL UDES DIFF/ PLT) absolute lymphocytes 2158 cells /uL 850-39 00 normal Not Available [address], [address], 08/02/2023 11:08:40 08/01/19 24 08/02/2023 CBC (INCL UDES DIFF/ PLT) absolute monocytes 581 cells /uL 200-95 0 normal Not Available [address], [address], 08/02/2023 11:08:40 08/01/19 24 08/02/2023 CBC (INCL UDES DIFF/ PLT) absolute eosinophils 108 cells /uL 15-500 normal Not Available [address], [address], 08/02/2023 11:08:40 08/01/19 24 08/02/2023 CBC (INCL UDES DIFF/ PLT) absolute basophils 50 cells /uL 0-200 normal Not Available [address], [address], 08/02/2023 11:08:40 08/01/19 24 08/02/2023 CBC (INCL UDES DIFF/ PLT) neutrophils 65.1 % normal Not Available [address], [address], 08/02/2023 11:08:40 08/01/19 24 08/02/2023 CBC (INCL UDES DIFF/ PLT) lymphocytes 26.0 % normal Not Available [address], [address], 08/02/2023 11:08:40 08/01/19 24 08/02/2023 CBC (INCL UDES DIFF/ PLT) monocytes 7.0 % normal Not Available [address], [address], 08/02/2023 11:08:40 08/01/19 24 08/02/2023 CBC (INCL UDES DIFF/ PLT) eosinophils 1.3 % normal Not Available [address], [address], 08/02/2023 11:08:40 08/01/19 24 08/02/2023 CBC (INCL UDES DIFF/ PLT) basophils 0.6 % normal Not Available [address], [address], 08/02/2023 11:08:40 08/01/19 24 08/02/2023 TSH TSH 0.70 mIU/L normal Refer ence Range > or = 20 Years 0.40- 4.50 Pregn jabari Range s First trime ster 0.26- 2.66 Secon d trime ster 0.55- 2.73 Third trime ster 0.43- 2.91 Not Available [address], [address], 08/02/2023 09:02:54 08/01/19 24 08/02/2023 VITAM IN [...] /MS is recom jana d: order code 89667 (saloni ents >2yrs ). See Note 1 Note 1 For addit ional infor jose fleming e refer to http: //[facility] jeb Delgado stDia gnost ics.c om/fa q/FAQ 199 (This link is being provi ded for infor sea rizvi/ jennifer fagan purpo ses only. ) Not Available [facility] [employer] [address] [address] [place], [address], 08/02/2023 09:02:54 08/01/19 24 08/02/2023 HEMOG LOBIN [...] valid ation testi ng condu cted at [facility] , the [facility] orm relat edoaurd to the [employer] t platf orm had [...] is not recom jana d. Not Available [address] [address] [place], [address], 08/02/2023 02:22:45 10/27/19 24 10/28/2023 LIPID PANEL , STAND MARTA cholesterol, total 136 mg/dL <200 normal Not Available [facility] [address] [address] [place], [address], 10/28/2023 12:00:15 10/27/19 24 10/28/2023 LIPID PANEL , STAND MARTA HDL cholesterol 56 mg/dL > or = 50 normal Not Available [facility] [address], [address], 10/28/2023 12:00:15 10/27/19 24 10/28/2023 LIPID PANEL , STAND MARTA triglyceride s 143 mg/dL <150 normal Not Available [facility] [address] [place], [address], 10/28/2023 12:00:15 10/27/19 24 10/28/2023 LIPID PANEL [...] 310(1 9): 2061- 2068 (http ://ed ucati on.Trovali. ActiveSec/f aq/FA Q164) Not Available [facility] [address] [address] [place], [address], 10/28/2023 12:00:15 10/27/19 24 10/28/2023 LIPID PANEL , STAND MARTA chol/HDLC ratio 2.4 (calc ) <5.0 normal Not Available [facility] [address] [address] [place], [address], 10/28/2023 12:00:15 10/27/19 24 10/28/2023 LIPID PANEL , STAND MARTA non HDL cholesterol 80 mg/dL _(luna c) <130 normal For patie nts with diabe nathalie plus 1 major ASCVD risk facto r, treat ing to a non-H DL-C goal of <100 mg/dL (LDL- C of <70 mg/dL ) is darren johnson c optio n. Not Available [facility] [address] [address] [place], [address], 10/28/2023 12:00:15 10/27/19 24 10/28/2023 MAGNE SIUM magnesium 1.3 mg/dL 1.5-2. 5 low Not Available [address], [address], 10/28/2023 12:00:16 10/27/1910/28/2023 COMPR EHENS EDOUARD METAB OLIC PANEL glucose 157 mg/dL 65-99 high Fasti ng refer ence inter juan For someo ne witho ut known diabe nathalie, a gluco se value >125 mg/dL indic ates that they may have diabe nathalie and this shoul d be confi rmed with a follo w-up test. Not Available [address], [address], 10/28/2023 12:00:17 10/27/1910/28/2023 COMPR EHENS EDOUARD METAB OLIC PANEL urea nitrogen (BUN) 17 mg/dL 7-25 normal Not Available [address], [address], 10/28/2023 12:00:17 10/27/19 24 10/28/2023 COMPR EHENS EDOUARD METAB OLIC PANEL creatinine 1.11 mg/dL 0.50-1 .03 high Not Available [address], [address], 10/28/2023 12:00:17 10/27/19 24 10/28/2023 COMPR EHENS EDOUARD METAB OLIC PANEL eGFR 59 mL/mi n/1.7 3m2 > or = 60 low Not Available [address], [address], 10/28/2023 12:00:17 10/27/1910/28/2023 COMPR EHENS EDOUARD METAB OLIC PANEL BUN/creatini ne ratio 15 (calc ) 6-22 normal Not Available [address], [address], 10/28/2023 12:00:17 10/27/19 24 10/28/2023 COMPR EHENS EDOUARD METAB OLIC PANEL sodium 143 mmol/ L 135-14 6 normal Not Available [address], [address], 10/28/2023 12:00:17 10/27/19 24 10/28/2023 COMPR EHENS EDOUARD METAB OLIC PANEL potassium 3.1 mmol/ L 3.5-5. 3 low Not Available [address], [address], 10/28/2023 12:00:17 10/27/19 24 10/28/2023 COMPR EHENS EDOUARD METAB OLIC PANEL chloride 101 mmol/ L 98-110 normal Not Available [address], [address], 10/28/2023 12:00:17 10/27/19 24 10/28/2023 COMPR EHENS EDOUARD METAB OLIC PANEL carbon dioxide 29 mmol/ L 20-32 normal Not Available [address], [address], 10/28/2023 12:00:17 10/27/19 24 10/28/2023 COMPR EHENS EDOUARD METAB OLIC PANEL calcium 9.3 mg/dL 8.6-10 .4 normal Not Available [address], [address], 10/28/2023 12:00:17 10/27/19 24 10/28/2023 COMPR EHENS EDOUARD METAB OLIC PANEL protein, total 6.7 g/dL 6.1-8. 1 normal Not Available [address], [address], 10/28/2023 12:00:17 10/27/19 24 10/28/2023 COMPR EHENS EDOUARD METAB OLIC PANEL albumin 3.9 g/dL 3.6-5. 1 normal Not Available [address], [address], 10/28/2023 12:00:17 10/27/19 24 10/28/2023 COMPR EHENS EDOUARD METAB OLIC PANEL globulin 2.8 g/dL_ (calc ) 1.9-3. 7 normal Not Available [address], [address], 10/28/2023 12:00:17 10/27/19 24 10/28/2023 COMPR EHENS EDOUARD METAB OLIC PANEL albumin/glob ulin ratio 1.4 (calc ) 1.0-2. 5 normal Not Available [address], [address], 10/28/2023 12:00:17 10/27/19 24 10/28/2023 COMPR EHENS EDOUARD METAB OLIC PANEL bilirubin, total 0.3 mg/dL 0.2-1. 2 normal Not Available [address], [address], 10/28/2023 12:00:17 10/27/19 24 10/28/2023 COMPR EHENS EDOUARD METAB OLIC PANEL alkaline phosphatase 72 U/L 37-153 normal Not Available [address], [address], 10/28/2023 12:00:17 10/27/19 24 10/28/2023 COMPR EHENS EDOUARD METAB OLIC PANEL AST 12 U/L 10-35 normal Not Available [address], [address], 10/28/2023 12:00:17 10/27/19 24 10/28/2023 COMPR EHENS EDOUARD METAB OLIC PANEL ALT 10 U/L 6-29 normal Not Available [address], [address], 10/28/2023 12:00:17 10/27/19 24 10/28/2023 CBC (INCL UDES DIFF/ PLT) white blood cell count 6.0 thous and/u L 3.8-10 .8 normal Not Available [address], [address], 10/28/2023 07:02:40 10/27/19 24 10/28/2023 CBC (INCL UDES DIFF/ PLT) red blood cell count 4.10 ismael on/uL 3.80-5 .10 normal Not Available [address], [address], 10/28/2023 07:02:40 10/27/1910/28/2023 CBC (INCL UDES DIFF/ PLT) hemoglobin 11.6 g/dL 11.7-1 5.5 low Not Available [address], [address], 10/28/2023 07:02:40 10/27/19 24 10/28/2023 CBC (INCL UDES DIFF/ PLT) hematocrit 36.0 % 35.0-4 5.0 normal Not Available [address], [address], 10/28/2023 07:02:40 10/27/19 24 10/28/2023 CBC (INCL UDES DIFF/ PLT) MCV 87.8 fL 80.0-1 00.0 normal Not Available [address], [address], 10/28/2023 07:02:40 10/27/19 24 10/28/2023 CBC (INCL UDES DIFF/ PLT) MCH 28.3 pg 27.0-3 3.0 normal Not Available [address], [address], 10/28/2023 07:02:40 10/27/19 24 10/28/2023 CBC (INCL UDES DIFF/ PLT) MCHC 32.2 g/dL 32.0-3 6.0 normal Not Available [address], [address], 10/28/2023 07:02:40 10/27/19 24 10/28/2023 CBC (INCL UDES DIFF/ PLT) RDW 13.8 % 11.0-1 5.0 normal Not Available [address], [address], 10/28/2023 07:02:40 10/27/19 24 10/28/2023 CBC (INCL UDES DIFF/ PLT) platelet count 166 thous and/u L 140-40 0 normal Not Available [address], [address], 10/28/2023 07:02:40 10/27/19 24 10/28/2023 CBC (INCL UDES DIFF/ PLT) MPV 11.7 fL 7.5-12 .5 normal Not Available [address], [address], 10/28/2023 07:02:40 10/27/19 24 10/28/2023 CBC (INCL UDES DIFF/ PLT) absolute neutrophils 3294 cells /uL 1500-7 800 normal Not Available [address], [address], 10/28/2023 07:02:40 10/27/19 24 10/28/2023 CBC (INCL UDES DIFF/ PLT) absolute lymphocytes 2118 cells /uL 850-39 00 normal Not Available [address], [address], 10/28/2023 07:02:40 10/27/19 24 10/28/2023 CBC (INCL UDES DIFF/ PLT) absolute monocytes 468 cells /uL 200-95 0 normal Not Available [address], [address], 10/28/2023 07:02:40 10/27/19 24 10/28/2023 CBC (INCL UDES DIFF/ PLT) absolute eosinophils 78 cells /uL 15-500 normal Not Available [address], [address], 10/28/2023 07:02:40 10/27/19 24 10/28/2023 CBC (INCL UDES DIFF/ PLT) absolute basophils 42 cells /uL 0-200 normal Not Available [facility] [address], [address], 10/28/2023 07:02:40 10/27/19 24 10/28/2023 CBC (INCL UDES DIFF/ PLT) neutrophils 54.9 % normal Not Available [address], [address], 10/28/2023 07:02:40 10/27/19 24 10/28/2023 CBC (INCL UDES DIFF/ PLT) lymphocytes 35.3 % normal Not Available [facility] [address], [address], 10/28/2023 07:02:40 10/27/19 24 10/28/2023 CBC (INCL UDES DIFF/ PLT) monocytes 7.8 % normal Not Available [facility] [address], [address], 10/28/2023 07:02:40 10/27/19 24 10/28/2023 CBC (INCL UDES DIFF/ PLT) eosinophils 1.3 % normal Not Available [facility] [address], [address], 10/28/2023 07:02:40 10/27/19 24 10/28/2023 CBC (INCL UDES DIFF/ PLT) basophils 0.7 % normal Not Available [facility] [address], [address], 10/28/2023 07:02:40 10/27/19 24 10/28/2023 TSH TSH 0.65 mIU/L normal Refer ence Range > or = 20 Years 0.40- 4.50 Pregn jabari Range s First trime ster 0.26- 2.66 Secon d trime ster 0.55- 2.73 Third trime ster 0.43- 2.91 Not Available [facility] [address] [address] [place], [address], 10/28/2023 08:33:35 10/27/19 24 10/28/2023 VITAM IN [...] /MS is recom jana d: order code 09126 (saloni ents >2yrs ). See Note 1 Note 1 For addit ional infor jose fleming refer to http: //ty [email or web address] stDia gnost ics.c om/fa q/FAQ 199 (This link is being provi ded for infor sea rizvi/ jennifer fagan purpo ses only. ) Not Available [facility] [address], [place], [address], 10/28/2023 08:33:36 10/27/19 24 10/28/2023 HEMOG LOBIN [...] This test was perfo rmed on the [facility] gilbert c503 platf orm. Effec tive , a traci rodas in test platf orms from the [facility] tect to the Lissette gilbert c503 may have shift ed HbA1c resul ts sandy red to histo rical resul ts. Based on labor atory valid ation testi ng condu cted at [facility] , the Lissette platf orm relat edouard to the Interactive TKO platf orm had an avera ge incre ase in HbA1c value of < or = 0.3%. This diffe rence is withi n accep yann varia bilit y estab lishe d by the [facility] hemog lobin Stand bony ation Progr am. Note that not all indiv idual s will have had a shift in their resul ts and direc t sandy rison s betwe en histo rical and curre nt resul ts for testi ng condu cted on diffe rent platf orms is not recom jana d. Not Available [facility] [address], [place], [address], 10/28/2023 05:49:48 11/21/19 24 11/22/2023 COMPR EHENS EDOUARD METAB OLIC PANEL glucose 199 mg/dL 65-99 high Fasti ng refer ence inter juan For someo ne witho ut known diabe nathalie, a gluco se value >125 mg/dL indic ates that they may have diabe nathalie and this shoul d be confi rmed with a follo w-up test. Not Available [address], [address], 11/22/2023 06:40:41 11/21/1911/22/2023 COMPR EHENS EDOUARD METAB OLIC PANEL urea nitrogen (BUN) 18 mg/dL 7-25 normal Not Available [address], [address], 11/22/2023 06:40:41 11/21/19 24 11/22/2023 COMPR EHENS EDOUARD METAB OLIC PANEL creatinine 0.88 mg/dL 0.50-1 .03 normal Not Available [address], [address], 11/22/2023 06:40:41 11/21/19 24 11/22/2023 COMPR EHENS EDOUARD METAB OLIC PANEL eGFR 78 mL/mi n/1.7 3m2 > or = 60 normal Not Available [address], [address], 11/22/2023 06:40:41 11/21/1911/22/2023 COMPR EHENS EDOUARD METAB OLIC PANEL BUN/creatini ne ratio SEE NOTE: (calc ) 6-22 Not Repor yann: BUN and Creat inine are withi n refer ence range . Not Available [address], [address], 11/22/2023 06:40:41 11/21/1911/22/2023 COMPR EHENS EDOUARD METAB OLIC PANEL sodium 137 mmol/ L 135-14 6 normal Not Available [address], [address], 11/22/2023 06:40:41 11/21/19 24 11/22/2023 COMPR EHENS EDOUARD METAB OLIC PANEL potassium 4.3 mmol/ L 3.5-5. 3 normal Not Available [address], [address], 11/22/2023 06:40:41 11/21/19 24 11/22/2023 COMPR EHENS EDOUARD METAB OLIC PANEL chloride 105 mmol/ L 98-110 normal Not Available [address], [address], 11/22/2023 06:40:41 11/21/1911/22/2023 COMPR EHENS EDOUARD METAB OLIC PANEL carbon dioxide 27 mmol/ L 20-32 normal Not Available [address], [address], 11/22/2023 06:40:41 11/21/1911/22/2023 COMPR EHENS EDOUARD METAB OLIC PANEL calcium 9.4 mg/dL 8.6-10 .4 normal Not Available [address], [address], 11/22/2023 06:40:41 11/21/1911/22/2023 COMPR EHENS EDOUARD METAB OLIC PANEL protein, total 6.9 g/dL 6.1-8. 1 normal Not Available [address], [address], 11/22/2023 06:40:41 11/21/19 24 11/22/2023 COMPR EHENS EDOUARD METAB OLIC PANEL albumin 4.2 g/dL 3.6-5. 1 normal Not Available [address], [address], 11/22/2023 06:40:41 11/21/1911/22/2023 COMPR EHENS EDOUARD METAB OLIC PANEL globulin 2.7 g/dL_ (calc ) 1.9-3. 7 normal Not Available [address], [address], 11/22/2023 06:40:41 11/21/19 24 11/22/2023 COMPR EHENS EDOUARD METAB OLIC PANEL albumin/glob ulin ratio 1.6 (calc ) 1.0-2. 5 normal Not Available [address], [address], 11/22/2023 06:40:41 11/21/19 24 11/22/2023 COMPR EHENS EDOUARD METAB OLIC PANEL bilirubin, total 0.3 mg/dL 0.2-1. 2 normal Not Available [address], [address], 11/22/2023 06:40:41 11/21/19 24 11/22/2023 COMPR EHENS EDOUARD METAB OLIC PANEL alkaline phosphatase 85 U/L 37-153 normal Not Available [address], [address], 11/22/2023 06:40:41 11/21/19 24 11/22/2023 COMPR EHENS EDOUARD METAB OLIC PANEL AST 22 U/L 10-35 normal Not Available [address], [address], 11/22/2023 06:40:41 11/21/19 24 11/22/2023 COMPR EHENS EDOUARD METAB OLIC PANEL ALT 21 U/L 6-29 normal Not Available [address], [address], 11/22/2023 06:40:41 11/21/19 24 11/22/2023 CBC (INCL UDES DIFF/ PLT) white blood cell count 6.7 thous and/u L 3.8-10 .8 normal Not Available [address], [address], 11/22/2023 11:03:53 11/21/19 24 11/22/2023 CBC (INCL UDES DIFF/ PLT) red blood cell count 4.19 ismael on/uL 3.80-5 .10 normal Not Available [address], [address], 11/22/2023 11:03:53 11/21/19 24 11/22/2023 CBC (INCL UDES DIFF/ PLT) hemoglobin 11.9 g/dL 11.7-1 5.5 normal Not Available [address], [address], 11/22/2023 11:03:53 11/21/1911/22/2023 CBC (INCL UDES DIFF/ PLT) hematocrit 37.3 % 35.0-4 5.0 normal Not Available [facility] [address], [address], 11/22/2023 11:03:53 11/21/1911/22/2023 CBC (INCL UDES DIFF/ PLT) MCV 89.0 fL 80.0-1 00.0 normal Not Available [address], [address], 11/22/2023 11:03:53 11/21/19 24 11/22/2023 CBC (INCL UDES DIFF/ PLT) MCH 28.4 pg 27.0-3 3.0 normal Not Available [address], [address], 11/22/2023 11:03:53 11/21/19 24 11/22/2023 CBC (INCL UDES DIFF/ PLT) MCHC 31.9 g/dL 32.0-3 6.0 low For adult s, a sligh t decre ase in the calcu lated MCHC value (in the range of 30 to 32 g/dL) is most likel y not clini sreekanth signi benson t; felecia er, it shoul d be inter prete d with [facility]i [facility] with other red cell julianne eters and the patie nt's clini luna condi tion. Not Available [facility] [address], [address], 11/22/2023 11:03:53 11/21/19 24 11/22/2023 CBC (INCL UDES DIFF/ PLT) RDW 13.7 % 11.0-1 5.0 normal Not Available [address], [address], 11/22/2023 11:03:53 11/21/19 24 11/22/2023 CBC (INCL UDES DIFF/ PLT) platelet count 194 thous and/u L 140-40 0 normal Not Available [address], [address], 11/22/2023 11:03:53 11/21/1911/22/2023 CBC (INCL UDES DIFF/ PLT) MPV 11.4 fL 7.5-12 .5 normal Not Available [address], [address], 11/22/2023 11:03:53 11/21/1911/22/2023 CBC (INCL UDES DIFF/ PLT) absolute neutrophils 3363 cells /uL 1500-7 800 normal Not Available [address], [address], 11/22/2023 11:03:53 11/21/19 24 11/22/2023 CBC (INCL UDES DIFF/ PLT) absolute lymphocytes 2734 cells /uL 850-39 00 normal Not Available [address], [address], 11/22/2023 11:03:53 11/21/19 24 11/22/2023 CBC (INCL UDES DIFF/ PLT) absolute monocytes 476 cells /uL 200-95 0 normal Not Available [address], [address], 11/22/2023 11:03:53 11/21/19 24 11/22/2023 CBC (INCL UDES DIFF/ PLT) absolute eosinophils 80 cells /uL 15-500 normal Not Available [address], [address], 11/22/2023 11:03:53 11/21/1911/22/2023 CBC (INCL UDES DIFF/ PLT) absolute basophils 47 cells /uL 0-200 normal Not Available [facility] [address], [address], 11/22/2023 11:03:53 11/21/1911/22/2023 CBC (INCL UDES DIFF/ PLT) neutrophils 50.2 % normal Not Available [facility] [address], [address], 11/22/2023 11:03:53 11/21/1911/22/2023 CBC (INCL UDES DIFF/ PLT) lymphocytes 40.8 % normal Not Available [facility] [address], [address], 11/22/2023 11:03:53 11/21/19 24 11/22/2023 CBC (INCL UDES DIFF/ PLT) monocytes 7.1 % normal Not Available [facility] [address], [address], 11/22/2023 11:03:53 11/21/19 24 11/22/2023 CBC (INCL UDES DIFF/ PLT) eosinophils 1.2 % normal Not Available [address], [address], 11/22/2023 11:03:53 11/21/19 24 11/22/2023 CBC (INCL UDES DIFF/ PLT) basophils 0.7 % normal Not Available [address], [address], 11/22/2023 11:03:53 11/21/19 24 11/22/2023 HEMOG LOBIN [...] diabe nathalie for child divya. Not Available [facility] [employer] [address] [address] [place], [address], 11/22/2023 02:10:04 12/19/1912/20/2023 IRON, TOTAL iron, total 47 mcg/d L 45-160 normal Not Available [facility] [address] [address] [place], [address], 12/20/2023 08:43:29 12/19/1912/20/2023 COMPR EHENS EDOUARD METAB OLIC PANEL glucose 147 mg/dL 65-99 high Fasti ng refer ence inter juan For someo ne witho ut known diabe nathalie, a gluco se value >125 mg/dL indic ates that they may have diabe nathalie and this shoul d be confi rmed with a follo w-up test. Not Available [facility] [address] [address] [place], [address], 12/20/2023 08:43:30 12/19/19 24 12/20/2023 COMPR EHENS EDOUARD METAB OLIC PANEL urea nitrogen (BUN) 19 mg/dL 7-25 normal Not Available [facility] [address] [address] [place], [address], 12/20/2023 08:43:30 12/19/19 24 12/20/2023 COMPR EHENS EDOUARD METAB OLIC PANEL creatinine 0.77 mg/dL 0.50-1 .03 normal Not Available [address], [address], 12/20/2023 08:43:30 12/19/19 24 12/20/2023 COMPR EHENS EDOUARD METAB OLIC PANEL eGFR 92 mL/mi n/1.7 3m2 > or = 60 normal Not Available [address], [address], 12/20/2023 08:43:30 12/19/19 24 12/20/2023 COMPR EHENS EDOUARD METAB OLIC PANEL BUN/creatini ne ratio SEE NOTE: (calc ) 6-22 Not Repor yann: BUN and Creat inine are withi n refer ence range . Not Available [address], [address], 12/20/2023 08:43:30 12/19/19 24 12/20/2023 COMPR EHENS EDOUARD METAB OLIC PANEL sodium 141 mmol/ L 135-14 6 normal Not Available [address], [address], 12/20/2023 08:43:30 12/19/19 24 12/20/2023 COMPR EHENS EDOUARD METAB OLIC PANEL potassium 4.4 mmol/ L 3.5-5. 3 normal Not Available [address], [address], 12/20/2023 08:43:30 12/19/19 24 12/20/2023 COMPR EHENS EDOUARD METAB OLIC PANEL chloride 102 mmol/ L 98-110 normal Not Available [address], [address], 12/20/2023 08:43:30 12/19/19 24 12/20/2023 COMPR EHENS EDOUARD METAB OLIC PANEL carbon dioxide 31 mmol/ L 20-32 normal Not Available [address], [address], 12/20/2023 08:43:30 12/19/19 24 12/20/2023 COMPR EHENS EDOUARD METAB OLIC PANEL calcium 9.0 mg/dL 8.6-10 .4 normal Not Available [address], [address], 12/20/2023 08:43:30 12/19/19 24 12/20/2023 COMPR EHENS EDOUARD METAB OLIC PANEL protein, total 6.4 g/dL 6.1-8. 1 normal Not Available [address], [address], 12/20/2023 08:43:30 12/19/19 24 12/20/2023 COMPR EHENS EDOUARD METAB OLIC PANEL albumin 3.7 g/dL 3.6-5. 1 normal Not Available [address], [address], 12/20/2023 08:43:30 12/19/19 24 12/20/2023 COMPR EHENS EDOUARD METAB OLIC PANEL globulin 2.7 g/dL_ (calc ) 1.9-3. 7 normal Not Available [address], [address], 12/20/2023 08:43:30 12/19/19 24 12/20/2023 COMPR EHENS EDOUARD METAB OLIC PANEL albumin/glob ulin ratio 1.4 (calc ) 1.0-2. 5 normal Not Available [address], [address], 12/20/2023 08:43:30 12/19/19 24 12/20/2023 COMPR EHENS EDOUARD METAB OLIC PANEL bilirubin, total 0.4 mg/dL 0.2-1. 2 normal Not Available [address], [address], 12/20/2023 08:43:30 12/19/19 24 12/20/2023 COMPR EHENS EDOUARD METAB OLIC PANEL alkaline phosphatase 78 U/L 37-153 normal Not Available [facility] [employer] [address], [address], 12/20/2023 08:43:30 12/19/19 24 12/20/2023 COMPR EHENS EDOUARD METAB OLIC PANEL AST 15 U/L 10-35 normal Not Available [address], [address], 12/20/2023 08:43:30 12/19/19 24 12/20/2023 COMPR EHENS EDOUARD METAB OLIC PANEL ALT 12 U/L 6-29 normal Not Available [address], [address], 12/20/2023 08:43:30 12/19/19 24 12/20/2023 CBC (INCL UDES DIFF/ PLT) white blood cell count 6.5 thous and/u L 3.8-10 .8 normal Not Available [address], [address], 12/20/2023 08:43:31 12/19/19 24 12/20/2023 CBC (INCL UDES DIFF/ PLT) red blood cell count 4.25 ismael on/uL 3.80-5 .10 normal Not Available [address], [address], 12/20/2023 08:43:31 12/19/19 24 12/20/2023 CBC (INCL UDES DIFF/ PLT) hemoglobin 12.2 g/dL 11.7-1 5.5 normal Not Available [address], [address], 12/20/2023 08:43:31 12/19/19 24 12/20/2023 CBC (INCL UDES DIFF/ PLT) hematocrit 37.4 % 35.0-4 5.0 normal Not Available [address], [address], 12/20/2023 08:43:31 12/19/19 24 12/20/2023 CBC (INCL UDES DIFF/ PLT) MCV 88.0 fL 80.0-1 00.0 normal Not Available [address], [address], 12/20/2023 08:43:31 12/19/19 24 12/20/2023 CBC (INCL UDES DIFF/ PLT) MCH 28.7 pg 27.0-3 3.0 normal Not Available [address], [address], 12/20/2023 08:43:31 12/19/19 24 12/20/2023 CBC (INCL UDES DIFF/ PLT) MCHC 32.6 g/dL 32.0-3 6.0 normal For adult s, a sligh t decre ase in the calcu lated MCHC value (in the range of 30 to 32 g/dL) is most likel y not clini sreekanth knowles t; felecia er, it shoul d be inter prete d with cauti on in [facility] n with other red cell julianne eters and the patie nt's clini luna condi tion. Not Available [address], [address], 12/20/2023 08:43:31 12/19/19 24 12/20/2023 CBC (INCL UDES DIFF/ PLT) RDW 12.7 % 11.0-1 5.0 normal Not Available [address], [address], 12/20/2023 08:43:31 12/19/19 24 12/20/2023 CBC (INCL UDES DIFF/ PLT) platelet count 171 thous and/u L 140-40 0 normal Not Available [facility] [id number], [place], [address], 12/20/2023 08:43:31 12/19/19 24 12/20/2023 CBC (INCL UDES DIFF/ PLT) MPV 11.0 fL 7.5-12 .5 normal Not Available [address], [address], 12/20/2023 08:43:31 12/19/19 24 12/20/2023 CBC (INCL UDES DIFF/ PLT) absolute neutrophils 3471 cells /uL 1500-7 800 normal Not Available [address], [address], 12/20/2023 08:43:31 12/19/19 24 12/20/2023 CBC (INCL UDES DIFF/ PLT) absolute lymphocytes 2275 cells /uL 850-39 00 normal Not Available [address], [address], 12/20/2023 08:43:31 12/19/19 24 12/20/2023 CBC (INCL UDES DIFF/ PLT) absolute monocytes 592 cells /uL 200-95 0 normal Not Available [address], [address], 12/20/2023 08:43:31 12/19/19 24 12/20/2023 CBC (INCL UDES DIFF/ PLT) absolute eosinophils 111 cells /uL 15-500 normal Not Available [address], [address], 12/20/2023 08:43:31 12/19/19 24 12/20/2023 CBC (INCL UDES DIFF/ PLT) absolute basophils 52 cells /uL 0-200 normal Not Available [address], [address], 12/20/2023 08:43:31 12/19/19 24 12/20/2023 CBC (INCL UDES DIFF/ PLT) neutrophils 53.4 % normal Not Available [address], [address], 12/20/2023 08:43:31 12/19/19 24 12/20/2023 CBC (INCL UDES DIFF/ PLT) lymphocytes 35.0 % normal Not Available [address], [address], 12/20/2023 08:43:31 12/19/19 24 12/20/2023 CBC (INCL UDES DIFF/ PLT) monocytes 9.1 % normal Not Available [address], [address], 12/20/2023 08:43:31 12/19/19 24 12/20/2023 CBC (INCL UDES DIFF/ PLT) eosinophils 1.7 % normal Not Available [address], [address], 12/20/2023 08:43:31 12/19/19 24 12/20/2023 CBC (INCL UDES DIFF/ PLT) basophils 0.8 % normal Not Available [address], [address], 12/20/2023 08:43:31 07/08/19 25 2024 COMP. METAB OLIC PANEL (14) glucose 95 mg/dL 70-99 Not Available [facility] ([facility]) [address] [place], [address], 2024 08:25:39 07/08/19 25 2024 COMP. METAB OLIC PANEL (14) BUN 17 mg/dL 6-24 Not Available [facility] ([facility]) [address] [place], [address], 2024 08:25:39 07/08/19 25 2024 COMP. METAB OLIC PANEL (14) creatinine 0.97 mg/dL 0.57-1 .00 Not Available [facility] ([facility]) [address] [facility] [place], [address], 2024 08:25:39 07/08/19 25 2024 COMP. METAB OLIC PANEL (14) eGFR 69 mL/mi n/1.7 3 >59 Not Available [facility] ([facility]) [address] [place], [address], 2024 08:25:39 07/08/19 25 2024 COMP. METAB OLIC PANEL (14) BUN/creatini ne ratio 18 9-23 Not Available [facility] ([facility]) [address] [place], [address], 2024 08:25:39 07/08/19 25 2024 COMP. METAB OLIC PANEL (14) sodium 142 mmol/ L 134-14 4 Not Available [facility] ([facility]) [address] [place], [address], 2024 08:25:39 07/08/19 25 2024 COMP. METAB OLIC PANEL (14) potassium 4.5 mmol/ L 3.5-5. 2 Not Available [facility] ([facility]) [address] [place], [address], 2024 08:25:39 07/08/19 25 2024 COMP. METAB OLIC PANEL (14) chloride 106 mmol/ L 96-106 Not Available [facility] ([facility]) [address] [place], [address], 2024 08:25:39 07/08/19 25 2024 COMP. METAB OLIC PANEL (14) carbon dioxide, total 20 mmol/ L 20-29 Not Available [facility] ([facility]) [address] [place], [address], 2024 08:25:39 07/08/19 25 2024 COMP. METAB OLIC PANEL (14) calcium 9.8 mg/dL 8.7-10 .2 Not Available [facility] ([facility]) [address] [facility], [address], 2024 08:25:39 07/08/19 25 2024 COMP. METAB OLIC PANEL (14) protein, total 6.1 g/dL 6.0-8. 5 Not Available [facility] ([facility]) [address] [facility] [place], [address], 2024 08:25:39 07/08/19 25 2024 COMP. METAB OLIC PANEL (14) albumin 3.9 g/dL 3.8-4. 9 Not Available [facility] ([facility]) [address] [facility] [place], [address], 2024 08:25:39 07/08/19 25 2024 COMP. METAB OLIC PANEL (14) globulin, total 2.2 g/dL 1.5-4. 5 Not Available [facility] ([facility]) [address] [facility], [address], 2024 08:25:39 07/08/19 25 2024 COMP. METAB OLIC PANEL (14) bilirubin, total <0.2 mg/dL 0.0-1. 2 Not Available [facility] ([facility]) [address] [facility] [place], [address], 2024 08:25:39 07/08/19 25 2024 COMP. METAB OLIC PANEL (14) alkaline phosphatase 69 IU/L 44-121 Not Available [facility] ([facility]) [address] [facility], [address], 2024 08:25:39 07/08/19 25 2024 COMP. METAB OLIC PANEL (14) AST (SGOT) 26 IU/L 0-40 Not Available [facility] ([facility]) [address] [place], [address], 2024 08:25:39 07/08/19 25 2024 COMP. METAB OLIC PANEL (14) ALT (SGPT) 26 IU/L 0-32 Not Available [facility] ([facility]) [address] [place], [address], 2024 08:25:39 07/08/19 25 2024 MAGNE SIUM magnesium 1.5 mg/dL 1.6-2. 3 below low normal Not Available [facility] ([facility]) [address] [place], [address], 2024 08:25:40 07/24/19 25 07/24/2024 MAGNE SIUM magnesium 1.5 mg/dL 1.5-2. 5 normal Not Available [employer] [facility] [address] [place], [address], 07/24/2024 06:53:32 07/24/19 25 07/24/2024 COMPR EHENS EDOUARD METAB OLIC PANEL glucose 147 mg/dL 65-99 high Fasti ng refer ence inter juan For someo ne witho ut known diabe nathalie, a gluco se value >125 mg/dL indic ates that they may have diabe nathalie and this shoul d be confi rmed with a follo w-up test. Not Available [facility] [address] [place], [address], 07/24/2024 06:53:33 07/24/19 25 07/24/2024 COMPR EHENS EDOUARD METAB OLIC PANEL urea nitrogen (BUN) 16 mg/dL 7-25 normal Not Available [address], [address], 07/24/2024 06:53:33 07/24/19 25 07/24/2024 COMPR EHENS EDOUARD METAB OLIC PANEL creatinine 0.97 mg/dL 0.50-1 .03 normal Not Available [address], [address], 07/24/2024 06:53:33 07/24/19 25 07/24/2024 COMPR EHENS EDOUARD METAB OLIC PANEL eGFR 69 mL/mi n/1.7 3m2 > or = 60 normal Not Available [address], [address], 07/24/2024 06:53:33 07/24/19 25 07/24/2024 COMPR EHENS EDOUARD METAB OLIC PANEL BUN/creatini ne ratio SEE NOTE: (calc ) 6-22 Not Repor yann: BUN and Creat inine are withi n refer ence range . Not Available [address], [address], 07/24/2024 06:53:33 07/24/19 25 07/24/2024 COMPR EHENS EDOUARD METAB OLIC PANEL sodium 142 mmol/ L 135-14 6 normal Not Available [address], [address], 07/24/2024 06:53:33 07/24/19 25 07/24/2024 COMPR EHENS EDOUARD METAB OLIC PANEL potassium 4.1 mmol/ L 3.5-5. 3 normal Not Available [address], [address], 07/24/2024 06:53:33 07/24/19 25 07/24/2024 COMPR EHENS EDOUARD METAB OLIC PANEL chloride 104 mmol/ L 98-110 normal Not Available [address], [address], 07/24/2024 06:53:33 07/24/19 25 07/24/2024 COMPR EHENS EDOUARD METAB OLIC PANEL carbon dioxide 28 mmol/ L 20-32 normal Not Available [address], [address], 07/24/2024 06:53:33 07/24/19 25 07/24/2024 COMPR EHENS EDOUARD METAB OLIC PANEL calcium 9.3 mg/dL 8.6-10 .4 normal Not Available [address], [address], 07/24/2024 06:53:33 07/24/19 25 07/24/2024 COMPR EHENS EDOUARD METAB OLIC PANEL protein, total 6.2 g/dL 6.1-8. 1 normal Not Available [address], [address], 07/24/2024 06:53:33 07/24/19 25 07/24/2024 COMPR EHENS EDOUARD METAB OLIC PANEL albumin 3.7 g/dL 3.6-5. 1 normal Not Available [address], [address], 07/24/2024 06:53:33 07/24/19 25 07/24/2024 COMPR EHENS EDOUARD METAB OLIC PANEL globulin 2.5 g/dL_ (calc ) 1.9-3. 7 normal Not Available [address], [address], 07/24/2024 06:53:33 07/24/19 25 07/24/2024 COMPR EHENS EDOUARD METAB OLIC PANEL albumin/glob ulin ratio 1.5 (calc ) 1.0-2. 5 normal Not Available [address], [address], 07/24/2024 06:53:33 07/24/19 25 07/24/2024 COMPR EHENS EDOUARD METAB OLIC PANEL bilirubin, total 0.3 mg/dL 0.2-1. 2 normal Not Available [address] [address] [place], [address], 07/24/2024 06:53:33 07/24/19 25 07/24/2024 COMPR EHENS EDOUARD METAB OLIC PANEL alkaline phosphatase 48 U/L 37-153 normal Not Available [address] [address] [place], [address], 07/24/2024 06:53:33 07/24/19 25 07/24/2024 COMPR EHENS EDOUARD METAB OLIC PANEL AST 14 U/L 10-35 normal Not Available [address], [address], 07/24/2024 06:53:33 07/24/19 25 07/24/2024 COMPR EHENS EDOUARD METAB OLIC PANEL ALT 12 U/L 6-29 normal Not Available [address], [address], 07/24/2024 06:53:33 04/29/19 15 04/23/2014 imagi ng/di eulaliaos tic resul t No observ ation record ed. [email or web address] Not Available 2023 12:22:15 05/27/19 25 05/26/2024 XR, knee No observ ation record ed. [address] [address], [place], [address], 05/26/2024 15:15:54 05/27/19 25 05/26/2024 XR, tibia + fibul a, 2 view No observ ation record [address] [address], [place], [address], 05/31/2024 12:53:25 06/14/19 25 06/12/2024 XR, chest , 2 view No observ ation record ed. [address], [address], 06/14/2024 14:59:29 06/22/19 25 06/20/2024 CT, abdom en + pelvi s, w/ contr ast No observ ation record ed. [address], [place], [address], 06/21/2024 13:41:26 06/24/19 25 06/23/2024 XR, chest No observ ation record ed. [address], [place], [address], 06/23/2024 13:48:31 06/28/19 25 06/26/2024 CT, brain , w/o contr ast No observ ation record ed. [address], [place], [address], 06/28/2024 09:49:59 06/28/19 25 06/27/2024 US, duple x, carot id arter y No observ ation record ed. [address], [place], [address], 06/28/2024 10:00:55 06/29/19 25 06/28/2024 MRI, brain + brain stem, w/o contr ast No observ ation record ed. [address], [place], [address], 06/29/2024 11:26:58 08/30/19 25 08/29/2024 XR, chest , 2 view No observ ation record ed. [email or web address] [address], [place], [address], 09/05/2024 08:16:10 08/31/[address], abdom en + pelvi s, w/o contr ast No observ ation record ed. [email or web address] Not Available 2024 08:16:10 08/31/[address], thora cic spine , w/o contr ast No observ ation record ed. [email or web address] Not Available 2024 08:16:10 08/31/19 25 08/30/2024 MRI, lumba r spine , w/wo contr ast No observ ation record ed. [address], [place], [address], 09/08/2024 13:21:41 09/01/19 25 08/30/2024 MRI, thora cic spine , w/wo contr ast No observ ation record ed. [address], [place], [address], 09/08/2024 13:21:53 09/04/19 25 09/02/2024 MRI, cervi luna spine , w/o contr ast No observ ation record ed. [address], [place], [address], 09/08/2024 13:25:00 Result Notes Documentation Provider Name and Address Organization Details Recorded Time Noninvasive Colorectal Cancer Dna + Occult Blood Screening, Ql, Stool : Negative Radha [place], [place] [facility] 02/11/2024 16:33:46 Problems Name Problem SNOMED Code Status Onset Date Resolution Date Notes Provider Name and Address Organization Details Recorded Time Anemia 799046648 Active Zahida [place] [facility] 4 12:22:11 Liver function tests outside reference range 374244628 Active Zahida [place] [facility] 4 12:22:11 Acute sinusitis 51455414 Active Zahida [place] [facility] 4 12:22:11 Essential hypertension 95254926 Active Zahida [place] [facility] 4 12:22:11 Mixed anxiety and depressive disorder 486721316 Active Zahida [place] [facility] 4 12:22:11 Diabetes mellitus 13144708 Active endo-D r.Sand hu Zahida [place] [facility] 4 12:22:11 Chronic back pain 305266431 Active Zahida Daley null, [facility] 4 12:22:11 Rheumatism 110258047 Active 2023 Tri Gonzales RN null, [facility] 4 17:01:20 Rheumatoid arthritis 51352968 Active 2024 Tri Gonzales RN null, [facility] 5 12:36:54 Problem Notes None recorded. Medical Equipment None Reported. Allergies Allergen ID Allergen Name Allergen Category Reaction Reaction Severity Criticality Documentation Date Start Date Code Code System Note Provider Name and Address Organization Details Recorded Time 884003 atenolol medicatio n Not available Not available Not available 06/25/2023 1202 RxNorm PVC's Nina Servin MA null, [facility] 4 11:55:18 270308 Celebrex medicatio n Not available Not available Not available 08/18/2023 00647 7 RxNorm GI upset Tri Gonzales RN null, [facility] 4 10:05:55 6522 atenolol medicatio n irregular heart rate Not available Not available 01/23/2014 1202 RxNorm Zahida Daley null, [facility] 4 12:22:13 Medications Name Sig Start Date [...] completed Not Available Not Available Not Available NeXeption Ultra2 Meter kit use as directed to [...] Pen Needle 32 gauge x 5/32 USE TO INJECT WITH INSULIN DIRECTED 3 [...] BEFORE EACH EPISODE OF INTERCOU RSE DIRECTED 07/07 completed Not Available Not Available Not [...] Not Available Not Available Not Available Acid Bulk Coolers Installer (lansopra zole) 15 mg capsule,d elayed release [...] 5 12 /min 100 % 100 % 06619.1 17144 g 88 /min 35.9 kg/m2 165.1 cm 98.3 [degF] 120/74 mm[Hg] Zahida Daley [facility] 4 12:22:11 Date Recorded Body height Body mass index (BMI) Body weight Respiratory rate Body temperature Oxygen saturation Oxygen saturation in Arterial blood by Pulse oximetry Heart rate Systolic And Diastolic Provider Name and Address Organization Details Last Updated DateTime 4 165.1 cm 37.6 kg/m2 994121. 58 g 16 /min 98.3 [degF] 99 % 99 % 84 /min 115/79 mm[Hg] Nina Servin MA [facility] 4 12:06:27 Date Recorded Body height Oxygen saturation Oxygen saturation in Arterial blood by Pulse oximetry Heart rate Respiratory rate Body temperature Systolic And Diastolic Provider Name and Address Organization Details Last Updated DateTime 5 165.1 cm 97 % 97 % 83 /min 16 /min 97.1 [degF] 121/77 mm[Hg] Radha Robert MA [facility] 5 12:20:43 Date Recorded Respiratory rate Body weight Heart rate Body mass index (BMI) Body height Body temperature Systolic And Diastolic Provider Name and Address Organization Details Last Updated DateTime 4 16 /min 31708.9 49131 g 86 /min 36.4 kg/m2 165.1 cm 98.4 [degF] 124/82 mm[Hg] Zahida Daley [facility] 12:22:11 Social History Question Answer Notes LastModified by Organizat ion Details LastModified Time Tobacco Smoking Status Former Smoker quit in 1999 OCTAVIO Harmon, [facility] 06/25/2023 12:00:23 Do You Have [...] available 06/25/2023 What is your occupation? [employer] Information not available 06/25/2023 What is your exercise level? None Information not available 06/25/2023 Mental Status Question Answer Note LastModified by Organization D etails LastModified Time Do you feel stressed (tense, restless, nervous, or anxious, or unable to sleep at night)? [id number] Information not available 06/25/2023 Family History Relationship [...] Eating Disorder N Anemia Y Heart Attack (DE) N Anxiety Disorder N Diabetes Y Muscle, [...] [place], [place] [facility] 06/25/2023 11:57:02 Influenza, MDCK, quadrivalent, PF 2 completed Nina Servin [place] [facility] 06/25/2023 11:57:02 Influenza, recombinant, quadrivalent, PF 3 completed Nina Servin [place] [facility] 06/25/2023 11:57:02 zoster recombinant 3 completed Nina Servin [place] [facility] 06/25/2023 11:57:02 zoster recombinant 3 completed Nina Servin [place] [facility] 06/25/2023 11:57:02 COVID-19, mRNA, LNP-S, PF, 30 mcg/0.3 mL dose 1 completed Nina Servin [place] [facility] 06/25/2023 11:57:02 COVID-19, mRNA, LNP-S, PF, 30 mcg/0.3 mL dose 1 completed Nina Servin [place] [facility] 06/25/2023 11:57:02 COVID-19, mRNA, LNP-S, PF, 30 mcg/0.3 mL dose, syed-sucrose 2 completed Nina Servin [place] [facility] 06/25/2023 11:57:02 COVID-19, mRNA, LNP-S, bivalent, PF, 50 mcg/0.5 mL or 25mcg/0.25 mL dose 3 completed Nina Servin [place] [facility] 06/25/2023 11:57:02 COVID-19, mRNA, LNP-S, PF, 50 mcg/0.5 mL 3 completed Nina Servin, [place] null, [place] [...] UNSPECIFIED 4 completed Tri Gonzales RN null, [facility] 11/04/2023 12:08:14 influenza, unspecified formulation 4 completed Tri Gonzales RN null, [facility] - [facility]11/04/2023 12:10:02 Past Encounters Encounter ID Performer Location Encounter Start Date Encounter Closed Date Diagnosis/Indication Diagnosis SNOMED-CT Code Diagnosis ICD10 Code Diagnosis Note [id number] MD Arsenio Kamara (Adult Med) [address] [place] [address] 01/23/2014 13:59:59 01/23/2014 15:00:09 Essential hypertension 18365333 continue same Mixed anxi ety and depressive disorder 938102366 Fair control due to noncomplia nt with med Restart Sertraline Diabetes mellitus 38446756 As per endo Will give Lantus and Novolog sample due to financial problem to buy meds Chronic back pain 053338956 [id number] MD Arsenio Kamara (Adult Med) [address] [place] [address] 04/24/2014 13:51:59 04/24/2014 15:34:43 Anemia 824030166 due to heavy bleeding-p t to see [facility] records showed Hb-8.6 check iron panel ok to take Ferrous sulfate daily Liver func tion tests outside reference range 055498980 ALT -53, AST-104--- possibly fatty liver( pt denied alcohol use ) consider us liver in future Acute sinusitis 03849813 [id number] MD Marc Kyle 14 IM 4 [facility] [address] [place] [address] 06/25/2023 11:25:39 06/30/2023 15:15:30 Asthma 239275621 J45.[address] Abdul at [facility] Benign ess ential hypertension 2402151 I10 on amlodipine and clonidine and nadolol Gastroesop hageal reflux disease 511806253 K21.9 Type 2 tg betes mellitus 26903264 E11.9 pt will be followed by Dr. Narvaez on insulin, metformin, and trulicity Rheumatoid arthritis 698 85497 M06.9 on hydroxychl oroquine, ibuprofen, and norco and prednisone prn; pt hopes that norco rx can be assumed here Vitamin D deficiency 347 58275 E55.9 Mixed anxi ety and depressive disorder 774152136 F41.8 Dyslipidemia 288531376 E 78.5 Insomnia 788948972 G47.0 0 Under care of j2ee programmer 634500336 Z76.89 Muscle tension pain 2790 84797 M79.10 on soma Screening for malignant neoplasm of colon 939818963 Z12.11 pt had a recent cologuard done--it was negative Screening mammography 24 947625 Z12.31 UTD [id number] MD Marc Kyle 14 IM [address] [facility] [place] [address] 07/07/2024 12:02:50 07/12/2024 10:17:10 Mycosis 6186609 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 753432465 Z99.89 Congestive heart failure 44461622 I50.9 pt will be seeing a cardiologi st associated with [facility] Pain of le ft shoulder joint 8653700992 0646058 M25.512 Site-speci fic infective disorders of skin 504055345 L08.9 Hypokalemia 88372978 E87 .6 Seasonal allergy 0604473 04 J30.2 Dyslipidemia 357907796 E 78.5 Primary insomnia 6944781 F51.01 Type 2 tg betes mellitus 04857142 E11.9 Z79.4 Rheumatoid arthritis 698 84757 M06.9 Cobalamin deficiency 190 276811 E53.8 Health Concerns Section Related Observation LastModified by Organization Detai ls LastModified Time None Recorded Concern Status LastModified by Organization Details LastModified Time None Recorded Advance Directives Directive N: Payers Insurance Date Sequence Insurance Name Policy Number Policy Lang[place] Covered Member ID Lang[place] Member ID Guarantor Name 07/05/2024 1 [facility] - DOS ON OR AFTER 20 (MEDICAID REPLACEMENT - HMO) Regina Howell [id number] Regina Howell 06/29/2023 SLIDING FEE SCHEDULE - DISCOUNT Regina Howell 07/04/2024 1 [facility] [id number] Regina Hodges [id number] Regina Howell 08/05/2024 1 [facility] - DOS ON OR AFTER 20 (MEDICAID REPLACEMENT - HMO) Regina Hwoell [id number] Regina Lynda 08/05/2024 1 [place] [employer] Regina Howell [id number] Regina Howell Notes Date Note Type Note Provider Name and Address Organization Details Recorded Time 01/23/2014 text/html Hypertension F/UReported by PatientHPIFor associated symptoms, patient reportsno dizziness,no chest pain,no palpitations, andno edema. For lifestyle, patient reportsregular exerciseandlimiting/av oiding salt. For medications, patient reportstaking medications as directedandno side effects from medication.pt missed apt , here after 8 months Diabetes F/UReported by PatientHPIFor context, patient reportsmissing doses of medication (waiting for insurance approval for lantus)but reportsseeing eye doctor regularly,checking feet regularly, andno side effects from medications. For labs, patient reportslast a1c result: 7.5. For associated symptoms, patient reportsno weight gain,no dizziness, andno calluses on feet.pt is seeing richard-, Dorcas Yañez MD Attn: Accounting,[address] [facility], [place], [address], [facility] 01/23/2014 15:02:58 04/24/2014 text/html Sinusitis/Allerg yRepor yann by PatientHPIFor associated symptoms, patient reportssinus pain cheekbut reportsno feverandno sore throat. For location, patient reportsmaxillary. For onset/timing, patient reportsnew onsetandprogressively worse over last 4days. AnemiaReported by PatientHPIFor context, patient reportsprevious hemoglobin: (8.6)(pt has heavy menstrual periods). For associated symptoms, patient reportsshortness of breath,fatigue, andpalpitations. For severity, patient reportsmicrocytic (mcv<80).pt went to ER with palpitation with sob-records showed low Hb -8.6 and elevated LFT. EKG and CXR were normal. pt was given breathing rx with albuterol. Dorcas Yañez MD Attn: Accounting,[address] [facility], [place], [address], [place] [facility] 04/24/2014 15:18:44 06/25/2023 text/html Pt presents in order to become established. Previous PCP has moved out of the area. No acute issues today. Crow Diane MD Attn: Accounting,[address] [facility], [place], [address], [facility] 06/30/2023 07:23:11 07/07/2024 text/html Pt presents after a recent hospitalization at [facility], now with new dx of CHF. She is presently staying with her mother in [place]. She is requesting a decreased in her hydrocodone, now down to 30 pills/month! Crow Diane MD Attn: Accounting, [address] [facility], [place], [address], [facility] 07/11/2024 08:16:03 OBGyn Episode Ob Episode Information Episode Created Date Number of Fetuses Patient Bloodtype Patient rh Status Prepregnancy Weight lbs Domestic Partner Domestic Partner Phone Father Name [employer] Representative Status 06/25/19 24 1 CLOSED Fetus Data First Name Last Name Admitted to NICU Weight (g) Sex Living Outcome Pediatric Complications Fetus ID Race Codes Race Delivery Type [id number] Benji Calculation Initial Benji Date Initial Exam [...] Domestic Partner Domestic Partner Phone Father Name [employer] Representative Status 06/25/19 24 1 CLOSED Fetus Data First Name Last Name Admitted to NICU Weight (g) Sex Living Outcome Pediatric Complications Fetus ID Race Codes Race Delivery Type [id number] Benji Calculation Initial Benji Date Initial Exam [...]
--- OUTSIDE RECORDS SUMMARY | 2024-09-08 17:20 | XMS_ITS | Data Portability ---
Author Organization [place] [facility], Main Office Address [address] [place] [address] Assessment Encounter Date Assessment Date Assessment LastModified by Organization Details LastModified Time 04/24/2023 04/24/2023 I have reconciled the patient's medications post their discharge from inpatient facility. [email or web address] Not available 04/24/2023 08:55:09 Plan of Treatment Reminders Order Date Submit Date Provider Last Modified By Organization Details Last Modified Time Details Appointments None recorded. Lab None recorded. Referral infectious disease specialist referral - Please call patient to schedule an appointment . 2023 024 [email or web address] Jas Lal, [facility] , [address], [place], [address], 4 08:54:11 Procedures None recorded. Surgeries None recorded. Imaging None recorded. Medication Orders valacyclovi r 1 gram tablet 2023 024 [email or web address]19096, [address] [place] [address], [id number], 4 11:38:31 rosuvastati n 40 mg tablet 2023 024 [facility] #63195, [address] [place] [address], [id number], 4 11:38:33 ibuprofen 800 mg tablet 2023 024 [facility] #16364, [address] [place] [address], [id number], 4 11:38:24 trazodone 50 mg tablet 2023 024 [facility] #37168, [address] [facility], [place], [place], [id number], 4 11:38:29 escitalopra m 20 mg tablet 2023 024 [facility] #04674, [address], [place], [place], [id number], 4 11:38:31 furosemide 40 mg tablet 2023 024 [facility] #24704, [address] [place] [address], [id number], 4 11:38:30 Vitamin D2 1,250 mcg (50,000 unit) capsule 2023 024 [facility] #08745, [address] [place] [address], [id number], 4 11:38:23 carisoprodo l 350 mg tablet 2023 024 [facility] #63430, [address] [facility], [place], [place], [id number], 4 11:38:48 Trulicity 3 mg/0.5 mL subcutaneou s pen injector 2023 024 [facility] #85598, [address], [place], [id number], 4 11:38:29 metformin ER 500 mg tablet,exte nded release 24 hr 2023 024 [facility] #95990, [address] [facility], [place], [place], [id number], 4 11:38:32 famotidine 20 mg tablet 2023 024 [facility] #30880, [address], [place], [place], [id number], 4 11:38:22 clonidine HCl 0.1 mg tablet 2023 024 [facility] #08631, [address], [place], [place], [id number], 4 11:38:23 amlodipine 10 mg tablet 2023 024 [facility] #12663, [address], [place], [place], [id number], 4 11:38:20 potassium chloride ER 10 mEq tablet,exte nded release 2023 024 [facility] #06638, [address] [facility], [place], [place], [id number], 4 11:38:49 nadolol 80 mg tablet 2023 024 [facility] #39957, [address] [facility], [place], [place], [id number], 4 11:38:32 fluticasone propionate 50 mcg/actuati on nasal spray,suspe nsion 2023 024 [facility] #83311, [address] [facility], [place], [place], [id number], 4 11:38:21 magnesium oxide 400 mg (241.3 mg magnesium) tablet 2023 024 [facility] #69840, [address], [place], [place], [id number], 4 11:38:22 pregabalin 200 mg capsule 2023 024 [facility] #00612, [address], [place], [place], [id number], 4 11:38:45 hydrocodone 10 mg-acetamin ophen 325 mg tablet 2023 024 [facility] #94739, [address], [place], [place], [id number], 4 11:38:49 prednisone 20 mg tablet 2023 024 [facility] #46174, [address], [place], [place], [id number], 4 11:38:22 sulfamethox azole 800 mg-trimetho prim 160 mg tablet [address] [facility] #16385, [address] [facility], [place], [place], [id number], 4 11:27:10 cephalexin 500 mg capsule [address] [facility] #51101, [address] [place] [address], [id number], 4 11:27:15 sulfamethox azole 800 mg-trimetho prim 160 mg tablet [address] [facility] #65935, [address], [place], [place], [id number], 4 11:27:10 cephalexin 500 mg capsule [address] [facility] #17844, [address] [place] [address], [id number], 4 11:27:15 fluconazole 150 mg tablet 2023 024 [facility] #26091 [address], [place], [place], [id number], 08:39:01 doxycycline hyclate 100 mg capsule 2023 024 [email or web address] #84033, [address], [place], [place], [id number], 17:41:14 Patient TargetsNo targets recorded. Patient Instructions Encounter Date Encounter Id Patient Instructions Last Modified By Organization Details Last Modified Time 04/24/2023 [id number] Thank you for your visit to our [...] at home, please call us to discuss. Not available 04/24/2023 08:55:09 Homebound Status : Required Home Health Services: Durable Medical Equipment needed: Billing Guidelines CPT code 15259- Transitional Care Management services with moderate medical decision complexity (ifqm-xg-jvkn visit within 14 days of discharge). CPT code 24458- Transitional Care Management services with high medical decision complexity (oygb-hv-gjvq visit within 7 days of discharge). [email or web address] Not available 04/24/2023 08:55:09 Reason for Referral Infectious Disease Specialis t Referral for Cellulitis of lower limb Please call patient to schedule an appointment. Referring Physician: Jyoti Hahn, Family Medicine, Encounter Date: 04/30/2023 Results Created Date Observation Date Name Description Value Unit Range Abnormal Flag Note LastModifiedBy Organization Detail LastModifiedTime 04/06/19 24 04/06/2023 XR, chest , 2 view No observ ation record ed. [facility] [address], [place], [address], 04/16/2023 11:48:51 04/06/19 24 04/06/2023 US, doppl er, venou s No observ ation record ed. [address], [place], [address], 04/16/2023 11:55:54 04/06/19 24 04/06/2023 XR, foot No observ ation record ed. [address], [place], [address], 04/16/2023 11:57:17 04/08/19 24 04/08/2023 MRI, lower extre mity, w/ contr ast No observ ation record ed. [address], [place], [address], 06/28/2023 13:14:26 04/10/19 24 04/10/2023 CT, chest , w/ contr ast No observ ation record ed. [address], [place], [address], 04/16/2023 11:53:56 04/12/19 24 04/12/2023 XR, chest , 1 view No observ ation record ed. [address], [place], [address], 04/16/2023 11:49:54 04/14/19 24 04/13/2023 US, echoc ardio gram No observ ation record ed. [address], [place], [address], 04/16/2023 11:56:39 Result Notes None recorded. Problems Name Problem SNOMED Code Status Onset Date Resolution Date Notes Provider Name and Address Organization Details Recorded Time Joselgia 33363268 Active Not Available [facility] 3 00:45:56 Liver function tests outside reference range 648424695 Active Not Available [facility] 3 00:45:56 Asthma 053298323 Active Not Available [facility] 3 00:45:57 Sciatica 91469150 Active Not Available [facility] 3 00:45:57 Fluid level behind tympanic membrane Active Not Available [facility] 3 00:45:57 Dysmenorrh ea 666113071 Active Not Available [facility] 3 00:45:57 Anemia 214991462 Active Not Available [facility] 3 00:45:57 Injury of coccyx 872741040 Active Not Available [facility] 3 00:45:57 Knee pain Active Not Available [facility] 3 00:45:57 Tachycardi a 1194388 Active Not Available [facility] 3 00:45:57 Vitamin D deficiency 35044279 Active Not Available [facility] 3 00:45:58 Sinusitis 60751324 Active Not Available [facility] 3 00:45:58 Menorrhagi a 225031748 Active Not Available [facility] 3 00:45:58 Uncontroll ed type 2 diabetes mellitus 392880112 Active Not Available [facility] 3 00:45:58 Upper respirator y infection 41365586 Active Not Available [facility] 3 00:45:58 Hyperlipid emia 93757364 Active Not Available [facility] 3 00:45:59 Essential hypertensi on 62957411 Active Not Available [facility] 3 00:45:59 Diabetes mellitus 33850422 Active Not Available [facility] 3 00:45:59 Chronic pain 83142619 Active Not Available [facility] 3 00:46:00 Premenstru al tension syndrome 53355033 Active Not Available [facility] 3 00:46:00 Iron deficiency anemia 90329280 Active Not Available [facility] 3 00:46:00 Dyspnea on exertion 60170679 Active 2020 Not Available [facility] 3 00:45:59 Muscle pain 61261115 Active 03/03/ 2021 Not Available [facility] 3 00:45:59 Sleep apnea 94323447 Active 2020 Not Available [facility] 3 00:46:00 Gastroesop hageal reflux disease without esophagiti s 962981581 Active 2020 Not Available [facility] 3 00:45:57 Fatigue 81482232 Active 2020 Not Available [facility] 3 00:46:00 Rheumatoid arthritis 23993620 Active 2020 Not Available [facility] 3 00:45:59 Metatarsal tara 84571321 Active 2020 Not Available [facility] 3 00:45:56 Type 2 diabetes mellitus without complicati on 416847070 Active 2020 Not Available [facility] 3 00:45:57 Well controlled type 2 diabetes mellitus 601262917 Active 2021 Not Available [facility] 3 00:45:58 Deliveries by 930706978 Active 2022 Jyoti Hahn MD [address], [address], [place], [address] , [place] [facility] 3 14:01:21 Gestationa l hypertensi on Active 2022 Jyoti Hahn MD [address], [address], [place], [address] , [place] [facility] 3 14:01:21 Type 2 diabetes mellitus 14952698 Active 2022 Jyoti Hahn MD [address], [address], [place], [address] , [place] [facility] 3 14:01:21 Acute sinusitis 95923389 Active 2022 Jyoti Hahn MD [address], [address], [place], [address] , [place] [facility] 3 17:02:46 Chronic back pain 595701854 Active 2022 JESSICA Garcia [address], [address], [place], [address] , [employer] [facility] 3 18:00:40 Acid reflux 936257307 Active 2022 JESSICA Garcia [address], [address], [place], [address] , [place] [facility] [employer] [facility] 3 10:13:35 Hyperglyce corky due to type 2 diabetes mellitus 6499932240842 09 Active 2022 JESSICA Garcia [address], [address], [place], [address] , [employer] 3 12:09:33 Menopausal symptom 77839329 Active 2022 JESSIAC Garcia [address], [address], [place], [address] , [employer] [facility] 3 12:11:40 Obesity 699430419 Active 2022 JESSICA Garcia [address], [address], [place], [address] , [employer] [facility] 3 12:22:47 Cobalamin deficiency 695387804 Active 2022 JESSICA Garcia [address], [address], [place], [address] , [employer] [facility] 3 10:30:41 Postmenopa usal bleeding 92826866 Active 2022 JESSICA Garcia [address], [address], [place], [address] , [employer] [facility] 3 10:42:36 Chronic hypokalemi a 54956883 Active 2022 JESSICA Garcia [address], [address], [place], [address] , [employer] [facility] 3 13:58:39 Hypokalemi a 39766518 Active 2022 Jyoti Hahn MD [address], [address], [place], [address] , [place] [facility] 3 08:37:56 Pain of ear 589171910 Active 2022 Jyoti Hahn MD [address], [address], [place], [address] , [place] [facility] 3 14:23:43 Chronic obstructiv e pulmonary disease 11196041 Active 2022 JESSICA Garcia [address], [address], [place], [address] , [place] [facility] 3 13:56:38 Herpes labialis 0292633 Active 2022 JESSICA Garcia [address], [address], [place], [address] , [place] [facility] 3 17:23:57 Chronic sinusitis 82554030 Active 2022 JESSICA Garcia [address], [address], [place], [address] , [place] [facility] 3 10:10:11 Edema of lower extremity 293327103 Active 2022 JESSICA Garcia [address], [address], [place], [address] , [place] [facility] 3 10:12:44 Dry eyes 305380485 Active 2022 Jyoti Hahn MD [address], [address], [place], [address] , [place] [facility] 3 09:18:18 Dry eyes 785056117 Active 2022 Jyoti Hahn MD [address], [address], [place], [address] , [place] [facility] 3 09:18:42 Headache 22602998 Active 2022 Jyoti Hahn MD [address], [address], [place], [address] , [place] [facility] 3 10:10:10 Iron deficiency 38820045 Active 2022 Jyoti Hahn MD [address] [address], [place], [address] , [facility] [employer] [facility] [employer] [facility] 3 10:12:16 Pain of multiple joints 36698681 Active 2023 Jyoti Hahn MD [address] [address], [place], [address] , [facility] [employer] [facility] [employer] [facility] 4 12:21:26 Chronic pansinusit is 45461110 Active 2023 Jyoti Hahn MD [address] [address], [place], [address] , [facility] [employer] [facility] [employer] [facility] 4 12:36:59 Magnetic resonance imaging of brain abnormal 399216287 Active 2023 Jyoti Hahn MD [address] [address], [place], [address] , [facility] [employer] [facility] 4 12:42:51 Cellulitis 715916641 Active 2023 Jyoti Hahn MD [address] [address], [place], [address] , [facility] [employer] [facility] 4 09:01:09 Pneumonia 782176728 Active 2023 MD Nixon Powell [address] [address], [place], [address] , [facility] [employer] [facility] [employer] [facility] 4 09:07:49 Cellulitis of lower limb 118206853 Active 2023 MD Nixon [address] [address], [place], [address] , [facility] [employer] [facility] [employer] [facility] 4 17:41:49 Problem Notes None recorded. Procedures Surgical History Date Name Laterality Status Provider Name and Address Organization Details Recorded Time 4 Transitional_Ca re_Management completed Nita Mckinnon LPN MA [employer] [facility] [employer] [facility] 04/24/2023 08:55:09 3 Transitional_Ca re_Management completed Nita Mckinnon LPN [facility] 09/19/2022 08:25:05 1 endometrial ablation completed JESSICA Garcia [address], [place], [address], [employer] 07/17/2022 10:50:11 Imaging Results None recorded. Procedure Notes None recorded. Medical Equipment None Reported. Allergies Allergen ID Allergen Name Allergen Category Reaction Reaction Severity Criticality Documentation Date Start Date Code Code System Note Provider Name and Address Organization Details Recorded Time 398 atenolol medicatio n other severe Not available 04/16/2022 1202 RxNorm twent y years ago Not Available [facility] 3 00:52:08 Medications Name Sig Start [...] Updated DateTime 4 165.1 cm 37.9 kg/m2 351997. 06 g 98.1 [degF] 88 /min 96 % 96 % 148/84 mm[Hg] Nita Mckinnon LPN [facility] 4 08:56:11 Date Recorded Body height Body mass index (BMI) Body weight Body temperature Heart rate Oxygen saturation Oxygen saturation in Arterial blood by Pulse oximetry Systolic And Diastolic Provider Name and Address Organization Details Last Updated DateTime 4 165.1 cm 37.1 kg/m2 613278. 1 g 97.9 [degF] 91 /min 96 % 96 % 148/86 mm[Hg] Dariana Luciano RN [facility] 4 17:15:29 Date Recorded Body height Body mass index (BMI) Body weight Body temperature Heart rate Oxygen saturation Oxygen saturation in Arterial blood by Pulse oximetry Systolic And Diastolic Provider Name and Address Organization Details Last Updated DateTime 4 165.1 cm 36.8 kg/m2 970119. 91 g 97.3 [degF] 92 /min 96 % 96 % 120/76 mm[Hg] Dariana Luciano RN [facility] [employer] [facility] 4 17:18:18 Date Recorded Body height Body mass index (BMI) Body weight Body temperature Heart rate Oxygen saturation Oxygen saturation in Arterial blood by Pulse oximetry Systolic And Diastolic Provider Name and Address Organization Details Last Updated DateTime 4 165.1 cm 36.9 kg/m2 095166. 51 g 98.2 [degF] 87 /min 97 % 97 % 140/80 mm[Hg] Dariana Luciano RN [facility] 11:17:04 Social History Question Answer Notes LastModified by [employer] Details LastModified Time Tobacco Smoking Status Former Smoker quit 2004 Tricia Dick crowley [facility] 03/16/2023 12:13:15 What Is Your Level Of Caffeine Consumption? Moderate [id number] Information not available 04/16/2022 How Much Tobacco Do You Chew? None [id number] Information not available 04/16/2022 In The 14 Days Before Symptom Onset, Have You Had Close Contact With A Laboratory-confir med COVID-19 While That Case Was Ill? No Information not available 03/16/2023 In The 14 Days Before Symptom Onset, Have You Had Close Contact With A Person Who Is Under Investigation For COVID-19 While That Person Was Ill? No [email or web address] Information not available 03/16/2023 What Type Of Diet Are You Following? REGULAR [id number] Information not available 04/16/2022 Are You Following A Low Salt Diet? No [email or web address] Information not available 03/16/2023 What Was The Date Of Your Most Recent Tobacco Screening? 05/23/2020 Information not available 03/16/2023 How Much Tobacco Do You Smoke? 1 PPD [id number] Information not available 04/16/2022 Has Tobacco Cessation Counseling Been Provided? No [email or web address] Information not available 03/16/2023 Do You Have Any Dietary Restrictions? Yes Diabetic [email or web address] Information not available 03/16/2023 Sex: Unknown Functional Status Question Answer Note LastModified by [employer] Details LastModified Time Do you use any illicit or recreational drugs? No [email or web address] Information not available 03/16/2023 Do you or have you ever used any other forms of tobacco or nicotine? No [email or web address] Information not available 03/16/2023 What is your level of alcohol consumption? None [id number] [id number] Information not available 04/16/2022 Do you or have you ever used smokeless tobacco? Never used smokeless tobacco MIGRATION.[id number] 2643 Information not available 04/16/2022 Do you or have you ever used e-cigarettes or vape? Never used electronic cigarettes [email or web address] Information not available 03/16/2023 What is your exercise level? None [id number] 0631 Information not available 04/16/2022 Mental Status None recorded. Family History Relationship Description Onset Age of this Age Resolved Age Notes LastModified by Organization Details LastModified Time Mother Hypertriglyc eridemia [id number] [id number] Not available 04/16/2022 00:42:05 Mother Cardiac pacemaker procedure [id number].207 [id number] Not available 04/16/2022 00:42:05 Mother Atrial fibrillation [id number].853 [id number] Not available 04/16/2022 00:42:05 Brother Hypertriglyc eridemia [id number].695 [id number] Not available 04/16/2022 00:42:05 Medical History Condition [...] (COVID-19) vaccine, UNSPECIFIED 3 completed JAVIER Cheng, [facility] [employer] [facility] 08/06/2022 12:10:22 zoster, unspecified formulation 3 completed Nita Mckinnon LPN null, [employer] [facility] [employer] [facility] 08/06/2022 12:10:46 SARS-COV-2 (COVID-19) vaccine, UNSPECIFIED 2 completed Nita Mckinnon LPN null, [employer] [facility] [employer] [facility] 08/06/2022 14:22:44 zoster recombinant 3 completed JAVIER Cheng, [facility] [employer] [facility] 11/24/2022 16:18:21 influenza, unspecified formulation 3 completed JAVIER Cheng, [facility] [employer] [facility] 11/24/2022 16:18:36 Influenza, split virus, quadrivalent, preservative 1 completed Not Available [facility] 04/16/2022 00:51:57 Influenza, split virus, quadrivalent, preservative 7 completed Not Available [facility] 04/16/2022 00:51:57 Influenza, split virus, quadrivalent, PF 6 completed Not Available [facility] 04/16/2022 00:51:58 SARS-COV-2 (COVID-19) vaccine, UNSPECIFIED 1 completed Not Available [facility] 04/16/2022 00:51:58 COVID-19, mRNA, LNP-S, PF, 100 mcg/0.5mL dose or 50 mcg/0.25mL dose 1 completed Not Available [facility] 04/16/2022 00:51:58 Influenza, split virus, quadrivalent, preservative 0 completed Not Available [facility] 04/16/2022 00:51:58 Tdap 0 completed Not Available [facility] 04/16/2022 00:51:58 Influenza, split virus, trivalent, preservative 5 completed Not Available [facility] 04/16/2022 00:51:59 Past Encounters Encounter ID Performer Location Encounter Start Date Encounter Closed Date Diagnosis/Indication Diagnosis SNOMED-CT Code Diagnosis ICD10 Code Diagnosis Note [id number] JESSICA [facility] Pul[facility] [place] [address] [place] [address] 04/18/2020 00:00:00 04/18/2020 21:13:32 [id number] JESSICA Garcia [facility] Primary Care [address] [place] [address] 04/20/2020 00:00:00 04/20/2020 17:51:54 [id number] Lakshmi Denton MD [employer] [facility] [address] [place] [address] 04/24/2020 00:00:00 04/24/2020 17:32:49 [id number] [facility] Pulmonolo gy [place] [address] [place] [address] 05/23/2020 00:00:00 05/23/2020 19:18:42 [id number] Lakshmi Denton MD [facility] [address] [place] [address] 08/10/2020 00:00:00 08/10/2020 15:16:00 [id number] Jyoti Hahn MD [facility] [place] [address] [place] [address] 10/12/2020 00:00:00 10/12/2020 18:39:46 [id number] Jyoti Hahn MD [facility] [place] [address] [place] [address] 10/25/2020 00:00:00 10/26/2020 16:34:06 [id number] Jyoti Hahn MD [facility] [place] [address] [place] [address] 11/22/2020 00:00:00 11/22/2020 20:22:18 [id number] [facility] [place] [address] [place] [address] 12/13/2020 00:00:00 12/14/2020 10:19:13 [id number] Jyoti Hahn MD [facility] [place] [address] [place] [address] 03/29/2021 00:00:00 03/29/2021 14:04:58 [id number] JESSICA Garcia [facility] [place] [address] [place] [address] 09/04/2021 00:00:00 09/04/2021 10:45:48 [id number] JESSICA Garcia [facility] [place] [address] [place] [address] 10/10/2021 00:00:00 10/10/2021 17:53:04 [id number] Jyoti Hahn MD [facility] [place] [address] [address] [place] [address] 12/11/2021 00:00:00 12/11/2021 17:57:34 [id number] Jyoti Hahn MD [facility] [address] [facility] [address] [place] [address] 03/19/2022 00:00:00 03/19/2022 10:41:24 [id number] JESSICA Garcia [facility] [address] [place] [address] 07/03/2022 11:43:21 07/03/2022 12:27:55 Hyperglycemia due to type 2 diabetes mellitus [id number] 39606 E11.65 Chronic, current status unknown.A1 C 8.3 (10/24/21)In sulin 50 units TID ACMetformi n ER 500mg dailyVicto za 1.8mg daily with mealsEncou raged pt to f/u with endocrinol ogy Menopausal symptom 19780 002 N95.1 Reviewed self-help strategies (dietary changes/ex ercise/acc upuncture/ etc.), herbal and other OTC therapies, hormonal options as well as other medication s used to treat common menopausal symptoms.W ill check hormone panel and plan to discuss treatment options in detail next visit. Rheumatoid arthritis 698 84180 M06.9 Chronic, not well controlled with current [...] dicap placard form completed. Medication monitoring 39 9271528 Z51.81 Chronic/St ableContin ue to use hydrocodon e sparingly as directedPt denies any lending, selling, or borrowing of medication s. Reviewed controlled substance agreement requiremen ts. Refill given.[place] PDMP checked 317/23.Due for UDSRTO 3 months for routine med check and f/u appt. Hyperlipidemia 78741214 E78.5 Vitamin D deficiency 347 95553 E55.9 Obesity 695566172 E66.9 [id number] JESSICA Garcia [facility] [place] [address] [address] [facility] [address] [place] [address] 07/17/2022 09:42:11 07/17/2022 10:39:27 Hyperglycemia due to type 2 diabetes mellitus [id number] 66707 E11.65 Chronic, not well controlled at this time, since pt not improving with Victoza, recommend change to Trulicity instead.A1 C 8.3 (10/24/21); 9.2 (07/03/22)I nsulin 50 units TID ACIncrease to Metformin ER 500mg-2 tabs BIDDiscont inue Victoza 1.8mg daily with meals; change to Trulicity 0.75mg weeklyEnco uraged pt to f/u with endocrinol ogy, has not been seen since 2020. Rheumatoid arthritis 698 10261 M06.9 Chronic, not well controlled with current [...] placard form completed last visit. Menopausal symptom 76910 002 N95.1 Reviewed self-help strategies (dietary changes/ex ercise/acc upuncture/ etc.), herbal and other OTC therapies, hormonal options as well as other medication s used to treat common menopausal symptoms. 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 Reviewed controlled substance agreement requiremen ts. Refill given.[place] checked 05/02/22UDS appropriat e (07/03/22)R TO 3 months for routine med check and f/u appt. Hyperlipidemia 25114240 E78.5 Chronic, stablehdl 39, trigs 328, non-hdl 132 (10/24/21)tr igs 329 (07/03/22)C ontinue Rosuvastat in 40mg twice weeklyNiac in 500mg daily (non-flush ing) Vitamin D deficiency 347 40652 E55.9 Chronic, stableVit D 32.0 (07/03/22)E ncouraged pt continue weekly D2 supplement and try to spend a few minutes outdoors daily (wearing sunscreen) . Tuberculos is screening 719963059 Z11.1 Needs updated TB screen prior to starting leflunomid e or hydroxychl oroquine. Body mass index 30+ - obesity 478456511 Z68.39 ChronicNot improved despite report of dieting/li [...] Try to keep daily calorie count btw 2302-6674 calories. Gave meal planning handout. No improvemen t with Victoza, recommend change to Trulicity. Cobalamin deficiency 190 978135 E53.8 New finding on labsB12 357 (07/03/22)S tart weekly B12 injections x 4 weeks, then go to monthly injections thereafter . Pt indicates she is comfortabl e giving herself the injections at home. Postmenopa usal bleeding 96718887 N95.0 ChronicBle eding likely d/t known fibroidsPt encouraged to work on getting blood sugars under control to qualify for surgery. Pts OB-Plater Helper provider requires pts A1C to be less than 6.0 before pt can be considered for hyst. Patient in formed - test result 853503564 Z71.2 Reviewed lab results with patient. Discussed abnormal levels and treatment recommenda tions as above. [id number] Jyoti Hahn MD [facility] Primary Care [address] [place] [address] 07/21/2022 09:35:40 07/21/2022 10:14:08 Cobalamin deficiency 386894872 E53.8 Tuberculos is screening 114438628 Z11.1 [id number] Jyoti Hahn MD [facility] Primary Care [address] [place] [address] 09/19/2022 08:19:03 09/19/2022 10:34:15 Transition of care 5077637607 105 Z75.8 Hypokalemia 97873905 E87 .6 improved since holding lasixconti nue potassium 10 meq and hold lasixcheck labscall with lab results on need to increase daily potassium and trial lower dose lasix 20 mg 2-3 times per week to find what dosage is effective without electrolyt e disturbanc e [id number] Jyoti Hahn MD [facility] Primary Care [address] [place] [address] 12/16/2022 09:54:06 12/16/2022 13:04:16 Chronic sinusitis 00299076 J32.9 Chronic, recurrentP t declines ENT referral, [...] 20mg daily Edema of l ower extremity 600777090 R60.0 RecurrentD espite correction of potassium levels.Adv ised to elevate lower extremitie s, try not to keep legs dependent. Limit salt, pork, caffeine. Try otc compressio n socks. Work on appropriat e water intake. Take any diuretics as directed. [id number] Jyoti Hahn MD [facility] Primary Care [facility] [address] [facility] [address] [place] [address] 01/06/2023 08:55:57 01/06/2023 09:48:27 Dry eyes 203974911 H04.123 Chronic hypokalemia 1046 9003 E87.6 Cobalamin deficiency 190 497763 E53.8 Vitamin D deficiency 347 98494 E55.9 Hyperlipidemia 59820779 E78.5 Iron defic iency anemia 85213247 D50.9 Well contr olled type 2 diabetes mellitus 892934924 E11.9 [id number] Jyoti Hahn MD [facility] Primary Care [facility] [address] [facility] 140 [place] [address] 01/28/2023 09:53:17 01/28/2023 10:19:45 Headache 21740681 R51.9 R22.0 persistent headaches that are worseninga ssociated with visual disturbanc e and dizziness Iron deficiency 57573435 E61.1 restart pantoprazo letake iron dailyf/u in 6 weeks Acute sinusitis 16044377 J01.90 Acid reflux 016959576 K2 1.9 restart Rheumatoid arthritis 698 66201 M06.9 [id number] Jyoti Hahn MD [facility] Primary Care [facility] [address] [facility] 140 [place] [address] 03/16/2023 12:12:31 03/16/2023 12:50:55 Chronic pansinusitis 23123798 J32.4 ENT referralno yann on MRIdoxycyc line 100 mg po bid x 14 days Rheumatoid arthritis 698 61714 M06.9 needs new referralre fill givenPt understand s this medication has risk for abuse/depe ndence and agrees to take it only as prescribed and to guard from loss/theft [place] prescript[place] monitoring website reviewed Type 2 tg betes mellitus without complication 993139951 E11.9 new referral given, previous endocrinol ogist has left area Asthma 929116099 J45.90 9 new referral given, previous pulmonolog ist has left the area Essential hypertension 87004080 I10 wants cardiology closer to home, new referral given Magnetic r esonance imaging of brain abnormal 410351788 R90.89 reviewed MRI and discussed having excellent control of htn, hyperlipid emia and diabetes for prevention neurology referral given Hypokalemia 78826171 E87 .6 repeat bmp monthly to monitor [id number] Jyoti Hahn MD [facility] Primary Care [address] [place] [address] 04/24/2023 08:32:52 04/24/2023 09:08:12 Transition of care 0898061780 105 Z75.8 Cellulitis 433256518 L03 .90 out of work until releasedel evate as much as possibledo xycycline 100 mg po bid x 14 daysf/u on to reassess Pneumonia 723819322 J18. 9 noted on cta chest on 04/10ha completed augmentinc ough improvedlu ng exam clear [id number] Jyoti Hahn MD [facility] Primary Care [address] [place] [address] 04/30/2023 17:10:43 04/30/2023 17:53:39 Cellulitis of lower limb 425944831 L03.119 out of work until released [id number] Jyoti Hahn MD [facility] Primary Care [address] [place] [address] 05/07/2023 17:11:46 05/07/2023 17:32:00 Cellulitis of lower limb 717454350 L03.119 improving but not yet resolvedou t of work until released [id number] Morgan Oakley MD [facility] [address] 05/25/2023 08:21:56 05/25/2023 09:15:49 Cellulitis of lower limb 019079707 L03.119 Finish out course of antibiotic sReturn if new or worsening symptoms Cellulitis 638666487 L03 .90 [id number] Jyoti Hahn MD [facility] Primary Care [place] [address] [facility] [address] [place] [address] 06/16/2023 11:09:27 06/16/2023 12:57:23 Vitamin D deficiency 36753856 E55.9 Renewal of prescription 719923011 Z76.0 Chronic back pain 041182 002 M54.9 refill given Rheumatoid arthritis 698 27073 M06.9 needs new referralre fill givenPt understand s this medication has risk for abuse/depe ndence and agrees to take it only as prescribed and to guard from loss/theft [place] prescripti on monitoring website reviewed update 06/16/23:wi ll establish with new pcp, refills givenkeeps some prednisone on hand prn Essential hypertension 23843306 I10 stablerefi lls given Gastroesop hageal reflux disease without esophagitis 034455750 K21.9 Type 2 tg betes mellitus without complication 396490582 E11.9 a1c 7.1on trulicity 3 mg sc qweekmetfo rmin ER 500 mg 2 po bid Edema of l ower extremity 364665602 R60.0 stable Hyperlipidemia 48287306 E78.5 stable Hypokalemia 63917114 E87 .6 Chronic sinusitis 104165 00 J32.9 stable, refill given Herpes labialis 4674544 B00.1 keeps refills on hand, no current outbreak Health Concerns Section Related Observation LastModified by Organization Detai ls LastModified Time None Recorded Concern Status LastModified by Organization Details LastModified Time None Recorded Advance Directives Directive None Recorded Payers Insurance Date Sequence Insurance Name Policy Number Policy Langston Covered Member ID Langston Member ID Guarantor Name 07/17/2024 1 [facility] - DOS ON OR AFTER 20 (MEDICAID REPLACEMENT - HMO) Regina Howell [id number] Regina Howell 05/20/2023 2 [place] [employer] Regina Howell [id number] Regina Howell Notes Date Note Type Note Provider Name and Address Organization Details Recorded Time 04/24/2023 text/html was inpatient 8 days, now out of hospital for 8 days, finished her abx 2 days after release. Redness in right lower leg is somewhat improved but not resolved. +pain and swelling. No fever. Jyoti Hahn MD [address], [place], [address], [email or web address] 05/13/2023 07:44:34 04/30/2023 text/html was inpatient 8 [...] Hahn MD [address], [place], [address], [email or web address] 05/17/2023 08:30:53 05/07/2023 text/html was inpatient 8 [...] Hahn MD [address], [place], [address], [employer] 05/17/2023 10:02:23 05/25/2023 text/html She was admitted to the hospital on 04/06/23 for cellulitis to the RLE and was admitted for 9 days. She is currently on augmentin 875-125, finished today. She still has redness noted to her right bello, but its is much improved per patient. She has no other concerns today. JESSICA Pizano [address], [place], [address], [facility] [employer] [facility] 05/25/2023 08:44:59 06/16/2023 text/html was inpatient 8 [...] some refills and referrals. Jyoti Hahn MD [address] [place] [address], [place], [address], [facility] [employer] [facility] 06/24/2023 13:20:48 OBGyn Episode No OBEpisode recorded.
--- OUTSIDE RECORDS SUMMARY | 2024-09-08 17:20 | XMS_ITS | Encounter Summary ---
Author Organization [facility] Healthcare Address [address] [place] [address] Care Team Providers Care Head Operator Sulfide Name Role Phone Carlos Wallace NP Primary Care Provider [phone] Crow Perry MD Primary Care Provider [phone] Encounter Details Date Type Department Care Team (Late st Contact Info) Description 06/23/2024 Orders Only [facility] Health Information Management [address] [place] [address] Scanning, Provider Social History Tobacco Use Types Packs/Day Years Used Date Smoking Tobacco: Former Cigarettes Smokeless Tobacco: Never Alcohol Use Standard Drinks/Week Comments No 0 (1 standard drink = 0.6 oz pur e alcohol) Comments Unknown Sex and Gender Information Value Date Recorded Sex Assigned at Not on file 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 Gender Identity Not on file Sexual Orientation Not on file documented as of this encounter Plan of Treatment Not on file documented as of this encounter Procedures Procedure Name Priority Date/Time Associated Diagnosis Comments SCAN - RADIOLOGY/IMAGING 06/23/2024 documented in this encounter Results * SCAN - RADIOLOGY/IMAGING (06/23/2024) Anatomical Region Laterality Modality Other us Provider Scanning Edited Result - Final documented in this encounter Visit Diagnoses Not on filedocumented in this encounter Care Teams Head Operator Sulfide Relationship Specialty Start Date End Date Carlos Wallace NP PCP - General 06/04/20 08/10/24 Crow Perry MD [address] [facility] [address] [facility] [address] [place] [address] PCP - General Family Medicine 08/11/24 documented as of this encounter
[2024-09-08 17:26] VITALS: BP 120/75; PULSE 82; RESP 18; TEMP 36.3; O2SAT 100
[2024-09-08 19:22] LABS: Hematocrit 39.6 % (37.0-47.0); Hemoglobin 12.6 g/dL (12.0-15.0); Immature Granulocyte Percent A 0.4 % (0-0.5); Lymphocytes Absolute Auto 2.15 K/mm3 (0.9-3.2); Mean Corpuscular HGB Conc 31.8 g/dl (32-36); Mean Corpuscular Hemoglobin 27.7 pg (26-34); Mean Corpuscular Volume 87.0 fl (80-100); Nucleated Red Blood Cells Absolute Auto 0.000 K/mm3 (0.0-0.012); Nucleated Red Blood Cells Perc 0.0 % (0.0-0.2); Platelet Count Result 216 k/mm3 (150-375); Red Blood Count 4.55 M/mm3 (4.2-5.4); White Blood Count 13.1 K/mm3 (4.5-10.0)
--- OUTSIDE RECORDS SUMMARY | 2024-09-08 19:42 | XMS_ITS | Encounter Summary ---
Author Organization [facility] Healthcare Address [address] [place] [address] Care Team Providers Care Men'S Locker Room Attendant Name Role Phone Crow Perry MD Primary Care Provider [phone] Encounter Details Date Type Department Care Team (Late st Contact Info) Description 09/08/2024 Telephone [facility] Medical Group Cardiology [address] [facility] [address] [place] [address] Debbie Gaitan NP [address] [facility] [address] [place] [address] Social History Tobacco Use Types Packs/Day Years Used Date Smoking Tobacco: Former Cigarettes Smokeless Tobacco: Never Alcohol Use Standard Drinks/Week Comments No 0 (1 standard drink = 0.6 oz pur e alcohol) Comments Unknown Sex and Gender Information Value Date Recorded Sex Assigned at Not on file 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
--- OUTSIDE RECORDS SUMMARY | 2024-09-08 19:42 | XMS_ITS | Referral Summary ---
Author Organization [facility] Address [address] [place] [address] Care Team Providers Care Paper Cutter Operator Name Role Phone Crow Perry MD Primary Care Provider [phone] Encounters Date Type Department Care Team Description 09/08/2024 Telephone [facility] Medical [facility] Cardiology [address] [place] [address] [address] [place] [address] Debbie Gaitan NP 08/29/2024 12:30 PM CDT Office Visit [facility]ient Care at [address] [address] Kimberlee Preciado NP Bilateral leg weakness (Primary Dx); Sacral wound, initial encounter 08/11/2024 1:30 PM CDT Office Visit [facility] Cardiology [address] [place] [address] Debbie Gaitan NP Carotid atherosclerosis, left (Primary Dx); Hypotension due to drugs; Sinus tachycardia; Hospital discharge follow-up; Dietary counseling 07/12/2024 12:55 PM CDT Ancillary Procedure [facility] Medical [facility] Imaging at [address] [address] Acute pain of left shoulder 07/12/2024 12:50 PM CDT Ancillary Procedure [facility] Imaging at [address] [address] Acute pain of left shoulder 07/12/2024 12:15 PM CDT Office Visit [facility] Convenient Care at [address] [address] Peggy Allen PA Acute pain of left shoulder (Primary Dx); Acute pain of right knee; Fall, initial encounter; 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 T: Report ID: [id number] Reading Location: [id number] Procedure Note Smooth Fernandez MD - 07/12/2024 [...] by Smooth Fernandez M.D. T: Report ID: [id number] Reading Location: [place] [address] Peggy RAMON IMG XR PROCEDURES Final Result [...] by Smooth Fernandez M.D. T: Report ID: [id number] Reading Location: [id number] Procedure Note Smooth Fernandez MD - 07/12/2024 [...] by Smooth Fernandez M.D. T: Report ID: [id number] Reading Location: [id number] Peggy RAMON IMG XR PROCEDURES Final Result * SCAN - LABS (06/29/2024) Provider Scanning Final Result * Cardiology Document Scan (06/27/2024 4:01 PM CDT) Anatomical Region Laterality Modality Other Nica Jaffe NP CV CARDIAC SERVICES PROCEDUR ES Final Result * SCAN - RADIOLOGY/IMAGING (06/23/2024) Anatomical Region Laterality Modality Other us Provider Scanning Edited Result - Final * (ABNORMAL) Lipid panel (01/12/2023 7:51 AM WORK CAR OPERATOR) SCRIBED Cholesterol, Total 122 0 - 200 EXTERNAL LAB SCRIBED HDL 41 40 - 100 EXTERNAL LAB SCRIBED LDL 51 0 - 100 EXTERNAL LAB SCRIBED Triglycerides 253(A) 0 - 150 EXTERNAL LAB Blood 01/12/2023 7:51 AM WORK CAR OPERATOR us Historical Provider LAB BLOOD ORDERABLES Aubree fagan Result EXTERNAL LAB from Last 3 Months or Most Recently Relevant to Health Maintenance Insurance CHOICE PRF PPO PR [facility] Care Teams Paper Cutter Operator Relationship Specialty Start Date End Date Crow Perry MD [address] [facility] [address] [place] [address] PCP - General Family Medicine 08/11/24
--- OUTSIDE RECORDS SUMMARY | 2024-09-08 19:42 | XMS_ITS | Clinical Summary ---
Author Organization [facility] Address [address] [place] [address] Care Team Providers Care Bindery Machine Feeder Offbearer Name Role Phone Crow Perry MD Primary Care Provider [phone] Allergies Active Allergy Reactions Criticality Noted Date [...] Type Department Care Team Description 09/08/2024 Telephone [facility] Cardiology [address] [facility] [address] [place] [address] Debbie Gaitan NP 08/29/2024 12:30 PM CDT Office Visit [facility] at [address] [address] Kimberlee Preciado NP Bilateral leg weakness (Primary Dx); Sacral wound, initial encounter 08/11/2024 1:30 PM CDT Office Visit [facility] Cardiology [address] [facility] [address] [place] [address] Debbie Gaitan NP Carotid atherosclerosis, left (Primary Dx); Hypotension due to drugs; Sinus tachycardia; Hospital discharge follow-up; Dietary counseling 07/12/2024 12:55 PM CDT Ancillary Procedure [facility] Imaging at [address] [address] Acute pain of left shoulder 07/12/2024 12:50 PM CDT Ancillary Procedure [facility] Imaging at [address] [phone] Acute pain of left shoulder 07/12/2024 12:15 PM CDT Office Visit [facility] Convenient Care at [address] [phone] Peggy Allen PA Acute pain of left shoulder (Primary Dx); Acute pain of right knee; Fall, initial encounter; 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 T: Report ID: [id number] Reading Location: [id number] Procedure Note Smooth Fernandez MD - 07/12/2024 [...] by Smooth Fernandez M.D. T: Report ID: [id number] Reading Location: [id number] Peggy RAMON IMG XR PROCEDURES Final Result [...] by Smooth Fernandez M.D. T: Report ID: [id number] Reading Location: [id number] Procedure Note Smooth Fernandez MD - 07/12/2024 [...] by Smooth Fernandez M.D. T: Report ID: [id number] Reading Location: [id number] Peggy RAMON IMG XR PROCEDURES Final [...] * (ABNORMAL) Lipid panel (01/12/2023 7:51 AM DRUG SAFETY COORDINATOR) SCRIBED Cholesterol, Total 122 0 - 200 EXTERNAL LAB SCRIBED HDL 41 40 - 100 EXTERNAL LAB SCRIBED LDL 51 0 - 100 EXTERNAL LAB SCRIBED Triglycerides 253(A) 0 - 150 EXTERNAL LAB Blood 01/12/2023 7:51 AM DRUG SAFETY COORDINATOR Historical Provider MD LAB BLOOD ORDERABLES Aubree l Result EXTERNAL LAB from Last 3 Months or Most Recently Relevant to Health Maintenance [place] [facility] Care Teams Bindery Machine Feeder Offbearer Relationship Specialty Start Date End Date Crow Perry MD [address] [facility] [address] [place] [address] PCP - General Family Medicine 08/11/24
--- OUTSIDE RECORDS SUMMARY | 2024-09-08 19:42 | XMS_ITS | Encounter Summary ---
Author Organization [facility] Healthcare Address [address] [place] [address] Care Team Providers Care It Programmer Analyst Name Role Phone Carlos Wallace NP Primary Care Provider [phone] Crow Perry MD Primary Care Provider [phone] Encounter Details Date Type Department Care Team (Late st Contact Info) Description 06/23/2024 Orders Only [facility] [place] Information Management [address] [place] [address] Scanning, Provider Social History Tobacco Use Types Packs/Day Years Used Date Smoking Tobacco: Former Cigarettes Smokeless Tobacco: Never Alcohol Use Standard Drinks/Week Comments No 0 (1 standard drink = 0.6 oz pur e alcohol) Comments Unknown Sex and Gender Information Value Date Recorded Sex Assigned at Not on file 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
[2024-09-08 19:46] LABS: Alanine Aminotransferase 117 U/L (6-35); Albumin Level 3.9 g/dL (3.5-5.1); Alkaline Phosphatase 70 U/L (38-126); Anion Gap 9 mmol/L (4-12); Aspartate Amino Transferase 61 U/L (14-36); Bilirubin,Total 0.6 mg/dL (0.2-1.3); Blood Urea Nitrogen 20 mg/dL (7-17); Calcium 9.7 mg/dL (8.4-10.2); Carbon Dioxide 21 mmol/L (22-30); Chloride 105 mmol/L (98-107); Estimated CRCL calculation 71 ml/min; Estimated Glomerular Filt Rate > 60; Glucose 100 mg/dL (65-110); Potassium 3.8 mmol/L (3.4-5.0); Sodium 135 mmol/L (137-145); Total Protein 6.7 g/dL (6.3-8.2)
[2024-09-08 19:46] LABS: Add Urine Microscopic? YES; Appearance Urine Cloudy (Clear); Glucose Urine UA Negative (Negative); Leukocyte Esterase Ur Trace LEU/UL (Negative); Nitrate Urine Negative (Negative); Non Pathogenic Casts 0-2; Specific Grav Ur 1.005 (1.001-1.035)
--- NOTE | 2024-09-08 19:47 | ED.PSYCH ---
HPI - Psych General Chief Complaint: Psychiatric Symptoms Stated Complaint: acting manic Time Seen by Provider: 09/08/24 19:06 Source: patient, family and RN notes reviewed Mode of arrival: EMS Limitations: no limitations History of Present Illness HPI Narrative: Patient presents with report of an episode of feeling manic but also feeling drunk or hi. EMS noted that at home she was rolling on the floor. She has been taking her daily medications. She is on escitalopram for anxiety and has been taking this for years without any changes in dose. She notes earlier in the day she was at the store and felt fine. This episode lasted for a little over an hour and well in the emergency department she developed a headache. Other than the headache she feels fine now. She was recently discharged from the hospital for rhabdomyolysis. She states she continues to have some weakness in her leg. Lives with her son is not having similar symptoms. Has not consumed any alcohol recreational drugs today. She is feeling sad as she recently had a of a family member that occurred on Thursday but since that incident had not had any episodes like what she experienced today. Denies any SI, HI, auditory or visual hallucinations. She notes that her headaches typically respond ibuprofen. She denies any photophobia with this headache although she does state that in general her eyes are very sensitive and because of this she often wears sunglasses. Related Data Home Medications ?Medication ?Instructions ?Recorded ?Confirmed ?Last Taken ?Type aspirin 81 mg capsule 81 mg PO DAILY 12/05/20 08/29/24 08/28/24 History rosuvastatin 40 mg tablet 40 mg PO DAILY 12/05/20 08/29/24 08/28/24 History albuterol sulfate 2.5 mg/3 mL 2.5 mg inhalation Q6H PRN 03/28/21 08/29/24 09/21/22 History (0.083 %) solution for nebulization Shortness Of Breath Or Wheezing ergocalciferol (vitamin D2) 1,250 1,250 mcg PO WEEKLY 03/28/21 08/29/24 06/06/24 History mcg (50,000 unit) capsule trazodone 50 mg tablet 50 mg PO QHS PRN Insomnia 03/28/21 08/29/24 06/11/24 History hydroxychloroquine 200 mg tablet 200 mg PO .q12hr 07/08/29/24 08/29/24 History Afrin (oxymetazoline) 1 puff intranasal TID PRN 04/06/23 08/29/24 06/12/24 History Congestion ibuprofen 1,600 mg PO BID PRN Headache 04/06/23 08/29/24 06/11/24 History cetirizine 10 mg tablet 10 mg PO DAILY 06/13/24 08/29/24 06/12/24 History cyclobenzaprine 5 mg tablet 5 mg PO TID PRN muscle pain 06/13/24 08/29/24 06/11/24 History dulaglutide 3 mg/0.5 mL 3 mg subcut WEEKLY 06/13/24 08/29/24 08/22/24 History subcutaneous pen injector (Trulicity) escitalopram oxalate 10 mg tablet 10 mg PO DAILY 06/13/24 08/29/24 06/11/24 History famotidine 20 mg tablet 20 mg PO BID PRN acid reflux 06/13/24 08/29/24 06/11/24 History ferrous sulfate 325 mg (65 mg 325 mg PO BID PRN menstrual 06/13/24 08/29/24 06/10/24 History iron) tablet (FeroSul) bleeding fluticasone propionate 50 1 spray intranasal DAILY PRN 06/13/24 08/29/24 Unknown History mcg/actuation nasal allergy symptoms spray,suspension hydrocodone 7.5 mg-acetaminophen 1 tablet PO TID PRN pain 06/13/24 08/29/24 06/11/24 History 325 mg tablet insulin lispro 100 unit/mL 50 unit subcut TIDWM 06/13/24 08/29/24 08/29/24 History subcutaneous pen metformin 500 mg tablet,extended 500 mg PO BID 06/13/24 08/29/24 08/29/24 History release 24 hr pregabalin 200 mg capsule 200 mg PO DAILY 06/13/24 08/29/24 06/12/24 History progesterone micronized 100 mg 100 mg PO QPM 06/13/24 08/29/24 06/11/24 History capsule lisinopril 40 mg tablet 40 mg PO DAILY 08/29/24 08/29/24 Unknown History Allergies Allergy/AdvReac Type Severity Reaction Status Date / Time atenolol Allergy Intermediate Chest Pain Verified 06/24/24 09:52 [facility] Past Medical History Medical History (Updated 09/08/24 @ 21:32 by Katarina Angel MD) Anxiety Proximal myopathy Lower extremity edema Dyspnea on exertion Pneumonia Rheumatoid arthritis (normal spontaneous vaginal delivery) x2 Status post hysteroscopy 2015 and 2020 Asthma Obesity Iron deficiency anemia Elective Anxiety and depression GERD (gastroesophageal reflux disease) HTN (hypertension) High triglycerides HLD (hyperlipidemia) Diabetes Surgical History Surgical History S/P endometrial ablation 2017 Family History Family History Mother Atrial fibrillation History of open heart surgery Family history of cataracts Hypertension Asthma Grandparent Family history of cardiovascular disease Family history of Alzheimer's disease Family history of coronary artery disease Heart murmur Sibling Heart murmur Social History Social History (Updated 09/08/24 @ 19:59 by Katarina Angel MD) Smoking packs per day: 1 Smoking cigarettes per day: 20.0 Years smoked: 20 Smoking pack-years: 20.00 Smoking status: Former smoker Tobacco type: cigarettes Smoking end date: 02/16/02 Alcohol intake: never Drinks per week: 2 Substance use: never Do You Feel Safe in your Home?: Yes Lack of Transportation: No Lack of Food: Never True Current Housing: I Have Housing Concerned About Future Housing: No Difficulty Paying Gas/Electric Bills: No Difficulty Paying for Meds: No Currently Unemployed: No Education: High School Diploma/GED Difficulty w/ Childcare or Family Care: No Living arrangements: with family Gender identity (if verbalized by the patient): Female Spiritual care concerns: No Agree to blood products: Yes Exam Narrative: GENERAL: Well-appearing, well-nourished, and in no acute distress. HEAD: Normocephalic, atraumatic. EYES: Non injected, non icteric ENT: Nares clear, no rhinorrhea or epistaxis. Gross auditory acuity intact. NECK: Supple. No meningismus. CHEST: Speaking in full sentences. No respiratory distress. HEART: Regular rate and rhythm. . ABDOMEN: Soft, nondistended. No rigidity or guarding. Not peritoneal EXTREMITIES: Normal range of motion. No lower extremity edema. SKIN: Warm, dry, no rash. NEURO: No focal deficits. Alert and oriented. Answering questions. Following commands. Normal speech without aphasia or dysarthria. PSYCH: Appearance: Well kempt. Behavior: Calm, good eye contact, in no acute distress. Mood is congruent with affect. Speech: Appropriate rate, quantity and volume. Thought process: Linear. Denies SI/HI. Denies Auditory/visual hallucinations. Does not appear to be responding to internal stimuli. Course Vital Signs Vital signs: Vital Signs Temperature 97.4 F L 09/08/24 17:26 Pulse Rate 82 09/08/24 17:26 Respiratory Rate 18 09/08/24 17:26 Blood Pressure 120/75 09/08/24 17:26 Pulse Oximetry 100 09/08/24 17:26 Oxygen Delivery Room Air 09/08/24 17:26 Temperature 97.4 F L 09/08/24 17:26 Pulse Rate 82 09/08/24 17:26 Respiratory Rate 18 09/08/24 17:26 Blood Pressure 120/75 09/08/24 17:26 Pulse Oximetry 100 09/08/24 17:26 Oxygen Delivery Room Air 09/08/24 17:26 MDM - Psych MDM Narrative Medical decision making narrative: Patient presents with an episode of feeling both manic but also high or drunk. She denies any alcohol consumption or recreational drug use. She feels fine now from that perspective although she states this has never happened before. She does have a history of anxiety for which she has been on a dose of escitalopram without any changes. She did recently have a of a family member on Thursday and has been feeling sad because of this. Denies any SI, HI, or auditory or visual hallucinations. She did develop a headache while in the emergency department. She notes that her headaches typically respond to ibuprofen. In the emergency department they are afebrile with vital signs within normal limits. Transaminitis, similar to discharge values. Patient was recently hospitalized for rhabdomyolysis. CPK only 184. She confirms she has a primary care physician although she lists a different name and the 1 in the discharge section. She also had outpatient labs already drawn today which showed similar transaminitis which is being monitored and followed up on. I do believe that patient is likely experiencing grief response. She is otherwise appropriate. We discussed the option of having our psych/crisis team come to provided resources and while she was open to this, she is concerned because her ride is elderly and has to get home. Alternatively, she feels very comfortable with being provided a list of resources and trying to call on her own tomorrow and/or discussing this with her primary care physician at her upcoming appointment. She knows that she can respond at any time if this happens again or if she has new/worsening/different symptoms. Differential Diagnosis Differential diagnosis: Likely acute psychosis, bipolar disorder, depression, acute anxiety and other (Adjustment disorder, grief reaction, thyroid abnormalities, rhabdomyolysis) Lab Data Attestation: I reviewed the patient's lab results. Lab results narrative: Leukocytosis 09/08/24 19:17 09/08/24 19:17 Labs: Lab Results 09/08/24 09/08/24 09/08/24 Range/Units 19:16 19:17 19:37 WBC 13.1 H (4.5-10.0) K/mm3 RBC 4.55 (4.2-5.4) M/mm3 Hgb 12.6 (12.0-15.0) g/dL Hct 39.6 (37.0-47.0) % MCV 87.0 D (80-100) fl MCH 27.7 (26-34) pg MCHC 31.8 L (32-36) g/dl RDW 14.7 H (11.5-14.5) % Plt Count 216 D (150-375) k/mm3 MPV 9.6 (7.4-10.4) fl Immature Gran % (Auto) 0.4 (0-0.5) % Neut % (Auto) 70.1 (45.5-73.1) % Lymph % (Auto) 16.4 L (18.3-44.2) % Alfalfa % (Auto) 10.7 H (2.6-8.5) % Eos % (Auto) 2.1 (0-4.4) % Baso % (Auto) 0.3 (0.2-1.2) % Lymph # (Auto) 2.15 (0.9-3.2) K/mm3 Alfalfa # (Auto) 1.4 H (0.1-0.6) K/mm3 Eos # (Auto) 0.3 (0-0.3) K/mm3 Baso # (Auto) 0.0 (0.0-0.1) K/mm3 Abs Immat Gran (auto) 0.05 H (0.00-0.031) K/mm3 Absolute Neuts (auto) 9.2 H (1.3-6.7) K/mm3 Absolute Nucleated RBC 0.000 (0.0-0.012) K/mm3 Nucleated RBC % 0.0 (0.0-0.2) % Sodium 135 L (137-145) mmol/L Potassium 3.8 (3.4-5.0) mmol/L Chloride 105 (98-107) mmol/L Carbon Dioxide 21 L (22-30) mmol/L Anion Gap 9 (4-12) mmol/L BUN 20 H (7-17) mg/dL Creatinine 0.95 (0.7-1.0) mg/dL Estim Creat Clear Calc 71 ml/min Estimated GFR > 60 (59 - ) Glucose 100 (65-110) mg/dL POC Capillary Glucose (65-105) mg/dl Calcium 9.7 (8.4-10.2) mg/dL Total Bilirubin 0.6 (0.2-1.3) mg/dL AST 61 H (14-36) U/L ALT 117 H (6-35) U/L Alkaline Phosphatase 70 (38-126) U/L Total Creatine Kinase 184 H (30-135) U/L Total Protein 6.7 (6.3-8.2) g/dL Albumin 3.9 (3.5-5.1) g/dL TSH (Reflex) 0.576 (0.465-4.68) uIU/mL Urine Color Yellow (Yellow) Urine Appearance Cloudy H (Clear) Urine pH 5.5 (5.0-9.0) Ur Specific [place] 1.005 (1.001-1.035) Urine Protein Negative (Negative) mg/dL Urine Glucose (UA) Negative (Negative) mg/dL Urine Ketones Negative (Negative) mg/dL Ur Blood (Man) Negative (Negative) Urine Nitrate Negative (Negative) Urine Bilirubin Negative (Negative) Urine Urobilinogen 0.2 (<2.0) mg/dL Leukocyte Esterase Rfl Trace H (Negative) ROLDAN/UL Urine RBC 0-2 (0-2) /hpf Urine WBC 0-5 (0-3) /hpf Ur Squamous Epith Cells None seen (Few) /hpf Urine Bacteria None seen /hpf Urine Casts 0-2 POC Urine HCG, Qual (Negative) Urine Opiates Screen Negative (Negative) Urine Methadone Screen Negative (Negative) Ur Barbiturates Screen Negative (Negative) Ur Phencyclidine Scrn Negative (Negative) Ur Amphetamine Screen Negative (Negative) U Benzodiazepines Scrn Negative (Negative) Urine Cocaine Screen Negative (Negative) U Cannabinoids Screen Negative (Negative) Ethyl Alcohol < 10 (<10) mg/dL 09/08/24 09/08/24 Range/Units 20:46 21:00 WBC (4.5-10.0) K/mm3 RBC (4.2-5.4) M/mm3 Hgb (12.0-15.0) g/dL Hct (37.0-47.0) % MCV (80-100) fl MCH (26-34) pg MCHC (32-36) g/dl RDW (11.5-14.5) % Plt Count (150-375) k/mm3 MPV (7.4-10.4) fl Immature Gran % (Auto) (0-0.5) % Neut % (Auto) (45.5-73.1) % Lymph % (Auto) (18.3-44.2) % Alfalfa % (Auto) (2.6-8.5) % Eos % (Auto) (0-4.4) % Baso % (Auto) (0.2-1.2) % Lymph # (Auto) (0.9-3.2) K/mm3 Alfalfa # (Auto) (0.1-0.6) K/mm3 Eos # (Auto) (0-0.3) K/mm3 Baso # (Auto) (0.0-0.1) K/mm3 Abs Immat Gran (auto) (0.00-0.031) K/mm3 Absolute Neuts (auto) (1.3-6.7) K/mm3 Absolute Nucleated RBC (0.0-0.012) K/mm3 Nucleated RBC % (0.0-0.2) % Sodium (137-145) mmol/L Potassium (3.4-5.0) mmol/L Chloride (98-107) mmol/L Carbon Dioxide (22-30) mmol/L Anion Gap (4-12) mmol/L BUN (7-17) mg/dL Creatinine (0.7-1.0) mg/dL Estim Creat Clear Calc ml/min Estimated GFR (59 - ) Glucose (65-110) mg/dL POC Capillary Glucose 134 H (65-105) mg/dl Calcium (8.4-10.2) mg/dL Total Bilirubin (0.2-1.3) mg/dL AST (14-36) U/L ALT (6-35) U/L Alkaline Phosphatase (38-126) U/L Total Creatine Kinase (30-135) U/L Total Protein (6.3-8.2) g/dL Albumin (3.5-5.1) g/dL TSH (Reflex) (0.465-4.68) uIU/mL Urine Color (Yellow) Urine Appearance (Clear) Urine pH (5.0-9.0) Ur Specific [place] (1.001-1.035) Urine Protein (Negative) mg/dL Urine Glucose (UA) (Negative) mg/dL Urine Ketones (Negative) mg/dL Ur Blood (Man) (Negative) Urine Nitrate (Negative) Urine Bilirubin (Negative) Urine Urobilinogen (<2.0) mg/dL Leukocyte Esterase Rfl (Negative) ROLDAN/UL Urine RBC (0-2) /hpf Urine WBC (0-3) /hpf Ur Squamous Epith Cells (Few) /hpf Urine Bacteria /hpf Urine Casts POC Urine HCG, Qual Negative (Negative) Urine Opiates Screen (Negative) Urine Methadone Screen (Negative) Ur Barbiturates Screen (Negative) Ur Phencyclidine Scrn (Negative) Ur Amphetamine Screen (Negative) U Benzodiazepines Scrn (Negative) Urine Cocaine Screen (Negative) U Cannabinoids Screen (Negative) Ethyl Alcohol (<10) mg/dL Discharge Plan Discharge Clinical Impression: Leukocytosis, Transaminitis, Grief Patient Disposition: Home Condition: Stable Instructions: Antibiotic Form, Grief and Loss (ED), Transaminitis (ED) Additional Instructions: Keep your upcoming follow-up appointment her primary care physician.. They likely have several options if you would like to pursue mental health support/grief support. In addition some resources have been provided to you. Continue taking your medications as prescribed. Return to the emergency department with any new or worsening symptoms. Patient Language: [place] Prescriptions: No Action trazodone 50 mg tablet 50 mg PO QHS PRN (Reason: Insomnia) albuterol sulfate 2.5 mg /3 mL (0.083 %) solution for nebulization 2.5 mg inhalation Q6H PRN (Reason: Shortness Of Breath Or Wheezing) ergocalciferol (vitamin D2) 1,250 mcg (50,000 unit) capsule 1,250 mcg PO WEEKLY Rx Instructions: Weekly on Mondays fluticasone propion-salmeterol [Advair HFA] 230-21 mcg/actuation HFA aerosol inhaler 2 puff inhalation Q12HRT 30 Days Qty: 60 6RF rosuvastatin 40 mg Tablet 40 mg PO DAILY aspirin 81 mg Capsule 81 mg PO DAILY hydroxychloroquine 200 mg tablet 200 mg PO .q12hr Afrin (oxymetazoline) 1 puff intranasal TID PRN (Reason: Congestion) ibuprofen 800 mg tablet 1,600 mg PO BID PRN (Reason: Headache) cetirizine 10 mg tablet 10 mg PO DAILY famotidine 20 mg tablet 20 mg PO BID PRN (Reason: acid reflux) hydrocodone-acetaminophen 7.5-325 mg tablet 1 tablet PO TID PRN (Reason: pain) ferrous sulfate [FeroSul] 325 mg (65 mg iron) tablet 325 mg PO BID PRN (Reason: menstrual bleeding ) fluticasone propionate 50 mcg/actuation spray,suspension 1 spray INTRANASAL DAILY PRN (Reason: allergy symptoms) metformin 500 mg tablet extended release 24 hr 500 mg PO BID progesterone micronized 100 mg capsule 100 mg PO QPM insulin lispro 100 unit/mL insulin pen 50 unit SUBCUT TIDWM escitalopram oxalate 10 mg tablet 10 mg PO DAILY cyclobenzaprine 5 mg tablet 5 mg PO TID PRN (Reason: muscle pain) pregabalin 200 mg capsule 200 mg PO DAILY Trulicity 3 mg/0.5 mL pen injector 3 mg SUBCUT WEEKLY Rx Instructions: Weekly on Mondays hydrochlorothiazide 25 mg Tablet 25 mg PO QAM Qty: 30 0RF insulin glargine [Lantus Solostar U-100 Insulin] 100 unit/mL (3 mL) insulin pen 24 unit subcut QPM Qty: 15 0RF (DME) blood-glucose meter [[employer] Verio Flex meter[place] [facility] [place] 1 0[place] Rx Instructions: May substitute to in-stock meter and/or covered by insurance. Use As Directed (DME) OneTouch Verio test strips Strip Qty: 1 0RF Rx Instructions: May substitute to in-stock and/or covered by insurance strips. Use As Directed (DME) pen needle, diabetic 32 gauge x 1/4 Needle Qty: 1 0RF Rx Instructions: As Directed (DME) pen needle, diabetic 32 gauge x 5/32 Needle Qty: 1 0RF Rx Instructions: As Directed (DME) lancets [OneTouch Delica Plus Lancet] 30 gauge misc Qty: 1 0RF Rx Instructions: May substitute to in-stock and/or covered by insurance lancets. Use As Directed (DME) insulin syringe,safety needle 0.5 mL 31 gauge x 5/16 Syringe Qty: 1 0RF Rx Instructions: As Directed (DME) insulin syringe,safety needle 1 mL 32 gauge x 5/16 Syringe Qty: 1 0RF Rx Instructions: As Directed ondansetron 4 mg tablet,disintegrating 4 mg PO Q8H PRN (Reason: nausea and vomiting) Qty: 60 1RF magnesium oxide 400 mg (241.3 mg magnesium) tablet 400 mg PO HS Qty: 60 0RF lisinopril 40 mg tablet 40 mg PO DAILY carvedilol [Coreg] 25 mg Tablet 25 mg PO Q12HR Qty: 60 0RF prednisone 10 mg tablet 10 mg PO DAILY Qty: 30 0RF Rx Instructions: 4Tx3d, 3Yx3d, 2Tx3d, 1Tx3d Follow-up/Referrals: Geetha Valenzuela MD [Primary Care Provider] - Stand Alone Forms: Work/School Release IP Time of Disposition: 21:32
[2024-09-08 20:17] LABS: Thyroid Stimulating Hormone Reflex 0.576 uIU/mL (0.465-4.68)
[2024-09-08 20:27] LABS: Cannabinoid Screen Urine Negative (Negative)
[2024-09-08] MEDS: IBUPROFEN 600 MG TABLET PO (20:44)
[2024-09-08 20:46] LABS: Creatine Kinase 184 U/L (30-135)
[2024-09-08 21:21] LABS: BEDSIDEPREGUCG Negative (Negative)
[2024-09-08 21:45] VITALS: BP 138/76; PULSE 79; RESP 13; O2SAT 99
== END 2024-09-08 21:47 | disposition home or self-care (01) ==
PROVIDERS: Emergency Provider Student in an Organized Health Care Education/Training Program; PCP Family Medicine
DX: D72.829 Elevated white blood cell count, unspecified (principal); R74.01 Elevation of levels of liver transaminase levels; F43.21 Adjustment disorder with depressed mood; Z79.82 Long term (current) use of aspirin; Z79.4 Long term (current) use of insulin; J45.909 Unspecified asthma, uncomplicated; K21.9 Gastro-esophageal reflux disease without esophagitis; I10 Essential (primary) hypertension; E78.5 Hyperlipidemia, unspecified; E11.9 Type 2 diabetes mellitus without complications; F41.8 Other specified anxiety disorders; Z87.891 Personal history of nicotine dependence
CPT/HCPCS: 36415; 80053; 80307; 81001; 81025; 82077; 82550; 82948; 84443; 85025; 99283; A9270